=== PATIENT | female | born 1950 | race Caucasian/White ===

== ENCOUNTER 2021-11-22 16:14 | Inpatient (IN) | payer MEDICARE, SELFPAY ==
--- NOTE | ~2021-11-22 | CT_ITS ---
EXAMINATION: CT abdomen pelvis wo con DATE: 11/22/2021 18:43 INDICATION: abd pain TECHNIQUE: Computed tomography (CT) of the abdomen and pelvis was performed without intravenous contr ast. Automated exposure control and iterative reconstruction technique were employed. The dose-length product was 1420.87 mGy-cm. COMPARISON: None. FINDINGS: Lower thorax: Unremarkable Liver: Normal. Biliary/Gallbladder: Cholelithiasis. No bile duct dilation. Pancreas: No mass or duct dilation. Fatty infiltrated. Spleen: Normal. Adrenals:No mass. Kidneys: No mass, stone, or hydronephrosis. Bilateral atrophy and mild perinephric stranding. GI tract: No small or large bowel dilation. Appendix not visualized. Pericolonic inflammatory change with multiple inflamed diverticuli at the hepatic flexure and proximal descending colon. Subtle infla mmatory change involving several diverticuli in the mid sigmoid colon. Mesentery/Peritoneum: No ascites, mass, or free air. Retroperitoneum: No mass. Atherosclerotic abdominal aortic and/or arterial calcifications. Pelvis: Pelvic organs are within normal limits. Soft Tissues: Soft tissues and body wall unremarkable. Bones: No acute osseous finding. IMPRESSION: Acute uncomplicated diverticulitis at the hepatic flexure. A focus of mild, early or resolving divert iculitis may also be present in the mid sigmoid colon. Reviewed, dictated and finalized at [facility]. IMPRESSION: Acute uncomplicated diverticulitis at the hepatic flexure. A focus of mild, ear ly or resolving diverticulitis may also be present in the mid sigmoid colon.
--- NOTE | ~2021-11-22 | XR_ITS ---
EXAMINATION: XR chest 2V DATE: 11/22/2021 17:23 INDICATION: Cough TECHNIQUE: AP and lateral views of the chest are obtained. COMPARISON: 06/21/2011 FINDINGS: The lungs are free of acute opacities. There is no pleural effusion or pneumothorax. The ca rdiomediastinal silhouette is normal. There is moderate thoracic spondylosis. IMPRESSION: 1. No acute cardiopulmonary abnormality. Reviewed, dictated and finalized at location [facility].
[2021-11-22 16:28] VITALS: BP 111/73; PULSE 94; RESP 18; TEMP 36.6; O2SAT 98
[2021-11-22 16:55] LABS: Basophils Percent Auto 0.4 % (0.2-1.2); Eosinophils Absolute Auto 0.1 K/mm3 (0-0.3); Eosinophils Percent Auto 1.3 % (0-4.4); Hematocrit 37.7 % (37.0-47.0); Hemoglobin 12.6 g/dL (12.0-15.0); Immature Granulocyte Absolute 0.07 K/mm3 (0.00-0.031); Immature Granulocyte Percent A 0.9 % (0-0.5); Lymphocytes Absolute Auto 0.24 K/mm3 (0.9-3.2); Lymphocytes Percent Auto 3.2 % (18.3-44.2); Mean Corpuscular HGB Conc 33.4 g/dl (32-36); Mean Corpuscular Hemoglobin 31.2 pg (26-34); Mean Corpuscular Volume 93.3 fl (80-100); Monocytes Percent Auto 12.6 % (2.6-8.5); Neutrophils Absolute Auto 6.2 K/mm3 (1.3-6.7); Neutrophils Percent Auto 81.6 % (45.5-73.1); Platelet Count Result 227 k/mm3 (150-375); Red Blood Count 4.04 M/mm3 (4.2-5.4); Red Cell Distribution Width 12.8 % (11.5-14.5); White Blood Count 7.6 K/mm3 (4.5-10.0)
[2021-11-22 17:07] LABS: Alanine Aminotransferase 27 U/L (6-35); Albumin Level 3.9 g/dL (3.5-5.1); Alkaline Phosphatase 80 U/L (38-126); Anion Gap 13 mmol/L (8-16); Aspartate Amino Transferase 52 U/L (14-36); Bilirubin,Total 0.4 mg/dL (0.2-1.3); Blood Urea Nitrogen 49 mg/dL (7-17); Calcium 8.6 mg/dL (8.4-10.2); Carbon Dioxide 22 mmol/L (22-30); Chloride 99 mmol/L (98-107); Estimated CRCL calculation 17 ml/min; Estimated Glomerular Filt Rate 12; Glucose 89 mg/dL (65-110); Lipase 80 U/L (23-300); Potassium 4.2 mmol/L (3.4-5.0); Sodium 134 mmol/L (137-145)
--- NOTE | 2021-11-22 17:47 | ED.GENADULT ---
HPI - General Adult General Chief complaint: Nausea/Vomiting/Diarrhea Stated complaint: sinus drainage, and diarrhea x 2months Time Seen by Provider: 11/22/21 17:29 Source: RN notes reviewed History of Present Illness HPI narrative: Patient presents emergency room from home for diarrhea. States that she has been having diarrhea for the past 2 months she states she is having proximally 4-5 episodes of loose stools a day. She states that is associated with abdominal cramping patient states here in the emergency department today because over the past several days she has also been having some shortness of breath with exertion she states has been associated with rhinorrhea she denies any fevers or chills ear pain sore throat or any other symptoms patient states she does not take any medication for the diarrhea Related Data Allergies Allergy/AdvReac Type Severity Reaction Status Date / Time No Known Allergies Allergy Mild Verified 11/22/21 19:52 Review of Systems Review of Systems: Gen.: Denies fevers or chills Eyes: Denies eye pain or visual change ENT: Reports rhinorrhea Respiratory: Reports shortness of breath with exertion denies cough CV: Denies chest pain or palpitations GI: Reports abdominal cramping denies nausea, emesis reports diarrhea Musculoskeletal: Denies back pain or muscle pain Neuro: Denies numbness, tingling, weakness or focal weakness Skin: Denies rash Except as documented, all other systems reviewed and negative [facility] Past Medical History Medical History (Updated 11/22/21 @ 19:57 by Jaiden Mendoza DO) Hypertension Family History Family History (Updated 02/13/18 @ 16:14 by DOCTOR UNKNOWN) Other Family history of malignant neoplasm Social History Social History (Updated 11/22/21 @ 17:48 by Jaiden Mendoza DO) Smoking status: Never smoker Exam Narrative: APPEARANCE: No acute distress, nontoxic, resting in bed EYES: EOMI HEENT: Normocephalic, atraumatic, bilateral turbinates boggy erythema exudate posterior pharynx airway patent RESPIRATORY: No respiratory distress Clear to auscultation bilaterally with no rhonchi wheezing or rales. CARDIOVASCULAR: Regular rate and rhythm without murmurs rubs or gallops. ABDOMINAL: Soft, n nondistended tender palpation right upper quadrant right lower quadrant no tenderness in lateral quadrant left lower quadrant no rebound or guarding MUSCULOSKELETAl: Moves all extremities. No clubbing, cyanosis or edema. NEURO: Awake and alert. Following commands, speech normal, no focal deficits SKIN:: Warm, dry. No rashes lesions or abrasions PSYCHIATRIC: Normal affect/mood, Course Course Emergency Course: Discussed with Dr. Butler agrees with admission Discussed with patient and family results of workup and diagnosis. Discussed need for admission. Patient and family understand and agree to current treatment plan Vital Signs Vital signs: Vital Signs Temperature 97.9 F 11/22/21 16:28 Pulse Rate 94 11/22/21 16:28 Respiratory Rate 18 11/22/21 16:28 Blood Pressure 111/73 11/22/21 16:28 Pulse Oximetry 98 11/22/21 16:28 Oxygen Delivery Room Air 11/22/21 16:28 Temperature 97.9 F 11/22/21 16:28 Pulse Rate 95 11/22/21 19:44 Respiratory Rate 18 11/22/21 19:44 Blood Pressure 117/74 11/22/21 19:44 Pulse Oximetry 96 11/22/21 19:44 Oxygen Delivery Room Air 11/22/21 16:28 Medical Decision Making Vital Signs Vital Signs: Vital Signs Temperature 97.9 F 11/22/21 16:28 Pulse Rate 94 11/22/21 16:28 Respiratory Rate 18 11/22/21 16:28 Blood Pressure 111/73 11/22/21 16:28 Pulse Oximetry 98 11/22/21 16:28 Oxygen Delivery Room Air 11/22/21 16:28 Temperature 97.9 F 11/22/21 16:28 Pulse Rate 95 11/22/21 19:44 Respiratory Rate 18 11/22/21 19:44 Blood Pressure 117/74 11/22/21 19:44 Pulse Oximetry 96 11/22/21 19:44 Oxygen Delivery Room Air 11/22/21 16:28 Lab Data Result diagra
--- NOTE | 2021-11-22 17:50 | ECG_ITS ---
Measurements Intervals [place] Rate: 94 P: 25 NH: 181 QRS: 83 QRSD: 86 T: 11 QT: 358 QTc: 449 Interpretive Statements SINUS RHYTHM POSSIBLE ANTERIOR MYOCARDIAL INFARCTION , PROBABLY OLD Electronically Signed On 11-23-2021 10:51:20 CDT by Lico Chambers M.D.
[2021-11-22 17:57] LABS: Appearance Urine Slightly Cloudy (Clear); Bilirubin Urine 2+ (Negative); Blood Urine Negative (Negative); Color Urine Yellow (Yellow); Glucose Urine UA Negative (Negative); Ketones Urine 1+ mg/dL (Negative); Leukocyte Esterase Ur Negative LEU/UL (Negative); Nitrate Urine Negative (Negative); Protein Urine Negative (Negative); Urobilinogen Urine 0.2 mg/dL (<2.0)
[2021-11-22 18:03] LABS: Mucus Urine Rare /lpf; Squamous Epithelial Cell Urine Occasional /hpf (Few); WBC Urine 0-3 /hpf
[2021-11-22 18:06] LABS: Add Urine Microscopic? YES
[2021-11-22] MEDS: SODIUM CHLORIDE 0.9% IV 1,000 ML 999 ML IV CONT (18:09)
[2021-11-22 19:44] VITALS: BP 117/74; PULSE 95; RESP 18; O2SAT 96
[2021-11-22 19:50] LABS: SARS-CoV-2 RNA PCR Positive
[2021-11-22 20:55] VITALS: BMI 40.0
[2021-11-22 21:00] LABS: Thyroid Stimulating Hormone 0.388 uIU/mL (0.465-4.680)
[2021-11-23] VITALS (7 sets, daily range): BP systolic 90–128; BP diastolic 44–79; PULSE 78–97; RESP 16–20; TEMP 36.7–37.6; O2SAT 95–96
[2021-11-23 06:43] LABS: Basophils Percent Auto 0.4 % (0.2-1.2); Eosinophils Percent Auto 0.2 % (0-4.4); Hematocrit 32.1 % (37.0-47.0); Hemoglobin 10.6 g/dL (12.0-15.0); Immature Granulocyte Absolute 0.06 K/mm3 (0.00-0.031); Immature Granulocyte Percent A 1.1 % (0-0.5); Lymphocytes Absolute Auto 0.36 K/mm3 (0.9-3.2); Lymphocytes Percent Auto 6.7 % (18.3-44.2); Mean Corpuscular Hemoglobin 31.3 pg (26-34); Mean Corpuscular Volume 94.7 fl (80-100); Monocytes Absolute Auto 1.2 K/mm3 (0.1-0.6); Monocytes Percent Auto 21.3 % (2.6-8.5); Neutrophils Absolute Auto 3.8 K/mm3 (1.3-6.7); Neutrophils Percent Auto 70.3 % (45.5-73.1); Platelet Count Result 185 k/mm3 (150-375); Red Blood Count 3.39 M/mm3 (4.2-5.4); Red Cell Distribution Width 13.1 % (11.5-14.5); White Blood Count 5.4 K/mm3 (4.5-10.0)
[2021-11-23 06:50] LABS: Alanine Aminotransferase 22 U/L (6-35); Alkaline Phosphatase 62 U/L (38-126); Anion Gap 9 mmol/L (8-16); Aspartate Amino Transferase 38 U/L (14-36); Bilirubin,Total 0.2 mg/dL (0.2-1.3); Blood Urea Nitrogen 46 mg/dL (7-17); Calcium 7.9 mg/dL (8.4-10.2); Carbon Dioxide 21 mmol/L (22-30); Chloride 102 mmol/L (98-107); Estimated CRCL calculation 20 ml/min; Estimated Glomerular Filt Rate 15; Glucose 69 mg/dL (65-110); Potassium 3.9 mmol/L (3.4-5.0); Sodium 132 mmol/L (137-145)
[2021-11-23] MEDS: SODIUM CHLORIDE 0.9% IV 1,000 ML 125 ML IV CONT ×2 (08:44→20:46)
[2021-11-23] MEDS: METOPROLOL TARTRATE 50 MG TAB PO ×2 (09:07→21:13)
[2021-11-23] MEDS: POTASSIUM CHLORIDE 10 MEQ TABLET.ER PO (09:07)
[2021-11-23] MEDS: LEVOTHYROXINE SODIUM 75 MCG TABLET PO (09:08)
[2021-11-23] MEDS: hydroCHLOROthiazide 12.5 MG CAPSULE PO (09:08)
[2021-11-23] MEDS: PANTOPRAZOLE 40 MG TABLET PO ×2 (09:08→21:13)
[2021-11-23] MEDS: OLMESARTAN MEDOXOMIL 20 MG TABLET 40 MG PO (09:08)
--- NOTE | 2021-11-23 16:50 | PM.IMHP ---
H&P: HPI History of Present Illness Date/Time: 11/23/21 16:50 Chief Complaint: abdominal pain and diarrhea Narrative: ED-HPI narrative: Patient presents emergency room from home for diarrhea.? States that she has been having diarrhea for the past 2 months she states she is having proximally 4-5 episodes of loose stools a day.? She states that is associated with abdominal cramping patient states here in the emergency department today because over the past several days she has also been having some shortness of breath with exertion she states has been associated with rhinorrhea she denies any fevers or chills ear pain sore throat or any other symptoms patient states she does not take any medication for the diarrhea CT scan of the abdomen showed diverticulitis patient started on Zosyn, started on clear liquid, will gently hydrate the patient, and pain medication, will continue to monitor as patient's symptoms improved and further recommendation to follow. patient is also positive for COVID-19 patient states this see does not go anywhere, however her roomate nephew came to visit, he was last person she had seen, it seems her symptoms started few days, at rest patient is not requiring any oxygen, however does complain of shortness of breath with exertion, will monitor and place oxygen if needed, will not start dexamethasone at present time, unable to start remdesivir as patient kidney function is poor and her GFR is 20. Will continue to monitor, Review of Systems Review of Systems: Gen.: Denies fevers or chills Eyes: Denies eye pain or visual change ENT: Reports rhinorrhea Respiratory: Reports shortness of breath with exertion denies cough CV: Denies chest pain or palpitations GI: Reports abdominal cramping denies nausea, emesis reports diarrhea Musculoskeletal: Denies back pain or muscle pain Neuro: Denies numbness, tingling, weakness or focal weakness Skin: Denies rash Except as documented, all other systems reviewed and negative [facility] Past Medical History Medical History (Updated 11/22/21 @ 19:57 by Jaiden Mendoza DO) Hypertension Family History Family History (Updated 02/13/18 @ 16:14 by DOCTOR UNKNOWN) Other Family history of malignant neoplasm Social History Social History (Updated 11/22/21 @ 17:48 by Jaiden Mendoza DO) Smoking packs per day: 1 Smoking cigarettes per day: 20.0 Years smoked: 3 Smoking pack-years: 3.00 Smoking status: Former smoker Tobacco type: cigarettes Alcohol intake: never Substance use: never Spiritual care concerns: No Meds Home Medications and Allergies Home Medications Medication Instructions Recorded Confirmed Type esomeprazole magnesium 40 mg 1 cap PO 2XD 11/23/21 11/23/21 History capsule,delayed release (Nexium) levothyroxine 75 mcg tablet 1 tablet PO 1XD 11/23/21 11/23/21 History (Synthroid) metoprolol tartrate 50 mg tablet 1 tablet PO 2XD 11/23/21 11/23/21 History (Lopressor) montelukast 10 mg tablet 1 tablet PO 1XD 11/23/21 11/23/21 History (Singulair) olmesartan 40 1 tablet PO 1XD 11/23/21 11/23/21 History mg-hydrochlorothiazide 12.5 mg tablet (Benicar HCT) potassium chloride 10 mEq 1 tablet PO 1XD 11/23/21 11/23/21 History tablet,extended release (Klor-Con) trazodone 100 mg tablet 2 tablet PO 1XD 11/23/21 11/23/21 History Allergies Allergy/AdvReac Type Severity Reaction Status Date / Time No Known Allergies Allergy Mild Verified 11/22/21 19:52 Vital Signs Vital Signs - 24 hr 11/22/21 19:44 11/23/21 02:30 11/23/21 05:45 Temperature 99.7 F H Pulse Rate 95 91 Respiratory Rate 18 18 Blood Pressure 117/74 128/79 Pulse Oximetry 96 96 95 Oxygen Delivery Room Air 11/23/21 09:07 11/23/21 08:00 11/23/21 14:00 Temperature 98.6 F Pulse Rate 97 80 Respiratory Rate 20 Blood Pressure 113/64 Pulse Oximetry 96 96 Oxygen Delivery Room Air Exam Narrative: morbidly obese P
[2021-11-23] MEDS: MONTELUKAST SODIUM 10 MG TABLET PO (21:13)
[2021-11-23] MEDS: HEPARIN SODIUM 5,000 UNITS/ML VIAL 5000 UNITS SUB-Q (21:13)
[2021-11-23] MEDS: traZODone HCL 50 MG TABLET 200 MG PO (21:13)
[2021-11-24] VITALS (10 sets, daily range): BP systolic 100–153; BP diastolic 49–71; PULSE 66–77; RESP 16–18; TEMP 35.9–37.1; O2SAT 95–98
[2021-11-24] MEDS: LEVOTHYROXINE SODIUM 75 MCG TABLET PO (05:53)
[2021-11-24 06:23] LABS: Hematocrit 31.5 % (37.0-47.0); Hemoglobin 10.3 g/dL (12.0-15.0); Mean Corpuscular HGB Conc 32.7 g/dl (32-36); Mean Corpuscular Hemoglobin 30.8 pg (26-34); Mean Corpuscular Volume 94.3 fl (80-100); Mean Platelet Volume 10.7 fl (7.4-10.4); Platelet Count Result 180 k/mm3 (150-375); Red Blood Count 3.34 M/mm3 (4.2-5.4); Red Cell Distribution Width 12.9 % (11.5-14.5); White Blood Count 4.5 K/mm3 (4.5-10.0)
[2021-11-24 06:46] LABS: Alanine Aminotransferase 22 U/L (6-35); Albumin Level 2.7 g/dL (3.5-5.1); Alkaline Phosphatase 41 U/L (38-126); Anion Gap 8 mmol/L (8-16); Aspartate Amino Transferase 45 U/L (14-36); Bilirubin,Total 0.4 mg/dL (0.2-1.3); Blood Urea Nitrogen 37 mg/dL (7-17); Calcium 7.3 mg/dL (8.4-10.2); Carbon Dioxide 19 mmol/L (22-30); Chloride 104 mmol/L (98-107); Estimated CRCL calculation 23 ml/min; Estimated Glomerular Filt Rate 18; Glucose 67 mg/dL (65-110); Potassium 3.9 mmol/L (3.4-5.0); Sodium 131 mmol/L (137-145)
[2021-11-24] MEDS: METOPROLOL TARTRATE 50 MG TAB PO ×2 (09:04→21:09)
[2021-11-24] MEDS: POTASSIUM CHLORIDE 10 MEQ TABLET.ER PO (09:04)
[2021-11-24] MEDS: PANTOPRAZOLE 40 MG TABLET PO ×2 (09:04→21:02)
[2021-11-24] MEDS: hydroCHLOROthiazide 12.5 MG CAPSULE PO (09:04)
[2021-11-24] MEDS: OLMESARTAN MEDOXOMIL 20 MG TABLET 40 MG PO (09:04)
[2021-11-24] MEDS: SODIUM CHLORIDE 0.9% IV 1,000 ML 125 ML IV CONT ×2 (09:04→18:37)
[2021-11-24] MEDS: HEPARIN SODIUM 5,000 UNITS/ML VIAL 5000 UNITS SUB-Q ×2 (09:04→21:01)
--- NOTE | 2021-11-24 13:00 | PM.IMPN ---
Progress Note: A&P Assessment and Plan (1) Acute renal failure: Code(s): N17.9 - Acute kidney failure, unspecified Status: Acute Assessment and Plan: Patient with JORDAN on chronic kidney disease will monitor and avoid nephro toxin. (2) COVID-19: Code(s): U07.1 - COVID-19 Status: Acute Assessment and Plan: Patient is clinically stable, will monitor (3) Diverticulitis: Code(s): K57.92 - Diverticulitis of intestine, part unspecified, without perforation or abscess without bleeding Status: Acute Assessment and Plan: still having diarrhea. Continue IV Antibiotics (4) Hypertension: Code(s): I10 - Essential (primary) hypertension Status: Acute Assessment and Plan: will continue home medication and monitor . Subjective Date/time seen: 11/24/21 13:00 Still having diarrhea Exam Narrative: morbidly obese Patient is comfortable, NAD HEENT: eyes are clear and none icteric LUNGS: normal respiratory effort ABD: not distended Lower extremities: no edema SKIN: nonjaundiced Neuro: grossly intact. Objective Data Vital Signs Vital Signs: Vital Signs - 24 hr 11/23/21 14:00 11/23/21 21:13 11/23/21 21:25 Temperature 98.6 F 98.0 F Pulse Rate 80 82 78 Respiratory Rate 20 16 Blood Pressure 113/64 90/44 L Pulse Oximetry 96 96 Oxygen Delivery 11/24/21 05:16 11/24/21 07:49 11/24/21 09:04 Temperature 98.0 F 96.9 F L Pulse Rate 73 72 66 Respiratory Rate 16 18 Blood Pressure 100/49 L 124/60 Pulse Oximetry 95 98 Oxygen Delivery 11/24/21 08:00 11/24/21 11:45 Temperature 97.2 F L Pulse Rate 66 69 Respiratory Rate 18 18 Blood Pressure 153/71 H Pulse Oximetry 98 97 Oxygen Delivery Room Air Intake/Output Intake/Output: Intake & Output 11/21/21 11/22/21 11/23/21 11/24/21 23:59 23:59 23:59 23:59 Intake Total 1050 3100 2900 Output Total 300 700 Balance 1050 2800 2200 Meds/Results Medications: Active Medications Generic Name Dose Route Start Last Admin Trade Name Freq PRN Reason Stop Dose Admin Heparin Sodium (Porcine) 5,000 units 11/23/21 21:00 11/24/21 09:04 Heparin Sodium 5,000 Units/Ml Vial SUB-Q 5,000 units Q12HR SOLITARIO Administration Hydrochlorothiazide 12.5 mg 11/23/21 09:00 11/24/21 09:04 Hydrochlorothiazide 12.5 Mg Capsule PO 12.5 mg QAM SOLITARIO Administration Sodium Chloride 1,000 mls @ 125 mls/hr 11/22/21 19:50 11/24/21 09:04 Normal Saline Iv IV CONT 125 mls/hr .Q8H SOLITARIO Administration Piperacillin Sod/Tazobactam Sod 2.25 gm in 50 mls @ 100 mls/hr 11/23/21 04:00 11/24/21 11:56 Zosyn 2.25 Gm/D5w 50 Ml IVPB 100 mls/hr Q8H SOLITARIO Administration Levothyroxine Sodium 75 mcg 11/23/21 06:30 11/24/21 05:53 Levothyroxine Sodium 75 Mcg Tablet PO 75 mcg DAILY@0630 SOLITARIO Administration Metoprolol Tartrate 50 mg 11/23/21 09:00 11/24/21 09:04 Metoprolol Tartrate 50 Mg Tab PO 50 mg Q12HR SOLITARIO Administration Montelukast Sodium 10 mg 11/23/21 21:00 11/23/21 21:13 Montelukast Sodium 10 Mg Tablet PO 10 mg HS SOLITARIO Administration Olmesartan 40 mg 11/23/21 09:00 11/24/21 09:04 Olmesartan Medoxomil 20 Mg Tablet PO 40 mg QAM SOLITARIO Administration Pantoprazole Sodium 40 mg 11/23/21 09:00 11/24/21 09:04 Pantoprazole 40 Mg Tablet PO 40 mg Q12HR SOLITARIO Administration Potassium Chloride 10 meq 11/23/21 08:00 11/24/21 09:04 Potassium Chloride 10 Meq Tablet.Er PO 10 meq DAILY@0800 SOLITARIO Administration Trazodone HCl 200 mg 11/23/21 21:00 11/23/21 21:13 Trazodone Hcl 50 Mg Tablet PO 200 mg HS SOLITARIO Administration Radiology Results: ITS Impressions Chest X-Ray 11/22/21 17:28 IMPRESSION: 1. No acute cardiopulmonary abnormality. Abdomen/Pelvis CT 11/22/21 18:54 IMPRESSION: Acute uncomplicated diverticulitis at the hepatic flexure. A focus of mild, early or resolving diverticulitis may also be prese
[2021-11-24 14:45] LABS: Glucose Point of Care 72 mg/dl (65-105)
--- NOTE | 2021-11-24 15:11 | PC.NURSE ---
poor appetite continue with pt, accucheck 72
[2021-11-24] MEDS: traZODone HCL 50 MG TABLET 200 MG PO (21:02)
[2021-11-24] MEDS: MONTELUKAST SODIUM 10 MG TABLET PO (21:02)
[2021-11-25] VITALS (7 sets, daily range): BP systolic 107–138; BP diastolic 46–74; PULSE 68–88; RESP 16–20; TEMP 36.4–37; O2SAT 97–99
[2021-11-25] MEDS: LEVOTHYROXINE SODIUM 75 MCG TABLET PO (05:43)
[2021-11-25 07:09] LABS: Hematocrit 34.1 % (37.0-47.0); Hemoglobin 11.1 g/dL (12.0-15.0); Mean Corpuscular HGB Conc 32.6 g/dl (32-36); Mean Corpuscular Hemoglobin 30.8 pg (26-34); Mean Corpuscular Volume 94.7 fl (80-100); Mean Platelet Volume 10.8 fl (7.4-10.4); Platelet Count Result 168 k/mm3 (150-375); Red Cell Distribution Width 13.2 % (11.5-14.5); White Blood Count 3.4 K/mm3 (4.5-10.0)
[2021-11-25 07:21] LABS: Alanine Aminotransferase 22 U/L (6-35); Albumin Level 2.8 g/dL (3.5-5.1); Alkaline Phosphatase 51 U/L (38-126); Anion Gap 11 mmol/L (8-16); Aspartate Amino Transferase 44 U/L (14-36); Bilirubin,Total 0.1 mg/dL (0.2-1.3); Blood Urea Nitrogen 24 mg/dL (7-17); Calcium 7.5 mg/dL (8.4-10.2); Carbon Dioxide 16 mmol/L (22-30); Chloride 108 mmol/L (98-107); Estimated CRCL calculation 27 ml/min; Estimated Glomerular Filt Rate 22; Glucose 60 mg/dL (65-110); Potassium 3.5 mmol/L (3.4-5.0); Sodium 135 mmol/L (137-145)
--- NOTE | 2021-11-25 07:27 | PC.NURSE ---
glucose [address], accuchecks started. Juice given. Encourage pt to eat.
[2021-11-25] MEDS: SODIUM CHLORIDE 0.9% IV 1,000 ML 125 ML IV CONT ×2 (07:32→16:09)
--- NOTE | 2021-11-25 07:45 | PC.NURSE ---
accucheck 59, another juice given, MD Lane aware. Continue hypoglycemia protocol.
[2021-11-25 08:07] LABS: Glucose Point of Care 59 mg/dl (65-105)
[2021-11-25] MEDS: hydroCHLOROthiazide 12.5 MG CAPSULE PO (08:11)
[2021-11-25] MEDS: PANTOPRAZOLE 40 MG TABLET PO ×2 (08:11→20:42)
[2021-11-25] MEDS: HEPARIN SODIUM 5,000 UNITS/ML VIAL 5000 UNITS SUB-Q ×2 (08:11→20:42)
[2021-11-25] MEDS: METOPROLOL TARTRATE 50 MG TAB PO ×2 (08:11→20:42)
[2021-11-25] MEDS: OLMESARTAN MEDOXOMIL 20 MG TABLET 40 MG PO (08:11)
[2021-11-25] MEDS: POTASSIUM CHLORIDE 10 MEQ TABLET.ER PO (08:11)
[2021-11-25 08:22] LABS: Glucose Point of Care 80 mg/dl (65-105)
--- NOTE | 2021-11-25 08:23 | PC.NURSE ---
accucheck rechecked 80
[2021-11-25 11:51] LABS: Glucose Point of Care 75 mg/dl (65-105)
--- NOTE | 2021-11-25 12:20 | PM.IMPN ---
Progress Note: A&P Assessment and Plan (1) Acute renal failure: Code(s): N17.9 - Acute kidney failure, unspecified Status: Acute Assessment and Plan: Patient with JORDAN on chronic kidney disease will monitor and avoid nephro toxin. (2) COVID-19: Code(s): U07.1 - COVID-19 Status: Acute Assessment and Plan: Patient is clinically stable, will monitor (3) Diverticulitis: Code(s): K57.92 - Diverticulitis of intestine, part unspecified, without perforation or abscess without bleeding Status: Acute Assessment and Plan: still having diarrhea. Continue IV Antibiotics Possibly related antibiotics. Will start on cholestyramine for diarrhea. (4) Hypertension: Code(s): I10 - Essential (primary) hypertension Status: Acute Assessment and Plan: will continue home medication and monitor . Subjective Date/time seen: 11/25/21 12:20 Abdominal pain improved, still having loose stools. Exam Narrative: morbidly obese Patient is comfortable, NAD HEENT: eyes are clear and none icteric LUNGS: normal respiratory effort ABD: not distended Lower extremities: no edema SKIN: nonjaundiced Neuro: grossly intact. Objective Data Vital Signs Vital Signs: Vital Signs - 24 hr 11/24/21 16:00 11/24/21 20:00 11/24/21 21:09 Temperature 96.7 F L 98.7 F Pulse Rate 74 70 77 Respiratory Rate 16 18 Blood Pressure 138/69 111/51 L Pulse Oximetry 98 98 Oxygen Delivery 11/24/21 20:00 11/24/21 21:00 11/24/21 23:57 Temperature 97.2 F L 98.0 F Pulse Rate 77 66 Respiratory Rate 18 18 Blood Pressure 122/56 L 103/57 L Pulse Oximetry 96 97 Oxygen Delivery Room Air 11/25/21 03:38 11/25/21 08:11 11/25/21 08:00 Temperature 97.7 F 97.6 F Pulse Rate 78 88 88 Respiratory Rate 20 18 Blood Pressure 107/60 121/74 Pulse Oximetry 97 99 Oxygen Delivery 11/25/21 08:00 Temperature Pulse Rate 88 Respiratory Rate 18 Blood Pressure Pulse Oximetry 99 Oxygen Delivery Room Air Intake/Output Intake/Output: Intake & Output 11/22/21 11/23/21 11/24/21 11/25/21 23:59 23:59 23:59 23:59 Intake Total 1050 3100 4762 1520 Output Total 300 700 500 Balance 1050 2800 4062 1020 Meds/Results Medications: Active Medications Generic Name Dose Route Start Last Admin Trade Name Maximo PRN Reason Stop Dose Admin Heparin Sodium (Porcine) 5,000 units 11/23/21 21:00 11/25/21 08:11 Heparin Sodium 5,000 Units/Ml Vial SUB-Q 5,000 units Q12HR SOLITARIO Administration Hydrochlorothiazide 12.5 mg 11/23/21 09:00 11/25/21 08:11 Hydrochlorothiazide 12.5 Mg Capsule PO 12.5 mg QAM SOLITARIO Administration Sodium Chloride 1,000 mls @ 125 mls/hr 11/22/21 19:50 11/25/21 07:32 Normal Saline Iv IV CONT 125 mls/hr .Q8H SOLITARIO Administration Piperacillin Sod/Tazobactam Sod 2.25 gm in 50 mls @ 100 mls/hr 11/23/21 04:00 11/25/21 11:47 Zosyn 2.25 Gm/D5w 50 Ml IVPB 100 mls/hr Q8H SOLITARIO Administration Levothyroxine Sodium 75 mcg 11/23/21 06:30 11/25/21 05:43 Levothyroxine Sodium 75 Mcg Tablet PO 75 mcg DAILY@0630 SOLITARIO Administration Metoprolol Tartrate 50 mg 11/23/21 09:00 11/25/21 08:11 Metoprolol Tartrate 50 Mg Tab PO 50 mg Q12HR SOLITARIO Administration Montelukast Sodium 10 mg 11/23/21 21:00 11/24/21 21:02 Montelukast Sodium 10 Mg Tablet PO 10 mg HS SOLITARIO Administration Olmesartan 40 mg 11/23/21 09:00 11/25/21 08:11 Olmesartan Medoxomil 20 Mg Tablet PO 40 mg QAM SOLITARIO Administration Pantoprazole Sodium 40 mg 11/23/21 09:00 11/25/21 08:11 Pantoprazole 40 Mg Tablet PO 40 mg Q12HR SOLITARIO Administration Potassium Chloride 10 meq 11/23/21 08:00 11/25/21 08:11 Potassium Chloride 10 Meq Tablet.Er PO 10 meq DAILY@0800 SOLITARIO Administration Trazodone HCl 200 mg 11/23/21 21:00 11/24/21 21:02 Trazodone Hcl 50 Mg Tablet PO 200 mg HS SOLITARIO Administration Radiology Results: ITS Impr
--- NOTE | 2021-11-25 14:01 | PCCCNOTE ---
On 11/25/21, the student, [Alyssa Rendon], provided care and completed [facility] documentation on this patient. I have reviewed the student's documentation and agree with the findings.
--- NOTE | 2021-11-25 14:05 | PCCCNOTE ---
On 11/25/21, the student, [Alyssa Rendon], provided care and completed [facility] documentation on this patient. I have reviewed the student's documentation and agree with the findings.
[2021-11-25] MEDS: CHOLESTYRAMINE LIGHT 4 GM POWD.PACK PO (16:09)
[2021-11-25 16:52] LABS: Glucose Point of Care 88 mg/dl (65-105)
[2021-11-25] MEDS: traZODone HCL 50 MG TABLET 200 MG PO (20:42)
[2021-11-25] MEDS: MONTELUKAST SODIUM 10 MG TABLET PO (20:42)
[2021-11-25 21:38] LABS: Glucose Point of Care 92 mg/dl (65-105)
[2021-11-25] MEDS: ACETAMINOPHEN 325 MG TABLET 650 MG PO (22:22)
[2021-11-26] VITALS (9 sets, daily range): BP systolic 109–137; BP diastolic 54–83; PULSE 67–82; RESP 16–18; TEMP 36.1–36.6; O2SAT 97–100; BMI 40.0
[2021-11-26] MEDS: SODIUM CHLORIDE 0.9% IV 1,000 ML 125 ML IV CONT ×2 (05:32→13:41)
[2021-11-26] MEDS: LEVOTHYROXINE SODIUM 75 MCG TABLET PO (05:32)
[2021-11-26 06:39] LABS: Hematocrit 34.3 % (37.0-47.0); Hemoglobin 11.5 g/dL (12.0-15.0); Mean Corpuscular HGB Conc 33.5 g/dl (32-36); Mean Corpuscular Hemoglobin 30.8 pg (26-34); Mean Platelet Volume 10.4 fl (7.4-10.4); Platelet Count Result 170 k/mm3 (150-375); Red Blood Count 3.73 M/mm3 (4.2-5.4); Red Cell Distribution Width 13.2 % (11.5-14.5); White Blood Count 3.2 K/mm3 (4.5-10.0)
[2021-11-26 07:39] LABS: Glucose Point of Care 78 mg/dl (65-105)
[2021-11-26 07:53] LABS: Alanine Aminotransferase 22 U/L (6-35); Albumin Level 2.9 g/dL (3.5-5.1); Alkaline Phosphatase 52 U/L (38-126); Anion Gap 7 mmol/L (8-16); Aspartate Amino Transferase 40 U/L (14-36); Bilirubin,Total 0.2 mg/dL (0.2-1.3); Blood Urea Nitrogen 15 mg/dL (7-17); Calcium 7.2 mg/dL (8.4-10.2); Carbon Dioxide 20 mmol/L (22-30); Chloride 110 mmol/L (98-107); Estimated CRCL calculation 29 ml/min; Estimated Glomerular Filt Rate 24; Glucose 75 mg/dL (65-110); Potassium 3.6 mmol/L (3.4-5.0); Sodium 137 mmol/L (137-145)
[2021-11-26] MEDS: OLMESARTAN MEDOXOMIL 20 MG TABLET 40 MG PO (08:49)
[2021-11-26] MEDS: POTASSIUM CHLORIDE 10 MEQ TABLET.ER PO (08:50)
[2021-11-26] MEDS: HEPARIN SODIUM 5,000 UNITS/ML VIAL 5000 UNITS SUB-Q ×2 (08:50→20:37)
[2021-11-26] MEDS: PANTOPRAZOLE 40 MG TABLET PO ×2 (08:50→20:38)
[2021-11-26] MEDS: METOPROLOL TARTRATE 50 MG TAB PO ×2 (08:50→20:37)
[2021-11-26] MEDS: hydroCHLOROthiazide 12.5 MG CAPSULE PO (08:51)
[2021-11-26] MEDS: CHOLESTYRAMINE LIGHT 4 GM POWD.PACK PO ×2 (09:58→17:23)
--- NOTE | 2021-11-26 11:23 | PM.IMPN ---
Progress Note: A&P Assessment and Plan (1) Acute renal failure: Code(s): N17.9 - Acute kidney failure, unspecified Status: Acute Assessment and Plan: Patient with JORDAN on chronic kidney disease will monitor and avoid nephro toxin. (2) COVID-19: Code(s): U07.1 - COVID-19 Status: Acute Assessment and Plan: Patient is clinically stable, will monitor (3) Diverticulitis: Code(s): K57.92 - Diverticulitis of intestine, part unspecified, without perforation or abscess without bleeding Status: Acute Assessment and Plan: still having diarrhea. Continue IV Antibiotics Possibly related antibiotics, but her diarrhea started prior to this admission P Will start on cholestyramine and Imodium for diarrhea. (4) Hypertension: Code(s): I10 - Essential (primary) hypertension Status: Acute Assessment and Plan: will continue home medication and monitor . Subjective Date/time seen: 11/26/21 11:23 Feeling better but still having loose stools. Tolerating food. No abdominal pain Exam Narrative: morbidly obese Patient is comfortable, NAD HEENT: eyes are clear and none icteric LUNGS: normal respiratory effort ABD: not distended Lower extremities: no edema SKIN: nonjaundiced Neuro: grossly intact. Objective Data Vital Signs Vital Signs: Vital Signs - 24 hr 11/25/21 12:00 11/25/21 16:00 11/25/21 20:42 Temperature 98.6 F 98.1 F Pulse Rate 68 68 70 Respiratory Rate 16 16 Blood Pressure 129/63 138/57 L Pulse Oximetry 98 97 Oxygen Delivery 11/25/21 20:00 11/25/21 20:00 11/26/21 00:00 Temperature 97.8 F 97.8 F Pulse Rate 70 67 Respiratory Rate 18 16 Blood Pressure 122/46 L 117/54 L Pulse Oximetry 98 97 Oxygen Delivery Room Air 11/26/21 04:00 11/26/21 07:50 11/26/21 08:50 Temperature 97.0 F L 97.5 F L Pulse Rate 70 68 68 Respiratory Rate 16 16 Blood Pressure 123/72 137/72 Pulse Oximetry 100 100 Oxygen Delivery 11/26/21 08:51 Temperature Pulse Rate Respiratory Rate 16 Blood Pressure Pulse Oximetry 100 Oxygen Delivery Room Air Intake/Output Intake/Output: Intake & Output 06/28/22 11/24/21 11/25/21 11/26/21 23:59 23:59 23:59 23:59 Intake Total 3100 1083 3330 1170 Output Total 300 700 500 Balance 2800 4062 2830 1170 Meds/Results Medications: Active Medications Generic Name Dose Route Start Last Admin Trade Name Freq PRN Reason Stop Dose Admin Acetaminophen 650 mg 11/25/21 22:12 11/25/21 22:22 Acetaminophen 325 Mg Tablet PO 650 mg Q6H PRN Administration Mild Pain (1-3) or Fever Cholestyramine Resin 4 gm 11/25/21 18:00 11/26/21 09:58 Cholestyramine Light 4 Gm Powd.Pack PO 4 gm BID@1000,1800 SOLITARIO Administration Heparin Sodium (Porcine) 5,000 units 11/23/21 21:00 11/26/21 08:50 Heparin Sodium 5,000 Units/Ml Vial SUB-Q 5,000 units Q12HR SOLITARIO Administration Hydrochlorothiazide 12.5 mg 11/23/21 09:00 11/26/21 08:51 Hydrochlorothiazide 12.5 Mg Capsule PO 12.5 mg QAM SOLITARIO Administration Sodium Chloride 1,000 mls @ 125 mls/hr 11/22/21 19:50 11/26/21 05:32 Normal Saline Iv IV CONT 125 mls/hr .Q8H SOLITARIO Administration Piperacillin Sod/Tazobactam Sod 2.25 gm in 50 mls @ 100 mls/hr 11/23/21 04:00 11/26/21 03:43 Zosyn 2.25 Gm/D5w 50 Ml IVPB Infused Q8H SOLITARIO Infusion Levothyroxine Sodium 75 mcg 11/23/21 06:30 11/26/21 05:32 Levothyroxine Sodium 75 Mcg Tablet PO 75 mcg DAILY@0630 SOLITARIO Administration Loperamide HCl 2 mg 11/26/21 11:23 Loperamide Hcl 2 Mg Capsule PO PRN PRN Diarrhea Metoprolol Tartrate 50 mg 11/23/21 09:00 11/26/21 08:50 Metoprolol Tartrate 50 Mg Tab PO 50 mg Q12HR SOLITARIO Administration Montelukast Sodium 10 mg 11/23/21 21:00 11/25/21 20:42 Montelukast Sodium 10 Mg Tablet PO 10 mg HS SOLITARIO Administration Olmesartan 40 mg 11/23/21 09:00 11/26/21 08:49 Olmesartan Medox
[2021-11-26 11:27] LABS: Glucose Point of Care 88 mg/dl (65-105)
--- NOTE | 2021-11-26 15:30 | PCCCNOTE ---
On 11/26/21, the student, [Alyssa Rendno], provided care and completed [facility] documentation on this patient. I have reviewed the student's documentation and agree with the findings.
[2021-11-26 16:11] LABS: Glucose Point of Care 75 mg/dl (65-105)
[2021-11-26] MEDS: MONTELUKAST SODIUM 10 MG TABLET PO (20:38)
[2021-11-26] MEDS: traZODone HCL 50 MG TABLET 200 MG PO (20:38)
[2021-11-26 21:22] LABS: Glucose Point of Care 96 mg/dl (65-105)
[2021-11-26 21:27] LABS: Toxigenic C. Diff POSITIVE (NEGATIVE)
[2021-11-27] VITALS (9 sets, daily range): BP systolic 127–156; BP diastolic 53–76; PULSE 64–81; RESP 16–18; TEMP 36–36.6; O2SAT 99–100
[2021-11-27] MEDS: VANCOMYCIN ORAL 125 MG/2.5 ML SYRUP PO ×4 (00:46→17:53)
[2021-11-27] MEDS: SODIUM CHLORIDE 0.9% IV 1,000 ML 125 ML IV CONT ×3 (00:46→17:52)
[2021-11-27] MEDS: LEVOTHYROXINE SODIUM 75 MCG TABLET PO (05:32)
[2021-11-27 06:11] LABS: Hematocrit 31.5 % (37.0-47.0); Hemoglobin 10.6 g/dL (12.0-15.0); Mean Corpuscular HGB Conc 33.7 g/dl (32-36); Mean Corpuscular Hemoglobin 30.9 pg (26-34); Mean Corpuscular Volume 91.8 fl (80-100); Mean Platelet Volume 10.5 fl (7.4-10.4); Platelet Count Result 147 k/mm3 (150-375); Red Blood Count 3.43 M/mm3 (4.2-5.4); Red Cell Distribution Width 13.5 % (11.5-14.5); White Blood Count 3.5 K/mm3 (4.5-10.0)
[2021-11-27 06:23] LABS: Alanine Aminotransferase 22 U/L (6-35); Albumin Level 2.4 g/dL (3.5-5.1); Alkaline Phosphatase 45 U/L (38-126); Anion Gap 6 mmol/L (8-16); Aspartate Amino Transferase 48 U/L (14-36); Bilirubin,Total 0.2 mg/dL (0.2-1.3); Blood Urea Nitrogen 9 mg/dL (7-17); Calcium 6.6 mg/dL (8.4-10.2); Carbon Dioxide 17 mmol/L (22-30); Chloride 114 mmol/L (98-107); Estimated CRCL calculation 34 ml/min; Estimated Glomerular Filt Rate 30; Glucose 74 mg/dL (65-110); Potassium 3.4 mmol/L (3.4-5.0); Sodium 137 mmol/L (137-145)
[2021-11-27 07:56] LABS: Glucose Point of Care 61 mg/dl (65-105)
[2021-11-27] MEDS: HEPARIN SODIUM 5,000 UNITS/ML VIAL 5000 UNITS SUB-Q ×2 (08:57→21:55)
[2021-11-27 08:58] LABS: Glucose Point of Care 82 mg/dl (65-105)
[2021-11-27] MEDS: PANTOPRAZOLE 40 MG TABLET PO ×2 (08:58→21:54)
[2021-11-27] MEDS: OLMESARTAN MEDOXOMIL 20 MG TABLET 40 MG PO (08:58)
[2021-11-27] MEDS: METOPROLOL TARTRATE 50 MG TAB PO ×2 (08:58→21:53)
[2021-11-27] MEDS: POTASSIUM CHLORIDE 10 MEQ TABLET.ER PO (08:59)
[2021-11-27] MEDS: hydroCHLOROthiazide 12.5 MG CAPSULE PO (08:59)
--- NOTE | 2021-11-27 09:43 | PCNFU ---
Nutrition Follow-Up Complete: Inadequate oral intake R/T decreased appetite and diverticulitis AEB pt. report and reported intake Goal: Pt. to meet >50% of estimated nutritional needs Patient is progressing towards goal. We will continue current goal. Pt current nutrition is Regular. Last recorded weight is 112.5 kg, no new weight to report. Bowel Motility:+BM reported 11/27-still having diarrhea Labs Reviewed:Cr 1.7,Alb 2.4,Hct 31.5,Hgb 10.6 Meds Noted: Protonix, KCL, Vancomycin, Heparin, Synthroid, Lopressor, Zosyn. Skin: WNL Additional Notes: Patient called today due to COVID 19 precautions. Patient states to tolerating clear liquid diet. She continues to have diarrhea, called for MD byrnes plus orders TID for stool bulking. Agree with diet orders. Monitoring: Will monitor labs, medication, wt, and reported intake every 3 days
[2021-11-27 11:50] LABS: Glucose Point of Care 80 mg/dl (65-105)
--- NOTE | 2021-11-27 12:29 | PM.IMPN ---
Progress Note: A&P Assessment and Plan (1) Acute renal failure: Code(s): N17.9 - Acute kidney failure, unspecified Status: Acute Assessment and Plan: Improving (2) COVID-19: Code(s): U07.1 - COVID-19 Status: Acute Assessment and Plan: Patient is clinically stable from a respiratory standpoint, will monitor (3) Diverticulitis: Code(s): K57.92 - Diverticulitis of intestine, part unspecified, without perforation or abscess without bleeding Status: Acute Assessment and Plan: still having diarrhea. Continue IV Antibiotics Possibly related antibiotics, but her diarrhea started prior to this admission P Will start on cholestyramine Positive C diff. Oral vanc (4) Hypertension: Code(s): I10 - Essential (primary) hypertension Status: Acute Assessment and Plan: will continue home medication and monitor . (5) C. difficile colitis: Code(s): A04.72 - Enterocolitis due to Clostridium difficile, not specified as recurrent Status: Acute Assessment and Plan: Oral vanc Subjective Date/time seen: 11/27/21 12:29 Still having diarrhea Exam Narrative: morbidly obese Patient is comfortable, NAD HEENT: eyes are clear and none icteric LUNGS: normal respiratory effort ABD: not distended Lower extremities: no edema SKIN: nonjaundiced Neuro: grossly intact. Objective Data Vital Signs Vital Signs: Vital Signs - 24 hr 11/26/21 15:55 11/26/21 20:37 11/26/21 20:00 Temperature 97.1 F L 97.6 F Pulse Rate 70 70 82 Respiratory Rate 16 18 Blood Pressure 136/83 129/72 Pulse Oximetry 100 99 Oxygen Delivery 11/26/21 20:00 11/27/21 00:00 11/27/21 03:57 Temperature 97.9 F 97.3 F L Pulse Rate 70 74 64 Respiratory Rate 18 18 16 Blood Pressure 156/72 H 150/66 H Pulse Oximetry 99 99 99 Oxygen Delivery Room Air 11/27/21 08:00 11/27/21 08:58 11/27/21 08:59 Temperature 98 F Pulse Rate 69 72 Respiratory Rate 16 16 Blood Pressure 127/53 L Pulse Oximetry 99 99 Oxygen Delivery Room Air 11/27/21 12:00 Temperature 97.8 F Pulse Rate 68 Respiratory Rate 16 Blood Pressure 127/73 Pulse Oximetry 100 Oxygen Delivery Intake/Output Intake/Output: Intake & Output 11/24/21 11/25/21 11/26/21 11/27/21 23:59 23:59 23:59 23:59 Intake Total 4762 3330 3870 1350 Output Total 700 500 700 850 Balance 4062 2830 3170 500 Meds/Results Medications: Active Medications Generic Name Dose Route Start Last Admin Trade Name Freq PRN Reason Stop Dose Admin Acetaminophen 650 mg 11/25/21 22:12 11/25/21 22:22 Acetaminophen 325 Mg Tablet PO 650 mg Q6H PRN Administration Mild Pain (1-3) or Fever Cholestyramine Resin 4 gm 11/25/21 18:00 11/27/21 09:07 Cholestyramine Light 4 Gm Powd.Pack PO Not Given BID@1000,1800 SOLITARIO Heparin Sodium (Porcine) 5,000 units 11/23/21 21:00 11/27/21 08:57 Heparin Sodium 5,000 Units/Ml Vial SUB-Q 5,000 units Q12HR SOLITARIO Administration Hydrochlorothiazide 12.5 mg 11/23/21 09:00 11/27/21 08:59 Hydrochlorothiazide 12.5 Mg Capsule PO 12.5 mg QAM SOLITARIO Administration Sodium Chloride 1,000 mls @ 125 mls/hr 11/22/21 19:50 11/27/21 12:09 Normal Saline Iv IV CONT 0 mls/hr .Q8H SOLITARIO Infusion Piperacillin Sod/Tazobactam Sod 2.25 gm in 50 mls @ 100 mls/hr 11/23/21 04:00 11/27/21 12:09 Zosyn 2.25 Gm/D5w 50 Ml IVPB 100 mls/hr Q8H SOLITARIO Administration Levothyroxine Sodium 75 mcg 11/23/21 06:30 11/27/21 05:32 Levothyroxine Sodium 75 Mcg Tablet PO 75 mcg DAILY@0630 SOLITARIO Administration Metoprolol Tartrate 50 mg 11/23/21 09:00 11/27/21 08:58 Metoprolol Tartrate 50 Mg Tab PO 50 mg Q12HR SOLITARIO Administration Montelukast Sodium 10 mg 11/23/21 21:00 11/26/21 20:38 Montelukast Sodium 10 Mg Tablet PO 10 mg HS SOLITARIO Administration Olmesartan 40 mg 11/23/21 09:00 11/27/21 08:58 Olmesartan Medoxomil 20 Mg Tablet P
[2021-11-27 16:38] LABS: Glucose Point of Care 99 mg/dl (65-105)
[2021-11-27] MEDS: traZODone HCL 50 MG TABLET 200 MG PO (21:55)
[2021-11-27] MEDS: MONTELUKAST SODIUM 10 MG TABLET PO (21:57)
[2021-11-28] VITALS (10 sets, daily range): BP systolic 127–144; BP diastolic 60–82; PULSE 59–69; RESP 16–20; TEMP 36.1–36.7; O2SAT 98–100
[2021-11-28] MEDS: VANCOMYCIN ORAL 125 MG/2.5 ML SYRUP PO ×4 (00:42→17:27)
[2021-11-28] MEDS: ACETAMINOPHEN 325 MG TABLET 650 MG PO (00:49)
[2021-11-28] MEDS: SODIUM CHLORIDE 0.9% IV 1,000 ML 125 ML IV CONT (02:01)
[2021-11-28] MEDS: LEVOTHYROXINE SODIUM 75 MCG TABLET PO (06:11)
[2021-11-28 06:32] LABS: Hematocrit 31.3 % (37.0-47.0); Hemoglobin 10.9 g/dL (12.0-15.0); Mean Corpuscular HGB Conc 34.8 g/dl (32-36); Mean Corpuscular Hemoglobin 31.3 pg (26-34); Mean Corpuscular Volume 89.9 fl (80-100); Mean Platelet Volume 10.6 fl (7.4-10.4); Platelet Count Result 150 k/mm3 (150-375); Red Blood Count 3.48 M/mm3 (4.2-5.4); Red Cell Distribution Width 13.9 % (11.5-14.5); White Blood Count 3.8 K/mm3 (4.5-10.0)
[2021-11-28 06:42] LABS: Alanine Aminotransferase 42 U/L (6-35); Albumin Level 2.8 g/dL (3.5-5.1); Alkaline Phosphatase 53 U/L (38-126); Anion Gap 6 mmol/L (8-16); Aspartate Amino Transferase 101 U/L (14-36); Bilirubin,Total 0.3 mg/dL (0.2-1.3); Blood Urea Nitrogen 6 mg/dL (7-17); Calcium 6.5 mg/dL (8.4-10.2); Carbon Dioxide 19 mmol/L (22-30); Chloride 115 mmol/L (98-107); Estimated CRCL calculation 39 ml/min; Estimated Glomerular Filt Rate 34; Glucose 80 mg/dL (65-110); Potassium 3.5 mmol/L (3.4-5.0); Sodium 140 mmol/L (137-145)
[2021-11-28 08:19] LABS: Glucose Point of Care 79 mg/dl (65-105)
[2021-11-28] MEDS: METOPROLOL TARTRATE 50 MG TAB PO ×2 (08:33→20:05)
[2021-11-28] MEDS: PANTOPRAZOLE 40 MG TABLET PO ×2 (08:33→20:05)
[2021-11-28] MEDS: hydroCHLOROthiazide 12.5 MG CAPSULE PO (08:33)
[2021-11-28] MEDS: POTASSIUM CHLORIDE 10 MEQ TABLET.ER PO (08:34)
[2021-11-28] MEDS: HEPARIN SODIUM 5,000 UNITS/ML VIAL 5000 UNITS SUB-Q ×2 (08:34→20:05)
[2021-11-28] MEDS: OLMESARTAN MEDOXOMIL 20 MG TABLET 40 MG PO (08:34)
--- NOTE | 2021-11-28 10:53 | PM.IMPN ---
Progress Note: A&P Assessment and Plan (1) Acute renal failure: Code(s): N17.9 - Acute kidney failure, unspecified Status: Acute Assessment and Plan: Improving (2) COVID-19: Code(s): U07.1 - COVID-19 Status: Acute Assessment and Plan: Patient is clinically stable from a respiratory standpoint, will monitor (3) Diverticulitis: Code(s): K57.92 - Diverticulitis of intestine, part unspecified, without perforation or abscess without bleeding Status: Acute Assessment and Plan: still having diarrhea. Continue IV Antibiotics Possibly related antibiotics, but her diarrhea started prior to this admission P Will start on cholestyramine Positive C diff. Oral vanc (4) Hypertension: Code(s): I10 - Essential (primary) hypertension Status: Acute Assessment and Plan: will continue home medication and monitor . (5) C. difficile colitis: Code(s): A04.72 - Enterocolitis due to Clostridium difficile, not specified as recurrent Status: Acute Assessment and Plan: Oral vanc Subjective Date/time seen: 11/28/21 10:53 diarrhea is improving. Exam Narrative: morbidly obese Patient is comfortable, NAD HEENT: eyes are clear and none icteric LUNGS: normal respiratory effort ABD: not distended Lower extremities: no edema SKIN: nonjaundiced Neuro: grossly intact. Objective Data Vital Signs Vital Signs: Vital Signs - 24 hr 11/27/21 12:00 11/27/21 16:00 11/27/21 20:00 Temperature 97.8 F 97.7 F 96.8 F L Pulse Rate 68 72 81 Respiratory Rate 16 16 18 Blood Pressure 127/73 146/76 H 145/60 H Pulse Oximetry 100 100 100 Oxygen Delivery 11/27/21 21:53 11/27/21 20:00 11/28/21 00:00 Temperature 97.2 F L Pulse Rate 81 81 66 Respiratory Rate 18 16 Blood Pressure 130/64 Pulse Oximetry 100 98 Oxygen Delivery Room Air 11/28/21 04:00 11/28/21 08:00 11/28/21 08:33 Temperature 97 F L 97.2 F L Pulse Rate 64 63 64 Respiratory Rate 18 20 Blood Pressure 127/61 134/67 Pulse Oximetry 99 100 Oxygen Delivery Intake/Output Intake/Output: Intake & Output 11/25/21 11/26/21 11/27/2122 23:59 23:59 23:59 23:59 Intake Total 3330 3870 2700 1150 Output Total 500 700 850 Balance 2830 3170 1850 1150 Meds/Results Medications: Active Medications Generic Name Dose Route Start Last Admin Trade Name Freq PRN Reason Stop Dose Admin Acetaminophen 650 mg 11/25/21 22:12 11/28/21 00:49 Acetaminophen 325 Mg Tablet PO 650 mg Q6H PRN Administration Mild Pain (1-3) or Fever Heparin Sodium (Porcine) 5,000 units 11/23/21 21:00 11/28/21 08:34 Heparin Sodium 5,000 Units/Ml Vial SUB-Q 5,000 units Q12HR SOLITARIO Administration Hydrochlorothiazide 12.5 mg 11/23/21 09:00 11/28/21 08:33 Hydrochlorothiazide 12.5 Mg Capsule PO 12.5 mg QAM SOLITARIO Administration Sodium Chloride 1,000 mls @ 50 mls/hr 11/22/21 19:50 11/28/21 08:32 Normal Saline Iv IV CONT 50 mls/hr .Q20H SOLITARIO Infusion Levothyroxine Sodium 75 mcg 11/23/21 06:30 11/28/21 06:11 Levothyroxine Sodium 75 Mcg Tablet PO 75 mcg DAILY@0630 SOLITARIO Administration Metoprolol Tartrate 50 mg 11/23/21 09:00 11/28/21 08:33 Metoprolol Tartrate 50 Mg Tab PO 50 mg Q12HR SOLITARIO Administration Montelukast Sodium 10 mg 11/23/21 21:00 11/27/21 21:57 Montelukast Sodium 10 Mg Tablet PO 10 mg HS SOLITARIO Administration Olmesartan 40 mg 11/23/21 09:00 11/28/21 08:34 Olmesartan Medoxomil 20 Mg Tablet PO 40 mg QAM SOLITARIO Administration Pantoprazole Sodium 40 mg 11/23/21 09:00 11/28/21 08:33 Pantoprazole 40 Mg Tablet PO 40 mg Q12HR SOLITARIO Administration Potassium Chloride 10 meq 11/23/21 08:00 11/28/21 08:34 Potassium Chloride 10 Meq Tablet.Er PO 10 meq DAILY@0800 SOLITARIO Administration Trazodone HCl 200 mg 11/23/21 21:00 11/27/21 21:55 Trazodone Hcl 50 Mg Tablet PO 200 mg HS SOLITARIO Administ
[2021-11-28 11:45] LABS: Glucose Point of Care 101 mg/dl (65-105)
[2021-11-28] MEDS: SODIUM CHLORIDE 0.9% IV 1,000 ML 50 ML IV CONT (12:12)
[2021-11-28 16:27] LABS: Glucose Point of Care 113 mg/dl (65-105)
[2021-11-28] MEDS: MONTELUKAST SODIUM 10 MG TABLET PO (20:05)
[2021-11-28] MEDS: traZODone HCL 50 MG TABLET 200 MG PO (20:09)
[2021-11-28 20:54] LABS: Glucose Point of Care 105 mg/dl (65-105)
[2021-11-29] VITALS (8 sets, daily range): BP systolic 106–149; BP diastolic 51–79; PULSE 63–74; RESP 14–20; TEMP 36–36.6; O2SAT 96–99
[2021-11-29] MEDS: VANCOMYCIN ORAL 125 MG/2.5 ML SYRUP PO ×4 (00:20→17:40)
[2021-11-29] MEDS: MELATONIN 5 MG TABLET 10 MG PO ×2 (01:30→21:11)
[2021-11-29] MEDS: LEVOTHYROXINE SODIUM 75 MCG TABLET PO (06:24)
[2021-11-29 07:24] LABS: Hematocrit 29.5 % (37.0-47.0); Hemoglobin 10.1 g/dL (12.0-15.0); Immature Platelet Fraction Pct 5.7 % (0.9-11.2); Mean Corpuscular HGB Conc 34.2 g/dl (32-36); Mean Corpuscular Hemoglobin 30.8 pg (26-34); Mean Corpuscular Volume 89.9 fl (80-100); Mean Platelet Volume 10.8 fl (7.4-10.4); Platelet Count Result 127 k/mm3 (150-375); Red Blood Count 3.28 M/mm3 (4.2-5.4); Red Cell Distribution Width 14.1 % (11.5-14.5); White Blood Count 4.1 K/mm3 (4.5-10.0)
[2021-11-29 07:31] LABS: Alanine Aminotransferase 43 U/L (6-35); Albumin Level 2.4 g/dL (3.5-5.1); Alkaline Phosphatase 46 U/L (38-126); Anion Gap 3 mmol/L (8-16); Aspartate Amino Transferase 69 U/L (14-36); Bilirubin,Total 0.3 mg/dL (0.2-1.3); Blood Urea Nitrogen 5 mg/dL (7-17); Calcium 6.1 mg/dL (8.4-10.2); Carbon Dioxide 19 mmol/L (22-30); Chloride 115 mmol/L (98-107); Estimated CRCL calculation 42 ml/min; Estimated Glomerular Filt Rate 37; Glucose 81 mg/dL (65-110); Potassium 3.5 mmol/L (3.4-5.0); Sodium 137 mmol/L (137-145)
[2021-11-29 08:06] LABS: Glucose Point of Care 86 mg/dl (65-105)
[2021-11-29] MEDS: SODIUM CHLORIDE 0.9% IV 1,000 ML 50 ML IV CONT (08:20)
[2021-11-29] MEDS: HEPARIN SODIUM 5,000 UNITS/ML VIAL 5000 UNITS SUB-Q ×2 (08:20→21:11)
[2021-11-29] MEDS: OLMESARTAN MEDOXOMIL 20 MG TABLET 40 MG PO (08:20)
[2021-11-29] MEDS: PANTOPRAZOLE 40 MG TABLET PO ×2 (08:20→21:11)
[2021-11-29] MEDS: METOPROLOL TARTRATE 50 MG TAB PO ×2 (08:20→21:11)
[2021-11-29] MEDS: POTASSIUM CHLORIDE 10 MEQ TABLET.ER PO (08:20)
[2021-11-29] MEDS: hydroCHLOROthiazide 12.5 MG CAPSULE PO (08:20)
[2021-11-29 11:34] LABS: Glucose Point of Care 101 mg/dl (65-105)
[2021-11-29] MEDS: ONDANSETRON INJ 4 MG/2 ML VIAL IV PUSH ×2 (11:52→17:40)
--- NOTE | 2021-11-29 13:00 | PM.IMPN ---
Progress Note: A&P Assessment and Plan (1) Acute renal failure: Code(s): N17.9 - Acute kidney failure, unspecified Status: Acute Assessment and Plan: Improving Secondary dehydration, continue IV fluids (2) COVID-19: Code(s): U07.1 - COVID-19 Status: Acute Assessment and Plan: Patient is clinically stable from a respiratory standpoint, will monitor (3) Diverticulitis: Code(s): K57.92 - Diverticulitis of intestine, part unspecified, without perforation or abscess without bleeding Status: Acute Assessment and Plan: still having diarrhea. Status post 4 days of Zosyn. That her C diff came back positive. Given the chronicity of her diarrhea and felt this was likely cause of her GI issues. Switched her to oral vanc 2 days ago. Was doing better yesterday now having loose watery stools again. Will Consul GI Continue cholestyramine (4) Hypertension: Code(s): I10 - Essential (primary) hypertension Status: Acute Assessment and Plan: will continue home medication and monitor . (5) C. difficile colitis: Code(s): A04.72 - Enterocolitis due to Clostridium difficile, not specified as recurrent Status: Acute Assessment and Plan: Oral vanc See additional plan above Subjective Date/time seen: 11/29/21 13:00 Was doing better yesterday however today she still having loose watery stools. Abdominal pain is slightly better. Exam Narrative: morbidly obese Patient is comfortable, NAD HEENT: eyes are clear and none icteric LUNGS: normal respiratory effort ABD: not distended Lower extremities: no edema SKIN: nonjaundiced Neuro: grossly intact. Objective Data Vital Signs Vital Signs: Vital Signs - 24 hr 11/28/21 16:00 11/28/21 14:30 11/28/21 20:05 Temperature 98.0 F Pulse Rate 69 69 Respiratory Rate 20 Blood Pressure 129/62 Pulse Oximetry 99 99 Oxygen Delivery Room Air 11/28/21 20:00 11/28/21 20:00 11/29/21 00:00 Temperature 97.7 F 97.6 F Pulse Rate 68 69 67 Respiratory Rate 18 18 20 Blood Pressure 143/60 H 149/78 H Pulse Oximetry 98 98 99 Oxygen Delivery Room Air 11/29/21 04:00 11/29/21 08:00 Temperature 97 F L 97.8 F Pulse Rate 67 65 Respiratory Rate 18 14 Blood Pressure 149/68 H 147/79 H Pulse Oximetry 97 98 Oxygen Delivery Intake/Output Intake/Output: Intake & Output 11/26/21 11/27/21 11/28/21 11/29/21 23:59 23:59 23:59 23:59 Intake Total 3870 2700 3110 1150 Output Total 700 850 900 Balance 3170 1850 2210 1150 Meds/Results Medications: Active Medications Generic Name Dose Route Start Last Admin Trade Name Freq PRN Reason Stop Dose Admin Acetaminophen 650 mg 11/25/21 22:12 11/28/21 00:49 Acetaminophen 325 Mg Tablet PO 650 mg Q6H PRN Administration Mild Pain (1-3) or Fever Heparin Sodium (Porcine) 5,000 units 11/23/21 21:00 11/29/21 08:20 Heparin Sodium 5,000 Units/Ml Vial SUB-Q 5,000 units Q12HR SOLITARIO Administration Hydrochlorothiazide 12.5 mg 11/23/21 09:00 11/29/21 08:20 Hydrochlorothiazide 12.5 Mg Capsule PO 12.5 mg QAM SOLITARIO Administration Sodium Chloride 1,000 mls @ 50 mls/hr 11/22/21 19:50 11/29/21 08:22 Normal Saline Iv IV CONT Not Given .Q20H SOLITARIO Levothyroxine Sodium 75 mcg 11/23/21 06:30 11/29/21 06:24 Levothyroxine Sodium 75 Mcg Tablet PO 75 mcg DAILY@0630 SOLITARIO Administration Melatonin 10 mg 11/29/21 01:15 11/29/21 01:30 Melatonin 5 Mg Tablet PO 10 mg HS SOLITARIO Administration Metoprolol Tartrate 50 mg 11/23/21 09:00 11/29/21 08:20 Metoprolol Tartrate 50 Mg Tab PO 50 mg Q12HR SOLITARIO Administration Montelukast Sodium 10 mg 11/23/21 21:00 11/28/21 20:05 Montelukast Sodium 10 Mg Tablet PO 10 mg HS SOLITARIO Administration Olmesartan 40 mg 11/23/21 09:00 11/29/21 08:20 Olmesartan Medoxomil 20 Mg Tablet PO 40 mg QAM SOLITARIO Administration Ondansetron HCl 4 mg 11/29/21
[2021-11-29 16:59] LABS: Glucose Point of Care 101 mg/dl (65-105)
[2021-11-29] MEDS: traZODone HCL 50 MG TABLET 200 MG PO (21:11)
[2021-11-29] MEDS: MONTELUKAST SODIUM 10 MG TABLET PO (21:11)
[2021-11-29 21:28] LABS: Glucose Point of Care 104 mg/dl (65-105)
[2021-11-29] MEDS: PHENYLEPHRINE HCL/COCOA BUTTER SUPP.RECT (*BKC) 1 SUPP RECTAL (21:42)
[2021-11-29] MEDS: WITCH HAZEL 40 PADS 1 PAD TOPICAL (21:42)
[2021-11-30] MEDS: VANCOMYCIN ORAL 125 MG/2.5 ML SYRUP PO ×3 (00:27→13:11)
[2021-11-30 05:55] VITALS: BP 138/53; PULSE 70; RESP 16; TEMP 36.5; O2SAT 98
[2021-11-30] MEDS: LEVOTHYROXINE SODIUM 75 MCG TABLET PO (06:02)
[2021-11-30] MEDS: SODIUM CHLORIDE 0.9% IV 1,000 ML 50 ML IV CONT (06:06)
--- NOTE | 2021-11-30 07:28 | WPDGICN ---
Assessment and Plan Assessment and plan (1) Diarrhea: Code(s): R19.7 - Diarrhea, unspecified Status: Acute Assessment and Plan: for 2 months but improved now after started on vancomycin (2) Diverticulitis: Code(s): K57.92 - Diverticulitis of intestine, part unspecified, without perforation or abscess without bleeding Status: Acute Assessment and Plan: already treated, no abdominal pain and normal wbc last colonoscopy about 8 years ago, she does not want to get another one as outpatient (if she changes her mind then always can call office) (3) COVID-19: Code(s): U07.1 - COVID-19 Status: Acute Assessment and Plan: no acute issues, on isolation (4) Acute renal failure: Code(s): N17.9 - Acute kidney failure, unspecified Status: Acute Assessment and Plan: resolved after treatment (5) C. difficile colitis: Code(s): A04.72 - Enterocolitis due to Clostridium difficile, not specified as recurrent Status: Acute Assessment and Plan: cause of diarrhea now on vancomycin, denies any more diarrhea GI Consult Note Consult date/time: 11/30/21 07:28 Reason for consult: diarrhea, C diff HPI: Melissa Tom is a 71 year old female with 2 months of diarrhea that started after she took antibiotics for persistent cough, since with 4-6 loose stools daily. Finally she came to ER because feeling weaker. CT scan reviewed and showed acute uncomplicated diverticulitis at the hepatic flexure treated with antibiotics, no much of pain. Also positive for COVID. She came in with JORDAN, creatinine 3.6 but down to 1.5 after medical treatment. Recent stool also positive for C diff, she was started on oral vancomycin and now doing much better, no more diarrhea in fact no BM today. She never had C diff before. She had colonoscopies x4, last one about 8 years ago Review of Systems Review of Systems: Gen.: Denies fevers or chills Eyes: Denies eye pain or visual change ENT: Reports rhinorrhea Respiratory: Reports shortness of breath with exertion denies cough CV: Denies chest pain or palpitations GI: Reports abdominal cramping denies nausea, emesis reports diarrhea Musculoskeletal: Denies back pain or muscle pain Neuro: Denies numbness, tingling, weakness or focal weakness Skin: Denies rash Except as documented, all other systems reviewed and negative [facility] Past Medical History Medical History (Updated 11/30/21 @ 08:24 by Morales Collins MD) Diarrhea Hypertension Family History Family History (Updated 02/13/18 @ 16:14 by DOCTOR UNKNOWN) Other Family history of malignant neoplasm Social History Social History (Updated 11/22/21 @ 17:48 by Jaiden Mendoza DO) Smoking packs per day: 1 Smoking cigarettes per day: 20.0 Years smoked: 3 Smoking pack-years: 3.00 Smoking status: Former smoker Tobacco type: cigarettes Alcohol intake: never Substance use: never Spiritual care concerns: No Meds Home Medications and Allergies Home Medications Medication Instructions Recorded Confirmed Type esomeprazole magnesium 40 mg 1 cap PO 2XD 11/23/21 11/23/21 History capsule,delayed release (Nexium) levothyroxine 75 mcg tablet 1 tablet PO 1XD 11/23/21 11/23/21 History (Synthroid) metoprolol tartrate 50 mg tablet 1 tablet PO 2XD 11/23/21 11/23/21 History (Lopressor) montelukast 10 mg tablet 1 tablet PO 1XD 11/23/21 11/23/21 History (Singulair) olmesartan 40 1 tablet PO 1XD 11/23/21 11/23/21 History mg-hydrochlorothiazide 12.5 mg tablet (Benicar HCT) potassium chloride 10 mEq 1 tablet PO 1XD 11/23/21 11/23/21 History tablet,extended release (Klor-Con) trazodone 100 mg tablet 2 tablet PO 1XD 11/23/21 11/23/21 History Allergies Allergy/AdvReac Type Severity Reaction Status Date / Time No Known Allergies Allergy Mild Verified 11/22/21 19:52 Vital Signs Vital Signs - 24 hr 07/0
[2021-11-30 07:41] LABS: Hematocrit 30.1 % (37.0-47.0); Hemoglobin 9.9 g/dL (12.0-15.0); Immature Platelet Fraction Pct 8.2 % (0.9-11.2); Mean Corpuscular HGB Conc 32.9 g/dl (32-36); Mean Corpuscular Hemoglobin 30.8 pg (26-34); Mean Corpuscular Volume 93.8 fl (80-100); Mean Platelet Volume 11.3 fl (7.4-10.4); Platelet Count Result 133 k/mm3 (150-375); Red Blood Count 3.21 M/mm3 (4.2-5.4); Red Cell Distribution Width 14.6 % (11.5-14.5); White Blood Count 4.5 K/mm3 (4.5-10.0)
[2021-11-30 07:46] LABS: Alanine Aminotransferase 40 U/L (6-35); Albumin Level 2.5 g/dL (3.5-5.1); Alkaline Phosphatase 47 U/L (38-126); Anion Gap 4 mmol/L (8-16); Aspartate Amino Transferase 49 U/L (14-36); Bilirubin,Total 0.2 mg/dL (0.2-1.3); Blood Urea Nitrogen 4 mg/dL (7-17); Calcium 6.1 mg/dL (8.4-10.2); Carbon Dioxide 22 mmol/L (22-30); Chloride 114 mmol/L (98-107); Estimated CRCL calculation 39 ml/min; Estimated Glomerular Filt Rate 34; Glucose 84 mg/dL (65-110); Potassium 3.7 mmol/L (3.4-5.0); Sodium 140 mmol/L (137-145)
[2021-11-30 07:48] LABS: Glucose Point of Care 86 mg/dl (65-105)
[2021-11-30 08:00] VITALS: BP 149/71; PULSE 65; RESP 16; TEMP 36.1; O2SAT 100
[2021-11-30] MEDS: METOPROLOL TARTRATE 50 MG TAB PO (09:15)
[2021-11-30] MEDS: POTASSIUM CHLORIDE 10 MEQ TABLET.ER PO (09:15)
[2021-11-30] MEDS: hydroCHLOROthiazide 12.5 MG CAPSULE PO (09:16)
[2021-11-30] MEDS: PHENYLEPHRINE HCL/COCOA BUTTER SUPP.RECT (*BKC) 1 SUPP RECTAL (09:16)
[2021-11-30] MEDS: PANTOPRAZOLE 40 MG TABLET PO (09:16)
[2021-11-30] MEDS: OLMESARTAN MEDOXOMIL 20 MG TABLET 40 MG PO (09:16)
[2021-11-30] MEDS: HEPARIN SODIUM 5,000 UNITS/ML VIAL 5000 UNITS SUB-Q (09:16)
[2021-11-30 11:44] LABS: Glucose Point of Care 115 mg/dl (65-105)
[2021-11-30 11:45] VITALS: BP 138/68; PULSE 82; RESP 16; TEMP 36.2; O2SAT 99
--- NOTE | 2021-11-30 12:30 | PM.DS ---
DS: Admitting Diagnosis Discharge Date November 30, 2021 Admitting Diagnosis C diff DS: Discharge Diagnosis Discharge Diagnosis (1) Acute renal failure: Code(s): N17.9 - Acute kidney failure, unspecified Status: Acute Assessment and Plan: Now resolving. (2) COVID-19: Code(s): U07.1 - COVID-19 Status: Acute Assessment and Plan: No respiratory complaints. No treatment was necessary in the hospital. (3) Diverticulitis: Code(s): K57.92 - Diverticulitis of intestine, part unspecified, without perforation or abscess without bleeding Status: Acute Assessment and Plan: Reason for admission. Initially this was thought to be diverticulitis patient started on antibiotics. However she had ongoing diarrhea after further evaluation she had chronic diarrhea for past 2 months. C diff was checked and was positive was started on oral vancomycin stopped her antibiotics and she did exceptionally well. She has had no diarrhea for the last 12-14 hr. She will be sent home on oral vancomycin. (4) Hypertension: Code(s): I10 - Essential (primary) hypertension Status: Acute Assessment and Plan: Continue home meds (5) C. difficile colitis: Code(s): A04.72 - Enterocolitis due to Clostridium difficile, not specified as recurrent Status: Acute Assessment and Plan: Oral vanc 10 days total DS: Summary Hospital Course Hospital Course: See discharge planning diagnoses Time Spent with Patient Time attestation: Total time spent providing and/or coordinating discharge services: DS: Data Data Completed and Pending Labs on day of discharge: Labs from last 24 hours 11/30/21 11/30/21 11/30/21 11:35 07:40 07:18 WBC RBC Hgb Hct MCV MCH MCHC RDW Plt Count MPV % Immature Plt Fraction Sodium 140 Potassium 3.7 Chloride 114 H Carbon Dioxide 22 Anion Gap 4 L BUN 4 L Creatinine 1.50 H Estim Creat Clear Calc 39 Estimated GFR 34 L Glucose 84 POC Capillary Glucose 115 H 86 Calcium 6.1 L Total Bilirubin 0.2 AST 49 H ALT 40 H Alkaline Phosphatase 47 Total Protein 5.0 L Albumin 2.5 L 11/30/21 11/29/21 11/29/21 07:18 21:15 16:54 WBC 4.5 RBC 3.21 L Hgb 9.9 L Hct 30.1 L MCV 93.8 MCH 30.8 MCHC 32.9 RDW 14.6 H Plt Count 133 L MPV 11.3 H % Immature Plt Fraction 8.2 Sodium Potassium Chloride Carbon Dioxide Anion Gap BUN Creatinine Estim Creat Clear Calc Estimated GFR Glucose POC Capillary Glucose 104 101 Calcium Total Bilirubin AST ALT Alkaline Phosphatase Total Protein Albumin Discharge Plan Discharge Attending physician on discharge: Christiano Lane Consulting providers: Morales Collins Discharging Clinician: Christiano Lane Patient Disposition: Home, Self-Care Activity: no preference Diet: as tolerated Patient Instructions: Antibiotic Form, Diverticulitis (GEN), Pain Management in Older Adults (DC), C. Diff (Clostridioides Difficile) Infection (DC), COVID-19 (Coronavirus Disease 2019) (GEN) Stand Alone Forms: General Discharge Information Follow-up/Referrals: Scooter,Caroline Price MD [Primary Care Provider] - Discharge Medications: New vancomycin 1,000 mg Recon Soln 125 mg PO Q6HR 8 Days Qty: 32 0RF Continued potassium chloride [Klor-Con 10] 10 mEq tablet extended release 1 tablet PO 1XD levothyroxine [Synthroid] 75 mcg tablet 1 tablet PO 1XD trazodone 100 mg tablet 2 tablet PO 1XD esomeprazole magnesium [Nexium] 40 mg capsule,delayed release(DR/EC) 1 cap PO 2XD metoprolol tartrate [Lopressor] 50 mg tablet 1 tablet PO 2XD montelukast [Singulair] 10 mg tablet 1 tablet PO 1XD olmesartan-hydrochlorothiazide [Benicar HCT] 40-12.5 mg tablet 1 tablet PO
--- NOTE | 2021-11-30 13:22 | PCNFU ---
Nutrition Follow-Up Complete: Inadequate oral intake related to decreased appetite and diverticulitis as evidenced by pt. report and reported intake Goal:Pt. to meet >50% of estimated nutritional needs. Pt is slowly progressing towards goal. Continue with current goal. Pt current nutrition is Regular diet. Nutrition recommendation: continue with current plan of care. Last recorded weight is 112.5 kg - no new wt. Bowel Motility: + BM 11/30 Labs Reviewed: Hgb:9.9, HCT:30.1, Alb:2.5, BUN:4, CRE:1.5 Meds Noted: heparin, protonix Skin: WNL Additional Notes: pt diet has been upgraded to regular, intake 25-50% most meals. Banitrol added TID for diarrhea. Agree with diet order. Will monitor labs, medication, wt, and reported intake every 7 days
--- NOTE | 2021-11-30 16:21 | PC.NURSE ---
pharmacy unable to fill vanco liquid, but able to do capsules. Dr. Lane notified and is ok with patient receiving capsules instead of liquid. Pharmacy notified of change.
== END 2021-11-30 15:45 | disposition home or self-care (01) | DRG 682 ==
LOC: ANHED 19:57 → ANH3MEDSUR 20:37
PROVIDERS: Emergency Medicine; Family Medicine; Admitting Provider Internal Medicine; Emergency Provider Emergency Medicine; PCP Family Medicine; Visit Provider Chiropractor
DX: N17.9 Acute kidney failure, unspecified (principal); U07.1 COVID-19; K57.32 Diverticulitis of large intestine without perforation or abscess without bleeding; A04.72 Enterocolitis due to Clostridium difficile, not specified as recurrent; Z68.41 Body mass index [BMI] 40.0-44.9, adult; I10 Essential (primary) hypertension; E66.01 Morbid (severe) obesity due to excess calories
CPT/HCPCS: 36415; 71046; 74176; 80053; 81001; 82948; 83690; 84443; 85025; 85027; 85055; 87177; 87209; 87269; 87272; 87493; 89055; 93005; 96361; 96365; 99285; A9270; C9803; G0378; J1644; J2405; J2543; J7030; U0003; U0005

== ENCOUNTER 2022-01-13 08:45 | Emergency (ER) | payer MEDICARE, SELFPAY ==
--- NOTE | ~2022-01-13 | CT_ITS ---
EXAMINATION: CT abdomen pelvis wo con DATE: 01/13/2022 09:39 INDICATION: Lower abdominal pain TECHNIQUE: Computed tomography (CT) of the abdomen and pelvis was performed without intravenous contr ast. The dose-length product was 1516.55 mGy-cm. Automated exposure control and iterative reconstruct ion technique were employed. COMPARISON: CT dated 11/22/2021 FINDINGS: Lung bases are unremarkable. Heart size normal. No significant pleural or pericardial effus ion. No significant vascular abnormality. No lymphadenopathy. There is resolving diverticulitis of th e colon at the hepatic flexure. There is acute uncomplicated proximal sigmoid diverticulitis. No evid ence for perforation or abscess. Small punctate focus of gas nondependent in the bladder, likely from recent instrumentation. The liver, spleen, pancreas, adrenal glands and right kidney are unremarkable. Small low-density lesi on exophytic from the left kidney, most likely benign cysts. Status post cholecystectomy. IMPRESSION: 1. Acute uncomplicated proximal sigmoid diverticulitis. Reviewed, dictated and finalized at location B.
[2022-01-13 08:50] VITALS: BP 157/74; PULSE 86; RESP 18; TEMP 36.7; O2SAT 98
--- NOTE | 2022-01-13 08:59 | ED.GENADULT ---
HPI - General Adult General Chief complaint: Abdominal Pain Stated complaint: ABD PAIN Time Seen by Provider: 01/13/22 08:49 History of Present Illness HPI narrative: 71-year-old female present to the emergency department for evaluation of lower abdominal pain. Patient states yesterday she was having some lower back pain. Patient states this morning she felt the pain was radiating towards her vagina. Patient also reported new left lower quadrant pain. Patient does have a prior history of diverticulitis. Patient denies any current pain with urination denies any prior history of kidney stones. Related Data Home Medications Medication Instructions Recorded Confirmed esomeprazole magnesium 40 mg 1 cap PO 2XD 11/23/21 11/23/21 capsule,delayed release (Nexium) levothyroxine 75 mcg tablet 1 tablet PO 1XD 11/23/21 11/23/21 (Synthroid) metoprolol tartrate 50 mg tablet 1 tablet PO 2XD 11/23/21 11/23/21 (Lopressor) montelukast 10 mg tablet 1 tablet PO 1XD 11/23/21 11/23/21 (Singulair) olmesartan 40 1 tablet PO 1XD 11/23/21 11/23/21 mg-hydrochlorothiazide 12.5 mg tablet (Benicar HCT) potassium chloride 10 mEq 1 tablet PO 1XD 11/23/21 11/23/21 tablet,extended release (Klor-Con) trazodone 100 mg tablet 2 tablet PO 1XD 11/23/21 11/23/21 Allergies Allergy/AdvReac Type Severity Reaction Status Date / Time No Known Allergies Allergy Mild Verified 01/13/22 08:53 Review of Systems Review of Systems: CONSTITUTIONAL: Denies fever, chills, or sweats. EYES: Denies visual changes, redness, or discharge. ENT: Denies rhinorrhea, congestion, sore throat, or otalgia. CARDIOVASCULAR: Denies chest pain, palpitations, or edema. RESPIRATORY: Denies cough or dyspnea. GASTROINTESTINAL: Lower abdominal pain GENITOURINARY: Denies dysuria or hematuria. SKIN: Denies rash or itching. MUSCULOSKELETAL: Denies back pain, joint pain, or myalgia. NEUROLOGIC: Denies headache, numbness, or weakness. [facility] Past Medical History Medical History (Updated 01/13/22 @ 10:10 by Gal Mills MD) Diarrhea Hypertension Family History Family History (Updated 02/13/18 @ 16:14 by DOCTOR UNKNOWN) Other Family history of malignant neoplasm Social History Social History (Updated 11/22/21 @ 17:48 by Jaiden Mendoza DO) Smoking packs per day: 1 Smoking cigarettes per day: 20.0 Years smoked: 3 Smoking pack-years: 3.00 Smoking status: Former smoker Tobacco type: cigarettes Alcohol intake: never Substance use: never Spiritual care concerns: No Exam Narrative: APPEARANCE: Well appearing, no pain, no distress, well-nourished. HEAD: normocephalic, atraumatic. EYES: PERRLA/EOMI, conjunctivae clear. NOSE: Normal no drainage NECK: Supple. No adenopathy, no masses. RESPIRATORY: Airway patent, respirations nonlabored. Clear to auscultation bilaterally, no rales, rhonchi, wheezing. CARDIOVASCULAR: Regular rate and rhythm without murmurs rubs or gallops. ABDOMINAL: Soft, suprapubic and left lower quadrant tenderness to palpation. MUSCULOSKELETAL: Moves all extremities. Strength/ROM intact, No edema, No calf tenderness. NEURO: Alert. Cranial nerves II through XII intact. Good gait. Good coordination SKIN: Warm, dry. Normal Color Course Course Emergency Course: Patient had been started on Cipro and Flagyl by her primary care physician. Patient was updated on results of her CT scan and plan for treatment. All questions concerns were addressed. Vital Signs Vital signs: Vital Signs Temperature 98.0 F 01/13/22 08:50 Pulse Rate 86 01/13/22 08:50 Respiratory Rate 18 01/13/22 08:50 Blood Pressure 157/74 H 01/13/22 08:50 Pulse Oximetry 98 01/13/22 08:50 Oxygen Delivery Room Air 01/13/22 08:50 Temperature 98.0 F 01/13/22 08:50 Pulse Rate 79 01/13/22 10:48 Respiratory Rate 16 01/13/22 10:48 Blood Pressure 119/76 01/13/22 10:48 Pulse Oximetry 98 01/13/22 10:48 Oxygen Delivery R
[2022-01-13 09:07] LABS: Basophils Absolute Auto 0.1 K/mm3 (0.0-0.1); Basophils Percent Auto 0.5 % (0.2-1.2); Eosinophils Absolute Auto 0.1 K/mm3 (0-0.3); Eosinophils Percent Auto 0.5 % (0-4.4); Hematocrit 37.6 % (37.0-47.0); Immature Granulocyte Absolute 0.05 K/mm3 (0.00-0.031); Immature Granulocyte Percent A 0.4 % (0-0.5); Lymphocytes Absolute Auto 1.14 K/mm3 (0.9-3.2); Lymphocytes Percent Auto 9.5 % (18.3-44.2); Mean Corpuscular HGB Conc 31.9 g/dl (32-36); Mean Corpuscular Hemoglobin 31.5 pg (26-34); Mean Corpuscular Volume 98.7 fl (80-100); Mean Platelet Volume 9.9 fl (7.4-10.4); Monocytes Absolute Auto 0.9 K/mm3 (0.1-0.6); Monocytes Percent Auto 7.4 % (2.6-8.5); Neutrophils Absolute Auto 9.9 K/mm3 (1.3-6.7); Neutrophils Percent Auto 81.7 % (45.5-73.1); Platelet Count Result 260 k/mm3 (150-375); Red Blood Count 3.81 M/mm3 (4.2-5.4); Red Cell Distribution Width 12.9 % (11.5-14.5); White Blood Count 12.1 K/mm3 (4.5-10.0)
[2022-01-13] MEDS: ONDANSETRON INJ 4 MG/2 ML VIAL IV PUSH (09:09)
[2022-01-13 09:25] LABS: Alanine Aminotransferase 18 U/L (6-35); Albumin Level 3.6 g/dL (3.5-5.1); Alkaline Phosphatase 61 U/L (38-126); Anion Gap 13 mmol/L (8-16); Aspartate Amino Transferase 27 U/L (14-36); Bilirubin,Total 0.7 mg/dL (0.2-1.3); Blood Urea Nitrogen 22 mg/dL (7-17); Calcium 8.8 mg/dL (8.4-10.2); Carbon Dioxide 22 mmol/L (22-30); Chloride 98 mmol/L (98-107); Estimated CRCL calculation 31 ml/min; Estimated Glomerular Filt Rate 26; Glucose 135 mg/dL (65-110); Lipase 93 U/L (23-300); Potassium 4.9 mmol/L (3.4-5.0); Sodium 133 mmol/L (137-145)
[2022-01-13] MEDS: HYDROcodone/acetaminophen (*CRX) 5-325 MG TABLET 1 TAB PO (10:25)
[2022-01-13 10:36] LABS: Appearance Urine Cloudy (Clear); Bilirubin Urine Negative (Negative); Blood Urine Negative (Negative); Color Urine Yellow (Yellow); Glucose Urine UA Negative (Negative); Ketones Urine Negative (Negative); Leukocyte Esterase Ur Negative LEU/UL (Negative); Nitrate Urine Negative (Negative); Protein Urine Negative (Negative); Specific Grav Ur >= 1.030 (1.001-1.035); Urobilinogen Urine 0.2 mg/dL (<2.0); pH Urine 5.5 (5.0-9.0)
[2022-01-13 10:48] VITALS: BP 119/76; PULSE 79; RESP 16; O2SAT 98
[2022-01-13 10:57] LABS: Add Urine Microscopic? NO
== END 2022-01-13 10:50 | disposition home or self-care (01) ==
PROVIDERS: Emergency Provider Emergency Medicine; PCP Family Medicine
DX: K57.32 Diverticulitis of large intestine without perforation or abscess without bleeding (principal); I10 Essential (primary) hypertension; Z87.891 Personal history of nicotine dependence
CPT/HCPCS: 36415; 74176; 80053; 81003; 83690; 85025; 96374; 99284; A9270; J2405

== ENCOUNTER 2022-08-07 13:43 | Emergency (ER) | payer MEDICARE, SELFPAY ==
--- NOTE | ~2022-08-07 | US_ITS ---
Duplex Sonography of the right extremity: Indication: Pain and swelling Findings: Sagittal and transverse B-mode images as well as color-flow imaging were performed on the r ight femoral and popliteal veins. B-mode examination was done without and with compression in the tr ansverse plane. There is good visualization of the common femoral, proximal profunda femoral, superf icial femoral, greater saphenous, and popliteal veins. Normal flow was seen on color-flow imaging. N ormal compressibility was demonstrated. Right peroneal and posterior tibial veins are also patent. Impression: No evidence of deep vein thrombosis involving the right lower extremity. Reviewed, dictated and finalized at location M. Impression: No evidence of deep vein thrombosis involving the right lower extremity.
--- NOTE | ~2022-08-07 | XR_ITS ---
Right foot Technique: AP, oblique, and lateral views were obtained. Clinical History: Pain Findings: No acute fracture or dislocation is seen. Osseous alignment is anatomic. Joint spaces are p reserved without erosive or degenerative change. Dorsal soft tissue swelling over the forefoot noted. Impression: No fracture or dislocation seen. Dorsal forefoot soft tissue swelling. Reviewed, dictated and finalized at location . Impression: No fracture or dislocation seen. Dorsal forefoot soft tissue swelling.
[2022-08-07 13:46] VITALS: BP 137/87; PULSE 114; RESP 18; TEMP 37.2; O2SAT 100
--- NOTE | 2022-08-07 13:54 | ECG_ITS ---
Measurements Intervals [place] Rate: 106 P: 26 MS: 182 QRS: -31 QRSD: 65 T: 48 QT: 315 QTc: 420 Interpretive Statements SINUS TACHYCARDIA PATTERN CONSISTENT WITH PULMONARY DISEASE INFERIOR INFARCT, AGE INDETERMINATE BORDERLINE ST-T WAVE ABNORMALITY- HIGH LATERAL LEADS BASELINE ARTIFACT- I, II, III, AVR, AVL ABNORMAL ECG COMPARED TO ECG 11/22/2021 18:57:13 SINUS TACHYCARDIA NOW PRESENT INFERIOR INFARCT, NOW PRESENT Electronically Signed On 08-07-2022 20:19:34 CDT by Anthony Richmond D.O.
[2022-08-07 14:26] LABS: Basophils Percent Auto 0.3 % (0.2-1.2); Eosinophils Absolute Auto 0.1 K/mm3 (0-0.3); Hematocrit 38.7 % (37.0-47.0); Hemoglobin 12.8 g/dL (12.0-15.0); Immature Granulocyte Absolute 0.04 K/mm3 (0.00-0.031); Immature Granulocyte Percent A 0.4 % (0-0.5); Lymphocytes Absolute Auto 2.37 K/mm3 (0.9-3.2); Lymphocytes Percent Auto 22.8 % (18.3-44.2); Mean Corpuscular HGB Conc 33.1 g/dl (32-36); Mean Corpuscular Hemoglobin 31.7 pg (26-34); Mean Corpuscular Volume 95.8 fl (80-100); Mean Platelet Volume 9.9 fl (7.4-10.4); Monocytes Percent Auto 9.3 % (2.6-8.5); Neutrophils Absolute Auto 6.9 K/mm3 (1.3-6.7); Neutrophils Percent Auto 66.2 % (45.5-73.1); Platelet Count Result 288 k/mm3 (150-375); Red Blood Count 4.04 M/mm3 (4.2-5.4); Red Cell Distribution Width 12.4 % (11.5-14.5); White Blood Count 10.4 K/mm3 (4.5-10.0)
[2022-08-07 14:37] LABS: INR 1.1; Prothrombin Time 13.4 Seconds (11.1-14.7)
[2022-08-07 14:38] LABS: Partial Thromboplastin Time 26.4 SECONDS (22.3-36.8)
[2022-08-07 14:48] LABS: Anion Gap 8 mmol/L (8-16); Blood Urea Nitrogen 22 mg/dL (7-17); Calcium 8.6 mg/dL (8.4-10.2); Carbon Dioxide 27 mmol/L (22-30); Chloride 99 mmol/L (98-107); Estimated CRCL calculation 23 ml/min; Estimated Glomerular Filt Rate 18; Glucose 110 mg/dL (65-110); Potassium 4.3 mmol/L (3.4-5.0); Sodium 134 mmol/L (137-145)
--- NOTE | 2022-08-07 16:24 | ED.GENADULT ---
HPI - General Adult General Chief complaint: Extremity Injury, Lower Stated complaint: right foot swelling/pain x 3 days Time Seen by Provider: 08/07/22 15:59 History of Present Illness HPI narrative: 71-year-old female presenting to the emergency department for evaluation of worsening right foot pain. Patient states she began developing the foot pain a few days ago and it has now worsened over the last 2 days. Patient denies any falls or injuries. Patient has no prior history of gout. Patient has no prior history of DVT. Related Data Home Medications Medication Instructions Recorded Confirmed esomeprazole magnesium 40 mg 1 cap PO 2XD 11/23/21 11/23/21 capsule,delayed release (Nexium) levothyroxine 75 mcg tablet 1 tablet PO 1XD 11/23/21 11/23/21 (Synthroid) metoprolol tartrate 50 mg tablet 1 tablet PO 2XD 11/23/21 11/23/21 (Lopressor) montelukast 10 mg tablet 1 tablet PO 1XD 11/23/21 11/23/21 (Singulair) olmesartan 40 1 tablet PO 1XD 11/23/21 11/23/21 mg-hydrochlorothiazide 12.5 mg tablet (Benicar HCT) potassium chloride 10 mEq 1 tablet PO 1XD 11/23/21 11/23/21 tablet,extended release (Klor-Con) trazodone 100 mg tablet 2 tablet PO 1XD 11/23/21 11/23/21 Allergies Allergy/AdvReac Type Severity Reaction Status Date / Time No Known Allergies Allergy Mild Verified 08/07/22 13:46 Review of Systems Review of Systems: All systems reviewed & are unremarkable except as noted in HPI and below PMFSH Past Medical History Medical History (Updated 08/07/22 @ 17:27 by Gal Mills MD) Diarrhea Hypertension Family History Family History (Updated 02/13/18 @ 16:14 by DOCTOR UNKNOWN) Other Family history of malignant neoplasm Social History Social History (Updated 11/22/21 @ 17:48 by Jaiden Mendoza DO) Smoking packs per day: 1 Smoking cigarettes per day: 20.0 Years smoked: 3 Smoking pack-years: 3.00 Smoking status: Former smoker Tobacco type: cigarettes Alcohol intake: never Substance use: never Spiritual care concerns: No Exam Narrative: APPEARANCE: Well appearing, no pain, no distress, well-nourished. HEAD: normocephalic, atraumatic. EYES: PERRLA/EOMI, conjunctivae clear. NOSE: Normal no drainage NECK: Supple. No adenopathy, no masses. RESPIRATORY: Airway patent, respirations nonlabored. Clear to auscultation bilaterally, no rales, rhonchi, wheezing. CARDIOVASCULAR: Regular rate and rhythm without murmurs rubs or gallops. ABDOMINAL: Soft, nontender, nondistended, normal bowel sounds MUSCULOSKELETAL: Moves all extremities. Strength/ROM intact, No edema, No calf tenderness. NEURO: Alert. Cranial nerves II through XII intact. Grossly intact SKIN: Mild erythema at the the dorsum of the distal right foot. No abscess palpated, no break in skin Course Course Emergency Course: 71-year-old female presenting for evaluation of left foot pain. Patient is afebrile but does have a leukocytosis of 10.4. Patient's CMP is similar to her baseline, patient does have underlying JORDAN. X-ray shows no acute fracture but does show evidence of soft tissue swelling. Patient's ultrasound was negative for DVT. Patient has no prior history of gout. Exam is concerning more for cellulitis. Patient prefers discharge to home. Patient was started on Keflex in the emergency department and was discharged home on Keflex. Patient was educated on reasons to return to the emergency department. All question concerns were addressed. Vital Signs Vital signs: Vital Signs Temperature 99.0 F 08/07/22 13:46 Pulse Rate 114 H 08/07/22 13:46 Respiratory Rate 18 08/07/22 13:46 Blood Pressure 137/87 08/07/22 13:46 Pulse Oximetry 100 08/07/22 13:46 Oxygen Delivery Room Air 08/07/22 13:46 Temperature 99.0 F 08/07/22 13:46 Pulse Rate 100 08/07/22 17:31 Respiratory Rate 18 08/07/22 17:31 Blood Pressure 152/91 H 08/07/22 17:31 Pulse Oximetry 96 08/07/22 17:31 O
[2022-08-07 17:31] VITALS: BP 152/91; PULSE 100; RESP 18; O2SAT 96
[2022-08-07] MEDS: CEPHALEXIN 500 MG CAPSULE PO (17:31)
== END 2022-08-07 17:57 | disposition home or self-care (01) ==
PROVIDERS: Emergency Medicine; Emergency Provider Emergency Medicine; PCP Family Medicine
DX: L03.116 Cellulitis of left lower limb (principal); I10 Essential (primary) hypertension; Z87.891 Personal history of nicotine dependence
CPT/HCPCS: 36415; 73630; 80048; 85025; 85610; 85730; 93005; 93971; 99284; A9270

== ENCOUNTER 2024-05-09 14:42 | Inpatient (IN) | payer MEDICARE, SELFPAY ==
--- NOTE | ~2024-05-09 | XR_ITS ---
XR abdomen/kub 1V DATE: 05/18/2024 17:39 INDICATION: NG tube placement TECHNIQUE: AP view on 05/18/2024 at 1730 hours COMPARISON: None FINDINGS: NG tube extends 16 cm approximately distal to the diaphragmatic hiatus, the overlying the r ight upper quadrant, either in the distal stomach or proximal duodenum. IMPRESSION: NG tube in distal stomach or proximal duodenum Reviewed, dictated and finalized at [facility]. Reviewed, dictated and finalized at location [facility]. CH BILLING PAYROLL CLERK
--- NOTE | ~2024-05-09 | CT_ITS ---
CT abdomen pelvis wo con Ordering provider: Kareem Posada MD History: 73 years Female with . Postprandial nausea and vomiting, poor appetite . Comparison: None. Technique: CT abdomen and pelvis without IV and without oral contrast. Automated exposure control and iterative reconstruction technique were employed. The dose-length product was 1395.57 mGy-cm. Findings: VISUALIZED LOWER CHEST: Normal. UPPER ABDOMINAL ORGANS: Liver: Normal. Gallbladder: Status post cholecystectomy. Spleen: Normal. Stomach/duodenum: Normal. Pancreas: Normal. Adrenals: Normal. Kidneys: Atrophic kidneys. PELVIC ORGANS: The bladder is normal. . Air bubble is seen in the urinary bladder may be postcatheterization.. BOWEL AND MESENTERY: Colon: Fat stranding around the distal descending colon and proximal sigmoid colon suggestive of dive rticulitis. Clinical correlation and follow-up advised. No evidence of appendicitis. Small Bowel: Normal. No obstruction. Peritoneum/mesentery: No free air or free fluid. No mesenteric lymphadenopathy. RETROPERITONEUM: Mild atheromatous disease of the abdominal aorta. No retroperitoneal lymphadenopat hy. MUSCULOSKELETAL: Superficial soft tissues: The superficial soft tissues are normal. Bones: Age appropriate degenerative changes of the spine. IMPRESSION: 1. Atrophic kidneys. 2. Highly suggestive descending colon and proximal sigmoid colon diverticulitis. Follow-up and clini luisito correlation advised. Reviewed, dictated and finalized at location [facility]. AULIC BARKER OPERATOR IMPRESSION: 1. Atrophic kidneys. 2. Highly suggestive descending colon and proximal sigmoid colon diverticuliti s. Follow-up and clinical correlation advised.
--- NOTE | ~2024-05-09 | CT_ITS ---
EXAMINATION: CT abdomen pelvis wo con DATE: 05/09/2024 15:53 INDICATION: Left lower quadrant abdominal tenderness. TECHNIQUE: Computed tomography (CT) of the abdomen and pelvis was performed without intravenous contr ast. Automated exposure control and iterative reconstruction technique were employed. The dose-length product was 1046.85 mGy-cm. COMPARISON: 01/13/2022 FINDINGS: Lung bases are clear. Heart size is normal. Atherosclerotic coronary artery calcific lesion. No peric ardial or pleural effusion. Small sliding-type hiatal hernia. Splenic and hepatic calcifications cons istent with old granulomatous disease. Status post cholecystectomy. Pancreas, bilateral adrenal gland s are normal. 8 mm rim calcified splenic artery aneurysm posterior to the body of the pancreas. Mild bilateral renal atrophy. There are multiple diverticula scattered along the colon. There is inflammat ory stranding surrounding a diverticulum at the ascending colon consistent with diverticulitis. Wall thickening and more extensive stranding is seen along the descending colon with a couple foci of like ly extraluminal gas along the distal descending colon also suspicious for additional diverticulitis w ith microperforation. No abscess, free intraperineal fluid or more remote free intraperitoneal gas. N o bowel obstruction. Bladder is normal. The uterus is not identified and has likely been surgically r esected. No pathologically enlarged abdominal or pelvic lymphadenopathy. Moderate thoracolumbar spond ylosis. IMPRESSION: 1. Diverticulitis at the ascending and descending colon, the latter with likely mitral perforation bu t without evident abscess. Reviewed, dictated and finalized at location A. OGRAPH WATCHER IMPRESSION: 1. Diverticulitis at the ascending and descending colon, the latter with likely mitral perforation but without evident abscess.
--- NOTE | ~2024-05-09 | XR_ITS ---
EXAMINATION: XR UGI water soluble wo kub DATE: 05/14/2024 10:49 INDICATION: Postprandial nausea and vomiting. Poor appetite. TECHNIQUE: The patient drank water-soluble contrast. A total of 616 fluoroscopic images of the esopha brian, stomach, and proximal small bowel were obtained. Fluoroscopy exposure time was 1.7 minutes. Tota l DAP was 10.576 Gycm^2 COMPARISON: CT dated 05/13/2024 FINDINGS: Study limited by patient condition with inability to stand for prolonged periods as well as due to premature conclusion of the study due to the development of nausea and dizziness. There is pe rsistent stricture with smooth mucosal margins at the distal esophagus with passage of only intermitt ent small amounts of contrast into the stomach with the majority of the contrast pooling for prolonge d periods within the more proximal esophagus. No evident hiatal hernia. The stomach and proximal smal l bowel. Unremarkable however assessment is limited by the relatively small amount of contrast passin g the gastroesophageal junction also precluding assessment for gastroesophageal reflux. IMPRESSION: 1. Narrowing of the distalmost esophagus with smooth mucosal margins which could be due to either spa sm or fixed stricture either benign or malignant. Would recommend endoscopy for further evaluation. Reviewed, dictated and finalized at location A. SEWER IMPRESSION: 1. Narrowing of the distalmost esophagus with smooth mucosal margins which coul d be due to either spasm or fixed stricture either benign or malignant. Would r ecommend endoscopy for further evaluation.
[2024-05-09 14:51] VITALS: BP 112/68; PULSE 81; RESP 18; TEMP 36.6; O2SAT 98
--- NOTE | 2024-05-09 15:14 | ED_ITS ---
HPI - Abdominal Pain General Chief Complaint: Abdominal Pain <Juanjo Parker PA-C - Last Filed: 05/09/24 18:06> Stated Complaint: gen. weak x days <Juanjo Parker PA-C - Last Filed: 05/09/24 18:06> Time Seen by Provider: 05/09/24 15:06 <Juanjo Parker PA-C - Last Filed: 05/09/24 18:06> Source: patient <Juanjo Parker PA-C - Last Filed: 05/09/24 18:06> Mode of arrival: ambulatory <Juanjo Parker PA-C - Last Filed: 05/09/24 18:06> Limitations: no limitations <Juanjo Parker PA-C - Last Filed: 05/09/24 18:06> History of Present Illness HPI narrative: This is a 73-year-old female who presents to the ED for chief complaint of lower abdominal pain. Reports that she has had pain across the abdomen for the past month and worse today. States that she has had several episodes of diarrhea and eating causes her to become nauseous. She has had diverticulitis in the past and thinks that this may be the same. Reports feeling generally weak and dehydrated overall. Reports decreased urine output. Endorses subjective fevers and chills. Denies dysuria, hematuria, flank pain, chest pain, shortness of breath. Reports surgical history of and cholecystectomy. Thinks she may have had her appendix out as well. <BRADLEY Crawford Last Filed: 05/09/24 18:06> Related Data Home Medications: Home Medications ?Medication ?Instructions ?Recorded ?Confirmed ?Last Taken ?Type esomeprazole magnesium 40 mg 1 cap PO 2XD 22 11/23/21 Unknown History capsule,delayed release (Nexium) levothyroxine 75 mcg tablet 1 tablet PO 1XD 11/23/21 11/23/21 Unknown History (Synthroid) metoprolol tartrate 50 mg tablet 1 tablet PO 2XD 11/23/21 11/23/21 Unknown History (Lopressor) montelukast 10 mg tablet 1 tablet PO 1XD 11/23/21 11/23/21 Unknown History (Singulair) olmesartan 40 1 tablet PO 1XD 11/23/21 11/23/21 Unknown History mg-hydrochlorothiazide 12.5 mg tablet (Benicar HCT) potassium chloride 10 mEq 1 tablet PO 1XD 11/23/21 11/23/21 Unknown History tablet,extended release (Klor-Con) trazodone 100 mg tablet 2 tablet PO 1XD 11/23/21 11/23/21 Unknown History <Juanjo Parker PA-C - Last Filed: 05/09/24 18:06> Allergies/Adverse Reactions: Allergies Allergy/AdvReac Type Severity Reaction Status Date / Time No Known Allergies Allergy Mild Verified 08/07/22 13:46 <BRADLEY Crawford Last Filed: 05/09/24 18:06> Review of Systems 2 Review of Systems: All systems as dictated in HPI <BRADLEY Crawford Last Filed: 05/09/24 18:06> PENDING SALE TO [facility] Past Medical History Medical History: Medical History Diverticulitis C. difficile colitis 2021 CKD (chronic kidney disease) Diarrhea Hypertension <BRADLEY Crawford Last Filed: 05/09/24 18:06> Family History Family History: Family History Other Family history of malignant neoplasm <BRADLEY Crawford Last Filed: 05/09/24 18:06> Social History Social History: Social History Smoking packs per day: 1 Smoking cigarettes per day: 20.0 Years smoked: 3 Smoking pack-years: 3.00 Smoking status: Former smoker Tobacco type: cigarettes Alcohol intake: never Substance use: never Do You Feel Safe in your Home?: Yes Lack of Transportation: YES Lack of Food: Never True Current Housing: I Have Housing Concerned About Future Housing: No Difficulty Paying Gas/Electric Bills: No Difficulty Paying for Meds: No Currently Unemployed: No Education: Grade School Difficulty w/ Childcare or Family Care: No Spiritual care concerns: No <BRADLEY Crawford Last Filed: 05/09/24 18:06> Exam 2 Narrative: GENERAL: Well-appearing, well-nourished, and in no acute distress. HEAD: Normocephalic, atraumatic. EYES: PERRLA and EOMI. ENT: Nares clear, no rhinorrhea or epistaxis. Mucous membranes moist. Oropharynx without tonsillar hypertrophy exudate or other lesions. NECK: Supple. No adenopathy or masses. CHEST: No respiratory distress. Clear to auscultation. No wheezes rales or rhonchi HEART: Regular rate and rhythm. No murmur heard. Normal peripheral pulses. ABDOMEN: Left lower quadrant tenderness present. Soft, otherwise nontender, nondistended, normal active bowel sounds. MSK: Normal range of motion. No edema. SKIN: Warm, dry, no rash. NEURO: Alert and oriented x4. No focal deficits. PSYCH: Normal mood and affect. <Juanjo Parker PA-C - Last Filed: 05/09/24 18:06> Course HIDE SALTER/PA Physician Supervision I agree with midlevel documentation; I performed the medical decision making component of this evaluation. <Thelma Chapa MD - Last Filed: 05/09/24 18:40> Consultations Consultation #1: Spoke with general surgery, Dr. Posada. He does agree with antibiotic choices and will consult on the patient. <Juanjo Parker PA-C - Last Filed: 05/09/24 18:06> Date: 05/09/24 <Juanjo Parker PA-C - Last Filed: 05/09/24 18:06> Time: 17:05 <Juanjo Parker PA-C - Last Filed: 05/09/24 18:06> Vital Signs Vital signs: Vital Signs Temperature 97.9 F 05/09/24 14:51 Pulse Rate 81 05/09/24 14:51 Respiratory Rate 18 05/09/24 14:51 Blood Pressure 112/68 05/09/24 14:51 Pulse Oximetry 98 05/09/24 14:51 Oxygen Delivery Room Air 05/09/24 14:51 Temperature 97.5 F L 05/09/24 16:57 Pulse Rate 82 05/09/24 16:57 Respiratory Rate 22 H 05/09/24 16:57 Blood Pressure 137/77 05/09/24 16:57 Pulse Oximetry 99 05/09/24 16:57 Oxygen Delivery Room Air 05/09/24 14:51 <Juanjo Parker PA-C - Last Filed: 05/09/24 18:06> Vital Signs Temperature 97.9 F 05/09/24 14:51 Pulse Rate 81 05/09/24 14:51 Respiratory Rate 18 05/09/24 14:51 Blood Pressure 112/68 05/09/24 14:51 Pulse Oximetry 98 05/09/24 14:51 Oxygen Delivery Room Air 05/09/24 14:51 Temperature 97.5 F L 05/09/24 16:57 Pulse Rate 82 05/09/24 16:57 Respiratory Rate 22 H 05/09/24 16:57 Blood Pressure 137/77 05/09/24 16:57 Pulse Oximetry 99 05/09/24 16:57 Oxygen Delivery Room Air 05/09/24 14:51 <Thelma Chapa MD - Last Filed: 05/09/24 18:40> MDM - Abdominal Pain MDM Narrative Medical decision making narrative: This is a send 3-year-old female who presents to the ED for chief complaint of left lower abdominal pain. Vitals are normal. Exam is remarkable for the above with focal left lower quadrant tenderness. No peritoneal signs. Lab work shows white count 13.6. CMP shows BUN of 35 and creatinine of 2.70, however appears relatively consistent with previous measures. The patient does appear dehydrated overall though. CT abdomen pelvis without contrast: IMPRESSION: 1. Diverticulitis at the ascending and descending colon, the latter with likely mitral perforation but without evident abscess. Patient feeling slightly improved with pain medications, however feel more comfortable being admitted for this. She was started on cefepime and Flagyl. Avoid Zosyn due to renal function. Spoke with general surgery who agrees with antibiotic choices. They will consult on the patient. Recommends clear liquid diet Spoke with hospitalist [employer] PAINTING who recommends admission to [facility] under Dr. Toledo. Patient will be discharged in stable condition. Supportive measures discussed and return precautions given. Patient is understanding and agreeable with plan for discharge with PCP follow-up. <Juanjo Parker PA-C - Last Filed: 05/09/24 18:06> This is a send 3-year-old female who presents to the ED for chief complaint of left lower abdominal pain. Vitals are normal. Exam is remarkable for the above with focal left lower quadrant tenderness. No peritoneal signs. Lab work shows white count 13.6. CMP shows BUN of 35 and creatinine of 2.70, however appears relatively consistent with previous measures. The patient does appear dehydrated overall though. CT abdomen pelvis without contrast: IMPRESSION: 1. Diverticulitis at the ascending and descending colon, the latter with likely mitral perforation but without evident abscess. Patient feeling slightly improved with pain medications, however feel more comfortable being admitted for this. She was started on cefepime and Flagyl. Avoid Zosyn due to renal function. Spoke with general surgery who agrees with antibiotic choices. They will consult on the patient. Recommends clear liquid diet Spoke with hospitalist [employer] PAINTING who recommends admission to [facility] under Dr. Toledo. <Thelma Chapa MD - Last Filed: 05/09/24 18:40> Lab Data Result diagrams: 05/09/24 15:17 05/09/24 15:17 <Juanjo Parker PA-C - Last Filed: 05/09/24 18:06> Labs: Lab Results 05/09/24 Range/Units 15:17 WBC 13.6 H (4.5-10.0) K/mm3 RBC 3.89 L (4.2-5.4) M/mm3 Hgb 12.4 (12.0-15.0) g/dL Hct 37.7 (37.0-47.0) % MCV 96.9 (80-100) fl MCH 31.9 (26-34) pg MCHC 32.9 (32-36) g/dl RDW 13.6 (11.5-14.5) % Plt Count 399 H (150-375) k/mm3 MPV 10.0 (7.4-10.4) fl Immature Gran % (Auto) 2.8 H (0-0.5) % Neut % (Auto) 77.4 H (45.5-73.1) % Lymph % (Auto) 9.8 L (18.3-44.2) % [place] % (Auto) 8.9 H (2.6-8.5) % Eos % (Auto) 0.7 (0-4.4) % Baso % (Auto) 0.4 (0.2-1.2) % Lymph # (Auto) 1.33 (0.9-3.2) K/mm3 [place] # (Auto) 1.2 H (0.1-0.6) K/mm3 Eos # (Auto) 0.1 (0-0.3) K/mm3 Baso # (Auto) 0.1 (0.0-0.1) K/mm3 Abs Immat Gran (auto) 0.38 H (0.00-0.031) K/mm3 Absolute Neuts (auto) 10.6 H (1.3-6.7) K/mm3 Absolute Nucleated RBC 0.000 (0.0-0.012) K/mm3 Nucleated RBC % 0.0 (0.0-0.2) % Sodium 136 L (137-145) mmol/L Potassium 3.4 (3.4-5.0) mmol/L Chloride 103 (98-107) mmol/L Carbon Dioxide 28 (22-30) mmol/L Anion Gap 5 (4-12) mmol/L BUN 35 H D (7-17) mg/dL Creatinine 2.70 H (0.7-1.0) mg/dL Estim Creat Clear Calc 21 ml/min Estimated GFR 17 L (59 - ) Glucose 129 H (65-110) mg/dL Calcium 8.5 (8.4-10.2) mg/dL Total Bilirubin 1.1 (0.2-1.3) mg/dL AST 21 (14-36) U/L ALT 13 (6-35) U/L Alkaline Phosphatase 88 (38-126) U/L Total Protein 7.0 (6.3-8.2) g/dL Albumin 3.2 L (3.5-5.1) g/dL Lipase 54 (23-300) U/L <Juanjo Parker PA-C - Last Filed: 05/09/24 18:06> Lab Results 05/09/24 Range/Units 15:17 WBC 13.6 H (4.5-10.0) K/mm3 RBC 3.89 L (4.2-5.4) M/mm3 Hgb 12.4 (12.0-15.0) g/dL Hct 37.7 (37.0-47.0) % MCV 96.9 (80-100) fl MCH 31.9 (26-34) pg MCHC 32.9 (32-36) g/dl RDW 13.6 (11.5-14.5) % Plt Count 399 H (150-375) k/mm3 MPV 10.0 (7.4-10.4) fl Immature Gran % (Auto) 2.8 H (0-0.5) % Neut % (Auto) 77.4 H (45.5-73.1) % Lymph % (Auto) 9.8 L (18.3-44.2) % [place] % (Auto) 8.9 H (2.6-8.5) % Eos % (Auto) 0.7 (0-4.4) % Baso % (Auto) 0.4 (0.2-1.2) % Lymph # (Auto) 1.33 (0.9-3.2) K/mm3 [place] # (Auto) 1.2 H (0.1-0.6) K/mm3 Eos # (Auto) 0.1 (0-0.3) K/mm3 Baso # (Auto) 0.1 (0.0-0.1) K/mm3 Abs Immat Gran (auto) 0.38 H (0.00-0.031) K/mm3 Absolute Neuts (auto) 10.6 H (1.3-6.7) K/mm3 Absolute Nucleated RBC 0.000 (0.0-0.012) K/mm3 Nucleated RBC % 0.0 (0.0-0.2) % Sodium 136 L (137-145) mmol/L Potassium 3.4 (3.4-5.0) mmol/L Chloride 103 (98-107) mmol/L Carbon Dioxide 28 (22-30) mmol/L Anion Gap 5 (4-12) mmol/L BUN 35 H D (7-17) mg/dL Creatinine 2.70 H (0.7-1.0) mg/dL Estim Creat Clear Calc 21 ml/min Estimated GFR 17 L (59 - ) Glucose 129 H (65-110) mg/dL Calcium 8.5 (8.4-10.2) mg/dL Total Bilirubin 1.1 (0.2-1.3) mg/dL AST 21 (14-36) U/L ALT 13 (6-35) U/L Alkaline Phosphatase 88 (38-126) U/L Total Protein 7.0 (6.3-8.2) g/dL Albumin 3.2 L (3.5-5.1) g/dL Lipase 54 (23-300) U/L <Thelma Chapa MD - Last Filed: 05/09/24 18:40> Imaging Data Radiologist's impression: ITS Impressions Abdomen/Pelvis CT 05/09/24 15:57 IMPRESSION: 1. Diverticulitis at the ascending and descending colon, the latter with likely mitral perforation but without evident abscess. <Juanjo Parker PA-C - Last Filed: 05/09/24 18:06> ITS Impressions Abdomen/Pelvis CT 05/09/24 15:57 IMPRESSION: 1. Diverticulitis at the ascending and descending colon, the latter with likely mitral perforation but without evident abscess. <Thelma Chapa MD - Last Filed: 05/09/24 18:40> Discharge Plan Discharge Clinical Impression: Diverticulitis CKD (chronic kidney disease) Qualifiers: Chronic kidney disease stage: unspecified stage Qualified Code(s): N18.9 - Chronic kidney disease, unspecified <Juanjo Parker PA-C - Last Filed: 05/09/24 18:06> Patient Disposition: Still a Patient <Juanjo Parker PA-C - Last Filed: 05/09/24 18:06> Condition: Stable <Juanjo Parker PA-C - Last Filed: 05/09/24 18:06> Time of Disposition: 17:07 <Juanjo Parker PA-C - Last Filed: 05/09/24 18:06> 17:07 <Thelma Chapa MD - Last Filed: 05/09/24 18:40>
[2024-05-09 15:31] LABS: Basophils Absolute Auto 0.1 K/mm3 (0.0-0.1); Basophils Percent Auto 0.4 % (0.2-1.2); Eosinophils Absolute Auto 0.1 K/mm3 (0-0.3); Eosinophils Percent Auto 0.7 % (0-4.4); Hematocrit 37.7 % (37.0-47.0); Hemoglobin 12.4 g/dL (12.0-15.0); Immature Granulocyte Absolute 0.38 K/mm3 (0.00-0.031); Immature Granulocyte Percent A 2.8 % (0-0.5); Lymphocytes Absolute Auto 1.33 K/mm3 (0.9-3.2); Lymphocytes Percent Auto 9.8 % (18.3-44.2); Mean Corpuscular HGB Conc 32.9 g/dl (32-36); Mean Corpuscular Hemoglobin 31.9 pg (26-34); Mean Corpuscular Volume 96.9 fl (80-100); Monocytes Absolute Auto 1.2 K/mm3 (0.1-0.6); Monocytes Percent Auto 8.9 % (2.6-8.5); Neutrophils Absolute Auto 10.6 K/mm3 (1.3-6.7); Neutrophils Percent Auto 77.4 % (45.5-73.1); Platelet Count Result 399 k/mm3 (150-375); Red Blood Count 3.89 M/mm3 (4.2-5.4); Red Cell Distribution Width 13.6 % (11.5-14.5); White Blood Count 13.6 K/mm3 (4.5-10.0)
[2024-05-09 15:37] LABS: Alanine Aminotransferase 13 U/L (6-35); Albumin Level 3.2 g/dL (3.5-5.1); Alkaline Phosphatase 88 U/L (38-126); Anion Gap 5 mmol/L (4-12); Aspartate Amino Transferase 21 U/L (14-36); Bilirubin,Total 1.1 mg/dL (0.2-1.3); Blood Urea Nitrogen 35 mg/dL (7-17); Calcium 8.5 mg/dL (8.4-10.2); Carbon Dioxide 28 mmol/L (22-30); Chloride 103 mmol/L (98-107); Estimated CRCL calculation 21 ml/min; Estimated Glomerular Filt Rate 17; Glucose 129 mg/dL (65-110); Lipase 54 U/L (23-300); Potassium 3.4 mmol/L (3.4-5.0); Sodium 136 mmol/L (137-145)
[2024-05-09] MEDS: SODIUM CHLORIDE 0.9% IV 1,000 ML 999 ML IV CONT (16:13)
[2024-05-09] MEDS: ONDANSETRON INJ 4 MG/2 ML VIAL IV PUSH (16:14)
[2024-05-09] MEDS: MORPHINE SULFATE (*CRX) 4 MG/ML INJ IV PUSH (16:15)
[2024-05-09 16:57] VITALS: BP 137/77; PULSE 82; RESP 22; TEMP 36.4; O2SAT 99
--- NOTE | 2024-05-09 17:05 | PM.IMHP ---
H&P: HPI History of Present Illness Date/Time: 05/09/24 17:05 Chief Complaint: Abdominal Pain Narrative: 73 y/o F presents here with abdominal pain with PMH of hypertension, SRIRAM intolerant of CPAP, agoraphobia, hypothyroidism, COPD, gout, and anxiety. The patient presents here from home for further evaluation of abdominal pain. She reports this abdominal pain has been ongoing for the past few months. Initially started as an inability to belch or pass gas. Pain slowly transitioned to her lower abdomen. She describes the abdominal pain as lower, primarily on the left, sharp, with intermittent radiation to her RLQ, intermittent, episodes last for around 30-35 mins, aggravated by movement, and alleviated by laying flat. LBM was 2-3 days ago, soft, and normal color. She has a history of diverticulitis with last occurrence in 2021. Now reporting associated weakness, dehydration, unable to urinate, diarrhea, nausea, poor p.o. intake and night sweats. Denies fever, chills, or body aches. Patient has history consistent with agoraphobia. She has not left her home in the past 6 years except for one hospitalization 2 years ago. States she just gets a mental block when she has previously attempted to leave and ends up back home. She feels satisified living at home. Insurance sends a nurse out every 6 months to check on the patient. Otherwise does not receive help at that house. Initial VS at presentation: 97.9? F, HR 81, RR 18, 112/68, and 98% on RA. ED workup showed: WBC 13.6, no anemia, no significant electrolyte derangements, creatinine 2.7 and GFR 17 (previously 2.6 and GFR 18 on 08/07/2022), glucose 129. CT of the abdomen/pelvis showed diverticulitis at the ascending and descending colon, the latter rib with likely mild perforation but without evident abscess. Review of Systems Review of Systems: All systems reviewed & are unremarkable except as noted in HPI and below [facility] Past Medical History Medical History (Updated 05/09/24 @ 20:13 by Akosua Gibbons, PAOLA) Anxiety Postmenopausal Hypothyroidism Gout Sleep apnea Intolerant of CPAP COPD (chronic obstructive pulmonary disease) Diverticulitis C. difficile colitis 2021 CKD (chronic kidney disease) Diarrhea Hypertension Surgical History Surgical History (Updated 05/09/24 @ 20:13 by Akosua Gibbons APRN) History of hysterectomy History of cholecystectomy Family History Family History Other Family history of malignant neoplasm Social History Social History Smoking packs per day: 1 Smoking cigarettes per day: 20.0 Years smoked: 3 Smoking pack-years: 3.00 Smoking status: Former smoker Tobacco type: cigarettes Alcohol intake: never Substance use: never Do You Feel Safe in your Home?: Yes Lack of Transportation: YES Lack of Food: Never True Current Housing: I Have Housing Concerned About Future Housing: No Difficulty Paying Gas/Electric Bills: No Difficulty Paying for Meds: No Currently Unemployed: No Education: Grade School Difficulty w/ Childcare or Family Care: No Spiritual care concerns: No Meds Home Medications and Allergies Home Medications ?Medication ?Instructions ?Recorded ?Confirmed ?Type esomeprazole magnesium 40 mg 1 cap PO 2XD 11/23/21 05/09/24 History capsule,delayed release (Nexium) levothyroxine 75 mcg tablet 1 tablet PO DAILY 11/23/21 05/09/24 History (Synthroid) metoprolol tartrate 50 mg tablet 1 tablet PO BID 11/23/21 05/09/24 History (Lopressor) montelukast 10 mg tablet 1 tablet PO DAILY 11/23/21 05/09/24 History (Singulair) olmesartan 40 1 tablet PO DAILY 11/23/21 05/09/24 History mg-hydrochlorothiazide 12.5 mg tablet (Benicar HCT) potassium chloride 10 mEq 1 tablet PO DAILY 11/23/21 05/09/24 History tablet,extended release (Klor-Con) trazodone 100 mg tablet 2 tablet PO HS 11/23/21 05/09/24 History alprazolam 1 mg tablet 1 mg PO QID PRN anxiety 05/09/24 05/09/24 History tramadol 50 mg tablet 50 mg PO HS 05/09/24 05/09/24 History Allergies Allergy/AdvReac Type Severity Reaction Status Date / Time No Known Allergies Allergy Mild Verified 08/07/22 13:46 Vital Signs Vital Signs - 24 hr 05/09/24 14:51 05/09/24 16:57 Temperature 97.9 F 97.5 F L Pulse Rate 81 82 Respiratory Rate 18 22 H Blood Pressure 112/68 137/77 Pulse Oximetry 98 99 Oxygen Delivery Room Air Exam Const: General: comfortable and no acute distress Other: , female, obese body habitus, nontoxic appearance HENMT: Face/Nose/Sinus: Normal nares present Mouth: Yes moist mucous membranes Eyes: General: appearance normal, both eyes and all related structures Sclera: sclerae normal Pupils: Equal, round and reactive pupils present EOM: EOMs intact bilaterally Resp: Effort & Inspection: normal respiratory effort Auscultation: clear to auscultation bilaterally Cardio: Rate: regular rate Rhythm: regular rhythm Other: S1-S2 present without murmur, rub, ectopy GI: Other: Abdomen rounded, soft, nontender. Normoactive bowel sounds in all quadrants. Skin: General skin exam: normal color and no rashes or lesions noted Wounds: no wounds Neuro: Speech: normal speech Motor exam (neuro): 5/5 motor strength present throughout Sensory Exam: normal sensation Other: A&O x4 Extrem: General: normal to inspection Psych: Mental Status: mental status grossly normal Affect: normal affect Other: Good insight and judgment, very pleasant H&P: Results Labs Labs: Short CBC 05/09/24 Range/Units 15:17 WBC 13.6 H (4.5-10.0) K/mm3 Hgb 12.4 (12.0-15.0) g/dL Hct 37.7 (37.0-47.0) % Plt Count 399 H (150-375) k/mm3 BMP 05/09/24 15:17 Sodium 136 L Potassium 3.4 Chloride 103 Carbon Dioxide 28 BUN 35 H D Creatinine 2.70 H Glucose 129 H Calcium 8.5 Liver Function 05/09/24 Range/Units 15:17 Total Bilirubin 1.1 (0.2-1.3) mg/dL AST 21 (14-36) U/L ALT 13 (6-35) U/L Alkaline Phosphatase 88 (38-126) U/L Albumin 3.2 L (3.5-5.1) g/dL Assessment and Plan Assessment and plan (1) Diverticulitis: Code(s): K57.92 - Diverticulitis of intestine, part unspecified, without perforation or abscess without bleeding Status: Acute Assessment and Plan: - did not meet SIRS criteria, WBC only. - CT abdomen/pelvis: Diverticulitis at the ascending and descending colon, the latter with likely mild perforation but without evidence abscess - started on cefepime and Flagyl - IV fluids: 1L bolus -> 125 mL/hr, monitor I&Os, and DC when appropriate - analgesics and antipyretics p.r.n. - serial abdominal exams - general surgery consulted, awaiting formal recs (2) CKD (chronic kidney disease): Qualifiers: Chronic kidney disease stage: unspecified stage Qualified Code(s): N18.9 - Chronic kidney disease, unspecified Code(s): N18.9 - Chronic kidney disease, unspecified Status: Chronic Assessment and Plan: - creatinine 2.7 and GFR 17, previously 2.6 and GFR 18 on 08/07/2022 - trend renal function - trend electrolytes, correct as needed (3) Hypertension: Qualifiers: Hypertension type: primary hypertension Qualified Code(s): I10 - Essential (primary) hypertension Code(s): I10 - Essential (primary) hypertension Status: Chronic Assessment and Plan: - chronic, currently 137/77 - continue home medications: Metoprolol 50 mg b.i.d., olmesartan-hydrochlorothiazide 40-12.5 mg daily - monitor Plan Diet: Clear liquid GI Prophylaxis: Not currently indicated DVT Prophylaxis: SCDs Lines: Peripheral Code Status: Full code Quality VTE Prophylaxis VTE prophylaxis: mechanical ordered Hospitalist MIPS Advance Care Plan I have confirmed that the patient's Advanced Care Plan is present, code status is documented, or surrogate decision maker is listed in patient medical record.: Yes Medication Reconciliation I have utilized all available resources to obtain, update and review the patients current medications (includes all prescriptions, OTC, herbals, cannabis, and nutritional supplements).: Yes
[2024-05-09] MEDS: CEFEPIME 1 GM/NS 50 ML 1 GM/50 ML BAG IVPB (17:13)
[2024-05-09] MEDS: SODIUM CHLORIDE 0.9% IV 1,000 ML 125 ML IV CONT (17:49)
[2024-05-09] MEDS: metroNIDAZOLE 500 MG/ISO 100ML 500 MG/100 ML BAG 100 MG IVPB ×2 (17:50→23:10)
--- NOTE | 2024-05-09 18:16 | ADMGEN ---
This patient, Melissa Tom, was admitted to Medical Room 344-01. Patient/family oriented to hospital policies and general routines including ID bracelet, bed and alarms, visiting hours, pain management, procedures, bathroom and other care routines, personal items, smoking policy, room service/diet, and visiting hours. Information on how to activate the Rapid Response Team has been discussed. Patient/Family are encouraged to report perceived risks to care and to ask questions if they do not understand what they are told or what they should do.
[2024-05-09 20:11] VITALS: BMI 34.5
[2024-05-09 20:14] VITALS: BP 116/61; PULSE 80; RESP 16; TEMP 36.4; O2SAT 98
[2024-05-09] MEDS: traZODone HCL 50 MG TABLET 200 MG PO (22:38)
[2024-05-09] MEDS: traMADol HCL (*CRX) 50 MG TABLET PO (22:38)
[2024-05-10 03:24] LABS: Add Urine Microscopic? YES; Appearance Urine Clear (Clear); Bilirubin Urine Negative (Negative); Blood Urine Negative (Negative); Color Urine Dark Yellow (Yellow); Glucose Urine UA Negative (Negative); Ketones Urine Negative (Negative); Leukocyte Esterase Ur Trace LEU/UL (Negative); Nitrate Urine Negative (Negative); Protein Urine Trace mg/dL (Negative); Specific Grav Ur 1.016 (1.001-1.035)
[2024-05-10 03:30] LABS: RBC Urine 0-2 /hpf (0-2)
[2024-05-10 03:31] LABS: WBC Urine 0-5 /hpf (0-3)
[2024-05-10 03:32] LABS: Squamous Epithelial Cell Urine None seen /hpf (Few)
[2024-05-10] MEDS: SODIUM CHLORIDE 0.9% IV 1,000 ML 125 ML IV CONT ×3 (05:29→20:56)
[2024-05-10] MEDS: CEFEPIME 1 GM/NS 50 ML 1 GM/50 ML BAG IVPB ×2 (05:29→18:26)
[2024-05-10 05:53] LABS: Basophils Absolute Auto 0.1 K/mm3 (0.0-0.1); Basophils Percent Auto 0.4 % (0.2-1.2); Eosinophils Absolute Auto 0.1 K/mm3 (0-0.3); Eosinophils Percent Auto 0.7 % (0-4.4); Hematocrit 34.3 % (37.0-47.0); Hemoglobin 10.8 g/dL (12.0-15.0); Immature Granulocyte Absolute 0.07 K/mm3 (0.00-0.031); Immature Granulocyte Percent A 0.6 % (0-0.5); Lymphocytes Percent Auto 14.4 % (18.3-44.2); Mean Corpuscular HGB Conc 31.5 g/dl (32-36); Mean Corpuscular Hemoglobin 31.3 pg (26-34); Mean Corpuscular Volume 99.4 fl (80-100); Mean Platelet Volume 9.9 fl (7.4-10.4); Monocytes Absolute Auto 1.1 K/mm3 (0.1-0.6); Monocytes Percent Auto 10.3 % (2.6-8.5); Neutrophils Absolute Auto 8.2 K/mm3 (1.3-6.7); Neutrophils Percent Auto 73.6 % (45.5-73.1); Platelet Count Result 276 k/mm3 (150-375); Red Blood Count 3.45 M/mm3 (4.2-5.4); Red Cell Distribution Width 13.8 % (11.5-14.5); White Blood Count 11.1 K/mm3 (4.5-10.0)
[2024-05-10 06:00] VITALS: BP 119/68; PULSE 85; RESP 16; TEMP 36.2; O2SAT 98
[2024-05-10] MEDS: LEVOTHYROXINE SODIUM 75 MCG TABLET PO (06:12)
[2024-05-10 06:23] LABS: Alanine Aminotransferase 10 U/L (6-35); Albumin Level 2.4 g/dL (3.5-5.1); Alkaline Phosphatase 73 U/L (38-126); Anion Gap 8 mmol/L (4-12); Aspartate Amino Transferase 18 U/L (14-36); Bilirubin,Total 0.8 mg/dL (0.2-1.3); Blood Urea Nitrogen 30 mg/dL (7-17); Calcium 7.6 mg/dL (8.4-10.2); Carbon Dioxide 20 mmol/L (22-30); Chloride 109 mmol/L (98-107); Estimated CRCL calculation 24 ml/min; Estimated Glomerular Filt Rate 23; Glucose 96 mg/dL (65-110); Potassium 3.6 mmol/L (3.4-5.0); Sodium 137 mmol/L (137-145)
--- NOTE | 2024-05-10 08:04 | P.PNIM_ITS ---
Progress Note: A&P Assessment and Plan (1) Diverticulitis: Code(s): K57.92 - Diverticulitis of intestine, part unspecified, without perforation or abscess without bleeding Status: Acute Assessment and Plan: - did not meet SIRS criteria, WBC only. - CT abdomen/pelvis: Diverticulitis at the ascending and descending colon, the latter with likely mild perforation but without evidence abscess - IV fluids: 1L bolus -> 125 mL/hr, monitor I&Os, and DC when appropriate - analgesics and antipyretics p.r.n. - Antibiotics: cefepime and Flagyl started on 05/09 - Diet: clear liquid diet - serial abdominal exams - Monitor vital signs, I&Os, track stool output, watch for bloody stools, neuro status and patient is a fall risk - Monitor serum electrolytes and CBC - general surgery consulted, awaiting formal recs Continue IV antibiotics If does well, can be advanced to low-fiber diet tomorrow. Plan for patient to be discharged low-fiber diet for 2 weeks. There is no colonoscopy records. Unless she has had one at another facility, colonoscopy would be advisable in 4-6 weeks. (2) CKD (chronic kidney disease): Qualifiers: Chronic kidney disease stage: unspecified stage Qualified Code(s): N18.9 - Chronic kidney disease, unspecified Code(s): N18.9 - Chronic kidney disease, unspecified Status: Chronic Assessment and Plan: BUN/Cr 35/2.7 on admission, baseline appears to be 1.4-2.2 - BUN/Cr 30/2.1 on am labs - renally dose medications - avoid nephrotoxic medications - trend renal function - trend electrolytes, correct as needed (3) Hypertension: Qualifiers: Hypertension type: primary hypertension Qualified Code(s): I10 - Essential (primary) hypertension Code(s): I10 - Essential (primary) hypertension Status: Chronic Assessment and Plan: - chronic - continue home medications: Metoprolol 50 mg b.i.d., olmesartan- hydrochlorothiazide 40-12.5 mg daily - monitor (4) Hypothyroidism: Code(s): E03.9 - Hypothyroidism, unspecified Status: Acute Assessment and Plan: Chronic, continue home medication - Synthroid 75 mcg daily - TSH ordered Plan Diet: Clear liquid GI Prophylaxis: Not currently indicated DVT Prophylaxis: SCDs Lines: Peripheral Code Status: Full code Time Spent With Patient Time with patient: 25 - 35 minutes Subjective Date/time seen: 05/10/24 08:04 Interval history: 73 y/o F presents here with abdominal pain with PMH of hypertension, SRIRAM intolerant of CPAP, agoraphobia, hypothyroidism, COPD, gout, and anxiety. Patient is pleasant sitting up comfortably in bed. She states that her pain is doing well. She attempted to eat a full liquid diet, but had an episode of emesis. She was deescalated to clears at that time and will advance at tolerated. Patient denies any recurrence of nausea/vomiting and denies diarrhea. Patient has no other complaints denying chest pain, shortness of breath, palpitations. Review of Systems Review of Systems: All systems reviewed & are unremarkable except as noted in HPI and below Exam Narrative: AF HR 85 RR 16 SPO2 98 BP 119/68 General: female in no acute respiratory distress who is nontoxic appearing, lying semi recumbent in bed. HEENT: Normocephalic. Atraumatic. Extraocular movement intact. Sclera clear and anicteric. No facial asymmetry. Chest: Lungs are clear to auscultation bilaterally. No wheezes or crackles. CV: Heart was regular rate and rhythm. S1-S2. No murmurs, gallops, or rubs. Abd: Abdomen was soft. Tenderness to LLQ. Nondistended. Positive bowel sounds. No organomegaly or masses. Ext: No clubbing, cyanosis, or edema. 2+ DP pulses bilaterally. Neuro: Patient is alert. Cranial nerves 2-12 are intact. Speech is clear. Psych: Normal mood and affect. Patient is pleasant and cooperative. Skin: Warm and dry. No rashes noted. Objective Data Vital Signs Vital Signs: Vital Signs - 24 hr 05/09/24 14:51 05/09/24 16:57 05/09/24 20:14 Temperature 97.9 F 97.5 F L 97.6 F Pulse Rate 81 82 80 Respiratory Rate 18 22 H 16 Blood Pressure 112/68 137/77 116/61 Pulse Oximetry 98 99 98 Oxygen Delivery Room Air 05/10/24 06:00 Temperature 97.2 F L Pulse Rate 85 Respiratory Rate 16 Blood Pressure 119/68 Pulse Oximetry 98 Oxygen Delivery Intake/Output Intake/Output: Intake & Output 12/1005/08/24 05/09/24 05/10/24 23:59 23:59 23:59 23:59 Intake Total 1050 1200 Output Total 250 Balance 1050 950 Meds/Results Medications: Active Medications Generic Name Dose Route Start Last Admin Trade Name Freq PRN Reason Stop Dose Admin Acetaminophen 650 mg 05/09/24 17:35 Acetaminophen 325 Mg Tablet PO Q6H PRN Mild Pain (1-3) or Fever Alprazolam 1 mg 05/09/24 20:14 Alprazolam (*Crx) 0.5 Mg Tablet PO QID PRN anxiety Hydrochlorothiazide 12.5 mg 05/10/24 09:00 Hydrochlorothiazide 12.5 Mg Capsule PO QAM SOLITARIO Hydromorphone HCl 0.5 mg 05/09/24 17:05 Hydromorphone Hcl Inj (*Crx) 1 Mg/Ml Syr IV PUSH Q4H PRN Pain Rated 7-10 Sodium Chloride 1,000 mls @ 125 mls/hr 05/09/24 17:05 05/10/24 05:29 Normal Saline Iv IV CONT 125 mls/hr .Q8H SOLITARIO Administration Cefepime HCl 1 gm in 50 mls @ 100 mls/hr 05/10/24 06:00 05/10/24 05:59 Maxipime 1 Gm/Ns 50 Ml IVPB Infused Q12H SOLITARIO Infusion Metronidazole 500 mg in 100 mls @ 100 mls/hr 05/10/24 00:00 05/10/24 00:10 Flagyl 500 Mg/Iso Soln 100 Ml IVPB Infused Q8H SOLITAROI Infusion Levothyroxine Sodium 75 mcg 05/10/24 06:30 05/10/24 06:12 Levothyroxine Sodium 75 Mcg Tablet PO 75 mcg DAILY@0630 SOL[facility]AR[facility] Administration Metoprolol Tartrate 50 mg 05/10/24 09:00 Metoprolol Tartrate 50 Mg Tab PO Q12HR [facility] Montelukast Sodium 10 mg 05/10/24 09:00 Montelukast Sodium 10 Mg Tablet PO DAILY [facility] Morphine Sulfate 2 mg 05/09/24 17:35 Morphine Sulfate (*Crx) 2 Mg/Ml Inj IV PUSH Q4H PRN Pain Rated 4-6 Morphine Sulfate 4 mg 05/09/24 17:35 Morphine Sulfate (*Crx) 4 Mg/Ml Inj IV PUSH Q4H PRN Pain Rated 7-10 Naloxone HCl 0.1 mg 05/09/24 17:37 Naloxone Hcl 0.4 Mg/Ml Vial IV PUSH Q5MIN PRN Sedation Olmesartan 40 mg 05/10/24 09:00 Olmesartan Medoxomil 20 Mg Tablet PO QAM [facility] Ondansetron HCl 4 mg 05/09/24 17:05 Ondansetron Inj 4 Mg/2 Ml Vial IV PUSH Q4H PRN Nausea Pantoprazole Sodium 40 mg 05/10/24 09:00 Pantoprazole 40 Mg Tablet PO QAM [facility] Potassium Chloride 10 meq 05/10/24 09:00 Potassium Chloride 10 Meq Er Tablet PO DAILY [facility] Tramadol HCl 50 mg 05/09/24 21:35 05/09/24 22:38 Tramadol Hcl (*Crx) 50 Mg Tablet PO 50 mg HS [facility] Administration Trazodone HCl 200 mg 05/09/24 21:35 05/09/24 22:38 Trazodone Hcl 50 Mg Tablet PO 200 mg HS [facility] Administration Radiology Results: ITS Impressions Abdomen/Pelvis CT 05/09/24 15:57 IMPRESSION: 1. Diverticulitis at the ascending and descending colon, the latter with likely mitral perforation but without evident abscess. Labs Labs: Laboratory Results - last 24 hr 05/09/24 05/10/24 05/10/24 15:17 03:08 05:27 WBC 13.6 H 11.1 H RBC 3.89 L 3.45 L Hgb 12.4 10.8 L Hct 37.7 34.3 L MCV 96.9 99.4 MCH 31.9 31.3 MCHC 32.9 31.5 L RDW 13.6 13.8 Plt Count 399 H 276 MPV 10.0 9.9 Immature Gran % (Auto) 2.8 H 0.6 H Neut % (Auto) 77.4 H 73.6 H Lymph % (Auto) 9.8 L 14.4 L Isabela % (Auto) 8.9 H 10.3 H Eos % (Auto) 0.7 0.7 Baso % (Auto) 0.4 0.4 Lymph # (Auto) 1.33 1.60 Isabela # (Auto) 1.2 H 1.1 H Eos # (Auto) 0.1 0.1 Baso # (Auto) 0.1 0.1 Abs Immat Gran (auto) 0.38 H 0.07 H Absolute Neuts (auto) 10.6 H 8.2 H Absolute Nucleated RBC 0.000 0.000 Nucleated RBC % 0.0 0.0 Sodium 136 L 137 Potassium 3.4 3.6 Chloride 103 109 H Carbon Dioxide 28 20 L Anion Gap 5 8 BUN 35 H D 30 H Creatinine 2.70 H 2.10 H Estim Creat Clear Calc 21 24 Estimated GFR 17 L 23 L Glucose 129 H 96 Calcium 8.5 7.6 L Total Bilirubin 1.1 0.8 AST 21 18 ALT 13 10 Alkaline Phosphatase 88 73 Total Protein 7.0 5.0 L Albumin 3.2 L 2.4 L Lipase 54 Urine Color Dark yellow Urine Appearance Clear Urine pH 5.0 Ur Specific [place] 1.016 Urine Protein Trace Urine Glucose (UA) Negative Urine Ketones Negative Ur Blood (Man) Negative Urine Nitrate Negative Urine Bilirubin Negative Urine Urobilinogen 1.0 Leukocyte Esterase Rfl Trace H Urine RBC 0-2 Urine WBC 0-5 Ur Squamous Epith Cells None seen Quality VTE Prophylaxis VTE prophylaxis: mechanical ordered
[2024-05-10 08:14] VITALS: PULSE 85
[2024-05-10] MEDS: METOPROLOL TARTRATE 50 MG TAB PO ×2 (08:14→20:56)
[2024-05-10] MEDS: metroNIDAZOLE 500 MG/ISO 100ML 500 MG/100 ML BAG 100 MG IVPB ×2 (08:14→16:43)
[2024-05-10] MEDS: POTASSIUM CHLORIDE 10 MEQ ER TABLET PO (08:15)
[2024-05-10] MEDS: OLMESARTAN MEDOXOMIL 20 MG TABLET 40 MG PO (08:15)
[2024-05-10] MEDS: hydroCHLOROthiazide 12.5 MG CAPSULE PO (08:15)
[2024-05-10] MEDS: MONTELUKAST SODIUM 10 MG TABLET PO (08:15)
[2024-05-10] MEDS: PANTOPRAZOLE 40 MG TABLET PO (08:15)
[2024-05-10 09:11] LABS: Thyroid Stimulating Hormone Reflex 0.616 uIU/mL (0.465-4.68)
[2024-05-10] MEDS: MORPHINE SULFATE (*CRX) 4 MG/ML INJ IV PUSH (10:02)
--- NOTE | 2024-05-10 10:47 | P.CONGS_ITS ---
Assessment and Plan Assessment and plan (1) Diverticulitis of intestine with perforation without abscess: Qualifiers: Diverticulitis site: large intestine Diverticulitis bleeding: without bleeding Qualified Code(s): K57.20 - Diverticulitis of large intestine with perforation and abscess without bleeding Code(s): K57.80 - Diverticulitis of intestine, part unspecified, with perforation and abscess without bleeding Status: Acute Assessment and Plan: Patient seems to be healing well with just overnight antibiotics. Her abdomen is tender now only to deep palpation and her white blood cell count is improving. Continue IV antibiotics but will go ahead and start full liquids. If does well, can be advanced to low-fiber diet tomorrow. Plan for patient to be discharged low-fiber diet for 2 weeks. There is no record in web expanse of her having had a colonoscopy. Unless she has had 1 at another facility, colonoscopy would be advisable in 4-6 weeks. History of Present Illness Consult details Consult date: 05/10/24 Reason for consult: abdominal pain Requesting physician: Juanjo Parker PA-C Narrative: Patient is a 73-year-old woman who tells me she has had stomach problems for a month. She will notice epigastric pain and the pain will then radiate down towards her pubis. This was off and on and not particularly severe. Within the last week however, she has also noticed her stools had become loose and she was nauseated with perception of fever and chills. She has had diverticulitis in the past and came to the emergency room yesterday[place] [id number]. She was noted to have tenderness in the abdomen particularly the left lower quadrant. She had a CT scan of the abdomen and pelvis which described ascending and descending colon diverticulitis with micro perforation in the descending colon area. Review of previous imaging shows that in October of [address] scan diverticulitis of the hepatic flexure and also possibly the sigmoid area. She had another CT scan in December of 2021 which showed diverticulitis of the sigmoid colon. Patient has had a previous C- section, [facility], and has also had an open cholecystectomy with incidental appendectomy. She was admitted to the hospital and tells me that she feels quite a bit better today. Her abdominal pain is much improved but not gone. She is seen now in consultation. Additional review of old records show that in November of 2021 she tested positive for C difficile toxin and was treated. This was, of course, following her episode of diverticulitis in October and prior to the diverticulitis in December. Review of Systems 2 Review of Systems: All systems reviewed & are unremarkable except as noted in HPI and below (HPI) [facility] Past Medical History Medical History Anxiety Postmenopausal Hypothyroidism Gout Sleep apnea Intolerant of CPAP COPD (chronic obstructive pulmonary disease) Diverticulitis C. difficile colitis 2021 CKD (chronic kidney disease) Diarrhea Hypertension Surgical History Surgical History History of hysterectomy History of cholecystectomy Family History Family History Other Family history of malignant neoplasm Social History Social History Smoking packs per day: 1 Smoking cigarettes per day: 20.0 Years smoked: 3 Smoking pack-years: 3.00 Smoking status: Former smoker Tobacco type: cigarettes Alcohol intake: never Substance use: never Do You Feel Safe in your Home?: Yes Lack of Transportation: YES Lack of Food: Never True Current Housing: I Have Housing Concerned About Future Housing: No Difficulty Paying Gas/Electric Bills: No Difficulty Paying for Meds: No Currently Unemployed: No Education: Grade School Difficulty w/ Childcare or Family Care: No Spiritual care concerns: No Meds Home Medications and Allergies Home Medications ?Medication ?Instructions ?Recorded ?Confirmed ?Type esomeprazole magnesium 40 mg 1 cap PO 2XD 11/23/21 05/09/24 History capsule,delayed release (Nexium) levothyroxine 75 mcg tablet 1 tablet PO DAILY 11/23/21 05/09/24 History (Synthroid) metoprolol tartrate 50 mg tablet 1 tablet PO BID 11/23/21 05/09/24 History (Lopressor) montelukast 10 mg tablet 1 tablet PO DAILY 11/23/21 05/09/24 History (Singulair) olmesartan 40 1 tablet PO DAILY 11/23/21 05/09/24 History mg-hydrochlorothiazide 12.5 mg tablet (Benicar HCT) potassium chloride 10 mEq 1 tablet PO DAILY 11/23/21 05/09/24 History tablet,extended release (Klor-Con) trazodone 100 mg tablet 2 tablet PO HS 11/23/21 05/09/24 History alprazolam 1 mg tablet 1 mg PO QID PRN anxiety 05/09/24 05/09/24 History tramadol 50 mg tablet 50 mg PO HS 05/09/24 05/09/24 History Allergies Allergy/AdvReac Type Severity Reaction Status Date / Time No Known Allergies Allergy Mild Verified 08/07/22 13:46 Vital Signs Vital Signs - 24 hr 05/09/24 14:51 05/09/24 16:57 05/09/24 20:14 Temperature 36.6 C 36.4 C L 36.4 C Pulse Rate 81 82 80 Respiratory Rate 18 22 H 16 Blood Pressure 112/68 137/77 116/61 Pulse Oximetry 98 99 98 Oxygen Delivery Room Air 05/10/24 06:00 05/10/24 08:14 Temperature 36.2 C L Pulse Rate 85 85 Respiratory Rate 16 Blood Pressure 119/68 Pulse Oximetry 98 Oxygen Delivery Exam 2 Const: General: cooperative, comfortable, no acute distress, alert, awake and obese Orientation/consciousness: patient oriented x3 and No confusion HENMT: Head: normocephalic and atraumatic Mouth: Yes Normal oral and palatal mucosa present Eyes: Conjunctivae: conjunctivae normal Pupils: Equal, round and reactive pupils present EOM: EOMs intact bilaterally Neck: Neck: normal visual inspection, no lymphadenopathy and nontender Resp: Effort & Inspection: normal respiratory effort Auscultation: clear to auscultation bilaterally Cardio: Rate: regular rate Rhythm: regular rhythm Heart sounds: no gallops, no murmurs and no rubs GI: Inspection: non-distended, scar (Large right subcostal scar from cholecystectomy) and no visible herniation GI Palp: Yes Soft to palpation, Yes Tenderness to palpation present (GI) (Deep palpation only left lower quadrant), No Hepatomegaly present, No Splenomegaly present, No Hernia present, No Palpable mass present and No Ascites present Auscultation: Hypoactive bowel sounds present Skin: Lesions: no lesions Rashes: no rashes Neuro: General: no focal motor deficits and CN's II-XI intact bilaterally C ranial nerves: Yes Equal, round and reactive pupils present, Yes Bilaterally intact EOM present, Yes facial symmetry and Yes Midline tongue present S peech: normal speech Motor exam (neuro): 5/5 motor strength present throughout and Motor abnormalities not present Extrem: General: no clubbing, cyanosis or edema and edema Psych: Affect: normal affect Thought process: Normal thought process present Insight: Good insight present (Psych) Results Labs 05/10/24 05:27 05/10/24 05:27 Labs: Abnormal lab results 05/09/24 05/10/24 05/10/24 Range/Units 15:17 03:08 05:27 WBC 13.6 H 11.1 H (4.5-10.0) K/mm3 RBC 3.89 L 3.45 L (4.2-5.4) M/mm3 Hgb 10.8 L (12.0-15.0) g/dL Hct 34.3 L (37.0-47.0) % MCHC 31.5 L (32-36) g/dl Plt Count 399 H (150-375) k/mm3 Immature Gran % (Auto) 2.8 H 0.6 H (0-0.5) % Neut % (Auto) 77.4 H 73.6 H (45.5-73.1) % Lymph % (Auto) 9.8 L 14.4 L (18.3-44.2) % [place] % (Auto) 8.9 H 10.3 H (2.6-8.5) % [place] # (Auto) 1.2 H 1.1 H (0.1-0.6) K/mm3 Abs Immat Gran (auto) 0.38 H 0.07 H (0.00-0.031) K/mm3 Absolute Neuts (auto) 10.6 H 8.2 H (1.3-6.7) K/mm3 Sodium 136 L (137-145) mmol/L Chloride 109 H (98-107) mmol/L Carbon Dioxide 20 L (22-30) mmol/L BUN 35 H D 30 H (7-17) mg/dL Creatinine 2.70 H 2.10 H (0.7-1.0) mg/dL Estimated GFR 17 L 23 L (59 - ) Glucose 129 H (65-110) mg/dL Calcium 7.6 L (8.4-10.2) mg/dL Total Protein 5.0 L (6.3-8.2) g/dL Albumin 3.2 L 2.4 L (3.5-5.1) g/dL Leukocyte Esterase Rfl Trace H (Negative) ELDA/UL Diabetes panel 05/09/24 05/10/24 Range/Units 15:17 05:27 Sodium 136 L 137 (137-145) mmol/L Potassium 3.4 3.6 (3.4-5.0) mmol/L Chloride 103 109 H (98-107) mmol/L Carbon Dioxide 28 20 L (22-30) mmol/L BUN 35 H D 30 H (7-17) mg/dL Creatinine 2.70 H 2.10 H (0.7-1.0) mg/dL Glucose 129 H 96 (65-110) mg/dL Calcium 8.5 7.6 L (8.4-10.2) mg/dL AST 21 18 (14-36) U/L ALT 13 10 (6-35) U/L Alkaline Phosphatase 88 73 (38-126) U/L Total Protein 7.0 5.0 L (6.3-8.2) g/dL Albumin 3.2 L 2.4 L (3.5-5.1) g/dL Calcium panel 05/09/24 05/10/24 Range/Units 15:17 05:27 Calcium 8.5 7.6 L (8.4-10.2) mg/dL Albumin 3.2 L 2.4 L (3.5-5.1) g/dL Pituitary panel 05/09/24 05/10/24 Range/Units 15:17 05:27 Sodium 136 L 137 (137-145) mmol/L Potassium 3.4 3.6 (3.4-5.0) mmol/L Chloride 103 109 H (98-107) mmol/L Carbon Dioxide 28 20 L (22-30) mmol/L BUN 35 H D 30 H (7-17) mg/dL Creatinine 2.70 H 2.10 H (0.7-1.0) mg/dL Glucose 129 H 96 (65-110) mg/dL Calcium 8.5 7.6 L (8.4-10.2) mg/dL Adrenal panel 05/09/24 05/10/24 Range/Units 15:17 05:27 Sodium 136 L 137 (137-145) mmol/L Potassium 3.4 3.6 (3.4-5.0) mmol/L Chloride 103 109 H (98-107) mmol/L Carbon Dioxide 28 20 L (22-30) mmol/L BUN 35 H D 30 H (7-17) mg/dL Creatinine 2.70 H 2.10 H (0.7-1.0) mg/dL Glucose 129 H 96 (65-110) mg/dL Calcium 8.5 7.6 L (8.4-10.2) mg/dL Total Bilirubin 1.1 0.8 (0.2-1.3) mg/dL AST 21 18 (14-36) U/L ALT 13 10 (6-35) U/L Alkaline Phosphatase 88 73 (38-126) U/L Total Protein 7.0 5.0 L (6.3-8.2) g/dL Albumin 3.2 L 2.4 L (3.5-5.1) g/dL All other labs normal. Imaging Abdomen CT scan report/results: report reviewed and image reviewed CT scan - pelvis: report reviewed and image reviewed
[2024-05-10] MEDS: ENOXAPARIN 30 MG/0.3 ML SYRINGE SUB-Q (11:38)
[2024-05-10] MEDS: ONDANSETRON INJ 4 MG/2 ML VIAL IV PUSH (11:39)
[2024-05-10 13:36] VITALS: BMI 34.5
[2024-05-10 13:56] VITALS: BP 90/52; PULSE 80; RESP 17; TEMP 36.2; O2SAT 96
[2024-05-10] MEDS: traMADol HCL (*CRX) 50 MG TABLET PO (20:56)
[2024-05-10] MEDS: traZODone HCL 50 MG TABLET 200 MG PO (20:56)
[2024-05-10 22:00] VITALS: BP 109/55; PULSE 86; RESP 18; TEMP 36.5; O2SAT 97
[2024-05-11] MEDS: SODIUM CHLORIDE 0.9% IV 1,000 ML 125 ML IV CONT ×3 (01:08→20:44)
[2024-05-11] MEDS: metroNIDAZOLE 500 MG/ISO 100ML 500 MG/100 ML BAG 100 MG IVPB ×4 (01:08→23:33)
[2024-05-11 05:41] LABS: Hematocrit 30.6 % (37.0-47.0); Hemoglobin 9.5 g/dL (12.0-15.0); Mean Corpuscular Hemoglobin 31.9 pg (26-34); Mean Corpuscular Volume 102.7 fl (80-100); Mean Platelet Volume 9.9 fl (7.4-10.4); Platelet Count Result 171 k/mm3 (150-375); Red Blood Count 2.98 M/mm3 (4.2-5.4); Red Cell Distribution Width 14.3 % (11.5-14.5); White Blood Count 9.4 K/mm3 (4.5-10.0)
[2024-05-11] MEDS: LEVOTHYROXINE SODIUM 75 MCG TABLET PO (05:49)
[2024-05-11] MEDS: CEFEPIME 1 GM/NS 50 ML 1 GM/50 ML BAG IVPB ×2 (05:49→17:31)
[2024-05-11 06:00] VITALS: BP 104/48; PULSE 76; RESP 18; TEMP 36.4; O2SAT 96
[2024-05-11 07:07] LABS: Anion Gap 8 mmol/L (4-12); Blood Urea Nitrogen 29 mg/dL (7-17); Calcium 7.3 mg/dL (8.4-10.2); Carbon Dioxide 15 mmol/L (22-30); Chloride 114 mmol/L (98-107); Estimated CRCL calculation 23 ml/min; Estimated Glomerular Filt Rate 22; Glucose 87 mg/dL (65-110); Sodium 137 mmol/L (137-145)
--- NOTE | 2024-05-11 08:19 | P.PNIM_ITS ---
Progress Note: A&P Assessment and Plan (1) Diverticulitis: Code(s): K57.92 - Diverticulitis of intestine, part unspecified, without perforation or abscess without bleeding Status: Acute Assessment and Plan: - did not meet SIRS criteria, WBC only. - CT abdomen/pelvis: Diverticulitis at the ascending and descending colon, the latter with likely mild perforation but without evidence abscess - IV fluids: 1L bolus -> 125 mL/hr, monitor I&Os, and DC when appropriate - analgesics and antipyretics p.r.n. - Antibiotics: cefepime and Flagyl started on 05/09 - Diet: full liquid diet - serial abdominal exams - Monitor vital signs, I&Os, track stool output, watch for bloody stools, neuro status and patient is a fall risk - Monitor serum electrolytes and CBC - general surgery consulted, awaiting formal recs Continue IV antibiotics If does well, can be advanced to low-fiber diet tomorrow. Plan for patient to be discharged low-fiber diet for 2 weeks. There is no colonoscopy records. Unless she has had one at another facility, colonoscopy would be advisable in 4-6 weeks. (2) CKD (chronic kidney disease): Qualifiers: Chronic kidney disease stage: unspecified stage Qualified Code(s): N18.9 - Chronic kidney disease, unspecified Code(s): N18.9 - Chronic kidney disease, unspecified Status: Chronic Assessment and Plan: BUN/Cr 35/2.7 on admission, baseline appears to be 1.4-2.2 - BUN/Cr 29/2.2 on am labs - renally dose medications - avoid nephrotoxic medications - trend renal function - trend electrolytes, correct as needed (3) Hypertension: Qualifiers: Hypertension type: primary hypertension Qualified Code(s): I10 - Essential (primary) hypertension Code(s): I10 - Essential (primary) hypertension Status: Chronic Assessment and Plan: - chronic - home medications: Metoprolol 50 mg b.i.d., olmesartan-hydrochlorothiazide 40- 12.5 mg daily - continue metoprolol 50 mg BID and olmesartan 40 mg daily, HCTZ 12.5 mg daily on hold as patient has been borderline hypotensive - monitor (4) Hypothyroidism: Code(s): E03.9 - Hypothyroidism, unspecified Status: Acute Assessment and Plan: Chronic, continue home medication - Synthroid 75 mcg daily Plan Diet: Clear liquid GI Prophylaxis: Not currently indicated DVT Prophylaxis: SCDs Lines: Peripheral Code Status: Full code Time Spent With Patient Time with patient: 25 - 35 minutes Subjective Date/time seen: 05/11/24 08:19 Interval history: 73 y/o F presents here with abdominal pain with PMH of hypertension, SRIRAM intol erant of CPAP, agoraphobia, hypothyroidism, COPD, gout, and anxiety. Patient is pleasant lying comfortably in bed. She continues to endorse LLQ pain requiring pain management. She notes that she did have an episode of emesis with her breakfast this morning, but was later able to finish her oatmeal. She had a bout of diarrhea today but denies any blood in the stool. She has no other complaints denying chest pain, shortness of breath and palpitations. She notes that at home she has been feeling increasingly unsteady in her gait, having to grab on to nearby objects/duarte to maintain her balance. Will consult PT during this admission for discharge recommendations. Review of Systems Review of Systems: All systems reviewed & are unremarkable except as noted in HPI and below Exam Narrative: AF HR 76 RR 18 Spo2 96 BP 104/48 General: female in no acute respiratory distress who is nontoxic appearing, lying semi recumbent in bed. HEENT: Normocephalic. Atraumatic. Extraocular movement intact. Sclera clear and anicteric. No facial asymmetry. Chest: Lungs are clear to auscultation bilaterally. No wheezes or crackles. CV: Heart was regular rate and rhythm. S1-S2. No murmurs, gallops, or rubs. Abd: Abdomen was soft. Tenderness to LLQ. Nondistended. Positive bowel sounds. No organomegaly or masses. Neuro: Patient is alert. Speech is clear. Objective Data Vital Signs Vital Signs: Vital Signs - 24 hr 05/10/24 13:56 05/10/24 22:00 05/11/24 06:00 Temperature 97.2 F L 97.7 F 97.5 F L Pulse Rate 80 86 76 Respiratory Rate 17 18 18 Blood Pressure 90/52 L 109/55 L 104/48 L Pulse Oximetry 96 97 96 Intake/Output Intake/Output: Intake & Output 05/08/24 05/09/24 05/10/24 05/11/24 23:59 23:59 23:59 23:59 Intake Total 1050 3315 775 Output Total 250 Balance 1050 3065 775 Meds/Results Medications: Active Medications Generic Name Dose Route Start Last Admin Trade Name Freq PRN Reason Stop Dose Admin Acetaminophen 650 mg 05/09/24 17:35 Acetaminophen 325 Mg Tablet PO Q6H PRN Mild Pain (1-3) or Fever Alprazolam 1 mg 05/09/24 20:14 Alprazolam (*Crx) 0.5 Mg Tablet PO QID PRN anxiety Enoxaparin Sodium 30 mg 05/11/24 09:00 Enoxaparin 30 Mg/0.3 Ml Syringe SUB-Q DAILY SOLITARIO Hydrochlorothiazide 12.5 mg 05/10/24 09:00 05/10/24 08:15 Hydrochlorothiazide 12.5 Mg Capsule PO 12.5 mg QAM SOLITARIO Administration Hydromorphone HCl 0.5 mg 05/09/24 17:05 Hydromorphone Hcl Inj (*Crx) 1 Mg/Ml Syr IV PUSH Q4H PRN Pain Rated 7-10 Sodium Chloride 1,000 mls @ 125 mls/hr 05/09/24 17:05 05/11/24 01:08 Normal Saline Iv IV CONT 125 mls/hr .Q8H SOLITARIO Administration Cefepime HCl 1 gm in 50 mls @ 100 mls/hr 05/10/24 06:00 05/11/24 06:19 Maxipime 1 Gm/Ns 50 Ml IVPB Infused Q12H SOLITARIO Infusion Metronidazole 500 mg in 100 mls @ 100 mls/hr 05/10/24 00:00 05/11/24 02:08 Flagyl 500 Mg/Iso Soln 100 Ml IVPB Infused Q8H SOLITARIO Infusion Levothyroxine Sodium 75 mcg 05/10/24 06:30 05/11/24 05:49 Levothyroxine Sodium 75 Mcg Tablet PO 75 mcg DAILY@0630 SOLITARIO Administration Metoprolol Tartrate 50 mg 05/10/24 09:00 05/10/24 20:56 Metoprolol Tartrate 50 Mg Tab PO 50 mg Q12HR SOLITARIO Administration Montelukast Sodium 10 mg 05/10/24 09:00 05/10/24 08:15 Montelukast Sodium 10 Mg Tablet PO 10 mg DAILY SOLITARIO Administration Morphine Sulfate 2 mg 05/09/24 17:35 Morphine Sulfate (*Crx) 2 Mg/Ml Inj IV PUSH Q4H PRN Pain Rated 4-6 Morphine Sulfate 4 mg 05/09/24 17:35 05/10/24 10:02 Morphine Sulfate (*Crx) 4 Mg/Ml Inj IV PUSH 4 mg Q4H PRN Administration Pain Rated 7-10 Naloxone HCl 0.1 mg 05/09/24 17:37 Naloxone Hcl 0.4 Mg/Ml Vial IV PUSH Q5MIN PRN Sedation Olmesartan 40 mg 05/10/24 09:00 05/10/24 08:15 Olmesartan Medoxomil 20 Mg Tablet PO 40 mg QAM SOLITARIO Administration Ondansetron HCl 4 mg 05/09/24 17:05 05/10/24 11:39 Ondansetron Inj 4 Mg/2 Ml Vial IV PUSH 4 mg Q4H PRN Administration Nausea Pantoprazole Sodium 40 mg 05/10/24 09:00 05/10/24 08:15 Pantoprazole 40 Mg Tablet PO 40 mg QAM SOLITARIO Administration Potassium Chloride 10 meq 05/10/24 09:00 05/10/24 08:15 Potassium Chloride 10 Meq Er Tablet PO 10 meq DAILY SOLITARIO Administration Tramadol HCl 50 mg 05/09/24 21:35 05/10/24 20:56 Tramadol Hcl (*Crx) 50 Mg Tablet PO 50 mg HS SOLITARIO Administration Trazodone HCl 200 mg 05/09/24 21:35 05/10/24 20:56 Trazodone Hcl 50 Mg Tablet PO 200 mg HS SOLITARIO Administration Radiology Results: ITS Impressions Abdomen/Pelvis CT 05/09/24 15:57 IMPRESSION: 1. Diverticulitis at the ascending and descending colon, the latter with likely mitral perforation but without evident abscess. Labs Labs: Laboratory Results - last 24 hr 05/10/24 05/11/24 05:27 05:36 WBC 9.4 RBC 2.98 L Hgb 9.5 L Hct 30.6 L MCV 102.7 H MCH 31.9 MCHC 31.0 L RDW 14.3 Plt Count 171 MPV 9.9 Sodium 137 Potassium 4.0 Chloride 114 H Carbon Dioxide 15 L Anion Gap 8 BUN 29 H Creatinine 2.20 H Estim Creat Clear Calc 23 Estimated GFR 22 L Glucose 87 Calcium 7.3 L TSH (Reflex) 0.616 Quality VTE Prophylaxis VTE prophylaxis: mechanical ordered
[2024-05-11] MEDS: OLMESARTAN MEDOXOMIL 20 MG TABLET 40 MG PO (09:22)
[2024-05-11] MEDS: METOPROLOL TARTRATE 50 MG TAB PO ×2 (09:22→20:44)
[2024-05-11] MEDS: MONTELUKAST SODIUM 10 MG TABLET PO (09:22)
[2024-05-11] MEDS: hydroCHLOROthiazide 12.5 MG CAPSULE PO (09:22)
[2024-05-11] MEDS: PANTOPRAZOLE 40 MG TABLET PO (09:22)
[2024-05-11] MEDS: ENOXAPARIN 30 MG/0.3 ML SYRINGE SUB-Q (09:22)
[2024-05-11] MEDS: POTASSIUM CHLORIDE 10 MEQ ER TABLET PO (09:22)
[2024-05-11] MEDS: MORPHINE SULFATE (*CRX) 4 MG/ML INJ IV PUSH (10:23)
[2024-05-11 15:12] VITALS: BP 101/45; PULSE 75; RESP 16; TEMP 36.5; O2SAT 97
--- NOTE | 2024-05-11 19:42 | WPDPN ---
Progress Note: A&P Assessment and Plan (1) Diverticulitis of intestine with perforation without abscess: Qualifiers: Diverticulitis site: large intestine Diverticulitis bleeding: without bleeding Qualified Code(s): K57.20 - Diverticulitis of large intestine with perforation and abscess without bleeding Code(s): K57.80 - Diverticulitis of intestine, part unspecified, with perforation and abscess without bleeding Status: Acute Assessment and Plan: Hospital day 2 after being admitted for sigmoid diverticulitis with micro perforation. White blood cell count has normalized. She has still some mild left lower quadrant abdominal pain. Did not tolerate liquids very well today and so we will stay with full liquids and advance diet. Continue IV antibiotics and supportive management. No acute surgical abdomen at this time. Subjective Date/time seen: 05/11/24 19:42 Interval history: Patient is now hospital day 2 after being admitted for sigmoid diverticulitis. Her left lower quadrant pain is mild but not totally resolved. White blood count has normalized to 9400 from 11,100 yesterday. No fever. She did try some liquids today but started having some nausea after eating. She did not want to take more p.o. after that episode. Exam GI: Other: Abdomen is obese but soft. She has mild tenderness to palpation left lower quadrant. No guarding and peritoneal signs. No acute surgical abdomen. Objective Data Vital Signs Vital Signs: Vital Signs - 24 hr 05/10/24 22:00 05/11/24 06:00 05/11/24 08:00 Temperature 36.5 C 36.4 C L Pulse Rate 86 76 Respiratory Rate 18 18 Blood Pressure 109/55 L 104/48 L Pulse Oximetry 97 96 Oxygen Delivery Room Air 05/11/24 14:28 05/11/24 15:12 05/11/24 15:25 Temperature 36.5 C Pulse Rate 75 Respiratory Rate 16 Blood Pressure 101/45 L Pulse Oximetry 97 Oxygen Delivery Room Air Room Air Intake/Output Intake/Output: Intake & Output 05/08/24 05/09/24 05/10/24 05/11/24 23:59 23:59 23:59 23:59 Intake Total 1050 3315 2465 Output Total 250 Balance 1050 3065 2465 Meds/Results Medications: Active Medications Generic Name Dose Route Start Last Admin Trade Name Freq PRN Reason Stop Dose Admin Acetaminophen 650 mg 05/09/24 17:35 Acetaminophen 325 Mg Tablet PO Q6H PRN Mild Pain (1-3) or Fever Alprazolam 1 mg 05/09/24 20:14 Alprazolam (*Crx) 0.5 Mg Tablet PO QID PRN anxiety Enoxaparin Sodium 30 mg 05/11/24 09:00 05/11/24 09:22 Enoxaparin 30 Mg/0.3 Ml Syringe SUB-Q 30 mg DAILY SOLITARIO Administration Hydrochlorothiazide 12.5 mg 05/10/24 09:00 05/11/24 09:22 Hydrochlorothiazide 12.5 Mg Capsule PO 12.5 mg QAM SOLITARIO Administration Sodium Chloride 1,000 mls @ 125 mls/hr 05/09/24 17:05 05/11/24 18:12 Normal Saline Iv IV CONT Not Given .Q8H SOLITARIO Cefepime HCl 1 gm in 50 mls @ 100 mls/hr 05/10/24 06:00 05/11/24 17:31 Maxipime 1 Gm/Ns 50 Ml IVPB 100 mls/hr Q12H SOLITARIO Administration Metronidazole 500 mg in 100 mls @ 100 mls/hr 05/10/24 00:00 05/11/24 16:46 Flagyl 500 Mg/Iso Soln 100 Ml IVPB Infused Q8H SOLITARIO Infusion Levothyroxine Sodium 75 mcg 05/10/24 06:30 05/11/24 05:49 Levothyroxine Sodium 75 Mcg Tablet PO 75 mcg DAILY@0630 SOLITARIO Administration Metoprolol Tartrate 50 mg 05/10/24 09:00 05/11/24 09:22 Metoprolol Tartrate 50 Mg Tab PO 50 mg Q12HR SOLITARIO Administration Montelukast Sodium 10 mg 05/10/24 09:00 05/11/24 09:22 Montelukast Sodium 10 Mg Tablet PO 10 mg DAILY SOLITARIO Administration Morphine Sulfate 2 mg 05/09/24 17:35 Morphine Sulfate (*Crx) 2 Mg/Ml Inj IV PUSH Q4H PRN Pain Rated 4-6 Morphine Sulfate 4 mg 05/09/24 17:35 05/11/24 10:23 Morphine Sulfate (*Crx) 4 Mg/Ml Inj IV PUSH 4 mg Q4H PRN Administration Pain Rated 7-10 Naloxone HCl 0.1 mg 05/09/24 17:37 Naloxone Hcl 0.4 Mg/Ml Vial IV PUSH Q5MIN PRN Sedation Olmesartan 40 mg 05/10/24 09:00 05/11/24 09:22 Olmesartan Medoxomil 20 Mg Tablet PO 40 mg QAM SOLITARIO Administration Ondansetron HCl 4 mg 05/09/24 17:05 05/10/24 11:39 Ondansetron Inj 4 Mg/2 Ml Vial IV PUSH 4 mg Q4H PRN Administration Nausea Pantoprazole Sodium 40 mg 05/10/24 09:00 05/11/24 09:22 Pantoprazole 40 Mg Tablet PO 40 mg QAM SOLITARIO Administration Potassium Chloride 10 meq 05/10/24 09:00 05/11/24 09:22 Potassium Chloride 10 Meq Er Tablet PO 10 meq DAILY SOLITARIO Administration Tramadol HCl 50 mg 05/09/24 21:35 05/10/24 20:56 Tramadol Hcl (*Crx) 50 Mg Tablet PO 50 mg HS SOLITARIO Administration Tramadol HCl 25 mg 05/11/24 12:02 Tramadol Hcl (*Crx) 25 Mg Tablet PO Q6H PRN Pain Rated 4-6 Trazodone HCl 200 mg 05/09/24 21:35 05/10/24 20:56 Trazodone Hcl 50 Mg Tablet PO 200 mg HS SOLITARIO Administration Radiology Results: ITS Impressions Abdomen/Pelvis CT 05/09/24 15:57 IMPRESSION: 1. Diverticulitis at the ascending and descending colon, the latter with likely mitral perforation but without evident abscess. Labs Labs: Laboratory Results - last 24 hr 05/11/24 05:36 WBC 9.4 RBC 2.98 L Hgb 9.5 L Hct 30.6 L MCV 102.7 H MCH 31.9 MCHC 31.0 L RDW 14.3 Plt Count 171 MPV 9.9 Sodium 137 Potassium 4.0 Chloride 114 H Carbon Dioxide 15 L Anion Gap 8 BUN 29 H Creatinine 2.20 H Estim Creat Clear Calc 23 Estimated GFR 22 L Glucose 87 Calcium 7.3 L
[2024-05-11 20:22] VITALS: BP 118/60; PULSE 80; RESP 18; TEMP 36.5; O2SAT 97
[2024-05-11] MEDS: traZODone HCL 50 MG TABLET 200 MG PO (20:44)
[2024-05-11] MEDS: traMADol HCL (*CRX) 50 MG TABLET PO (20:44)
[2024-05-11] MEDS: ONDANSETRON INJ 4 MG/2 ML VIAL IV PUSH (21:02)
[2024-05-12] MEDS: ONDANSETRON INJ 4 MG/2 ML VIAL IV PUSH ×2 (03:13→10:12)
[2024-05-12 05:45] LABS: Hematocrit 30.9 % (37.0-47.0); Hemoglobin 9.6 g/dL (12.0-15.0); Mean Corpuscular HGB Conc 31.1 g/dl (32-36); Mean Corpuscular Hemoglobin 31.2 pg (26-34); Mean Corpuscular Volume 100.3 fl (80-100); Platelet Count Result 278 k/mm3 (150-375); Red Blood Count 3.08 M/mm3 (4.2-5.4); Red Cell Distribution Width 14.5 % (11.5-14.5); White Blood Count 8.4 K/mm3 (4.5-10.0)
[2024-05-12] MEDS: CEFEPIME 1 GM/NS 50 ML 1 GM/50 ML BAG IVPB ×2 (05:53→17:34)
[2024-05-12] MEDS: LEVOTHYROXINE SODIUM 75 MCG TABLET PO (05:53)
[2024-05-12 05:57] LABS: Anion Gap 4 mmol/L (4-12); Blood Urea Nitrogen 23 mg/dL (7-17); Calcium 7.2 mg/dL (8.4-10.2); Carbon Dioxide 18 mmol/L (22-30); Chloride 115 mmol/L (98-107); Estimated CRCL calculation 23 ml/min; Estimated Glomerular Filt Rate 22; Glucose 77 mg/dL (65-110); Potassium 3.8 mmol/L (3.4-5.0); Sodium 137 mmol/L (137-145)
[2024-05-12 06:00] VITALS: BP 124/58; PULSE 70; RESP 18; TEMP 36.4; O2SAT 99
--- NOTE | 2024-05-12 07:17 | P.PNIM_ITS ---
Progress Note: A&P Assessment and Plan (1) Diverticulitis: Code(s): K57.92 - Diverticulitis of intestine, part unspecified, without perforation or abscess without bleeding Status: Acute Assessment and Plan: - did not meet SIRS criteria, WBC only. - CT abdomen/pelvis: Diverticulitis at the ascending and descending colon, the latter with likely mild perforation but without evidence abscess - IV fluids: 1L bolus -> 125 mL/hr, monitor I&Os, DC - analgesics and antipyretics p.r.n. - Antibiotics: cefepime and Flagyl started on 05/09 - Diet: advanced to low fiber diet - serial abdominal exams - Monitor vital signs, I&Os, track stool output, watch for bloody stools, neuro status and patient is a fall risk - Monitor serum electrolytes and CBC - general surgery consulted, awaiting formal recs Continue IV antibiotics If does well, can be advanced to low-fiber diet tomorrow. Plan for patient to be discharged low-fiber diet for 2 weeks. There is no colonoscopy records. Unless she has had one at another facility, colonoscopy would be advisable in 4-6 weeks. 05/12: Patient continues to have nausea with an emesis episode today, however was able to tolerate the full liquid diet later on. She will be advanced to low fiber diet tonight. (2) CKD (chronic kidney disease): Qualifiers: Chronic kidney disease stage: unspecified stage Qualified Code(s): N18.9 - Chronic kidney disease, unspecified Code(s): N18.9 - Chronic kidney disease, unspecified Status: Chronic Assessment and Plan: BUN/Cr 35/2.7 on admission, baseline appears to be 1.4-2.2 - BUN/Cr 23/2.2 on am labs - renally dose medications - avoid nephrotoxic medications - trend renal function - trend electrolytes, correct as needed (3) Hypertension: Qualifiers: Hypertension type: primary hypertension Qualified Code(s): I10 - Essential (primary) hypertension Code(s): I10 - Essential (primary) hypertension Status: Chronic Assessment and Plan: - chronic - home medications: Metoprolol 50 mg b.i.d., olmesartan-hydrochlorothiazide 40- 12.5 mg daily - continue metoprolol 50 mg BID and olmesartan 40 mg daily, HCTZ 12.5 mg daily on hold as patient has been borderline hypotensive - monitor (4) Hypothyroidism: Code(s): E03.9 - Hypothyroidism, unspecified Status: Acute Assessment and Plan: Chronic, continue home medication - Synthroid 75 mcg daily Plan Diet: Clear liquid GI Prophylaxis: Not currently indicated DVT Prophylaxis: SCDs Lines: Peripheral Code Status: Full code Time Spent With Patient Time with patient: 25 - 35 minutes Subjective Date/time seen: 05/12/24 07:17 Interval history: 73 y/o F presents here with abdominal pain with PMH of hypertension, SRIRAM intolerant of CPAP, agoraphobia, hypothyroidism, COPD, gout, and anxiety. Patient is pleasant sitting up comfortably in bed. She states that she is feeling okay today, but did have an episode of emesis after drinking orange juice with breakfast. She was able to eat 1/2 of her oatmeal afterward and denies any emesis or increase abdominal pain at that time. She denies any abdominal pain currently. She also denies chest pain, palpitations and shortness of breath. Review of Systems Review of Systems: All systems reviewed & are unremarkable except as noted in HPI and below Exam Narrative: AF HR 70 RR 18 Spo2 99 BP 124/58 General: female in no acute respiratory distress who is nontoxic appearing, sitting up in bed. HEENT: Normocephalic. Atraumatic. Extraocular movement intact. Sclera clear and anicteric. No facial asymmetry. Chest: Lungs are clear to auscultation bilaterally. No wheezes or crackles. CV: Heart was regular rate and rhythm. S1-S2. No murmurs, gallops, or rubs. Abd: Abdomen was soft. Nontender. Nondistended. Positive bowel sounds. No organomegaly or masses. Neuro: Patient is alert. Speech is clear. Objective Data Vital Signs Vital Signs: Vital Signs - 24 hr 05/11/24 08:00 05/11/24 14:28 05/11/24 15:12 Temperature 97.7 F Pulse Rate 75 Respiratory Rate 16 Blood Pressure 101/45 L Pulse Oximetry 97 Oxygen Delivery Room Air Room Air 05/11/24 15:25 05/11/24 20:00 05/11/24 20:22 Temperature 97.7 F Pulse Rate 80 Respiratory Rate 18 Blood Pressure 118/60 Pulse Oximetry 97 Oxygen Delivery Room Air Room Air 05/12/24 06:00 Temperature 97.5 F L Pulse Rate 70 Respiratory Rate 18 Blood Pressure 124/58 L Pulse Oximetry 99 Oxygen Delivery Intake/Output Intake/Output: Intake & Output 05/09/24 05/10/24 05/11/24 05/12/24 23:59 23:59 23:59 23:59 Intake Total 1050 3315 3515 75 Output Total 250 Balance 1050 3065 3515 75 Meds/Results Medications: Active Medications Generic Name Dose Route Start Last Admin Trade Name Freq PRN Reason Stop Dose Admin Acetaminophen 650 mg 05/09/24 17:35 Acetaminophen 325 Mg Tablet PO Q6H PRN Mild Pain (1-3) or Fever Alprazolam 1 mg 05/09/24 20:14 Alprazolam (*Crx) 0.5 Mg Tablet PO QID PRN anxiety Enoxaparin Sodium 30 mg 05/11/24 09:00 05/11/24 09:22 Enoxaparin 30 Mg/0.3 Ml Syringe SUB-Q 30 mg DAILY SOLITARIO Administration Hydrochlorothiazide 12.5 mg 05/10/24 09:00 05/11/24 09:22 Hydrochlorothiazide 12.5 Mg Capsule PO 12.5 mg QAM SOLITARIO Administration Sodium Chloride 1,000 mls @ 125 mls/hr 05/09/24 17:05 05/11/24 20:44 Normal Saline Iv IV CONT 125 mls/hr .Q8H SOLITARIO Administration Cefepime HCl 1 gm in 50 mls @ 100 mls/hr 05/10/24 06:00 05/12/24 05:53 Maxipime 1 Gm/Ns 50 Ml IVPB 100 mls/hr Q12H SOLITARIO Administration Metronidazole 500 mg in 100 mls @ 100 mls/hr 05/10/24 00:00 05/11/24 23:33 Flagyl 500 Mg/Iso Soln 100 Ml IVPB 100 mls/hr Q8H SOLITARIO Administration Levothyroxine Sodium 75 mcg 05/10/24 06:30 05/12/24 05:53 Levothyroxine Sodium 75 Mcg Tablet PO 75 mcg DAILY@0630 SOLITARIO Administration Metoprolol Tartrate 50 mg 05/10/24 09:00 05/11/24 20:44 Metoprolol Tartrate 50 Mg Tab PO 50 mg Q12HR SOLITARIO Administration Montelukast Sodium 10 mg 05/10/24 09:00 05/11/24 09:22 Montelukast Sodium 10 Mg Tablet PO 10 mg DAILY SOLITARIO Administration Morphine Sulfate 2 mg 05/09/24 17:35 Morphine Sulfate (*Crx) 2 Mg/Ml Inj IV PUSH Q4H PRN Pain Rated 4-6 Morphine Sulfate 4 mg 05/09/24 17:35 05/11/24 10:23 Morphine Sulfate (*Crx) 4 Mg/Ml Inj IV PUSH 4 mg Q4H PRN Administration Pain Rated 7-10 Naloxone HCl 0.1 mg 05/09/24 17:37 Naloxone Hcl 0.4 Mg/Ml Vial IV PUSH Q5MIN PRN Sedation Olmesartan 40 mg 05/10/24 09:00 05/11/24 09:22 Olmesartan Medoxomil 20 Mg Tablet PO 40 mg QAM SOLITARIO Administration Ondansetron HCl 4 mg 05/09/24 17:05 05/12/24 03:13 Ondansetron Inj 4 Mg/2 Ml Vial IV PUSH 4 mg Q4H PRN Administration Nausea Pantoprazole Sodium 40 mg 05/10/24 09:00 05/11/24 09:22 Pantoprazole 40 Mg Tablet PO 40 mg QAM SOLITARIO Administration Potassium Chloride 10 meq 05/10/24 09:00 05/11/24 09:22 Potassium Chloride 10 Meq Er Tablet PO 10 meq DAILY SOLITARIO Administration Tramadol HCl 50 mg 05/09/24 21:35 05/11/24 20:44 Tramadol Hcl (*Crx) 50 Mg Tablet PO 50 mg HS SOLITARIO Administration Tramadol HCl 25 mg 05/11/24 12:02 Tramadol Hcl (*Crx) 25 Mg Tablet PO Q6H PRN Pain Rated 4-6 Trazodone HCl 200 mg 05/09/24 21:35 05/11/24 20:44 Trazodone Hcl 50 Mg Tablet PO 200 mg HS SOLITARIO Administration Radiology Results: ITS Impressions Abdomen/Pelvis CT 05/09/24 15:57 IMPRESSION: 1. Diverticulitis at the ascending and descending colon, the latter with likely mitral perforation but without evident abscess. Labs Labs: Laboratory Results - last 24 hr 05/12/24 05:23 WBC 8.4 RBC 3.08 L Hgb 9.6 L Hct 30.9 L MCV 100.3 H MCH 31.2 MCHC 31.1 L RDW 14.5 Plt Count 278 D MPV 10.0 Sodium 137 Potassium 3.8 Chloride 115 H Carbon Dioxide 18 L Anion Gap 4 BUN 23 H Creatinine 2.20 H Estim Creat Clear Calc 23 Estimated GFR 22 L Glucose 77 Calcium 7.2 L Quality VTE Prophylaxis VTE prophylaxis: mechanical ordered
[2024-05-12 07:30] LABS: Iron 50 ug/dL (37-170)
[2024-05-12 07:39] LABS: Percent Iron Saturation 34 % (20-50); TOTAL IRON BINDING CAPACITY 145 ug/dL (261-462)
[2024-05-12 08:37] LABS: Folic Acid 3.7 ng/mL (2.76->20)
[2024-05-12] MEDS: SODIUM CHLORIDE 0.9% IV 1,000 ML 125 ML IV CONT (08:58)
[2024-05-12] MEDS: MONTELUKAST SODIUM 10 MG TABLET PO (08:59)
[2024-05-12] MEDS: ENOXAPARIN 30 MG/0.3 ML SYRINGE SUB-Q (08:59)
[2024-05-12] MEDS: metroNIDAZOLE 500 MG/ISO 100ML 500 MG/100 ML BAG 100 MG IVPB ×2 (08:59→16:43)
[2024-05-12] MEDS: POTASSIUM CHLORIDE 10 MEQ ER TABLET PO (09:00)
[2024-05-12] MEDS: OLMESARTAN MEDOXOMIL 20 MG TABLET 40 MG PO (09:00)
[2024-05-12] MEDS: METOPROLOL TARTRATE 50 MG TAB PO ×2 (09:00→20:42)
[2024-05-12] MEDS: PANTOPRAZOLE 40 MG TABLET PO (09:00)
--- NOTE | 2024-05-12 11:29 | WPDPN ---
Progress Note: A&P Assessment and Plan (1) Diverticulitis of intestine with perforation without abscess: Qualifiers: Diverticulitis site: large intestine Diverticulitis bleeding: without bleeding Qualified Code(s): K57.20 - Diverticulitis of large intestine with perforation and abscess without bleeding Code(s): K57.80 - Diverticulitis of intestine, part unspecified, with perforation and abscess without bleeding Status: Acute Assessment and Plan: Patient continues to do better. Aside from her nausea she seems to be recovering from her diverticulitis with microperforation well with non operative management. We will go ahead advanced to a low fiber solid food diet today and see how she tolerates this. Continue IV antibiotics for today. Likely discharge tomorrow on low-fiber diet and oral antibiotics at home. Subjective Date/time seen: 05/12/24 11:29 Interval history: Patient states that she does feel better today. Really no left lower quadrant abdominal pain. She has been trying to eat some full liquids but having some nausea. No increasing pain with the nausea or eating. White blood count is normalized. No fever. She had some bowel movements yesterday which were loose. Exam GI: Other: Abdomen is soft and nondistended. No tenderness the left lower quadrant the abdomen. Exam is benign. Objective Data Vital Signs Vital Signs: Vital Signs - 24 hr 05/11/24 14:28 05/11/24 15:12 05/11/24 15:25 Temperature 36.5 C Pulse Rate 75 Respiratory Rate 16 Blood Pressure 101/45 L Pulse Oximetry 97 Oxygen Delivery Room Air Room Air 05/11/24 20:00 05/11/24 20:22 05/12/24 06:00 Temperature 36.5 C 36.4 C L Pulse Rate 80 70 Respiratory Rate 18 18 Blood Pressure 118/60 124/58 L Pulse Oximetry 97 99 Oxygen Delivery Room Air 05/12/24 08:00 Temperature Pulse Rate Respiratory Rate Blood Pressure Pulse Oximetry Oxygen Delivery Room Air Intake/Output Intake/Output: Intake & Output 05/09/24 05/10/24 05/11/24 05/12/24 23:59 23:59 23:59 23:59 Intake Total 1050 3315 3515 1325 Output Total 250 Balance 1050 3065 3515 1325 Meds/Results Medications: Active Medications Generic Name Dose Route Start Last Admin Trade Name Freq PRN Reason Stop Dose Admin Acetaminophen 650 mg 05/09/24 17:35 Acetaminophen 325 Mg Tablet PO Q6H PRN Mild Pain (1-3) or Fever Alprazolam 1 mg 05/09/24 20:14 Alprazolam (*Crx) 0.5 Mg Tablet PO QID PRN anxiety Enoxaparin Sodium 30 mg 05/11/24 09:00 05/12/24 08:59 Enoxaparin 30 Mg/0.3 Ml Syringe SUB-Q 30 mg DAILY SOLITARIO Administration Hydrochlorothiazide 12.5 mg 05/10/24 09:00 05/11/24 09:22 Hydrochlorothiazide 12.5 Mg Capsule PO 12.5 mg QAM SOLITARIO Administration Sodium Chloride 1,000 mls @ 125 mls/hr 05/09/24 17:05 05/12/24 08:58 Normal Saline Iv IV CONT 125 mls/hr .Q8H SOLITARIO Administration Cefepime HCl 1 gm in 50 mls @ 100 mls/hr 05/10/24 06:00 05/12/24 06:23 Maxipime 1 Gm/Ns 50 Ml IVPB Infused Q12H SOLITARIO Infusion Metronidazole 500 mg in 100 mls @ 100 mls/hr 05/10/24 00:00 05/12/24 09:59 Flagyl 500 Mg/Iso Soln 100 Ml IVPB Infused Q8H SOLITARIO Infusion Levothyroxine Sodium 75 mcg 05/10/24 06:30 05/12/24 05:53 Levothyroxine Sodium 75 Mcg Tablet PO 75 mcg DAILY@0630 SOLITARIO Administration Metoprolol Tartrate 50 mg 05/10/24 09:00 05/12/24 09:00 Metoprolol Tartrate 50 Mg Tab PO 50 mg Q12HR SOLITARIO Administration Montelukast Sodium 10 mg 05/10/24 09:00 05/12/24 08:59 Montelukast Sodium 10 Mg Tablet PO 10 mg DAILY SOLITARIO Administration Morphine Sulfate 2 mg 05/09/24 17:35 Morphine Sulfate (*Crx) 2 Mg/Ml Inj IV PUSH Q4H PRN Pain Rated 4-6 Morphine Sulfate 4 mg 05/09/24 17:35 05/11/24 10:23 Morphine Sulfate (*Crx) 4 Mg/Ml Inj IV PUSH 4 mg Q4H PRN Administration Pain Rated 7-10 Naloxone HCl 0.1 mg 05/09/24 17:37 Naloxone Hcl 0.4 Mg/Ml Vial IV PUSH Q5MIN PRN Sedation Olmesartan 40 mg 05/10/24 09:00 05/12/24 09:00 Olmesartan Medoxomil 20 Mg Tablet PO 40 mg QAM SOLITARIO Administration Ondansetron HCl 4 mg 05/09/24 17:05 05/12/24 10:12 Ondansetron Inj 4 Mg/2 Ml Vial IV PUSH 4 mg Q4H PRN Administration Nausea Pantoprazole Sodium 40 mg 05/10/24 09:00 05/12/24 09:00 Pantoprazole 40 Mg Tablet PO 40 mg QAM SOLITARIO Administration Potassium Chloride 10 meq 05/10/24 09:00 05/12/24 09:00 Potassium Chloride 10 Meq Er Tablet PO 10 meq DAILY SOLITARIO Administration Tramadol HCl 50 mg 05/09/24 21:35 05/11/24 20:44 Tramadol Hcl (*Crx) 50 Mg Tablet PO 50 mg HS SOLITARIO Administration Tramadol HCl 25 mg 05/11/24 12:02 Tramadol Hcl (*Crx) 25 Mg Tablet PO Q6H PRN Pain Rated 4-6 Trazodone HCl 200 mg 05/09/24 21:35 05/11/24 20:44 Trazodone Hcl 50 Mg Tablet PO 200 mg HS SOLITARIO Administration Radiology Results: ITS Impressions Abdomen/Pelvis CT 05/09/24 15:57 IMPRESSION: 1. Diverticulitis at the ascending and descending colon, the latter with likely mitral perforation but without evident abscess. Labs Labs: Laboratory Results - last 24 hr 05/12/24 05/12/24 05:20 05:23 WBC 8.4 RBC 3.08 L Hgb 9.6 L Hct 30.9 L MCV 100.3 H MCH 31.2 MCHC 31.1 L RDW 14.5 Plt Count 278 D MPV 10.0 Sodium 137 Potassium 3.8 Chloride 115 H Carbon Dioxide 18 L Anion Gap 4 BUN 23 H Creatinine 2.20 H Estim Creat Clear Calc 23 Estimated GFR 22 L Glucose 77 Calcium 7.2 L Iron 50 TIBC 145 L % Saturation 34 Vitamin B12 262.0 Folate 3.7
[2024-05-12 13:53] VITALS: BP 115/58; PULSE 67; RESP 16; TEMP 36.3; O2SAT 98
[2024-05-12] MEDS: traZODone HCL 50 MG TABLET 200 MG PO (20:41)
[2024-05-12] MEDS: traMADol HCL (*CRX) 50 MG TABLET PO (20:42)
[2024-05-12 22:00] VITALS: BP 137/77; PULSE 73; RESP 18; TEMP 36.3; O2SAT 99
[2024-05-13] VITALS (8 sets, daily range): BP systolic 126–140; BP diastolic 57–105; PULSE 70–86; RESP 16–18; TEMP 36.2–36.8; O2SAT 99–100
[2024-05-13] MEDS: metroNIDAZOLE 500 MG/ISO 100ML 500 MG/100 ML BAG 100 MG IVPB ×3 (01:00→15:56)
[2024-05-13] MEDS: traMADol HCL (*CRX) 25 MG TABLET PO (01:03)
[2024-05-13 05:57] LABS: Hematocrit 35.8 % (37.0-47.0); Hemoglobin 11.2 g/dL (12.0-15.0); Mean Corpuscular HGB Conc 31.3 g/dl (32-36); Mean Corpuscular Hemoglobin 31.2 pg (26-34); Mean Corpuscular Volume 99.7 fl (80-100); Mean Platelet Volume 9.7 fl (7.4-10.4); Platelet Count Result 340 k/mm3 (150-375); Red Blood Count 3.59 M/mm3 (4.2-5.4); Red Cell Distribution Width 14.7 % (11.5-14.5); White Blood Count 11.4 K/mm3 (4.5-10.0)
[2024-05-13] MEDS: LEVOTHYROXINE SODIUM 75 MCG TABLET PO (06:06)
[2024-05-13] MEDS: CEFEPIME 1 GM/NS 50 ML 1 GM/50 ML BAG IVPB ×2 (06:06→17:28)
[2024-05-13 06:09] LABS: Anion Gap 10 mmol/L (4-12); Blood Urea Nitrogen 20 mg/dL (7-17); Calcium 7.7 mg/dL (8.4-10.2); Carbon Dioxide 16 mmol/L (22-30); Chloride 115 mmol/L (98-107); Estimated CRCL calculation 23 ml/min; Estimated Glomerular Filt Rate 22; Glucose 77 mg/dL (65-110); Potassium 3.5 mmol/L (3.4-5.0); Sodium 141 mmol/L (137-145)
[2024-05-13] MEDS: ONDANSETRON INJ 4 MG/2 ML VIAL IV PUSH (07:39)
[2024-05-13] MEDS: ENOXAPARIN 30 MG/0.3 ML SYRINGE SUB-Q (09:24)
[2024-05-13] MEDS: PANTOPRAZOLE 40 MG TABLET PO (09:25)
[2024-05-13] MEDS: METOPROLOL TARTRATE 50 MG TAB PO ×2 (09:25→20:34)
[2024-05-13] MEDS: MONTELUKAST SODIUM 10 MG TABLET PO (09:25)
[2024-05-13] MEDS: POTASSIUM CHLORIDE 10 MEQ ER TABLET PO (09:25)
[2024-05-13] MEDS: OLMESARTAN MEDOXOMIL 20 MG TABLET 40 MG PO (09:25)
--- NOTE | 2024-05-13 12:47 | P.PNGS_ITS ---
Progress Note: A&P Assessment and Plan (1) Postprandial vomiting: Code(s): R11.10 - Vomiting, unspecified Status: Acute Assessment and Plan: This started yesterday. Will get CT scan abdomen and pelvis. Can not use contrast as patient has chronic kidney disease. If negative, and symptoms persist, will get upper GI tomorrow. (2) Diverticulitis of intestine with perforation without abscess: Qualifiers: Diverticulitis site: large intestine Diverticulitis bleeding: without bleeding Qualified Code(s): K57.20 - Diverticulitis of large intestine with perforation and abscess without bleeding Code(s): K57.80 - Diverticulitis of intestine, part unspecified, with perforation and abscess without bleeding Status: Acute Assessment and Plan: Left lower quadrant pain essentially gone. No tenderness left lower quadrant. Much better than on admission but now can not eat for reasons noted above. Subjective Subjective Date/Time Seen: 05/13/24 12:47 Patient reports: pain is less, bowel movement, nausea, vomiting and afebrile Review of Systems Review of Systems: All systems reviewed & are unremarkable except as noted in HPI and below (HPI) Exam Const: General: comfortable and no acute distress Orientat ion/consciousness: patient oriented x3 GI: Inspection: normal to inspection, non-distended and obesity GI Palp: Yes Soft to palpation, No Tenderness to palpation present (GI), No Guarding due to palpation present (GI), No Hernia present, No Palpable mass present and No Rebound tenderness present Auscultation: Hypoactive bowel sounds present Neuro: General: patient oriented x3 and no focal motor deficits Extrem: General: no calf tenderness and no edema Psych: Affect: normal affect Insight: Good insight present (Psych) Judgement: Good judgement present (Psych) Objective Data Vital Signs Vital Signs: Vital Signs - 24 hr 05/12/24 13:53 05/12/24 20:00 05/12/24 22:00 Temperature 36.3 C L 36.3 C L Pulse Rate 67 73 Respiratory Rate 16 18 Blood Pressure 115/58 L 137/77 Pulse Oximetry 98 99 Oxygen Delivery Room Air 05/13/24 05:28 05/13/24 08:00 05/13/24 09:25 Temperature 36.8 C Pulse Rate 78 70 Respiratory Rate 18 Blood Pressure 140/81 Pulse Oximetry 99 99 Oxygen Delivery Room Air 05/13/24 12:04 12/16/24 12:05 05/13/24 12:08 Temperature Pulse Rate Respiratory Rate Blood Pressure 138/57 L 135/74 140/105 H Pulse Oximetry Oxygen Delivery Intake/Output Intake/Output: Intake & Output 05/10/24 05/11/24 05/12/24 05/13/24 23:59 23:59 23:59 23:59 Intake Total 3315 3515 2925 490 Output Total 250 Balance 3065 3515 2925 490 Meds/Results Medications: Active Medications Generic Name Dose Route Start Last Admin Trade Name Freq PRN Reason Stop Dose Admin Acetaminophen 650 mg 05/09/24 17:35 Acetaminophen 325 Mg Tablet PO Q6H PRN Mild Pain (1-3) or Fever Alprazolam 1 mg 05/09/24 20:14 Alprazolam (*Crx) 0.5 Mg Tablet PO QID PRN anxiety Enoxaparin Sodium 30 mg 05/11/24 09:00 05/13/24 09:24 Enoxaparin 30 Mg/0.3 Ml Syringe SUB-Q 30 mg DAILY SOLITARIO Administration Hydrochlorothiazide 12.5 mg 05/10/24 09:00 05/11/24 09:22 Hydrochlorothiazide 12.5 Mg Capsule PO 12.5 mg QAM SOLITARIO Administration Cefepime HCl 1 gm in 50 mls @ 100 mls/hr 05/10/24 06:00 05/13/24 06:06 Maxipime 1 Gm/Ns 50 Ml IVPB 100 mls/hr Q12H SOLITARIO Administration Metronidazole 500 mg in 100 mls @ 100 mls/hr 05/10/24 00:00 05/13/24 07:36 Flagyl 500 Mg/Iso Soln 100 Ml IVPB 100 mls/hr Q8H SOLITARIO Administration Levothyroxine Sodium 75 mcg 05/10/24 06:30 05/13/24 06:06 Levothyroxine Sodium 75 Mcg Tablet PO 75 mcg DAILY@0630 SOLITARIO Administration Metoprolol Tartrate 50 mg 05/10/24 09:00 05/13/24 09:25 Metoprolol Tartrate 50 Mg Tab PO 50 mg Q12HR SOLITARIO Administration Montelukast Sodium 10 mg 05/10/24 09:00 05/13/24 09:25 Montelukast Sodium 10 Mg Tablet PO 10 mg DAILY SOLITARIO Administration Morphine Sulfate 2 mg 05/09/24 17:35 Morphine Sulfate (*Crx) 2 Mg/Ml Inj IV PUSH Q4H PRN Pain Rated 4-6 Morphine Sulfate 4 mg 05/09/24 17:35 05/11/24 10:23 Morphine Sulfate (*Crx) 4 Mg/Ml Inj IV PUSH 4 mg Q4H PRN Administration Pain Rated 7-10 Naloxone HCl 0.1 mg 05/09/24 17:37 Naloxone Hcl 0.4 Mg/Ml Vial IV PUSH Q5MIN PRN Sedation Olmesartan 40 mg 05/10/24 09:00 05/13/24 09:25 Olmesartan Medoxomil 20 Mg Tablet PO 40 mg QAM SOLITARIO Administration Ondansetron HCl 4 mg 05/09/24 17:05 05/13/24 07:39 Ondansetron Inj 4 Mg/2 Ml Vial IV PUSH 4 mg Q4H PRN Administration Nausea Pantoprazole Sodium 40 mg 05/10/24 09:00 05/13/24 09:25 Pantoprazole 40 Mg Tablet PO 40 mg QAM SOLITARIO Administration Potassium Chloride 10 meq 05/10/24 09:00 05/13/24 09:25 Potassium Chloride 10 Meq Er Tablet PO 10 meq DAILY SOLITARIO Administration Tramadol HCl 50 mg 05/09/24 21:35 05/12/24 20:42 Tramadol Hcl (*Crx) 50 Mg Tablet PO 50 mg HS SOLITARIO Administration Tramadol HCl 25 mg 05/11/24 12:02 05/13/24 01:03 Tramadol Hcl (*Crx) 25 Mg Tablet PO 25 mg Q6H PRN Administration Pain Rated 4-6 Trazodone HCl 200 mg 05/09/24 21:35 05/12/24 20:41 Trazodone Hcl 50 Mg Tablet PO 200 mg HS SOLITARIO Administration Radiology Results: ITS Impressions Abdomen/Pelvis CT 05/09/24 15:57 IMPRESSION: 1. Diverticulitis at the ascending and descending colon, the latter with likely mitral perforation but without evident abscess. Labs Labs: Laboratory Results - last 24 hr 05/13/24 05:34 WBC 11.4 H RBC 3.59 L Hgb 11.2 L Hct 35.8 L MCV 99.7 MCH 31.2 MCHC 31.3 L RDW 14.7 H Plt Count 340 MPV 9.7 Sodium 141 Potassium 3.5 Chloride 115 H Carbon Dioxide 16 L Anion Gap 10 BUN 20 H Creatinine 2.20 H Estim Creat Clear Calc 23 Estimated GFR 22 L Glucose 77 Calcium 7.7 L
--- NOTE | 2024-05-13 13:20 | PCPTNOTE ---
Attempted to see patient for Physical Therapy, however patient was out of the room to get a CAT scan.
--- NOTE | 2024-05-13 13:42 | P.PNIM_ITS ---
Progress Note: A&P Assessment and Plan (1) Diverticulitis: Code(s): K57.92 - Diverticulitis of intestine, part unspecified, without perforation or abscess without bleeding Status: Acute Assessment and Plan: - did not meet SIRS criteria, WBC only. - CT abdomen/pelvis: Diverticulitis at the ascending and descending colon, the latter with likely mild perforation but without evidence abscess - IV fluids: 1L bolus -> 125 mL/hr, monitor I&Os, DC - analgesics and antipyretics p.r.n. - Antibiotics: cefepime and Flagyl started on 05/09 - Diet: advanced to low fiber diet - serial abdominal exams - Monitor vital signs, I&Os, track stool output, watch for bloody stools, neuro status and patient is a fall risk - Monitor serum electrolytes and CBC - general surgery consulted, awaiting formal recs Continue IV antibiotics If does well, can be advanced to low-fiber diet tomorrow. Plan for patient to be discharged low-fiber diet for 2 weeks. There is no colonoscopy records. Unless she has had one at another facility, colonoscopy would be advisable in 4-6 weeks. 05/13: Patient continues to have nausea with an emesis episode today, made NPO. Repeat CT: Atrophic kidneys. Highly suggestive descending colon and proximal sigmoid colon diverticulitis. Follow-up and clinical correlation advised. Per Surgery, if negative will plan for upper GI tomorrow. (2) CKD (chronic kidney disease): Qualifiers: Chronic kidney disease stage: unspecified stage Qualified Code(s): N18.9 - Chronic kidney disease, unspecified Code(s): N18.9 - Chronic kidney disease, unspecified Status: Chronic Assessment and Plan: BUN/Cr 35/2.7 on admission, baseline appears to be 1.4-2.2 - BUN/Cr 23/2.2 on am labs - renally dose medications - avoid nephrotoxic medications - trend renal function - trend electrolytes, correct as needed (3) Hypertension: Qualifiers: Hypertension type: primary hypertension Qualified Code(s): I10 - Essential (primary) hypertension Code(s): I10 - Essential (primary) hypertension Status: Chronic Assessment and Plan: - chronic - home medications: Metoprolol 50 mg b.i.d., olmesartan-hydrochlorothiazide 40- 12.5 mg daily - continue metoprolol 50 mg BID and olmesartan 40 mg daily, HCTZ 12.5 mg daily on hold as patient has been borderline hypotensive - monitor (4) Hypothyroidism: Code(s): E03.9 - Hypothyroidism, unspecified Status: Acute Assessment and Plan: Chronic, continue home medication - Synthroid 75 mcg daily (5) Dizziness: Code(s): R42 - Dizziness and giddiness Status: Acute Assessment and Plan: Patient endorsing intermittent dizziness. She states that this has been ongoing for months. Likely secondary to vertigo. - Orthostatic vital signs negative - Vestibular therapy ordered - Meclizine ordered PRN Plan Diet: Clear liquid GI Prophylaxis: Not currently indicated DVT Prophylaxis: SCDs Lines: Peripheral Code Status: Full code Time Spent With Patient Time with patient: 25 - 35 minutes Subjective Date/time seen: 05/13/24 13:42 Interval history: 73 y/o F presents here with abdominal pain with PMH of hypertension, SRIRAM intolerant of CPAP, agoraphobia, hypothyroidism, COPD, gout, and anxiety. Patient is pleasant sitting up comfortably in bed. She continues to have nausea with vomiting with meals. She denies hematemesis. She denies any abdominal pain. She continues to have soft stools denying melena. She was made NPO by surgery today, depending on CT results possible upper GI tomorrow. Review of Systems Review of Systems: All systems reviewed & are unremarkable except as noted in HPI and below Exam Narrative: AF HR 86 RR 18 SpO2 100 BP 134/64 General: female in no acute respiratory distress who is nontoxic appearing, sitting up in bed. HEENT: Normocephalic. Atraumatic. Extraocular movement intact. Sclera clear and anicteric. No facial asymmetry. Chest: Lungs are clear to auscultation bilaterally. No wheezes or crackles. CV: Heart was regular rate and rhythm. S1-S2. No murmurs, gallops, or rubs. Abd: Abdomen was soft. Nontender. Nondistended. Positive bowel sounds. No organomegaly or masses. Neuro: Patient is alert. Speech is clear. Objective Data Vital Signs Vital Signs: Vital Signs - 24 hr 05/12/24 13:53 05/12/24 20:00 05/12/24 22:00 Temperature 97.3 F L 97.3 F L Pulse Rate 67 73 Respiratory Rate 16 18 Blood Pressure 115/58 L 137/77 Pulse Oximetry 98 99 Oxygen Delivery Room Air 05/13/24 05:28 05/13/24 08:00 05/13/24 09:25 Temperature 98.2 F Pulse Rate 78 70 Respiratory Rate 18 Blood Pressure 140/81 Pulse Oximetry 99 99 Oxygen Delivery Room Air 05/13/24 12:04 05/13/24 12:05 05/13/24 12:08 Temperature Pulse Rate Respiratory Rate Blood Pressure 138/57 L 135/74 140/105 H Pulse Oximetry Oxygen Delivery Intake/Output Intake/Output: Intake & Output 05/10/24 05/11/24 05/12/24 05/13/24 23:59 23:59 23:59 23:59 Intake Total 3315 3515 2925 490 Output Total 250 Balance 3065 3515 2925 490 Meds/Results Medications: Active Medications Generic Name Dose Route Start Last Admin Trade Name Freq PRN Reason Stop Dose Admin Acetaminophen 650 mg 05/09/24 17:35 Acetaminophen 325 Mg Tablet PO Q6H PRN Mild Pain (1-3) or Fever Alprazolam 1 mg 05/09/24 20:14 Alprazolam (*Crx) 0.5 Mg Tablet PO QID PRN anxiety Enoxaparin Sodium 30 mg 05/11/24 09:00 05/13/24 09:24 Enoxaparin 30 Mg/0.3 Ml Syringe SUB-Q 30 mg DAILY SOLITARIO Administration Hydrochlorothiazide 12.5 mg 05/10/24 09:00 05/11/24 09:22 Hydrochlorothiazide 12.5 Mg Capsule PO 12.5 mg QAM SOLITARIO Administration Cefepime HCl 1 gm in 50 mls @ 100 mls/hr 05/10/24 06:00 05/13/24 06:06 Maxipime 1 Gm/Ns 50 Ml IVPB 100 mls/hr Q12H SOLITARIO Administration Metronidazole 500 mg in 100 mls @ 100 mls/hr 05/10/24 00:00 05/13/24 07:36 Flagyl 500 Mg/Iso Soln 100 Ml IVPB 100 mls/hr Q8H SOLITARIO Administration Levothyroxine Sodium 75 mcg 05/10/24 06:30 05/13/24 06:06 Levothyroxine Sodium 75 Mcg Tablet PO 75 mcg DAILY@0630 SOLITARIO Administration Metoprolol Tartrate 50 mg 05/10/24 09:00 05/13/24 09:25 Metoprolol Tartrate 50 Mg Tab PO 50 mg Q12HR SOLITARIO Administration Montelukast Sodium 10 mg 05/10/24 09:00 05/13/24 09:25 Montelukast Sodium 10 Mg Tablet PO 10 mg DAILY SOLITARIO Administration Morphine Sulfate 2 mg 05/09/24 17:35 Morphine Sulfate (*Crx) 2 Mg/Ml Inj IV PUSH Q4H PRN Pain Rated 4-6 Morphine Sulfate 4 mg 05/09/24 17:35 05/11/24 10:23 Morphine Sulfate (*Crx) 4 Mg/Ml Inj IV PUSH 4 mg Q4H PRN Administration Pain Rated 7-10 Naloxone HCl 0.1 mg 05/09/24 17:37 Naloxone Hcl 0.4 Mg/Ml Vial IV PUSH Q5MIN PRN Sedation Olmesartan 40 mg 05/10/24 09:00 05/13/24 09:25 Olmesartan Medoxomil 20 Mg Tablet PO 40 mg QAM SOLITARIO Administration Ondansetron HCl 4 mg 05/09/24 17:05 05/13/24 07:39 Ondansetron Inj 4 Mg/2 Ml Vial IV PUSH 4 mg Q4H PRN Administration Nausea Pantoprazole Sodium 40 mg 05/10/24 09:00 05/13/24 09:25 Pantoprazole 40 Mg Tablet PO 40 mg QAM SOLITARIO Administration Potassium Chloride 10 meq 05/10/24 09:00 05/13/24 09:25 Potassium Chloride 10 Meq Er Tablet PO 10 meq DAILY SOLITARIO Administration Tramadol HCl 50 mg 05/09/24 21:35 05/12/24 20:42 Tramadol Hcl (*Crx) 50 Mg Tablet PO 50 mg HS SOLITARIO Administration Tramadol HCl 25 mg 05/11/24 12:02 05/13/24 01:03 Tramadol Hcl (*Crx) 25 Mg Tablet PO 25 mg Q6H PRN Administration Pain Rated 4-6 Trazodone HCl 200 mg 05/09/24 21:35 05/12/24 20:41 Trazodone Hcl 50 Mg Tablet PO 200 mg HS SOLITARIO Administration Labs Labs: Laboratory Results - last 24 hr 05/13/24 05:34 WBC 11.4 H RBC 3.59 L Hgb 11.2 L Hct 35.8 L MCV 99.7 MCH 31.2 MCHC 31.3 L RDW 14.7 H Plt Count 340 MPV 9.7 Sodium 141 Potassium 3.5 Chloride 115 H Carbon Dioxide 16 L Anion Gap 10 BUN 20 H Creatinine 2.20 H Estim Creat Clear Calc 23 Estimated GFR 22 L Glucose 77 Calcium 7.7 L Quality VTE Prophylaxis VTE prophylaxis: mechanical ordered
[2024-05-13] MEDS: MECLIZINE HCL 12.5 MG TABLET PO (15:56)
[2024-05-13] MEDS: traZODone HCL 50 MG TABLET 200 MG PO (20:33)
[2024-05-13] MEDS: traMADol HCL (*CRX) 50 MG TABLET PO (20:34)
[2024-05-14] MEDS: metroNIDAZOLE 500 MG/ISO 100ML 500 MG/100 ML BAG 100 MG IVPB ×3 (00:47→20:38)
[2024-05-14] MEDS: ONDANSETRON INJ 4 MG/2 ML VIAL IV PUSH ×2 (02:16→15:33)
[2024-05-14 05:08] VITALS: BP 104/48; PULSE 72; RESP 16; TEMP 36.6; O2SAT 97
[2024-05-14] MEDS: CEFEPIME 1 GM/NS 50 ML 1 GM/50 ML BAG IVPB ×2 (06:01→17:00)
[2024-05-14] MEDS: LEVOTHYROXINE SODIUM 75 MCG TABLET PO (06:02)
--- NOTE | 2024-05-14 07:46 | P.PNIM_ITS ---
Progress Note: A&P Assessment and Plan (1) Esophageal stricture: Code(s): K22.2 - Esophageal obstruction Status: Acute Assessment and Plan: Patient continues to have nausea with an emesis episode - Repeat CT: Atrophic kidneys. Highly suggestive descending colon and proximal sigmoid colon diverticulitis. Follow-up and clinical correlation advised. - Upper GI: Narrowing of the distalmost esophagus with smooth mucosal margins which could be due to either spasm or fixed stricture either benign or malignant. Would recommend endoscopy for further evaluation. - GI consulted, appreciate recommendations plan for an EGD tomorrow to assess if stricture, esophagitis, ring or even malignancy (2) Diverticulitis: Code(s): K57.92 - Diverticulitis of intestine, part unspecified, without perforation or abscess without bleeding Status: Acute Assessment and Plan: - did not meet SIRS criteria, WBC only. - CT abdomen/pelvis: Diverticulitis at the ascending and descending colon, the latter with likely mild perforation but without evidence abscess - IV fluids: 1L bolus -> 125 mL/hr, monitor I&Os, DC - analgesics and antipyretics p.r.n. - Antibiotics: cefepime and Flagyl started on 05/09 - Diet: advanced to low fiber diet - serial abdominal exams - Monitor vital signs, I&Os, track stool output, watch for bloody stools, neuro status and patient is a fall risk - Monitor serum electrolytes and CBC - general surgery consulted, awaiting formal recs Continue IV antibiotics If does well, can be advanced to low-fiber diet tomorrow. Plan for patient to be discharged low-fiber diet for 2 weeks. There is no colonoscopy records. Unless she has had one at another facility, colonoscopy would be advisable in 4-6 weeks. Patient continues to have nausea with an emesis episode today, made NPO. - Repeat CT: Atrophic kidneys. Highly suggestive descending colon and proximal sigmoid colon diverticulitis. Follow-up and clinical correlation advised. - Upper GI: Narrowing of the distalmost esophagus with smooth mucosal margins which could be due to either spasm or fixed stricture either benign or malignant. Would recommend endoscopy for further evaluation. - GI consulted, appreciate recommendations plan for an EGD tomorrow to assess if stricture, esophagitis, ring or even malignancy plan for complete colonoscopy in 6 weeks if patient agreeable (3) CKD (chronic kidney disease): Qualifiers: Chronic kidney disease stage: unspecified stage Qualified Code(s): N18.9 - Chronic kidney disease, unspecified Code(s): N18.9 - Chronic kidney disease, unspecified Status: Chronic Assessment and Plan: BUN/Cr 35/2.7 on admission, baseline appears to be 1.4-2.2 - BUN/Cr 20/2.2 on am labs - renally dose medications - avoid nephrotoxic medications - trend renal function - trend electrolytes, correct as needed (4) Hypertension: Qualifiers: Hypertension type: primary hypertension Qualified Code(s): I10 - Essential (primary) hypertension Code(s): I10 - Essential (primary) hypertension Status: Chronic Assessment and Plan: - chronic - home medications: Metoprolol 50 mg b.i.d., olmesartan-hydrochlorothiazide 40- 12.5 mg daily - continue metoprolol 50 mg BID and olmesartan 40 mg daily, HCTZ 12.5 mg daily on hold as patient has been borderline hypotensive - monitor (5) Hypothyroidism: Code(s): E03.9 - Hypothyroidism, unspecified Status: Acute Assessment and Plan: Chronic, continue home medication - Synthroid 75 mcg daily (6) Dizziness: Code(s): R42 - Dizziness and giddiness Status: Acute Assessment and Plan: Patient endorsing intermittent dizziness. She states that this has been ongoing for months. Likely secondary to vertigo. - Orthostatic vital signs negative - Vestibular therapy ordered - Meclizine ordered PRN Plan Diet: Clear liquid GI Prophylaxis: Not currently indicated DVT Prophylaxis: SCDs Lines: Peripheral Code Status: Full code Time Spent With Patient Time with patient: 25 - 35 minutes Subjective Date/time seen: 05/14/24 07:46 Interval history: 73 y/o F presents here with abdominal pain with PMH of hypertension, SRIRAM intolerant of CPAP, agoraphobia, hypothyroidism, COPD, gout, and anxiety. Patient is pleasant lying comfortably in bed. She continues to be nauseous with episodes of emesis. She had an upper GI series today which is concerning for an esophageal stricture. GI consulted and plan for EGD tomorrow. Patient also notes that her dizziness has improved today. She denies any chest pain, shortness of breath, palpitations and abdominal pain. Review of Systems Review of Systems: All systems reviewed & are unremarkable except as noted in HPI and below Exam Narrative: AF HR 73 RR 16 Spo2 99 BP 129/64 General: female in no acute respiratory distress who is nontoxic appearing, sitting up in bed. HEENT: Normocephalic. Atraumatic. Extraocular movement intact. Sclera clear and anicteric. No facial asymmetry. Chest: Lungs are clear to auscultation bilaterally. No wheezes or crackles. CV: Heart was regular rate and rhythm. S1-S2. No murmurs, gallops, or rubs. Abd: Abdomen was soft. Nontender. Nondistended. Positive bowel sounds. No organomegaly or masses. Neuro: Patient is alert. Speech is clear. Objective Data Vital Signs Vital Signs: Vital Signs - 24 hr 05/13/24 08:00 05/13/24 09:25 05/13/24 12:04 Temperature Pulse Rate 70 Respiratory Rate Blood Pressure 138/57 L Pulse Oximetry 99 Oxygen Delivery Room Air 05/13/24 12:05 05/13/24 12:08 05/13/24 14:00 Temperature 97.9 F Pulse Rate 86 Respiratory Rate 18 Blood Pressure 135/74 140/105 H 134/64 Pulse Oximetry 100 Oxygen Delivery 05/13/24 20:00 05/13/24 21:30 05/14/24 05:08 Temperature 97.2 F L 97.8 F Pulse Rate 78 72 Respiratory Rate 16 16 Blood Pressure 126/65 104/48 L Pulse Oximetry 99 97 Oxygen Delivery Room Air Intake/Output Intake/Output: Intake & Output 05/11/24 05/12/24 05/13/24 05/14/24 23:59 23:59 23:59 23:59 Intake Total 3515 2925 1090 Balance 3515 2925 1090 Meds/Results Medications: Active Medications Generic Name Dose Route Start Last Admin Trade Name Freq PRN Reason Stop Dose Admin Acetaminophen 650 mg 05/09/24 17:35 Acetaminophen 325 Mg Tablet PO Q6H PRN Mild Pain (1-3) or Fever Alprazolam 1 mg 05/09/24 20:14 Alprazolam (*Crx) 0.5 Mg Tablet PO QID PRN anxiety Enoxaparin Sodium 30 mg 05/11/24 09:00 05/13/24 09:24 Enoxaparin 30 Mg/0.3 Ml Syringe SUB-Q 30 mg DAILY SOLITARIO Administration Hydrochlorothiazide 12.5 mg 05/10/24 09:00 05/11/24 09:22 Hydrochlorothiazide 12.5 Mg Capsule PO 12.5 mg QAM SOLITARIO Administration Cefepime HCl 1 gm in 50 mls @ 100 mls/hr 05/10/24 06:00 05/14/24 06:01 Maxipime 1 Gm/Ns 50 Ml IVPB 100 mls/hr Q12H SOLITARIO Administration Metronidazole 500 mg in 100 mls @ 100 mls/hr 05/10/24 00:00 05/14/24 00:47 Flagyl 500 Mg/Iso Soln 100 Ml IVPB 100 mls/hr Q8H SOLITARIO Administration Levothyroxine Sodium 75 mcg 05/10/24 06:30 05/14/24 06:02 Levothyroxine Sodium 75 Mcg Tablet PO 75 mcg DAILY@0630 SOLITARIO Administration Meclizine HCl 12.5 mg 05/13/24 15:29 05/13/24 15:56 Meclizine Hcl 12.5 Mg Tablet PO 12.5 mg TID PRN Administration dizziness Metoprolol Tartrate 50 mg 05/10/24 09:00 05/13/24 20:34 Metoprolol Tartrate 50 Mg Tab PO 50 mg Q12HR SOLITARIO Administration Montelukast Sodium 10 mg 05/10/24 09:00 05/13/24 09:25 Montelukast Sodium 10 Mg Tablet PO 10 mg DAILY SOLITARIO Administration Morphine Sulfate 2 mg 05/09/24 17:35 Morphine Sulfate (*Crx) 2 Mg/Ml Inj IV PUSH Q4H PRN Pain Rated 4-6 Morphine Sulfate 4 mg 05/09/24 17:35 05/11/24 10:23 Morphine Sulfate (*Crx) 4 Mg/Ml Inj IV PUSH 4 mg Q4H PRN Administration Pain Rated 7-10 Naloxone HCl 0.1 mg 05/09/24 17:37 Naloxone Hcl 0.4 Mg/Ml Vial IV PUSH Q5MIN PRN Sedation Olmesartan 40 mg 05/10/24 09:00 05/13/24 09:25 Olmesartan Medoxomil 20 Mg Tablet PO 40 mg QAM SOLITARIO Administration Ondansetron HCl 4 mg 05/09/24 17:05 05/14/24 02:16 Ondansetron Inj 4 Mg/2 Ml Vial IV PUSH 4 mg Q4H PRN Administration Nausea Pantoprazole Sodium 40 mg 05/10/24 09:00 05/13/24 09:25 Pantoprazole 40 Mg Tablet PO 40 mg QAM SOLITARIO Administration Potassium Chloride 10 meq 05/10/24 09:00 05/13/24 09:25 Potassium Chloride 10 Meq Er Tablet PO 10 meq DAILY SOLITARIO Administration Tramadol HCl 50 mg 05/09/24 21:35 05/13/24 20:34 Tramadol Hcl (*Crx) 50 Mg Tablet PO 50 mg HS SOLITARIO Administration Tramadol HCl 25 mg 05/11/24 12:02 05/13/24 01:03 Tramadol Hcl (*Crx) 25 Mg Tablet PO 25 mg Q6H PRN Administration Pain Rated 4-6 Trazodone HCl 200 mg 05/09/24 21:35 05/13/24 20:33 Trazodone Hcl 50 Mg Tablet PO 200 mg HS SOLITARIO Administration Radiology Results: ITS Impressions Abdomen/Pelvis CT 05/13/24 13:32 IMPRESSION: 1. Atrophic kidneys. 2. Highly suggestive descending colon and proximal sigmoid colon diverticulitis. Follow-up and clinical correlation advised. Quality VTE Prophylaxis VTE prophylaxis: pharmacologic ordered
[2024-05-14 08:10] VITALS: BP 125/58; PULSE 77; O2SAT 99
[2024-05-14 08:20] VITALS: PULSE 77
[2024-05-14] MEDS: POTASSIUM CHLORIDE 10 MEQ ER TABLET PO (08:20)
[2024-05-14] MEDS: OLMESARTAN MEDOXOMIL 20 MG TABLET 40 MG PO (08:20)
[2024-05-14] MEDS: METOPROLOL TARTRATE 50 MG TAB PO ×2 (08:20→20:38)
[2024-05-14] MEDS: MONTELUKAST SODIUM 10 MG TABLET PO (08:20)
[2024-05-14] MEDS: PANTOPRAZOLE 40 MG TABLET PO (08:20)
--- NOTE | 2024-05-14 10:03 | P.PNGS_ITS ---
Progress Note: A&P Assessment and Plan (1) Postprandial vomiting: Code(s): R11.10 - Vomiting, unspecified Status: Acute Assessment and Plan: Patient continues to eat poorly. Will get upper GI today. If no reason for this seen on contrast study, will get GI consult. (2) Diverticulitis of intestine with perforation without abscess: Qualifiers: Diverticulitis site: large intestine Diverticulitis bleeding: without bleeding Qualified Code(s): K57.20 - Diverticulitis of large intestine with perforation and abscess without bleeding Code(s): K57.80 - Diverticulitis of intestine, part unspecified, with perforation and abscess without bleeding Status: Acute Assessment and Plan: Clearly improving. No pain in left lower quadrant. Only tender to deep palpation. No mass palpable. Imaging findings of diverticulitis can take longer to resolve than clinical findings. Not concerned that evidence of diverticulitis still present on CT scan. Subjective Subjective Date/Time Seen: 05/14/24 10:03 Patient reports: pain is less, bowel movement, nausea, vomiting and afebrile Review of Systems Review of Systems: All systems reviewed & are unremarkable except as noted in HPI and below (HPI) Exam Const: General: comfortable and no acute distress Orientation/consciousness: patient oriented x3 GI: Inspection: normal to inspection, no abdominal wall ecchymosis, non- distended, obesity and no visible herniation GI Palp: Yes Soft to palpation, Yes Tenderness to palpation present (GI) (Only to deep palpation left lower quadrant), No Guarding due to palpation present (GI), No Hernia present, No Palpable mass present and No Rebound tenderness present Auscultation: normal bowel sounds Neuro: General: patient oriented x3 and no focal motor deficits Extrem: General: no calf tenderness and no edema Psych: Affect: normal affect Insight: Good insight present (Psych) Judgement: Good judgement present (Psych) Objective Data Vital Signs Vital Signs: Vital Signs - 24 hr 05/13/24 12:04 05/13/24 12:05 05/13/24 12:08 Temperature Pulse Rate Respiratory Rate Blood Pressure 138/57 L 135/74 140/105 H Pulse Oximetry Oxygen Delivery 05/13/24 14:00 05/13/24 20:00 05/13/24 21:30 Temperature 36.6 C 36.2 C L Pulse Rate 86 78 Respiratory Rate 18 16 Blood Pressure 134/64 126/65 Pulse Oximetry 100 99 Oxygen Delivery Room Air 05/14/24 05:08 05/14/24 08:10 05/14/24 08:20 Temperature 36.6 C Pulse Rate 72 77 77 Respiratory Rate 16 Blood Pressure 104/48 L 125/58 L Pulse Oximetry 97 99 Oxygen Delivery Intake/Output Intake/Output: Intake & Output 05/11/24 05/12/24 05/13/24 05/14/24 23:59 23:59 23:59 23:59 Intake Total 3515 2925 1090 Balance 3515 2925 1090 Meds/Results Medications: Active Medications Generic Name Dose Route Start Last Admin Trade Name Freq PRN Reason Stop Dose Admin Acetaminophen 650 mg 05/09/24 17:35 Acetaminophen 325 Mg Tablet PO Q6H PRN Mild Pain (1-3) or Fever Alprazolam 1 mg 05/09/24 20:14 Alprazolam (*Crx) 0.5 Mg Tablet PO QID PRN anxiety Enoxaparin Sodium 30 mg 05/11/24 09:00 05/13/24 09:24 Enoxaparin 30 Mg/0.3 Ml Syringe SUB-Q 30 mg DAILY SOLITARIO Administration Hydrochlorothiazide 12.5 mg 05/10/24 09:00 05/11/24 09:22 Hydrochlorothiazide 12.5 Mg Capsule PO 12.5 mg QAM SOLITARIO Administration Cefepime HCl 1 gm in 50 mls @ 100 mls/hr 05/10/24 06:00 05/14/24 06:01 Maxipime 1 Gm/Ns 50 Ml IVPB 100 mls/hr Q12H SOLITARIO Administration Metronidazole 500 mg in 100 mls @ 100 mls/hr 05/10/24 00:00 05/14/24 00:47 Flagyl 500 Mg/Iso Soln 100 Ml IVPB 100 mls/hr Q8H SOLITARIO Administration Levothyroxine Sodium 75 mcg 05/10/24 06:30 05/14/24 06:02 Levothyroxine Sodium 75 Mcg Tablet PO 75 mcg DAILY@0630 SOLITARIO Administration Meclizine HCl 12.5 mg 05/13/24 15:29 05/13/24 15:56 Meclizine Hcl 12.5 Mg Tablet PO 12.5 mg TID PRN Administration dizziness Metoprolol Tartrate 50 mg 05/10/24 09:00 05/14/24 08:20 Metoprolol Tartrate 50 Mg Tab PO 50 mg Q12HR SOLITARIO Administration Montelukast Sodium 10 mg 05/10/24 09:00 05/14/24 08:20 Montelukast Sodium 10 Mg Tablet PO 10 mg DAILY SOLITARIO Administration Morphine Sulfate 2 mg 05/09/24 17:35 Morphine Sulfate (*Crx) 2 Mg/Ml Inj IV PUSH Q4H PRN Pain Rated 4-6 Morphine Sulfate 4 mg 05/09/24 17:35 05/11/24 10:23 Morphine Sulfate (*Crx) 4 Mg/Ml Inj IV PUSH 4 mg Q4H PRN Administration Pain Rated 7-10 Naloxone HCl 0.1 mg 05/09/24 17:37 Naloxone Hcl 0.4 Mg/Ml Vial IV PUSH Q5MIN PRN Sedation Olmesartan 40 mg 05/10/24 09:00 05/14/24 08:20 Olmesartan Medoxomil 20 Mg Tablet PO 40 mg QAM SOLITARIO Administration Ondansetron HCl 4 mg 05/09/24 17:05 05/14/24 02:16 Ondansetron Inj 4 Mg/2 Ml Vial IV PUSH 4 mg Q4H PRN Administration Nausea Pantoprazole Sodium 40 mg 05/10/24 09:00 05/14/24 08:20 Pantoprazole 40 Mg Tablet PO 40 mg QAM SOLITARIO Administration Potassium Chloride 10 meq 05/10/24 09:00 05/14/24 08:20 Potassium Chloride 10 Meq Er Tablet PO 10 meq DAILY SOLITARIO Administration Tramadol HCl 50 mg 05/09/24 21:35 05/13/24 20:34 Tramadol Hcl (*Crx) 50 Mg Tablet PO 50 mg HS SOLITARIO Administration Tramadol HCl 25 mg 05/11/24 12:02 05/13/24 01:03 Tramadol Hcl (*Crx) 25 Mg Tablet PO 25 mg Q6H PRN Administration Pain Rated 4-6 Trazodone HCl 200 mg 05/09/24 21:35 05/13/24 20:33 Trazodone Hcl 50 Mg Tablet PO 200 mg HS SOLITARIO Administration Radiology Results: ITS Impressions Abdomen/Pelvis CT 05/13/24 13:32 IMPRESSION: 1. Atrophic kidneys. 2. Highly suggestive descending colon and proximal sigmoid colon diverticulitis. Follow-up and clinical correlation advised. Imaging Attestation: I personally reviewed and interpreted this imaging study as follows: (CT scan abdomen and pelvis without contrast from yesterday) My impression: No findings to suggest a reason for postprandial nausea and vomiting. Evidence of diverticulitis still present. Radiologist's impression: comparison to previous CT scan not performed
[2024-05-14] MEDS: MECLIZINE HCL 12.5 MG TABLET PO (12:01)
--- NOTE | 2024-05-14 13:12 | PCPTNOTE ---
Attempt PT evaluation, pt refused due to nausea. Nursing aware.
[2024-05-14 14:00] VITALS: BP 129/64; PULSE 73; RESP 16; TEMP 36.5; O2SAT 99
[2024-05-14] MEDS: ENOXAPARIN 30 MG/0.3 ML SYRINGE SUB-Q (14:00)
--- NOTE | 2024-05-14 15:31 | P.CONGI_ITS ---
Assessment and Plan Assessment and plan (1) Esophageal stricture: Code(s): K22.2 - Esophageal obstruction Status: Acute Assessment and Plan: noted abnormal UGI will do EGD to assess if stricture, esophagitis, ring or even malignancy (2) Dysphagia: Code(s): R13.10 - Dysphagia, unspecified Status: Acute Assessment and Plan: egd in am (3) Diverticulitis of intestine with perforation without abscess: Qualifiers: Diverticulitis site: large intestine Diverticulitis bleeding: without bleeding Qualified Code(s): K57.20 - Diverticulitis of large intestine with perforation and abscess without bleeding Code(s): K57.80 - Diverticulitis of intestine, part unspecified, with perforation and abscess without bleeding Status: Acute Assessment and Plan: on iv abx, surgery on board only with medical treatment for now we can complete colonoscopy in 6 weeks if she is agreeable this time (4) Lower abdominal pain: Code(s): R10.30 - Lower abdominal pain, unspecified Status: Acute GI Consult Note Consult date/time: 05/14/24 15:31 Reason for consult: dysphagia, diverticulitis HPI: Melissa Tom is a 73 year old female admitted few days ago with progressive lower abdominal pain, finally CT scan of the abdomen and pelvis described ascending and descending colon diverticulitis with micro perforation in the descending colon area. Review of previous imaging shows that in October of [address] scan diverticulitis of the hepatic flexure and also possibly the sigmoid area. She is on antibiotics and surgery is in the case. Also had been complaining of more nausea and sensation of food getting stuck in chest. UGI showed Narrowing of the distal esophagus with smooth mucosal margins which could be due to either spasm or fixed stricture either benign or malignant. I met patient when she was admitted in 2021 with diverticulitis, I offered to do one as outpatient but she did not come back. She thinks that last one was about 10 years ago. Review of Systems 2 Constitutional: Constitutional: Denies night sweats Eyes: Eyes: Denies blurry vision ENT: Reports Normal hearing present Cardiovascular: Cardiovascular: Denies chest pain Respiratory: Respiratory: Denies cough Gastrointestinal: Gastrointestinal: Reports abdominal pain, Reports nausea and Reports vomiting Genitourinary: Genitourinary: Denies urinary hesitancy Musculoskeletal: Musculoskeletal: Denies arthralgias Integumentary/Breasts: Skin/Breast: Denies dry skin Neurologic: Denies Abnormal speech present Psychiatric: Psychiatric: Denies behavioral changes [facility] Past Medical History Medical History (Updated 05/14/24 @ 15:35 by Morales Collins MD) Lower abdominal pain Dysphagia Anxiety Postmenopausal Hypothyroidism Gout Sleep apnea Intolerant of CPAP COPD (chronic obstructive pulmonary disease) Diverticulitis C. difficile colitis 2021 CKD (chronic kidney disease) Diarrhea Hypertension Surgical History Surgical History History of hysterectomy History of cholecystectomy Family History Family History Other Family history of malignant neoplasm Social History Social History Smoking packs per day: 1 Smoking cigarettes per day: 20.0 Years smoked: 3 Smoking pack-years: 3.00 Smoking status: Former smoker Tobacco type: cigarettes Alcohol intake: never Substance use: never Do You Feel Safe in your Home?: Yes Lack of Transportation: YES Lack of Food: Never True Current Housing: I Have Housing Concerned About Future Housing: No Difficulty Paying Gas/Electric Bills: No Difficulty Paying for Meds: No Currently Unemployed: No Education: Grade School Difficulty w/ Childcare or Family Care: No Spiritual care concerns: No Meds Home Medications and Allergies Home Medications ?Medication ?Instructions ?Recorded ?Confirmed ?Type esomeprazole magnesium 40 mg 1 cap PO 2XD 11/23/21 05/09/24 History capsule,delayed release (Nexium) levothyroxine 75 mcg tablet 1 tablet PO DAILY 11/23/21 05/09/24 History (Synthroid) metoprolol tartrate 50 mg tablet 1 tablet PO BID 11/23/21 05/09/24 History (Lopressor) montelukast 10 mg tablet 1 tablet PO DAILY 11/23/21 05/09/24 History (Singulair) olmesartan 40 1 tablet PO DAILY 11/23/21 05/09/24 History mg-hydrochlorothiazide 12.5 mg tablet (Benicar HCT) potassium chloride 10 mEq 1 tablet PO DAILY 11/23/21 05/09/24 History tablet,extended release (Klor-Con) trazodone 100 mg tablet 2 tablet PO HS 11/23/21 05/09/24 History alprazolam 1 mg tablet 1 mg PO QID PRN anxiety 05/09/24 05/09/24 History tramadol 50 mg tablet 50 mg PO HS 05/09/24 05/09/24 History Allergies Allergy/AdvReac Type Severity Reaction Status Date / Time No Known Allergies Allergy Mild Verified 08/07/22 13:46 Vital Signs Vital Signs - 24 hr 05/13/24 20:00 05/13/24 21:30 05/14/24 05:08 Temperature 97.2 F L 97.8 F Pulse Rate 78 72 Respiratory Rate 16 16 Blood Pressure 126/65 104/48 L Pulse Oximetry 99 97 Oxygen Delivery Room Air 05/14/24 08:10 05/14/24 08:20 05/14/24 08:25 Temperature Pulse Rate 77 77 Respiratory Rate Blood Pressure 125/58 L Pulse Oximetry 99 Oxygen Delivery Room Air 05/14/24 14:00 Temperature 97.7 F Pulse Rate 73 Respiratory Rate 16 Blood Pressure 129/64 Pulse Oximetry 99 Oxygen Delivery Exam 2 Const: General: comfortable and no acute distress O rientation/consciousness: patient oriented x3 HENMT: Face/Nose/Sinus: Normal nares present Eyes: Sclera: sclerae normal Neck: Neck: supple Resp: Effort & Inspection: normal respiratory effort Cardio: Rate: regular rate GI: Inspection: normal to inspection, non-distended and obesity GI Palp: Y es Soft to palpation, Yes Tenderness to palpation present (GI) (Only to deep palpation left lower quadrant) and No Guarding due to palpation present (GI) Auscultation: normal bowel sounds Skin: General skin exam: normal color Neuro: General: patient oriented x3 and no focal motor deficits Extrem: General: no calf tenderness and no edema Psych: Affect: normal affect Insight: Good insight present (Psych) J udgement: Good judgement present (Psych) Results Labs 05/13/24 05:34 05/13/24 05:34
[2024-05-14] MEDS: traMADol HCL (*CRX) 50 MG TABLET PO (20:38)
[2024-05-14] MEDS: traZODone HCL 50 MG TABLET 200 MG PO (20:38)
[2024-05-14 20:47] VITALS: BP 124/75; PULSE 83; RESP 16; TEMP 36.4; O2SAT 100
[2024-05-15] VITALS (9 sets, daily range): BP systolic 108–151; BP diastolic 43–72; PULSE 69–81; RESP 14–22; TEMP 36.2–36.8; O2SAT 98–100
[2024-05-15] MEDS: LEVOTHYROXINE SODIUM 75 MCG TABLET PO (04:55)
[2024-05-15] MEDS: CEFEPIME 1 GM/NS 50 ML 1 GM/50 ML BAG IVPB ×2 (04:55→18:24)
[2024-05-15] MEDS: metroNIDAZOLE 500 MG/ISO 100ML 500 MG/100 ML BAG 100 MG IVPB ×3 (04:55→23:12)
[2024-05-15] MEDS: METOPROLOL TARTRATE 50 MG TAB PO ×2 (08:19→20:32)
[2024-05-15] MEDS: OLMESARTAN MEDOXOMIL 20 MG TABLET 40 MG PO (08:19)
[2024-05-15] MEDS: MONTELUKAST SODIUM 10 MG TABLET PO (08:19)
[2024-05-15] MEDS: POTASSIUM CHLORIDE 10 MEQ ER TABLET PO (08:19)
[2024-05-15] MEDS: PANTOPRAZOLE 40 MG TABLET PO (08:20)
--- NOTE | 2024-05-15 09:09 | P.PNIM_ITS ---
Progress Note: A&P Assessment and Plan (1) Esophageal stricture: Code(s): K22.2 - Esophageal obstruction Status: Acute Assessment and Plan: Patient continues to have nausea with an emesis episode - Repeat CT: Atrophic kidneys. Highly suggestive descending colon and proximal sigmoid colon diverticulitis. Follow-up and clinical correlation advised. - Upper GI: Narrowing of the distalmost esophagus with smooth mucosal margins which could be due to either spasm or fixed stricture either benign or malignant. Would recommend endoscopy for further evaluation. - GI consulted, appreciate recommendations 05/15- EGD today to assess if stricture, esophagitis, ring or even malignancy (2) Diverticulitis: Code(s): K57.92 - Diverticulitis of intestine, part unspecified, without perforation or abscess without bleeding Status: Acute Assessment and Plan: - did not meet SIRS criteria, WBC only. - CT abdomen/pelvis: Diverticulitis at the ascending and descending colon, the latter with likely mild perforation but without evidence abscess - IV fluids: 1L bolus -> 125 mL/hr, monitor I&Os, DC - analgesics and antipyretics p.r.n. - Antibiotics: cefepime and Flagyl started on 05/09 - Diet: advanced to low fiber diet - serial abdominal exams - Monitor vital signs, I&Os, track stool output, watch for bloody stools, neuro status and patient is a fall risk - Monitor serum electrolytes and CBC - general surgery following Continue IV antibiotics If does well, can be advanced to low-fiber diet tomorrow. Plan for patient to be discharged low-fiber diet for 2 weeks. There is no colonoscopy records. Unless she has had one at another facility, colonoscopy would be advisable in 4-6 weeks. - Repeat CT: Atrophic kidneys. Highly suggestive descending colon and proximal sigmoid colon diverticulitis. Follow-up and clinical correlation advised. - Upper GI: Narrowing of the distalmost esophagus with smooth mucosal margins which could be due to either spasm or fixed stricture either benign or malignant. Would recommend endoscopy for further evaluation. - GI following (3) CKD (chronic kidney disease): Qualifiers: Chronic kidney disease stage: unspecified stage Qualified Code(s): N18.9 - Chronic kidney disease, unspecified Code(s): N18.9 - Chronic kidney disease, unspecified Status: Chronic Assessment and Plan: BUN/Cr 35/2.7 on admission, baseline appears to be 1.4-2.2 - BUN/Cr 20/2.2 on am labs - renally dose medications - avoid nephrotoxic medications - trend renal function - trend electrolytes, correct as needed (4) Hypertension: Qualifiers: Hypertension type: primary hypertension Qualified Code(s): I10 - Essential (primary) hypertension Code(s): I10 - Essential (primary) hypertension Status: Chronic Assessment and Plan: - chronic - home medications: Metoprolol 50 mg b.i.d., olmesartan-hydrochlorothiazide 40- 12.5 mg daily - continue metoprolol 50 mg BID and olmesartan 40 mg daily, HCTZ 12.5 mg daily on hold as patient has been borderline hypotensive - monitor (5) Hypothyroidism: Code(s): E03.9 - Hypothyroidism, unspecified Status: Acute Assessment and Plan: Chronic, continue home medication - Synthroid 75 mcg daily (6) Dizziness: Code(s): R42 - Dizziness and giddiness Status: Acute Assessment and Plan: Patient endorsing intermittent dizziness. She states that this has been ongoing for months. Likely secondary to vertigo. - Orthostatic vital signs negative - Vestibular therapy ordered - Meclizine ordered PRN Plan Diet: Clear liquid GI Prophylaxis: Not currently indicated DVT Prophylaxis: SCDs Lines: Peripheral Code Status: Full code Time Spent With Patient Time with patient: Greater than 35 minutes Subjective Date/time seen: 05/15/24 09:09 Interval history: 73 y/o F presents here with abdominal pain with PMH of hypertension, SRIRAM intolerant of CPAP, agoraphobia, hypothyroidism, COPD, gout, and anxiety. Patient is pleasant lying comfortably in bed- EGD today. Her dizziness improved. She denies any chest pain, shortness of breath, palpitations and abdominal pain. She is still not eating well. Review of Systems Review of Systems: All systems reviewed & are unremarkable except as noted in HPI and below Exam Narrative: General: female in no acute respiratory distress who is nontoxic appearing, sitting up in bed. HEENT: Normocephalic. Atraumatic. Extraocular movement intact. Sclera clear and anicteric. No facial asymmetry. Chest: Lungs are clear to auscultation bilaterally. No wheezes or crackles. CV: Heart was regular rate and rhythm. S1-S2. No murmurs, gallops, or rubs. Abd: Abdomen was soft. Nontender. Nondistended. Positive bowel sounds. No organomegaly or masses. Neuro: Patient is alert. Speech is clear. Const: General: comfortable and no acute distress Other: , female, obese body habitus, nontoxic appearance HENMT: Face/Nose/Sinus: Normal nares present Mouth: Yes moist mucous membranes Eyes: General: appearance normal, both eyes and all related structures Sclera: sclerae normal Pupils: Equal, round and reactive pupils present EOM: EOMs intact bilaterally Resp: Effort & Inspection: normal respiratory effort Auscultation: clear to auscultation bilaterally Cardio: Rate: regular rate Rhythm: regular rhythm Other: S1-S2 present without murmur, rub, ectopy GI: Other: Abdomen rounded, soft, nontender. Normoactive bowel sounds in all quadrants. Skin: General skin exam: normal color and no rashes or lesions noted Wounds: no wounds Neuro: Cranial nerves: Yes Equal, round and reactive pupils present Speech: normal speech Motor exam (neuro): 5/5 motor strength present throughout Sensory Exam: normal sensation Other: A&O x4 Extrem: General: normal to inspection Psych: Mental Status: mental status grossly normal Affect: normal affect Other: Good insight and judgment, very pleasant Objective Data Vital Signs Vital Signs: Vital Signs - 24 hr 05/14/24 14:00 05/14/24 20:00 05/14/24 20:47 Temperature 97.7 F 97.6 F Pulse Rate 73 83 Respiratory Rate 16 16 Blood Pressure 129/64 124/75 Pulse Oximetry 99 100 Oxygen Delivery Room Air 05/15/24 05:13 Temperature 97.6 F Pulse Rate 69 Respiratory Rate 18 Blood Pressure 140/56 L Pulse Oximetry 98 Oxygen Delivery Intake/Output Intake/Output: Intake & Output 05/12/24 05/13/24 05/14/24 05/15/24 23:59 23:59 23:59 23:59 Intake Total 2925 1090 400 350 Balance 2925 1090 400 350 Meds/Results Medications: Active Medications Generic Name Dose Route Start Last Admin Trade Name Freq PRN Reason Stop Dose Admin Acetaminophen 650 mg 05/09/24 17:35 Acetaminophen 325 Mg Tablet PO Q6H PRN Mild Pain (1-3) or Fever Alprazolam 1 mg 05/09/24 20:14 Alprazolam (*Crx) 0.5 Mg Tablet PO QID PRN anxiety Enoxaparin Sodium 30 mg 05/11/24 09:00 05/14/24 14:00 Enoxaparin 30 Mg/0.3 Ml Syringe SUB-Q 30 mg DAILY SOLITARIO Administration Hydrochlorothiazide 12.5 mg 05/10/24 09:00 05/11/24 09:22 Hydrochlorothiazide 12.5 Mg Capsule PO 12.5 mg QAM SOLITARIO Administration Cefepime HCl 1 gm in 50 mls @ 100 mls/hr 05/10/24 06:00 05/15/24 04:55 Maxipime 1 Gm/Ns 50 Ml IVPB 100 mls/hr Q12H SOLITARIO Administration Metronidazole 500 mg in 100 mls @ 100 mls/hr 05/10/24 00:00 05/15/24 04:55 Flagyl 500 Mg/Iso Soln 100 Ml IVPB 100 mls/hr Q8H SOLITARIO Administration Levothyroxine Sodium 75 mcg 05/10/24 06:30 05/15/24 04:55 Levothyroxine Sodium 75 Mcg Tablet PO 75 mcg DAILY@0630 SOLITARIO Administration Meclizine HCl 12.5 mg 05/13/24 15:29 05/14/24 12:01 Meclizine Hcl 12.5 Mg Tablet PO 12.5 mg TID PRN Administration dizziness Metoprolol Tartrate 50 mg 05/10/24 09:00 05/15/24 08:19 Metoprolol Tartrate 50 Mg Tab PO 50 mg Q12HR SOLITARIO Administration Montelukast Sodium 10 mg 05/10/24 09:00 05/15/24 08:19 Montelukast Sodium 10 Mg Tablet PO 10 mg DAILY SOLITARIO Administration Morphine Sulfate 2 mg 05/09/24 17:35 Morphine Sulfate (*Crx) 2 Mg/Ml Inj IV PUSH Q4H PRN Pain Rated 4-6 Morphine Sulfate 4 mg 05/09/24 17:35 05/11/24 10:23 Morphine Sulfate (*Crx) 4 Mg/Ml Inj IV PUSH 4 mg Q4H PRN Administration Pain Rated 7-10 Naloxone HCl 0.1 mg 05/09/24 17:37 Naloxone Hcl 0.4 Mg/Ml Vial IV PUSH Q5MIN PRN Sedation Olmesartan 40 mg 05/10/24 09:00 05/15/24 08:19 Olmesartan Medoxomil 20 Mg Tablet PO 40 mg QAM SOLITARIO Administration Ondansetron HCl 4 mg 05/09/24 17:05 05/14/24 15:33 Ondansetron Inj 4 Mg/2 Ml Vial IV PUSH 4 mg Q4H PRN Administration Nausea Pantoprazole Sodium 40 mg 05/10/24 09:00 05/15/24 08:20 Pantoprazole 40 Mg Tablet PO 40 mg QAM SOLITARIO Administration Potassium Chloride 10 meq 05/10/24 09:00 05/15/24 08:19 Potassium Chloride 10 Meq Er Tablet PO 10 meq DAILY SOLITARIO Administration Tramadol HCl 50 mg 05/09/24 21:35 05/14/24 20:38 Tramadol Hcl (*Crx) 50 Mg Tablet PO 50 mg HS SOLITARIO Administration Tramadol HCl 25 mg 05/11/24 12:02 05/13/24 01:03 Tramadol Hcl (*Crx) 25 Mg Tablet PO 25 mg Q6H PRN Administration Pain Rated 4-6 Trazodone HCl 200 mg 05/09/24 21:35 05/14/24 20:38 Trazodone Hcl 50 Mg Tablet PO 200 mg HS SOLITARIO Administration Radiology Results: ITS Impressions Abdomen/Pelvis CT 05/13/24 13:32 IMPRESSION: 1. Atrophic kidneys. 2. Highly suggestive descending colon and proximal sigmoid colon diverticulitis. Follow-up and clinical correlation advised. Upper GI Series 05/14/24 11:08 IMPRESSION: 1. Narrowing of the distalmost esophagus with smooth mucosal margins which could be due to either spasm or fixed stricture either benign or malignant. Would recommend endoscopy for further evaluation. Quality VTE Prophylaxis VTE prophylaxis: pharmacologic ordered
--- NOTE | 2024-05-15 10:00 | P.PNGS_ITS ---
Progress Note: A&P Assessment and Plan (1) Esophageal stricture: Code(s): K22.2 - Esophageal obstruction Status: Acute Assessment and Plan: Abnormality noted on upper GI yesterday. To have EGD this afternoon. Most likely this is the cause of her poor appetite and postprandial nausea and emesis. (2) Diverticulitis of intestine with perforation without abscess: Qualifiers: Diverticulitis site: large intestine Diverticulitis bleeding: without bleeding Qualified Code(s): K57.20 - Diverticulitis of large intestine with perforation and abscess without bleeding Code(s): K57.80 - Diverticulitis of intestine, part unspecified, with perforation and abscess without bleeding Status: Acute Assessment and Plan: Today is the 6th day of IV antibiotic treatment based on her being in the emergency room on 05/09/2024. Can probably discontinue IV antibiotics and switched to oral Augmentin or Levaquin and Flagyl. Diet pending results of EGD today. Subjective Subjective Date/Time Seen: 05/15/24 10:00 Patient reports: pain is less (Rare, brief episodes of left lower quadrant pain), bowel movement, nausea, vomiting and afebrile Review of Systems Review of Systems: All systems reviewed & are unremarkable except as noted in HPI and below (HPI) Exam Const: General: comfortable and no acute distress Orientation/consciousness: patient oriented x3 GI: Inspection: normal to inspection, no abdominal wall ecchymosis, non- distended, obesity and no visible herniation GI Palp: Yes Soft to palpation and Yes Tenderness to palpation present (GI) (Only to deep palpation left lower quadrant) Neuro: General: patient oriented x3 and no focal motor deficits Extrem: General: no calf tenderness and no edema Psych: Affect: normal affect Insight: Good insight present (Psych) Judgement: Good judgement present (Psych) Objective Data Vital Signs Vital Signs: Vital Signs - 24 hr 05/14/24 14:00 05/14/24 20:00 05/14/24 20:47 Temperature 36.5 C 36.4 C Pulse Rate 73 83 Respiratory Rate 16 16 Blood Pressure 129/64 124/75 Pulse Oximetry 99 100 Oxygen Delivery Room Air 05/15/24 05:13 05/15/24 08:21 05/15/24 09:06 Temperature 36.4 C Pulse Rate 69 Respiratory Rate 18 Blood Pressure 140/56 L Pulse Oximetry 98 Oxygen Delivery Room Air Room Air Intake/Output Intake/Output: Intake & Output 05/12/24 05/13/24 05/14/24 05/15/24 23:59 23:59 23:59 23:59 Intake Total 2925 1090 400 350 Balance 2925 1090 400 350 Meds/Results Medications: Active Medications Generic Name Dose Route Start Last Admin Trade Name Freq PRN Reason Stop Dose Admin Acetaminophen 650 mg 05/09/24 17:35 Acetaminophen 325 Mg Tablet PO Q6H PRN Mild Pain (1-3) or Fever Alprazolam 1 mg 05/09/24 20:14 Alprazolam (*Crx) 0.5 Mg Tablet PO QID PRN anxiety Enoxaparin Sodium 30 mg 05/11/24 09:00 05/14/24 14:00 Enoxaparin 30 Mg/0.3 Ml Syringe SUB-Q 30 mg DAILY SOLITARIO Administration Hydrochlorothiazide 12.5 mg 05/10/24 09:00 05/11/24 09:22 Hydrochlorothiazide 12.5 Mg Capsule PO 12.5 mg QAM SOLITARIO Administration Cefepime HCl 1 gm in 50 mls @ 100 mls/hr 05/10/24 06:00 05/15/24 04:55 Maxipime 1 Gm/Ns 50 Ml IVPB 100 mls/hr Q12H SOLITARIO Administration Metronidazole 500 mg in 100 mls @ 100 mls/hr 05/10/24 00:00 05/15/24 04:55 Flagyl 500 Mg/Iso Soln 100 Ml IVPB 100 mls/hr Q8H SOLITARIO Administration Levothyroxine Sodium 75 mcg 05/10/24 06:30 05/15/24 04:55 Levothyroxine Sodium 75 Mcg Tablet PO 75 mcg DAILY@0630 SOLITARIO Administration Meclizine HCl 12.5 mg 05/13/24 15:29 05/14/24 12:01 Meclizine Hcl 12.5 Mg Tablet PO 12.5 mg TID PRN Administration dizziness Metoprolol Tartrate 50 mg 05/10/24 09:00 05/15/24 08:19 Metoprolol Tartrate 50 Mg Tab PO 50 mg Q12HR SOLITARIO Administration Montelukast Sodium 10 mg 05/10/24 09:00 05/15/24 08:19 Montelukast Sodium 10 Mg Tablet PO 10 mg DAILY SOLITARIO Administration Morphine Sulfate 2 mg 05/09/24 17:35 Morphine Sulfate (*Crx) 2 Mg/Ml Inj IV PUSH Q4H PRN Pain Rated 4-6 Morphine Sulfate 4 mg 05/09/24 17:35 05/11/24 10:23 Morphine Sulfate (*Crx) 4 Mg/Ml Inj IV PUSH 4 mg Q4H PRN Administration Pain Rated 7-10 Naloxone HCl 0.1 mg 05/09/24 17:37 Naloxone Hcl 0.4 Mg/Ml Vial IV PUSH Q5MIN PRN Sedation Olmesartan 40 mg 05/10/24 09:00 05/15/24 08:19 Olmesartan Medoxomil 20 Mg Tablet PO 40 mg QAM SOLITARIO Administration Ondansetron HCl 4 mg 05/09/24 17:05 05/14/24 15:33 Ondansetron Inj 4 Mg/2 Ml Vial IV PUSH 4 mg Q4H PRN Administration Nausea Pantoprazole Sodium 40 mg 05/10/24 09:00 05/15/24 08:20 Pantoprazole 40 Mg Tablet PO 40 mg QAM SOLITARIO Administration Potassium Chloride 10 meq 05/10/24 09:00 05/15/24 08:19 Potassium Chloride 10 Meq Er Tablet PO 10 meq DAILY SOLITARIO Administration Tramadol HCl 50 mg 05/09/24 21:35 05/14/24 20:38 Tramadol Hcl (*Crx) 50 Mg Tablet PO 50 mg HS SOLITARIO Administration Tramadol HCl 25 mg 05/11/24 12:02 05/13/24 01:03 Tramadol Hcl (*Crx) 25 Mg Tablet PO 25 mg Q6H PRN Administration Pain Rated 4-6 Trazodone HCl 200 mg 05/09/24 21:35 05/14/24 20:38 Trazodone Hcl 50 Mg Tablet PO 200 mg HS SOLITARIO Administration Radiology Results: ITS Impressions Abdomen/Pelvis CT 05/13/24 13:32 IMPRESSION: 1. Atrophic kidneys. 2. Highly suggestive descending colon and proximal sigmoid colon diverticulitis. Follow-up and clinical correlation advised. Upper GI Series 05/14/24 11:08 IMPRESSION: 1. Narrowing of the distalmost esophagus with smooth mucosal margins which could be due to either spasm or fixed stricture either benign or malignant. Would recommend endoscopy for further evaluation. Imaging Attestation: I personally reviewed and interpreted this imaging study as follows: (Upper GI) My impression: Distal esophageal stricture Radiologist's impression: Same
--- NOTE | 2024-05-15 10:33 | PCNFU ---
Nutrition Follow-Up Complete: Inadequate oral intake related to nausea, loss of appetite as evidenced by pt report of weight loss and poor appetite goal: Diet advancement Improve PO intake when diet is advanced Patient has limited progress towards goal. We will continue current goal. Pt current nutrition is NPO. Nutrition recommendation: advance diet as tolerated per MD orders. Last recorded weight is 94.1 kg, no new weight to report. Bowel Motility: +BM reported 05/15 Labs Reviewed: Cr 2.2, GFR 22, BUN 20 Meds Noted: Cefepime, Flagyl, Lopressor, Synthroid. Skin: WNL Additional Notes: Patient is NPO for EGD. Nursing states patient is still reporting nausea. minimal intake on liquids. Recommend advancing diet as tolerated per MD orders. Monitoring intakes, weights, labs, plan of care Follow up in 5 days
[2024-05-15] MEDS: LACTATED RINGERS 1,000 ML 150 ML IV CONT (14:26)
--- NOTE | 2024-05-15 15:18 | P.PNAN_ITS ---
Anes - Initial Pre Proc Eval Procedure: Operation Date: 05/15/24 15:30 Proposed Procedures p Esophagogastroduodenoscopy - Morales Collins MD Date/Time: 05/15/24 15:18 Surgeon: Germaine Espino PA-C Pre Op Diagnosis: Acute Diverticulitis with Micro Perforation Patient Data Age: 73 Gender: F Height: 1.65 m Weight: 94.1 kg Last Vital Signs Temp 36.2 C L 05/15/24 14:18 Pulse 74 05/15/24 14:18 Resp 18 05/15/24 14:18 BP 151/72 H 05/15/24 14:18 Pulse Ox 99 05/15/24 14:18 O2 Del Method Room Air 05/15/24 14:18 Allergies Allergy/AdvReac Type Severity Reaction Status Date / Time No Known Allergies Allergy Mild Verified 05/15/24 14:16 Home Medications ?Medication ?Instructions ?Recorded ?Confirmed ?Type esomeprazole magnesium 40 mg 1 cap PO 2XD 11/23/21 05/09/24 History capsule,delayed release (Nexium) levothyroxine 75 mcg tablet 1 tablet PO DAILY 11/23/21 05/09/24 History (Synthroid) metoprolol tartrate 50 mg tablet 1 tablet PO BID 11/23/21 05/09/24 History (Lopressor) montelukast 10 mg tablet 1 tablet PO DAILY 11/23/21 05/09/24 History (Singulair) olmesartan 40 1 tablet PO DAILY 11/23/21 05/09/24 History mg-hydrochlorothiazide 12.5 mg tablet (Benicar HCT) potassium chloride 10 mEq 1 tablet PO DAILY 11/23/21 05/09/24 History tablet,extended release (Klor-Con) trazodone 100 mg tablet 2 tablet PO HS 11/23/21 05/09/24 History alprazolam 1 mg tablet 1 mg PO QID PRN anxiety 05/09/24 05/09/24 History tramadol 50 mg tablet 50 mg PO HS 05/09/24 05/09/24 History Patient hx anesthesia problems: none Family hx anesthesia problems: none Results Review: All pre-operative results and documents have been reviewed as part of the pre- operative evaluation. [facility] Past Medical History Medical History Lower abdominal pain Dysphagia Anxiety Postmenopausal Hypothyroidism Gout Sleep apnea Intolerant of CPAP COPD (chronic obstructive pulmonary disease) Diverticulitis C. difficile colitis 2021 CKD (chronic kidney disease) Diarrhea Hypertension Surgical History Surgical History History of hysterectomy History of cholecystectomy Family History Family History Other Family history of malignant neoplasm Social History Social History Smoking packs per day: 1 Smoking cigarettes per day: 20.0 Years smoked: 3 Smoking pack-years: 3.00 Smoking status: Former smoker Tobacco type: cigarettes Alcohol intake: never Substance use: never Do You Feel Safe in your Home?: Yes Lack of Transportation: YES Lack of Food: Never True Current Housing: I Have Housing Concerned About Future Housing: No Difficulty Paying Gas/Electric Bills: No Difficulty Paying for Meds: No Currently Unemployed: No Education: Grade School Difficulty w/ Childcare or Family Care: No Spiritual care concerns: No Anes - Eval Final PreProcedure Day of Procedure 05/15/24 15:18 Patient weight: obese Heart: regular rate and rhythm Lungs: clear to auscultation Airway: Mallampati scale class II and other (upper dentures removed) Neurological: alert and oriented Last oral intake: >/= 8 hours ASA classification: III Emergent: no Anesthetic plan: proceed Anesthesia type and monitoring: general GIVS and standard monitoring Results Review: All pre-operative results and documents have been reviewed as part of the pre- operative evaluation. Informed Consent: The patient's anesthetic plan and its attendant risks and benefits were discussed with the patient/family/POA. Questions were solicited and answers provided to the satisfaction of the patient/family/POA.
--- NOTE | 2024-05-15 15:38 | P.PNGI_ITS ---
Progress Note: A&P Assessment and Plan (1) Dysphagia: Code(s): R13.10 - Dysphagia, unspecified Status: Acute Assessment and Plan: See EGD report. There are no mechanically obstructive lesions, and biopsies a re routinely taken to rule out eosinophilic esophagitis, although this is unlikely to present at this patient's age and with dramatic weight loss and dysphagia to solids and liquids equally. Her symptoms point more toward achalasia or other non specific motility disorders. Suggest obtaining an appt in our GI clinic at discharge so we can arrange for a high resolution esophageal manometry. Subjective Date/time seen: 05/15/24 15:38 Interval history: Patient states she has difficulty to swallow liquids and solids for several months. She has lost around 70 lb according to her. There is no nausea, vomiting or epigastric pain. Exam Const: General: comfortable and no acute distress Orientation/consciousness: patient oriented x3 GI: Inspection: normal to inspection, no abdominal wall ecchymosis, non- distended, obesity and no visible herniation GI Palp: Yes Soft to palpation and Yes Tenderness to palpation present (GI) (Only to deep palpation left lower quadrant) Neuro: General: patient oriented x3 and no focal motor deficits Extrem: General: no calf tenderness and no edema Psych: Affect: normal affect Insight: Good insight present (Psych) Judgement: Good judgement present (Psych) Objective Data Vital Signs Vital Signs: Vital Signs - 24 hr 05/14/24 20:00 05/14/24 20:47 05/15/24 05:13 Temperature 97.6 F 97.6 F Pulse Rate 83 69 Respiratory Rate 16 18 Blood Pressure 124/75 140/56 L Pulse Oximetry 100 98 Oxygen Delivery Room Air 05/15/24 08:21 05/15/24 09:06 05/15/24 13:39 Temperature 98.2 F Pulse Rate 71 Respiratory Rate 18 Blood Pressure 124/68 Pulse Oximetry 99 Oxygen Delivery Room Air Room Air 05/15/24 14:18 Temperature 97.2 F L Pulse Rate 74 Respiratory Rate 18 Blood Pressure 151/72 H Pulse Oximetry 99 Oxygen Delivery Room Air Intake/Output Intake/Output: Intake & Output 05/12/24 05/13/24 05/14/24 05/15/24 23:59 23:59 23:59 23:59 Intake Total 2925 1090 400 350 Balance 2925 1090 400 350 Meds/Results Medications: Active Medications Generic Name Dose Route Start Last Admin Trade Name Freq PRN Reason Stop Dose Admin Acetaminophen 650 mg 05/09/24 17:35 Acetaminophen 325 Mg Tablet PO Q6H PRN Mild Pain (1-3) or Fever Alprazolam 1 mg 05/09/24 20:14 Alprazolam (*Crx) 0.5 Mg Tablet PO QID PRN anxiety Enoxaparin Sodium 30 mg 05/11/24 09:00 05/14/24 14:00 Enoxaparin 30 Mg/0.3 Ml Syringe SUB-Q 30 mg DAILY SOLITARIO Administration Hydrochlorothiazide 12.5 mg 05/10/24 09:00 05/11/24 09:22 Hydrochlorothiazide 12.5 Mg Capsule PO 12.5 mg QAM SOLITARIO Administration Cefepime HCl 1 gm in 50 mls @ 100 mls/hr 05/10/24 06:00 05/15/24 04:55 Maxipime 1 Gm/Ns 50 Ml IVPB 100 mls/hr Q12H SOLITARIO Administration Metronidazole 500 mg in 100 mls @ 100 mls/hr 05/10/24 00:00 05/15/24 04:55 Flagyl 500 Mg/Iso Soln 100 Ml IVPB 100 mls/hr Q8H SOLITARIO Administration Lactated Ringer's 1,000 mls @ 150 mls/hr 05/15/24 13:40 05/15/24 15:35 Lr - Lactated Ringers Iv IV CONT 150 mls/hr .Q6H40M SOLITARIO Infusion Lactated Ringer's 1,000 mls @ 150 mls/hr 05/15/24 14:15 Lr - Lactated Ringers Iv IV CONT .Q6H40M SOLITARIO Levothyroxine Sodium 75 mcg 05/10/24 06:30 05/15/24 04:55 Levothyroxine Sodium 75 Mcg Tablet PO 75 mcg DAILY@0630 SOLITARIO Administration Meclizine HCl 12.5 mg 05/13/24 15:29 05/14/24 12:01 Meclizine Hcl 12.5 Mg Tablet PO 12.5 mg TID PRN Administration dizziness Metoprolol Tartrate 50 mg 05/10/24 09:00 05/15/24 08:19 Metoprolol Tartrate 50 Mg Tab PO 50 mg Q12HR SOLITARIO Administration Montelukast Sodium 10 mg 05/10/24 09:00 05/15/24 08:19 Montelukast Sodium 10 Mg Tablet PO 10 mg DAILY SOLITARIO Administration Morphine Sulfate 2 mg 05/09/24 17:35 Morphine Sulfate (*Crx) 2 Mg/Ml Inj IV PUSH Q4H PRN Pain Rated 4-6 Morphine Sulfate 4 mg 05/09/24 17:35 05/11/24 10:23 Morphine Sulfate (*Crx) 4 Mg/Ml Inj IV PUSH 4 mg Q4H PRN Administration Pain Rated 7-10 Naloxone HCl 0.1 mg 05/09/24 17:37 Naloxone Hcl 0.4 Mg/Ml Vial IV PUSH Q5MIN PRN Sedation Olmesartan 40 mg 05/10/24 09:00 05/15/24 08:19 Olmesartan Medoxomil 20 Mg Tablet PO 40 mg QAM SOLITARIO Administration Ondansetron HCl 4 mg 05/09/24 17:05 05/14/24 15:33 Ondansetron Inj 4 Mg/2 Ml Vial IV PUSH 4 mg Q4H PRN Administration Nausea Pantoprazole Sodium 40 mg 05/10/24 09:00 05/15/24 08:20 Pantoprazole 40 Mg Tablet PO 40 mg QAM SOLITARIO Administration Potassium Chloride 10 meq 05/10/24 09:00 05/15/24 08:19 Potassium Chloride 10 Meq Er Tablet PO 10 meq DAILY SOLITARIO Administration Tramadol HCl 50 mg 05/09/24 21:35 05/14/24 20:38 Tramadol Hcl (*Crx) 50 Mg Tablet PO 50 mg HS SOLITARIO Administration Tramadol HCl 25 mg 05/11/24 12:02 05/13/24 01:03 Tramadol Hcl (*Crx) 25 Mg Tablet PO 25 mg Q6H PRN Administration Pain Rated 4-6 Trazodone HCl 200 mg 05/09/24 21:35 05/14/24 20:38 Trazodone Hcl 50 Mg Tablet PO 200 mg HS SOLITARIO Administration Radiology Results: ITS Impressions Abdomen/Pelvis CT 05/13/24 13:32 IMPRESSION: 1. Atrophic kidneys. 2. Highly suggestive descending colon and proximal sigmoid colon diverticulitis. Follow-up and clinical correlation advised. Upper GI Series 05/14/24 11:08 IMPRESSION: 1. Narrowing of the distalmost esophagus with smooth mucosal margins which could be due to either spasm or fixed stricture either benign or malignant. Would recommend endoscopy for further evaluation.
[2024-05-15] MEDS: ENOXAPARIN 30 MG/0.3 ML SYRINGE SUB-Q (16:41)
[2024-05-15] MEDS: traZODone HCL 50 MG TABLET 200 MG PO (20:31)
[2024-05-15] MEDS: traMADol HCL (*CRX) 50 MG TABLET PO (20:32)
[2024-05-15] MEDS: ONDANSETRON INJ 4 MG/2 ML VIAL IV PUSH (20:55)
[2024-05-16] MEDS: LEVOTHYROXINE SODIUM 75 MCG TABLET PO (02:38)
[2024-05-16] MEDS: MORPHINE SULFATE (*CRX) 4 MG/ML INJ IV PUSH (02:38)
[2024-05-16] MEDS: metroNIDAZOLE 500 MG/ISO 100ML 500 MG/100 ML BAG 100 MG IVPB (05:18)
[2024-05-16] MEDS: CEFEPIME 1 GM/NS 50 ML 1 GM/50 ML BAG IVPB (05:20)
[2024-05-16 06:00] VITALS: BP 129/65; PULSE 77; RESP 18; TEMP 36.6; O2SAT 98
--- NOTE | 2024-05-16 08:26 | PM.PNGS ---
Progress Note: A&P Assessment and Plan (1) Diverticulitis of intestine with perforation without abscess: Qualifiers: Diverticulitis site: large intestine Diverticulitis bleeding: without bleeding Qualified Code(s): K57.20 - Diverticulitis of large intestine with perforation and abscess without bleeding Code(s): K57.80 - Diverticulitis of intestine, part unspecified, with perforation and abscess without bleeding Status: Acute Assessment and Plan: Will discontinue IV antibiotics and change to oral Augmentin. She should probably go home on this for another week. She will be following up with gastroenterology regarding some esophageal manometry testing. No need for surgical follow-up. I will go ahead and sign off. (2) Postprandial vomiting: Code(s): R11.10 - Vomiting, unspecified Status: Acute Assessment and Plan: EGD showed no real reason for the emesis. Patient would actually like to go home. Follow-up with Gastroenterology as suggested in the EGD procedure note. Subjective Subjective Date/Time Seen: 05/16/24 08:26 Patient reports: pain is less (No lower abdominal pain), tolerating liquids well and vomiting Interval history: EGD results noted-only small hiatal hernia but no signs of ulcer gastritis or other reason for postprandial emesis. Review of Systems Review of Systems: All systems reviewed & are unremarkable except as noted in HPI and below (HPI) Exam Const: General: cooperative, comfortable, no acute distress, alert and awake Nutritional Appearance: obese GI: Inspection: normal to inspection, non-distended and obesity GI Palp: Yes Soft to palpation and No Tenderness to palpation present (GI) Auscultation: normal bowel sounds Neuro: General: no focal motor deficits Extrem: General: no calf tenderness and no edema Psych: Affect: normal affect Insight: Good insight present (Psych) Judgement: Good judgement present (Psych) Objective Data Vital Signs Vital Signs: Vital Signs - 24 hr 05/15/24 09:06 05/15/24 13:39 05/15/24 14:00 Temperature 36.8 C 36.8 C Pulse Rate 71 71 Respiratory Rate 18 18 Blood Pressure 124/68 124/68 Pulse Oximetry 99 99 Oxygen Delivery Room Air 05/15/24 14:18 05/15/24 15:38 05/15/24 15:48 Temperature 36.2 C L Pulse Rate 74 81 70 Respiratory Rate 18 22 H 18 Blood Pressure 151/72 H 108/43 L 137/62 Pulse Oximetry 99 100 100 Oxygen Delivery Room Air Room Air Room Air 05/15/24 15:58 05/15/24 20:00 05/15/24 21:32 Temperature 36.6 C Pulse Rate 76 70 70 Respiratory Rate 14 18 18 Blood Pressure 129/70 122/59 L Pulse Oximetry 99 98 98 Oxygen Delivery Room Air Room Air 05/16/24 06:00 Temperature 36.6 C Pulse Rate 77 Respiratory Rate 18 Blood Pressure 129/65 Pulse Oximetry 98 Oxygen Delivery Intake/Output Intake/Output: Intake & Output 05/13/24 05/14/24 05/15/24 05/16/24 23:59 23:59 23:59 23:59 Intake Total 2412 495 1665 1380 Output Total 1 Balance 6647 922 0700 1380 Meds/Results Medications: Active Medications Generic Name Dose Route Start Last Admin Trade Name Freq PRN Reason Stop Dose Admin Acetaminophen 650 mg 05/09/24 17:35 Acetaminophen 325 Mg Tablet PO Q6H PRN Mild Pain (1-3) or Fever Alprazolam 1 mg 05/09/24 20:14 Alprazolam (*Crx) 0.5 Mg Tablet PO QID PRN anxiety Amoxicillin/Clavulanate Potassium 1 tablet 05/16/24 09:00 Amoxicillin/Clavulanate K 875-125 Mg Tab PO Q12HR SOLITARIO Enoxaparin Sodium 30 mg 05/11/24 09:00 05/15/24 16:41 Enoxaparin 30 Mg/0.3 Ml Syringe SUB-Q 30 mg DAILY SOLITARIO Administration Hydrochlorothiazide 12.5 mg 05/10/24 09:00 05/11/24 09:22 Hydrochlorothiazide 12.5 Mg Capsule PO 12.5 mg QAM SOLITARIO Administration Levothyroxine Sodium 75 mcg 05/10/24 06:30 05/16/24 02:38 Levothyroxine Sodium 75 Mcg Tablet PO 75 mcg DAILY@0630 SOLITARIO Administration Meclizine HCl 12.5 mg 05/13/24 15:29 05/14/24 12:01 Meclizine Hcl 12.5 Mg Tablet PO 12.5 mg TID PRN Administration dizziness Metoprolol Tartrate 50 mg 05/10/24 09:00 05/15/24 20:32 Metoprolol Tartrate 50 Mg Tab PO 50 mg Q12HR SOLITARIO Administration Montelukast Sodium 10 mg 05/10/24 09:00 05/15/24 08:19 Montelukast Sodium 10 Mg Tablet PO 10 mg DAILY SOLITARIO Administration Morphine Sulfate 2 mg 05/09/24 17:35 Morphine Sulfate (*Crx) 2 Mg/Ml Inj IV PUSH Q4H PRN Pain Rated 4-6 Morphine Sulfate 4 mg 05/09/24 17:35 05/16/24 02:38 Morphine Sulfate (*Crx) 4 Mg/Ml Inj IV PUSH 4 mg Q4H PRN Administration Pain Rated 7-10 Naloxone HCl 0.1 mg 05/09/24 17:37 Naloxone Hcl 0.4 Mg/Ml Vial IV PUSH Q5MIN PRN Sedation Olmesartan 40 mg 05/10/24 09:00 05/15/24 08:19 Olmesartan Medoxomil 20 Mg Tablet PO 40 mg QAM SOLITARIO Administration Ondansetron HCl 4 mg 05/09/24 17:05 05/15/24 20:55 Ondansetron Inj 4 Mg/2 Ml Vial IV PUSH 4 mg Q4H PRN Administration Nausea Pantoprazole Sodium 40 mg 05/10/24 09:00 05/15/24 08:20 Pantoprazole 40 Mg Tablet PO 40 mg QAM SOLITARIO Administration Potassium Chloride 10 meq 05/10/24 09:00 05/15/24 08:19 Potassium Chloride 10 Meq Er Tablet PO 10 meq DAILY SOLITARIO Administration Tramadol HCl 50 mg 05/09/24 21:35 05/15/24 20:32 Tramadol Hcl (*Crx) 50 Mg Tablet PO 50 mg HS SOLITARIO Administration Tramadol HCl 25 mg 05/11/24 12:02 05/13/24 01:03 Tramadol Hcl (*Crx) 25 Mg Tablet PO 25 mg Q6H PRN Administration Pain Rated 4-6 Trazodone HCl 200 mg 05/09/24 21:35 05/15/24 20:31 Trazodone Hcl 50 Mg Tablet PO 200 mg HS SOLITARIO Administration Radiology Results: ITS Impressions Abdomen/Pelvis CT 05/13/24 13:32 IMPRESSION: 1. Atrophic kidneys. 2. Highly suggestive descending colon and proximal sigmoid colon diverticulitis. Follow-up and clinical correlation advised. Upper GI Series 05/14/24 11:08 IMPRESSION: 1. Narrowing of the distalmost esophagus with smooth mucosal margins which could be due to either spasm or fixed stricture either benign or malignant. Would recommend endoscopy for further evaluation.
[2024-05-16] MEDS: ONDANSETRON INJ 4 MG/2 ML VIAL IV PUSH (09:07)
[2024-05-16] MEDS: ENOXAPARIN 30 MG/0.3 ML SYRINGE SUB-Q (09:40)
[2024-05-16] MEDS: hydroCHLOROthiazide 12.5 MG CAPSULE PO (09:40)
[2024-05-16] MEDS: POTASSIUM CHLORIDE 10 MEQ ER TABLET PO (09:40)
[2024-05-16] MEDS: OLMESARTAN MEDOXOMIL 20 MG TABLET 40 MG PO (09:40)
[2024-05-16] MEDS: AMOXICILLIN/CLAVULANATE K 875-125 MG TAB 1 TABLET PO (09:40)
[2024-05-16] MEDS: MONTELUKAST SODIUM 10 MG TABLET PO (09:40)
[2024-05-16] MEDS: METOPROLOL TARTRATE 50 MG TAB PO ×2 (09:40→20:10)
[2024-05-16] MEDS: PANTOPRAZOLE 40 MG TABLET PO (09:41)
--- NOTE | 2024-05-16 10:24 | P.PNIM_ITS ---
Progress Note: A&P Assessment and Plan (1) Esophageal stricture: Code(s): K22.2 - Esophageal obstruction Status: Acute Assessment and Plan: Patient continues to have nausea with an emesis episode - Repeat CT: Atrophic kidneys. Highly suggestive descending colon and proximal sigmoid colon diverticulitis. Follow-up and clinical correlation advised. - Upper GI: Narrowing of the distalmost esophagus with smooth mucosal margins which could be due to either spasm or fixed stricture either benign or malignant. Would recommend endoscopy for further evaluation. - GI consulted, appreciate recommendations 05/15- EGD today to assess if stricture, esophagitis, ring or even malignancy 05/16: GI notes reviewed: See EGD report. There are no mechanically obstructive lesions, and biopsies are routinely taken to rule out eosinophilic esophagitis, although this is unlikely to present at this patient's age and with dramatic weight loss and dysphagia to solids and liquids equally. Her symptoms point more toward achalasia or other non specific motility disorders. Suggest obtaining an appt in our GI clinic at discharge so we can arrange for a high resolution esophageal manometry. (2) Diverticulitis: Code(s): K57.92 - Diverticulitis of intestine, part unspecified, without perforation or abscess without bleeding Status: Acute Assessment and Plan: - did not meet SIRS criteria, WBC only. - CT abdomen/pelvis: Diverticulitis at the ascending and descending colon, the latter with likely mild perforation but without evidence abscess - IV fluids: 1L bolus -> 125 mL/hr, monitor I&Os, DC - analgesics and antipyretics p.r.n. - Antibiotics: cefepime and Flagyl started on 05/09 - Diet: advanced to low fiber diet - serial abdominal exams - Monitor vital signs, I&Os, track stool output, watch for bloody stools, neuro status and patient is a fall risk - Monitor serum electrolytes and CBC - general surgery following Continue IV antibiotics If does well, can be advanced to low-fiber diet tomorrow. Plan for patient to be discharged low-fiber diet for 2 weeks. There is no colonoscopy records. Unless she has had one at another facility, colonoscopy would be advisable in 4-6 weeks. - Repeat CT: Atrophic kidneys. Highly suggestive descending colon and proximal sigmoid colon diverticulitis. Follow-up and clinical correlation advised. - Upper GI: Narrowing of the distalmost esophagus with smooth mucosal margins which could be due to either spasm or fixed stricture either benign or malignant. Would recommend endoscopy for further evaluation. - GI following (3) CKD (chronic kidney disease): Qualifiers: Chronic kidney disease stage: unspecified stage Qualified Code(s): N18.9 - Chronic kidney disease, unspecified Code(s): N18.9 - Chronic kidney disease, unspecified Status: Chronic Assessment and Plan: BUN/Cr 35/2.7 on admission, baseline appears to be 1.4-2.2 - BUN/Cr 20/2.2 on am labs - renally dose medications - avoid nephrotoxic medications - trend renal function - trend electrolytes, correct as needed (4) Hypertension: Qualifiers: Hypertension type: primary hypertension Qualified Code(s): I10 - Essential (primary) hypertension Code(s): I10 - Essential (primary) hypertension Status: Chronic Assessment and Plan: - chronic - home medications: Metoprolol 50 mg b.i.d., olmesartan-hydrochlorothiazide 40- 12.5 mg daily - continue metoprolol 50 mg BID and olmesartan 40 mg daily, HCTZ 12.5 mg daily on hold as patient has been borderline hypotensive - monitor (5) Hypothyroidism: Code(s): E03.9 - Hypothyroidism, unspecified Status: Acute Assessment and Plan: Chronic, continue home medication - Synthroid 75 mcg daily (6) Dizziness: Code(s): R42 - Dizziness and giddiness Status: Acute Assessment and Plan: Patient endorsing intermittent dizziness. She states that this has been ongoing for months. Likely secondary to vertigo. - Orthostatic vital signs negative - Vestibular therapy ordered - Meclizine ordered PRN Plan GI Prophylaxis: Not currently indicated DVT Prophylaxis: SCDs Lines: Peripheral Code Status: Full code Time Spent With Patient Time with patient: Greater than 35 minutes Subjective Date/time seen: 05/16/24 10:24 Interval history: Patient states she has difficulty to swallow liquids and solids for several months. She is following with GI/surg while here. no acute interventions. She is still struggling with keeping foods down. Review of Systems Review of Systems: All systems reviewed & are unremarkable except as noted in HPI and below Exam Narrative: General: female in no acute respiratory distress who is nontoxic appearing, sitting up in bed. HEENT: Normocephalic. Atraumatic. Extraocular movement intact. Sclera clear and anicteric. No facial asymmetry. Chest: Lungs are clear to auscultation bilaterally. No wheezes or crackles. CV: Heart was regular rate and rhythm. S1-S2. No murmurs, gallops, or rubs. Abd: Abdomen was soft. Nontender. Nondistended. Positive bowel sounds. No organomegaly or masses. Neuro: Patient is alert. Speech is clear. Const: General: comfortable and no acute distress Other: , female, obese body habitus, nontoxic appearance HENMT: Face/Nose/Sinus: Normal nares present Mouth: Yes moist mucous membranes Eyes: General: appearance normal, both eyes and all related structures Sclera: sclerae normal Pupils: Equal, round and reactive pupils present EOM: EOMs intact bilaterally Resp: Effort & Inspection: normal respiratory effort Auscultation: clear to auscultation bilaterally Cardio: Rate: regular rate Rhythm: regular rhythm Other: S1-S2 present without murmur, rub, ectopy GI: Other: Abdomen rounded, soft, nontender. Normoactive bowel sounds in all quadrants. Skin: General skin exam: normal color and no rashes or lesions noted Wounds: no wounds Neuro: Cranial nerves: Yes Equal, round and reactive pupils present Speech: normal speech Motor exam (neuro): 5/5 motor strength present throughout Sensory Exam: normal sensation Other: A&O x4 Extrem: General: normal to inspection Psych: Mental Status: mental status grossly normal Affect: normal affect Other: Good insight and judgment, very pleasant Objective Data Vital Signs Vital Signs: Vital Signs - 24 hr 05/15/24 13:39 05/15/24 14:00 05/15/24 14:18 Temperature 98.2 F 98.2 F 97.2 F L Pulse Rate 71 71 74 Respiratory Rate 18 18 18 Blood Pressure 124/68 124/68 151/72 H Pulse Oximetry 99 99 99 Oxygen Delivery Room Air 05/15/24 15:38 05/15/24 15:48 05/15/24 15:58 Temperature Pulse Rate 81 70 76 Respiratory Rate 22 H 18 14 Blood Pressure 108/43 L 137/62 129/70 Pulse Oximetry 100 100 99 Oxygen Delivery Room Air Room Air Room Air 05/15/24 20:00 05/15/24 21:32 05/16/24 06:00 Temperature 97.9 F 97.8 F Pulse Rate 70 70 77 Respiratory Rate 18 18 18 Blood Pressure 122/59 L 129/65 Pulse Oximetry 98 98 98 Oxygen Delivery Room Air Intake/Output Intake/Output: Intake & Output 05/13/24 05/14/24 05/15/24 05/16/24 23:59 23:59 23:59 23:59 Intake Total 4981 880 4175 1440 Output Total 1 Balance 5718 346 3723 1440 Meds/Results Medications: Active Medications Generic Name Dose Route Start Last Admin Trade Name Freq PRN Reason Stop Dose Admin Acetaminophen 650 mg 05/09/24 17:35 Acetaminophen 325 Mg Tablet PO Q6H PRN Mild Pain (1-3) or Fever Alprazolam 1 mg 05/09/24 20:14 Alprazolam (*Crx) 0.5 Mg Tablet PO QID PRN anxiety Amoxicillin/Clavulanate Potassium 1 tablet 05/16/24 09:00 05/16/24 09:40 Amoxicillin/Clavulanate K 875-125 Mg Tab PO 1 tablet Q12HR SOLITARIO Administration Enoxaparin Sodium 30 mg 05/11/24 09:00 05/16/24 09:40 Enoxaparin 30 Mg/0.3 Ml Syringe SUB-Q 30 mg DAILY SOLITARIO Administration Hydrochlorothiazide 12.5 mg 05/10/24 09:00 05/16/24 09:40 Hydrochlorothiazide 12.5 Mg Capsule PO 12.5 mg QAM SOLITARIO Administration Levothyroxine Sodium 75 mcg 05/10/24 06:30 05/16/24 02:38 Levothyroxine Sodium 75 Mcg Tablet PO 75 mcg DAILY@0630 SOLITARIO Administration Meclizine HCl 12.5 mg 05/13/24 15:29 05/14/24 12:01 Meclizine Hcl 12.5 Mg Tablet PO 12.5 mg TID PRN Administration dizziness Metoprolol Tartrate 50 mg 05/10/24 09:00 05/16/24 09:40 Metoprolol Tartrate 50 Mg Tab PO 50 mg Q12HR SOLITARIO Administration Montelukast Sodium 10 mg 05/10/24 09:00 05/16/24 09:40 Montelukast Sodium 10 Mg Tablet PO 10 mg DAILY SOLITARIO Administration Morphine Sulfate 2 mg 05/09/24 17:35 Morphine Sulfate (*Crx) 2 Mg/Ml Inj IV PUSH Q4H PRN Pain Rated 4-6 Morphine Sulfate 4 mg 05/09/24 17:35 05/16/24 02:38 Morphine Sulfate (*Crx) 4 Mg/Ml Inj IV PUSH 4 mg Q4H PRN Administration Pain Rated 7-10 Naloxone HCl 0.1 mg 05/09/24 17:37 Naloxone Hcl 0.4 Mg/Ml Vial IV PUSH Q5MIN PRN Sedation Olmesartan 40 mg 05/10/24 09:00 05/16/24 09:40 Olmesartan Medoxomil 20 Mg Tablet PO 40 mg QAM SOLITARIO Administration Ondansetron HCl 4 mg 05/09/24 17:05 05/16/24 09:07 Ondansetron Inj 4 Mg/2 Ml Vial IV PUSH 4 mg Q4H PRN Administration Nausea Pantoprazole Sodium 40 mg 05/10/24 09:00 05/16/24 09:41 Pantoprazole 40 Mg Tablet PO 40 mg QAM SOLITARIO Administration Potassium Chloride 10 meq 05/10/24 09:00 05/16/24 09:40 Potassium Chloride 10 Meq Er Tablet PO 10 meq DAILY SOLITARIO Administration Tramadol HCl 50 mg 05/09/24 21:35 05/15/24 20:32 Tramadol Hcl (*Crx) 50 Mg Tablet PO 50 mg HS SOLITARIO Administration Tramadol HCl 25 mg 05/11/24 12:02 05/13/24 01:03 Tramadol Hcl (*Crx) 25 Mg Tablet PO 25 mg Q6H PRN Administration Pain Rated 4-6 Trazodone HCl 200 mg 05/09/24 21:35 05/15/24 20:31 Trazodone Hcl 50 Mg Tablet PO 200 mg HS SOLITARIO Administration Radiology Results: ITS Impressions Abdomen/Pelvis CT 05/13/24 13:32 IMPRESSION: 1. Atrophic kidneys. 2. Highly suggestive descending colon and proximal sigmoid colon diverticulitis. Follow-up and clinical correlation advised. Upper GI Series 05/14/24 11:08 IMPRESSION: 1. Narrowing of the distalmost esophagus with smooth mucosal margins which could be due to either spasm or fixed stricture either benign or malignant. Would recommend endoscopy for further evaluation. Quality VTE Prophylaxis VTE prophylaxis: pharmacologic ordered
[2024-05-16 14:00] VITALS: BP 133/58; PULSE 65; RESP 16; TEMP 36; O2SAT 100
[2024-05-16] MEDS: METOCLOPRAMIDE HCL INJ 10 MG/2 ML VIAL IV PUSH (18:25)
[2024-05-16 20:00] VITALS: O2SAT 100
[2024-05-16] MEDS: AMOXICILLIN/CLAVULANATE K 500-125 MG TAB 1 TABLET PO (20:09)
[2024-05-16] MEDS: traZODone HCL 50 MG TABLET 200 MG PO (20:09)
[2024-05-16 20:10] VITALS: PULSE 80
[2024-05-16] MEDS: traMADol HCL (*CRX) 50 MG TABLET PO (20:10)
[2024-05-16 21:57] VITALS: BP 146/56; PULSE 69; RESP 20; TEMP 36.1; O2SAT 98
[2024-05-17] VITALS (7 sets, daily range): BP systolic 124–162; BP diastolic 55–91; PULSE 72–81; RESP 18–20; TEMP 36.1–36.6; O2SAT 98–100
[2024-05-17] MEDS: METOCLOPRAMIDE HCL INJ 10 MG/2 ML VIAL IV PUSH ×4 (00:32→18:12)
[2024-05-17] MEDS: LEVOTHYROXINE SODIUM 75 MCG TABLET PO (06:11)
[2024-05-17] MEDS: MONTELUKAST SODIUM 10 MG TABLET PO (09:58)
[2024-05-17] MEDS: AMOXICILLIN/CLAVULANATE K 500-125 MG TAB 1 TABLET PO ×2 (09:58→21:53)
[2024-05-17] MEDS: METOPROLOL TARTRATE 50 MG TAB PO ×2 (09:58→21:52)
[2024-05-17] MEDS: OLMESARTAN MEDOXOMIL 20 MG TABLET 40 MG PO (09:58)
[2024-05-17] MEDS: hydroCHLOROthiazide 12.5 MG CAPSULE PO (09:58)
[2024-05-17] MEDS: ENOXAPARIN 30 MG/0.3 ML SYRINGE SUB-Q (09:59)
[2024-05-17] MEDS: POTASSIUM CHLORIDE 10 MEQ ER TABLET PO (09:59)
[2024-05-17] MEDS: PANTOPRAZOLE 40 MG TABLET PO (10:00)
--- NOTE | 2024-05-17 14:07 | P.PNIM_ITS ---
Progress Note: A&P Assessment and Plan (1) Esophageal stricture: Code(s): K22.2 - Esophageal obstruction Status: Acute Assessment and Plan: Patient continues to have nausea with an emesis episode - Repeat CT: Atrophic kidneys. Highly suggestive descending colon and proximal sigmoid colon diverticulitis. Follow-up and clinical correlation advised. - Upper GI: Narrowing of the distalmost esophagus with smooth mucosal margins which could be due to either spasm or fixed stricture either benign or malignant. Would recommend endoscopy for further evaluation. - GI consulted, appreciate recommendations 05/15- EGD today to assess if stricture, esophagitis, ring or even malignancy 05/16: GI notes reviewed: See EGD report. There are no mechanically obstructive lesions, and biopsies are routinely taken to rule out eosinophilic esophagitis, although this is unlikely to present at this patient's age and with dramatic weight loss and dysphagia to solids and liquids equally. Her symptoms point more toward achalasia or other non specific motility disorders. Suggest obtaining an appt in our GI clinic at discharge so we can arrange for a high resolution esophageal manometry. 05/17 very poor oral intake due to nausea and vomiting. ordered reglan yesterday- helping somewhat. orthostatic earlier when working with PT/OT- will order IV fluids- 250 ml bolus, then infuse 1 l- monitor. Waiting for GI recommendatiosn for further treatment. (2) Diverticulitis: Code(s): K57.92 - Diverticulitis of intestine, part unspecified, without perforation or abscess without bleeding Status: Acute Assessment and Plan: - did not meet SIRS criteria, WBC only. - CT abdomen/pelvis: Diverticulitis at the ascending and descending colon, the latter with likely mild perforation but without evidence abscess - IV fluids: 1L bolus -> 125 mL/hr, monitor I&Os, DC - analgesics and antipyretics p.r.n. - Antibiotics: cefepime and Flagyl started on 05/09 - Diet: advanced to low fiber diet - serial abdominal exams - Monitor vital signs, I&Os, track stool output, watch for bloody stools, neuro status and patient is a fall risk - Monitor serum electrolytes and CBC - general surgery following Continue IV antibiotics If does well, can be advanced to low-fiber diet tomorrow. Plan for patient to be discharged low-fiber diet for 2 weeks. There is no colonoscopy records. Unless she has had one at another facility, colonoscopy would be advisable in 4-6 weeks. - Repeat CT: Atrophic kidneys. Highly suggestive descending colon and proximal sigmoid colon diverticulitis. Follow-up and clinical correlation advised. - Upper GI: Narrowing of the distalmost esophagus with smooth mucosal margins which could be due to either spasm or fixed stricture either benign or gopal gnant. Would recommend endoscopy for further evaluation. - surgery signed off (3) CKD (chronic kidney disease): Qualifiers: Chronic kidney disease stage: unspecified stage Qualified Code(s): N18.9 - Chronic kidney disease, unspecified Code(s): N18.9 - Chronic kidney disease, unspecified Status: Chronic Assessment and Plan: BUN/Cr 35/2.7 on admission, baseline appears to be 1.4-2.2 - BUN/Cr 20/2.2 on am labs - renally dose medications - avoid nephrotoxic medications - trend renal function - trend electrolytes, correct as needed (4) Hypertension: Qualifiers: Hypertension type: primary hypertension Qualified Code(s): I10 - Essential (primary) hypertension Code(s): I10 - Essential (primary) hypertension Status: Chronic Assessment and Plan: - chronic - home medications: Metoprolol 50 mg b.i.d., olmesartan-hydrochlorothiazide 40- 12.5 mg daily - continue metoprolol 50 mg BID and olmesartan 40 mg daily, HCTZ 12.5 mg daily on hold as patient has been borderline hypotensive - monitor (5) Hypothyroidism: Code(s): E03.9 - Hypothyroidism, unspecified Status: Acute Assessment and Plan: Chronic, continue home medication - Synthroid 75 mcg daily (6) Dizziness: Code(s): R42 - Dizziness and giddiness Status: Acute Assessment and Plan: Patient endorsing intermittent dizziness. She states that this has been ongoing for months. Likely secondary to vertigo. - Vestibular therapy ordered - Meclizine ordered PRN 05/17- orthostatic when working with PT/OT-will give 250 ml bolus, then the rest of 1 l. monitor Plan GI Prophylaxis: Not currently indicated DVT Prophylaxis: SCDs Lines: Peripheral Code Status: Full code Time Spent With Patient Time with patient: Greater than 35 minutes Subjective Date/time seen: 05/17/24 14:07 Interval history: Patient states she has difficulty to swallow liquids and solids for several months. She is following with GI/surg. she is nauseated still and vomited few times. reglan helps a little bit. She is very concern about going home and she is not able to eat much at all as well as drink water. Plus she has no reliable transportation- so will need care coordination assistance with information about that. Review of Systems Review of Systems: All systems reviewed & are unremarkable except as noted in HPI and below Gastrointestinal: Gastrointestinal: Reports nausea and Reports vomiting Exam Narrative: General: female in no acute respiratory distress who is nontoxic appearing, sitting up in bed. HEENT: Normocephalic. Atraumatic. Extraocular movement intact. Sclera clear and anicteric. No facial asymmetry. Chest: Lungs are clear to auscultation bilaterally. No wheezes or crackles. CV: Heart was regular rate and rhythm. S1-S2. No murmurs, gallops, or rubs. Abd: Abdomen was soft. Nontender. Nondistended. Positive bowel sounds. No organomegaly or masses. Neuro: Patient is alert. Speech is clear. Const: General: comfortable and no acute distress Other: , female, obese body habitus, nontoxic appearance HENMT: Face/Nose/Sinus: Normal nares present Mouth: Yes moist mucous membranes Eyes: General: appearance normal, both eyes and all related structures Sclera: sclerae normal Pupils: Equal, round and reactive pupils present EOM: EOMs intact bilaterally Resp: Effort & Inspection: normal respiratory effort Auscultation: clear to auscultation bilaterally Cardio: Rate: regular rate Rhythm: regular rhythm Other: S1-S2 present without murmur, rub, ectopy GI: Other: Abdomen rounded, soft, nontender. Normoactive bowel sounds in all quadrants. Skin: General skin exam: normal color and no rashes or lesions noted Wounds: no wounds Neuro: Cranial nerves: Yes Equal, round and reactive pupils present Speech: normal speech Motor exam (neuro): 5/5 motor strength present throughout Sensory Exam: normal sensation Other: A&O x4 Extrem: General: normal to inspection Psych: Mental Status: mental status grossly normal Affect: normal affect Other: Good insight and judgment, very pleasant Objective Data Vital Signs Vital Signs: Vital Signs - 24 hr 05/16/24 20:00 05/16/24 20:10 05/16/24 21:57 Temperature 97.0 F L Pulse Rate 80 69 Respiratory Rate 20 Blood Pressure 146/56 H Pulse Oximetry 100 98 Oxygen Delivery Nasal Cannula Oxygen Flow Rate 4 05/17/24 06:00 05/17/24 09:58 05/17/24 12:10 Temperature 97.2 F L Pulse Rate 75 80 Respiratory Rate 20 Blood Pressure 124/62 162/91 H Pulse Oximetry 98 Oxygen Delivery Oxygen Flow Rate 05/17/24 12:12 05/17/24 13:59 Temperature 97.8 F Pulse Rate 77 Respiratory Rate 18 Blood Pressure 127/76 134/55 L Pulse Oximetry 98 Oxygen Delivery Oxygen Flow Rate Intake/Output Intake/Output: Intake & Output 05/14/24 05/15/24 05/16/24 05/17/24 23:59 23:59 23:59 23:59 Intake Total 400 1032 1802 1050 Output Total 1 800 Balance 400 1031 1802 250 Meds/Results Medications: Active Medications Generic Name Dose Route Start Last Admin Trade Name Freq PRN Reason Stop Dose Admin Acetaminophen 650 mg 05/09/24 17:35 Acetaminophen 325 Mg Tablet PO Q6H PRN Mild Pain (1-3) or Fever Alprazolam 1 mg 05/09/24 20:14 Alprazolam (*Crx) 0.5 Mg Tablet PO QID PRN anxiety Amoxicillin/Clavulanate Potassium 1 tablet 05/16/24 21:00 05/17/24 09:58 Amoxicillin/Clavulanate K 500-125 Mg Tab PO 1 tablet Q12HR SOLITARIO Administration Enoxaparin Sodium 30 mg 05/11/24 09:00 05/17/24 09:59 Enoxaparin 30 Mg/0.3 Ml Syringe SUB-Q 30 mg DAILY SOLITARIO Administration Hydrochlorothiazide 12.5 mg 05/10/24 09:00 05/17/24 09:58 Hydrochlorothiazide 12.5 Mg Capsule PO 12.5 mg QAM SOLITARIO Administration Sodium Chloride 1,000 mls @ 75 mls/hr 05/17/24 13:56 Normal Saline Iv IV CONT 05/18/24 03:15 .[id number] ONE Levothyroxine Sodium 75 mcg 05/10/24 06:30 05/17/24 06:11 Levothyroxine Sodium 75 Mcg Tablet PO 75 mcg DAILY@0630 SOLITARIO Administration Meclizine HCl 12.5 mg 05/13/24 15:29 12/17/24 12:01 Meclizine Hcl 12.5 Mg Tablet PO 12.5 mg TID PRN Administration dizziness Metoclopramide HCl 10 mg 05/16/24 18:00 05/17/24 12:40 Metoclopramide Hcl Inj 10 Mg/2 Ml Vial IV PUSH 10 mg Q6HR SOLITARIO Administration Metoprolol Tartrate 50 mg 05/10/24 09:00 05/17/24 09:58 Metoprolol Tartrate 50 Mg Tab PO 50 mg Q12HR SOLITARIO Administration Montelukast Sodium 10 mg 05/10/24 09:00 05/17/24 09:58 Montelukast Sodium 10 Mg Tablet PO 10 mg DAILY SOLITARIO Administration Morphine Sulfate 2 mg 05/09/24 17:35 Morphine Sulfate (*Crx) 2 Mg/Ml Inj IV PUSH Q4H PRN Pain Rated 4-6 Morphine Sulfate 4 mg 05/09/24 17:35 05/16/24 02:38 Morphine Sulfate (*Crx) 4 Mg/Ml Inj IV PUSH 4 mg Q4H PRN Administration Pain Rated 7-10 Naloxone HCl 0.1 mg 05/09/24 17:37 Naloxone Hcl 0.4 Mg/Ml Vial IV PUSH Q5MIN PRN Sedation Olmesartan 40 mg 05/10/24 09:00 05/17/24 09:58 Olmesartan Medoxomil 20 Mg Tablet PO 40 mg QAM SOLITARIO Administration Ondansetron HCl 4 mg 05/09/24 17:05 05/16/24 09:07 Ondansetron Inj 4 Mg/2 Ml Vial IV PUSH 4 mg Q4H PRN Administration Nausea Pantoprazole Sodium 40 mg 05/10/24 09:00 05/17/24 10:00 Pantoprazole 40 Mg Tablet PO 40 mg QAM SOLITARIO Administration Potassium Chloride 10 meq 05/10/24 09:00 05/17/24 09:59 Potassium Chloride 10 Meq Er Tablet PO 10 meq DAILY SOLITARIO Administration Tramadol HCl 50 mg 05/09/24 21:35 05/16/24 20:10 Tramadol Hcl (*Crx) 50 Mg Tablet PO 50 mg HS SOLITARIO Administration Tramadol HCl 25 mg 05/11/24 12:02 05/13/24 01:03 Tramadol Hcl (*Crx) 25 Mg Tablet PO 25 mg Q6H PRN Administration Pain Rated 4-6 Trazodone HCl 200 mg 05/09/24 21:35 05/16/24 20:09 Trazodone Hcl 50 Mg Tablet PO 200 mg HS SOLITARIO Administration Radiology Results: ITS Impressions Abdomen/Pelvis CT 05/13/24 13:32 IMPRESSION: 1. Atrophic kidneys. 2. Highly suggestive descending colon and proximal sigmoid colon diverticulitis. Follow-up and clinical correlation advised. Upper GI Series 05/14/24 11:08 IMPRESSION: 1. Narrowing of the distalmost esophagus with smooth mucosal margins which could be due to either spasm or fixed stricture either benign or malignant. Would recommend endoscopy for further evaluation. Quality VTE Prophylaxis VTE prophylaxis: pharmacologic ordered
[2024-05-17] MEDS: SODIUM CHLORIDE 0.9% IV 1,000 ML 75 ML IV CONT (18:13)
[2024-05-17] MEDS: traZODone HCL 50 MG TABLET 200 MG PO (21:52)
[2024-05-17] MEDS: traMADol HCL (*CRX) 50 MG TABLET PO (21:53)
[2024-05-18] MEDS: METOCLOPRAMIDE HCL INJ 10 MG/2 ML VIAL IV PUSH ×3 (00:42→13:17)
[2024-05-18 06:00] VITALS: BP 148/72; PULSE 74; RESP 20; TEMP 36.2; O2SAT 100
[2024-05-18] MEDS: LEVOTHYROXINE SODIUM 75 MCG TABLET PO (06:09)
[2024-05-18] MEDS: PANTOPRAZOLE 40 MG TABLET PO (10:18)
[2024-05-18] MEDS: OLMESARTAN MEDOXOMIL 20 MG TABLET 40 MG PO (10:18)
[2024-05-18] MEDS: MONTELUKAST SODIUM 10 MG TABLET PO (10:18)
[2024-05-18] MEDS: AMOXICILLIN/CLAVULANATE K 500-125 MG TAB 1 TABLET PO ×2 (10:18→21:00)
[2024-05-18] MEDS: hydroCHLOROthiazide 12.5 MG CAPSULE PO (10:18)
[2024-05-18] MEDS: POTASSIUM CHLORIDE 10 MEQ ER TABLET PO (10:18)
[2024-05-18 10:19] VITALS: PULSE 84
[2024-05-18] MEDS: ENOXAPARIN 30 MG/0.3 ML SYRINGE SUB-Q (10:19)
[2024-05-18] MEDS: METOPROLOL TARTRATE 50 MG TAB PO ×2 (10:19→20:59)
[2024-05-18] MEDS: ONDANSETRON INJ 4 MG/2 ML VIAL IV PUSH (12:28)
[2024-05-18 14:00] VITALS: BP 142/73; PULSE 77; RESP 16; TEMP 36.4; O2SAT 100
--- NOTE | 2024-05-18 14:00 | P.DS_ITS ---
DS: Admitting Diagnosis Discharge Date 05/18 Admitting Diagnosis abd pain DS: Discharge Diagnosis Discharge Diagnosis (1) Esophageal stricture: Code(s): K22.2 - Esophageal obstruction Status: Acute Assessment and Plan: Patient continues to have nausea with an emesis episode - Repeat CT: Atrophic kidneys. Highly suggestive descending colon and proximal sigmoid colon diverticulitis. Follow-up and clinical correlation advised. - Upper GI: Narrowing of the distalmost esophagus with smooth mucosal margins which could be due to either spasm or fixed stricture either benign or malignant. Would recommend endoscopy for further evaluation. - GI consulted, appreciate recommendations 05/15- EGD today to assess if stricture, esophagitis, ring or even malignancy 05/16: GI notes reviewed: See EGD report. There are no mechanically obstructive lesions, and biopsies are routinely taken to rule out eosinophilic esophagitis, although this is unlikely to present at this patient's age and with dramatic weight loss and dysphagia to solids and liquids equally. Her symptoms point more toward achalasia or other non specific motility disorders. Suggest obtaining an appt in our GI clinic at discharge so we can arrange for a high resolution esophageal manometry. 05/17 very poor oral intake due to nausea and vomiting. ordered reglan yesterday- helping somewhat. orthostatic earlier when working with PT/OT- will order IV fluids- 250 ml bolus, then infuse 1 l- monitor. Waiting for GI recommendatiosn for further treatment. (2) Diverticulitis: Code(s): K57.92 - Diverticulitis of intestine, part unspecified, without perforation or abscess without bleeding Status: Acute Assessment and Plan: - did not meet SIRS criteria, WBC only. - CT abdomen/pelvis: Diverticulitis at the ascending and descending colon, the latter with likely mild perforation but without evidence abscess - IV fluids: 1L bolus -> 125 mL/hr, monitor I&Os, DC - analgesics and antipyretics p.r.n. - Antibiotics: cefepime and Flagyl started on 05/09 - Diet: advanced to low fiber diet - serial abdominal exams - Monitor vital signs, I&Os, track stool output, watch for bloody stools, neuro status and patient is a fall risk - Monitor serum electrolytes and CBC - general surgery following Continue IV antibiotics If does well, can be advanced to low-fiber diet tomorrow. Plan for patient to be discharged low-fiber diet for 2 weeks. There is no colonoscopy records. Unless she has had one at another facility, colonoscopy would be advisable in 4-6 weeks. - Repeat CT: Atrophic kidneys. Highly suggestive descending colon and proximal sigmoid colon diverticulitis. Follow-up and clinical correlation advised. - Upper GI: Narrowing of the distalmost esophagus with smooth mucosal margins which could be due to either spasm or fixed stricture either benign or m alignant. Would recommend endoscopy for further evaluation. - surgery signed off (3) CKD (chronic kidney disease): Qualifiers: Chronic kidney disease stage: unspecified stage Qualified Code(s): N18.9 - Chronic kidney disease, unspecified Code(s): N18.9 - Chronic kidney disease, unspecified Status: Chronic Assessment and Plan: BUN/Cr 35/2.7 on admission, baseline appears to be 1.4-2.2 - BUN/Cr 20/2.2 on am labs - renally dose medications - avoid nephrotoxic medications - trend renal function - trend electrolytes, correct as needed (4) Hypertension: Qualifiers: Hypertension type: primary hypertension Qualified Code(s): I10 - Essential (primary) hypertension Code(s): I10 - Essential (primary) hypertension Status: Chronic Assessment and Plan: - chronic - home medications: Metoprolol 50 mg b.i.d., olmesartan-hydrochlorothiazide 40- 12.5 mg daily - continue metoprolol 50 mg BID and olmesartan 40 mg daily, HCTZ 12.5 mg daily on hold as patient has been borderline hypotensive - monitor (5) Hypothyroidism: Code(s): E03.9 - Hypothyroidism, unspecified Status: Acute Assessment and Plan: Chronic, continue home medication - Synthroid 75 mcg daily (6) Dizziness: Code(s): R42 - Dizziness and giddiness Status: Acute Assessment and Plan: Patient endorsing intermittent dizziness. She states that this has been ongoing for months. Likely secondary to vertigo. - Vestibular therapy ordered - Meclizine ordered PRN 12/20- orthostatic when working with PT/OT-will give 250 ml bolus, then the rest of 1 l. monitor Plan GI Prophylaxis: Not currently indicated DVT Prophylaxis: SCDs Lines: Peripheral Code Status: Full code DS: Summary Hospital Course Hospital Course: 73 y/o F presents here with abdominal pain with PMH of hypertension, SRIRAM intolerant of CPAP, agoraphobia, hypothyroidism, COPD, gout, and anxiety. Surgery was following for diverticulitis- she wa son IV antibiotics and switched to po. Recommendations to continue augmentin for few more days after discharge. EGD showed no real reason for the emesis. Patient would actually like to go home. Follow-up with Gastroenterology as suggested in the EGD procedure note. GI was following: See EGD report. There are no mechanically obstructive lesions, and biopsies are routinely taken to rule out eosinophilic esophagitis, although this is unlikely to present at this patient's age and with dramatic weight loss and dysphagia to solids and liquids equally. Her symptoms point more toward achalasia or other non specific motility disorders. Suggest obtaining an appt in our GI clinic at discharge so we can arrange for a high resolution esophageal manometry. Nausea and diarrhea could be from augment. Will add probiotic Status at Discharge Functional status at discharge: uses cane/walker Overall status at discharge: patient is progressing back to baseline Time Spent with Patient Time attestation: Total time spent providing and/or coordinating discharge services: Time spent: Greater than 30 minutes Exam Narrative: General: female in no acute respiratory distress who is nontoxic appearing, sitting up in chair. HEENT: Normocephalic. Atraumatic. Extraocular movement intact. Sclera clear and anicteric. No facial asymmetry. Chest: Lungs are clear to auscultation bilaterally. No wheezes or crackles. CV: Heart was regular rate and rhythm. S1-S2. No murmurs, gallops, or rubs. Abd: Abdomen was soft. Nontender. Nondistended. Positive bowel sounds. No organomegaly or masses. Neuro: Patient is alert. Speech is clear. Const: General: comfortable and no acute distress Other: , female, obese body habitus, nontoxic appearance HENMT: Face/Nose/Sinus: Normal nares present Mouth: Yes moist mucous membranes Eyes: General: appearance normal, both eyes and all related structures Sclera: sclerae normal Pupils: Equal, round and reactive pupils present EOM: EOMs intact bilaterally Resp: Effort & Inspection: normal respiratory effort Auscultation: clear to auscultation bilaterally Cardio: Rate: regular rate Rhythm: regular rhythm Other: S1-S2 present without murmur, rub, ectopy GI: Other: Abdomen rounded, soft, nontender. Normoactive bowel sounds in all quadrants. Skin: General skin exam: normal color and no rashes or lesions noted Wounds: no wounds Neuro: Cranial nerves: Yes Equal, round and reactive pupils present Speech: normal speech Motor exam (neuro): 5/5 motor strength present throughout Sensory Exam: normal sensation Other: A&O x4 Extrem: General: normal to inspection Psych: Mental Status: mental status grossly normal Affect: normal affect Other: Good insight and judgment, very pleasant DS: Data Data Completed and Pending Completed studies during hospitalization: Pending at discharge 05/15/24 15:33 Surgical [PTH] Routine Discharge Plan Discharge Attending physician on discharge: Ramiro Cam Consulting providers: Morales Collins Discharging Clinician: Salome Wayne Patient Disposition: Home, Self-Care Activity: as tolerated Diet: as tolerated and low fiber Discharge Instructions: Discharge disposition: Patient admitted to the hospital for acute diverticulitis as seen on imaging Surgery consulted, no surgical intervention required at this time Continue antibiotics to complete the course, finish this medication even if feeling better Remain on a low fiber diet, attached is information on this diet. Follow up with surgery, call for an appointment There is no colonoscopy records in your chart. Unless you have had one at another facility, colonoscopy would be advisable in 4-6 weeks. Continue to monitor blood pressures at home Medications: Continue metoprolol 50 mg twice a day Stop Benicar HCT (olmesartan-hydrochlorothiazide) Started on olmesartan 40 mg daily Follow up with your primary care provider about resuming the medication Take caution while standing, rising, or moving Change positions slowly taking a break between each position change If you standing feel dizzy sit back down and take a break Take all medications as prescribed even if feeling better Eat well balanced meals and stay hydrated Keep active to remain strong Encouraged to continue with yearly vaccinations Return to the emergency department if he developed sudden shortness of breath, chest pain, nausea, vomiting, upset stomach or intractable diarrhea Return to the emergency department if you develop fever greater than 101.5 Follow-up with the primary care physician within 1 weeks follow up with GI for further eval Thank you for choosing [facility] for your healthcare needs Patient Instructions: Antibiotic Form, Diverticulitis (DC), Low Fiber Diet (DC) Patient Language: Welsh Stand Alone Forms: General Discharge Information Follow-up/Referrals: Kareem oPsada MD [Physician] - Call for Appointment Morales Collins MD [Physician] - 1 Week UNKNOWN,DOCTOR [Primary Care Provider] - 1 Week Discharge Medications: New amoxicillin-pot clavulanate [Augmentin] 500-125 mg Tablet 1 tablet PO Q12HR Qty: 10 0RF meclizine 12.5 mg Tablet 12.5 mg PO TID PRN (Reason: dizziness) Qty: 60 0RF ondansetron 4 mg tablet,disintegrating 4 mg PO Q8H PRN (Reason: nausea and vomiting) Qty: 60 0RF metoclopramide HCl [Reglan] 10 mg tablet 10 mg PO Q6H PRN (Reason: nausea and vomiting) Qty: 30 0RF Continued levothyroxine [Synthroid] 75 mcg tablet 1 tablet PO DAILY trazodone 100 mg tablet 2 tablet PO HS esomeprazole magnesium [Nexium] 40 mg capsule,delayed release(DR/EC) 1 cap PO 2XD metoprolol tartrate [Lopressor] 50 mg tablet 1 tablet PO BID montelukast [Singulair] 10 mg tablet 1 tablet PO DAILY olmesartan-hydrochlorothiazide [Benicar HCT] 40-12.5 mg tablet 1 tablet PO DAILY alprazolam 1 mg tablet 1 mg PO QID PRN (Reason: anxiety) tramadol 50 mg tablet 50 mg PO HS potassium chloride [Klor-Con 10] 10 mEq tablet extended release 1 tablet PO DAILY Qty: 30 0RF Date of admission: 05/11/24 12:21 Primary Care Provider: UNKNOWN,DOCTOR Admitting Provider: Patty Toledo Attending physician on admission: Germaine Espino Condition: Stable Quality VTE Prophylaxis VTE prophylaxis: pharmacologic ordered Hospitalist MIPS Heart Failure (Exclusion) Patient has history of Heart Transplant or Left Ventricular Assistive Device?: No IF YES, STOP HERE Heart Failure (Qualifier) Patient has current or prior documentation of LVEF less than or equal to 40%, or mod/servere depressed LVSF?: No IF NO, STOP HERE
[2024-05-18] MEDS: BELLADONNA ALK/PHENOB ELIX 10 ML, MAG HYDROX/ALUMINUM HYD/SIMETH 30 ML, LIDOCAINE 2% VI... PO (14:46)
[2024-05-18] MEDS: PANTOPRAZOLE SODIUM IV 40 MG VIAL IV PUSH (14:47)
[2024-05-18] MEDS: SODIUM CHLORIDE 0.9% IV 1,000 ML 75 ML IV CONT (14:47)
[2024-05-18] MEDS: SACCHAROMYCES BOULARDII 250 MG CAPSULE PO (17:08)
[2024-05-18] MEDS: METOCLOPRAMIDE HCL 10 MG/10 ML SOLN UDC FEED TUBE (18:32)
[2024-05-18 20:21] VITALS: BP 155/70; PULSE 82; RESP 14; TEMP 36.7; O2SAT 99
[2024-05-18 20:59] VITALS: PULSE 64
[2024-05-18] MEDS: traMADol HCL (*CRX) 50 MG TABLET PO (20:59)
[2024-05-18] MEDS: traZODone HCL 50 MG TABLET 200 MG PO (20:59)
--- NOTE | 2024-05-18 21:41 | PC.NURSE ---
This patient, Melissa Tom, was received from [U [id number] ] on 05/18/24 at 2141. Patient/family oriented to unit policies and routines
[2024-05-18] MEDS: MORPHINE SULFATE (*CRX) 4 MG/ML INJ IV PUSH (22:33)
[2024-05-19] MEDS: METOCLOPRAMIDE HCL 10 MG/10 ML SOLN UDC FEED TUBE ×5 (00:24→23:51)
[2024-05-19 05:59] VITALS: BP 129/59; PULSE 80; RESP 16; TEMP 36.5; O2SAT 98
[2024-05-19] MEDS: LEVOTHYROXINE SODIUM 75 MCG TABLET PO (06:45)
[2024-05-19 08:32] LABS: Hemoglobin 10.4 g/dL (12.0-15.0); Mean Corpuscular HGB Conc 32.5 g/dl (32-36); Mean Corpuscular Hemoglobin 31.5 pg (26-34); Mean Platelet Volume 9.6 fl (7.4-10.4); Platelet Count Result 212 k/mm3 (150-375); White Blood Count 9.1 K/mm3 (4.5-10.0)
[2024-05-19 08:44] VITALS: PULSE 80
[2024-05-19] MEDS: POTASSIUM CHLORIDE 10 MEQ ER TABLET PO (08:44)
[2024-05-19] MEDS: PANTOPRAZOLE 40 MG TABLET PO (08:44)
[2024-05-19] MEDS: METOPROLOL TARTRATE 50 MG TAB PO ×2 (08:44→20:43)
[2024-05-19] MEDS: AMOXICILLIN/CLAVULANATE K 500-125 MG TAB 1 TABLET PO ×2 (08:44→20:43)
[2024-05-19] MEDS: MONTELUKAST SODIUM 10 MG TABLET PO (08:44)
[2024-05-19] MEDS: OLMESARTAN MEDOXOMIL 20 MG TABLET 40 MG PO (08:44)
[2024-05-19] MEDS: SACCHAROMYCES BOULARDII 250 MG CAPSULE PO ×3 (08:44→16:27)
[2024-05-19] MEDS: hydroCHLOROthiazide 12.5 MG CAPSULE PO (08:44)
[2024-05-19 08:45] LABS: Anion Gap 5 mmol/L (4-12); Blood Urea Nitrogen 22 mg/dL (7-17); Calcium 7.9 mg/dL (8.4-10.2); Carbon Dioxide 20 mmol/L (22-30); Chloride 117 mmol/L (98-107); Estimated CRCL calculation 27 ml/min; Estimated Glomerular Filt Rate 26; Glucose 120 mg/dL (65-110); Potassium 3.5 mmol/L (3.4-5.0); Sodium 142 mmol/L (137-145)
[2024-05-19] MEDS: ENOXAPARIN 30 MG/0.3 ML SYRINGE SUB-Q (08:45)
--- NOTE | 2024-05-19 12:05 | PCPTNOTE ---
Attempted to see patient for Physical Therapy today. Patient declined to participate in therapy due to her stomach feeling icky due to taking a lot of medicine.
--- NOTE | 2024-05-19 14:21 | PM.IMPN ---
Progress Note: A&P Assessment and Plan (1) Esophageal stricture: Code(s): K22.2 - Esophageal obstruction Status: Acute Assessment and Plan: Patient continues to have nausea with an emesis episode - Repeat CT: Atrophic kidneys. Highly suggestive descending colon and proximal sigmoid colon diverticulitis. Follow-up and clinical correlation advised. - Upper GI: Narrowing of the distalmost esophagus with smooth mucosal margins which could be due to either spasm or fixed stricture either benign or malignant. Would recommend endoscopy for further evaluation. - GI consulted, appreciate recommendations 05/15- EGD today to assess if stricture, esophagitis, ring or even malignancy 05/16: GI notes reviewed: See EGD report. There are no mechanically obstructive lesions, and biopsies are routinely taken to rule out eosinophilic esophagitis, although this is unlikely to present at this patient's age and with dramatic weight loss and dysphagia to solids and liquids equally. Her symptoms point more toward achalasia or other non specific motility disorders. Suggest obtaining an appt in our GI clinic at discharge so we can arrange for a high resolution esophageal manometry. 05/17 very poor oral intake due to nausea and vomiting. ordered reglan yesterday- helping somewhat. orthostatic earlier when working with PT/OT- will order IV fluids- 250 ml bolus, then infuse 1 l- monitor. Waiting for GI recommendation for further treatment. 05/19- NG tube in place- pt is tolerating it well' (2) Diverticulitis: Code(s): K57.92 - Diverticulitis of intestine, part unspecified, without perforation or abscess without bleeding Status: Acute Assessment and Plan: - did not meet SIRS criteria, WBC only. - CT abdomen/pelvis: Diverticulitis at the ascending and descending colon, the latter with likely mild perforation but without evidence abscess - IV fluids: 1L bolus -> 125 mL/hr, monitor I&Os, DC - analgesics and antipyretics p.r.n. - Antibiotics: cefepime and Flagyl started on 05/09 - Diet: advanced to low fiber diet - serial abdominal exams - Monitor vital signs, I&Os, track stool output, watch for bloody stools, neuro status and patient is a fall risk - Monitor serum electrolytes and CBC - general surgery following Continue IV antibiotics If does well, can be advanced to low-fiber diet tomorrow. Plan for patient to be discharged low-fiber diet for 2 weeks. There is no colonoscopy records. Unless she has had one at another facility, colonoscopy would be advisable in 4-6 weeks. - Repeat CT: Atrophic kidneys. Highly suggestive descending colon and proximal sigmoid colon diverticulitis. Follow-up and clinical correlation advised. - Upper GI: Narrowing of the distalmost esophagus with smooth mucosal margins which could be due to either spasm or fixed stricture either benign or malignant. Would recommend endoscopy for further evaluation. - surgery signed off 0will finish augmentin (3) CKD (chronic kidney disease): Qualifiers: Chronic kidney disease stage: unspecified stage Qualified Code(s): N18.9 - Chronic kidney disease, unspecified Code(s): N18.9 - Chronic kidney disease, unspecified Status: Chronic Assessment and Plan: BUN/Cr 35/2.7 on admission, baseline appears to be 1.4-2.2 - BUN/Cr 20/2.2 on am labs - renally dose medications - avoid nephrotoxic medications - trend renal function - trend electrolytes, correct as needed (4) Hypertension: Qualifiers: Hypertension type: primary hypertension Qualified Code(s): I10 - Essential (primary) hypertension Code(s): I10 - Essential (primary) hypertension Status: Chronic Assessment and Plan: - chronic - home medications: Metoprolol 50 mg b.i.d., olmesartan-hydrochlorothiazide 40-12.5 mg daily - continue metoprolol 50 mg BID and olmesartan 40 mg daily, HCTZ 12.5 mg daily on hold as patient has been borderline hypotensive - monitor (5) Hypothyroidism: Code(s): E03.9 - Hypothyroidism, unspecified Status: Acute Assessment and Plan: Chronic, continue home medication - Synthroid 75 mcg daily (6) Dizziness: Code(s): R42 - Dizziness and giddiness Status: Acute Assessment and Plan: Patient endorsing intermittent dizziness. She states that this has been ongoing for months. Likely secondary to vertigo. - Vestibular therapy ordered - Meclizine ordered PRN 05/17- orthostatic when working with PT/OT-will give 250 ml bolus, then the rest of 1 l. monitor Plan GI Prophylaxis: Not currently indicated DVT Prophylaxis: SCDs Lines: Peripheral Code Status: Full code Time Spent With Patient Time with patient: Greater than 35 minutes Subjective Date/time seen: 12/22/24 14:21 Interval history: She vomited several times yesterday as well as had several diarrhea stools- so discharge had to be postponed. Due to poor intake- NG was placed. She is tolerating it well. Some nausea still but no episodes of vomiting. Review of Systems Review of Systems: All systems reviewed & are unremarkable except as noted in HPI and below Gastrointestinal: Gastrointestinal: Reports nausea and Reports vomiting Exam Narrative: General: female in no acute respiratory distress who is nontoxic appearing, sitting up in chair. HEENT: Normocephalic. Atraumatic. Extraocular movement intact. Sclera clear and anicteric. No facial asymmetry. Chest: Lungs are clear to auscultation bilaterally. No wheezes or crackles. CV: Heart was regular rate and rhythm. S1-S2. No murmurs, gallops, or rubs. Abd: Abdomen was soft. Nontender. Nondistended. Positive bowel sounds. No organomegaly or masses. Neuro: Patient is alert. Speech is clear. Const: General: comfortable and no acute distress Other: , female, obese body habitus, nontoxic appearance HENMT: Face/Nose/Sinus: Normal nares present Mouth: Yes moist mucous membranes Eyes: General: appearance normal, both eyes and all related structures Sclera: sclerae normal Pupils: Equal, round and reactive pupils present EOM: EOMs intact bilaterally Resp: Effort & Inspection: normal respiratory effort Auscultation: clear to auscultation bilaterally Cardio: Rate: regular rate Rhythm: regular rhythm Other: S1-S2 present without murmur, rub, ectopy GI: Other: Abdomen rounded, soft, nontender. Normoactive bowel sounds in all quadrants. Skin: General skin exam: normal color and no rashes or lesions noted Wounds: no wounds Neuro: Cranial nerves: Yes Equal, round and reactive pupils present Speech: normal speech Motor exam (neuro): 5/5 motor strength present throughout Sensory Exam: normal sensation Other: A&O x4 Extrem: General: normal to inspection Psych: Mental Status: mental status grossly normal Affect: normal affect Other: Good insight and judgment, very pleasant Objective Data Vital Signs Vital Signs: Vital Signs - 24 hr 05/18/24 20:00 05/18/24 20:21 05/18/24 20:59 Temperature 98.1 F Pulse Rate 82 64 Respiratory Rate 14 Blood Pressure 155/70 H Pulse Oximetry 99 Oxygen Delivery Room Air 05/19/24 05:59 05/19/24 08:00 05/19/24 08:44 Temperature 97.7 F Pulse Rate 80 80 Respiratory Rate 16 Blood Pressure 129/59 L Pulse Oximetry 98 Oxygen Delivery Room Air Intake/Output Intake/Output: Intake & Output 05/16/24 05/17/24 05/18/24 05/19/24 23:59 23:59 23:59 23:59 Intake Total 1802 1690 600 480 Output Total 800 900 Balance 1802 890 -300 480 Meds/Results Medications: Active Medications Generic Name Dose Route Start Last Admin Trade Name Freq PRN Reason Stop Dose Admin Acetaminophen 650 mg 05/09/24 17:35 Acetaminophen 325 Mg Tablet PO Q6H PRN Mild Pain (1-3) or Fever Alprazolam 1 mg 05/09/24 20:14 Alprazolam (*Crx) 0.5 Mg Tablet PO QID PRN anxiety Amoxicillin/Clavulanate Potassium 1 tablet 05/16/24 21:00 05/19/24 08:44 Amoxicillin/Clavulanate K 500-125 Mg Tab PO 1 tablet Q12HR SOLITARIO Administration Enoxaparin Sodium 30 mg 05/11/24 09:00 05/19/24 08:45 Enoxaparin 30 Mg/0.3 Ml Syringe SUB-Q 30 mg DAILY SOLITARIO Administration Hydrochlorothiazide 12.5 mg 05/10/24 09:00 05/19/24 08:44 Hydrochlorothiazide 12.5 Mg Capsule PO 12.5 mg QAM SOLITARIO Administration Levothyroxine Sodium 75 mcg 05/10/24 06:30 05/19/24 06:45 Levothyroxine Sodium 75 Mcg Tablet PO 75 mcg DAILY@0630 SOLITARIO Administration Meclizine HCl 12.5 mg 05/13/24 15:29 05/14/24 12:01 Meclizine Hcl 12.5 Mg Tablet PO 12.5 mg TID PRN Administration dizziness Metoclopramide HCl 10 mg 05/18/24 18:00 05/19/24 11:53 Metoclopramide Hcl 10 Mg/10 Ml Soln Udc FEED TUBE 10 mg Q6HR SOLITARIO Administration Metoprolol Tartrate 50 mg 05/10/24 09:00 05/19/24 08:44 Metoprolol Tartrate 50 Mg Tab PO 50 mg Q12HR SOLITARIO Administration Miscellaneous Information 1 each 05/18/24 00:01 Alprazolam Will 05/19/24 If Not Renewed XX 06/17/24 00:00 [facility] Miscellaneous Information 0 each 05/18/24 00:01 Tramadol Renew If Still Needed Or Will Auto D/C XX 06/17/24 00:00 [facility] Montelukast Sodium 10 mg 05/10/24 09:00 05/19/24 08:44 Montelukast Sodium 10 Mg Tablet PO 10 mg DAILY SOLITARIO Administration Morphine Sulfate 2 mg 05/09/24 17:35 Morphine Sulfate (*Crx) 2 Mg/Ml Inj IV PUSH Q4H PRN Pain Rated 4-6 Morphine Sulfate 4 mg 05/09/24 17:35 05/18/24 22:33 Morphine Sulfate (*Crx) 4 Mg/Ml Inj IV PUSH 4 mg Q4H PRN Administration Pain Rated 7-10 Naloxone HCl 0.1 mg 05/09/24 17:37 Naloxone Hcl 0.4 Mg/Ml Vial IV PUSH Q5MIN PRN Sedation Olmesartan 40 mg 05/10/24 09:00 05/19/24 08:44 Olmesartan Medoxomil 20 Mg Tablet PO 40 mg QAM SOLITARIO Administration Ondansetron HCl 4 mg 05/09/24 17:05 05/18/24 12:28 Ondansetron Inj 4 Mg/2 Ml Vial IV PUSH 4 mg Q4H PRN Administration Nausea Pantoprazole Sodium 40 mg 05/10/24 09:00 05/19/24 08:44 Pantoprazole 40 Mg Tablet PO 40 mg QAM SOLITARIO Administration Potassium Chloride 10 meq 05/10/24 09:00 05/19/24 08:44 Potassium Chloride 10 Meq Er Tablet PO 10 meq DAILY SOLITARIO Administration Saccharomyces Boulardii 250 mg 05/18/24 17:00 05/19/24 11:54 Saccharomyces Boulardii 250 Mg Capsule PO 250 mg TID SOLITARIO Administration Tramadol HCl 50 mg 05/09/24 21:35 05/18/24 20:59 Tramadol Hcl (*Crx) 50 Mg Tablet PO 50 mg HS SOLITARIO Administration Tramadol HCl 25 mg 05/11/24 12:02 05/13/24 01:03 Tramadol Hcl (*Crx) 25 Mg Tablet PO 25 mg Q6H PRN Administration Pain Rated 4-6 Trazodone HCl 200 mg 05/09/24 21:35 05/18/24 20:59 Trazodone Hcl 50 Mg Tablet PO 200 mg HS SOLITARIO Administration Radiology Results: ITS Impressions Abdomen/Pelvis CT 05/13/24 13:32 IMPRESSION: 1. Atrophic kidneys. 2. Highly suggestive descending colon and proximal sigmoid colon diverticulitis. Follow-up and clinical correlation advised. Upper GI Series 05/14/24 11:08 IMPRESSION: 1. Narrowing of the distalmost esophagus with smooth mucosal margins which could be due to either spasm or fixed stricture either benign or malignant. Would recommend endoscopy for further evaluation. Abdomen X-Ray 05/18/24 17:52 IMPRESSION: NG tube in distal stomach or proximal duodenum Labs Labs: Laboratory Results - last 24 hr 05/19/24 08:28 WBC 9.1 RBC 3.30 L Hgb 10.4 L Hct 32.0 L MCV 97.0 MCH 31.5 MCHC 32.5 RDW 16.0 H Plt Count 212 MPV 9.6 Sodium 142 Potassium 3.5 Chloride 117 H Carbon Dioxide 20 L Anion Gap 5 BUN 22 H Creatinine 1.90 H Estim Creat Clear Calc 27 Estimated GFR 26 L Glucose 120 H Calcium 7.9 L Quality VTE Prophylaxis VTE prophylaxis: pharmacologic ordered
[2024-05-19 17:13] VITALS: BP 149/90; PULSE 72; RESP 18; TEMP 36.2; O2SAT 99
[2024-05-19] MEDS: traMADol HCL (*CRX) 50 MG TABLET PO (20:43)
[2024-05-19] MEDS: traZODone HCL 50 MG TABLET 200 MG PO (20:43)
[2024-05-19 20:46] VITALS: BP 144/73; PULSE 86; RESP 18; TEMP 36.8; O2SAT 99
[2024-05-20 05:41] LABS: Hematocrit 31.3 % (37.0-47.0); Hemoglobin 10.1 g/dL (12.0-15.0); Mean Corpuscular HGB Conc 32.3 g/dl (32-36); Mean Corpuscular Hemoglobin 31.5 pg (26-34); Mean Corpuscular Volume 97.5 fl (80-100); Mean Platelet Volume 10.2 fl (7.4-10.4); Platelet Count Result 193 k/mm3 (150-375); Red Blood Count 3.21 M/mm3 (4.2-5.4); Red Cell Distribution Width 15.9 % (11.5-14.5); White Blood Count 10.6 K/mm3 (4.5-10.0)
[2024-05-20 05:55] LABS: Anion Gap 3 mmol/L (4-12); Blood Urea Nitrogen 24 mg/dL (7-17); Calcium 7.5 mg/dL (8.4-10.2); Carbon Dioxide 21 mmol/L (22-30); Chloride 117 mmol/L (98-107); Estimated CRCL calculation 30 ml/min; Estimated Glomerular Filt Rate 29; Glucose 114 mg/dL (65-110); Potassium 3.6 mmol/L (3.4-5.0); Sodium 141 mmol/L (137-145)
[2024-05-20 06:00] VITALS: BP 175/93; PULSE 95; RESP 16; TEMP 36.8; O2SAT 97
[2024-05-20] MEDS: ONDANSETRON INJ 4 MG/2 ML VIAL IV PUSH (06:01)
[2024-05-20] MEDS: METOCLOPRAMIDE HCL 10 MG/10 ML SOLN UDC FEED TUBE ×3 (06:01→23:22)
[2024-05-20] MEDS: LEVOTHYROXINE SODIUM 75 MCG TABLET PO (06:01)
[2024-05-20 08:53] VITALS: PULSE 110
[2024-05-20] MEDS: AMOXICILLIN/CLAVULANATE K 500-125 MG TAB 1 TABLET PO ×2 (08:53→20:10)
[2024-05-20] MEDS: METOPROLOL TARTRATE 50 MG TAB PO ×2 (08:53→20:10)
[2024-05-20] MEDS: OLMESARTAN MEDOXOMIL 20 MG TABLET 40 MG PO (08:53)
[2024-05-20] MEDS: hydroCHLOROthiazide 12.5 MG CAPSULE PO (08:53)
[2024-05-20] MEDS: PANTOPRAZOLE 40 MG TABLET PO (08:53)
[2024-05-20] MEDS: SACCHAROMYCES BOULARDII 250 MG CAPSULE PO ×2 (08:53→18:05)
[2024-05-20] MEDS: MONTELUKAST SODIUM 10 MG TABLET PO (08:53)
[2024-05-20] MEDS: POTASSIUM CHLORIDE 10 MEQ ER TABLET PO (08:53)
[2024-05-20] MEDS: ENOXAPARIN 30 MG/0.3 ML SYRINGE SUB-Q (08:55)
--- NOTE | 2024-05-20 10:51 | PCNFU ---
Nutrition Follow-Up Complete: Inadequate oral intake related to nausea, loss of appetite as evidenced by pt report of weight loss and poor appetite Goal: Diet advancement Improve PO intake when diet is advanced Limited progress towards goal. We will continue current goal. Pt current nutrition is Jevity 1.5 at 40 ml/hr. . Nutrition recommendation: goal rate 45 ml/hr. Last recorded weight is 94.1 kg, no new weight to report. Recommend new weight. Bowel Motility: Last reported BM 05/20 Labs Reviewed: Glu 114, Cr 1.7, BUN 29 Meds Noted: Synthroid, Protonix,Lopressor Skin: WNL Additional Notes: Patient had NGT placed. Nausea reported. Tube feedings of Jevity 1.5 at 40 ml/hr. Spoke with hospitalist today recommend increase to 45 ml/hr. Patient does have diet orders for full liquids and diet supplements of Ensure Compact BID. PO intake has been minimal since admit. Plans for [place] today. Tube feedings providing an additional 1485 kcal/62 gm protein/754 ml water. Recommend increasing flush from 30 ml q 4 hours to 100 ml q 4hours. Monitoring intakes, weights, labs, plan of care every Monday and Monday.
--- NOTE | 2024-05-20 13:14 | P.PNIM_ITS ---
Progress Note: A&P Assessment and Plan (1) Esophageal stricture: Code(s): K22.2 - Esophageal obstruction Status: Acute Assessment and Plan: Patient continues to have nausea with an emesis episode - Repeat CT: Atrophic kidneys. Highly suggestive descending colon and proximal sigmoid colon diverticulitis. Follow-up and clinical correlation advised. - Upper GI: Narrowing of the distalmost esophagus with smooth mucosal margins which could be due to either spasm or fixed stricture either benign or malignant. Would recommend endoscopy for further evaluation. - GI consulted, appreciate recommendations 05/15- EGD today to assess if stricture, esophagitis, ring or even malignancy 05/16: GI notes reviewed: See EGD report. There are no mechanically obstructive lesions, and biopsies are routinely taken to rule out eosinophilic esophagitis, although this is unlikely to present at this patient's age and with dramatic weight loss and dysphagia to solids and liquids equally. Her symptoms point more toward achalasia or other non specific motility disorders. Suggest obtaining an appt in our GI clinic at discharge so we can arrange for a high resolution esophageal manometry. 05/17 very poor oral intake due to nausea and vomiting. ordered reglan yesterday- helping somewhat. orthostatic earlier when working with PT/OT- will order IV fluids- 250 ml bolus, then infuse 1 l- monitor. Waiting for GI recommendation for further treatment. 05/19- NG tube in place- pt is tolerating it well' (2) Diverticulitis: Code(s): K57.92 - Diverticulitis of intestine, part unspecified, without perforation or abscess without bleeding Status: Acute Assessment and Plan: - did not meet SIRS criteria, WBC only. - CT abdomen/pelvis: Diverticulitis at the ascending and descending colon, the latter with likely mild perforation but without evidence abscess - IV fluids: 1L bolus -> 125 mL/hr, monitor I&Os, DC - analgesics and antipyretics p.r.n. - Antibiotics: cefepime and Flagyl started on 05/09 - Diet: advanced to low fiber diet - serial abdominal exams - Monitor vital signs, I&Os, track stool output, watch for bloody stools, neuro status and patient is a fall risk - Monitor serum electrolytes and CBC - general surgery following Continue IV antibiotics If does well, can be advanced to low-fiber diet tomorrow. Plan for patient to be discharged low-fiber diet for 2 weeks. There is no colonoscopy records. Unless she has had one at another facility, colonoscopy would be advisable in 4-6 weeks. - Repeat CT: Atrophic kidneys. Highly suggestive descending colon and proximal sigmoid colon diverticulitis. Follow-up and clinical correlation advised. - Upper GI: Narrowing of the distalmost esophagus with smooth mucosal margins which could be due to either spasm or fixed stricture either benign or malignant. Would recommend endoscopy for further evaluation. - surgery signed off 0will finish augmentin (3) CKD (chronic kidney disease): Qualifiers: Chronic kidney disease stage: unspecified stage Qualified Code(s): N18.9 - Chronic kidney disease, unspecified Code(s): N18.9 - Chronic kidney disease, unspecified Status: Chronic Assessment and Plan: BUN/Cr 35/2.7 on admission, baseline appears to be 1.4-2.2 - BUN/Cr 20/2.2 on am labs - renally dose medications - avoid nephrotoxic medications - trend renal function - trend electrolytes, correct as needed (4) Hypertension: Qualifiers: Hypertension type: primary hypertension Qualified Code(s): I10 - Essential (primary) hypertension Code(s): I10 - Essential (primary) hypertension Status: Chronic Assessment and Plan: - chronic - home medications: Metoprolol 50 mg b.i.d., olmesartan-hydrochlorothiazide 40- 12.5 mg daily - continue metoprolol 50 mg BID and olmesartan 40 mg daily, HCTZ 12.5 mg daily on hold as patient has been borderline hypotensive - monitor (5) Hypothyroidism: Code(s): E03.9 - Hypothyroidism, unspecified Status: Acute Assessment and Plan: Chronic, continue home medication - Synthroid 75 mcg daily (6) Dizziness: Code(s): R42 - Dizziness and giddiness Status: Acute Assessment and Plan: Patient endorsing intermittent dizziness. She states that this has been ongoing for months. Likely secondary to vertigo. - Vestibular therapy ordered - Meclizine ordered PRN 05/17- orthostatic when working with PT/OT-will give 250 ml bolus, then the rest of 1 l. monitor Plan GI Prophylaxis: Not currently indicated DVT Prophylaxis: SCDs Lines: Peripheral Code Status: Full code Time Spent With Patient Time with patient: Greater than 35 minutes Subjective Date/time seen: 12/23/24 13:14 Interval history: doing well with tube feeding- reports no nausea. Very weak- PT/OT worked with her today- recommendations are SNF possibly. Review of Systems Review of Systems: All systems reviewed & are unremarkable except as noted in HPI and below Gastrointestinal: Gastrointestinal: Reports nausea and Reports vomiting Exam Narrative: General: female in no acute respiratory distress who is nontoxic appearing, sitting up in chair. HEENT: Normocephalic. Atraumatic. Extraocular movement intact. Sclera clear and anicteric. No facial asymmetry. Chest: Lungs are clear to auscultation bilaterally. No wheezes or crackles. CV: Heart was regular rate and rhythm. S1-S2. No murmurs, gallops, or rubs. Abd: Abdomen was soft. Nontender. Nondistended. Positive bowel sounds. No organomegaly or masses. Neuro: Patient is alert. Speech is clear. Const: General: comfortable and no acute distress Other: , female, obese body habitus, nontoxic appearance HENMT: Face/Nose/Sinus: Normal nares present Mouth: Yes moist mucous membranes Eyes: General: appearance normal, both eyes and all related structures Sclera: sclerae normal Pupils: Equal, round and reactive pupils present EOM: EOMs intact bilaterally Resp: Effort & Inspection: normal respiratory effort Auscultation: clear to auscultation bilaterally Cardio: Rate: regular rate Rhythm: regular rhythm Other: S1-S2 present without murmur, rub, ectopy GI: Other: Abdomen rounded, soft, nontender. Normoactive bowel sounds in all quadrants. Skin: General skin exam: normal color and no rashes or lesions noted Wounds: no wounds Neuro: Cranial nerves: Yes Equal, round and reactive pupils present Speech: normal speech Motor exam (neuro): 5/5 motor strength present throughout Sensory Exam: normal sensation Other: A&O x4 Extrem: General: normal to inspection Psych: Mental Status: mental status grossly normal Affect: normal affect Other: Good insight and judgment, very pleasant Objective Data Vital Signs Vital Signs: Vital Signs - 24 hr 05/19/24 17:13 05/19/24 20:00 05/19/24 20:46 Temperature 97.1 F L 98.2 F Pulse Rate 72 86 Respiratory Rate 18 18 Blood Pressure 149/90 H 144/73 H Pulse Oximetry 99 99 Oxygen Delivery Room Air 05/20/24 06:00 05/20/24 08:00 05/20/24 08:53 Temperature 98.2 F Pulse Rate 95 110 H Respiratory Rate 16 Blood Pressure 175/93 H Pulse Oximetry 97 Oxygen Delivery Room Air Intake/Output Intake/Output: Intake & Output 05/17/24 05/18/24 05/19/24 05/20/24 23:59 23:59 23:59 23:59 Intake Total 1690 600 630 500 Output Total 800 900 Balance 890 -300 630 500 Meds/Results Medications: Active Medications Generic Name Dose Route Start Last Admin Trade Name Freq PRN Reason Stop Dose Admin Acetaminophen 650 mg 05/09/24 17:35 Acetaminophen 325 Mg Tablet PO Q6H PRN Mild Pain (1-3) or Fever Amoxicillin/Clavulanate Potassium 1 tablet 05/16/24 21:00 05/20/24 08:53 Amoxicillin/Clavulanate K 500-125 Mg Tab PO 1 tablet Q12HR SOLITARIO Administration Enoxaparin Sodium 30 mg 05/11/24 09:00 05/20/24 08:55 Enoxaparin 30 Mg/0.3 Ml Syringe SUB-Q 30 mg DAILY SOLITARIO Administration Hydrochlorothiazide 12.5 mg 05/10/24 09:00 05/20/24 08:53 Hydrochlorothiazide 12.5 Mg Capsule PO 12.5 mg QAM SOLITARIO Administration Levothyroxine Sodium 75 mcg 05/10/24 06:30 05/20/24 06:01 Levothyroxine Sodium 75 Mcg Tablet PO 75 mcg DAILY@0630 SOLITARIO Administration Meclizine HCl 12.5 mg 05/13/24 15:29 05/14/24 12:01 Meclizine Hcl 12.5 Mg Tablet PO 12.5 mg TID PRN Administration dizziness Metoclopramide HCl 10 mg 05/18/24 18:00 05/20/24 06:01 Metoclopramide Hcl 10 Mg/10 Ml Soln Udc FEED TUBE 10 mg Q6HR SOLITARIO Administration Metoprolol Tartrate 50 mg 05/10/24 09:00 05/20/24 08:53 Metoprolol Tartrate 50 Mg Tab PO 50 mg Q12HR SOLITARIO Administration Miscellaneous Information 1 each 05/18/24 00:01 Alprazolam Will 05/19/24 If Not Renewed XX 06/17/24 00:00 CLARIFY SOLITARIO Miscellaneous Information 0 each 05/18/24 00:01 Tramadol Renew If Still Needed Or Will Auto D/C XX 06/17/24 00:00 CLARIFY SOLITARIO Montelukast Sodium 10 mg 05/10/24 09:00 05/20/24 08:53 Montelukast Sodium 10 Mg Tablet PO 10 mg DAILY SOLITARIO Administration Naloxone HCl 0.1 mg 05/09/24 17:37 Naloxone Hcl 0.4 Mg/Ml Vial IV PUSH Q5MIN PRN Sedation Olmesartan 40 mg 05/10/24 09:00 05/20/24 08:53 Olmesartan Medoxomil 20 Mg Tablet PO 40 mg QAM SOLITARIO Administration Ondansetron HCl 4 mg 05/09/24 17:05 05/20/24 06:01 Ondansetron Inj 4 Mg/2 Ml Vial IV PUSH 4 mg Q4H PRN Administration Nausea Pantoprazole Sodium 40 mg 05/10/24 09:00 05/20/24 08:53 Pantoprazole 40 Mg Tablet PO 40 mg QAM SOLITARIO Administration Potassium Chloride 10 meq 05/10/24 09:00 05/20/24 08:53 Potassium Chloride 10 Meq Er Tablet PO 10 meq DAILY SOLITARIO Administration Saccharomyces Boulardii 250 mg 05/18/24 17:00 05/20/24 08:53 Saccharomyces Boulardii 250 Mg Capsule PO 250 mg TID SOLITARIO Administration Tramadol HCl 25 mg 05/11/24 12:02 05/13/24 01:03 Tramadol Hcl (*Crx) 25 Mg Tablet PO 25 mg Q6H PRN Administration Pain Rated 4-6 Trazodone HCl 200 mg 05/09/24 21:35 05/19/24 20:43 Trazodone Hcl 50 Mg Tablet PO 200 mg HS SOLITARIO Administration Radiology Results: ITS Impressions Abdomen/Pelvis CT 05/13/24 13:32 IMPRESSION: 1. Atrophic kidneys. 2. Highly suggestive descending colon and proximal sigmoid colon diverti culitis. Follow-up and clinical correlation advised. Upper GI Series 05/14/24 11:08 IMPRESSION: 1. Narrowing of the distalmost esophagus with smooth mucosal margins which could be due to either spasm or fixed stricture either benign or malignant. Would recommend endoscopy for further evaluation. Abdomen X-Ray 05/18/24 17:52 IMPRESSION: NG tube in distal stomach or proximal duodenum Labs Labs: Laboratory Results - last 24 hr 05/20/24 05:22 WBC 10.6 H RBC 3.21 L Hgb 10.1 L Hct 31.3 L MCV 97.5 MCH 31.5 MCHC 32.3 RDW 15.9 H Plt Count 193 MPV 10.2 Sodium 141 Potassium 3.6 Chloride 117 H Carbon Dioxide 21 L Anion Gap 3 L BUN 24 H Creatinine 1.70 H Estim Creat Clear Calc 30 Estimated GFR 29 L Glucose 114 H Calcium 7.5 L Quality VTE Prophylaxis VTE prophylaxis: pharmacologic ordered
[2024-05-20 14:00] VITALS: BP 132/65; PULSE 97; RESP 18; TEMP 36.1; O2SAT 99
[2024-05-20] MEDS: traZODone HCL 50 MG TABLET 200 MG PO (20:11)
[2024-05-20 20:55] VITALS: BP 138/74; PULSE 115; RESP 16; TEMP 36.9; O2SAT 98
[2024-05-21] MEDS: LEVOTHYROXINE SODIUM 75 MCG TABLET PO (05:33)
[2024-05-21] MEDS: METOCLOPRAMIDE HCL 10 MG/10 ML SOLN UDC FEED TUBE (05:33)
[2024-05-21 05:50] LABS: Hematocrit 28.8 % (37.0-47.0); Hemoglobin 9.3 g/dL (12.0-15.0); Mean Corpuscular HGB Conc 32.3 g/dl (32-36); Mean Corpuscular Hemoglobin 31.2 pg (26-34); Mean Corpuscular Volume 96.6 fl (80-100); Mean Platelet Volume 10.3 fl (7.4-10.4); Platelet Count Result 155 k/mm3 (150-375); Red Blood Count 2.98 M/mm3 (4.2-5.4); Red Cell Distribution Width 15.9 % (11.5-14.5); White Blood Count 7.2 K/mm3 (4.5-10.0)
[2024-05-21 06:00] VITALS: BP 139/71; PULSE 97; RESP 18; TEMP 36.3; O2SAT 100
[2024-05-21 06:17] LABS: Anion Gap 0 mmol/L (4-12); Blood Urea Nitrogen 25 mg/dL (7-17); Calcium 7.4 mg/dL (8.4-10.2); Carbon Dioxide 24 mmol/L (22-30); Chloride 115 mmol/L (98-107); Estimated CRCL calculation 34 ml/min; Estimated Glomerular Filt Rate 34; Glucose 100 mg/dL (65-110); Potassium 3.7 mmol/L (3.4-5.0); Sodium 139 mmol/L (137-145)
--- NOTE | 2024-05-21 07:53 | PCOTNOTE ---
The patient treatment was not able to be completed. Patient is sleeping. Will plan to continue treatment per plan of care.
[2024-05-21 10:31] VITALS: PULSE 116
[2024-05-21] MEDS: POTASSIUM CHLORIDE 10 MEQ ER TABLET PO (10:31)
[2024-05-21] MEDS: MONTELUKAST SODIUM 10 MG TABLET PO (10:31)
[2024-05-21] MEDS: AMOXICILLIN/CLAVULANATE K 500-125 MG TAB 1 TABLET PO ×2 (10:31→20:23)
[2024-05-21] MEDS: PANTOPRAZOLE 40 MG TABLET PO (10:31)
[2024-05-21] MEDS: METOPROLOL TARTRATE 50 MG TAB PO ×2 (10:31→20:23)
[2024-05-21] MEDS: OLMESARTAN MEDOXOMIL 20 MG TABLET 40 MG PO (10:31)
[2024-05-21] MEDS: hydroCHLOROthiazide 12.5 MG CAPSULE PO (10:31)
[2024-05-21] MEDS: SACCHAROMYCES BOULARDII 250 MG CAPSULE PO ×2 (10:31→17:30)
[2024-05-21] MEDS: ENOXAPARIN 40 MG/0.4 ML SYRINGE SUB-Q (10:31)
--- NOTE | 2024-05-21 11:23 | PCNFU ---
Nutrition Follow-Up Complete: Inadequate oral intake related to nausea, loss of appetite as evidenced by pt report of weight loss and poor appetite goal: Diet advancement Improve PO intake when diet is advanced Patient is progressing towards goal. We will continue current goal. Pt current nutrition is Full liquid with Ensure Compact TID. Last recorded weight is 94.1 kg, no new weight to report. Bowel Motility: +Bm reported 05/21 Labs Reviewed: Cr 1.5, GFR 34, BUN 25, Hct 28.8, Hgb 9.3 Meds Noted: Lopressor,Synthroid, Lovenox, Singular. Skin: WNL Additional Notes: Spoke with hospitalist today. Plans to pull NGT and discontinue tube feedings. Patient is drinking liquids. Diet supplements are providing an additional 220 kcal and 9 gm protein. Agree with diet orders. Monitoring intakes, weights, labs, plan of care Follow up in 5 days
--- NOTE | 2024-05-21 11:50 | PM.IMPN ---
Progress Note: A&P Assessment and Plan (1) Esophageal stricture: Code(s): K22.2 - Esophageal obstruction Status: Acute Assessment and Plan: Patient continues to have nausea with an emesis episode - Repeat CT: Atrophic kidneys. Highly suggestive descending colon and proximal sigmoid colon diverticulitis. Follow-up and clinical correlation advised. - Upper GI: Narrowing of the distalmost esophagus with smooth mucosal margins which could be due to either spasm or fixed stricture either benign or malignant. Would recommend endoscopy for further evaluation. - GI consulted, appreciate recommendations 05/15- EGD today to assess if stricture, esophagitis, ring or even malignancy 05/16: GI notes reviewed: See EGD report. There are no mechanically obstructive lesions, and biopsies are routinely taken to rule out eosinophilic esophagitis, although this is unlikely to present at this patient's age and with dramatic weight loss and dysphagia to solids and liquids equally. Her symptoms point more toward achalasia or other non specific motility disorders. Suggest obtaining an appt in our GI clinic at discharge so we can arrange for a high resolution esophageal manometry. 05/17 very poor oral intake due to nausea and vomiting. ordered reglan yesterday- helping somewhat. orthostatic earlier when working with PT/OT- will order IV fluids- 250 ml bolus, then infuse 1 l- monitor. Waiting for GI recommendation for further treatment. 05/19- NG tube in place- pt is tolerating it well' 05/20- toelratign tube feeidng well. 05/21- NG out- pending discharge to [facility]. no n/v (2) Diverticulitis: Code(s): K57.92 - Diverticulitis of intestine, part unspecified, without perforation or abscess without bleeding Status: Acute Assessment and Plan: - did not meet SIRS criteria, WBC only. - CT abdomen/pelvis: Diverticulitis at the ascending and descending colon, the latter with likely mild perforation but without evidence abscess - IV fluids: 1L bolus -> 125 mL/hr, monitor I&Os, DC - analgesics and antipyretics p.r.n. - Antibiotics: cefepime and Flagyl started on 05/09 - Diet: advanced to low fiber diet - serial abdominal exams - Monitor vital signs, I&Os, track stool output, watch for bloody stools, neuro status and patient is a fall risk - Monitor serum electrolytes and CBC - general surgery following Continue IV antibiotics If does well, can be advanced to low-fiber diet tomorrow. Plan for patient to be discharged low-fiber diet for 2 weeks. There is no colonoscopy records. Unless she has had one at another facility, colonoscopy would be advisable in 4-6 weeks. - Repeat CT: Atrophic kidneys. Highly suggestive descending colon and proximal sigmoid colon diverticulitis. Follow-up and clinical correlation advised. - Upper GI: Narrowing of the distalmost esophagus with smooth mucosal margins which could be due to either spasm or fixed stricture either benign or malignant. Would recommend endoscopy for further evaluation. - surgery signed off 0will finish augmentin (3) CKD (chronic kidney disease): Qualifiers: Chronic kidney disease stage: unspecified stage Qualified Code(s): N18.9 - Chronic kidney disease, unspecified Code(s): N18.9 - Chronic kidney disease, unspecified Status: Chronic Assessment and Plan: BUN/Cr 35/2.7 on admission, baseline appears to be 1.4-2.2 - BUN/Cr 20/2.2 on am labs - renally dose medications - avoid nephrotoxic medications - trend renal function - trend electrolytes, correct as needed (4) Hypertension: Qualifiers: Hypertension type: primary hypertension Qualified Code(s): I10 - Essential (primary) hypertension Code(s): I10 - Essential (primary) hypertension Status: Chronic Assessment and Plan: - chronic - home medications: Metoprolol 50 mg b.i.d., olmesartan-hydrochlorothiazide 40-12.5 mg daily - continue metoprolol 50 mg BID and olmesartan 40 mg daily, HCTZ 12.5 mg daily on hold as patient has been borderline hypotensive - monitor (5) Hypothyroidism: Code(s): E03.9 - Hypothyroidism, unspecified Status: Acute Assessment and Plan: Chronic, continue home medication - Synthroid 75 mcg daily (6) Dizziness: Code(s): R42 - Dizziness and giddiness Status: Acute Assessment and Plan: Patient endorsing intermittent dizziness. She states that this has been ongoing for months. Likely secondary to vertigo. - Vestibular therapy ordered - Meclizine ordered PRN 12/20- orthostatic when working with PT/OT-will give 250 ml bolus, then the rest of 1 l. monitor Plan GI Prophylaxis: Not currently indicated DVT Prophylaxis: SCDs Lines: Peripheral Code Status: Full code Time Spent With Patient Time with patient: Greater than 35 minutes Subjective Date/time seen: 05/21/24 11:50 Interval history: NG out today. NO nausea/vomiting so far. waiting for insurance auth to go to [facility]. Review of Systems Review of Systems: All systems reviewed & are unremarkable except as noted in HPI and below Cardiovascular: Cardiovascular: Denies chest pain Respiratory: Respiratory: Denies chest congestion Gastrointestinal: Gastrointestinal: Denies abdominal pain, Denies nausea and Denies vomiting Exam Narrative: General: female in no acute respiratory distress who is nontoxic appearing, sitting up in chair. HEENT: Normocephalic. Atraumatic. Extraocular movement intact. Sclera clear and anicteric. No facial asymmetry. Chest: Lungs are clear to auscultation bilaterally. No wheezes or crackles. CV: Heart was regular rate and rhythm. S1-S2. No murmurs, gallops, or rubs. Abd: Abdomen was soft. Nontender. Nondistended. Positive bowel sounds. No organomegaly or masses. Neuro: Patient is alert. Speech is clear. Const: General: comfortable and no acute distress Other: , female, obese body habitus, nontoxic appearance HENMT: Face/Nose/Sinus: Normal nares present Mouth: Yes moist mucous membranes Eyes: General: appearance normal, both eyes and all related structures Sclera: sclerae normal Pupils: Equal, round and reactive pupils present EOM: EOMs intact bilaterally Resp: Effort & Inspection: normal respiratory effort Auscultation: clear to auscultation bilaterally Cardio: Rate: regular rate Rhythm: regular rhythm Other: S1-S2 present without murmur, rub, ectopy GI: Other: Abdomen rounded, soft, nontender. Normoactive bowel sounds in all quadrants. Skin: General skin exam: normal color and no rashes or lesions noted Wounds: no wounds Neuro: Cranial nerves: Yes Equal, round and reactive pupils present Speech: normal speech Motor exam (neuro): 5/5 motor strength present throughout Sensory Exam: normal sensation Other: A&O x4 Extrem: General: normal to inspection Psych: Mental Status: mental status grossly normal Affect: normal affect Other: Good insight and judgment, very pleasant Objective Data Vital Signs Vital Signs: Vital Signs - 24 hr 05/20/24 14:00 05/20/24 19:49 05/20/24 20:55 Temperature 97.0 F L 98.4 F Pulse Rate 97 115 H Respiratory Rate 18 16 Blood Pressure 132/65 138/74 Pulse Oximetry 99 98 Oxygen Delivery Room Air 05/21/24 06:00 05/21/24 10:30 05/21/24 10:31 Temperature 97.3 F L Pulse Rate 97 116 H Respiratory Rate 18 Blood Pressure 139/71 Pulse Oximetry 100 Oxygen Delivery Room Air Intake/Output Intake/Output: Intake & Output 05/18/24 05/19/24 05/20/24 05/21/24 23:59 23:59 23:59 23:59 Intake Total 2600 630 660 860 Output Total 900 Balance 1700 630 660 860 Meds/Results Medications: Active Medications Generic Name Dose Route Start Last Admin Trade Name Freq PRN Reason Stop Dose Admin Acetaminophen 650 mg 05/09/24 17:35 Acetaminophen 325 Mg Tablet PO Q6H PRN Mild Pain (1-3) or Fever Alprazolam 1 mg 05/20/24 13:37 Alprazolam (*Crx) 0.5 Mg Tablet PO QID PRN anxiety Amoxicillin/Clavulanate Potassium 1 tablet 05/16/24 21:00 05/21/24 10:31 Amoxicillin/Clavulanate K 500-125 Mg Tab PO 1 tablet Q12HR SOLITARIO Administration Enoxaparin Sodium 40 mg 05/21/24 09:00 05/21/24 10:31 Enoxaparin 40 Mg/0.4 Ml Syringe SUB-Q 40 mg DAILY SOLITARIO Administration Hydrochlorothiazide 12.5 mg 05/10/24 09:00 05/21/24 10:31 Hydrochlorothiazide 12.5 Mg Capsule PO 12.5 mg QAM SOLITARIO Administration Levothyroxine Sodium 75 mcg 05/10/24 06:30 05/21/24 05:33 Levothyroxine Sodium 75 Mcg Tablet PO 75 mcg DAILY@0630 SOLITARIO Administration Meclizine HCl 12.5 mg 05/13/24 15:29 05/14/24 12:01 Meclizine Hcl 12.5 Mg Tablet PO 12.5 mg TID PRN Administration dizziness Metoclopramide HCl 10 mg 05/18/24 18:00 05/21/24 05:33 Metoclopramide Hcl 10 Mg/10 Ml Soln Udc FEED TUBE 10 mg Q6HR SOLITARIO Administration Metoprolol Tartrate 50 mg 05/10/24 09:00 05/21/24 10:31 Metoprolol Tartrate 50 Mg Tab PO 50 mg Q12HR SOLITARIO Administration Montelukast Sodium 10 mg 05/10/24 09:00 05/21/24 10:31 Montelukast Sodium 10 Mg Tablet PO 10 mg DAILY SOLITARIO Administration Naloxone HCl 0.1 mg 05/09/24 17:37 Naloxone Hcl 0.4 Mg/Ml Vial IV PUSH Q5MIN PRN Sedation Olmesartan 40 mg 05/10/24 09:00 05/21/24 10:31 Olmesartan Medoxomil 20 Mg Tablet PO 40 mg QAM SOLITARIO Administration Ondansetron HCl 4 mg 05/09/24 17:05 05/20/24 06:01 Ondansetron Inj 4 Mg/2 Ml Vial IV PUSH 4 mg Q4H PRN Administration Nausea Pantoprazole Sodium 40 mg 05/10/24 09:00 05/21/24 10:31 Pantoprazole 40 Mg Tablet PO 40 mg QAM SOLITARIO Administration Potassium Chloride 10 meq 05/10/24 09:00 05/21/24 10:31 Potassium Chloride 10 Meq Er Tablet PO 10 meq DAILY SOLITARIO Administration Saccharomyces Boulardii 250 mg 05/18/24 17:00 05/21/24 10:31 Saccharomyces Boulardii 250 Mg Capsule PO 250 mg TID SOLITARIO Administration Tramadol HCl 25 mg 05/11/24 12:02 05/13/24 01:03 Tramadol Hcl (*Crx) 25 Mg Tablet PO 25 mg Q6H PRN Administration Pain Rated 4-6 Trazodone HCl 200 mg 05/09/24 21:35 05/20/24 20:11 Trazodone Hcl 50 Mg Tablet PO 200 mg HS SOLITARIO Administration Radiology Results: ITS Impressions Abdomen/Pelvis CT 05/13/24 13:32 IMPRESSION: 1. Atrophic kidneys. 2. Highly suggestive descending colon and proximal sigmoid colon diverticulitis. Follow-up and clinical correlation advised. Upper GI Series 05/14/24 11:08 IMPRESSION: 1. Narrowing of the distalmost esophagus with smooth mucosal margins which could be due to either spasm or fixed stricture either benign or malignant. Would recommend endoscopy for further evaluation. Abdomen X-Ray 05/18/24 17:52 IMPRESSION: NG tube in distal stomach or proximal duodenum Labs Labs: Laboratory Results - last 24 hr 05/21/24 05:37 WBC 7.2 RBC 2.98 L Hgb 9.3 L Hct 28.8 L MCV 96.6 MCH 31.2 MCHC 32.3 RDW 15.9 H Plt Count 155 MPV 10.3 Sodium 139 Potassium 3.7 Chloride 115 H Carbon Dioxide 24 Anion Gap 0 L BUN 25 H Creatinine 1.50 H Estim Creat Clear Calc 34 Estimated GFR 34 L Glucose 100 Calcium 7.4 L Quality VTE Prophylaxis VTE prophylaxis: pharmacologic ordered
[2024-05-21 14:00] VITALS: BP 122/60; PULSE 88; RESP 18; TEMP 36.3; O2SAT 99
--- NOTE | 2024-05-21 16:25 | PC.NURSE ---
RN spoke with Tracee from [facility]. [phone]. Bed is available and RN updated [facility] worker [facility].
[2024-05-21] MEDS: traZODone HCL 50 MG TABLET 200 MG PO (20:23)
[2024-05-21 21:13] VITALS: BP 109/55; PULSE 91; RESP 16; TEMP 36.9; O2SAT 99
[2024-05-22] MEDS: LEVOTHYROXINE SODIUM 75 MCG TABLET PO (05:32)
[2024-05-22] MEDS: traMADol HCL (*CRX) 25 MG TABLET PO (05:32)
[2024-05-22 05:53] LABS: Hematocrit 28.7 % (37.0-47.0); Hemoglobin 9.3 g/dL (12.0-15.0); Mean Corpuscular HGB Conc 32.4 g/dl (32-36); Mean Corpuscular Hemoglobin 31.2 pg (26-34); Mean Corpuscular Volume 96.3 fl (80-100); Mean Platelet Volume 11.9 fl (7.4-10.4); Platelet Count Result 146 k/mm3 (150-375); Red Blood Count 2.98 M/mm3 (4.2-5.4); Red Cell Distribution Width 16.1 % (11.5-14.5); White Blood Count 8.1 K/mm3 (4.5-10.0)
[2024-05-22 06:00] VITALS: BP 145/80; PULSE 82; RESP 18; TEMP 36.9; O2SAT 96
[2024-05-22 06:16] LABS: Anion Gap 3 mmol/L (4-12); Blood Urea Nitrogen 27 mg/dL (7-17); Calcium 7.6 mg/dL (8.4-10.2); Carbon Dioxide 22 mmol/L (22-30); Chloride 114 mmol/L (98-107); Estimated CRCL calculation 30 ml/min; Estimated Glomerular Filt Rate 29; Glucose 87 mg/dL (65-110); Potassium 3.2 mmol/L (3.4-5.0); Sodium 139 mmol/L (137-145)
[2024-05-22 09:05] VITALS: PULSE 82
[2024-05-22] MEDS: hydroCHLOROthiazide 12.5 MG CAPSULE PO (09:05)
[2024-05-22] MEDS: OLMESARTAN MEDOXOMIL 20 MG TABLET 40 MG PO (09:05)
[2024-05-22] MEDS: METOPROLOL TARTRATE 50 MG TAB PO (09:05)
[2024-05-22] MEDS: MONTELUKAST SODIUM 10 MG TABLET PO (09:05)
[2024-05-22] MEDS: POTASSIUM CHLORIDE 10 MEQ ER TABLET PO (09:05)
[2024-05-22] MEDS: AMOXICILLIN/CLAVULANATE K 500-125 MG TAB 1 TABLET PO (09:05)
[2024-05-22] MEDS: PANTOPRAZOLE 40 MG TABLET PO (09:06)
[2024-05-22] MEDS: SACCHAROMYCES BOULARDII 250 MG CAPSULE PO ×2 (09:06→12:53)
[2024-05-22] MEDS: ENOXAPARIN 40 MG/0.4 ML SYRINGE SUB-Q (09:06)
--- NOTE | 2024-05-22 10:11 | P.PNIM_ITS ---
Progress Note: A&P Assessment and Plan (1) Esophageal stricture: Code(s): K22.2 - Esophageal obstruction Status: Acute Assessment and Plan: Patient continues to have nausea with an emesis episode - Repeat CT: Atrophic kidneys. Highly suggestive descending colon and proximal sigmoid colon diverticulitis. Follow-up and clinical correlation advised. - Upper GI: Narrowing of the distalmost esophagus with smooth mucosal margins which could be due to either spasm or fixed stricture either benign or malignant. Would recommend endoscopy for further evaluation. - GI consulted, appreciate recommendations EGD obtained on 05/15 to assess if stricture, esophagitis, ring or even malignancy See EGD report. There are no mechanically obstructive lesions, and biopsies are routinely taken to rule out eosinophilic esophagitis, although this is unlikely to present at this patient's age and with dramatic weight loss and dysphagia to solids and liquids equally. Her symptoms point more toward achalasia or other non specific motility disorders. Suggest obtaining an appt in our GI clinic at discharge so we can arrange for a high resolution esophageal manometry. 05/19: NG tube placed for poor oral intake 2/2 N/V. Removed on 05/21. (2) Diverticulitis: Code(s): K57.92 - Diverticulitis of intestine, part unspecified, without perforation or abscess without bleeding Status: Acute Assessment and Plan: - did not meet SIRS criteria, WBC only. - CT abdomen/pelvis: Diverticulitis at the ascending and descending colon, the latter with likely mild perforation but without evidence abscess - IV fluids: 1L bolus -> 125 mL/hr, monitor I&Os, DC - analgesics and antipyretics p.r.n. - Antibiotics: cefepime and Flagyl started on 05/09, will continue Augmentin to complete the course - Diet: advanced to low fiber diet - serial abdominal exams - Monitor vital signs, I&Os, track stool output, watch for bloody stools, neuro status and patient is a fall risk - Monitor serum electrolytes and CBC - general surgery following Continue IV antibiotics If does well, can be advanced to low-fiber diet tomorrow. Plan for patient to be discharged low-fiber diet for 2 weeks. There is no colonoscopy records. Unless she has had one at another facility, colonoscopy would be advisable in 4-6 weeks. - Repeat CT: Atrophic kidneys. Highly suggestive descending colon and proximal sigmoid colon diverticulitis. Follow-up and clinical correlation advised. - Upper GI: Narrowing of the distalmost esophagus with smooth mucosal margins which could be due to either spasm or fixed stricture either benign or malignant. Would recommend endoscopy for further evaluation. - surgery signed off (3) CKD (chronic kidney disease): Qualifiers: Chronic kidney disease stage: unspecified stage Qualified Code(s): N18.9 - Chronic kidney disease, unspecified Code(s): N18.9 - Chronic kidney disease, unspecified Status: Chronic Assessment and Plan: BUN/Cr 35/2.7 on admission, baseline appears to be 1.4-2.2 - BUN/Cr 27/1.70 on am labs - renally dose medications - avoid nephrotoxic medications - trend renal function - trend electrolytes, correct as needed (4) Dizziness: Code(s): R42 - Dizziness and giddiness Status: Acute Assessment and Plan: Patient endorsing intermittent dizziness. She states that this has been ongoing for months. Likely secondary to vertigo. - Vestibular therapy ordered - Meclizine ordered PRN 05/17- orthostatic when working with PT/OT-will give 250 ml bolus, then the rest of 1 L. (5) Hypertension: Qualifiers: Hypertension type: primary hypertension Qualified Code(s): I10 - Essential (primary) hypertension Code(s): I10 - Essential (primary) hypertension Status: Chronic Assessment and Plan: - chronic - home medications: Metoprolol 50 mg b.i.d., olmesartan-hydrochlorothiazide 40- 12.5 mg daily - continue metoprolol 50 mg BID and olmesartan 40 mg daily and HCTZ 12.5 mg daily - monitor (6) Hypothyroidism: Code(s): E03.9 - Hypothyroidism, unspecified Status: Acute Assessment and Plan: Chronic, continue home medication - Synthroid 75 mcg daily Plan GI Prophylaxis: Not currently indicated DVT Prophylaxis: SCDs Lines: Peripheral Code Status: Full code Subjective Date/time seen: 05/22/24 10:11 Interval history: 73 y/o F presents here with abdominal pain with PMH of hypertension, SRIRAM intolerant of CPAP, agoraphobia, hypothyroidism, COPD, gout, and anxiety. Review of Systems Review of Systems: All systems reviewed & are unremarkable except as noted in HPI and below Exam Narrative: AF General: female in no acute respiratory distress who is nontoxic appearing, sitting up in bed. HEENT: Normocephalic. Atraumatic. Extraocular movement intact. Sclera clear and anicteric. No facial asymmetry. Chest: Lungs are clear to auscultation bilaterally. No wheezes or crackles. CV: Heart was regular rate and rhythm. S1-S2. No murmurs, gallops, or rubs. Abd: Abdomen was soft. Nontender. Nondistended. Positive bowel sounds. No organomegaly or masses. Neuro: Patient is alert. Speech is clear. Objective Data Vital Signs Vital Signs: Vital Signs - 24 hr 05/21/24 10:30 05/21/24 10:31 05/21/24 14:00 Temperature 97.4 F L Pulse Rate 116 H 88 Respiratory Rate 18 Blood Pressure 122/60 Pulse Oximetry 99 Oxygen Delivery Room Air 05/21/24 20:00 05/21/24 21:13 05/22/24 06:00 Temperature 98.4 F 98.4 F Pulse Rate 91 82 Respiratory Rate 16 18 Blood Pressure 109/55 L 145/80 H Pulse Oximetry 99 96 Oxygen Delivery Room Air 05/22/24 09:05 05/22/24 09:10 Temperature Pulse Rate 82 Respiratory Rate Blood Pressure Pulse Oximetry Oxygen Delivery Room Air Intake/Output Intake/Output: Intake & Output 05/19/24 05/20/24 05/21/24 05/22/24 23:59 23:59 23:59 23:59 Intake Total 364 954 4676 480 Balance 946 823 5975 480 Meds/Results Medications: Active Medications Generic Name Dose Route Start Last Admin Trade Name Freq PRN Reason Stop Dose Admin Acetaminophen 650 mg 05/09/24 17:35 Acetaminophen 325 Mg Tablet PO Q6H PRN Mild Pain (1-3) or Fever Alprazolam 1 mg 05/20/24 13:37 Alprazolam (*Crx) 0.5 Mg Tablet PO QID PRN anxiety Amoxicillin/Clavulanate Potassium 1 tablet 05/16/24 21:00 05/22/24 09:05 Amoxicillin/Clavulanate K 500-125 Mg Tab PO 1 tablet Q12HR SOLITARIO Administration Enoxaparin Sodium 40 mg 05/21/24 09:00 05/22/24 09:06 Enoxaparin 40 Mg/0.4 Ml Syringe SUB-Q 40 mg DAILY SOLITARIO Administration Hydrochlorothiazide 12.5 mg 05/10/24 09:00 05/22/24 09:05 Hydrochlorothiazide 12.5 Mg Capsule PO 12.5 mg QAM SOLITARIO Administration Levothyroxine Sodium 75 mcg 05/10/24 06:30 05/22/24 05:32 Levothyroxine Sodium 75 Mcg Tablet PO 75 mcg DAILY@0630 SOLITARIO Administration Meclizine HCl 12.5 mg 05/13/24 15:29 05/14/24 12:01 Meclizine Hcl 12.5 Mg Tablet PO 12.5 mg TID PRN Administration dizziness Metoclopramide HCl 10 mg 05/18/24 18:00 05/22/24 05:25 Metoclopramide Hcl 10 Mg/10 Ml Soln Udc FEED TUBE Not Given Q6HR SOLITARIO Metoprolol Tartrate 50 mg 05/10/24 09:00 05/22/24 09:05 Metoprolol Tartrate 50 Mg Tab PO 50 mg Q12HR SOLITARIO Administration Montelukast Sodium 10 mg 05/10/24 09:00 05/22/24 09:05 Montelukast Sodium 10 Mg Tablet PO 10 mg DAILY SOLITARIO Administration Naloxone HCl 0.1 mg 05/09/24 17:37 Naloxone Hcl 0.4 Mg/Ml Vial IV PUSH Q5MIN PRN Sedation Olmesartan 40 mg 05/10/24 09:00 05/22/24 09:05 Olmesartan Medoxomil 20 Mg Tablet PO 40 mg QAM SOLITARIO Administration Ondansetron HCl 4 mg 05/09/24 17:05 05/20/24 06:01 Ondansetron Inj 4 Mg/2 Ml Vial IV PUSH 4 mg Q4H PRN Administration Nausea Pantoprazole Sodium 40 mg 05/10/24 09:00 05/22/24 09:06 Pantoprazole 40 Mg Tablet PO 40 mg QAM SOLITARIO Administration Potassium Chloride 10 meq 05/10/24 09:00 05/22/24 09:05 Potassium Chloride 10 Meq Er Tablet PO 10 meq DAILY SOLITARIO Administration Saccharomyces Boulardii 250 mg 05/18/24 17:00 05/22/24 09:06 Saccharomyces Boulardii 250 Mg Capsule PO 250 mg TID SOLITARIO Administration Tramadol HCl 25 mg 05/11/24 12:02 05/22/24 05:32 Tramadol Hcl (*Crx) 25 Mg Tablet PO 25 mg Q6H PRN Administration Pain Rated 4-6 Trazodone HCl 200 mg 05/09/24 21:35 05/21/24 20:23 Trazodone Hcl 50 Mg Tablet PO 200 mg HS SOLITARIO Administration Radiology Results: ITS Impressions Abdomen/Pelvis CT 05/13/24 13:32 IMPRESSION: 1. Atrophic kidneys. 2. Highly suggestive descending colon and proximal sigmoid colon diverticulitis. Follow-up and clinical correlation advised. Upper GI Series 05/14/24 11:08 IMPRESSION: 1. Narrowing of the distalmost esophagus with smooth mucosal margins which could be due to either spasm or fixed stricture either benign or malignant. Would recommend endoscopy for further evaluation. Abdomen X-Ray 05/18/24 17:52 IMPRESSION: NG tube in distal stomach or proximal duodenum Labs Labs: Laboratory Results - last 24 hr 05/22/24 05:25 WBC 8.1 RBC 2.98 L Hgb 9.3 L Hct 28.7 L MCV 96.3 MCH 31.2 MCHC 32.4 RDW 16.1 H Plt Count 146 L MPV 11.9 H Sodium 139 Potassium 3.2 L Chloride 114 H Carbon Dioxide 22 Anion Gap 3 L BUN 27 H Creatinine 1.70 H Estim Creat Clear Calc 30 Estimated GFR 29 L Glucose 87 Calcium 7.6 L Quality VTE Prophylaxis VTE prophylaxis: pharmacologic ordered
[2024-05-22] MEDS: METOCLOPRAMIDE HCL 10 MG/10 ML SOLN UDC FEED TUBE (12:53)
[2024-05-22 14:00] VITALS: BP 139/63; PULSE 97; RESP 18; TEMP 36.5; O2SAT 99
--- NOTE | 2024-05-22 14:38 | P.DS_ITS ---
DS: Admitting Diagnosis Discharge Date 05/22/2024 Admitting Diagnosis esophageal stricture diverticulitis CKD Dizziness Hypertension Hypothyroidism DS: Discharge Diagnosis Discharge Diagnosis (1) Esophageal stricture: Code(s): K22.2 - Esophageal obstruction Status: Acute (2) Diverticulitis: Code(s): K57.92 - Diverticulitis of intestine, part unspecified, without perforation or abscess without bleeding Status: Acute (3) CKD (chronic kidney disease): Qualifiers: Chronic kidney disease stage: unspecified stage Qualified Code(s): N18.9 - Chronic kidney disease, unspecified Code(s): N18.9 - Chronic kidney disease, unspecified Status: Chronic (4) Dizziness: Code(s): R42 - Dizziness and giddiness Status: Acute (5) Hypertension: Qualifiers: Hypertension type: primary hypertension Qualified Code(s): I10 - Essential (primary) hypertension Code(s): I10 - Essential (primary) hypertension Status: Chronic (6) Hypothyroidism: Code(s): E03.9 - Hypothyroidism, unspecified Status: Acute DS: Summary Hospital Course Reason for hospitalization: esophageal stricture diverticulitis CKD Dizziness Hypertension Hypothyroidism Hospital Course: 73 y/o F with PMH of hypertension, SRIRAM intolerant of CPAP, agoraphobia, hypothyroidism, COPD, gout, and anxiety presents to the hospital with abdominal pain. Not meeting sepsis criteria on admission. Patient had slight JORDAN on admission which resolved throughout inpatient stay. CT abdomen/pelvis showed diverticulitis at the ascending and descending colon, the latter with likely mild perforation but without evidence abscess. Patient started on antibiotics at that time and surgery consulted. No surgical intervention required and patient remained on medical management. Patient completed antibiotics during admission. Despite diverticulitis clinically improving patient continued to be unable to tolerate a diet. Repeat CT showed highly suggestive descending colon and proximal sigmoid colon diverticulitis. Surgery ordered an upper GI series which showed narrowing of the distalmost esophagus with smooth mucosal margins which could be due to either spasm or fixed stricture either benign or malignant. GI consulted for EGD to assess if stricture, esophagitis, ring or even malignancy. EGD showed no mechanically obstructive lesions. Per GI patients symptoms are likely more related to achalasia or other non specific motility disorders. Plan for follow up in the GI clinic at discharge for a high resolution esophageal manometry. During admission patient had a NG tube placed for TPN due to poor oral intake which was discontinued on 05/21. Prior to discharge patient was tolerating a heart healthy diet. She denied nausea/vomiting and associated abdominal pain. During admission patient was having intermittent dizziness and lightheadedness. She was noted to be borderline hypotensive on her home antihypertensive regimen of metoprolol and olmesartan-HCTZ. Discontinued HCTZ and blood pressures improved. She was started on meclizine for breakthrough dizziness. At time of discharge patient had no complaints denying chest pain, shortness of breath, palpitations, nausea/vomiting, abdominal pain, dizziness/lightheadedness. Patient discharged to senior living facility in a stable condition. She is to follow up with her primary care provider in 1 week and GI as scheduled. Status at Discharge Functional status at discharge: uses cane/walker Time Spent with Patient Time attestation: Total time spent providing and/or coordinating discharge services: Time spent: Greater than 30 minutes Exam Narrative: AF HR 97 RR 18 SPO2 99 BP 139/63 General: female in no acute respiratory distress who is nontoxic appearing, sitting up in bed. HEENT: Normocephalic. Atraumatic. Extraocular movement intact. Sclera clear and anicteric. No facial asymmetry. Chest: Lungs are clear to auscultation bilaterally. No wheezes or crackles. CV: Heart was regular rate and rhythm. S1-S2. No murmurs, gallops, or rubs. Abd: Abdomen was soft. Nontender. Nondistended. Positive bowel sounds. No organomegaly or masses. Neuro: Patient is alert. Speech is clear. DS: Data Data Completed and Pending Completed studies during hospitalization: abdomen pelvis CT abdomen pelvis CT upper GI abdomen x-ray Pending studies at discharge: Pending at discharge 05/15/24 15:33 Surgical [PTH] Routine Labs on day of discharge: Labs from last 24 hours 05/22/24 05:25 WBC 8.1 RBC 2.98 L Hgb 9.3 L Hct 28.7 L MCV 96.3 MCH 31.2 MCHC 32.4 RDW 16.1 H Plt Count 146 L MPV 11.9 H Sodium 139 Potassium 3.2 L Chloride 114 H Carbon Dioxide 22 Anion Gap 3 L BUN 27 H Creatinine 1.70 H Estim Creat Clear Calc 30 Estimated GFR 29 L Glucose 87 Calcium 7.6 L Discharge Plan Discharge Attending physician on discharge: Ramiro Cam Consulting providers: Morales Collins Discharging Clinician: Germaine Espino Anticipated Discharge Date/Time: 05/22/24 14:38 Patient Disposition: SNF Activity: as tolerated Diet: as tolerated and low fiber Discharge Instructions: Discharge disposition: Patient admitted to the hospital for acute diverticulitis as seen on imaging Surgery consulted, no surgical intervention required at that time Patient started on antibiotics which were completed during her admission Per surgery no surgical follow up required Remain on a low fiber diet, attached is information on this diet. Monitor stool output There is no colonoscopy records in your chart. Unless you have had one at another facility, colonoscopy would be advisable in 4-6 weeks. Despite improvement of diverticulitis patient continued to have nausea/vomiting with meals Upper GI imaging was obtained and was concerning for esophageal stricture EGD was performed and no mechanically obstructive lesions were noted Follow up in GI clinic for esophageal manometry to evaluate possible achalasia or other motility disorders Continue to monitor blood pressures at home Medications: Continue metoprolol 50 mg twice a day Stop Benicar HCT (olmesartan-hydrochlorothiazide) Started on olmesartan 40 mg daily Follow up with your primary care provider about resuming the medication Take caution while standing, rising, or moving Change positions slowly taking a break between each position change If you standing feel dizzy sit back down and take a break Started patient on meclizine PRN for dizziness, attached is information on this medication Take all medications as prescribed even if feeling better Eat well balanced meals and stay hydrated Keep active to remain strong Encouraged to continue with yearly vaccinations Return to the emergency department if he developed sudden shortness of breath, chest pain, nausea, vomiting, upset stomach or intractable diarrhea Return to the emergency department if you develop fever greater than 101.5 Follow-up with the primary care physician within 1 weeks follow up with GI for further eval Thank you for [facility] for your healthcare needs Patient Instructions: Meclizine (By mouth), Diverticulitis (DC), Low Fiber Diet (DC) Patient Language: Khmer Stand Alone Forms: General Discharge Information Follow-up/Referrals: Morales Collins MD [Physician] - 1 Week UNKNOWN,DOCTOR [Primary Care Provider] - 1 Week Discharge Medications: New meclizine 12.5 mg Tablet 12.5 mg PO TID PRN (Reason: dizziness) Qty: 60 0RF ondansetron 4 mg tablet,disintegrating 4 mg PO Q8H PRN (Reason: nausea and vomiting) Qty: 60 0RF metoclopramide HCl [Reglan] 10 mg tablet 10 mg PO Q6H PRN (Reason: nausea and vomiting) Qty: 30 0RF olmesartan [Benicar] 20 mg Tablet 40 mg PO QAM Qty: 60 0RF Continued levothyroxine [Synthroid] 75 mcg tablet 1 tablet PO DAILY trazodone 100 mg tablet 2 tablet PO HS esomeprazole magnesium [Nexium] 40 mg capsule,delayed release(DR/EC) 1 cap PO 2XD metoprolol tartrate [Lopressor] 50 mg tablet 1 tablet PO BID montelukast [Singulair] 10 mg tablet 1 tablet PO DAILY alprazolam 1 mg tablet 1 mg PO QID PRN (Reason: anxiety) tramadol 50 mg tablet 50 mg PO HS potassium chloride [Klor-Con 10] 10 mEq tablet extended release 1 tablet PO DAILY Qty: 30 0RF Discontinued olmesartan-hydrochlorothiazide [Benicar HCT] 40-12.5 mg tablet 1 tablet PO DAILY Date of admission: 05/11/24 12:21 Primary Care Provider: UNKNOWN,DOCTOR Admitting Provider: Patty Toledo Attending physician on admission: Germaine Espino Condition: Stable Hospitalist MIPS Heart Failure (Exclusion) Patient has history of Heart Transplant or Left Ventricular Assistive Device?: No IF YES, STOP HERE Heart Failure (Qualifier) Patient has current or prior documentation of LVEF less than or equal to 40%, or mod/servere depressed LVSF?: No IF NO, STOP HERE
[2024-05-22] MEDS: INFLUENZA VACCINE HIGH DOSE (>64) 180 MCG/0.5 ML SYRINGE IM (15:47)
== END 2024-05-22 16:24 | DRG 392 ==
LOC: ANHED 17:54 → ANH3MED 17:56
PROVIDERS: Emergency Medicine; Internal Medicine Gastroenterology; Nurse Practitioner; Student in an Organized Health Care Education/Training Program; Surgery; Admitting Provider Internal Medicine; Emergency Provider Physician Assistant; Visit Provider Student in an Organized Health Care Education/Training Program
PROC: 0DJ08ZZ Inspection of Upper Intestinal Tract, Via Natural or Artificial Opening Endoscopic (ICD-10-PCS; principal; 2024-05-15 15:30)
DX: K57.20 Diverticulitis of large intestine with perforation and abscess without bleeding (principal); N17.9 Acute kidney failure, unspecified; K22.0 Achalasia of cardia; K22.2 Esophageal obstruction; R13.10 Dysphagia, unspecified; R42 Dizziness and giddiness; K44.9 Diaphragmatic hernia without obstruction or gangrene; I12.9 Hypertensive chronic kidney disease with stage 1 through stage 4 chronic kidney disease, or unspecified chronic kidney disease; N18.9 Chronic kidney disease, unspecified; E03.9 Hypothyroidism, unspecified; Z23 Encounter for immunization; J44.9 Chronic obstructive pulmonary disease, unspecified; G47.33 Obstructive sleep apnea (adult) (pediatric); F41.9 Anxiety disorder, unspecified; M10.9 Gout, unspecified; F40.00 Agoraphobia, unspecified; Z87.891 Personal history of nicotine dependence; Z90.49 Acquired absence of other specified parts of digestive tract; Z90.710 Acquired absence of both cervix and uterus
CPT/HCPCS: 36415; 74018; 74176; 74240; 80048; 80053; 81001; 82607; 82746; 83540; 83550; 83690; 84443; 85025; 85027; 88305; 90471; 90662; 96361; 96365; 96367; 96372; 96375; 96376; 97110; 97161; 97166; 97530; 97535; 99285; A9270; G0008; G0378; J0692; J1650; J1836; J2270; J2405; J2470; J2765; J7030; J7120

== ENCOUNTER 2024-06-18 15:38 | Inpatient (IN) | payer MEDICARE, SELFPAY ==
[2024-06-18] VITALS (29 sets, daily range): BP systolic 143–166; BP diastolic 66–98; PULSE 78–101; RESP 11–40; TEMP 36.6–36.8; O2SAT 97–100; BMI 33.0
--- NOTE | ~2024-06-18 | XR_ITS ---
EXAMINATION: XR chest 1V portable DATE: 06/18/2024 16:14 INDICATION: Weakness TECHNIQUE: frontal view of the chest was obtained. COMPARISON: Chest radiograph dated 11/22/2021 FINDINGS: The lungs are clear with no focal airspace opacities, pulmonary edema, pleural effusion or pneumothor ax. The cardiomediastinal silhouette is normal. Approximately 20 degree upper thoracic levoscoliosis with compensatory mild lower thoracic dextrocurvature. IMPRESSION: 1. No acute cardiopulmonary disease. Reviewed, dictated and finalized at location A. R CAR[facility]ER
--- NOTE | ~2024-06-18 | CT_ITS ---
CLINICAL INDICATION: Abdominal pain and diarrhea COMPARISON: 05/13/2024. TECHNIQUE: Multiple contiguous axial images of the abdomen and pelvis were performed following the ad ministration of with 100 mL Omnipaque-350 intravenous contrast The dose-length product (DLP) was 1438.92 mGy-cm. Automated exposure control and iterative reconstruction technique were employed. FINDINGS/OBSERVATIONS: Visualized lower thorax: The bilateral lung bases are clear. The heart is of normal size, without pericardial effusion. Small hiatal hernia is present. Liver: Punctate calcifications identified within the hepatic parenchyma, suggesting prior granulomatous dise ase. The remainder of the liver otherwise enhances homogeneously, and is not enlarged measuring 13 cm in l ongitudinal dimension. Gallbladder and biliary system: The gallbladder is surgically absent. Pancreas: Fatty atrophy of the pancreas, without without ductal dilatation. Spleen: Punctate calcifications identified within the splenic parenchyma, suggesting prior granulomatous dise ase. The remainder of the spleen otherwise enhances homogeneously and is not enlarged measuring 8 cm in lo ngitudinal dimension. Kidneys: The bilateral kidneys are atrophic, but enhance symmetrically without hydronephrosis or renal calculi . Adrenal glands: Unremarkable. Gastrointestinal tract: Mural thickening with surrounding inflammatory change at the level of the distal descending colon/pro ximal sigmoid colon, with multiple foci of extraluminal air, communicating with the undersurface of t he anterolateral abdominal wall. This is best identified on axial series, images 98 through 118. No gross free perforation is present. No drainable fluid collection is present. Trace mural thickening with surrounding inflammatory change is also identified within the cecum and a scending colon, with multiple diverticula, possibly early diverticulitis. Appendix: The appendix is not definitively visualized. However, no pericecal inflammatory change is identified suggest the presence of acute appendicitis. Vasculature: Densely calcified atherosclerotic disease. The inferior vena cava is slit like suggesting hypovolemia. Lymph nodes: No pathologically enlarged or morphologically suspicious lymph nodes within the retroperitoneum or at the root of the mesentery. Pelvic structures: The bladder is distended, and otherwise unremarkable. The uterus is atrophic or surgically absent. Body wall and musculoskeletal: Moderate anasarca, an interval change from prior Degenerative disease within the upper lumbar spine with osteophyte formation and vacuum phenomena. IMPRESSION: Mural thickening with surrounding inflammatory change involving the distal descending/proximal sigmoi d colons. Extraluminal air is identified communicating with the undersurface of the anterolateral abd ominal wall. No gross perforation is present. No drainable fluid collection is noted. Additional findings suggesting early diverticulitis of the cecum and ascending colon, as detailed abo ve. Hypovolemia. Anasarca. Reviewed, dictated and finalized at location A. [employer] IMPRESSION: Mural thickening with surrounding inflammatory change involving the distal desc ending/proximal sigmoid colons. Extraluminal air is identified communicating wi th the undersurface of the anterolateral abdominal wall. No gross perforation is present. No drainable fluid collection is noted. Additional findings suggesting early diverticulitis of the cecum and ascending colon, as detailed above. Hypovolemia. Anasarca.
--- NOTE | ~2024-06-18 | CT_ITS ---
EXAMINATION: CT abdomen pelvis wo con DATE: 06/26/2024 01:03 INDICATION: Abdominal pain TECHNIQUE: Computed tomography (CT) of the abdomen and pelvis was performed without intravenous contr ast. The dose-length product was 1700.41 mGy-cm. Automated exposure control and iterative reconstruct ion technique were employed. COMPARISON: CT dated 06/18/2024 FINDINGS: There is small amount of ascites. There is a small amount of extraluminal gas adjacent to t he descending colon communicating with the undersurface of the anterolateral abdominal wall. There is colonic diverticulosis. There is trace perirectal dependent fluid. No significant vascular abnormali ty. There is renal atrophy. Status post cholecystectomy. Colonic diverticulosis. Cannot exclude mild acute diverticulitis. No evidence for drainable abscess. Moderate bilateral pleural effusions have developed. Dependent atelectasis. Mild lumbar spondylosis. No acute osseous abnormality. There are calcified granulomas in the liver and spleen. There is pancre atic atrophy. There is mild edema of the anterior abdominal wall and flanks. IMPRESSION: 1. Small persistent collection of extraluminal gas adjacent to the descending colon abutting the ante rior abdominal wall, images 132-139. No evidence for abscess formation. Cannot exclude mild acute div erticulitis. 2: Interval development of moderate bilateral pleural effusions and ascites. Reviewed, dictated and finalized at location A. [employer] IMPRESSION: 1. Small persistent collection of extraluminal gas adjacent to the descending c olon abutting the anterior abdominal wall, images 132-139. No evidence for absc ess formation. Cannot exclude mild acute diverticulitis. 2: Interval development of moderate bilateral pleural effusions and ascites.
--- NOTE | 2024-06-18 15:51 | ED.GENADULT ---
HPI - General Adult General Chief complaint: Weakness Stated complaint: weakness Time Seen by Provider: 06/18/24 15:47 History of Present Illness HPI narrative: Patient 73-year-old female who presents emergency department with chief complaint of generalized weakness and diarrhea. Patient reports that she was in the hospital until [place] reports she was discharged home started having gout and then was having difficulty ambulating. Patient reports that she was continuing to have diarrhea was unable to make it to the bathroom and has been laying in her bed in the same pull up since that time the patient reports that she has been unable ambulate reports that she feels very weak and reports that she has abdominal discomfort Related Data Home Medications ?Medication ?Instructions ?Recorded ?Confirmed ?Last Taken ?Type esomeprazole magnesium 40 mg 1 cap PO 2XD 11/23/21 05/09/24 05/08/24 History capsule,delayed release (Nexium) levothyroxine 75 mcg tablet 1 tablet PO DAILY 11/23/21 05/09/24 05/09/24 History (Synthroid) metoprolol tartrate 50 mg tablet 1 tablet PO BID 11/23/21 05/09/24 05/08/24 History (Lopressor) montelukast 10 mg tablet 1 tablet PO DAILY 11/23/21 05/09/24 05/08/24 History (Singulair) trazodone 100 mg tablet 2 tablet PO HS 11/23/21 05/09/24 05/08/24 History alprazolam 1 mg tablet 1 mg PO QID PRN anxiety 05/09/24 05/09/24 Unknown History tramadol 50 mg tablet 50 mg PO HS 05/09/24 05/09/24 05/08/24 History Allergies Allergy/AdvReac Type Severity Reaction Status Date / Time No Known Allergies Allergy Mild Verified 05/15/24 14:16 Review of Systems Review of Systems: A 10 system review of systems was completed on the patient and is negative except for what is stated in the HPI. Nursing and ancillary documentation was reviewed. [facility] Past Medical History Medical History Lower abdominal pain Dysphagia Anxiety Postmenopausal Hypothyroidism Gout Sleep apnea Intolerant of CPAP COPD (chronic obstructive pulmonary disease) Diverticulitis C. difficile colitis 2021 CKD (chronic kidney disease) Diarrhea Hypertension Surgical History Surgical History History of hysterectomy History of cholecystectomy Family History Family History Other Family history of malignant neoplasm Social History Social History Smoking packs per day: 1 Smoking cigarettes per day: 20.0 Years smoked: 3 Smoking pack-years: 3.00 Smoking status: Former smoker Tobacco type: cigarettes Alcohol intake: never Substance use: never Do You Feel Safe in your Home?: Yes Lack of Transportation: YES Lack of Food: Never True Current Housing: I Have Housing Concerned About Future Housing: No Difficulty Paying Gas/Electric Bills: No Difficulty Paying for Meds: No Currently Unemployed: No Education: Grade School Difficulty w/ Childcare or Family Care: No Spiritual care concerns: No Exam Narrative: GENERAL: Well-appearing, well-nourished, and in no acute distress. HEAD: Normocephalic, atraumatic. EYES: PERRLA and EOMI. ENT: Nares clear, no rhinorrhea or epistaxis. Mucous membranes moist. NECK: Supple. CHEST: Clear to auscultation. No respiratory distress. HEART: Regular rate and rhythm. No murmur heard. Normal peripheral pulses. ABDOMEN: Soft, diffuse mild tenderness, nondistended, normal active bowel sounds. EXTREMITIES: Normal range of motion. No edema. SKIN: Warm, dry, no rash. NEURO: No focal deficits. Alert and oriented x3. PSYCH: Normal mood and affect. Course Vital Signs Vital signs: Vital Signs Pulse Oximetry 100 06/18/24 16:07 Temperature 36.6 C 06/18/24 16:36 Pulse Rate 92 06/18/24 17:30 Respiratory Rate 14 06/18/24 17:30 Blood Pressure 154/78 H 06/18/24 16:47 Pulse Oximetry 100 06/18/24 17:30 Medical Decision Making MDM Narrative Medical decision making narrative: Differential diagnosis includes diverticulitis, colitis, intestinal perforation, intra-abdominal infection Laboratory studies were obtained on the patient showed a white count of 11 troponin was slightly elevated at 0.071 CT scan of the abdomen pelvis showed Mural thickening with surrounding inflammatory change involving the distal descending/proximal sigmoid colons. Extraluminal air is identified communicating with the undersurface of the anterolateral abdominal wall. No gross perforation is present. No drainable fluid collection is noted. Additional findings suggesting early diverticulitis of the cecum and ascending colon, as detailed above. Hypovolemia. Anasarca. The patient was started on Zosyn case was discussed with surgery and the patient will be admitted to the hospitalist service Vital Signs Vital Signs: Vital Signs Pulse Oximetry 100 06/18/24 16:07 Temperature 36.6 C 06/18/24 16:36 Pulse Rate 92 06/18/24 17:30 Respiratory Rate 14 06/18/24 17:30 Blood Pressure 154/78 H 06/18/24 16:47 Pulse Oximetry 100 06/18/24 17:30 Lab Data 06/18/24 16:24 06/18/24 16:24 Labs: Lab Results 06/18/24 Range/Units 16:24 WBC 11.1 H (4.5-10.0) K/mm3 RBC 3.46 L (4.2-5.4) M/mm3 Hgb 11.1 L (12.0-15.0) g/dL Hct 34.7 L (37.0-47.0) % MCV 100.3 H (80-100) fl MCH 32.1 (26-34) pg MCHC 32.0 (32-36) g/dl RDW 16.2 H (11.5-14.5) % Plt Count 243 D (150-375) k/mm3 MPV 10.5 H (7.4-10.4) fl Immature Gran % (Auto) 0.5 (0-0.5) % Neut % (Auto) 79.2 H (45.5-73.1) % Lymph % (Auto) 12.6 L (18.3-44.2) % [place] % (Auto) 7.0 (2.6-8.5) % Eos % (Auto) 0.5 (0-4.4) % Baso % (Auto) 0.2 (0.2-1.2) % Lymph # (Auto) 1.40 (0.9-3.2) K/mm3 [place] # (Auto) 0.8 H (0.1-0.6) K/mm3 Eos # (Auto) 0.1 (0-0.3) K/mm3 Baso # (Auto) 0.0 (0.0-0.1) K/mm3 Abs Immat Gran (auto) 0.06 H (0.00-0.031) K/mm3 Absolute Neuts (auto) 8.8 H (1.3-6.7) K/mm3 Absolute Nucleated RBC 0.000 (0.0-0.012) K/mm3 Nucleated RBC % 0.0 (0.0-0.2) % Sodium 141 (137-145) mmol/L Potassium 3.5 (3.4-5.0) mmol/L Chloride 107 (98-107) mmol/L Carbon Dioxide 27 (22-30) mmol/L Anion Gap 7 (4-12) mmol/L BUN 24 H (7-17) mg/dL Creatinine 1.37 H (0.7-1.0) mg/dL Estim Creat Clear Calc 37 ml/min Estimated GFR 38 L (59 - ) Glucose 102 (65-110) mg/dL Lactic Acid 1.9 (0.7-2.0) mmol/L Calcium 7.4 L (8.4-10.2) mg/dL Magnesium 1.3 L (1.6-2.3) mg/dL Total Bilirubin 1.3 (0.2-1.3) mg/dL AST 22 (14-36) U/L ALT 13 (6-35) U/L Alkaline Phosphatase 113 (38-126) U/L Troponin I 0.071 H* (0.000-0.034) ng/mL Total Protein 6.0 L (6.3-8.2) g/dL Albumin 2.5 L (3.5-5.1) g/dL Lipase 75 (23-300) U/L Procalcitonin 0.1 ng/mL Influenza A (RT-PCR) Negative (Negative) Influenza B (RT-PCR) Negative (Negative) RSV (RT-PCR) Negative (Negative) SARS-CoV-2 RNA (RT-PCR) Negative (Negative) Discharge Plan Discharge Clinical Impression: Diverticulitis, Lower abdominal pain Patient Disposition: Still a Patient Condition: Stable Patient Language: Polish Prescriptions: No Action levothyroxine [Synthroid] 75 mcg tablet 1 tablet PO DAILY trazodone 100 mg tablet 2 tablet PO HS esomeprazole magnesium [Nexium] 40 mg capsule,delayed release(DR/EC) 1 cap PO 2XD metoprolol tartrate [Lopressor] 50 mg tablet 1 tablet PO BID montelukast [Singulair] 10 mg tablet 1 tablet PO DAILY alprazolam 1 mg tablet 1 mg PO QID PRN (Reason: anxiety) tramadol 50 mg tablet 50 mg PO HS meclizine 12.5 mg Tablet 12.5 mg PO TID PRN (Reason: dizziness) Qty: 60 0RF ondansetron 4 mg tablet,disintegrating 4 mg PO Q8H PRN (Reason: nausea and vomiting) Qty: 60 0RF metoclopramide HCl [Reglan] 10 mg tablet 10 mg PO Q6H PRN (Reason: nausea and vomiting) Qty: 30 0RF potassium chloride [Klor-Con 10] 10 mEq tablet extended release 1 tablet PO DAILY Qty: 30 0RF olmesartan [Benicar] 20 mg Tablet 40 mg PO QAM Qty: 60 0RF Follow-up/Referrals: UNKNOWN,DOCTOR [Primary Care Provider] - Time of Disposition: 17:42
[2024-06-18] MEDS: SODIUM CHLORIDE 0.9% IV 1,000 ML 999 ML IV CONT (16:29)
[2024-06-18] MEDS: ONDANSETRON INJ 4 MG/2 ML VIAL IV PUSH (16:29)
[2024-06-18 16:33] LABS: Basophils Percent Auto 0.2 % (0.2-1.2); Eosinophils Absolute Auto 0.1 K/mm3 (0-0.3); Eosinophils Percent Auto 0.5 % (0-4.4); Hematocrit 34.7 % (37.0-47.0); Hemoglobin 11.1 g/dL (12.0-15.0); Immature Granulocyte Absolute 0.06 K/mm3 (0.00-0.031); Immature Granulocyte Percent A 0.5 % (0-0.5); Lymphocytes Percent Auto 12.6 % (18.3-44.2); Mean Corpuscular Hemoglobin 32.1 pg (26-34); Mean Corpuscular Volume 100.3 fl (80-100); Mean Platelet Volume 10.5 fl (7.4-10.4); Monocytes Absolute Auto 0.8 K/mm3 (0.1-0.6); Neutrophils Absolute Auto 8.8 K/mm3 (1.3-6.7); Neutrophils Percent Auto 79.2 % (45.5-73.1); Platelet Count Result 243 k/mm3 (150-375); Red Blood Count 3.46 M/mm3 (4.2-5.4); Red Cell Distribution Width 16.2 % (11.5-14.5); White Blood Count 11.1 K/mm3 (4.5-10.0)
[2024-06-18 16:43] LABS: Alanine Aminotransferase 13 U/L (6-35); Albumin Level 2.5 g/dL (3.5-5.1); Alkaline Phosphatase 113 U/L (38-126); Anion Gap 7 mmol/L (4-12); Aspartate Amino Transferase 22 U/L (14-36); Bilirubin,Total 1.3 mg/dL (0.2-1.3); Blood Urea Nitrogen 24 mg/dL (7-17); Calcium 7.4 mg/dL (8.4-10.2); Carbon Dioxide 27 mmol/L (22-30); Chloride 107 mmol/L (98-107); Estimated CRCL calculation 37 ml/min; Estimated Glomerular Filt Rate 38; Glucose 102 mg/dL (65-110); Lactic Acid Reflex 1.9 mmol/L (0.7-2.0); Lipase 75 U/L (23-300); Magnesium 1.3 mg/dL (1.6-2.3); Potassium 3.5 mmol/L (3.4-5.0); Sodium 141 mmol/L (137-145)
[2024-06-18 16:59] LABS: Troponin I 0.071 ng/mL (0.000-0.034)
[2024-06-18 17:09] LABS: Influenza A QL RT-PCR Negative (Negative); Influenza B QL RT-PCR Negative (Negative); RSV RNA, RT-PCR Negative (Negative); SARS-CoV-2 RNA PCR Negative (Negative)
[2024-06-18] MEDS: MAGNESIUM SULF 1 GM/D5W 100 ML 1 GM/100 ML BAG IVPB (17:18)
[2024-06-18 17:21] LABS: Procalcitonin 0.1 ng/mL
[2024-06-18] MEDS: MORPHINE SULFATE (*CRX) 4 MG/ML INJ IV PUSH (18:20)
[2024-06-18 18:21] LABS: Add Urine Microscopic? YES; Appearance Urine Cloudy (Clear); Bacteria Urine 4+ /hpf; Bilirubin Urine Negative (Negative); Blood Urine Negative (Negative); Color Urine Yellow (Yellow); Glucose Urine UA Negative (Negative); Ketones Urine Trace mg/dL (Negative); Leukocyte Esterase Ur 1+ LEU/UL (Negative); Nitrate Urine Negative (Negative); Protein Urine 1+ mg/dL (Negative); RBC Urine 0-2 /hpf (0-2); Specific Grav Ur 1.026 (1.001-1.035); Squamous Epithelial Cell Urine None Seen /hpf (Few); WBC Urine 21-50 /hpf (0-3); pH Urine 5.5 (5.0-9.0)
--- NOTE | 2024-06-18 20:10 | ECG_ITS ---
Test Date: 2024-06-18 20:15:54 Measurements Intervals [place] Rate: 90 P: 15 ND: 149 QRS: -5 QRSD: 74 T: 40 QT: 354 QTc: 434 Interpretive Statements SINUS RHYTHM POSSIBLE ANTERIOR MYOCARDIAL INFARCTION , PROBABLY OLD [30 ms Q WAVE IN V3/V4, OR R < 0.2 mV IN V4] No previous ECG available for comparison Electronically Signed On 06-20-2024 13:37:38 ADVERTISING REPRESENTATIVE by Suni Green
--- NOTE | 2024-06-18 21:07 | ADMGEN ---
This patient, Melissa Tom, was admitted to IMU Room 207-01. Patient/family oriented to hospital policies and general routines including ID bracelet, bed and alarms, visiting hours, pain management, procedures, bathroom and other care routines, personal items, smoking policy, room service/diet, and visiting hours. Information on how to activate the Rapid Response Team has been discussed. Patient/Family are encouraged to report perceived risks to care and to ask questions if they do not understand what they are told or what they should do.
[2024-06-18] MEDS: SODIUM CHLORIDE 0.9% IV 1,000 ML 125 ML IV CONT (21:54)
[2024-06-18] MEDS: PIPERACILLIN/TAZ 2.25G/NS 50ML 2.25 GM/50 ML BAG IVPB (21:58)
[2024-06-18 22:35] LABS: Troponin I 0.063 ng/mL (0.000-0.034)
--- NOTE | 2024-06-18 23:14 | PM.IMHP ---
H&P: HPI History of Present Illness Date/Time: 06/18/24 23:14 Chief Complaint: Diarrhea Narrative: 73-year-old female with a past medical history of essential hypertension, obesity, obstructive sleep apnea intolerant to CPAP, hypothyroidism, COPD anxiety and gout who presented to the ER from home due to diarrhea and weakness. The patient has been having profuse watery diarrhea and with at least a bowel movement every hour for the last 3 days. She reports the stools are brown. She has not noticed any blood in her stools but she quickly became so weak that she could not get up and has basically been stay sitting in her recliner wearing the same incontinence brief that she has had on for 3 days. She reports that the diarrhea was associated with teeth attack chattering chills that seemed to be most likely rigors. She was unable to get up out of her chair to check her temperature. She reports that she has been having decreased urine output but denies any overt dysuria. She denies any chest pain, shortness breast or palpitations. She currently reports low back pain that what sounds like is probably around her SI joints. She received morphine in the ER which improved her back pain. She does report that her abdominal discomfort is worse when her abdomen is palpated in the left lower quadrant. She denies any overt nausea but has been having belching and reflux. She recently had an EGD during a prior hospitalization 05/11/2024 through 05/22/2024 for acute diverticulitis with microperforation. She reports that she has been using a walker at home since her recent hospital discharge. She thought she was doing pretty good as far as ambulation activity and energy until about a week ago when she began having pain in base of her right great toe which she feels is related to gout. It was associated with some erythema and warmth of the area. Due to the pain she was having difficulty getting up and ambulating. She was taking her home tramadol for the pain without relief. She reports that since she was unable to get up and walk she felt like she was getting weaker. She reports that she became so weak that she had been sitting in her recliner for 3 days and had been unable to leave her recliner to get up in get anything to eat or to check her temperature or use the restroom. When her son came to check on her today he brought her to the ER. Review of Systems Review of Systems: 12 systems were reviewed with pertinent positives and negatives per HPI. Except as documented in the HPI, all other systems were reviewed and are negative. [facility] Past Medical History Medical History (Updated 06/19/24 @ 02:36 by Sandrine Butler DO) Megaloblastic anemia Hiatal hernia Anxiety Postmenopausal Hypothyroidism Gout Sleep apnea Intolerant of CPAP COPD (chronic obstructive pulmonary disease) Diverticulitis Most recent episode 05/11/2024 through 05/22/2024 C. difficile colitis 2021 CKD (chronic kidney disease) Hypertension Surgical History Surgical History (Updated 06/19/24 @ 02:19 by Sandrine Butler DO) History of appendectomy The patient believes that she had her appendix taken out at the same time as her hysterectomy or at the same time as her cholecystectomy but she is not sure History of tonsillectomy and adenoidectomy History of hysterectomy History of cholecystectomy Family History Family History Other Family history of malignant neoplasm Social History Social History (Updated 06/19/24 @ 02:23 by Sandrine Butler DO) Social History: Patient has been since 1987. She had a daughter who of complications of juvenile diabetes at the age of 40. Her son is still living. She has a history of briefly smoking when she was quite young. She denies any history of significant alcohol use. She denies illicit substance use. 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 She ambulates with a walker since late 2023. Code status: DNR/DNI Surrogate decision maker: Jeremiah (son) Smoking packs per day: 1 Smoking cigarettes per day: 20.0 Years smoked: 5 Smoking pack-years: 5.00 Smoking status: Former smoker Tobacco type: cigarettes Alcohol intake: never Substance use: never Substance use type: does not use Do You Feel Safe in your Home?: Yes Lack of Transportation: YES Lack of Food: Never True Current Housing: I Have Housing Concerned About Future Housing: No Difficulty Paying Gas/Electric Bills: No Difficulty Paying for Meds: No Currently Unemployed: No Education: High School Diploma/GED Difficulty w/ Childcare or Family Care: No Spiritual care concerns: No Meds Home Medications and Allergies Home Medications ?Medication ?Instructions ?Recorded ?Confirmed ?Type esomeprazole magnesium 40 mg 1 cap PO 2XD 11/23/21 06/18/24 History capsule,delayed release (Nexium) levothyroxine 75 mcg tablet 1 tablet PO DAILY 11/23/21 06/18/24 History (Synthroid) metoprolol tartrate 50 mg tablet 1 tablet PO BID 11/23/21 06/18/24 History (Lopressor) montelukast 10 mg tablet 1 tablet PO DAILY 11/23/21 06/18/24 History (Singulair) trazodone 100 mg tablet 2 tablet PO HS 11/23/21 06/18/24 History alprazolam 1 mg tablet 1 mg PO QID PRN anxiety 05/09/24 06/18/24 History tramadol 50 mg tablet 100 mg PO HS PRN pain (scale score 05/09/24 06/18/24 History 4-6) meclizine 12.5 mg tablet 12.5 mg PO TID PRN dizziness #60 05/18/24 06/18/24 Rx tabs metoclopramide HCl 10 mg tablet 10 mg PO Q6H PRN nausea and 05/18/24 06/18/24 Rx (Reglan) vomiting #30 tabs ondansetron 4 mg disintegrating 4 mg PO Q8H PRN nausea and 05/18/24 06/18/24 Rx tablet vomiting #60 tabs potassium chloride 10 mEq 1 tablet PO DAILY #30 tabs 05/18/24 06/18/24 Rx tablet,extended release (Klor-Con) olmesartan 20 mg tablet (Benicar) 40 mg (2 x 20 mg) PO QAM #60 tabs 05/22/24 06/18/24 Rx tramadol 50 mg tablet 50 mg PO DAILY PRN pain (scale 06/18/24 06/18/24 History score 4-6) Allergies Allergy/AdvReac Type Severity Reaction Status Date / Time No Known Allergies Allergy Mild Verified 05/15/24 14:16 Vital Signs Vital Signs - 24 hr 06/18/24 16:07 06/18/24 16:08 06/18/24 16:15 Temperature Pulse Rate 90 83 Respiratory Rate 13 13 Blood Pressure 157/81 H Pulse Oximetry 100 100 100 06/18/24 16:17 06/18/24 16:30 06/18/24 16:32 Temperature Pulse Rate 86 84 89 Respiratory Rate 18 12 13 Blood Pressure 160/80 H 166/94 H Pulse Oximetry 100 100 06/18/24 16:36 06/18/24 16:45 06/18/24 16:47 Temperature 97.9 F Pulse Rate 85 86 84 Respiratory Rate 17 23 H 24 H Blood Pressure 154/78 H 154/78 H Pulse Oximetry 100 100 100 06/18/24 17:06 06/18/24 17:15 06/18/24 17:30 Temperature Pulse Rate 94 92 Respiratory Rate 40 H 13 14 Blood Pressure Pulse Oximetry 97 100 06/18/24 17:45 06/18/24 18:00 06/18/24 18:15 Temperature Pulse Rate 87 86 84 Respiratory Rate 16 15 12 Blood Pressure Pulse Oximetry 99 100 06/18/24 18:30 06/18/24 18:45 06/18/24 19:00 Temperature Pulse Rate 78 81 81 Respiratory Rate 12 12 13 Blood Pressure Pulse Oximetry 99 98 06/18/24 19:15 06/18/24 19:30 06/18/24 19:45 Temperature Pulse Rate 80 83 99 Respiratory Rate 13 14 21 H Blood Pressure Pulse Oximetry 99 98 06/18/24 20:00 06/18/24 20:01 06/18/24 20:17 Temperature Pulse Rate 85 88 90 Respiratory Rate 11 L 12 19 Blood Pressure 143/66 H 152/72 H Pulse Oximetry 98 99 99 Exam Narrative: Weight 93 kg BMI 33.1 Const: Other: Obese, no acute distress, appears stated age HENMT: Other: Mucous membranes are dry, no oral pharyngeal erythema, small oropharynx, crowded posterior oropharynx Eyes: Other: Pupils are equal and reactive, bilateral cataracts noted, positive conjunctival pallor Neck: Other: Large neck circumference, no JVD Resp: Other: Increased breath sounds at the bases, no increased work of breathing Cardio: Other: Regular rate, regular rhythm, 2+ bilateral radial and pedal pulses GI: Other: Tender in the left lower quadrant, positive bowel sounds, no rebound, no guarding, soft Skin: Other: Mild pallor, non jaundice, normal temperature to touch Neuro: Other: Alert orient times 4 but not necessarily the best historian, speech is clear, no facial asymmetry, no localizing neurologic deficits noted during the course of conversation Extrem: Other: 4/5 patient services technician strength bilaterally, no clubbing, cyanosis, generalized edema noted Psych: Other: Appropriate mood and affect, pleasant and cooperative, judgment and insight intact H&P: Results Labs Labs: Laboratory Tests 06/18/24 16:24 06/18/24 16:24 06/18/24 06/18/24 06/18/24 16:24 18:10 21:36 WBC 11.1 H RBC 3.46 L Hgb 11.1 L Hct 34.7 L MCV 100.3 H MCH 32.1 MCHC 32.0 RDW 16.2 H Plt Count 243 D MPV 10.5 H Immature Gran % (Auto) 0.5 Neut % (Auto) 79.2 H Lymph % (Auto) 12.6 L [place] % (Auto) 7.0 Eos % (Auto) 0.5 Baso % (Auto) 0.2 Lymph # (Auto) 1.40 [place] # (Auto) 0.8 H Eos # (Auto) 0.1 Baso # (Auto) 0.0 Abs Immat Gran (auto) 0.06 H Absolute Neuts (auto) 8.8 H Absolute Nucleated RBC 0.000 Nucleated RBC % 0.0 Sodium 141 Potassium 3.5 Chloride 107 Carbon Dioxide 27 Anion Gap 7 BUN 24 H Creatinine 1.37 H Estim Creat Clear Calc 37 Estimated GFR 38 L Glucose 102 Lactic Acid 1.9 Calcium 7.4 L Magnesium 1.3 L Total Bilirubin 1.3 AST 22 ALT 13 Alkaline Phosphatase 113 Troponin I 0.071 H* 0.063 H* Total Protein 6.0 L Albumin 2.5 L Lipase 75 Procalcitonin 0.1 Urine Color Yellow Urine Appearance Cloudy H Urine pH 5.5 Ur Specific [place] 1.026 Urine Protein 1+ H Urine Glucose (UA) Negative Urine Ketones Trace H Ur Blood (Man) Negative Urine Nitrate Negative Urine Bilirubin Negative Urine Urobilinogen 1.0 Leukocyte Esterase Rfl 1+ H Urine RBC 0-2 Urine WBC 21-50 H Ur Squamous Epith Cells None seen Urine Bacteria 4+ H Urine Casts 3-5 Influenza A (RT-PCR) Negative Influenza B (RT-PCR) Negative RSV (RT-PCR) Negative SARS-CoV-2 RNA (RT-PCR) Negative Impressions Chest X-Ray 06/18/24 16:15 IMPRESSION: 1. No acute cardiopulmonary disease. Abdomen/Pelvis CT 06/18/24 17:06 IMPRESSION: Mural thickening with surrounding inflammatory change involving the distal descending/proximal sigmoid colons. Extraluminal air is identified communicating with the undersurface of the anterolateral abdominal wall. No gross perforation is present. No drainable fluid collection is noted. Additional findings suggesting early diverticulitis of the cecum and ascending colon, as detailed above. Hypovolemia. Anasarca. EKG: Normal sinus rhythm, probable old anterior IN QTC 434 All imaging and EKGs personally reviewed and interpreted. And unless stated otherwise agree with radiologic and cardiology interpretation. Assessment and Plan Assessment and plan (1) Diverticulitis: Code(s): K57.92 - Diverticulitis of intestine, part unspecified, without perforation or abscess without bleeding Status: Acute (2) Diarrhea: Qualifiers: Diarrhea type: presumed infectious Qualified Code(s): R19.7 - Diarrhea, unspecified Code(s): R19.7 - Diarrhea, unspecified Status: Acute (3) Abnormal urinalysis: Code(s): R82.90 - Unspecified abnormal findings in urine Status: Acute (4) Hypothyroidism: Qualifiers: Hypothyroidism type: unspecified Qualified Code(s): E03.9 - Hypothyroidism, unspecified Code(s): E03.9 - Hypothyroidism, unspecified Status: Acute (5) CKD (chronic kidney disease): Qualifiers: Chronic kidney disease stage: unspecified stage Qualified Code(s): N18.9 - Chronic kidney disease, unspecified Code(s): N18.9 - Chronic kidney disease, unspecified Status: Chronic (6) Hypertension: Qualifiers: Hypertension type: primary hypertension Qualified Code(s): I10 - Essential (primary) hypertension Code(s): I10 - Essential (primary) hypertension Status: Chronic (7) Gout attack: Qualifiers: Gout site: foot Gout etiology: unspecified cause Laterality: right Qualified Code(s): M10.9 - Gout, unspecified Code(s): M10.9 - Gout, unspecified Status: Acute Plan Patient's CT scan is suggestive of diverticulitis the cecum and ascending colon there is presence of extraluminal air communicate with the undersurface of the abdominal wall but radiology states no obvious free air from perforation? ? No drainable abscess noted. Patient has been started on Zosyn. She has not had any diarrheal episodes since arriving to the IMU. She has had recent antibiotic therapy and she has a distant history of seated and given her profuse diarrhea rib that was reported at home will also check AC diff PCR. Will keep the patient is NPO except meds until evaluated by General surgery. CT of the abdomen also demonstrated vascular changes suggestive of hypovolemia patient also has ketones in her urine and dry mucous membranes. She was given volume resuscitation and will be continued on maintenance fluids. CT also demonstrated anasarca the patient does have chronically low albumin but her albumin is even lower than prior hospitalization. Her low albumin is most likely due to protein calorie malnutrition. Patient did not meet sepsis criteria on admission is been afebrile. Patient's urinalysis was abnormal in could be consistent with infection. Blood cultures and urine cultures are pending. Patient has chronic megaloblastic anemia. Her hemoglobin is actually higher than her baseline supporting the diagnosis of hypovolemia dehydration. Will repeat CBC and monitor. Despite her dehydration and history of chronic kidney disease are creatinine remains stable. Will repeat electrolyte panel in a.m.. Patient does have hypo magnesemia. She was given 1 g of magnesium sulfate late in the ER. Will given additional 2 g in repeat level in a.m.. The patient reports persistent pain and her 1st metacarpophalangeal joint on the right and she does have some associated erythema and swelling. Clinical picture seems consistent with history of gout. Will give patient colchicine 1.2 mg x 1 and then repeat dose 0.6 mg x 1 1 hour later. Patient is not a candidate for prednisone/steroid therapy at this time due to her acute underlying infections. Patient has been admitted as observation status. Quality VTE Prophylaxis VTE prophylaxis: pharmacologic ordered (Lovenox 40 mg subQ daily.) Hospitalist [facility] Advance Care Plan I have confirmed that the patient's Advanced Care Plan is present, code status is documented, or surrogate decision maker is listed in patient medical record.: Yes Medication Reconciliation I have utilized all available resources to obtain, update and review the patients current medications (includes all prescriptions, OTC, herbals, cannabis, and nutritional supplements).: Yes
[2024-06-18] MEDS: MAGNESIUM SULF 4 GM/WATER100ML 4 GM/100 ML BAG IVPB (23:35)
[2024-06-18] MEDS: traZODone HCL 50 MG TABLET 200 MG PO (23:36)
[2024-06-18] MEDS: METOPROLOL TARTRATE 50 MG TAB PO (23:36)
[2024-06-18] MEDS: traMADol HCL (*CRX) 50 MG TABLET 100 MG PO (23:37)
[2024-06-19] VITALS (11 sets, daily range): BP systolic 128–152; BP diastolic 56–68; PULSE 63–97; RESP 16–20; TEMP 36.3–36.9; O2SAT 98–100; BMI 33.0
[2024-06-19] MEDS: PIPERACILLIN/TAZ 2.25G/NS 50ML 2.25 GM/50 ML BAG IVPB ×4 (04:18→23:42)
[2024-06-19] MEDS: COLCHICINE 0.6 MG TABLET 1.2 MG PO (04:18)
[2024-06-19 05:15] LABS: Hematocrit 33.6 % (37.0-47.0); Hemoglobin 10.9 g/dL (12.0-15.0); Mean Corpuscular HGB Conc 32.4 g/dl (32-36); Mean Corpuscular Hemoglobin 32.4 pg (26-34); Mean Platelet Volume 10.1 fl (7.4-10.4); Platelet Count Result 201 k/mm3 (150-375); Red Blood Count 3.36 M/mm3 (4.2-5.4); Red Cell Distribution Width 16.4 % (11.5-14.5); White Blood Count 8.6 K/mm3 (4.5-10.0)
[2024-06-19] MEDS: COLCHICINE 0.6 MG TABLET PO (05:20)
[2024-06-19 05:25] LABS: Anion Gap 8 mmol/L (4-12); Blood Urea Nitrogen 23 mg/dL (7-17); Calcium 7.4 mg/dL (8.4-10.2); Carbon Dioxide 25 mmol/L (22-30); Chloride 108 mmol/L (98-107); Estimated CRCL calculation 38 ml/min; Estimated Glomerular Filt Rate 38; Glucose 102 mg/dL (65-110); Potassium 3.7 mmol/L (3.4-5.0); Sodium 141 mmol/L (137-145)
[2024-06-19] MEDS: LEVOTHYROXINE SODIUM 75 MCG TABLET PO (05:58)
[2024-06-19] MEDS: METOPROLOL TARTRATE 50 MG TAB PO ×2 (08:22→21:09)
[2024-06-19] MEDS: PANTOPRAZOLE 40 MG TABLET PO (08:22)
[2024-06-19] MEDS: POTASSIUM CHLORIDE 10 MEQ ER TABLET PO (08:22)
[2024-06-19] MEDS: MONTELUKAST SODIUM 10 MG TABLET PO (08:22)
[2024-06-19] MEDS: OLMESARTAN MEDOXOMIL 20 MG TABLET 40 MG PO (08:36)
--- NOTE | 2024-06-19 10:18 | P.CONGS_ITS ---
Assessment and Plan Assessment and plan (1) Diverticulitis of intestine with perforation without abscess: Qualifiers: Diverticulitis site: large intestine Diverticulitis bleeding: without bleeding Qualified Code(s): K57.20 - Diverticulitis of large intestine with perforation and abscess without bleeding Code(s): K57.80 - Diverticulitis of intestine, part unspecified, with perforation and abscess without bleeding Status: Acute Assessment and Plan: * Recurrent diverticulitis with at least 3 previous episodes of diverticulitis managed nonoperatively with antibiotics. CT scan on this admission shows likely diverticulitis with microperforation of the distal descending/proximal sigmoid colon, as well as possible early changes of right-sided diverticulitis. She is already clinically improving with IV antibiotics. She is not having any abdominal pain today and only mild LLQ tenderness on exam. No peritoneal signs on exam. WBC count has normalized. No indication for urgent surgical intervention. We would recommend continuing with IV antibiotics and IV fluids. I will advance her to a clear liquid diet today. Will continue to follow with serial abdominal exams and labs. (2) Gout attack: Qualifiers: Gout site: foot Gout etiology: unspecified cause Laterality: right Q ualified Code(s): M10.9 - Gout, unspecified Code(s): M10.9 - Gout, unspecified Status: Acute Assessment and Plan: * Treated with colchicine on admission with improvement in her symptoms. Steroids avoided at this time due to her diverticulitis. (3) Abnormal urinalysis: Code(s): R82.90 - Unspecified abnormal findings in urine Status: Acute Assessment and Plan: * UA abnormal and could reflect UTI. Reports low urine output and difficulty urinating, but no other urinary complaints. UA pending. Continue antibiotics per Hospitalist. (4) Elevated troponin: Code(s): R79.89 - Other specified abnormal findings of blood chemistry Status: Acute (5) Hypertension: Qualifiers: Hypertension type: primary hypertension Qualified Code(s): I10 - Essential (primary) hypertension Code(s): I10 - Essential (primary) hypertension Status: Chronic Plan I have discussed the patient's case and plan of care with Dr. Bunch. Thank you for allowing us to see the patient in consultation and we will continue to follow along with you. History of Present Illness Consult details Consult date: 01/22/25 Reason for consult: other (Diverticulitis with perforation) Requesting physician: Jonathan Dacosta MD Narrative: This is a 73-year-old woman with PMH of HTN, obesity, SRIRAM, COPD, and other medical problems, who we have been asked to see in surgical consultation for diverticulitis with perforation. She has added at least 3 previous episodes of diverticulitis in [id number]. Her most recent hospitalization was May 10, 2024 and she was hospitalized for about a week and a half, and clinically improved with antibiotics. At that time, she was treated for diverticulitis of the ascending and descending colon with micro perforation. She was discharged to a SNF and decided to leave the facility prematurely because this was the same facility her fiance was in before he . She reports knowing she probably should not have went home yet and was still weak. Her abdominal pain did resolve before discharge and returned over the past few days to week. She denies any fever chills. She reports noticing pain and swelling in her right great toe consistent with previous episodes of gout. She was unable to get out of her chair for 3 days due to the pain. She reports voiding and having diarrhea with in her depends without having the ability to change. She had friends come over, but they were not able to physically manage helping her get cleaned up. She continued to have left lower quadrant abdominal pain consistent with previous episodes of diverticulitis. With her immobility and persistent pain, she called EMS and was brought into the ED for evaluation. In the ED, labs were significant for white blood cell count of 11,100, BUN 24, creatinine 1.37, magnesium 1.3 which has been replaced. Troponin 0.071 and repeat 0.063. Albumin 2.5. UA abnormal, urine culture pending. Influenza a/B, RSV, and COVID negative. C diff ordered after admission but not yet resulted. She has a history of C diff with recent antibiotic treatment and persistent diarrhea. CT scan of the abdomen and pelvis showed mural thickening with surrounding inflammatory change involving the distal descending/proximal sigmoid colon with extraluminal air, consistent with micro perforation. No large intraperitoneal air and no drainable fluid collections. Additionally there are findings of possible early diverticulitis of the cecum and ascending colon. Also noted is hypovolemia and anasarca. She was admitted to the hospitalist service and started on IV Zosyn. White blood cell count normalized today. She is afebrile. She is now seen in the IMU. She denies any abdominal pain this morning. She reports having a colonoscopy with benign polypectomy between 5-10 years ago at an outlying facility. Previous abdominal surgery includes an open cholecystectomy with incidental appendectomy, , and partial hysterectomy. Review of Systems 2 Review of Systems: All systems reviewed & are unremarkable except as noted in HPI and below PMFSH Past Medical History Medical History Megaloblastic anemia Hiatal hernia Anxiety Postmenopausal Hypothyroidism Gout Sleep apnea Intolerant of CPAP COPD (chronic obstructive pulmonary disease) Diverticulitis Most recent episode 05/11/2024 through 05/22/2024 C. difficile colitis 2021 CKD (chronic kidney disease) Hypertension Surgical History Surgical History History of appendectomy Incidental appendectomy during open cholecystectomy History of tonsillectomy and adenoidectomy History of hysterectomy Partial hysterectomy History of cholecystectomy Family History Family History Other Family history of malignant neoplasm Social History Social History Social History: Patient has been since 1987. She had a daughter who of complications of juvenile diabetes at the age of 40. Her son is still living. She has a history of briefly smoking when she was quite young. She denies any history of significant alcohol use. She denies illicit substance use. 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 She ambulates with a walker since late 2023. Code status: DNR/DNI Surrogate decision maker: Jeremiah (son) Smoking packs per day: 1 Smoking cigarettes per day: 20.0 Years smoked: 5 Smoking pack-years: 5.00 Smoking status: Former smoker Tobacco type: cigarettes Alcohol intake: never Substance use: never Substance use type: does not use Do You Feel Safe in your Home?: Yes Lack of Transportation: YES Lack of Food: Never True Current Housing: I Have Housing Concerned About Future Housing: No Difficulty Paying Gas/Electric Bills: No Difficulty Paying for Meds: No Currently Unemployed: No Education: High School Diploma/GED Difficulty w/ Childcare or Family Care: No Spiritual care concerns: No Meds Home Medications and Allergies Home Medications ?Medication ?Instructions ?Recorded ?Confirmed ?Type esomeprazole magnesium 40 mg 1 cap PO 2XD 11/23/21 06/18/24 History capsule,delayed release (Nexium) levothyroxine 75 mcg tablet 1 tablet PO DAILY 11/23/21 06/18/24 History (Synthroid) metoprolol tartrate 50 mg tablet 1 tablet PO BID 11/23/21 06/18/24 History (Lopressor) montelukast 10 mg tablet 1 tablet PO DAILY 11/23/21 06/18/24 History (Singulair) trazodone 100 mg tablet 2 tablet PO HS 11/23/21 06/18/24 History alprazolam 1 mg tablet 1 mg PO QID PRN anxiety 05/09/24 06/18/24 History tramadol 50 mg tablet 100 mg PO HS PRN pain (scale score 05/09/24 06/18/24 History 4-6) meclizine 12.5 mg tablet 12.5 mg PO TID PRN dizziness #60 05/18/24 06/18/24 Rx tabs metoclopramide HCl 10 mg tablet 10 mg PO Q6H PRN nausea and 05/18/24 06/18/24 Rx (Reglan) vomiting #30 tabs ondansetron 4 mg disintegrating 4 mg PO Q8H PRN nausea and 05/18/24 06/18/24 Rx tablet vomiting #60 tabs potassium chloride 10 mEq 1 tablet PO DAILY #30 tabs 05/18/24 06/18/24 Rx tablet,extended release (Klor-Con) olmesartan 20 mg tablet (Benicar) 40 mg (2 x 20 mg) PO QAM #60 tabs 05/22/24 06/18/24 Rx tramadol 50 mg tablet 50 mg PO DAILY PRN pain (scale 06/18/24 06/18/24 History score 4-6) Allergies Allergy/AdvReac Type Severity Reaction Status Date / Time No Known Allergies Allergy Mild Verified 05/15/24 14:16 Vital Signs Vital Signs - 24 hr 06/18/24 16:07 06/18/24 16:08 06/18/24 16:15 Temperature Pulse Rate 90 83 Respiratory Rate 13 13 Blood Pressure 157/81 H Pulse Oximetry 100 100 100 Oxygen Delivery 06/18/24 16:17 06/18/24 16:30 06/18/24 16:32 Temperature Pulse Rate 86 84 89 Respiratory Rate 18 12 13 Blood Pressure 160/80 H 166/94 H Pulse Oximetry 100 100 Oxygen Delivery 06/18/24 16:36 06/18/24 16:45 06/18/24 16:47 Temperature 97.9 F Pulse Rate 85 86 84 Respiratory Rate 17 23 H 24 H Blood Pressure 154/78 H 154/78 H Pulse Oximetry 100 100 100 Oxygen Delivery 06/18/24 17:06 06/18/24 17:15 06/18/24 17:30 Temperature Pulse Rate 94 92 Respiratory Rate 40 H 13 14 Blood Pressure Pulse Oximetry 97 100 Oxygen Delivery 06/18/24 17:45 06/18/24 18:00 06/18/24 18:15 Temperature Pulse Rate 87 86 84 Respiratory Rate 16 15 12 Blood Pressure Pulse Oximetry 99 100 Oxygen Delivery 06/18/24 18:30 06/18/24 18:45 06/18/24 19:00 Temperature Pulse Rate 78 81 81 Respiratory Rate 12 12 13 Blood Pressure Pulse Oximetry 99 98 Oxygen Delivery 06/18/24 19:15 06/18/24 19:30 06/18/24 19:45 Temperature Pulse Rate 80 83 99 Respiratory Rate 13 14 21 H Blood Pressure Pulse Oximetry 99 98 Oxygen Delivery 06/18/24 20:00 06/18/24 20:01 06/18/24 20:17 Temperature Pulse Rate 85 88 90 Respiratory Rate 11 L 12 19 Blood Pressure 143/66 H 152/72 H Pulse Oximetry 98 99 99 Oxygen Delivery 06/18/24 20:45 06/18/24 20:50 06/18/24 21:02 Temperature 98.2 F Pulse Rate 79 101 H 79 Respiratory Rate 18 18 Blood Pressure 152/98 H Pulse Oximetry 100 100 Oxygen Delivery Room Air 06/18/24 22:00 06/18/24 23:36 06/19/24 00:00 Temperature 97.8 F Pulse Rate 93 91 91 Respiratory Rate 16 Blood Pressure 128/57 L Pulse Oximetry 98 Oxygen Delivery 06/19/24 00:00 06/19/24 00:00 06/19/24 02:00 Temperature Pulse Rate 91 97 71 Respiratory Rate 16 Blood Pressure Pulse Oximetry 98 Oxygen Delivery Room Air 06/19/24 04:00 06/19/24 04:00 06/19/24 04:00 Temperature 97.7 F Pulse Rate 72 72 66 Respiratory Rate 18 18 Blood Pressure 147/64 H Pulse Oximetry 98 98 Oxygen Delivery Room Air 06/19/24 06:00 06/19/24 08:00 06/19/24 08:18 Temperature 97.5 F L Pulse Rate 69 70 Respiratory Rate 20 Blood Pressure 152/67 H Pulse Oximetry 99 Oxygen Delivery Room Air 06/19/24 08:22 Temperature Pulse Rate 73 Respiratory Rate Blood Pressure Pulse Oximetry Oxygen Delivery Exam 2 Const: General: comfortable and no acute distress Nutritional Appearance: o bese Orientation/consciousness: patient oriented x3 HENMT: Head: normocephalic and atraumatic Ears: hearing grossly normal bilaterally Mouth: Yes moist mucous membranes Eyes: General: appearance normal, both eyes and all related structures P upils: Equal, round and reactive pupils present Neck: Neck: normal visual inspection and full ROM Resp: Effort & Inspection: no respiratory distress Auscultation: clear to auscultation bilaterally Cardio: Rate: regular rate Rhythm: regular rhythm Peripheral pulses: P eripheral pulses 2+ throughout GI: Inspection: non-distended, Pannus present, obesity, scar (large transverse RUQ scar) and no visible herniation GI Palp: Yes Soft to palpation, Yes Tenderness to palpation present (GI) (mild tenderness in LLQ), No Guarding due to palpation present (GI) and No Rebound tenderness present Auscultation: n ormal bowel sounds Skin: General skin exam: normal color Neuro: General: moves all extremities and no focal motor deficits Speech: n ormal speech Motor exam (neuro): 5/5 motor strength present throughout Extrem: Right upper extremity: normal to inspection Left upper extremity: n ormal to inspection Right lower extremity: normal to inspection; no edema Left lower extremity: normal capillary refill and foot Details: normal capillary refill, tenderness (great toe, mild erythema around medial 1st MTP joint), warmth Location: diffusely and edema Location: diffusely (mostly diffusely across the medial and dorsal foot) Details: non-pitting Psych: Mental Status: mental status grossly normal Attitude: cooperative Insight: Good insight present (Psych) Judgement: Good judgement present (Psych) Results Labs 06/19/24 04:46 06/19/24 04:46 Labs: Abnormal lab results 06/18/24 06/18/24 06/18/24 Range/Units 16:24 18:10 21:36 WBC 11.1 H (4.5-10.0) K/mm3 RBC 3.46 L (4.2-5.4) M/mm3 Hgb 11.1 L (12.0-15.0) g/dL Hct 34.7 L (37.0-47.0) % MCV 100.3 H (80-100) fl RDW 16.2 H (11.5-14.5) % MPV 10.5 H (7.4-10.4) fl Neut % (Auto) 79.2 H (45.5-73.1) % Lymph % (Auto) 12.6 L (18.3-44.2) % Collin # (Auto) 0.8 H (0.1-0.6) K/mm3 Abs Immat Gran (auto) 0.06 H (0.00-0.031) K/mm3 Absolute Neuts (auto) 8.8 H (1.3-6.7) K/mm3 Chloride (98-107) mmol/L BUN 24 H (7-17) mg/dL Creatinine 1.37 H (0.7-1.0) mg/dL Estimated GFR 38 L (59 - ) Calcium 7.4 L (8.4-10.2) mg/dL Magnesium 1.3 L (1.6-2.3) mg/dL Troponin I 0.071 H* 0.063 H* (0.000-0.034) ng/mL Total Protein 6.0 L (6.3-8.2) g/dL Albumin 2.5 L (3.5-5.1) g/dL Urine Appearance Cloudy H (Clear) Urine Protein 1+ H (Negative) mg/dL Urine Ketones Trace H (Negative) mg/dL Leukocyte Esterase Rfl 1+ H (Negative) ELDA/UL Urine WBC 21-50 H (0-3) /hpf Urine Bacteria 4+ H /hpf 06/19/24 Range/Units 04:46 WBC (4.5-10.0) K/mm3 RBC 3.36 L (4.2-5.4) M/mm3 Hgb 10.9 L (12.0-15.0) g/dL Hct 33.6 L (37.0-47.0) % MCV (80-100) fl RDW 16.4 H (11.5-14.5) % MPV (7.4-10.4) fl Neut % (Auto) (45.5-73.1) % Lymph % (Auto) (18.3-44.2) % Collin # (Auto) (0.1-0.6) K/mm3 Abs Immat Gran (auto) (0.00-0.031) K/mm3 Absolute Neuts (auto) (1.3-6.7) K/mm3 Chloride 108 H (98-107) mmol/L BUN 23 H (7-17) mg/dL Creatinine 1.35 H (0.7-1.0) mg/dL Estimated GFR 38 L (59 - ) Calcium 7.4 L (8.4-10.2) mg/dL Magnesium (1.6-2.3) mg/dL Troponin I (0.000-0.034) ng/mL Total Protein (6.3-8.2) g/dL Albumin (3.5-5.1) g/dL Urine Appearance (Clear) Urine Protein (Negative) mg/dL Urine Ketones (Negative) mg/dL Leukocyte Esterase Rfl (Negative) ELDA/UL Urine WBC (0-3) /hpf Urine Bacteria /hpf Diabetes panel 06/18/24 06/19/24 Range/Units 16:24 04:46 Sodium 141 141 (137-145) mmol/L Potassium 3.5 3.7 (3.4-5.0) mmol/L Chloride 107 108 H (98-107) mmol/L Carbon Dioxide 27 25 (22-30) mmol/L BUN 24 H 23 H (7-17) mg/dL Creatinine 1.37 H 1.35 H (0.7-1.0) mg/dL Glucose 102 102 (65-110) mg/dL Calcium 7.4 L 7.4 L (8.4-10.2) mg/dL AST 22 (14-36) U/L ALT 13 (6-35) U/L Alkaline Phosphatase 113 (38-126) U/L Total Protein 6.0 L (6.3-8.2) g/dL Albumin 2.5 L (3.5-5.1) g/dL Calcium panel 06/18/24 06/19/24 Range/Units 16:24 04:46 Calcium 7.4 L 7.4 L (8.4-10.2) mg/dL Albumin 2.5 L (3.5-5.1) g/dL Pituitary panel 06/18/24 06/19/24 Range/Units 16:24 04:46 Sodium 141 141 (137-145) mmol/L Potassium 3.5 3.7 (3.4-5.0) mmol/L Chloride 107 108 H (98-107) mmol/L Carbon Dioxide 27 25 (22-30) mmol/L BUN 24 H 23 H (7-17) mg/dL Creatinine 1.37 H 1.35 H (0.7-1.0) mg/dL Glucose 102 102 (65-110) mg/dL Calcium 7.4 L 7.4 L (8.4-10.2) mg/dL Adrenal panel 06/18/24 06/19/24 Range/Units 16:24 04:46 Sodium 141 141 (137-145) mmol/L Potassium 3.5 3.7 (3.4-5.0) mmol/L Chloride 107 108 H (98-107) mmol/L Carbon Dioxide 27 25 (22-30) mmol/L BUN 24 H 23 H (7-17) mg/dL Creatinine 1.37 H 1.35 H (0.7-1.0) mg/dL Glucose 102 102 (65-110) mg/dL Calcium 7.4 L 7.4 L (8.4-10.2) mg/dL Total Bilirubin 1.3 (0.2-1.3) mg/dL AST 22 (14-36) U/L ALT 13 (6-35) U/L Alkaline Phosphatase 113 (38-126) U/L Total Protein 6.0 L (6.3-8.2) g/dL Albumin 2.5 L (3.5-5.1) g/dL All other labs normal. Imaging Additional studies: ITS Impressions Chest X-Ray 06/18/24 16:15 IMPRESSION: 1. No acute cardiopulmonary disease. Abdomen/Pelvis CT 06/18/24 17:06 IMPRESSION: Mural thickening with surrounding inflammatory change involving the distal descending/proximal sigmoid colons. Extraluminal air is identified communicating with the undersurface of the anterolateral abdominal wall. No gross perforation is present. No drainable fluid collection is noted. Additional findings suggesting early diverticulitis of the cecum and ascending colon, as detailed above. Hypovolemia. Anasarca.
--- NOTE | 2024-06-19 10:55 | P.PNIM_ITS ---
Progress Note: A&P Assessment and Plan (1) Diverticulitis: Code(s): K57.92 - Diverticulitis of intestine, part unspecified, without perforation or abscess without bleeding Status: Acute Assessment and Plan: patient has previous history of diverticulitis with micro perforation no surgical intervention done at that time * CT abdomen showing ruled thickening with surrounding inflammatory changes in the distal descending proximal sigmoid colon with no perforation or drainable fluid collection. * general surgery consulted * advance diet to clear liquid * continue IV Zosyn * pain control * antiemetics * IV fluids * monitor electrolytes replenish as needed * surgery planned for serial abdominal exams (2) Elevated troponin: Code(s): R79.89 - Other specified abnormal findings of blood chemistry Status: Acute Assessment and Plan: patient's troponins were mildly elevated and trending down * likely ischemic demand 0.071>0.063> * EKG normal sinus rhythm no ST-T changes * patient pain denying chest pain (3) Diarrhea: Qualifiers: Diarrhea type: presumed infectious Qualified Code(s): R19.7 - Diarrhea, unspecified Code(s): R19.7 - Diarrhea, unspecified Status: Acute Assessment and Plan: patient does have previous history of C diff infection had multiple episodes of diarrhea prior to admission however has not had 1 since admission * C-diff culture ordered (4) Abnormal urinalysis: Code(s): R82.90 - Unspecified abnormal findings in urine Status: Acute Assessment and Plan: * UA with leukocytes, urine wbc's, of 4+ bacteriuria * currently on IV Zosyn for diverticulitis should cover urinary tract infection pending cultures (5) Hypothyroidism: Qualifiers: Hypothyroidism type: unspecified Qualified Code(s): E03.9 - Hypothyroidism, unspecified Code(s): E03.9 - Hypothyroidism, unspecified Status: Acute Assessment and Plan: * resume patient's levothyroxine (6) CKD (chronic kidney disease): Qualifiers: Chronic kidney disease stage: unspecified stage Qualified Code(s): N18.9 - Chronic kidney disease, unspecified Code(s): N18.9 - Chronic kidney disease, unspecified Status: Chronic Assessment and Plan: * Gentle IV hydration. * CR at baseline 1.35 * Avoid nephrotoxic drugs. * Monitor antihypertensive drug therapy. * Avoid NSAIDs. * Routine CMP monitoring GFR. * Monitor electrolytes especially potassium. * Antibiotic doses depending on creatinine clearance. (7) Hypertension: Qualifiers: Hypertension type: primary hypertension Qualified Code(s): I10 - Essential (primary) hypertension Code(s): I10 - Essential (primary) hypertension Status: Chronic Assessment and Plan: * Mildly hypertensive * resume metoprolol * monitor BP pending (8) Gout attack: Qualifiers: Gout etiology: unspecified cause Gout site: foot Laterality: right Qualified Code(s): M10.9 - Gout, unspecified Code(s): M10.9 - Gout, unspecified Status: Acute Assessment and Plan: * patient was treated with colchicine Plan Code status: Full code per patient DVT prophylaxis: Heparin b.i.d. Stress ulcer prophylaxis: Protonix 40 daily PT/OT notes: PT/OT pending Disposition: patient continues admission to the medical unit for further evaluation and treatment of diverticulitis had mildly elevated troponins but trending down does not appear to be ACS can transfer to [facility]. PT/OT pending evaluation and discharge needs. Time Spent With Patient Time with patient: 15 - 25 minutes Subjective Date/time seen: 06/19/24 10:55 Interval history: Patient is a 73 year old female with was admitted for further evaluation and treatment of diverticulitis she also shown to have mildly elevated troponins however likely ischemic demand. general surgery consulted and following continue with IV antibiotics and status tolerated. 06/19/2024: Assumed Care Patient reports mild to moderate ABD pain, trops trended down and denied any CP or SOB. Normal WBC and afebrile Review of Systems Review of Systems: All systems reviewed & are unremarkable except as noted in HPI and below Exam Narrative: Weight 93 kg BMI 33.1 Const: Other: Obese, no acute distress, appears stated age HENMT: Other: Mucous membranes are dry, no oral pharyngeal erythema, small oropharynx, crowded posterior oropharynx Eyes: Other: Pupils are equal and reactive, bilateral cataracts noted, positive conjunctival pallor Neck: Other: Large neck circumference, no JVD Resp: Other: Increased breath sounds at the bases, no increased work of breathing Cardio: Other: Regular rate, regular rhythm, 2+ bilateral radial and pedal pulses GI: Other: Tender in the left lower quadrant, positive bowel sounds, no rebound, no guarding, soft Skin: Other: Mild pallor, non jaundice, normal temperature to touch Neuro: Other: Alert orient times 4 but not necessarily the best historian, speech is clear, no facial asymmetry, no localizing neurologic deficits noted during the course of conversation Extrem: Other: 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, no clubbi ng, cyanosis, generalized edema noted Psych: Other: Appropriate mood and affect, pleasant and cooperative, judgment and insight intact Objective Data Vital Signs Vital Signs: Vital Signs - 24 hr 06/18/24 16:07 06/18/24 16:08 06/18/24 16:15 Temperature Pulse Rate 90 83 Respiratory Rate 13 13 Blood Pressure 157/81 H Pulse Oximetry 100 100 100 Oxygen Delivery 06/18/24 16:17 06/18/24 16:30 06/18/24 16:32 Temperature Pulse Rate 86 84 89 Respiratory Rate 18 12 13 Blood Pressure 160/80 H 166/94 H Pulse Oximetry 100 100 Oxygen Delivery 06/18/24 16:36 06/18/24 16:45 06/18/24 16:47 Temperature 97.9 F Pulse Rate 85 86 84 Respiratory Rate 17 23 H 24 H Blood Pressure 154/78 H 154/78 H Pulse Oximetry 100 100 100 Oxygen Delivery 06/18/24 17:06 06/18/24 17:15 06/18/24 17:30 Temperature Pulse Rate 94 92 Respiratory Rate 40 H 13 14 Blood Pressure Pulse Oximetry 97 100 Oxygen Delivery 06/18/24 17:45 06/18/24 18:00 06/18/24 18:15 Temperature Pulse Rate 87 86 84 Respiratory Rate 16 15 12 Blood Pressure Pulse Oximetry 99 100 Oxygen Delivery 06/18/24 18:30 06/18/24 18:45 06/18/24 19:00 Temperature Pulse Rate 78 81 81 Respiratory Rate 12 12 13 Blood Pressure Pulse Oximetry 99 98 Oxygen Delivery 06/18/24 19:15 06/18/24 19:30 06/18/24 19:45 Temperature Pulse Rate 80 83 99 Respiratory Rate 13 14 21 H Blood Pressure Pulse Oximetry 99 98 Oxygen Delivery 06/18/24 20:00 06/18/24 20:01 06/18/24 20:17 Temperature Pulse Rate 85 88 90 Respiratory Rate 11 L 12 19 Blood Pressure 143/66 H 152/72 H Pulse Oximetry 98 99 99 Oxygen Delivery 06/18/24 20:45 06/18/24 20:50 06/18/24 21:02 Temperature 98.2 F Pulse Rate 79 101 H 79 Respiratory Rate 18 18 Blood Pressure 152/98 H Pulse Oximetry 100 100 Oxygen Delivery Room Air 06/18/24 22:00 06/18/24 23:36 06/19/24 00:00 Temperature 97.8 F Pulse Rate 93 91 91 Respiratory Rate 16 Blood Pressure 128/57 L Pulse Oximetry 98 Oxygen Delivery 06/19/24 00:00 06/19/24 00:00 06/19/24 02:00 Temperature Pulse Rate 91 97 71 Respiratory Rate 16 Blood Pressure Pulse Oximetry 98 Oxygen Delivery Room Air 06/19/24 04:00 06/19/24 04:00 06/19/24 04:00 Temperature 97.7 F Pulse Rate 72 72 66 Respiratory Rate 18 18 Blood Pressure 147/64 H Pulse Oximetry 98 98 Oxygen Delivery Room Air 06/19/24 06:00 06/19/24 08:00 06/19/24 08:18 Temperature 97.5 F L Pulse Rate 69 70 Respiratory Rate 20 Blood Pressure 152/67 H Pulse Oximetry 99 Oxygen Delivery Room Air 06/19/24 08:22 Temperature Pulse Rate 73 Respiratory Rate Blood Pressure Pulse Oximetry Oxygen Delivery Intake/Output Intake/Output: Intake & Output 06/16/24 06/17/24 06/18/24 06/19/24 23:59 23:59 23:59 23:59 Intake Total 1150 450 Balance 1150 450 Meds/Results Medications: Active Medications Generic Name Dose Route Start Last Admin Trade Name Freq PRN Reason Stop Dose Admin Acetaminophen 650 mg 06/18/24 17:42 Acetaminophen 325 Mg Tablet PO Q4H PRN Mild Pain (1-3) or Fever Alprazolam 1 mg 06/18/24 23:09 Alprazolam (*Crx) 0.5 Mg Tablet PO QID PRN anxiety Piperacillin Sod/Tazobactam Sod 2.25 gm in 50 mls @ 100 mls/hr 06/19/24 05:00 06/19/24 04:48 Zosyn 2.25 Gm/Ns 50 Ml IVPB Infused Q6HR SOLITARIO Infusion Sodium Chloride 1,000 mls @ 80 mls/hr 06/18/24 17:45 06/19/24 04:10 Normal Saline Iv IV CONT Not Given .[id number] SOLITARIO Levothyroxine Sodium 75 mcg 06/19/24 06:30 06/19/24 05:58 Levothyroxine Sodium 75 Mcg Tablet PO 75 mcg DAILY@0630 SOLITARIO Administration Meclizine HCl 12.5 mg 06/18/24 23:09 Meclizine Hcl 12.5 Mg Tablet PO TID PRN dizziness Metoprolol Tartrate 50 mg 06/18/24 23:10 06/19/24 08:22 Metoprolol Tartrate 50 Mg Tab PO 50 mg Q12HR SOLITARIO Administration Montelukast Sodium 10 mg 06/19/24 09:00 06/19/24 08:22 Montelukast Sodium 10 Mg Tablet PO 10 mg DAILY SOLITARIO Administration Olmesartan 40 mg 06/19/24 09:00 06/19/24 08:36 Olmesartan Medoxomil 20 Mg Tablet PO 40 mg QAM SOLITARIO Administration Ondansetron HCl 4 mg 06/18/24 17:42 Ondansetron Inj 4 Mg/2 Ml Vial IV PUSH Q4H PRN Nausea Pantoprazole Sodium 40 mg 06/19/24 09:00 06/19/24 08:22 Pantoprazole 40 Mg Tablet PO 40 mg QAM SOLITARIO Administration Potassium Chloride 10 meq 06/19/24 09:00 06/19/24 08:22 Potassium Chloride 10 Meq Er Tablet PO 10 meq DAILY SOLITARIO Administration Tramadol HCl 100 mg 06/18/24 23:09 06/18/24 23:37 Tramadol Hcl (*Crx) 50 Mg Tablet PO 100 mg HS PRN Administration pain 4-10 Tramadol HCl 50 mg 06/18/24 23:09 Tramadol Hcl (*Crx) 50 Mg Tablet PO QAM PRN pain 4-10 Trazodone HCl 200 mg 06/18/24 23:15 06/18/24 23:36 Trazodone Hcl 50 Mg Tablet PO 200 mg HS SOLITARIO Administration Radiology Results: ITS Impressions Chest X-Ray 06/18/24 16:15 IMPRESSION: 1. No acute cardiopulmonary disease. Abdomen/Pelvis CT 06/18/24 17:06 IMPRESSION: Mural thickening with surrounding inflammatory change involving the distal descending/proximal sigmoid colons. Extraluminal air is identified communicating with the undersurface of the anterolateral abdominal wall. No gross perforation is present. No drainable fluid collection is noted. Additional findings suggesting early diverticulitis of the cecum and ascending colon, as detailed above. Hypovolemia. Anasarca. Labs Labs: Laboratory Results - last 24 hr 06/18/24 06/18/24 06/18/24 16:24 18:10 21:36 WBC 11.1 H RBC 3.46 L Hgb 11.1 L Hct 34.7 L MCV 100.3 H MCH 32.1 MCHC 32.0 RDW 16.2 H Plt Count 243 D MPV 10.5 H Immature Gran % (Auto) 0.5 Neut % (Auto) 79.2 H Lymph % (Auto) 12.6 L [place] % (Auto) 7.0 Eos % (Auto) 0.5 Baso % (Auto) 0.2 Lymph # (Auto) 1.40 [place] # (Auto) 0.8 H Eos # (Auto) 0.1 Baso # (Auto) 0.0 Abs Immat Gran (auto) 0.06 H Absolute Neuts (auto) 8.8 H Absolute Nucleated RBC 0.000 Nucleated RBC % 0.0 Sodium 141 Potassium 3.5 Chloride 107 Carbon Dioxide 27 Anion Gap 7 BUN 24 H Creatinine 1.37 H Estim Creat Clear Calc 37 Estimated GFR 38 L Glucose 102 Lactic Acid 1.9 Calcium 7.4 L Magnesium 1.3 L Total Bilirubin 1.3 AST 22 ALT 13 Alkaline Phosphatase 113 Troponin I 0.071 H* 0.063 H* Total Protein 6.0 L Albumin 2.5 L Lipase 75 Procalcitonin 0.1 Urine Color Yellow Urine Appearance Cloudy H Urine pH 5.5 Ur Specific [place] 1.026 Urine Protein 1+ H Urine Glucose (UA) Negative Urine Ketones Trace H Ur Blood (Man) Negative Urine Nitrate Negative Urine Bilirubin Negative Urine Urobilinogen 1.0 Leukocyte Esterase Rfl 1+ H Urine RBC 0-2 Urine WBC 21-50 H Ur Squamous Epith Cells None seen Urine Bacteria 4+ H Urine Casts 3-5 Influenza A (RT-PCR) Negative Influenza B (RT-PCR) Negative RSV (RT-PCR) Negative SARS-CoV-2 RNA (RT-PCR) Negative 06/19/24 04:46 WBC 8.6 RBC 3.36 L Hgb 10.9 L Hct 33.6 L MCV 100.0 MCH 32.4 MCHC 32.4 RDW 16.4 H Plt Count 201 MPV 10.1 Immature Gran % (Auto) Neut % (Auto) Lymph % (Auto) [place] % (Auto) Eos % (Auto) Baso % (Auto) Lymph # (Auto) [place] # (Auto) Eos # (Auto) Baso # (Auto) Abs Immat Gran (auto) Absolute Neuts (auto) Absolute Nucleated RBC Nucleated RBC % Sodium 141 Potassium 3.7 Chloride 108 H Carbon Dioxide 25 Anion Gap 8 BUN 23 H Creatinine 1.35 H Estim Creat Clear Calc 38 Estimated GFR 38 L Glucose 102 Lactic Acid Calcium 7.4 L Magnesium Total Bilirubin AST ALT Alkaline Phosphatase Troponin I Total Protein Albumin Lipase Procalcitonin Urine Color Urine Appearance Urine pH Ur Specific [place] Urine Protein Urine Glucose (UA) Urine Ketones Ur Blood (Man) Urine Nitrate Urine Bilirubin Urine Urobilinogen Leukocyte Esterase Rfl Urine RBC Urine WBC Ur Squamous Epith Cells Urine Bacteria Urine Casts Influenza A (RT-PCR) Influenza B (RT-PCR) RSV (RT-PCR) SARS-CoV-2 RNA (RT-PCR) Quality VTE Prophylaxis VTE prophylaxis: pharmacologic ordered -Patient's previous records reviewed on admission -ER notes reviewed in detail on admission -discussed all findings and current treatment plan with patient/Family/POA -Consultations reviewed for recommendations -Patient's disposition for safe discharge discussed with casework manager Dictation performed by [employer] direct speech recognition software, theref ore securities consultant variants and typographical errors may occur. Hospitalist MIPS Advance Care Plan I have confirmed that the patient's Advanced Care Plan is present, code status is documented, or surrogate decision maker is listed in patient medical record.: Yes Medication Reconciliation I have utilized all available resources to obtain, update and review the patients current medications (includes all prescriptions, OTC, herbals, cannabis, and nutritional supplements).: Yes The patient is not eligible for med reconciliation; the patient is in a emergent medical situation where delaying treatment would jeopardize the patients health.: No
[2024-06-19 11:24] LABS: Alanine Aminotransferase 11 U/L (6-35); Albumin Level 2.5 g/dL (3.5-5.1); Alkaline Phosphatase 113 U/L (38-126); Aspartate Amino Transferase 20 U/L (14-36); Bilirubin,Total 0.9 mg/dL (0.2-1.3); Magnesium 3.2 mg/dL (1.6-2.3)
[2024-06-19 11:41] LABS: Troponin I 0.062 ng/mL (0.000-0.034)
[2024-06-19] MEDS: HEPARIN SODIUM 5,000 UNITS/ML VIAL 5000 UNITS SUB-Q ×2 (12:28→21:13)
[2024-06-19] MEDS: SODIUM CHLORIDE 0.9% IV 1,000 ML 80 ML IV CONT (12:28)
--- NOTE | 2024-06-19 18:29 | PC.NURSE ---
This patient, Melissa Tom, was transferred to [facility] on 06/19/24 at 1822. Personal belongings sent with patient. Report given to TOMAS Bautista. Appropriate documentation sent with patient.
[2024-06-19] MEDS: traZODone HCL 50 MG TABLET 200 MG PO (21:09)
[2024-06-19] MEDS: traMADol HCL (*CRX) 50 MG TABLET 100 MG PO (21:12)
[2024-06-20] MEDS: SODIUM CHLORIDE 0.9% IV 1,000 ML 80 ML IV CONT ×2 (01:00→18:07)
[2024-06-20] MEDS: LEVOTHYROXINE SODIUM 75 MCG TABLET PO (05:21)
[2024-06-20] MEDS: PIPERACILLIN/TAZ 2.25G/NS 50ML 2.25 GM/50 ML BAG IVPB (05:21)
[2024-06-20 05:52] VITALS: BP 149/73; PULSE 73; RESP 16; TEMP 36.4; O2SAT 100
[2024-06-20 07:35] LABS: Hematocrit 31.1 % (37.0-47.0); Hemoglobin 9.6 g/dL (12.0-15.0); Mean Corpuscular HGB Conc 30.9 g/dl (32-36); Mean Corpuscular Hemoglobin 31.1 pg (26-34); Mean Corpuscular Volume 100.6 fl (80-100); Mean Platelet Volume 10.3 fl (7.4-10.4); Platelet Count Result 208 k/mm3 (150-375); Red Blood Count 3.09 M/mm3 (4.2-5.4); Red Cell Distribution Width 16.4 % (11.5-14.5); White Blood Count 6.9 K/mm3 (4.5-10.0)
[2024-06-20 07:49] LABS: Anion Gap 6 mmol/L (4-12); Blood Urea Nitrogen 19 mg/dL (7-17); Calcium 6.9 mg/dL (8.4-10.2); Carbon Dioxide 23 mmol/L (22-30); Chloride 113 mmol/L (98-107); Estimated CRCL calculation 41 ml/min; Estimated Glomerular Filt Rate 42; Glucose 91 mg/dL (65-110); Potassium 3.7 mmol/L (3.4-5.0); Sodium 142 mmol/L (137-145)
--- NOTE | 2024-06-20 08:10 | P.PNIM_ITS ---
Progress Note: A&P Assessment and Plan (1) Diverticulitis: Code(s): K57.92 - Diverticulitis of intestine, part unspecified, without perforation or abscess without bleeding Status: Acute Assessment and Plan: patient has previous history of diverticulitis with micro perforation no surgical intervention done at that time * CT abdomen showing ruled thickening with surrounding inflammatory changes in the distal descending proximal sigmoid colon with no perforation or drainable fluid collection * general surgery consulted On clear liquid. Will advance it further * continue IV Zosyn * pain control * antiemetics * IV fluids will be continued and stop when able to tolerate diet * monitor electrolytes replenish as needed * surgery planned for serial abdominal exams (2) Elevated troponin: Code(s): R79.89 - Other specified abnormal findings of blood chemistry Status: Acute Assessment and Plan: patient's troponins were mildly elevated and trending down * likely ischemic demand 0.071>0.063> * EKG normal sinus rhythm no ST-T changes * patient pain denying chest pain (3) Diarrhea: Qualifiers: Diarrhea type: presumed infectious Qualified Code(s): R19.7 - Diarrhea, unspecified Code(s): R19.7 - Diarrhea, unspecified Status: Acute Assessment and Plan: patient does have previous history of C diff infection had multiple episodes of diarrhea prior to admission however has not had 1 since admission * C-diff culture ordered (4) Abnormal urinalysis: Code(s): R82.90 - Unspecified abnormal findings in urine Status: Acute Assessment and Plan: * UA with leukocytes, urine wbc's, of 4+ bacteriuria * currently on IV Zosyn for diverticulitis should cover urinary tract infection pending cultures Urine culture with E coli susceptibility pending (5) Hypothyroidism: Qualifiers: Hypothyroidism type: unspecified Qualified Code(s): E03.9 - Hypothyroidism, unspecified Code(s): E03.9 - Hypothyroidism, unspecified Status: Acute Assessment and Plan: * resume patient's levothyroxine (6) CKD (chronic kidney disease): Qualifiers: Chronic kidney disease stage: unspecified stage Qualified Code(s): N18.9 - Chronic kidney disease, unspecified Code(s): N18.9 - Chronic kidney disease, unspecified Status: Chronic Assessment and Plan: * Gentle IV hydration. * CR at baseline 1.35 * Avoid nephrotoxic drugs. * Monitor antihypertensive drug therapy. * Avoid NSAIDs. * Routine CMP monitoring GFR. * Monitor electrolytes especially potassium. * Antibiotic doses depending on creatinine clearance. (7) Hypertension: Qualifiers: Hypertension type: primary hypertension Qualified Code(s): I10 - Essential (primary) hypertension Code(s): I10 - Essential (primary) hypertension Status: Chronic Assessment and Plan: * resume metoprolol (8) Gout attack: Qualifiers: Gout site: foot Gout etiology: unspecified cause Laterality: right Qualified Code(s): M10.9 - Gout, unspecified Code(s): M10.9 - Gout, unspecified Status: Acute Assessment and Plan: * patient was treated with colchicine Plan Chronic mild anemia no signs of bleeding. Stable counts. Code status: Full code per patient DVT prophylaxis: Heparin b.i.d. Stress ulcer prophylaxis: Protonix 40 daily PT/OT notes: PT/OT ordered Disposition: PT OT to see Subjective Date/time seen: 06/20/24 08:10 Interval history: History reviewed. Denies any abdominal pain. Presented with generalized weakness. Review of Systems Review of Systems: All systems reviewed & are unremarkable except as noted in HPI and below Exam Narrative: GENERAL: Well-appearing, well-nourished, and in no acute distress. HEAD: Normocephalic, atraumatic. EYES: PERRLA and EOMI. ENT: Nares clear, no rhinorrhea or epistaxis. Mucous membranes moist. NECK: Supple CHEST: Clear to auscultation. No respiratory distress HEART: Regular rate and rhythm. No murmur heard. Normal peripheral pulses. ABDOMEN: Soft, nontender, nondistended, normal active bowel sounds. EXTREMITIES: Normal range of motion. No edema. SKIN: Warm, dry, no rash. NEURO: No focal deficits. Alert and oriented x3. PSYCH: Normal mood and affect. Objective Data Vital Signs Vital Signs: Vital Signs - 24 hr 06/19/24 08:18 06/19/24 08:22 06/19/24 10:00 Temperature 97.5 F L Pulse Rate 70 73 74 Respiratory Rate 20 Blood Pressure 152/67 H Pulse Oximetry 99 06/19/24 16:20 06/19/24 21:08 06/19/24 21:09 Temperature 97.4 F L 98.5 F Pulse Rate 65 79 80 Respiratory Rate 20 16 Blood Pressure 131/68 145/56 H Pulse Oximetry 99 100 06/20/24 05:52 Temperature 97.5 F L Pulse Rate 73 Respiratory Rate 16 Blood Pressure 149/73 H Pulse Oximetry 100 Intake/Output Intake/Output: Intake & Output 06/17/24 06/18/24 06/19/24 06/20/24 23:59 23:59 23:59 23:59 Intake Total 1150 2110 1550 Output Total 275 Balance 1150 1835 1550 Meds/Results Medications: Active Medications Generic Name Dose Route Start Last Admin Trade Name Freq PRN Reason Stop Dose Admin Acetaminophen 650 mg 06/18/24 17:42 Acetaminophen 325 Mg Tablet PO Q4H PRN Mild Pain (1-3) or Fever Alprazolam 1 mg 06/18/24 23:09 Alprazolam (*Crx) 0.5 Mg Tablet PO QID PRN anxiety Heparin Sodium (Porcine) 5,000 units 06/19/24 11:00 06/19/24 21:13 Heparin Sodium 5,000 Units/Ml Vial SUB-Q 5,000 units Q12HR SOLITARIO Administration Piperacillin Sod/Tazobactam Sod 2.25 gm in 50 mls @ 100 mls/hr 06/19/24 05:00 06/20/24 05:21 Zosyn 2.25 Gm/Ns 50 Ml IVPB 100 mls/hr Q6HR SOLITARIO Administration Sodium Chloride 1,000 mls @ 80 mls/hr 06/18/24 17:45 06/20/24 01:00 Normal Saline Iv IV CONT 80 mls/hr .[id number] SOLITARIO Administration Levothyroxine Sodium 75 mcg 06/19/24 06:30 06/20/24 05:21 Levothyroxine Sodium 75 Mcg Tablet PO 75 mcg DAILY@0630 SOLITARIO Administration Meclizine HCl 12.5 mg 06/18/24 23:09 Meclizine Hcl 12.5 Mg Tablet PO TID PRN dizziness Metoprolol Tartrate 50 mg 06/18/24 23:10 06/19/24 21:09 Metoprolol Tartrate 50 Mg Tab PO 50 mg Q12HR SOLITARIO Administration Montelukast Sodium 10 mg 06/19/24 09:00 06/19/24 08:22 Montelukast Sodium 10 Mg Tablet PO 10 mg DAILY SOLITARIO Administration Olmesartan 40 mg 06/19/24 09:00 06/19/24 08:36 Olmesartan Medoxomil 20 Mg Tablet PO 40 mg QAM SOLITARIO Administration Ondansetron HCl 4 mg 06/18/24 17:42 Ondansetron Inj 4 Mg/2 Ml Vial IV PUSH Q4H PRN Nausea Pantoprazole Sodium 40 mg 06/19/24 09:00 06/19/24 08:22 Pantoprazole 40 Mg Tablet PO 40 mg QAM SOLITARIO Administration Potassium Chloride 10 meq 06/19/24 09:00 06/19/24 08:22 Potassium Chloride 10 Meq Er Tablet PO 10 meq DAILY SOLITARIO Administration Tramadol HCl 100 mg 06/18/24 23:09 06/19/24 21:12 Tramadol Hcl (*Crx) 50 Mg Tablet PO 100 mg HS PRN Administration pain 4-10 Tramadol HCl 50 mg 06/18/24 23:09 Tramadol Hcl (*Crx) 50 Mg Tablet PO QAM PRN pain 4-10 Trazodone HCl 200 mg 06/18/24 23:15 06/19/24 21:09 Trazodone Hcl 50 Mg Tablet PO 200 mg HS SOLITARIO Administration Radiology Results: ITS Impressions Chest X-Ray 06/18/24 16:15 IMPRESSION: 1. No acute cardiopulmonary disease. Abdomen/Pelvis CT 06/18/24 17:06 IMPRESSION: Mural thickening with surrounding inflammatory change involving the distal descending/proximal sigmoid colons. Extraluminal air is identified communicating with the undersurface of the anterolateral abdominal wall. No gross perforation is present. No drainable fluid collection is noted. Additional findings suggesting early diverticulitis of the cecum and ascending colon, as detailed above. Hypovolemia. Anasarca. Labs Labs: Laboratory Results - last 24 hr 06/19/24 06/20/24 04:36 07:22 WBC 6.9 RBC 3.09 L Hgb 9.6 L Hct 31.1 L MCV 100.6 H MCH 31.1 MCHC 30.9 L RDW 16.4 H Plt Count 208 MPV 10.3 Sodium Cancelled 142 Potassium Cancelled 3.7 Chloride Cancelled 113 H Carbon Dioxide Cancelled 23 Anion Gap Cancelled 6 BUN Cancelled 19 H Creatinine Cancelled 1.25 H Estim Creat Clear Calc Cancelled 41 Estimated GFR Cancelled 42 L Glucose Cancelled 91 Calcium Cancelled 6.9 L Magnesium 3.2 H Total Bilirubin 0.9 Direct Bilirubin 0.0 AST 20 ALT 11 Alkaline Phosphatase 113 Troponin I 0.062 H* Total Protein 6.0 L Albumin 2.5 L
[2024-06-20] MEDS: MONTELUKAST SODIUM 10 MG TABLET PO (08:22)
[2024-06-20] MEDS: OLMESARTAN MEDOXOMIL 20 MG TABLET 40 MG PO (08:22)
[2024-06-20] MEDS: METOPROLOL TARTRATE 50 MG TAB PO ×2 (08:22→21:29)
[2024-06-20] MEDS: POTASSIUM CHLORIDE 10 MEQ ER TABLET PO (08:22)
[2024-06-20] MEDS: HEPARIN SODIUM 5,000 UNITS/ML VIAL 5000 UNITS SUB-Q ×2 (08:23→21:30)
[2024-06-20] MEDS: PANTOPRAZOLE 40 MG TABLET PO (08:23)
[2024-06-20 10:19] VITALS: O2SAT 100
[2024-06-20] MEDS: PIPERACILLN/TAZ 3.375GM/NS50ML 3.375 GM/50 ML BAG IVPB ×3 (12:57→23:44)
[2024-06-20 14:00] VITALS: BP 149/73; PULSE 73; RESP 18; TEMP 36.2; O2SAT 99
[2024-06-20] MEDS: ALPRAZolam (*CRX) 0.5 MG TABLET 1 MG PO (14:15)
[2024-06-20] MEDS: traMADol HCL (*CRX) 50 MG TABLET PO (14:16)
--- NOTE | 2024-06-20 15:54 | P.PNGS_ITS ---
Progress Note: A&P Assessment and Plan (1) Diverticulitis of intestine with perforation without abscess: Qualifiers: Diverticulitis site: large intestine Diverticulitis bleeding: without bleeding Qualified Code(s): K57.20 - Diverticulitis of large intestine with perforation and abscess without bleeding Code(s): K57.80 - Diverticulitis of intestine, part unspecified, with perforation and abscess without bleeding Status: Acute Assessment and Plan: * Clinically improving with IV antibiotics. WBC normal. She is having some diarrhea, but no excessive. Staff still attempting to collect C.diff sample. * Advanced to full liquids for today. * Continue antibiotics Plan I have discussed the patient's case and plan of care with Dr. Bunch. Subjective Subjective Date/Time Seen: 06/20/24 15:54 Patient reports: no new complaints, pain is less, tolerating liquids well, flatus, diarrhea and afebrile Interval history: The patient reports feeling tired. She was sleeping on my arrival and woke easily. She denies any abdominal pain at this time. She has been tolerating liquids well without any nausea or vomiting. She has had 4 liquid stools today. Per nursing, they have not been able to get a stool sample for the C.diff order because she has been incontinent of stool. Exam Const: General: comfortable and no acute distress Nutritional Appearance: obese Orientation/consciousness: patient oriented x3 GI: Inspection: non-distended, Pannus present and obesity GI Palp: Yes Soft to palpation, Yes Tenderness to palpation present (GI) (LLQ mild), No Guarding due to palpation present (GI) and No Rebound tenderness present Auscultation: normal bowel sounds Objective Data Vital Signs Vital Signs: Vital Signs - 24 hr 06/19/24 16:20 06/19/24 21:08 06/19/24 21:09 Temperature 97.4 F L 98.5 F Pulse Rate 65 79 80 Respiratory Rate 20 16 Blood Pressure 131/68 145/56 H Pulse Oximetry 99 100 Oxygen Delivery 06/20/24 05:52 06/20/24 10:19 06/20/24 14:00 Temperature 97.5 F L 97.2 F L Pulse Rate 73 73 Respiratory Rate 16 18 Blood Pressure 149/73 H 149/73 H Pulse Oximetry 100 100 99 Oxygen Delivery Room Air Intake/Output Intake/Output: Intake & Output 06/17/24 06/18/24 06/19/24 06/20/24 23:59 23:59 23:59 23:59 Intake Total 1150 2110 1907 Output Total 275 Balance 1150 1835 1907 Meds/Results Medications: Active Medications Generic Name Dose Route Start Last Admin Trade Name Freq PRN Reason Stop Dose Admin Acetaminophen 650 mg 06/18/24 17:42 Acetaminophen 325 Mg Tablet PO Q4H PRN Mild Pain (1-3) or Fever Alprazolam 1 mg 06/18/24 23:09 06/20/24 14:15 Alprazolam (*Crx) 0.5 Mg Tablet PO 1 mg QID PRN Administration anxiety Heparin Sodium (Porcine) 5,000 units 06/19/24 11:00 06/20/24 08:23 Heparin Sodium 5,000 Units/Ml Vial SUB-Q 5,000 units Q12HR SOLITARIO Administration Sodium Chloride 1,000 mls @ 80 mls/hr 06/18/24 17:45 06/20/24 01:00 Normal Saline Iv IV CONT 80 mls/hr .[id number] SOLITARIO Administration Piperacillin/Tazobactam/Dextrose 3.375 gm in 50 mls @ 100 mls/hr 06/20/24 12:00 06/20/24 12:57 Zosyn 3.375 Gm/Ns 50 Ml IVPB 100 mls/hr Q6H SOLITARIO Administration Levothyroxine Sodium 75 mcg 06/19/24 06:30 06/20/24 05:21 Levothyroxine Sodium 75 Mcg Tablet PO 75 mcg DAILY@0630 SOLITARIO Administration Meclizine HCl 12.5 mg 06/18/24 23:09 Meclizine Hcl 12.5 Mg Tablet PO TID PRN dizziness Metoprolol Tartrate 50 mg 06/18/24 23:10 06/20/24 08:22 Metoprolol Tartrate 50 Mg Tab PO 50 mg Q12HR SOLITARIO Administration Montelukast Sodium 10 mg 06/19/24 09:00 06/20/24 08:22 Montelukast Sodium 10 Mg Tablet PO 10 mg DAILY SOLITARIO Administration Olmesartan 40 mg 06/19/24 09:00 06/20/24 08:22 Olmesartan Medoxomil 20 Mg Tablet PO 40 mg QAM SOLITARIO Administration Ondansetron HCl 4 mg 06/18/24 17:42 Ondansetron Inj 4 Mg/2 Ml Vial IV PUSH Q4H PRN Nausea Pantoprazole Sodium 40 mg 06/19/24 09:00 06/20/24 08:23 Pantoprazole 40 Mg Tablet PO 40 mg QAM SOLITARIO Administration Potassium Chloride 10 meq 06/19/24 09:00 06/20/24 08:22 Potassium Chloride 10 Meq Er Tablet PO 10 meq DAILY SOLITARIO Administration Tramadol HCl 100 mg 06/18/24 23:09 06/19/24 21:12 Tramadol Hcl (*Crx) 50 Mg Tablet PO 100 mg HS PRN Administration pain 4-10 Tramadol HCl 50 mg 06/18/24 23:09 06/20/24 14:16 Tramadol Hcl (*Crx) 50 Mg Tablet PO 50 mg QAM PRN Administration pain 4-10 Trazodone HCl 200 mg 06/18/24 23:15 06/19/24 21:09 Trazodone Hcl 50 Mg Tablet PO 200 mg HS SOLITARIO Administration Radiology Results: ITS Impressions Chest X-Ray 06/18/24 16:15 IMPRESSION: 1. No acute cardiopulmonary disease. Abdomen/Pelvis CT 06/18/24 17:06 IMPRESSION: Mural thickening with surrounding inflammatory change involving the distal descending/proximal sigmoid colons. Extraluminal air is identified communicating with the undersurface of the anterolateral abdominal wall. No gross perforation is present. No drainable fluid collection is noted. Additional findings suggesting early diverticulitis of the cecum and ascending colon, as detailed above. Hypovolemia. Anasarca. Labs Labs: Laboratory Results - last 24 hr 06/20/24 07:22 WBC 6.9 RBC 3.09 L Hgb 9.6 L Hct 31.1 L MCV 100.6 H MCH 31.1 MCHC 30.9 L RDW 16.4 H Plt Count 208 MPV 10.3 Sodium 142 Potassium 3.7 Chloride 113 H Carbon Dioxide 23 Anion Gap 6 BUN 19 H Creatinine 1.25 H Estim Creat Clear Calc 41 Estimated GFR 42 L Glucose 91 Calcium 6.9 L
[2024-06-20 20:11] VITALS: BP 137/54; PULSE 75; RESP 16; TEMP 36.4; O2SAT 100
--- OUTSIDE RECORDS SUMMARY | 2024-06-20 20:25 | XMS_ITS | Clinical Summary ---
Author Organization [facility] Address [address] [place] [address]. [place], [place] [id number] [place] [id number] Care Team Providers Care Front Desk Auxiliary Name Role Phone Unavailable Primary Care Provider Unavailabl e Social History Tobacco Use Types Packs/Day Years Used Date Smoking Tobacco: Never Assessed Comments Unknown Sex and Gender Information Value Date Recorded Sex Assigned at Not on file Legal Sex Female 6:29 PM CDT Gender Identity Not on file Sexual Orientation Not on file Plan of Treatment Health Maintenance Due Date Last Done Comments Colorectal Cancer Screening Colonoscopy (10 Years) 1949 Hepatitis C 08/15/1967 DTaP, Tdap and Td Vaccines ( 1 - Tdap) 1968 Mammogram Screening 1989 Zoster Vaccines (1 of 2) 08/15/1999 Dexa Scan (General) 2014 Pneumococcal Vaccine: 65+ Ye ars (1 of 1 - PCV) 2014 COVID-19 Vaccine (2023-2 5 season) 2024 Influenza Adult (#1) 2024 RSV Immunization or 60+ Years (1 - 1-dose 75+ series) 2024 Meningococcal Vaccine Aged Out No siena joo eligible based on patient's age to complete this topic RSV Immunizations Under 20 Months Aged Out No longer eligible based on patient's age to complete this topic
[2024-06-20 21:29] VITALS: PULSE 75
[2024-06-20] MEDS: traZODone HCL 50 MG TABLET 200 MG PO (21:30)
[2024-06-21] MEDS: LEVOTHYROXINE SODIUM 75 MCG TABLET PO (05:26)
[2024-06-21] MEDS: PIPERACILLN/TAZ 3.375GM/NS50ML 3.375 GM/50 ML BAG IVPB ×2 (05:26→11:27)
[2024-06-21 05:35] VITALS: BP 134/61; PULSE 77; RESP 16; TEMP 36.7; O2SAT 99
[2024-06-21 06:31] LABS: Basophils Percent Auto 0.5 % (0.2-1.2); Eosinophils Absolute Auto 0.1 K/mm3 (0-0.3); Eosinophils Percent Auto 1.6 % (0-4.4); Hematocrit 31.6 % (37.0-47.0); Hemoglobin 9.9 g/dL (12.0-15.0); Immature Granulocyte Absolute 0.04 K/mm3 (0.00-0.031); Immature Granulocyte Percent A 0.5 % (0-0.5); Lymphocytes Absolute Auto 1.45 K/mm3 (0.9-3.2); Lymphocytes Percent Auto 19.4 % (18.3-44.2); Mean Corpuscular HGB Conc 31.3 g/dl (32-36); Mean Corpuscular Hemoglobin 32.4 pg (26-34); Mean Corpuscular Volume 103.3 fl (80-100); Mean Platelet Volume 10.5 fl (7.4-10.4); Monocytes Absolute Auto 0.6 K/mm3 (0.1-0.6); Monocytes Percent Auto 7.5 % (2.6-8.5); Neutrophils Absolute Auto 5.3 K/mm3 (1.3-6.7); Neutrophils Percent Auto 70.5 % (45.5-73.1); Platelet Count Result 240 k/mm3 (150-375); Red Blood Count 3.06 M/mm3 (4.2-5.4); Red Cell Distribution Width 16.8 % (11.5-14.5); White Blood Count 7.5 K/mm3 (4.5-10.0)
[2024-06-21 06:35] LABS: Alanine Aminotransferase 11 U/L (6-35); Alkaline Phosphatase 90 U/L (38-126); Anion Gap 6 mmol/L (4-12); Aspartate Amino Transferase 19 U/L (14-36); Bilirubin,Total 0.6 mg/dL (0.2-1.3); Blood Urea Nitrogen 17 mg/dL (7-17); Carbon Dioxide 23 mmol/L (22-30); Chloride 113 mmol/L (98-107); Estimated CRCL calculation 40 ml/min; Estimated Glomerular Filt Rate 40; Glucose 78 mg/dL (65-110); Magnesium 2.1 mg/dL (1.6-2.3); Potassium 3.2 mmol/L (3.4-5.0); Sodium 142 mmol/L (137-145)
[2024-06-21 07:11] LABS: Toxigenic C. Diff POSITIVE (NEGATIVE)
--- NOTE | 2024-06-21 11:15 | PM.PNGS ---
Progress Note: A&P Assessment and Plan (1) Diverticulitis of intestine with perforation without abscess: Qualifiers: Diverticulitis site: large intestine Diverticulitis bleeding: without bleeding Qualified Code(s): K57.20 - Diverticulitis of large intestine with perforation and abscess without bleeding Code(s): K57.80 - Diverticulitis of intestine, part unspecified, with perforation and abscess without bleeding Status: Acute Assessment and Plan: Clinically improving with IV antibiotics. WBC normal. No surgical indications at this time. Will see as needed. (2) C. difficile colitis: Code(s): A04.72 - Enterocolitis due to Clostridium difficile, not specified as recurrent Status: Acute Subjective Subjective Date/Time Seen: 06/21/24 11:15 Interval history: No significant abdominal pain. Tolerating diet. Having diarrhea. Exam Const: General: comfortable and no acute distress Nutritional Appearance: obese Orientation/consciousness: patient oriented x3 GI: Inspection: non-distended, Pannus present and obesity GI Palp: Yes Soft to palpation, Yes Tenderness to palpation present (GI) (LLQ mild), No Guarding due to palpation present (GI) and No Rebound tenderness present Auscultation: normal bowel sounds Objective Data Vital Signs Vital Signs: Vital Signs - 24 hr 06/20/24 14:00 06/20/24 20:11 06/20/24 21:29 Temperature 97.2 F L 97.5 F L Pulse Rate 73 75 75 Respiratory Rate 18 16 Blood Pressure 149/73 H 137/54 L Pulse Oximetry 99 100 06/21/24 05:35 Temperature 98.1 F Pulse Rate 77 Respiratory Rate 16 Blood Pressure 134/61 Pulse Oximetry 99 Intake/Output Intake/Output: Intake & Output 06/18/24 06/19/24 06/20/24 06/21/24 23:59 23:59 23:59 23:59 Intake Total 1150 2110 3307 1740 Output Total 275 Balance 1150 1835 3307 1740 Meds/Results Medications: Active Medications Generic Name Dose Route Start Last Admin Trade Name Freq PRN Reason Stop Dose Admin Acetaminophen 650 mg 06/18/24 17:42 Acetaminophen 325 Mg Tablet PO Q4H PRN Mild Pain (1-3) or Fever Alprazolam 1 mg 06/18/24 23:09 06/20/24 14:15 Alprazolam (*Crx) 0.5 Mg Tablet PO 1 mg QID PRN Administration anxiety Heparin Sodium (Porcine) 5,000 units 06/19/24 11:00 06/20/24 21:30 Heparin Sodium 5,000 Units/Ml Vial SUB-Q 5,000 units Q12HR SOLITARIO Administration Sodium Chloride 1,000 mls @ 80 mls/hr 06/18/24 17:45 06/21/24 11:07 Normal Saline Iv IV CONT Not Given .[id number] SOLITARIO Piperacillin/Tazobactam/Dextrose 3.375 gm in 50 mls @ 100 mls/hr 06/20/24 12:00 06/21/24 05:26 Zosyn 3.375 Gm/Ns 50 Ml IVPB 100 mls/hr Q6H SOLITARIO Administration Levothyroxine Sodium 75 mcg 06/19/24 06:30 06/21/24 05:26 Levothyroxine Sodium 75 Mcg Tablet PO 75 mcg DAILY@0630 SOLITARIO Administration Meclizine HCl 12.5 mg 06/18/24 23:09 Meclizine Hcl 12.5 Mg Tablet PO TID PRN dizziness Metoprolol Tartrate 50 mg 06/18/24 23:10 06/20/24 21:29 Metoprolol Tartrate 50 Mg Tab PO 50 mg Q12HR SOLITARIO Administration Montelukast Sodium 10 mg 06/19/24 09:00 06/20/24 08:22 Montelukast Sodium 10 Mg Tablet PO 10 mg DAILY SOLITARIO Administration Olmesartan 40 mg 06/19/24 09:00 06/20/24 08:22 Olmesartan Medoxomil 20 Mg Tablet PO 40 mg QAM SOLITARIO Administration Ondansetron HCl 4 mg 06/18/24 17:42 Ondansetron Inj 4 Mg/2 Ml Vial IV PUSH Q4H PRN Nausea Pantoprazole Sodium 40 mg 06/19/24 09:00 06/20/24 08:23 Pantoprazole 40 Mg Tablet PO 40 mg QAM SOLITARIO Administration Potassium Chloride 10 meq 06/19/24 09:00 06/20/24 08:22 Potassium Chloride 10 Meq Er Tablet PO 10 meq DAILY SOLITARIO Administration Tramadol HCl 100 mg 06/18/24 23:09 06/19/24 21:12 Tramadol Hcl (*Crx) 50 Mg Tablet PO 100 mg HS PRN Administration pain 4-10 Tramadol HCl 50 mg 06/18/24 23:09 06/20/24 14:16 Tramadol Hcl (*Crx) 50 Mg Tablet PO 50 mg QAM PRN Administration pain 4-10 Trazodone HCl 200 mg 06/18/24 23:15 06/20/24 21:30 Trazodone Hcl 50 Mg Tablet PO 200 mg HS SOLITARIO Administration Vancomycin HCl 125 mg 06/21/24 12:00 Vancomycin Hcl 125 Mg Oral Capsule PO Q6HR REPLACED BY [facility] Radiology Results: ITS Impressions Chest X-Ray 06/18/24 16:15 IMPRESSION: 1. No acute cardiopulmonary disease. Abdomen/Pelvis CT 06/18/24 17:06 IMPRESSION: Mural thickening with surrounding inflammatory change involving the distal descending/proximal sigmoid colons. Extraluminal air is identified communicating with the undersurface of the anterolateral abdominal wall. No gross perforation is present. No drainable fluid collection is noted. Additional findings suggesting early diverticulitis of the cecum and ascending colon, as detailed above. Hypovolemia. Anasarca. Labs Labs: Laboratory Results - last 24 hr 06/21/24 06/21/24 05:58 06:01 WBC 7.5 RBC 3.06 L Hgb 9.9 L Hct 31.6 L MCV 103.3 H MCH 32.4 MCHC 31.3 L RDW 16.8 H Plt Count 240 MPV 10.5 H Immature Gran % (Auto) 0.5 Neut % (Auto) 70.5 Lymph % (Auto) 19.4 [place] % (Auto) 7.5 Eos % (Auto) 1.6 Baso % (Auto) 0.5 Lymph # (Auto) 1.45 [place] # (Auto) 0.6 Eos # (Auto) 0.1 Baso # (Auto) 0.0 Abs Immat Gran (auto) 0.04 H Absolute Neuts (auto) 5.3 Absolute Nucleated RBC 0.000 Nucleated RBC % 0.0 Sodium 142 Potassium 3.2 L Chloride 113 H Carbon Dioxide 23 Anion Gap 6 BUN 17 Creatinine 1.31 H Estim Creat Clear Calc 40 Estimated GFR 40 L Glucose 78 Calcium 7.0 L Magnesium 2.1 Total Bilirubin 0.6 AST 19 ALT 11 Alkaline Phosphatase 90 Total Protein 5.0 L Albumin 2.0 L C. difficile (PCR) Positive A*
[2024-06-21] MEDS: VANCOMYCIN HCL 125 MG ORAL CAPSULE PO (11:28)
[2024-06-21 11:29] VITALS: PULSE 77
[2024-06-21] MEDS: METOPROLOL TARTRATE 50 MG TAB PO ×2 (11:29→21:21)
[2024-06-21] MEDS: SODIUM CHLORIDE 0.9% IV 1,000 ML 80 ML IV CONT (11:29)
[2024-06-21] MEDS: PANTOPRAZOLE 40 MG TABLET PO (11:30)
[2024-06-21] MEDS: POTASSIUM CHLORIDE 10 MEQ ER TABLET PO (11:30)
[2024-06-21] MEDS: MONTELUKAST SODIUM 10 MG TABLET PO (11:30)
[2024-06-21] MEDS: OLMESARTAN MEDOXOMIL 20 MG TABLET 40 MG PO (11:30)
[2024-06-21] MEDS: traMADol HCL (*CRX) 50 MG TABLET PO (11:55)
[2024-06-21] MEDS: HEPARIN SODIUM 5,000 UNITS/ML VIAL 5000 UNITS SUB-Q ×2 (11:55→21:21)
--- NOTE | 2024-06-21 12:58 | P.PNIM_ITS ---
Progress Note: A&P Assessment and Plan (1) Diverticulitis: Code(s): K57.92 - Diverticulitis of intestine, part unspecified, without perforation or abscess without bleeding Status: Acute Assessment and Plan: patient has previous history of diverticulitis with micro perforation no surgical intervention done at that time * CT abdomen showing ruled thickening with surrounding inflammatory changes in the distal descending proximal sigmoid colon with no perforation or drainable fluid collection * general surgery consulted On full liquid. Will advance as tolerated * continue IV Zosyn which will be switched to Augmentin * pain control * antiemetics * IV fluids will be continued and stop when able to tolerate diet * monitor electrolytes replenish as needed * surgery planned for serial abdominal exams (2) Elevated troponin: Code(s): R79.89 - Other specified abnormal findings of blood chemistry Status: Acute Assessment and Plan: patient's troponins were mildly elevated and trending down * likely ischemic demand 0.071>0.063> * EKG normal sinus rhythm no ST-T changes * patient pain denying chest pain (3) Diarrhea: Qualifiers: Diarrhea type: presumed infectious Qualified Code(s): R19.7 - Diarrhea, unspecified Code(s): R19.7 - Diarrhea, unspecified Status: Acute Assessment and Plan: patient does have previous history of C diff infection had multiple episodes of diarrhea prior to admission however has not had 1 since admission * C-diff culture came back positive next history of C diff back in 2021 Will start fidaxomicin (4) Abnormal urinalysis: Code(s): R82.90 - Unspecified abnormal findings in urine Status: Acute Assessment and Plan: * UA with leukocytes, urine wbc's, of 4+ bacteriuria * currently on IV Zosyn for diverticulitis should cover urinary tract infection pending cultures Urine culture with E coli susceptibility pending (5) Hypothyroidism: Qualifiers: Hypothyroidism type: unspecified Qualified Code(s): E03.9 - Hypothyroidism, unspecified Code(s): E03.9 - Hypothyroidism, unspecified Status: Acute Assessment and Plan: * resume patient's levothyroxine (6) CKD (chronic kidney disease): Qualifiers: Chronic kidney disease stage: unspecified stage Qualified Code(s): N18.9 - Chronic kidney disease, unspecified Code(s): N18.9 - Chronic kidney disease, unspecified Status: Chronic Assessment and Plan: * Gentle IV hydration. * CR at baseline 1.35 * Avoid nephrotoxic drugs. * Monitor antihypertensive drug therapy. * Avoid NSAIDs. * Routine CMP monitoring GFR. * Monitor electrolytes especially potassium. * Antibiotic doses depending on creatinine clearance. (7) Hypertension: Qualifiers: Hypertension type: primary hypertension Qualified Code(s): I10 - Essential (primary) hypertension Code(s): I10 - Essential (primary) hypertension Status: Chronic Assessment and Plan: * resume metoprolol (8) Gout attack: Qualifiers: Gout etiology: unspecified cause Gout site: foot Laterality: right Qualified Code(s): M10.9 - Gout, unspecified Code(s): M10.9 - Gout, unspecified Status: Acute Assessment and Plan: * patient was treated with colchicine Plan Chronic mild anemia no signs of bleeding. Stable counts. Code status: Full code per patient DVT prophylaxis: Heparin b.i.d. Stress ulcer prophylaxis: Protonix 40 daily PT/OT notes: PT/OT ordered Disposition: PT OT to see Subjective Date/time seen: 06/21/24 12:58 Interval history: no new compalints. diarrhea persists, abdominal pain improved. History of C diff in the past. Review of Systems Review of Systems: All systems reviewed & are unremarkable except as noted in HPI and below Exam Narrative: GENERAL: Well-appearing, well-nourished, and in no acute distress. HEAD: Normocephalic, atraumatic. EYES: PERRLA and EOMI. ENT: Nares clear, no rhinorrhea or epistaxis. Mucous membranes moist. NECK: Supple CHEST: Clear to auscultation. No respiratory distress HEART: Regular rate and rhythm. No murmur heard. Normal peripheral pulses. ABDOMEN: Soft, nontender, nondistended, normal active bowel sounds. EXTREMITIES: Normal range of motion. No edema. SKIN: Warm, dry, no rash. NEURO: No focal deficits. Alert and oriented x3. PSYCH: Normal mood and affect. Objective Data Vital Signs Vital Signs: Vital Signs - 24 hr 06/20/24 14:00 06/20/24 20:11 06/20/24 21:29 Temperature 97.2 F L 97.5 F L Pulse Rate 73 75 75 Respiratory Rate 18 16 Blood Pressure 149/73 H 137/54 L Pulse Oximetry 99 100 Oxygen Delivery 06/21/24 05:35 06/21/24 10:50 06/21/24 11:29 Temperature 98.1 F Pulse Rate 77 77 Respiratory Rate 16 Blood Pressure 134/61 Pulse Oximetry 99 Oxygen Delivery Room Air Intake/Output Intake/Output: Intake & Output 06/18/24 06/19/24 06/20/24 06/21/24 23:59 23:59 23:59 23:59 Intake Total 1150 2110 3307 1840 Output Total 275 Balance 1150 1835 3307 1840 Meds/Results Medications: Active Medications Generic Name Dose Route Start Last Admin Trade Name Freq PRN Reason Stop Dose Admin Acetaminophen 650 mg 06/18/24 17:42 Acetaminophen 325 Mg Tablet PO Q4H PRN Mild Pain (1-3) or Fever Alprazolam 1 mg 06/18/24 23:09 06/20/24 14:15 Alprazolam (*Crx) 0.5 Mg Tablet PO 1 mg QID PRN Administration anxiety Heparin Sodium (Porcine) 5,000 units 06/19/24 11:00 06/21/24 11:55 Heparin Sodium 5,000 Units/Ml Vial SUB-Q 5,000 units Q12HR SOLITARIO Administration Sodium Chloride 1,000 mls @ 80 mls/hr 06/18/24 17:45 06/21/24 11:29 Normal Saline Iv IV CONT 80 mls/hr .[id number] SOLITARIO Administration Piperacillin/Tazobactam/Dextrose 3.375 gm in 50 mls @ 100 mls/hr 06/20/24 12:00 06/21/24 11:57 Zosyn 3.375 Gm/Ns 50 Ml IVPB Infused Q6H SOLITARIO Infusion Levothyroxine Sodium 75 mcg 06/19/24 06:30 06/21/24 05:26 Levothyroxine Sodium 75 Mcg Tablet PO 75 mcg DAILY@0630 SOLITARIO Administration Meclizine HCl 12.5 mg 06/18/24 23:09 Meclizine Hcl 12.5 Mg Tablet PO TID PRN dizziness Metoprolol Tartrate 50 mg 06/18/24 23:10 06/21/24 11:29 Metoprolol Tartrate 50 Mg Tab PO 50 mg Q12HR SOLITARIO Administration Montelukast Sodium 10 mg 06/19/24 09:00 06/21/24 11:30 Montelukast Sodium 10 Mg Tablet PO 10 mg DAILY SOLITARIO Administration Olmesartan 40 mg 06/19/24 09:00 06/21/24 11:30 Olmesartan Medoxomil 20 Mg Tablet PO 40 mg QAM SOLITARIO Administration Ondansetron HCl 4 mg 06/18/24 17:42 Ondansetron Inj 4 Mg/2 Ml Vial IV PUSH Q4H PRN Nausea Pantoprazole Sodium 40 mg 06/19/24 09:00 06/21/24 11:30 Pantoprazole 40 Mg Tablet PO 40 mg QAM SOLITARIO Administration Potassium Chloride 10 meq 06/19/24 09:00 06/21/24 11:30 Potassium Chloride 10 Meq Er Tablet PO 10 meq DAILY SOLITARIO Administration Tramadol HCl 100 mg 06/18/24 23:09 06/19/24 21:12 Tramadol Hcl (*Crx) 50 Mg Tablet PO 100 mg HS PRN Administration pain 4-10 Tramadol HCl 50 mg 06/18/24 23:09 06/21/24 11:55 Tramadol Hcl (*Crx) 50 Mg Tablet PO 50 mg QAM PRN Administration pain 4-10 Trazodone HCl 200 mg 06/18/24 23:15 06/20/24 21:30 Trazodone Hcl 50 Mg Tablet PO 200 mg HS SOLITARIO Administration Vancomycin HCl 125 mg 06/21/24 12:00 06/21/24 11:28 Vancomycin Hcl 125 Mg Oral Capsule PO 125 mg Q6HR SOLITARIO Administration Radiology Results: ITS Impressions Chest X-Ray 06/18/24 16:15 IMPRESSION: 1. No acute cardiopulmonary disease. Abdomen/Pelvis CT 06/18/24 17:06 IMPRESSION: Mural thickening with surrounding inflammatory change involving the distal descending/proximal sigmoid colons. Extraluminal air is identified communicating with the undersurface of the anterolateral abdominal wall. No gross perforation is present. No drainable fluid collection is noted. Additional findings suggesting early diverticulitis of the cecum and ascending colon, as detailed above. Hypovolemia. Anasarca. Labs Labs: Laboratory Results - last 24 hr 06/21/24 06/21/24 05:58 06:01 WBC 7.5 RBC 3.06 L Hgb 9.9 L Hct 31.6 L MCV 103.3 H MCH 32.4 MCHC 31.3 L RDW 16.8 H Plt Count 240 MPV 10.5 H Immature Gran % (Auto) 0.5 Neut % (Auto) 70.5 Lymph % (Auto) 19.4 [place] % (Auto) 7.5 Eos % (Auto) 1.6 Baso % (Auto) 0.5 Lymph # (Auto) 1.45 [place] # (Auto) 0.6 Eos # (Auto) 0.1 Baso # (Auto) 0.0 Abs Immat Gran (auto) 0.04 H Absolute Neuts (auto) 5.3 Absolute Nucleated RBC 0.000 Nucleated RBC % 0.0 Sodium 142 Potassium 3.2 L Chloride 113 H Carbon Dioxide 23 Anion Gap 6 BUN 17 Creatinine 1.31 H Estim Creat Clear Calc 40 Estimated GFR 40 L Glucose 78 Calcium 7.0 L Magnesium 2.1 Total Bilirubin 0.6 AST 19 ALT 11 Alkaline Phosphatase 90 Total Protein 5.0 L Albumin 2.0 L C. difficile (PCR) Positive A*
[2024-06-21 14:00] VITALS: BP 120/62; PULSE 75; RESP 18; TEMP 36.1; O2SAT 100
--- NOTE | 2024-06-21 15:15 | PCPTNOTE ---
PT lenka attempted, Pt reports she was exhausted, states she was sitting up on the chair for 2 hours this morning already. Refused to get up at this time. Per Nursing, They Maxi-Stand her from the chair to the bed prior to room transfer from [facility] to [facility].
[2024-06-21] MEDS: FIDAXOMICIN 200 MG TABLET PO ×2 (17:41→21:21)
[2024-06-21 20:00] VITALS: PULSE 80; RESP 12; O2SAT 98
[2024-06-21 20:57] VITALS: BP 103/62; PULSE 80; RESP 12; TEMP 36.2; O2SAT 98
[2024-06-21 21:21] VITALS: PULSE 80
[2024-06-21] MEDS: AMOXICILLIN/CLAVULANATE K 875-125 MG TAB 1 TABLET PO (21:21)
[2024-06-21] MEDS: traZODone HCL 50 MG TABLET 200 MG PO (21:21)
[2024-06-21] MEDS: traMADol HCL (*CRX) 50 MG TABLET 100 MG PO (21:21)
[2024-06-21] MEDS: ALPRAZolam (*CRX) 0.5 MG TABLET 1 MG PO (21:22)
[2024-06-22] MEDS: SODIUM CHLORIDE 0.9% IV 1,000 ML 80 ML IV CONT (02:41)
[2024-06-22 05:40] VITALS: BP 103/60; PULSE 74; RESP 13; TEMP 36.3; O2SAT 95
[2024-06-22] MEDS: LEVOTHYROXINE SODIUM 75 MCG TABLET PO (06:10)
[2024-06-22 07:07] LABS: Basophils Percent Auto 0.4 % (0.2-1.2); Eosinophils Absolute Auto 0.1 K/mm3 (0-0.3); Eosinophils Percent Auto 1.4 % (0-4.4); Hematocrit 29.6 % (37.0-47.0); Immature Granulocyte Absolute 0.07 K/mm3 (0.00-0.031); Immature Granulocyte Percent A 0.9 % (0-0.5); Lymphocytes Absolute Auto 1.56 K/mm3 (0.9-3.2); Lymphocytes Percent Auto 20.2 % (18.3-44.2); Mean Corpuscular HGB Conc 30.4 g/dl (32-36); Mean Corpuscular Hemoglobin 31.7 pg (26-34); Mean Corpuscular Volume 104.2 fl (80-100); Mean Platelet Volume 10.4 fl (7.4-10.4); Monocytes Absolute Auto 0.6 K/mm3 (0.1-0.6); Monocytes Percent Auto 7.6 % (2.6-8.5); Neutrophils Absolute Auto 5.4 K/mm3 (1.3-6.7); Neutrophils Percent Auto 69.5 % (45.5-73.1); Platelet Count Result 214 k/mm3 (150-375); Red Blood Count 2.84 M/mm3 (4.2-5.4); Red Cell Distribution Width 16.7 % (11.5-14.5); White Blood Count 7.7 K/mm3 (4.5-10.0)
[2024-06-22 07:21] LABS: Alanine Aminotransferase 9 U/L (6-35); Albumin Level 1.9 g/dL (3.5-5.1); Alkaline Phosphatase 78 U/L (38-126); Anion Gap 8 mmol/L (4-12); Aspartate Amino Transferase 19 U/L (14-36); Bilirubin,Total 0.4 mg/dL (0.2-1.3); Blood Urea Nitrogen 15 mg/dL (7-17); Calcium 6.9 mg/dL (8.4-10.2); Carbon Dioxide 16 mmol/L (22-30); Chloride 116 mmol/L (98-107); Estimated CRCL calculation 40 ml/min; Estimated Glomerular Filt Rate 40; Glucose 71 mg/dL (65-110); Magnesium 2.2 mg/dL (1.6-2.3); Potassium 3.5 mmol/L (3.4-5.0); Sodium 140 mmol/L (137-145)
--- NOTE | 2024-06-22 10:25 | P.PNIM_ITS ---
Progress Note: A&P Assessment and Plan (1) Diverticulitis: Code(s): K57.92 - Diverticulitis of intestine, part unspecified, without perforation or abscess without bleeding Status: Acute Assessment and Plan: patient has previous history of diverticulitis with micro perforation no surgical intervention done at that time * CT abdomen showing ruled thickening with surrounding inflammatory changes in the distal descending proximal sigmoid colon with no perforation or drainable fluid collection * general surgery consulted On full liquid. Will advance as tolerated and tolerating we * continue IV Zosyn which will be switched to Augmentin * pain control * antiemetics * IV fluids will be continued and stop when able to tolerate diet * monitor electrolytes replenish as needed * surgery planned for serial abdominal exams (2) Elevated troponin: Code(s): R79.89 - Other specified abnormal findings of blood chemistry Status: Acute Assessment and Plan: patient's troponins were mildly elevated and trending down * likely ischemic demand 0.071>0.063> * EKG normal sinus rhythm no ST-T changes * patient pain denying chest pain (3) Diarrhea: Qualifiers: Diarrhea type: presumed infectious Qualified Code(s): R19.7 - Diarrhea, unspecified Code(s): R19.7 - Diarrhea, unspecified Status: Acute Assessment and Plan: patient does have previous history of C diff infection had multiple episodes of diarrhea prior to admission however has not had 1 since admission * C-diff culture came back positive next history of C diff back in 2021 Started on vancomycin oral. Fidaxomicin not covered (4) Abnormal urinalysis: Code(s): R82.90 - Unspecified abnormal findings in urine Status: Acute Assessment and Plan: * UA with leukocytes, urine wbc's, of 4+ bacteriuria * currently on IV Zosyn for diverticulitis should cover urinary tract infection pending cultures Urine culture with E coli susceptible to Augmentin (5) Hypothyroidism: Qualifiers: Hypothyroidism type: unspecified Qualified Code(s): E03.9 - Hypothyroidism, unspecified Code(s): E03.9 - Hypothyroidism, unspecified Status: Acute Assessment and Plan: * resume patient's levothyroxine (6) CKD (chronic kidney disease): Qualifiers: Chronic kidney disease stage: unspecified stage Qualified Code(s): N18.9 - Chronic kidney disease, unspecified Code(s): N18.9 - Chronic kidney disease, unspecified Status: Chronic Assessment and Plan: * Gentle IV hydration which was completed. * CR at baseline 1.35 * Avoid nephrotoxic drugs. * Monitor antihypertensive drug therapy. * Avoid NSAIDs. * Routine CMP monitoring GFR. * Monitor electrolytes especially potassium. * Antibiotic doses depending on creatinine clearance. (7) Hypertension: Qualifiers: Hypertension type: primary hypertension Qualified Code(s): I10 - Essential (primary) hypertension Code(s): I10 - Essential (primary) hypertension Status: Chronic Assessment and Plan: * resume metoprolol (8) Gout attack: Qualifiers: Gout site: foot Gout etiology: unspecified cause Laterality: right Qualified Code(s): M10.9 - Gout, unspecified Code(s): M10.9 - Gout, unspecified Status: Acute Assessment and Plan: * patient was treated with colchicine Plan Chronic mild anemia no signs of bleeding. Stable counts. Code status: Full code per patient DVT prophylaxis: Heparin b.i.d. Stress ulcer prophylaxis: Protonix 40 daily PT/OT notes: PT/OT ordered Disposition: PT OT to see Subjective Date/time seen: 06/22/24 10:25 Interval history: Patient continues to have diarrhea. Three had 4 episodes yesterday. Denies any abdominal pain. Denies nausea vomiting. Tolerating diet. Labs reviewed. Review of Systems Review of Systems: All systems reviewed & are unremarkable except as noted in HPI and below Exam Narrative: GENERAL: Well-appearing, well-nourished, and in no acute distress. HEAD: Normocephalic, atraumatic. EYES: PERRLA and EOMI. ENT: Nares clear, no rhinorrhea or epistaxis. Mucous membranes moist. NECK: Supple CHEST: Clear to auscultation. No respiratory distress HEART: Regular rate and rhythm. No murmur heard. Normal peripheral pulses. ABDOMEN: Soft, nontender, nondistended, normal active bowel sounds. EXTREMITIES: Normal range of motion. No edema. SKIN: Warm, dry, no rash. NEURO: No focal deficits. Alert and oriented x3. PSYCH: Normal mood and affect. Objective Data Vital Signs Vital Signs: Vital Signs - 24 hr 06/21/24 10:50 06/21/24 11:29 06/21/24 14:00 Temperature 96.9 F L Pulse Rate 77 75 Respiratory Rate 18 Blood Pressure 120/62 Pulse Oximetry 100 Oxygen Delivery Room Air 06/21/24 20:00 06/21/24 20:57 06/21/24 21:21 Temperature 97.1 F L Pulse Rate 80 80 80 Respiratory Rate 12 12 Blood Pressure 103/62 Pulse Oximetry 98 98 Oxygen Delivery Room Air 06/22/24 05:40 Temperature 97.4 F L Pulse Rate 74 Respiratory Rate 13 Blood Pressure 103/60 Pulse Oximetry 95 Oxygen Delivery Intake/Output Intake/Output: Intake & Output 06/19/24 06/20/24 06/21/24 06/22/24 23:59 23:59 23:59 23:59 Intake Total 2110 3307 3320 550 Output Total 275 Balance 1835 3307 3320 550 Meds/Results Medications: Active Medications Generic Name Dose Route Start Last Admin Trade Name Freq PRN Reason Stop Dose Admin Acetaminophen 650 mg 06/18/24 17:42 Acetaminophen 325 Mg Tablet PO Q4H PRN Mild Pain (1-3) or Fever Alprazolam 1 mg 06/18/24 23:09 06/21/24 21:22 Alprazolam (*Crx) 0.5 Mg Tablet PO 1 mg QID PRN Administration anxiety Amoxicillin/Clavulanate Potassium 1 tablet 06/21/24 19:00 06/21/24 21:21 Amoxicillin/Clavulanate K 875-125 Mg Tab PO 06/25/24 23:59 1 tablet Q12HR SOLITARIO Administration Fidaxomicin 200 mg 06/21/24 13:25 06/21/24 21:21 Fidaxomicin 200 Mg Tablet PO 06/30/24 21:01 200 mg Q12HR SOLITARIO Administration Heparin Sodium (Porcine) 5,000 units 06/19/24 11:00 06/21/24 21:21 Heparin Sodium 5,000 Units/Ml Vial SUB-Q 5,000 units Q12HR SOLITARIO Administration Sodium Chloride 1,000 mls @ 80 mls/hr 06/18/24 17:45 06/22/24 02:41 Normal Saline Iv IV CONT 80 mls/hr .[id number] SOLITARIO Administration Levothyroxine Sodium 75 mcg 06/19/24 06:30 06/22/24 06:10 Levothyroxine Sodium 75 Mcg Tablet PO 75 mcg DAILY@0630 SOLITARIO Administration Meclizine HCl 12.5 mg 06/18/24 23:09 Meclizine Hcl 12.5 Mg Tablet PO TID PRN dizziness Metoprolol Tartrate 50 mg 06/18/24 23:10 06/21/24 21:21 Metoprolol Tartrate 50 Mg Tab PO 50 mg Q12HR SOLITARIO Administration Montelukast Sodium 10 mg 06/19/24 09:00 06/21/24 11:30 Montelukast Sodium 10 Mg Tablet PO 10 mg DAILY SOLITARIO Administration Olmesartan 40 mg 06/19/24 09:00 06/21/24 11:30 Olmesartan Medoxomil 20 Mg Tablet PO 40 mg QAM [facility]ITARIO Administration Ondansetron HCl 4 mg 06/18/24 17:42 Ondansetron Inj 4 Mg/2 Ml Vial IV PUSH Q4H PRN Nausea Pantoprazole Sodium 40 mg 06/19/24 09:00 06/21/24 11:30 Pantoprazole 40 Mg Tablet PO 40 mg QAM [facility]ITARIO Administration Potassium Chloride 10 meq 06/19/24 09:00 06/21/24 11:30 Potassium Chloride 10 Meq Er Tablet PO 10 meq DAILY SOLITARIO Administration Tramadol HCl 100 mg 06/18/24 23:09 06/21/24 21:21 Tramadol Hcl (*Crx) 50 Mg Tablet PO 100 mg HS PRN Administration pain 4-10 Tramadol HCl 50 mg 06/18/24 23:09 06/21/24 11:55 Tramadol Hcl (*Crx) 50 Mg Tablet PO 50 mg QAM PRN Administration pain 4-10 Trazodone HCl 200 mg 06/18/24 23:15 06/21/24 21:21 Trazodone Hcl 50 Mg Tablet PO 200 mg HS SOLITARIO Administration Radiology Results: ITS Impressions Chest X-Ray 06/18/24 16:15 IMPRESSION: 1. No acute cardiopulmonary disease. Abdomen/Pelvis CT 06/18/24 17:06 IMPRESSION: Mural thickening with surrounding inflammatory change involving the distal descending/proximal sigmoid colons. Extraluminal air is identified communicating with the undersurface of the anterolateral abdominal wall. No gross perforation is present. No drainable fluid collection is noted. Additional findings suggesting early diverticulitis of the cecum and ascending colon, as detailed above. Hypovolemia. Anasarca. Labs Labs: Laboratory Results - last 24 hr 06/22/24 07:00 WBC 7.7 RBC 2.84 L Hgb 9.0 L Hct 29.6 L MCV 104.2 H MCH 31.7 MCHC 30.4 L RDW 16.7 H Plt Count 214 MPV 10.4 Immature Gran % (Auto) 0.9 H Neut % (Auto) 69.5 Lymph % (Auto) 20.2 [place] % (Auto) 7.6 Eos % (Auto) 1.4 Baso % (Auto) 0.4 Lymph # (Auto) 1.56 [place] # (Auto) 0.6 Eos # (Auto) 0.1 Baso # (Auto) 0.0 Abs Immat Gran (auto) 0.07 H Absolute Neuts (auto) 5.4 Absolute Nucleated RBC 0.000 Nucleated RBC % 0.0 Sodium 140 Potassium 3.5 Chloride 116 H Carbon Dioxide 16 L Anion Gap 8 BUN 15 Creatinine 1.29 H Estim Creat Clear Calc 40 Estimated GFR 40 L Glucose 71 Calcium 6.9 L Magnesium 2.2 Total Bilirubin 0.4 AST 19 ALT 9 Alkaline Phosphatase 78 Total Protein 5.0 L Albumin 1.9 L
[2024-06-22] MEDS: PANTOPRAZOLE 40 MG TABLET PO (11:02)
[2024-06-22] MEDS: HEPARIN SODIUM 5,000 UNITS/ML VIAL 5000 UNITS SUB-Q ×2 (11:02→21:09)
[2024-06-22] MEDS: SODIUM BICARBONATE TAB 650 MG TABLET PO ×2 (11:02→18:20)
[2024-06-22] MEDS: MONTELUKAST SODIUM 10 MG TABLET PO (11:02)
[2024-06-22] MEDS: OLMESARTAN MEDOXOMIL 20 MG TABLET 40 MG PO (11:02)
[2024-06-22 11:03] VITALS: PULSE 74
[2024-06-22] MEDS: METOPROLOL TARTRATE 50 MG TAB PO ×2 (11:03→21:09)
[2024-06-22] MEDS: FIDAXOMICIN 200 MG TABLET PO ×2 (11:03→21:09)
[2024-06-22] MEDS: AMOXICILLIN/CLAVULANATE K 875-125 MG TAB 1 TABLET PO ×2 (11:03→21:09)
[2024-06-22] MEDS: POTASSIUM CHLORIDE 10 MEQ ER TABLET PO (11:03)
[2024-06-22] MEDS: traMADol HCL (*CRX) 50 MG TABLET PO (11:04)
[2024-06-22] MEDS: POTASSIUM CHLORIDE 20 MEQ ER TABLET 40 MEQ PO (11:07)
[2024-06-22 14:00] VITALS: BP 137/59; PULSE 80; RESP 18; TEMP 36.4; O2SAT 99
[2024-06-22 20:00] VITALS: PULSE 72; RESP 18; O2SAT 99
[2024-06-22 21:09] VITALS: PULSE 72
[2024-06-22] MEDS: traZODone HCL 50 MG TABLET 200 MG PO (21:09)
[2024-06-22] MEDS: ALPRAZolam (*CRX) 0.5 MG TABLET 1 MG PO (21:10)
[2024-06-22] MEDS: traMADol HCL (*CRX) 50 MG TABLET 100 MG PO (21:10)
[2024-06-22 22:00] VITALS: BP 131/83; PULSE 83; RESP 12; TEMP 36.6; O2SAT 100
[2024-06-22] MEDS: ONDANSETRON INJ 4 MG/2 ML VIAL IV PUSH (22:00)
[2024-06-23] MEDS: SODIUM CHLORIDE 0.9% IV 1,000 ML 80 ML IV CONT (03:21)
[2024-06-23] MEDS: LEVOTHYROXINE SODIUM 75 MCG TABLET PO (05:30)
[2024-06-23 05:56] VITALS: BP 126/87; PULSE 81; RESP 12; TEMP 36.3; O2SAT 99
[2024-06-23 07:53] LABS: Basophils Percent Auto 0.3 % (0.2-1.2); Eosinophils Absolute Auto 0.1 K/mm3 (0-0.3); Eosinophils Percent Auto 1.9 % (0-4.4); Hematocrit 29.5 % (37.0-47.0); Hemoglobin 8.9 g/dL (12.0-15.0); Immature Granulocyte Absolute 0.07 K/mm3 (0.00-0.031); Immature Granulocyte Percent A 0.9 % (0-0.5); Lymphocytes Absolute Auto 1.41 K/mm3 (0.9-3.2); Lymphocytes Percent Auto 18.8 % (18.3-44.2); Mean Corpuscular HGB Conc 30.2 g/dl (32-36); Mean Corpuscular Volume 102.8 fl (80-100); Mean Platelet Volume 10.1 fl (7.4-10.4); Monocytes Absolute Auto 0.6 K/mm3 (0.1-0.6); Monocytes Percent Auto 7.6 % (2.6-8.5); Neutrophils Absolute Auto 5.3 K/mm3 (1.3-6.7); Neutrophils Percent Auto 70.5 % (45.5-73.1); Platelet Count Result 215 k/mm3 (150-375); Red Blood Count 2.87 M/mm3 (4.2-5.4); Red Cell Distribution Width 17.2 % (11.5-14.5); White Blood Count 7.5 K/mm3 (4.5-10.0)
[2024-06-23 08:18] LABS: Alanine Aminotransferase 10 U/L (6-35); Albumin Level 1.9 g/dL (3.5-5.1); Alkaline Phosphatase 80 U/L (38-126); Anion Gap 4 mmol/L (4-12); Aspartate Amino Transferase 17 U/L (14-36); Bilirubin,Total 0.4 mg/dL (0.2-1.3); Blood Urea Nitrogen 15 mg/dL (7-17); Calcium 7.4 mg/dL (8.4-10.2); Carbon Dioxide 22 mmol/L (22-30); Chloride 117 mmol/L (98-107); Estimated CRCL calculation 36 ml/min; Estimated Glomerular Filt Rate 35; Glucose 77 mg/dL (65-110); Magnesium 1.8 mg/dL (1.6-2.3); Potassium 3.5 mmol/L (3.4-5.0); Sodium 143 mmol/L (137-145)
[2024-06-23] MEDS: AMOXICILLIN/CLAVULANATE K 875-125 MG TAB 1 TABLET PO (09:08)
[2024-06-23] MEDS: HEPARIN SODIUM 5,000 UNITS/ML VIAL 5000 UNITS SUB-Q ×2 (09:08→20:35)
[2024-06-23] MEDS: traMADol HCL (*CRX) 50 MG TABLET PO (09:08)
[2024-06-23] MEDS: FIDAXOMICIN 200 MG TABLET PO ×2 (09:08→20:36)
[2024-06-23 09:10] VITALS: PULSE 81
[2024-06-23] MEDS: PANTOPRAZOLE 40 MG TABLET PO (09:10)
[2024-06-23] MEDS: OLMESARTAN MEDOXOMIL 20 MG TABLET 40 MG PO (09:10)
[2024-06-23] MEDS: METOPROLOL TARTRATE 50 MG TAB PO ×2 (09:10→20:37)
[2024-06-23] MEDS: SODIUM BICARBONATE TAB 650 MG TABLET PO ×2 (09:11→18:39)
[2024-06-23] MEDS: POTASSIUM CHLORIDE 10 MEQ ER TABLET PO (09:11)
[2024-06-23] MEDS: MONTELUKAST SODIUM 10 MG TABLET PO (09:11)
--- NOTE | 2024-06-23 13:45 | P.PNIM_ITS ---
Progress Note: A&P Assessment and Plan (1) Diverticulitis: Code(s): K57.92 - Diverticulitis of intestine, part unspecified, without perforation or abscess without bleeding Status: Acute Assessment and Plan: patient has previous history of diverticulitis with micro perforation no surgical intervention done at that time * CT abdomen showing ruled thickening with surrounding inflammatory changes in the distal descending proximal sigmoid colon with no perforation or drainable fluid collection * general surgery consulted On full liquid. Will advance as tolerated and tolerating we * continue IV Zosyn which will be switched to Augmentin. diarrhea is not improving. Her diverticulitis is presumed to be more C diff related since he did came back positive will stop Augmentin at this point. * pain control * antiemetics * IV fluids will be continued and stop when able to tolerate diet * monitor electrolytes replenish as needed * surgery planned for serial abdominal exams (2) Elevated troponin: Code(s): R79.89 - Other specified abnormal findings of blood chemistry Status: Acute Assessment and Plan: patient's troponins were mildly elevated and trending down * likely ischemic demand 0.071>0.063> * EKG normal sinus rhythm no ST-T changes * patient pain denying chest pain (3) Diarrhea: Qualifiers: Diarrhea type: presumed infectious Qualified Code(s): R19.7 - Diarrhea, unspecified Code(s): R19.7 - Diarrhea, unspecified Status: Acute Assessment and Plan: patient does have previous history of C diff infection had multiple episodes of diarrhea prior to admission however has not had 1 since admission * C-diff culture came back positive next history of C diff back in 2021 Started on fidaxomicin Diarrhea still persistent. Add probiotics discontinue Augmentin as diverticulitis likely severe as WBC count is normal (4) Abnormal urinalysis: Code(s): R82.90 - Unspecified abnormal findings in urine Status: Acute Assessment and Plan: * UA with leukocytes, urine wbc's, of 4+ bacteriuria * currently on IV Zosyn for diverticulitis should cover urinary tract infection pending cultures Urine culture with E coli susceptible to Augmentin (5) Hypothyroidism: Qualifiers: Hypothyroidism type: unspecified Qualified Code(s): E03.9 - Hypothyroidism, unspecified Code(s): E03.9 - Hypothyroidism, unspecified Status: Acute Assessment and Plan: * resume patient's levothyroxine (6) CKD (chronic kidney disease): Qualifiers: Chronic kidney disease stage: unspecified stage Qualified Code(s): N18.9 - Chronic kidney disease, unspecified Code(s): N18.9 - Chronic kidney disease, unspecified Status: Chronic Assessment and Plan: * Gentle IV hydration which was completed. * CR at baseline 1.35 * Avoid nephrotoxic drugs. * Monitor antihypertensive drug therapy. * Avoid NSAIDs. * Routine CMP monitoring GFR. * Monitor electrolytes especially potassium. * Antibiotic doses depending on creatinine clearance. (7) Hypertension: Qualifiers: Hypertension type: primary hypertension Qualified Code(s): I10 - Essential (primary) hypertension Code(s): I10 - Essential (primary) hypertension Status: Chronic Assessment and Plan: * resume metoprolol (8) Gout attack: Qualifiers: Gout site: foot Gout etiology: unspecified cause Laterality: right Qualified Code(s): M10.9 - Gout, unspecified Code(s): M10.9 - Gout, unspecified Status: Acute Assessment and Plan: * patient was treated with colchicine Plan Chronic mild anemia no signs of bleeding. Stable counts. Code status: Full code per patient DVT prophylaxis: Heparin b.i.d. Stress ulcer prophylaxis: Protonix 40 daily PT/OT notes: PT/OT ordered Disposition: PT OT to see Subjective Date/time seen: 06/23/24 13:45 Interval history: Patient continues to have diarrhea. denies any abdominal pain. Tolerating diet. Her arms are puffier Review of Systems Review of Systems: All systems reviewed & are unremarkable except as noted in HPI and below Exam Narrative: GENERAL: Well-appearing, well-nourished, and in no acute distress. HEAD: Normocephalic, atraumatic. EYES: PERRLA and EOMI. ENT: Nares clear, no rhinorrhea or epistaxis. Mucous membranes moist. NECK: Supple CHEST: Clear to auscultation. No respiratory distress HEART: Regular rate and rhythm. No murmur heard. Normal peripheral pulses. ABDOMEN: Soft, nontender, nondistended, normal active bowel sounds. EXTREMITIES: Normal range of motion. No edema. SKIN: Warm, dry, no rash. NEURO: No focal deficits. Alert and oriented x3. PSYCH: Normal mood and affect. Objective Data Vital Signs Vital Signs: Vital Signs - 24 hr 06/22/24 14:00 06/22/24 20:00 06/22/24 21:09 Temperature 97.5 F L Pulse Rate 80 72 72 Respiratory Rate 18 18 Blood Pressure 137/59 L Pulse Oximetry 99 99 Oxygen Delivery Room Air 06/22/24 22:00 06/23/24 05:56 06/23/24 09:10 Temperature 97.9 F 97.3 F L Pulse Rate 83 81 81 Respiratory Rate 12 12 Blood Pressure 131/83 126/87 Pulse Oximetry 100 99 Oxygen Delivery Intake/Output Intake/Output: Intake & Output 06/20/24 06/21/24 06/22/24 06/23/24 23:59 23:59 23:59 23:59 Intake Total 3307 3320 2270 1630 Output Total 100 Balance 3307 3320 2170 1630 Meds/Results Medications: Active Medications Generic Name Dose Route Start Last Admin Trade Name Freq PRN Reason Stop Dose Admin Acetaminophen 650 mg 06/18/24 17:42 Acetaminophen 325 Mg Tablet PO Q4H PRN Mild Pain (1-3) or Fever Alprazolam 1 mg 06/18/24 23:09 06/22/24 21:10 Alprazolam (*Crx) 0.5 Mg Tablet PO 1 mg QID PRN Administration anxiety Amoxicillin/Clavulanate Potassium 1 tablet 06/21/24 19:00 06/23/24 09:08 Amoxicillin/Clavulanate K 875-125 Mg Tab PO 06/25/24 23:59 1 tablet Q12HR [facility]ITAR[facility] Administration Fidaxomicin 200 mg 06/21/24 13:25 06/23/24 09:08 Fidaxomicin 200 Mg Tablet PO 06/30/24 21:01 200 mg Q12HR SOLITARIO Administration Heparin Sodium (Porcine) 5,000 units 06/19/24 11:00 06/23/24 09:08 Heparin Sodium 5,000 Units/Ml Vial SUB-Q 5,000 units Q12HR SOLITARIO Administration Lactobacillus Acidophilus 1 tablet 06/23/24 13:00 Acidophilus/Bul[place]icus Chewable Tablet PO QID SOLITARIO Levothyroxine Sodium 75 mcg 06/19/24 06:30 06/23/24 05:30 Levothyroxine Sodium 75 Mcg Tablet PO 75 mcg DAILY@0630 [facility]ITAR[facility] Administration Meclizine HCl 12.5 mg 06/18/24 23:09 Meclizine Hcl 12.5 Mg Tablet PO TID PRN dizziness Metoprolol Tartrate 50 mg 06/18/24 23:10 06/23/24 09:10 Metoprolol Tartrate 50 Mg Tab PO 50 mg Q12HR [facility]ITARIO Administration Montelukast Sodium 10 mg 06/19/24 09:00 06/23/24 09:11 Montelukast Sodium 10 Mg Tablet PO 10 mg DAILY SOLITARIO Administration Olmesartan 40 mg 06/19/24 09:00 06/23/24 09:10 Olmesartan Medoxomil 20 Mg Tablet PO 40 mg QAM [facility]AR[facility] Administration Ondansetron HCl 4 mg 06/18/24 17:42 06/22/24 22:00 Ondansetron Inj 4 Mg/2 Ml Vial IV PUSH 4 mg Q4H PRN Administration Nausea Pantoprazole Sodium 40 mg 06/19/24 09:00 06/23/24 09:10 Pantoprazole 40 Mg Tablet PO 40 mg QAM [facility] Administration Potassium Chloride 10 meq 06/19/24 09:00 06/23/24 09:11 Potassium Chloride 10 Meq Er Tablet PO 10 meq DAILY SOLITARIO Administration Sodium Bicarbonate 650 mg 06/22/24 10:30 06/23/24 09:11 Sodium Bicarbonate Tab 650 Mg Tablet PO 650 mg BID SOLITARIO Administration Tramadol HCl 100 mg 06/18/24 23:09 06/22/24 21:10 Tramadol Hcl (*Crx) 50 Mg Tablet PO 100 mg HS PRN Administration pain 4-10 Tramadol HCl 50 mg 06/18/24 23:09 06/23/24 09:08 Tramadol Hcl (*Crx) 50 Mg Tablet PO 50 mg QAM PRN Administration pain 4-10 Trazodone HCl 200 mg 06/18/24 23:15 06/22/24 21:09 Trazodone Hcl 50 Mg Tablet PO 200 mg HS SOLITARIO Administration Radiology Results: ITS Impressions Chest X-Ray 06/18/24 16:15 IMPRESSION: 1. No acute cardiopulmonary disease. Abdomen/Pelvis CT 06/18/24 17:06 IMPRESSION: Mural thickening with surrounding inflammatory change involving the distal descending/proximal sigmoid colons. Extraluminal air is identified communicating with the undersurface of the anterolateral abdominal wall. No gross perforation is present. No drainable fluid collection is noted. Additional findings suggesting early diverticulitis of the cecum and ascending colon, as detailed above. Hypovolemia. Anasarca. Labs Labs: Laboratory Results - last 24 hr 06/23/24 07:32 WBC 7.5 RBC 2.87 L Hgb 8.9 L Hct 29.5 L MCV 102.8 H MCH 31.0 MCHC 30.2 L RDW 17.2 H Plt Count 215 MPV 10.1 Immature Gran % (Auto) 0.9 H Neut % (Auto) 70.5 Lymph % (Auto) 18.8 [place] % (Auto) 7.6 Eos % (Auto) 1.9 Baso % (Auto) 0.3 Lymph # (Auto) 1.41 [place] # (Auto) 0.6 Eos # (Auto) 0.1 Baso # (Auto) 0.0 Abs Immat Gran (auto) 0.07 H Absolute Neuts (auto) 5.3 Absolute Nucleated RBC 0.000 Nucleated RBC % 0.0 Sodium 143 Potassium 3.5 Chloride 117 H Carbon Dioxide 22 Anion Gap 4 BUN 15 Creatinine 1.47 H Estim Creat Clear Calc 36 Estimated GFR 35 L Glucose 77 Calcium 7.4 L Magnesium 1.8 Total Bilirubin 0.4 AST 17 ALT 10 Alkaline Phosphatase 80 Total Protein 5.0 L Albumin 1.9 L
[2024-06-23 14:00] VITALS: BP 123/53; PULSE 81; RESP 18; TEMP 36.6; O2SAT 99
[2024-06-23] MEDS: ACIDOPHILUS/BULGARICUS CHEWABLE TABLET 1 TABLET PO ×2 (18:39→20:35)
[2024-06-23 20:00] VITALS: PULSE 83; RESP 14; O2SAT 100
[2024-06-23 20:09] VITALS: BP 145/68; PULSE 83; RESP 14; TEMP 36.1; O2SAT 100
[2024-06-23] MEDS: traZODone HCL 50 MG TABLET 200 MG PO (20:36)
[2024-06-23] MEDS: ALPRAZolam (*CRX) 0.5 MG TABLET 1 MG PO (20:36)
[2024-06-23 20:37] VITALS: PULSE 83
[2024-06-24 03:58] VITALS: BP 125/59; PULSE 72; RESP 16; TEMP 36.2; O2SAT 98
[2024-06-24] MEDS: LEVOTHYROXINE SODIUM 75 MCG TABLET PO (05:51)
[2024-06-24 06:28] LABS: Basophils Percent Auto 0.4 % (0.2-1.2); Eosinophils Absolute Auto 0.2 K/mm3 (0-0.3); Eosinophils Percent Auto 2.4 % (0-4.4); Hematocrit 28.2 % (37.0-47.0); Hemoglobin 8.5 g/dL (12.0-15.0); Immature Granulocyte Absolute 0.08 K/mm3 (0.00-0.031); Immature Granulocyte Percent A 1.2 % (0-0.5); Lymphocytes Absolute Auto 1.71 K/mm3 (0.9-3.2); Lymphocytes Percent Auto 25.5 % (18.3-44.2); Mean Corpuscular HGB Conc 30.1 g/dl (32-36); Mean Corpuscular Hemoglobin 31.7 pg (26-34); Mean Corpuscular Volume 105.2 fl (80-100); Mean Platelet Volume 10.3 fl (7.4-10.4); Monocytes Absolute Auto 0.5 K/mm3 (0.1-0.6); Monocytes Percent Auto 7.9 % (2.6-8.5); Neutrophils Absolute Auto 4.2 K/mm3 (1.3-6.7); Neutrophils Percent Auto 62.6 % (45.5-73.1); Platelet Count Result 210 k/mm3 (150-375); Red Blood Count 2.68 M/mm3 (4.2-5.4); Red Cell Distribution Width 17.2 % (11.5-14.5); White Blood Count 6.7 K/mm3 (4.5-10.0)
[2024-06-24 06:43] LABS: Alanine Aminotransferase 10 U/L (6-35); Albumin Level 1.8 g/dL (3.5-5.1); Alkaline Phosphatase 81 U/L (38-126); Anion Gap 3 mmol/L (4-12); Aspartate Amino Transferase 16 U/L (14-36); Bilirubin,Total 0.4 mg/dL (0.2-1.3); Blood Urea Nitrogen 14 mg/dL (7-17); Calcium 7.3 mg/dL (8.4-10.2); Carbon Dioxide 22 mmol/L (22-30); Chloride 116 mmol/L (98-107); Estimated CRCL calculation 36 ml/min; Estimated Glomerular Filt Rate 35; Glucose 83 mg/dL (65-110); Magnesium 1.8 mg/dL (1.6-2.3); Potassium 3.6 mmol/L (3.4-5.0); Sodium 141 mmol/L (137-145)
[2024-06-24 06:53] LABS: Anisocytosis 1+; Macrocytosis 1+ (NORMAL); Platelet Estimate Adequate (Adequate)
[2024-06-24 06:54] LABS: Schistocytes None Seen
[2024-06-24] MEDS: OLMESARTAN MEDOXOMIL 20 MG TABLET 40 MG PO (09:16)
[2024-06-24] MEDS: METOPROLOL TARTRATE 50 MG TAB PO ×2 (09:16→21:33)
[2024-06-24] MEDS: ACIDOPHILUS/BULGARICUS CHEWABLE TABLET 1 TABLET PO ×4 (09:16→21:32)
[2024-06-24] MEDS: FIDAXOMICIN 200 MG TABLET PO ×2 (09:16→21:32)
[2024-06-24] MEDS: MONTELUKAST SODIUM 10 MG TABLET PO (09:16)
[2024-06-24] MEDS: PANTOPRAZOLE 40 MG TABLET PO (09:17)
[2024-06-24] MEDS: SODIUM BICARBONATE TAB 650 MG TABLET PO ×2 (09:17→17:09)
[2024-06-24] MEDS: POTASSIUM CHLORIDE 10 MEQ ER TABLET PO (09:17)
[2024-06-24] MEDS: HEPARIN SODIUM 5,000 UNITS/ML VIAL 5000 UNITS SUB-Q ×2 (09:17→21:31)
--- NOTE | 2024-06-24 09:33 | PCNFU ---
Nutrition Follow-Up Complete: Inadequate oral intake related to acute diverticulitis as evidenced by report of poor appetite 3 days, clear liquids Adequate PO intake at least 75% meals and supplements - Progressing, intakes 20-100%. Continue same goal Goal: Pt current nutrition is Low fiber diet, Ensure Compact Bid (220 kcal, 9 g protein). Nutrition recommendation: No new nutrition recommendations. Continue same nutrition care plan and orders. Agree with orders. Last recorded weight is 99.5 kg. Bowel Motility: +2 BM 06/23/24. Diarrhea continuing Labs Reviewed: Hgb 8.5, Hct 28.2, Alb 1.8, GFR 35, Cre 1.47 Meds Noted: Protonix, Zofran, Heparin Skin: No pressure injuries Additional Notes: Continues to have some diarrhea. Intakes improving. Continue same nutrition care plan and orders. Monitoring intakes, diet advancement, weights, labs, stool patterns, plan of care Follow up in 5 days
--- NOTE | 2024-06-24 12:17 | P.PNIM_ITS ---
Progress Note: A&P Assessment and Plan (1) Diverticulitis: Code(s): K57.92 - Diverticulitis of intestine, part unspecified, without perforation or abscess without bleeding Status: Acute Assessment and Plan: patient has previous history of diverticulitis with micro perforation no surgical intervention done at that time * CT abdomen showing ruled thickening with surrounding inflammatory changes in the distal descending proximal sigmoid colon with no perforation or drainable fluid collection * general surgery consulted On full liquid. Will advance as tolerated and tolerating we * continue IV Zosyn which will be switched to Augmentin. diarrhea is not improving. Her diverticulitis is presumed to be more C diff related since he did came back positive will stop Augmentin at this point. * pain control * antiemetics * IV fluids will be continued and stop when able to tolerate diet * monitor electrolytes replenish as needed * surgery planned for serial abdominal exams Labs stable. Abdominal examination stable (2) Elevated troponin: Code(s): R79.89 - Other specified abnormal findings of blood chemistry Status: Acute Assessment and Plan: patient's troponins were mildly elevated and trending down * likely ischemic demand 0.071>0.063> * EKG normal sinus rhythm no ST-T changes * patient pain denying chest pain (3) Diarrhea: Qualifiers: Diarrhea type: presumed infectious Qualified Code(s): R19.7 - Diarrhea, unspecified Code(s): R19.7 - Diarrhea, unspecified Status: Acute Assessment and Plan: patient does have previous history of C diff infection had multiple episodes of diarrhea prior to admission however has not had 1 since admission * C-diff culture came back positive next history of C diff back in 2021 Started on fidaxomicin Diarrhea still persistent. Add probiotics discontinue Augmentin as diverticulitis likely severe as WBC count is normal Formed stool yesterday per nursing staff. Will continue to monitor Continue fidaxomicin (4) Abnormal urinalysis: Code(s): R82.90 - Unspecified abnormal findings in urine Status: Acute Assessment and Plan: * UA with leukocytes, urine wbc's, of 4+ bacteriuria * currently on IV Zosyn for diverticulitis should cover urinary tract infection pending cultures Urine culture with E coli susceptible to Augmentin Will recheck urinalysis (5) Hypothyroidism: Qualifiers: Hypothyroidism type: unspecified Qualified Code(s): E03.9 - Hypothyroidism, unspecified Code(s): E03.9 - Hypothyroidism, unspecified Status: Acute Assessment and Plan: * resume patient's levothyroxine (6) CKD (chronic kidney disease): Qualifiers: Chronic kidney disease stage: unspecified stage Qualified Code(s): N18.9 - Chronic kidney disease, unspecified Code(s): N18.9 - Chronic kidney disease, unspecified Status: Chronic Assessment and Plan: * Gentle IV hydration which was completed. * CR at baseline 1.35 * Avoid nephrotoxic drugs. * Monitor antihypertensive drug therapy. * Avoid NSAIDs. * Routine CMP monitoring GFR. * Monitor electrolytes especially potassium. * Antibiotic doses depending on creatinine clearance. (7) Hypertension: Qualifiers: Hypertension type: primary hypertension Qualified Code(s): I10 - Essential (primary) hypertension Code(s): I10 - Essential (primary) hypertension Status: Chronic Assessment and Plan: * resume metoprolol (8) Gout attack: Qualifiers: Gout etiology: unspecified cause Gout site: foot Laterality: right Qualified Code(s): M10.9 - Gout, unspecified Code(s): M10.9 - Gout, unspecified Status: Acute Assessment and Plan: * patient was treated with colchicine Plan Chronic mild anemia no signs of bleeding. Stable counts. Hypoalbuminemia will give albumin. This also helps with NSR Code status: Full code per patient DVT prophylaxis: Heparin b.i.d. Stress ulcer prophylaxis: Protonix 40 daily PT/OT notes: PT/OT ordered Disposition: PT OT to see Subjective Date/time seen: 06/24/24 12:17 Interval history: Patient continues to have loose stool. 2 or 3 episodes per day per patient. Still loose and watery. Does not feel well and generalized weakness persist. However nurse reports that she had a formed stool yesterday. No further bowel movement today. Review of Systems Review of Systems: All systems reviewed & are unremarkable except as noted in HPI and below Exam Narrative: GENERAL: Well-appearing, well-nourished, and in no acute distress. HEAD: Normocephalic, atraumatic. EYES: PERRLA and EOMI. ENT: Nares clear, no rhinorrhea or epistaxis. Mucous membranes moist. NECK: Supple CHEST: Clear to auscultation. No respiratory distress HEART: Regular rate and rhythm. No murmur heard. Normal peripheral pulses. ABDOMEN: Soft, nontender, nondistended, normal active bowel sounds. EXTREMITIES: Normal range of motion. No edema. SKIN: Warm, dry, no rash. NEURO: No focal deficits. Alert and oriented x3. PSYCH: Normal mood and affect. Objective Data Vital Signs Vital Signs: Vital Signs - 24 hr 06/23/24 14:00 06/23/24 20:00 06/23/24 20:09 Temperature 97.9 F 97.0 F L Pulse Rate 81 83 83 Respiratory Rate 18 14 14 Blood Pressure 123/53 L 145/68 H Pulse Oximetry 99 100 100 Oxygen Delivery Room Air 06/23/24 20:37 06/24/24 03:58 Temperature 97.1 F L Pulse Rate 83 72 Respiratory Rate 16 Blood Pressure 125/59 L Pulse Oximetry 98 Oxygen Delivery Intake/Output Intake/Output: Intake & Output 06/21/24 06/22/24 06/23/24 06/24/24 23:59 23:59 23:59 23:59 Intake Total 3320 2270 2990 215 Output Total 100 Balance 3320 2170 2990 215 Meds/Results Medications: Active Medications Generic Name Dose Route Start Last Admin Trade Name Freq PRN Reason Stop Dose Admin Acetaminophen 650 mg 06/18/24 17:42 Acetaminophen 325 Mg Tablet PO Q4H PRN Mild Pain (1-3) or Fever Alprazolam 1 mg 06/18/24 23:09 06/23/24 20:36 Alprazolam (*Crx) 0.5 Mg Tablet PO 1 mg QID PRN Administration anxiety Fidaxomicin 200 mg 06/21/24 13:25 06/24/24 09:16 Fidaxomicin 200 Mg Tablet PO 06/30/24 21:01 200 mg Q12HR SOLITARIO Administration Heparin Sodium (Porcine) 5,000 units 06/19/24 11:00 06/24/24 09:17 Heparin Sodium 5,000 Units/Ml Vial SUB-Q 5,000 units Q12HR SOLITARIO Administration Lactobacillus Acidophilus 1 tablet 06/23/24 13:00 06/24/24 09:16 Acidophilus/Bulgaricus Chewable Tablet PO 1 tablet QID [facility]ITARIO Administration Levothyroxine Sodium 75 mcg 06/19/24 06:30 06/24/24 05:51 Levothyroxine Sodium 75 Mcg Tablet PO 75 mcg DAILY@0630 [facility] Administration Meclizine HCl 12.5 mg 06/18/24 23:09 Meclizine Hcl 12.5 Mg Tablet PO TID PRN dizziness Metoprolol Tartrate 50 mg 06/18/24 23:10 06/24/24 09:16 Metoprolol Tartrate 50 Mg Tab PO 50 mg Q12HR [facility] Administration Montelukast Sodium 10 mg 06/19/24 09:00 06/24/24 09:16 Montelukast Sodium 10 Mg Tablet PO 10 mg DAILY [facility]AR[facility] Administration Olmesartan 40 mg 06/19/24 09:00 06/24/24 09:16 Olmesartan Medoxomil 20 Mg Tablet PO 40 mg QAM [facility] Administration Ondansetron HCl 4 mg 06/18/24 17:42 06/22/24 22:00 Ondansetron Inj 4 Mg/2 Ml Vial IV PUSH 4 mg Q4H PRN Administration Nausea Pantoprazole Sodium 40 mg 06/19/24 09:00 06/24/24 09:17 Pantoprazole 40 Mg Tablet PO 40 mg QAM [facility] Administration Potassium Chloride 10 meq 06/19/24 09:00 06/24/24 09:17 Potassium Chloride 10 Meq Er Tablet PO 10 meq DAILY SOLITARIO Administration Sodium Bicarbonate 650 mg 06/22/24 10:30 06/24/24 09:17 Sodium Bicarbonate Tab 650 Mg Tablet PO 650 mg BID [facility] Administration Tramadol HCl 100 mg 06/18/24 23:09 06/22/24 21:10 Tramadol Hcl (*Crx) 50 Mg Tablet PO 100 mg HS PRN Administration pain 4-10 Tramadol HCl 50 mg 06/18/24 23:09 06/23/24 09:08 Tramadol Hcl (*Crx) 50 Mg Tablet PO 50 mg QAM PRN Administration pain 4-10 Trazodone HCl 200 mg 06/18/24 23:15 06/23/24 20:36 Trazodone Hcl 50 Mg Tablet PO 200 mg HS SOLITARIO Administration Radiology Results: ITS Impressions Chest X-Ray 06/18/24 16:15 IMPRESSION: 1. No acute cardiopulmonary disease. Abdomen/Pelvis CT 06/18/24 17:06 IMPRESSION: Mural thickening with surrounding inflammatory change involving the distal descending/proximal sigmoid colons. Extraluminal air is identified communicating with the undersurface of the anterolateral abdominal wall. No gross perforation is present. No drainable fluid collection is noted. Additional findings suggesting early diverticulitis of the cecum and ascending colon, as detailed above. Hypovolemia. Anasarca. Labs Labs: Laboratory Results - last 24 hr 06/24/24 06:06 WBC 6.7 RBC 2.68 L Hgb 8.5 L Hct 28.2 L MCV 105.2 H MCH 31.7 MCHC 30.1 L RDW 17.2 H Plt Count 210 MPV 10.3 Immature Gran % (Auto) 1.2 H Neut % (Auto) 62.6 Lymph % (Auto) 25.5 [place] % (Auto) 7.9 Eos % (Auto) 2.4 Baso % (Auto) 0.4 Lymph # (Auto) 1.71 [place] # (Auto) 0.5 Eos # (Auto) 0.2 Baso # (Auto) 0.0 Abs Immat Gran (auto) 0.08 H Absolute Neuts (auto) 4.2 Absolute Nucleated RBC 0.000 Nucleated RBC % 0.0 Platelet Estimate Adequate Anisocytosis 1+ Macrocytosis 1+ Schistocytes None seen Sodium 141 Potassium 3.6 Chloride 116 H Carbon Dioxide 22 Anion Gap 3 L BUN 14 Creatinine 1.47 H Estim Creat Clear Calc 36 Estimated GFR 35 L Glucose 83 Calcium 7.3 L Magnesium 1.8 Total Bilirubin 0.4 AST 16 ALT 10 Alkaline Phosphatase 81 Total Protein 5.0 L Albumin 1.8 L
[2024-06-24 14:20] VITALS: BP 151/77; PULSE 78; RESP 17; TEMP 35.8; O2SAT 99
--- NOTE | 2024-06-24 16:31 | PCPTNOTE ---
On 06/24/24, the student, COURTNEY Vigil, provided care and completed [facility] documentation on this patient. I have reviewed the student's documentation and agree with the findings.
[2024-06-24] MEDS: ALBUMIN HUMAN 25% 25 GM/100 ML 200 ML IVPB ×2 (17:09→21:30)
[2024-06-24 20:00] VITALS: PULSE 86; RESP 18; O2SAT 100
[2024-06-24] MEDS: traZODone HCL 50 MG TABLET 200 MG PO (21:32)
[2024-06-24] MEDS: traMADol HCL (*CRX) 50 MG TABLET 100 MG PO (21:32)
[2024-06-24] MEDS: ALPRAZolam (*CRX) 0.5 MG TABLET 1 MG PO (21:32)
[2024-06-24 21:33] VITALS: PULSE 80
[2024-06-24 21:58] VITALS: BP 158/67; PULSE 86; RESP 18; TEMP 37.4; O2SAT 100
[2024-06-25] VITALS (7 sets, daily range): BP systolic 131–155; BP diastolic 63–67; PULSE 62–73; RESP 16–18; TEMP 36.2–37; O2SAT 94–97
[2024-06-25] MEDS: ALBUMIN HUMAN 25% 25 GM/100 ML 200 ML IVPB ×3 (05:39→20:42)
[2024-06-25] MEDS: LEVOTHYROXINE SODIUM 75 MCG TABLET PO (05:39)
[2024-06-25 06:28] LABS: Basophils Percent Auto 0.5 % (0.2-1.2); Eosinophils Absolute Auto 0.1 K/mm3 (0-0.3); Eosinophils Percent Auto 2.4 % (0-4.4); Hematocrit 22.6 % (37.0-47.0); Immature Granulocyte Absolute 0.09 K/mm3 (0.00-0.031); Immature Granulocyte Percent A 1.5 % (0-0.5); Lymphocytes Absolute Auto 1.89 K/mm3 (0.9-3.2); Mean Corpuscular HGB Conc 30.1 g/dl (32-36); Mean Corpuscular Hemoglobin 31.2 pg (26-34); Mean Corpuscular Volume 103.7 fl (80-100); Mean Platelet Volume 10.4 fl (7.4-10.4); Monocytes Absolute Auto 0.4 K/mm3 (0.1-0.6); Monocytes Percent Auto 6.9 % (2.6-8.5); Neutrophils Absolute Auto 3.3 K/mm3 (1.3-6.7); Neutrophils Percent Auto 56.7 % (45.5-73.1); Nucleated Red Blood Cells Perc 0.3 % (0.0-0.2); Platelet Count Result 187 k/mm3 (150-375); Red Blood Count 2.18 M/mm3 (4.2-5.4); Red Cell Distribution Width 17.4 % (11.5-14.5); White Blood Count 5.9 K/mm3 (4.5-10.0)
[2024-06-25 06:33] LABS: Hemoglobin 6.8 g/dL (12.0-15.0)
[2024-06-25 07:00] LABS: Alanine Aminotransferase 8 U/L (6-35); Albumin Level 2.9 g/dL (3.5-5.1); Alkaline Phosphatase 51 U/L (38-126); Anion Gap 6 mmol/L (4-12); Aspartate Amino Transferase 15 U/L (14-36); Bilirubin,Total 0.6 mg/dL (0.2-1.3); Blood Urea Nitrogen 13 mg/dL (7-17); Carbon Dioxide 21 mmol/L (22-30); Chloride 114 mmol/L (98-107); Estimated CRCL calculation 39 ml/min; Estimated Glomerular Filt Rate 38; Glucose 76 mg/dL (65-110); Magnesium 1.7 mg/dL (1.6-2.3); Potassium 3.4 mmol/L (3.4-5.0); Sodium 141 mmol/L (137-145)
[2024-06-25 08:12] LABS: Immature Reticulocyte Fraction 14.5 % (3.0-15.9); Reticulocyte Hemoglobin Conten 31.1 pg (28.2-36.6); Reticulocyte Percent 1.53 % (0.7-4.3); Reticulocytes Absolute 0.03 10^6/uL (0.02-0.10)
[2024-06-25] MEDS: PANTOPRAZOLE 40 MG TABLET PO (08:45)
[2024-06-25] MEDS: SODIUM BICARBONATE TAB 650 MG TABLET PO ×2 (08:45→16:05)
[2024-06-25] MEDS: FIDAXOMICIN 200 MG TABLET PO ×2 (08:45→20:42)
[2024-06-25] MEDS: ACIDOPHILUS/BULGARICUS CHEWABLE TABLET 1 TABLET PO ×3 (08:45→20:41)
[2024-06-25] MEDS: MONTELUKAST SODIUM 10 MG TABLET PO (08:45)
[2024-06-25] MEDS: METOPROLOL TARTRATE 50 MG TAB PO ×2 (08:46→20:42)
[2024-06-25] MEDS: POTASSIUM CHLORIDE 10 MEQ ER TABLET PO (08:46)
[2024-06-25] MEDS: OLMESARTAN MEDOXOMIL 20 MG TABLET 40 MG PO (08:46)
[2024-06-25 09:41] LABS: Iron 48 ug/dL (37-170)
[2024-06-25 09:50] LABS: Percent Iron Saturation 41 % (20-50)
[2024-06-25 10:11] LABS: Folic Acid 2.9 ng/mL (2.76->20)
[2024-06-25] MEDS: SODIUM CHLORIDE 0.9% IV 250 ML 30 ML IV CONT (11:13)
[2024-06-25] MEDS: TUBING, BLOOD PLUM PUMP TUBING 1 EACH XX (11:14)
--- NOTE | 2024-06-25 12:36 | P.PNIM_ITS ---
Progress Note: A&P Assessment and Plan (1) Diverticulitis: Code(s): K57.92 - Diverticulitis of intestine, part unspecified, without perforation or abscess without bleeding Status: Acute Assessment and Plan: patient has previous history of diverticulitis with micro perforation no surgical intervention done at that time * CT abdomen showing ruled thickening with surrounding inflammatory changes in the distal descending proximal sigmoid colon with no perforation or drainable fluid collection * general surgery consulted On full liquid. Will advance as tolerated and tolerating we * continue IV Zosyn which will be switched to Augmentin. diarrhea is not improving. Her diverticulitis is presumed to be more C diff related since he did came back positive will stop Augmentin at this point. * pain control * antiemetics * IV fluids will be continued and stop when able to tolerate diet * monitor electrolytes replenish as needed * surgery planned for serial abdominal exams Labs stable. Abdominal examination stable (2) Elevated troponin: Code(s): R79.89 - Other specified abnormal findings of blood chemistry Status: Acute Assessment and Plan: patient's troponins were mildly elevated and trending down * likely ischemic demand 0.071>0.063> * EKG normal sinus rhythm no ST-T changes * patient pain denying chest pain (3) Diarrhea: Qualifiers: Diarrhea type: presumed infectious Qualified Code(s): R19.7 - Diarrhea, unspecified Code(s): R19.7 - Diarrhea, unspecified Status: Acute Assessment and Plan: patient does have previous history of C diff infection had multiple episodes of diarrhea prior to admission however has not had 1 since admission * C-diff culture came back positive next history of C diff back in 2021 Started on fidaxomicin Diarrhea still persistent. Add probiotics discontinue Augmentin as diverticulitis likely severe as WBC count is normal Formed stool yesterday per nursing staff. Will continue to monitor Continue fidaxomicin to complete 10 days course (4) Abnormal urinalysis: Code(s): R82.90 - Unspecified abnormal findings in urine Status: Acute Assessment and Plan: * UA with leukocytes, urine wbc's, of 4+ bacteriuria * currently on IV Zosyn for diverticulitis should cover urinary tract infection pending cultures Urine culture with E coli susceptible to Augmentin Will recheck urinalysis which is not yet collected (5) Hypothyroidism: Qualifiers: Hypothyroidism type: unspecified Qualified Code(s): E03.9 - Hypothyroidism, unspecified Code(s): E03.9 - Hypothyroidism, unspecified Status: Acute Assessment and Plan: * resume patient's levothyroxine (6) CKD (chronic kidney disease): Qualifiers: Chronic kidney disease stage: unspecified stage Qualified Code(s): N18.9 - Chronic kidney disease, unspecified Code(s): N18.9 - Chronic kidney disease, unspecified Status: Chronic Assessment and Plan: * Gentle IV hydration which was completed. * CR at baseline 1.35 * Avoid nephrotoxic drugs. * Monitor antihypertensive drug therapy. * Avoid NSAIDs. * Routine CMP monitoring GFR. * Monitor electrolytes especially potassium. * Antibiotic doses depending on creatinine clearance. (7) Hypertension: Qualifiers: Hypertension type: primary hypertension Qualified Code(s): I10 - Essential (primary) hypertension Code(s): I10 - Essential (primary) hypertension Status: Chronic Assessment and Plan: * resume metoprolol (8) Gout attack: Qualifiers: Gout site: foot Gout etiology: unspecified cause Laterality: right Qualified Code(s): M10.9 - Gout, unspecified Code(s): M10.9 - Gout, unspecified Status: Acute Assessment and Plan: * patient was treated with colchicine Plan Chronic mild anemia no signs of bleeding. Stable counts. Hypoalbuminemia will give albumin. This also helps with anasarca Code status: Full code per patient DVT prophylaxis: Heparin b.i.d. will hold this due to anemia. SCDs Stress ulcer prophylaxis: Protonix 40 daily PT/OT notes: PT/OT ordered and working with PT OT. Likely needs rehab placement Disposition: PT OT to see Subjective Date/time seen: 06/25/24 12:36 Interval history: No overnight events. Feels tired. Left lower quadrant Discomfort reported which is new. Stool is loose not watery. 1-2 episodes per day per nursing staff no nausea vomiting. Labs reviewed hemoglobin down to 6.8 Review of Systems Review of Systems: All systems reviewed & are unremarkable except as noted in HPI and below Exam Narrative: GENERAL: Well-appearing, well-nourished, and in no acute distress. HEAD: Normocephalic, atraumatic. EYES: PERRLA and EOMI. ENT: Nares clear, no rhinorrhea or epistaxis. Mucous membranes moist. NECK: Supple CHEST: Clear to auscultation. No respiratory distress HEART: Regular rate and rhythm. No murmur heard. Normal peripheral pulses. ABDOMEN: Soft, nontender, nondistended, normal active bowel sounds. EXTREMITIES: Normal range of motion. No edema. SKIN: Warm, dry, no rash. NEURO: No focal deficits. Alert and oriented x3. PSYCH: Normal mood and affect. Objective Data Vital Signs Vital Signs: Vital Signs - 24 hr 06/24/24 14:20 06/24/24 20:00 06/24/24 21:33 Temperature 96.5 F L Pulse Rate 78 86 80 Respiratory Rate 17 18 Blood Pressure 151/77 H Pulse Oximetry 99 100 Oxygen Delivery Room Air 06/24/24 21:58 06/25/24 06:00 06/25/24 11:24 Temperature 99.3 F 97.9 F 97.7 F Pulse Rate 86 73 66 Respiratory Rate 18 18 16 Blood Pressure 158/67 H 131/63 140/65 Pulse Oximetry 100 97 94 Oxygen Delivery 06/25/24 11:40 Temperature 97.5 F L Pulse Rate 65 Respiratory Rate 16 Blood Pressure 143/64 H Pulse Oximetry 94 Oxygen Delivery Intake/Output Intake/Output: Intake & Output 06/22/24 06/23/24 06/24/24 06/25/24 23:59 23:59 23:59 23:59 Intake Total 2270 2990 1245 320 Output Total 100 Balance 2170 2990 1245 320 Meds/Results Medications: Active Medications Generic Name Dose Route Start Last Admin Trade Name Freq PRN Reason Stop Dose Admin Acetaminophen 650 mg 06/18/24 17:42 Acetaminophen 325 Mg Tablet PO Q4H PRN Mild Pain (1-3) or Fever Alprazolam 1 mg 06/18/24 23:09 06/24/24 21:32 Alprazolam (*Crx) 0.5 Mg Tablet PO 1 mg QID PRN Administration anxiety Fidaxomicin 200 mg 06/21/24 13:25 06/25/24 08:45 Fidaxomicin 200 Mg Tablet PO 06/30/24 21:01 200 mg Q12HR [facility] Administration Heparin Sodium (Porcine) 5,000 units 06/19/24 11:00 06/24/24 21:31 Heparin Sodium 5,000 Units/Ml Vial SUB-Q 5,000 units Q12HR [facility]ITAR[facility] Administration Albumin Human 200 mls @ 60 mls/hr 06/24/24 14:00 06/25/24 05:39 Albutein IVPB 60 mls/hr Q8HR SOLITARIO Administration Sodium Chloride 250 mls @ 30 mls/hr 06/25/24 08:00 06/25/24 11:13 Normal Saline Iv IV CONT 06/25/24 16:19 30 mls/hr .[id number] STA Administration Lactobacillus Acidophilus 1 tablet 06/23/24 13:00 06/25/24 08:45 Acidophilus/Bulgaricus Chewable Tablet PO 1 tablet QID [facility] Administration Levothyroxine Sodium 75 mcg 06/19/24 06:30 06/25/24 05:39 Levothyroxine Sodium 75 Mcg Tablet PO 75 mcg DAILY@0630 [facility] Administration Meclizine HCl 12.5 mg 06/18/24 23:09 Meclizine Hcl 12.5 Mg Tablet PO TID PRN dizziness Metoprolol Tartrate 50 mg 06/18/24 23:10 06/25/24 08:46 Metoprolol Tartrate 50 Mg Tab PO 50 mg Q12HR [facility] Administration Montelukast Sodium 10 mg 06/19/24 09:00 06/25/24 08:45 Montelukast Sodium 10 Mg Tablet PO 10 mg DAILY [facility] Administration Olmesartan 40 mg 06/19/24 09:00 06/25/24 08:46 Olmesartan Medoxomil 20 Mg Tablet PO 40 mg QAM [facility] Administration Ondansetron HCl 4 mg 06/18/24 17:42 06/22/24 22:00 Ondansetron Inj 4 Mg/2 Ml Vial IV PUSH 4 mg Q4H PRN Administration Nausea Pantoprazole Sodium 40 mg 06/19/24 09:00 06/25/24 08:45 Pantoprazole 40 Mg Tablet PO 40 mg QAM [facility] Administration Potassium Chloride 10 meq 06/19/24 09:00 06/25/24 08:46 Potassium Chloride 10 Meq Er Tablet PO 10 meq DAILY SOLITAR[facility] Administration Sodium Bicarbonate 650 mg 06/22/24 10:30 06/25/24 08:45 Sodium Bicarbonate Tab 650 Mg Tablet PO 650 mg BID [facility] Administration Tramadol HCl 100 mg 06/18/24 23:09 06/24/24 21:32 Tramadol Hcl (*Crx) 50 Mg Tablet PO 100 mg HS PRN Administration pain 4-10 Tramadol HCl 50 mg 06/18/24 23:09 06/23/24 09:08 Tramadol Hcl (*Crx) 50 Mg Tablet PO 50 mg QAM PRN Administration pain 4-10 Trazodone HCl 200 mg 06/18/24 23:15 06/24/24 21:32 Trazodone Hcl 50 Mg Tablet PO 200 mg HS SOLITARIO Administration Radiology Results: ITS Impressions Chest X-Ray 06/18/24 16:15 IMPRESSION: 1. No acute cardiopulmonary disease. Abdomen/Pelvis CT 06/18/24 17:06 IMPRESSION: Mural thickening with surrounding inflammatory change involving the distal descending/proximal sigmoid colons. Extraluminal air is identified communicating with the undersurface of the anterolateral abdominal wall. No gross perforation is present. No drainable fluid collection is noted. Additional findings suggesting early diverticulitis of the cecum and ascending colon, as detailed above. Hypovolemia. Anasarca. Labs Labs: Laboratory Results - last 24 hr 06/24/24 06/25/24 06/25/24 06:06 05:51 05:54 WBC 5.9 RBC 2.18 L Hgb 6.8 L* Hct 22.6 L MCV 103.7 H MCH 31.2 MCHC 30.1 L RDW 17.4 H Plt Count 187 MPV 10.4 Immature Gran % (Auto) 1.5 H Neut % (Auto) 56.7 Lymph % (Auto) 32.0 [place] % (Auto) 6.9 Eos % (Auto) 2.4 Baso % (Auto) 0.5 Lymph # (Auto) 1.89 [place] # (Auto) 0.4 Eos # (Auto) 0.1 Baso # (Auto) 0.0 Abs Immat Gran (auto) 0.09 H Absolute Neuts (auto) 3.3 Absolute Nucleated RBC 0.020 H Nucleated RBC % 0.3 H Absolute Retic 0.03 Percent Retic 1.53 Immature Retic Fraction 14.5 Retic Hgb Content 31.1 Sodium 141 Potassium 3.4 Chloride 114 H Carbon Dioxide 21 L Anion Gap 6 BUN 13 Creatinine 1.36 H Estim Creat Clear Calc 39 Estimated GFR 38 L Glucose 76 Calcium 8.0 L Magnesium 1.7 Iron 48 TIBC 117 L % Saturation 41 Ferritin 220.00 Total Bilirubin 0.6 AST 15 ALT 8 Alkaline Phosphatase 51 Total Protein 5.0 L Albumin 2.9 L Vitamin B12 220.0 L Folate 2.9 Blood Type Antibody Screen Crossmatch 06/25/24 08:25 WBC RBC Hgb Hct MCV MCH MCHC RDW Plt Count MPV Immature Gran % (Auto) Neut % (Auto) Lymph % (Auto) [place] % (Auto) Eos % (Auto) Baso % (Auto) Lymph # (Auto) [place] # (Auto) Eos # (Auto) Baso # (Auto) Abs Immat Gran (auto) Absolute Neuts (auto) Absolute Nucleated RBC Nucleated RBC % Absolute Retic Percent Retic Immature Retic Fraction Retic Hgb Content Sodium Potassium Chloride Carbon Dioxide Anion Gap BUN Creatinine Estim Creat Clear Calc Estimated GFR Glucose Calcium Magnesium Iron TIBC % Saturation Ferritin Total Bilirubin AST ALT Alkaline Phosphatase Total Protein Albumin Vitamin B12 Folate Blood Type O Negative Antibody Screen Negative Crossmatch See Detail
--- NOTE | 2024-06-25 15:25 | PCPTNOTE ---
Patient refused PT this date due to pain from diverticulitis and fatigue. Patient states that she just can't do it today. Will continue to follow per PT POC.
--- NOTE | 2024-06-25 15:38 | PCPTNOTE ---
On 06/25/24, the student, COURTNEY Vigil, provided care and completed [facility] documentation on this patient. I have reviewed the student's documentation and agree with the findings.
[2024-06-25] MEDS: CYANOCOBALAMIN INJ 1,000 MCG/ML VIAL 1000 MCG IM (16:04)
[2024-06-25] MEDS: traZODone HCL 50 MG TABLET 200 MG PO (20:42)
[2024-06-26] MEDS: ONDANSETRON INJ 4 MG/2 ML VIAL IV PUSH ×2 (02:16→06:08)
[2024-06-26 05:47] VITALS: BP 152/73; PULSE 65; RESP 16; TEMP 36.8; O2SAT 94
[2024-06-26] MEDS: ALBUMIN HUMAN 25% 25 GM/100 ML 200 ML IVPB (06:06)
[2024-06-26] MEDS: LEVOTHYROXINE SODIUM 75 MCG TABLET PO (06:07)
[2024-06-26 06:39] LABS: Basophils Percent Auto 0.4 % (0.2-1.2); Eosinophils Absolute Auto 0.1 K/mm3 (0-0.3); Eosinophils Percent Auto 1.6 % (0-4.4); Hematocrit 28.3 % (37.0-47.0); Hemoglobin 8.9 g/dL (12.0-15.0); Immature Granulocyte Absolute 0.26 K/mm3 (0.00-0.031); Immature Granulocyte Percent A 3.3 % (0-0.5); Lymphocytes Absolute Auto 1.54 K/mm3 (0.9-3.2); Lymphocytes Percent Auto 19.3 % (18.3-44.2); Mean Corpuscular HGB Conc 31.4 g/dl (32-36); Mean Corpuscular Hemoglobin 30.8 pg (26-34); Mean Corpuscular Volume 97.9 fl (80-100); Mean Platelet Volume 10.3 fl (7.4-10.4); Monocytes Absolute Auto 0.6 K/mm3 (0.1-0.6); Monocytes Percent Auto 7.6 % (2.6-8.5); Neutrophils Absolute Auto 5.4 K/mm3 (1.3-6.7); Neutrophils Percent Auto 67.8 % (45.5-73.1); Nucleated Red Blood Cells Perc 0.4 % (0.0-0.2); Platelet Count Result 181 k/mm3 (150-375); Red Blood Count 2.89 M/mm3 (4.2-5.4); Red Cell Distribution Width 19.3 % (11.5-14.5)
[2024-06-26 06:50] LABS: Alanine Aminotransferase 8 U/L (6-35); Albumin Level 3.8 g/dL (3.5-5.1); Alkaline Phosphatase 52 U/L (38-126); Anion Gap 12 mmol/L (4-12); Aspartate Amino Transferase 16 U/L (14-36); Bilirubin,Total 1.1 mg/dL (0.2-1.3); Blood Urea Nitrogen 13 mg/dL (7-17); Calcium 8.7 mg/dL (8.4-10.2); Carbon Dioxide 20 mmol/L (22-30); Chloride 114 mmol/L (98-107); Estimated CRCL calculation 39 ml/min; Estimated Glomerular Filt Rate 38; Glucose 92 mg/dL (65-110); Magnesium 1.6 mg/dL (1.6-2.3); Potassium 3.6 mmol/L (3.4-5.0); Sodium 146 mmol/L (137-145)
[2024-06-26] MEDS: OLMESARTAN MEDOXOMIL 20 MG TABLET 40 MG PO (09:03)
[2024-06-26 09:04] VITALS: PULSE 70
[2024-06-26] MEDS: FOLIC ACID 1 MG TABLET PO (09:04)
[2024-06-26] MEDS: ACIDOPHILUS/BULGARICUS CHEWABLE TABLET 1 TABLET PO ×4 (09:04→20:45)
[2024-06-26] MEDS: POTASSIUM CHLORIDE 10 MEQ ER TABLET PO (09:04)
[2024-06-26] MEDS: FIDAXOMICIN 200 MG TABLET PO ×2 (09:04→20:44)
[2024-06-26] MEDS: levoFLOXacin 750 MG TABLET PO (09:04)
[2024-06-26] MEDS: MONTELUKAST SODIUM 10 MG TABLET PO (09:04)
[2024-06-26] MEDS: PANTOPRAZOLE 40 MG TABLET PO (09:04)
[2024-06-26] MEDS: SODIUM BICARBONATE TAB 650 MG TABLET PO ×2 (09:04→16:26)
[2024-06-26] MEDS: CYANOCOBALAMIN 1,000 MCG TABLET 1000 MCG PO (09:04)
[2024-06-26] MEDS: METOPROLOL TARTRATE 50 MG TAB PO ×2 (09:04→20:44)
[2024-06-26] MEDS: CYANOCOBALAMIN INJ 1,000 MCG/ML VIAL 1000 MCG IM (09:07)
--- NOTE | 2024-06-26 12:35 | PM.IMPN ---
Progress Note: A&P Assessment and Plan (1) Diverticulitis: Code(s): K57.92 - Diverticulitis of intestine, part unspecified, without perforation or abscess without bleeding Status: Acute Assessment and Plan: Patient presents with diarrhea and weakness. Previous hx of diverticulitis with microperf not requiring surgical intervention CT abd/pelvis showing mural thickening with surrounding inflammatory changes in the distal descending/proximal sigmoid colon with extraluminal air but no gross perforation or drainable fluid collection. CXR was clear. General surgery consulted. Patient started on Zosyn (06/18-06/21) then Augmentin through the morning of 06/23/24. Was on full liquid but was improving so diet advanced to low fiber. Symptoms worse yesterday. CT Abd/Pelvis overnight showing a small persistent collection of extraluminal gas adjacent to the descending colon abutting the anterior abdominal wall but no evidence for abscess formation and interval development of moderate bilateral pleural effusions and ascites. No obvious peritoneal signs and ascites is minimal. WBC normal. Suspect worsening symptoms related to partially treated diverticulitis. Resume abx. Will re-consult GenSurg as well. (2) Elevated troponin: Code(s): R79.89 - Other specified abnormal findings of blood chemistry Status: Acute Assessment and Plan: Troponins were mildly elevated and trending down (0.071) EKG showing normal sinus rhythm with possible old anterior PA. Patient denies chest pain Elevated Trop likely ischemic demand (3) C. difficile diarrhea: Code(s): A04.72 - Enterocolitis due to Clostridium difficile, not specified as recurrent Status: Acute Assessment and Plan: Patient presents with diarrhea and has a previous history of C diff infection in 2021 C-diff toxin positive and was started on fidaxomicin Diarrhea still persistent. Probiotics added. Augmentin was discontinued. WBC count remains normal and no diffuse colitis by CT scan. Formed stool 06/24 per nursing staff. Will continue to monitor Continue fidaxomicin to complete 10 days course. Check lactic (4) UTI (urinary tract infection): Code(s): N39.0 - Urinary tract infection, site not specified Status: Acute Assessment and Plan: UA with leukocytes, urine wbc's and 4+ bacteriuria. UCx growing EColi sensitive to Zosyn and Augment. She completed 5 days of abx treatment (5) CKD (chronic kidney disease): Qualifiers: Chronic kidney disease stage: unspecified stage Qualified Code(s): N18.9 - Chronic kidney disease, unspecified Code(s): N18.9 - Chronic kidney disease, unspecified Status: Chronic Assessment and Plan: Cr 1.37 on admission and has remained stable during her hospital course. Avoid nephrotoxic drugs. Avoid NSAIDs. Monitor electrolytes, UOP and renal fxn. (6) Anemia: Code(s): D64.9 - Anemia, unspecified Status: Acute Assessment and Plan: Hgb 11.1 on admission. She has an intermittent anemia that drops to 10-11 range at times. Hgb trending down here to 6.8 (06/25) and she received 1U PRBC. Iron normal with TIBC 117 and iron sat 41%. Ferritin 220. B12 low at 220 and folaic acid low end of normal at 2.9. She had been started on Albumin the day before so consider related to dilution. Hgb today 8.9. Replace B12. Stop albumin. Treat with Lasix. (7) B12 deficiency anemia: Code(s): D51.9 - Vitamin B12 deficiency anemia, unspecified Status: Acute Assessment and Plan: As above. Replace B12. (8) Hypoalbuminemia: Code(s): E88.09 - Other disorders of plasma-protein metabolism, not elsewhere classified Status: Acute Assessment and Plan: Albumin has been low in the past. Albumin 2.5 on admisison and it dropped to 1.8. Albumin given and level is normal now. She does appear to have diffuse nonpitting edema. Urine protein 1+ but could be related to recent infection. Could have proteiin loss due to GI source with diarrhea. Consider also malnutrition. Continue dietary supplements. Stop albumin. Lasix IV. Check urine protein/Cr ratio. (9) Gout attack: Qualifiers: Gout etiology: unspecified cause Gout site: foot Laterality: right Qualified Code(s): M10.9 - Gout, unspecified Code(s): M10.9 - Gout, unspecified Status: Acute Assessment and Plan: Patient was treated with colchicine (10) Hypertension: Qualifiers: Hypertension type: primary hypertension Qualified Code(s): I10 - Essential (primary) hypertension Code(s): I10 - Essential (primary) hypertension Status: Chronic Assessment and Plan: Patient's blood pressure was reviewed on 06/26 Blood pressure remains reasonably well controlled. Will continue to monitor (11) Hypothyroidism: Qualifiers: Hypothyroidism type: unspecified Qualified Code(s): E03.9 - Hypothyroidism, unspecified Code(s): E03.9 - Hypothyroidism, unspecified Status: Acute Assessment and Plan: TSH normal in April. Continue levothyroxine Plan Code status: DNR DVT prophylaxis: SCDs Subjective Date/time seen: 06/26/24 12:35 Interval history: 73yo female with HTN, SRIRAM intolerant to CPAP, COPD and anxiety here for diarrhea. Assuming care. Chart reviewed. Having worsening abdominal pain overnight. Still having diarrhea. She is having mid abdominal pain that radiates to the left lower quadrant. She is having nausea with emesis x2 overnight. No fevers. She feels short of breath but this improved after the adjusted the heat in her room. No chest pain or cough. Not eating much. Exam Narrative: AF 98.2 152/73 70 16 94% RA Gen - NARD Chest - Lungs clear anteriorly and in the flanks. normal respiratory CV - RRR S1/S2 Abd - soft. Positive bowel sounds. No referred pain. No rebound. Diffuse abdominal pain worse in the left lower quadrant Ext - diffuse edema noted in her upper and lower extremities that was nonpitting Psych - Nml mood and affect Skin - Warm and dry Objective Data Vital Signs Vital Signs: Vital Signs - 24 hr 06/25/24 12:40 06/25/24 13:55 06/25/24 14:00 Temperature 97.2 F L 97.5 F L 97.5 F L Pulse Rate 68 62 62 Respiratory Rate 16 16 16 Blood Pressure 139/66 142/67 H 142/67 H Pulse Oximetry 96 97 97 Oxygen Delivery 06/25/24 20:00 06/25/24 22:52 06/26/24 05:47 Temperature 98.6 F 98.2 F Pulse Rate 66 65 Respiratory Rate 16 16 Blood Pressure 155/63 H 152/73 H Pulse Oximetry 94 94 Oxygen Delivery Room Air 06/26/24 09:04 Temperature Pulse Rate 70 Respiratory Rate Blood Pressure Pulse Oximetry Oxygen Delivery Intake/Output Intake/Output: Intake & Output 06/23/24 06/24/24 06/25/24 06/26/24 23:59 23:59 23:59 23:59 Intake Total 2990 1245 1310 690 Balance 2990 1245 1310 690 Meds/Results Medications: Active Medications Generic Name Dose Route Start Last Admin Trade Name Freq PRN Reason Stop Dose Admin Acetaminophen 650 mg 06/18/24 17:42 Acetaminophen 325 Mg Tablet PO Q4H PRN Mild Pain (1-3) or Fever Alprazolam 1 mg 06/18/24 23:09 06/24/24 21:32 Alprazolam (*Crx) 0.5 Mg Tablet PO 1 mg QID PRN Administration anxiety Cyanocobalamin 1,000 mcg 06/26/24 09:00 06/26/24 09:07 Cyanocobalamin Inj 1,000 Mcg/Ml Vial IM 06/27/24 09:01 1,000 mcg DAILY SOLITARIO Administration Cyanocobalamin 1,000 mcg 06/26/24 09:00 06/26/24 09:04 Cyanocobalamin 1,000 Mcg Tablet PO 1,000 mcg QAM SOLITARIO Administration Fidaxomicin 200 mg 06/21/24 13:25 06/26/24 09:04 Fidaxomicin 200 Mg Tablet PO 06/30/24 21:01 200 mg Q12HR SOLITARIO Administration Folic Acid 1 mg 06/26/24 09:00 06/26/24 09:04 Folic Acid 1 Mg Tablet PO 1 mg DAILY SOLITARIO Administration Heparin Sodium (Porcine) 5,000 units 06/19/24 11:00 06/24/24 21:31 Heparin Sodium 5,000 Units/Ml Vial SUB-Q 5,000 units Q12HR SOLITARIO Administration Lactobacillus Acidophilus 1 tablet 06/23/24 13:00 06/26/24 09:04 Acidophilus/Bulgaricus Chewable Tablet PO 1 tablet QID SOLITARIO Administration Levofloxacin 750 mg 06/26/24 09:00 06/26/24 09:04 Levofloxacin 750 Mg Tablet PO 07/04/24 09:01 750 mg Q48H SOLITARIO Administration Levothyroxine Sodium 75 mcg 06/19/24 06:30 06/26/24 06:07 Levothyroxine Sodium 75 Mcg Tablet PO 75 mcg DAILY@0630 SOLITARIO Administration Meclizine HCl 12.5 mg 06/18/24 23:09 Meclizine Hcl 12.5 Mg Tablet PO TID PRN dizziness Metoprolol Tartrate 50 mg 06/18/24 23:10 06/26/24 09:04 Metoprolol Tartrate 50 Mg Tab PO 50 mg Q12HR SOLITARIO Administration Metronidazole 500 mg 06/26/24 14:00 Metronidazole 500 Mg Tablet PO 07/06/24 06:01 Q8HR SOLITARIO Montelukast Sodium 10 mg 06/19/24 09:00 06/26/24 09:04 Montelukast Sodium 10 Mg Tablet PO 10 mg DAILY SOLITARIO Administration Olmesartan 40 mg 06/19/24 09:00 06/26/24 09:03 Olmesartan Medoxomil 20 Mg Tablet PO 40 mg QAM SOLITARIO Administration Pantoprazole Sodium 40 mg 06/19/24 09:00 06/26/24 09:04 Pantoprazole 40 Mg Tablet PO 40 mg QAM SOLITARIO Administration Potassium Chloride 10 meq 06/19/24 09:00 06/26/24 09:04 Potassium Chloride 10 Meq Er Tablet PO 10 meq DAILY SOLITARIO Administration Sodium Bicarbonate 650 mg 06/22/24 10:30 06/26/24 09:04 Sodium Bicarbonate Tab 650 Mg Tablet PO 650 mg BID SOLITARIO Administration Tramadol HCl 100 mg 06/18/24 23:09 06/24/24 21:32 Tramadol Hcl (*Crx) 50 Mg Tablet PO 100 mg HS PRN Administration pain 4-10 Tramadol HCl 50 mg 06/18/24 23:09 06/23/24 09:08 Tramadol Hcl (*Crx) 50 Mg Tablet PO 50 mg QAM PRN Administration pain 4-10 Trazodone HCl 200 mg 06/18/24 23:15 06/25/24 20:42 Trazodone Hcl 50 Mg Tablet PO 200 mg HS SOLITARIO Administration Radiology Results: ITS Impressions Chest X-Ray 06/18/24 16:15 IMPRESSION: 1. No acute cardiopulmonary disease. Abdomen/Pelvis CT 06/26/24 07:13 IMPRESSION: 1. Small persistent collection of extraluminal gas adjacent to the descending colon abutting the anterior abdominal wall, images 132-139. No evidence for abscess formation. Cannot exclude mild acute diverticulitis. 2: Interval development of moderate bilateral pleural effusions and ascites. Labs Labs: Laboratory Results - last 24 hr 06/25/24 06/26/24 08:25 06:12 WBC 8.0 RBC 2.89 L Hgb 8.9 L Hct 28.3 L MCV 97.9 D MCH 30.8 MCHC 31.4 L RDW 19.3 H Plt Count 181 MPV 10.3 Immature Gran % (Auto) 3.3 H Neut % (Auto) 67.8 Lymph % (Auto) 19.3 [place] % (Auto) 7.6 Eos % (Auto) 1.6 Baso % (Auto) 0.4 Lymph # (Auto) 1.54 [place] # (Auto) 0.6 Eos # (Auto) 0.1 Baso # (Auto) 0.0 Abs Immat Gran (auto) 0.26 H Absolute Neuts (auto) 5.4 Absolute Nucleated RBC 0.030 H Nucleated RBC % 0.4 H Sodium 146 H Potassium 3.6 Chloride 114 H Carbon Dioxide 20 L Anion Gap 12 BUN 13 Creatinine 1.37 H Estim Creat Clear Calc 39 Estimated GFR 38 L Glucose 92 Calcium 8.7 Magnesium 1.6 Total Bilirubin 1.1 AST 16 ALT 8 Alkaline Phosphatase 52 Total Protein 6.0 L Albumin 3.8 Crossmatch See Detail
[2024-06-26] MEDS: metroNIDAZOLE 500 MG TABLET PO ×2 (13:39→20:45)
[2024-06-26 14:00] VITALS: BP 154/62; PULSE 64; RESP 18; TEMP 36.1; O2SAT 98
--- NOTE | 2024-06-26 15:42 | PCPTNOTE ---
Patient refused PT stating she is having abdominal pain, nauseated and just vomited. Patient states she knows that she needs to do therapy and she wants to go home but does not feel well enough to participate in PT this afternoon. PT will continue to follow per plan of care.
[2024-06-26] MEDS: traMADol HCL (*CRX) 50 MG TABLET PO (16:26)
[2024-06-26] MEDS: ALPRAZolam (*CRX) 0.5 MG TABLET 1 MG PO (16:27)
--- NOTE | 2024-06-26 16:55 | P.PNGS_ITS ---
Progress Note: A&P Assessment and Plan (1) Diverticulitis of intestine with perforation without abscess: Qualifiers: Diverticulitis site: large intestine Diverticulitis bleeding: without bleeding Qualified Code(s): K57.20 - Diverticulitis of large intestine with perforation and abscess without bleeding Code(s): K57.80 - Diverticulitis of intestine, part unspecified, with perforation and abscess without bleeding Status: Acute Assessment and Plan: * Patient had new abdominal pain over the past 24-48 hours. Her WBC count remains normal. She is being treated for Cdiff. Repeat CT scan of the abdomen and pelvis was repeated today. This still shows evidence of diverticulitis with microperforation. I reviewed the CT scan in comparison to her initial CT scan and there are no significant changes from her admission. There is still a small foci of intraperitoneal gas near the anterior abdominal wall at the descending colon. There is no new distant free air or evidence of worsening diverticulitis. She has no peritoneal signs on exam. That being said, she would not be a surgical candidate at this time for a resection given her active C.diff infection. Continue with IV antibiotics. Could also consider backing off her diet if her pain persists. No surgical indications at this time. We will sign off. Call with any surgical questions or concerns. (2) C. difficile colitis: Code(s): A04.72 - Enterocolitis due to Clostridium difficile, not specified as recurrent Status: Acute Plan I have discussed the patient's case and plan of care with Dr. Bunch. Subjective Subjective Date/Time Seen: 06/26/24 16:55 Interval history: Hospitalist requested we re-evaluate the patient today. She has had some abdominal pain yesterday and today. She has been receiving treatment for C diff. she reports having left-sided abdominal pain and intermittent pain in the suprapubic area. Her pain comes and goes. She reports this as a cramping pain. She currently reports the pain is mild. She also endorses nausea this afternoon. She had a repeat CT scan of the abdomen and pelvis this morning. White blood cell count remains normal. Exam Const: General: comfortable and no acute distress GI: Inspection: non-distended, Pannus present and obesity GI Palp: Yes Soft to palpation, Yes Tenderness to palpation present (GI) (Diffusely tender), No Guarding due to palpation present (GI) and No Rebound tenderness present Auscultation: normal bowel sounds Objective Data Vital Signs Vital Signs: Vital Signs - 24 hr 06/25/24 20:00 06/25/24 22:52 06/26/24 05:47 Temperature 98.6 F 98.2 F Pulse Rate 66 65 Respiratory Rate 16 16 Blood Pressure 155/63 H 152/73 H Pulse Oximetry 94 94 Oxygen Delivery Room Air 06/26/24 09:04 06/26/24 14:00 Temperature 96.9 F L Pulse Rate 70 64 Respiratory Rate 18 Blood Pressure 154/62 H Pulse Oximetry 98 Oxygen Delivery Intake/Output Intake/Output: Intake & Output 06/23/24 06/24/24 06/25/24 06/26/24 23:59 23:59 23:59 23:59 Intake Total 2990 1245 1310 930 Balance 2990 1245 1310 930 Meds/Results Medications: Active Medications Generic Name Dose Route Start Last Admin Trade Name Freq PRN Reason Stop Dose Admin Acetaminophen 650 mg 06/18/24 17:42 Acetaminophen 325 Mg Tablet PO Q4H PRN Mild Pain (1-3) or Fever Alprazolam 1 mg 06/18/24 23:09 06/26/24 16:27 Alprazolam (*Crx) 0.5 Mg Tablet PO 1 mg QID PRN Administration anxiety Cyanocobalamin 1,000 mcg 06/26/24 09:00 06/26/24 09:07 Cyanocobalamin Inj 1,000 Mcg/Ml Vial IM 06/27/24 09:01 1,000 mcg DAILY SOLITARIO Administration Cyanocobalamin 1,000 mcg 06/26/24 09:00 06/26/24 09:04 Cyanocobalamin 1,000 Mcg Tablet PO 1,000 mcg QAM SOLITARIO Administration Fidaxomicin 200 mg 06/21/24 13:25 06/26/24 09:04 Fidaxomicin 200 Mg Tablet PO 06/30/24 21:01 200 mg Q12HR SOLITARIO Administration Folic Acid 1 mg 06/26/24 09:00 06/26/24 09:04 Folic Acid 1 Mg Tablet PO 1 mg DAILY SOLITARIO Administration Heparin Sodium (Porcine) 5,000 units 06/19/24 11:00 06/24/24 21:31 Heparin Sodium 5,000 Units/Ml Vial SUB-Q 5,000 units Q12HR SOLITARIO Administration Lactobacillus Acidophilus 1 tablet 06/23/24 13:00 06/26/24 16:26 Acidophilus/Bulgaricus Chewable Tablet PO 1 tablet QID SOLITARIO Administration Levofloxacin 750 mg 06/26/24 09:00 06/26/24 09:04 Levofloxacin 750 Mg Tablet PO 07/04/24 09:01 750 mg Q48H SOLITARIO Administration Levothyroxine Sodium 75 mcg 06/19/24 06:30 06/26/24 06:07 Levothyroxine Sodium 75 Mcg Tablet PO 75 mcg DAILY@0630 SOLITARIO Administration Meclizine HCl 12.5 mg 06/18/24 23:09 Meclizine Hcl 12.5 Mg Tablet PO TID PRN dizziness Metoprolol Tartrate 50 mg 06/18/24 23:10 06/26/24 09:04 Metoprolol Tartrate 50 Mg Tab PO 50 mg Q12HR SOLITARIO Administration Metronidazole 500 mg 06/26/24 14:00 06/26/24 13:39 Metronidazole 500 Mg Tablet PO 07/06/24 06:01 500 mg Q8HR SOLITARIO Administration Montelukast Sodium 10 mg 06/19/24 09:00 06/26/24 09:04 Montelukast Sodium 10 Mg Tablet PO 10 mg DAILY SOLITARIO Administration Olmesartan 40 mg 06/19/24 09:00 06/26/24 09:03 Olmesartan Medoxomil 20 Mg Tablet PO 40 mg QAM SOLITARIO Administration Pantoprazole Sodium 40 mg 06/19/24 09:00 06/26/24 09:04 Pantoprazole 40 Mg Tablet PO 40 mg QAM SOLITARIO Administration Potassium Chloride 10 meq 06/19/24 09:00 06/26/24 09:04 Potassium Chloride 10 Meq Er Tablet PO 10 meq DAILY SOLITARIO Administration Sodium Bicarbonate 650 mg 06/22/24 10:30 06/26/24 16:26 Sodium Bicarbonate Tab 650 Mg Tablet PO 650 mg BID SOLITARIO Administration Tramadol HCl 100 mg 06/18/24 23:09 06/24/24 21:32 Tramadol Hcl (*Crx) 50 Mg Tablet PO 100 mg HS PRN Administration pain 4-10 Tramadol HCl 50 mg 06/18/24 23:09 06/26/24 16:26 Tramadol Hcl (*Crx) 50 Mg Tablet PO 50 mg QAM PRN Administration pain 4-10 Trazodone HCl 200 mg 06/18/24 23:15 06/25/24 20:42 Trazodone Hcl 50 Mg Tablet PO 200 mg HS SOLITARIO Administration Radiology Results: ITS Impressions Chest X-Ray 06/18/24 16:15 IMPRESSION: 1. No acute cardiopulmonary disease. Abdomen/Pelvis CT 06/26/24 07:13 IMPRESSION: 1. Small persistent collection of extraluminal gas adjacent to the descending colon abutting the anterior abdominal wall, images 132-139. No evidence for abscess formation. Cannot exclude mild acute diverticulitis. 2: Interval development of moderate bilateral pleural effusions and ascites. Labs Labs: Laboratory Results - last 24 hr 06/26/24 06:12 WBC 8.0 RBC 2.89 L Hgb 8.9 L Hct 28.3 L MCV 97.9 D MCH 30.8 MCHC 31.4 L RDW 19.3 H Plt Count 181 MPV 10.3 Immature Gran % (Auto) 3.3 H Neut % (Auto) 67.8 Lymph % (Auto) 19.3 [place] % (Auto) 7.6 Eos % (Auto) 1.6 Baso % (Auto) 0.4 Lymph # (Auto) 1.54 [place] # (Auto) 0.6 Eos # (Auto) 0.1 Baso # (Auto) 0.0 Abs Immat Gran (auto) 0.26 H Absolute Neuts (auto) 5.4 Absolute Nucleated RBC 0.030 H Nucleated RBC % 0.4 H Sodium 146 H Potassium 3.6 Chloride 114 H Carbon Dioxide 20 L Anion Gap 12 BUN 13 Creatinine 1.37 H Estim Creat Clear Calc 39 Estimated GFR 38 L Glucose 92 Calcium 8.7 Magnesium 1.6 Total Bilirubin 1.1 AST 16 ALT 8 Alkaline Phosphatase 52 Total Protein 6.0 L Albumin 3.8
[2024-06-26 17:46] LABS: Lactic Acid Reflex 0.8 mmol/L (0.7-2.0)
[2024-06-26] MEDS: FUROSEMIDE INJ 40 MG/4 ML VIAL 20 MG IV PUSH (19:11)
[2024-06-26] MEDS: traZODone HCL 50 MG TABLET 200 MG PO (20:44)
[2024-06-26 21:13] VITALS: BP 154/74; PULSE 90; RESP 18; TEMP 36.6; O2SAT 94
[2024-06-26 22:00] LABS: Creatinine Urine 34.8 mg/dL; Total Protein Urine Random 25 mg/dL; Ur Ttl Prot Creatinine Ratio 0.72 mg/mg (0-0.20)
[2024-06-27] MEDS: LEVOTHYROXINE SODIUM 75 MCG TABLET PO (04:55)
[2024-06-27] MEDS: metroNIDAZOLE 500 MG TABLET PO ×3 (04:55→20:51)
[2024-06-27 06:00] VITALS: BP 155/63; PULSE 73; RESP 18; TEMP 36.4; O2SAT 94
[2024-06-27 07:42] LABS: Basophils Percent Auto 0.3 % (0.2-1.2); Eosinophils Absolute Auto 0.1 K/mm3 (0-0.3); Hematocrit 30.5 % (37.0-47.0); Hemoglobin 9.8 g/dL (12.0-15.0); Immature Granulocyte Absolute 0.25 K/mm3 (0.00-0.031); Immature Granulocyte Percent A 2.1 % (0-0.5); Lymphocytes Absolute Auto 1.34 K/mm3 (0.9-3.2); Lymphocytes Percent Auto 11.5 % (18.3-44.2); Mean Corpuscular HGB Conc 32.1 g/dl (32-36); Mean Corpuscular Hemoglobin 30.9 pg (26-34); Mean Corpuscular Volume 96.2 fl (80-100); Mean Platelet Volume 10.5 fl (7.4-10.4); Monocytes Absolute Auto 1.1 K/mm3 (0.1-0.6); Monocytes Percent Auto 9.6 % (2.6-8.5); Neutrophils Absolute Auto 8.8 K/mm3 (1.3-6.7); Neutrophils Percent Auto 75.5 % (45.5-73.1); Nucleated Red Blood Cells Perc 0.2 % (0.0-0.2); Platelet Count Result 200 k/mm3 (150-375); Red Blood Count 3.17 M/mm3 (4.2-5.4); Red Cell Distribution Width 19.3 % (11.5-14.5); White Blood Count 11.7 K/mm3 (4.5-10.0)
[2024-06-27 08:07] LABS: Albumin Level 3.4 g/dL (3.5-5.1); Anion Gap 9 mmol/L (4-12); Blood Urea Nitrogen 15 mg/dL (7-17); Calcium 9.1 mg/dL (8.4-10.2); Carbon Dioxide 26 mmol/L (22-30); Chloride 109 mmol/L (98-107); Estimated CRCL calculation 38 ml/min; Estimated Glomerular Filt Rate 37; Glucose 97 mg/dL (65-110); Magnesium 1.5 mg/dL (1.6-2.3); Potassium 3.6 mmol/L (3.4-5.0); Sodium 144 mmol/L (137-145)
[2024-06-27] MEDS: CYANOCOBALAMIN INJ 1,000 MCG/ML VIAL 1000 MCG IM (09:41)
[2024-06-27] MEDS: CYANOCOBALAMIN 1,000 MCG TABLET 1000 MCG PO (09:41)
[2024-06-27] MEDS: FIDAXOMICIN 200 MG TABLET PO ×2 (09:41→20:50)
[2024-06-27 09:42] VITALS: PULSE 80
[2024-06-27] MEDS: MONTELUKAST SODIUM 10 MG TABLET PO (09:42)
[2024-06-27] MEDS: METOPROLOL TARTRATE 50 MG TAB PO ×2 (09:42→20:51)
[2024-06-27] MEDS: ACIDOPHILUS/BULGARICUS CHEWABLE TABLET 1 TABLET PO ×4 (09:42→20:50)
[2024-06-27] MEDS: FOLIC ACID 1 MG TABLET PO (09:42)
[2024-06-27] MEDS: SODIUM BICARBONATE TAB 650 MG TABLET PO (09:42)
[2024-06-27] MEDS: OLMESARTAN MEDOXOMIL 20 MG TABLET 40 MG PO (09:42)
[2024-06-27] MEDS: MAGNESIUM SULF 2 GM/WATER 50ML 2 GM/50 ML BAG IVPB (09:43)
[2024-06-27] MEDS: POTASSIUM CHLORIDE 10 MEQ ER TABLET PO (09:43)
[2024-06-27] MEDS: PANTOPRAZOLE 40 MG TABLET PO (09:43)
[2024-06-27] MEDS: POTASSIUM/PHOSPHORUS/SODIUM 1.5 GM PACKET 1 PACKET PO (09:43)
--- NOTE | 2024-06-27 11:25 | P.PNIM_ITS ---
Progress Note: A&P Assessment and Plan (1) Diverticulitis: Code(s): K57.92 - Diverticulitis of intestine, part unspecified, without perforation or abscess without bleeding Status: Acute Assessment and Plan: Patient presents with diarrhea and weakness. Previous hx of diverticulitis with microperf not requiring surgical intervention CT abd/pelvis showing mural thickening with surrounding inflammatory changes in the distal descending/proximal sigmoid colon with extraluminal air but no gross perforation or drainable fluid collection. CXR was clear. General surgery consulted. Patient started on Zosyn (06/18-06/21) then Augmentin through the morning of 06/23/24. Was on full liquid but was improving so diet advanced to low fiber. Symptoms worse 06/25. CT Abd/Pelvis overnight showing a small persistent col lection of extraluminal gas adjacent to the descending colon abutting the anterior abdominal wall but no evidence for abscess formation and interval development of moderate bilateral pleural effusions and ascites. No obvious peritoneal signs and ascites is minimal. WBC was normal. Suspect worsening symptoms related to partially treated diverticulitis so abx resumed. Patient better today but still with n/v. Follow. Bumex to improve fluid status (2) Elevated troponin: Code(s): R79.89 - Other specified abnormal findings of blood chemistry Status: Acute Assessment and Plan: Troponins were mildly elevated and trending down (0.071) EKG showing normal sinus rhythm with possible old anterior GA. Patient denies chest pain Elevated Trop likely ischemic demand (3) C. difficile diarrhea: Code(s): A04.72 - Enterocolitis due to Clostridium difficile, not specified as recurrent Status: Acute Assessment and Plan: Patient presents with diarrhea and has a previous history of C diff infection in 2021 C-diff toxin positive and was started on fidaxomicin Diarrhea still persistent so probiotics added. Augmentin was discontinued. No diffuse colitis by CT scan. Still having loose stools but frequency better. Will continue to monitor Continue fidaxomicin to complete 10 days course. (4) UTI (urinary tract infection): Code(s): N39.0 - Urinary tract infection, site not specified Status: Acute Assessment and Plan: UA with leukocytes, urine wbc's and 4+ bacteriuria. UCx growing EColi sensitive to Zosyn and Augment. She completed 5 days of abx treatment (5) CKD (chronic kidney disease): Qualifiers: Chronic kidney disease stage: unspecified stage Qualified Code(s): N18.9 - Chronic kidney disease, unspecified Code(s): N18.9 - Chronic kidney disease, unspecified Status: Chronic Assessment and Plan: Cr 1.37 on admission and has remained stable during her hospital course. Avoid nephrotoxic drugs. Avoid NSAIDs. Monitor electrolytes, UOP and renal fxn. (6) Anemia: Code(s): D64.9 - Anemia, unspecified Status: Acute Assessment and Plan: Hgb 11.1 on admission. She has an intermittent anemia that drops to 10-11 range at times. Hgb trending down here to 6.8 (06/25) and she received 1U PRBC. Iron normal with TIBC 117 and iron sat 41%. Ferritin 220. B12 low at 220 and folaic acid low end of normal at 2.9. She had been started on Albumin the day before so consider related to dilution. Hgb today 9.8 B12 being replaced. Add Bumex (7) B12 deficiency anemia: Code(s): D51.9 - Vitamin B12 deficiency anemia, unspecified Status: Acute Assessment and Plan: As above. Replace B12. (8) Hypoalbuminemia: Code(s): E88.09 - Other disorders of plasma-protein metabolism, not elsewhere classified Status: Acute Assessment and Plan: Albumin has been low in the past. Albumin 2.5 on admission and it dropped to 1.8. Albumin given and level normalized She does appear to have diffuse nonpitting edema. Urine protein 1+ but could be related to recent infection. Could have protein loss due to GI source with diarrhea. Urine prot/Cr ration 0.7gm. Consider also malnutrition. Continue dietary supplements. Albumin better. (9) Gout attack: Qualifiers: Gout etiology: unspecified cause Gout site: foot Laterality: right Qualified Code(s): M10.9 - Gout, unspecified Code(s): M10.9 - Gout, unspecified Status: Acute Assessment and Plan: Patient was treated with colchicine (10) Hypertension: Qualifiers: Hypertension type: primary hypertension Qualified Code(s): I10 - Essential (primary) hypertension Code(s): I10 - Essential (primary) hypertension Status: Chronic Assessment and Plan: Patient's blood pressure was reviewed on 06/27 Blood pressure mildly elevated with SBP 150-170 range. Will continue to monitor. Bumex to be given (11) Hypothyroidism: Qualifiers: Hypothyroidism type: unspecified Qualified Code(s): E03.9 - Hypothyroidism, unspecified Code(s): E03.9 - Hypothyroidism, unspecified Status: Acute Assessment and Plan: TSH normal in April. Continue levothyroxine Plan Code status: DNR DVT prophylaxis: SCDs Subjective Date/time seen: 06/27/24 11:25 Interval history: 73yo female with HTN, SRIRAM intolerant to CPAP, COPD and anxiety here for diarrhea. Feeling better. Minimal abd pain now. Still with diarrhea but only 1-2 BMs per day. Also still with nausea and vomiting mostly after eating. Exam Narrative: AF 97.5 155/63 80 18 94% RA Gen - NARD Chest - distant clear BS CV - RRR S1/S2 Abd - soft. +BS. Minimal tenderness. Ext - diffuse non-pitting edema noted in her upper and lower extremities Psych - Nml mood and affect Skin - Warm and dry Objective Data Vital Signs Vital Signs: Vital Signs - 24 hr 06/26/24 14:00 06/26/24 20:00 06/26/24 21:13 Temperature 96.9 F L 97.9 F Pulse Rate 64 90 Respiratory Rate 18 18 Blood Pressure 154/62 H 154/74 H Pulse Oximetry 98 94 Oxygen Delivery Room Air 06/27/24 06:00 06/27/24 09:42 Temperature 97.5 F L Pulse Rate 73 80 Respiratory Rate 18 Blood Pressure 155/63 H Pulse Oximetry 94 Oxygen Delivery Intake/Output Intake/Output: Intake & Output 06/24/24 06/25/24 06/26/24 06/27/24 23:59 23:59 23:59 23:59 Intake Total 1245 1310 1170 737 Output Total 1100 Balance 1245 1310 1170 -363 Meds/Results Medications: Active Medications Generic Name Dose Route Start Last Admin Trade Name Freq PRN Reason Stop Dose Admin Acetaminophen 650 mg 06/18/24 17:42 Acetaminophen 325 Mg Tablet PO Q4H PRN Mild Pain (1-3) or Fever Alprazolam 1 mg 06/18/24 23:09 06/26/24 16:27 Alprazolam (*Crx) 0.5 Mg Tablet PO 1 mg QID PRN Administration anxiety Cyanocobalamin 1,000 mcg 06/26/24 09:00 06/27/24 09:41 Cyanocobalamin 1,000 Mcg Tablet PO 1,000 mcg QAM [facility] Administration Fidaxomicin 200 mg 06/21/24 13:25 06/27/24 09:41 Fidaxomicin 200 Mg Tablet PO 06/30/24 21:01 200 mg Q12HR [facility] Administration Folic Acid 1 mg 06/26/24 09:00 06/27/24 09:42 Folic Acid 1 Mg Tablet PO 1 mg DAILY [facility] Administration Heparin Sodium (Porcine) 5,000 units 06/19/24 11:00 06/24/24 21:31 Heparin Sodium 5,000 Units/Ml Vial SUB-Q 5,000 units Q12HR [facility] Administration Lactobacillus Acidophilus 1 tablet 06/23/24 13:00 06/27/24 09:42 Acidophilus/Bulgaricus Chewable Tablet PO 1 tablet QID [facility] Administration Levofloxacin 750 mg 06/26/24 09:00 06/26/24 09:04 Levofloxacin 750 Mg Tablet PO 07/04/24 09:01 750 mg Q48H [facility] Administration Levothyroxine Sodium 75 mcg 06/19/24 06:30 06/27/24 04:55 Levothyroxine Sodium 75 Mcg Tablet PO 75 mcg DAILY@0630 [facility] Administration Meclizine HCl 12.5 mg 06/18/24 23:09 Meclizine Hcl 12.5 Mg Tablet PO TID PRN dizziness Metoprolol Tartrate 50 mg 06/18/24 23:10 06/27/24 09:42 Metoprolol Tartrate 50 Mg Tab PO 50 mg Q12HR [facility] Administration Metronidazole 500 mg 06/26/24 14:00 06/27/24 04:55 Metronidazole 500 Mg Tablet PO 07/06/24 06:01 500 mg Q8HR [facility] Administration Montelukast Sodium 10 mg 06/19/24 09:00 06/27/24 09:42 Montelukast Sodium 10 Mg Tablet PO 10 mg DAILY [facility] Administration Olmesartan 40 mg 06/19/24 09:00 06/27/24 09:42 Olmesartan Medoxomil 20 Mg Tablet PO 40 mg QAM [facility] Administration Pantoprazole Sodium 40 mg 06/19/24 09:00 06/27/24 09:43 Pantoprazole 40 Mg Tablet PO 40 mg QAM [facility] Administration Potassium Chloride 10 meq 06/19/24 09:00 06/27/24 09:43 Potassium Chloride 10 Meq Er Tablet PO 10 meq DAILY [facility] Administration Sodium Bicarbonate 650 mg 06/22/24 10:30 06/27/24 09:42 Sodium Bicarbonate Tab 650 Mg Tablet PO 650 mg BID [facility] Administration Tramadol HCl 100 mg 06/18/24 23:09 06/24/24 21:32 Tramadol Hcl (*Crx) 50 Mg Tablet PO 100 mg HS PRN Administration pain 4-10 Tramadol HCl 50 mg 06/18/24 23:09 06/26/24 16:26 Tramadol Hcl (*Crx) 50 Mg Tablet PO 50 mg QAM PRN Administration pain 4-10 Trazodone HCl 200 mg 06/18/24 23:15 06/26/24 20:44 Trazodone Hcl 50 Mg Tablet PO 200 mg HS [facility] Administration Radiology Results: ITS Impressions Chest X-Ray 06/18/24 16:15 IMPRESSION: 1. No acute cardiopulmonary disease. Abdomen/Pelvis CT 06/26/24 07:13 IMPRESSION: 1. Small persistent collection of extraluminal gas adjacent to the descending colon abutting the anterior abdominal wall, images 132-139. No evidence for abs cess formation. Cannot exclude mild acute diverticulitis. 2: Interval development of moderate bilateral pleural effusions and ascites. Labs Labs: Laboratory Results - last 24 hr 06/26/24 06/26/24 06/27/24 17:15 21:36 07:30 WBC 11.7 H RBC 3.17 L Hgb 9.8 L Hct 30.5 L MCV 96.2 MCH 30.9 MCHC 32.1 RDW 19.3 H Plt Count 200 MPV 10.5 H Immature Gran % (Auto) 2.1 H Neut % (Auto) 75.5 H Lymph % (Auto) 11.5 L [place] % (Auto) 9.6 H Eos % (Auto) 1.0 Baso % (Auto) 0.3 Lymph # (Auto) 1.34 [place] # (Auto) 1.1 H Eos # (Auto) 0.1 Baso # (Auto) 0.0 Abs Immat Gran (auto) 0.25 H Absolute Neuts (auto) 8.8 H Absolute Nucleated RBC 0.020 H Nucleated RBC % 0.2 Sodium 144 Potassium 3.6 Chloride 109 H Carbon Dioxide 26 Anion Gap 9 BUN 15 Creatinine 1.40 H Estim Creat Clear Calc 38 Estimated GFR 37 L Glucose 97 Lactic Acid 0.8 Calcium 9.1 Phosphorus 2.0 L Magnesium 1.5 L Albumin 3.4 L U Random Total Protein 25 Urine Creatinine 34.8 Protein/Creat Ratio 2 0.72 H
[2024-06-27 14:00] VITALS: BP 173/89; PULSE 79; RESP 16; TEMP 36.6; O2SAT 93
[2024-06-27] MEDS: SODIUM BICARBONATE TAB 325 MG TABLET PO (17:24)
[2024-06-27] MEDS: BUMETANIDE INJ 1 MG/4 ML VIAL IV PUSH (18:45)
[2024-06-27 20:00] VITALS: PULSE 84; RESP 20; O2SAT 94
[2024-06-27] MEDS: traZODone HCL 50 MG TABLET 200 MG PO (20:50)
[2024-06-27 21:48] VITALS: BP 136/54; PULSE 84; RESP 20; TEMP 36.3; O2SAT 94
[2024-06-27] MEDS: traMADol HCL (*CRX) 50 MG TABLET 100 MG PO (23:37)
[2024-06-28] MEDS: metroNIDAZOLE 500 MG TABLET PO ×2 (05:43→13:23)
[2024-06-28] MEDS: LEVOTHYROXINE SODIUM 75 MCG TABLET PO (05:43)
[2024-06-28 06:00] VITALS: BP 152/68; PULSE 81; RESP 18; TEMP 36.4; O2SAT 92
[2024-06-28 07:37] LABS: Basophils Percent Auto 0.4 % (0.2-1.2); Eosinophils Absolute Auto 0.2 K/mm3 (0-0.3); Eosinophils Percent Auto 1.7 % (0-4.4); Hemoglobin 9.9 g/dL (12.0-15.0); Immature Granulocyte Absolute 0.18 K/mm3 (0.00-0.031); Immature Granulocyte Percent A 1.6 % (0-0.5); Lymphocytes Absolute Auto 1.72 K/mm3 (0.9-3.2); Lymphocytes Percent Auto 15.7 % (18.3-44.2); Mean Corpuscular HGB Conc 31.9 g/dl (32-36); Mean Corpuscular Hemoglobin 31.2 pg (26-34); Mean Corpuscular Volume 97.8 fl (80-100); Mean Platelet Volume 10.9 fl (7.4-10.4); Monocytes Absolute Auto 1.2 K/mm3 (0.1-0.6); Monocytes Percent Auto 10.7 % (2.6-8.5); Neutrophils Absolute Auto 7.7 K/mm3 (1.3-6.7); Neutrophils Percent Auto 69.9 % (45.5-73.1); Platelet Count Result 185 k/mm3 (150-375); Red Blood Count 3.17 M/mm3 (4.2-5.4); Red Cell Distribution Width 19.3 % (11.5-14.5)
[2024-06-28 07:38] LABS: Albumin Level 3.2 g/dL (3.5-5.1); Anion Gap 12 mmol/L (4-12); Blood Urea Nitrogen 17 mg/dL (7-17); Calcium 8.9 mg/dL (8.4-10.2); Carbon Dioxide 23 mmol/L (22-30); Chloride 105 mmol/L (98-107); Estimated CRCL calculation 39 ml/min; Estimated Glomerular Filt Rate 38; Glucose 92 mg/dL (65-110); Magnesium 1.7 mg/dL (1.6-2.3); Phosphorus 2.1 mg/dL (2.5-4.5); Potassium 2.9 mmol/L (3.4-5.0); Sodium 140 mmol/L (137-145)
[2024-06-28] MEDS: BUMETANIDE INJ 1 MG/4 ML VIAL IV PUSH ×2 (08:54→16:30)
[2024-06-28] MEDS: MAGNESIUM SULF 2 GM/WATER 50ML 2 GM/50 ML BAG IVPB (08:54)
[2024-06-28] MEDS: POTASSIUM CHLORIDE 10 MEQ ER TABLET PO (08:55)
[2024-06-28] MEDS: POTASSIUM/PHOSPHORUS/SODIUM 1.5 GM PACKET 1 PACKET PO ×3 (08:55→17:39)
[2024-06-28] MEDS: POTASSIUM CHLORIDE 20 MEQ PACKET (FOR LIQUID) 40 MEQ PO (08:55)
[2024-06-28 08:56] VITALS: PULSE 80
[2024-06-28] MEDS: METOPROLOL TARTRATE 50 MG TAB PO (08:56)
[2024-06-28] MEDS: MONTELUKAST SODIUM 10 MG TABLET PO (08:56)
[2024-06-28] MEDS: SODIUM BICARBONATE TAB 325 MG TABLET PO ×2 (08:56→16:30)
[2024-06-28] MEDS: levoFLOXacin 750 MG TABLET PO (08:56)
[2024-06-28] MEDS: FIDAXOMICIN 200 MG TABLET PO (08:56)
[2024-06-28] MEDS: FOLIC ACID 1 MG TABLET PO (08:56)
[2024-06-28] MEDS: PANTOPRAZOLE 40 MG TABLET PO (08:56)
[2024-06-28] MEDS: ACIDOPHILUS/BULGARICUS CHEWABLE TABLET 1 TABLET PO ×3 (08:56→16:30)
[2024-06-28] MEDS: OLMESARTAN MEDOXOMIL 20 MG TABLET 40 MG PO (08:56)
[2024-06-28] MEDS: CYANOCOBALAMIN 1,000 MCG TABLET 1000 MCG PO (08:57)
--- NOTE | 2024-06-28 10:18 | PCNFU ---
Nutrition Follow-Up Complete: Inadequate oral intake related to acute diverticulitis as evidenced by report of poor appetite 3 days, clear liquids Adequate PO intake at least 75% meals and supplements Goal: Pt current nutrition is Low fiber diet. Ensure Enlive BID (350 kcal, 20 g protein each) . Nutrition recommendation: No new nutrition recommendations. Continue current nutrition care plan and orders. Agree with orders Last recorded weight is 97.9 kg. Bowel Motility: +2 BMs. Still soft but not as frequent Labs Reviewed: Hgb 9.9, Hct 31, Alb 3.2, K+ 2.9, Cre 1.35 Meds Noted: Protonix, Zofran, heparin, bumex Skin: No pressure Additional Notes: Not adding Banatrol for C-diff because of low fiber diet. Intakes remain poor 5-20% because of abdominal pain. Continue current orders Monitoring intakes, diet advancement, weights, labs, stool patterns, plan of care Follow up in 5 days
[2024-06-28] MEDS: POTASSIUM CHLORIDE 20 MEQ PACKET (FOR LIQUID) PO (12:25)
[2024-06-28 14:00] VITALS: BP 143/53; PULSE 81; RESP 18; TEMP 36; O2SAT 95
[2024-06-28 16:11] LABS: Albumin Level 3.3 g/dL (3.5-5.1); Anion Gap 9 mmol/L (4-12); Blood Urea Nitrogen 19 mg/dL (7-17); Carbon Dioxide 28 mmol/L (22-30); Chloride 104 mmol/L (98-107); Estimated CRCL calculation 38 ml/min; Estimated Glomerular Filt Rate 37; Glucose 88 mg/dL (65-110); Phosphorus 2.4 mg/dL (2.5-4.5); Potassium 4.8 mmol/L (3.4-5.0); Sodium 141 mmol/L (137-145)
--- NOTE | 2024-06-28 16:47 | PCPTNOTE ---
On 06/28/24, the student, COURTNEY Vigil, provided care and completed [facility] documentation on this patient. I have reviewed the student's documentation and agree with the findings.
--- NOTE | 2024-06-28 17:16 | P.DS_ITS ---
DS: Admitting Diagnosis Discharge Date 06/28/24 Admitting Diagnosis Diarrhea DS: Discharge Diagnosis Discharge Diagnosis (1) Diverticulitis: Code(s): K57.92 - Diverticulitis of intestine, part unspecified, without perforation or abscess without bleeding Status: Acute (2) Elevated troponin: Code(s): R79.89 - Other specified abnormal findings of blood chemistry Status: Acute (3) C. difficile diarrhea: Code(s): A04.72 - Enterocolitis due to Clostridium difficile, not specified as recurrent Status: Acute (4) UTI (urinary tract infection): Code(s): N39.0 - Urinary tract infection, site not specified Status: Acute (5) CKD (chronic kidney disease): Qualifiers: Chronic kidney disease stage: unspecified stage Qualified Code(s): N18.9 - Chronic kidney disease, unspecified Code(s): N18.9 - Chronic kidney disease, unspecified Status: Chronic (6) Anemia: Code(s): D64.9 - Anemia, unspecified Status: Acute (7) B12 deficiency anemia: Code(s): D51.9 - Vitamin B12 deficiency anemia, unspecified Status: Acute (8) Hypoalbuminemia: Code(s): E88.09 - Other disorders of plasma-protein metabolism, not elsewhere classified Status: Acute (9) Gout attack: Qualifiers: Gout site: foot Gout etiology: unspecified cause Laterality: right Qualified Code(s): M10.9 - Gout, unspecified Code(s): M10.9 - Gout, unspecified Status: Acute (10) Hypertension: Qualifiers: Hypertension type: primary hypertension Qualified Code(s): I10 - Essential (primary) hypertension Code(s): I10 - Essential (primary) hypertension Status: Chronic (11) Hypothyroidism: Qualifiers: Hypothyroidism type: unspecified Qualified Code(s): E03.9 - Hypothyroidism, unspecified Code(s): E03.9 - Hypothyroidism, unspecified Status: Acute DS: Summary Hospital Course Reason for hospitalization: 73yo female with HTN, SRIRAM intolerant to CPAP, COPD and anxiety here for diarrhea. Please see H&P for details. Hospital Course: Patient presents with diarrhea and weakness. Previous hx of diverticulitis with microperforation but not requiring surgical intervention. CT abd/pelvis showing mural thickening with surrounding inflammatory changes in the distal descending/proximal sigmoid colon with extraluminal air but no gross perforation or drainable fluid collection. CXR was clear. General surgery was consulted. Patient started on Zosyn (06/18-06/21) then Augmentin through the morning of 06/23/24. She was on full liquid but was improving so diet advanced to low fiber. Symptoms worsened 06/25. CT Abd/Pelvis overnight showing a small persistent collection of extraluminal gas adjacent to the descending colon abutting the anterior abdominal wall but no evidence for abscess formation and interval development of moderate bilateral pleural effusions and ascites. No obvious peritoneal signs and ascites was minimal. WBC was normal. Suspect worsening symptoms related to partially treated diverticulitis so abx resumed. Patient better today with resolution of abdominal pain. Troponins were mildly elevated and trending down. EKG showing normal sinus rhythm with possible old anterior CO. Patient denies chest pain. Elevated Trop likely ischemic demand. Patient presents with diarrhea and has a previous history of C diff infection in 2021. C-diff toxin positive and was started on fidaxomicin. Diarrhea still persistent so probiotics added. Augmentin was discontinued but abx had to be added back as mentioned above. No diffuse colitis by CT scan. Still having loose stools but frequency better (1-2/day). Continue fidaxomicin for 1 week after stopping abx. UA with leukocytes, urine wbc's and 4+ bacteriuria. UCx growing EColi sensitive to Zosyn and Augmentin. She completed 5 days of abx treatment. Cr 1.37 on admission and has remained stable during her hospital course. Hgb 11.1 on admission. She has an intermittent anemia that drops to 10-11 range in the past. Hgb trending down here to 6.8 (06/25) and she received 1U PRBC. Iron normal with TIBC 117 and iron sat 41%. Ferritin 220. B12 low at 220 and folic acid low end of normal at 2.9. She had been started on Albumin the day before so consider related to dilution. Hgb climbed to the 9 range and remained stable. B12 was replaced. Albumin has been low in the past. Albumin 2.5 on admission and it dropped to 1.8. Albumin given and levels normalized. She does appear to have diffuse nonpitting edema. Urine protein 1+ but could be related to recent infection. Could have protein loss due to GI source with diarrhea. Urine prot/Cr ration 0.7gm. Dietary supplements added. Patient with gout attack treated with colchicine. She did well. She worked with PT/OT. She was accepted for rehab and wa able to be discharged on 06/28/24. Status at Discharge Cognitive/behavioral status at discharge: stable Time Spent with Patient Time attestation: Total time spent providing and/or coordinating discharge services: 38 minutes Time spent: Greater than 30 minutes Exam Narrative: AF96.8 143/53 81 18 95% RA Gen - NARD Chest - decreased BS in the bases o/w clear CV - RRR S1/S2 Abd - soft. +BS. NT/ND Ext - decrease in the non-pitting edema UE>LE Psych - Nml mood and affect Skin - Warm and dry DS: Data Data Completed and Pending Labs on day of discharge: Labs from last 24 hours 06/28/24 06/28/24 15:04 07:07 WBC 11.0 H RBC 3.17 L Hgb 9.9 L Hct 31.0 L MCV 97.8 MCH 31.2 MCHC 31.9 L RDW 19.3 H Plt Count 185 MPV 10.9 H Immature Gran % (Auto) 1.6 H Neut % (Auto) 69.9 Lymph % (Auto) 15.7 L [place] % (Auto) 10.7 H Eos % (Auto) 1.7 Baso % (Auto) 0.4 Lymph # (Auto) 1.72 [place] # (Auto) 1.2 H Eos # (Auto) 0.2 Baso # (Auto) 0.0 Abs Immat Gran (auto) 0.18 H Absolute Neuts (auto) 7.7 H Absolute Nucleated RBC 0.000 Nucleated RBC % 0.0 Sodium 141 140 Potassium 4.8 2.9 L Chloride 104 105 Carbon Dioxide 28 23 Anion Gap 9 12 BUN 19 H 17 Creatinine 1.39 H 1.35 H Estim Creat Clear Calc 38 39 Estimated GFR 37 L 38 L Glucose 88 92 Calcium 9.0 8.9 Phosphorus 2.4 L 2.1 L Magnesium 1.7 Albumin 3.3 L 3.2 L Discharge Plan Discharge Attending physician on discharge: Jonathan Lakhani Discharging Clinician: Jonathan Lakhani Anticipated Discharge Date/Time: 06/28/24 17:31 Patient Disposition: SNF Activity: as tolerated Diet: heart healthy and low fiber Discharge Instructions: Per Care Coordination. Patient to have [facility] for RN/PT/OT kathleenal and treat [phone]. They will contact patient to schedule [facility] visit[facility] Check blood pressure 1 to 2 times a day. Record for the doctor's review. Take precautions to avoid falls. Rise slowly from a lying or sitting position. Pause before standing or walking. Check daily morning weights after voiding. Call the doctor if the patient gains more than 3 lb in 2 days or 5 lb in 1 week. Contact the doctor if the patient has fevers, worsening diarrhea or other worrisome symptoms. Avoid NSAIDs (ibuprofen, naproxen, Aleve). Tylenol is safe to take. Follow-up with the provider at the facility. Thank you for using [facility] for your health care needs. Patient Instructions: Antibiotic Form, Pain Management (GEN) Patient Language: Divehi Stand Alone Forms: General Discharge Information Discharge Medications: New metronidazole 500 mg Tablet 500 mg PO Q8HR Qty: 23 0RF Dificid 200 mg Tablet 200 mg PO Q12HR Qty: 27 0RF Rx Instructions: Treat through 07/11/24. cyanocobalamin (vitamin B-12) [Vitamin B-12] 1,000 mcg Tablet 1,000 mcg PO QAM Qty: 30 0RF folic acid 1 mg Tablet 1 mg PO DAILY Qty: 30 0RF levofloxacin 750 mg tablet 750 mg PO Q48H Qty: 3 0RF Rx Instructions: Start on 06/30/24 and give on 07/02 and 07/04/24. Continued levothyroxine [Synthroid] 75 mcg tablet 1 tablet PO DAILY trazodone 100 mg tablet 2 tablet PO HS metoprolol tartrate [Lopressor] 50 mg tablet 1 tablet PO BID montelukast [Singulair] 10 mg tablet 1 tablet PO DAILY meclizine 12.5 mg Tablet 12.5 mg PO TID PRN (Reason: dizziness) Qty: 60 0RF potassium chloride [Klor-Con 10] 10 mEq tablet extended release 1 tablet PO DAILY Qty: 30 0RF olmesartan [Benicar] 20 mg Tablet 40 mg PO QAM Qty: 60 0RF alprazolam 1 mg tablet 1 mg PO QID PRN (Reason: anxiety) Qty: 5 0RF tramadol 50 mg tablet 50 mg PO DAILY PRN (Reason: pain (scale score 4-6)) Qty: 5 0RF tramadol 50 mg tablet 100 mg PO HS PRN (Reason: pain (scale score 4-6)) Qty: 5 0RF Held esomeprazole magnesium [Nexium] 40 mg capsule,delayed release(DR/EC) 1 cap PO 2XD Hold Instructions: HOLD - Resume if/when okay with provider Discontinued ondansetron 4 mg tablet,disintegrating 4 mg PO Q8H PRN (Reason: nausea and vomiting) Qty: 60 0RF metoclopramide HCl [Reglan] 10 mg tablet 10 mg PO Q6H PRN (Reason: nausea and vomiting) Qty: 30 0RF Other Ambulatory Orders: Renal Function Panel (Routine) Timeframe: 1 Week Location: Determined by Patient Ordered By: Jonathan Lakhani Date of admission: 06/21/24 14:41 Primary Care Provider: UNKNOWN,DOCTOR Admitting Provider: Patty Toledo Attending physician on admission: Kayley Almaraz Condition: Stable
== END 2024-06-28 19:33 | DRG 372 ==
LOC: ANHED 17:44 → ANHIMU 19:11 → ANH3MEDSUR 06-19 18:26
PROVIDERS: Internal Medicine; Nurse Practitioner Family; Admitting Provider Internal Medicine; Emergency Provider Emergency Medicine; Visit Provider Internal Medicine
DX: A04.72 Enterocolitis due to Clostridium difficile, not specified as recurrent (principal); I24.89 Other forms of acute ischemic heart disease; N39.0 Urinary tract infection, site not specified; K57.20 Diverticulitis of large intestine with perforation and abscess without bleeding; I12.9 Hypertensive chronic kidney disease with stage 1 through stage 4 chronic kidney disease, or unspecified chronic kidney disease; N18.9 Chronic kidney disease, unspecified; E03.9 Hypothyroidism, unspecified; D51.9 Vitamin B12 deficiency anemia, unspecified; D53.1 Other megaloblastic anemias, not elsewhere classified; E88.09 Other disorders of plasma-protein metabolism, not elsewhere classified; J44.9 Chronic obstructive pulmonary disease, unspecified; K44.9 Diaphragmatic hernia without obstruction or gangrene; M10.9 Gout, unspecified; R13.10 Dysphagia, unspecified; G47.30 Sleep apnea, unspecified; F41.9 Anxiety disorder, unspecified; Z20.822 Contact with and (suspected) exposure to COVID-19; Z87.891 Personal history of nicotine dependence
CPT/HCPCS: 36415; 36430; 71045; 74176; 74177; 80048; 80053; 80069; 80076; 81001; 82570; 82607; 82728; 82746; 83540; 83550; 83605; 83690; 83735; 84145; 84156; 84484; 85025; 85027; 85046; 86850; 86900; 86901; 86923; 87040; 87086; 87186; 87493; 87637; 93005; 96361; 96365; 96366; 96367; 96375; 96376; 97110; 97161; 97166; 97530; 97535; 99285; A9270; G0378; J1644; J1939; J1940; J2270; J2405; J2543; J3420; J3475; J7030; J7050; P9016; P9047; Q9967

== ENCOUNTER 2024-07-02 12:14 | Inpatient (IN) | payer MEDICARE, SELFPAY ==
[2024-07-02] VITALS (8 sets, daily range): BP systolic 146–195; BP diastolic 51–130; PULSE 85–107; RESP 15–20; TEMP 36.4–36.5; O2SAT 95–100; BMI 36.3
--- NOTE | ~2024-07-02 | MR_ITS ---
EXAMINATION: MR brain/brain stem wo/w con DATE: 07/04/2024 11:27 INDICATION: Seizure. TECHNIQUE: Magnetic resonance imaging (MRI) of the brain and brainstem was performed without and with intravenous contrast. COMPARISON: None. FINDINGS: There is an acute infarct in the left frontoparietal deep white matter. There is subcortica l increased T2-weighted signal intensity in the parietal and occipital lobes. There is no intracrania l hemorrhage or abnormal mass lesion. There is diffuse pachymeningeal enhancement. The ventricles are normal in size. The paranasal sinuses are clear. The orbits are normal. There is a trace left mastoi d effusion. IMPRESSION: 1. 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 2. Subcortical increased T2-weighted signal intensity in the parietal and occipital lobes, most likel y posterior reversible encephalopathy syndrome (PRES). 3. Diffuse pachymeningeal enhancement. This finding is most commonly secondary to prior lumbar punctu re or spine procedure. Reviewed, dictated and finalized at location A. LATE WORKER IMPRESSION: 1. 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 2. Subcortical increased T2-weighted signal intensity in the parietal and occip ital lobes, most likely posterior reversible encephalopathy syndrome (PRES). 3. Diffuse pachymeningeal enhancement. This finding is most commonly secondary to prior lumbar puncture or spine procedure.
--- NOTE | ~2024-07-02 | XR_ITS ---
EXAMINATION: XR chest 1V portable DATE: 07/02/2024 13:01 INDICATION: Altered mental status. TECHNIQUE: A single frontal view of the chest was obtained. COMPARISON: Chest single view 06/18/2024, CT abdomen and pelvis 06/26/2024 FINDINGS: There are small pleural effusions. There are airspace opacities at the lung bases. No pneum othorax. The heart size is normal. IMPRESSION: 1. Small pleural effusions. 2. Airspace opacities at the lung bases, consistent with atelectasis or less likely pneumonia. Reviewed, dictated and finalized at location A. FILLER IMPRESSION: 1. Small pleural effusions. 2. Airspace opacities at the lung bases, consistent with atelectasis or less li roly pneumonia.
--- NOTE | ~2024-07-02 | XR_ITS ---
EXAMINATION: XR barium swallow modified DATE: 07/24/2024 14:19 INDICATION: Dysphagia. TECHNIQUE: The patient was given barium-containing material of multiple consistencies to swallow by t he speech pathologist while I performed fluoroscopy. Fluoroscopy exposure time was 0.9 minutes. The n umber of fluoroscopy images saved to the PACS was 1. Dose-area product was 0.522 Gy-cm^2. FINDINGS: There is flash laryngeal penetration. No aspiration. IMPRESSION: 1. Flash laryngeal penetration. 2. Please refer to the speech therapy report for recommendations. Reviewed, dictated and finalized at location A. RAL MACHINIST
--- NOTE | ~2024-07-02 | CT_ITS ---
EXAMINATION: CT abdomen pelvis wo con DATE: 07/29/2024 13:51 INDICATION: Abdominal pain. TECHNIQUE: Computed tomography (CT) of the abdomen and pelvis was performed without intravenous contr ast. Automated exposure control and iterative reconstruction technique were employed. The dose-length product was 1316.56 mGy-cm. COMPARISON: CT abdomen and pelvis 07/02/2024 FINDINGS: The visualized portions of the lung bases demonstrate small pleural effusions and dependent atelectasis. The heart size is normal. There are coronary artery calcifications. No pericardial effu nadja. Calcifications in the liver and spleen are consistent with old granulomatous disease. There are changes of cholecystectomy. The pancreas and adrenal glands are normal. There is cortical thinning o f the kidneys. There is a Leija catheter in expected position. There are scattered diverticula in the colon. There is fat stranding around the descending colon, consistent with diverticulitis. There is a fistula to a 3.6 x 1.8 x 1.7 cm abscess. The appendix is not visualized. There are no dilated loops of bowel. There are no pathologically enlarged lymph nodes. There is no free intraperitoneal fluid. Body wall edema is noted. There is mild thoracic and lumbar spondylosis. There is mild chronic anteri or wedging of multiple vertebral bodies. IMPRESSION: 1. 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 2. Small pleural effusions. Reviewed, dictated and finalized at location A. RAL UTILITY WORKER
--- NOTE | ~2024-07-02 | US_ITS ---
EXAMINATION: US venous doppler [facility] DATE: 07/05/2024 14:15 INDICATION: Lower limb pain and swelling. TECHNIQUE: Grayscale ultrasound images without and with compression and Doppler ultrasound images of the bilateral lower extremity veins were obtained. COMPARISON: Ultrasound 08/07/2022 FINDINGS: There is thrombus in right common femoral vein, profunda (deep) femoral vein, femoral vein, popliteal vein, peroneal veins, and posterior tibial veins. The visualized portions of left common femoral vein, profunda femoral vein, femoral vein, popliteal v ein, peroneal veins, posterior tibial veins, and greater saphenous vein outflow are patent. IMPRESSION: 1. Extensive deep vein thrombosis in right lower limb. I called this result to Elsy Tao. Reviewed, dictated and finalized at location A. LRY JOBBER
--- NOTE | ~2024-07-02 | XR_ITS ---
EXAMINATION: XR chest 1V portable DATE: 07/11/2024 15:03 INDICATION: Upper respiratory symptoms. TECHNIQUE: A single frontal view of the chest was obtained on 2 radiographs. COMPARISON: Chest single view 07/02/2024, CT abdomen and pelvis 07/02/2024 FINDINGS: Calcified left lung nodules are consistent with old granulomatous disease. There are airspa ce opacities at left lung base. There is a small left pleural effusion. No pneumothorax. The heart si ze is normal. A right upper extremity peripherally inserted central venous catheter (PICC) is seen wi th tip in the superior vena cava. Surgical clips in the right upper quadrant are likely from cholecys tectomy. IMPRESSION: 1. Improved airspace opacities at left lung base, consistent with atelectasis versus pneumonia. 2. Improved small left pleural effusion. Reviewed, dictated and finalized at location A. HOP SERVICE CAPTAIN IMPRESSION: 1. Improved airspace opacities at left lung base, consistent with atelectasis v ersus pneumonia. 2. Improved small left pleural effusion.
--- NOTE | ~2024-07-02 | XR_ITS ---
EXAMINATION: XR chest 1V portable DATE: 07/17/2024 18:23 INDICATION: Shortness of breath. TECHNIQUE: A single frontal view of the chest was obtained. COMPARISON: Chest single view 07/11/2024, CT abdomen and pelvis 07/02/2024 FINDINGS: There are airspace opacities at left lung base. There is a small left pleural effusion. No pneumothorax. The heart size is normal. A right upper extremity peripherally inserted central venous catheter (PICC) is seen with tip in the superior vena cava. Surgical clips in the right upper quadran t are likely from cholecystectomy. IMPRESSION: 1. Airspace opacities at left lung base, consistent with atelectasis versus pneumonia. 2. Small left pleural effusion. Reviewed, dictated and finalized at location A. ANALYST IMPRESSION: 1. Airspace opacities at left lung base, consistent with atelectasis versus pne umonia. 2. Small left pleural effusion.
--- NOTE | ~2024-07-02 | CT_ITS ---
CT abdomen pelvis wo con Ordering provider: Patty Toledo MD History: 73 years Female with . F/u with diverticulitis with fistula and abscess . Comparison: July 29 2024 Technique: CT abdomen and pelvis without IV and without oral contrast. Automated exposure control and iterative reconstruction technique were employed. The dose-length product was 1544.25 mGy-cm. Findings: VISUALIZED LOWER CHEST: Bilateral basilar atelectasis versus pneumonia with bilateral pleural effusio n. UPPER ABDOMINAL ORGANS: Liver: Normal. Gallbladder: Status post cholecystectomy. Spleen: Normal. Stomach/duodenum: Normal. Pancreas: Normal. Adrenals: Normal. Kidneys: Normal. PELVIC ORGANS: The bladder is underfilled with Leija's catheter. BOWEL AND MESENTERY: Colon: Diverticulitis seen in the descending colon with the abscess seen previously is again demonstr ated with no significant change. Minimal fat stranding is seen around the descending colon. The appen rogerio is not demonstrated. Small Bowel: Normal. No obstruction. Peritoneum/mesentery: No free air or free fluid. No mesenteric lymphadenopathy. RETROPERITONEUM: Mild atheromatous disease of the abdominal aorta. No retroperitoneal lymphadenopat hy. Prominent right psoas muscle compared to the left. MUSCULOSKELETAL: Superficial soft tissues: Edema in the subcutaneous tissues of the left abdominal wall edema also see n in the right upper thigh and in the anterior abdominal wall in the area of the pelvis. Otherwise, T he superficial soft tissues are normal. Bones: Age appropriate degenerative changes of the spine. IMPRESSION: 1. Diverticulitis of the descending colon with adjacent atelectasis unchanged from previous examina tion. 2. Bilateral pleural effusion with adjacent atelectasis versus pneumonia Reviewed, dictated and finalized at location A. CUTTER IMPRESSION: 1. Diverticulitis of the descending colon with adjacent atelectasis unchanged from previous examination. 2. Bilateral pleural effusion with adjacent atelectasis versus pneumonia
--- NOTE | ~2024-07-02 | CT_ITS ---
EXAMINATION: CT brain wo con DATE: 07/29/2024 13:50 INDICATION: Seizure. TECHNIQUE: Computed tomography (CT) of the head was performed without intravenous contrast. The mA wa s adjusted according to patient size. Iterative reconstruction technique was employed. The dose-lengt h product was 605.33 mGy-cm. COMPARISON: Head CT 07/02/2024 FINDINGS: There are scattered areas of low attenuation in the cerebral white matter, which is within normal limits for the patient's age. There is no intracranial hemorrhage, acute infarction, or abnorm al intracranial mass lesion. The ventricles are normal in size. There is mild mucosal thickening in t he ethmoid sinuses. The orbits are normal. The mastoid air cells are normal. IMPRESSION: 1. Normal aging brain. Reviewed, dictated and finalized at location A. ICER IMPRESSION: 1. Normal aging brain.
--- NOTE | ~2024-07-02 | CT_ITS ---
EXAMINATION: CT brain wo con DATE: 07/02/2024 14:26 INDICATION: Altered mental status. TECHNIQUE: Computed tomography (CT) of the head was performed without intravenous contrast. The mA wa s adjusted according to patient size. Iterative reconstruction technique was employed. The dose-lengt h product was 908.00 mGy-cm. COMPARISON: None FINDINGS: There is mild motion artifact. There are scattered areas of low attenuation in the cerebral white matter, which is within normal limits for the patient's age. There is no intracranial hemorrha ge, acute infarction, or abnormal intracranial mass lesion. The ventricles are normal in size. The or bits are normal. There is mild mucosal thickening in the ethmoid sinuses. The mastoid air cells are n ormal. IMPRESSION: 1. Normal aging brain. Reviewed, dictated and finalized at location A. E ENGINEER IMPRESSION: 1. Normal aging brain.
--- NOTE | ~2024-07-02 | CT_ITS ---
EXAMINATION: CT abdomen pelvis w con DATE: 07/02/2024 14:27 INDICATION: Diffuse abdominal pain TECHNIQUE: Computed tomography (CT) of the abdomen and pelvis was performed with 100 mL Omnipaque-350 intravenous contrast. Automated exposure control and iterative reconstruction technique were employe d. The dose-length product was 1391.84 mGy-cm. COMPARISON: 06/18/2024 FINDINGS: Persistent partially visualized likely moderate-sized bilateral pleural effusions with dependent comp ressive atelectasis in the bilateral lower lobes. Calcified nodule at the lingula along with a spleni c calcification consistent with old granulomatous disease. Heart size is normal. No pericardial effus ion. Small sliding-type hiatal hernia. Cholecystectomy clips the gallbladder fossa. Liver, spleen, pa ncreas and bilateral adrenal glands are normal. 7 mm rim calcified splenic artery aneurysm at the lev el of the body of the pancreas. Likely age-related mild diffuse bilateral renal atrophy. No bowel obs truction. There is moderate diverticulosis scattered throughout the colon. Again seen is inflammatory stranding and some wall thickening along a short segment of the descending colon consistent with div erticulitis the stranding extends to a persistent approximately 1 cm collection of gas in the immedia tely adjacent left lower quadrant anterior abdominal wall. No drainable abscess or free intraperitone al gas or fluid in the abdomen or pelvis. Bladder is normal. The uterus is not identified and has lik ashlyn been surgically resected. There is edema at the bilateral flanks. Mild lumbar levocurvature with mild to moderate spondylosis. IMPRESSION: 1. Persistent small collection of extra luminal gas in the left lower quadrant anterior abdominal wal l immediately adjacent to a region of inflammatory stranding surrounding the descending colon consist ent with diverticulitis. No abscess or more remote free intraperineal gas or fluid. 2. Persistent moderate-sized bilateral posterior layering pleural effusions with dependent compressiv e atelectasis in the visualized lower lobes. Reviewed, dictated and finalized at location A. OR GROUP MANAGER IMPRESSION: 1. Persistent small collection of extra luminal gas in the left lower quadrant anterior abdominal wall immediately adjacent to a region of inflammatory strand ing surrounding the descending colon consistent with diverticulitis. No abscess or more remote free intraperineal gas or fluid. 2. Persistent moderate-sized bilateral posterior layering pleural effusions wit h dependent compressive atelectasis in the visualized lower lobes.
--- NOTE | 2024-07-02 12:21 | ECG_ITS ---
Test Date: 2024-07-02 12:28:04 Measurements Intervals [place] Rate: 98 P: 36 VA: 167 QRS: -9 QRSD: 81 T: 58 QT: 275 QTc: 351 Interpretive Statements SINUS RHYTHM NONSPECIFIC T-WAVE ABNORMALITY- DIFFUSE LEADS BASELINE ARTIFACT- I, II, III, AVR, AVL, AVF, V1-V6 BORDERLINE ECG Compared to ECG 06/18/2024 20:15:54 NO SIGNIFICANT CHANGE Electronically Signed On 07-02-2024 12:45:31 [employer] by Anthony Richmond D.O.
--- OUTSIDE RECORDS SUMMARY | 2024-07-02 13:15 | XMS_ITS | Clinical Summary ---
Author Organization [facility] Address [address] [place] [address]. [id number] [place] [id number] Care Team Providers Care Search Strategist Name Role Phone Unavailable Primary Care Provider [...] (1 - 1-dose 75+ series) 2024 Meningococcal B Vaccine Aged Out No l onger eligible based on patient's age to complete this topic Meningococcal Vaccine Aged Out No siena joo eligible based on patient's age to complete this topic RSV Immunizations Under 20 Months Aged Out No longer eligible based on patient's age to complete this topic
[2024-07-02 13:16] LABS: Basophils Percent Auto 0.1 % (0.2-1.2); Hematocrit 31.6 % (37.0-47.0); Hemoglobin 10.2 g/dL (12.0-15.0); Immature Granulocyte Percent A 0.6 % (0-0.5); Lymphocytes Absolute Auto 0.43 K/mm3 (0.9-3.2); Lymphocytes Percent Auto 2.8 % (18.3-44.2); Mean Corpuscular HGB Conc 32.3 g/dl (32-36); Mean Corpuscular Hemoglobin 31.7 pg (26-34); Mean Corpuscular Volume 98.1 fl (80-100); Mean Platelet Volume 10.3 fl (7.4-10.4); Monocytes Absolute Auto 0.8 K/mm3 (0.1-0.6); Monocytes Percent Auto 5.3 % (2.6-8.5); Neutrophils Absolute Auto 14.2 K/mm3 (1.3-6.7); Neutrophils Percent Auto 91.2 % (45.5-73.1); Platelet Count Result 255 k/mm3 (150-375); Red Blood Count 3.22 M/mm3 (4.2-5.4); Red Cell Distribution Width 19.4 % (11.5-14.5); White Blood Count 15.5 K/mm3 (4.5-10.0)
[2024-07-02] MEDS: LORazepam INJ (*CRX) 2 MG/ML VIAL 1 MG IV PUSH (13:19)
[2024-07-02] MEDS: SODIUM CHLORIDE 0.9% IV 1,000 ML 999 ML IV CONT (13:20)
--- NOTE | 2024-07-02 13:20 | PC.NURSE ---
RN was in pt room and observed pt have seizure like activity, EDP to bedside gave VORB for medication as ordered in JUL. EDP made aware and at pt bedside states additional orders will be placed. Seizure precautions initiated, seizure assessment completed.
[2024-07-02 13:25] LABS: Acetaminophen < 10 ug/mL (10-30); Ammonia < 9 umol/L (9-30); Ethanol < 10 mg/dL (<10); Salicylate < 1.0 mg/dL (2-20)
[2024-07-02 13:30] LABS: INR 1.2; Partial Thromboplastin Time 29.9 Seconds (22.3-36.8); Prothrombin Time 15.5 Seconds (11.1-14.7)
[2024-07-02 13:30] LABS: Lactic Acid Reflex 2.7 mmol/L (0.7-2.0)
[2024-07-02 13:31] LABS: Alanine Aminotransferase 27 U/L (6-35); Albumin Level 3.6 g/dL (3.5-5.1); Alkaline Phosphatase 90 U/L (38-126); Anion Gap 17 mmol/L (4-12); Aspartate Amino Transferase 33 U/L (14-36); Blood Urea Nitrogen 22 mg/dL (7-17); Calcium 8.5 mg/dL (8.4-10.2); Carbon Dioxide 24 mmol/L (22-30); Chloride 102 mmol/L (98-107); Estimated CRCL calculation 36 ml/min; Estimated Glomerular Filt Rate 35; Glucose 115 mg/dL (65-110); Potassium 3.7 mmol/L (3.4-5.0); Sodium 143 mmol/L (137-145)
[2024-07-02] MEDS: levETIRAcetam 1500MG/NACL100ML 1,500 MG/100 ML BAG 400 MG IVPB ×2 (13:40→13:54)
--- NOTE | 2024-07-02 13:54 | ED.AMS ---
HPI - Altered Mental Status General Chief Complaint: Altered Mental Status Stated Complaint: ams Time Seen by Provider: 07/02/24 12:33 Source: EMS Mode of arrival: EMS Limitations: altered mental status History of Present Illness HPI narrative: This is a 6-year-old female, with history of COPD, CKD and hypothyroidism, who is brought in by EMS from her [facility] ([facility]) for altered mental status. The patient was reportedly unresponsive since 11:30 this morning. On arrival EMS reported the patient was alert and oriented to x1 with a baseline orientation x4. The patient states that it hurts all over . She has no other complaints at this time. Related Data Home Medications ?Medication ?Instructions ?Recorded ?Confirmed ?Last Taken ?Type esomeprazole magnesium 40 mg 1 cap PO 2XD 11/23/21 07/02/24 05/08/24 History capsule,delayed release (Nexium) levothyroxine 75 mcg tablet 1 tablet PO DAILY 11/23/21 07/02/24 05/09/24 History (Synthroid) metoprolol tartrate 50 mg tablet 1 tablet PO BID 11/23/21 07/02/24 05/08/24 History (Lopressor) montelukast 10 mg tablet 1 tablet PO HS 11/23/21 07/02/24 05/08/24 History (Singulair) trazodone 100 mg tablet 100 mg PO HS 11/23/21 07/02/24 05/08/24 History bisacodyl 10 mg rectal suppository 10 mg RECTAL DAILY PRN constipation 07/02/24 07/02/24 Unknown History cyanocobalamin (vitamin B-12) 1,000 mcg PO DAILY 07/02/24 07/02/24 Unknown History 1,000 mcg tablet (Vitamin B-12) levofloxacin 750 mg tablet 750 mg PO DAILY 07/02/24 07/02/24 Unknown History magnesium citrate (Citrate of 296 ml PO DAILY PRN constipation 07/02/24 07/02/24 Unknown History Magnesia oral) magnesium hydroxide 400 mg/5 mL 30 ml PO HS PRN constipation 07/02/24 07/02/24 Unknown History oral suspension (Dulcolax (magnesium hydroxide)) metronidazole 500 mg tablet 500 mg PO TID 07/02/24 07/02/24 Unknown History olmesartan 20 mg tablet (Benicar) 40 mg PO DAILY 07/02/24 07/02/24 Unknown History sodium phosphates 19 gram-7 118 ml RECTAL DAILY PRN 07/02/24 07/02/24 Unknown History gram/118 mL enema (Enema) constipation vancomycin 125 mg capsule 125 mg PO QID 07/02/24 07/02/24 Unknown History (Vancocin) Allergies Allergy/AdvReac Type Severity Reaction Status Date / Time No Known Allergies Allergy Mild Verified 07/02/24 21:56 Review of Systems Review of Systems: All systems reviewed & are unremarkable except as noted in HPI and below [facility] Past Medical History Medical History (Updated 07/02/24 @ 18:08 by Suyapa Geronimo PA-C) Chronic obstructive pulmonary disease Chronic kidney disease C. difficile colitis (2021) Megaloblastic anemia Hiatal hernia Anxiety Postmenopausal Hypothyroidism Gout Sleep apnea intolerant of CPAP Diverticulitis Hypertension Surgical History Surgical History (Updated 07/02/24 @ 18:06 by Suyapa Geronimo PA-C) History of partial hysterectomy History of appendectomy incidental appendectomy during open cholecystectomy History of tonsillectomy and adenoidectomy History of cholecystectomy Family History Family History Other Family history of malignant neoplasm Social History Social History (Updated 07/02/24 @ 18:07 by Suyapa Geronimo PA-C) Social History: Surrogate medical decision maker: Jeremiah Tom, arturo ([phone]). Code status: Do not resuscitate. Smoking packs per day: 1 Smoking cigarettes per day: 20.0 Years smoked: 5 Smoking pack-years: 5.00 Smoking status: Never smoker Tobacco type: cigarettes Alcohol intake: never Substance use: never Substance use type: does not use Do You Feel Safe in your Home?: Yes Lack of Transportation: YES Lack of Food: Never True Current Housing: I Have Housing Concerned About Future Housing: No Difficulty Paying Gas/Electric Bills: No Difficulty Paying for Meds: No Currently Unemployed: No Education: High School Diploma/GED Difficulty w/ Childcare or Family Care: No Additional living arrangements comments: since 1987. She had a daughter who of complications of juvenile diabetes at the age of 40. Her son is still living. Ambulates with a walker. 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 Spiritual care concerns: No Exam Narrative: GENERAL: Well-developed, well-nourished, In mild distress HEAD: Normocephalic, atraumatic. EYES: PERRLA and EOMI. ENT: Nares clear, no rhinorrhea or epistaxis. Mucous membranes dry. Oropharynx without tonsillar hypertrophy exudate or other lesions. CHEST: Clear to auscultation. No respiratory distress. No wheezes rales or rhonchi HEART: Regular rate and rhythm. No murmur heard. Normal peripheral pulses. ABDOMEN: Soft, diffusely tender to palpation without rebound or guarding, nondistended, normal active bowel sounds. EXTREMITIES: Normal range of motion. No edema. SKIN: Warm, dry, no rash. NEURO: Alert and oriented x1 (self only). No focal deficit. Moving all 4 limbs spontaneously Course Course Emergency Course: 13:19 - The patient had a witnessed seizure in the emergency department described as tonic clonic for which she was given 1 mg Ativan IV. 16:04 - CBC demonstrates elevated white blood cell count of 15.5 with left shift. Chemistries demonstrate baseline elevation of creatinine at 1.45 with a anion gap elevation of 17 and lactic acid of 2.7. Urinalysis shows changes consistent with urinary tract infection. Urine drug screen positive for opiates though otherwise negative. Salicylates, acetaminophen and alcohol like negative. Influenza, RSV and COVID negative. CT abdomen pelvis demonstrates diverticulitis with a stable collection of air, unchanged compared to CTs done in May of this year. Head CT not concerning for intracranial mass or bleeding. I suspect the patient's seizure may be the cause for her altered mental status and may be secondary to urosepsis. Will treat with cefepime and vanc. I discussed the patient with neurologist, Dr. Stone who agrees to consult. I discussed the patient with hospitalist, MERT Geronimo who accepts admission. Vital Signs Vital signs: Vital Signs Temperature 97.7 F 07/02/24 12:15 Pulse Rate 90 07/02/24 12:15 Respiratory Rate 16 07/02/24 12:15 Blood Pressure 195/130 H 07/02/24 12:15 Pulse Oximetry 95 07/02/24 12:15 Oxygen Delivery Room Air 07/02/24 12:15 Temperature 97.7 F 07/02/24 12:15 Pulse Rate 85 07/02/24 22:00 Respiratory Rate 15 07/02/24 20:57 Blood Pressure 156/76 H 07/02/24 20:57 Pulse Oximetry 96 07/02/24 20:57 Oxygen Delivery Nasal Cannula 07/02/24 13:24 Procedures Other Procedure Procedure 1: Other Procedure: [id number], 14:50 Ultrasound IV placement An 18 gauge IV was placed in the right forearm under dynamic ultrasound guidance without complication. MDM - Altered Mental Status MDM Narrative Medical decision making narrative: plan: Labs, imaging, IV fluids, EKG, reassess Differential Diagnosis Differential diagnosis: Likely other ( drug/alcohol intoxication, intracranial hemorrhage, intracranial mass, pneumonia, urinary tract infection, seizure, metabolic abnormality, COVID, influenza, RSV, other) Lab Data 07/02/24 13:10 07/02/24 13:09 Labs: Lab Results 07/02/24 07/02/24 07/02/24 Range/Units 13:09 13:10 13:53 WBC 15.5 H (4.5-10.0) K/mm3 RBC 3.22 L (4.2-5.4) M/mm3 Hgb 10.2 L (12.0-15.0) g/dL Hct 31.6 L (37.0-47.0) % MCV 98.1 (80-100) fl MCH 31.7 (26-34) pg MCHC 32.3 (32-36) g/dl RDW 19.4 H (11.5-14.5) % Plt Count 255 (150-375) k/mm3 MPV 10.3 (7.4-10.4) fl Immature Gran % (Auto) 0.6 H (0-0.5) % Neut % (Auto) 91.2 H (45.5-73.1) % Lymph % (Auto) 2.8 L (18.3-44.2) % [place] % (Auto) 5.3 (2.6-8.5) % Eos % (Auto) 0.0 (0-4.4) % Baso % (Auto) 0.1 L (0.2-1.2) % Lymph # (Auto) 0.43 L (0.9-3.2) K/mm3 [place] # (Auto) 0.8 H (0.1-0.6) K/mm3 Eos # (Auto) 0.0 (0-0.3) K/mm3 Baso # (Auto) 0.0 (0.0-0.1) K/mm3 Abs Immat Gran (auto) 0.10 H (0.00-0.031) K/mm3 Absolute Neuts (auto) 14.2 H (1.3-6.7) K/mm3 Absolute Nucleated RBC 0.000 (0.0-0.012) K/mm3 Nucleated RBC % 0.0 (0.0-0.2) % PT 15.5 H (11.1-14.7) Seconds INR 1.2 APTT 29.9 (22.3-36.8) Seconds Sodium 143 (137-145) mmol/L Potassium 3.7 (3.4-5.0) mmol/L Chloride 102 (98-107) mmol/L Carbon Dioxide 24 (22-30) mmol/L Anion Gap 17 H (4-12) mmol/L BUN 22 H (7-17) mg/dL Creatinine 1.45 H (0.7-1.0) mg/dL Estim Creat Clear Calc 36 ml/min Estimated GFR 35 L (59 - ) Glucose 115 H (65-110) mg/dL Lactic Acid 2.7 H (0.7-2.0) mmol/L Calcium 8.5 (8.4-10.2) mg/dL Total Bilirubin 1.0 (0.2-1.3) mg/dL AST 33 (14-36) U/L ALT 27 (6-35) U/L Alkaline Phosphatase 90 (38-126) U/L Ammonia < 9 L (9-30) umol/L Total Protein 6.0 L (6.3-8.2) g/dL Albumin 3.6 (3.5-5.1) g/dL Urine Color Dark yellow (Yellow) Urine Appearance Clear (Clear) Urine pH 5.5 (5.0-9.0) Ur Specific [place] 1.021 (1.001-1.035) Urine Protein 1+ H (Negative) mg/dL Urine Glucose (UA) Negative (Negative) mg/dL Urine Ketones 1+ H (Negative) mg/dL Ur Blood (Man) Negative (Negative) Urine Nitrate Positive H (Negative) Urine Bilirubin Negative (Negative) Urine Urobilinogen 0.2 (<2.0) mg/dL Add Ur Microanalysis Reviewed Leukocyte Esterase Rfl Trace H (Negative) ELDA/UL Urine RBC 6-10 H (0-2) /hpf Urine WBC 0-5 (0-3) /hpf Ur Squamous Epith Cells None seen (Few) /hpf Urine Bacteria None seen /hpf Urine Casts 3-5 Salicylates < 1.0 L (2-20) mg/dL Urine Opiates Screen Positive A (Negative) Urine Methadone Screen Negative (Negative) Acetaminophen < 10 L (10-30) ug/mL Ur Barbiturates Screen Negative (Negative) Ur Phencyclidine Scrn Negative (Negative) Ur Amphetamine Screen Negative (Negative) U Benzodiazepines Scrn Negative (Negative) Urine Cocaine Screen Negative (Negative) U Cannabinoids Screen Negative (Negative) Ethyl Alcohol < 10 (<10) mg/dL Influenza A (RT-PCR) Negative (Negative) Influenza B (RT-PCR) Negative (Negative) RSV (RT-PCR) Negative (Negative) SARS-CoV-2 RNA (RT-PCR) Negative (Negative) ECG Data EKG #1: Attestation: I personally reviewed and interpreted this ECG as follows: ECG completion date: 07/02/24 ECG completion time: 12:28 Prior ECG tracings: available for review Interpretation: Course baseline, sinus rhythm, rate 98, left axis deviation, no ST segment elevations or T-wave inversions concerning for ischemia, normal intervals with QTC of 351. Compared to EKG done on June 18, 2024, there are no significant changes. Discharge Plan Discharge Clinical Impression: Acute UTI, Seizure Sepsis Qualifiers: Sepsis type: sepsis due to unspecified organism Sepsis acute organ dysfunction status: with acute organ dysfunction Severe sepsis acute organ dysfunction type: encephalopathy Severe sepsis shock status: without septic shock Qualified Code(s): A41.9 - Sepsis, unspecified organism Patient Disposition: Still a Patient Condition: Serious Time of Disposition: 16:05
[2024-07-02 13:56] LABS: Influenza A QL RT-PCR Negative (Negative); Influenza B QL RT-PCR Negative (Negative); RSV RNA, RT-PCR Negative (Negative); SARS-CoV-2 RNA PCR Negative (Negative)
[2024-07-02 14:13] LABS: Add Urine Microscopic? YES; Appearance Urine Clear (Clear); Bacteria Urine None Seen /hpf; Bilirubin Urine Negative (Negative); Blood Urine Negative (Negative); Color Urine Dark Yellow (Yellow); Glucose Urine UA Negative (Negative); Ketones Urine 1+ mg/dL (Negative); Leukocyte Esterase Ur Trace LEU/UL (Negative); Need Manual Microscopic Reviewed; Nitrate Urine Positive (Negative); Protein Urine 1+ mg/dL (Negative); Specific Grav Ur 1.021 (1.001-1.035); Squamous Epithelial Cell Urine None Seen /hpf (Few); Urobilinogen Urine 0.2 mg/dL (<2.0); WBC Urine 0-5 /hpf (0-3); pH Urine 5.5 (5.0-9.0)
[2024-07-02 14:34] LABS: Barbiturate Screen Urine Negative (Negative)
--- NOTE | 2024-07-02 14:53 | PC.NURSE ---
first set of blood cultures obtained by EDP Dr. oGddard upon the start of ultrasound guided IV insertion.
[2024-07-02 14:58] LABS: Amphetamine Screen Urine Negative (Negative); Cannabinoid Screen Urine Negative (Negative); Methadone Screen Urine Negative (Negative)
[2024-07-02 15:47] LABS: Benzodiazepines Screen Urine Negative (Negative)
[2024-07-02 15:48] LABS: Opiate Screen Urine Positive (Negative)
[2024-07-02] MEDS: CEFEPIME 1 GM/NS 50 ML 1 GM/50 ML BAG IVPB (15:56)
[2024-07-02] MEDS: VANCOMYCIN 2,000 MG/NS 500 ML 2,000 MG/500 ML BAG 250 MG IVPB (15:57)
[2024-07-02 16:06] LABS: Cocaine Screen Urine Negative (Negative); Phencyclidine Screen Urine Negative (Negative)
[2024-07-02 16:14] LABS: Reflex Lactic Acid Yes or No Add Lactic
--- NOTE | 2024-07-02 16:54 | PC.NURSE ---
attempted a venipuncture on pt for repeat lactic acid, unable to obtain. notified James Boothe RN, will attempt to draw. pt required multiple sticks and ultrasound to get IV.
[2024-07-02 17:15] LABS: Lactic Acid 2.3 mmol/L (0.7-2.0)
--- NOTE | 2024-07-02 18:05 | PM.IMHP ---
H&P: HPI History of Present Illness Date/Time: 07/02/24 18:05 Chief Complaint: Altered mental status. Narrative: This is a 73-year-old female with hypertension, chronic obstructive pulmonary disease, obstructive sleep apnea intolerant to CPAP, hypothyroidism, gout, anxiety, and Clostridium difficile diarrhea who presented to the emergency department via EMS from [facility] for evaluation of altered mental status. The patient is unable to provide history at this time due to her clinical condition of the following is obtained via a review of her EMR as well as information provided by her family members. She is known to the hospitalist service from a recent admission (06/18/2024 - 06/28/2024) at which time she presented with weakness and diarrhea. She was found to have diverticulitis with microperforation without abscess, E coli urinary tract infection, and C diff diarrhea. Overall she did well, was working with physical therapy, and was discharged to rehab. It is my understanding that she was in her usual state of health this morning ended about 11:30 she was found unresponsive and was only able to tell staff that she ?hurt all over.? At baseline she is alert and oriented x4 and there were no reports of fever or falls. In the ED she had a witnessed seizure for which she was given lorazepam 2 mg and levetiracetam 3000 mg loading dose. She is being admitted in this setting for close monitoring and further evaluation. She has no history of seizures. Review of Systems Review of Systems: Unable to be obtained accurately given her current clinical condition. [facility] Past Medical History Medical History Chronic obstructive pulmonary disease Chronic kidney disease C. difficile colitis (2021) Megaloblastic anemia Hiatal hernia Anxiety Postmenopausal Hypothyroidism Gout Sleep apnea intolerant of CPAP Diverticulitis Hypertension Surgical History Surgical History History of partial hysterectomy History of appendectomy incidental appendectomy during open cholecystectomy History of tonsillectomy and adenoidectomy History of cholecystectomy Family History Family History Other Family history of malignant neoplasm Social History Social History Social History: Surrogate medical decision maker: Jeremiah Tom, son ([phone]). Code status: Do not resuscitate. Smoking packs per day: 1 Smoking cigarettes per day: 20.0 Years smoked: 5 Smoking pack-years: 5.00 Smoking status: Never smoker Tobacco type: cigarettes Alcohol intake: never Substance use: never Substance use type: does not use Do You Feel Safe in your Home?: Yes Lack of Transportation: YES Lack of Food: Never True Current Housing: I Have Housing Concerned About Future Housing: No Difficulty Paying Gas/Electric Bills: No Difficulty Paying for Meds: No Currently Unemployed: No Education: High School Diploma/GED Difficulty w/ Childcare or Family Care: No Additional living arrangements comments: since 1987. She had a daughter who of complications of juvenile diabetes at the age of 40. Her son is still living. Ambulates with a walker. 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 care concerns: No Meds Home Medications and Allergies Home Medications ?Medication ?Instructions ?Recorded ?Confirmed ?Type esomeprazole magnesium 40 mg 1 cap PO 2XD 11/23/21 07/02/24 History capsule,delayed release (Nexium) levothyroxine 75 mcg tablet 1 tablet PO DAILY 11/23/21 07/02/24 History (Synthroid) metoprolol tartrate 50 mg tablet 1 tablet PO BID 11/23/21 07/02/24 History (Lopressor) montelukast 10 mg tablet 1 tablet PO HS 11/23/21 07/02/24 History (Singulair) trazodone 100 mg tablet 100 mg PO HS 11/23/21 07/02/24 History meclizine 12.5 mg tablet 12.5 mg PO TID PRN dizziness #60 05/18/24 07/02/24 Rx tabs potassium chloride 10 mEq 1 tablet PO DAILY #30 tabs 05/18/24 07/02/24 Rx tablet,extended release (Klor-Con) alprazolam 1 mg tablet 1 mg PO QID PRN anxiety #5 tabs 06/28/24 07/02/24 Rx fidaxomicin 200 mg tablet (Dificid) 200 mg PO Q12HR #27 tabs 06/28/24 07/02/24 Rx folic acid 1 mg tablet 1 mg PO DAILY #30 tabs 06/28/24 07/02/24 Rx tramadol 50 mg tablet 50 mg PO DAILY PRN pain #5 tabs 06/28/24 07/02/24 Rx tramadol 50 mg tablet 100 mg (2 x 50 mg) PO HS PRN pain 06/28/24 07/02/24 Rx #5 tabs bisacodyl 10 mg rectal suppository 10 mg RECTAL DAILY PRN constipation 07/02/24 07/02/24 History cyanocobalamin (vitamin B-12) 1,000 mcg PO DAILY 07/02/24 07/02/24 History 1,000 mcg tablet (Vitamin B-12) levofloxacin 750 mg tablet 750 mg PO DAILY 07/02/24 07/02/24 History magnesium citrate (Citrate of 296 ml PO DAILY PRN constipation 07/02/24 07/02/24 History Magnesia oral) magnesium hydroxide 400 mg/5 mL 30 ml PO HS PRN constipation 07/02/24 07/02/24 History oral suspension (Dulcolax (magnesium hydroxide)) metronidazole 500 mg tablet 500 mg PO TID 07/02/24 07/02/24 History olmesartan 20 mg tablet (Benicar) 40 mg PO DAILY 07/02/24 07/02/24 History sodium phosphates 19 gram-7 118 ml RECTAL DAILY PRN 07/02/24 07/02/24 History gram/118 mL enema (Enema) constipation vancomycin 125 mg capsule 125 mg PO QID 07/02/24 07/02/24 History (Vancocin) Allergies Allergy/AdvReac Type Severity Reaction Status Date / Time No Known Allergies Allergy Mild Verified 07/02/24 21:56 Vital Signs Vital Signs - 24 hr 07/02/24 12:15 07/02/24 13:24 07/02/24 14:00 Temperature 97.7 F Pulse Rate 90 101 H Respiratory Rate 16 16 Blood Pressure 195/130 H 165/93 H Pulse Oximetry 95 100 100 Oxygen Delivery Room Air Nasal Cannula 07/02/24 14:58 Temperature Pulse Rate 107 H Respiratory Rate 20 Blood Pressure 172/86 H Pulse Oximetry 100 Oxygen Delivery Exam Narrative: General: Ill-appearing female in the semi-López position in bed. Weight: 99 kg. BMI: 36.3. HEENT: Normocephalic, atraumatic. Wearing corrective lenses. PERRL, EOMI. Sclera anicteric. Conjunctiva mildly injected. Tacky mucous membranes. Dry blood on the lips, she did not open her mouth very far for complete oral examination. Neck: Supple. No midline vertebral tenderness. Exam limited due to neck circumference. Respiratory: Respirations are nonlabored. She appears in no respiratory distress. Lung sounds are diminished due to poor effort. Cardiovascular: Regular rate and rhythm with S1-S2. Gastrointestinal: Abdomen is soft, obese, nontender, and nondistended with positive bowel sounds. No guarding or rebound tenderness. Skin: Warm and dry. Scattered bruising on the upper extremities. Extremities: No cyanosis, clubbing, or significant edema. Radial and pedal pulses intact. Neurological: Somnolent but she will arouse to voice. She opens her eyes and will squeeze my fingers and wiggle her toes. She does not answer questions or follow any other commands. Cranial nerves 2-12 are grossly intact. No obvious facial asymmetry. Sensations this seems to be intact in all extremities as she does withdrawal to pain. Psychiatric: Unable to assess accurately as she is postictal. H&P: Results Labs Labs: Short CBC 07/02/24 Range/Units 13:10 WBC 15.5 H (4.5-10.0) K/mm3 Hgb 10.2 L (12.0-15.0) g/dL Hct 31.6 L (37.0-47.0) % Plt Count 255 (150-375) k/mm3 BMP 07/02/24 13:09 Sodium 143 Potassium 3.7 Chloride 102 Carbon Dioxide 24 BUN 22 H Creatinine 1.45 H Glucose 115 H Calcium 8.5 Liver Function 07/02/24 Range/Units 13:09 Total Bilirubin 1.0 (0.2-1.3) mg/dL AST 33 (14-36) U/L ALT 27 (6-35) U/L Alkaline Phosphatase 90 (38-126) U/L Albumin 3.6 (3.5-5.1) g/dL Urine 07/02/24 Range/Units 13:53 Urine Color Dark yellow (Yellow) Urine Appearance Clear (Clear) Urine pH 5.5 (5.0-9.0) Ur Specific [place] 1.021 (1.001-1.035) Urine Protein 1+ H (Negative) mg/dL Urine Glucose (UA) Negative (Negative) mg/dL Imaging Chest X-Ray 07/02/24 13:16 IMPRESSION: 1. Small pleural effusions. 2. Airspace opacities at the lung bases, consistent with atelectasis or less likely pneumonia. Head CT 07/02/24 14:34 IMPRESSION: 1. Normal aging brain. Abdomen/Pelvis CT 07/02/24 14:36 IMPRESSION: 1. Persistent small collection of extra luminal gas in the left lower quadrant anterior abdominal wall immediately adjacent to a region of inflammatory stranding surrounding the descending colon consistent with diverticulitis. No abscess or more remote free intraperineal gas or fluid. 2. Persistent moderate-sized bilateral posterior layering pleural effusions with dependent compressive atelectasis in the visualized lower lobes. Assessment and Plan Assessment and plan (1) Seizure: Code(s): R56.9 - Unspecified convulsions Status: Acute (2) Post-ictal confusion: Code(s): F05 - Delirium due to known physiological condition Status: Acute (3) Diverticulitis of intestine with perforation without abscess: Qualifiers: Diverticulitis bleeding: without bleeding Diverticulitis site: large intestine Qualified Code(s): K57.20 - Diverticulitis of large intestine with perforation and abscess without bleeding Code(s): K57.80 - Diverticulitis of intestine, part unspecified, with perforation and abscess without bleeding Status: Acute (4) Hypothyroidism: Qualifiers: Hypothyroidism type: unspecified Qualified Code(s): E03.9 - Hypothyroidism, unspecified Code(s): E03.9 - Hypothyroidism, unspecified Status: Acute (5) Hypertension: Qualifiers: Hypertension type: primary hypertension Qualified Code(s): I10 - Essential (primary) hypertension Code(s): I10 - Essential (primary) hypertension Status: Chronic (6) C. difficile diarrhea: Code(s): A04.72 - Enterocolitis due to Clostridium difficile, not specified as recurrent Status: Acute Plan The patient presented to the emergency department for evaluation after she was found unresponsive at 11:30 this morning at her rehab facility as detailed in HPI. She had apparently been in her usual state of health earlier on in the morning. In the emergency department she had a witnessed seizure and it is probable that she had a seizure earlier today and that she was found in a postictal state. Brain CT did not show any acute findings and family members deny history of seizure. She was loaded with levetiracetam 3 g and brain MRI and EEG have been ordered. Neurology consulted for further management and recommendations regarding drug therapy. Initiate seizure precautions. Continue levofloxacin (due for 1 more dose on 07/04/2024) and metronidazole (continue through 07/05/2024) for recent diverticulitis with abscess without perforation as well as fidaxomicin for C difficile diarrhea (treat through 07/11/2024). Vital signs were reviewed and they are stable. Her home medications will be reviewed and resumed as appropriate. The patient's medical management will be taken over by the hospitalist team in a.m. Quality VTE Prophylaxis VTE prophylaxis: mechanical ordered The patient has been admitted under observation status. Hospitalist MIPS Advance Care Plan I have confirmed that the patient's Advanced Care Plan is present, code status is documented, or surrogate decision maker is listed in patient medical record.: Yes Medication Reconciliation I have utilized all available resources to obtain, update and review the patients current medications (includes all prescriptions, OTC, herbals, cannabis, and nutritional supplements).: Yes
--- NOTE | 2024-07-02 21:44 | ADMGEN ---
This patient, Melissa Tom, was admitted to IMU Room 211-01 at 2105. Patient/family oriented to hospital policies and general routines including ID bracelet, bed and alarms, visiting hours, pain management, procedures, bathroom and other care routines, personal items, smoking policy, room service/diet, and visiting hours. Information on how to activate the Rapid Response Team has been discussed. Patient/Family are encouraged to report perceived risks to care and to ask questions if they do not understand what they are told or what they should do.
[2024-07-03] VITALS (19 sets, daily range): BP systolic 140–183; BP diastolic 56–82; PULSE 71–124; RESP 20–22; TEMP 36.1–37.4; O2SAT 96–100; BMI 36.3
[2024-07-03 04:56] LABS: Anion Gap 15 mmol/L (4-12); Blood Urea Nitrogen 20 mg/dL (7-17); Calcium 8.2 mg/dL (8.4-10.2); Carbon Dioxide 21 mmol/L (22-30); Chloride 106 mmol/L (98-107); Estimated CRCL calculation 42 ml/min; Estimated Glomerular Filt Rate 43; Glucose 75 mg/dL (65-110); Potassium 3.5 mmol/L (3.4-5.0); Sodium 142 mmol/L (137-145)
[2024-07-03 05:20] LABS: Basophils Percent Auto 0.2 % (0.2-1.2); Eosinophils Percent Auto 0.2 % (0-4.4); Hematocrit 29.1 % (37.0-47.0); Hemoglobin 9.2 g/dL (12.0-15.0); Immature Granulocyte Absolute 0.08 K/mm3 (0.00-0.031); Immature Granulocyte Percent A 0.6 % (0-0.5); Lymphocytes Absolute Auto 1.46 K/mm3 (0.9-3.2); Lymphocytes Percent Auto 11.1 % (18.3-44.2); Mean Corpuscular HGB Conc 31.6 g/dl (32-36); Mean Corpuscular Hemoglobin 31.2 pg (26-34); Mean Corpuscular Volume 98.6 fl (80-100); Mean Platelet Volume 10.3 fl (7.4-10.4); Monocytes Absolute Auto 1.3 K/mm3 (0.1-0.6); Monocytes Percent Auto 9.7 % (2.6-8.5); Neutrophils Absolute Auto 10.3 K/mm3 (1.3-6.7); Neutrophils Percent Auto 78.2 % (45.5-73.1); Platelet Count Result 230 k/mm3 (150-375); Red Blood Count 2.95 M/mm3 (4.2-5.4); Red Cell Distribution Width 19.8 % (11.5-14.5); White Blood Count 13.1 K/mm3 (4.5-10.0)
[2024-07-03] MEDS: LEVOTHYROXINE SODIUM 75 MCG TABLET PO (05:27)
--- NOTE | 2024-07-03 05:37 | PC.NURSE ---
This RN called son two times for over the phone consent for an MRI and inform him of the EEG. No answer, message left on voicemail.
[2024-07-03] MEDS: OLMESARTAN MEDOXOMIL 20 MG TABLET 40 MG PO (10:41)
[2024-07-03] MEDS: METOPROLOL TARTRATE 50 MG TAB PO ×2 (10:42→21:05)
[2024-07-03] MEDS: FIDAXOMICIN 200 MG TABLET PO ×2 (10:42→21:05)
[2024-07-03] MEDS: FOLIC ACID 1 MG TABLET PO (10:42)
[2024-07-03] MEDS: POTASSIUM CHLORIDE 10 MEQ ER TABLET PO (10:43)
[2024-07-03] MEDS: metroNIDAZOLE 500 MG TABLET BY MOUTH ×3 (10:49→18:24)
--- NOTE | 2024-07-03 12:14 | PM.IMPN ---
Progress Note: A&P Assessment and Plan (1) Seizure: Code(s): R56.9 - Unspecified convulsions Status: Acute Assessment and Plan: 07/03/24: New onset Continue workup as ordered with neuro checks, EEG, MRI, and neurology consult. Telemetry Start Keppra 500 mg BID. Consider up titration as needed. Seizure precautions. Benzodiazepine prn for any seizure activity. CT head negative. (2) Post-ictal confusion: Code(s): F05 - Delirium due to known physiological condition Status: Resolved Assessment and Plan: 07/03/24: At baseline and A&Ox3. Seizure precautions. (3) Diverticulitis of intestine with perforation without abscess: Qualifiers: Diverticulitis site: large intestine Diverticulitis bleeding: without bleeding Qualified Code(s): K57.20 - Diverticulitis of large intestine with perforation and abscess without bleeding Code(s): K57.80 - Diverticulitis of intestine, part unspecified, with perforation and abscess without bleeding Status: Acute Assessment and Plan: 07/03/24: Continue Levaquin, Fidaxomycin and Flagyl Monitor daily labs and VS and trends (4) Hypothyroidism: Qualifiers: Hypothyroidism type: unspecified Qualified Code(s): E03.9 - Hypothyroidism, unspecified Code(s): E03.9 - Hypothyroidism, unspecified Status: Chronic Assessment and Plan: 07/03/24: Continue home medications of Levothyroxine. (5) Hypertension: Qualifiers: Hypertension type: primary hypertension Qualified Code(s): I10 - Essential (primary) hypertension Code(s): I10 - Essential (primary) hypertension Status: Chronic Assessment and Plan: 07/03/24: Stable. Continue metoprolol, Benicar and monitor. (6) C. difficile diarrhea: Code(s): A04.72 - Enterocolitis due to Clostridium difficile, not specified as recurrent Status: Acute Assessment and Plan: 07/03/24: Pre-existing prior to coming into hospital. Continue Fidaxomycin. Plan Continue levofloxacin (due for 1 more dose on 07/04/2024) and metronidazole (continue through 07/05/2024) for recent diverticulitis with abscess without perforation as well as fidaxomicin for C difficile diarrhea (treat through 07/11/2024). Time Spent With Patient Time with patient: 15 - 25 minutes Subjective Date/time seen: 07/03/24 1130 Interval history: Pt was examined at bedside. Lying supine, and in no acute distress. She is noted to be very edematous. I was called by RN this AM and she had not urinated for quite some time. Bladder scan showed >400 ml, so a fitzpatrick was placed. The pt then drained approximately 500 ml. Fitzpatrick left in place for now. Pt without any complaints of pain, dyspnea, and she seems otherwise OK. No prior hx of seizures/CVA/other neurological events. Review of Systems Review of Systems: All systems reviewed & are unremarkable except as noted in HPI and below Exam Narrative: General: Ill-appearing female lying supine at this time in bed. HEENT: Normocephalic, atraumatic. Wearing corrective lenses. PERRL, EOMI. Sclera anicteric. Neck: Supple. No midline vertebral tenderness. Respiratory: Respirations are nonlabored. She appears in no respiratory distress. Lung sounds are diminished due to poor effort. Cardiovascular: Regular rate and rhythm with S1-S2. BLE with 2+ Pitting edema. Gastrointestinal: Abdomen is soft, obese, nontender, and nondistended with positive bowel sounds. No guarding or rebound tenderness. Skin: Warm and dry. Scattered bruising on the upper extremities. Extremities: No cyanosis, clubbing. Radial and pedal pulses intact. 2+ BLE pitting edema present. Neurological: A&Ox3. She has no focal deficits. Psychiatric: Appropriate with normal affect. Objective Data Vital Signs Vital Signs: Vital Signs - 24 hr 07/02/24 12:15 07/02/24 13:24 07/02/24 14:00 Temperature 97.7 F Pulse Rate 90 101 H Respiratory Rate 16 16 Blood Pressure 195/130 H 165/93 H Pulse Oximetry 95 100 100 Oxygen Delivery Room Air Nasal Cannula Oxygen Flow Rate 07/02/24 14:58 07/02/24 20:57 07/02/24 21:05 Temperature 97.6 F Pulse Rate 107 H 85 91 Respiratory Rate 20 15 20 Blood Pressure 172/86 H 156/76 H 146/51 H Pulse Oximetry 100 96 98 Oxygen Delivery Oxygen Flow Rate 07/02/24 21:34 07/02/24 22:00 07/03/24 00:00 Temperature Pulse Rate 85 Respiratory Rate Blood Pressure Pulse Oximetry 96 97 Oxygen Delivery Nasal Cannula Nasal Cannula Oxygen Flow Rate 2 2 07/03/24 00:00 07/03/24 00:07 07/03/24 02:00 Temperature 97.6 F Pulse Rate 81 85 84 Respiratory Rate 20 Blood Pressure 146/56 H Pulse Oximetry 96 Oxygen Delivery Oxygen Flow Rate 07/03/24 03:55 07/03/24 04:00 07/03/24 04:00 Temperature 97.7 F Pulse Rate 105 H 111 H Respiratory Rate 20 Blood Pressure 140/82 Pulse Oximetry 97 96 Oxygen Delivery Nasal Cannula Oxygen Flow Rate 2 07/03/24 06:00 07/03/24 07:53 07/03/24 10:42 Temperature 99.3 F Pulse Rate 104 H 110 H 92 Respiratory Rate 22 H Blood Pressure 150/81 H Pulse Oximetry 96 Oxygen Delivery Oxygen Flow Rate 07/03/24 12:00 Temperature 97.0 F L Pulse Rate 79 Respiratory Rate 20 Blood Pressure 149/69 H Pulse Oximetry 100 Oxygen Delivery Oxygen Flow Rate Intake/Output Intake/Output: Intake & Output 06/30/24 07/01/24 07/02/24 07/03/24 23:59 23:59 23:59 23:59 Intake Total 1750 Output Total 300 550 Balance 1450 -550 Meds/Results Medications: Active Medications Generic Name Dose Route Start Last Admin Trade Name Freq PRN Reason Stop Dose Admin Acetaminophen 650 mg 07/02/24 16:08 Acetaminophen 650 Mg Suppository RECTAL Q6H PRN Mild Pain (1-3) or Fever Alprazolam 1 mg 07/03/24 00:03 Alprazolam (*Crx) 0.5 Mg Tablet PO QID PRN anxiety Fidaxomicin 200 mg 07/03/24 09:00 07/03/24 10:42 Fidaxomicin 200 Mg Tablet PO 200 mg Q12HR SOLITARIO Administration Folic Acid 1 mg 07/03/24 09:00 07/03/24 10:42 Folic Acid 1 Mg Tablet PO 1 mg DAILY SOLITARIO Administration Furosemide 40 mg 07/03/24 17:00 Furosemide Inj 40 Mg/4 Ml Vial IV PUSH BID SOLITARIO Levofloxacin 750 mg 07/04/24 09:00 Levofloxacin 750 Mg Tablet PO 07/04/24 09:01 DAILY SOLITARIO Levothyroxine Sodium 75 mcg 07/03/24 06:30 07/03/24 05:27 Levothyroxine Sodium 75 Mcg Tablet PO 75 mcg DAILY@0630 COUNT INCLUDES THE [facility] Administration Lorazepam 1 mg 07/02/24 23:55 Lorazepam Inj (*Crx) 2 Mg/Ml Vial IV PUSH Q2H PRN Seizures Metoprolol Tartrate 50 mg 07/03/24 09:00 07/03/24 10:42 Metoprolol Tartrate 50 Mg Tab PO 50 mg Q12HR SOLITARIO Administration Metronidazole 500 mg 07/03/24 09:00 07/03/24 10:49 Metronidazole 500 Mg Tablet BY MOUTH 07/05/24 23:59 500 mg TID SOLITARIO Administration Montelukast Sodium 10 mg 07/03/24 00:15 07/03/24 02:39 Montelukast Sodium 10 Mg Tablet PO Not Given HS COUNT INCLUDES THE [facility] Olmesartan 40 mg 07/03/24 09:00 07/03/24 10:41 Olmesartan Medoxomil 20 Mg Tablet PO 40 mg DAILY SOLITARIO Administration Potassium Chloride 10 meq 07/03/24 08:00 07/03/24 10:43 Potassium Chloride 10 Meq Er Tablet PO 10 meq DAILY@0800 SOLITARIO Administration Radiology Results: ITS Impressions Chest X-Ray 07/02/24 13:16 IMPRESSION: 1. Small pleural effusions. 2. Airspace opacities at the lung bases, consistent with atelectasis or less likely pneumonia. Head CT 07/02/24 14:34 IMPRESSION: 1. Normal aging brain. Abdomen/Pelvis CT 07/02/24 14:36 IMPRESSION: 1. Persistent small collection of extra luminal gas in the left lower quadrant anterior abdominal wall immediately adjacent to a region of inflammatory stranding surrounding the descending colon consistent with diverticulitis. No abscess or more remote free intraperineal gas or fluid. 2. Persistent moderate-sized bilateral posterior layering pleural effusions with dependent compressive atelectasis in the visualized lower lobes. Labs Labs: Laboratory Results - last 24 hr 07/02/24 07/02/24 07/02/24 13:09 13:10 13:53 WBC 15.5 H RBC 3.22 L Hgb 10.2 L Hct 31.6 L MCV 98.1 MCH 31.7 MCHC 32.3 RDW 19.4 H Plt Count 255 MPV 10.3 Immature Gran % (Auto) 0.6 H Neut % (Auto) 91.2 H Lymph % (Auto) 2.8 L [place] % (Auto) 5.3 Eos % (Auto) 0.0 Baso % (Auto) 0.1 L Lymph # (Auto) 0.43 L [place] # (Auto) 0.8 H Eos # (Auto) 0.0 Baso # (Auto) 0.0 Abs Immat Gran (auto) 0.10 H Absolute Neuts (auto) 14.2 H Absolute Nucleated RBC 0.000 Nucleated RBC % 0.0 PT 15.5 H INR 1.2 APTT 29.9 Sodium 143 Potassium 3.7 Chloride 102 Carbon Dioxide 24 Anion Gap 17 H BUN 22 H Creatinine 1.45 H Estim Creat Clear Calc 36 Estimated GFR 35 L Glucose 115 H Lactic Acid 2.7 H Calcium 8.5 Total Bilirubin 1.0 AST 33 ALT 27 Alkaline Phosphatase 90 Ammonia < 9 L Total Protein 6.0 L Albumin 3.6 Urine Color Dark yellow Urine Appearance Clear Urine pH 5.5 Ur Specific [place] 1.021 Urine Protein 1+ H Urine Glucose (UA) Negative Urine Ketones 1+ H Ur Blood (Man) Negative Urine Nitrate Positive H Urine Bilirubin Negative Urine Urobilinogen 0.2 Add Ur Microanalysis Reviewed Leukocyte Esterase Rfl Trace H Urine RBC 6-10 H Urine WBC 0-5 Ur Squamous Epith Cells None seen Urine Bacteria None seen Urine Casts 3-5 Salicylates < 1.0 L Urine Opiates Screen Positive A Urine Methadone Screen Negative Acetaminophen < 10 L Ur Barbiturates Screen Negative Ur Phencyclidine Scrn Negative Ur Amphetamine Screen Negative U Benzodiazepines Scrn Negative Urine Cocaine Screen Negative U Cannabinoids Screen Negative Ethyl Alcohol < 10 Influenza A (RT-PCR) Negative Influenza B (RT-PCR) Negative RSV (RT-PCR) Negative SARS-CoV-2 RNA (RT-PCR) Negative 07/02/24 07/03/24 07/03/24 16:58 04:40 05:04 WBC 13.1 H RBC 2.95 L Hgb 9.2 L Hct 29.1 L MCV 98.6 MCH 31.2 MCHC 31.6 L RDW 19.8 H Plt Count 230 MPV 10.3 Immature Gran % (Auto) 0.6 H Neut % (Auto) 78.2 H Lymph % (Auto) 11.1 L [place] % (Auto) 9.7 H Eos % (Auto) 0.2 Baso % (Auto) 0.2 Lymph # (Auto) 1.46 [place] # (Auto) 1.3 H Eos # (Auto) 0.0 Baso # (Auto) 0.0 Abs Immat Gran (auto) 0.08 H Absolute Neuts (auto) 10.3 H Absolute Nucleated RBC 0.000 Nucleated RBC % 0.0 PT INR APTT Sodium 142 Potassium 3.5 Chloride 106 Carbon Dioxide 21 L Anion Gap 15 H BUN 20 H Creatinine 1.23 H Estim Creat Clear Calc 42 Estimated GFR 43 L Glucose 75 Lactic Acid 2.3 H Calcium 8.2 L Total Bilirubin AST ALT Alkaline Phosphatase Ammonia Total Protein Albumin Urine Color Urine Appearance Urine pH Ur Specific [place] Urine Protein Urine Glucose (UA) Urine Ketones Ur Blood (Man) Urine Nitrate Urine Bilirubin Urine Urobilinogen Add Ur Microanalysis Leukocyte Esterase Rfl Urine RBC Urine WBC Ur Squamous Epith Cells Urine Bacteria Urine Casts Salicylates Urine Opiates Screen Urine Methadone Screen Acetaminophen Ur Barbiturates Screen Ur Phencyclidine Scrn Ur Amphetamine Screen U Benzodiazepines Scrn Urine Cocaine Screen U Cannabinoids Screen Ethyl Alcohol Influenza A (RT-PCR) Influenza B (RT-PCR) RSV (RT-PCR) SARS-CoV-2 RNA (RT-PCR) Quality VTE Prophylaxis VTE prophylaxis: mechanical ordered
--- NOTE | 2024-07-03 12:25 | WPDNEURCNPN ---
Assessment and Plan Assessment and plan (1) Seizure: Code(s): R56.9 - Unspecified convulsions Status: Acute Plan 1. Unresponsive episode 2. Grossly nonfocal exam 3. Negative CT scan of the head for the bleed or hydrocephalus that is ventriculomegaly 4. seizure witnessed in the emergency room as well and patient has already been loaded with the Keppra maintenance dosage can be continued an MRI can be obtained to rule out the possibility of space-occupying lesion. Consult date: 07/03/24 HPI: Melissa Tom is a 73 year old female Has been admitted to the hospital through the emergency room on transfer from the halfway for the chief complaints of change in the mental status and with the explanation that she has been unresponsive since 04/27 morning though when she arrived to the ER she was awake alert but oriented x1 and was complaining of pain all over. She has been taking multiple medications as outlined particularly trazodone 100mg at night, she is not allergic to any medication, she carries the ongoing diagnosis of 1. Chronic obstructive pulmonary disease 2. Chronic renal disease 3. Sleep apnea with intolerance to CPAP smoking pack years 5 and no alcohol intake on initial exam in the emergency room she was oriented x1 but otherwise exam was nonfocal, her blood pressure was 195/130 when she came in, CBC was mildly abnormal, BMP was also with BUN of 22 creatinine of 1.45 ammonia level less than 9 lactic acid 2.7 and urine positive for nitrite in addition positive for the opiates and she was negative for all the routine viral infections EKG was without any atrial fibrillation. X-ray chest was abnormal PMFSH Past Medical History Medical History Chronic obstructive pulmonary disease Chronic kidney disease C. difficile colitis (2021) Megaloblastic anemia Hiatal hernia Anxiety Postmenopausal Hypothyroidism Gout Sleep apnea intolerant of CPAP Diverticulitis Hypertension Surgical History Surgical History History of partial hysterectomy History of appendectomy incidental appendectomy during open cholecystectomy History of tonsillectomy and adenoidectomy History of cholecystectomy Family History Family History Other Family history of malignant neoplasm Social History Social History Social History: Surrogate medical decision maker: Jeremiah Tom, son ([phone]). Code status: Do not resuscitate. Smoking packs per day: 1 Smoking cigarettes per day: 20.0 Years smoked: 5 Smoking pack-years: 5.00 Smoking status: Never smoker Tobacco type: cigarettes Alcohol intake: never Substance use: never Substance use type: does not use Do You Feel Safe in your Home?: Yes Lack of Transportation: YES Lack of Food: Never True Current Housing: I Have Housing Concerned About Future Housing: No Difficulty Paying Gas/Electric Bills: No Difficulty Paying for Meds: No Currently Unemployed: No Education: High School Diploma/GED Difficulty w/ Childcare or Family Care: No Additional living arrangements comments: since 1987. She had a daughter who of complications of juvenile diabetes at the age of 40. Her son is still living. Ambulates with a walker. 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 Spiritual care concerns: No Meds Home Medications and Allergies Home Medications ?Medication ?Instructions ?Recorded ?Confirmed ?Type esomeprazole magnesium 40 mg 1 cap PO 2XD 11/23/21 07/02/24 History capsule,delayed release (Nexium) levothyroxine 75 mcg tablet 1 tablet PO DAILY 11/23/21 07/02/24 History (Synthroid) metoprolol tartrate 50 mg tablet 1 tablet PO BID 11/23/21 07/02/24 History (Lopressor) montelukast 10 mg tablet 1 tablet PO HS 11/23/21 07/02/24 History (Singulair) trazodone 100 mg tablet 100 mg PO HS 11/23/21 07/02/24 History meclizine 12.5 mg tablet 12.5 mg PO TID PRN dizziness #60 05/18/24 07/02/24 Rx tabs potassium chloride 10 mEq 1 tablet PO DAILY #30 tabs 05/18/24 07/02/24 Rx tablet,extended release (Klor-Con) alprazolam 1 mg tablet 1 mg PO QID PRN anxiety #5 tabs 06/28/24 07/02/24 Rx fidaxomicin 200 mg tablet (Dificid) 200 mg PO Q12HR #27 tabs 06/28/24 07/02/24 Rx folic acid 1 mg tablet 1 mg PO DAILY #30 tabs 06/28/24 07/02/24 Rx tramadol 50 mg tablet 50 mg PO DAILY PRN pain #5 tabs 06/28/24 07/02/24 Rx tramadol 50 mg tablet 100 mg (2 x 50 mg) PO HS PRN pain 06/28/24 07/02/24 Rx #5 tabs bisacodyl 10 mg rectal suppository 10 mg RECTAL DAILY PRN constipation 07/02/24 07/02/24 History cyanocobalamin (vitamin B-12) 1,000 mcg PO DAILY 07/02/24 07/02/24 History 1,000 mcg tablet (Vitamin B-12) levofloxacin 750 mg tablet 750 mg PO DAILY 07/02/24 07/02/24 History magnesium citrate (Citrate of 296 ml PO DAILY PRN constipation 07/02/24 07/02/24 History Magnesia oral) magnesium hydroxide 400 mg/5 mL 30 ml PO HS PRN constipation 07/02/24 07/02/24 History oral suspension (Dulcolax (magnesium hydroxide)) metronidazole 500 mg tablet 500 mg PO TID 07/02/24 07/02/24 History olmesartan 20 mg tablet (Benicar) 40 mg PO DAILY 07/02/24 07/02/24 History sodium phosphates 19 gram-7 118 ml RECTAL DAILY PRN 07/02/24 07/02/24 History gram/118 mL enema (Enema) constipation vancomycin 125 mg capsule 125 mg PO QID 07/02/24 07/02/24 History (Vancocin) Allergies Allergy/AdvReac Type Severity Reaction Status Date / Time No Known Allergies Allergy Mild Verified 07/02/24 21:56 Vital Signs Vital Signs - 24 hr 07/02/24 13:24 07/02/24 14:00 07/02/24 14:58 Temperature Pulse Rate 101 H 107 H Respiratory Rate 16 20 Blood Pressure 165/93 H 172/86 H Pulse Oximetry 100 100 100 Oxygen Delivery Nasal Cannula Oxygen Flow Rate 07/02/24 20:57 07/02/24 21:05 07/02/24 21:34 Temperature 36.4 C Pulse Rate 85 91 Respiratory Rate 15 20 Blood Pressure 156/76 H 146/51 H Pulse Oximetry 96 98 96 Oxygen Delivery Nasal Cannula Oxygen Flow Rate 2 07/02/24 22:00 07/03/24 00:00 07/03/24 00:00 Temperature Pulse Rate 85 81 Respiratory Rate Blood Pressure Pulse Oximetry 97 Oxygen Delivery Nasal Cannula Oxygen Flow Rate 2 07/03/24 00:07 07/03/24 02:00 07/03/24 03:55 Temperature 36.4 C 36.5 C Pulse Rate 85 84 105 H Respiratory Rate 20 20 Blood Pressure 146/56 H 140/82 Pulse Oximetry 96 97 Oxygen Delivery Oxygen Flow Rate 07/03/24 04:00 07/03/24 04:00 07/03/24 06:00 Temperature Pulse Rate 111 H 104 H Respiratory Rate Blood Pressure Pulse Oximetry 96 Oxygen Delivery Nasal Cannula Oxygen Flow Rate 2 07/03/24 07:53 07/03/24 10:42 07/03/24 12:00 Temperature 37.4 C 36.1 C L Pulse Rate 110 H 92 79 Respiratory Rate 22 H 20 Blood Pressure 150/81 H 149/69 H Pulse Oximetry 96 100 Oxygen Delivery Oxygen Flow Rate Exam Narrative: exam today revealed her to be awake alert cooperative lying flat in the bed with no spontaneous movements but responding to the verbal command by shaking her head, head was normocephalic with no bruit, neck was supple with no meningeal signs, no cervical bruit, heart was regular, lungs with decreased breath sounds, abdomen soft nontender, neurologically she was easily arousable and did follow the instruction when he spoke though speech was of low volume pupils were round regular feels the vision were full to the threat stimuli extraocular movements are full with no nystagmus facial sensation was intact face was symmetric tongue was in the midline with no fasciculation motor examination revealed her to have generally decreased strength but no focal abnormalities with edema of the both lower extremities and downgoing plantar responses. Results Labs 07/03/24 05:04 07/03/24 04:40 Labs: Short CBC 07/02/24 07/03/24 Range/Units 13:10 05:04 WBC 15.5 H 13.1 H (4.5-10.0) K/mm3 Hgb 10.2 L 9.2 L (12.0-15.0) g/dL Hct 31.6 L 29.1 L (37.0-47.0) % Plt Count 255 230 (150-375) k/mm3 BMP 07/02/24 07/03/24 13:09 04:40 Sodium 143 142 Potassium 3.7 3.5 Chloride 102 106 Carbon Dioxide 24 21 L BUN 22 H 20 H Creatinine 1.45 H 1.23 H Glucose 115 H 75 Calcium 8.5 8.2 L Liver Function 07/02/24 Range/Units 13:09 Total Bilirubin 1.0 (0.2-1.3) mg/dL AST 33 (14-36) U/L ALT 27 (6-35) U/L Alkaline Phosphatase 90 (38-126) U/L Albumin 3.6 (3.5-5.1) g/dL Urine 07/02/24 Range/Units 13:53 Urine Color Dark yellow (Yellow) Urine Appearance Clear (Clear) Urine pH 5.5 (5.0-9.0) Ur Specific [place] 1.021 (1.001-1.035) Urine Protein 1+ H (Negative) mg/dL Urine Glucose (UA) Negative (Negative) mg/dL
[2024-07-03] MEDS: levETIRAcetam 500 MG TABLET PO ×2 (12:58→21:05)
[2024-07-03] MEDS: FUROSEMIDE INJ 40 MG/4 ML VIAL IV PUSH (18:24)
[2024-07-03] MEDS: MONTELUKAST SODIUM 10 MG TABLET PO (21:05)
[2024-07-04] VITALS (20 sets, daily range): BP systolic 123–154; BP diastolic 53–82; PULSE 64–96; RESP 18–20; TEMP 36.4–37; O2SAT 96–99
[2024-07-04] MEDS: ALPRAZolam (*CRX) 0.5 MG TABLET 1 MG PO (01:22)
[2024-07-04 05:37] LABS: Basophils Percent Auto 0.2 % (0.2-1.2); Eosinophils Percent Auto 0.2 % (0-4.4); Hematocrit 28.4 % (37.0-47.0); Immature Granulocyte Absolute 0.05 K/mm3 (0.00-0.031); Immature Granulocyte Percent A 0.4 % (0-0.5); Lymphocytes Percent Auto 8.8 % (18.3-44.2); Mean Corpuscular HGB Conc 31.7 g/dl (32-36); Mean Corpuscular Hemoglobin 31.4 pg (26-34); Mean Platelet Volume 10.6 fl (7.4-10.4); Monocytes Absolute Auto 0.9 K/mm3 (0.1-0.6); Monocytes Percent Auto 7.1 % (2.6-8.5); Neutrophils Absolute Auto 10.4 K/mm3 (1.3-6.7); Neutrophils Percent Auto 83.3 % (45.5-73.1); Platelet Count Result 192 k/mm3 (150-375); Red Blood Count 2.87 M/mm3 (4.2-5.4); Red Cell Distribution Width 19.9 % (11.5-14.5); White Blood Count 12.4 K/mm3 (4.5-10.0)
[2024-07-04] MEDS: LEVOTHYROXINE SODIUM 75 MCG TABLET PO (06:15)
[2024-07-04 06:18] LABS: Alanine Aminotransferase 19 U/L (6-35); Anion Gap 10 mmol/L (4-12); Blood Urea Nitrogen 21 mg/dL (7-17); Calcium 7.8 mg/dL (8.4-10.2); Carbon Dioxide 27 mmol/L (22-30); Chloride 103 mmol/L (98-107); Estimated CRCL calculation 41 ml/min; Estimated Glomerular Filt Rate 42; Glucose 83 mg/dL (65-110); Sodium 140 mmol/L (137-145)
[2024-07-04 06:24] LABS: Albumin Level 2.7 g/dL (3.5-5.1); Alkaline Phosphatase 57 U/L (38-126); Aspartate Amino Transferase 25 U/L (14-36); Potassium 2.9 mmol/L (3.4-5.0)
[2024-07-04] MEDS: FUROSEMIDE INJ 40 MG/4 ML VIAL IV PUSH (08:44)
[2024-07-04] MEDS: metroNIDAZOLE 500 MG TABLET BY MOUTH ×3 (08:45→18:52)
[2024-07-04] MEDS: METOPROLOL TARTRATE 50 MG TAB PO ×2 (08:45→20:43)
[2024-07-04] MEDS: FIDAXOMICIN 200 MG TABLET PO ×2 (08:45→20:43)
[2024-07-04] MEDS: levoFLOXacin 750 MG TABLET PO (08:45)
[2024-07-04] MEDS: FOLIC ACID 1 MG TABLET PO (08:45)
[2024-07-04] MEDS: levETIRAcetam 500 MG TABLET PO ×2 (08:46→20:43)
[2024-07-04] MEDS: POTASSIUM CHLORIDE 10 MEQ ER TABLET PO (08:46)
[2024-07-04] MEDS: POTASSIUM CHLORIDE INJ 40 MEQ in SODIUM CHLORIDE 0.9% IV 500 ML 130 MEQ IVPB (08:49)
[2024-07-04] MEDS: POTASSIUM CHLORIDE 20 MEQ ER TABLET 40 MEQ PO (08:49)
[2024-07-04] MEDS: OLMESARTAN MEDOXOMIL 20 MG TABLET 40 MG PO (08:49)
--- NOTE | 2024-07-04 14:22 | P.PNIM_ITS ---
Progress Note: A&P Assessment and Plan (1) Seizure: Code(s): R56.9 - Unspecified convulsions Status: Acute Assessment and Plan: 07/03/24: * New onset * Continue workup as ordered with neuro checks, EEG, MRI, and neurology consult. * Telemetry * Start Keppra 500 mg BID. Consider up titration as needed. * Seizure precautions. * Benzodiazepine prn for any seizure activity. * CT head negative. 07/04/24 * MRI shows Acute infarct left frontoparietal lobe in deep white matter. * EEG Pending. * Pt being started on Atorvastatin 80 mg daily, and loaded with Plavix 150 mg and start 75 mg tomorrow. * Start baby ASA daily. (2) Post-ictal confusion: Code(s): F05 - Delirium due to known physiological condition Status: Resolved Assessment and Plan: 07/03/24: * At baseline and A&Ox3. * Seizure precautions. 07/04/24: * Continue safety precautions (3) CVA (cerebral vascular accident): Code(s): I63.9 - Cerebral infarction, unspecified Status: Acute Assessment and Plan: 07/04/24: * As evidenced by MRI showing acute infarct of the left frontoparietal lobe in the deep white matter. 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 * Starting on Plavix, ASA and Atorvastatin. * Neurology is following. * No obvious deficits. (4) Diverticulitis of intestine with perforation without abscess: Qualifiers: Diverticulitis site: large intestine Diverticulitis bleeding: without bleeding Qualified Code(s): K57.20 - Diverticulitis of large intestine with perforation and abscess without bleeding Code(s): K57.80 - Diverticulitis of intestine, part unspecified, with perforation and abscess without bleeding Status: Acute Assessment and Plan: 07/03/24: * Continue Levaquin, Fidaxomycin and Flagyl * Monitor daily labs and VS and trend. 07/04/24: * Levaquin now completed. * Continue Fidaxomycin and Flagyl (5) Urinary retention: Code(s): R33.9 - Retention of urine, unspecified Status: Acute Assessment and Plan: 07/04/24: * Acute urinary retention requiring fitzpatrick yesterday. * Will attempt fitzpatrick removal tomorrow now that pt is not post-ictal. * Will do post void residuals and bladder scans tomorrow with voiding trial and if unable to void, will consult Urology. Pt may need urodynamic testing for potential neurogenic bladder since she has had a CVA. (6) Hypokalemia: Code(s): E87.6 - Hypokalemia Status: Acute Assessment and Plan: 07/04/24: * Potassium today is 2.9. * KCL 40 meq po and KCL 40 meq IVPB given. * Trend labs in AM. (7) C. difficile diarrhea: Code(s): A04.72 - Enterocolitis due to Clostridium difficile, not specified as recurrent Status: Acute Assessment and Plan: 07/03/24: * Pre-existing prior to coming into hospital. * Continue Fidaxomycin. (8) Hypothyroidism: Qualifiers: Hypothyroidism type: unspecified Qualified Code(s): E03.9 - Hypothyroidism, unspecified Code(s): E03.9 - Hypothyroidism, unspecified Status: Chronic Assessment and Plan: 07/03/24: * Continue home medications of Levothyroxine. (9) Hypertension: Qualifiers: Hypertension type: primary hypertension Qualified Code(s): I10 - Essential (primary) hypertension Code(s): I10 - Essential (primary) hypertension Status: Chronic Assessment and Plan: 07/03/24: * Stable. Continue metoprolol, Benicar and monitor. Plan Continue metronidazole (continue through 07/05/2024) for recent diverticulitis with abscess without perforation as well as fidaxomicin for C difficile diarrhea (treat through 07/11/2024). Time Spent With Patient Time with patient: 15 - 25 minutes Subjective Date/time seen: 07/04/24 1200 Interval history: This pt was examined at the bedside today. She is pleasantly confused when asked about the details of why she is admitted currently and what happened to her saying she came to ER because her back was hurting, but she is also A&Ox3 otherwise. When she was reminded of why she was truly brought to the ER for AMS and new onset seizures, she has no memory of this. She does remember that two days ago she had an acute pain on the right side of her face up into her head. She had MRI today that showed an acute infarct in the left frontoparietal deep white matter, PRES, and Diffuse pachymeningeal enhancement. She will be started on high dose statin and loaded with Plavix 150 mg today and 75 mg being started tomorrow. Neurology has consulted and follows along with Medicine. Pt without any new complaints today. Review of Systems Review of Systems: All systems reviewed & are unremarkable except as noted in HPI and below Exam Narrative: General: Ill-appearing female lying supine at this time in bed. HEENT: Normocephalic, atraumatic. PERRL, EOMI. Sclera anicteric. Neck: Supple. No midline vertebral tenderness. Respiratory: Respirations are nonlabored. She appears in no respiratory distress. Lung sounds are diminished due to poor effort. Cardiovascular: Regular rate and rhythm with S1-S2. BLE with 2+ Pitting edema. Gastrointestinal: Abdomen is soft, obese, nontender, and nondistended with positive bowel sounds. No guarding or rebound tenderness. Skin: Warm and dry. Scattered bruising on the upper extremities. Extremities: No cyanosis, clubbing. Radial and pedal pulses intact. 2+ BLE pitting edema present. Neurological: A&Ox3. She has no focal deficits. Psychiatric: Appropriate with normal affect. Objective Data Vital Signs Vital Signs: Vital Signs - 24 hr 07/03/24 16:00 07/03/24 16:40 07/03/24 16:40 Temperature 98.3 F Pulse Rate 82 82 82 Respiratory Rate 20 20 Blood Pressure 147/78 H Pulse Oximetry 100 100 Oxygen Delivery Nasal Cannula Oxygen Flow Rate 2 07/03/24 20:00 07/03/24 20:00 07/03/24 20:21 Temperature 98.7 F Pulse Rate 77 124 H Respiratory Rate 20 Blood Pressure 183/61 H Pulse Oximetry 98 96 Oxygen Delivery Nasal Cannula Oxygen Flow Rate 2 07/03/24 21:05 07/03/24 22:00 07/04/24 00:00 Temperature Pulse Rate 84 77 72 Respiratory Rate Blood Pressure Pulse Oximetry Oxygen Delivery Oxygen Flow Rate 07/04/24 00:00 07/04/24 00:12 07/04/24 02:00 Temperature 97.9 F Pulse Rate 75 69 Respiratory Rate 20 Blood Pressure 149/79 H Pulse Oximetry 99 98 Oxygen Delivery Nasal Cannula Oxygen Flow Rate 2 07/04/24 04:00 07/04/24 04:00 07/04/24 04:08 Temperature 97.7 F Pulse Rate 64 74 Respiratory Rate 20 Blood Pressure 154/82 H Pulse Oximetry 97 97 Oxygen Delivery Nasal Cannula Oxygen Flow Rate 2 07/04/24 06:00 07/04/24 08:00 07/04/24 08:32 Temperature 97.6 F Pulse Rate 65 75 76 Respiratory Rate 18 Blood Pressure 131/70 Pulse Oximetry 99 Oxygen Delivery Oxygen Flow Rate 07/04/24 08:45 07/04/24 12:00 07/04/24 12:22 Temperature 97.6 F Pulse Rate 77 85 81 Respiratory Rate 18 Blood Pressure 145/65 H Pulse Oximetry 98 Oxygen Delivery Oxygen Flow Rate Intake/Output Intake/Output: Intake & Output 07/01/24 07/02/24 07/03/24 07/04/24 23:59 23:59 23:59 23:59 Intake Total 1750 474 600 Output Total 982 904 7575 Balance 6112 -26 -7958 Meds/Results Medications: Active Medications Generic Name Dose Route Start Last Admin Trade Name Freq PRN Reason Stop Dose Admin Acetaminophen 650 mg 07/02/24 16:08 Acetaminophen 650 Mg Suppository RECTAL Q6H PRN Mild Pain (1-3) or Fever Alprazolam 1 mg 07/03/24 00:03 07/04/24 01:22 Alprazolam (*Crx) 0.5 Mg Tablet PO 1 mg QID PRN Administration anxiety Fidaxomicin 200 mg 07/03/24 09:00 07/04/24 08:45 Fidaxomicin 200 Mg Tablet PO 200 mg Q12HR SOLITARIO Administration Folic Acid 1 mg 07/03/24 09:00 07/04/24 08:45 Folic Acid 1 Mg Tablet PO 1 mg DAILY SOLITARIO Administration Furosemide 40 mg 07/03/24 17:00 07/04/24 08:44 Furosemide Inj 40 Mg/4 Ml Vial IV PUSH 40 mg BID SOLITARIO Administration Levetiracetam 500 mg 07/03/24 12:30 07/04/24 08:46 Levetiracetam 500 Mg Tablet PO 500 mg Q12HR SOLITARIO Administration Levothyroxine Sodium 75 mcg 07/03/24 06:30 07/04/24 06:15 Levothyroxine Sodium 75 Mcg Tablet PO 75 mcg DAILY@0630 SOLITARIO Administration Lorazepam 1 mg 07/02/24 23:55 Lorazepam Inj (*Crx) 2 Mg/Ml Vial IV PUSH Q2H PRN Seizures Metoprolol Tartrate 50 mg 07/03/24 09:00 07/04/24 08:45 Metoprolol Tartrate 50 Mg Tab PO 50 mg Q12HR SOLITARIO Administration Metronidazole 500 mg 07/03/24 09:00 07/04/24 13:51 Metronidazole 500 Mg Tablet BY MOUTH 07/05/24 23:59 500 mg TID SOLITARIO Administration Montelukast Sodium 10 mg 07/03/24 00:15 07/03/24 21:05 Montelukast Sodium 10 Mg Tablet PO 10 mg HS SOLITARIO Administration Olmesartan 40 mg 07/03/24 09:00 07/04/24 08:49 Olmesartan Medoxomil 20 Mg Tablet PO 40 mg DAILY SOLITARIO Administration Potassium Chloride 10 meq 07/03/24 08:00 07/04/24 08:46 Potassium Chloride 10 Meq Er Tablet PO 10 meq DAILY@0800 SOLITARIO Administration Radiology Results: ITS Impressions Chest X-Ray 07/02/24 13:16 IMPRESSION: 1. Small pleural effusions. 2. Airspace opacities at the lung bases, consistent with atelectasis or less likely pneumonia. Head CT 07/02/24 14:34 IMPRESSION: 1. Normal aging brain. Abdomen/Pelvis CT 07/02/24 14:36 IMPRESSION: 1. Persistent small collection of extra luminal gas in the left lower quadrant anterior abdominal wall immediately adjacent to a region of inflammatory stranding surrounding the descending colon consistent with diverticulitis. No abscess or more remote free intraperineal gas or fluid. 2. Persistent moderate-sized bilateral posterior layering pleural effusions with dependent compressive atelectasis in the visualized lower lobes. Brain MRI 07/04/24 11:30 IMPRESSION: 1. 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 2. 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 3. Diffuse pachymeningeal enhancement. This finding is most commonly secondary to prior lumbar puncture or spine procedure. ADDENDUM: 07/04/24 1216 The contrast volume was 20 mL MultiHance. Labs Labs: Laboratory Results - last 24 hr 07/04/24 07/04/24 05:29 05:29 WBC 12.4 H RBC 2.87 L Hgb 9.0 L Hct 28.4 L MCV 99.0 MCH 31.4 MCHC 31.7 L RDW 19.9 H Plt Count 192 MPV 10.6 H Immature Gran % (Auto) 0.4 Neut % (Auto) 83.3 H Lymph % (Auto) 8.8 L Stafford % (Auto) 7.1 Eos % (Auto) 0.2 Baso % (Auto) 0.2 Lymph # (Auto) 1.10 Stafford # (Auto) 0.9 H Eos # (Auto) 0.0 Baso # (Auto) 0.0 Abs Immat Gran (auto) 0.05 H Absolute Neuts (auto) 10.4 H Absolute Nucleated RBC 0.000 Nucleated RBC % 0.0 Sodium 140 Potassium 2.9 L Cancelled Chloride 103 Carbon Dioxide 27 Anion Gap 10 BUN 21 H Creatinine 1.24 H Estim Creat Clear Calc 41 Estimated GFR 42 L Glucose 83 Calcium 7.8 L Total Bilirubin 1.0 AST 25 ALT 19 Alkaline Phosphatase 57 Total Protein 5.0 L Albumin 2.7 L Quality VTE Prophylaxis VTE prophylaxis: mechanical ordered
[2024-07-04] MEDS: LIDOCAINE 1% PF INJ 5 ML VIAL INFILTRATE (15:20)
[2024-07-04] MEDS: CLOPIDOGREL BISULFATE 75 MG TABLET 150 MG PO (18:53)
[2024-07-04] MEDS: MONTELUKAST SODIUM 10 MG TABLET PO (20:43)
[2024-07-04] MEDS: ATORVASTATIN 40 MG TABLET 80 MG PO (20:43)
[2024-07-04] MEDS: CENTRAL LINE FLUSH 10 ML IV PUSH (20:44)
[2024-07-05] VITALS (18 sets, daily range): BP systolic 126–149; BP diastolic 51–77; PULSE 82–107; RESP 18–20; TEMP 36.4–37.1; O2SAT 97–100
--- NOTE | 2024-07-05 | ECHO_ITS ---
Patient Info Name: Melissa Tom Age: 73 years : 1950 Gender: Female Ht: 65 in Wt: 205 lbs BSA: 2.10 m2 HR: 86 bpm BP: 143 / 62 mmHg Heart Rhythm: Sinus Rhythm Technical Quality: Fair Exam Date: 07/05/2024 4:14 PM Exam Location: Echo Lab Patient Status: Inpatient Admit Date: 07/03/2024 Staff Ordering Physician: Elsy Tao Logistics Associate: Gely Macario RDCS Attending Provider: Elsy Tao Referring Physician: Aislinn RINCON; Exam Type: CA echo doppler w bubble study Study Info Indications - cva and dvt Complete two-dimensional, color flow and Doppler transthoracic echocardiogram is performed with agitated saline. Contrast/Agitated Saline Contrast/Ag. Saline: Agitated Saline Amount: 20.00 ml Existing IV Access: Yes IV Access Condition: patent with no signs of infiltration Summary 1. Left ventricular chamber dimension is normal. 2. Ventricular septum is sigmoid shaped. No resting LVOT obstruction. 3. Left ventricular systolic function is normal, estimated at 60-65%. 4. The left ventricular diastolic function is grade I diastolic dysfunction. 5. E/e' 13 is mildly elevated. 6. There is mild aortic valve sclerosis. 7. There is trace tricuspid valve regurgitation. 8. No pulmonary hypertension, estimated pulmonary arterial systolic pressure is 24 mmHg. Left Ventricle E/e' 13 is mildly elevated. Ventricular septum is sigmoid shaped. No resting LVOT obstruction. Left ventricular chamber dimension is normal. Left ventricular systolic function is normal, estimated at 60-65%. The left ventricular diastolic function is grade I diastolic dysfunction. Right Ventricle Right ventricular systolic function is normal and with normal TAPSE 1.8 cm. Right ventricular chamber dimension is normal. Left Atria Left atrial chamber dimension is normal. Right Atria Right atrial chamber dimension is normal. Atrial Septum Agitated saline injection with and without valsalva maneuver opacified right side cardiac chambers without shunt to left side cardiac chambers. Interatrial septum not well visualized by 2D and agitated saline imaging. Aortic Valve The aortic valve is trileaflet. There is mild aortic valve sclerosis. There is no aortic valve stenosis. There is no aortic valve regurgitation. Pulmonic Valve There is no pulmonic regurgitation. Mitral Valve There is no mitral valve stenosis. There is no mitral valve regurgitation. Tricuspid Valve There is trace tricuspid valve regurgitation. No pulmonary hypertension, estimated pulmonary arterial systolic pressure is 24 mmHg. Pericardium/Pleural There is no pericardial effusion. Inferior Vena Cava Normal inferior vena cava with >50% collapse upon inspiration consistent with normal right atrial pressure, 5 mmHg. Aorta The aortic root size at the sinus of Valsalva is normal. Left Ventricular Outflow Tract Name Value Normal LVOT 2D LVOT Diameter 2.0 cm LVOT Doppler LVOT Peak Gradient 4 mmHg LVOT Mean Gradient 2 mmHg LVOT VTI 17 cm LVOT VTI/AV VTI Ratio 0.9 LVOT Stroke Volume 54 ml LVOT CO 5.0 l/min LVOT CI 2.4 l/min/m2 Pulmonic Valve Name Value Normal RVOT Doppler RVOT Peak Gradient 3 mmHg PV Doppler PV Peak Gradient 5 mmHg Mitral Valve Name Value Normal MV Doppler MV Decel Barry 776 cm/s2 MV PHT 27 ms MV Area (PHT) 8.0 cm2 4.0-5.0 MV Diastolic Function MV E Peak Velocity 73 cm/s MV A Peak Velocity 125 cm/s MV E/A 0.6 MV Decel Time 94 ms MV Annular TDI MV E/e' (Septal) 14.9 <=8.0 MV E/e' (Lateral) 11.8 <=8.0 MV E/e' (Average) 13.4 Tricuspid Valve Name Value Normal TV Regurgitation Doppler TR Peak Velocity 217 cm/s TR Peak Gradient 19 mmHg Estimated PAP/RSVP RA Pressure 5 mmHg <=5 PA Systolic Pressure 24 mmHg <36 RV Systolic Pressure 24 mmHg <36 Aorta Name Value Normal Ascending Aorta Ao Root Diameter (MM) 3.1 cm Ao Root Diam Index (MM) 1.5 cm/m2 Aortic Valve Name Value Normal AV Doppler AV Peak Velocity 133 cm/s AV Peak Gradient 7 mmHg AV Mean Gradient 3 mmHg AV VTI 20 cm AV Area (Cont Eq VTI) 2.7 cm2 >=3.0 AV Area (Cont Eq Boo) 2.4 cm2 AV Regurgitation 2D LVOT Area 3.1 cm2 Ventricles Name Value Normal LV Dimensions 2D/MM IVS Diastolic Thickness (2D) 0.7 cm 0.6-1.0 LVID Diastole (2D) 4.3 cm 3.8-5.2 LVIW Diastolic Thickness (2D) 0.7 cm 0.6-0.9 LVID Systole (2D) 2.6 cm 2.2-3.5 LVOT Diameter 2.0 cm LV Mass (2D Cubed) 96.09 g 67.00-162.00 LV Mass Index (2D Cubed) 46 g/m2 43-95 Relative Wall Thickness (2D) 0.34 LV Fractional Shortening/Ejection Fraction 2D/MM LV Fractional Shortening (2D) 39 % 27-45 LV EF (2D Teicholz) 70 % 54-74 LV Diastolic Volume (4C MOD) 39 ml LV EF (4C MOD) 63 % LV Diastolic Volume (2C MOD) 35 ml LV EF (2C MOD) 51 % LV Diastolic Volume (BP MOD) 37 ml 46-106 LV Diastolic Volume Index (BP MOD) 18 ml/m2 29-61 LV Systolic Volume (BP MOD) 16 ml 14-42 LV Systolic Volume Index (BP MOD) 8 ml/m2 8-24 LV EF (BP MOD) 57 % 54-74 LV Diastolic Length (4C) 6.6 cm LV Systolic Length (4C) 5.9 cm LV Stroke Volume (4C MOD) 24 ml Atria Name Value Normal LA Dimensions LA Dimension (MM) 3.3 cm 2.7-3.8 LA Volume (4C A-L) 41 ml LA Volume (BP A-L) 38 ml RA Dimensions RA Area (4C) 9.6 cm2 <=18.0 Report Signatures
[2024-07-05] MEDS: ALPRAZolam (*CRX) 0.5 MG TABLET 1 MG PO (01:28)
[2024-07-05] MEDS: LEVOTHYROXINE SODIUM 75 MCG TABLET PO (06:15)
[2024-07-05] MEDS: CENTRAL LINE FLUSH 10 ML IV PUSH ×3 (06:15→21:13)
[2024-07-05 08:28] LABS: Basophils Percent Auto 0.2 % (0.2-1.2); Eosinophils Percent Auto 0.2 % (0-4.4); Hematocrit 28.2 % (37.0-47.0); Hemoglobin 9.2 g/dL (12.0-15.0); Immature Granulocyte Absolute 0.09 K/mm3 (0.00-0.031); Immature Granulocyte Percent A 0.7 % (0-0.5); Lymphocytes Absolute Auto 0.99 K/mm3 (0.9-3.2); Mean Corpuscular HGB Conc 32.6 g/dl (32-36); Mean Corpuscular Hemoglobin 31.9 pg (26-34); Mean Corpuscular Volume 97.9 fl (80-100); Mean Platelet Volume 10.5 fl (7.4-10.4); Neutrophils Absolute Auto 10.3 K/mm3 (1.3-6.7); Neutrophils Percent Auto 82.9 % (45.5-73.1); Platelet Count Result 213 k/mm3 (150-375); Red Blood Count 2.88 M/mm3 (4.2-5.4); Red Cell Distribution Width 19.6 % (11.5-14.5); White Blood Count 12.4 K/mm3 (4.5-10.0)
[2024-07-05] MEDS: FUROSEMIDE INJ 40 MG/4 ML VIAL IV PUSH ×2 (08:33→17:18)
[2024-07-05] MEDS: ATORVASTATIN 40 MG TABLET 80 MG PO (08:34)
[2024-07-05] MEDS: OLMESARTAN MEDOXOMIL 20 MG TABLET 40 MG PO (08:34)
[2024-07-05] MEDS: ASPIRIN 81 MG CHEWABLE TABLET PO (08:35)
[2024-07-05] MEDS: POTASSIUM CHLORIDE 10 MEQ ER TABLET PO (08:35)
[2024-07-05] MEDS: FOLIC ACID 1 MG TABLET PO (08:35)
[2024-07-05] MEDS: CLOPIDOGREL BISULFATE 75 MG TABLET PO (08:35)
[2024-07-05] MEDS: metroNIDAZOLE 500 MG TABLET BY MOUTH ×3 (08:36→17:15)
[2024-07-05] MEDS: levETIRAcetam 500 MG TABLET PO ×2 (08:36→21:12)
[2024-07-05] MEDS: METOPROLOL TARTRATE 50 MG TAB PO ×2 (08:36→21:11)
[2024-07-05] MEDS: FIDAXOMICIN 200 MG TABLET PO ×2 (08:39→21:12)
[2024-07-05 08:45] LABS: Alanine Aminotransferase 19 U/L (6-35); Albumin Level 2.9 g/dL (3.5-5.1); Alkaline Phosphatase 73 U/L (38-126); Anion Gap 11 mmol/L (4-12); Aspartate Amino Transferase 21 U/L (14-36); Bilirubin,Total 1.1 mg/dL (0.2-1.3); Blood Urea Nitrogen 18 mg/dL (7-17); Calcium 7.7 mg/dL (8.4-10.2); Carbon Dioxide 27 mmol/L (22-30); Chloride 103 mmol/L (98-107); Estimated CRCL calculation 40 ml/min; Estimated Glomerular Filt Rate 42; Glucose 89 mg/dL (65-110); Potassium 2.7 mmol/L (3.4-5.0); Sodium 141 mmol/L (137-145)
[2024-07-05] MEDS: POTASSIUM CHLORIDE 20 MEQ ER TABLET 40 MEQ PO (09:36)
[2024-07-05] MEDS: POTASSIUM CHLORIDE INJ 40 MEQ in SODIUM CHLORIDE 0.9% IV 500 ML 130 MEQ IVPB (09:36)
--- NOTE | 2024-07-05 10:39 | P.CDI_ITS ---
<Statement entered by Elsy Tao, [employer]PERATOR-C - 07/05/24 11:11> UTI and Sepsis were ruled out as diagnosis for this pt. CDI Query Clarification Request The following as been documented by ER provider. Please clarify if UTI and Sepsis were ruled in or ruled out on admission Acute UTI, Seizure Sepsis Qualifiers: Sepsis type: sepsis due to unspecified organism Sepsis acute organ dysfunction status: with acute organ dysfunction Severe sepsis acute organ dysfunction type: encephalopathy Severe sepsis shock status: without septic shock Qualified Code(s): A41.9 - Sepsis, unspecified organism clinical findings: WBC: 15.5,13.1,12.4 Lactic: 2.7,2.3 Treatment: IV abx
--- NOTE | 2024-07-05 13:08 | P.PNIM_ITS ---
Progress Note: A&P Assessment and Plan (1) Seizure: Code(s): R56.9 - Unspecified convulsions Status: Acute Assessment and Plan: 07/03/24: * New onset * Continue workup as ordered with neuro checks, EEG, MRI, and neurology consult. * Telemetry * Start Keppra 500 mg BID. Consider up titration as needed. * Seizure precautions. * Benzodiazepine prn for any seizure activity. * CT head negative. 07/04/24 * MRI shows Acute infarct left frontoparietal lobe in deep white matter. * EEG Pending. * Pt being started on Atorvastatin 80 mg daily, and loaded with Plavix 150 mg and start 75 mg tomorrow. * Start baby ASA daily. 07/05/24: * Awaiting EEG. * Continue Keppra * Continue telemetry * Continue prn benzodiazepines * Continue meds of Plavix, ASA and Atorvastatin * OK to move off IMU (2) Post-ictal confusion: Code(s): F05 - Delirium due to known physiological condition Status: Resolved Assessment and Plan: 07/03/24: * At baseline and A&Ox3. * Seizure precautions. 07/04/24: * Continue safety precautions 07/05/24: * Continue precautions and treatments as noted above. * Pt demonstrating transient confusion, but is very believable in what she is saying. Example: She told me that she lives at home alone prior to her event that led to this hospitalization, however, she is SNF at [facility]. (3) CVA (cerebral vascular accident): Code(s): I63.9 - Cerebral infarction, unspecified Status: Acute Assessment and Plan: 07/04/24: * As evidenced by MRI showing acute infarct of the left frontoparietal lobe in the deep white matter. Also showing PRES and Diffuse Pachymeningeal enhancement. * Starting on Plavix, ASA and Atorvastatin. * Neurology is following. * LLE weakness 07/05/24: * Continue current treatments. * EEG pending * PT and OT ordered. (4) Edema: Code(s): R60.9 - Edema, unspecified Status: Acute Assessment and Plan: 07/05/24: * RLE edema 2+ pitting, LLE edema trace * Lower suspicion of VTE, but given recent embolic event with CVA, Venous dopplers ordered. * Lovenox preventatively dosed initiated. * Continue Lasix and supplemental potassium dosing. (5) Diverticulitis of intestine with perforation without abscess: Qualifiers: Diverticulitis site: large intestine Diverticulitis bleeding: without bleeding Qualified Code(s): K57.20 - Diverticulitis of large intestine with perforation and abscess without bleeding Code(s): K57.80 - Diverticulitis of intestine, part unspecified, with perforation and abscess without bleeding Status: Acute Assessment and Plan: 07/03/24: * Continue Levaquin, Fidaxomycin and Flagyl * Monitor daily labs and VS and trend. 07/04/24: * Levaquin now completed. * Continue Fidaxomycin and Flagyl 07/05/24: * Last dose of Flagyl will be today. * Continue Fidaxomycin through the . (6) Urinary retention: Code(s): R33.9 - Retention of urine, unspecified Status: Acute Assessment and Plan: 07/04/24: * Acute urinary retention requiring fitzpatrick yesterday. * Will attempt fitzpatrick removal tomorrow now that pt is not post-ictal. * Will do post void residuals and bladder scans tomorrow with voiding trial and if unable to void, will consult Urology. Pt may need urodynamic testing for potential neurogenic bladder since she has had a CVA. 07/05/24: * Voiding trial today. * Catheter removed and PVR's measured. * I was called by the RN at 1335 and told that she has 248 ml in bladder without sensation to void. Advised that if she did not urinate within the next hour, she will need the catheter replaced. Will go ahead and consult Urology. (7) Hypokalemia: Code(s): E87.6 - Hypokalemia Status: Acute Assessment and Plan: 07/04/24: * Potassium today is 2.9. * KCL 40 meq po and KCL 40 meq IVPB given. * Trend labs in AM. 07/05/24: * Potassium level today is 2.7 despite her receiving the K+ rider yesterday and the po dose. * Another 40 mEq po and 40 mEq IVPB are ordered. * Reassess level in AM. (8) C. difficile diarrhea: Code(s): A04.72 - Enterocolitis due to Clostridium difficile, not specified as recurrent Status: Acute Assessment and Plan: 07/03/24: * Pre-existing prior to coming into hospital. * Continue Fidaxomycin. (9) Hypothyroidism: Qualifiers: Hypothyroidism type: unspecified Qualified Code(s): E03.9 - Hypothyroidism, unspecified Code(s): E03.9 - Hypothyroidism, unspecified Status: Chronic Assessment and Plan: 07/03/24: * Continue home medications of Levothyroxine. (10) Hypertension: Qualifiers: Hypertension type: primary hypertension Qualified Code(s): I10 - Essential (primary) hypertension Code(s): I10 - Essential (primary) hypertension Status: Chronic Assessment and Plan: 07/03/24: * Stable. Continue metoprolol, Benicar and monitor. Plan Continue fidaxomicin for C difficile diarrhea (treat through 07/11/2024). Time Spent With Patient Time with patient: 25 - 35 minutes Subjective Date/time seen: 07/05/24 1045 Interval history: This pleasant pt was examined again at the bedside today and she was told that MRI did show that she had a CVA. She was started on Plavix, ASA, and Atorvastatin. As she is weaker in the LLE, and states she cannot walk, PT and OT are ordered, as is care coordination so discharge arrangements can be initiated. Will attempt a trial of urination today as pt had urinary retention upon admission. Post void residuals are ordered and if replacement of fitzpatrick is required, Urology will need to be consulted. Concern for potential neurogenesis after CVA. On exam today, the pt has a noted greater edema to the RLE as compared to the left. As she did just have a thromboembolic event, a bilateral Venous duplex is ordered. Pt's Potassium today is noted to be low at 2.7. A 40 mEq dose po and a 40 mEq rider is ordered. Will need to continue to trend in AM. Pt is without any other acute complaints today and no new s/s. Review of Systems Review of Systems: All systems reviewed & are unremarkable except as noted in HPI and below Exam Narrative: General: Ill-appearing female lying supine at this time in bed. HEENT: Normocephalic, atraumatic. PERRL, EOMI. Sclera anicteric. Neck: Supple. No midline vertebral tenderness. Respiratory: Respirations are nonlabored. She appears in no respiratory distress. Lung sounds are diminished due to poor effort. Cardiovascular: Regular rate and rhythm with S1-S2. BLE with 2+ Pitting edema. Gastrointestinal: Abdomen is soft, obese, nontender, and nondistended with positive bowel sounds. No guarding or rebound tenderness. Skin: Warm and dry. Scattered bruising on the upper extremities. Extremities: No cyanosis, clubbing. Radial and pedal pulses intact. 2+ RLE pitting edema present and trace LLE edema. Neurological: A&Ox3. She has weakness noted in the LLE. Psychiatric: Appropriate with normal affect. Objective Data Vital Signs Vital Signs: Vital Signs - 24 hr 07/04/24 14:00 07/04/24 16:00 07/04/24 16:00 Temperature 97.9 F Pulse Rate 86 91 87 Respiratory Rate 20 Blood Pressure 123/66 Pulse Oximetry 96 Oxygen Delivery 07/04/24 18:00 07/04/24 19:58 07/04/24 20:40 Temperature 98.6 F Pulse Rate 89 95 96 Respiratory Rate 18 Blood Pressure 135/53 L Pulse Oximetry 98 Oxygen Delivery 07/04/24 20:43 07/04/24 20:50 07/04/24 22:00 Temperature Pulse Rate 95 95 86 Respiratory Rate 18 Blood Pressure Pulse Oximetry 98 Oxygen Delivery Room Air 07/04/24 23:30 07/05/24 00:00 07/05/24 00:18 Temperature 98.7 F Pulse Rate 86 82 87 Respiratory Rate 18 20 Blood Pressure 149/63 H Pulse Oximetry 98 97 Oxygen Delivery Room Air 07/05/24 02:00 07/05/24 04:00 07/05/24 04:32 Temperature Pulse Rate 93 92 93 Respiratory Rate 20 Blood Pressure Pulse Oximetry 97 Oxygen Delivery Room Air 07/05/24 04:41 07/05/24 06:00 07/05/24 07:58 Temperature 97.6 F 97.9 F Pulse Rate 95 96 101 H Respiratory Rate 20 20 Blood Pressure 148/77 H 145/68 H Pulse Oximetry 99 97 Oxygen Delivery 07/05/24 08:36 07/05/24 11:35 Temperature 98.3 F Pulse Rate 104 H 86 Respiratory Rate 18 Blood Pressure 143/62 H Pulse Oximetry 100 Oxygen Delivery Intake/Output Intake/Output: Intake & Output 07/02/24 07/03/24 07/04/24 07/05/24 23:59 23:59 23:59 23:59 Intake Total 1750 474 890 310 Output Total 432 786 5001 400 Balance 1450 -76 -2510 -90 Meds/Results Medications: Active Medications Generic Name Dose Route Start Last Admin Trade Name Freq PRN Reason Stop Dose Admin Acetaminophen 650 mg 07/02/24 16:08 Acetaminophen 650 Mg Suppository RECTAL Q6H PRN Mild Pain (1-3) or Fever Alprazolam 1 mg 07/03/24 00:03 07/05/24 01:28 Alprazolam (*Crx) 0.5 Mg Tablet PO 1 mg QID PRN Administration anxiety Aspirin 81 mg 07/05/24 08:00 07/05/24 08:35 Aspirin 81 Mg Chewable Tablet PO 81 mg DAILY@0800 SOLITARIO Administration Atorvastatin Calcium 80 mg 07/04/24 21:00 07/05/24 08:34 Atorvastatin 40 Mg Tablet PO 80 mg DAILY SOLITARIO Administration Clopidogrel Bisulfate 75 mg 07/05/24 09:00 07/05/24 08:35 Clopidogrel Bisulfate 75 Mg Tablet PO 75 mg QAM SOLITARIO Administration Fidaxomicin 200 mg 07/03/24 09:00 07/05/24 08:39 Fidaxomicin 200 Mg Tablet PO 200 mg Q12HR SOLITARIO Administration Folic Acid 1 mg 07/03/24 09:00 07/05/24 08:35 Folic Acid 1 Mg Tablet PO 1 mg DAILY SOLITARIO Administration Furosemide 40 mg 07/03/24 17:00 07/05/24 08:33 Furosemide Inj 40 Mg/4 Ml Vial IV PUSH 40 mg BID SOLITARIO Administration Potassium Chloride 40 meq/ 520 mls @ 130 mls/hr 07/05/24 10:00 07/05/24 09:36 Sodium Chloride IVPB 07/05/24 13:59 130 mls/hr ONCE ONE Administration Levetiracetam 500 mg 07/03/24 12:30 07/05/24 08:36 Levetiracetam 500 Mg Tablet PO 500 mg Q12HR SOLITARIO Administration Levothyroxine Sodium 75 mcg 07/03/24 06:30 07/05/24 06:15 Levothyroxine Sodium 75 Mcg Tablet PO 75 mcg DAILY@0630 SOLITARIO Administration Lorazepam 1 mg 07/02/24 23:55 Lorazepam Inj (*Crx) 2 Mg/Ml Vial IV PUSH Q2H PRN Seizures Metoprolol Tartrate 50 mg 07/03/24 09:00 07/05/24 08:36 Metoprolol Tartrate 50 Mg Tab PO 50 mg Q12HR SOLITARIO Administration Metronidazole 500 mg 07/03/24 09:00 07/05/24 08:36 Metronidazole 500 Mg Tablet BY MOUTH 07/05/24 23:59 500 mg TID SOLITARIO Administration Montelukast Sodium 10 mg 07/03/24 00:15 07/04/24 20:43 Montelukast Sodium 10 Mg Tablet PO 10 mg HS SOLITARIO Administration Olmesartan 40 mg 07/03/24 09:00 07/05/24 08:34 Olmesartan Medoxomil 20 Mg Tablet PO 40 mg DAILY SOLITARIO Administration Potassium Chloride 10 meq 07/03/24 08:00 07/05/24 08:35 Potassium Chloride 10 Meq Er Tablet PO 10 meq DAILY@0800 SOLITARIO Administration Sodium Chloride 20 ml 07/04/24 16:15 Central Line Flush IV PUSH PRN PRN after blood draws Sodium Chloride 10 ml 07/04/24 16:15 Central Line Flush IV PUSH PRN PRN with TPN bag changes Sodium Chloride 10 ml 07/04/24 22:00 07/05/24 06:15 Central Line Flush IV PUSH 10 ml Q8HR SOLITARIO Administration Radiology Results: ITS Impressions Chest X-Ray 07/02/24 13:16 IMPRESSION: 1. Small pleural effusions. 2. Airspace opacities at the lung bases, consistent with atelectasis or less likely pneumonia. Head CT 07/02/24 14:34 IMPRESSION: 1. Normal aging brain. Abdomen/Pelvis CT 07/02/24 14:36 IMPRESSION: 1. Persistent small collection of extra luminal gas in the left lower quadrant anterior abdominal wall immediately adjacent to a region of inflammatory stranding surrounding the descending colon consistent with diverticulitis. No abscess or more remote free intraperineal gas or fluid. 2. Persistent moderate-sized bilateral posterior layering pleural effusions with dependent compressive atelectasis in the visualized lower lobes. Brain MRI 07/04/24 11:30 IMPRESSION: 1. 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 2. 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 3. Diffuse pachymeningeal enhancement. This finding is most commonly secondary to prior lumbar puncture or spine procedure. ADDENDUM: 07/04/24 1216 The contrast volume was 20 mL MultiHance. Labs Labs: Laboratory Results - last 24 hr 07/05/24 08:11 WBC 12.4 H RBC 2.88 L Hgb 9.2 L Hct 28.2 L MCV 97.9 MCH 31.9 MCHC 32.6 RDW 19.6 H Plt Count 213 MPV 10.5 H Immature Gran % (Auto) 0.7 H Neut % (Auto) 82.9 H Lymph % (Auto) 8.0 L [place] % (Auto) 8.0 Eos % (Auto) 0.2 Baso % (Auto) 0.2 Lymph # (Auto) 0.99 [place] # (Auto) 1.0 H Eos # (Auto) 0.0 Baso # (Auto) 0.0 Abs Immat Gran (auto) 0.09 H Absolute Neuts (auto) 10.3 H Absolute Nucleated RBC 0.000 Nucleated RBC % 0.0 Sodium 141 Potassium 2.7 L* Chloride 103 Carbon Dioxide 27 Anion Gap 11 BUN 18 H Creatinine 1.24 H Estim Creat Clear Calc 40 Estimated GFR 42 L Glucose 89 Calcium 7.7 L Total Bilirubin 1.1 AST 21 ALT 19 Alkaline Phosphatase 73 Total Protein 5.0 L Albumin 2.9 L Quality VTE Prophylaxis VTE prophylaxis: pharmacologic ordered
--- NOTE | 2024-07-05 14:01 | PCNEURO ---
EEG was done yesterday. There is no neurologist here to read it today. Cancelling out duplicate order.
--- NOTE | 2024-07-05 15:23 | WPDURCON ---
Assessment and Plan Assessment and plan (1) Acute urinary retention: Code(s): R33.8 - Other retention of urine Status: Acute Assessment and Plan: - Likely 2/2 acute CVA (2) CKD (chronic kidney disease): Qualifiers: Chronic kidney disease stage: unspecified stage Qualified Code(s): N18.9 - Chronic kidney disease, unspecified Code(s): N18.9 - Chronic kidney disease, unspecified Status: Chronic Assessment and Plan: - Chronic, stable - CKD IIIb at baseline Plan - Acute urinary retention likely 2/2 acute CVA. - Maintain indwelling Leija catheter. Anticipate retention to resolve over the next several weeks as she recovers from CVA and other acute issues. OK to repeat VT in 1-2 weeks. - If retention does not resolve over time, consider formal bladder workup to include Urodynamics. - No plan for inpatient urologic surgical intervention. - Plan to establish with outpatient urology for further management. Urology Consult Note HPI Date Seen: 07/05/24 Requesting Physician: VEE Garcia Primary Care Provider: UNKNOWN,DOCTOR Consult Narrative Reason for consult: Acute urinary retention Narrative: Melissa Tom is a 73 year old female admitted 07/02/24 from rehab for evaluation of altered mental status, unresponsive episode. On chart review she had a witnessed seizure in the ER. Neurology was consulted -- she also had an acute CVA. Also diagnosed with RLE DVT today. Urology was consulted for evaluation of acute urinary retention. Leija was placed following seizure episode. Attempted void trial today given her mental status has improved. Failed void trial, PVR bladder scan 248mL. Indwelling Leija replaced and is draining clear yellow urine. Medical history significant for COPD, CKD 3b, SRIRAM, obesity. Recently hospitalized prior to rehab stay with C.diff, EColi UTI, weakness, deconditioning. DNR code status noted. She denies previous urological evaluation. Patient resting comfortably on exam. No distress. Denies specific complaint, just feels weak. PERTINENT LABS: 07/05/24 - WBC 12.4, HGB 9.2, Cr 1.24 (baseline 1.2-1.4). 07/02/24 - Urinalysis: trace LE, +nit, 6-10 RBC, <5 WBC Urine culture negative. Blood culture NGTD. PERTINENT IMAGIN07/02/24 CT AP W CON - Likely age-related mild diffuse bilateral renal atrophy. Normal bladder PMFSH Past Medical History Medical History (Updated 07/05/24 @ 15:37 by Justina Moncada APRN) Edema Hypokalemia CVA (cerebral vascular accident) Urinary retention Chronic obstructive pulmonary disease Chronic kidney disease C. difficile colitis (2021) Megaloblastic anemia Hiatal hernia Anxiety Postmenopausal Hypothyroidism Gout Sleep apnea intolerant of CPAP Diverticulitis Hypertension Surgical History Surgical History History of partial hysterectomy History of appendectomy incidental appendectomy during open cholecystectomy History of tonsillectomy and adenoidectomy History of cholecystectomy Family History Family History Other Family history of malignant neoplasm Social History Social History Social History: Surrogate medical decision maker: Jeremiah Tom, arturo ([phone]). Code status: Do not resuscitate. Smoking packs per day: 1 Smoking cigarettes per day: 20.0 Years smoked: 5 Smoking pack-years: 5.00 Smoking status: Never smoker Tobacco type: cigarettes Alcohol intake: never Substance use: never Substance use type: does not use Do You Feel Safe in your Home?: Yes Lack of Transportation: YES Lack of Food: Never True Current Housing: I Have Housing Concerned About Future Housing: No Difficulty Paying Gas/Electric Bills: No Difficulty Paying for Meds: No Currently Unemployed: No Education: High School Diploma/GED Difficulty w/ Childcare or Family Care: No Additional living arrangements comments: since 1987. She had a daughter who of complications of juvenile diabetes at the age of 40. Her son is still living. Ambulates with a walker. 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 Spiritual care concerns: No Meds Home Medications and Allergies Home Medications ?Medication ?Instructions ?Recorded ?Confirmed ?Type esomeprazole magnesium 40 mg 1 cap PO 2XD 11/23/21 07/02/24 History capsule,delayed release (Nexium) levothyroxine 75 mcg tablet 1 tablet PO DAILY 11/23/21 07/02/24 History (Synthroid) metoprolol tartrate 50 mg tablet 1 tablet PO BID 11/23/21 07/02/24 History (Lopressor) montelukast 10 mg tablet 1 tablet PO HS 11/23/21 07/02/24 History (Singulair) trazodone 100 mg tablet 100 mg PO HS 11/23/21 07/02/24 History meclizine 12.5 mg tablet 12.5 mg PO TID PRN dizziness #60 05/18/24 07/02/24 Rx tabs potassium chloride 10 mEq 1 tablet PO DAILY #30 tabs 05/18/24 07/02/24 Rx tablet,extended release (Klor-Con) alprazolam 1 mg tablet 1 mg PO QID PRN anxiety #5 tabs 06/28/24 07/02/24 Rx fidaxomicin 200 mg tablet (Dificid) 200 mg PO Q12HR #27 tabs 06/28/24 07/02/24 Rx folic acid 1 mg tablet 1 mg PO DAILY #30 tabs 06/28/24 07/02/24 Rx tramadol 50 mg tablet 50 mg PO DAILY PRN pain #5 tabs 06/28/24 07/02/24 Rx tramadol 50 mg tablet 100 mg (2 x 50 mg) PO HS PRN pain 06/28/24 07/02/24 Rx #5 tabs bisacodyl 10 mg rectal suppository 10 mg RECTAL DAILY PRN constipation 07/02/24 07/02/24 History cyanocobalamin (vitamin B-12) 1,000 mcg PO DAILY 07/02/24 07/02/24 History 1,000 mcg tablet (Vitamin B-12) levofloxacin 750 mg tablet 750 mg PO DAILY 07/02/24 07/02/24 History magnesium citrate (Citrate of 296 ml PO DAILY PRN constipation 07/02/24 07/02/24 History Magnesia oral) magnesium hydroxide 400 mg/5 mL 30 ml PO HS PRN constipation 07/02/24 07/02/24 History oral suspension (Dulcolax (magnesium hydroxide)) metronidazole 500 mg tablet 500 mg PO TID 07/02/24 07/02/24 History olmesartan 20 mg tablet (Benicar) 40 mg PO DAILY 07/02/24 07/02/24 History sodium phosphates 19 gram-7 118 ml RECTAL DAILY PRN 07/02/24 07/02/24 History gram/118 mL enema (Enema) constipation vancomycin 125 mg capsule 125 mg PO QID 07/02/24 07/02/24 History (Vancocin) Allergies Allergy/AdvReac Type Severity Reaction Status Date / Time No Known Allergies Allergy Mild Verified 07/02/24 21:56 Vital Signs Vital Signs - 24 hr 07/04/24 16:00 07/04/24 16:00 07/04/24 18:00 Temperature 97.9 F Pulse Rate 91 87 89 Respiratory Rate 20 Blood Pressure 123/66 Pulse Oximetry 96 Oxygen Delivery 07/04/24 19:58 07/04/24 20:40 07/04/24 20:43 Temperature 98.6 F Pulse Rate 95 96 95 Respiratory Rate 18 Blood Pressure 135/53 L Pulse Oximetry 98 Oxygen Delivery 07/04/24 20:50 07/04/24 22:00 07/04/24 23:30 Temperature Pulse Rate 95 86 86 Respiratory Rate 18 18 Blood Pressure Pulse Oximetry 98 98 Oxygen Delivery Room Air Room Air 07/05/24 00:00 07/05/24 00:18 07/05/24 02:00 Temperature 98.7 F Pulse Rate 82 87 93 Respiratory Rate 20 Blood Pressure 149/63 H Pulse Oximetry 97 Oxygen Delivery 07/05/24 04:00 07/05/24 04:32 07/05/24 04:41 Temperature 97.6 F Pulse Rate 92 93 95 Respiratory Rate 20 20 Blood Pressure 148/77 H Pulse Oximetry 97 99 Oxygen Delivery Room Air 07/05/24 06:00 07/05/24 07:58 07/05/24 08:36 Temperature 97.9 F Pulse Rate 96 101 H 104 H Respiratory Rate 20 Blood Pressure 145/68 H Pulse Oximetry 97 Oxygen Delivery 07/05/24 11:35 Temperature 98.3 F Pulse Rate 86 Respiratory Rate 18 Blood Pressure 143/62 H Pulse Oximetry 100 Oxygen Delivery Exam Const: General: no acute distress Resp: Effort & Inspection: normal respiratory effort Urinary Catheter: Urinary Catheter: patent and draining and urine clear Results Labs 07/05/24 08:11 07/05/24 08:11 Labs: Short CBC 07/05/24 Range/Units 08:11 WBC 12.4 H (4.5-10.0) K/mm3 Hgb 9.2 L (12.0-15.0) g/dL Hct 28.2 L (37.0-47.0) % Plt Count 213 (150-375) k/mm3 BMP 07/05/24 08:11 Sodium 141 Potassium 2.7 L* Chloride 103 Carbon Dioxide 27 BUN 18 H Creatinine 1.24 H Glucose 89 Calcium 7.7 L Liver Function 07/05/24 Range/Units 08:11 Total Bilirubin 1.1 (0.2-1.3) mg/dL AST 21 (14-36) U/L ALT 19 (6-35) U/L Alkaline Phosphatase 73 (38-126) U/L Albumin 2.9 L (3.5-5.1) g/dL
--- NOTE | 2024-07-05 15:31 | PC.NURSE ---
On 07/05/24, the student, [Rosenda Alarcon], provided care and completed [facility] documentation on this patient. I have reviewed the student's documentation and agree with the findings.
--- NOTE | 2024-07-05 15:51 | PCOTNOTE ---
RN asking to hold on OT evaluation due to new finding of acute DVT in LE. Will continue to follow and see when appropriate.
[2024-07-05] MEDS: MONTELUKAST SODIUM 10 MG TABLET PO (21:12)
[2024-07-05] MEDS: ENOXAPARIN 100 MG/ML SYRINGE 95 MG SUB-Q (21:12)
--- NOTE | 2024-07-05 21:54 | PC.NURSE ---
Kendal, niece of patient, called in for an update on patient. I spoke with patient and obtained verbal consent to provide Kendal with information regarding patient's hospitalization. Kendal asked about visiting hours and I advised her 8am-8pm.
[2024-07-06] VITALS (16 sets, daily range): BP systolic 110–138; BP diastolic 45–59; PULSE 86–111; RESP 16–20; TEMP 36.3–37.1; O2SAT 96–99
[2024-07-06] MEDS: LEVOTHYROXINE SODIUM 75 MCG TABLET PO (06:23)
[2024-07-06] MEDS: CENTRAL LINE FLUSH 10 ML IV PUSH ×3 (06:24→22:25)
[2024-07-06 06:41] LABS: Basophils Percent Auto 0.2 % (0.2-1.2); Eosinophils Absolute Auto 0.1 K/mm3 (0-0.3); Eosinophils Percent Auto 0.5 % (0-4.4); Hematocrit 26.8 % (37.0-47.0); Hemoglobin 8.7 g/dL (12.0-15.0); Immature Granulocyte Absolute 0.04 K/mm3 (0.00-0.031); Immature Granulocyte Percent A 0.4 % (0-0.5); Lymphocytes Absolute Auto 1.15 K/mm3 (0.9-3.2); Lymphocytes Percent Auto 12.5 % (18.3-44.2); Mean Corpuscular HGB Conc 32.5 g/dl (32-36); Mean Corpuscular Hemoglobin 31.4 pg (26-34); Mean Corpuscular Volume 96.8 fl (80-100); Mean Platelet Volume 10.1 fl (7.4-10.4); Monocytes Absolute Auto 0.9 K/mm3 (0.1-0.6); Monocytes Percent Auto 9.3 % (2.6-8.5); Neutrophils Absolute Auto 7.1 K/mm3 (1.3-6.7); Neutrophils Percent Auto 77.1 % (45.5-73.1); Platelet Count Result 192 k/mm3 (150-375); Red Blood Count 2.77 M/mm3 (4.2-5.4); Red Cell Distribution Width 19.6 % (11.5-14.5); White Blood Count 9.2 K/mm3 (4.5-10.0)
[2024-07-06 07:00] LABS: Alanine Aminotransferase 17 U/L (6-35); Albumin Level 2.8 g/dL (3.5-5.1); Alkaline Phosphatase 71 U/L (38-126); Anion Gap 8 mmol/L (4-12); Aspartate Amino Transferase 18 U/L (14-36); Blood Urea Nitrogen 18 mg/dL (7-17); Calcium 7.6 mg/dL (8.4-10.2); Carbon Dioxide 29 mmol/L (22-30); Chloride 105 mmol/L (98-107); Estimated CRCL calculation 36 ml/min; Estimated Glomerular Filt Rate 38; Glucose 87 mg/dL (65-110); Magnesium 1.1 mg/dL (1.6-2.3); Potassium 2.8 mmol/L (3.4-5.0); Sodium 142 mmol/L (137-145)
[2024-07-06] MEDS: OLMESARTAN MEDOXOMIL 20 MG TABLET 40 MG PO (09:35)
[2024-07-06] MEDS: FOLIC ACID 1 MG TABLET PO (09:35)
[2024-07-06] MEDS: POTASSIUM CHLORIDE 10 MEQ ER TABLET PO (09:36)
[2024-07-06] MEDS: levETIRAcetam 500 MG TABLET PO ×2 (09:36→22:15)
[2024-07-06] MEDS: ASPIRIN 81 MG CHEWABLE TABLET PO (09:36)
[2024-07-06] MEDS: ATORVASTATIN 40 MG TABLET 80 MG PO (09:37)
[2024-07-06] MEDS: CLOPIDOGREL BISULFATE 75 MG TABLET PO (09:37)
[2024-07-06] MEDS: FIDAXOMICIN 200 MG TABLET PO ×2 (09:37→22:24)
[2024-07-06] MEDS: METOPROLOL TARTRATE 50 MG TAB PO ×2 (09:37→22:24)
[2024-07-06] MEDS: ENOXAPARIN 100 MG/ML SYRINGE 95 MG SUB-Q ×2 (09:38→22:24)
[2024-07-06] MEDS: FUROSEMIDE INJ 40 MG/4 ML VIAL IV PUSH (09:38)
[2024-07-06 10:30] LABS: Anion Gap 11 mmol/L (4-12); Blood Urea Nitrogen 19 mg/dL (7-17); Calcium 7.7 mg/dL (8.4-10.2); Carbon Dioxide 27 mmol/L (22-30); Chloride 105 mmol/L (98-107); Estimated CRCL calculation 35 ml/min; Estimated Glomerular Filt Rate 36; Glucose 93 mg/dL (65-110); Potassium 2.7 mmol/L (3.4-5.0); Sodium 143 mmol/L (137-145)
--- NOTE | 2024-07-06 11:39 | PCOTNOTE ---
Attempted OT Evaluation, per RN hold due to DVT and starting medication.
--- NOTE | 2024-07-06 12:10 | WPDNEUROLOGY ---
Neurology EEG Report General Information Date of Study: 07/04/24 TEST Eeg DIAGNOSIS seizures CONDITION OF RECORDING awake and drowsy EEG NUMBER [id number] CLINICAL HISTORY patient was brought to the hospital and was told that she had a seizure but patient herself does not remember what happened. EEG DESCRIPTION Background rhythm consists of low to medium voltage 6 to 7 hertz per 2nd theta activity admixed with intermittent 8 to 9 hertz per 2nd alpha activity posteriorly and admixed with multiple movements artifacts also with poor lucy posterior gradient. Bilateral symmetrical sleep activity is noted with mixture of beta theta and Alpha activity evolving into bilateral symmetrical sleep spindles and then 3 to 4 hertz per 2nd delta activity. Photic stimulation not done. Hyperventilation not done. Non paroxysmal. Nonfocal. Nonlateralizing. IMPRESSION Abnormal record due to the absence of a normal background rhythm and presence of excessive amount of theta activity. There is no evidence of paroxysmal activity during this particular tracing but that does not rule out the possibility of seizure disorder. Clinical correlation recommended.
--- NOTE | 2024-07-06 13:03 | PCPTNOTE ---
Attempted PT Evaluation, per RN hold due to DVT and starting medication. Will continue to follow.
--- NOTE | 2024-07-06 14:15 | P.PNIM_ITS ---
Progress Note: A&P Assessment and Plan (1) Seizure: Code(s): R56.9 - Unspecified convulsions Status: Acute Assessment and Plan: 07/03/24: * New onset * Continue workup as ordered with neuro checks, EEG, MRI, and neurology consult. * Telemetry * Start Keppra 500 mg BID. Consider up titration as needed. * Seizure precautions. * Benzodiazepine prn for any seizure activity. * CT head negative. 07/04/24 * MRI shows Acute infarct left frontoparietal lobe in deep white matter. * EEG Pending. * Pt being started on Atorvastatin 80 mg daily, and loaded with Plavix 150 mg and start 75 mg tomorrow. * Start baby ASA daily. 07/05/24: * Awaiting EEG. * Continue Keppra * Continue telemetry * Continue prn benzodiazepines * Continue meds of Plavix, ASA and Atorvastatin 07/06: continue keppra SP MRI neurology MD on board (2) Post-ictal confusion: Code(s): F05 - Delirium due to known physiological condition Status: Resolved Assessment and Plan: 07/03/24: * At baseline and A&Ox3. * Seizure precautions. 07/04/24: * Continue safety precautions 07/05/24: * Continue precautions and treatments as noted above. * Pt demonstrating transient confusion, but is very believable in what she is saying. Example: She told me that she lives at home alone prior to her event that led to this hospitalization, however, she is SNF at [facility]. 07/06: pleasantly confused not agitated today (3) CVA (cerebral vascular accident): Code(s): I63.9 - Cerebral infarction, unspecified Status: Acute Assessment and Plan: 07/04/24: * As evidenced by MRI showing acute infarct of the left frontoparietal lobe in the deep white matter. Also showing PRES and Diffuse Pachymeningeal enhancement. * Starting on Plavix, ASA and Atorvastatin. * Neurology is following. * LLE weakness 07/05/24: * Continue current treatments. * EEG pending * PT and OT ordered. 07/06 continue the same (4) Edema: Code(s): R60.9 - Edema, unspecified Status: Acute Assessment and Plan: 07/05/24: * RLE edema 2+ pitting, LLE edema trace * Lower suspicion of VTE, but given recent embolic event with CVA, Venous dopplers ordered. * Lovenox preventatively dosed initiated. * Continue Lasix and supplemental potassium dosing. 07/06 edema is better (5) Diverticulitis of intestine with perforation without abscess: Qualifiers: Diverticulitis site: large intestine Diverticulitis bleeding: without bleeding Qualified Code(s): K57.20 - Diverticulitis of large intestine with perforation and abscess without bleeding Code(s): K57.80 - Diverticulitis of intestine, part unspecified, with perforation and abscess without bleeding Status: Acute Assessment and Plan: 07/03/24: * Continue Levaquin, Fidaxomycin and Flagyl * Monitor daily labs and VS and trend. 07/04/24: * Levaquin now completed. * Continue Fidaxomycin and Flagyl 07/05/24: * Last dose of Flagyl will be today. * Continue Fidaxomycin through the . 07/06 ongoing diarrhea and electrolyte loss (6) Urinary retention: Code(s): R33.9 - Retention of urine, unspecified Status: Acute Assessment and Plan: 07/04/24: * Acute urinary retention requiring fitzpatrick yesterday. * Will attempt fitzpatrick removal tomorrow now that pt is not post-ictal. * Will do post void residuals and bladder scans tomorrow with voiding trial and if unable to void, will consult Urology. Pt may need urodynamic testing for potential neurogenic bladder since she has had a CVA. 07/05/24: * Voiding trial today. * Catheter removed and PVR's measured. * I was called by the RN at 1335 and told that she has 248 ml in bladder without sensation to void. Advised that if she did not urinate within the next hour, she will need the catheter replaced. Will go ahead and consult Urology. 07/06: continue catheter watch UO (7) Hypokalemia: Code(s): E87.6 - Hypokalemia Status: Acute Assessment and Plan: 07/04/24: * Potassium today is 2.9. * KCL 40 meq po and KCL 40 meq IVPB given. * Trend labs in AM. 07/05/24: * Potassium level today is 2.7 despite her receiving the K+ rider yesterday and the po dose. * Another 40 mEq po and 40 mEq IVPB are ordered. * Reassess level in AM. 07/06 Severe hypokalaemia watch bmp Q12 hours (8) C. difficile diarrhea: Code(s): A04.72 - Enterocolitis due to Clostridium difficile, not specified as recurrent Status: Acute Assessment and Plan: 07/03/24: * Pre-existing prior to coming into hospital. * Continue Fidaxomycin. * continue 07/06 (9) Hypothyroidism: Qualifiers: Hypothyroidism type: unspecified Qualified Code(s): E03.9 - Hypothyroidism, unspecified Code(s): E03.9 - Hypothyroidism, unspecified Status: Chronic Assessment and Plan: 07/03/24: * Continue home medications of Levothyroxine. * continue 07/06 (10) Hypertension: Qualifiers: Hypertension type: primary hypertension Qualified Code(s): I10 - Essential (primary) hypertension Code(s): I10 - Essential (primary) hypertension Status: Chronic Assessment and Plan: 07/03/24: * Stable. Continue metoprolol, Benicar and monitor. * stable today 07/06 Subjective Date/time seen: 07/06/24 14:15 Interval history: 73-year-old female with hypertension, chronic obstructive pulmonary disease, obstructive sleep apnea intolerant to CPAP, hypothyroidism, gout, anxiety, and Clostridium difficile diarrhea who presented to the emergency department via EMS from [facility] for evaluation of altered mental status. The patient is unable to provide history at this time due to her clinical condition of the following is obtained via a review of her EMR as well as information provided by her family members. She is known to the hospitalist service from a recent admission (06/18/2024 - 06/28/2024) at which time she presented with weakness and diarrhea. She was found to have diverticulitis with microperforation without abscess, E coli urinary tract infection, and C diff diarrhea. Overall she did well, was working with physical therapy, and was discharged to rehab. It is my understanding that she was in her usual state of health this morning ended about 11:30 she was found unresponsive and was only able to tell staff that she ?hurt all over.? At baseline she is alert and oriented x4 and there were no reports of fever or falls. In the ED she had a witnessed seizure for which she was given lorazepam 2 mg and levetiracetam 3000 mg loading dose. She is being admitted in this setting for close monitoring and further evaluation. She has no history of seizures. Pt admitted with seizures, delirium, CVA, diverticulitis urinary retention CDiff colitis and severe hypokalemia. Pt seen by neurology reviewed MRI, continuing keppra dosing MRI shows - Acute infarct in the left frontoparietal deep white matter. 2. 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 3. Diffuse pachymeningeal enhancement. This finding is most commonly secondary to prior lumbar puncture or spine procedure. Review of Systems Review of Systems: Pt appears weak tired severe diarrhea Exam Narrative: General: Ill-appearing female lying supine at this time in bed. HEENT: Normocephalic, atraumatic. PERRL, EOMI. Sclera anicteric. Neck: Supple. No midline vertebral tenderness. Respiratory: Respirations are nonlabored. She appears in no respiratory distress. Lung sounds are diminished due to poor effort. Cardiovascular: Regular rate and rhythm with S1-S2. BLE with 2+ Pitting edema. Gastrointestinal: Abdomen is soft, obese, nontender, and nondistended with positive bowel sounds. No guarding or rebound tenderness. Skin: Warm and dry. Scattered bruising on the upper extremities. Extremities: No cyanosis, clubbing. Radial and pedal pulses intact. 2+ RLE pitting edema present and trace LLE edema. Neurological: A&Ox3. She has weakness noted in the LLE. Psychiatric: Appropriate with normal affect. Objective Data Vital Signs Vital Signs: Vital Signs - 24 hr 07/05/24 16:00 07/05/24 16:00 07/05/24 19:38 Temperature 36.8 C 36.4 C L Pulse Rate 100 99 101 H Respiratory Rate 19 18 Blood Pressure 132/58 L 126/51 L Pulse Oximetry 98 99 Oxygen Delivery 07/05/24 20:00 07/05/24 21:11 07/05/24 21:15 Temperature Pulse Rate 107 H 103 H Respiratory Rate Blood Pressure Pulse Oximetry Oxygen Delivery Room Air 07/05/24 22:00 07/05/24 23:46 07/06/24 00:00 Temperature 37.0 C Pulse Rate 96 92 96 Respiratory Rate 18 Blood Pressure 146/65 H Pulse Oximetry 97 Oxygen Delivery 07/06/24 00:10 07/06/24 02:00 07/06/24 03:42 Temperature 37.0 C Pulse Rate 94 92 Respiratory Rate 18 Blood Pressure 138/57 L Pulse Oximetry 98 Oxygen Delivery Room Air 07/06/24 04:00 07/06/24 04:00 07/06/24 06:00 Temperature Pulse Rate 94 98 Respiratory Rate Blood Pressure Pulse Oximetry Oxygen Delivery Room Air 07/06/24 08:00 07/06/24 09:37 07/06/24 12:00 Temperature 36.3 C L 36.8 C Pulse Rate 102 H 111 H 92 Respiratory Rate 18 16 Blood Pressure 130/45 L 126/45 L Pulse Oximetry 99 97 Oxygen Delivery Intake/Output Intake/Output: Intake & Output 07/03/24 07/04/24 07/05/24 07/06/24 23:59 23:59 23:59 23:59 Intake Total 345 106 0327 600 Output Total 550 3400 850 975 Balance -76 -7050 220 -375 Meds/Results Medications: Active Medications Generic Name Dose Route Start Last Admin Trade Name Freq PRN Reason Stop Dose Admin Acetaminophen 650 mg 07/02/24 16:08 Acetaminophen 650 Mg Suppository RECTAL Q6H PRN Mild Pain (1-3) or Fever Alprazolam 1 mg 07/03/24 00:03 07/05/24 01:28 Alprazolam (*Crx) 0.5 Mg Tablet PO 1 mg QID PRN Administration anxiety Aspirin 81 mg 07/05/24 08:00 07/06/24 09:36 Aspirin 81 Mg Chewable Tablet PO 81 mg DAILY@0800 SOLITARIO Administration Atorvastatin Calcium 80 mg 07/04/24 21:00 07/06/24 09:37 Atorvastatin 40 Mg Tablet PO 80 mg DAILY SOLITARIO Administration Clopidogrel Bisulfate 75 mg 07/05/24 09:00 07/06/24 09:37 Clopidogrel Bisulfate 75 Mg Tablet PO 75 mg QAM SOLITARIO Administration Enoxaparin Sodium 95 mg 07/05/24 21:00 07/06/24 09:38 Enoxaparin 100 Mg/Ml Syringe SUB-Q 95 mg Q12HR SOLITARIO Administration Fidaxomicin 200 mg 07/03/24 09:00 07/06/24 09:37 Fidaxomicin 200 Mg Tablet PO 200 mg Q12HR SOLITARIO Administration Folic Acid 1 mg 07/03/24 09:00 07/06/24 09:35 Folic Acid 1 Mg Tablet PO 1 mg DAILY SOLITARIO Administration Furosemide 40 mg 07/03/24 17:00 07/06/24 09:38 Furosemide Inj 40 Mg/4 Ml Vial IV PUSH 40 mg BID SOLITARIO Administration Potassium Chloride 100 mls @ 25 mls/hr 07/06/24 14:00 Kcl 40 Meq/Water 100 Ml IVPB 07/06/24 17:59 ONCE ONE Levetiracetam 500 mg 07/03/24 12:30 07/06/24 09:36 Levetiracetam 500 Mg Tablet PO 500 mg Q12HR SOLITARIO Administration Levothyroxine Sodium 75 mcg 07/03/24 06:30 07/06/24 06:23 Levothyroxine Sodium 75 Mcg Tablet PO 75 mcg DAILY@0630 SOLITARIO Administration Lorazepam 1 mg 07/02/24 23:55 Lorazepam Inj (*Crx) 2 Mg/Ml Vial IV PUSH Q2H PRN Seizures Metoprolol Tartrate 50 mg 07/03/24 09:00 07/06/24 09:37 Metoprolol Tartrate 50 Mg Tab PO 50 mg Q12HR SOLITARIO Administration Montelukast Sodium 10 mg 07/03/24 00:15 07/05/24 21:12 Montelukast Sodium 10 Mg Tablet PO 10 mg HS SOLITARIO Administration Olmesartan 40 mg 07/03/24 09:00 07/06/24 09:35 Olmesartan Medoxomil 20 Mg Tablet PO 40 mg DAILY SOLITARIO Administration Perflutren Lipid Microsphere 0 ml 07/05/24 14:30 Perflutren Lipid Microspheres 1.5 Ml Vial Diluted To 10 Ml Total Volume IV PUSH 07/08/24 14:30 ONCE PRN adequate visualization Protocol Potassium Chloride 10 meq 07/03/24 08:00 07/06/24 09:36 Potassium Chloride 10 Meq Er Tablet PO 10 meq DAILY@0800 SOLITARIO Administration Sodium Chloride 20 ml 07/04/24 16:15 Central Line Flush IV PUSH PRN PRN after blood draws Sodium Chloride 10 ml 07/04/24 16:15 Central Line Flush IV PUSH PRN PRN with TPN bag changes Sodium Chloride 10 ml 07/04/24 22:00 07/06/24 06:24 Central Line Flush IV PUSH 10 ml Q8HR SOLITARIO Administration Radiology Results: ITS Impressions Chest X-Ray 07/02/24 13:16 IMPRESSION: 1. Small pleural effusions. 2. Airspace opacities at the lung bases, consistent with atelectasis or less likely pneumonia. Head CT 07/02/24 14:34 IMPRESSION: 1. Normal aging brain. Abdomen/Pelvis CT 07/02/24 14:36 IMPRESSION: 1. Persistent small collection of extra luminal gas in the left lower quadrant anterior abdominal wall immediately adjacent to a region of inflammatory stranding surrounding the descending colon consistent with diverticulitis. No abscess or more remote free intraperineal gas or fluid. 2. Persistent moderate-sized bilateral posterior layering pleural effusions with dependent compressive atelectasis in the visualized lower lobes. Brain MRI 07/04/24 11:30 IMPRESSION: 1. 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 2. 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 3. Diffuse pachymeningeal enhancement. This finding is most commonly secondary to prior lumbar puncture or spine procedure. ADDENDUM: 07/04/24 1216 The contrast volume was 20 mL MultiHance. Venous Doppler Study 07/05/24 14:17 IMPRESSION: 1. Extensive deep vein thrombosis in right lower limb. I called this result to Elsy Tao. Labs Labs: Laboratory Results - last 24 hr 07/06/24 07/06/24 06:29 10:02 WBC 9.2 RBC 2.77 L Hgb 8.7 L Hct 26.8 L MCV 96.8 MCH 31.4 MCHC 32.5 RDW 19.6 H Plt Count 192 MPV 10.1 Immature Gran % (Auto) 0.4 Neut % (Auto) 77.1 H Lymph % (Auto) 12.5 L [place] % (Auto) 9.3 H Eos % (Auto) 0.5 Baso % (Auto) 0.2 Lymph # (Auto) 1.15 [place] # (Auto) 0.9 H Eos # (Auto) 0.1 Baso # (Auto) 0.0 Abs Immat Gran (auto) 0.04 H Absolute Neuts (auto) 7.1 H Absolute Nucleated RBC 0.000 Nucleated RBC % 0.0 Sodium 142 143 Potassium 2.8 L* 2.7 L* Chloride 105 105 Carbon Dioxide 29 27 Anion Gap 8 11 BUN 18 H 19 H Creatinine 1.37 H 1.42 H Estim Creat Clear Calc 36 35 Estimated GFR 38 L 36 L Glucose 87 93 Calcium 7.6 L 7.7 L Magnesium 1.1 L Total Bilirubin 1.0 AST 18 ALT 17 Alkaline Phosphatase 71 Total Protein 5.0 L Albumin 2.8 L
[2024-07-06] MEDS: SODIUM CHLORIDE 0.9% IV 1,000 ML 70 ML IV CONT (14:55)
[2024-07-06] MEDS: KCL 40 MEQ/WATER 100 ML 100 ML 25 ML IVPB (14:55)
[2024-07-06] MEDS: MAGNESIUM OXIDE 400 MG TABLET PO (18:23)
[2024-07-06] MEDS: POTASSIUM CHLORIDE 20 MEQ ER TABLET 40 MEQ PO (18:23)
[2024-07-06] MEDS: CHOLESTYRAMINE (W/ SUGAR) 4 GM POWD.PACK PO (18:26)
[2024-07-06] MEDS: metroNIDAZOLE 500 MG TABLET PO (22:23)
[2024-07-06] MEDS: MONTELUKAST SODIUM 10 MG TABLET PO (22:24)
[2024-07-07] VITALS (17 sets, daily range): BP systolic 136–155; BP diastolic 54–83; PULSE 84–109; RESP 18–20; TEMP 36.4–37.1; O2SAT 97–99
[2024-07-07 00:30] LABS: Anion Gap 9 mmol/L (4-12); Blood Urea Nitrogen 19 mg/dL (7-17); Calcium 7.1 mg/dL (8.4-10.2); Carbon Dioxide 27 mmol/L (22-30); Chloride 106 mmol/L (98-107); Estimated CRCL calculation 35 ml/min; Estimated Glomerular Filt Rate 35; Glucose 93 mg/dL (65-110); Sodium 142 mmol/L (137-145)
[2024-07-07] MEDS: traMADol HCL (*CRX) 25 MG TABLET PO ×2 (00:31→18:03)
[2024-07-07 01:28] LABS: Potassium 2.7 mmol/L (3.4-5.0)
[2024-07-07 03:44] LABS: Magnesium 1.1 mg/dL (1.6-2.3)
[2024-07-07] MEDS: POTASSIUM CHLORIDE 20 MEQ ER TABLET 40 MEQ PO ×4 (03:51→18:03)
[2024-07-07] MEDS: KCL 40 MEQ/WATER 100 ML 100 ML 25 ML IVPB (03:52)
[2024-07-07] MEDS: SODIUM CHLORIDE 0.9% IV 1,000 ML 70 ML IV CONT ×2 (03:59→18:17)
[2024-07-07] MEDS: LEVOTHYROXINE SODIUM 75 MCG TABLET PO (05:22)
[2024-07-07] MEDS: metroNIDAZOLE 500 MG TABLET PO ×3 (05:22→23:23)
[2024-07-07] MEDS: MAGNESIUM SULF 4 GM/WATER100ML 4 GM/100 ML BAG IVPB (05:28)
[2024-07-07 05:43] LABS: Basophils Percent Auto 0.2 % (0.2-1.2); Eosinophils Absolute Auto 0.1 K/mm3 (0-0.3); Eosinophils Percent Auto 1.2 % (0-4.4); Hematocrit 24.3 % (37.0-47.0); Immature Granulocyte Absolute 0.03 K/mm3 (0.00-0.031); Immature Granulocyte Percent A 0.3 % (0-0.5); Lymphocytes Absolute Auto 1.32 K/mm3 (0.9-3.2); Lymphocytes Percent Auto 15.2 % (18.3-44.2); Mean Corpuscular HGB Conc 32.9 g/dl (32-36); Mean Corpuscular Hemoglobin 32.8 pg (26-34); Mean Corpuscular Volume 99.6 fl (80-100); Mean Platelet Volume 10.4 fl (7.4-10.4); Monocytes Absolute Auto 0.9 K/mm3 (0.1-0.6); Monocytes Percent Auto 10.2 % (2.6-8.5); Neutrophils Absolute Auto 6.3 K/mm3 (1.3-6.7); Neutrophils Percent Auto 72.9 % (45.5-73.1); Platelet Count Result 198 k/mm3 (150-375); Red Blood Count 2.44 M/mm3 (4.2-5.4); Red Cell Distribution Width 19.9 % (11.5-14.5); White Blood Count 8.7 K/mm3 (4.5-10.0)
[2024-07-07 05:52] LABS: Alanine Aminotransferase 15 U/L (6-35); Albumin Level 2.7 g/dL (3.5-5.1); Alkaline Phosphatase 70 U/L (38-126); Anion Gap 9 mmol/L (4-12); Aspartate Amino Transferase 18 U/L (14-36); Bilirubin,Total 0.7 mg/dL (0.2-1.3); Blood Urea Nitrogen 18 mg/dL (7-17); Calcium 7.2 mg/dL (8.4-10.2); Carbon Dioxide 26 mmol/L (22-30); Chloride 108 mmol/L (98-107); Estimated CRCL calculation 35 ml/min; Estimated Glomerular Filt Rate 36; Glucose 89 mg/dL (65-110); Magnesium 1.1 mg/dL (1.6-2.3); Potassium 3.2 mmol/L (3.4-5.0); Sodium 143 mmol/L (137-145)
[2024-07-07] MEDS: CENTRAL LINE FLUSH 10 ML IV PUSH ×3 (06:17→23:23)
--- NOTE | 2024-07-07 07:24 | PC.NURSE ---
Patient's O2 saturation rate started dropping around 0440, bipap alarmed and RN entered room and found the bipap had come apart. The patient was sitting tripod in the bed very short of breath and anxious. RN reconnected bipap, called RT to the room, and the FIO2 was increased to 100% to help patient recover. FIO2 was worked back down to original rate. Hospitalist was notified and RN/RT requested orders for PRN breathing treatments on top of the scheduled, patient received a PRN treatment. RN has continued to keep a close eye on patient.
[2024-07-07] MEDS: FOLIC ACID 1 MG TABLET PO (09:17)
[2024-07-07] MEDS: FIDAXOMICIN 200 MG TABLET PO ×2 (09:17→21:15)
[2024-07-07] MEDS: MAGNESIUM OXIDE 400 MG TABLET PO ×2 (09:17→18:03)
[2024-07-07] MEDS: CLOPIDOGREL BISULFATE 75 MG TABLET PO (09:17)
[2024-07-07] MEDS: ASPIRIN 81 MG CHEWABLE TABLET PO (09:17)
[2024-07-07] MEDS: OLMESARTAN MEDOXOMIL 20 MG TABLET 40 MG PO (09:17)
[2024-07-07] MEDS: levETIRAcetam 500 MG TABLET PO ×2 (09:17→21:15)
[2024-07-07] MEDS: METOPROLOL TARTRATE 50 MG TAB PO ×2 (09:17→21:18)
[2024-07-07] MEDS: ATORVASTATIN 40 MG TABLET 80 MG PO (09:17)
[2024-07-07] MEDS: CHOLESTYRAMINE (W/ SUGAR) 4 GM POWD.PACK PO (09:18)
[2024-07-07] MEDS: ENOXAPARIN 100 MG/ML SYRINGE 95 MG SUB-Q ×2 (09:18→21:15)
--- NOTE | 2024-07-07 09:56 | PCPTNOTE ---
Attempted to see for PT evaluation, per RN pt is nauseous, hold until afternoon. Will continue to follow.
--- NOTE | 2024-07-07 09:56 | PCOTNOTE ---
Attempted OT evaluation. Per RN patient is vomiting and nauseous, hold for now. Will follow.
--- NOTE | 2024-07-07 11:03 | P.PNIM_ITS ---
Progress Note: A&P Assessment and Plan (1) Seizure: Code(s): R56.9 - Unspecified convulsions Status: Acute Assessment and Plan: 07/03/24: * New onset * Continue workup as ordered with neuro checks, EEG, MRI, and neurology consult. * Telemetry * Start Keppra 500 mg BID. Consider up titration as needed. * Seizure precautions. * Benzodiazepine prn for any seizure activity. * CT head negative. 07/04/24 * MRI shows Acute infarct left frontoparietal lobe in deep white matter. * EEG Pending. * Pt being started on Atorvastatin 80 mg daily, and loaded with Plavix 150 mg and start 75 mg tomorrow. * Start baby ASA daily. 07/05/24: * Awaiting EEG. * Continue Keppra * Continue telemetry * Continue prn benzodiazepines * Continue meds of Plavix, ASA and Atorvastatin 07/06: continue keppra SP MRI neurology MD on board 07/07: continue present care Plavix, ASA and Atorvastatin, keppra,for stroke and seizures flagyl, fidaxomicin, questran for cdif watch electrolytes (2) Post-ictal confusion: Code(s): F05 - Delirium due to known physiological condition Status: Resolved Assessment and Plan: 07/03/24: * At baseline and A&Ox3. * Seizure precautions. 07/04/24: * Continue safety precautions 07/05/24: * Continue precautions and treatments as noted above. * Pt demonstrating transient confusion, but is very believable in what she is saying. Example: She told me that she lives at home alone prior to her event that led to this hospitalization, however, she is SNF at [facility]. 07/06: pleasantly confused not agitated today 07/07 : pleasantly confused (3) CVA (cerebral vascular accident): Code(s): I63.9 - Cerebral infarction, unspecified Status: Acute Assessment and Plan: 07/04/24: * As evidenced by MRI showing acute infarct of the left frontoparietal lobe in the deep white matter. Also showing PRES and Diffuse Pachymeningeal enhancement. * Starting on Plavix, ASA and Atorvastatin. * Neurology is following. * LLE weakness 07/05/24: * Continue current treatments. * EEG pending * PT and OT ordered. 07/06 continue the same 2/9continjue the same (4) Edema: Code(s): R60.9 - Edema, unspecified Status: Acute Assessment and Plan: 07/05/24: * RLE edema 2+ pitting, LLE edema trace * Lower suspicion of VTE, but given recent embolic event with CVA, Venous dopplers ordered. * Lovenox preventatively dosed initiated. * Continue Lasix and supplemental potassium dosing. 07/06 edema is better 07/07 no edema (5) Diverticulitis of intestine with perforation without abscess: Qualifiers: Diverticulitis site: large intestine Diverticulitis bleeding: without bleeding Qualified Code(s): K57.20 - Diverticulitis of large intestine with perforation and abscess without bleeding Code(s): K57.80 - Diverticulitis of intestine, part unspecified, with perforation and abscess without bleeding Status: Acute Assessment and Plan: 07/03/24: * Continue Levaquin, Fidaxomycin and Flagyl * Monitor daily labs and VS and trend. 07/04/24: * Levaquin now completed. * Continue Fidaxomycin and Flagyl 07/05/24: * Last dose of Flagyl will be today. * Continue Fidaxomycin through the . 07/06 ongoing diarrhea and electrolyte loss 07/07 much the same (6) Urinary retention: Code(s): R33.9 - Retention of urine, unspecified Status: Acute Assessment and Plan: 07/04/24: * Acute urinary retention requiring fitzpatrick yesterday. * Will attempt fitzpatrick removal tomorrow now that pt is not post-ictal. * Will do post void residuals and bladder scans tomorrow with voiding trial and if unable to void, will consult Urology. Pt may need urodynamic testing for potential neurogenic bladder since she has had a CVA. 07/05/24: * Voiding trial today. * Catheter removed and PVR's measured. * I was called by the RN at 1335 and told that she has 248 ml in bladder without sensation to void. Advised that if she did not urinate within the next hour, she will need the catheter replaced. Will go ahead and consult Urology. 07/06: continue catheter watch UO 07/07 UO is good pt is on ivf (7) Hypokalemia: Code(s): E87.6 - Hypokalemia Status: Acute Assessment and Plan: 07/04/24: * Potassium today is 2.9. * KCL 40 meq po and KCL 40 meq IVPB given. * Trend labs in AM. 07/05/24: * Potassium level today is 2.7 despite her receiving the K+ rider yesterday and the po dose. * Another 40 mEq po and 40 mEq IVPB are ordered. * Reassess level in AM. 07/06 Severe hypokalaemia watch bmp Q12 hours 07/07 watch electrolytes (8) C. difficile diarrhea: Code(s): A04.72 - Enterocolitis due to Clostridium difficile, not specified as recurrent Status: Acute Assessment and Plan: 07/03/24: * Pre-existing prior to coming into hospital. * Continue Fidaxomycin. * continue 07/06 (9) Hypothyroidism: Qualifiers: Hypothyroidism type: unspecified Qualified Code(s): E03.9 - Hypothyroidism, unspecified Code(s): E03.9 - Hypothyroidism, unspecified Status: Chronic Assessment and Plan: 07/03/24: * Continue home medications of Levothyroxine. * continue 07/06 (10) Hypertension: Qualifiers: Hypertension type: primary hypertension Qualified Code(s): I10 - Essential (primary) hypertension Code(s): I10 - Essential (primary) hypertension Status: Chronic Assessment and Plan: 07/03/24: * Stable. Continue metoprolol, Benicar and monitor. * stable today 07/06 Subjective Date/time seen: 07/07/24 11:03 Interval history: 73-year-old female with hypertension, chronic obstructive pulmonary disease, obstructive sleep apnea intolerant to CPAP, hypothyroidism, gout, anxiety, and Clostridium difficile diarrhea who presented to the emergency department via EMS from [facility] for evaluation of altered mental status. The patient is unable to provide history at this time due to her clinical condition of the following is obtained via a review of her EMR as well as information provided by her family members. She is known to the hospitalist service from a recent admission (06/18/2024 - 06/28/2024) at which time she presented with weakness and diarrhea. She was found to have diverticulitis with microperforation without abscess, E coli urinary tract infection, and C diff diarrhea. Overall she did well, was working with physical therapy, and was discharged to rehab. It is my understanding that she was in her usual state of health this morning ended about 11:30 she was found unresponsive and was only able to tell staff that she ?hurt all over.? At baseline she is alert and oriented x4 and there were no reports of fever or falls. In the ED she had a witnessed seizure for which she was given lorazepam 2 mg and levetiracetam 3000 mg loading dose. She is being admitted in this setting for close monitoring and further evaluation. She has no history of seizures. Pt admitted with seizures, delirium, CVA, diverticulitis urinary retention CDiff colitis and severe hypokalemia. fecal tube placed yesterday for watery stools. Pt seen by neurology reviewed MRI, acute infarct seen on MRI, continuing keppra dosing continue ASA Review of Systems Review of Systems: Pleasantly confused, ongoing diarrhea watery Exam Narrative: General: Ill-appearing female lying supine at this time in bed. HEENT: Normocephalic, atraumatic. PERRL, EOMI. Sclera anicteric. Neck: Supple. No midline vertebral tenderness. Respiratory: Respirations are nonlabored. She appears in no respiratory distress. Lung sounds are diminished due to poor effort. Cardiovascular: Regular rate and rhythm with S1-S2. BLE with 2+ Pitting edema. Gastrointestinal: Abdomen is soft, obese, nontender, and nondistended with positive bowel sounds. No guarding or rebound tenderness. Fecal tube in situ Skin: Warm and dry. Scattered bruising on the upper extremities. Extremities: No cyanosis, clubbing. Radial and pedal pulses intact. 2+ RLE pitting edema present and trace LLE edema. Neurological: A&Ox3. She has weakness noted in the LLE. Psychiatric: Appropriate with normal affect. Objective Data Vital Signs Vital Signs: Vital Signs - 24 hr 07/06/24 12:00 07/06/24 12:00 07/06/24 12:00 Temperature 36.8 C Pulse Rate 92 86 Respiratory Rate 16 Blood Pressure 126/45 L Pulse Oximetry 97 Oxygen Delivery Room Air 07/06/24 14:00 07/06/24 16:07/06/24 16:00 Temperature 36.7 C Pulse Rate 89 102 H 95 Respiratory Rate 16 Blood Pressure 128/59 L Pulse Oximetry 98 Oxygen Delivery 07/06/24 16:00 07/06/24 18:00 07/06/24 20:00 Temperature Pulse Rate 101 H 100 Respiratory Rate Blood Pressure Pulse Oximetry Oxygen Delivery Room Air 07/06/24 20:24 07/06/24 22:00 07/06/24 22:15 Temperature 37.1 C Pulse Rate 102 H 99 Respiratory Rate 20 Blood Pressure 110/58 L Pulse Oximetry 96 Oxygen Delivery Room Air 07/06/24 22:24 07/07/24 00:00 07/07/24 00:00 Temperature 37.0 C Pulse Rate 104 H 109 H 97 Respiratory Rate 20 Blood Pressure 146/54 H Pulse Oximetry 97 Oxygen Delivery 07/07/24 00:30 07/07/24 02:00 07/07/24 03:50 Temperature Pulse Rate 93 Respiratory Rate Blood Pressure Pulse Oximetry Oxygen Delivery Room Air Room Air 07/07/24 04:00 07/07/24 04:47 07/07/24 06:00 Temperature 37.1 C Pulse Rate 94 93 89 Respiratory Rate 20 Blood Pressure 139/62 Pulse Oximetry 98 Oxygen Delivery 07/07/24 08:27 Temperature 36.4 C Pulse Rate 95 Respiratory Rate 18 Blood Pressure 144/64 H Pulse Oximetry 98 Oxygen Delivery Intake/Output Intake/Output: Intake & Output 07/04/24 07/05/24 07/06/24 07/07/24 23:59 23:59 23:59 23:59 Intake Total 890 4663 415 9017.7 Output Total 3400 850 1425 400 Balance -2510 220 -585 914.7 Meds/Results Medications: Active Medications Generic Name Dose Route Start Last Admin Trade Name Freq PRN Reason Stop Dose Admin Acetaminophen 650 mg 07/02/24 16:08 Acetaminophen 650 Mg Suppository RECTAL Q6H PRN Mild Pain (1-3) or Fever Alprazolam 1 mg 07/03/24 00:03 07/05/24 01:28 Alprazolam (*Crx) 0.5 Mg Tablet PO 1 mg QID PRN Administration anxiety Aspirin 81 mg 07/05/24 08:00 07/07/24 09:17 Aspirin 81 Mg Chewable Tablet PO 81 mg DAILY@0800 SOLITARIO Administration Atorvastatin Calcium 80 mg 07/04/24 21:00 07/07/24 09:17 Atorvastatin 40 Mg Tablet PO 80 mg DAILY SOLITARIO Administration Cholestyramine Resin 4 gm 07/06/24 18:00 07/07/24 09:18 Cholestyramine (W/ Sugar) 4 Gm Powd.Pack PO 4 gm BID@1000,1800 SOLITARIO Administration Clopidogrel Bisulfate 75 mg 07/05/24 09:00 07/07/24 09:17 Clopidogrel Bisulfate 75 Mg Tablet PO 75 mg QAM SOLITARIO Administration Enoxaparin Sodium 95 mg 07/05/24 21:00 07/07/24 09:18 Enoxaparin 100 Mg/Ml Syringe SUB-Q 95 mg Q12HR SOLITARIO Administration Fidaxomicin 200 mg 07/03/24 09:00 07/07/24 09:17 Fidaxomicin 200 Mg Tablet PO 200 mg Q12HR SOLITARIO Administration Folic Acid 1 mg 07/03/24 09:00 07/07/24 09:17 Folic Acid 1 Mg Tablet PO 1 mg DAILY SOLITARIO Administration Sodium Chloride 1,000 mls @ 70 mls/hr 07/06/24 14:30 07/07/24 03:59 Normal Saline Iv IV CONT 70 mls/hr .[id number] SOLITARIO Administration Levetiracetam 500 mg 07/03/24 12:30 07/07/24 09:17 Levetiracetam 500 Mg Tablet PO 500 mg Q12HR SOLITARIO Administration Levothyroxine Sodium 75 mcg 07/03/24 06:30 07/07/24 05:22 Levothyroxine Sodium 75 Mcg Tablet PO 75 mcg DAILY@0630 SOLITARIO Administration Lorazepam 1 mg 07/02/24 23:55 Lorazepam Inj (*Crx) 2 Mg/Ml Vial IV PUSH Q2H PRN Seizures Magnesium Oxide 400 mg 07/06/24 17:00 07/07/24 09:17 Magnesium Oxide 400 Mg Tablet PO 400 mg BID SOLITARIO Administration Metoprolol Tartrate 50 mg 07/03/24 09:00 07/07/24 09:17 Metoprolol Tartrate 50 Mg Tab PO 50 mg Q12HR SOLITARIO Administration Metronidazole 500 mg 07/06/24 22:00 07/07/24 05:22 Metronidazole 500 Mg Tablet PO 500 mg Q8HR SOLITARIO Administration Montelukast Sodium 10 mg 07/03/24 00:15 07/06/24 22:24 Montelukast Sodium 10 Mg Tablet PO 10 mg HS SOLITARIO Administration Olmesartan 40 mg 07/03/24 09:00 07/07/24 09:17 Olmesartan Medoxomil 20 Mg Tablet PO 40 mg DAILY SOLITARIO Administration Perflutren Lipid Microsphere 0 ml 07/05/24 14:30 Perflutren Lipid Microspheres 1.5 Ml Vial Diluted To 10 Ml Total Volume IV PUSH 07/08/24 14:30 ONCE PRN adequate visualization Protocol Potassium Chloride 40 meq 07/06/24 17:00 07/07/24 09:17 Potassium Chloride 20 Meq Er Tablet PO 40 meq TID SOLITARIO Administration Sodium Chloride 20 ml 07/04/24 16:15 Central Line Flush IV PUSH PRN PRN after blood draws Sodium Chloride 10 ml 07/04/24 16:15 Central Line Flush IV PUSH PRN PRN with TPN bag changes Sodium Chloride 10 ml 07/04/24 22:00 07/07/24 06:17 Central Line Flush IV PUSH 10 ml Q8HR SOLITARIO Administration Tramadol HCl 25 mg 07/07/24 00:00 07/07/24 00:31 Tramadol Hcl (*Crx) 25 Mg Tablet PO 25 mg Q4H PRN Administration Pain Rated 4-6 Radiology Results: ITS Impressions Chest X-Ray 07/02/24 13:16 IMPRESSION: 1. Small pleural effusions. 2. Airspace opacities at the lung bases, consistent with atelectasis or less likely pneumonia. Head CT 07/02/24 14:34 IMPRESSION: 1. Normal aging brain. Abdomen/Pelvis CT 07/02/24 14:36 IMPRESSION: 1. Persistent small collection of extra luminal gas in the left lower quadrant anterior abdominal wall immediately adjacent to a region of inflammatory strandi ng surrounding the descending colon consistent with diverticulitis. No abscess or more remote free intraperineal gas or fluid. 2. Persistent moderate-sized bilateral posterior layering pleural effusions with dependent compressive atelectasis in the visualized lower lobes. Brain MRI 07/04/24 11:30 IMPRESSION: 1. 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 2. 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 3. Diffuse pachymeningeal enhancement. This finding is most commonly secondary to prior lumbar puncture or spine procedure. ADDENDUM: 07/04/24 1216 The contrast volume was 20 mL MultiHance. Venous Doppler Study 07/05/24 14:17 IMPRESSION: 1. Extensive deep vein thrombosis in right lower limb. I called this result to Elsy Tao. Labs Labs: Laboratory Results - last 24 hr 07/06/24 07/07/24 23:50 05:33 WBC 8.7 RBC 2.44 L Hgb 8.0 L Hct 24.3 L MCV 99.6 MCH 32.8 MCHC 32.9 RDW 19.9 H Plt Count 198 MPV 10.4 Immature Gran % (Auto) 0.3 Neut % (Auto) 72.9 Lymph % (Auto) 15.2 L Smyth % (Auto) 10.2 H Eos % (Auto) 1.2 Baso % (Auto) 0.2 Lymph # (Auto) 1.32 Smyth # (Auto) 0.9 H Eos # (Auto) 0.1 Baso # (Auto) 0.0 Abs Immat Gran (auto) 0.03 Absolute Neuts (auto) 6.3 Absolute Nucleated RBC 0.000 Nucleated RBC % 0.0 Sodium 142 143 Potassium 2.7 L* 3.2 L Chloride 106 108 H Carbon Dioxide 27 26 Anion Gap 9 9 BUN 19 H 18 H Creatinine 1.45 H 1.43 H Estim Creat Clear Calc 35 35 Estimated GFR 35 L 36 L Glucose 93 89 Calcium 7.1 L 7.2 L Magnesium 1.1 L 1.1 L Total Bilirubin 0.7 AST 18 ALT 15 Alkaline Phosphatase 70 Total Protein 5.0 L Albumin 2.7 L
[2024-07-07 18:34] LABS: Anion Gap 8 mmol/L (4-12); Blood Urea Nitrogen 17 mg/dL (7-17); Calcium 7.2 mg/dL (8.4-10.2); Carbon Dioxide 25 mmol/L (22-30); Chloride 110 mmol/L (98-107); Estimated CRCL calculation 41 ml/min; Estimated Glomerular Filt Rate 43; Glucose 107 mg/dL (65-110); Magnesium 2.1 mg/dL (1.6-2.3); Potassium 4.4 mmol/L (3.4-5.0); Sodium 143 mmol/L (137-145)
[2024-07-07] MEDS: MONTELUKAST SODIUM 10 MG TABLET PO (21:16)
[2024-07-07] MEDS: ALPRAZolam (*CRX) 0.5 MG TABLET 1 MG PO (21:23)
[2024-07-08] VITALS (20 sets, daily range): BP systolic 107–133; BP diastolic 50–68; PULSE 68–123; RESP 18–20; TEMP 36.3–37; O2SAT 91–100
[2024-07-08 06:27] LABS: Basophils Percent Auto 0.3 % (0.2-1.2); Eosinophils Absolute Auto 0.2 K/mm3 (0-0.3); Eosinophils Percent Auto 2.8 % (0-4.4); Hemoglobin 7.8 g/dL (12.0-15.0); Immature Granulocyte Absolute 0.03 K/mm3 (0.00-0.031); Immature Granulocyte Percent A 0.4 % (0-0.5); Lymphocytes Absolute Auto 1.42 K/mm3 (0.9-3.2); Lymphocytes Percent Auto 19.2 % (18.3-44.2); Mean Corpuscular HGB Conc 31.2 g/dl (32-36); Mean Corpuscular Volume 102.5 fl (80-100); Mean Platelet Volume 10.1 fl (7.4-10.4); Monocytes Absolute Auto 0.7 K/mm3 (0.1-0.6); Monocytes Percent Auto 9.3 % (2.6-8.5); Platelet Count Result 212 k/mm3 (150-375); Red Blood Count 2.44 M/mm3 (4.2-5.4); Red Cell Distribution Width 20.3 % (11.5-14.5); White Blood Count 7.4 K/mm3 (4.5-10.0)
[2024-07-08 06:42] LABS: Alanine Aminotransferase 14 U/L (6-35); Albumin Level 2.6 g/dL (3.5-5.1); Alkaline Phosphatase 74 U/L (38-126); Anion Gap 8 mmol/L (4-12); Aspartate Amino Transferase 17 U/L (14-36); Bilirubin,Total 0.6 mg/dL (0.2-1.3); Blood Urea Nitrogen 16 mg/dL (7-17); Calcium 7.1 mg/dL (8.4-10.2); Carbon Dioxide 22 mmol/L (22-30); Chloride 113 mmol/L (98-107); Estimated CRCL calculation 42 ml/min; Estimated Glomerular Filt Rate 45; Glucose 85 mg/dL (65-110); Magnesium 2.2 mg/dL (1.6-2.3); Potassium 4.1 mmol/L (3.4-5.0); Sodium 143 mmol/L (137-145)
[2024-07-08] MEDS: metroNIDAZOLE 500 MG TABLET PO ×3 (06:45→21:19)
[2024-07-08] MEDS: CENTRAL LINE FLUSH 10 ML IV PUSH ×3 (06:45→21:20)
[2024-07-08] MEDS: LEVOTHYROXINE SODIUM 75 MCG TABLET PO (06:45)
--- NOTE | 2024-07-08 08:04 | P.PNIM_ITS ---
Progress Note: A&P Assessment and Plan (1) Seizure: Code(s): R56.9 - Unspecified convulsions Status: Acute Assessment and Plan: 07/03/24: * New onset * Continue workup as ordered with neuro checks, EEG, MRI, and neurology consult. * Telemetry * Start Keppra 500 mg BID. Consider up titration as needed. * Seizure precautions. * Benzodiazepine prn for any seizure activity. * CT head negative. 07/04/24 * MRI shows Acute infarct left frontoparietal lobe in deep white matter. * EEG Pending. * Pt being started on Atorvastatin 80 mg daily, and loaded with Plavix 150 mg and start 75 mg tomorrow. * Start baby ASA daily. 07/05/24: * Awaiting EEG. * Continue Keppra * Continue telemetry * Continue prn benzodiazepines * Continue meds of Plavix, ASA and Atorvastatin 07/06: continue keppra SP MRI neurology MD on board 07/07: continue present care Plavix, ASA and Atorvastatin, keppra,for stroke and seizures flagyl, fidaxomicin, questran for cdif watch electrolytes 07/08: Keppra 500 bid, no further seizure activity noted. (2) Post-ictal confusion: Code(s): F05 - Delirium due to known physiological condition Status: Resolved Assessment and Plan: 07/03/24: * At baseline and A&Ox3. * Seizure precautions. 07/04/24: * Continue safety precautions 07/05/24: * Continue precautions and treatments as noted above. * Pt demonstrating transient confusion, but is very believable in what she is saying. Example: She told me that she lives at home alone prior to her event that led to this hospitalization, however, she is SNF at [facility]. 07/06: pleasantly confused not agitated today 07/07 : pleasantly confused 07/08: No agitation, stable mentation. (3) CVA (cerebral vascular accident): Code(s): I63.9 - Cerebral infarction, unspecified Status: Acute Assessment and Plan: 07/04/24: * As evidenced by MRI showing acute infarct of the left frontoparietal lobe in the deep white matter. Also showing PRES and Diffuse Pachymeningeal enhancement. * Starting on Plavix, ASA and Atorvastatin. * Neurology is following. * LLE weakness 07/05/24: * Continue current treatments. * EEG pending * PT and OT ordered. 07/06 continue the same ontinjue the same 07/08: Stable without acute deficits on examination. - Cont. secondary prevention asa/plavix/statin. - Appreciate neuro recs regarding antiplatelet therapy in the setting of full anticoagulation in this patient. (4) Edema: Code(s): R60.9 - Edema, unspecified Status: Acute Assessment and Plan: 07/05/24: * RLE edema 2+ pitting, LLE edema trace * Lower suspicion of VTE, but given recent embolic event with CVA, Venous dopplers ordered. * Lovenox preventatively dosed initiated. * Continue Lasix and supplemental potassium dosing. 07/06 edema is better 07/07 no edema 07/08: Noted RLE VTE. RLE with 2+ pitting edema, LLE trace only. - Change to eliquis 10mg bid x 7 days, then 5mg bid. (5) Diverticulitis of intestine with perforation without abscess: Qualifiers: Diverticulitis bleeding: without bleeding Diverticulitis site: large intestine Qualified Code(s): K57.20 - Diverticulitis of large intestine with perforation and abscess without bleeding Code(s): K57.80 - Diverticulitis of intestine, part unspecified, with perforation and abscess without bleeding Status: Acute Assessment and Plan: 07/03/24: * Continue Levaquin, Fidaxomycin and Flagyl * Monitor daily labs and VS and trend. 07/04/24: * Levaquin now completed. * Continue Fidaxomycin and Flagyl 07/05/24: * Last dose of Flagyl will be today. * Continue Fidaxomycin through the . 07/06 ongoing diarrhea and electrolyte loss 07/07 much the same 07/08: No abdominal pain. (6) Urinary retention: Code(s): R33.9 - Retention of urine, unspecified Status: Acute Assessment and Plan: 07/04/24: * Acute urinary retention requiring fitzpatrick yesterday. * Will attempt fitzpatrick removal tomorrow now that pt is not post-ictal. * Will do post void residuals and bladder scans tomorrow with voiding trial and if unable to void, will consult Urology. Pt may need urodynamic testing for potential neurogenic bladder since she has had a CVA. 07/05/24: * Voiding trial today. * Catheter removed and PVR's measured. * I was called by the RN at 1335 and told that she has 248 ml in bladder without sensation to void. Advised that if she did not urinate within the next hour, she will need the catheter replaced. Will go ahead and consult Urology. 07/06: continue catheter watch UO 07/07 UO is good pt is on ivf 07/08: Taking oral well, IVF were previously discontinued. Failed a voiding trial. - Urology consulted. Rec. keep catheter and repeat voiding trial in 1-2 weeks. - Cont. with fitzpatrick catheter. (7) Hypokalemia: Code(s): E87.6 - Hypokalemia Status: Acute Assessment and Plan: 07/04/24: * Potassium today is 2.9. * KCL 40 meq po and KCL 40 meq IVPB given. * Trend labs in AM. 07/05/24: * Potassium level today is 2.7 despite her receiving the K+ rider yesterday and the po dose. * Another 40 mEq po and 40 mEq IVPB are ordered. * Reassess level in AM. 07/06 Severe hypokalaemia watch bmp Q12 hours 07/07 watch electrolytes 07/08: K decreased to 4.1 despite 120meq replacement prior 24 hours. Ongoing diarrheal losses. - Continue 120meq daily replacement. - Repeat labs 24h, additionally check mg. (8) C. difficile diarrhea: Code(s): A04.72 - Enterocolitis due to Clostridium difficile, not specified as recurrent Status: Acute Assessment and Plan: 07/03/24: * Pre-existing prior to coming into hospital. * Continue Fidaxomycin. * continue 07/06 07/08: C. diff recurrence had discharged on fidaxomicin in May. Appears to have been expected to start a vancomycin course which is not currently ordered. Not showing significant improvement in output per nursing. - DC fidaxomicin. - Pulse taper vanc dose as follows: 125 mg orally 4 times daily for 10 to 14 days, then 125 mg orally twice daily for 7 days, then 125 mg orally once daily for 7 days, then 125 mg orally every 2 to 3 days for 2 to 8 weeks - Consider zinplava if available. (9) Hypothyroidism: Qualifiers: Hypothyroidism type: unspecified Qualified Code(s): E03.9 - Hypothyroidism, unspecified Code(s): E03.9 - Hypothyroidism, unspecified Status: Chronic Assessment and Plan: 07/03/24: * Continue home medications of Levothyroxine. * continue 07/06 07/08: Cont. home dosage. (10) Hypertension: Qualifiers: Hypertension type: primary hypertension Qualified Code(s): I10 - Essential (primary) hypertension Code(s): I10 - Essential (primary) hypertension Status: Chronic Assessment and Plan: 07/03/24: * Stable. Continue metoprolol, Benicar and monitor. * stable today 07/06 07/08: Stable (11) Anemia: Code(s): D64.9 - Anemia, unspecified Status: Acute Assessment and Plan: 07/08: Slight downtrend in hgb, currently on triple therapy with anticoag and dapt. Prior admission 06/25/24 1 unit prbc given. - Transfuse for hgb <7. - Cont. trending hgb. Recheck this afternoon, obtain t/s. Plan Elyssa Tom is a 73 year old female with recent CVA with seizure, RLE VTE, diverticulitis, and failed o/p treatment of C. diff (first recurrence). Today is day one of vancomycin pulse taper as failing repeat of fidaxomicin (large amount of leakage to flexiseal fecal containment, complicating accurate i/o). Stable VS and labwork with significant hypokalemia prior, a mild drop despite 120meq kcl on 07/07. Downtrending hgb will cont. to require monitoring. Close monitoring and continued telemetry today - although [place] [facility] [place]48 [place]. Time Spent With Patient Time with patient: 25 - 35 minutes Subjective Date/time seen: 07/08/24 08:04 Interval history: Melissa denies abdominal pain or shortness of breath. She states stool output has been high. Review of Systems Review of Systems: All systems reviewed & are unremarkable except as noted in HPI and below Exam Narrative: GENERAL APPEARANCE: Appears to be in no acute distress. HEAD: normocephalic atraumatic EYES: PERRL, EOMI. Vision grossly intact. ENT: Hearing grossly intact, no nasal discharge NECK: Neck supple, trachea midline. CARDIAC: Normal S1/S2. Rhythm is regular, slightly fast on exam. No murmurs, rubs, or gallops. No cyanosis or pallor. Extremities are warm and well perfused. LUNGS: Clear to auscultation without rales, rhonchi, wheezing or diminished breath sounds. Respirations even and unlabored. ABDOMEN: BS positive x 4 quadrants. Obese. Soft, nondistended, nontender. No guarding or rebound. MSK: No joint tenderness/swelling, fair strength in all extremities. PERIPHERAL VASCULAR: Peripheral pulses palpable. Normal perfusion, cap refill <2 seconds. RLE with 2-3+ edema. . NEURO: Follows commands. No focal deficits. SKIN: Catharine without lesions or eruptions. PSYCH: Stable, no paranoia or delusional thinking. Objective Data Vital Signs Vital Signs: Vital Signs - 24 hr 07/07/24 08:27 07/07/24 10:00 07/07/24 12:00 Temperature 97.6 F 97.5 F L Pulse Rate 95 105 H 84 Respiratory Rate 18 20 Blood Pressure 144/64 H 136/64 Pulse Oximetry 98 99 Oxygen Delivery 07/07/24 12:00 07/07/24 12:00 07/07/24 14:00 Temperature Pulse Rate 85 88 Respiratory Rate Blood Pressure Pulse Oximetry Oxygen Delivery Room Air 07/07/24 16:00 07/07/24 16:00 07/07/24 16:50 Temperature 98.3 F Pulse Rate 94 94 Respiratory Rate 20 Blood Pressure 155/83 H Pulse Oximetry 99 Oxygen Delivery Room Air 07/07/24 18:00 07/07/24 19:51 07/07/24 20:00 Temperature 97.8 F Pulse Rate 95 107 H 97 Respiratory Rate 18 18 Blood Pressure 150/60 H Pulse Oximetry 99 99 Oxygen Delivery Room Air 07/07/24 20:00 07/07/24 21:18 07/07/24 21:57 Temperature Pulse Rate 97 99 92 Respiratory Rate Blood Pressure Pulse Oximetry Oxygen Delivery 07/08/24 00:00 07/08/24 00:00 07/08/24 00:00 Temperature 98.0 F Pulse Rate 97 80 97 Respiratory Rate 18 18 Blood Pressure 124/66 Pulse Oximetry 100 100 Oxygen Delivery Room Air 07/08/24 04:00 07/08/24 04:00 07/08/24 04:00 Temperature 97.7 F Pulse Rate 90 88 89 Respiratory Rate 18 18 Blood Pressure 117/61 Pulse Oximetry 100 95 Oxygen Delivery Room Air 07/08/24 06:00 07/08/24 07:36 Temperature 97.9 F Pulse Rate 82 80 Respiratory Rate 18 Blood Pressure 133/50 L Pulse Oximetry 100 Oxygen Delivery Intake/Output Intake/Output: Intake & Output 07/05/24 07/06/24 07/07/24 07/08/24 23:59 23:59 23:59 23:59 Intake Total 6691 822 0032.7 240 Output Total 850 1425 1075 1150 Balance 220 -585 1439.7 -910 Meds/Results Medications: Active Medications Generic Name Dose Route Start Last Admin Trade Name Freq PRN Reason Stop Dose Admin Acetaminophen 650 mg 07/02/24 16:08 Acetaminophen 650 Mg Suppository RECTAL Q6H PRN Mild Pain (1-3) or Fever Alprazolam 1 mg 07/03/24 00:03 07/07/24 21:23 Alprazolam (*Crx) 0.5 Mg Tablet PO 1 mg QID PRN Administration anxiety Aspirin 81 mg 07/05/24 08:00 07/07/24 09:17 Aspirin 81 Mg Chewable Tablet PO 81 mg DAILY@0800 SOLITARIO Administration Atorvastatin Calcium 80 mg 07/04/24 21:00 07/07/24 09:17 Atorvastatin 40 Mg Tablet PO 80 mg DAILY SOLITARIO Administration Cholestyramine Resin 4 gm 07/06/24 18:00 07/07/24 18:05 Cholestyramine (W/ Sugar) 4 Gm Powd.Pack PO Not Given BID@1000,1800 [facility] Clopidogrel Bisulfate 75 mg 07/05/24 09:00 07/07/24 09:17 Clopidogrel Bisulfate 75 Mg Tablet PO 75 mg QAM [facility] Administration Enoxaparin Sodium 95 mg 07/05/24 21:00 07/07/24 21:15 Enoxaparin 100 Mg/Ml Syringe SUB-Q 95 mg Q12HR SOLITARIO Administration Fidaxomicin 200 mg 07/03/24 09:00 07/07/24 21:15 Fidaxomicin 200 Mg Tablet PO 200 mg Q12HR SOLITARIO Administration Folic Acid 1 mg 07/03/24 09:00 07/07/24 09:17 Folic Acid 1 Mg Tablet PO 1 mg DAILY SOLITARIO Administration Sodium Chloride 1,000 mls @ 70 mls/hr 07/06/24 14:30 07/07/24 18:17 Normal Saline Iv IV CONT 70 mls/hr .[id number] SOLITARIO Administration Levetiracetam 500 mg 07/03/24 12:30 07/07/24 21:15 Levetiracetam 500 Mg Tablet PO 500 mg Q12HR SOLITARIO Administration Levothyroxine Sodium 75 mcg 07/03/24 06:30 07/08/24 06:45 Levothyroxine Sodium 75 Mcg Tablet PO 75 mcg DAILY@0630 SOLITARIO Administration Lorazepam 1 mg 07/02/24 23:55 Lorazepam Inj (*Crx) 2 Mg/Ml Vial IV PUSH Q2H PRN Seizures Magnesium Oxide 400 mg 07/06/24 17:00 07/07/24 18:03 Magnesium Oxide 400 Mg Tablet PO 400 mg BID SOLITARIO Administration Metoprolol Tartrate 50 mg 07/03/24 09:00 07/07/24 21:18 Metoprolol Tartrate 50 Mg Tab PO 50 mg Q12HR SOLITARIO Administration Metronidazole 500 mg 07/06/24 22:00 07/08/24 06:45 Metronidazole 500 Mg Tablet PO 500 mg Q8HR SOLITARIO Administration Montelukast Sodium 10 mg 07/03/24 00:15 07/07/24 21:16 Montelukast Sodium 10 Mg Tablet PO 10 mg HS SOLITARIO Administration Olmesartan 40 mg 07/03/24 09:00 07/07/24 09:17 Olmesartan Medoxomil 20 Mg Tablet PO 40 mg DAILY SOLITARIO Administration Perflutren Lipid Microsphere 0 ml 07/05/24 14:30 Perflutren Lipid Microspheres 1.5 Ml Vial Diluted To 10 Ml Total Volume IV PUSH 07/08/24 14:30 ONCE PRN adequate visualization Protocol Potassium Chloride 40 meq 07/06/24 17:00 07/07/24 18:03 Potassium Chloride 20 Meq Er Tablet PO 40 meq TID SOLITARIO Administration Sodium Chloride 20 ml 07/04/24 16:15 Central Line Flush IV PUSH PRN PRN after blood draws Sodium Chloride 10 ml 07/04/24 16:15 Central Line Flush IV PUSH PRN PRN with TPN bag changes Sodium Chloride 10 ml 07/04/24 22:00 07/08/24 06:45 Central Line Flush IV PUSH 10 ml Q8HR SOLITARIO Administration Tramadol HCl 25 mg 07/07/24 00:00 07/07/24 18:03 Tramadol Hcl (*Crx) 25 Mg Tablet PO 25 mg Q4H PRN Administration Pain Rated 4-6 Radiology Results: ITS Impressions Chest X-Ray 07/02/24 13:16 IMPRESSION: 1. Small pleural effusions. 2. Airspace opacities at the lung bases, consistent with atelectasis or less likely pneumonia. Head CT 07/02/24 14:34 IMPRESSION: 1. Normal aging brain. Abdomen/Pelvis CT 07/02/24 14:36 IMPRESSION: 1. Persistent small collection of extra luminal gas in the left lower quadrant anterior abdominal wall immediately adjacent to a region of inflammatory stranding surrounding the descending colon consistent with diverticulitis. No abscess or more remote free intraperineal gas or fluid. 2. Persistent moderate-sized bilateral posterior layering pleural effusions with dependent compressive atelectasis in the visualized lower lobes. Brain MRI 07/04/24 11:30 IMPRESSION: 1. 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 2. 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 3. Diffuse pachymeningeal enhancement. This finding is most commonly secondary to prior lumbar puncture or spine procedure. ADDENDUM: 07/04/24 1216 The contrast volume was 20 mL MultiHance. Venous Doppler Study 07/05/24 14:17 IMPRESSION: 1. Extensive deep vein thrombosis in right lower limb. I called this result to Elsy Tao. Labs Labs: Laboratory Results - last 24 hr 07/07/24 07/08/24 18:15 06:17 WBC 7.4 RBC 2.44 L Hgb 7.8 L Hct 25.0 L MCV 102.5 H MCH 32.0 MCHC 31.2 L RDW 20.3 H Plt Count 212 MPV 10.1 Immature Gran % (Auto) 0.4 Neut % (Auto) 68.0 Lymph % (Auto) 19.2 [place] % (Auto) 9.3 H Eos % (Auto) 2.8 Baso % (Auto) 0.3 Lymph # (Auto) 1.42 [place] # (Auto) 0.7 H Eos # (Auto) 0.2 Baso # (Auto) 0.0 Abs Immat Gran (auto) 0.03 Absolute Neuts (auto) 5.0 Absolute Nucleated RBC 0.000 Nucleated RBC % 0.0 Sodium 143 143 Potassium 4.4 4.1 Chloride 110 H 113 H Carbon Dioxide 25 22 Anion Gap 8 8 BUN 17 16 Creatinine 1.22 H 1.17 H Estim Creat Clear Calc 41 42 Estimated GFR 43 L 45 L Glucose 107 85 Calcium 7.2 L 7.1 L Magnesium 2.1 2.2 Total Bilirubin 0.6 AST 17 ALT 14 Alkaline Phosphatase 74 Total Protein 5.0 L Albumin 2.6 L Quality VTE Prophylaxis VTE prophylaxis: pharmacologic ordered Hospitalist [facility] Advance Care Plan I have confirmed that the patient's Advanced Care Plan is present, code status is documented, or surrogate decision maker is listed in patient medical record.: Yes Medication Reconciliation I have utilized all available resources to obtain, update and review the patients current medications (includes all prescriptions, OTC, herbals, cannabis, and nutritional supplements).: Yes
[2024-07-08] MEDS: OLMESARTAN MEDOXOMIL 20 MG TABLET 40 MG PO (09:35)
[2024-07-08] MEDS: CHOLESTYRAMINE (W/ SUGAR) 4 GM POWD.PACK PO (09:35)
[2024-07-08] MEDS: POTASSIUM CHLORIDE 20 MEQ ER TABLET 40 MEQ PO ×3 (09:35→17:40)
[2024-07-08] MEDS: ATORVASTATIN 40 MG TABLET 80 MG PO (09:35)
[2024-07-08] MEDS: ENOXAPARIN 100 MG/ML SYRINGE 95 MG SUB-Q ×2 (09:35→21:18)
[2024-07-08] MEDS: MAGNESIUM OXIDE 400 MG TABLET PO ×2 (09:36→17:40)
[2024-07-08] MEDS: CLOPIDOGREL BISULFATE 75 MG TABLET PO (09:36)
[2024-07-08] MEDS: METOPROLOL TARTRATE 50 MG TAB PO ×2 (09:36→21:19)
[2024-07-08] MEDS: FOLIC ACID 1 MG TABLET PO (09:36)
[2024-07-08] MEDS: FIDAXOMICIN 200 MG TABLET PO (09:36)
[2024-07-08] MEDS: ASPIRIN 81 MG CHEWABLE TABLET PO (09:36)
[2024-07-08] MEDS: levETIRAcetam 500 MG TABLET PO ×2 (09:36→21:19)
[2024-07-08] MEDS: SODIUM CHLORIDE 0.9% IV 1,000 ML 70 ML IV CONT (09:37)
[2024-07-08] MEDS: traMADol HCL (*CRX) 25 MG TABLET PO ×2 (12:50→17:40)
[2024-07-08] MEDS: SODIUM CHLORIDE 0.9% IV 500 ML 100 ML IV CONT (12:50)
[2024-07-08] MEDS: VANCOMYCIN HCL 125 MG ORAL CAPSULE PO ×2 (12:50→17:40)
[2024-07-08 15:59] LABS: Hematocrit 25.2 % (37.0-47.0); Hemoglobin 7.9 g/dL (12.0-15.0)
[2024-07-08] MEDS: MONTELUKAST SODIUM 10 MG TABLET PO (21:19)
[2024-07-09] VITALS (20 sets, daily range): BP systolic 124–149; BP diastolic 50–77; PULSE 79–120; RESP 20–22; TEMP 36.5–37.1; O2SAT 91–100
[2024-07-09] MEDS: VANCOMYCIN HCL 125 MG ORAL CAPSULE PO ×5 (00:34→21:04)
[2024-07-09] MEDS: SODIUM CHLORIDE 0.9% IV 1,000 ML 70 ML IV CONT (05:37)
[2024-07-09] MEDS: metroNIDAZOLE 500 MG TABLET PO ×3 (05:38→21:04)
[2024-07-09] MEDS: CENTRAL LINE FLUSH 10 ML IV PUSH ×3 (05:38→22:15)
[2024-07-09 06:08] LABS: Basophils Percent Auto 0.2 % (0.2-1.2); Eosinophils Percent Auto 0.5 % (0-4.4); Hematocrit 24.6 % (37.0-47.0); Hemoglobin 7.5 g/dL (12.0-15.0); Immature Granulocyte Absolute 0.07 K/mm3 (0.00-0.031); Immature Granulocyte Percent A 1.3 % (0-0.5); Lymphocytes Absolute Auto 0.38 K/mm3 (0.9-3.2); Lymphocytes Percent Auto 6.9 % (18.3-44.2); Mean Corpuscular HGB Conc 30.5 g/dl (32-36); Mean Corpuscular Hemoglobin 31.3 pg (26-34); Mean Corpuscular Volume 102.5 fl (80-100); Mean Platelet Volume 9.6 fl (7.4-10.4); Monocytes Absolute Auto 0.5 K/mm3 (0.1-0.6); Monocytes Percent Auto 8.9 % (2.6-8.5); Neutrophils Absolute Auto 4.5 K/mm3 (1.3-6.7); Neutrophils Percent Auto 82.2 % (45.5-73.1); Platelet Count Result 221 k/mm3 (150-375); Red Cell Distribution Width 20.9 % (11.5-14.5); White Blood Count 5.5 K/mm3 (4.5-10.0)
[2024-07-09 06:26] LABS: Alanine Aminotransferase 15 U/L (6-35); Albumin Level 2.6 g/dL (3.5-5.1); Alkaline Phosphatase 86 U/L (38-126); Anion Gap 9 mmol/L (4-12); Aspartate Amino Transferase 32 U/L (14-36); Bilirubin,Total 0.6 mg/dL (0.2-1.3); Blood Urea Nitrogen 15 mg/dL (7-17); Calcium 7.2 mg/dL (8.4-10.2); Carbon Dioxide 19 mmol/L (22-30); Chloride 117 mmol/L (98-107); Estimated CRCL calculation 43 ml/min; Estimated Glomerular Filt Rate 45; Glucose 95 mg/dL (65-110); Magnesium 2.2 mg/dL (1.6-2.3); Phosphorus 1.7 mg/dL (2.5-4.5); Potassium 4.9 mmol/L (3.4-5.0); Sodium 145 mmol/L (137-145)
[2024-07-09 06:42] LABS: Procalcitonin 0.3 ng/mL
[2024-07-09] MEDS: LEVOTHYROXINE SODIUM 75 MCG TABLET PO (07:30)
[2024-07-09] MEDS: HEPARIN SOD/D5W 100 UNITS/ML 25,000 UNITS/250 ML BAG 13 UNITS IV CONT (09:01)
[2024-07-09] MEDS: ASPIRIN 81 MG CHEWABLE TABLET PO (09:07)
[2024-07-09] MEDS: levETIRAcetam 500 MG TABLET PO ×2 (09:07→21:03)
[2024-07-09] MEDS: OLMESARTAN MEDOXOMIL 20 MG TABLET 40 MG PO (09:07)
[2024-07-09] MEDS: POTASSIUM CHLORIDE 20 MEQ ER TABLET 40 MEQ PO (09:07)
[2024-07-09] MEDS: ATORVASTATIN 40 MG TABLET 80 MG PO (09:08)
[2024-07-09] MEDS: CLOPIDOGREL BISULFATE 75 MG TABLET PO (09:08)
[2024-07-09] MEDS: MAGNESIUM OXIDE 400 MG TABLET PO ×2 (09:08→17:03)
[2024-07-09] MEDS: FOLIC ACID 1 MG TABLET PO (09:08)
[2024-07-09] MEDS: METOPROLOL TARTRATE 50 MG TAB PO ×2 (09:08→21:04)
[2024-07-09 09:37] LABS: Basophils Percent Auto 0.2 % (0.2-1.2); Eosinophils Percent Auto 0.4 % (0-4.4); Hematocrit 26.3 % (37.0-47.0); Hemoglobin 8.1 g/dL (12.0-15.0); Immature Granulocyte Absolute 0.08 K/mm3 (0.00-0.031); Immature Granulocyte Percent A 1.6 % (0-0.5); Mean Corpuscular HGB Conc 30.8 g/dl (32-36); Mean Corpuscular Hemoglobin 31.9 pg (26-34); Mean Corpuscular Volume 103.5 fl (80-100); Mean Platelet Volume 10.5 fl (7.4-10.4); Monocytes Absolute Auto 0.5 K/mm3 (0.1-0.6); Monocytes Percent Auto 9.8 % (2.6-8.5); Neutrophils Absolute Auto 4.1 K/mm3 (1.3-6.7); Platelet Count Result 235 k/mm3 (150-375); Red Blood Count 2.54 M/mm3 (4.2-5.4); Red Cell Distribution Width 20.9 % (11.5-14.5)
[2024-07-09 09:47] LABS: INR 1.3
[2024-07-09 09:50] LABS: Partial Thromboplastin Time 39.1 Seconds (22.3-36.8)
--- NOTE | 2024-07-09 10:42 | P.PNIM_ITS ---
Progress Note: A&P Assessment and Plan (1) Seizure: Code(s): R56.9 - Unspecified convulsions Status: Acute Assessment and Plan: 07/03/24: * New onset * Continue workup as ordered with neuro checks, EEG, MRI, and neurology consult. * Telemetry * Started Keppra 500 mg BID. Consider up titration as needed. * Seizure precautions. * Benzodiazepine prn for any seizure activity. * CT head negative. 07/04/24 * MRI shows Acute infarct left frontoparietal lobe in deep white matter. * EEG Pending. * Pt being started on Atorvastatin 80 mg daily, and loaded with Plavix 150 mg and start 75 mg tomorrow. * Start baby ASA daily. 07/05/24: * Awaiting EEG. * Continue Keppra * Continue telemetry * Continue prn benzodiazepines * Continue meds of Plavix, ASA and Atorvastatin 07/06: continue keppra SP MRI neurology MD on board 07/07: continue present care Plavix, ASA and Atorvastatin, keppra,for stroke and seizures flagyl, fidaxomicin, questran for cdif watch electrolytes 07/08-07/09: Keppra 500 bid, no further seizure activity noted. (2) Post-ictal confusion: Code(s): F05 - Delirium due to known physiological condition Status: Resolved Assessment and Plan: 07/03/24: * At baseline and A&Ox3. * Seizure precautions. 07/04/24: * Continue safety precautions 07/05/24: * Continue precautions and treatments as noted above. * Pt demonstrating transient confusion, but is very believable in what she is saying. Example: She told me that she lives at home alone prior to her event that led to this hospitalization, however, she is SNF at [facility]. 07/06: pleasantly confused not agitated today 07/07 : pleasantly confused 07/08-07/09: No agitation, stable mentation. (3) Acute DVT (deep venous thrombosis): Code(s): I82.409 - Acute embolism and thrombosis of unspecified deep veins of unspecified lower extremity Status: Acute (4) Edema: Code(s): R60.9 - Edema, unspecified Status: Acute Assessment and Plan: Patient with extensive DVT to RLE 07/05/24: * RLE edema 2+ pitting, LLE edema trace * Lower suspicion of VTE, but given recent embolic event with CVA, Venous dopplers ordered. * Lovenox preventatively dosed initiated. * Continue Lasix and supplemental potassium dosing. 07/06 edema is better 07/07 no edema 07/08: Noted RLE VTE. RLE with 2+ pitting edema, LLE trace only. - Change to eliquis 10mg bid x 7 days, then 5mg bid. 07/09 Changed Lovenox to heparin drip (5) CVA (cerebral vascular accident): Code(s): I63.9 - Cerebral infarction, unspecified Status: Acute Assessment and Plan: Acute stroke 07/04/24: * As evidenced by MRI showing acute infarct of the left frontoparietal lobe in the deep white matter. Also showing PRES and Diffuse Pachymeningeal enhancement. * Starting on Plavix, ASA and Atorvastatin. * Neurology is following. * LLE weakness 07/05/24: * Continue current treatments. * EEG pending * PT and OT ordered. 07/06 continue the same ontinjue the same 07/08: Stable without acute deficits on examination. - Cont. secondary prevention asa/plavix/statin. - Appreciate neuro recs, discuss antiplatelet therapy in the setting of full anticoagulation in this patient. 07/09 GI consult for anemia since on ASA/Plavix, and apixaban (6) Diverticulitis of intestine with perforation without abscess: Qualifiers: Diverticulitis bleeding: without bleeding Diverticulitis site: large intestine Qualified Code(s): K57.20 - Diverticulitis of large intestine with perforation and abscess without bleeding Code(s): K57.80 - Diverticulitis of intestine, part unspecified, with perforation and abscess without bleeding Status: Acute Assessment and Plan: 07/03/24: * Continue Levaquin, Fidaxomycin and Flagyl * Monitor daily labs and VS and trend. 07/04/24: * Levaquin now completed. * Continue Fidaxomycin and Flagyl 07/05/24: * Last dose of Flagyl will be today. * Continue Fidaxomycin through the . 07/06 ongoing diarrhea and electrolyte loss 07/07 much the same 07/08: No abdominal pain. (7) Urinary retention: Code(s): R33.9 - Retention of urine, unspecified Status: Acute Assessment and Plan: 07/04/24: * Acute urinary retention requiring fitzpatrick yesterday. * Will attempt fitzpatrick removal tomorrow now that pt is not post-ictal. * Will do post void residuals and bladder scans tomorrow with voiding trial and if unable to void, will consult Urology. Pt may need urodynamic testing for potential neurogenic bladder since she has had a CVA. 07/05/24: * Voiding trial today. * Catheter removed and PVR's measured. * I was called by the RN at 1335 and told that she has 248 ml in bladder without sensation to void. Advised that if she did not urinate within the next hour, she will need the catheter replaced. Will go ahead and consult Urology. 07/06: continue catheter watch UO 07/07 UO is good pt is on ivf 07/08: Taking oral well, IVF were previously discontinued. Failed a voiding trial. - Urology consulted. Rec. keep catheter and repeat voiding trial in 1-2 weeks. - Cont. with fitzpatrick catheter. (8) Hypokalemia: Code(s): E87.6 - Hypokalemia Status: Acute Assessment and Plan: 07/04/24: * Potassium today is 2.9. * KCL 40 meq po and KCL 40 meq IVPB given. * Trend labs in AM. 07/05/24: * Potassium level today is 2.7 despite her receiving the K+ rider yesterday and the po dose. * Another 40 mEq po and 40 mEq IVPB are ordered. * Reassess level in AM. 07/06 Severe hypokalaemia watch bmp Q12 hours 07/07 watch electrolytes 07/08: K decreased to 4.1 despite 120meq replacement prior 24 hours. Ongoing diarrheal losses. - Continue 120meq daily replacement. - Repeat labs 24h, additionally check mg. 07/09 Potassium level trending up, stop potassium (9) C. difficile diarrhea: Code(s): A04.72 - Enterocolitis due to Clostridium difficile, not specified as recurrent Status: Acute Assessment and Plan: 07/03/24: * Pre-existing prior to coming into hospital. * Continue Fidaxomycin. * continue 07/06 07/08: C. diff recurrence had discharged on fidaxomicin in May. Appears to have been expected to start a vancomycin course which is not currently ordered. Not showing significant improvement in output per nursing. - DC fidaxomicin. - Pulse taper vanc dose as follows: 125 mg orally 4 times daily for 10 to 14 days, then 125 mg orally twice daily for 7 days, then 125 mg orally once daily for 7 days, then 125 mg orally every 2 to 3 days for 2 to 8 weeks - Consider zinplava if available. (10) Hypothyroidism: Qualifiers: Hypothyroidism type: unspecified Qualified Code(s): E03.9 - Hypothyroidism, unspecified Code(s): E03.9 - Hypothyroidism, unspecified Status: Chronic Assessment and Plan: 07/03/24: * Continue home medications of Levothyroxine. * continue 07/06 07/08: Cont. home dosage. (11) Hypertension: Qualifiers: Hypertension type: primary hypertension Qualified Code(s): I10 - Essential (primary) hypertension Code(s): I10 - Essential (primary) hypertension Status: Chronic Assessment and Plan: 07/03/24: * Stable. Continue metoprolol, Benicar and monitor. * stable today 07/06 07/08: Stable, continue same meds (12) Anemia: Code(s): D64.9 - Anemia, unspecified Status: Acute Assessment and Plan: 07/08: Slight downtrend in hgb, currently on triple therapy with anticoag and dapt. Prior admission 06/25/24 1 unit prbc given. Patient reports nausea, no vomiting. Stools dark brown but not black - Transfuse for hgb <7. - GI consult - Check iron panel, ferritin, B12 --Start IV PPI (13) Sinus tachycardia: Code(s): R00.0 - Tachycardia, unspecified Status: Acute Assessment and Plan: Currently on NS @75/hr but more tachycardic. --NS Bolus 500ml then stop fluids --Could be 2/2 PE but already treating with a heparin drip and no evidence of right heart strain on recent echo. Also denies chest pain and shortness of breath so avoiding contrast with CKD Plan Elyssa Tom is a 73 year old female with recent CVA with seizure, Extensive acute DVT to RLE, diverticulitis, and failed o/p treatment of C. diff (first recurrence). completing a vancomycin pulse taper as failing repeat of fidaxomicin (large amount of leakage to flexiseal fecal containment, complicating accurate i/o). Blood count overall trending down since admission on ASA, plavix. Changed lovenox to a heparin drip given anemia. Stool dark brown. Consult GI More tachycardic than prior days, sinus tach, 110-130's Close monitoring and continued telemetry today - Could potentially transfer out of IMU Time Spent With Patient Time: 59 minutes Subjective Date/time seen: 07/09/24 10:42 Interval history: Dysarthria and difficulty reading, weakness new since stroke Still with watery stools Tachycardic this morning, ST, up to the 130's. Stools liquid/dark brown, still has a rectal tube Blood count trending down, 07/02 10.2>7.4-8.1 today Review of Systems Review of Systems: All systems reviewed & are unremarkable except as noted in HPI and below Exam Narrative: GENERAL APPEARANCE: Appears to be in no acute distress. HEAD: normocephalic atraumatic EYES: PERRL, EOMI. Vision grossly intact. ENT: Hearing grossly intact, no nasal discharge NECK: Neck supple, trachea midline. CARDIAC: Normal S1/S2. Rhythm is regular, slightly fast on exam. No murmurs, rubs, or gallops. No cyanosis or pallor. Extremities are warm and well perfused. LUNGS: Clear to auscultation without rales, rhonchi, wheezing or diminished breath sounds. Respirations even and unlabored. ABDOMEN: BS positive x 4 quadrants. Obese. Soft, nondistended, nontender. No guarding or rebound. MSK: No joint tenderness/swelling, fair strength in all extremities. PERIPHERAL VASCULAR: Peripheral pulses palpable. Normal perfusion, cap refill <2 seconds. RLE with 2-3+ edema. NEURO: Follows commands. LE weakness. Mild dysarthria. SKIN: [place] without lesions or eruptions. PSYCH: Stable, no paranoia or delusional thinking. Objective Data Vital Signs Vital Signs: Vital Signs - 24 hr 07/08/24 11:36 07/08/24 11:45 07/08/24 12:00 Temperature Pulse Rate Respiratory Rate Blood Pressure Pulse Oximetry 100 Oxygen Delivery Room Air Room Air Room Air 07/08/24 12:00 07/08/24 12:44 07/08/24 14:00 Temperature 97.3 F L Pulse Rate 98 97 92 Respiratory Rate 18 Blood Pressure 133/57 L Pulse Oximetry 99 Oxygen Delivery 07/08/24 16:00 07/08/24 16:00 07/08/24 16:00 Temperature 98.0 F Pulse Rate 68 93 Respiratory Rate 18 Blood Pressure 121/59 L Pulse Oximetry 91 Oxygen Delivery Room Air 07/08/24 18:00 07/08/24 19:43 07/08/24 19:45 Temperature 98.0 F Pulse Rate 123 H 117 H Respiratory Rate 20 Blood Pressure 133/68 107/58 L Pulse Oximetry 100 Oxygen Delivery 07/08/24 20:00 07/08/24 20:00 07/08/24 21:19 Temperature Pulse Rate 115 H 115 H 115 H Respiratory Rate 20 Blood Pressure Pulse Oximetry 100 Oxygen Delivery Room Air 07/08/24 22:00 07/08/24 23:28 07/08/24 23:36 Temperature 98.6 F Pulse Rate 103 H 99 97 Respiratory Rate 20 20 Blood Pressure 126/53 L Pulse Oximetry 99 99 Oxygen Delivery Room Air 07/08/24 23:36 07/09/24 04:00 07/09/24 04:00 Temperature Pulse Rate 99 97 97 Respiratory Rate 20 Blood Pressure Pulse Oximetry 99 Oxygen Delivery Room Air 07/09/24 04:52 07/09/24 05:37 07/09/24 07:46 Temperature 98.5 F 98.7 F Pulse Rate 100 96 120 H Respiratory Rate 20 22 H Blood Pressure 146/60 H 149/73 H Pulse Oximetry 100 96 Oxygen Delivery 07/09/24 08:00 07/09/24 08:00 07/09/24 09:08 Temperature Pulse Rate 117 H 101 H 117 H Respiratory Rate 22 H Blood Pressure Pulse Oximetry 96 Oxygen Delivery Room Air 07/09/24 10:00 Temperature Pulse Rate 92 Respiratory Rate Blood Pressure Pulse Oximetry Oxygen Delivery Intake/Output Intake/Output: Intake & Output 07/06/24 07/07/24 07/08/24 07/09/24 23:59 23:59 23:59 23:59 Intake Total 840 2514.7 3069 637 Output Total 1425 1075 1350 500 Balance -585 1439.7 1719 137 Meds/Results Medications: Active Medications Generic Name Dose Route Start Last Admin Trade Name Freq PRN Reason Stop Dose Admin Acetaminophen 650 mg 07/02/24 16:08 Acetaminophen 650 Mg Suppository RECTAL Q6H PRN Mild Pain (1-3) or Fever Alprazolam 1 mg 07/03/24 00:03 07/07/24 21:23 Alprazolam (*Crx) 0.5 Mg Tablet PO 1 mg QID PRN Administration anxiety Aspirin 81 mg 07/05/24 08:00 07/09/24 09:07 Aspirin 81 Mg Chewable Tablet PO 81 mg DAILY@0800 SOLITARIO Administration Atorvastatin Calcium 80 mg 07/04/24 21:00 07/09/24 09:08 Atorvastatin 40 Mg Tablet PO 80 mg DAILY SOLITARIO Administration Clopidogrel Bisulfate 75 mg 07/05/24 09:00 07/09/24 09:08 Clopidogrel Bisulfate 75 Mg Tablet PO 75 mg QAM SOLITARIO Administration Folic Acid 1 mg 07/03/24 09:00 07/09/24 09:08 Folic Acid 1 Mg Tablet PO 1 mg DAILY SOLITARIO Administration Heparin Sodium (Porcine) 5,500 units 07/09/24 08:44 Heparin Sodium 5,000 Units/Ml Vial IV PUSH PRN PRN aPTT less than 55 seconds Heparin Sodium (Porcine) 3,000 units 07/09/24 08:44 Heparin Sodium 5,000 Units/Ml Vial IV PUSH PRN PRN aPTT 55 - 70 seconds Sodium Chloride 1,000 mls @ 70 mls/hr 07/06/24 14:30 07/09/24 05:37 Normal Saline Iv IV CONT 70 mls/hr .[id number] SOLITARIO Administration Heparin Sodium/Dextrose 25,000 units in 250 mls @ 13 mls/hr 07/09/24 08:45 07/09/24 09:01 Heparin Sodium/D5w 100 Units/Ml IV CONT 1,300 units/hr .[id number] SOLITARIO 13 mls/hr Administration Protocol 1,300 UNITS/HR Levetiracetam 500 mg 07/03/24 12:30 07/09/24 09:07 Levetiracetam 500 Mg Tablet PO 500 mg Q12HR SOLITARIO Administration Levothyroxine Sodium 75 mcg 07/03/24 06:30 07/09/24 07:30 Levothyroxine Sodium 75 Mcg Tablet PO 75 mcg DAILY@0630 SOLITARIO Administration Lorazepam 1 mg 07/02/24 23:55 Lorazepam Inj (*Crx) 2 Mg/Ml Vial IV PUSH Q2H PRN Seizures Magnesium Oxide 400 mg 07/06/24 17:00 07/09/24 09:08 Magnesium Oxide 400 Mg Tablet PO 400 mg BID SOLITARIO Administration Metoprolol Tartrate 50 mg 07/03/24 09:00 07/09/24 09:08 Metoprolol Tartrate 50 Mg Tab PO 50 mg Q12HR SOLITARIO Administration Metronidazole 500 mg 07/06/24 22:00 07/09/24 05:38 Metronidazole 500 Mg Tablet PO 500 mg Q8HR SOLITARIO Administration Montelukast Sodium 10 mg 07/03/24 00:15 07/08/24 21:19 Montelukast Sodium 10 Mg Tablet PO 10 mg HS SOLITARIO Administration Olmesartan 40 mg 07/03/24 09:00 07/09/24 09:07 Olmesartan Medoxomil 20 Mg Tablet PO 40 mg DAILY SOLITARIO Administration Potassium Chloride 40 meq 07/06/24 17:00 07/09/24 09:07 Potassium Chloride 20 Meq Er Tablet PO 40 meq TID SOLITARIO Administration Sodium Chloride 20 ml 07/04/24 16:15 Central Line Flush IV PUSH PRN PRN after blood draws Sodium Chloride 10 ml 07/04/24 16:15 Central Line Flush IV PUSH PRN PRN with TPN bag changes Sodium Chloride 10 ml 07/04/24 22:00 07/09/24 05:38 Central Line Flush IV PUSH 10 ml Q8HR SOLITARIO Administration Tramadol HCl 25 mg 07/07/24 00:00 07/08/24 17:40 Tramadol Hcl (*Crx) 25 Mg Tablet PO 25 mg Q4H PRN Administration Pain Rated 4-6 Vancomycin HCl 125 mg 07/08/24 12:00 07/09/24 05:38 Vancomycin Hcl 125 Mg Oral Capsule PO 125 mg Q6HR SOLITARIO Administration Radiology Results: ITS Impressions Chest X-Ray 07/02/24 13:16 IMPRESSION: 1. Small pleural effusions. 2. Airspace opacities at the lung bases, consistent with atelectasis or less likely pneumonia. Head CT 07/02/24 14:34 IMPRESSION: 1. Normal aging brain. Abdomen/Pelvis CT 07/02/24 14:36 IMPRESSION: 1. Persistent small collection of extra luminal gas in the left lower quadrant anterior abdominal wall immediately adjacent to a region of inflammatory stranding surrounding the descending colon consistent with diverticulitis. No abscess or more remote free intraperineal gas or fluid. 2. Persistent moderate-sized bilateral posterior layering pleural effusions with dependent compressive atelectasis in the visualized lower lobes. Brain MRI 07/04/24 11:30 IMPRESSION: 1. 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 2. 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 3. Diffuse pachymeningeal enhancement. This finding is most commonly secondary to prior lumbar puncture or spine procedure. ADDENDUM: 07/04/24 1216 The contrast volume was 20 mL MultiHance. Venous Doppler Study 07/05/24 14:17 IMPRESSION: 1. Extensive deep vein thrombosis in right lower limb. I called this result to Elsy Tao. Labs Labs: Laboratory Results - last 24 hr 07/08/24 07/09/24 07/09/24 15:49 06:01 08:59 WBC 5.5 5.0 RBC 2.40 L 2.54 L Hgb 7.9 L 7.5 L 8.1 L Hct 25.2 L 24.6 L 26.3 L MCV 102.5 H 103.5 H MCH 31.3 31.9 MCHC 30.5 L 30.8 L RDW 20.9 H 20.9 H Plt Count 221 235 MPV 9.6 10.5 H Immature Gran % (Auto) 1.3 H 1.6 H Neut % (Auto) 82.2 H 82.0 H Lymph % (Auto) 6.9 L 6.0 L Tift % (Auto) 8.9 H 9.8 H Eos % (Auto) 0.5 0.4 Baso % (Auto) 0.2 0.2 Lymph # (Auto) 0.38 L 0.30 L Tift # (Auto) 0.5 0.5 Eos # (Auto) 0.0 0.0 Baso # (Auto) 0.0 0.0 Abs Immat Gran (auto) 0.07 H 0.08 H Absolute Neuts (auto) 4.5 4.1 Absolute Nucleated RBC 0.000 0.000 Nucleated RBC % 0.0 0.0 PT 16.0 H INR 1.3 APTT 39.1 H Sodium 145 Potassium 4.9 Chloride 117 H Carbon Dioxide 19 L Anion Gap 9 BUN 15 Creatinine 1.17 H Estim Creat Clear Calc 43 Estimated GFR 45 L Glucose 95 Calcium 7.2 L Phosphorus 1.7 L Magnesium 2.2 Total Bilirubin 0.6 AST 32 ALT 15 Alkaline Phosphatase 86 Total Protein 5.0 L Albumin 2.6 L Procalcitonin 0.3 Blood Type O Negative Antibody Screen Negative Quality VTE Prophylaxis VTE prophylaxis: pharmacologic ordered Hospitalist MIPS Advance Care Plan I have confirmed that the patient's Advanced Care Plan is present, code status is documented, or surrogate decision maker is listed in patient medical record.: Yes Medication Reconciliation I have utilized all available resources to obtain, update and review the patients current medications (includes all prescriptions, OTC, herbals, cannabis , and nutritional supplements).: Yes
[2024-07-09] MEDS: SODIUM CHLORIDE 0.9% IV 500 ML IV CONT (11:05)
[2024-07-09] MEDS: PANTOPRAZOLE SODIUM IV 40 MG VIAL IV PUSH ×2 (12:54→22:15)
[2024-07-09 14:14] LABS: Iron 31 ug/dL (37-170)
[2024-07-09 14:24] LABS: Percent Iron Saturation 26 % (20-50)
--- NOTE | 2024-07-09 15:09 | P.CONGI_ITS ---
<Statement entered by Morales Collins MD - 07/09/24 16:22> I, Morales Collins MD, have provided a substantive portion of the care of this patient and discussed the patient with my Nurse Practitioner. I have reviewed any new relevant radiographic and laboratory results including medications. I agree with her documentation as noted below.?I personally performed the medical decision making and much of the history and exam for this encounter. briefly, she has multiple complications and admitted over 1 week ago, had stroke, also DVT RLE on blood thinners now, last month with C diff then recently CT scan showed diverticulitis. Patient denies overt gib but also noted anemia with hgb 8-9. She says that had colonoscopy but many years ago and she is not interested to get one again, she is 100% against getting one even later as outpatient. Complete treatment for diverticulitis, primary can monitor anemia and use of blood thinner. Will see as needed. Assessment and Plan Assessment and plan (1) Dysphagia: Qualifiers: Dysphagia type: esophageal phase Qualified Code(s): R13.19 - Other dysphagia Code(s): R13.10 - Dysphagia, unspecified Status: Acute (2) Diverticulitis: Code(s): K57.92 - Diverticulitis of intestine, part unspecified, without perforation or abscess without bleeding Status: Acute (3) Anemia: Qualifiers: Anemia type: due to chronic kidney disease Chronic kidney disease stage: unspecified stage Qualified Code(s): N18.9 - Chronic kidney disease, unspecified; D63.1 - Anemia in chronic kidney disease Code(s): D64.9 - Anemia, unspecified Status: Acute (4) C. difficile diarrhea: Code(s): A04.72 - Enterocolitis due to Clostridium difficile, not specified as recurrent Status: Acute Plan 1. Anemia: Admitted 07/02/2024 for altered mental status and being found unresponsive at retirement. Patient with complicated hospital admission including severe sepsis, acute onset confusion, CVA and acute DVT. On admission hemoglobin at 10. Labs today show HGB 8, HCT 26, MCV 104, platelets 235, INR 1.3. Patient with chronic kidney disease. No signs of active GI bleeding. patient had an EGD in April that showed no source of upper GI bleeding. Patient is currently on aspirin, Plavix and heparin drip. According to records it sounds as if the patient is going to be kept on aspirin, Plavix, Eliquis at time of discharge. * patient is a poor candidate for endoscopic evaluation at this time given diverticulitis and multiple other new comorbidities * Primary care team to continue monitoring H&H and transfuse as needed to keep HGB > 7 2. Weight loss/dysphagia/decreased appetite/GERD: Patient had been experiencing dysphagia prior to recent CVA. Following her EGD and outpatient esophageal manometry was recommended but patient has not followed up outpatient since her last hospitalization. Patient complains of a 65 lb weight loss over the past 2 months, current weight 94 kg. Per patient her baseline weight is around 250 lb. She admits to a decreased appetite x2 months. upper GI performed 05/14/2024 showed narrowing of the distal most esophagus with smooth mucosal margins which could either be due to spasm or fixed stricture. EGD 05/15/2024 performed for dysphagia and abnormal imaging. EGD showed small hiatal hernia but otherwise no findings to explain symptoms. * continue PPI * Esophageal manometry and endoscopic evaluation outpatient when stable 3. Diarrhea/C-Diff/diverticulitis: Patient tested positive for C diff 06/21/2024. Patient states that her bowel movements have been more formed recently but this cannot be verified. most recent CT July 02 showed inflammatory stranding surrounding the descending colon consistent with diverticulitis. * Patient on antibiotics, continue * colonoscopy as outpatient after 4-6 weeks and or once stable Thank you very much for allowing me to share in the care of this very nice patient. This report may have been done utilizing a voice recognition system. Attempts have been made to correct errors. However, there may be uncorrected grammatical, spelling, and recognition errors present. GI Consult Note Consult date/time: 07/09/24 15:09 HPI: Melissa Tom is a 73 year old female Past medical surgical history of COPD, CKD, hypothyroidism, hiatal hernia, gout, sleep apnea, HTN, diverticulitis, anxiety, appendectomy, cholecystectomy, and partial hysterectomy. Patient was brought into the emergency room 07/02/2024 from retirement after being found unresponsive. patient was admitted for severe sepsis and has since had multiple complications. GI has been consulted for anemia. Patient with multiple complications since admission including new onset convulsions, acute DVT and CVA. she is currently on aspirin, Plavix, and heparin drip. patient denies any signs of active GI bleeding. she is on PPI denies any uncontrolled reflux. Per patient she has lost 65 lb over the past 2 months which is unexplained. Per patient her baseline weight is around 250 lb. She also admits to decreased appetite for the past 2 months and new onset swallowing difficulty. Denies abdominal pain, nausea, vomiting, bloating, odynophagia, regurgitation, early satiety. She is having daily bowel movements and denies any diarrhea, constipation, hematochezia, or melena. Patient states that both her mother and father had colon cancer and she has a personal history of colon polyps. For patient her last colonoscopy was > 5 years ago performed in [place] the patient was unable to provide any further details. ENDOSCOPY HISTORY: EGD: 05/15/[address] Blas for dysphagia Findings: a small hiatal hernia without obstruction was found at the GE junction. No rings, webs or neoplastic lesions seen on retroflexion Multiple cold forceps biopsies were taken from the lower 3rd esophagus to rule out eosinophilic esophagitis The stomach at the body, cardia and fundus was examined was normal with no ulcers or masses The bulb and 2nd portion of duodenum was normal with no ulcers or masses Bx results: Esophagus, biopsy: - No histologic abnormality - No eosinophilic esophagitis COLONOSCOPY: Per patient last colonoscopy performed > 5 years ago in [place] but no further information available. Patient states that both her mother and father had colon cancer and she has a personal history of colon polyps, but this could not be verified at time of visit LABS AND STOOL STUDIES: Labs 07/09/2024: WBCs 5, HGB 8, HCT 26, MCV 104, platelets 235, INR 1.3 Sodium 145, potassium 4.9, BUN 15, creatinine 1.17, GFR 45. Calcium 7.2, phosphorus 1.7, magnesium 2.2, iron 31, TIBC 118, iron saturation 26%, ferritin 392. Total bilirubin 0.6, AST 36, ALT 15, alkaline phosphatase 86, albumin 2.6, B12 911, procalcitonin 0.3 06/21/2024 C-Diff positive IMAGING: CT abd/pelvis w/contrast 07/02/2024 1. Persistent small collection of extraluminal gas in the left lower quadrant anterior abdominal wall immediately adjacent to a region of inflammatory stranding surrounding the descending colon consistent with diverticulitis. No abscess or more remote free intraperitoneal gas or fluid 2. Persistent moderate size bilateral posterior layering pleural effusions with dependent compressive atelectasis in the visualized lower lobes CT abd/pelvis w/contrast 06/26/2024 IMPRESSION: 1. Small persistent collection of extraluminal gas adjacent to the descending colon abutting the anterior abdominal wall, images 132-139. No evidence for abscess formation. Cannot exclude mild acute diverticulitis. 2: Interval development of moderate bilateral pleural effusions and ascites. Upper GI series 05/14/2024 IMPRESSION: 1. Narrowing of the distalmost esophagus with smooth mucosal margins which could be due to either spasm or fixed stricture either benign or malignant. Would recommend endoscopy for further evaluation. Review of Systems 2 Constitutional: Constitutional: Reports as per HPI and Reports weakness ENT: Reports as per HPI Cardiovascular: Cardiovascular: Reports as per HPI, Denies chest pain, Reports leg edema and Denies dyspnea Respiratory: Respiratory: Denies cough, Denies hemoptysis and Denies dyspnea Gastrointestinal: Gastrointestinal: Reports as per HPI Musculoskeletal: Musculoskeletal: Reports as per HPI Integumentary/Breasts: Skin/Breast: Reports unusual bruising Neurologic: Reports confusion Comments: recent CVA Psychiatric: Psychiatric: Reports as per HPI Endocrine: Endocrine: Reports no additional endocrine complaints Hematologic/Lymphatic: Hematologic/Lymphatic: Reports no additional hematologic/lymphatic complaints [facility] Past Medical History Medical History (Updated 07/09/24 @ 15:27 by Yissel Rutherford APRN) Edema Hypokalemia CVA (cerebral vascular accident) Urinary retention Chronic obstructive pulmonary disease Chronic kidney disease C. difficile colitis (2021) Megaloblastic anemia Hiatal hernia Anxiety Postmenopausal Hypothyroidism Gout Sleep apnea intolerant of CPAP Diverticulitis Hypertension Surgical History Surgical History History of partial hysterectomy History of appendectomy incidental appendectomy during open cholecystectomy History of tonsillectomy and adenoidectomy History of cholecystectomy Family History Family History Other Family history of malignant neoplasm Social History Social History Social History: Surrogate medical decision maker: Jeremiah Tom, arturo ([phone]). Code status: Do not resuscitate. Smoking packs per day: 1 Smoking cigarettes per day: 20.0 Years smoked: 5 Smoking pack-years: 5.00 Smoking status: Never smoker Tobacco type: cigarettes Alcohol intake: never Substance use: never Substance use type: does not use Do You Feel Safe in your Home?: Yes Lack of Transportation: YES Lack of Food: Never True Current Housing: I Have Housing Concerned About Future Housing: No Difficulty Paying Gas/Electric Bills: No Difficulty Paying for Meds: No Currently Unemployed: No Education: High School Diploma/GED Difficulty w/ Childcare or Family Care: No Additional living arrangements comments: since 1987. She had a daughter who of complications of juvenile diabetes at the age of 40. Her son is still living. Ambulates with a walker. 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 Spiritual care concerns: No Meds Home Medications and Allergies Home Medications ?Medication ?Instructions ?Recorded ?Confirmed ?Type esomeprazole magnesium 40 mg 1 cap PO 2XD 11/23/21 07/02/24 History capsule,delayed release (Nexium) levothyroxine 75 mcg tablet 1 tablet PO DAILY 11/23/21 07/02/24 History (Synthroid) metoprolol tartrate 50 mg tablet 1 tablet PO BID 11/23/21 07/02/24 History (Lopressor) montelukast 10 mg tablet 1 tablet PO HS 11/23/21 07/02/24 History (Singulair) trazodone 100 mg tablet 100 mg PO HS 11/23/21 07/02/24 History meclizine 12.5 mg tablet 12.5 mg PO TID PRN dizziness #60 05/18/24 07/02/24 Rx tabs potassium chloride 10 mEq 1 tablet PO DAILY #30 tabs 05/18/24 07/02/24 Rx tablet,extended release (Klor-Con) alprazolam 1 mg tablet 1 mg PO QID PRN anxiety #5 tabs 06/28/24 07/02/24 Rx fidaxomicin 200 mg tablet (Dificid) 200 mg PO Q12HR #27 tabs 06/28/24 07/02/24 Rx folic acid 1 mg tablet 1 mg PO DAILY #30 tabs 06/28/24 07/02/24 Rx tramadol 50 mg tablet 50 mg PO DAILY PRN pain #5 tabs 06/28/24 07/02/24 Rx tramadol 50 mg tablet 100 mg (2 x 50 mg) PO HS PRN pain 06/28/24 07/02/24 Rx #5 tabs bisacodyl 10 mg rectal suppository 10 mg RECTAL DAILY PRN constipation 07/02/24 07/02/24 History cyanocobalamin (vitamin B-12) 1,000 mcg PO DAILY 07/02/24 07/02/24 History 1,000 mcg tablet (Vitamin B-12) levofloxacin 750 mg tablet 750 mg PO DAILY 07/02/24 07/02/24 History magnesium citrate (Citrate of 296 ml PO DAILY PRN constipation 07/02/24 07/02/24 History Magnesia oral) magnesium hydroxide 400 mg/5 mL 30 ml PO HS PRN constipation 07/02/24 07/02/24 History oral suspension (Dulcolax (magnesium hydroxide)) metronidazole 500 mg tablet 500 mg PO TID 07/02/24 07/02/24 History olmesartan 20 mg tablet (Benicar) 40 mg PO DAILY 07/02/24 07/02/24 History sodium phosphates 19 gram-7 118 ml RECTAL DAILY PRN 07/02/24 07/02/24 History gram/118 mL enema (Enema) constipation vancomycin 125 mg capsule 125 mg PO QID 07/02/24 07/02/24 History (Vancocin) Allergies Allergy/AdvReac Type Severity Reaction Status Date / Time No Known Allergies Allergy Mild Verified 07/02/24 21:56 Vital Signs Vital Signs - 24 hr 07/08/24 16:00 07/08/24 16:00 07/08/24 16:00 Temperature 98.0 F Pulse Rate 68 93 Respiratory Rate 18 Blood Pressure 121/59 L Pulse Oximetry 91 Oxygen Delivery Room Air 07/08/24 18:00 07/08/24 19:43 07/08/24 19:45 Temperature 98.0 F Pulse Rate 123 H 117 H Respiratory Rate 20 Blood Pressure 133/68 107/58 L Pulse Oximetry 100 Oxygen Delivery 07/08/24 20:00 07/08/24 20:00 07/08/24 21:19 Temperature Pulse Rate 115 H 115 H 115 H Respiratory Rate 20 Blood Pressure Pulse Oximetry 100 Oxygen Delivery Room Air 07/08/24 22:00 07/08/24 23:28 07/08/24 23:36 Temperature 98.6 F Pulse Rate 103 H 99 97 Respiratory Rate 20 20 Blood Pressure 126/53 L Pulse Oximetry 99 99 Oxygen Delivery Room Air 07/08/24 23:36 07/09/24 04:00 07/09/24 04:00 Temperature Pulse Rate 99 97 97 Respiratory Rate 20 Blood Pressure Pulse Oximetry 99 Oxygen Delivery Room Air 07/09/24 04:52 07/09/24 05:37 07/09/24 07:46 Temperature 98.5 F 98.7 F Pulse Rate 100 96 120 H Respiratory Rate 20 22 H Blood Pressure 146/60 H 149/73 H Pulse Oximetry 100 96 Oxygen Delivery 07/09/24 08:00 07/09/24 08:00 07/09/24 09:08 Temperature Pulse Rate 117 H 101 H 117 H Respiratory Rate 22 H Blood Pressure Pulse Oximetry 96 Oxygen Delivery Room Air 07/09/24 10:00 07/09/24 11:44 07/09/24 12:00 Temperature 98.5 F Pulse Rate 92 93 99 Respiratory Rate 20 Blood Pressure 135/50 L Pulse Oximetry 99 Oxygen Delivery 07/09/24 12:00 07/09/24 14:00 Temperature Pulse Rate 95 95 Respiratory Rate 20 Blood Pressure Pulse Oximetry 99 Oxygen Delivery Room Air Exam 2 Const: General: cooperative, healthy appearing, comfortable, no acute distress and well developed Orientation/consciousness: oriented to person, oriented to place, oriented to time and patient oriented x3 HENMT: Head: normal to inspection, normocephalic and atraumatic Mouth: Yes Normal oral and palatal mucosa present and Yes moist mucous membranes Eyes: General: appearance normal, both eyes and all related structures C onjunctivae: conjunctivae normal Sclera: sclerae normal Pupils: Equal, round and reactive pupils present Neck: Neck: normal visual inspection Chest: Chest palpation & inspection: normal inspection of the chest Resp: Effort & Inspection: normal respiratory effort and able to speak in complete sentences Auscultation: clear to auscultation bilaterally Cardio: Jugular venous distension: no JVD Rate: regular rate Rhythm: r egular rhythm Heart sounds: S1 normal heart sound present and S2 normal heart sound present GI: Inspection: normal to inspection GI Palp: Yes Soft to palpation, No Tenderness to palpation present (GI), No Guarding due to palpation present (GI) and Yes No hepatosplenomegaly present Auscultation: normal bowel sounds R ectal Exam: deferred Skin: General skin exam: normal color Other: bruising over arms Neuro: General: oriented to person, oriented to place, oriented to time and patient oriented x3 Cranial nerves: Yes Equal, round and reactive pupils present Speech: normal speech Extrem: General: normal to inspection and no clubbing, cyanosis or edema Psych: Appearance: grossly normal and well kempt Affect: normal affect Results Labs 07/09/24 08:59 07/09/24 06:01 Labs: Short CBC 07/08/24 07/09/24 07/09/24 Range/Units 15:49 06:01 08:59 WBC 5.5 5.0 (4.5-10.0) K/mm3 Hgb 7.9 L 7.5 L 8.1 L (12.0-15.0) g/dL Hct 25.2 L 24.6 L 26.3 L (37.0-47.0) % Plt Count 221 235 (150-375) k/mm3 BMP 07/09/24 06:01 Sodium 145 Potassium 4.9 Chloride 117 H Carbon Dioxide 19 L BUN 15 Creatinine 1.17 H Glucose 95 Calcium 7.2 L Liver Function 07/09/24 Range/Units 06:01 Total Bilirubin 0.6 (0.2-1.3) mg/dL AST 32 (14-36) U/L ALT 15 (6-35) U/L Alkaline Phosphatase 86 (38-126) U/L Albumin 2.6 L (3.5-5.1) g/dL
[2024-07-09 20:13] LABS: Partial Thromboplastin Time > 200.0 Seconds (22.3-36.8)
[2024-07-09] MEDS: MONTELUKAST SODIUM 10 MG TABLET PO (21:04)
[2024-07-10] VITALS (21 sets, daily range): BP systolic 111–154; BP diastolic 56–84; PULSE 67–108; RESP 17–26; TEMP 36.3–36.8; O2SAT 93–99; BMI 35.1
[2024-07-10 04:03] LABS: Basophils Percent Auto 0.2 % (0.2-1.2); Eosinophils Percent Auto 0.9 % (0-4.4); Immature Granulocyte Absolute 0.09 K/mm3 (0.00-0.031); Lymphocytes Absolute Auto 0.55 K/mm3 (0.9-3.2); Lymphocytes Percent Auto 12.1 % (18.3-44.2); Mean Corpuscular HGB Conc 30.6 g/dl (32-36); Mean Corpuscular Hemoglobin 31.3 pg (26-34); Mean Corpuscular Volume 102.5 fl (80-100); Mean Platelet Volume 9.8 fl (7.4-10.4); Monocytes Absolute Auto 0.7 K/mm3 (0.1-0.6); Monocytes Percent Auto 14.5 % (2.6-8.5); Neutrophils Absolute Auto 3.2 K/mm3 (1.3-6.7); Neutrophils Percent Auto 70.3 % (45.5-73.1); Platelet Count Result 205 k/mm3 (150-375); Red Blood Count 2.01 M/mm3 (4.2-5.4); Red Cell Distribution Width 20.8 % (11.5-14.5); White Blood Count 4.5 K/mm3 (4.5-10.0)
[2024-07-10 04:16] LABS: Hematocrit 20.6 % (37.0-47.0); Hemoglobin 6.3 g/dL (12.0-15.0)
[2024-07-10 04:34] LABS: Partial Thromboplastin Time > 200.0 Seconds (22.3-36.8)
[2024-07-10] MEDS: metroNIDAZOLE 500 MG TABLET PO ×3 (05:34→20:28)
[2024-07-10] MEDS: traMADol HCL (*CRX) 25 MG TABLET PO ×3 (05:34→22:30)
[2024-07-10] MEDS: LEVOTHYROXINE SODIUM 75 MCG TABLET PO (05:34)
[2024-07-10] MEDS: CENTRAL LINE FLUSH 10 ML IV PUSH ×3 (06:30→20:29)
[2024-07-10] MEDS: SODIUM CHLORIDE 0.9% IV 250 ML 30 ML IV CONT (06:30)
[2024-07-10] MEDS: FOLIC ACID 1 MG TABLET PO (08:57)
[2024-07-10] MEDS: PANTOPRAZOLE SODIUM IV 40 MG VIAL IV PUSH ×2 (08:57→20:29)
[2024-07-10] MEDS: MAGNESIUM OXIDE 400 MG TABLET PO ×2 (08:57→17:08)
[2024-07-10] MEDS: METOPROLOL TARTRATE 50 MG TAB PO ×2 (08:57→20:29)
[2024-07-10] MEDS: VANCOMYCIN HCL 125 MG ORAL CAPSULE PO ×4 (08:57→20:29)
[2024-07-10] MEDS: levETIRAcetam 500 MG TABLET PO ×2 (08:57→20:28)
[2024-07-10] MEDS: OLMESARTAN MEDOXOMIL 20 MG TABLET 40 MG PO (08:57)
[2024-07-10] MEDS: ATORVASTATIN 40 MG TABLET 80 MG PO (08:57)
[2024-07-10 09:29] LABS: Mean Corpuscular Hemoglobin 30.8 pg (26-34); Mean Corpuscular Volume 99.3 fl (80-100); Mean Platelet Volume 10.2 fl (7.4-10.4); Platelet Count Result 227 k/mm3 (150-375); Red Blood Count 2.92 M/mm3 (4.2-5.4); Red Cell Distribution Width 19.9 % (11.5-14.5); White Blood Count 5.1 K/mm3 (4.5-10.0)
[2024-07-10 09:43] LABS: Alanine Aminotransferase 18 U/L (6-35); Albumin Level 2.4 g/dL (3.5-5.1); Alkaline Phosphatase 107 U/L (38-126); Anion Gap 8 mmol/L (4-12); Aspartate Amino Transferase 76 U/L (14-36); Bilirubin,Total 0.7 mg/dL (0.2-1.3); Blood Urea Nitrogen 15 mg/dL (7-17); Calcium 7.3 mg/dL (8.4-10.2); Carbon Dioxide 19 mmol/L (22-30); Chloride 115 mmol/L (98-107); Estimated CRCL calculation 42 ml/min; Estimated Glomerular Filt Rate 44; Glucose 99 mg/dL (65-110); Potassium 4.1 mmol/L (3.4-5.0); Sodium 142 mmol/L (137-145)
[2024-07-10 09:49] LABS: Partial Thromboplastin Time 42.6 Seconds (22.3-36.8)
[2024-07-10 09:56] LABS: IFOB Positive Control Positive; Immunochemical Fecal Occult Bl Positive (N)
--- NOTE | 2024-07-10 10:08 | P.PNIM_ITS ---
Progress Note: A&P Assessment and Plan (1) Seizure: Code(s): R56.9 - Unspecified convulsions Status: Acute Assessment and Plan: 07/03/24: * New onset * Continue workup as ordered with neuro checks, EEG, MRI, and neurology consult. * Telemetry * Start Keppra 500 mg BID. Consider up titration as needed. * Seizure precautions. * Benzodiazepine prn for any seizure activity. * CT head negative. 07/04/24 * MRI shows Acute infarct left frontoparietal lobe in deep white matter. * EEG Pending. * Pt being started on Atorvastatin 80 mg daily, and loaded with Plavix 150 mg and start 75 mg tomorrow. * Start baby ASA daily. 07/05/24: * Awaiting EEG. * Continue Keppra * Continue telemetry * Continue prn benzodiazepines * Continue meds of Plavix, ASA and Atorvastatin 07/06: continue keppra SP MRI neurology MD on board 07/07: continue present care Plavix, ASA and Atorvastatin, keppra,for stroke and seizures flagyl, fidaxomicin, questran for cdif watch electrolytes 07/08: Keppra 500 bid, no further seizure activity noted. 07/10/24: * Continuing Keppra at this time. No further activity is noted (2) Post-ictal confusion: Code(s): F05 - Delirium due to known physiological condition Status: Resolved Assessment and Plan: 07/03/24: * At baseline and A&Ox3. * Seizure precautions. 07/04/24: * Continue safety precautions 07/05/24: * Continue precautions and treatments as noted above. * Pt demonstrating transient confusion, but is very believable in what she is saying. Example: She told me that she lives at home alone prior to her event that led to this hospitalization, however, she is SNF at [facility]. 07/06: pleasantly confused not agitated today 07/07 : pleasantly confused 07/08: No agitation, stable mentation. 07/10/24; * Pt forgetful at times, states she does not remember saying she would never have a colonoscopy. (3) Acute DVT (deep venous thrombosis): Code(s): I82.409 - Acute embolism and thrombosis of unspecified deep veins of unspecified lower extremity Status: Acute Assessment and Plan: * RLE, extensive DVT present. * Pt has been on heparin drip, but this has been placed on hold as pt received a unit of blood overnight for a presumed GI bleed in the setting of extensive anticoagulation as she has a positive occult stool, and has recently been started on Plavix, ASA and was on therapeutically dosed Lovenox. * We have consulted Gen Sgy for further management and consult for a possible IVC filter. (4) Edema: Code(s): R60.9 - Edema, unspecified Status: Acute Assessment and Plan: 07/05/24: * RLE edema 2+ pitting, LLE edema trace * Lower suspicion of VTE, but given recent embolic event with CVA, Venous dopplers ordered. * Lovenox preventatively dosed initiated. * Continue Lasix and supplemental potassium dosing. 07/06 edema is better 07/07 no edema 07/08: Noted RLE VTE. RLE with 2+ pitting edema, LLE trace only. - Change to eliquis 10mg bid x 7 days, then 5mg bid. 07/10/24: * See #3 (5) CVA (cerebral vascular accident): Code(s): I63.9 - Cerebral infarction, unspecified Status: Acute Assessment and Plan: 07/04/24: * As evidenced by MRI showing acute infarct of the left frontoparietal lobe in the deep white matter. Also showing PRES and Diffuse Pachymeningeal enhancement. * Starting on Plavix, ASA and Atorvastatin. * Neurology is following. * LLE weakness 07/05/24: * Continue current treatments. * EEG pending * PT and OT ordered. 07/06 continue the same ontinjue the same 07/08: Stable without acute deficits on examination. - Cont. secondary prevention asa/plavix/statin. - Appreciate neuro recs regarding antiplatelet therapy in the setting of full anticoagulation in this patient. 07/10/24: * Continues to receive ASA/Plavix/Statin (6) Occult blood in stools: Code(s): R19.5 - Other fecal abnormalities Status: Acute Assessment and Plan: * Etiology from Diverticulitis and C-diff colitis vs. GI bleed in setting of DAPT therapy and required anticoagulation for extensive RLE DVT. * GI consulted and although pt originally refused scope, she is now agreeable. * Consult Gen Sgy for possible IVC filter in the setting her Heparin is currently being held. Pt was on Heparin drip for extensive RLE DVT. (7) Diverticulitis of intestine with perforation without abscess: Qualifiers: Diverticulitis site: large intestine Diverticulitis bleeding: without bleeding Qualified Code(s): K57.20 - Diverticulitis of large intestine with perforation and abscess without bleeding Code(s): K57.80 - Diverticulitis of intestine, part unspecified, with perforation and abscess without bleeding Status: Acute Assessment and Plan: 07/03/24: * Continue Levaquin, Fidaxomycin and Flagyl * Monitor daily labs and VS and trend. 07/04/24: * Levaquin now completed. * Continue Fidaxomycin and Flagyl 07/05/24: * Last dose of Flagyl will be today. * Continue Fidaxomycin through the . 07/06 ongoing diarrhea and electrolyte loss 07/07 much the same 07/08: No abdominal pain. 07/10/24: * In setting of recurrent C-diff. * Continue Vancocin pulse dosing. * Pt failed Fidaxomycin. (8) Urinary retention: Code(s): R33.9 - Retention of urine, unspecified Status: Acute Assessment and Plan: 07/04/24: * Acute urinary retention requiring fitzpatrick yesterday. * Will attempt fitzpatrick removal tomorrow now that pt is not post-ictal. * Will do post void residuals and bladder scans tomorrow with voiding trial and if unable to void, will consult Urology. Pt may need urodynamic testing for potential neurogenic bladder since she has had a CVA. 07/05/24: * Voiding trial today. * Catheter removed and PVR's measured. * I was called by the RN at 1335 and told that she has 248 ml in bladder without sensation to void. Advised that if she did not urinate within the next hour, she will need the catheter replaced. Will go ahead and consult Urology. 07/06: continue catheter watch UO 07/07 UO is good pt is on ivf 07/08: Taking oral well, IVF were previously discontinued. Failed a voiding trial. - Urology consulted. Rec. keep catheter and repeat voiding trial in 1-2 weeks. - Cont. with fitzpatrick catheter. 07/10/24: * Follow up with Urology as outpt. (9) Hypokalemia: Code(s): E87.6 - Hypokalemia Status: Acute Assessment and Plan: 07/04/24: * Potassium today is 2.9. * KCL 40 meq po and KCL 40 meq IVPB given. * Trend labs in AM. 07/05/24: * Potassium level today is 2.7 despite her receiving the K+ rider yesterday and the po dose. * Another 40 mEq po and 40 mEq IVPB are ordered. * Reassess level in AM. 07/06 Severe hypokalaemia watch bmp Q12 hours 07/07 watch electrolytes 07/08: K decreased to 4.1 despite 120meq replacement prior 24 hours. Ongoing diarrheal losses. - Continue 120meq daily replacement. - Repeat labs 24h, additionally check mg. 07/10/24: * Current potassium is 4.1. (10) C. difficile diarrhea: Code(s): A04.72 - Enterocolitis due to Clostridium difficile, not specified as recurrent Status: Acute Assessment and Plan: 07/03/24: * Pre-existing prior to coming into hospital. * Continue Fidaxomycin. * continue 07/06 07/08: C. diff recurrence had discharged on fidaxomicin in May. Appears to have been expected to start a vancomycin course which is not currently ordered. Not showing significant improvement in output per nursing. - DC fidaxomicin. - Pulse taper vanc dose as follows: 125 mg orally 4 times daily for 10 to 14 days, then 125 mg orally twice daily for 7 days, then 125 mg orally once daily for 7 days, then 125 mg orally every 2 to 3 days for 2 to 8 weeks - Consider zinplava if available. 07/10/24: * Continue pulse dosing of Vancocin. (11) Hypothyroidism: Qualifiers: Hypothyroidism type: unspecified Qualified Code(s): E03.9 - Hypothyroidism, unspecified Code(s): E03.9 - Hypothyroidism, unspecified Status: Chronic Assessment and Plan: 07/03/24: * Continue home medications of Levothyroxine. * continue 07/06 07/08: Cont. home dosage. (12) Hypertension: Qualifiers: Hypertension type: primary hypertension Qualified Code(s): I10 - Essential (primary) hypertension Code(s): I10 - Essential (primary) hypertension Status: Chronic Assessment and Plan: 07/03/24: * Stable. Continue metoprolol, Benicar and monitor. * stable today 07/06 07/08: Stable (13) Anemia: Qualifiers: Anemia type: due to chronic kidney disease Chronic kidney disease stage: unspecified stage Qualified Code(s): N18.9 - Chronic kidney disease, unspecified; D63.1 - Anemia in chronic kidney disease Code(s): D64.9 - Anemia, unspecified Status: Acute Assessment and Plan: 07/08: Slight downtrend in hgb, currently on triple therapy with anticoag and dapt. Prior admission 06/25/24 1 unit prbc given. - Transfuse for hgb <7. - Cont. trending hgb. Recheck this afternoon, obtain t/s. 07/10/24: * Pt had blood transfusion overnight for Hgb 6.3. * H&H this AM is 9.0/29.0. * Heparin has been placed on hold in setting of positive occult blood. * GI consulted yesterday and originally pt declined scope, however she is agreeable this AM. * Remains also on DAPT therapy. * Continue to monitor daily labs and trends. (14) Sinus tachycardia: Code(s): R00.0 - Tachycardia, unspecified Status: Acute Assessment and Plan: 07/10/24: * Stable Time Spent With Patient Time with patient: 15 - 25 minutes Subjective Date/time seen: 07/10/24 10:08 Review of Systems Review of Systems: This pt was examined at the bedside today in interval assessment. Pt appears acutely ill as compared to one week ago when I had her as a pt. She has had multiple new complications since then including the development of an extensive DVT in the RLE, recurrence of C-diff and has required blood transfusion as well since her new dx of acute CVA and new onset seizure from last week. She reports that in general she does not feel well. She currently has a rectal tube for her stools and occult blood obtained this AM was positive for occult blood. GI consulted and saw her yesterday and it is noted at that time that the pt adamantly refused any Colonoscopy, but today the pt is agreeable for this provider. RN is letting GI know this as currently her Heparin drip for her extensive DVT in the RLE has been held in the setting of her requiring a unit of blood being transfused and her having a positive occult blood. In addition, Gen Sgy is consulted for possible placement of an IVC filter. All systems reviewed & are unremarkable except as noted in HPI and below Exam Narrative: GENERAL APPEARANCE: Appears to be in no acute distress. HEAD: normocephalic atraumatic EYES: PERRL, EOMI. Vision grossly intact. ENT: Hearing grossly intact, no nasal discharge NECK: Neck supple, trachea midline. CARDIAC: Normal S1/S2. Rhythm is regular, slightly fast on exam. No murmurs, rubs, or gallops. No cyanosis or pallor. Extremities are warm and well perfused. LUNGS: Clear to auscultation without rales, rhonchi, wheezing or diminished breath sounds. Respirations even and unlabored. ABDOMEN: BS positive x 4 quadrants. Obese. Soft, nondistended, nontender. No guarding or rebound. MSK: No joint tenderness/swelling, fair strength in all extremities. PERIPHERAL VASCULAR: Peripheral pulses palpable. Normal perfusion, cap refill <2 seconds. RLE with 2-3+ edema. NEURO: Follows commands. LE weakness. Mild dysarthria. SKIN: [place] without lesions or eruptions. PSYCH: Stable, no paranoia or delusional thinking. Objective Data Vital Signs Vital Signs: Vital Signs - 24 hr 07/09/24 11:44 07/09/24 12:00 07/09/24 12:00 Temperature 98.5 F Pulse Rate 93 99 95 Respiratory Rate 20 20 Blood Pressure 135/50 L Pulse Oximetry 99 99 Oxygen Delivery Room Air 07/09/24 14:00 07/09/24 16:00 07/09/24 16:00 Temperature Pulse Rate 95 110 H 99 Respiratory Rate 22 H Blood Pressure Pulse Oximetry 98 Oxygen Delivery Room Air 07/09/24 16:23 07/09/24 18:00 07/09/24 20:00 Temperature 97.7 F Pulse Rate 110 H 113 H 98 Respiratory Rate 22 H 22 H Blood Pressure 124/64 Pulse Oximetry 98 98 Oxygen Delivery Room Air 07/09/24 20:00 07/09/24 20:54 07/09/24 21:04 Temperature 98.2 F Pulse Rate 98 87 107 H Respiratory Rate 20 Blood Pressure 130/60 Pulse Oximetry 91 Oxygen Delivery 07/09/24 21:45 07/09/24 23:49 07/09/24 23:50 Temperature Pulse Rate 85 79 79 Respiratory Rate 20 Blood Pressure Pulse Oximetry 91 Oxygen Delivery Room Air 07/09/24 23:52 07/10/24 02:00 07/10/24 04:00 Temperature 97.7 F 98.2 F Pulse Rate 84 88 93 Respiratory Rate 20 20 Blood Pressure 133/77 154/75 H Pulse Oximetry 97 96 Oxygen Delivery 07/10/24 04:00 07/10/24 04:00 07/10/24 05:31 Temperature 97.8 F Pulse Rate 82 82 92 Respiratory Rate 20 20 Blood Pressure 146/79 H Pulse Oximetry 96 99 Oxygen Delivery Room Air 07/10/24 05:38 07/10/24 06:00 07/10/24 06:46 Temperature 97.8 F 97.4 F L Pulse Rate 86 85 82 Respiratory Rate 18 18 Blood Pressure 150/60 H 111/84 Pulse Oximetry 98 99 Oxygen Delivery 07/10/24 08:00 07/10/24 08:53 07/10/24 08:57 Temperature 97.8 F 97.8 F Pulse Rate 79 101 H 102 H Respiratory Rate 22 H 18 Blood Pressure 122/59 L 138/67 Pulse Oximetry 99 99 Oxygen Delivery Intake/Output Intake/Output: Intake & Output 07/07/24 07/08/24 07/09/24 07/10/24 23:59 23:59 23:59 23:59 Intake Total 2514.7 3069 1728 1008.4 Output Total 1075 1350 950 350 Balance 1439.7 1719 778 658.4 Meds/Results Medications: Active Medications Generic Name Dose Route Start Last Admin Trade Name Freq PRN Reason Stop Dose Admin Acetaminophen 650 mg 07/02/24 16:08 Acetaminophen 650 Mg Suppository RECTAL Q6H PRN Mild Pain (1-3) or Fever Alprazolam 1 mg 07/03/24 00:03 07/07/24 21:23 Alprazolam (*Crx) 0.5 Mg Tablet PO 1 mg QID PRN Administration anxiety Aspirin 81 mg 07/05/24 08:00 07/09/24 09:07 Aspirin 81 Mg Chewable Tablet PO 81 mg DAILY@0800 SOLITARIO Administration Atorvastatin Calcium 80 mg 07/04/24 21:00 07/10/24 08:57 Atorvastatin 40 Mg Tablet PO 80 mg DAILY SOLITARIO Administration Clopidogrel Bisulfate 75 mg 07/05/24 09:00 07/09/24 09:08 Clopidogrel Bisulfate 75 Mg Tablet PO 75 mg QAM SOLITARIO Administration Folic Acid 1 mg 07/03/24 09:00 07/10/24 08:57 Folic Acid 1 Mg Tablet PO 1 mg DAILY SOLITARIO Administration Heparin Sodium (Porcine) 5,500 units 07/09/24 08:44 Heparin Sodium 5,000 Units/Ml Vial IV PUSH PRN PRN aPTT less than 55 seconds Heparin Sodium (Porcine) 3,000 units 07/09/24 08:44 Heparin Sodium 5,000 Units/Ml Vial IV PUSH PRN PRN aPTT 55 - 70 seconds Heparin Sodium/Dextrose 25,000 units in 250 mls @ 0 mls/hr 07/09/24 08:45 07/10/24 04:30 Heparin Sodium/D5w 100 Units/Ml IV CONT 0 units/hr .Q0M SOLITARIO 0 mls/hr Titration Protocol 0 UNITS/HR Sodium Chloride 250 mls @ 30 mls/hr 07/10/24 04:57 07/10/24 08:49 Normal Saline Iv IV CONT 07/10/24 13:16 Infused .Q8H20M STA Infusion Levetiracetam 500 mg 07/03/24 12:30 07/10/24 08:57 Levetiracetam 500 Mg Tablet PO 500 mg Q12HR SOLITARIO Administration Levothyroxine Sodium 75 mcg 07/03/24 06:30 07/10/24 05:34 Levothyroxine Sodium 75 Mcg Tablet PO 75 mcg DAILY@0630 SOLITARIO Administration Lorazepam 1 mg 07/02/24 23:55 Lorazepam Inj (*Crx) 2 Mg/Ml Vial IV PUSH Q2H PRN Seizures Magnesium Oxide 400 mg 07/06/24 17:00 07/10/24 08:57 Magnesium Oxide 400 Mg Tablet PO 400 mg BID SOLITARIO Administration Metoprolol Tartrate 50 mg 07/03/24 09:00 07/10/24 08:57 Metoprolol Tartrate 50 Mg Tab PO 50 mg Q12HR SOLITARIO Administration Metronidazole 500 mg 07/06/24 22:00 07/10/24 05:34 Metronidazole 500 Mg Tablet PO 500 mg Q8HR SOLITARIO Administration Montelukast Sodium 10 mg 07/03/24 00:15 07/09/24 21:04 Montelukast Sodium 10 Mg Tablet PO 10 mg HS SOLITARIO Administration Olmesartan 40 mg 07/03/24 09:00 07/10/24 08:57 Olmesartan Medoxomil 20 Mg Tablet PO 40 mg DAILY SOLITARIO Administration Pantoprazole Sodium 40 mg 07/09/24 12:35 07/10/24 08:57 Pantoprazole Sodium Iv 40 Mg Vial IV PUSH 40 mg Q12HR SOLITARIO Administration Sodium Chloride 20 ml 07/04/24 16:15 Central Line Flush IV PUSH PRN PRN after blood draws Sodium Chloride 10 ml 07/04/24 16:15 Central Line Flush IV PUSH PRN PRN with TPN bag changes Sodium Chloride 10 ml 07/04/24 22:00 07/10/24 06:30 Central Line Flush IV PUSH 10 ml Q8HR SOLITARIO Administration Tramadol HCl 25 mg 07/07/24 00:00 07/10/24 05:34 Tramadol Hcl (*Crx) 25 Mg Tablet PO 25 mg Q4H PRN Administration Pain Rated 4-6 Vancomycin HCl 125 mg 07/09/24 17:00 07/10/24 08:57 Vancomycin Hcl 125 Mg Oral Capsule PO 125 mg QID SOLITARIO Administration Radiology Results: ITS Impressions Chest X-Ray 07/02/24 13:16 IMPRESSION: 1. Small pleural effusions. 2. Airspace opacities at the lung bases, consistent with atelectasis or less likely pneumonia. Head CT 07/02/24 14:34 IMPRESSION: 1. Normal aging brain. Abdomen/Pelvis CT 07/02/24 14:36 IMPRESSION: 1. Persistent small collection of extra luminal gas in the left lower quadrant anterior abdominal wall immediately adjacent to a region of inflammatory stranding surrounding the descending colon consistent with diverticulitis. No abscess or more remote free intraperineal gas or fluid. 2. Persistent moderate-sized bilateral posterior layering pleural effusions with dependent compressive atelectasis in the visualized lower lobes. Brain MRI 07/04/24 11:30 IMPRESSION: 1. 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 2. 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 3. Diffuse pachymeningeal enhancement. This finding is most commonly secondary to prior lumbar puncture or spine procedure. ADDENDUM: 07/04/24 1216 The contrast volume was 20 mL MultiHance. Venous Doppler Study 07/05/24 14:17 IMPRESSION: 1. Extensive deep vein thrombosis in right lower limb. I called this result to Elsy Tao. Labs Labs: Laboratory Results - last 24 hr 07/08/24 07/09/24 07/09/24 15:49 08:59 17:03 WBC 5.0 RBC 2.54 L Hgb 8.1 L Hct 26.3 L MCV 103.5 H MCH 31.9 MCHC 30.8 L RDW 20.9 H Plt Count 235 MPV 10.5 H Immature Gran % (Auto) 1.6 H Neut % (Auto) 82.0 H Lymph % (Auto) 6.0 L [place] % (Auto) 9.8 H Eos % (Auto) 0.4 Baso % (Auto) 0.2 Lymph # (Auto) 0.30 L [place] # (Auto) 0.5 Eos # (Auto) 0.0 Baso # (Auto) 0.0 Abs Immat Gran (auto) 0.08 H Absolute Neuts (auto) 4.1 Absolute Nucleated RBC 0.000 Nucleated RBC % 0.0 APTT > 200.0 H* Sodium Potassium Chloride Carbon Dioxide Anion Gap BUN Creatinine Estim Creat Clear Calc Estimated GFR Glucose Calcium Iron 31 L TIBC 118 L % Saturation 26 Ferritin 392.00 H Total Bilirubin AST ALT Alkaline Phosphatase Total Protein Albumin Vitamin B12 911.0 Stl Occult Blood (IFOB) Blood Type O Negative Antibody Screen Negative Crossmatch See Detail 07/10/24 07/10/24 07/10/24 03:54 09:04 09:08 WBC 4.5 5.1 RBC 2.01 L 2.92 L Hgb 6.3 L* 9.0 L Hct 20.6 L* 29.0 L MCV 102.5 H 99.3 MCH 31.3 30.8 MCHC 30.6 L 31.0 L RDW 20.8 H 19.9 H Plt Count 205 227 MPV 9.8 10.2 Immature Gran % (Auto) 2.0 H Neut % (Auto) 70.3 Lymph % (Auto) 12.1 L [place] % (Auto) 14.5 H Eos % (Auto) 0.9 Baso % (Auto) 0.2 Lymph # (Auto) 0.55 L [place] # (Auto) 0.7 H Eos # (Auto) 0.0 Baso # (Auto) 0.0 Abs Immat Gran (auto) 0.09 H Absolute Neuts (auto) 3.2 Absolute Nucleated RBC 0.000 Nucleated RBC % 0.0 APTT > 200.0 H* 42.6 H Sodium 142 Potassium 4.1 Chloride 115 H Carbon Dioxide 19 L Anion Gap 8 BUN 15 Creatinine 1.19 H Estim Creat Clear Calc 42 Estimated GFR 44 L Glucose 99 Calcium 7.3 L Iron TIBC % Saturation Ferritin Total Bilirubin 0.7 AST 76 H ALT 18 Alkaline Phosphatase 107 Total Protein 5.0 L Albumin 2.4 L Vitamin B12 Stl Occult Blood (IFOB) Positive H Blood Type Antibody Screen Crossmatch Quality VTE Prophylaxis VTE prophylaxis: pharmacologic ordered
--- NOTE | 2024-07-10 10:15 | PC.NURSE ---
Updated Crystal Tao NP of + IFOB results and H&H results. New order to continue to hold heparin drip until seen by surgery, and to update GI on IFOB results.
--- NOTE | 2024-07-10 10:57 | PC.NURSE ---
Dr. Stephens returned phone call. He recommends to wait on colonoscopy due to pt being admitted with diverticulitis and C.Diff. Recommends to attempt as outpatient in 4-6 weeks. Crystal Tao NP notified of GI's recommendations
--- NOTE | 2024-07-10 13:20 | PCOTNOTE ---
Per RN, Patient unable to have therapy services this date due to Patient's condition and medications.
--- NOTE | 2024-07-10 13:25 | PCPTNOTE ---
Hold PT per RN today due to pt condition. Will continue to follow per PT POC.
--- NOTE | 2024-07-10 13:27 | PCPTNOTE ---
On 07/10/24, the student, COURTNEY Vigil, completed [facility] documentation on this patient. I have reviewed the student's documentation and agree with the findings.
--- NOTE | 2024-07-10 13:31 | WPDGIPROGNO ---
Progress Note: A&P Assessment and Plan (1) Acute on chronic anemia: Code(s): D64.9 - Anemia, unspecified Status: Acute Assessment and Plan: no overt gib but + FOBT- this could be from diverticulitis, recent c diff, also use of blood thinners and chronic medical condition we can not perform colonoscopy at this point because diverticulitis, will need to heal and probably in 4-6 more weeks but only if she is agreeable transfuse to keep hgb>7 will follow as needed (2) Diverticulitis of intestine with perforation without abscess: Qualifiers: Diverticulitis site: large intestine Diverticulitis bleeding: without bleeding Qualified Code(s): K57.20 - Diverticulitis of large intestine with perforation and abscess without bleeding Code(s): K57.80 - Diverticulitis of intestine, part unspecified, with perforation and abscess without bleeding Status: Acute Assessment and Plan: on abx, no abdominal pain c/o back pain (3) Occult blood in stools: Code(s): R19.5 - Other fecal abnormalities Status: Acute Assessment and Plan: in setting of recent c diff and diverticulisis (4) Acute DVT (deep venous thrombosis): Code(s): I82.409 - Acute embolism and thrombosis of unspecified deep veins of unspecified lower extremity Status: Acute (5) C. difficile colitis: Onset Date: 2021 Code(s): A04.72 - Enterocolitis due to Clostridium difficile, not specified as recurrent Status: Acute Assessment and Plan: oral vancomycin less diarrhea (6) CVA (cerebral vascular accident): Code(s): I63.9 - Cerebral infarction, unspecified Status: Acute Subjective Date/time seen: 07/10/24 13:31 Interval history: no overt gib but noted drop in hgb less diarrhea per patient report c/o back pain but no abdominal discomfort Review of Systems Review of Systems: All systems reviewed & are unremarkable except as noted in HPI and below Exam Const: General: cooperative, comfortable and no acute distress Orientation/consciousness: patient oriented x3 HENMT: Head: normal to inspection, normocephalic and atraumatic Eyes: General: appearance normal, both eyes and all related structures Neck: Neck: normal visual inspection Chest: Chest palpation & inspection: normal inspection of the chest Resp: Effort & Inspection: normal respiratory effort and able to speak in complete sentences Cardio: Rate: regular rate Rhythm: regular rhythm GI: Inspection: normal to inspection GI Palp: Yes Soft to palpation, No Tenderness to palpation present (GI) and No Guarding due to palpation present (GI) Auscultation: normal bowel sounds Skin: General skin exam: normal color Other: bruising over arms Neuro: General: oriented to person and oriented to place Extrem: General: normal to inspection Psych: Affect: normal affect Objective Data Vital Signs Vital Signs: Vital Signs - 24 hr 07/09/24 14:00 07/09/24 16:00 07/09/24 16:00 Temperature Pulse Rate 95 110 H 99 Respiratory Rate 22 H Blood Pressure Pulse Oximetry 98 Oxygen Delivery Room Air 07/09/24 16:23 07/09/24 18:00 07/09/24 20:00 Temperature 97.7 F Pulse Rate 110 H 113 H 98 Respiratory Rate 22 H 22 H Blood Pressure 124/64 Pulse Oximetry 98 98 Oxygen Delivery Room Air 07/09/24 20:00 07/09/24 20:54 07/09/24 21:04 Temperature 98.2 F Pulse Rate 98 87 107 H Respiratory Rate 20 Blood Pressure 130/60 Pulse Oximetry 91 Oxygen Delivery 07/09/24 21:45 07/09/24 23:49 07/09/24 23:50 Temperature Pulse Rate 85 79 79 Respiratory Rate 20 Blood Pressure Pulse Oximetry 91 Oxygen Delivery Room Air 07/09/24 23:52 07/10/24 02:00 07/10/24 04:00 Temperature 97.7 F 98.2 F Pulse Rate 84 88 93 Respiratory Rate 20 20 Blood Pressure 133/77 154/75 H Pulse Oximetry 97 96 Oxygen Delivery 07/10/24 04:00 07/10/24 04:00 07/10/24 05:31 Temperature 97.8 F Pulse Rate 82 82 92 Respiratory Rate 20 20 Blood Pressure 146/79 H Pulse Oximetry 96 99 Oxygen Delivery Room Air 07/10/24 05:38 07/10/24 06:00 07/10/24 06:46 Temperature 97.8 F 97.4 F L Pulse Rate 86 85 82 Respiratory Rate 18 18 Blood Pressure 150/60 H 111/84 Pulse Oximetry 98 99 Oxygen Delivery 07/10/24 08:00 07/10/24 08:00 07/10/24 08:00 Temperature 97.8 F Pulse Rate 79 102 H 103 H Respiratory Rate 22 H 18 Blood Pressure 122/59 L Pulse Oximetry 99 99 Oxygen Delivery Room Air 07/10/24 08:53 07/10/24 08:57 07/10/24 10:00 Temperature 97.8 F Pulse Rate 101 H 102 H 103 H Respiratory Rate 18 Blood Pressure 138/67 Pulse Oximetry 99 Oxygen Delivery Intake/Output Intake/Output: Intake & Output 07/07/24 07/08/24 07/09/24 07/10/24 23:59 23:59 23:59 23:59 Intake Total 2514.7 3069 1728 1008.4 Output Total 1075 1350 950 350 Balance 1439.7 1719 778 658.4 Meds/Results Medications: Active Medications Generic Name Dose Route Start Last Admin Trade Name Freq PRN Reason Stop Dose Admin Acetaminophen 650 mg 07/02/24 16:08 Acetaminophen 650 Mg Suppository RECTAL Q6H PRN Mild Pain (1-3) or Fever Alprazolam 1 mg 07/03/24 00:03 07/07/24 21:23 Alprazolam (*Crx) 0.5 Mg Tablet PO 1 mg QID PRN Administration anxiety Aspirin 81 mg 07/05/24 08:00 07/09/24 09:07 Aspirin 81 Mg Chewable Tablet PO 81 mg DAILY@0800 SOLITARIO Administration Atorvastatin Calcium 80 mg 07/04/24 21:00 07/10/24 08:57 Atorvastatin 40 Mg Tablet PO 80 mg DAILY SOLITARIO Administration Clopidogrel Bisulfate 75 mg 07/05/24 09:00 07/09/24 09:08 Clopidogrel Bisulfate 75 Mg Tablet PO 75 mg QAM SOLITARIO Administration Folic Acid 1 mg 07/03/24 09:00 07/10/24 08:57 Folic Acid 1 Mg Tablet PO 1 mg DAILY SOLITARIO Administration Heparin Sodium (Porcine) 5,500 units 07/09/24 08:44 Heparin Sodium 5,000 Units/Ml Vial IV PUSH PRN PRN aPTT less than 55 seconds Heparin Sodium (Porcine) 3,000 units 07/09/24 08:44 Heparin Sodium 5,000 Units/Ml Vial IV PUSH PRN PRN aPTT 55 - 70 seconds Heparin Sodium/Dextrose 25,000 units in 250 mls @ 0 mls/hr 07/09/24 08:45 07/10/24 04:30 Heparin Sodium/D5w 100 Units/Ml IV CONT 0 units/hr .Q0M SOLITARIO 0 mls/hr Titration Protocol 0 UNITS/HR Levetiracetam 500 mg 07/03/24 12:30 07/10/24 08:57 Levetiracetam 500 Mg Tablet PO 500 mg Q12HR SOLITARIO Administration Levothyroxine Sodium 75 mcg 07/03/24 06:30 07/10/24 05:34 Levothyroxine Sodium 75 Mcg Tablet PO 75 mcg DAILY@0630 SOLITARIO Administration Lorazepam 1 mg 07/02/24 23:55 Lorazepam Inj (*Crx) 2 Mg/Ml Vial IV PUSH Q2H PRN Seizures Magnesium Oxide 400 mg 07/06/24 17:00 07/10/24 08:57 Magnesium Oxide 400 Mg Tablet PO 400 mg BID SOLITARIO Administration Metoprolol Tartrate 50 mg 07/03/24 09:00 07/10/24 08:57 Metoprolol Tartrate 50 Mg Tab PO 50 mg Q12HR SOLITARIO Administration Metronidazole 500 mg 07/06/24 22:00 07/10/24 12:58 Metronidazole 500 Mg Tablet PO 500 mg Q8HR SOLITARIO Administration Montelukast Sodium 10 mg 07/03/24 00:15 07/09/24 21:04 Montelukast Sodium 10 Mg Tablet PO 10 mg HS SOLITARIO Administration Olmesartan 40 mg 07/03/24 09:00 07/10/24 08:57 Olmesartan Medoxomil 20 Mg Tablet PO 40 mg DAILY SOLITARIO Administration Pantoprazole Sodium 40 mg 07/09/24 12:35 07/10/24 08:57 Pantoprazole Sodium Iv 40 Mg Vial IV PUSH 40 mg Q12HR SOLITARIO Administration Sodium Chloride 20 ml 07/04/24 16:15 Central Line Flush IV PUSH PRN PRN after blood draws Sodium Chloride 10 ml 07/04/24 16:15 Central Line Flush IV PUSH PRN PRN with TPN bag changes Sodium Chloride 10 ml 07/04/24 22:00 07/10/24 12:58 Central Line Flush IV PUSH 10 ml Q8HR SOLITARIO Administration Tramadol HCl 25 mg 07/07/24 00:00 07/10/24 12:58 Tramadol Hcl (*Crx) 25 Mg Tablet PO 25 mg Q4H PRN Administration Pain Rated 4-6 Vancomycin HCl 125 mg 07/09/24 17:00 07/10/24 12:58 Vancomycin Hcl 125 Mg Oral Capsule PO 125 mg QID SOLITARIO Administration Radiology Results: ITS Impressions Chest X-Ray 07/02/24 13:16 IMPRESSION: 1. Small pleural effusions. 2. Airspace opacities at the lung bases, consistent with atelectasis or less likely pneumonia. Head CT 07/02/24 14:34 IMPRESSION: 1. Normal aging brain. Abdomen/Pelvis CT 07/02/24 14:36 IMPRESSION: 1. Persistent small collection of extra luminal gas in the left lower quadrant anterior abdominal wall immediately adjacent to a region of inflammatory stranding surrounding the descending colon consistent with diverticulitis. No abscess or more remote free intraperineal gas or fluid. 2. Persistent moderate-sized bilateral posterior layering pleural effusions with dependent compressive atelectasis in the visualized lower lobes. Brain MRI 07/04/24 11:30 IMPRESSION: 1. 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 2. 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 3. Diffuse pachymeningeal enhancement. This finding is most commonly secondary to prior lumbar puncture or spine procedure. ADDENDUM: 07/04/24 1216 The contrast volume was 20 mL MultiHance. Venous Doppler Study 07/05/24 14:17 IMPRESSION: 1. Extensive deep vein thrombosis in right lower limb. I called this result to Elsy Tao. Labs Labs: Laboratory Results - last 24 hr 07/08/24 07/09/24 07/09/24 15:49 08:59 17:03 WBC RBC Hgb Hct MCV MCH MCHC RDW Plt Count MPV Immature Gran % (Auto) Neut % (Auto) Lymph % (Auto) [place] % (Auto) Eos % (Auto) Baso % (Auto) Lymph # (Auto) [place] # (Auto) Eos # (Auto) Baso # (Auto) Abs Immat Gran (auto) Absolute Neuts (auto) Absolute Nucleated RBC Nucleated RBC % APTT > 200.0 H* Sodium Potassium Chloride Carbon Dioxide Anion Gap BUN Creatinine Estim Creat Clear Calc Estimated GFR Glucose Calcium Iron 31 L TIBC 118 L % Saturation 26 Ferritin 392.00 H Total Bilirubin AST ALT Alkaline Phosphatase Total Protein Albumin Vitamin B12 911.0 Stl Occult Blood (IFOB) Blood Type O Negative Antibody Screen Negative Crossmatch See Detail 07/10/24 07/10/24 07/10/24 03:54 09:04 09:08 WBC 4.5 5.1 RBC 2.01 L 2.92 L Hgb 6.3 L* 9.0 L Hct 20.6 L* 29.0 L MCV 102.5 H 99.3 MCH 31.3 30.8 MCHC 30.6 L 31.0 L RDW 20.8 H 19.9 H Plt Count 205 227 MPV 9.8 10.2 Immature Gran % (Auto) 2.0 H Neut % (Auto) 70.3 Lymph % (Auto) 12.1 L [place] % (Auto) 14.5 H Eos % (Auto) 0.9 Baso % (Auto) 0.2 Lymph # (Auto) 0.55 L [place] # (Auto) 0.7 H Eos # (Auto) 0.0 Baso # (Auto) 0.0 Abs Immat Gran (auto) 0.09 H Absolute Neuts (auto) 3.2 Absolute Nucleated RBC 0.000 Nucleated RBC % 0.0 APTT > 200.0 H* 42.6 H Sodium 142 Potassium 4.1 Chloride 115 H Carbon Dioxide 19 L Anion Gap 8 BUN 15 Creatinine 1.19 H Estim Creat Clear Calc 42 Estimated GFR 44 L Glucose 99 Calcium 7.3 L Iron TIBC % Saturation Ferritin Total Bilirubin 0.7 AST 76 H ALT 18 Alkaline Phosphatase 107 Total Protein 5.0 L Albumin 2.4 L Vitamin B12 Stl Occult Blood (IFOB) Positive H Blood Type Antibody Screen Crossmatch
[2024-07-10] MEDS: ASPIRIN 325 MG TABLET PO (14:26)
--- NOTE | 2024-07-10 14:42 | PM.CNGS ---
Assessment and Plan Assessment and plan (1) Acute DVT (deep venous thrombosis): Code(s): I82.409 - Acute embolism and thrombosis of unspecified deep veins of unspecified lower extremity Status: Acute Assessment and Plan: The reason for our consultation is a request for IVC filter placement. The patient has been admitted with an ischemic stroke and found to have an extensive right lower extremity DVT. She was started on therapeutic-dosed Lovenox, which she has tolerated well for 5 days. She was transitioned to a Heparin infusion yesterday, but reason is unclear. She does have chronic anemia and her serial labs have been followed. To note in her chart, she received a blood transfusion over 2 weeks ago during her last hospitalization when her hemoglobin drifted down while she was being treated for C.diff colitis/diverticulitis. Her hemoglobin has otherwise been stable up until it went down from 7.5-8.1 down to 6.3 this morning. She received one unit of PRBCs and it went up to 9.0. There is no evidence of any acute GI bleeding. She does not have melanotic stools. No blood in her urine. No other sign of ongoing bleeding. She does have a positive stool occult, which could be seen in the setting of C.diff. There is no evidence of active bleeding at this time that would contraindicate anticoagulation. Other indications for IVC filter would include pulmonary embolism, hemorrhagic stroke, failure of anticoagulation, uncontrolled active bleeding, spinal cord injury/recent surgery, or spinal hematoma, of which none of these indications are present in her case. Another potential indication would be high fall risk, but she is nonambulatory and has been since her last admission. She has not had any recent procedures that would contraindicate anticoagulation. I discussed the case with Dr. St and there is no obvious indication for IVC filter placement at this time, which the procedure itself comes with it's own risks as well that need to be considered. If she develops signs of active bleeding or other contraindications to anticoagulation as mentioned above, then please reach out for re-evaluation at that time. For now, we would not recommend proceeding with IVC filter placement without an indication and will sign off. (2) Anemia: Qualifiers: Anemia type: due to chronic kidney disease Chronic kidney disease stage: unspecified stage Qualified Code(s): N18.9 - Chronic kidney disease, unspecified; D63.1 - Anemia in chronic kidney disease Code(s): D64.9 - Anemia, unspecified Status: Acute (3) CVA (cerebral vascular accident): Code(s): I63.9 - Cerebral infarction, unspecified Status: Acute (4) C. difficile colitis: Onset Date: 2021 Code(s): A04.72 - Enterocolitis due to Clostridium difficile, not specified as recurrent Status: Acute History of Present Illness Consult details Consult date: 07/10/24 Reason for consult: other (IVC filter placement) Requesting physician: Elsy Tao APN-C Narrative: This is a 73-year-old woman with multiple medical problems, who we have been asked to see in surgical consultation for IVC filter placement. She was recently hospitalized for diverticulitis, C diff, an UTI, and was discharged on 06/28/2024 to [facility]. She was brought in on 07/02/2024 with altered mental status from the [facility]. She has been admitted with an acute CVA and found to have an extensive DVT in the right lower limb on lower extremity venous Dopplers on 07/05/2024. She was started on therapeutic dosed Lovenox and has been tolerating that for the past 5 days. In review of her labs, she has had chronic anemia that has been followed in actually received a blood transfusion when her hemoglobin drifted down during her last hospitalization. Her hemoglobin has since remained stable over the past 2 weeks ranging between 7.5-9. Yesterday, her anticoagulation was transitioned to a heparin infusion. She was supratherapeutic on both of her PTTs that were drawn after the heparin was started. On this morning's labs, her hemoglobin was found to be 6.3. She received 1 unit PRBCs. When asking the patient and nursing staff, they deny any visible blood in her stool, blood in her Lieja catheter, or other active bleeding. She has a fecal management system in place with dark brown stool noted. She had a stool occult ordered that was positive. Her hemoglobin came up to 9.0 after transfusion. Her Plavix and heparin were held this morning in the setting of the anemia. GI was consulted and recommended outpatient colonoscopy in a few weeks if patient agrees. She is now seen in consultation for evaluation of possible IVC filter placement. No evidence of pulmonary embolism. Review of Systems Review of Systems: All systems reviewed & are unremarkable except as noted in HPI and below PMFSH Past Medical History Medical History Acute on chronic anemia Occult blood in stools Edema Hypokalemia CVA (cerebral vascular accident) Urinary retention Chronic obstructive pulmonary disease Chronic kidney disease C. difficile colitis (2021) Megaloblastic anemia Hiatal hernia Anxiety Postmenopausal Hypothyroidism Gout Sleep apnea intolerant of CPAP Diverticulitis Hypertension Surgical History Surgical History History of partial hysterectomy History of appendectomy incidental appendectomy during open cholecystectomy History of tonsillectomy and adenoidectomy History of cholecystectomy Family History Family History Other Family history of malignant neoplasm Social History Social History Social History: Surrogate medical decision maker: Jeremiah Tom, arturo ([phone]). Code status: Do not resuscitate. Smoking packs per day: 1 Smoking cigarettes per day: 20.0 Years smoked: 5 Smoking pack-years: 5.00 Smoking status: Never smoker Tobacco type: cigarettes Alcohol intake: never Substance use: never Substance use type: does not use Do You Feel Safe in your Home?: Yes Lack of Transportation: YES Lack of Food: Never True Current Housing: I Have Housing Concerned About Future Housing: No Difficulty Paying Gas/Electric Bills: No Difficulty Paying for Meds: No Currently Unemployed: No Education: High School Diploma/GED Difficulty w/ Childcare or Family Care: No Additional living arrangements comments: since 1987. She had a daughter who of complications of juvenile diabetes at the age of 40. Her son is still living. Ambulates with a walker. 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 Spiritual care concerns: No Meds Home Medications and Allergies Home Medications ?Medication ?Instructions ?Recorded ?Confirmed ?Type esomeprazole magnesium 40 mg 1 cap PO 2XD 11/23/21 07/02/24 History capsule,delayed release (Nexium) levothyroxine 75 mcg tablet 1 tablet PO DAILY 11/23/21 07/02/24 History (Synthroid) metoprolol tartrate 50 mg tablet 1 tablet PO BID 11/23/21 07/02/24 History (Lopressor) montelukast 10 mg tablet 1 tablet PO HS 11/23/21 07/02/24 History (Singulair) trazodone 100 mg tablet 100 mg PO HS 11/23/21 07/02/24 History meclizine 12.5 mg tablet 12.5 mg PO TID PRN dizziness #60 05/18/24 07/02/24 Rx tabs potassium chloride 10 mEq 1 tablet PO DAILY #30 tabs 05/18/24 07/02/24 Rx tablet,extended release (Klor-Con) alprazolam 1 mg tablet 1 mg PO QID PRN anxiety #5 tabs 06/28/24 07/02/24 Rx fidaxomicin 200 mg tablet (Dificid) 200 mg PO Q12HR #27 tabs 06/28/24 07/02/24 Rx folic acid 1 mg tablet 1 mg PO DAILY #30 tabs 06/28/24 07/02/24 Rx tramadol 50 mg tablet 50 mg PO DAILY PRN pain #5 tabs 06/28/24 07/02/24 Rx tramadol 50 mg tablet 100 mg (2 x 50 mg) PO HS PRN pain 06/28/24 07/02/24 Rx #5 tabs bisacodyl 10 mg rectal suppository 10 mg RECTAL DAILY PRN constipation 07/02/24 07/02/24 History cyanocobalamin (vitamin B-12) 1,000 mcg PO DAILY 07/02/24 07/02/24 History 1,000 mcg tablet (Vitamin B-12) levofloxacin 750 mg tablet 750 mg PO DAILY 07/02/24 07/02/24 History magnesium citrate (Citrate of 296 ml PO DAILY PRN constipation 07/02/24 07/02/24 History Magnesia oral) magnesium hydroxide 400 mg/5 mL 30 ml PO HS PRN constipation 07/02/24 07/02/24 History oral suspension (Dulcolax (magnesium hydroxide)) metronidazole 500 mg tablet 500 mg PO TID 07/02/24 07/02/24 History olmesartan 20 mg tablet (Benicar) 40 mg PO DAILY 07/02/24 07/02/24 History sodium phosphates 19 gram-7 118 ml RECTAL DAILY PRN 07/02/24 07/02/24 History gram/118 mL enema (Enema) constipation vancomycin 125 mg capsule 125 mg PO QID 07/02/24 07/02/24 History (Vancocin) Allergies Allergy/AdvReac Type Severity Reaction Status Date / Time No Known Allergies Allergy Mild Verified 07/02/24 21:56 Vital Signs Vital Signs - 24 hr 07/09/24 16:00 07/09/24 16:00 07/09/24 16:23 Temperature 97.7 F Pulse Rate 110 H 99 110 H Respiratory Rate 22 H 22 H Blood Pressure 124/64 Pulse Oximetry 98 98 Oxygen Delivery Room Air 07/09/24 18:00 07/09/24 20:00 07/09/24 20:00 Temperature Pulse Rate 113 H 98 98 Respiratory Rate 22 H Blood Pressure Pulse Oximetry 98 Oxygen Delivery Room Air 07/09/24 20:54 07/09/24 21:04 07/09/24 21:45 Temperature 98.2 F Pulse Rate 87 107 H 85 Respiratory Rate 20 Blood Pressure 130/60 Pulse Oximetry 91 Oxygen Delivery 07/09/24 23:49 07/09/24 23:50 07/09/24 23:52 Temperature 97.7 F Pulse Rate 79 79 84 Respiratory Rate 20 20 Blood Pressure 133/77 Pulse Oximetry 91 97 Oxygen Delivery Room Air 07/10/24 02:00 07/10/24 04:00 07/10/24 04:00 Temperature 98.2 F Pulse Rate 88 93 82 Respiratory Rate 20 20 Blood Pressure 154/75 H Pulse Oximetry 96 96 Oxygen Delivery Room Air 07/10/24 04:00 07/10/24 05:31 07/10/24 05:38 Temperature 97.8 F 97.8 F Pulse Rate 82 92 86 Respiratory Rate 20 18 Blood Pressure 146/79 H 150/60 H Pulse Oximetry 99 98 Oxygen Delivery 07/10/24 06:00 07/10/24 06:46 07/10/24 08:00 Temperature 97.4 F L 97.8 F Pulse Rate 85 82 79 Respiratory Rate 18 22 H Blood Pressure 111/84 122/59 L Pulse Oximetry 99 99 Oxygen Delivery 07/10/24 08:00 07/10/24 08:00 07/10/24 08:53 Temperature 97.8 F Pulse Rate 102 H 103 H 101 H Respiratory Rate 18 18 Blood Pressure 138/67 Pulse Oximetry 99 99 Oxygen Delivery Room Air 07/10/24 08:57 07/10/24 10:00 Temperature Pulse Rate 102 H 103 H Respiratory Rate Blood Pressure Pulse Oximetry Oxygen Delivery Exam Const: General: comfortable and no acute distress Nutritional Appearance: obese Orientation/consciousness: patient oriented x3 HENMT: Head: normocephalic and atraumatic Ears: hearing grossly normal bilaterally Mouth: Yes moist mucous membranes Eyes: General: appearance normal, both eyes and all related structures Pupils: Equal, round and reactive pupils present Neck: Neck: normal visual inspection and full ROM Resp: Effort & Inspection: no respiratory distress Auscultation: clear to auscultation bilaterally Cardio: Rate: regular rate Rhythm: regular rhythm Peripheral pulses: Peripheral pulses 2+ throughout GI: Inspection: non-distended, Pannus present and obesity GI Palp: Yes Soft to palpation, No Tenderness to palpation present (GI), No Guarding due to palpation present (GI) and No Rebound tenderness present Auscultation: normal bowel sounds Other: FMS with dark brown liquid stool Urinary Catheter: Urinary Catheter: patent and draining and urine clear Skin: General skin exam: normal color Neuro: General: moves all extremities and no focal motor deficits Speech: normal speech Motor exam (neuro): 5/5 motor strength present throughout Extrem: General: normal to inspection and edema bilateral (bilateral 3+ pitting edema of lower extremities) Psych: Mental Status: mental status grossly normal Attitude: cooperative Insight: Good insight present (Psych) Judgement: Good judgement present (Psych) Results Labs 07/10/24 09:08 07/10/24 09:08 Labs: Abnormal lab results 07/08/24 07/09/24 07/09/24 Range/Units 15:49 08:59 17:03 RBC (4.2-5.4) M/mm3 Hgb (12.0-15.0) g/dL Hct (37.0-47.0) % MCV (80-100) fl MCHC (32-36) g/dl RDW (11.5-14.5) % Immature Gran % (Auto) (0-0.5) % Lymph % (Auto) (18.3-44.2) % [place] % (Auto) (2.6-8.5) % Lymph # (Auto) (0.9-3.2) K/mm3 [place] # (Auto) (0.1-0.6) K/mm3 Abs Immat Gran (auto) (0.00-0.031) K/mm3 APTT > 200.0 H* (22.3-36.8) Seconds Chloride (98-107) mmol/L Carbon Dioxide (22-30) mmol/L Creatinine (0.7-1.0) mg/dL Estimated GFR (59 - ) Calcium (8.4-10.2) mg/dL Ferritin 392.00 H (11.1-264) ng/mL AST (14-36) U/L Total Protein (6.3-8.2) g/dL Albumin (3.5-5.1) g/dL Stl Occult Blood (IFOB) (N) Crossmatch See Detail 07/10/24 07/10/24 07/10/24 Range/Units 03:54 09:04 09:08 RBC 2.01 L 2.92 L (4.2-5.4) M/mm3 Hgb 6.3 L* 9.0 L (12.0-15.0) g/dL Hct 20.6 L* 29.0 L (37.0-47.0) % MCV 102.5 H (80-100) fl MCHC 30.6 L 31.0 L (32-36) g/dl RDW 20.8 H 19.9 H (11.5-14.5) % Immature Gran % (Auto) 2.0 H (0-0.5) % Lymph % (Auto) 12.1 L (18.3-44.2) % [place] % (Auto) 14.5 H (2.6-8.5) % Lymph # (Auto) 0.55 L (0.9-3.2) K/mm3 [place] # (Auto) 0.7 H (0.1-0.6) K/mm3 Abs Immat Gran (auto) 0.09 H (0.00-0.031) K/mm3 APTT > 200.0 H* 42.6 H (22.3-36.8) Seconds Chloride 115 H (98-107) mmol/L Carbon Dioxide 19 L (22-30) mmol/L Creatinine 1.19 H (0.7-1.0) mg/dL Estimated GFR 44 L (59 - ) Calcium 7.3 L (8.4-10.2) mg/dL Ferritin (11.1-264) ng/mL AST 76 H (14-36) U/L Total Protein 5.0 L (6.3-8.2) g/dL Albumin 2.4 L (3.5-5.1) g/dL Stl Occult Blood (IFOB) Positive H (N) Crossmatch Diabetes panel 07/10/24 Range/Units 09:08 Sodium 142 (137-145) mmol/L Potassium 4.1 (3.4-5.0) mmol/L Chloride 115 H (98-107) mmol/L Carbon Dioxide 19 L (22-30) mmol/L BUN 15 (7-17) mg/dL Creatinine 1.19 H (0.7-1.0) mg/dL Glucose 99 (65-110) mg/dL Calcium 7.3 L (8.4-10.2) mg/dL AST 76 H (14-36) U/L ALT 18 (6-35) U/L Alkaline Phosphatase 107 (38-126) U/L Total Protein 5.0 L (6.3-8.2) g/dL Albumin 2.4 L (3.5-5.1) g/dL Calcium panel 07/10/24 Range/Units 09:08 Calcium 7.3 L (8.4-10.2) mg/dL Albumin 2.4 L (3.5-5.1) g/dL Pituitary panel 07/10/24 Range/Units 09:08 Sodium 142 (137-145) mmol/L Potassium 4.1 (3.4-5.0) mmol/L Chloride 115 H (98-107) mmol/L Carbon Dioxide 19 L (22-30) mmol/L BUN 15 (7-17) mg/dL Creatinine 1.19 H (0.7-1.0) mg/dL Glucose 99 (65-110) mg/dL Calcium 7.3 L (8.4-10.2) mg/dL Adrenal panel 07/10/24 Range/Units 09:08 Sodium 142 (137-145) mmol/L Potassium 4.1 (3.4-5.0) mmol/L Chloride 115 H (98-107) mmol/L Carbon Dioxide 19 L (22-30) mmol/L BUN 15 (7-17) mg/dL Creatinine 1.19 H (0.7-1.0) mg/dL Glucose 99 (65-110) mg/dL Calcium 7.3 L (8.4-10.2) mg/dL Total Bilirubin 0.7 (0.2-1.3) mg/dL AST 76 H (14-36) U/L ALT 18 (6-35) U/L Alkaline Phosphatase 107 (38-126) U/L Total Protein 5.0 L (6.3-8.2) g/dL Albumin 2.4 L (3.5-5.1) g/dL All other labs normal. Imaging Additional studies: ITS Impressions Chest X-Ray 07/02/24 13:16 IMPRESSION: 1. Small pleural effusions. 2. Airspace opacities at the lung bases, consistent with atelectasis or less likely pneumonia. Head CT 07/02/24 14:34 IMPRESSION: 1. Normal aging brain. Abdomen/Pelvis CT 07/02/24 14:36 IMPRESSION: 1. Persistent small collection of extra luminal gas in the left lower quadrant anterior abdominal wall immediately adjacent to a region of inflammatory stranding surrounding the descending colon consistent with diverticulitis. No abscess or more remote free intraperineal gas or fluid. 2. Persistent moderate-sized bilateral posterior layering pleural effusions with dependent compressive atelectasis in the visualized lower lobes. Brain MRI 07/04/24 11:30 IMPRESSION: 1. 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 2. 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 3. Diffuse pachymeningeal enhancement. This finding is most commonly secondary to prior lumbar puncture or spine procedure. ADDENDUM: 07/04/24 1216 The contrast volume was 20 mL MultiHance. Venous Doppler Study 07/05/24 14:17 IMPRESSION: 1. Extensive deep vein thrombosis in right lower limb. I called this result to Elsy Tao.
[2024-07-10] MEDS: APIXABAN 5 MG TABLET 10 MG PO (20:28)
[2024-07-10] MEDS: MONTELUKAST SODIUM 10 MG TABLET PO (20:28)
[2024-07-10] MEDS: ALPRAZolam (*CRX) 0.5 MG TABLET 1 MG PO (22:31)
[2024-07-11] VITALS (17 sets, daily range): BP systolic 105–151; BP diastolic 53–81; PULSE 64–102; RESP 16–24; TEMP 36.2–36.8; O2SAT 95–99
[2024-07-11] MEDS: CENTRAL LINE FLUSH 10 ML IV PUSH ×3 (05:39→21:55)
[2024-07-11] MEDS: LEVOTHYROXINE SODIUM 75 MCG TABLET PO (05:39)
[2024-07-11] MEDS: metroNIDAZOLE 500 MG TABLET PO ×3 (05:39→21:49)
[2024-07-11 06:12] LABS: Basophils Percent Auto 0.2 % (0.2-1.2); Eosinophils Absolute Auto 0.1 K/mm3 (0-0.3); Hematocrit 27.4 % (37.0-47.0); Hemoglobin 8.6 g/dL (12.0-15.0); Immature Granulocyte Absolute 0.06 K/mm3 (0.00-0.031); Immature Granulocyte Percent A 1.3 % (0-0.5); Lymphocytes Absolute Auto 0.77 K/mm3 (0.9-3.2); Lymphocytes Percent Auto 16.1 % (18.3-44.2); Mean Corpuscular HGB Conc 31.4 g/dl (32-36); Mean Corpuscular Hemoglobin 30.9 pg (26-34); Mean Corpuscular Volume 98.6 fl (80-100); Mean Platelet Volume 10.5 fl (7.4-10.4); Monocytes Absolute Auto 0.6 K/mm3 (0.1-0.6); Monocytes Percent Auto 11.7 % (2.6-8.5); Neutrophils Absolute Auto 3.3 K/mm3 (1.3-6.7); Neutrophils Percent Auto 69.7 % (45.5-73.1); Nucleated Red Blood Cells Perc 0.4 % (0.0-0.2); Platelet Count Result 214 k/mm3 (150-375); Red Blood Count 2.78 M/mm3 (4.2-5.4); Red Cell Distribution Width 20.7 % (11.5-14.5); White Blood Count 4.8 K/mm3 (4.5-10.0)
[2024-07-11 06:31] LABS: Alanine Aminotransferase 18 U/L (6-35); Albumin Level 2.2 g/dL (3.5-5.1); Alkaline Phosphatase 110 U/L (38-126); Anion Gap 7 mmol/L (4-12); Aspartate Amino Transferase 71 U/L (14-36); Bilirubin,Total 0.5 mg/dL (0.2-1.3); Blood Urea Nitrogen 16 mg/dL (7-17); Calcium 7.5 mg/dL (8.4-10.2); Carbon Dioxide 19 mmol/L (22-30); Chloride 114 mmol/L (98-107); Estimated CRCL calculation 41 ml/min; Estimated Glomerular Filt Rate 43; Glucose 70 mg/dL (65-110); Magnesium 1.9 mg/dL (1.6-2.3); Potassium 4.3 mmol/L (3.4-5.0); Sodium 140 mmol/L (137-145)
[2024-07-11] MEDS: PANTOPRAZOLE SODIUM IV 40 MG VIAL IV PUSH ×2 (08:05→21:49)
[2024-07-11] MEDS: ATORVASTATIN 40 MG TABLET 80 MG PO (08:05)
[2024-07-11] MEDS: OLMESARTAN MEDOXOMIL 20 MG TABLET 40 MG PO (08:05)
[2024-07-11] MEDS: VANCOMYCIN HCL 125 MG ORAL CAPSULE PO ×4 (08:06→21:49)
[2024-07-11] MEDS: METOPROLOL TARTRATE 50 MG TAB PO ×2 (08:06→21:49)
[2024-07-11] MEDS: ASPIRIN 325 MG TABLET PO (08:06)
[2024-07-11] MEDS: levETIRAcetam 500 MG TABLET PO ×2 (08:06→21:48)
[2024-07-11] MEDS: FOLIC ACID 1 MG TABLET PO (08:06)
[2024-07-11] MEDS: APIXABAN 5 MG TABLET 10 MG PO ×2 (08:06→21:48)
[2024-07-11] MEDS: MAGNESIUM OXIDE 400 MG TABLET PO ×2 (08:06→17:14)
--- NOTE | 2024-07-11 10:26 | P.PNIM_ITS ---
Progress Note: A&P Assessment and Plan (1) Seizure: Code(s): R56.9 - Unspecified convulsions Status: Acute Assessment and Plan: 07/11 * New onset * CT of the head was negative * MRI showing acute infarct in the left frontoparietal lobe in deep white matter * EEG findings abnormal read, cannot rule out seizure activity * Continue atorvastatin, Plavix * Will hold baby aspirin considering patient is on Eliquis * Continue Keppra * Continue seizure precautions * Cardiac telemetry stable, we will go ahead and discontinue continuous telemetry * Move out of IMU to regular med surge floor (2) Post-ictal confusion: Code(s): F05 - Delirium due to known physiological condition Status: Resolved Assessment and Plan: 07/11/24 * Resolved * Currently alert oriented x3 (3) Acute DVT (deep venous thrombosis): Code(s): I82.409 - Acute embolism and thrombosis of unspecified deep veins of unspecified lower extremity Status: Acute Assessment and Plan: 07/11/24 * Venous Doppler showing extensive right lower extremity DVT * Patient was started on Lovenox and then switched to heparin infusion on 07/09/2024. She later developed dark tarry stools and a drop in her hemoglobin requiring blood transfusion. Heparin drip was placed on hold for 24 hours and then she was restarted on Eliquis 10 mg daily x7 days--standard protocol * General surgery was consulted for IVC filter however she is not a candidate at this time due to her other comorbidities * Continue Eliquis as stated above (4) CVA (cerebral vascular accident): Code(s): I63.9 - Cerebral infarction, unspecified Status: Acute Assessment and Plan: 07/11/24: * MRA of brain showing acute infarct in the left frontoparietal lobe in the deep white matter * Left lower extremity weakness * PT and OT ordered * Continue atorvastatin, Plavix * Aspirin currently on hold as she is on Eliquis for DVT prophylaxis * A Neurology following (5) Occult blood in stools: Code(s): R19.5 - Other fecal abnormalities Status: Acute Assessment and Plan: 07/11/24 * Patient was occult blood positive on 07/09/2024 * She was given 1 unit of blood * H&H is stable * GI recommending outpatient colonoscopy considering her comorbidities * Recently diagnosed with diverticulitis and C diff colitis (6) Diverticulitis of intestine with perforation without abscess: Qualifiers: Diverticulitis bleeding: without bleeding Diverticulitis site: large intestine Qualified Code(s): K57.20 - Diverticulitis of large intestine with perforation and abscess without bleeding Code(s): K57.80 - Diverticulitis of intestine, part unspecified, with perforation and abscess without bleeding Status: Acute Assessment and Plan: 07/11/24 * Failed Dificid * Continue oral vancomycin (7) Urinary retention: Code(s): R33.9 - Retention of urine, unspecified Status: Acute Assessment and Plan: 07/11/24: * Patient had acute urinary retention requiring Leija on 07/03/24 * Urology was consulted * Patient failed voiding trial * Patient will keep catheter and repeat voiding trial in 1-2 weeks on an outpatient basis with Urology (8) Hypokalemia: Code(s): E87.6 - Hypokalemia Status: Acute Assessment and Plan: 07/11/24: * Potassium 4.3 * No need for replacement * Resolved (9) C. difficile diarrhea: Code(s): A04.72 - Enterocolitis due to Clostridium difficile, not specified as recurrent Status: Acute Assessment and Plan: 07/11/24 * Continue vancomycin pulse dosing * Pulse taper vanc dose as follows: 125 mg orally 4 times daily for 10 to 14 days, then 125 mg orally twice daily for 7 days, then 125 mg orally once daily for 7 days, then 125 mg orally every 2 to 3 days for 2 to 8 weeks (10) Hypothyroidism: Qualifiers: Hypothyroidism type: unspecified Qualified Code(s): E03.9 - Hypothyroidism, unspecified Code(s): E03.9 - Hypothyroidism, unspecified Status: Chronic Assessment and Plan: 07/11/24 * Continue Synthroid (11) Hypertension: Qualifiers: Hypertension type: primary hypertension Qualified Code(s): I10 - Essential (primary) hypertension Code(s): I10 - Essential (primary) hypertension Status: Chronic Assessment and Plan: 07/11/25 * Blood pressure ranging 105/ 81 to 146/73 * Continue metoprolol, Benicar and monitor. (12) Anemia: Qualifiers: Anemia type: due to chronic kidney disease Chronic kidney disease stage: unspecified stage Qualified Code(s): N18.9 - Chronic kidney disease, unspecified; D63.1 - Anemia in chronic kidney disease Code(s): D64.9 - Anemia, unspecified Status: Acute Assessment and Plan: 07/11/24 * Continue to transfuse for hemoglobin less than 7 * Patient receive 1 unit of blood this admission * Currently on Eliquis, Plavix * Will hold aspirin * Continue to trend (13) Upper respiratory infection: Code(s): J06.9 - Acute upper respiratory infection, unspecified Status: Acute Assessment and Plan: 07/11/24 * Patient reported cold-like symptoms with a nonproductive cough and wheezing * Will check for influenza a and B, RSV, COVID * Start DuoNebs q.6 hour * Will obtain chest x-ray * Incentive spirometry while awake * Pep therapy with cornet flutter valve Time Spent With Patient Time with patient: Greater than 35 minutes Subjective Date/time seen: 07/11/24 10:26 Interval history: Interval history: This is a 73-year-old female who presented to the hospital on 07/02/[address] [facility] for evaluation of altered mental status. While in the ED she had a witnessed seizure for which she was given Ativan 2 mg and a loading dose of Keppra. Workup in the hospital included chest x-ray which showed small pleural effusions, airspace opacities in the lung bases consistent with atelectasis versus pneumonia. Head CT showed a normal aging brain. Abdomen/pelvis CT showed persistent small collection of extraluminal gas in the left lower quadrant anterior abdominal wall immediately adjacent to a region of inflammatory stranding surrounding the descending colon consistent with diverticulitis, persistent moderate-sized bilateral posterior layering pleural effusions with dependent compressive atelectasis in the lower lobes. Brain MRI showed acute infarct in the left frontoparietal deep white matter, subcortical increased T2 weighted signal intensity in the parietal and occipital lobes, diffuse pachymeningeal enhancement. EEG showed abnormal record due to the absence of a normal background rhythm and presence of excessive amount theta activity. Venous Doppler showed extensive deep vein thrombosis in the right lower limb. Initial labs showed a white blood cell count of 15.5, hemoglobin 10.2, anion gap 17, creatinine 1.45, EGFR 35, lactic acid 2.7> 2.3. UA showed 1+ urine protein, 1+ urine ketone, positive nitrate, trace leukocyte, 6-10 urine RBC. Toxic collagen screening was positive for urine opiates otherwise negative. Respiratory panel was negative. Blood cultures were obtained and negative on final read. Urine culture was obtained and negative on final read. Echocardiogram shown normal LV systolic function with an estimated EF of 60-65%, grade 1 diastolic dysfunction. Patient was initially started on a heparin infusion for DVT however H&H dropped on 07/10/24-6.3/20.6 requiring blood transfusion and heparin was held. She was occult blood positive. GI was consu lted however was deemed a poor candidate for endoscopic evaluation due to her multiple comorbidities and diverticulitis/recent C diff. and is recommending outpatient colonoscopy when more stable. General surgery was also consulted for IVC filter however they are holding off due to her multiple comorbidities as well, she was deemed not a candidate at this time. Patient was started on Eliquis on 07/10/2024. Patient also had urinary retention requiring Leija to be placed. She failed voiding trial and Urology was consulted. Urology will see patient in 2 weeks on an outpatient basis for another voiding trial. Subjective: Patient reporting cough and upper respiratory symptoms that developed in the last couple of days. Labs and imaging reviewed. Review of Systems Review of Systems: All systems reviewed & are unremarkable except as noted in HPI and below Exam Narrative: General: In no acute distress, well nourished Head: atraumatic, no encephalopathy Eyes: PERRLA, sclera clear ENT: moist mucous membranes, nasal passages clear Neck: supple, no JVD, no adenopathy, trachea midline Cardiac: Normal S1 and S2. No murmur, gallops or friction rubs, peripheral pulses intact. Respiratory: Wheezing noted bilaterally, no other adventitious lung sounds, nonproductive tight cough, currently on room air Gastrointestinal: soft, non-distended, non-tender, normoactive bowel sounds. : voiding without difficulty. Extremities: moves all extremities well, no edema Skin: clean, dry, intact. No wounds or lesions. Neuro: Alert and oriented x4, cranial nerves intact, no neuro deficits. Psych: normal mood, normal affect, interactive Objective Data Vital Signs Vital Signs: Vital Signs - 24 hr 07/10/24 12:00 07/10/24 12:00 07/10/24 12:00 Temperature 98.3 F Pulse Rate 103 H 108 H 102 H Respiratory Rate 18 24 H Blood Pressure 148/64 H Pulse Oximetry 99 98 Oxygen Delivery Room Air 07/10/24 14:00 07/10/24 16:00 07/10/24 16:00 Temperature 97.8 F Pulse Rate 76 71 72 Respiratory Rate 24 H 26 H Blood Pressure 126/56 L Pulse Oximetry 98 96 Oxygen Delivery Room Air 07/10/24 16:00 07/10/24 18:00 07/10/24 19:46 Temperature 98.2 F Pulse Rate 75 76 76 Respiratory Rate 18 Blood Pressure 141/67 H Pulse Oximetry 98 Oxygen Delivery 07/10/24 19:50 07/10/24 20:00 07/10/24 20:29 Temperature Pulse Rate 87 69 80 Respiratory Rate 17 Blood Pressure Pulse Oximetry 98 Oxygen Delivery Room Air 07/10/24 22:00 07/10/24 23:30 07/10/24 23:40 Temperature 98.3 F Pulse Rate 76 67 76 Respiratory Rate 18 17 Blood Pressure 119/64 Pulse Oximetry 93 98 Oxygen Delivery Room Air 07/11/24 00:00 07/11/24 02:00 07/11/24 03:55 Temperature Pulse Rate 67 64 69 Respiratory Rate 17 Blood Pressure Pulse Oximetry 98 Oxygen Delivery Room Air 07/11/24 04:00 07/11/24 04:27 07/11/24 06:00 Temperature 97.9 F Pulse Rate 70 77 86 Respiratory Rate 16 Blood Pressure 105/81 Pulse Oximetry 95 Oxygen Delivery 07/11/24 08:00 07/11/24 08:00 07/11/24 08:00 Temperature 98 F Pulse Rate 94 96 94 Respiratory Rate 24 H 24 H Blood Pressure 146/73 H Pulse Oximetry 99 99 Oxygen Delivery Room Air 07/11/24 08:06 Temperature Pulse Rate 96 Respiratory Rate Blood Pressure Pulse Oximetry Oxygen Delivery Intake/Output Intake/Output: Intake & Output 07/08/24 07/09/24 07/10/24 07/11/24 23:59 23:59 23:59 23:59 Intake Total 3069 1728 1368.4 640 Output Total 1350 950 550 400 Balance 1719 778 818.4 240 Meds/Results Medications: Active Medications Generic Name Dose Route Start Last Admin Trade Name Freq PRN Reason Stop Dose Admin Acetaminophen 650 mg 07/02/24 16:08 Acetaminophen 650 Mg Suppository RECTAL Q6H PRN Mild Pain (1-3) or Fever Alprazolam 1 mg 07/03/24 00:03 07/10/24 22:31 Alprazolam (*Crx) 0.5 Mg Tablet PO 1 mg QID PRN Administration anxiety Apixaban 10 mg 07/10/24 21:00 07/11/24 08:06 Apixaban 5 Mg Tablet PO 07/17/24 20:59 10 mg Q12HR SOLITARIO Administration Aspirin 325 mg 07/11/24 08:00 07/11/24 08:06 Aspirin 325 Mg Tablet PO 325 mg DAILY@0800 SOLITARIO Administration Atorvastatin Calcium 80 mg 07/04/24 21:00 07/11/24 08:05 Atorvastatin 40 Mg Tablet PO 80 mg DAILY SOLITARIO Administration Folic Acid 1 mg 07/03/24 09:00 07/11/24 08:06 Folic Acid 1 Mg Tablet PO 1 mg DAILY SOLITARIO Administration Levetiracetam 500 mg 07/03/24 12:30 07/11/24 08:06 Levetiracetam 500 Mg Tablet PO 500 mg Q12HR SOLITARIO Administration Levothyroxine Sodium 75 mcg 07/03/24 06:30 07/11/24 05:39 Levothyroxine Sodium 75 Mcg Tablet PO 75 mcg DAILY@0630 SOLITARIO Administration Lorazepam 1 mg 07/02/24 23:55 Lorazepam Inj (*Crx) 2 Mg/Ml Vial IV PUSH Q2H PRN Seizures Magnesium Oxide 400 mg 07/06/24 17:00 07/11/24 08:06 Magnesium Oxide 400 Mg Tablet PO 400 mg BID SOLITARIO Administration Metoprolol Tartrate 50 mg 07/03/24 09:00 07/11/24 08:06 Metoprolol Tartrate 50 Mg Tab PO 50 mg Q12HR SOLITARIO Administration Metronidazole 500 mg 07/06/24 22:00 07/11/24 05:39 Metronidazole 500 Mg Tablet PO 500 mg Q8HR SOLITARIO Administration Montelukast Sodium 10 mg 07/03/24 00:15 07/10/24 20:28 Montelukast Sodium 10 Mg Tablet PO 10 mg HS SOLITARIO Administration Olmesartan 40 mg 07/03/24 09:00 07/11/24 08:05 Olmesartan Medoxomil 20 Mg Tablet PO 40 mg DAILY SOLITARIO Administration Pantoprazole Sodium 40 mg 07/09/24 12:35 07/11/24 08:05 Pantoprazole Sodium Iv 40 Mg Vial IV PUSH 40 mg Q12HR SOLITARIO Administration Sodium Chloride 20 ml 07/04/24 16:15 Central Line Flush IV PUSH PRN PRN after blood draws Sodium Chloride 10 ml 07/04/24 16:15 Central Line Flush IV PUSH PRN PRN with TPN bag changes Sodium Chloride 10 ml 07/04/24 22:00 07/11/24 05:39 Central Line Flush IV PUSH 10 ml Q8HR SOLITARIO Administration Tramadol HCl 25 mg 07/07/24 00:00 07/10/24 22:30 Tramadol Hcl (*Crx) 25 Mg Tablet PO 25 mg Q4H PRN Administration Pain Rated 4-6 Vancomycin HCl 125 mg 07/09/24 17:00 07/11/24 08:06 Vancomycin Hcl 125 Mg Oral Capsule PO 125 mg QID SOLITARIO Administration Radiology Results: ITS Impressions Chest X-Ray 07/02/24 13:16 IMPRESSION: 1. Small pleural effusions. 2. Airspace opacities at the lung bases, consistent with atelectasis or less likely pneumonia. Head CT 07/02/24 14:34 IMPRESSION: 1. Normal aging brain. Abdomen/Pelvis CT 07/02/24 14:36 IMPRESSION: 1. Persistent small collection of extra luminal gas in the left lower quadrant anterior abdominal wall immediately adjacent to a region of inflammatory stranding surrounding the descending colon consistent with diverticulitis. No abscess or more remote free intraperineal gas or fluid. 2. Persistent moderate-sized bilateral posterior layering pleural effusions with dependent compressive atelectasis in the visualized lower lobes. Brain MRI 07/04/24 11:30 IMPRESSION: 1. 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 2. 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 3. Diffuse pachymeningeal enhancement. This finding is most commonly secondary to prior lumbar puncture or spine procedure. ADDENDUM: 07/04/24 1216 The contrast volume was 20 mL MultiHance. Venous Doppler Study 07/05/24 14:17 IMPRESSION: 1. Extensive deep vein thrombosis in right lower limb. I called this result to Elsy Tao. Labs Labs: Laboratory Results - last 24 hr 07/11/24 05:51 WBC 4.8 RBC 2.78 L Hgb 8.6 L Hct 27.4 L MCV 98.6 MCH 30.9 MCHC 31.4 L RDW 20.7 H Plt Count 214 MPV 10.5 H Immature Gran % (Auto) 1.3 H Neut % (Auto) 69.7 Lymph % (Auto) 16.1 L Sac % (Auto) 11.7 H Eos % (Auto) 1.0 Baso % (Auto) 0.2 Lymph # (Auto) 0.77 L Sac # (Auto) 0.6 Eos # (Auto) 0.1 Baso # (Auto) 0.0 Abs Immat Gran (auto) 0.06 H Absolute Neuts (auto) 3.3 Absolute Nucleated RBC 0.020 H Nucleated RBC % 0.4 H Sodium 140 Potassium 4.3 Chloride 114 H Carbon Dioxide 19 L Anion Gap 7 BUN 16 Creatinine 1.22 H Estim Creat Clear Calc 41 Estimated GFR 43 L Glucose 70 Calcium 7.5 L Magnesium 1.9 Total Bilirubin 0.5 AST 71 H ALT 18 Alkaline Phosphatase 110 Total Protein 5.0 L Albumin 2.2 L Quality VTE Prophylaxis VTE prophylaxis: pharmacologic ordered
[2024-07-11] MEDS: traMADol HCL (*CRX) 25 MG TABLET PO (13:29)
--- NOTE | 2024-07-11 15:04 | PCPTNOTE ---
Attempted to see patient for PT, however patient refused due to 10/10 back pain. Per RN patient unable to get anymore pain medication at this time.
[2024-07-11 17:24] LABS: Influenza A QL RT-PCR Positive (Negative); Influenza B QL RT-PCR Negative (Negative); RSV RNA, RT-PCR Negative (Negative); SARS-CoV-2 RNA PCR Negative (Negative)
[2024-07-11] MEDS: SODIUM BICARBONATE TAB 650 MG TABLET PO (17:37)
--- NOTE | 2024-07-11 18:08 | PC.NURSE ---
This RN attempted to reach MRET Almazan regarding influenza A + results. Voicemail left with no return call received. RN notified Lily Paz NP ([facility]) of positive results. New orders received and entered by this RN
[2024-07-11] MEDS: IPRATROPIUM 0.5 MG/ALBUTEROL SULFATE 2.5 MG AMPUL.NEB 3 ML INHALATION (20:28)
[2024-07-11] MEDS: ALPRAZolam (*CRX) 0.5 MG TABLET 1 MG PO (21:47)
[2024-07-11] MEDS: guaiFENesin 12 HR 600 MG TABCR 1200 MG PO (21:48)
[2024-07-11] MEDS: OSELTAMIVIR PHOSPHATE 30 MG CAPSULE PO (21:49)
[2024-07-11] MEDS: MONTELUKAST SODIUM 10 MG TABLET PO (21:49)
[2024-07-11] MEDS: traZODone HCL 50 MG TABLET 100 MG PO (21:49)
[2024-07-11] MEDS: traMADol HCL (*CRX) 50 MG TABLET 100 MG PO (21:56)
[2024-07-12] VITALS (11 sets, daily range): BP systolic 125–129; BP diastolic 63–69; PULSE 80–91; RESP 16–20; TEMP 36.6; O2SAT 95–99
[2024-07-12] MEDS: IPRATROPIUM 0.5 MG/ALBUTEROL SULFATE 2.5 MG AMPUL.NEB 3 ML INHALATION ×3 (02:00→13:58)
[2024-07-12] MEDS: metroNIDAZOLE 500 MG TABLET PO ×2 (06:49→13:18)
[2024-07-12] MEDS: LEVOTHYROXINE SODIUM 75 MCG TABLET PO (06:49)
[2024-07-12] MEDS: CENTRAL LINE FLUSH 10 ML IV PUSH ×3 (06:49→22:21)
[2024-07-12 07:08] LABS: Basophils Percent Auto 0.2 % (0.2-1.2); Eosinophils Percent Auto 0.2 % (0-4.4); Hematocrit 25.7 % (37.0-47.0); Hemoglobin 8.2 g/dL (12.0-15.0); Immature Granulocyte Absolute 0.05 K/mm3 (0.00-0.031); Immature Granulocyte Percent A 1.2 % (0-0.5); Lymphocytes Absolute Auto 0.96 K/mm3 (0.9-3.2); Lymphocytes Percent Auto 22.7 % (18.3-44.2); Mean Corpuscular HGB Conc 31.9 g/dl (32-36); Mean Corpuscular Hemoglobin 31.5 pg (26-34); Mean Corpuscular Volume 98.8 fl (80-100); Mean Platelet Volume 10.6 fl (7.4-10.4); Monocytes Absolute Auto 0.5 K/mm3 (0.1-0.6); Monocytes Percent Auto 12.5 % (2.6-8.5); Neutrophils Absolute Auto 2.7 K/mm3 (1.3-6.7); Neutrophils Percent Auto 63.2 % (45.5-73.1); Nucleated Red Blood Cells Perc 0.7 % (0.0-0.2); Platelet Count Result 209 k/mm3 (150-375); Red Cell Distribution Width 20.7 % (11.5-14.5); White Blood Count 4.2 K/mm3 (4.5-10.0)
--- NOTE | 2024-07-12 07:17 | P.PNIM_ITS ---
Progress Note: A&P Assessment and Plan (1) Seizure: Code(s): R56.9 - Unspecified convulsions Status: Acute Assessment and Plan: 07/12 * New onset * CT of the head was negative * MRI showing acute infarct in the left frontoparietal lobe in deep white matter * EEG findings abnormal read, cannot rule out seizure activity * Continue atorvastatin, Plavix * Will hold baby aspirin considering patient is on Eliquis * Continue Keppra * Continue seizure precautions * Cardiac telemetry stable, we will go ahead and discontinue continuous telemetry * Move out of IMU to regular med surge floor (2) Post-ictal confusion: Code(s): F05 - Delirium due to known physiological condition Status: Resolved Assessment and Plan: 07/11/24 * Resolved * Currently alert oriented x3 (3) Acute DVT (deep venous thrombosis): Code(s): I82.409 - Acute embolism and thrombosis of unspecified deep veins of unspecified lower extremity Status: Acute Assessment and Plan: 07/05 Venous Doppler showing extensive right lower extremity DVT * Patient was started on therapeutic Lovenox 07/05-07/09, heparin drip 07/10 but was supratherapeutic, and then Eliquis 10mg BID. Discussed with pharmacy and she has been treated for 7 days, so can decrease eliquis to 5mg BID. * During admission she has had dark tarry stools and a drop in her hemoglobin requiring blood transfusion. Heparin drip was placed on hold for 24 hours * General surgery was consulted for IVC filter however she is not a candidate at this time due to her other comorbidities * Continue Eliquis 5mg BID as stated above * Has signficant lower extremity edema (4) CVA (cerebral vascular accident): Code(s): I63.9 - Cerebral infarction, unspecified Status: Acute Assessment and Plan: 07/12/24: * MRA of brain showing acute infarct in the left frontoparietal lobe in the deep white matter * Left lower extremity weakness * PT and OT ordered * Continue atorvastatin, Plavix * Aspirin currently on hold as she is on Eliquis for DVT prophylaxis * A Neurology following (5) Occult blood in stools: Code(s): R19.5 - Other fecal abnormalities Status: Acute Assessment and Plan: 07/12/24 * Patient was occult blood positive on 07/09/2024 * She was given 1 unit of blood * H&H is stable * GI recommending outpatient colonoscopy considering her comorbidities * Recently diagnosed with diverticulitis and C diff colitis (6) Diverticulitis of intestine with perforation without abscess: Qualifiers: Diverticulitis bleeding: without bleeding Diverticulitis site: large intestine Qualified Code(s): K57.20 - Diverticulitis of large intestine with perforation and abscess without bleeding Code(s): K57.80 - Diverticulitis of intestine, part unspecified, with perforation and abscess without bleeding Status: Acute Assessment and Plan: 07/12/24 * Failed Dificid * Continue oral vancomycin, also on flagyl * Still having watery stools (7) Urinary retention: Code(s): R33.9 - Retention of urine, unspecified Status: Acute Assessment and Plan: 07/12/24: * Patient had acute urinary retention requiring Leija on 07/03/24 * Urology was consulted * Patient failed voiding trial * Patient will keep catheter and repeat voiding trial in 1-2 weeks on an outpatient basis with Urology (8) Hypokalemia: Code(s): E87.6 - Hypokalemia Status: Acute Assessment and Plan: 07/12/24: * Potassium 3.8 * No need for replacement * Follow BMP (9) C. difficile diarrhea: Code(s): A04.72 - Enterocolitis due to Clostridium difficile, not specified as recurrent Status: Acute Assessment and Plan: 07/12/24 * Stop Flagyl * Continue vancomycin pulse dosing * Pulse taper vanc dose as follows: 125 mg orally 4 times daily for 10 to 14 days (07/09-07/19, then 125 mg orally twice daily for 7 days, then 125 mg orally once daily for 7 days, then 125 mg orally every 2 to 3 days for 2 to 8 weeks (10) Hypothyroidism: Qualifiers: Hypothyroidism type: unspecified Qualified Code(s): E03.9 - Hypothyroidism, unspecified Code(s): E03.9 - Hypothyroidism, unspecified Status: Chronic Assessment and Plan: * Continue Synthroid (11) Hypertension: Qualifiers: Hypertension type: primary hypertension Qualified Code(s): I10 - Esse ntial (primary) hypertension Code(s): I10 - Essential (primary) hypertension Status: Chronic Assessment and Plan: Blood pressure ranging 105/ 81 to 154/75 during admission. Was elevated to 195/130 in the ER. * Continue metoprolol, Benicar and monitor. (12) Anemia: Qualifiers: Anemia type: due to chronic kidney disease Chronic kidney disease stag e: unspecified stage Qualified Code(s): N18.9 - Chronic kidney disease, unspecified; D63.1 - Anemia in chronic kidney disease Code(s): D64.9 - Anemia, unspecified Status: Acute Assessment and Plan: H&H 8.07/23 07/12 * Continue to transfuse for hemoglobin less than 7 * Patient receive 1 unit of blood this admission * Currently on Eliquis, Plavix * Will hold aspirin * Continue to trend (13) Upper respiratory infection: Code(s): J06.9 - Acute upper respiratory infection, unspecified Status: Acute Assessment and Plan: Patient reported cold-like symptoms with a nonproductive cough and wheezing. Influenza positive 07/11 Chest X-ray 07/11 showed: 1. Improved airspace opacities at left lung base, consistent with atelectasis versus pneumonia. 2. Improved small left pleural effusion. * Start DuoNebs q.6 hour * Treatment of flu as noted * Incentive spirometry while awake * Pep therapy with cornet flutter valve (14) Influenza A: Code(s): J10.1 - Influenza due to other identified influenza virus with other respiratory manifestations Status: Acute Assessment and Plan: Influenza A positive --Continue Tamiflu 30mg q12 for renal function, creatinine clearance 38 Time Spent With Patient Time: 58 minutes Subjective Date/time seen: 07/12/24 07:17 Interval history: Still having watery stools in rectal tube, but output decreasing, 100ml or less a day. Urine output dark yellow Blood count about the same, trending down slightly. Not able to scope for 4-6 weeks per GI Now med-surg, waiting for a bed Review of Systems Review of Systems: All systems reviewed & are unremarkable except as noted in HPI and below Exam Narrative: General: In no acute distress, well nourished Head: atraumatic, no encephalopathy Eyes: PERRLA, sclera clear ENT: moist mucous membranes, nasal passages clear Neck: supple, no JVD, no adenopathy, trachea midline Cardiac: Normal S1 and S2. No murmur, gallops or friction rubs, peripheral pulses intact. Respiratory: Wheezing noted bilaterally, no other adventitious lung sounds, nonproductive tight cough, currently on room air Gastrointestinal: soft, non-distended, non-tender, normoactive bowel sounds. : voiding without difficulty. Extremities: moves all extremities well, no edema Skin: clean, dry, intact. No wounds or lesions. Neuro: Alert and oriented x4, cranial nerves intact, no neuro deficits. Psych: normal mood, normal affect, interactive Objective Data Vital Signs Vital Signs: Vital Signs - 24 hr 07/11/24 08:00 07/11/24 08:00 07/11/24 08:00 Temperature 98 F Pulse Rate 94 96 94 Respiratory Rate 24 H 24 H Blood Pressure 146/73 H Pulse Oximetry 99 99 Oxygen Delivery Room Air 07/11/24 08:06 07/11/24 10:00 07/11/24 12:16 Temperature 98.3 F Pulse Rate 96 75 72 Respiratory Rate 18 Blood Pressure 116/53 L Pulse Oximetry 99 Oxygen Delivery 07/11/24 16:00 07/11/24 20:00 07/11/24 20:10 Temperature 97.2 F L 97.6 F Pulse Rate 102 H 82 95 Respiratory Rate 22 H 20 20 Blood Pressure 151/76 H 119/59 L Pulse Oximetry 98 96 96 Oxygen Delivery Room Air 07/11/24 20:29 07/11/24 20:43 07/11/24 21:49 Temperature Pulse Rate 89 66 82 Respiratory Rate 20 Blood Pressure Pulse Oximetry Oxygen Delivery 07/11/24 23:41 07/12/24 02:01 07/12/24 02:13 Temperature Pulse Rate 98 85 82 Respiratory Rate 20 20 Blood Pressure Pulse Oximetry 95 Oxygen Delivery Intake/Output Intake/Output: Intake & Output 07/09/24 07/10/24 07/11/24 07/12/24 23:59 23:59 23:59 23:59 Intake Total 1728 1368.4 1380 240 Output Total 950 550 850 250 Balance 778 818.4 530 -10 Meds/Results Medications: Active Medications Generic Name Dose Route Start Last Admin Trade Name Freq PRN Reason Stop Dose Admin Acetaminophen 1,000 mg 07/11/24 16:52 Acetaminophen 500 Mg Tablet PO Q6H PRN Mild Pain (1-3) or Fever Albuterol/Ipratropium 3 ml 07/11/24 20:00 07/12/24 02:00 Ipratropium 0.5 Mg/Albuterol Sulfate 2.5 Mg Ampul.Neb 3 Ml INHALATION 3 ml Q6HRT SOLITARIO Administration Albuterol/Ipratropium 3 ml 07/11/24 20:00 Ipratropium 0.5 Mg/Albuterol Sulfate 2.5 Mg Ampul.Neb 3 Ml INHALATION Q6HRT SOLITARIO Alprazolam 1 mg 07/03/24 00:03 07/11/24 21:47 Alprazolam (*Crx) 0.5 Mg Tablet PO 1 mg QID PRN Administration anxiety Apixaban 10 mg 07/10/24 21:00 07/11/24 21:48 Apixaban 5 Mg Tablet PO 07/17/24 20:59 10 mg Q12HR SOLITARIO Administration Apixaban 5 mg 07/18/24 09:00 Apixaban 5 Mg Tablet PO Q12HR SOLITARIO Atorvastatin Calcium 80 mg 07/04/24 21:00 07/11/24 08:05 Atorvastatin 40 Mg Tablet PO 80 mg DAILY [facility] Administration Cyanocobalamin 1,000 mcg 07/12/24 09:00 Cyanocobalamin 1,000 Mcg Tablet PO DAILY [facility] Folic Acid 1 mg 07/03/24 09:00 07/11/24 08:06 Folic Acid 1 Mg Tablet PO 1 mg DAILY [facility] Administration Guaifenesin 1,200 mg 07/11/24 21:00 07/11/24 21:48 Guaifenesin 12 Hr 600 Mg Tabcr PO 1,200 mg Q12HR SOLITARIO Administration Levetiracetam 500 mg 07/03/24 12:30 07/11/24 21:48 Levetiracetam 500 Mg Tablet PO 500 mg Q12HR [facility] Administration Levothyroxine Sodium 75 mcg 07/03/24 06:30 07/12/24 06:49 Levothyroxine Sodium 75 Mcg Tablet PO 75 mcg DAILY@0630 [facility] Administration Lidocaine 1 patch 07/12/24 09:00 Lidocaine 5% Patch TRANSDERM DAILY [facility] Lorazepam 1 mg 07/02/24 23:55 Lorazepam Inj (*Crx) 2 Mg/Ml Vial IV PUSH Q2H PRN Seizures Magnesium Oxide 400 mg 07/06/24 17:00 07/11/24 17:14 Magnesium Oxide 400 Mg Tablet PO 400 mg BID SOLITARIO Administration Metoprolol Tartrate 50 mg 07/03/24 09:00 07/11/24 21:49 Metoprolol Tartrate 50 Mg Tab PO 50 mg Q12HR SOLITARIO Administration Metronidazole 500 mg 07/06/24 22:00 07/12/24 06:49 Metronidazole 500 Mg Tablet PO 500 mg Q8HR SOLITARIO Administration Montelukast Sodium 10 mg 07/03/24 00:15 07/11/24 21:49 Montelukast Sodium 10 Mg Tablet PO 10 mg HS SOLITARIO Administration Olmesartan 40 mg 07/03/24 09:00 07/11/24 08:05 Olmesartan Medoxomil 20 Mg Tablet PO 40 mg DAILY SOLITARIO Administration Oseltamivir Phosphate 30 mg 07/11/24 21:00 07/11/24 21:49 Oseltamivir Phosphate 30 Mg Capsule PO 07/16/24 20:59 30 mg Q12HR SOLITARIO Administration Pantoprazole Sodium 40 mg 07/09/24 12:35 07/11/24 21:49 Pantoprazole Sodium Iv 40 Mg Vial IV PUSH 40 mg Q12HR SOLITARIO Administration Sodium Bicarbonate 650 mg 07/11/24 17:00 07/11/24 17:37 Sodium Bicarbonate Tab 650 Mg Tablet PO 650 mg BID SOLITARIO Administration Sodium Chloride 20 ml 07/04/24 16:15 Central Line Flush IV PUSH PRN PRN after blood draws Sodium Chloride 10 ml 07/04/24 16:15 Central Line Flush IV PUSH PRN PRN with TPN bag changes Sodium Chloride 10 ml 07/04/24 22:00 07/12/24 06:49 Central Line Flush IV PUSH 10 ml Q8HR SOLITARIO Administration Tramadol HCl 100 mg 07/11/24 16:49 07/11/24 21:56 Tramadol Hcl (*Crx) 50 Mg Tablet PO 100 mg HS PRN Administration Pain Rated 4-6 (night) Tramadol HCl 50 mg 07/11/24 16:49 Tramadol Hcl (*Crx) 50 Mg Tablet PO DAILY PRN Pain Rated 4-6 (day) Trazodone HCl 100 mg 07/11/24 21:00 07/11/24 21:49 Trazodone Hcl 50 Mg Tablet PO 100 mg HS SOLITARIO Administration Vancomycin HCl 125 mg 07/09/24 17:00 07/11/24 21:49 Vancomycin Hcl 125 Mg Oral Capsule PO 125 mg QID SOLITARIO Administration Radiology Results: ITS Impressions Head CT 07/02/24 14:34 IMPRESSION: 1. Normal aging brain. Abdomen/Pelvis CT 07/02/24 14:36 IMPRESSION: 1. Persistent small collection of extra luminal gas in the left lower quadrant anterior abdominal wall immediately adjacent to a region of inflammatory stranding surrounding the descending colon consistent with diverticulitis. No abscess or more remote free intraperineal gas or fluid. 2. Persistent moderate-sized bilateral posterior layering pleural effusions with dependent compressive atelectasis in the visualized lower lobes. Brain MRI 07/04/24 11:30 IMPRESSION: 1. 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 2. 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 3. Diffuse pachymeningeal enhancement. This finding is most commonly secondary to prior lumbar puncture or spine procedure. ADDENDUM: 07/04/24 1216 The contrast volume was 20 mL MultiHance. Venous Doppler Study 07/05/24 14:17 IMPRESSION: 1. Extensive deep vein thrombosis in right lower limb. I called this result to Elsy Tao. Chest X-Ray 07/11/24 15:04 IMPRESSION: 1. Improved airspace opacities at left lung base, consistent with atelectasis versus pneumonia. 2. Improved small left pleural effusion. Labs Labs: Laboratory Results - last 24 hr 07/11/24 07/12/24 16:44 06:47 WBC 4.2 L RBC 2.60 L Hgb 8.2 L Hct 25.7 L MCV 98.8 MCH 31.5 MCHC 31.9 L RDW 20.7 H Plt Count 209 MPV 10.6 H Immature Gran % (Auto) 1.2 H Neut % (Auto) 63.2 Lymph % (Auto) 22.7 Hall % (Auto) 12.5 H Eos % (Auto) 0.2 Baso % (Auto) 0.2 Lymph # (Auto) 0.96 Hall # (Auto) 0.5 Eos # (Auto) 0.0 Baso # (Auto) 0.0 Abs Immat Gran (auto) 0.05 H Absolute Neuts (auto) 2.7 Absolute Nucleated RBC 0.030 H Nucleated RBC % 0.7 H Influenza A (RT-PCR) Positive A Influenza B (RT-PCR) Negative RSV (RT-PCR) Negative SARS-CoV-2 RNA (RT-PCR) Negative Quality VTE Prophylaxis VTE prophylaxis: pharmacologic ordered Hospitalist MIPS Advance Care Plan I have confirmed that the patient's Advanced Care Plan is present, code status is documented, or surrogate decision maker is listed in patient medical record.: Yes Medication Reconciliation I have utilized all available resources to obtain, update and review the patients current medications (includes all prescriptions, OTC, herbals, cannabis, and nutritional supplements).: Yes
[2024-07-12 07:19] LABS: Alanine Aminotransferase 16 U/L (6-35); Albumin Level 2.1 g/dL (3.5-5.1); Alkaline Phosphatase 106 U/L (38-126); Anion Gap 7 mmol/L (4-12); Aspartate Amino Transferase 53 U/L (14-36); Bilirubin,Total 0.5 mg/dL (0.2-1.3); Blood Urea Nitrogen 19 mg/dL (7-17); Calcium 7.4 mg/dL (8.4-10.2); Carbon Dioxide 19 mmol/L (22-30); Chloride 112 mmol/L (98-107); Estimated CRCL calculation 38 ml/min; Estimated Glomerular Filt Rate 39; Glucose 75 mg/dL (65-110); Magnesium 1.8 mg/dL (1.6-2.3); Potassium 3.8 mmol/L (3.4-5.0); Sodium 138 mmol/L (137-145)
[2024-07-12] MEDS: OSELTAMIVIR PHOSPHATE 30 MG CAPSULE PO ×2 (09:22→22:19)
[2024-07-12] MEDS: MAGNESIUM OXIDE 400 MG TABLET PO ×2 (09:22→17:46)
[2024-07-12] MEDS: VANCOMYCIN HCL 125 MG ORAL CAPSULE PO ×4 (09:22→22:21)
[2024-07-12] MEDS: guaiFENesin 12 HR 600 MG TABCR 1200 MG PO ×2 (09:22→22:19)
[2024-07-12] MEDS: FOLIC ACID 1 MG TABLET PO (09:22)
[2024-07-12] MEDS: OLMESARTAN MEDOXOMIL 20 MG TABLET 40 MG PO (09:23)
[2024-07-12] MEDS: SODIUM BICARBONATE TAB 650 MG TABLET PO ×2 (09:23→17:46)
[2024-07-12] MEDS: levETIRAcetam 500 MG TABLET PO ×2 (09:23→22:20)
[2024-07-12] MEDS: ATORVASTATIN 40 MG TABLET 80 MG PO (09:23)
[2024-07-12] MEDS: CYANOCOBALAMIN 1,000 MCG TABLET 1000 MCG PO (09:23)
[2024-07-12] MEDS: METOPROLOL TARTRATE 50 MG TAB PO ×2 (09:24→22:20)
[2024-07-12] MEDS: APIXABAN 5 MG TABLET 10 MG PO (09:24)
[2024-07-12] MEDS: PANTOPRAZOLE SODIUM IV 40 MG VIAL IV PUSH ×2 (09:26→22:21)
[2024-07-12] MEDS: LIDOCAINE 5% PATCH 1 PATCH TRANSDERM (09:26)
[2024-07-12] MEDS: traMADol HCL (*CRX) 50 MG TABLET PO (13:42)
--- NOTE | 2024-07-12 14:16 | PC.NURSE ---
On 07/12/24, the student, [Riley Evans], provided care and completed [facility] documentation on this patient. I have reviewed the student's documentation and agree with the findings.
--- NOTE | 2024-07-12 18:49 | PC.NURSE ---
This patient, Melissa Tom, was transferred to [[id number]] on 07/12/24 at 1849. Personal belongings sent with patient. Report given to [TOMAS Mcmahan @ [phone] ]. Appropriate documentation sent with patient.
--- NOTE | 2024-07-12 18:50 | PC.NURSE ---
pt transferred in to room 312 via bed, reviewed plan of care and pt condition, chart reviewed, pt reoriented to room and environment and is resting comfortably
[2024-07-12] MEDS: MONTELUKAST SODIUM 10 MG TABLET PO (22:19)
[2024-07-12] MEDS: APIXABAN 5 MG TABLET PO (22:20)
[2024-07-12] MEDS: traZODone HCL 50 MG TABLET 100 MG PO (22:20)
--- NOTE | 2024-07-12 23:00 | PCRCNOTE ---
Window of time for administration has passed. See next scheduled administration.
[2024-07-13] VITALS (14 sets, daily range): BP systolic 133–140; BP diastolic 62–77; PULSE 80–96; RESP 16–20; TEMP 36.2–36.5; O2SAT 91–96
[2024-07-13] MEDS: traMADol HCL (*CRX) 50 MG TABLET 100 MG PO (02:03)
[2024-07-13] MEDS: IPRATROPIUM 0.5 MG/ALBUTEROL SULFATE 2.5 MG AMPUL.NEB 3 ML INHALATION ×4 (02:05→20:20)
[2024-07-13] MEDS: LEVOTHYROXINE SODIUM 75 MCG TABLET PO (06:25)
[2024-07-13] MEDS: CENTRAL LINE FLUSH 10 ML IV PUSH ×3 (06:30→20:56)
[2024-07-13 07:36] LABS: Basophils Percent Auto 0.2 % (0.2-1.2); Eosinophils Percent Auto 0.7 % (0-4.4); Hematocrit 25.5 % (37.0-47.0); Immature Granulocyte Absolute 0.05 K/mm3 (0.00-0.031); Immature Granulocyte Percent A 0.8 % (0-0.5); Lymphocytes Absolute Auto 1.15 K/mm3 (0.9-3.2); Lymphocytes Percent Auto 19.5 % (18.3-44.2); Mean Corpuscular HGB Conc 31.4 g/dl (32-36); Mean Corpuscular Hemoglobin 30.9 pg (26-34); Mean Corpuscular Volume 98.5 fl (80-100); Mean Platelet Volume 10.8 fl (7.4-10.4); Monocytes Absolute Auto 0.5 K/mm3 (0.1-0.6); Neutrophils Absolute Auto 4.2 K/mm3 (1.3-6.7); Neutrophils Percent Auto 70.8 % (45.5-73.1); Nucleated Red Blood Cells Perc 0.3 % (0.0-0.2); Platelet Count Result 230 k/mm3 (150-375); Red Blood Count 2.59 M/mm3 (4.2-5.4); Red Cell Distribution Width 20.9 % (11.5-14.5); White Blood Count 5.9 K/mm3 (4.5-10.0)
[2024-07-13 07:56] LABS: Alanine Aminotransferase 15 U/L (6-35); Albumin Level 2.1 g/dL (3.5-5.1); Alkaline Phosphatase 101 U/L (38-126); Anion Gap 6 mmol/L (4-12); Aspartate Amino Transferase 44 U/L (14-36); Bilirubin,Total 0.8 mg/dL (0.2-1.3); Blood Urea Nitrogen 19 mg/dL (7-17); Calcium 7.4 mg/dL (8.4-10.2); Carbon Dioxide 20 mmol/L (22-30); Chloride 111 mmol/L (98-107); Estimated CRCL calculation 39 ml/min; Estimated Glomerular Filt Rate 40; Glucose 68 mg/dL (65-110); Magnesium 1.7 mg/dL (1.6-2.3); Potassium 3.7 mmol/L (3.4-5.0); Sodium 137 mmol/L (137-145)
[2024-07-13] MEDS: guaiFENesin 12 HR 600 MG TABCR 1200 MG PO ×2 (10:26→20:54)
[2024-07-13] MEDS: MAGNESIUM OXIDE 400 MG TABLET PO ×2 (10:26→18:11)
[2024-07-13] MEDS: OLMESARTAN MEDOXOMIL 20 MG TABLET 40 MG PO (10:26)
[2024-07-13] MEDS: CYANOCOBALAMIN 1,000 MCG TABLET 1000 MCG PO (10:27)
[2024-07-13] MEDS: APIXABAN 5 MG TABLET PO ×2 (10:27→20:54)
[2024-07-13] MEDS: traMADol HCL (*CRX) 50 MG TABLET PO (10:27)
[2024-07-13] MEDS: OSELTAMIVIR PHOSPHATE 30 MG CAPSULE PO ×2 (10:28→20:54)
[2024-07-13] MEDS: SODIUM BICARBONATE TAB 650 MG TABLET PO ×2 (10:28→18:11)
[2024-07-13] MEDS: levETIRAcetam 500 MG TABLET PO ×2 (10:28→20:54)
[2024-07-13] MEDS: FOLIC ACID 1 MG TABLET PO (10:28)
[2024-07-13] MEDS: ATORVASTATIN 40 MG TABLET 80 MG PO (10:28)
[2024-07-13] MEDS: METOPROLOL TARTRATE 50 MG TAB PO ×2 (10:28→20:54)
[2024-07-13] MEDS: PANTOPRAZOLE SODIUM IV 40 MG VIAL IV PUSH ×2 (10:28→20:56)
[2024-07-13] MEDS: VANCOMYCIN HCL 125 MG ORAL CAPSULE PO ×4 (10:28→20:55)
[2024-07-13] MEDS: LIDOCAINE 5% PATCH 1 PATCH TRANSDERM (10:29)
--- NOTE | 2024-07-13 12:49 | P.PNIM_ITS ---
Progress Note: A&P Assessment and Plan (1) Seizure: Code(s): R56.9 - Unspecified convulsions Status: Acute Assessment and Plan: New onset * CT of the head was negative * MRI showing acute infarct in the left frontoparietal lobe in deep white matter * EEG findings abnormal read, cannot rule out seizure activity * Continue atorvastatin, Plavix * Will hold baby aspirin considering patient is on Eliquis * Continue Keppra * Continue seizure precautions * Cardiac telemetry stable, we will go ahead and discontinue continuous telemetry (2) Post-ictal confusion: Code(s): F05 - Delirium due to known physiological condition Status: Resolved Assessment and Plan: Resolved * Currently alert oriented x3 (3) CVA (cerebral vascular accident): Code(s): I63.9 - Cerebral infarction, unspecified Status: Acute Assessment and Plan: 07/12/24: * MRA of brain showing acute infarct in the left frontoparietal lobe in the deep white matter * Left lower extremity weakness * PT and OT ordered * Continue atorvastatin, Plavix * Aspirin currently on hold as she is on Eliquis for DVT prophylaxis * A Neurology following (4) Acute DVT (deep venous thrombosis): Code(s): I82.409 - Acute embolism and thrombosis of unspecified deep veins of unspecified lower extremity Status: Acute Assessment and Plan: 07/05 Venous Doppler showing extensive right lower extremity DVT * Patient was started on therapeutic Lovenox 07/05-07/09, heparin drip 07/10 but was supratherapeutic, and then Eliquis 10mg BID. Discussed with pharmacy and she has been treated for 7 days, so can decrease eliquis to 5mg BID. * During admission she has had dark tarry stools and a drop in her hemoglobin requiring blood transfusion. Heparin drip was placed on hold for 24 hours * General surgery was consulted for IVC filter however she is not a candidate at this time due to her other comorbidities * Continue Eliquis 5mg BID as stated above * Has +2-+3 lower extremity edema (5) Influenza A: Code(s): J10.1 - Influenza due to other identified influenza virus with other respiratory manifestations Status: Acute Assessment and Plan: --Continue Tamiflu 30mg q12 for renal function, creatinine clearance 38 (6) Upper respiratory infection: Code(s): J06.9 - Acute upper respiratory infection, unspecified Status: Acute Assessment and Plan: Patient reported cold-like symptoms with a nonproductive cough and wheezing. Influenza positive 07/11 Chest X-ray 07/11 showed: 1. Improved airspace opacities at left lung base, consistent with atelectasis versus pneumonia. 2. Improved small left pleural effusion. * Start DuoNebs q.6 hour * Treatment of flu as noted * Incentive spirometry while awake * Pep therapy with cornet flutter valve (7) C. difficile colitis: Onset Date: 2021 Code(s): A04.72 - Enterocolitis due to Clostridium difficile, not specified as recurrent Status: Acute Assessment and Plan: Stop Flagyl * Continue vancomycin pulse dosing * Pulse taper vanc dose as follows: 125 mg orally 4 times daily for 10 to 14 days (07/09-07/19, then 125 mg orally twice daily for 7 days, then 125 mg orally once daily for 7 days, then 125 mg orally every 2 to 3 days for 2 to 8 weeks (8) Anemia: Qualifiers: Anemia type: due to chronic kidney disease Chronic kidney disease stage: unspecified stage Qualified Code(s): N18.9 - Chronic kidney disease, unspecified; D63.1 - Anemia in chronic kidney disease Code(s): D64.9 - Anemia, unspecified Status: Acute Assessment and Plan: H&H 8.2/25 ---> 8.0/25.5 * Continue to transfuse for hemoglobin less than 7 * will add iron panel to am labs * Patient receive 1 unit of blood this admission * Currently on Eliquis, Plavix * Will hold aspirin * Continue to trend (9) Occult blood in stools: Code(s): R19.5 - Other fecal abnormalities Status: Acute Assessment and Plan: Patient was occult blood positive on 07/09/2024 * She was given 1 unit of blood * H&H is stable * GI recommending outpatient colonoscopy considering her comorbidities * Recently diagnosed with diverticulitis and C diff colitis (10) Acute urinary retention: Code(s): R33.8 - Other retention of urine Status: Acute Assessment and Plan: Patient had acute urinary retention requiring Leija on 07/03/24 * Urology was consulted * Patient failed voiding trial * Patient will keep catheter and repeat voiding trial in 1-2 weeks on an outpatient basis with Urology (11) Diverticulitis of intestine with perforation without abscess: Qualifiers: Diverticulitis bleeding: without bleeding Diverticulitis site: large intestine Qualified Code(s): K57.20 - Diverticulitis of large intestine with perforation and abscess without bleeding Code(s): K57.80 - Diverticulitis of intestine, part unspecified, with perforation and abscess without bleeding Status: Acute Assessment and Plan: Failed Dificid * Continue oral vancomycin, also was on flagyl * Still having some watery stools (12) Hypothyroidism: Qualifiers: Hypothyroidism type: unspecified Qualified Code(s): E03.9 - Hypothyroidism, unspecified Code(s): E03.9 - Hypothyroidism, unspecified Status: Chronic Assessment and Plan: continue synthroid (13) Hypertension: Qualifiers: Hypertension type: primary hypertension Qualified Code(s): I10 - Essential (primary) hypertension Code(s): I10 - Essential (primary) hypertension Status: Chronic Assessment and Plan: Continue metoprolol, Benicar and monitor Time Spent With Patient Time with patient: Greater than 35 minutes (65) Subjective Date/time seen: 07/13/24 12:49 Interval history: Patient today reports she still has a cough. Denies any chest pain or shortness of breath. Patient is still having watery stools in rectal tube, but output decreasing, 100ml or less a day. Urine output dark yellow, folwy catheter is still in place. This am patient's H&H about the same, 8.0/25.5 today, trending down slightly. Not able to scope for 4-6 weeks per GI. Review of Systems Review of Systems: All systems reviewed & are unremarkable except as noted in HPI and below Constitutional: Constitutional: Reports no additional constitutional complaints Eyes: Eyes: Reports no additional eye complaints ENT: Reports system reviewed and no additional complaints, except as document ed Cardiovascular: Cardiovascular: Reports no additional cardiovascular complaints Respiratory: Respiratory: Reports no additional respiratory complaints Gastrointestinal: Gastrointestinal: Reports no additional gastrointestinal complaints and Reports diarrhea Genitourinary: Genitourinary: Reports no additional female genitourinary complaints Musculoskeletal: Musculoskeletal: Reports no additional musculoskeletal complaints Integumentary/Breasts: Skin/Breast: Reports as per HPI Neurologic: Reports system reviewed and no additional complaints, except as documented Psychiatric: Psychiatric: Reports no additional psychiatric complaints Hematologic/Lymphatic: Hematologic/Lymphatic: Reports no additional hematologic/lymphatic complaints Allergic/Immunologic: Allergic/Immunologic: Reports no additional allergic/immunologic complaints Exam Const: General: cooperative, no acute distress, alert and awake HENMT: Head: normal to inspection and normocephalic Eyes: General: appearance normal, both eyes and all related structures Neck: Neck: normal visual inspection, full ROM and no lymphadenopathy Chest: Chest palpation & inspection: normal inspection of the chest Resp: Effort & Inspection: normal respiratory effort and Actively coughing Auscultation: diminished lung sounds bilateral in the lower lung forbes Cardio: Jugular venous distension: no JVD Rate: regular rate Rhythm: regular rhythm Heart sounds: S1 normal heart sound present and S2 normal heart sound present GI: Inspection: normal to inspection GI Palp: Yes Soft to palpation Auscultation: Hyperactive bowel sounds present Rectal Exam: other (rectal t ube in place, liquid stool noted) Urinary Catheter: Urinary Catheter: patent and draining and urine dark Skin: General skin exam: no rashes or lesions noted Neuro: General: oriented to person, oriented to place, oriented to time, tone normal and moves all extremities Extrem: General: normal to inspection Psych: Appearance: grossly normal Mental Status: mental status grossly normal Objective Data Vital Signs Vital Signs: Vital Signs - 24 hr 07/12/24 13:59 07/12/24 14:08 07/12/24 15:55 Temperature 98 F Pulse Rate 82 86 86 Respiratory Rate 16 16 18 Blood Pressure 129/69 Pulse Oximetry 99 Oxygen Delivery Fraction of Inspired Oxygen 07/12/24 20:00 07/12/24 21:43 07/12/24 22:20 Temperature 98 F Pulse Rate 80 80 Respiratory Rate 18 Blood Pressure 125/67 Pulse Oximetry 98 Oxygen Delivery Room Air Fraction of Inspired Oxygen 07/13/24 02:05 07/13/24 02:15 07/13/24 07:45 Temperature Pulse Rate 81 80 Respiratory Rate 18 18 Blood Pressure Pulse Oximetry 91 Oxygen Delivery Room Air Fraction of Inspired Oxygen 21 07/13/24 07:45 07/13/24 07:53 07/13/24 10:10 Temperature Pulse Rate 89 90 96 Respiratory Rate 20 20 18 Blood Pressure 133/77 Pulse Oximetry 96 Oxygen Delivery Fraction of Inspired Oxygen 07/13/24 10:28 Temperature Pulse Rate 96 Respiratory Rate Blood Pressure Pulse Oximetry Oxygen Delivery Fraction of Inspired Oxygen Intake/Output Intake/Output: Intake & Output 07/10/24 07/11/24 07/12/24 07/13/24 23:59 23:59 23:59 23:59 Intake Total 1368.4 1380 603 50 Output Total 550 850 750 200 Balance 818.4 530 -361 -150 Meds/Results Medications: Active Medications Generic Name Dose Route Start Last Admin Trade Name Freq PRN Reason Stop Dose Admin Acetaminophen 1,000 mg 07/11/24 16:52 Acetaminophen 500 Mg Tablet PO Q6H PRN Mild Pain (1-3) or Fever Albuterol/Ipratropium 3 ml 07/11/24 20:00 07/13/24 07:43 Ipratropium 0.5 Mg/Albuterol Sulfate 2.5 Mg Ampul.Neb 3 Ml INHALATION 3 ml Q6HRT SOLITARIO Administration Alprazolam 1 mg 07/03/24 00:03 07/11/24 21:47 Alprazolam (*Crx) 0.5 Mg Tablet PO 1 mg QID PRN Administration anxiety Apixaban 5 mg 07/12/24 21:00 07/13/24 10:27 Apixaban 5 Mg Tablet PO 5 mg Q12HR SOLITARIO Administration Atorvastatin Calcium 80 mg 07/04/24 21:00 07/13/24 10:28 Atorvastatin 40 Mg Tablet PO 80 mg DAILY SOLITARIO Administration Cyanocobalamin 1,000 mcg 07/12/24 09:00 07/13/24 10:27 Cyanocobalamin 1,000 Mcg Tablet PO 1,000 mcg DAILY SOLITARIO Administration Folic Acid 1 mg 07/03/24 09:00 07/13/24 10:28 Folic Acid 1 Mg Tablet PO 1 mg DAILY SOLITARIO Administration Guaifenesin 1,200 mg 07/11/24 21:00 07/13/24 10:26 Guaifenesin 12 Hr 600 Mg Tabcr PO 1,200 mg Q12HR SOLITARIO Administration Levetiracetam 500 mg 07/03/24 12:30 07/13/24 10:28 Levetiracetam 500 Mg Tablet PO 500 mg Q12HR SOLITARIO Administration Levothyroxine Sodium 75 mcg 07/03/24 06:30 07/13/24 06:25 Levothyroxine Sodium 75 Mcg Tablet PO 75 mcg DAILY@0630 SOLITARIO Administration Lidocaine 1 patch 07/12/24 09:00 07/13/24 10:29 Lidocaine 5% Patch TRANSDERM 1 patch DAILY SOLITARIO Administration Lorazepam 1 mg 07/02/24 23:55 Lorazepam Inj (*Crx) 2 Mg/Ml Vial IV PUSH Q2H PRN Seizures Magnesium Oxide 400 mg 07/06/24 17:00 07/13/24 10:26 Magnesium Oxide 400 Mg Tablet PO 400 mg BID SOLITARIO Administration Metoprolol Tartrate 50 mg 07/03/24 09:00 07/13/24 10:28 Metoprolol Tartrate 50 Mg Tab PO 50 mg Q12HR SOLITARIO Administration Montelukast Sodium 10 mg 07/03/24 00:15 07/12/24 22:19 Montelukast Sodium 10 Mg Tablet PO 10 mg HS SOLITARIO Administration Olmesartan 40 mg 07/03/24 09:00 07/13/24 10:26 Olmesartan Medoxomil 20 Mg Tablet PO 40 mg DAILY SOLITARIO Administration Oseltamivir Phosphate 30 mg 07/11/24 21:00 07/13/24 10:28 Oseltamivir Phosphate 30 Mg Capsule PO 07/16/24 20:59 30 mg Q12HR SOLITARIO Administration Pantoprazole Sodium 40 mg 07/09/24 12:35 07/13/24 10:28 Pantoprazole Sodium Iv 40 Mg Vial IV PUSH 40 mg Q12HR SOLITARIO Administration Sodium Bicarbonate 650 mg 07/11/24 17:00 07/13/24 10:28 Sodium Bicarbonate Tab 650 Mg Tablet PO 650 mg BID SOLITARIO Administration Sodium Chloride 20 ml 07/04/24 16:15 Central Line Flush IV PUSH PRN PRN after blood draws Sodium Chloride 10 ml 07/04/24 16:15 Central Line Flush IV PUSH PRN PRN with TPN bag changes Sodium Chloride 10 ml 07/04/24 22:00 07/13/24 06:30 Central Line Flush IV PUSH 10 ml Q8HR SOLITARIO Administration Tramadol HCl 100 mg 07/11/24 16:49 07/13/24 02:03 Tramadol Hcl (*Crx) 50 Mg Tablet PO 100 mg HS PRN Administration Pain Rated 4-6 (night) Tramadol HCl 50 mg 07/11/24 16:49 07/13/24 10:27 Tramadol Hcl (*Crx) 50 Mg Tablet PO 50 mg DAILY PRN Administration Pain Rated 4-6 (day) Trazodone HCl 100 mg 07/11/24 21:00 07/12/24 22:20 Trazodone Hcl 50 Mg Tablet PO 100 mg HS SOLITARIO Administration Vancomycin HCl 125 mg 07/09/24 17:00 07/13/24 10:28 Vancomycin Hcl 125 Mg Oral Capsule PO 125 mg QID SOLITARIO Administration Radiology Results: ITS Impressions Head CT 07/02/24 14:34 IMPRESSION: 1. Normal aging brain. Abdomen/Pelvis CT 07/02/24 14:36 IMPRESSION: 1. Persistent small collection of extra luminal gas in the left lower quadrant anterior abdominal wall immediately adjacent to a region of inflammatory stranding surrounding the descending colon consistent with diverticulitis. No abscess or more remote free intraperineal gas or fluid. 2. Persistent moderate-sized bilateral posterior layering pleural effusions with dependent compressive atelectasis in the visualized lower lobes. Brain MRI 07/04/24 11:30 IMPRESSION: 1. 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 2. 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 3. Diffuse pachymeningeal enhancement. This finding is most commonly secondary to prior lumbar puncture or spine procedure. ADDENDUM: 07/04/24 1216 The contrast volume was 20 mL MultiHance. Venous Doppler Study 07/05/24 14:17 IMPRESSION: 1. Extensive deep vein thrombosis in right lower limb. I called this result to Elsy Tao. Chest X-Ray 07/11/24 15:04 IMPRESSION: 1. Improved airspace opacities at left lung base, consistent with atelectasis versus pneumonia. 2. Improved small left pleural effusion. Labs Labs: Laboratory Results - last 24 hr 07/13/24 06:23 WBC 5.9 RBC 2.59 L Hgb 8.0 L Hct 25.5 L MCV 98.5 MCH 30.9 MCHC 31.4 L RDW 20.9 H Plt Count 230 MPV 10.8 H Immature Gran % (Auto) 0.8 H Neut % (Auto) 70.8 Lymph % (Auto) 19.5 [place] % (Auto) 8.0 Eos % (Auto) 0.7 Baso % (Auto) 0.2 Lymph # (Auto) 1.15 [place] # (Auto) 0.5 Eos # (Auto) 0.0 Baso # (Auto) 0.0 Abs Immat Gran (auto) 0.05 H Absolute Neuts (auto) 4.2 Absolute Nucleated RBC 0.020 H Nucleated RBC % 0.3 H Sodium 137 Potassium 3.7 Chloride 111 H Carbon Dioxide 20 L Anion Gap 6 BUN 19 H Creatinine 1.31 H Estim Creat Clear Calc 39 Estimated GFR 40 L Glucose 68 Calcium 7.4 L Magnesium 1.7 Total Bilirubin 0.8 AST 44 H ALT 15 Alkaline Phosphatase 101 Total Protein 5.0 L Albumin 2.1 L Blood Type O Negative Antibody Screen Negative Hospitalist MIPS Advance Care Plan I have confirmed that the patient's Advanced Care Plan is present, code status is documented, or surrogate decision maker is listed in patient medical record.: Yes Medication Reconciliation I have utilized all available resources to obtain, update and review the patients current medications (includes all prescriptions, OTC, herbals, cannabis, and nutritional supplements).: Yes
[2024-07-13] MEDS: MONTELUKAST SODIUM 10 MG TABLET PO (20:54)
[2024-07-13] MEDS: traZODone HCL 50 MG TABLET 100 MG PO (20:54)
[2024-07-14] VITALS (9 sets, daily range): BP systolic 144–152; BP diastolic 65–82; PULSE 80–86; RESP 16–18; TEMP 36.1–36.6; O2SAT 93–97
[2024-07-14] MEDS: LEVOTHYROXINE SODIUM 75 MCG TABLET PO (06:22)
[2024-07-14] MEDS: CENTRAL LINE FLUSH 10 ML IV PUSH ×3 (06:22→21:38)
[2024-07-14 06:30] LABS: Basophils Percent Auto 0.2 % (0.2-1.2); Eosinophils Percent Auto 0.7 % (0-4.4); Hematocrit 25.2 % (37.0-47.0); Immature Granulocyte Absolute 0.04 K/mm3 (0.00-0.031); Immature Granulocyte Percent A 0.7 % (0-0.5); Lymphocytes Absolute Auto 1.33 K/mm3 (0.9-3.2); Lymphocytes Percent Auto 23.5 % (18.3-44.2); Mean Corpuscular HGB Conc 31.7 g/dl (32-36); Mean Corpuscular Hemoglobin 31.3 pg (26-34); Mean Corpuscular Volume 98.4 fl (80-100); Mean Platelet Volume 10.6 fl (7.4-10.4); Monocytes Absolute Auto 0.4 K/mm3 (0.1-0.6); Monocytes Percent Auto 7.4 % (2.6-8.5); Neutrophils Absolute Auto 3.8 K/mm3 (1.3-6.7); Neutrophils Percent Auto 67.5 % (45.5-73.1); Platelet Count Result 240 k/mm3 (150-375); Red Blood Count 2.56 M/mm3 (4.2-5.4); Red Cell Distribution Width 20.9 % (11.5-14.5); White Blood Count 5.7 K/mm3 (4.5-10.0)
[2024-07-14 06:41] LABS: Alanine Aminotransferase 13 U/L (6-35); Albumin Level 2.1 g/dL (3.5-5.1); Alkaline Phosphatase 89 U/L (38-126); Anion Gap 9 mmol/L (4-12); Aspartate Amino Transferase 38 U/L (14-36); Bilirubin,Total 0.6 mg/dL (0.2-1.3); Blood Urea Nitrogen 18 mg/dL (7-17); Calcium 7.5 mg/dL (8.4-10.2); Carbon Dioxide 20 mmol/L (22-30); Chloride 110 mmol/L (98-107); Estimated CRCL calculation 40 ml/min; Estimated Glomerular Filt Rate 41; Glucose 73 mg/dL (65-110); Magnesium 1.7 mg/dL (1.6-2.3); Potassium 3.6 mmol/L (3.4-5.0); Sodium 139 mmol/L (137-145)
[2024-07-14 08:00] LABS: Iron 29 ug/dL (37-170)
[2024-07-14 08:10] LABS: Percent Iron Saturation 24 % (20-50)
[2024-07-14] MEDS: ATORVASTATIN 40 MG TABLET 80 MG PO (09:17)
[2024-07-14] MEDS: OLMESARTAN MEDOXOMIL 20 MG TABLET 40 MG PO (09:17)
[2024-07-14] MEDS: APIXABAN 5 MG TABLET PO ×2 (09:17→21:38)
[2024-07-14] MEDS: OSELTAMIVIR PHOSPHATE 30 MG CAPSULE PO ×2 (09:17→21:38)
[2024-07-14] MEDS: VANCOMYCIN HCL 125 MG ORAL CAPSULE PO ×4 (09:17→21:38)
[2024-07-14] MEDS: guaiFENesin 12 HR 600 MG TABCR 1200 MG PO ×2 (09:17→21:38)
[2024-07-14] MEDS: levETIRAcetam 500 MG TABLET PO ×2 (09:18→21:38)
[2024-07-14] MEDS: MAGNESIUM OXIDE 400 MG TABLET PO ×2 (09:18→16:56)
[2024-07-14] MEDS: METOPROLOL TARTRATE 50 MG TAB PO ×2 (09:18→21:38)
[2024-07-14] MEDS: SODIUM BICARBONATE TAB 650 MG TABLET PO ×2 (09:18→16:56)
[2024-07-14] MEDS: PANTOPRAZOLE SODIUM IV 40 MG VIAL IV PUSH ×2 (09:18→21:38)
[2024-07-14] MEDS: CYANOCOBALAMIN 1,000 MCG TABLET 1000 MCG PO (09:18)
[2024-07-14] MEDS: FOLIC ACID 1 MG TABLET PO (09:18)
[2024-07-14] MEDS: LIDOCAINE 5% PATCH 1 PATCH TRANSDERM (09:18)
[2024-07-14] MEDS: ALBUMIN HUMAN 25% 25 GM/100 ML 100 ML IVPB (09:23)
[2024-07-14] MEDS: CALCIUM CARBONATE (OSCAL) 500 MG TABLET PO ×2 (09:23→16:56)
--- NOTE | 2024-07-14 12:53 | P.PNIM_ITS ---
Progress Note: A&P Assessment and Plan (1) Seizure: Code(s): R56.9 - Unspecified convulsions Status: Acute Assessment and Plan: New onset * CT of the head was negative * MRI showing acute infarct in the left frontoparietal lobe in deep white matter * EEG findings abnormal read, cannot rule out seizure activity * Continue atorvastatin, Plavix * Will hold baby aspirin considering patient is on Eliquis * Continue Keppra * Continue seizure precautions * Cardiac telemetry stable, we will go ahead and discontinue continuous telemetry (2) Post-ictal confusion: Code(s): F05 - Delirium due to known physiological condition Status: Resolved Assessment and Plan: resolved (3) CVA (cerebral vascular accident): Code(s): I63.9 - Cerebral infarction, unspecified Status: Acute Assessment and Plan: 07/12/24: * MRA of brain showing acute infarct in the left frontoparietal lobe in the deep white matter * Left lower extremity weakness * PT and OT ordered * Continue atorvastatin, Plavix * Aspirin currently on hold as she is on Eliquis for DVT prophylaxis * A Neurology following (4) Acute DVT (deep venous thrombosis): Code(s): I82.409 - Acute embolism and thrombosis of unspecified deep veins of unspecified lower extremity Status: Acute Assessment and Plan: 07/05 Venous Doppler showing extensive right lower extremity DVT * Patient was started on therapeutic Lovenox 07/05-07/09, heparin drip 07/10 but was supratherapeutic, and then Eliquis 10mg BID. Discussed with pharmacy and she has been treated for 7 days, so can decrease eliquis to 5mg BID. * During admission she has had dark tarry stools and a drop in her hemoglobin requiring blood transfusion. Heparin drip was placed on hold for 24 hours * General surgery was consulted for IVC filter however she is not a candidate at this time due to her other comorbidities * Continue Eliquis 5mg BID as stated above * Has +2-+3 lower extremity edema (5) Influenza A: Code(s): J10.1 - Influenza due to other identified influenza virus with other respiratory manifestations Status: Acute Assessment and Plan: --Tamiflu 30mg q12 for renal function, creatinine clearance 38 for 5 days (6) Upper respiratory infection: Code(s): J06.9 - Acute upper respiratory infection, unspecified Status: Acute Assessment and Plan: Patient reported cold-like symptoms with a nonproductive cough and wheezing. Influenza positive 07/11 Chest X-ray 07/11 showed: 1. Improved airspace opacities at left lung base, consistent with atelectasis versus pneumonia. 2. Improved small left pleural effusion. * Start DuoNebs q.6 hour * Treatment of flu as noted * Incentive spirometry while awake * Pep therapy with cornet flutter valve (7) C. difficile colitis: Onset Date: 2021 Code(s): A04.72 - Enterocolitis due to Clostridium difficile, not specified as recurrent Status: Acute Assessment and Plan: Stop Flagyl * Continue vancomycin pulse dosing * Pulse taper vanc dose as follows:125 mg orally 4 times daily for 10 to 14 days (07/09-07/19, then 125 mg orally twice daily for 7 days, then 125 mg orally once daily for 7 days, then 125 mg orally every 2 to 3 days for 2 to 8 weeks (8) Anemia: Qualifiers: Anemia type: due to chronic kidney disease Chronic kidney disease stage: unspecified stage Qualified Code(s): N18.9 - Chronic kidney disease, unspecified; D63.1 - Anemia in chronic kidney disease Code(s): D64.9 - Anemia, unspecified Status: Acute Assessment and Plan: H&H 8.2/ ---> 8.0/25.5 * Continue to transfuse for hemoglobin less than 7 * will add iron panel to am labs * Patient receive 1 unit of blood this admission * Currently on Eliquis, Plavix * Will hold aspirin * Continue to trend (9) Occult blood in stools: Code(s): R19.5 - Other fecal abnormalities Status: Acute Assessment and Plan: Patient was occult blood positive on 07/09/2024 * She was given 1 unit of blood * H&H is stable * GI recommending outpatient colonoscopy considering her comorbidities * Recently diagnosed with diverticulitis and C diff colitis (10) Acute urinary retention: Code(s): R33.8 - Other retention of urine Status: Acute Assessment and Plan: Patient had acute urinary retention requiring Fitzpatrick on 07/03/24 * Urology was consulted * Patient failed voiding trial * Patient will keep catheter and repeat voiding trial in 1-2 weeks on an outpatient basis with Urology (11) Diverticulitis of intestine with perforation without abscess: Qualifiers: Diverticulitis bleeding: without bleeding Diverticulitis site: large intestine Qualified Code(s): K57.20 - Diverticulitis of large intestine with perforation and abscess without bleeding Code(s): K57.80 - Diverticulitis of intestine, part unspecified, with perforation and abscess without bleeding Status: Acute Assessment and Plan: Failed Dificid * Continue oral vancomycin, also was on flagyl * Still having some watery stools (12) Hypothyroidism: Qualifiers: Hypothyroidism type: unspecified Qualified Code(s): E03.9 - Hypothyroidism, unspecified Code(s): E03.9 - Hypothyroidism, unspecified Status: Chronic Assessment and Plan: continue synthroid (13) Hypertension: Qualifiers: Hypertension type: primary hypertension Qualified Code(s): I10 - Essential (primary) hypertension Code(s): I10 - Essential (primary) hypertension Status: Chronic Assessment and Plan: continue metoprolol, benicar and monitor (14) Hypoalbuminemia: Code(s): E88.09 - Other disorders of plasma-protein metabolism, not elsewhere classified Status: Acute Assessment and Plan: - albumin today 2.1 - will supplement with 25 mg IVPB today. - trend daily. Plan DVT: Eliquis Code status: full code - plan - Albumin today is 2.1, will supplement with 25mg IV todayx1 dose. Continue to monitor, once improved will d/c, Discharge planning to work with patient Time Spent With Patient Time with patient: Greater than 35 minutes (40 minutes) Subjective Date/time seen: 07/14/24 12:53 Interval history: Patient today reports she still has a cough. Denies any chest pain or shortness of breath. Patient is still having watery stools in rectal tube, but output decreasing. Urine output dark yellow, fitzpatrick catheter is still in place. Albumin is 2.1 again today, will supplement today. Start po calcium to assist with low calcium. most like from her viral load and Diarrhea. This am patient's H&H about the same, 8.0/25.2 today, trending down slightly. Not able to scope for 4-6 weeks per GI. patient otherwise reports she is feeling somewhat better today. Review of Systems Review of Systems: All systems reviewed & are unremarkable except as noted in HPI and below Constitutional: Constitutional: Reports no additional constitutional complaints Eyes: Eyes: Reports no additional eye complaints ENT: Reports system reviewed and no additional complaints, except as documented Cardiovascular: Cardiovascular: Reports no additional cardiovascular complaints Respiratory: Respiratory: Reports no additional respiratory complaints Gastrointestinal: Gastrointestinal: Reports no additional gastrointestinal complaints Genitourinary: Genitourinary: Reports no additional female genitourinary complaints Musculoskeletal: Musculoskeletal: Reports no additional musculoskeletal complaints Integumentary/Breasts: Skin/Breast: Reports system reviewed and no additional complaints, except as docu Neurologic: Reports system reviewed and no additional complaints, except as documented Psychiatric: Psychiatric: Reports no additional psychiatric complaints and Reports as per HPI Endocrine: Endocrine: Reports no additional endocrine complaints and Reports as per HPI Hematologic/Lymphatic: Hematologic/Lymphatic: Reports no additional hematologic/lymphatic complaints and Reports as per HPI Allergic/Immunologic: Allergic/Immunologic: Reports no additional allergic/immunologic complaints and Reports as per HPI Exam Const: General: cooperative, no acute distress, alert and awake Nutritional Appearance: obese HENMT: Head: normal to inspection and normocephalic Eyes: General: appearance normal, both eyes and all related structures Neck: Neck: full ROM and no lymphadenopathy Chest: Chest palpation & inspection: normal inspection of the chest Resp: Effort & Inspection: normal respiratory effort and able to speak in complete sentences Auscultation: clear to auscultation bilaterally Cardio: Jugular venous distension: no JVD Palpation: normal PMI Rate: regular rate Rhythm: regular rhythm Heart sounds: S1 normal heart sound present and S2 normal heart sound present GI: Inspection: normal to inspection GI Palp: Yes Soft to palpation Auscultation: High-pitched bowel sounds present Other: rectal tube in place and draining liquid stool Urinary Catheter: Urinary Catheter: patent and draining and urine clear Skin: General skin exam: normal color and no rashes or lesions noted Neuro: General: oriented to person, oriented to place, oriented to time, tone normal and moves all extremities Extrem: General: full ROM Psych: Appearance: grossly normal Mental Status: mental status grossly no rmal Speech and movement: Normal speech and movement present Objective Data Vital Signs Vital Signs: Vital Signs - 24 hr 07/13/24 13:44 07/13/24 13:44 07/13/24 13:54 Temperature Pulse Rate 84 81 Respiratory Rate 16 16 Blood Pressure Pulse Oximetry 91 Oxygen Delivery Room Air Fraction of Inspired Oxygen 21 07/13/24 16:00 07/13/24 20:00 07/13/24 20:21 Temperature 97.7 F Pulse Rate 91 86 Respiratory Rate 16 16 Blood Pressure 137/62 Pulse Oximetry 94 Oxygen Delivery Room Air Fraction of Inspired Oxygen 07/13/24 20:24 07/13/24 20:32 07/13/24 20:54 Temperature Pulse Rate 88 88 Respiratory Rate 16 Blood Pressure Pulse Oximetry 92 Oxygen Delivery Room Air Fraction of Inspired Oxygen 21 07/13/24 21:53 07/14/24 06:00 Temperature 97.1 F L 97 F L Pulse Rate 92 80 Respiratory Rate 18 18 Blood Pressure 140/69 152/78 H Pulse Oximetry 93 97 Oxygen Delivery Fraction of Inspired Oxygen Intake/Output Intake/Output: Intake & Output 07/11/24 07/12/24 07/13/24 07/14/24 23:59 23:59 23:59 23:59 Intake Total 1380 603 290 200 Output Total 850 750 650 150 Balance 530 -350 -946 50 Meds/Results Medications: Active Medications Generic Name Dose Route Start Last Admin Trade Name Freq PRN Reason Stop Dose Admin Acetaminophen 1,000 mg 07/11/24 16:52 Acetaminophen 500 Mg Tablet PO Q6H PRN Mild Pain (1-3) or Fever Albuterol/Ipratropium 3 ml 07/11/24 20:00 07/14/24 08:01 Ipratropium 0.5 Mg/Albuterol Sulfate 2.5 Mg Ampul.Neb 3 Ml INHALATION Not Given Q6HRT SOLITARIO Alprazolam 1 mg 07/03/24 00:03 07/11/24 21:47 Alprazolam (*Crx) 0.5 Mg Tablet PO 1 mg QID PRN Administration anxiety Apixaban 5 mg 07/12/24 21:00 07/14/24 09:17 Apixaban 5 Mg Tablet PO 5 mg Q12HR SOLITARIO Administration Atorvastatin Calcium 80 mg 07/04/24 21:00 07/14/24 09:17 Atorvastatin 40 Mg Tablet PO 80 mg DAILY SOLITARIO Administration Calcium Carbonate 500 mg 07/14/24 08:00 07/14/24 09:23 Calcium Carbonate (Oscal) 500 Mg Tablet PO 500 mg BIDWM SOLITARIO Administration Cyanocobalamin 1,000 mcg 07/12/24 09:00 07/14/24 09:18 Cyanocobalamin 1,000 Mcg Tablet PO 1,000 mcg DAILY SOLITARIO Administration Folic Acid 1 mg 07/03/24 09:00 07/14/24 09:18 Folic Acid 1 Mg Tablet PO 1 mg DAILY SOLITARIO Administration Guaifenesin 1,200 mg 07/11/24 21:00 07/14/24 09:17 Guaifenesin 12 Hr 600 Mg Tabcr PO 1,200 mg Q12HR SOLITARIO Administration Levetiracetam 500 mg 07/03/24 12:30 07/14/24 09:18 Levetiracetam 500 Mg Tablet PO 500 mg Q12HR SOLITARIO Administration Levothyroxine Sodium 75 mcg 07/03/24 06:30 07/14/24 06:22 Levothyroxine Sodium 75 Mcg Tablet PO 75 mcg DAILY@0630 SOLITARIO Administration Lidocaine 1 patch 07/12/24 09:00 07/14/24 09:18 Lidocaine 5% Patch TRANSDERM 1 patch DAILY SOLITARIO Administration Lorazepam 1 mg 07/02/24 23:55 Lorazepam Inj (*Crx) 2 Mg/Ml Vial IV PUSH Q2H PRN Seizures Magnesium Oxide 400 mg 07/06/24 17:00 07/14/24 09:18 Magnesium Oxide 400 Mg Tablet PO 400 mg BID SOLITARIO Administration Metoprolol Tartrate 50 mg 07/03/24 09:00 07/14/24 09:18 Metoprolol Tartrate 50 Mg Tab PO 50 mg Q12HR SOLITARIO Administration Montelukast Sodium 10 mg 07/03/24 00:15 07/13/24 20:54 Montelukast Sodium 10 Mg Tablet PO 10 mg HS SOLITARIO Administration Olmesartan 40 mg 07/03/24 09:00 07/14/24 09:17 Olmesartan Medoxomil 20 Mg Tablet PO 40 mg DAILY SOLITARIO Administration Oseltamivir Phosphate 30 mg 07/11/24 21:00 07/14/24 09:17 Oseltamivir Phosphate 30 Mg Capsule PO 07/16/24 20:59 30 mg Q12HR SOLITARIO Administration Pantoprazole Sodium 40 mg 07/09/24 12:35 07/14/24 09:18 Pantoprazole Sodium Iv 40 Mg Vial IV PUSH 40 mg Q12HR SOLITARIO Administration Sodium Bicarbonate 650 mg 07/11/24 17:00 07/14/24 09:18 Sodium Bicarbonate Tab 650 Mg Tablet PO 650 mg BID SOLITARIO Administration Sodium Chloride 20 ml 07/04/24 16:15 Central Line Flush IV PUSH PRN PRN after blood draws Sodium Chloride 10 ml 07/04/24 16:15 Central Line Flush IV PUSH PRN PRN with TPN bag changes Sodium Chloride 10 ml 07/04/24 22:00 07/14/24 06:22 Central Line Flush IV PUSH 10 ml Q8HR SOLITARIO Administration Tramadol HCl 100 mg 07/11/24 16:49 07/13/24 02:03 Tramadol Hcl (*Crx) 50 Mg Tablet PO 100 mg HS PRN Administration Pain Rated 4-6 (night) Tramadol HCl 50 mg 07/11/24 16:49 07/13/24 10:27 Tramadol Hcl (*Crx) 50 Mg Tablet PO 50 mg DAILY PRN Administration Pain Rated 4-6 (day) Trazodone HCl 100 mg 07/11/24 21:00 07/13/24 20:54 Trazodone Hcl 50 Mg Tablet PO 100 mg HS SOLITARIO Administration Vancomycin HCl 125 mg 07/09/24 17:00 07/14/24 09:17 Vancomycin Hcl 125 Mg Oral Capsule PO 125 mg QID SOLITARIO Administration Radiology Results: ITS Impressions Head CT 07/02/24 14:34 IMPRESSION: 1. Normal aging brain. Abdomen/Pelvis CT 07/02/24 14:36 IMPRESSION: 1. Persistent small collection of extra luminal gas in the left lower quadrant anterior abdominal wall immediately adjacent to a region of inflammatory stranding surrounding the descending colon consistent with diverticulitis. No abscess or more remote free intraperineal gas or fluid. 2. Persistent moderate-sized bilateral posterior layering pleural effusions with dependent compressive atelectasis in the visualized lower lobes. Brain MRI 07/04/24 11:30 IMPRESSION: 1. 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 2. 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 3. Diffuse pachymeningeal enhancement. This finding is most commonly secondary to prior lumbar puncture or spine procedure. ADDENDUM: 07/04/24 1216 The contrast volume was 20 mL MultiHance. Venous Doppler Study 07/05/24 14:17 IMPRESSION: 1. Extensive deep vein thrombosis in right lower limb. I called this result to Elsy Tao. Chest X-Ray 07/11/24 15:04 IMPRESSION: 1. Improved airspace opacities at left lung base, consistent with atelectasis versus pneumonia. 2. Improved small left pleural effusion. Labs Labs: Laboratory Results - last 24 hr 07/14/24 07/14/24 07/14/24 06:19 07:24 07:24 WBC 5.7 RBC 2.56 L Hgb 8.0 L Hct 25.2 L MCV 98.4 MCH 31.3 MCHC 31.7 L RDW 20.9 H Plt Count 240 MPV 10.6 H Immature Gran % (Auto) 0.7 H Neut % (Auto) 67.5 Lymph % (Auto) 23.5 Carbon % (Auto) 7.4 Eos % (Auto) 0.7 Baso % (Auto) 0.2 Lymph # (Auto) 1.33 Carbon # (Auto) 0.4 Eos # (Auto) 0.0 Baso # (Auto) 0.0 Abs Immat Gran (auto) 0.04 H Absolute Neuts (auto) 3.8 Absolute Nucleated RBC 0.000 Nucleated RBC % 0.0 Sodium 139 Potassium 3.6 Chloride 110 H Carbon Dioxide 20 L Anion Gap 9 BUN 18 H Creatinine 1.28 H Estim Creat Clear Calc 40 Estimated GFR 41 L Glucose 73 Calcium 7.5 L Magnesium 1.7 Iron 29 L TIBC 120 L % Saturation 24 Ferritin Cancelled 606.00 H Total Bilirubin 0.6 AST 38 H ALT 13 Alkaline Phosphatase 89 Total Protein 5.0 L Albumin 2.1 L
[2024-07-14] MEDS: IPRATROPIUM 0.5 MG/ALBUTEROL SULFATE 2.5 MG AMPUL.NEB 3 ML INHALATION ×2 (15:28→19:53)
[2024-07-14] MEDS: MONTELUKAST SODIUM 10 MG TABLET PO (21:38)
[2024-07-14] MEDS: traZODone HCL 50 MG TABLET 100 MG PO (22:36)
[2024-07-15] VITALS (13 sets, daily range): BP systolic 121–151; BP diastolic 71–78; PULSE 79–104; RESP 16–20; TEMP 36.4–36.9; O2SAT 93–100
[2024-07-15] MEDS: IPRATROPIUM 0.5 MG/ALBUTEROL SULFATE 2.5 MG AMPUL.NEB 3 ML INHALATION ×4 (01:39→20:10)
[2024-07-15] MEDS: ACETAMINOPHEN 500 MG TABLET 1000 MG PO (04:01)
[2024-07-15] MEDS: ALPRAZolam (*CRX) 0.5 MG TABLET 1 MG PO (04:01)
[2024-07-15] MEDS: CENTRAL LINE FLUSH 10 ML IV PUSH ×3 (06:05→20:35)
[2024-07-15] MEDS: LEVOTHYROXINE SODIUM 75 MCG TABLET PO (06:05)
[2024-07-15 06:21] LABS: Basophils Percent Auto 0.2 % (0.2-1.2); Eosinophils Percent Auto 0.4 % (0-4.4); Hematocrit 23.5 % (37.0-47.0); Hemoglobin 7.5 g/dL (12.0-15.0); Immature Granulocyte Absolute 0.04 K/mm3 (0.00-0.031); Immature Granulocyte Percent A 0.7 % (0-0.5); Lymphocytes Absolute Auto 1.37 K/mm3 (0.9-3.2); Lymphocytes Percent Auto 24.4 % (18.3-44.2); Mean Corpuscular HGB Conc 31.9 g/dl (32-36); Mean Corpuscular Hemoglobin 31.9 pg (26-34); Mean Platelet Volume 10.6 fl (7.4-10.4); Monocytes Absolute Auto 0.4 K/mm3 (0.1-0.6); Monocytes Percent Auto 6.8 % (2.6-8.5); Neutrophils Absolute Auto 3.8 K/mm3 (1.3-6.7); Neutrophils Percent Auto 67.5 % (45.5-73.1); Platelet Count Result 234 k/mm3 (150-375); Red Blood Count 2.35 M/mm3 (4.2-5.4); Red Cell Distribution Width 20.8 % (11.5-14.5); White Blood Count 5.6 K/mm3 (4.5-10.0)
[2024-07-15 06:31] LABS: Alanine Aminotransferase 13 U/L (6-35); Albumin Level 2.3 g/dL (3.5-5.1); Alkaline Phosphatase 88 U/L (38-126); Anion Gap 9 mmol/L (4-12); Aspartate Amino Transferase 36 U/L (14-36); Bilirubin,Total 0.8 mg/dL (0.2-1.3); Blood Urea Nitrogen 16 mg/dL (7-17); Calcium 7.7 mg/dL (8.4-10.2); Carbon Dioxide 19 mmol/L (22-30); Chloride 111 mmol/L (98-107); Estimated CRCL calculation 40 ml/min; Estimated Glomerular Filt Rate 42; Glucose 68 mg/dL (65-110); Potassium 3.5 mmol/L (3.4-5.0); Sodium 139 mmol/L (137-145)
[2024-07-15] MEDS: OLMESARTAN MEDOXOMIL 20 MG TABLET 40 MG PO (08:12)
[2024-07-15] MEDS: MAGNESIUM OXIDE 400 MG TABLET PO ×2 (08:13→16:36)
[2024-07-15] MEDS: VANCOMYCIN HCL 125 MG ORAL CAPSULE PO ×4 (08:13→20:35)
[2024-07-15] MEDS: METOPROLOL TARTRATE 50 MG TAB PO ×2 (08:13→20:34)
[2024-07-15] MEDS: levETIRAcetam 500 MG TABLET PO ×2 (08:13→20:35)
[2024-07-15] MEDS: CYANOCOBALAMIN 1,000 MCG TABLET 1000 MCG PO (08:13)
[2024-07-15] MEDS: guaiFENesin 12 HR 600 MG TABCR 1200 MG PO ×2 (08:13→20:34)
[2024-07-15] MEDS: FERROUS SULFATE 325 MG TABLET DR PO (08:13)
[2024-07-15] MEDS: OSELTAMIVIR PHOSPHATE 30 MG CAPSULE PO ×2 (08:13→20:33)
[2024-07-15] MEDS: APIXABAN 5 MG TABLET PO ×2 (08:13→20:35)
[2024-07-15] MEDS: SODIUM BICARBONATE TAB 650 MG TABLET PO ×2 (08:13→16:35)
[2024-07-15] MEDS: FOLIC ACID 1 MG TABLET PO (08:13)
[2024-07-15] MEDS: CALCIUM CARBONATE (OSCAL) 500 MG TABLET PO ×2 (08:13→16:35)
[2024-07-15] MEDS: ATORVASTATIN 40 MG TABLET 80 MG PO (08:16)
[2024-07-15] MEDS: PANTOPRAZOLE SODIUM IV 40 MG VIAL IV PUSH ×2 (08:19→20:33)
--- NOTE | 2024-07-15 12:38 | PCPTNOTE ---
On 07/15/24, the student, COURTNEY Vigil, provided care and completed [facility] documentation on this patient. I have reviewed the student's documentation and agree with the findings.
[2024-07-15] MEDS: traMADol HCL (*CRX) 50 MG TABLET PO (16:35)
--- NOTE | 2024-07-15 16:40 | P.PNIM_ITS ---
Progress Note: A&P Assessment and Plan (1) Seizure: Code(s): R56.9 - Unspecified convulsions Status: Acute Assessment and Plan: 07/11 * New onset * CT of the head was negative * MRI showing acute infarct in the left frontoparietal lobe in deep white matter * EEG findings abnormal read, cannot rule out seizure activity * Continue atorvastatin, Plavix * Will hold baby aspirin considering patient is on Eliquis * Continue Keppra * Continue seizure precautions * Cardiac telemetry stable, we will go ahead and discontinue continuous telemetry * Move out of IMU to regular med surge floor 07/15 * continue neuro checks * continue seizure precautions * continue Keppra, atorvastatin, Plavix * neurology following (2) Post-ictal confusion: Code(s): F05 - Delirium due to known physiological condition Status: Resolved Assessment and Plan: 07/11/24 * Resolved * Currently alert oriented x3 (3) Acute DVT (deep venous thrombosis): Code(s): I82.409 - Acute embolism and thrombosis of unspecified deep veins of unspecified lower extremity Status: Acute Assessment and Plan: 07/11/24 * Venous Doppler showing extensive right lower extremity DVT * Patient was started on Lovenox and then switched to heparin infusion on 07/09/2024. She later developed dark tarry stools and a drop in her hemoglobin requiring blood transfusion. Heparin drip was placed on hold for 24 hours and then she was restarted on Eliquis 10 mg daily x7 days--standard protocol * General surgery was consulted for IVC filter however she is not a candidate at this time due to her other comorbidities * Continue Eliquis as stated above 07/15 * continue Eliquis (4) CVA (cerebral vascular accident): Code(s): I63.9 - Cerebral infarction, unspecified Status: Acute Assessment and Plan: 07/11/24: * MRA of brain showing acute infarct in the left frontoparietal lobe in the deep white matter * Left lower extremity weakness * PT and OT ordered * Continue atorvastatin, Plavix * Aspirin currently on hold as she is on Eliquis for DVT prophylaxis * A Neurology following 07/15 * continue Eliquis * neurology following (5) Occult blood in stools: Code(s): R19.5 - Other fecal abnormalities Status: Acute Assessment and Plan: 07/11/24 * Patient was occult blood positive on 07/09/2024 * She was given 1 unit of blood * H&H is stable * GI recommending outpatient colonoscopy considering her comorbidities * Recently diagnosed with diverticulitis and C diff colitis 07/15 * hemoglobin 7.5 * continue to trend (6) Diverticulitis of intestine with perforation without abscess: Qualifiers: Diverticulitis bleeding: without bleeding Diverticulitis site: large intestine Qualified Code(s): K57.20 - Diverticulitis of large intestine with perforation and abscess without bleeding Code(s): K57.80 - Diverticulitis of intestine, part unspecified, with perforation and abscess without bleeding Status: Acute Assessment and Plan: 07/11/24 * Failed Dificid * Continue oral vancomycin 07/15 * continue oral vancomycin (7) Urinary retention: Code(s): R33.9 - Retention of urine, unspecified Status: Acute Assessment and Plan: 07/11/24: * Patient had acute urinary retention requiring Leija on 07/03/24 * Urology was consulted * Patient failed voiding trial * Patient will keep catheter and repeat voiding trial in 1-2 weeks on an outpatient basis with Urology 07/15 * no change to current treatment plan (8) Hypokalemia: Code(s): E87.6 - Hypokalemia Status: Acute Assessment and Plan: 07/11/24: * Potassium 4.3 * No need for replacement * Resolved 07/15 * potassium 3.5 * no replacement needed (9) C. difficile diarrhea: Code(s): A04.72 - Enterocolitis due to Clostridium difficile, not specified as recurrent Status: Acute Assessment and Plan: 07/11/24 * Continue vancomycin pulse dosing * Pulse taper vanc dose as follows: 125 mg orally 4 times daily for 10 to 14 days, then 125 mg orally twice daily for 7 days, then 125 mg orally once daily for 7 days, then 125 mg orally every 2 to 3 days for 2 to 8 weeks 07/15 * no change to current treatment plan (10) Hypothyroidism: Qualifiers: Hypothyroidism type: unspecified Qualified Code(s): E03.9 - Hypothyroidism, unspecified Code(s): E03.9 - Hypothyroidism, unspecified Status: Chronic Assessment and Plan: 07/11/24 * Continue Synthroid 07/15 * no change to current treatment plan (11) Hypertension: Qualifiers: Hypertension type: primary hypertension Qualified Code(s): I10 - Essential (primary) hypertension Code(s): I10 - Essential (primary) hypertension Status: Chronic Assessment and Plan: 07/11/25 * Blood pressure ranging 105/ 81 to 146/73 * Continue metoprolol, Benicar and monitor. 07/15 * no change to current treatment plan (12) Anemia: Qualifiers: Anemia type: due to chronic kidney disease Chronic kidney disease stage: unspecified stage Qualified Code(s): N18.9 - Chronic kidney disease, unspecified; D63.1 - Anemia in chronic kidney disease Code(s): D64.9 - Anemia, unspecified Status: Acute Assessment and Plan: 07/11/24 * Continue to transfuse for hemoglobin less than 7 * Patient receive 1 unit of blood this admission * Currently on Eliquis, Plavix * Will hold aspirin * Continue to trend 07/15 * hemoglobin 7.5 * no change to current treatment plan (13) Upper respiratory infection: Code(s): J06.9 - Acute upper respiratory infection, unspecified Status: Acute Assessment and Plan: 07/11/24 * Patient reported cold-like symptoms with a nonproductive cough and wheezing * Will check for influenza a and B, RSV, COVID * Start DuoNebs q.6 hour * Will obtain chest x-ray * Incentive spirometry while awake * Pep therapy with cornet flutter valve 07/15 * no change to current treatment plan (14) Delirium: Code(s): R41.0 - Disorientation, unspecified Status: Acute Assessment and Plan: 07/15 * more confused today * continue neuro checks * encourage good sleep hygiene Subjective Date/time seen: 07/15/24 16:40 Interval history: Interval history: This is a 73-year-old female who presented to the hospital on 07/02/2024 via EMS from [facility] for evaluation of altered mental status. While in the ED she had a witnessed seizure for which she was given Ativan 2 mg and a loading dose of Keppra. Workup in the hospital included chest x-ray which showed small pleural effusions, airspace opacities in the lung bases consistent with atelectasis versus pneumonia. Head CT showed a normal aging brain. Abdomen/pelvis CT showed persistent small collection of extraluminal gas in the left lower quadrant anterior abdominal wall immediately adjacent to a region of inflammatory stranding surrounding the descending colon consistent with diverticulitis, persistent moderate-sized bilateral posterior layering pleural effusions with dependent compressive atelectasis in the lower lobes. Brain MRI showed acute infarct in the left frontoparietal deep white matter, subcortical increased T2 weighted signal intensity in the parietal and occipital lobes, diffuse pachymeningeal enhancement. EEG showed abnormal record due to the absence of a normal background rhythm and presence of excessive amount theta activity. Venous Doppler showed extensive deep vein thrombosis in the right lower limb. Initial labs showed a white blood cell count of 15.5, hemoglobin 10.2, anion gap 17, creatinine 1.45, EGFR 35, lactic acid 2.7> 2.3. UA showed 1+ urine protein, 1+ urine ketone, positive nitrate, trace leukocyte, 6-10 urine RBC. Toxic collagen screening was positive for urine opiates otherwise negative. Respiratory panel was negative. Blood cultures were obtained and negative on final read. Urine culture was obtained and negative on final read. Echocardiogram shown normal LV systolic function with an estimated EF of 60-65%, grade 1 diastolic dysfunction. Patient was initially started on a heparin infusion for DVT however H&H dropped on 07/10/24-6.3/20.6 requiring blood transfusion and heparin was held. She was occult blood positive. GI was consul stefania however was deemed a poor candidate for endoscopic evaluation due to her multiple comorbidities and diverticulitis/recent C diff. and is recommending outpatient colonoscopy when more stable. General surgery was also consulted for IVC filter however they are holding off due to her multiple comorbidities as well, she was deemed not a candidate at this time. Patient was started on Eliquis on 07/10/2024. Patient also had urinary retention requiring Leija to be placed. She failed voiding trial and Urology was consulted. Urology will see patient in 2 weeks on an outpatient basis for another voiding trial. Subjective: patient confused / delirium. Labs and imaging reviewed. Review of Systems Review of Systems: All systems reviewed & are unremarkable except as noted in HPI and below Exam Narrative: General: In no acute distress, well nourished Cardiac: Normal S1 and S2. No murmur, gallops or friction rubs, peripheral pulses intact. Respiratory: Wheezing noted bilaterally, no other adventitious lung sounds, nonproductive tight cough, currently on room air Gastrointestinal: soft, non-distended, non-tender, normoactive bowel sounds. : voiding without difficulty. Neuro: Alert and oriented x3, Appears delirious at times Objective Data Vital Signs Vital Signs: Vital Signs - 24 hr 07/14/24 19:53 07/14/24 19:53 07/14/24 20:00 Temperature Pulse Rate 80 Respiratory Rate 18 Blood Pressure Pulse Oximetry 93 Oxygen Delivery Room Air Room Air 07/14/24 20:00 07/14/24 20:04 07/14/24 21:38 Temperature 98 F Pulse Rate 86 86 86 Respiratory Rate 18 18 Blood Pressure 144/65 H Pulse Oximetry 96 Oxygen Delivery 07/15/24 00:00 07/15/24 01:39 07/15/24 01:50 Temperature 98.5 F Pulse Rate 87 80 82 Respiratory Rate 16 18 18 Blood Pressure 121/78 Pulse Oximetry 98 Oxygen Delivery 07/15/24 07:38 07/15/24 07:38 07/15/24 07:56 Temperature Pulse Rate 79 82 Respiratory Rate 20 20 Blood Pressure Pulse Oximetry 93 Oxygen Delivery Room Air 07/15/24 13:55 07/15/24 13:55 07/15/24 14:00 Temperature 97.6 F Pulse Rate 84 91 Respiratory Rate 20 16 Blood Pressure 151/71 H Pulse Oximetry 99 100 Oxygen Delivery Room Air 07/15/24 14:03 Temperature Pulse Rate 83 Respiratory Rate 20 Blood Pressure Pulse Oximetry Oxygen Delivery Intake/Output Intake/Output: Intake & Output 07/12/24 07/13/24 07/14/24 07/15/24 23:59 23:59 23:59 23:59 Intake Total 603 290 200 420 Output Total 750 650 150 550 Balance -147 -360 50 -130 Meds/Results Medications: Active Medications Generic Name Dose Route Start Last Admin Trade Name Freq PRN Reason Stop Dose Admin Acetaminophen 1,000 mg 07/11/24 16:52 07/15/24 04:01 Acetaminophen 500 Mg Tablet PO 1,000 mg Q6H PRN Administration Mild Pain (1-3) or Fever Albuterol/Ipratropium 3 ml 07/11/24 20:00 07/15/24 13:55 Ipratropium 0.5 Mg/Albuterol Sulfate 2.5 Mg Ampul.Neb 3 Ml INHALATION 3 ml Q6HRT SOLITARIO Administration Alprazolam 1 mg 07/03/24 00:03 07/15/24 04:01 Alprazolam (*Crx) 0.5 Mg Tablet PO 1 mg QID PRN Administration anxiety Apixaban 5 mg 07/12/24 21:00 07/15/24 08:13 Apixaban 5 Mg Tablet PO 5 mg Q12HR SOLITARIO Administration Atorvastatin Calcium 80 mg 07/04/24 21:00 07/15/24 08:16 Atorvastatin 40 Mg Tablet PO 80 mg DAILY SOLITARIO Administration Calcium Carbonate 500 mg 07/14/24 08:00 07/15/24 16:35 Calcium Carbonate (Oscal) 500 Mg Tablet PO 500 mg BIDWM SOLIATRIO Administration Cyanocobalamin 1,000 mcg 07/12/24 09:00 07/15/24 08:13 Cyanocobalamin 1,000 Mcg Tablet PO 1,000 mcg DAILY SOLITARIO Administration Ferrous Sulfate 325 mg 07/15/24 09:00 07/15/24 08:13 Ferrous Sulfate [address] PO 325 mg DAILY SOLITARIO Administration Folic Acid 1 mg 07/03/24 09:00 07/15/24 08:13 Folic Acid 1 Mg Tablet PO 1 mg DAILY SOLITARIO Administration Guaifenesin 1,200 mg 07/11/24 21:00 07/15/24 08:13 Guaifenesin 12 Hr 600 Mg Tabcr PO 1,200 mg Q12HR SOLITARIO Administration Levetiracetam 500 mg 07/03/24 12:30 07/15/24 08:13 Levetiracetam 500 Mg Tablet PO 500 mg Q12HR SOLITARIO Administration Levothyroxine Sodium 75 mcg 07/03/24 06:30 07/15/24 06:05 Levothyroxine Sodium 75 Mcg Tablet PO 75 mcg DAILY@0630 SOLITARIO Administration Lidocaine 1 patch 07/12/24 09:00 07/15/24 08:16 Lidocaine 5% Patch TRANSDERM Not Given DAILY [facility] Lorazepam 1 mg 07/02/24 23:55 Lorazepam Inj (*Crx) 2 Mg/Ml Vial IV PUSH Q2H PRN Seizures Magnesium Oxide 400 mg 07/06/24 17:00 07/15/24 16:36 Magnesium Oxide 400 Mg Tablet PO 400 mg BID SOLITARIO Administration Metoprolol Tartrate 50 mg 07/03/24 09:00 07/15/24 08:13 Metoprolol Tartrate 50 Mg Tab PO 50 mg Q12HR SOLITARIO Administration Montelukast Sodium 10 mg 07/03/24 00:15 07/14/24 21:38 Montelukast Sodium 10 Mg Tablet PO 10 mg HS SOLITARIO Administration Olmesartan 40 mg 07/03/24 09:00 07/15/24 08:12 Olmesartan Medoxomil 20 Mg Tablet PO 40 mg DAILY SOLITARIO Administration Oseltamivir Phosphate 30 mg 07/11/24 21:00 07/15/24 08:13 Oseltamivir Phosphate 30 Mg Capsule PO 07/16/24 20:59 30 mg Q12HR SOLITARIO Administration Pantoprazole Sodium 40 mg 07/09/24 12:35 07/15/24 08:19 Pantoprazole Sodium Iv 40 Mg Vial IV PUSH 40 mg Q12HR SOLITARIO Administration Sodium Bicarbonate 650 mg 07/11/24 17:00 07/15/24 16:35 Sodium Bicarbonate Tab 650 Mg Tablet PO 650 mg BID SOLITARIO Administration Sodium Chloride 20 ml 07/04/24 16:15 Central Line Flush IV PUSH PRN PRN after blood draws Sodium Chloride 10 ml 07/04/24 16:15 Central Line Flush IV PUSH PRN PRN with TPN bag changes Sodium Chloride 10 ml 07/04/24 22:00 07/15/24 12:32 Central Line Flush IV PUSH 10 ml Q8HR SOLITARIO Administration Tramadol HCl 100 mg 07/11/24 16:49 07/13/24 02:03 Tramadol Hcl (*Crx) 50 Mg Tablet PO 100 mg HS PRN Administration Pain Rated 4-6 (night) Tramadol HCl 50 mg 07/11/24 16:49 07/15/24 16:35 Tramadol Hcl (*Crx) 50 Mg Tablet PO 50 mg DAILY PRN Administration Pain Rated 4-6 (day) Trazodone HCl 100 mg 07/11/24 21:00 07/14/24 22:36 Trazodone Hcl 50 Mg Tablet PO 100 mg HS SOLITARIO Administration Vancomycin HCl 125 mg 07/09/24 17:00 07/15/24 16:36 Vancomycin Hcl 125 Mg Oral Capsule PO 125 mg QID SOLITARIO Administration Radiology Results: ITS Impressions Head CT 07/02/24 14:34 IMPRESSION: 1. Normal aging brain. Abdomen/Pelvis CT 07/02/24 14:36 IMPRESSION: 1. Persistent small collection of extra luminal gas in the left lower quadrant anterior abdominal wall immediately adjacent to a region of inflammatory stranding surrounding the descending colon consistent with diverticulitis. No abscess or more remote free intraperineal gas or fluid. 2. Persistent moderate-sized bilateral posterior layering pleural effusions with dependent compressive atelectasis in the visualized lower lobes. Brain MRI 07/04/24 11:30 IMPRESSION: 1. 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 2. 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 3. Diffuse pachymeningeal enhancement. This finding is most commonly secondary to prior lumbar puncture or spine procedure. ADDENDUM: 07/04/24 1216 The contrast volume was 20 mL MultiHance. Venous Doppler Study 07/05/24 14:17 IMPRESSION: 1. Extensive deep vein thrombosis in right lower limb. I called this result to Elsy Tao. Chest X-Ray 07/11/24 15:04 IMPRESSION: 1. Improved airspace opacities at left lung base, consistent with atelectasis ve rsus pneumonia. 2. Improved small left pleural effusion. Labs Labs: Laboratory Results - last 24 hr 07/15/24 06:14 WBC 5.6 RBC 2.35 L Hgb 7.5 L Hct 23.5 L MCV 100.0 MCH 31.9 MCHC 31.9 L RDW 20.8 H Plt Count 234 MPV 10.6 H Immature Gran % (Auto) 0.7 H Neut % (Auto) 67.5 Lymph % (Auto) 24.4 [place] % (Auto) 6.8 Eos % (Auto) 0.4 Baso % (Auto) 0.2 Lymph # (Auto) 1.37 [place] # (Auto) 0.4 Eos # (Auto) 0.0 Baso # (Auto) 0.0 Abs Immat Gran (auto) 0.04 H Absolute Neuts (auto) 3.8 Absolute Nucleated RBC 0.000 Nucleated RBC % 0.0 Sodium 139 Potassium 3.5 Chloride 111 H Carbon Dioxide 19 L Anion Gap 9 BUN 16 Creatinine 1.26 H Estim Creat Clear Calc 40 Estimated GFR 42 L Glucose 68 Calcium 7.7 L Total Bilirubin 0.8 AST 36 ALT 13 Alkaline Phosphatase 88 Total Protein 5.0 L Albumin 2.3 L Quality VTE Prophylaxis VTE prophylaxis: pharmacologic ordered
[2024-07-15] MEDS: traMADol HCL (*CRX) 50 MG TABLET 100 MG PO (20:33)
[2024-07-15] MEDS: traZODone HCL 50 MG TABLET 100 MG PO (20:34)
[2024-07-15] MEDS: MONTELUKAST SODIUM 10 MG TABLET PO (20:35)
[2024-07-16] VITALS (10 sets, daily range): BP systolic 124–137; BP diastolic 63–82; PULSE 78–99; RESP 16–20; TEMP 36.4–36.8; O2SAT 95–99
[2024-07-16] MEDS: LEVOTHYROXINE SODIUM 75 MCG TABLET PO (05:23)
[2024-07-16] MEDS: CENTRAL LINE FLUSH 10 ML IV PUSH ×3 (05:24→21:26)
[2024-07-16 05:25] LABS: Basophils Percent Auto 0.1 % (0.2-1.2); Hematocrit 23.3 % (37.0-47.0); Hemoglobin 7.3 g/dL (12.0-15.0); Immature Granulocyte Absolute 0.05 K/mm3 (0.00-0.031); Immature Granulocyte Percent A 0.6 % (0-0.5); Lymphocytes Absolute Auto 1.15 K/mm3 (0.9-3.2); Lymphocytes Percent Auto 12.8 % (18.3-44.2); Mean Corpuscular HGB Conc 31.3 g/dl (32-36); Mean Corpuscular Hemoglobin 31.6 pg (26-34); Mean Corpuscular Volume 100.9 fl (80-100); Mean Platelet Volume 10.8 fl (7.4-10.4); Monocytes Absolute Auto 0.5 K/mm3 (0.1-0.6); Monocytes Percent Auto 5.8 % (2.6-8.5); Neutrophils Absolute Auto 7.2 K/mm3 (1.3-6.7); Neutrophils Percent Auto 80.7 % (45.5-73.1); Platelet Count Result 236 k/mm3 (150-375); Red Blood Count 2.31 M/mm3 (4.2-5.4); Red Cell Distribution Width 21.1 % (11.5-14.5)
[2024-07-16 05:43] LABS: Alanine Aminotransferase 15 U/L (6-35); Albumin Level 2.4 g/dL (3.5-5.1); Alkaline Phosphatase 124 U/L (38-126); Anion Gap 12 mmol/L (4-12); Aspartate Amino Transferase 39 U/L (14-36); Bilirubin,Total 0.9 mg/dL (0.2-1.3); Blood Urea Nitrogen 16 mg/dL (7-17); Calcium 7.8 mg/dL (8.4-10.2); Carbon Dioxide 17 mmol/L (22-30); Chloride 111 mmol/L (98-107); Estimated CRCL calculation 43 ml/min; Estimated Glomerular Filt Rate 46; Glucose 85 mg/dL (65-110); Potassium 3.7 mmol/L (3.4-5.0); Sodium 140 mmol/L (137-145)
[2024-07-16] MEDS: IPRATROPIUM 0.5 MG/ALBUTEROL SULFATE 2.5 MG AMPUL.NEB 3 ML INHALATION ×3 (07:23→20:00)
[2024-07-16] MEDS: CALCIUM CARBONATE (OSCAL) 500 MG TABLET PO ×2 (09:35→16:40)
[2024-07-16] MEDS: SODIUM BICARBONATE TAB 650 MG TABLET PO ×2 (09:35→16:41)
[2024-07-16] MEDS: OLMESARTAN MEDOXOMIL 20 MG TABLET 40 MG PO (09:35)
[2024-07-16] MEDS: MAGNESIUM OXIDE 400 MG TABLET PO ×2 (09:35→16:41)
[2024-07-16] MEDS: FERROUS SULFATE 325 MG TABLET DR PO (09:35)
[2024-07-16] MEDS: METOPROLOL TARTRATE 50 MG TAB PO ×2 (09:35→21:24)
[2024-07-16] MEDS: VANCOMYCIN HCL 125 MG ORAL CAPSULE PO ×4 (09:35→21:24)
[2024-07-16] MEDS: levETIRAcetam 500 MG TABLET PO ×2 (09:36→21:24)
[2024-07-16] MEDS: CYANOCOBALAMIN 1,000 MCG TABLET 1000 MCG PO (09:36)
[2024-07-16] MEDS: APIXABAN 5 MG TABLET PO ×2 (09:36→21:24)
[2024-07-16] MEDS: OSELTAMIVIR PHOSPHATE 30 MG CAPSULE PO (09:36)
[2024-07-16] MEDS: ATORVASTATIN 40 MG TABLET 80 MG PO (09:36)
[2024-07-16] MEDS: FOLIC ACID 1 MG TABLET PO (09:36)
[2024-07-16] MEDS: guaiFENesin 12 HR 600 MG TABCR 1200 MG PO ×2 (09:36→21:24)
[2024-07-16] MEDS: PANTOPRAZOLE SODIUM IV 40 MG VIAL IV PUSH ×2 (09:37→21:23)
--- NOTE | 2024-07-16 13:50 | P.PNIM_ITS ---
Progress Note: A&P Assessment and Plan (1) Seizure: Code(s): R56.9 - Unspecified convulsions Status: Acute Assessment and Plan: 07/11 * New onset * CT of the head was negative * MRI showing acute infarct in the left frontoparietal lobe in deep white matter * EEG findings abnormal read, cannot rule out seizure activity * Continue atorvastatin, Plavix * Will hold baby aspirin considering patient is on Eliquis * Continue Keppra * Continue seizure precautions * Cardiac telemetry stable, we will go ahead and discontinue continuous telemetry * Move out of IMU to regular med surge floor 07/15 * continue neuro checks * continue seizure precautions * continue Keppra, atorvastatin, Plavix * neurology following 07/16 * no change (2) Post-ictal confusion: Code(s): F05 - Delirium due to known physiological condition Status: Resolved Assessment and Plan: 07/11/24 * Resolved * Currently alert oriented x3 (3) Acute DVT (deep venous thrombosis): Code(s): I82.409 - Acute embolism and thrombosis of unspecified deep veins of unspecified lower extremity Status: Acute Assessment and Plan: 07/11/24 * Venous Doppler showing extensive right lower extremity DVT * Patient was started on Lovenox and then switched to heparin infusion on 07/09/2024. She later developed dark tarry stools and a drop in her hemoglobin requiring blood transfusion. Heparin drip was placed on hold for 24 hours and then she was restarted on Eliquis 10 mg daily x7 days--standard protocol * General surgery was consulted for IVC filter however she is not a candidate at this time due to her other comorbidities * Continue Eliquis as stated above 07/15 * continue Eliquis 07/16 * No change (4) CVA (cerebral vascular accident): Code(s): I63.9 - Cerebral infarction, unspecified Status: Acute Assessment and Plan: 07/11/24: * MRA of brain showing acute infarct in the left frontoparietal lobe in the deep white matter * Left lower extremity weakness * PT and OT ordered * Continue atorvastatin, Plavix * Aspirin currently on hold as she is on Eliquis for DVT prophylaxis * A Neurology following 07/15 * continue Eliquis * neurology following 07/16 * No change (5) Occult blood in stools: Code(s): R19.5 - Other fecal abnormalities Status: Acute Assessment and Plan: 07/11/24 * Patient was occult blood positive on 07/09/2024 * She was given 1 unit of blood * H&H is stable * GI recommending outpatient colonoscopy considering her comorbidities * Recently diagnosed with diverticulitis and C diff colitis 07/15 * hemoglobin 7.5 * continue to trend 07/16 * No change (6) Diverticulitis of intestine with perforation without abscess: Qualifiers: Diverticulitis site: large intestine Diverticulitis bleeding: without bleeding Qualified Code(s): K57.20 - Diverticulitis of large intestine with perforation and abscess without bleeding Code(s): K57.80 - Diverticulitis of intestine, part unspecified, with perforation and abscess without bleeding Status: Acute Assessment and Plan: 07/11/24 * Failed Dificid * Continue oral vancomycin 07/15 * continue oral vancomycin 07/16 * No change (7) Urinary retention: Code(s): R33.9 - Retention of urine, unspecified Status: Acute Assessment and Plan: 07/11/24: * Patient had acute urinary retention requiring Leija on 07/03/24 * Urology was consulted * Patient failed voiding trial * Patient will keep catheter and repeat voiding trial in 1-2 weeks on an outpatient basis with Urology 07/15 * no change to current treatment plan (8) Hypokalemia: Code(s): E87.6 - Hypokalemia Status: Acute Assessment and Plan: 07/11/24: * Potassium 4.3 * No need for replacement * Resolved 07/15 * potassium 3.5 * no replacement needed 07/16 * potassium 3.7 * no replacement needed (9) C. difficile diarrhea: Code(s): A04.72 - Enterocolitis due to Clostridium difficile, not specified as recurrent Status: Acute Assessment and Plan: 07/11/24 * Continue vancomycin pulse dosing * Pulse taper vanc dose as follows: 125 mg orally 4 times daily for 10 to 14 days, then 125 mg orally twice daily for 7 days, then 125 mg orally once daily for 7 days, then 125 mg orally every 2 to 3 days for 2 to 8 weeks 07/15 * no change to current treatment plan (10) Hypothyroidism: Qualifiers: Hypothyroidism type: unspecified Qualified Code(s): E03.9 - Hypothyroidism, unspecified Code(s): E03.9 - Hypothyroidism, unspecified Status: Chronic Assessment and Plan: 07/11/24 * Continue Synthroid 07/15 * no change to current treatment plan (11) Hypertension: Qualifiers: Hypertension type: primary hypertension Qualified Code(s): I10 - Essential (primary) hypertension Code(s): I10 - Essential (primary) hypertension Status: Chronic Assessment and Plan: 07/11/25 * Blood pressure ranging 105/ 81 to 146/73 * Continue metoprolol, Benicar and monitor. 07/15 * no change to current treatment plan (12) Anemia: Qualifiers: Anemia type: due to chronic kidney disease Chronic kidney disease stage: unspecified stage Qualified Code(s): N18.9 - Chronic kidney disease, unspecified; D63.1 - Anemia in chronic kidney disease Code(s): D64.9 - Anemia, unspecified Status: Acute Assessment and Plan: 07/11/24 * Continue to transfuse for hemoglobin less than 7 * Patient receive 1 unit of blood this admission * Currently on Eliquis, Plavix * Will hold aspirin * Continue to trend 07/15 * hemoglobin 7.5 * no change to current treatment plan (13) Upper respiratory infection: Code(s): J06.9 - Acute upper respiratory infection, unspecified Status: Acute Assessment and Plan: 07/11/24 * Patient reported cold-like symptoms with a nonproductive cough and wheezing * Will check for influenza a and B, RSV, COVID * Start DuoNebs q.6 hour * Will obtain chest x-ray * Incentive spirometry while awake * Pep therapy with cornet flutter valve 07/15 * no change to current treatment plan (14) Delirium: Code(s): R41.0 - Disorientation, unspecified Status: Acute Assessment and Plan: 07/15 * more confused today * continue neuro checks * encourage good sleep hygiene 07/16 * continue neuro checks * currently alert and oriented x3 Time Spent With Patient Time with patient: Greater than 35 minutes Subjective Date/time seen: 07/16/24 13:50 Interval history: Interval history: This is a 73-year-old female who presented to the hospital on 07/02/[address] from [facility] for evaluation of altered mental status. While in the ED she had a witnessed seizure for which she was given Ativan 2 mg and a loading dose of Keppra. Workup in the hospital included chest x-ray which showed small pleural effusions, airspace opacities in the lung bases consistent with atelectasis versus pneumonia. Head CT showed a normal aging brain. Abdomen/pelvis CT showed persistent small collection of extraluminal gas in the left lower quadrant anterior abdominal wall immediately adjacent to a region of inflammatory stranding surrounding the descending colon consistent with diverticulitis, persistent moderate-sized bilateral posterior layering pleural effusions with dependent compressive atelectasis in the lower lobes. Brain MRI showed acute infarct in the left frontoparietal deep white matter, subcortical increased T2 weighted signal intensity in the parietal and occipital lobes, diffuse pachymeningeal enhancement. EEG showed abnormal record due to the absence of a normal background rhythm and presence of excessive amount theta activity. Venous Doppler showed extensive deep vein thrombosis in the right lower limb. Initial labs showed a white blood cell count of 15.5, hemoglobin 10.2, anion gap 17, creatinine 1.45, EGFR 35, lactic acid 2.7> 2.3. UA showed 1+ urine protein, 1+ urine ketone, positive nitrate, trace leukocyte, 6-10 urine RBC. Toxic collagen screening was positive for urine opiates otherwise negative. Respiratory panel was negative. Blood cultures were obtained and negative on final read. Urine culture was obtained and negative on final read. Echocardiogram shown normal LV systolic function with an estimated EF of 60-65%, grade 1 diastolic dysfunction. Patient was initially started on a heparin infusion for DVT however H&H dropped on 07/10/24-6.3/20.6 requiring blood transfusion and heparin was held. She was occult blood positive. GI was consulted however was deemed a poor candidate for endoscopic evaluation due to her multiple comorbidities and diverticulitis/recent C diff. and is recommending outpatient colonoscopy when more stable. General surgery was also consulted for IVC filter however they are holding off due to her multiple comorbidities as well, she was deemed not a candidate at this time. Patient was started on Eliquis on 07/10/2024. Patient also had urinary retention requiring Leija to be placed. She failed voiding trial and Urology was consulted. Urology will see patient in 2 weeks on an outpatient basis for another voiding trial. Subjective: Patient alert and oriented x3. she denies any new complaints. Labs reviewed. Review of Systems Review of Systems: All systems reviewed & are unremarkable except as noted in HPI and below Constitutional: Constitutional: Reports no additional constitutional complaints Eyes: Eyes: Reports no additional eye complaints ENT: Reports system reviewed and no additional complaints, except as docum ented Cardiovascular: Cardiovascular: Reports no additional cardiovascular complaints Respiratory: Respiratory: Reports no additional respiratory complaints Gastrointestinal: Gastrointestinal: Reports no additional gastrointestinal complaints and Reports diarrhea Genitourinary: Genitourinary: Reports no additional female genitourinary complaints Musculoskeletal: Musculoskeletal: Reports no additional musculoskeletal complaints Integumentary/Breasts: Skin/Breast: Reports system reviewed and no additional complaints, except as docu and Reports as per HPI Neurologic: Reports system reviewed and no additional complaints, except as documented Psychiatric: Psychiatric: Reports no additional psychiatric complaints and Reports as per HPI Endocrine: Endocrine: Reports no additional endocrine complaints and Reports as per HPI Hematologic/Lymphatic: Hematologic/Lymphatic: Reports no additional hematologic/lymphatic complaints and Reports as per HPI Allergic/Immunologic: Allergic/Immunologic: Reports no additional allergic/imm unologic complaints and Reports as per HPI Exam Narrative: General: In no acute distress, well nourished Cardiac: Normal S1 and S2. No murmur, gallops or friction rubs, peripheral pulses intact. Respiratory: Wheezing and Rhonchi noted bilaterally, no other adventitious lung sounds, nonproductive wet cough, currently on room air Gastrointestinal: soft, non-distended, non-tender, normoactive bowel sounds. : voiding without difficulty. Neuro: Alert and oriented x3, Appears delirious at times Objective Data Vital Signs Vital Signs: Vital Signs - 24 hr 07/15/24 13:55 07/15/24 13:55 07/15/24 14:00 Temperature 97.6 F Pulse Rate 84 91 Respiratory Rate 20 16 Blood Pressure 151/71 H Pulse Oximetry 99 100 Oxygen Delivery Room Air 07/15/24 14:03 07/15/24 20:10 07/15/24 20:13 Temperature Pulse Rate 83 104 H Respiratory Rate 20 20 Blood Pressure Pulse Oximetry 95 Oxygen Delivery Room Air 07/15/24 20:18 07/15/24 20:34 07/15/24 21:59 Temperature 98.4 F Pulse Rate 91 103 H 103 H Respiratory Rate 20 16 Blood Pressure 147/78 H Pulse Oximetry 100 Oxygen Delivery 07/16/24 00:00 07/16/24 06:44 07/16/24 07:23 Temperature 98.2 F 98.0 F Pulse Rate 93 82 80 Respiratory Rate 16 16 20 Blood Pressure 137/82 137/69 Pulse Oximetry 98 99 Oxygen Delivery 07/16/24 09:30 07/16/24 09:35 07/16/24 13:38 Temperature Pulse Rate 97 89 Respiratory Rate 20 Blood Pressure Pulse Oximetry Oxygen Delivery Room Air Intake/Output Intake/Output: Intake & Output 07/13/24 07/14/24 07/15/24 07/16/24 23:59 23:59 23:59 23:59 Intake Total 597 892 8696 336 Output Total 486 958 7782 100 Balance -360 50 -110 236 Meds/Results Medications: Active Medications Generic Name Dose Route Start Last Admin Trade Name Freq PRN Reason Stop Dose Admin Acetaminophen 1,000 mg 07/11/24 16:52 07/15/24 04:01 Acetaminophen 500 Mg Tablet PO 1,000 mg Q6H PRN Administration Mild Pain (1-3) or Fever Albuterol/Ipratropium 3 ml 07/11/24 20:00 07/16/24 13:37 Ipratropium 0.5 Mg/Albuterol Sulfate 2.5 Mg Ampul.Neb 3 Ml INHALATION 3 ml Q6HRT SOLITARIO Administration Alprazolam 1 mg 07/03/24 00:03 07/15/24 04:01 Alprazolam (*Crx) 0.5 Mg Tablet PO 1 mg QID PRN Administration anxiety Apixaban 5 mg 07/12/24 21:00 07/16/24 09:36 Apixaban 5 Mg Tablet PO 5 mg Q12HR SOLITARIO Administration Atorvastatin Calcium 80 mg 07/04/24 21:00 07/16/24 09:36 Atorvastatin 40 Mg Tablet PO 80 mg DAILY SOLITARIO Administration Calcium Carbonate 500 mg 07/14/24 08:00 07/16/24 09:35 Calcium Carbonate (Oscal) 500 Mg Tablet PO 500 mg BIDWM SOLITARIO Administration Cyanocobalamin 1,000 mcg 07/12/24 09:00 07/16/24 09:36 Cyanocobalamin 1,000 Mcg Tablet PO 1,000 mcg DAILY SOLITARIO Administration Ferrous Sulfate 325 mg 07/15/24 09:00 07/16/24 09:35 Ferrous Sulfate [address] PO 325 mg DAILY SOLITARIO Administration Folic Acid 1 mg 07/03/24 09:00 07/16/24 09:36 Folic Acid 1 Mg Tablet PO 1 mg DAILY SOLITARIO Administration Guaifenesin 1,200 mg 07/11/24 21:00 07/16/24 09:36 Guaifenesin 12 Hr 600 Mg Tabcr PO 1,200 mg Q12HR SOLITARIO Administration Levetiracetam 500 mg 07/03/24 12:30 07/16/24 09:36 Levetiracetam 500 Mg Tablet PO 500 mg Q12HR SOLITARIO Administration Levothyroxine Sodium 75 mcg 07/03/24 06:30 07/16/24 05:23 Levothyroxine Sodium 75 Mcg Tablet PO 75 mcg DAILY@0630 SOLITARIO Administration Lidocaine 1 patch 07/12/24 09:00 07/16/24 09:37 Lidocaine 5% Patch TRANSDERM Not Given DAILY SOLITARIO Lorazepam 1 mg 07/02/24 23:55 Lorazepam Inj (*Crx) 2 Mg/Ml Vial IV PUSH Q2H PRN Seizures Magnesium Oxide 400 mg 07/06/24 17:00 07/16/24 09:35 Magnesium Oxide 400 Mg Tablet PO 400 mg BID SOLITARIO Administration Metoprolol Tartrate 50 mg 07/03/24 09:00 07/16/24 09:35 Metoprolol Tartrate 50 Mg Tab PO 50 mg Q12HR SOLITARIO Administration Montelukast Sodium 10 mg 07/03/24 00:15 07/15/24 20:35 Montelukast Sodium 10 Mg Tablet PO 10 mg HS SOLITARIO Administration Olmesartan 40 mg 07/03/24 09:00 07/16/24 09:35 Olmesartan Medoxomil 20 Mg Tablet PO 40 mg DAILY SOLITARIO Administration Oseltamivir Phosphate 30 mg 07/11/24 21:00 07/16/24 09:36 Oseltamivir Phosphate 30 Mg Capsule PO 07/16/24 20:59 30 mg Q12HR SOLITARIO Administration Pantoprazole Sodium 40 mg 07/09/24 12:35 07/16/24 09:37 Pantoprazole Sodium Iv 40 Mg Vial IV PUSH 40 mg Q12HR SOLITARIO Administration Sodium Bicarbonate 650 mg 07/11/24 17:00 07/16/24 09:35 Sodium Bicarbonate Tab 650 Mg Tablet PO 650 mg BID SOLITARIO Administration Sodium Chloride 20 ml 07/04/24 16:15 Central Line Flush IV PUSH PRN PRN after blood draws Sodium Chloride 10 ml 07/04/24 16:15 Central Line Flush IV PUSH PRN PRN with TPN bag changes Sodium Chloride 10 ml 07/04/24 22:00 07/16/24 12:55 Central Line Flush IV PUSH 10 ml Q8HR SOLITARIO Administration Tramadol HCl 100 mg 07/11/24 16:49 07/15/24 20:33 Tramadol Hcl (*Crx) 50 Mg Tablet PO 100 mg HS PRN Administration Pain Rated 4-6 (night) Tramadol HCl 50 mg 07/11/24 16:49 07/15/24 16:35 Tramadol Hcl (*Crx) 50 Mg Tablet PO 50 mg DAILY PRN Administration Pain Rated 4-6 (day) Trazodone HCl 100 mg 07/11/24 21:00 07/15/24 20:34 Trazodone Hcl 50 Mg Tablet PO 100 mg HS SOLITARIO Administration Vancomycin HCl 125 mg 07/09/24 17:00 07/16/24 12:55 Vancomycin Hcl 125 Mg Oral Capsule PO 125 mg QID SOLITARIO Administration Radiology Results: ITS Impressions Head CT 07/02/24 14:34 IMPRESSION: 1. Normal aging brain. Abdomen/Pelvis CT 07/02/24 14:36 IMPRESSION: 1. Persistent small collection of extra luminal gas in the left lower quadrant anterior abdominal wall immediately adjacent to a region of inflammatory stranding surrounding the descending colon consistent with diverticulitis. No abscess or more remote free intraperineal gas or fluid. 2. Persistent moderate-sized bilateral posterior layering pleural effusions with dependent compressive atelectasis in the visualized lower lobes. Brain MRI 07/04/24 11:30 IMPRESSION: 1. 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 2. 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 3. Diffuse pachymeningeal enhancement. This finding is most commonly secondary to prior lumbar puncture or spine procedure. ADDENDUM: 07/04/24 1216 The contrast volume was 20 mL MultiHance. Venous Doppler Study 07/05/24 14:17 IMPRESSION: 1. Extensive deep vein thrombosis in right lower limb. I called this result to Elsy Tao. Chest X-Ray 07/11/24 15:04 IMPRESSION: 1. Improved airspace opacities at left lung base, consistent with atelectasis versus pneumonia. 2. Improved small left pleural effusion. Labs Labs: Laboratory Results - last 24 hr 07/16/24 05:19 WBC 9.0 RBC 2.31 L Hgb 7.3 L Hct 23.3 L MCV 100.9 H MCH 31.6 MCHC 31.3 L RDW 21.1 H Plt Count 236 MPV 10.8 H Immature Gran % (Auto) 0.6 H Neut % (Auto) 80.7 H Lymph % (Auto) 12.8 L [place] % (Auto) 5.8 Eos % (Auto) 0.0 Baso % (Auto) 0.1 L Lymph # (Auto) 1.15 [place] # (Auto) 0.5 Eos # (Auto) 0.0 Baso # (Auto) 0.0 Abs Immat Gran (auto) 0.05 H Absolute Neuts (auto) 7.2 H Absolute Nucleated RBC 0.000 Nucleated RBC % 0.0 Sodium 140 Potassium 3.7 Chloride 111 H Carbon Dioxide 17 L Anion Gap 12 BUN 16 Creatinine 1.16 H Estim Creat Clear Calc 43 Estimated GFR 46 L Glucose 85 Calcium 7.8 L Total Bilirubin 0.9 AST 39 H ALT 15 Alkaline Phosphatase 124 Total Protein 5.0 L Albumin 2.4 L Quality VTE Prophylaxis VTE prophylaxis: pharmacologic ordered
[2024-07-16] MEDS: traZODone HCL 50 MG TABLET 100 MG PO (21:24)
[2024-07-16] MEDS: MONTELUKAST SODIUM 10 MG TABLET PO (21:24)
[2024-07-17] VITALS (20 sets, daily range): BP systolic 127–149; BP diastolic 60–97; PULSE 69–108; RESP 16–18; TEMP 36.2–36.8; O2SAT 93–100
[2024-07-17] MEDS: IPRATROPIUM 0.5 MG/ALBUTEROL SULFATE 2.5 MG AMPUL.NEB 3 ML INHALATION ×4 (03:05→21:39)
[2024-07-17] MEDS: CENTRAL LINE FLUSH 10 ML IV PUSH ×3 (06:20→20:53)
[2024-07-17] MEDS: LEVOTHYROXINE SODIUM 75 MCG TABLET PO (06:20)
[2024-07-17 06:39] LABS: Basophils Percent Auto 0.2 % (0.2-1.2); Eosinophils Percent Auto 0.2 % (0-4.4); Hematocrit 22.1 % (37.0-47.0); Immature Granulocyte Absolute 0.07 K/mm3 (0.00-0.031); Immature Granulocyte Percent A 0.8 % (0-0.5); Lymphocytes Absolute Auto 1.12 K/mm3 (0.9-3.2); Lymphocytes Percent Auto 12.3 % (18.3-44.2); Mean Corpuscular HGB Conc 30.3 g/dl (32-36); Mean Corpuscular Hemoglobin 31.2 pg (26-34); Mean Corpuscular Volume 102.8 fl (80-100); Mean Platelet Volume 10.9 fl (7.4-10.4); Monocytes Absolute Auto 0.7 K/mm3 (0.1-0.6); Monocytes Percent Auto 7.6 % (2.6-8.5); Neutrophils Absolute Auto 7.2 K/mm3 (1.3-6.7); Neutrophils Percent Auto 78.9 % (45.5-73.1); Platelet Count Result 226 k/mm3 (150-375); Red Blood Count 2.15 M/mm3 (4.2-5.4); Red Cell Distribution Width 21.5 % (11.5-14.5); White Blood Count 9.1 K/mm3 (4.5-10.0)
[2024-07-17 06:44] LABS: Hemoglobin 6.7 g/dL (12.0-15.0)
[2024-07-17 06:50] LABS: Alanine Aminotransferase 13 U/L (6-35); Albumin Level 2.4 g/dL (3.5-5.1); Alkaline Phosphatase 120 U/L (38-126); Anion Gap 10 mmol/L (4-12); Aspartate Amino Transferase 29 U/L (14-36); Bilirubin,Total 0.9 mg/dL (0.2-1.3); Blood Urea Nitrogen 18 mg/dL (7-17); Calcium 7.9 mg/dL (8.4-10.2); Carbon Dioxide 20 mmol/L (22-30); Chloride 112 mmol/L (98-107); Estimated CRCL calculation 41 ml/min; Estimated Glomerular Filt Rate 43; Glucose 86 mg/dL (65-110); Potassium 3.7 mmol/L (3.4-5.0); Sodium 142 mmol/L (137-145)
--- NOTE | 2024-07-17 07:12 | P.PNIM_ITS ---
Progress Note: A&P Assessment and Plan (1) Seizure: Code(s): R56.9 - Unspecified convulsions Status: Acute Assessment and Plan: 07/11 * New onset * CT of the head was negative * MRI showing acute infarct in the left frontoparietal lobe in deep white matter * EEG findings abnormal read, cannot rule out seizure activity * Continue atorvastatin, Plavix * Will hold baby aspirin considering patient is on Eliquis * Continue Keppra * Continue seizure precautions * Cardiac telemetry stable, we will go ahead and discontinue continuous telemetry * Move out of IMU to regular med surge floor 07/15 * continue neuro checks * continue seizure precautions * continue Keppra, atorvastatin, Plavix * neurology following 07/16 * no change (2) Post-ictal confusion: Code(s): F05 - Delirium due to known physiological condition Status: Resolved Assessment and Plan: 07/11/24 * Resolved * Currently alert oriented x3 (3) Acute DVT (deep venous thrombosis): Code(s): I82.409 - Acute embolism and thrombosis of unspecified deep veins of unspecified lower extremity Status: Acute Assessment and Plan: 07/11/24 * Venous Doppler showing extensive right lower extremity DVT * Patient was started on Lovenox and then switched to heparin infusion on 07/09/2024. She later developed dark tarry stools and a drop in her hemoglobin requiring blood transfusion. Heparin drip was placed on hold for 24 hours and then she was restarted on Eliquis 10 mg daily x7 days--standard protocol * General surgery was consulted for IVC filter however she is not a candidate at this time due to her other comorbidities * Continue Eliquis as stated above 07/15 * continue Eliquis 07/16 * No change (4) CVA (cerebral vascular accident): Code(s): I63.9 - Cerebral infarction, unspecified Status: Acute Assessment and Plan: 07/11/24: * MRA of brain showing acute infarct in the left frontoparietal lobe in the deep white matter * Left lower extremity weakness * PT and OT ordered * Continue atorvastatin, Plavix * Aspirin currently on hold as she is on Eliquis for DVT prophylaxis * A Neurology following 07/15 * continue Eliquis * neurology following 07/16 * No change (5) Occult blood in stools: Code(s): R19.5 - Other fecal abnormalities Status: Acute Assessment and Plan: 07/11/24 * Patient was occult blood positive on 07/09/2024 * She was given 1 unit of blood * H&H is stable * GI recommending outpatient colonoscopy considering her comorbidities * Recently diagnosed with diverticulitis and C diff colitis 07/15 * hemoglobin 7.5 * continue to trend 07/16 * No change (6) Diverticulitis of intestine with perforation without abscess: Qualifiers: Diverticulitis bleeding: without bleeding Diverticulitis site: large intestine Qualified Code(s): K57.20 - Diverticulitis of large intestine with perforation and abscess without bleeding Code(s): K57.80 - Diverticulitis of intestine, part unspecified, with perforation and abscess without bleeding Status: Acute Assessment and Plan: 07/11/24 * Failed Dificid * Continue oral vancomycin 07/15 * continue oral vancomycin 07/16 * No change (7) Urinary retention: Code(s): R33.9 - Retention of urine, unspecified Status: Acute Assessment and Plan: 07/11/24: * Patient had acute urinary retention requiring Leija on 07/03/24 * Urology was consulted * Patient failed voiding trial * Patient will keep catheter and repeat voiding trial in 1-2 weeks on an outpatient basis with Urology 07/15 * no change to current treatment plan (8) Hypokalemia: Code(s): E87.6 - Hypokalemia Status: Acute Assessment and Plan: 07/11/24: * Potassium 4.3 * No need for replacement * Resolved 07/15 * potassium 3.5 * no replacement needed 07/16 * potassium 3.7 * no replacement needed (9) C. difficile diarrhea: Code(s): A04.72 - Enterocolitis due to Clostridium difficile, not specified as recurrent Status: Acute Assessment and Plan: 07/11/24 * Continue vancomycin pulse dosing * Pulse taper vanc dose as follows: 125 mg orally 4 times daily for 10 to 14 days, then 125 mg orally twice daily for 7 days, then 125 mg orally once daily for 7 days, then 125 mg orally every 2 to 3 days for 2 to 8 weeks 07/15 * no change to current treatment plan (10) Hypothyroidism: Qualifiers: Hypothyroidism type: unspecified Qualified Code(s): E03.9 - Hypothyroidism, unspecified Code(s): E03.9 - Hypothyroidism, unspecified Status: Chronic Assessment and Plan: 07/11/24 * Continue Synthroid 07/15 * no change to current treatment plan (11) Hypertension: Qualifiers: Hypertension type: primary hypertension Qualified Code(s): I10 - Essential (primary) hypertension Code(s): I10 - Essential (primary) hypertension Status: Chronic Assessment and Plan: 07/11/25 * Blood pressure ranging 105/ 81 to 146/73 * Continue metoprolol, Benicar and monitor. 07/15 * no change to current treatment plan (12) Anemia: Qualifiers: Anemia type: due to chronic kidney disease Chronic kidney disease stage: unspecified stage Qualified Code(s): N18.9 - Chronic kidney disease, unspecified; D63.1 - Anemia in chronic kidney disease Code(s): D64.9 - Anemia, unspecified Status: Acute Assessment and Plan: 07/11/24 * Continue to transfuse for hemoglobin less than 7 * Patient receive 1 unit of blood this admission * Currently on Eliquis, Plavix * Will hold aspirin * Continue to trend 07/15 * hemoglobin 7.5 * no change to current treatment plan (13) Upper respiratory infection: Code(s): J06.9 - Acute upper respiratory infection, unspecified Status: Acute Assessment and Plan: 07/11/24 * Patient reported cold-like symptoms with a nonproductive cough and wheezing * Will check for influenza a and B, RSV, COVID * Start DuoNebs q.6 hour * Will obtain chest x-ray * Incentive spirometry while awake * Pep therapy with cornet flutter valve 07/15 * no change to current treatment plan 07/17 * Chest x-ray ordered * Still coarse rhonchi * Patient finished course Tamiflu for influenza a * Continue incentive spirometry and pep therapy (14) Delirium: Code(s): R41.0 - Disorientation, unspecified Status: Acute Assessment and Plan: 07/15 * more confused today * continue neuro checks * encourage good sleep hygiene 07/16 * continue neuro checks * currently alert and oriented x3 (15) Influenza A: Code(s): J10.1 - Influenza due to other identified influenza virus with other respiratory manifestations Status: Acute Assessment and Plan: * Respiratory panel on 07/11/2024 shown influenza a * Patient finished full course of Tamiflu Time Spent With Patient Time with patient: 25 - 35 minutes Subjective Date/time seen: 07/17/24 07:12 Interval history: Interval history: This is a 73-year-old female who presented to the hospital on 07/02/2024 via EMS from [facility] for evaluation of altered mental status. While in the ED she had a witnessed seizure for which she was given Ativan 2 mg and a loading dose of Keppra. Workup in the hospital included chest x-ray which showed small pleural effusions, airspace opacities in the lung bases consistent with atelectasis versus pneumonia. Head CT showed a normal aging brain. Abdomen/pelvis CT showed persistent small collection of extraluminal gas in the left lower quadrant anterior abdominal wall immediately adjacent to a region of inflammatory stranding surrounding the descending colon consistent with diverticulitis, persistent moderate-sized bilateral posterior layering pleural effusions with dependent compressive atelectasis in the lower lobes. Brain MRI showed acute infarct in the left frontoparietal deep white matter, subcortical increased T2 weighted signal intensity in the parietal and occipital lobes, diffuse pachymeningeal enhancement. EEG showed abnormal record due to the absence of a normal background rhythm and presence of excessive amount theta activity. Venous Doppler showed extensive deep vein thrombosis in the right lower limb. Initial labs showed a white blood cell count of 15.5, hemoglobin 10.2, anion gap 17, creatinine 1.45, EGFR 35, lactic acid 2.7> 2.3. UA showed 1+ urine protein, 1+ urine ketone, positive nitrate, trace leukocyte, 6-10 urine RBC. Toxic collagen screening was positive for urine opiates otherwise negative. Respiratory panel was negative. Blood cultures were obtained and negative on final read. Urine culture was obtained and negative on final read. Echocardiogram shown normal LV systolic function with an estimated EF of 60-65%, grade 1 diastolic dysfunction. Patient was initially started on a heparin infusion for DVT however H&H dropped on 07/10/24-6.3/20.6 requiring blood transfusion and heparin was held. She was occult blood positive. GI was consulted however was deemed a poor candidate for endoscopic evaluation due to her multiple comorbidities and diverticulitis/recent C diff. and is recommending outpatient colonoscopy when more stable. General surgery was also consulted for IVC filter however they are holding off due to her multiple comorbidities as well, she was deemed not a candidate at this time. Patient was started on Eliquis on 07/10/2024. Patient also had urinary retention requiring Leija to be placed. She failed voiding trial and Urology was consulted. Urology will see patient in 2 weeks on an outpatient basis for another voiding trial. Subjective: Patient alert and oriented x3. she denies any new complaints. Labs reviewed. Review of Systems Review of Systems: All systems reviewed & are unremarkable except as noted in HPI and below Exam Narrative: General: In no acute distress, well nourished Cardiac: Normal S1 and S2. No murmur, gallops or friction rubs, peripheral pulses intact. Respiratory: Wheezing and Rhonchi noted bilaterally, no other adventitious lung sounds, nonproductive wet cough, currently on room air Gastrointestinal: soft, non-distended, non-tender, normoactive bowel sounds. : voiding without difficulty. Neuro: Alert and oriented x3 Objective Data Vital Signs Vital Signs: Vital Signs - 24 hr 07/16/24 07:23 07/16/24 09:30 07/16/24 09:35 Temperature Pulse Rate 80 97 Respiratory Rate 20 Blood Pressure Pulse Oximetry Oxygen Delivery Room Air 07/16/24 13:38 07/16/24 14:00 07/16/24 20:02 Temperature 97.6 F Pulse Rate 89 92 92 Respiratory Rate 20 16 20 Blood Pressure 124/63 Pulse Oximetry 95 Oxygen Delivery 07/16/24 20:10 07/16/24 21:24 07/16/24 21:58 Temperature 97.8 F Pulse Rate 92 78 99 Respiratory Rate 20 20 Blood Pressure 133/69 Pulse Oximetry 96 Oxygen Delivery 07/17/24 03:05 07/17/24 03:12 07/17/24 05:28 Temperature 97.1 F L Pulse Rate 69 74 100 Respiratory Rate 18 18 18 Blood Pressure 136/72 Pulse Oximetry 93 Oxygen Delivery Intake/Output Intake/Output: Intake & Output 07/14/24 07/15/24 07/16/24 07/17/24 23:59 23:59 23:59 23:59 Intake Total 200 1140 836 100 Output Total 150 1250 900 450 Balance 50 -110 -64 -350 Meds/Results Medications: Active Medications Generic Name Dose Route Start Last Admin Trade Name Freq PRN Reason Stop Dose Admin Acetaminophen 1,000 mg 07/11/24 16:52 07/15/24 04:01 Acetaminophen 500 Mg Tablet PO 1,000 mg Q6H PRN Administration Mild Pain (1-3) or Fever Albuterol/Ipratropium 3 ml 07/11/24 20:00 07/17/24 03:05 Ipratropium 0.5 Mg/Albuterol Sulfate 2.5 Mg Ampul.Neb 3 Ml INHALATION 3 ml Q6HRT SOLITARIO Administration Alprazolam 1 mg 07/03/24 00:03 07/15/24 04:01 Alprazolam (*Crx) 0.5 Mg Tablet PO 1 mg QID PRN Administration anxiety Apixaban 5 mg 07/12/24 21:00 07/16/24 21:24 Apixaban 5 Mg Tablet PO 5 mg Q12HR SOLITARIO Administration Atorvastatin Calcium 80 mg 07/04/24 21:00 07/16/24 09:36 Atorvastatin 40 Mg Tablet PO 80 mg DAILY SOLITARIO Administration Calcium Carbonate 500 mg 07/14/24 08:00 07/16/24 16:40 Calcium Carbonate (Oscal) 500 Mg Tablet PO 500 mg BIDWM SOLITARIO Administration Cyanocobalamin 1,000 mcg 07/12/24 09:00 07/16/24 09:36 Cyanocobalamin 1,000 Mcg Tablet PO 1,000 mcg DAILY SOLITARIO Administration Ferrous Sulfate 325 mg 07/15/24 09:00 07/16/24 09:35 Ferrous Sulfate [address] PO 325 mg DAILY SOLITARIO Administration Folic Acid 1 mg 07/03/24 09:00 07/16/24 09:36 Folic Acid 1 Mg Tablet PO 1 mg DAILY SOLITARIO Administration Guaifenesin 1,200 mg 07/11/24 21:00 07/16/24 21:24 Guaifenesin 12 Hr 600 Mg Tabcr PO 1,200 mg Q12HR SOLITARIO Administration Sodium Chloride 250 mls @ 30 mls/hr 07/17/24 07:11 Normal Saline Iv IV CONT 07/17/24 15:30 .Q8H20M STA Levetiracetam 500 mg 07/03/24 12:30 07/16/24 21:24 Levetiracetam 500 Mg Tablet PO 500 mg Q12HR SOLITARIO Administration Levothyroxine Sodium 75 mcg 07/03/24 06:30 07/17/24 06:20 Levothyroxine Sodium 75 Mcg Tablet PO 75 mcg DAILY@0630 SOLITARIO Administration Lidocaine 1 patch 07/12/24 09:00 07/16/24 09:37 Lidocaine 5% Patch TRANSDERM Not Given DAILY SOLITARIO Lorazepam 1 mg 07/02/24 23:55 Lorazepam Inj (*Crx) 2 Mg/Ml Vial IV PUSH Q2H PRN Seizures Magnesium Oxide 400 mg 07/06/24 17:00 07/16/24 16:41 Magnesium Oxide 400 Mg Tablet PO 400 mg BID SOLITARIO Administration Metoprolol Tartrate 50 mg 07/03/24 09:00 07/16/24 21:24 Metoprolol Tartrate 50 Mg Tab PO 50 mg Q12HR SOLITARIO Administration Montelukast Sodium 10 mg 07/03/24 00:15 07/16/24 21:24 Montelukast Sodium 10 Mg Tablet PO 10 mg HS SOLITARIO Administration Olmesartan 40 mg 07/03/24 09:00 07/16/24 09:35 Olmesartan Medoxomil 20 Mg Tablet PO 40 mg DAILY SOLITARIO Administration Pantoprazole Sodium 40 mg 07/09/24 12:35 07/16/24 21:23 Pantoprazole Sodium Iv 40 Mg Vial IV PUSH 40 mg Q12HR SOLITARIO Administration Sodium Bicarbonate 650 mg 07/16/24 17:00 07/16/24 16:41 Sodium Bicarbonate Tab 650 Mg Tablet PO 650 mg TID SOLITARIO Administration Sodium Chloride 20 ml 07/04/24 16:15 Central Line Flush IV PUSH PRN PRN after blood draws Sodium Chloride 10 ml 07/04/24 16:15 Central Line Flush IV PUSH PRN PRN with TPN bag changes Sodium Chloride 10 ml 07/04/24 22:00 07/17/24 06:20 Central Line Flush IV PUSH 10 ml Q8HR SOLITARIO Administration Tramadol HCl 100 mg 07/11/24 16:49 07/15/24 20:33 Tramadol Hcl (*Crx) 50 Mg Tablet PO 100 mg HS PRN Administration Pain Rated 4-6 (night) Tramadol HCl 50 mg 07/11/24 16:49 07/15/24 16:35 Tramadol Hcl (*Crx) 50 Mg Tablet PO 50 mg DAILY PRN Administration Pain Rated 4-6 (day) Trazodone HCl 100 mg 07/11/24 21:00 07/16/24 21:24 Trazodone Hcl 50 Mg Tablet PO 100 mg HS SOLITARIO Administration Vancomycin HCl 125 mg 07/09/24 17:00 07/16/24 21:24 Vancomycin Hcl 125 Mg Oral Capsule PO 125 mg QID SOLITARIO Administration Radiology Results: ITS Impressions Head CT 07/02/24 14:34 IMPRESSION: 1. Normal aging brain. Abdomen/Pelvis CT 07/02/24 14:36 IMPRESSION: 1. Persistent small collection of extra luminal gas in the left lower quadrant anterior abdominal wall immediately adjacent to a region of inflammatory stranding surrounding the descending colon consistent with diverticulitis. No abscess or more remote free intraperineal gas or fluid. 2. Persistent moderate-sized bilateral posterior layering pleural effusions with dependent compressive atelectasis in the visualized lower lobes. Brain MRI 07/04/24 11:30 IMPRESSION: 1. 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 2. 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 3. Diffuse pachymeningeal enhancement. This finding is most commonly secondary to prior lumbar puncture or spine procedure. ADDENDUM: 07/04/24 1216 The contrast volume was 20 mL MultiHance. Venous Doppler Study 07/05/24 14:17 IMPRESSION: 1. Extensive deep vein thrombosis in right lower limb. I called this result to Elsy Tao. Chest X-Ray 07/11/24 15:04 IMPRESSION: 1. Improved airspace opacities at left lung base, consistent with atelectasis versus pneumonia. 2. Improved small left pleural effusion. Labs Labs: Laboratory Results - last 24 hr 07/17/24 06:24 WBC 9.1 RBC 2.15 L Hgb 6.7 L* Hct 22.1 L MCV 102.8 H MCH 31.2 MCHC 30.3 L RDW 21.5 H Plt Count 226 MPV 10.9 H Immature Gran % (Auto) 0.8 H Neut % (Auto) 78.9 H Lymph % (Auto) 12.3 L [place] % (Auto) 7.6 Eos % (Auto) 0.2 Baso % (Auto) 0.2 Lymph # (Auto) 1.12 [place] # (Auto) 0.7 H Eos # (Auto) 0.0 Baso # (Auto) 0.0 Abs Immat Gran (auto) 0.07 H Absolute Neuts (auto) 7.2 H Absolute Nucleated RBC 0.000 Nucleated RBC % 0.0 Sodium 142 Potassium 3.7 Chloride 112 H Carbon Dioxide 20 L Anion Gap 10 BUN 18 H Creatinine 1.23 H Estim Creat Clear Calc 41 Estimated GFR 43 L Glucose 86 Calcium 7.9 L Magnesium 2.0 Total Bilirubin 0.9 AST 29 ALT 13 Alkaline Phosphatase 120 Total Protein 5.0 L Albumin 2.4 L Quality VTE Prophylaxis VTE prophylaxis: pharmacologic ordered
--- NOTE | 2024-07-17 09:25 | PCNFU ---
Nutrition Follow-Up Complete: Altered GI function related to C.diff as evidenced by liquid stool PO intake greater than 50%- Slowly progressing. Intakes 0-50%. Refused dinner. Formed stool - Stool is semi-liquid Goal: Pt current nutrition is Heart healthy diet. Enlive BID (350 kcal, 20 g protein). Banatrol TID for stool bulk. Nutrition recommendation: No new recommendations. Continue current nutrition care plan and orders. Encourage PO intake Last recorded weight is 94.2 kg. Bowel Motility: +1 BM 07/16/24. Semi liquid stool per FMS Labs Reviewed: Hgb 6.7, Hct 22.1, Alb 2.4, BUN 18, Cre 1.23 Meds Noted: Folic acid, protonix, mag-ox Skin: No pressure injuries noted Additional Notes: Intakes are still poor. Stool is less frequent. Continue current orders. Agree with orders Monitor intake, wt, labs, stool output. Follow up in 5 days.
[2024-07-17] MEDS: FOLIC ACID 1 MG TABLET PO (09:45)
[2024-07-17] MEDS: CALCIUM CARBONATE (OSCAL) 500 MG TABLET PO ×2 (09:45→18:02)
[2024-07-17] MEDS: levETIRAcetam 500 MG TABLET PO ×2 (09:45→20:52)
[2024-07-17] MEDS: OLMESARTAN MEDOXOMIL 20 MG TABLET 40 MG PO (09:45)
[2024-07-17] MEDS: CYANOCOBALAMIN 1,000 MCG TABLET 1000 MCG PO (09:45)
[2024-07-17] MEDS: FERROUS SULFATE 325 MG TABLET DR PO (09:45)
[2024-07-17] MEDS: LIDOCAINE 5% PATCH 1 PATCH TRANSDERM (09:45)
[2024-07-17] MEDS: MAGNESIUM OXIDE 400 MG TABLET PO ×2 (09:45→18:02)
[2024-07-17] MEDS: guaiFENesin 12 HR 600 MG TABCR 1200 MG PO ×2 (09:45→20:53)
[2024-07-17] MEDS: METOPROLOL TARTRATE 50 MG TAB PO ×2 (09:45→20:53)
[2024-07-17] MEDS: SODIUM BICARBONATE TAB 650 MG TABLET PO ×3 (09:45→18:02)
[2024-07-17] MEDS: ATORVASTATIN 40 MG TABLET 80 MG PO (09:46)
[2024-07-17] MEDS: PANTOPRAZOLE SODIUM IV 40 MG VIAL IV PUSH ×2 (09:46→20:53)
[2024-07-17] MEDS: VANCOMYCIN HCL 125 MG ORAL CAPSULE PO ×4 (09:48→20:52)
--- NOTE | 2024-07-17 14:30 | PCPTNOTE ---
On 07/17/24, the student, COURTNEY Vigil, provided care and completed [facility] documentation on this patient. I have reviewed the student's documentation and agree with the findings.
[2024-07-17] MEDS: traZODone HCL 50 MG TABLET 100 MG PO (20:50)
[2024-07-17] MEDS: MONTELUKAST SODIUM 10 MG TABLET PO (20:53)
[2024-07-17 20:55] LABS: Basophils Percent Auto 0.1 % (0.2-1.2); Eosinophils Percent Auto 0.1 % (0-4.4); Hematocrit 32.7 % (37.0-47.0); Hemoglobin 10.7 g/dL (12.0-15.0); Immature Granulocyte Absolute 0.16 K/mm3 (0.00-0.031); Immature Granulocyte Percent A 1.9 % (0-0.5); Lymphocytes Absolute Auto 1.18 K/mm3 (0.9-3.2); Lymphocytes Percent Auto 14.4 % (18.3-44.2); Mean Corpuscular HGB Conc 32.7 g/dl (32-36); Mean Corpuscular Volume 91.6 fl (80-100); Mean Platelet Volume 10.7 fl (7.4-10.4); Monocytes Absolute Auto 0.7 K/mm3 (0.1-0.6); Monocytes Percent Auto 8.9 % (2.6-8.5); Neutrophils Absolute Auto 6.1 K/mm3 (1.3-6.7); Neutrophils Percent Auto 74.6 % (45.5-73.1); Platelet Count Result 204 k/mm3 (150-375); Red Blood Count 3.57 M/mm3 (4.2-5.4); Red Cell Distribution Width 20.9 % (11.5-14.5); White Blood Count 8.2 K/mm3 (4.5-10.0)
[2024-07-18] VITALS (11 sets, daily range): BP systolic 131–167; BP diastolic 73–82; PULSE 90–109; RESP 16–20; TEMP 36.6–37.5; O2SAT 93–100
[2024-07-18] MEDS: LEVOTHYROXINE SODIUM 75 MCG TABLET PO (05:45)
[2024-07-18] MEDS: CENTRAL LINE FLUSH 10 ML IV PUSH ×3 (06:13→21:35)
--- NOTE | 2024-07-18 07:19 | P.PNIM_ITS ---
Progress Note: A&P Assessment and Plan (1) CVA (cerebral vascular accident): Code(s): I63.9 - Cerebral infarction, unspecified Status: Acute Assessment and Plan: 07/11/24: * MRA of brain showing acute infarct in the left frontoparietal lobe in the deep white matter * Left lower extremity weakness * PT and OT ordered * Continue atorvastatin, Plavix * Aspirin currently on hold as she is on Eliquis for DVT prophylaxis * A Neurology following 07/15 * continue Eliquis * neurology following 07/16 * No change 07/18 - Stable. On atorvastatin. Asa/plavix previously held. Apixaban resumed. (2) Seizure: Code(s): R56.9 - Unspecified convulsions Status: Acute Assessment and Plan: 07/11 * New onset * CT of the head was negative * MRI showing acute infarct in the left frontoparietal lobe in deep white matter * EEG findings abnormal read, cannot rule out seizure activity * Continue atorvastatin, Plavix * Will hold baby aspirin considering patient is on Eliquis * Continue Keppra * Continue seizure precautions * Cardiac telemetry stable, we will go ahead and discontinue continuous telemetry * Move out of IMU to regular med surge floor 07/15 * continue neuro checks * continue seizure precautions * continue Keppra, atorvastatin, Plavix * neurology following 07/16 * no change 07/18 - No new seizure activity. - Cont. keppra at 500mg bid. (3) C. difficile diarrhea: Code(s): A04.72 - Enterocolitis due to Clostridium difficile, not specified as recurrent Status: Acute Assessment and Plan: 07/11/24 * Continue vancomycin pulse dosing * Pulse taper vanc dose as follows: 125 mg orally 4 times daily for 10 to 14 days, then 125 mg orally twice daily for 7 days, then 125 mg orally once daily for 7 days, then 125 mg orally every 2 to 3 days for 2 to 8 weeks 07/15 * no change to current treatment plan 07/18 - Cont. current pulse/taper. Orders are in. (4) Diverticulitis of intestine with perforation without abscess: Qualifiers: Diverticulitis bleeding: without bleeding Diverticulitis site: large intestine Qualified Code(s): K57.20 - Diverticulitis of large intestine with perforation and abscess without bleeding Code(s): K57.80 - Diverticulitis of intestine, part unspecified, with perforation and abscess without bleeding Status: Acute Assessment and Plan: 07/11/24 * Failed Dificid * Continue oral vancomycin 07/15 * continue oral vancomycin 07/16 * No change 07/18 - Stable, completing oral vancomycin pulse/taper. (5) Anemia: Qualifiers: Anemia type: due to chronic kidney disease Chronic kidney disease stage: unspecified stage Qualified Code(s): N18.9 - Chronic kidney disease, unspecified; D63.1 - Anemia in chronic kidney disease Code(s): D64.9 - Anemia, unspecified Status: Acute Assessment and Plan: 07/11/24 * Continue to transfuse for hemoglobin less than 7 * Patient receive 1 unit of blood this admission * Currently on Eliquis, Plavix * Will hold aspirin * Continue to trend 07/15 * hemoglobin 7.5 * no change to current treatment plan 07/18 - S/P 2 units prbc overnight with improvement noted on overnight labs. - Resume anticoag. - GI had been consulted, not able to perform colonoscopy currently with diverticulitis, patient had previously refused as well. (6) Acute DVT (deep venous thrombosis): Code(s): I82.409 - Acute embolism and thrombosis of unspecified deep veins of unspecified lower extremity Status: Acute Assessment and Plan: 07/11/24 * Venous Doppler showing extensive right lower extremity DVT * Patient was started on Lovenox and then switched to heparin infusion on 07/09/2024. She later developed dark tarry stools and a drop in her hemoglobin requiring blood transfusion. Heparin drip was placed on hold for 24 hours and then she was restarted on Eliquis 10 mg daily x7 days--standard protocol * General surgery was consulted for IVC filter however she is not a candidate at this time due to her other comorbidities * Continue Eliquis as stated above 07/15 * continue Eliquis 07/16 * No change 07/18 - Eliquis held overnight d/t needing two units prbc. - Stable hgb resuming eliquis. (7) Occult blood in stools: Code(s): R19.5 - Other fecal abnormalities Status: Acute Assessment and Plan: 07/11/24 * Patient was occult blood positive on 07/09/2024 * She was given 1 unit of blood * H&H is stable * GI recommending outpatient colonoscopy considering her comorbidities * Recently diagnosed with diverticulitis and C diff colitis 07/15 * hemoglobin 7.5 * continue to trend 07/16 * No change 07/18 - Transfused two units prbc overnight with appropriate rise in hgb on repeat labs overnight. - Apixaban will resume. (8) Delirium: Code(s): R41.0 - Disorientation, unspecified Status: Acute Assessment and Plan: 07/15 * more confused today * continue neuro checks * encourage good sleep hygiene 07/16 * continue neuro checks * currently alert and oriented x3 07/18 - Drowsy this am but rousable and and answers questions. Improved later in the am. No focal deficits. - Cont. to monitor closely for developing infection - post influenza pna, UTI, etc. Check urine this am, pending. - Treating for pna. (9) Pneumonia: Code(s): J18.9 - Pneumonia, unspecified organism Status: Acute Assessment and Plan: 07/18 - Slightly less oriented than reported from day prior this morning, improving in the late morning, cxr shows infiltrate. Plan to start ceftriaxone/zithromycin today day 1. (10) Upper respiratory infection: Code(s): J06.9 - Acute upper respiratory infection, unspecified Status: Acute Assessment and Plan: 07/11/24 * Patient reported cold-like symptoms with a nonproductive cough and wheezing * Will check for influenza a and B, RSV, COVID * Start DuoNebs q.6 hour * Will obtain chest x-ray * Incentive spirometry while awake * Pep therapy with cornet flutter valve 07/15 * no change to current treatment plan 07/17 * Chest x-ray ordered * Still coarse rhonchi * Patient finished course Tamiflu for influenza a * Continue incentive spirometry and pep therapy 07/18 - Completed tamiflu, breathing easily. Lungs diminished bilaterally with slightly coarse rales in the right. (11) Urinary retention: Code(s): R33.9 - Retention of urine, unspecified Status: Acute Assessment and Plan: 07/11/24: * Patient had acute urinary retention requiring Fitzpatrick on 07/03/24 * Urology was consulted * Patient failed voiding trial * Patient will keep catheter and repeat voiding trial in 1-2 weeks on an outpatient basis with Urology 07/15 * no change to current treatment plan 07/18 - Catheter in place, consider trial of voiding 07/25 at the two week kelly. (12) Hypokalemia: Code(s): E87.6 - Hypokalemia Status: Acute Assessment and Plan: 07/11/24: * Potassium 4.3 * No need for replacement * Resolved 07/15 * potassium 3.5 * no replacement needed 07/16 * potassium 3.7 * no replacement needed (13) Hypothyroidism: Qualifiers: Hypothyroidism type: unspecified Qualified Code(s): E03.9 - Hypothyroidism, unspecified Code(s): E03.9 - Hypothyroidism, unspecified Status: Chronic Assessment and Plan: 07/11/24 * Continue Synthroid 07/15 * no change to current treatment plan 07/18 - Cont. current. (14) Hypertension: Qualifiers: Hypertension type: primary hypertension Qualified Code(s): I10 - Essential (primary) hypertension Code(s): I10 - Essential (primary) hypertension Status: Chronic Assessment and Plan: 07/11/25 * Blood pressure ranging 105/ 81 to 146/73 * Continue metoprolol, Benicar and monitor. 07/15 * no change to current treatment plan 07/18 - BP generally 130-140, trending higher this am, consider uptitration if trend continues. Plan Melissa Tom is a 73 year old female initially presenting with AMS found to have CVA and seizure with failed o/p management of c.diff/diverticulitis. Complicated hospital course with acute VTE of the lower ext, anemia requiring transfusions, most recent 2 units on 07/17/24. She has developed urinary retention and fitzpatrick has been in place. Completed tamiflu for influenza A yesterday - a focal infiltrate is now noted and patient less oriented. Abx for pna have been started today, 07/18/24. Time Spent With Patient Time with patient: Greater than 35 minutes Subjective Date/time seen: 07/18/24 07:19 Interval history: Melissa arouses to verbal stimulation and is able to answer simple questions. She does not endorse new pain or complaint. She is more rousable later in the morning. Review of Systems Review of Systems: All systems reviewed & are unremarkable except as noted in HPI and below Exam Narrative: GENERAL APPEARANCE: Appears to be in no acute distress. HEAD: normocephalic atraumatic EYES: EOMI. ENT: Hearing grossly intact, no nasal discharge NECK: Neck supple, trachea midline. CARDIAC: Normal S1/S2. Rhythm is regular. No murmurs, rubs, or gallops. No cyanosis or pallor. Extremities are warm and well perfused. LUNGS: Clear to auscultation without rales, rhonchi, wheezing. Breath sounds are bilaterally diminished.. Respirations even and unlabored. ABDOMEN: BS positive x 4 quadrants. Soft, nondistended, nontender. No guarding or rebound. MSK: No joint tenderness/swelling, fair strength in all extremities. PERIPHERAL VASCULAR: Peripheral pulses palpable. Normal perfusion, cap refill <2 seconds. No edema. NEURO: Follows commands. No focal deficits.Drowsy this am but oriented to self and situation. SKIN: Reeves without lesions or eruptions. PSYCH: Stable, Objective Data Vital Signs Vital Signs: Vital Signs - 24 hr 07/17/24 08:15 07/17/24 08:25 07/17/24 09:45 Temperature Pulse Rate 77 73 100 Respiratory Rate 18 18 Blood Pressure Pulse Oximetry Oxygen Delivery 07/17/24 09:45 07/17/24 12:17 07/17/24 12:35 Temperature 97.4 F L 98 F Pulse Rate 97 90 Respiratory Rate 16 16 Blood Pressure 137/79 130/71 Pulse Oximetry 100 100 Oxygen Delivery Room Air 07/17/24 13:35 07/17/24 14:00 07/17/24 14:40 Temperature 97.4 F L 98.2 F Pulse Rate 85 96 96 Respiratory Rate 16 18 18 Blood Pressure 149/60 H 127/71 Pulse Oximetry 100 98 Oxygen Delivery 07/17/24 14:51 07/17/24 16:10 07/17/24 16:27 Temperature 98 F 98 F Pulse Rate 97 97 95 Respiratory Rate 18 16 16 Blood Pressure 145/73 H 137/60 Pulse Oximetry 100 95 Oxygen Delivery 07/17/24 17:27 07/17/24 18:57 07/17/24 20:53 Temperature 98 F 98 F Pulse Rate 95 95 106 H Respiratory Rate 16 16 Blood Pressure 142/80 H 142/86 H Pulse Oximetry 94 100 Oxygen Delivery 07/17/24 21:22 07/17/24 21:35 07/17/24 21:47 Temperature 97.5 F L Pulse Rate 108 H 96 96 Respiratory Rate 18 18 18 Blood Pressure 139/97 H Pulse Oximetry 95 Oxygen Delivery 07/18/24 05:53 Temperature 97.9 F Pulse Rate 90 Respiratory Rate 20 Blood Pressure 157/81 H Pulse Oximetry 97 Oxygen Delivery Intake/Output Intake/Output: Intake & Output 07/15/24 07/16/24 07/17/24 07/18/24 23:59 23:59 23:59 23:59 Intake Total 4122 169 5268 300 Output Total 5713 628 0693 450 Balance -110 -64 816 -150 Meds/Results Medications: Active Medications Generic Name Dose Route Start Last Admin Trade Name Freq PRN Reason Stop Dose Admin Acetaminophen 1,000 mg 07/11/24 16:52 07/15/24 04:01 Acetaminophen 500 Mg Tablet PO 1,000 mg Q6H PRN Administration Mild Pain (1-3) or Fever Albuterol/Ipratropium 3 ml 07/11/24 20:00 07/17/24 21:39 Ipratropium 0.5 Mg/Albuterol Sulfate 2.5 Mg Ampul.Neb 3 Ml INHALATION 3 ml Q6HRT SOLITARIO Administration Alprazolam 1 mg 07/03/24 00:03 07/15/24 04:01 Alprazolam (*Crx) 0.5 Mg Tablet PO 1 mg QID PRN Administration anxiety Apixaban 5 mg 07/12/24 21:00 07/16/24 21:24 Apixaban 5 Mg Tablet PO 5 mg Q12HR SOLITARIO Administration Atorvastatin Calcium 80 mg 07/04/24 21:00 07/17/24 09:46 Atorvastatin 40 Mg Tablet PO 80 mg DAILY SOLITARIO Administration Calcium Carbonate 500 mg 07/14/24 08:00 07/17/24 18:02 Calcium Carbonate (Oscal) 500 Mg Tablet PO 500 mg BIDWM SOLITARIO Administration Cyanocobalamin 1,000 mcg 07/12/24 09:00 07/17/24 09:45 Cyanocobalamin 1,000 Mcg Tablet PO 1,000 mcg DAILY SOLITARIO Administration Ferrous Sulfate 325 mg 07/15/24 09:00 07/17/24 09:45 Ferrous Sulfate [address] PO 325 mg DAILY SOLITARIO Administration Folic Acid 1 mg 07/03/24 09:00 07/17/24 09:45 Folic Acid 1 Mg Tablet PO 1 mg DAILY SOLITARIO Administration Guaifenesin 1,200 mg 07/11/24 21:00 07/17/24 20:53 Guaifenesin 12 Hr 600 Mg Tabcr PO 1,200 mg Q12HR SOLITARIO Administration Levetiracetam 500 mg 07/03/24 12:30 07/17/24 20:52 Levetiracetam 500 Mg Tablet PO 500 mg Q12HR SOLITARIO Administration Levothyroxine Sodium 75 mcg 07/03/24 06:30 07/18/24 05:45 Levothyroxine Sodium 75 Mcg Tablet PO 75 mcg DAILY@0630 SOLITARIO Administration Lidocaine 1 patch 07/12/24 09:00 07/17/24 09:45 Lidocaine 5% Patch TRANSDERM 1 patch DAILY SOLITARIO Administration Lorazepam 1 mg 07/02/24 23:55 Lorazepam Inj (*Crx) 2 Mg/Ml Vial IV PUSH Q2H PRN Seizures Magnesium Oxide 400 mg 07/06/24 17:00 07/17/24 18:02 Magnesium Oxide 400 Mg Tablet PO 400 mg BID SOLITARIO Administration Metoprolol Tartrate 50 mg 07/03/24 09:00 07/17/24 20:53 Metoprolol Tartrate 50 Mg Tab PO 50 mg Q12HR SOLITARIO Administration Montelukast Sodium 10 mg 07/03/24 00:15 07/17/24 20:53 Montelukast Sodium 10 Mg Tablet PO 10 mg HS SOLITARIO Administration Olmesartan 40 mg 07/03/24 09:00 07/17/24 09:45 Olmesartan Medoxomil 20 Mg Tablet PO 40 mg DAILY SOLITARIO Administration Pantoprazole Sodium 40 mg 07/09/24 12:35 07/17/24 20:53 Pantoprazole Sodium Iv 40 Mg Vial IV PUSH 40 mg Q12HR SOLITARIO Administration Sodium Bicarbonate 650 mg 07/16/24 17:00 07/17/24 18:02 Sodium Bicarbonate Tab 650 Mg Tablet PO 650 mg TID SOLITARIO Administration Sodium Chloride 20 ml 07/04/24 16:15 Central Line Flush IV PUSH PRN PRN after blood draws Sodium Chloride 10 ml 07/04/24 16:15 Central Line Flush IV PUSH PRN PRN with TPN bag changes Sodium Chloride 10 ml 07/04/24 22:00 07/18/24 06:13 Central Line Flush IV PUSH 10 ml Q8HR SOLITARIO Administration Tramadol HCl 100 mg 07/11/24 16:49 07/15/24 20:33 Tramadol Hcl (*Crx) 50 Mg Tablet PO 100 mg HS PRN Administration Pain Rated 4-6 (night) Tramadol HCl 50 mg 07/11/24 16:49 07/15/24 16:35 Tramadol Hcl (*Crx) 50 Mg Tablet PO 50 mg DAILY PRN Administration Pain Rated 4-6 (day) Trazodone HCl 100 mg 07/11/24 21:00 07/17/24 20:50 Trazodone Hcl 50 Mg Tablet PO 100 mg HS SOLITARIO Administration Vancomycin HCl 125 mg 07/09/24 17:00 07/17/24 20:52 Vancomycin Hcl 125 Mg Oral Capsule PO 125 mg QID SOLITARIO Administration Radiology Results: ITS Impressions Head CT 07/02/24 14:34 IMPRESSION: 1. Normal aging brain. Abdomen/Pelvis CT 07/02/24 14:36 IMPRESSION: 1. Persistent small collection of extra luminal gas in the left lower quadrant anterior abdominal wall immediately adjacent to a region of inflammatory stranding surrounding the descending colon consistent with diverticulitis. No abscess or more remote free intraperineal gas or fluid. 2. Persistent moderate-sized bilateral posterior layering pleural effusions with dependent compressive atelectasis in the visualized lower lobes. Brain MRI 07/04/24 11:30 IMPRESSION: 1. 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 2. 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 3. Diffuse pachymeningeal enhancement. This finding is most commonly secondary to prior lumbar puncture or spine procedure. ADDENDUM: 07/04/24 1216 The contrast volume was 20 mL MultiHance. Venous Doppler Study 07/05/24 14:17 IMPRESSION: 1. Extensive deep vein thrombosis in right lower limb. I called this result to Elsy Tao. Chest X-Ray 07/17/24 18:28 IMPRESSION: 1. Airspace opacities at left lung base, consistent with atelectasis versus pneumonia. 2. Small left pleural effusion. Labs Labs: Laboratory Results - last 24 hr 07/17/24 07/17/24 07:40 20:49 WBC 8.2 RBC 3.57 L Hgb 10.7 L D Hct 32.7 L MCV 91.6 D MCH 30.0 MCHC 32.7 RDW 20.9 H Plt Count 204 MPV 10.7 H Immature Gran % (Auto) 1.9 H Neut % (Auto) 74.6 H Lymph % (Auto) 14.4 L [place] % (Auto) 8.9 H Eos % (Auto) 0.1 Baso % (Auto) 0.1 L Lymph # (Auto) 1.18 [place] # (Auto) 0.7 H Eos # (Auto) 0.0 Baso # (Auto) 0.0 Abs Immat Gran (auto) 0.16 H Absolute Neuts (auto) 6.1 Absolute Nucleated RBC 0.000 Nucleated RBC % 0.0 Blood Type O Negative Antibody Screen Negative Crossmatch See Detail Quality If No VTE Prophylaxis Answer both mechanical and pharmacologic: Reason no mechanical VTE proph: medical contraindication Reason no pharmacologic proph: medical contraindication Hospitalist MIPS Advance Care Plan I have confirmed that the patient's Advanced Care Plan is present, code status is documented, or surrogate decision maker is listed in patient medical record.: Yes Medication Reconciliation I have utilized all available resources to obtain, update and review the patients current medications (includes all prescriptions, OTC, herbals, cannabis, and nutritional supplements).: Yes
[2024-07-18 09:04] LABS: Glucose Point of Care 86 mg/dl (65-105)
[2024-07-18] MEDS: IPRATROPIUM 0.5 MG/ALBUTEROL SULFATE 2.5 MG AMPUL.NEB 3 ML INHALATION ×3 (09:30→21:28)
--- NOTE | 2024-07-18 10:30 | PC.NURSE ---
RN and Julian ENGINEERING SUPERVISOR at bedside. Patient very drowsy and lethargic. RN had NAT petersonb a set of vitals (see vitals) and blood sugar (see labs). RN holding off on medications until patient is more alert and can follow commands to swallow.
[2024-07-18 11:13] LABS: Hematocrit 36.5 % (37.0-47.0); Hemoglobin 11.8 g/dL (12.0-15.0); Mean Corpuscular HGB Conc 32.3 g/dl (32-36); Mean Corpuscular Volume 92.9 fl (80-100); Mean Platelet Volume 11.2 fl (7.4-10.4); Platelet Count Result 208 k/mm3 (150-375); Red Blood Count 3.93 M/mm3 (4.2-5.4); White Blood Count 6.5 K/mm3 (4.5-10.0)
[2024-07-18] MEDS: guaiFENesin 12 HR 600 MG TABCR 1200 MG PO ×2 (11:29→21:32)
[2024-07-18] MEDS: CYANOCOBALAMIN 1,000 MCG TABLET 1000 MCG PO (11:29)
[2024-07-18] MEDS: VANCOMYCIN HCL 125 MG ORAL CAPSULE PO ×3 (11:29→21:32)
[2024-07-18] MEDS: CALCIUM CARBONATE (OSCAL) 500 MG TABLET PO ×2 (11:29→17:42)
[2024-07-18] MEDS: OLMESARTAN MEDOXOMIL 20 MG TABLET 40 MG PO (11:29)
[2024-07-18] MEDS: levETIRAcetam 500 MG TABLET PO ×2 (11:30→21:32)
[2024-07-18] MEDS: FOLIC ACID 1 MG TABLET PO (11:30)
[2024-07-18] MEDS: SODIUM BICARBONATE TAB 650 MG TABLET PO ×2 (11:30→17:42)
[2024-07-18] MEDS: FERROUS SULFATE 325 MG TABLET DR PO (11:30)
[2024-07-18] MEDS: MAGNESIUM OXIDE 400 MG TABLET PO ×2 (11:30→17:42)
[2024-07-18] MEDS: AZITHROMYCIN 500 MG/NS 250 ML 500 MG/250 ML BAG 250 MG IVPB (11:31)
[2024-07-18] MEDS: METOPROLOL TARTRATE 50 MG TAB PO ×2 (11:32→21:32)
[2024-07-18] MEDS: PANTOPRAZOLE SODIUM IV 40 MG VIAL IV PUSH ×2 (11:40→21:34)
[2024-07-18] MEDS: LIDOCAINE 5% PATCH 1 PATCH TRANSDERM (11:40)
[2024-07-18 11:48] LABS: Procalcitonin 0.2 ng/mL
[2024-07-18 12:20] LABS: Anion Gap 8 mmol/L (4-12); Blood Urea Nitrogen 19 mg/dL (7-17); Carbon Dioxide 21 mmol/L (22-30); Chloride 114 mmol/L (98-107); Estimated CRCL calculation 52 ml/min; Estimated Glomerular Filt Rate 57; Glucose 86 mg/dL (65-110); Potassium 3.6 mmol/L (3.4-5.0); Sodium 143 mmol/L (137-145)
[2024-07-18] MEDS: ACETAMINOPHEN 500 MG TABLET 1000 MG PO (14:06)
[2024-07-18 14:29] LABS: Add Urine Microscopic? YES; Appearance Urine Turbid (Clear); Bacteria Urine None Seen /hpf; Bilirubin Urine Negative (Negative); Blood Urine 2+ (Negative); Budding Yeast Urine Present /hpf; Color Urine Dark Yellow (Yellow); Glucose Urine UA Negative (Negative); Ketones Urine 1+ mg/dL (Negative); Leukocyte Esterase Ur 2+ LEU/UL (Negative); Need Manual Microscopic Reviewed; Nitrate Urine Negative (Negative); Protein Urine 1+ mg/dL (Negative); RBC Urine 51-100 /hpf (0-2); Specific Grav Ur 1.023 (1.001-1.035); Squamous Epithelial Cell Urine None Seen /hpf (Few); Urobilinogen Urine 0.2 mg/dL (<2.0); WBC Urine >100 /hpf (0-3); pH Urine 5.5 (5.0-9.0)
[2024-07-18] MEDS: traZODone HCL 50 MG TABLET 100 MG PO (21:32)
[2024-07-18] MEDS: MONTELUKAST SODIUM 10 MG TABLET PO (21:32)
[2024-07-19] VITALS (7 sets, daily range): BP systolic 129–162; BP diastolic 72–85; PULSE 78–97; RESP 16–18; TEMP 36.1–36.7; O2SAT 96–99
[2024-07-19] MEDS: IPRATROPIUM 0.5 MG/ALBUTEROL SULFATE 2.5 MG AMPUL.NEB 3 ML INHALATION ×2 (02:38→13:39)
[2024-07-19] MEDS: LEVOTHYROXINE SODIUM 75 MCG TABLET PO (05:35)
[2024-07-19] MEDS: CENTRAL LINE FLUSH 10 ML IV PUSH ×3 (05:35→22:05)
[2024-07-19 06:22] LABS: Alanine Aminotransferase 13 U/L (6-35); Albumin Level 2.4 g/dL (3.5-5.1); Alkaline Phosphatase 126 U/L (38-126); Anion Gap 6 mmol/L (4-12); Aspartate Amino Transferase 27 U/L (14-36); Bilirubin,Total 1.1 mg/dL (0.2-1.3); Blood Urea Nitrogen 18 mg/dL (7-17); Carbon Dioxide 23 mmol/L (22-30); Chloride 113 mmol/L (98-107); Estimated CRCL calculation 45 ml/min; Estimated Glomerular Filt Rate 48; Glucose 78 mg/dL (65-110); Magnesium 1.9 mg/dL (1.6-2.3); Potassium 3.4 mmol/L (3.4-5.0); Sodium 142 mmol/L (137-145)
[2024-07-19 06:37] LABS: Hematocrit 32.4 % (37.0-47.0); Hemoglobin 10.4 g/dL (12.0-15.0); Mean Corpuscular HGB Conc 32.1 g/dl (32-36); Mean Corpuscular Volume 93.4 fl (80-100); Mean Platelet Volume 10.9 fl (7.4-10.4); Platelet Count Result 203 k/mm3 (150-375); Red Blood Count 3.47 M/mm3 (4.2-5.4); Red Cell Distribution Width 21.8 % (11.5-14.5); White Blood Count 6.6 K/mm3 (4.5-10.0)
[2024-07-19 06:54] LABS: Procalcitonin 0.2 ng/mL
[2024-07-19] MEDS: AZITHROMYCIN 500 MG/NS 250 ML 500 MG/250 ML BAG 250 MG IVPB (10:00)
[2024-07-19] MEDS: FOLIC ACID 1 MG TABLET PO (10:09)
[2024-07-19] MEDS: OLMESARTAN MEDOXOMIL 20 MG TABLET 40 MG PO (10:09)
[2024-07-19] MEDS: FERROUS SULFATE 325 MG TABLET DR PO (10:09)
[2024-07-19] MEDS: guaiFENesin 12 HR 600 MG TABCR 1200 MG PO ×2 (10:10→21:10)
[2024-07-19] MEDS: levETIRAcetam 500 MG TABLET PO ×2 (10:10→21:10)
[2024-07-19] MEDS: VANCOMYCIN HCL 125 MG ORAL CAPSULE PO ×2 (10:10→13:16)
[2024-07-19] MEDS: CALCIUM CARBONATE (OSCAL) 500 MG TABLET PO ×2 (10:10→17:30)
[2024-07-19] MEDS: METOPROLOL TARTRATE 50 MG TAB PO ×2 (10:10→21:11)
[2024-07-19] MEDS: ATORVASTATIN 40 MG TABLET 80 MG PO (10:10)
[2024-07-19] MEDS: CYANOCOBALAMIN 1,000 MCG TABLET 1000 MCG PO (10:10)
[2024-07-19] MEDS: MAGNESIUM OXIDE 400 MG TABLET PO ×2 (10:11→17:30)
[2024-07-19] MEDS: SODIUM BICARBONATE TAB 650 MG TABLET PO ×3 (10:11→17:30)
[2024-07-19] MEDS: PANTOPRAZOLE SODIUM IV 40 MG VIAL IV PUSH ×2 (10:11→22:08)
[2024-07-19] MEDS: LIDOCAINE 5% PATCH 1 PATCH TRANSDERM (10:12)
--- NOTE | 2024-07-19 13:54 | P.PNIM_ITS ---
Progress Note: A&P Assessment and Plan (1) CVA (cerebral vascular accident): Code(s): I63.9 - Cerebral infarction, unspecified Status: Acute Assessment and Plan: 07/11/24: * MRA of brain showing acute infarct in the left frontoparietal lobe in the deep white matter * Left lower extremity weakness * PT and OT ordered * Continue atorvastatin, Plavix * Aspirin currently on hold as she is on Eliquis for DVT prophylaxis * A Neurology following 07/15 * continue Eliquis * neurology following 07/16 * No change 07/18 - Stable. On atorvastatin. Asa/plavix previously held. Apixaban resumed. (2) Seizure: Code(s): R56.9 - Unspecified convulsions Status: Acute Assessment and Plan: 07/11 * New onset * CT of the head was negative * MRI showing acute infarct in the left frontoparietal lobe in deep white matter * EEG findings abnormal read, cannot rule out seizure activity * Continue atorvastatin, Plavix * Will hold baby aspirin considering patient is on Eliquis * Continue Keppra * Continue seizure precautions * Cardiac telemetry stable, we will go ahead and discontinue continuous telemetry * Move out of IMU to regular med surge floor 07/15 * continue neuro checks * continue seizure precautions * continue Keppra, atorvastatin, Plavix * neurology following 07/16 * no change 07/18 - No new seizure activity. - Cont. keppra at 500mg bid. (3) C. difficile diarrhea: Code(s): A04.72 - Enterocolitis due to Clostridium difficile, not specified as recurrent Status: Acute Assessment and Plan: 07/11/24 * Continue vancomycin pulse dosing * Pulse taper vanc dose as follows: 125 mg orally 4 times daily for 10 to 14 days, then 125 mg orally twice daily for 7 days, then 125 mg orally once daily for 7 days, then 125 mg orally every 2 to 3 days for 2 to 8 weeks 07/15 * no change to current treatment plan 07/18 - Cont. current pulse/taper. Orders are in. (4) Diverticulitis of intestine with perforation without abscess: Qualifiers: Diverticulitis bleeding: without bleeding Diverticulitis site: large intestine Qualified Code(s): K57.20 - Diverticulitis of large intestine with perforation and abscess without bleeding Code(s): K57.80 - Diverticulitis of intestine, part unspecified, with perforation and abscess without bleeding Status: Acute Assessment and Plan: 07/11/24 * Failed Dificid * Continue oral vancomycin 07/15 * continue oral vancomycin 07/16 * No change 07/18 - Stable, completing oral vancomycin pulse/taper. (5) Anemia: Qualifiers: Anemia type: due to chronic kidney disease Chronic kidney disease stage: unspecified stage Qualified Code(s): N18.9 - Chronic kidney disease, unspecified; D63.1 - Anemia in chronic kidney disease Code(s): D64.9 - Anemia, unspecified Status: Acute Assessment and Plan: 07/11/24 * Continue to transfuse for hemoglobin less than 7 * Patient receive 1 unit of blood this admission * Currently on Eliquis, Plavix * Will hold aspirin * Continue to trend 07/15 * hemoglobin 7.5 * no change to current treatment plan 07/18 - S/P 2 units prbc overnight with improvement noted on overnight labs. - Resume anticoag. - GI had been consulted, not able to perform colonoscopy currently with diverticulitis, patient had previously refused as well. (6) Acute DVT (deep venous thrombosis): Code(s): I82.409 - Acute embolism and thrombosis of unspecified deep veins of unspecified lower extremity Status: Acute Assessment and Plan: 07/11/24 * Venous Doppler showing extensive right lower extremity DVT * Patient was started on Lovenox and then switched to heparin infusion on 07/09/2024. She later developed dark tarry stools and a drop in her hemoglobin requiring blood transfusion. Heparin drip was placed on hold for 24 hours and then she was restarted on Eliquis 10 mg daily x7 days--standard protocol * General surgery was consulted for IVC filter however she is not a candidate at this time due to her other comorbidities * Continue Eliquis as stated above 07/15 * continue Eliquis 07/16 * No change 07/18 - Eliquis held overnight d/t needing two units prbc. - Stable hgb resuming eliquis. (7) Occult blood in stools: Code(s): R19.5 - Other fecal abnormalities Status: Acute Assessment and Plan: 07/11/24 * Patient was occult blood positive on 07/09/2024 * She was given 1 unit of blood * H&H is stable * GI recommending outpatient colonoscopy considering her comorbidities * Recently diagnosed with diverticulitis and C diff colitis 07/15 * hemoglobin 7.5 * continue to trend 07/16 * No change 07/18 - Transfused two units prbc overnight with appropriate rise in hgb on repeat labs overnight. - Apixaban will resume. (8) Delirium: Code(s): R41.0 - Disorientation, unspecified Status: Acute Assessment and Plan: 07/15 * more confused today * continue neuro checks * encourage good sleep hygiene 07/16 * continue neuro checks * currently alert and oriented x3 07/18 - Drowsy this am but rousable and and answers questions. Improved later in the am. No focal deficits. - Cont. to monitor closely for developing infection - post influenza pna, UTI, etc. Check urine this am, pending. - Treating for pna. (9) Pneumonia: Code(s): J18.9 - Pneumonia, unspecified organism Status: Acute Assessment and Plan: 07/18 - Slightly less oriented than reported from day prior this morning, improving in the late morning, cxr shows infiltrate. Plan to start ceftriaxone/zithromycin today day 1. (10) Upper respiratory infection: Code(s): J06.9 - Acute upper respiratory infection, unspecified Status: Acute Assessment and Plan: 07/11/24 * Patient reported cold-like symptoms with a nonproductive cough and wheezing * Will check for influenza a and B, RSV, COVID * Start DuoNebs q.6 hour * Will obtain chest x-ray * Incentive spirometry while awake * Pep therapy with cornet flutter valve 07/15 * no change to current treatment plan 07/17 * Chest x-ray ordered * Still coarse rhonchi * Patient finished course Tamiflu for influenza a * Continue incentive spirometry and pep therapy 07/18 - Completed tamiflu, breathing easily. Lungs diminished bilaterally with slightly coarse rales in the right. (11) Urinary retention: Code(s): R33.9 - Retention of urine, unspecified Status: Acute Assessment and Plan: 07/11/24: * Patient had acute urinary retention requiring Fitzpatrick on 07/03/24 * Urology was consulted * Patient failed voiding trial * Patient will keep catheter and repeat voiding trial in 1-2 weeks on an outpatient basis with Urology 07/15 * no change to current treatment plan 07/18 - Catheter in place, consider trial of voiding 07/25 at the two week kelly. (12) Hypokalemia: Code(s): E87.6 - Hypokalemia Status: Acute Assessment and Plan: 07/11/24: * Potassium 4.3 * No need for replacement * Resolved 07/15 * potassium 3.5 * no replacement needed 07/16 * potassium 3.7 * no replacement needed (13) Hypothyroidism: Qualifiers: Hypothyroidism type: unspecified Qualified Code(s): E03.9 - Hypothyroidism, unspecified Code(s): E03.9 - Hypothyroidism, unspecified Status: Chronic Assessment and Plan: 07/11/24 * Continue Synthroid 07/15 * no change to current treatment plan 07/18 - Cont. current. (14) Hypertension: Qualifiers: Hypertension type: primary hypertension Qualified Code(s): I10 - Essential (primary) hypertension Code(s): I10 - Essential (primary) hypertension Status: Chronic Assessment and Plan: 07/11/25 * Blood pressure ranging 105/ 81 to 146/73 * Continue metoprolol, Benicar and monitor. 07/15 * no change to current treatment plan 07/18 - BP generally 130-140, trending higher this am, consider uptitration if trend continues. Plan Melissa Tom is a 73 year old female initially presenting with AMS found to have CVA and seizure with failed o/p management of c.diff/diverticulitis. Complicated hospital course with acute VTE of the lower ext, anemia requiring transfusions, most recent 2 units on 07/17/24. She has developed urinary retention and fitzpatrick has been in place. Completed tamiflu for influenza A yesterday - a focal infiltrate is now noted and patient less oriented. Abx for pna have been started today, 07/18/24. Subjective Date/time seen: 07/19/24 13:54 Interval history: Patient has multiple comorbid conditions which is being treated with. Currently the patient has been treated for CVA, seizures, C diff, diverticulitis, anemia, acute PE DVT, pneumonia, and urinary retention. Will monitor hemoglobin Review of Systems Review of Systems: All systems reviewed & are unremarkable except as noted in HPI and below Constitutional: Constitutional: Reports no additional constitutional comp laints Eyes: Eyes: Reports no additional eye complaints ENT: Reports system reviewed and no additional complaints, except as documented Cardiovascular: Cardiovascular: Reports no additional cardiovascular complaints Respiratory: Respiratory: Reports no additional respiratory complaints Gastrointestinal: Gastrointestinal: Reports no additional gastrointestinal complaints and Reports diarrhea Genitourinary: Genitourinary: Reports no additional female genitourinary complaints Musculoskeletal: Musculoskeletal: Reports no additional musculoskeletal complaints Integumentary/Breasts: Skin/Breast: Reports system reviewed and no additional complaints, except as docu and Reports as per HPI Neurologic: Reports system reviewed and no additional complaints, except as documented Psychiatric: Psychiatric: Reports no additional psychiatric complaints and Reports as per HPI Endocrine: Endocrine: Reports no additional endocrine complaints and Reports as per HPI Hematologic/Lymphatic: Hematologic/Lymphatic: Reports no additional hematologic/lymphatic complaints and Reports as per HPI Allergic/Immunologic: Allergic/Immunologic: Reports no additional allergic/immunologic complaints and Reports as per HPI Exam Narrative: GENERAL APPEARANCE: Appears to be in no acute distress. HEAD: normocephalic atraumatic EYES: EOMI. ENT: Hearing grossly intact, no nasal discharge NECK: Neck supple, trachea midline. CARDIAC: Normal S1/S2. Rhythm is regular. No murmurs, rubs, or gallops. No cyanosis or pallor. Extremities are warm and well perfused. LUNGS: Clear to auscultation without rales, rhonchi, wheezing. Breath sounds are bilaterally diminished.. Respirations even and unlabored. ABDOMEN: BS positive x 4 quadrants. Soft, nondistended, nontender. No guarding or rebound. MSK: No joint tenderness/swelling, fair strength in all extremities. PERIPHERAL VASCULAR: Peripheral pulses palpable. Normal perfusion, cap refill <2 seconds. No edema. NEURO: Follows commands. No focal deficits.Drowsy this am but oriented to self and situation. SKIN: [place] without lesions or eruptions. PSYCH: Stable, Const: General: cooperative, no acute distress, alert, awake and obese Nutritional Appearance: obese Orientation/consciousness: oriented to person, oriented to place and oriented to time HENMT: Head: normal to inspection and normocephalic Eyes: General: appearance normal, both eyes and all related structures Neck: Neck: normal visual inspection, full ROM and no lymphadenopathy Chest: Chest palpation & inspection: normal inspection of the chest Resp: Effort & Inspection: normal respiratory effort, able to speak in complete sentences and Actively coughing Auscultation: clear to auscultation bilaterally and diminished lung sounds bilateral in the lower lung forbes Cardio: Jugular venous distension: no JVD Palpation: normal PMI Rate: regular rate Rhythm: regular rhythm Heart sounds: S1 normal heart sound present and S2 normal heart sound present GI: Inspection: normal to inspection Auscultation: High-pitched bowel sounds present and Hyperactive bowel sounds present Rectal Exam: other (rectal tube in place, liquid stool noted) Other: rectal tube in place and draining liquid stool Urinary Catheter: Urinary Catheter: patent and draining and urine clear Skin: General skin exam: normal color and no rashes or lesions noted Neuro: General: oriented to person, oriented to place, oriented to time, tone normal and moves all extremities Extrem: General: normal to inspection and full ROM Psych: Appearance: grossly normal Mental Status: mental status grossly normal Speech and movement: Normal speech and movement present Objective Data Vital Signs Vital Signs: Vital Signs - 24 hr 07/18/24 14:00 07/18/24 14:44 07/18/24 21:29 Temperature 97.8 F Pulse Rate 93 98 Respiratory Rate 20 18 Blood Pressure 160/79 H Pulse Oximetry 98 93 Oxygen Delivery Room Air 07/18/24 21:29 07/18/24 21:32 07/18/24 21:34 Temperature 99.5 F Pulse Rate 108 H 108 H 109 H Respiratory Rate 18 16 Blood Pressure 131/73 Pulse Oximetry 100 Oxygen Delivery 07/18/24 21:40 07/19/24 02:38 07/19/24 02:48 Temperature Pulse Rate 105 H 78 80 Respiratory Rate 18 18 18 Blood Pressure Pulse Oximetry Oxygen Delivery 07/19/24 04:45 07/19/24 10:10 07/19/24 10:15 Temperature 98.0 F Pulse Rate 97 97 Respiratory Rate 16 Blood Pressure 129/72 Pulse Oximetry 99 Oxygen Delivery Room Air Intake/Output Intake/Output: Intake & Output 07/16/24 07/17/24 07/18/24 07/19/24 23:59 23:59 23:59 23:59 Intake Total 836 2016 1560 790 Output Total 900 1200 1150 275 Balance -64 816 410 515 Meds/Results Medications: Active Medications Generic Name Dose Route Start Last Admin Trade Name Freq PRN Reason Stop Dose Admin Acetaminophen 1,000 mg 07/11/24 16:52 07/18/24 14:06 Acetaminophen 500 Mg Tablet PO 1,000 mg Q6H PRN Administration Mild Pain (1-3) or Fever Albuterol/Ipratropium 3 ml 07/11/24 20:00 07/19/24 13:41 Ipratropium 0.5 Mg/Albuterol Sulfate 2.5 Mg Ampul.Neb 3 Ml INHALATION Not Given Q6HRT SOLITARIO Alprazolam 1 mg 07/03/24 00:03 07/15/24 04:01 Alprazolam (*Crx) 0.5 Mg Tablet PO 1 mg QID PRN Administration anxiety Apixaban 5 mg 07/12/24 21:00 07/16/24 21:24 Apixaban 5 Mg Tablet PO 5 mg Q12HR SOLITARIO Administration Atorvastatin Calcium 80 mg 07/04/24 21:00 07/19/24 10:10 Atorvastatin 40 Mg Tablet PO 80 mg DAILY SOLITARIO Administration Calcium Carbonate 500 mg 07/14/24 08:00 07/19/24 10:10 Calcium Carbonate (Oscal) 500 Mg Tablet PO 500 mg BIDWM SOLITARIO Administration Cyanocobalamin 1,000 mcg 07/12/24 09:00 07/19/24 10:10 Cyanocobalamin 1,000 Mcg Tablet PO 1,000 mcg DAILY SOLITARIO Administration Ferrous Sulfate 325 mg 07/15/24 09:00 07/19/24 10:09 Ferrous Sulfate [address] PO 325 mg DAILY SOLITARIO Administration Folic Acid 1 mg 07/03/24 09:00 07/19/24 10:09 Folic Acid 1 Mg Tablet PO 1 mg DAILY SOLITARIO Administration Guaifenesin 1,200 mg 07/11/24 21:00 07/19/24 10:10 Guaifenesin 12 Hr 600 Mg Tabcr PO 1,200 mg Q12HR SOLITARIO Administration Ceftriaxone Sodium 1 gm in 50 mls @ 100 mls/hr 07/18/24 11:00 07/19/24 10:12 Rocephin 1 Gm/Ns 50 Ml IVPB 100 mls/hr Q24H SOLITARIO Administration Azithromycin 500 mg in 250 mls @ 250 mls/hr 07/18/24 10:00 07/19/24 10:00 Zithromax IVPB 250 mls/hr Q24H SOLITARIO Administration Levetiracetam 500 mg 07/03/24 12:30 07/19/24 10:10 Levetiracetam 500 Mg Tablet PO 500 mg Q12HR SOLITARIO Administration Levothyroxine Sodium 75 mcg 07/03/24 06:30 07/19/24 05:35 Levothyroxine Sodium 75 Mcg Tablet PO 75 mcg DAILY@0630 SOLITARIO Administration Lidocaine 1 patch 07/12/24 09:00 07/19/24 10:12 Lidocaine 5% Patch TRANSDERM 1 patch DAILY SOLITARIO Administration Lorazepam 1 mg 07/02/24 23:55 Lorazepam Inj (*Crx) 2 Mg/Ml Vial IV PUSH Q2H PRN Seizures Magnesium Oxide 400 mg 07/06/24 17:00 07/19/24 10:11 Magnesium Oxide 400 Mg Tablet PO 400 mg BID SOLITARIO Administration Metoprolol Tartrate 50 mg 07/03/24 09:00 07/19/24 10:10 Metoprolol Tartrate 50 Mg Tab PO 50 mg Q12HR SOLITARIO Administration Miscellaneous Information 1 each 07/19/24 00:01 Vancomycin 125 Mg Capsule Needs To Be Renewed Or It Will Automatically Discontinue. XX 08/18/24 00:00 CLARIFY SOLITARIO Montelukast Sodium 10 mg 07/03/24 00:15 07/18/24 21:32 Montelukast Sodium 10 Mg Tablet PO 10 mg HS SOLITARIO Administration Olmesartan 40 mg 07/03/24 09:00 07/19/24 10:09 Olmesartan Medoxomil 20 Mg Tablet PO 40 mg DAILY SOLITARIO Administration Pantoprazole Sodium 40 mg 07/09/24 12:35 07/19/24 10:11 Pantoprazole Sodium Iv 40 Mg Vial IV PUSH 40 mg Q12HR SOLITARIO Administration Sodium Bicarbonate 650 mg 07/16/24 17:00 07/19/24 13:16 Sodium Bicarbonate Tab 650 Mg Tablet PO 650 mg TID SOLITARIO Administration Sodium Chloride 20 ml 07/04/24 16:15 Central Line Flush IV PUSH PRN PRN after blood draws Sodium Chloride 10 ml 07/04/24 16:15 Central Line Flush IV PUSH PRN PRN with TPN bag changes Sodium Chloride 10 ml 07/04/24 22:00 07/19/24 05:35 Central Line Flush IV PUSH 10 ml Q8HR SOLITARIO Administration Tramadol HCl 100 mg 07/11/24 16:49 07/15/24 20:33 Tramadol Hcl (*Crx) 50 Mg Tablet PO 100 mg HS PRN Administration Pain Rated 4-6 (night) Tramadol HCl 50 mg 07/11/24 16:49 07/15/24 16:35 Tramadol Hcl (*Crx) 50 Mg Tablet PO 50 mg DAILY PRN Administration Pain Rated 4-6 (day) Trazodone HCl 100 mg 07/11/24 21:00 07/18/24 21:32 Trazodone Hcl 50 Mg Tablet PO 100 mg HS SOLITARIO Administration Vancomycin HCl 125 mg 07/09/24 17:00 07/19/24 13:16 Vancomycin Hcl 125 Mg Oral Capsule PO 125 mg QID SOLITARIO Administration Radiology Results: ITS Impressions Head CT 07/02/24 14:34 IMPRESSION: 1. Normal aging brain. Abdomen/Pelvis CT 07/02/24 14:36 IMPRESSION: 1. Persistent small collection of extra luminal gas in the left lower quadrant anterior abdominal wall immediately adjacent to a region of inflammatory stranding surrounding the descending colon consistent with diverticulitis. No abscess or more remote free intraperineal gas or fluid. 2. Persistent moderate-sized bilateral posterior layering pleural effusions with dependent compressive atelectasis in the visualized lower lobes. Brain MRI 07/04/24 11:30 IMPRESSION: 1. 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 2. 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 3. Diffuse pachymeningeal enhancement. This finding is most commonly secondary to prior lumbar puncture or spine procedure. ADDENDUM: 07/04/24 1216 The contrast volume was 20 mL MultiHance. Venous Doppler Study 07/05/24 14:17 IMPRESSION: 1. Extensive deep vein thrombosis in right lower limb. I called this result to Elsy Tao. Chest X-Ray 07/17/24 18:28 IMPRESSION: 1. Airspace opacities at left lung base, consistent with atelectasis versus pneumonia. 2. Small left pleural effusion. Labs Labs: Laboratory Results - last 24 hr 07/18/24 07/19/24 14:08 05:37 WBC 6.6 RBC 3.47 L Hgb 10.4 L Hct 32.4 L MCV 93.4 MCH 30.0 MCHC 32.1 RDW 21.8 H Plt Count 203 MPV 10.9 H Sodium 142 Potassium 3.4 Chloride 113 H Carbon Dioxide 23 Anion Gap 6 BUN 18 H Creatinine 1.12 H Estim Creat Clear Calc 45 Estimated GFR 48 L Glucose 78 Calcium 8.0 L Magnesium 1.9 Total Bilirubin 1.1 AST 27 ALT 13 Alkaline Phosphatase 126 Total Protein 5.0 L Albumin 2.4 L Procalcitonin 0.2 Urine Color Dark yellow Urine Appearance Turbid H Urine pH 5.5 Ur Specific [place] 1.023 Urine Protein 1+ H Urine Glucose (UA) Negative Urine Ketones 1+ H Ur Blood (Man) 2+ H Urine Nitrate Negative Urine Bilirubin Negative Urine Urobilinogen 0.2 Ur Leukocyte Esterase 2+ H Add Ur Microanalysis Reviewed Urine RBC 51-100 H Urine WBC >100 H Ur Squamous Epith Cells None seen Urine Bacteria None seen Urine Casts 3-5 Urine Yeast (Budding) Present H Quality VTE Prophylaxis VTE prophylaxis: pharmacologic ordered Hospitalist MIPS Advance Care Plan I have confirmed that the patient's Advanced Care Plan is present, code status is documented, or surrogate decision maker is listed in patient medical record.: Yes Medication Reconciliation I have utilized all available resources to obtain, update and review the patients current medications (includes all prescriptions, OTC, herbals, cannabis, and nutritional supplements).: Yes
--- NOTE | 2024-07-19 16:35 | PCPTNOTE ---
On 07/19/24, the student, COURTNEY Vigil, provided care and completed [facility] documentation on this patient. I have reviewed the student's documentation and agree with the findings.
[2024-07-19] MEDS: traZODone HCL 50 MG TABLET 100 MG PO (21:10)
[2024-07-19] MEDS: MONTELUKAST SODIUM 10 MG TABLET PO (21:11)
[2024-07-19] MEDS: traMADol HCL (*CRX) 50 MG TABLET 100 MG PO (22:08)
[2024-07-20] MEDS: CENTRAL LINE FLUSH 10 ML IV PUSH ×3 (05:41→21:05)
[2024-07-20] MEDS: LEVOTHYROXINE SODIUM 75 MCG TABLET PO (05:41)
[2024-07-20 06:00] VITALS: BP 147/69; PULSE 84; RESP 18; TEMP 36.9; O2SAT 97
[2024-07-20 06:13] LABS: Hematocrit 29.7 % (37.0-47.0); Hemoglobin 9.4 g/dL (12.0-15.0); Mean Corpuscular HGB Conc 31.6 g/dl (32-36); Mean Corpuscular Hemoglobin 30.2 pg (26-34); Mean Corpuscular Volume 95.5 fl (80-100); Mean Platelet Volume 10.8 fl (7.4-10.4); Platelet Count Result 177 k/mm3 (150-375); Red Blood Count 3.11 M/mm3 (4.2-5.4); Red Cell Distribution Width 21.4 % (11.5-14.5); White Blood Count 5.8 K/mm3 (4.5-10.0)
[2024-07-20 06:22] LABS: Alanine Aminotransferase 11 U/L (6-35); Alkaline Phosphatase 107 U/L (38-126); Anion Gap 6 mmol/L (4-12); Aspartate Amino Transferase 24 U/L (14-36); Bilirubin,Total 0.8 mg/dL (0.2-1.3); Blood Urea Nitrogen 17 mg/dL (7-17); Calcium 7.5 mg/dL (8.4-10.2); Carbon Dioxide 24 mmol/L (22-30); Chloride 112 mmol/L (98-107); Estimated CRCL calculation 47 ml/min; Estimated Glomerular Filt Rate 50; Glucose 67 mg/dL (65-110); Potassium 3.2 mmol/L (3.4-5.0); Sodium 142 mmol/L (137-145)
[2024-07-20 08:07] LABS: Glucose Point of Care 79 mg/dl (65-105)
[2024-07-20] MEDS: PANTOPRAZOLE SODIUM IV 40 MG VIAL IV PUSH ×2 (09:32→21:37)
[2024-07-20] MEDS: ATORVASTATIN 40 MG TABLET 80 MG PO (09:32)
[2024-07-20] MEDS: guaiFENesin 12 HR 600 MG TABCR 1200 MG PO ×2 (09:32→21:43)
[2024-07-20] MEDS: levETIRAcetam 500 MG TABLET PO ×2 (09:32→21:45)
[2024-07-20] MEDS: FOLIC ACID 1 MG TABLET PO (09:32)
[2024-07-20] MEDS: SODIUM BICARBONATE TAB 650 MG TABLET PO ×3 (09:32→17:03)
[2024-07-20] MEDS: CALCIUM CARBONATE (OSCAL) 500 MG TABLET PO ×2 (09:32→17:02)
[2024-07-20] MEDS: CYANOCOBALAMIN 1,000 MCG TABLET 1000 MCG PO (09:32)
[2024-07-20] MEDS: OLMESARTAN MEDOXOMIL 20 MG TABLET 40 MG PO (09:32)
[2024-07-20] MEDS: MAGNESIUM OXIDE 400 MG TABLET PO ×2 (09:32→17:03)
[2024-07-20] MEDS: FERROUS SULFATE 325 MG TABLET DR PO (09:33)
[2024-07-20] MEDS: AZITHROMYCIN 500 MG/NS 250 ML 500 MG/250 ML BAG 250 MG IVPB (09:33)
[2024-07-20] MEDS: METOPROLOL TARTRATE 50 MG TAB PO ×2 (09:33→21:43)
[2024-07-20] MEDS: POTASSIUM CHLORIDE 20 MEQ ER TABLET 60 MEQ PO (10:59)
[2024-07-20 11:13] LABS: Glucose Point of Care 78 mg/dl (65-105)
[2024-07-20 13:35] LABS: Potassium 3.5 mmol/L (3.4-5.0)
[2024-07-20 14:00] VITALS: BP 148/73; PULSE 77; RESP 14; TEMP 36.2; O2SAT 97
--- NOTE | 2024-07-20 15:53 | P.PNIM_ITS ---
Progress Note: A&P Assessment and Plan (1) CVA (cerebral vascular accident): Code(s): I63.9 - Cerebral infarction, unspecified Status: Acute Assessment and Plan: 07/11/24: * MRA of brain showing acute infarct in the left frontoparietal lobe in the deep white matter * Left lower extremity weakness * PT and OT ordered * Continue atorvastatin, Plavix * Aspirin currently on hold as she is on Eliquis for DVT prophylaxis * A Neurology following 07/15 * continue Eliquis * neurology following 07/16 * No change 07/20 - Stable. On atorvastatin. Asa/plavix previously held. Apixaban resumed. (2) Seizure: Code(s): R56.9 - Unspecified convulsions Status: Acute Assessment and Plan: 07/11 * New onset * CT of the head was negative * MRI showing acute infarct in the left frontoparietal lobe in deep white matter * EEG findings abnormal read, cannot rule out seizure activity * Continue atorvastatin, Plavix * Will hold baby aspirin considering patient is on Eliquis * Continue Keppra * Continue seizure precautions * Cardiac telemetry stable, we will go ahead and discontinue continuous telemetry * Move out of IMU to regular med surge floor 07/15 * continue neuro checks * continue seizure precautions * continue Keppra, atorvastatin, Plavix * neurology following 07/16 * no change 07/18-07/20 - No new seizure activity. - Cont. keppra at 500mg bid. (3) C. difficile diarrhea: Code(s): A04.72 - Enterocolitis due to Clostridium difficile, not specified as recurrent Status: Acute Assessment and Plan: 07/11/24 * Continue vancomycin pulse dosing * Pulse taper vanc dose as follows: 125 mg orally 4 times daily for 10 to 14 days, then 125 mg orally twice daily for 7 days, then 125 mg orally once daily for 7 days, then 125 mg orally every 2 to 3 days for 2 to 8 weeks 07/15 * no change to current treatment plan 07/18 - Cont. current pulse/taper. Orders are in. 07/20; Completed Oral Vancomycin (4) Diverticulitis of intestine with perforation without abscess: Qualifiers: Diverticulitis site: large intestine Diverticulitis bleeding: without bleeding Qualified Code(s): K57.20 - Diverticulitis of large intestine with perforation and abscess without bleeding Code(s): K57.80 - Diverticulitis of intestine, part unspecified, with perforation and abscess without bleeding Status: Acute Assessment and Plan: 07/11/24 * Failed Dificid * Continue oral vancomycin 07/15 * continue oral vancomycin 07/16 * No change 07/18 - Stable, completing oral vancomycin pulse/taper. 07/20: completed oral vancomycin (5) Anemia: Qualifiers: Anemia type: due to chronic kidney disease Chronic kidney disease stage: unspecified stage Qualified Code(s): N18.9 - Chronic kidney disease, unspecified; D63.1 - Anemia in chronic kidney disease Code(s): D64.9 - Anemia, unspecified Status: Acute Assessment and Plan: 07/11/24 * Continue to transfuse for hemoglobin less than 7 * Patient receive 1 unit of blood this admission * Currently on Eliquis, Plavix * Will hold aspirin * Continue to trend 07/15 * hemoglobin 7.5 * no change to current treatment plan 07/18 - S/P 2 units prbc overnight with improvement noted on overnight labs. - Resume anticoag. - GI had been consulted, not able to perform colonoscopy currently with diverticulitis, patient had previously refused as well. (6) Acute DVT (deep venous thrombosis): Code(s): I82.409 - Acute embolism and thrombosis of unspecified deep veins of unspecified lower extremity Status: Acute Assessment and Plan: 07/11/24 * Venous Doppler showing extensive right lower extremity DVT * Patient was started on Lovenox and then switched to heparin infusion on 07/09/2024. She later developed dark tarry stools and a drop in her hemoglobin requiring blood transfusion. Heparin drip was placed on hold for 24 hours and then she was restarted on Eliquis 10 mg daily x7 days--standard protocol * General surgery was consulted for IVC filter however she is not a candidate at this time due to her other comorbidities * Continue Eliquis as stated above 07/15 * continue Eliquis 07/16 * No change 07/18 - Eliquis held overnight d/t needing two units prbc. - Stable hgb resuming eliquis. 07/20: Resumed Eliquis. Will monitor H and H (7) Occult blood in stools: Code(s): R19.5 - Other fecal abnormalities Status: Acute Assessment and Plan: 07/11/24 * Patient was occult blood positive on 07/09/2024 * She was given 1 unit of blood * H&H is stable * GI recommending outpatient colonoscopy considering her comorbidities * Recently diagnosed with diverticulitis and C diff colitis 07/15 * hemoglobin 7.5 * continue to trend 07/16 * No change 07/18 - Transfused two units prbc overnight with appropriate rise in hgb on repeat labs overnight. - Apixaban will resume. (8) Delirium: Code(s): R41.0 - Disorientation, unspecified Status: Acute Assessment and Plan: 07/15 * more confused today * continue neuro checks * encourage good sleep hygiene 07/16 * continue neuro checks * currently alert and oriented x3 07/18 - Drowsy this am but rousable and and answers questions. Improved later in the am. No focal deficits. - Cont. to monitor closely for developing infection - post influenza pna, UTI, etc. Check urine this am, pending. - Treating for pna. (9) Pneumonia: Code(s): J18.9 - Pneumonia, unspecified organism Status: Acute Assessment and Plan: 07/18 - Slightly less oriented than reported from day prior this morning, improving in the late morning, cxr shows infiltrate. Plan to start ceftriaxone/zithromycin today day 1. (10) Upper respiratory infection: Code(s): J06.9 - Acute upper respiratory infection, unspecified Status: Acute Assessment and Plan: 07/11/24 * Patient reported cold-like symptoms with a nonproductive cough and wheezing * Will check for influenza a and B, RSV, COVID * Start DuoNebs q.6 hour * Will obtain chest x-ray * Incentive spirometry while awake * Pep therapy with cornet flutter valve 07/15 * no change to current treatment plan 07/17 * Chest x-ray ordered * Still coarse rhonchi * Patient finished course Tamiflu for influenza a * Continue incentive spirometry and pep therapy 07/18 - Completed tamiflu, breathing easily. Lungs diminished bilaterally with slightly coarse rales in the right. (11) Urinary retention: Code(s): R33.9 - Retention of urine, unspecified Status: Acute Assessment and Plan: 07/11/24: * Patient had acute urinary retention requiring Fitzpatrick on 07/03/24 * Urology was consulted * Patient failed voiding trial * Patient will keep catheter and repeat voiding trial in 1-2 weeks on an outpatient basis with Urology 07/15 * no change to current treatment plan 07/18 - Catheter in place, consider trial of voiding 07/25 at the two week kelly. (12) Hypokalemia: Code(s): E87.6 - Hypokalemia Status: Acute Assessment and Plan: 07/11/24: * Potassium 4.3 * No need for replacement * Resolved 07/15 * potassium 3.5 * no replacement needed 07/16 * potassium 3.7 * no replacement needed (13) Hypothyroidism: Qualifiers: Hypothyroidism type: unspecified Qualified Code(s): E03.9 - Hypothyroidism, unspecified Code(s): E03.9 - Hypothyroidism, unspecified Status: Chronic Assessment and Plan: 07/11/24 * Continue Synthroid 07/15 * no change to current treatment plan 07/18 - Cont. current. (14) Hypertension: Qualifiers: Hypertension type: primary hypertension Qualified Code(s): I10 - Essential (primary) hypertension Code(s): I10 - Essential (primary) hypertension Status: Chronic Assessment and Plan: 07/11/25 * Blood pressure ranging 105/ 81 to 146/73 * Continue metoprolol, Benicar and monitor. 07/15 * no change to current treatment plan 07/18 - BP generally 130-140, trending higher this am, consider uptitration if trend continues. Plan Melissa Tom is a 73 year old female initially presenting with AMS found to have CVA and seizure with failed o/p management of c.diff/diverticulitis. Complicated hospital course with acute VTE of the lower ext, anemia requiring transfusions, most recent 2 units on 07/17/24. She has developed urinary retention and fitzpatrick has been in place. Completed tamiflu for influenza A yesterday - a focal infiltrate is now noted and patient less oriented. Abx for pna have been started today, 07/18/24. Subjective Date/time seen: 07/20/24 15:53 Interval history: Interval Hx: Patient is currently treated for CVA, seizures, C diff, diverticulitis, anemia, acute DVT, pneumonia, and urinary retention.On 07/18 Eliquis held overnight d/t needing two units prbc. Currently hgb is table so resuming Eliquis. 07/20:Patient reports she is not feeling well today.On 07/18 Kemar held overnight d/t needing two units prbc. Currently hgb is table so resuming Eliquis. Review of Systems Review of Systems: All systems reviewed & are unremarkable except as noted in HPI and below Constitutional: Constitutional: Reports no additional constitutional complaints Eyes: Eyes: Reports no additional eye complaints ENT: Reports system reviewed and no additional complaints, except as documented Cardiovascular: Cardiovascular: Reports no additional cardiovascular complaints Respiratory: Respiratory: Reports no additional respiratory complaints Gastrointestinal: Gastrointestinal: Reports no additional gastrointestinal complaints and Reports diarrhea Genitourinary: Genitourinary: Reports no additional female genitourinary complaints Musculoskeletal: Musculoskeletal: Reports no additional musculoskeletal complaints Integumentary/Breasts: Skin/Breast: Reports system reviewed and no additional complaints, except as docu and Reports as per HPI Neurologic: Reports system reviewed and no additional complaints, except as documented Psychiatric: Psychiatric: Reports no additional psychiatric complaints and Reports as per HPI Endocrine: Endocrine: Reports no additional endocrine complaints and Reports as per HPI Hematologic/Lymphatic: Hematologic/Lymphatic: Reports no additional hematologic/lymphatic complaints and Reports as per HPI Allergic/Immunologic: Allergic/Immunologic: Reports no additional allergic/immunologic complaints and Reports as per HPI Exam Narrative: GENERAL APPEARANCE: Appears to be in no acute distress. HEAD: normocephalic atraumatic EYES: EOMI. ENT: Hearing grossly intact, no nasal discharge NECK: Neck supple, trachea midline. CARDIAC: Normal S1/S2. Rhythm is regular. No murmurs, rubs, or gallops. No cyanosis or pallor. Extremities are warm and well perfused. LUNGS: Clear to auscultation without rales, rhonchi, wheezing. Breath sounds are bilaterally diminished.. Respirations even and unlabored. ABDOMEN: BS positive x 4 quadrants. Soft, nondistended, nontender. No guarding or rebound. MSK: No joint tenderness/swelling, fair strength in all extremities. PERIPHERAL VASCULAR: Peripheral pulses palpable. Normal perfusion, cap refill <2 seconds. No edema. NEURO: Follows commands. No focal deficits.Drowsy this am but oriented to self and situation. SKIN: [place] without lesions or eruptions. PSYCH: Stable, Const: General: cooperative, no acute distress, alert, awake and obese Nutritional Appearance: obese Orientation/consciousness: oriented to person, oriented to place and oriented to time [facility]: Head: normal to inspection and normocephalic Eyes: General: appearance normal, both eyes and all related structures Neck: Neck: normal visual inspection, full ROM and no lymphadenopathy Chest: Chest palpation & inspection: normal inspection of the chest Resp: Effort & Inspection: normal respiratory effort, able to speak in complete sentences and Actively coughing Auscultation: clear to auscultation bilaterally and diminished lung sounds bilateral in the lower lung forbes Cardio: Jugular venous distension: no JVD Palpation: normal PMI Rate: regular rate Rhythm: regular rhythm Heart sounds: S1 normal heart sound present and S2 normal heart sound present GI: Inspection: normal to inspection Auscultation: High-pitched bowel sounds present and Hyperactive bowel sounds present Rectal Exam: other (rect al tube in place, liquid stool noted) Other: rectal tube in place and draining liquid stool Urinary Catheter: Urinary Catheter: patent and draining and urine clear Skin: General skin exam: normal color and no rashes or lesions noted Neuro: General: oriented to person, oriented to place, oriented to time, tone normal and moves all extremities Extrem: General: normal to inspection and full ROM Psych: Appearance: grossly normal Mental Status: mental status grossly normal Speech and movement: Normal speech and movement present Objective Data Vital Signs Vital Signs: Vital Signs - 24 hr 07/19/24 21:11 07/19/24 22:30 07/20/24 06:00 Temperature 97.9 F 98.4 F Pulse Rate 97 97 84 Respiratory Rate 18 18 Blood Pressure 147/72 H 147/69 H Pulse Oximetry 96 97 07/20/24 14:00 Temperature 97.1 F L Pulse Rate 77 Respiratory Rate 14 Blood Pressure 148/73 H Pulse Oximetry 97 Intake/Output Intake/Output: Intake & Output 07/17/24 07/18/24 07/19/24 07/20/24 23:59 23:59 23:59 23:59 Intake Total 2015 1560 1570 680 Output Total 1199 1150 275 600 Balance 616 306 8623 80 Meds/Results Medications: Active Medications Generic Name Dose Route Start Last Admin Trade Name Freq PRN Reason Stop Dose Admin Acetaminophen 1,000 mg 07/11/24 16:52 07/18/24 14:06 Acetaminophen 500 Mg Tablet PO 1,000 mg Q6H PRN Administration Mild Pain (1-3) or Fever Albuterol/Ipratropium 3 ml 07/19/24 17:28 Ipratropium 0.5 Mg/Albuterol Sulfate 2.5 Mg Ampul.Neb 3 Ml INHALATION Q6HRT PRN Wheezing Alprazolam 1 mg 07/03/24 00:03 07/15/24 04:01 Alprazolam (*Crx) 0.5 Mg Tablet PO 1 mg QID PRN Administration anxiety Apixaban 5 mg 07/12/24 21:00 07/16/24 21:24 Apixaban 5 Mg Tablet PO 5 mg Q12HR SOLITARIO Administration Atorvastatin Calcium 80 mg 07/04/24 21:00 07/20/24 09:32 Atorvastatin 40 Mg Tablet PO 80 mg DAILY SOLITARIO Administration Calcium Carbonate 500 mg 07/14/24 08:00 07/20/24 09:32 Calcium Carbonate (Oscal) 500 Mg Tablet PO 500 mg BIDWM SOLITARIO Administration Cyanocobalamin 1,000 mcg 07/12/24 09:00 07/20/24 09:32 Cyanocobalamin 1,000 Mcg Tablet PO 1,000 mcg DAILY SOLITARIO Administration Ferrous Sulfate 325 mg 07/15/24 09:00 07/20/24 09:33 Ferrous Sulfate [address] PO 325 mg DAILY SOLITARIO Administration Folic Acid 1 mg 07/03/24 09:00 07/20/24 09:32 Folic Acid 1 Mg Tablet PO 1 mg DAILY SOLIT[facility] Administration Guaifenesin 1,200 mg 07/11/24 21:00 07/20/24 09:32 Guaifenesin 12 Hr 600 Mg Tabcr PO 1,200 mg Q12HR [facility]ITAR[facility] Administration Ceftriaxone Sodium 1 gm in 50 mls @ 100 mls/hr 07/18/24 11:00 07/20/24 10:58 Rocephin 1 Gm/Ns 50 Ml IVPB 100 mls/hr Q24H SOLITARIO Administration Azithromycin 500 mg in 250 mls @ 250 mls/hr 07/18/24 10:00 07/20/24 09:33 Zithromax IVPB 250 mls/hr Q24H [facility]IT[facility] Administration Levetiracetam 500 mg 07/03/24 12:30 07/20/24 09:32 Levetiracetam 500 Mg Tablet PO 500 mg Q12HR [facility]IT[facility] Administration Levothyroxine Sodium 75 mcg 07/03/24 06:30 07/20/24 05:41 Levothyroxine Sodium 75 Mcg Tablet PO 75 mcg DAILY@0630 SOLITARIO Administration Lidocaine 1 patch 07/12/24 09:00 07/20/24 09:39 Lidocaine 5% Patch TRANSDERM Not Given DAILY [facility] Lorazepam 1 mg 07/02/24 23:55 Lorazepam Inj (*Crx) 2 Mg/Ml Vial IV PUSH Q2H PRN Seizures Magnesium Oxide 400 mg 07/06/24 17:00 07/20/24 09:32 Magnesium Oxide 400 Mg Tablet PO 400 mg BID SOLITARIO Administration Metoprolol Tartrate 50 mg 07/03/24 09:00 07/20/24 09:33 Metoprolol Tartrate 50 Mg Tab PO 50 mg Q12HR SOLITARIO Administration Miscellaneous Information 1 each 07/19/24 00:01 Vancomycin 125 Mg Capsule Needs To Be Renewed Or It Will Automatically Discontinue. XX 08/18/24 00:00 CLARIFY SOLITARIO Montelukast Sodium 10 mg 07/03/24 00:15 07/19/24 21:11 Montelukast Sodium 10 Mg Tablet PO 10 mg HS SOLITAR[facility] Administration Olmesartan 40 mg 07/03/24 09:00 07/20/24 09:32 Olmesartan Medoxomil 20 Mg Tablet PO 40 mg DAILY [facility] Administration Pantoprazole Sodium 40 mg 07/09/24 12:35 07/20/24 09:32 Pantoprazole Sodium Iv 40 Mg Vial IV PUSH 40 mg Q12HR SOLITARIO Administration Sodium Bicarbonate 650 mg 07/16/24 17:00 07/20/24 12:03 Sodium Bicarbonate Tab 650 Mg Tablet PO 650 mg TID SOLITARIO Administration Sodium Chloride 20 ml 07/04/24 16:15 Central Line Flush IV PUSH PRN PRN after blood draws Sodium Chloride 10 ml 07/04/24 16:15 Central Line Flush IV PUSH PRN PRN with TPN bag changes Sodium Chloride 10 ml 07/04/24 22:00 07/20/24 14:36 Central Line Flush IV PUSH 10 ml Q8HR SOLITARIO Administration Tramadol HCl 100 mg 07/11/24 16:49 07/19/24 22:08 Tramadol Hcl (*Crx) 50 Mg Tablet PO 100 mg HS PRN Administration Pain Rated 4-6 (night) Tramadol HCl 50 mg 07/11/24 16:49 07/15/24 16:35 Tramadol Hcl (*Crx) 50 Mg Tablet PO 50 mg DAILY PRN Administration Pain Rated 4-6 (day) Trazodone HCl 100 mg 07/11/24 21:00 07/19/24 21:10 Trazodone Hcl 50 Mg Tablet PO 100 mg HS SOLITARIO Administration Radiology Results: ITS Impressions Head CT 07/02/24 14:34 IMPRESSION: 1. Normal aging brain. Abdomen/Pelvis CT 07/02/24 14:36 IMPRESSION: 1. Persistent small collection of extra luminal gas in the left lower quadrant anterior abdominal wall immediately adjacent to a region of inflammatory stranding surrounding the descending colon consistent with diverticulitis. No abscess or more remote free intraperineal gas or fluid. 2. Persistent moderate-sized bilateral posterior layering pleural effusions with dependent compressive atelectasis in the visualized lower lobes. Brain MRI 07/04/24 11:30 IMPRESSION: 1. 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 2. 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 3. Diffuse pachymeningeal enhancement. This finding is most commonly secondary to prior lumbar puncture or spine procedure. ADDENDUM: 07/04/24 1216 The contrast volume was 20 mL MultiHance. Venous Doppler Study 07/05/24 14:17 IMPRESSION: 1. Extensive deep vein thrombosis in right lower limb. I called this result to Elsy Tao. Chest X-Ray 07/17/24 18:28 IMPRESSION: 1. Airspace opacities at left lung base, consistent with atelectasis versus pneumonia. 2. Small left pleural effusion. Labs Labs: Laboratory Results - last 24 hr 07/20/24 07/20/24 07/20/24 05:48 08:04 11:09 WBC 5.8 RBC 3.11 L Hgb 9.4 L Hct 29.7 L MCV 95.5 MCH 30.2 MCHC 31.6 L RDW 21.4 H Plt Count 177 MPV 10.8 H Sodium 142 Potassium 3.2 L Chloride 112 H Carbon Dioxide 24 Anion Gap 6 BUN 17 Creatinine 1.07 H Estim Creat Clear Calc 47 Estimated GFR 50 L Glucose 67 POC Capillary Glucose 79 78 Calcium 7.5 L Total Bilirubin 0.8 AST 24 ALT 11 Alkaline Phosphatase 107 Total Protein 5.0 L Albumin 2.0 L 07/20/24 12:59 WBC RBC Hgb Hct MCV MCH MCHC RDW Plt Count MPV Sodium Potassium 3.5 Chloride Carbon Dioxide Anion Gap BUN Creatinine Estim Creat Clear Calc Estimated GFR Glucose POC Capillary Glucose Calcium Total Bilirubin AST ALT Alkaline Phosphatase Total Protein Albumin Quality VTE Prophylaxis VTE prophylaxis: pharmacologic ordered Hospitalist MIPS Advance Care Plan I have confirmed that the patient's Advanced Care Plan is present, code status is documented, or surrogate decision maker is listed in patient medical record.: Yes Medication Reconciliation I have utilized all available resources to obtain, update and review the patients current medications (includes all prescriptions, OTC, herbals, cannabis, and nutritional supplements).: Yes
[2024-07-20 16:41] LABS: Glucose Point of Care 63 mg/dl (65-105)
[2024-07-20] MEDS: VANCOMYCIN HCL 125 MG ORAL CAPSULE PO (17:02)
[2024-07-20] MEDS: GLUCOSE ORAL GEL 15 GM OF GLUCSE IN 37.5 GM TUBE PO (17:02)
[2024-07-20 17:37] LABS: Glucose Point of Care 81 mg/dl (65-105)
[2024-07-20] MEDS: traMADol HCL (*CRX) 50 MG TABLET 100 MG PO (20:48)
[2024-07-20 21:43] VITALS: PULSE 98
[2024-07-20] MEDS: APIXABAN 5 MG TABLET PO (21:46)
[2024-07-20] MEDS: MONTELUKAST SODIUM 10 MG TABLET PO (21:46)
[2024-07-20 22:00] VITALS: BP 135/72; PULSE 96; RESP 18; TEMP 36.6; O2SAT 97
[2024-07-20 22:05] LABS: Glucose Point of Care 81 mg/dl (65-105)
[2024-07-21] MEDS: VANCOMYCIN HCL 125 MG ORAL CAPSULE PO ×5 (00:21→23:35)
[2024-07-21 06:00] VITALS: BP 148/75; PULSE 87; RESP 18; TEMP 36.2; O2SAT 97
[2024-07-21] MEDS: LEVOTHYROXINE SODIUM 75 MCG TABLET PO (06:09)
[2024-07-21] MEDS: CENTRAL LINE FLUSH 10 ML IV PUSH ×3 (06:21→21:22)
[2024-07-21 06:42] LABS: Hematocrit 32.9 % (37.0-47.0); Hemoglobin 10.5 g/dL (12.0-15.0); Mean Corpuscular HGB Conc 31.9 g/dl (32-36); Mean Corpuscular Hemoglobin 30.9 pg (26-34); Mean Corpuscular Volume 96.8 fl (80-100); Mean Platelet Volume 10.9 fl (7.4-10.4); Platelet Count Result 208 k/mm3 (150-375); Red Cell Distribution Width 21.6 % (11.5-14.5); White Blood Count 9.7 K/mm3 (4.5-10.0)
[2024-07-21] MEDS: traMADol HCL (*CRX) 50 MG TABLET PO (06:48)
[2024-07-21 06:55] LABS: Alanine Aminotransferase 13 U/L (6-35); Albumin Level 2.3 g/dL (3.5-5.1); Alkaline Phosphatase 125 U/L (38-126); Anion Gap 7 mmol/L (4-12); Aspartate Amino Transferase 29 U/L (14-36); Bilirubin,Total 0.9 mg/dL (0.2-1.3); Blood Urea Nitrogen 18 mg/dL (7-17); Calcium 7.8 mg/dL (8.4-10.2); Carbon Dioxide 23 mmol/L (22-30); Chloride 113 mmol/L (98-107); Estimated CRCL calculation 49 ml/min; Estimated Glomerular Filt Rate 54; Glucose 89 mg/dL (65-110); Sodium 143 mmol/L (137-145)
[2024-07-21 08:04] LABS: Glucose Point of Care 93 mg/dl (65-105)
[2024-07-21] MEDS: ATORVASTATIN 40 MG TABLET 80 MG PO (09:45)
[2024-07-21] MEDS: SODIUM BICARBONATE TAB 650 MG TABLET PO ×3 (09:46→17:58)
[2024-07-21] MEDS: guaiFENesin 12 HR 600 MG TABCR 1200 MG PO ×2 (09:46→21:22)
[2024-07-21] MEDS: FERROUS SULFATE 325 MG TABLET DR PO (09:46)
[2024-07-21] MEDS: METOPROLOL TARTRATE 50 MG TAB PO ×2 (09:46→21:22)
[2024-07-21] MEDS: MAGNESIUM OXIDE 400 MG TABLET PO ×2 (09:46→17:58)
[2024-07-21] MEDS: APIXABAN 5 MG TABLET PO ×2 (09:46→21:22)
[2024-07-21] MEDS: levETIRAcetam 500 MG TABLET PO ×2 (09:46→21:21)
[2024-07-21] MEDS: FOLIC ACID 1 MG TABLET PO (09:46)
[2024-07-21] MEDS: OLMESARTAN MEDOXOMIL 20 MG TABLET 40 MG PO (09:46)
[2024-07-21] MEDS: CALCIUM CARBONATE (OSCAL) 500 MG TABLET PO ×2 (09:46→17:58)
[2024-07-21] MEDS: CYANOCOBALAMIN 1,000 MCG TABLET 1000 MCG PO (09:46)
[2024-07-21] MEDS: PANTOPRAZOLE SODIUM IV 40 MG VIAL IV PUSH ×2 (09:47→21:22)
[2024-07-21] MEDS: AZITHROMYCIN 500 MG/NS 250 ML 500 MG/250 ML BAG 250 MG IVPB (11:01)
[2024-07-21 11:54] LABS: Glucose Point of Care 99 mg/dl (65-105)
[2024-07-21 14:00] VITALS: BP 135/65; PULSE 90; RESP 18; TEMP 36.4; O2SAT 95
--- NOTE | 2024-07-21 14:02 | P.PNIM_ITS ---
Progress Note: A&P Assessment and Plan (1) CVA (cerebral vascular accident): Code(s): I63.9 - Cerebral infarction, unspecified Status: Acute Assessment and Plan: 07/11/24: * MRA of brain showing acute infarct in the left frontoparietal lobe in the deep white matter * Left lower extremity weakness * PT and OT ordered * Continue atorvastatin, Plavix * Aspirin currently on hold as she is on Eliquis for DVT prophylaxis * A Neurology following 07/15 * continue Eliquis * neurology following 07/16 * No change 07/20 - Stable. On atorvastatin. Asa/plavix previously held. Apixaban resumed. (2) Seizure: Code(s): R56.9 - Unspecified convulsions Status: Acute Assessment and Plan: 07/11 * New onset * CT of the head was negative * MRI showing acute infarct in the left frontoparietal lobe in deep white matter * EEG findings abnormal read, cannot rule out seizure activity * Continue atorvastatin, Plavix * Will hold baby aspirin considering patient is on Eliquis * Continue Keppra * Continue seizure precautions * Cardiac telemetry stable, we will go ahead and discontinue continuous telemetry * Move out of IMU to regular med surge floor 07/15 * continue neuro checks * continue seizure precautions * continue Keppra, atorvastatin, Plavix * neurology following 07/16 * no change 07/18-07/20 - No new seizure activity. - Cont. keppra at 500mg bid. (3) C. difficile diarrhea: Code(s): A04.72 - Enterocolitis due to Clostridium difficile, not specified as recurrent Status: Acute Assessment and Plan: 07/11/24 * Continue vancomycin pulse dosing * Pulse taper vanc dose as follows: 125 mg orally 4 times daily for 10 to 14 days, then 125 mg orally twice daily for 7 days, then 125 mg orally once daily for 7 days, then 125 mg orally every 2 to 3 days for 2 to 8 weeks 07/15 * no change to current treatment plan 07/18 - Cont. current pulse/taper. Orders are in. 07/20: restarted Oral Vancomycin 07/21: patient completed 2 courses of fidaxomicin and Tapering dose of oral Vancomycin. Consulted GI for fecal microbiota transplantation (4) Diverticulitis of intestine with perforation without abscess: Qualifiers: Diverticulitis bleeding: without bleeding Diverticulitis site: large intestine Qualified Code(s): K57.20 - Diverticulitis of large intestine with perforation and abscess without bleeding Code(s): K57.80 - Diverticulitis of intestine, part unspecified, with perforation and abscess without bleeding Status: Acute Assessment and Plan: 07/11/24 * Failed Dificid * Continue oral vancomycin 07/15 * continue oral vancomycin 07/16 * No change 07/18 - Stable, completing oral vancomycin pulse/taper. 07/20: completed oral vancomycin (5) Anemia: Qualifiers: Anemia type: due to chronic kidney disease Chronic kidney disease stage: unspecified stage Qualified Code(s): N18.9 - Chronic kidney disease, unspecified; D63.1 - Anemia in chronic kidney disease Code(s): D64.9 - Anemia, unspecified Status: Acute Assessment and Plan: 07/11/24 * Continue to transfuse for hemoglobin less than 7 * Patient receive 1 unit of blood this admission * Currently on Eliquis, Plavix * Will hold aspirin * Continue to trend 07/15 * hemoglobin 7.5 * no change to current treatment plan 07/18 - S/P 2 units prbc overnight with improvement noted on overnight labs. - Resume anticoag. - GI had been consulted, not able to perform colonoscopy currently with diverticulitis, patient had previously refused as well. (6) Acute DVT (deep venous thrombosis): Code(s): I82.409 - Acute embolism and thrombosis of unspecified deep veins of unspecified lower extremity Status: Acute Assessment and Plan: 07/11/24 * Venous Doppler showing extensive right lower extremity DVT * Patient was started on Lovenox and then switched to heparin infusion on 07/09/2024. She later developed dark tarry stools and a drop in her hemoglobin requiring blood transfusion. Heparin drip was placed on hold for 24 hours and then she was restarted on Eliquis 10 mg daily x7 days--standard protocol * General surgery was consulted for IVC filter however she is not a candidate at this time due to her other comorbidities * Continue Eliquis as stated above 07/15 * continue Eliquis 07/16 * No change 07/18 - Eliquis held overnight d/t needing two units prbc. - Stable hgb resuming eliquis. 07/20: Resumed Eliquis. Will monitor H and H (7) Occult blood in stools: Code(s): R19.5 - Other fecal abnormalities Status: Acute Assessment and Plan: 07/11/24 * Patient was occult blood positive on 07/09/2024 * She was given 1 unit of blood * H&H is stable * GI recommending outpatient colonoscopy considering her comorbidities * Recently diagnosed with diverticulitis and C diff colitis 07/15 * hemoglobin 7.5 * continue to trend 07/16 * No change 07/18 - Transfused two units prbc overnight with appropriate rise in hgb on repeat labs overnight. - Apixaban will resume. (8) Delirium: Code(s): R41.0 - Disorientation, unspecified Status: Acute Assessment and Plan: 07/15 * more confused today * continue neuro checks * encourage good sleep hygiene 07/16 * continue neuro checks * currently alert and oriented x3 07/18 - Drowsy this am but rousable and and answers questions. Improved later in the am. No focal deficits. - Cont. to monitor closely for developing infection - post influenza pna, UTI, etc. Check urine this am, pending. - Treating for pna. (9) Pneumonia: Code(s): J18.9 - Pneumonia, unspecified organism Status: Acute Assessment and Plan: 07/18 - Slightly less oriented than reported from day prior this morning, improving in the late morning, cxr shows infiltrate. Plan to start ceftriaxone/zithromycin today day 1. (10) Upper respiratory infection: Code(s): J06.9 - Acute upper respiratory infection, unspecified Status: Acute Assessment and Plan: 07/11/24 * Patient reported cold-like symptoms with a nonproductive cough and wheezing * Will check for influenza a and B, RSV, COVID * Start DuoNebs q.6 hour * Will obtain chest x-ray * Incentive spirometry while awake * Pep therapy with cornet flutter valve 07/15 * no change to current treatment plan 07/17 * Chest x-ray ordered * Still coarse rhonchi * Patient finished course Tamiflu for influenza a * Continue incentive spirometry and pep therapy 07/18 - Completed tamiflu, breathing easily. Lungs diminished bilaterally with slightly coarse rales in the right. (11) Urinary retention: Code(s): R33.9 - Retention of urine, unspecified Status: Acute Assessment and Plan: 07/11/24: * Patient had acute urinary retention requiring Fitzpatrick on 07/03/24 * Urology was consulted * Patient failed voiding trial * Patient will keep catheter and repeat voiding trial in 1-2 weeks on an outpatient basis with Urology 07/15 * no change to current treatment plan 07/18 - Catheter in place, consider trial of voiding 07/25 at the two week kelly. (12) Hypokalemia: Code(s): E87.6 - Hypokalemia Status: Acute Assessment and Plan: 07/11/24: * Potassium 4.3 * No need for replacement * Resolved 07/15 * potassium 3.5 * no replacement needed 07/16 * potassium 3.7 * no replacement needed (13) Hypothyroidism: Qualifiers: Hypothyroidism type: unspecified Qualified Code(s): E03.9 - Hypothyroidism, unspecified Code(s): E03.9 - Hypothyroidism, unspecified Status: Chronic Assessment and Plan: 07/11/24 * Continue Synthroid 07/15 * no change to current treatment plan 07/18 - Cont. current. (14) Hypertension: Qualifiers: Hypertension type: primary hypertension Qualified Code(s): I10 - Essential (primary) hypertension Code(s): I10 - Essential (primary) hypertension Status: Chronic Assessment and Plan: -Blood pressure ranging 105/ 81 to 146/73 - Continue metoprolol, Benicar and monitor. -no change to current treatment plan -BP generally 130-140, trending higher this am, consider uptitration if trend continues. Plan Melissa Tom is a 73 year old female initially presenting with AMS found to have CVA and seizure with failed o/p management of c.diff/diverticulitis. Complicated hospital course with acute VTE of the lower ext, anemia requiring transfusions, most recent 2 units on 07/17/24. She has developed urinary retention and fitzpatrick has been in place. Completed tamiflu for influenza A yesterday - a focal infiltrate is now noted and patient less oriented. Abx for pna have been started today, 07/18/24. Subjective Date/time seen: 07/21/24 14:02 Interval history: Interval Hx: Patient is currently treated for CVA, seizures, C diff, diverticulitis, anemia, acute DVT, pneumonia, and urinary retention.On 07/18 E liquis held overnight d/t needing two units prbc. Currently hgb is table so resuming Eliquis 07/21:Patient continues to have diarrhea. Continue oral vancomycin. Review of Systems Review of Systems: All systems reviewed & are unremarkable except as noted in HPI and below Constitutional: Constitutional: Reports no additional constitutional complaints Eyes: Eyes: Reports no additional eye complaints ENT: Reports system reviewed and no additional complaints, except as documented Cardiovascular: Cardiovascular: Reports no additional cardiovascular complaints Respiratory: Respiratory: Reports no additional respiratory complaints Gastrointestinal: Gastrointestinal: Reports no additional gastrointestinal complaints and Reports diarrhea Genitourinary: Genitourinary: Reports no additional female genitourinary complaints Musculoskeletal: Musculoskeletal: Reports no additional musculoskeletal complaints Integumentary/Breasts: Skin/Breast: Reports system reviewed and no additional complaints, except as docu and Reports as per HPI Neurologic: Reports system reviewed and no additional complaints, except as documented Psychiatric: Psychiatric: Reports no additional psychiatric complaints and Reports as per HPI Endocrine: Endocrine: Reports no additional endocrine complaints and Reports as per HPI Hematologic/Lymphatic: Hematologic/Lymphatic: Reports no additional hematologic/lymphatic complaints and Reports as per HPI Allergic/Immunologic: Allergic/Immunologic: Reports no additional allergic/immunologic complaints and Reports as per HPI Exam Narrative: GENERAL APPEARANCE: Appears to be in no acute distress. HEAD: normocephalic atraumatic EYES: EOMI. ENT: Hearing grossly intact, no nasal discharge NECK: Neck supple, trachea midline. CARDIAC: Normal S1/S2. Rhythm is regular. No murmurs, rubs, or gallops. No cyanosis or pallor. Extremities are warm and well perfused. LUNGS: Clear to auscultation without rales, rhonchi, wheezing. Breath sounds are bilaterally diminished.. Respirations even and unlabored. ABDOMEN: BS positive x 4 quadrants. Soft, nondistended, nontender. No guarding or rebound. MSK: No joint tenderness/swelling, fair strength in all extremities. PERIPHERAL VASCULAR: Peripheral pulses palpable. Normal perfusion, cap refill <2 seconds. No edema. NEURO: Follows commands. No focal deficits.Drowsy this am but oriented to self and situation. SKIN: [employer] without lesions or eruptions. PSYCH: Stable, Const: General: cooperative, no acute distress, alert, awake and obese Nutritional Appearance: obese Orientation/consciousness: oriented to person, oriented to place and oriented to time HENMT: Head: normal to inspection and normocephalic Eyes: General: appearance normal, both eyes and all related structures Neck: Neck: normal visual inspection, full ROM and no lymphadenopathy Chest: Chest palpation & inspection: normal inspection of the chest Resp: Effort & Inspection: normal respiratory effort, able to speak in complete sentences and Actively coughing Auscultation: clear to auscultation bilaterally and diminished lung sounds bilateral in the lower lung forbes Cardio: Jugular venous distension: no JVD Palpation: normal PMI Rate: regular rate Rhythm: regular rhythm Heart sounds: S1 normal heart sound present and S2 normal heart sound present GI: Inspection: normal to inspection Auscultation: High-pitched bowel sounds present and Hyperactive bowel sounds present Rectal Exam: other (rectal tube in place, liquid stool noted) Other: rectal tube in place and draining liquid stool Urinary Catheter: Urinary Catheter: patent and draining and urine clear Skin: General skin exam: normal color and no rashes or lesions noted Neuro: General: oriented to person, oriented to place, oriented to time, tone normal and moves all extremities Extrem: General: normal to inspection and full ROM Psych: Appearance: grossly normal Mental Status: mental status grossly normal Speech and movement: Normal speech and movement present Objective Data Vital Signs Vital Signs: Vital Signs - 24 hr 07/20/24 21:43 07/20/24 22:00 07/21/24 06:00 Temperature 98 F 97.2 F L Pulse Rate 98 96 87 Respiratory Rate 18 18 Blood Pressure 135/72 148/75 H Pulse Oximetry 97 97 Oxygen Delivery 07/21/24 08:00 Temperature Pulse Rate Respiratory Rate Blood Pressure Pulse Oximetry Oxygen Delivery Room Air Intake/Output Intake/Output: Intake & Output 07/18/24 07/19/24 07/20/24 07/21/24 23:59 23:59 23:59 23:59 Intake Total 1560 1570 1130 439 Output Total 1150 275 850 200 Balance 410 1295 280 239 Meds/Results Medications: Active Medications Generic Name Dose Route Start Last Admin Trade Name Freq PRN Reason Stop Dose Admin Acetaminophen 1,000 mg 07/11/24 16:52 07/18/24 14:06 Acetaminophen 500 Mg Tablet PO 1,000 mg Q6H PRN Administration Mild Pain (1-3) or Fever Albuterol/Ipratropium 3 ml 07/19/24 17:28 Ipratropium 0.5 Mg/Albuterol Sulfate 2.5 Mg Ampul.Neb 3 Ml INHALATION Q6HRT PRN Wheezing Alprazolam 1 mg 07/03/24 00:03 07/15/24 04:01 Alprazolam (*Crx) 0.5 Mg Tablet PO 1 mg QID PRN Administration anxiety Apixaban 5 mg 07/12/24 21:00 07/21/24 09:46 Apixaban 5 Mg Tablet PO 5 mg Q12HR SOLITARIO Administration Atorvastatin Calcium 80 mg 07/04/24 21:00 07/21/24 09:45 Atorvastatin 40 Mg Tablet PO 80 mg DAILY SOLIT[facility] Administration Calcium Carbonate 500 mg 07/14/24 08:00 07/21/24 09:46 Calcium Carbonate (Oscal) 500 Mg Tablet PO 500 mg BIDWM SOLITARIO Administration Cyanocobalamin 1,000 mcg 07/12/24 09:00 07/21/24 09:46 Cyanocobalamin 1,000 Mcg Tablet PO 1,000 mcg DAILY SOLITARIO Administration Dextrose 12.5 gm 07/20/24 16:44 Dextrose 50% 25 Gm/50 Ml Syringe IV PUSH PRN PRN Hypoglycemia Protocol Ferrous Sulfate 325 mg 07/15/24 09:00 07/21/24 09:46 Ferrous Sulfate [address] PO 325 mg DAILY SOLITARIO Administration Folic Acid 1 mg 07/03/24 09:00 07/21/24 09:46 Folic Acid 1 Mg Tablet PO 1 mg DAILY [facility] Administration Glucagon 1 mg 07/20/24 16:44 Glucagon For Inj 1 Mg Vial IM PRN PRN Hypoglycemia Protocol Glucose 15 gm 07/20/24 16:44 07/20/24 17:02 Glucose Oral Gel 15 Gm Of Glucse In 37.5 Gm Tube PO 15 gm PRN PRN Administration Hypoglycemia Protocol Guaifenesin 1,200 mg 07/11/24 21:00 07/21/24 09:46 Guaifenesin 12 Hr 600 Mg Tabcr PO 1,200 mg Q12HR SOLITARIO Administration Ceftriaxone Sodium 1 gm in 50 mls @ 100 mls/hr 07/18/24 11:00 07/21/24 11:00 Rocephin 1 Gm/Ns 50 Ml IVPB 100 mls/hr Q24H [facility]IT[facility] Administration Azithromycin 500 mg in 250 mls @ 250 mls/hr 07/18/24 10:00 07/21/24 11:01 Zithromax IVPB 250 mls/hr Q24H [facility] Administration Dextrose 1,000 mls @ 100 mls/hr 07/20/24 16:44 Dextrose 5% 1,000 Ml IVPB PRN PRN Hypoglycemia Protocol Levetiracetam 500 mg 07/03/24 12:30 07/21/24 09:46 Levetiracetam 500 Mg Tablet PO 500 mg Q12HR [facility] Administration Levothyroxine Sodium 75 mcg 07/03/24 06:30 07/21/24 06:09 Levothyroxine Sodium 75 Mcg Tablet PO 75 mcg DAILY@0630 [facility]ITAR[facility] Administration Lidocaine 1 patch 07/12/24 09:00 07/21/24 09:47 Lidocaine 5% Patch TRANSDERM Not Given DAILY [facility] Lorazepam 1 mg 07/02/24 23:55 Lorazepam Inj (*Crx) 2 Mg/Ml Vial IV PUSH Q2H PRN Seizures Magnesium Oxide 400 mg 07/06/24 17:00 07/21/24 09:46 Magnesium Oxide 400 Mg Tablet PO 400 mg BID [facility] Administration Metoprolol Tartrate 50 mg 07/03/24 09:00 07/21/24 09:46 Metoprolol Tartrate 50 Mg Tab PO 50 mg Q12HR [facility] Administration Miscellaneous Information 1 each 07/19/24 00:01 Vancomycin 125 Mg Capsule Needs To Be Renewed Or It Will Automatically Discontinue. XX 08/18/24 00:00 [facility] Miscellaneous Information 1 each 07/20/24 00:01 Tramadol Needs To Be Renewed Or It Will Automatically Discontinue. XX 08/19/24 00:00 [facility] Montelukast Sodium 10 mg 07/03/24 00:15 07/20/24 21:46 Montelukast Sodium 10 Mg Tablet PO 10 mg HS [facility]IT[facility] Administration Olmesartan 40 mg 07/03/24 09:00 07/21/24 09:46 Olmesartan Medoxomil 20 Mg Tablet PO 40 mg DAILY [facility] Administration Pantoprazole Sodium 40 mg 07/09/24 12:35 07/21/24 09:47 Pantoprazole Sodium Iv 40 Mg Vial IV PUSH 40 mg Q12HR [facility]IT[facility] Administration Sodium Bicarbonate 650 mg 07/16/24 17:00 07/21/24 13:34 Sodium Bicarbonate Tab 650 Mg Tablet PO 650 mg TID [facility] Administration Sodium Chloride 20 ml 07/04/24 16:15 Central Line Flush IV PUSH PRN PRN after blood draws Sodium Chloride 10 ml 07/04/24 16:15 Central Line Flush IV PUSH PRN PRN with TPN bag changes Sodium Chloride 10 ml 07/04/24 22:00 07/21/24 13:34 Central Line Flush IV PUSH 10 ml Q8HR [facility]IT[facility] Administration Tramadol HCl 100 mg 07/11/24 16:49 07/20/24 20:48 Tramadol Hcl (*Crx) 50 Mg Tablet PO 100 mg HS PRN Administration Pain Rated 4-6 (night) Tramadol HCl 50 mg 07/11/24 16:49 07/21/24 06:48 Tramadol Hcl (*Crx) 50 Mg Tablet PO 50 mg DAILY PRN Administration Pain Rated 4-6 (day) Trazodone HCl 100 mg 07/11/24 21:00 07/21/24 04:34 Trazodone Hcl 50 Mg Tablet PO Not Given HS [facility]IT[facility] Vancomycin HCl 125 mg 07/20/24 18:00 07/21/24 13:34 Vancomycin Hcl 125 Mg Oral Capsule PO 07/30/24 17:59 125 mg Q6HR SOLITARIO Administration Radiology Results: ITS Impressions Head CT 07/02/24 14:34 IMPRESSION: 1. Normal aging brain. Abdomen/Pelvis CT 07/02/24 14:36 IMPRESSION: 1. Persistent small collection of extra luminal gas in the left lower quadrant anterior abdominal wall immediately adjacent to a region of inflammatory stranding surrounding the descending colon consistent with diverticulitis. No abscess or more remote free intraperineal gas or fluid. 2. Persistent moderate-sized bilateral posterior layering pleural effusions with dependent compressive atelectasis in the visualized lower lobes. Brain MRI 07/04/24 11:30 IMPRESSION: 1. 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 2. 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 3. Diffuse pachymeningeal enhancement. This finding is most commonly secondary to prior lumbar puncture or spine procedure. ADDENDUM: 07/04/24 1216 The contrast volume was 20 mL MultiHance. Venous Doppler Study 07/05/24 14:17 IMPRESSION: 1. Extensive deep vein thrombosis in right lower limb. I called this result to Elsy Tao. Chest X-Ray 07/17/24 18:28 IMPRESSION: 1. Airspace opacities at left lung base, consistent with atelectasis versus pneumonia. 2. Small left pleural effusion. Labs Labs: Laboratory Results - last 24 hr 07/20/24 07/20/24 07/20/24 16:34 17:27 20:56 WBC RBC Hgb Hct MCV MCH MCHC RDW Plt Count MPV Sodium Potassium Chloride Carbon Dioxide Anion Gap BUN Creatinine Estim Creat Clear Calc Estimated GFR Glucose POC Capillary Glucose 63 L 81 81 Calcium Total Bilirubin AST ALT Alkaline Phosphatase Total Protein Albumin 07/21/24 07/21/24 07/21/24 06:20 08:01 11:50 WBC 9.7 RBC 3.40 L Hgb 10.5 L Hct 32.9 L MCV 96.8 MCH 30.9 MCHC 31.9 L RDW 21.6 H Plt Count 208 MPV 10.9 H Sodium 143 Potassium 4.0 Chloride 113 H Carbon Dioxide 23 Anion Gap 7 BUN 18 H Creatinine 1.01 H Estim Creat Clear Calc 49 Estimated GFR 54 L Glucose 89 POC Capillary Glucose 93 99 Calcium 7.8 L Total Bilirubin 0.9 AST 29 ALT 13 Alkaline Phosphatase 125 Total Protein 5.0 L Albumin 2.3 L Quality VTE Prophylaxis VTE prophylaxis: pharmacologic ordered Hospitalist MIPS Advance Care Plan I have confirmed that the patient's Advanced Care Plan is present, code status is documented, or surrogate decision maker is listed in patient medical record.: Yes Medication Reconciliation I have utilized all available resources to obtain, update and review the patients current medications (includes all prescriptions, OTC, herbals, cannabis, and nutritional supplements).: Yes
[2024-07-21 16:42] LABS: Glucose Point of Care 96 mg/dl (65-105)
[2024-07-21 20:00] VITALS: PULSE 94; RESP 18; O2SAT 95
[2024-07-21 20:35] LABS: Glucose Point of Care 86 mg/dl (65-105)
[2024-07-21] MEDS: MONTELUKAST SODIUM 10 MG TABLET PO (21:21)
[2024-07-21 21:22] VITALS: PULSE 94
[2024-07-21 22:00] VITALS: BP 144/83; PULSE 94; RESP 17; TEMP 36.3; O2SAT 95
[2024-07-22 05:16] LABS: Hematocrit 33.5 % (37.0-47.0); Hemoglobin 10.4 g/dL (12.0-15.0); Mean Corpuscular Hemoglobin 30.1 pg (26-34); Mean Corpuscular Volume 96.8 fl (80-100); Platelet Count Result 195 k/mm3 (150-375); Red Blood Count 3.46 M/mm3 (4.2-5.4); Red Cell Distribution Width 20.9 % (11.5-14.5)
[2024-07-22] MEDS: VANCOMYCIN HCL 125 MG ORAL CAPSULE PO ×4 (05:18→23:40)
[2024-07-22] MEDS: LEVOTHYROXINE SODIUM 75 MCG TABLET PO (05:18)
[2024-07-22] MEDS: CENTRAL LINE FLUSH 20 ML IV PUSH (05:19)
[2024-07-22] MEDS: CENTRAL LINE FLUSH 10 ML IV PUSH ×3 (05:19→21:04)
[2024-07-22 05:32] LABS: Alanine Aminotransferase 16 U/L (6-35); Albumin Level 2.2 g/dL (3.5-5.1); Alkaline Phosphatase 136 U/L (38-126); Anion Gap 8 mmol/L (4-12); Aspartate Amino Transferase 35 U/L (14-36); Bilirubin,Total 0.8 mg/dL (0.2-1.3); Blood Urea Nitrogen 18 mg/dL (7-17); Carbon Dioxide 23 mmol/L (22-30); Chloride 113 mmol/L (98-107); Estimated CRCL calculation 52 ml/min; Estimated Glomerular Filt Rate 57; Glucose 86 mg/dL (65-110); Sodium 144 mmol/L (137-145)
[2024-07-22 06:00] VITALS: BP 140/75; PULSE 93; RESP 16; TEMP 36.2; O2SAT 98
[2024-07-22 08:00] VITALS: PULSE 93; RESP 16; O2SAT 98
[2024-07-22 08:13] LABS: Glucose Point of Care 86 mg/dl (65-105)
[2024-07-22] MEDS: MAGNESIUM OXIDE 400 MG TABLET PO ×2 (08:59→17:17)
[2024-07-22] MEDS: CALCIUM CARBONATE (OSCAL) 500 MG TABLET PO ×2 (08:59→17:17)
[2024-07-22] MEDS: FERROUS SULFATE 325 MG TABLET DR PO (08:59)
[2024-07-22] MEDS: levETIRAcetam 500 MG TABLET PO ×2 (08:59→21:03)
[2024-07-22] MEDS: METOPROLOL TARTRATE 50 MG TAB PO ×2 (08:59→21:03)
[2024-07-22] MEDS: OLMESARTAN MEDOXOMIL 20 MG TABLET 40 MG PO (09:00)
[2024-07-22] MEDS: SODIUM BICARBONATE TAB 650 MG TABLET PO ×3 (09:00→17:17)
[2024-07-22] MEDS: ATORVASTATIN 40 MG TABLET 80 MG PO (09:00)
[2024-07-22] MEDS: CYANOCOBALAMIN 1,000 MCG TABLET 1000 MCG PO (09:00)
[2024-07-22] MEDS: guaiFENesin 12 HR 600 MG TABCR 1200 MG PO ×2 (09:00→21:03)
[2024-07-22] MEDS: FOLIC ACID 1 MG TABLET PO (09:00)
[2024-07-22] MEDS: APIXABAN 5 MG TABLET PO ×2 (09:00→21:03)
[2024-07-22] MEDS: PANTOPRAZOLE SODIUM IV 40 MG VIAL IV PUSH ×2 (09:01→21:03)
[2024-07-22] MEDS: AZITHROMYCIN 500 MG/NS 250 ML 500 MG/250 ML BAG 250 MG IVPB (09:01)
--- NOTE | 2024-07-22 11:44 | PCNFU ---
Nutrition Follow-Up Complete: Altered GI function related to C.diff as evidenced by liquid stool Goal:PO intake greater than 50%- Slowly progressing. Intakes 0-50%. Refusing some meals stil Semi-liquid stools continue Pt current nutrition is Heart healthy diet. Enlive BID (350 kcal, 20 g protein). Banatrol TID for stool bulk. Nutrition recommendation: Continue current nutrition care plan and orders. Encourage PO intake Last recorded weight is 94.2 kg. Bowel Motility: +BM 07/20. Semi liquid stool per FMS Labs Reviewed: Hgb 10.4, Hct 33.5, BUN 18 Skin: No pressure injuries noted Additional Notes: Intakes are still poor. Stool is less frequent. Continue current orders. Encourage po intake. Agree with orders Monitor intake, wt, labs, stool output. Follow up in 5 days.
[2024-07-22 11:53] LABS: Glucose Point of Care 93 mg/dl (65-105)
--- NOTE | 2024-07-22 12:53 | P.CONGI_ITS ---
<Statement entered by Morales Collins MD - 07/22/24 16:47> I, Morales Collins MD, have provided a substantive portion of the care of this patient and discussed the patient with my Nurse Practitioner. I have reviewed any new relevant radiographic and laboratory results including medications. I agree with her documentation as noted below.?I personally performed the medical decision making and much of the history and exam for this encounter. briefly, she has been in the hospital for several days initially with altered mental status and diagnosed with CVA, also had seizures. She has recurrent C diff, treated previously with dificid and now with vancomycin taper. Plan is to complete taper, use probiotics and then she can follow-up in office as soon as she is done with treatment and start Vowst etelvina in order to prevent more episodes (we do not do fecal transplant in our institution) Assessment and Plan Assessment and plan (1) Diarrhea: Qualifiers: Diarrhea type: presumed infectious Qualified Code(s): R19.7 - Diarrhea, unspecified <Yissel Rutherford APRN - Last Filed: 07/22/24 15:37> Code(s): R19.7 - Diarrhea, unspecified <Yissel Rutherford DIRECTOR OF REGULATORY AFFAIRS - Last Filed: 07/22/24 15:37> Status: Acute <Yissel Rutherford APRN - Last Filed: 07/22/24 15:37> (2) Occult blood in stools: Code(s): R19.5 - Other fecal abnormalities <Yissel Rutherford APRN - Last Filed: 07/22/24 15:37> Status: Acute <Yissel Rutherford APRN - Last Filed: 07/22/24 15:37> (3) C. difficile colitis: Onset Date: 2021 <Yissel Rutherford APRN - Last Filed: 07/22/24 15:37> Code(s): A04.72 - Enterocolitis due to Clostridium difficile, not specified as recurrent <Yissel Rutherford APRN - Last Filed: 07/22/24 15:37> Status: Acute <Yissel Rutherford APRN - Last Filed: 07/22/24 15:37> (4) Weight loss: Code(s): R63.4 - Abnormal weight loss <Yissel Rutherford APRN - Last Filed: 07/22/24 15:37> Status: Acute <Yissel Rutherford DIRECTOR OF REGULATORY AFFAIRS - Last Filed: 07/22/24 15:37> (5) Nausea and vomiting: Qualifiers: Vomiting type: bilious vomiting Qualified Code(s): R11.14 - Bilious vomiting <Yissel Rutherford DIRECTOR OF REGULATORY AFFAIRS - Last Filed: 07/22/24 15:37> Code(s): R11.2 - Nausea with vomiting, unspecified <Yissel Rutherford, DIRECTOR OF REGULATORY AFFAIRS - Last Filed: 07/22/24 15:37> Status: Acute <Yissel Rutherford, DIRECTOR OF REGULATORY AFFAIRS - Last Filed: 07/22/24 15:37> (6) Acute on chronic anemia: Code(s): D64.9 - Anemia, unspecified <Yissel Rutherford DIRECTOR OF REGULATORY AFFAIRS - Last Filed: 07/22/24 15:37> Status: Acute <Yissel Rutherford DIRECTOR OF REGULATORY AFFAIRS - Last Filed: 07/22/24 15:37> (7) Dysphagia: Qualifiers: Dysphagia type: esophageal phase Qualified Code(s): R13.19 - Other dysphagia Marychuy Rutherford, DIRECTOR OF REGULATORY AFFAIRS - Last Filed: 07/22/24 15:37> Code(s): R13.10 - Dysphagia, unspecified <Yissel Rutherford, DIRECTOR OF REGULATORY AFFAIRS - Last Filed: 07/22/24 15:37> Status: Acute <Yissel Rutherford DIRECTOR OF REGULATORY AFFAIRS - Last Filed: 07/22/24 15:37> Assessment and Plan: 1. Diarrhea/C-Diff/weight loss/heme positive stools: Per patient last colonoscopy >10 years ago. She tested positive For C diff in November of 2021. recent stool studies performed 06/21/2024 showed C diff positive. Patient was previously treated with Dificid which according to records she failed treatment. she is currently on a vancomycin taper 125 mg orally 4 times daily for 10 to 14 days, 125 mg orally twice daily for 7 days, 125 mg orally once daily for 7 days, then 125 mg orally every 2 to 3 days for 2 to 8 weeks. Patient states that she has been experiencing diarrhea for a few years but was worse recently but she was unable to provide any further details regarding bowel frequency. She states that over the past few months she has lost 30 lb without trying, current weight 209 lb. GI was consulted for recurrent C diff in consideration for fecal transplant but that service is not provided at this facility. Patient is on Eliquis. * Continue Vanco taper and complete whole course * start Florastor twice daily * Consider referral to tertiary center that has infectious disease services available * Will arrange for patient to start Vowst immediately after completing her antibiotic course and a clean out * Patient will need to follow up in the office in a few weeks after hospital discharge so that we can get the medication for the patient and make sure there is a plan in place for proper timing of Vowst administration * Will discuss colonoscopy as outpatient once infection has cleared * primary care team to continue supportive care and monitor hydration and electrolytes 2. Dysphagia/nausea/vomiting: Last EGD with dilation 05/15/2024 revealed a small hiatal hernia but no findings to explain symptoms. Following her EGD esophageal manometry was recommended to rule out achalasia but this was not arranged. Patient states that for the past 2 months she has been having postprandial nausea and vomiting. She is still having intermittent swallowing difficulty with solids, liquids, and pills. * esophagram ordered, if workup is unremarkable and symptoms persist we can arrange an esophageal manometry or endo flip as outpatient * continue supportive care with antiemetics 3. Anemia of chronic disease: patient with anemia of chronic disease. Labs 07/22/2024 showed HGB 10, HCT 45, MCV 97 and platelets 195. No signs of active GI bleeding. * Will further discuss colonoscopy as outpatient * primary care team to continue monitoring H&H and transfuse as needed to keep HGB > 7 Thank you very much for allowing me to share in the care of this very nice patient. This report may have been done utilizing a voice recognition system. Attempts have been made to correct errors. However, there may be uncorrected grammatical, spelling, and recognition errors present. <Yissel Rutherford APRN - Last Filed: 07/22/24 15:37> GI Consult Note Consult date/time: 07/22/24 12:53 <Yissel Rutherford APRN - Last Filed: 07/22/24 15:37> Reason for consult: Recurrent C-Diff <Yissel Luz PAOLA Rutherford - Last Filed: 07/22/24 15:37> HPI: Melissa Tom is a 73 year old female with PMSH of CVA, seizures, COPD, CKD, hypothyroidism, appendectomy, partial hysterectomy, and cholecystectomy. Patient presented to the emergency room 07/02/2024 from [facility] for altered mental status and was admitted for acute UTI, seizures and sepsis. GI has been consulted for recurrent C diff. Patient with a long complicated hospital admission, originally admitted in July 03. Patient admits to post prandial nausea and vomiting x 2 months. She states that she has also lost 30 lbs over the past few months but this could not be verified. Patient is having intermittent dysphagia with solid foods, pills and liquids. She previously had an EGD for dysphagia in April and she was noted to have a small hiatal hernia but no other findings to explain her symptoms so pH impedance and esophageal manometry was recommended but was never set up. Patient states that she has been having diarrhea for years but was unable to provide any additional information about frequency of BM's. Denies abdominal pain, bloating, odynophagia, reflux, regurgitation, early satiety, appetite loss, constipation, hematochezia or melena. Denies NSAID, asa or anticoags prior to her current admission. ENDOSCOPY HISTORY: EGD: 05/15/[address] Blas for dysphagia Findings: A small hiatal hernia without obstruction was found at the GE junction. No rings, webs, neoplastic lesions seen on retroflexion Multiple cold forceps biopsies were taken from the lower 3rd esophagus to rule out eosinophilic esophagitis The stomach at the body, cardia and fundus was examined was normal with no ulcers or masses The bulb and 2nd portion of duodenum was normal with no ulcers or masses esophageal manometry recommended to rule out achalasia Bx results: Esophagus, biopsy: - No histologic abnormality - No eosinophilic esophagitis COLONOSCOPY: Per patient last colonoscopy > 10 years ago but she was unable to provide an further details LABS AND STOOL STUDIES: Labs 07/22/2024: Sodium 144, potassium 4.0, BUN 18, creatinine 0.96, GFR WBC 10, Hgb 10, Hct 34 MCV 97, platelets 195 Total bilirubin 0.8, AST 35, ALT 16, Alkaline Phos 136, albumin 2.2 Stool FOB positive 07/10/2024 C-Diff positive 07/10/2024 IMAGING: CT abd/pelvis w/contrast 07/02/2024 IMPRESSION: 1. Persistent small collection of extra luminal gas in the left lower quadrant anterior abdominal wall immediately adjacent to a region of inflammatory stranding surrounding the descending colon consistent with diverticulitis. No abscess or more remote free intraperineal gas or fluid. 2. Persistent moderate-sized bilateral posterior layering pleural effusions with dependent compressive atelectasis in the visualized lower lobes. CT abd/pelvis w/contrast 06/21/2024 IMPRESSION: 1. Small persistent collection of extraluminal gas adjacent to the descending colon abutting the anterior abdominal wall, images 132-139. No evidence for abscess formation. Cannot exclude mild acute diverticulitis. 2: Interval development of moderate bilateral pleural effusions and ascites. <Yissel Rutherford APRN - Last Filed: 07/22/24 15:37> Review of Systems 2 Constitutional: Constitutional: Reports as per HPI <Yissel Rutherford APRN - Last Filed: 07/22/24 15:37> ENT: Reports as per HPI <Yissel Rutherford APRN - Last Filed: 07/22/24 15:37> Cardiovascular: Cardiovascular: Reports as per HPI, Denies chest pain and Denies dyspnea <Yissel Rutherford APRN - Last Filed: 07/22/24 15:37> Respiratory: Respiratory: Denies cough and Denies dyspnea <Yissel Rutherford APRN - Last Filed: 07/22/24 15:37> Gastrointestinal: Gastrointestinal: Reports as per HPI <Yissel Rutherford APRN - Last Filed: 07/22/24 15:37> Musculoskeletal: Musculoskeletal: Reports as per HPI <Yissel Rutherford APRN - Last Filed: 07/22/24 15:37> Integumentary/Breasts: Skin/Breast: Reports as per HPI <Yisselurbano Rutherford APR Last Filed: 07/22/24 15:37> Psychiatric: Psychiatric: Reports as per HPI <Yisselurbano Rutherford APRN - Last Filed: 07/22/24 15:37> Endocrine: Endocrine: Reports no additional endocrine complaints <Yissel MckinnonGeneva ImeldaKAIDEN billingsN - Last Filed: 07/22/24 15:37> Hematologic/Lymphatic: Hematologic/Lymphatic: Reports no additional hematologic/lymphatic complaints <Yisselurbano Rutherford APRN - Last Filed: 07/22/24 15:37> [facility] Past Medical History Medical History: Medical History Acute on chronic anemia Occult blood in stools Edema Hypokalemia CVA (cerebral vascular accident) Urinary retention Chronic obstructive pulmonary disease Chronic kidney disease C. difficile colitis (2021) Megaloblastic anemia Hiatal hernia Anxiety Postmenopausal Hypothyroidism Gout Sleep apnea intolerant of CPAP Diverticulitis Hypertension <Yissel Sukh Rutherford APR Last Filed: 07/22/24 15:37> Surgical History Surgical History: Surgical History History of partial hysterectomy History of appendectomy incidental appendectomy during open cholecystectomy History of tonsillectomy and adenoidectomy History of cholecystectomy <Yissel Sukh Rutherford APRN - Last Filed: 07/22/24 15:37> Family History Family History: Family History Other Family history of malignant neoplasm <Yisselurbano Rutherford APRN - Last Filed: 07/22/24 15:37> Social History Social History: Social History Social History: Surrogate medical decision maker: Jeremiah Tom, son ([phone]). Code status: Do not resuscitate. Smoking packs per day: 1 Smoking cigarettes per day: 20.0 Years smoked: 5 Smoking pack-years: 5.00 Smoking status: Never smoker Tobacco type: cigarettes Alcohol intake: never Substance use: never Substance use type: does not use Do You Feel Safe in your Home?: Yes Lack of Transportation: YES Lack of Food: Never True Current Housing: I Have Housing Concerned About Future Housing: No Difficulty Paying Gas/Electric Bills: No Difficulty Paying for Meds: No Currently Unemployed: No Education: High School Diploma/GED Difficulty w/ Childcare or Family Care: No Additional living arrangements comments: since 1987. She had a daughter who of complications of juvenile diabetes at the age of 40. Her son is still living. Ambulates with a walker. 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 Spiritual care concerns: No <Yissel Rutherford, DIRECTOR OF REGULATORY AFFAIRS - Last Filed: 07/22/24 15:37> Meds Home Medications and Allergies Home medications: Home Medications ?Medication ?Instructions ?Recorded ?Confirmed ?Type esomeprazole magnesium 40 mg 1 cap PO 2XD 11/23/21 07/02/24 History capsule,delayed release (Nexium) levothyroxine 75 mcg tablet 1 tablet PO DAILY 11/23/21 07/02/24 History (Synthroid) metoprolol tartrate 50 mg tablet 1 tablet PO BID 11/23/21 07/02/24 History (Lopressor) montelukast 10 mg tablet 1 tablet PO HS 11/23/21 07/02/24 History (Singulair) trazodone 100 mg tablet 100 mg PO HS 11/23/21 07/02/24 History meclizine 12.5 mg tablet 12.5 mg PO TID PRN dizziness #60 05/18/24 07/02/24 Rx tabs potassium chloride 10 mEq 1 tablet PO DAILY #30 tabs 05/18/24 07/02/24 Rx tablet,extended release (Klor-Con) alprazolam 1 mg tablet 1 mg PO QID PRN anxiety #5 tabs 06/28/24 07/02/24 Rx fidaxomicin 200 mg tablet (Dificid) 200 mg PO Q12HR #27 tabs 06/28/24 07/02/24 Rx folic acid 1 mg tablet 1 mg PO DAILY #30 tabs 06/28/24 07/02/24 Rx tramadol 50 mg tablet 50 mg PO DAILY PRN pain #5 tabs 06/28/24 07/02/24 Rx tramadol 50 mg tablet 100 mg (2 x 50 mg) PO HS PRN pain 06/28/24 07/02/24 Rx #5 tabs bisacodyl 10 mg rectal suppository 10 mg RECTAL DAILY PRN constipation 07/02/24 07/02/24 History cyanocobalamin (vitamin B-12) 1,000 mcg PO DAILY 07/02/24 07/02/24 History 1,000 mcg tablet (Vitamin B-12) levofloxacin 750 mg tablet 750 mg PO DAILY 07/02/24 07/02/24 History magnesium citrate (Citrate of 296 ml PO DAILY PRN constipation 07/02/24 07/02/24 History Magnesia oral) magnesium hydroxide 400 mg/5 mL 30 ml PO HS PRN constipation 07/02/24 07/02/24 History oral suspension (Dulcolax (magnesium hydroxide)) metronidazole 500 mg tablet 500 mg PO TID 07/02/24 07/02/24 History olmesartan 20 mg tablet (Benicar) 40 mg PO DAILY 07/02/24 07/02/24 History sodium phosphates 19 gram-7 118 ml RECTAL DAILY PRN 07/02/24 07/02/24 History gram/118 mL enema (Enema) constipation vancomycin 125 mg capsule 125 mg PO QID 07/02/24 07/02/24 History (Vancocin) <Yissel Rutherford APRN - Last Filed: 07/22/24 15:37> Allergies/Adverse reactions: Allergies Allergy/AdvReac Type Severity Reaction Status Date / Time No Known Allergies Allergy Mild Verified 07/02/24 21:56 <Yissel Rutherford APRN - Last Filed: 07/22/24 15:37> Vital Signs Vital Signs - 24 hr 07/21/24 14:00 07/21/24 20:00 07/21/24 21:22 Temperature 97.5 F L Pulse Rate 90 94 94 Respiratory Rate 18 18 Blood Pressure 135/65 Pulse Oximetry 95 95 Oxygen Delivery Room Air Fraction of Inspired Oxygen 21 07/21/24 22:00 07/22/24 06:00 07/22/24 08:00 Temperature 97.4 F L 97.1 F L Pulse Rate 94 93 93 Respiratory Rate 17 16 16 Blood Pressure 144/83 H 140/75 Pulse Oximetry 95 98 98 Oxygen Delivery Room Air Fraction of Inspired Oxygen 21 <Yissel MckinnonGeneva ImeldaPAOLA billings - Last Filed: 07/22/24 15:37> Exam 2 Const: General: cooperative, healthy appearing, comfortable, no acute distress and well developed <Yissel MckinnonGeneva ImeldaPAOLA billings - Last Filed: 07/22/24 15:37> Orientation/consciousness: oriented to person, oriented to place, oriented to time and patient oriented x3 <Yissel Sukh Rutherford APRN - Last Filed: 07/22/24 15:37> HENMT: Head: normal to inspection, normocephalic and atraumatic <Yissel MckinnonGeneva ImeldaKAIDEN billingsN - Last Filed: 07/22/24 15:37> Mouth: Yes Normal oral and palatal mucosa present and Yes moist mucous membranes <Yissel MckinnonGeneva ImeldaKAIDEN billingsN - Last Filed: 07/22/24 15:37> Eyes: General: appearance normal, both eyes and all related structures < Yissel Sukh Rutherford APRN - Last Filed: 07/22/24 15:37> Conjunctivae: conjunctivae normal <Yissel Sukh Rutherford APRN - Last Filed: 07/22/24 15:37> Sclera: sclerae normal <Yissel Sukh Rutherford APRN - Last Filed: 07/22/24 15:37> Pupils: Equal, round and reactive pupils present <Yissel Sukh Rutherford APRN - Last Filed: 07/22/24 15:37> Neck: Neck: normal visual inspection <Yisselurbano Rutherford APRN - Last Filed: 07/22/24 15:37> Chest: Chest palpation & inspection: normal inspection of the chest < Yissel Sukh Rutherford APRN - Last Filed: 07/22/24 15:37> Resp: Effort & Inspection: normal respiratory effort and able to speak in complete sentences <Yisselurbano Rutherford APRN - Last Filed: 07/22/24 15:37> Auscultation: clear to auscultation bilaterally <Yisselurbano Rutherford APRN - Last Filed: 07/22/24 15:37> Cardio: Jugular venous distension: no JVD <Yissel Rutherford APRN Last Filed: 07/22/24 15:37> Rate: regular rate <Yissel [facility]utherford APRFirst[facility] Last Filed: 07/22/24 15:37> Rhythm: regular rhythm <Yissel Rutherford DIRECTOR OF REGULATORY AFFAIRS Last Filed: 07/22/24 15:37> Heart sounds: S1 normal heart sound present and S2 normal heart sound present <Yissel Rutherford DIRECTOR OF REGULATORY AFFAIRS Last Filed: 07/22/24 15:37> GI: Inspection: normal to inspection <Yissel Rutherford [facility] Last Filed: 07/22/24 15:37> GI Palp: Yes Soft to palpation (large), No Tenderness to palpation present (GI), No Guarding due to palpation present (GI) and Yes No hepatosplenomegaly present <Yissel Rutherford APRN Last Filed: 07/22/24 15:37> Auscultation: normal bowel sounds <Yissel Rutherford [facility] Last Filed: 07/22/24 15:37> Rectal Exam: deferred <Yissel Rutherford DIRECTOR OF REGULATORY AFFAIRS Last Filed: 07/22/24 15:37> Skin: General skin exam: normal color and no rashes or lesions noted < Yissel Rutherford APRN Last Filed: 07/22/24 15:37> Other: bruising <Yissel Rutherford [facility] Last Filed: 07/22/24 15:37> Neuro: General: oriented to person, oriented to place, oriented to time and patient oriented x3 <Yissel Rutherford APRFirst[facility] Last Filed: 07/22/24 15:37> Cranial nerves: Yes Equal, round and reactive pupils present <Yissel Rutherford [facility] Last Filed: 07/22/24 15:37> Speech: normal speech <Yissel Rutherford DIRECTOR OF REGULATORY AFFAIRS Last Filed: 07/22/24 15:37> Extrem: General: normal to inspection, no clubbing, cyanosis or edema and edema bilateral <Yissel Rutherford APR[facility] Last Filed: 07/22/24 15:37> Psych: Appearance: grossly normal and well kempt <Yissel Rutherford APRN - Last Filed: 07/22/24 15:37> Affect: normal affect <Yissel Rutherford APRN - Last Filed: 07/22/24 15:37> Results Labs CBC & Chem 7: 07/22/24 05:08 07/22/24 05:08 <Yissel Rutherford APRN - Last Filed: 07/22/24 15:37> Labs: Short CBC 07/22/24 Range/Units 05:08 WBC 10.0 (4.5-10.0) K/mm3 Hgb 10.4 L (12.0-15.0) g/dL Hct 33.5 L (37.0-47.0) % Plt Count 195 (150-375) k/mm3 BMP 07/22/24 05:08 Sodium 144 Potassium 4.0 Chloride 113 H Carbon Dioxide 23 BUN 18 H Creatinine 0.96 Glucose 86 Calcium 8.0 L Liver Function 07/22/24 Range/Units 05:08 Total Bilirubin 0.8 (0.2-1.3) mg/dL AST 35 (14-36) U/L ALT 16 (6-35) U/L Alkaline Phosphatase 136 H (38-126) U/L Albumin 2.2 L (3.5-5.1) g/dL <Yissel Rutherford APRN - Last Filed: 07/22/24 15:37>
--- NOTE | 2024-07-22 13:57 | P.PNIM_ITS ---
Progress Note: A&P Assessment and Plan (1) CVA (cerebral vascular accident): Code(s): I63.9 - Cerebral infarction, unspecified Status: Acute Assessment and Plan: 07/11/24: * MRA of brain showing acute infarct in the left frontoparietal lobe in the deep white matter * Left lower extremity weakness * PT and OT ordered * Continue atorvastatin, Plavix * Aspirin currently on hold as she is on Eliquis for DVT prophylaxis * A Neurology following 07/15 * continue Eliquis * neurology following 07/16 * No change 07/20 - Stable. On atorvastatin. Asa/plavix previously held. Apixaban resumed. (2) Seizure: Code(s): R56.9 - Unspecified convulsions Status: Acute Assessment and Plan: 07/11 * New onset * CT of the head was negative * MRI showing acute infarct in the left frontoparietal lobe in deep white matter * EEG findings abnormal read, cannot rule out seizure activity * Continue atorvastatin, Plavix * Will hold baby aspirin considering patient is on Eliquis * Continue Keppra * Continue seizure precautions * Cardiac telemetry stable, we will go ahead and discontinue continuous telemetry * Move out of IMU to regular med surge floor 07/15 * continue neuro checks * continue seizure precautions * continue Keppra, atorvastatin, Plavix * neurology following 07/16 * no change 07/18-07/20 - No new seizure activity. - Cont. keppra at 500mg bid. (3) C. difficile diarrhea: Code(s): A04.72 - Enterocolitis due to Clostridium difficile, not specified as recurrent Status: Acute Assessment and Plan: 07/11/24 * Continue vancomycin pulse dosing * Pulse taper vanc dose as follows: 125 mg orally 4 times daily for 10 to 14 days, then 125 mg orally twice daily for 7 days, then 125 mg orally once daily for 7 days, then 125 mg orally every 2 to 3 days for 2 to 8 weeks 07/15 * no change to current treatment plan 07/18 - Cont. current pulse/taper. Orders are in. 07/20: restarted Oral Vancomycin 07/21: patient completed 2 courses of fidaxomicin and Tapering dose of oral Vancomycin. Consulted GI for fecal microbiota transplantation (4) Diverticulitis of intestine with perforation without abscess: Qualifiers: Diverticulitis bleeding: without bleeding Diverticulitis site: large intestine Qualified Code(s): K57.20 - Diverticulitis of large intestine with perforation and abscess without bleeding Code(s): K57.80 - Diverticulitis of intestine, part unspecified, with perforation and abscess without bleeding Status: Acute Assessment and Plan: 07/11/24 * Failed Dificid * Continue oral vancomycin 07/15 * continue oral vancomycin 07/16 * No change 07/18 - Stable, completing oral vancomycin pulse/taper. 07/20: completed oral vancomycin (5) Anemia: Qualifiers: Anemia type: due to chronic kidney disease Chronic kidney disease stage: unspecified stage Qualified Code(s): N18.9 - Chronic kidney disease, unspecified; D63.1 - Anemia in chronic kidney disease Code(s): D64.9 - Anemia, unspecified Status: Acute Assessment and Plan: 07/11/24 * Continue to transfuse for hemoglobin less than 7 * Patient receive 1 unit of blood this admission * Currently on Eliquis, Plavix * Will hold aspirin * Continue to trend 07/15 * hemoglobin 7.5 * no change to current treatment plan 07/18 - S/P 2 units prbc overnight with improvement noted on overnight labs. - Resume anticoag. - GI had been consulted, not able to perform colonoscopy currently with diverticulitis, patient had previously refused as well. (6) Acute DVT (deep venous thrombosis): Code(s): I82.409 - Acute embolism and thrombosis of unspecified deep veins of unspecified lower extremity Status: Acute Assessment and Plan: 07/11/24 * Venous Doppler showing extensive right lower extremity DVT * Patient was started on Lovenox and then switched to heparin infusion on 07/09/2024. She later developed dark tarry stools and a drop in her hemoglobin requiring blood transfusion. Heparin drip was placed on hold for 24 hours and then she was restarted on Eliquis 10 mg daily x7 days--standard protocol * General surgery was consulted for IVC filter however she is not a candidate at this time due to her other comorbidities * Continue Eliquis as stated above 07/15 * continue Eliquis 07/16 * No change 07/18 - Eliquis held overnight d/t needing two units prbc. - Stable hgb resuming eliquis. 07/20: Resumed Eliquis. Will monitor H and H (7) Occult blood in stools: Code(s): R19.5 - Other fecal abnormalities Status: Acute Assessment and Plan: 07/11/24 * Patient was occult blood positive on 07/09/2024 * She was given 1 unit of blood * H&H is stable * GI recommending outpatient colonoscopy considering her comorbidities * Recently diagnosed with diverticulitis and C diff colitis 07/15 * hemoglobin 7.5 * continue to trend 07/16 * No change 07/18 - Transfused two units prbc overnight with appropriate rise in hgb on repeat labs overnight. - Apixaban will resume. (8) Delirium: Code(s): R41.0 - Disorientation, unspecified Status: Acute Assessment and Plan: 07/15 * more confused today * continue neuro checks * encourage good sleep hygiene 07/16 * continue neuro checks * currently alert and oriented x3 07/18 - Drowsy this am but rousable and and answers questions. Improved later in the am. No focal deficits. - Cont. to monitor closely for developing infection - post influenza pna, UTI, etc. Check urine this am, pending. - Treating for pna. (9) Pneumonia: Code(s): J18.9 - Pneumonia, unspecified organism Status: Acute Assessment and Plan: 07/18 - Slightly less oriented than reported from day prior this morning, improving in the late morning, cxr shows infiltrate. Plan to start ceftriaxone/zithromycin today day 1. (10) Upper respiratory infection: Code(s): J06.9 - Acute upper respiratory infection, unspecified Status: Acute Assessment and Plan: 07/11/24 * Patient reported cold-like symptoms with a nonproductive cough and wheezing * Will check for influenza a and B, RSV, COVID * Start DuoNebs q.6 hour * Will obtain chest x-ray * Incentive spirometry while awake * Pep therapy with cornet flutter valve 07/15 * no change to current treatment plan 07/17 * Chest x-ray ordered * Still coarse rhonchi * Patient finished course Tamiflu for influenza a * Continue incentive spirometry and pep therapy 07/18 - Completed tamiflu, breathing easily. Lungs diminished bilaterally with slightly coarse rales in the right. (11) Urinary retention: Code(s): R33.9 - Retention of urine, unspecified Status: Acute Assessment and Plan: 07/11/24: * Patient had acute urinary retention requiring Fitzpatrick on 07/03/24 * Urology was consulted * Patient failed voiding trial * Patient will keep catheter and repeat voiding trial in 1-2 weeks on an outpatient basis with Urology 07/15 * no change to current treatment plan 07/18 - Catheter in place, consider trial of voiding 07/25 at the two week kelly. (12) Hypokalemia: Code(s): E87.6 - Hypokalemia Status: Acute Assessment and Plan: 07/11/24: * Potassium 4.3 * No need for replacement * Resolved 07/15 * potassium 3.5 * no replacement needed 07/16 * potassium 3.7 * no replacement needed (13) Hypothyroidism: Qualifiers: Hypothyroidism type: unspecified Qualified Code(s): E03.9 - Hypothyroidism, unspecified Code(s): E03.9 - Hypothyroidism, unspecified Status: Chronic Assessment and Plan: 07/11/24 * Continue Synthroid 07/15 * no change to current treatment plan 07/18 - Cont. current. (14) Hypertension: Qualifiers: Hypertension type: primary hypertension Qualified Code(s): I10 - Essential (primary) hypertension Code(s): I10 - Essential (primary) hypertension Status: Chronic Assessment and Plan: -Blood pressure ranging 105/ 81 to 146/73 - Continue metoprolol, Benicar and monitor. -no change to current treatment plan -BP generally 130-140, trending higher this am, consider uptitration if trend continues. Plan Melissa Tom is a 73 year old female initially presenting with AMS found to have CVA and seizure with failed o/p management of c.diff/diverticulitis. Complicated hospital course with acute VTE of the lower ext, anemia requiring transfusions, most recent 2 units on 07/17/24. She has developed urinary retention and fitzpatrick has been in place. Completed tamiflu for influenza A yesterday - a focal infiltrate is now noted and patient less oriented. Abx for pna have been started today, 07/18/24. Subjective Date/time seen: 07/22/24 13:57 Interval history: Interval Hx: Patient is currently treated for CVA, seizures, C diff, diverticulitis, anemia, acute DVT, pneumonia, and urinary retention.On 07/18 E liquis held overnight d/t needing two units prbc. Currently hgb is table so resuming Eliquis 07/21:Reconsulted GI. Patient continues to have diarrhea. Continue oral vancomycin. Review of Systems Review of Systems: All systems reviewed & are unremarkable except as noted in HPI and below Constitutional: Constitutional: Reports no additional constitutional complaints Eyes: Eyes: Reports no additional eye complaints ENT: Reports system reviewed and no additional complaints, except as documented Cardiovascular: Cardiovascular: Reports no additional cardiovascular complaints Respiratory: Respiratory: Reports no additional respiratory complaints Gastrointestinal: Gastrointestinal: Reports no additional gastrointestinal complaints and Reports diarrhea Genitourinary: Genitourinary: Reports no additional female genitourinary complaints Musculoskeletal: Musculoskeletal: Reports no additional musculoskeletal complaints Integumentary/Breasts: Skin/Breast: Reports system reviewed and no additional complaints, except as docu and Reports as per HPI Neurologic: Reports system reviewed and no additional complaints, except as documented Psychiatric: Psychiatric: Reports no additional psychiatric complaints and Reports as per HPI Endocrine: Endocrine: Reports no additional endocrine complaints and Reports as per HPI Hematologic/Lymphatic: Hematologic/Lymphatic: Reports no additional hematologic/lymphatic complaints and Reports as per HPI Allergic/Immunologic: Allergic/Immunologic: Reports no additional allergic/immunologic complaints and Reports as per HPI Exam Narrative: GENERAL APPEARANCE: Appears to be in no acute distress. HEAD: normocephalic atraumatic EYES: EOMI. ENT: Hearing grossly intact, no nasal discharge NECK: Neck supple, trachea midline. CARDIAC: Normal S1/S2. Rhythm is regular. No murmurs, rubs, or gallops. No cyanosis or pallor. Extremities are warm and well perfused. LUNGS: Clear to auscultation without rales, rhonchi, wheezing. Breath sounds are bilaterally diminished.. Respirations even and unlabored. ABDOMEN: BS positive x 4 quadrants. Soft, nondistended, nontender. No guarding or rebound. MSK: No joint tenderness/swelling, fair strength in all extremities. PERIPHERAL VASCULAR: Peripheral pulses palpable. Normal perfusion, cap refill <2 seconds. No edema. NEURO: Follows commands. No focal deficits.Drowsy this am but oriented to self and situation. SKIN: [place] without lesions or eruptions. PSYCH: Stable, Const: General: cooperative, no acute distress, alert, awake and obese Nutritional Appearance: obese Orientation/consciousness: oriented to person, oriented to place and oriented to time HENMT: Head: normal to inspection and normocephalic Eyes: General: appearance normal, both eyes and all related structures Neck: Neck: normal visual inspection, full ROM and no lymphadenopathy Chest: Chest palpation & inspection: normal inspection of the chest Resp: Effort & Inspection: normal respiratory effort, able to speak in complete sentences and Actively coughing Auscultation: clear to auscultation bilaterally and diminished lung sounds bilateral in the lower lung forbes Cardio: Jugular venous distension: no JVD Palpation: normal PMI Rate: regular rate Rhythm: regular rhythm Heart sounds: S1 normal heart sound present and S2 normal heart sound present GI: Inspection: normal to inspection Auscultation: High-pitched bowel sounds present and Hyperactive bowel sounds present Rectal Exam: other (rectal tube in place, liquid stool noted) Other: rectal tube in place and draining liquid stool Urinary Catheter: Urinary Catheter: patent and draining and urine clear Skin: General skin exam: normal color and no rashes or lesions noted Neuro: General: oriented to person, oriented to place, oriented to time, tone normal and moves all extremities Extrem: General: normal to inspection and full ROM Psych: Appearance: grossly normal Mental Status: mental status grossly normal Speech and movement: Normal speech and movement present Objective Data Vital Signs Vital Signs: Vital Signs - 24 hr 07/21/24 14:00 07/21/24 20:00 07/21/24 21:22 Temperature 97.5 F L Pulse Rate 90 94 94 Respiratory Rate 18 18 Blood Pressure 135/65 Pulse Oximetry 95 95 Oxygen Delivery Room Air Fraction of Inspired Oxygen 21 07/21/24 22:00 07/22/24 06:00 07/22/24 08:00 Temperature 97.4 F L 97.1 F L Pulse Rate 94 93 93 Respiratory Rate 17 16 16 Blood Pressure 144/83 H 140/75 Pulse Oximetry 95 98 98 Oxygen Delivery Room Air Fraction of Inspired Oxygen 21 Intake/Output Intake/Output: Intake & Output 07/19/24 07/20/24 07/21/24 07/22/24 23:59 23:59 23:59 23:59 Intake Total 1570 1130 689 340 Output Total 275 850 350 200 Balance 1295 280 339 140 Meds/Results Medications: Active Medications Generic Name Dose Route Start Last Admin Trade Name Freq PRN Reason Stop Dose Admin Acetaminophen 1,000 mg 07/11/24 16:52 07/18/24 14:06 Acetaminophen 500 Mg Tablet PO 1,000 mg Q6H PRN Administration Mild Pain (1-3) or Fever Albuterol/Ipratropium 3 ml 07/19/24 17:28 Ipratropium 0.5 Mg/Albuterol Sulfate 2.5 Mg Ampul.Neb 3 Ml INHALATION Q6HRT PRN Wheezing Apixaban 5 mg 07/12/24 21:00 07/22/24 09:00 Apixaban 5 Mg Tablet PO 5 mg Q12HR SOLITARIO Administration Atorvastatin Calcium 80 mg 07/04/24 21:00 07/22/24 09:00 Atorvastatin 40 Mg Tablet PO 80 mg DAILY SOLITARIO Administration Calcium Carbonate 500 mg 07/14/24 08:00 07/22/24 08:59 Calcium Carbonate (Oscal) 500 Mg Tablet PO 500 mg BIDWM SOLITARIO Administration Cyanocobalamin 1,000 mcg 07/12/24 09:00 07/22/24 09:00 Cyanocobalamin 1,000 Mcg Tablet PO 1,000 mcg DAILY SOLITARIO Administration Dextrose 12.5 gm 07/20/24 16:44 Dextrose 50% 25 Gm/50 Ml Syringe IV PUSH PRN PRN Hypoglycemia Protocol Ferrous Sulfate 325 mg 07/15/24 09:00 07/22/24 08:59 Ferrous Sulfate [address] PO 325 mg DAILY SOLITARIO Administration Folic Acid 1 mg 07/03/24 09:00 07/22/24 09:00 Folic Acid 1 Mg Tablet PO 1 mg DAILY SOLITARIO Administration Glucagon 1 mg 07/20/24 16:44 Glucagon For Inj 1 Mg Vial IM PRN PRN Hypoglycemia Protocol Glucose 15 gm 07/20/24 16:44 07/20/24 17:02 Glucose Oral Gel 15 Gm Of Glucse In 37.5 Gm Tube PO 15 gm PRN PRN Administration Hypoglycemia Protocol Guaifenesin 1,200 mg 07/11/24 21:00 07/22/24 09:00 Guaifenesin 12 Hr 600 Mg Tabcr PO 1,200 mg Q12HR SOLITARIO Administration Dextrose 1,000 mls @ 100 mls/hr 07/20/24 16:44 Dextrose 5% 1,000 Ml IVPB PRN PRN Hypoglycemia Protocol Levetiracetam 500 mg 07/03/24 12:30 07/22/24 08:59 Levetiracetam 500 Mg Tablet PO 500 mg Q12HR SOLITARIO Administration Levothyroxine Sodium 75 mcg 07/03/24 06:30 07/22/24 05:18 Levothyroxine Sodium 75 Mcg Tablet PO 75 mcg DAILY@0630 SOLITARIO Administration Lidocaine 1 patch 07/12/24 09:00 07/22/24 09:01 Lidocaine 5% Patch TRANSDERM Not Given DAILY SOLITARIO Magnesium Oxide 400 mg 07/06/24 17:00 07/22/24 08:59 Magnesium Oxide 400 Mg Tablet PO 400 mg BID SOLITARIO Administration Metoprolol Tartrate 50 mg 07/03/24 09:00 07/22/24 08:59 Metoprolol Tartrate 50 Mg Tab PO 50 mg Q12HR SOLITARIO Administration Miscellaneous Information 1 each 07/19/24 00:01 Vancomycin 125 Mg Capsule Needs To Be Renewed Or It Will Automatically Discontinue. XX 08/18/24 00:00 [facility] Miscellaneous Information 1 each 07/20/24 00:01 Tramadol Needs To Be Renewed Or It Will Automatically Discontinue. XX 08/19/24 00:00 [facility] Montelukast Sodium 10 mg 07/03/24 00:15 07/21/24 21:21 Montelukast Sodium 10 Mg Tablet PO 10 mg HS SOLITARIO Administration Olmesartan 40 mg 07/03/24 09:00 07/22/24 09:00 Olmesartan Medoxomil 20 Mg Tablet PO 40 mg DAILY SOLITARIO Administration Pantoprazole Sodium 40 mg 07/09/24 12:35 07/22/24 09:01 Pantoprazole Sodium Iv 40 Mg Vial IV PUSH 40 mg Q12HR SOLITARIO Administration Sodium Bicarbonate 650 mg 07/16/24 17:00 07/22/24 12:20 Sodium Bicarbonate Tab 650 Mg Tablet PO 650 mg TID SOLITARIO Administration Sodium Chloride 20 ml 07/04/24 16:15 07/22/24 05:19 Central Line Flush IV PUSH 20 ml PRN PRN Administration after blood draws Sodium Chloride 10 ml 07/04/24 16:15 Central Line Flush IV PUSH PRN PRN with TPN bag changes Sodium Chloride 10 ml 07/04/24 22:00 07/22/24 12:20 Central Line Flush IV PUSH 10 ml Q8HR SOLITARIO Administration Trazodone HCl 100 mg 07/11/24 21:00 07/21/24 21:22 Trazodone Hcl 50 Mg Tablet PO Not Given HS SOLITARIO Vancomycin HCl 125 mg 07/20/24 18:00 07/22/24 12:20 Vancomycin Hcl 125 Mg Oral Capsule PO 07/30/24 17:59 125 mg Q6HR SOLITARIO Administration Radiology Results: ITS Impressions Head CT 07/02/24 14:34 IMPRESSION: 1. Normal aging brain. Abdomen/Pelvis CT 07/02/24 14:36 IMPRESSION: 1. Persistent small collection of extra luminal gas in the left lower quadrant anterior abdominal wall immediately adjacent to a region of inflammatory stranding surrounding the descending colon consistent with diverticulitis. No abscess or more remote free intraperineal gas or fluid. 2. Persistent moderate-sized bilateral posterior layering pleural effusions with dependent compressive atelectasis in the visualized lower lobes. Brain MRI 07/04/24 11:30 IMPRESSION: 1. 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 2. 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 3. Diffuse pachymeningeal enhancement. This finding is most commonly secondary to prior lumbar puncture or spine procedure. ADDENDUM: 07/04/24 1216 The contrast volume was 20 mL MultiHance. Venous Doppler Study 07/05/24 14:17 IMPRESSION: 1. Extensive deep vein thrombosis in right lower limb. I called this result to Elsy Tao. Chest X-Ray 07/17/24 18:28 IMPRESSION: 1. Airspace opacities at left lung base, consistent with atelectasis versus pneumonia. 2. Small left pleural effusion. Labs Labs: Laboratory Results - last 24 hr 07/21/24 07/21/24 07/22/24 16:38 19:53 05:08 WBC 10.0 RBC 3.46 L Hgb 10.4 L Hct 33.5 L MCV 96.8 MCH 30.1 MCHC 31.0 L RDW 20.9 H Plt Count 195 MPV 11.0 H Sodium 144 Potassium 4.0 Chloride 113 H Carbon Dioxide 23 Anion Gap 8 BUN 18 H Creatinine 0.96 Estim Creat Clear Calc 52 Estimated GFR 57 L Glucose 86 POC Capillary Glucose 96 86 Calcium 8.0 L Total Bilirubin 0.8 AST 35 ALT 16 Alkaline Phosphatase 136 H Total Protein 5.0 L Albumin 2.2 L 07/22/24 07/22/24 08:10 11:33 WBC RBC Hgb Hct MCV MCH MCHC RDW Plt Count MPV Sodium Potassium Chloride Carbon Dioxide Anion Gap BUN Creatinine Estim Creat Clear Calc Estimated GFR Glucose POC Capillary Glucose 86 93 Calcium Total Bilirubin AST ALT Alkaline Phosphatase Total Protein Albumin Quality VTE Prophylaxis VTE prophylaxis: pharmacologic ordered Hospitalist MIPS Advance Care Plan I have confirmed that the patient's Advanced Care Plan is present, code status is documented, or surrogate decision maker is listed in patient medical record.: Yes Medication Reconciliation I have utilized all available resources to obtain, update and review the patients current medications (includes all prescriptions, OTC, herbals, cannabis, and nutritional supplements).: Yes
[2024-07-22 14:00] VITALS: BP 140/56; PULSE 87; RESP 20; TEMP 35.9; O2SAT 100
[2024-07-22] MEDS: SACCHAROMYCES BOULARDII 250 MG CAPSULE PO (17:16)
[2024-07-22 17:34] LABS: Glucose Point of Care 99 mg/dl (65-105)
[2024-07-22 20:00] VITALS: PULSE 104; RESP 20; O2SAT 100
[2024-07-22 21:03] VITALS: PULSE 104
[2024-07-22] MEDS: traZODone HCL 50 MG TABLET 100 MG PO (21:03)
[2024-07-22] MEDS: MONTELUKAST SODIUM 10 MG TABLET PO (21:03)
[2024-07-22 21:48] LABS: Glucose Point of Care 112 mg/dl (65-105)
[2024-07-22 22:00] VITALS: BP 133/72; PULSE 104; RESP 18; TEMP 37.4; O2SAT 100
[2024-07-23] VITALS (7 sets, daily range): BP systolic 136–151; BP diastolic 63–79; PULSE 99–106; RESP 18–20; TEMP 36.7–37; O2SAT 96–100; BMI 11.0
[2024-07-23] MEDS: VANCOMYCIN HCL 125 MG ORAL CAPSULE PO ×4 (05:40→23:32)
[2024-07-23] MEDS: ACETAMINOPHEN 500 MG TABLET 1000 MG PO ×2 (05:40→21:12)
[2024-07-23] MEDS: LEVOTHYROXINE SODIUM 75 MCG TABLET PO (05:40)
[2024-07-23] MEDS: CENTRAL LINE FLUSH 20 ML IV PUSH (05:43)
[2024-07-23] MEDS: CENTRAL LINE FLUSH 10 ML IV PUSH ×3 (05:43→21:12)
[2024-07-23 06:33] LABS: Hematocrit 33.4 % (37.0-47.0); Hemoglobin 10.6 g/dL (12.0-15.0); Mean Corpuscular HGB Conc 31.7 g/dl (32-36); Mean Corpuscular Hemoglobin 30.8 pg (26-34); Mean Corpuscular Volume 97.1 fl (80-100); Mean Platelet Volume 11.2 fl (7.4-10.4); Platelet Count Result 221 k/mm3 (150-375); Red Blood Count 3.44 M/mm3 (4.2-5.4); Red Cell Distribution Width 20.5 % (11.5-14.5); White Blood Count 8.4 K/mm3 (4.5-10.0)
[2024-07-23 06:43] LABS: Alanine Aminotransferase 20 U/L (6-35); Albumin Level 2.2 g/dL (3.5-5.1); Alkaline Phosphatase 165 U/L (38-126); Anion Gap 8 mmol/L (4-12); Aspartate Amino Transferase 40 U/L (14-36); Bilirubin,Total 0.8 mg/dL (0.2-1.3); Blood Urea Nitrogen 17 mg/dL (7-17); Calcium 7.9 mg/dL (8.4-10.2); Carbon Dioxide 24 mmol/L (22-30); Chloride 111 mmol/L (98-107); Estimated CRCL calculation 51 ml/min; Estimated Glomerular Filt Rate 56; Glucose 90 mg/dL (65-110); Potassium 3.4 mmol/L (3.4-5.0); Sodium 143 mmol/L (137-145)
[2024-07-23 08:02] LABS: Glucose Point of Care 103 mg/dl (65-105)
--- NOTE | 2024-07-23 08:19 | P.PNIM_ITS ---
Progress Note: A&P Assessment and Plan (1) CVA (cerebral vascular accident): Code(s): I63.9 - Cerebral infarction, unspecified Status: Acute Assessment and Plan: 07/11/24: * MRA of brain showing acute infarct in the left frontoparietal lobe in the deep white matter * Left lower extremity weakness * PT and OT ordered * Continue atorvastatin, Plavix * Aspirin currently on hold as she is on Eliquis for DVT prophylaxis * A Neurology following 07/15 * continue Eliquis * neurology following 07/16 * No change 07/20 - Stable. On atorvastatin. Asa/plavix previously held. Apixaban resumed. (2) Seizure: Code(s): R56.9 - Unspecified convulsions Status: Acute Assessment and Plan: 07/11 * New onset * CT of the head was negative * MRI showing acute infarct in the left frontoparietal lobe in deep white matter * EEG findings abnormal read, cannot rule out seizure activity * Continue atorvastatin, Plavix * Will hold baby aspirin considering patient is on Eliquis * Continue Keppra * Continue seizure precautions * Cardiac telemetry stable, we will go ahead and discontinue continuous telemetry * Move out of IMU to regular med surge floor 07/15 * continue neuro checks * continue seizure precautions * continue Keppra, atorvastatin, Plavix * neurology following 07/16 * no change 07/18-07/20 - No new seizure activity. - Cont. keppra at 500mg bid. (3) C. difficile diarrhea: Code(s): A04.72 - Enterocolitis due to Clostridium difficile, not specified as recurrent Status: Acute Assessment and Plan: 07/11/24 * Continue vancomycin pulse dosing * Pulse taper vanc dose as follows: 125 mg orally 4 times daily for 10 to 14 days, then 125 mg orally twice daily for 7 days, then 125 mg orally once daily for 7 days, then 125 mg orally every 2 to 3 days for 2 to 8 weeks 07/15 * no change to current treatment plan 07/18 - Cont. current pulse/taper. Orders are in. 07/20: restarted Oral Vancomycin 07/21: patient completed 2 courses of fidaxomicin and Tapering dose of oral Vancomycin. Consulted GI for fecal microbiota transplantation Tested positive For C diff in November of 2021. Recent stool studies performed 06/21/2024 showed C diff positive. As per documentation patient received Dificid from 06/21-07/08. Started Vancomycin taper 07/08-07/19 and again started on Vancomycin taper on 07/20 (4) Diverticulitis of intestine with perforation without abscess: Qualifiers: Diverticulitis bleeding: without bleeding Diverticulitis site: large intestine Qualified Code(s): K57.20 - Diverticulitis of large intestine with perforation and abscess without bleeding Code(s): K57.80 - Diverticulitis of intestine, part unspecified, with perforation and abscess without bleeding Status: Acute Assessment and Plan: 07/11/24 * Failed Dificid * Continue oral vancomycin 07/15 * continue oral vancomycin 07/16 * No change 07/18 - Stable, completing oral vancomycin pulse/taper. 07/20: completed oral vancomycin Tested positive For C diff in November of 2021. Recent stool studies performed 05/30 showed C diff positive. As per documentation patient received Dificid from 06/21-07/08. Started Vancomycin taper 07/08-07/19 and again started on Vancomycin taper on 07/20 (5) Anemia: Qualifiers: Anemia type: due to chronic kidney disease Chronic kidney disease s tage: unspecified stage Qualified Code(s): N18.9 - Chronic kidney disease, unspecified; D63.1 - Anemia in chronic kidney disease Code(s): D64.9 - Anemia, unspecified Status: Acute Assessment and Plan: 07/11/24 * Continue to transfuse for hemoglobin less than 7 * Patient receive 1 unit of blood this admission * Currently on Eliquis, Plavix * Will hold aspirin * Continue to trend 07/15 * hemoglobin 7.5 * no change to current treatment plan 07/18 - S/P 2 units prbc overnight with improvement noted on overnight labs. - Resume anticoag. - GI had been consulted, not able to perform colonoscopy currently with diverticulitis, patient had previously refused as well. (6) Acute DVT (deep venous thrombosis): Code(s): I82.409 - Acute embolism and thrombosis of unspecified deep veins of unspecified lower extremity Status: Acute Assessment and Plan: 07/11/24 * Venous Doppler showing extensive right lower extremity DVT * Patient was started on Lovenox and then switched to heparin infusion on 07/09/2024. She later developed dark tarry stools and a drop in her hemoglobin requiring blood transfusion. Heparin drip was placed on hold for 24 hours and then she was restarted on Eliquis 10 mg daily x7 days--standard protocol * General surgery was consulted for IVC filter however she is not a candidate at this time due to her other comorbidities * Continue Eliquis as stated above 07/15 * continue Eliquis 07/16 * No change 07/18 - Eliquis held overnight d/t needing two units prbc. - Stable hgb resuming eliquis. 07/20: Resumed Eliquis. Will monitor H and H (7) Occult blood in stools: Code(s): R19.5 - Other fecal abnormalities Status: Acute Assessment and Plan: 07/11/24 * Patient was occult blood positive on 07/09/2024 * She was given 1 unit of blood * H&H is stable * GI recommending outpatient colonoscopy considering her comorbidities * Recently diagnosed with diverticulitis and C diff colitis 07/15 * hemoglobin 7.5 * continue to trend 07/16 * No change 07/18 - Transfused two units prbc overnight with appropriate rise in hgb on repeat labs overnight. - Apixaban will resume. (8) Delirium: Code(s): R41.0 - Disorientation, unspecified Status: Acute Assessment and Plan: 07/15 * more confused today * continue neuro checks * encourage good sleep hygiene 07/16 * continue neuro checks * currently alert and oriented x3 07/18 - Drowsy this am but rousable and and answers questions. Improved later in the am. No focal deficits. - Cont. to monitor closely for developing infection - post influenza pna, UTI, etc. Check urine this am, pending. - Treating for pna. (9) Pneumonia: Code(s): J18.9 - Pneumonia, unspecified organism Status: Acute Assessment and Plan: 07/18 - Slightly less oriented than reported from day prior this morning, improving in the late morning, cxr shows infiltrate. Plan to start ceftriaxone/zithromycin today day 1. (10) Upper respiratory infection: Code(s): J06.9 - Acute upper respiratory infection, unspecified Status: Acute Assessment and Plan: 07/11/24 * Patient reported cold-like symptoms with a nonproductive cough and wheezing * Will check for influenza a and B, RSV, COVID * Start DuoNebs q.6 hour * Will obtain chest x-ray * Incentive spirometry while awake * Pep therapy with cornet flutter valve 07/15 * no change to current treatment plan 07/17 * Chest x-ray ordered * Still coarse rhonchi * Patient finished course Tamiflu for influenza a * Continue incentive spirometry and pep therapy 07/18 - Completed tamiflu, breathing easily. Lungs diminished bilaterally with slightly coarse rales in the right. (11) Urinary retention: Code(s): R33.9 - Retention of urine, unspecified Status: Acute Assessment and Plan: 07/11/24: * Patient had acute urinary retention requiring Fitzpatrick on 07/03/24 * Urology was consulted * Patient failed voiding trial * Patient will keep catheter and repeat voiding trial in 1-2 weeks on an outpatient basis with Urology 07/15 * no change to current treatment plan 07/18 - Catheter in place, consider trial of voiding 07/25 at the two week kelly. (12) Hypokalemia: Code(s): E87.6 - Hypokalemia Status: Acute Assessment and Plan: 07/11/24: * Potassium 4.3 * No need for replacement * Resolved 07/15 * potassium 3.5 * no replacement needed 07/16 * potassium 3.7 * no replacement needed (13) Hypothyroidism: Qualifiers: Hypothyroidism type: unspecified Qualified Code(s): E03.9 - Hypothyroidism, unspecified Code(s): E03.9 - Hypothyroidism, unspecified Status: Chronic Assessment and Plan: 07/11/24 * Continue Synthroid 07/15 * no change to current treatment plan 07/18 - Cont. current. (14) Hypertension: Qualifiers: Hypertension type: primary hypertension Qualified Code(s): I10 - Essential (primary) hypertension Code(s): I10 - Essential (primary) hypertension Status: Chronic Assessment and Plan: -Blood pressure ranging 105/ 81 to 146/73 - Continue metoprolol, Benicar and monitor. -no change to current treatment plan -BP generally 130-140, trending higher this am, consider uptitration if trend continues. (15) Dysphagia: Qualifiers: Dysphagia type: esophageal phase Qualified Code(s): R13.19 - Other dysphagia Code(s): R13.10 - Dysphagia, unspecified Status: Acute Assessment and Plan: Last EGD with dilation 05/15/2024 revealed a small hiatal hernia but no findings to explain symptoms. Following her EGD esophageal manometry was recommended to rule out achalasia but this was not arranged. Patient states that for the past 2 months she has been having postprandial nausea and vomiting. She is still having intermittent swallowing difficulty with solids, liquids, and pills. * esophagram ordered, if workup is unremarkable and symptoms persist we can arrange an esophageal manometry or endo flip as outpatient * continue supportive care with antiemetics Plan Melissa Tom is a 73 year old female initially presenting with AMS found to have CVA and seizure with failed o/p management of c.diff/diverticulitis. Complicated hospital course with acute VTE of the lower ext, anemia requiring transfusions, most recent 2 units on 07/17/24. She has developed urinary retention and fitzpatrick has been in place. Completed tamiflu for influenza A yesterday - a focal infiltrate is now noted and patient less oriented. Abx for pna have been started today, 07/18/24. Subjective Date/time seen: 07/23/24 08:19 Interval history: Interval history:Melissa Tom is a 73 year old female initially presenting with AMS found to have CVA and seizure with failed o/p management of c.diff/diverticulitis. Complicated hospital course with acute CVA,acute VTE of the lower ext, anemia requiring transfusions, most recent 2 units on 07/17/24. She has developed urinary retention and fitzpatrick has been in place. Completed tamiflu for influenza A yesterday - a focal infiltrate is now noted and patient less oriented. Abx for pna have been started today, 07/18/24. -Tested positive For C diff in November of 2021. Recent stool studies performed 06/21/2024 showed C diff positive. As per documentation patient received Dificid from 06/21-07/08. Started Vancomycin taper 07/08-07/19 and again started on Vancomycin taper on 07/20 1)Patient was previously treated with Dificid which according to records she failed treatment. 2)She is currently on 2 nd time on vancomycin taper 125 mg orally 4 times daily for 10 to 14 days, 125 mg orally twice daily for 7 days, 125 mg orally once daily for 7 days, then 125 mg orally every 2 to 3 days for 2 to 8 weeks. 3) Patient states that she has been experiencing diarrhea for a few years but was worse recently but she was unable to provide any further details regarding bowel frequency. She states that over the past few months she has lost 30 lb without trying, current weight 209 lb. 07/23: Patient feels tired . She wants to know what happened to her and wanted to call police. Discussed with GI and might need fecal transplant. Will [facility]. As per documentation patient received Dificid from 06/21-07/08. Started Vancomycin taper 07/08-07/19 and again started on Vancomycin taper on 07/20. Review of Systems Review of Systems: All systems reviewed & are unremarkable except as noted in HPI and below Constitutional: Constitutional: Reports no additional constitutional complaints Eyes: Eyes: Reports no additional eye complaints ENT: Reports system reviewed and no additional complaints, except as documented Cardiovascular: Cardiovascular: Reports no additional cardiovascular complaints Respiratory: Respiratory: Reports no additional respiratory complaints Gastrointestinal: Gastrointestinal: Reports no additional gastrointestinal complaints and Reports diarrhea Genitourinary: Genitourinary: Reports no additional female genitourinary complaints Musculoskeletal: Musculoskeletal: Reports no additional musculoskeletal complaints Integumentary/Breasts: Skin/Breast: Reports system reviewed and no additional complaints, except as docu and Reports as per HPI Neurologic: Reports system reviewed and no additional complaints, except as documented Psychiatric: Psychiatric: Reports no additional psychiatric complaints and Reports as per HPI Endocrine: Endocrine: Reports no additional endocrine complaints and Reports as per HPI Hematologic/Lymphatic: Hematologic/Lymphatic: Reports no additional hematologic/lymphatic complaints and Reports as per HPI Allergic/Immunologic: Allergic/Immunologic: Reports no additional allergic/immunologic complaints and Reports as per HPI Exam Narrative: GENERAL APPEARANCE: Appears to be in no acute distress. HEAD: normocephalic atraumatic EYES: EOMI. ENT: Hearing grossly intact, no nasal discharge NECK: Neck supple, trachea midline. CARDIAC: Normal S1/S2. Rhythm is regular. No murmurs, rubs, or gallops. No cyanosis or pallor. Extremities are warm and well perfused. LUNGS: Clear to auscultation without rales, rhonchi, wheezing. Breath sounds are bilaterally diminished.. Respirations even and unlabored. ABDOMEN: BS positive x 4 quadrants. Soft, nondistended, nontender. No guarding or rebound. MSK: No joint tenderness/swelling, fair strength in all extremities. PERIPHERAL VASCULAR: Peripheral pulses palpable. Normal perfusion, cap refill <2 seconds. No edema. NEURO: Follows commands. No focal deficits.Drowsy this am but oriented to self and situation. SKIN: Temperance without lesions or eruptions. PSYCH: Stable, Const: General: cooperative, no acute distress, alert, awake and obese Nutritional Appearance: obese Orientation/consciousness: oriented to person, oriented to place and oriented to time HENMT: Head: normal to inspection and normocephalic Eyes: General: appearance normal, both eyes and all related structures Neck: Neck: normal visual inspection, full ROM and no lymphadenopathy Chest: Chest palpation & inspection: normal inspection of the chest Resp: Effort & Inspection: normal respiratory effort, able to speak in complete sentences and Actively coughing Auscultation: clear to auscultation bilaterally and diminished lung sounds bilateral in the lower lung forbes Cardio: Jugular venous distension: no JVD Palpation: normal PMI Rate: regular rate Rhythm: regular rhythm Heart sounds: S1 normal heart sound present and S2 normal heart sound present GI: Inspection: normal to inspection Auscultation: High-pitched bowel sounds present and Hyperactive bowel sounds present Rectal Exam: other (rectal tube in place, liquid stool noted) Other: rectal tube in place and draining liquid stool Urinary Catheter: Urinary Catheter: patent and draining and urine clear Skin: General skin exam: normal color and no rashes or lesions noted Neuro: General: oriented to person, oriented to place, oriented to time, tone normal and moves all extremities Extrem: General: normal to inspection and full ROM Psych: Appearance: grossly normal Mental Status: mental status grossly normal Speech and movement: Normal speech and movement present Objective Data Vital Signs Vital Signs: Vital Signs - 24 hr 07/22/24 14:00 07/22/24 20:00 07/22/24 21:03 Temperature 96.7 F L Pulse Rate 87 104 H 104 H Respiratory Rate 20 20 Blood Pressure 140/56 L Pulse Oximetry 100 100 Oxygen Delivery Room Air Fraction of Inspired Oxygen 21 07/22/24 22:00 07/23/24 06:00 Temperature 99.3 F 98.0 F Pulse Rate 104 H 99 Respiratory Rate 18 18 Blood Pressure 133/72 151/74 H Pulse Oximetry 100 96 Oxygen Delivery Fraction of Inspired Oxygen Intake/Output Intake/Output: Intake & Output 07/20/24 07/21/24 07/22/2407/23/25 23:59 23:59 23:59 23:59 Intake Total 1130 689 580 100 Output Total 850 350 300 300 Balance 280 339 280 -200 Meds/Results Medications: Active Medications Generic Name Dose Route Start Last Admin Trade Name Ricardoq PRN Reason Stop Dose Admin Acetaminophen 1,000 mg 07/11/24 16:52 07/23/24 05:40 Acetaminophen 500 Mg Tablet PO 1,000 mg Q6H PRN Administration Mild Pain (1-3) or Fever Albuterol/Ipratropium 3 ml 07/19/24 17:28 Ipratropium 0.5 Mg/Albuterol Sulfate 2.5 Mg Ampul.Neb 3 Ml INHALATION Q6HRT PRN Wheezing Apixaban 5 mg 07/12/24 21:00 07/22/24 21:03 Apixaban 5 Mg Tablet PO 5 mg Q12HR SOLITARIO Administration Atorvastatin Calcium 80 mg 07/04/24 21:00 07/22/24 09:00 Atorvastatin 40 Mg Tablet PO 80 mg DAILY SOLITARIO Administration Calcium Carbonate 500 mg 07/14/24 08:00 07/22/24 17:17 Calcium Carbonate (Oscal) 500 Mg Tablet PO 500 mg BIDWM SOLITARIO Administration Cyanocobalamin 1,000 mcg 07/12/24 09:00 07/22/24 09:00 Cyanocobalamin 1,000 Mcg Tablet PO 1,000 mcg DAILY SOLITARIO Administration Dextrose 12.5 gm 07/20/24 16:44 Dextrose 50% 25 Gm/50 Ml Syringe IV PUSH PRN PRN Hypoglycemia Protocol Ferrous Sulfate 325 mg 07/15/24 09:00 07/22/24 08:59 Ferrous Sulfate [address] PO 325 mg DAILY SOLITARIO Administration Folic Acid 1 mg 07/03/24 09:00 07/22/24 09:00 Folic Acid 1 Mg Tablet PO 1 mg DAILY SOLITARIO Administration Glucagon 1 mg 07/20/24 16:44 Glucagon For Inj 1 Mg Vial IM PRN PRN Hypoglycemia Protocol Glucose 15 gm 07/20/24 16:44 07/20/24 17:02 Glucose Oral Gel 15 Gm Of Glucse In 37.5 Gm Tube PO 15 gm PRN PRN Administration Hypoglycemia Protocol Guaifenesin 1,200 mg 07/11/24 21:00 07/22/24 21:03 Guaifenesin 12 Hr 600 Mg Tabcr PO 1,200 mg Q12HR SOLITARIO Administration Dextrose 1,000 mls @ 100 mls/hr 07/20/24 16:44 Dextrose 5% 1,000 Ml IVPB PRN PRN Hypoglycemia Protocol Levetiracetam 500 mg 07/03/24 12:30 07/22/24 21:03 Levetiracetam 500 Mg Tablet PO 500 mg Q12HR SOLITARIO Administration Levothyroxine Sodium 75 mcg 07/03/24 06:30 07/23/24 05:40 Levothyroxine Sodium 75 Mcg Tablet PO 75 mcg DAILY@0630 SOLITARIO Administration Lidocaine 1 patch 07/12/24 09:00 07/22/24 09:01 Lidocaine 5% Patch TRANSDERM Not Given DAILY SOLITARIO Magnesium Oxide 400 mg 07/06/24 17:00 07/22/24 17:17 Magnesium Oxide 400 Mg Tablet PO 400 mg BID SOLITARIO Administration Metoprolol Tartrate 50 mg 07/03/24 09:00 07/22/24 21:03 Metoprolol Tartrate 50 Mg Tab PO 50 mg Q12HR SOLITARIO Administration Miscellaneous Information 1 each 07/19/24 00:01 Vancomycin 125 Mg Capsule Needs To Be Renewed Or It Will Automatically Discontinue. XX 08/18/24 00:00 [facility] Miscellaneous Information 1 each 07/20/24 00:01 Tramadol Needs To Be Renewed Or It Will Automatically Discontinue. XX 08/19/24 00:00 [facility]IFY [facility] Montelukast Sodium 10 mg 07/03/24 00:15 07/22/24 21:03 Montelukast Sodium 10 Mg Tablet PO 10 mg HS SOLITARIO Administration Olmesartan 40 mg 07/03/24 09:00 07/22/24 09:00 Olmesartan Medoxomil 20 Mg Tablet PO 40 mg DAILY SOLITARIO Administration Pantoprazole Sodium 40 mg 07/09/24 12:35 07/22/24 21:03 Pantoprazole Sodium Iv 40 Mg Vial IV PUSH 40 mg Q12HR SOLITARIO Administration Saccharomyces Boulardii 250 mg 07/22/24 17:00 07/22/24 17:16 Saccharomyces Boulardii 250 Mg Capsule PO 250 mg BID SOLITARIO Administration Sodium Bicarbonate 650 mg 07/16/24 17:00 07/22/24 17:17 Sodium Bicarbonate Tab 650 Mg Tablet PO 650 mg TID SOLITARIO Administration Sodium Chloride 20 ml 07/04/24 16:15 07/23/24 05:43 Central Line Flush IV PUSH 20 ml PRN PRN Administration after blood draws Sodium Chloride 10 ml 07/04/24 16:15 Central Line Flush IV PUSH PRN PRN with TPN bag changes Sodium Chloride 10 ml 07/04/24 22:00 07/23/24 05:43 Central Line Flush IV PUSH 10 ml Q8HR SOLITARIO Administration Trazodone HCl 100 mg 07/11/24 21:00 07/22/24 21:03 Trazodone Hcl 50 Mg Tablet PO 100 mg HS SOLITARIO Administration Vancomycin HCl 125 mg 07/20/24 18:00 07/23/24 05:40 Vancomycin Hcl 125 Mg Oral Capsule PO 07/30/24 17:59 125 mg Q6HR SOLITARIO Administration Radiology Results: ITS Impressions Head CT 07/02/24 14:34 IMPRESSION: 1. Normal aging brain. Abdomen/Pelvis CT 07/02/24 14:36 IMPRESSION: 1. Persistent small collection of extra luminal gas in the left lower quadrant anterior abdominal wall immediately adjacent to a region of inflammatory stranding surrounding the descending colon consistent with diverticulitis. No abscess or more remote free intraperineal gas or fluid. 2. Persistent moderate-sized bilateral posterior layering pleural effusions with dependent compressive atelectasis in the visualized lower lobes. Brain MRI 07/04/24 11:30 IMPRESSION: 1. 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 2. 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 3. Diffuse pachymeningeal enhancement. This finding is most commonly secondary to prior lumbar puncture or spine procedure. ADDENDUM: 07/04/24 1216 The contrast volume was 20 mL MultiHance. Venous Doppler Study 07/05/24 14:17 IMPRESSION: 1. Extensive deep vein thrombosis in right lower limb. I called this result to Elsy Tao. Chest X-Ray 07/17/24 18:28 IMPRESSION: 1. Airspace opacities at left lung base, consistent with atelectasis versus pneumonia. 2. Small left pleural effusion. Labs Labs: Laboratory Results - last 24 hr 07/22/24 07/22/24 07/22/24 11:33 17:00 21:05 WBC RBC Hgb Hct MCV MCH MCHC RDW Plt Count MPV Sodium Potassium Chloride Carbon Dioxide Anion Gap BUN Creatinine Estim Creat Clear Calc Estimated GFR Glucose POC Capillary Glucose 93 99 112 H Calcium Total Bilirubin AST ALT Alkaline Phosphatase Total Protein Albumin 07/23/24 07/23/24 05:49 07:53 WBC 8.4 RBC 3.44 L Hgb 10.6 L Hct 33.4 L MCV 97.1 MCH 30.8 MCHC 31.7 L RDW 20.5 H Plt Count 221 MPV 11.2 H Sodium 143 Potassium 3.4 Chloride 111 H Carbon Dioxide 24 Anion Gap 8 BUN 17 Creatinine 0.97 Estim Creat Clear Calc 51 Estimated GFR 56 L Glucose 90 POC Capillary Glucose 103 Calcium 7.9 L Total Bilirubin 0.8 AST 40 H ALT 20 Alkaline Phosphatase 165 H Total Protein 5.0 L Albumin 2.2 L Quality VTE Prophylaxis VTE prophylaxis: pharmacologic ordered Hospitalist MIPS Advance Care Plan I have confirmed that the patient's Advanced Care Plan is present, code status is documented, or surrogate decision maker is listed in patient medical record.: Yes Medication Reconciliation I have utilized all available resources to obtain, update and review the pat ients current medications (includes all prescriptions, OTC, herbals, cannabis, and nutritional supplements).: Yes
[2024-07-23] MEDS: PANTOPRAZOLE SODIUM IV 40 MG VIAL IV PUSH ×2 (08:54→21:12)
[2024-07-23] MEDS: LIDOCAINE 5% PATCH 1 PATCH TRANSDERM (08:54)
[2024-07-23] MEDS: FOLIC ACID 1 MG TABLET PO (08:55)
[2024-07-23] MEDS: SODIUM BICARBONATE TAB 650 MG TABLET PO ×3 (08:56→17:27)
[2024-07-23] MEDS: ATORVASTATIN 40 MG TABLET 80 MG PO (08:57)
[2024-07-23] MEDS: levETIRAcetam 500 MG TABLET PO ×2 (08:57→21:12)
[2024-07-23] MEDS: SACCHAROMYCES BOULARDII 250 MG CAPSULE PO ×2 (08:57→17:27)
[2024-07-23] MEDS: OLMESARTAN MEDOXOMIL 20 MG TABLET 40 MG PO (08:58)
[2024-07-23] MEDS: FERROUS SULFATE 325 MG TABLET DR PO (08:58)
[2024-07-23] MEDS: METOPROLOL TARTRATE 50 MG TAB PO ×2 (08:58→21:12)
[2024-07-23] MEDS: MAGNESIUM OXIDE 400 MG TABLET PO ×2 (09:00→17:27)
[2024-07-23] MEDS: CALCIUM CARBONATE (OSCAL) 500 MG TABLET PO ×2 (09:00→17:27)
[2024-07-23] MEDS: APIXABAN 5 MG TABLET PO ×2 (09:00→21:12)
[2024-07-23] MEDS: CYANOCOBALAMIN 1,000 MCG TABLET 1000 MCG PO (09:01)
[2024-07-23] MEDS: guaiFENesin 12 HR 600 MG TABCR 1200 MG PO ×2 (09:01→21:12)
--- NOTE | 2024-07-23 10:52 | PCPTNOTE ---
PT reeval this date with update of goals and plan of care
[2024-07-23 12:04] LABS: Glucose Point of Care 98 mg/dl (65-105)
--- NOTE | 2024-07-23 12:24 | WPDNEUROPN ---
Subjective Date/time seen: 07/23/24 12:24 Interval history: 73 years old initially seen on July 03, 2024 for an unresponsive episode and with negative CT scan of the head for the bleed or hydrocephalus patient was witnessed to have a seizure in the emergency room and was loaded with Keppra in the emergency room with subsequent maintenance dosage. Initial exam was with no spontaneous movements but responding to verbal commands by shaking her head and speech of low volume, consideration was given to the unresponsive episode likely secondary to seizure, EEG was also abnormal due to the presence of excessive amount of slow activity though no paroxysmal discharge was noted. Subsequent MRI on 07/04 has documented acute infarct in left frontoparietal deep white matter, in addition to the raising the possibility of posterior reversible encephalopathy syndrome also because of increased signal intensity in the parietal and occipital lobe subcortically. Patient was already started on levetiracetam 500mg q.12 hours in addition patient is also receiving atorvastatin 80mg daily, apixaban 5mg q.12 hours, echocardiogram has already been done. Patient is receiving Eliquis for DVT prophylaxis that is why currently aspirin is on hold but subsequently Eliquis has been continued. Objective Data Vital Signs Vital Signs: Vital Signs - 24 hr 07/22/24 14:00 07/22/24 20:00 07/22/24 21:03 Temperature 35.9 C L Pulse Rate 87 104 H 104 H Respiratory Rate 20 20 Blood Pressure 140/56 L Pulse Oximetry 100 100 Oxygen Delivery Room Air Fraction of Inspired Oxygen 21 07/22/24 22:00 07/23/24 06:00 07/23/24 08:00 Temperature 37.4 C 36.7 C Pulse Rate 104 H 99 100 Respiratory Rate 18 18 Blood Pressure 133/72 151/74 H Pulse Oximetry 100 96 100 Oxygen Delivery Room Air Fraction of Inspired Oxygen 07/23/24 08:58 Temperature Pulse Rate 100 Respiratory Rate Blood Pressure Pulse Oximetry Oxygen Delivery Fraction of Inspired Oxygen Intake/Output Intake/Output: Intake & Output 07/20/24 07/21/24 07/22/24 07/23/24 23:59 23:59 23:59 23:59 Intake Total 1130 689 580 150 Output Total 850 350 300 300 Balance 280 339 280 -150 Meds/Results Medications: Active Medications Generic Name Dose Route Start Last Admin Trade Name Freq PRN Reason Stop Dose Admin Acetaminophen 1,000 mg 07/11/24 16:52 07/23/24 05:40 Acetaminophen 500 Mg Tablet PO 1,000 mg Q6H PRN Administration Mild Pain (1-3) or Fever Albuterol/Ipratropium 3 ml 07/19/24 17:28 Ipratropium 0.5 Mg/Albuterol Sulfate 2.5 Mg Ampul.Neb 3 Ml INHALATION Q6HRT PRN Wheezing Apixaban 5 mg 07/12/24 21:00 07/23/24 09:00 Apixaban 5 Mg Tablet PO 5 mg Q12HR [facility]ITAR[facility] Administration Atorvastatin Calcium 80 mg 07/04/24 21:00 07/23/24 08:57 Atorvastatin 40 Mg Tablet PO 80 mg DAILY [facility] Administration Calcium Carbonate 500 mg 07/14/24 08:00 07/23/24 09:00 Calcium Carbonate (Oscal) 500 Mg Tablet PO 500 mg BIDWM [facility] Administration Cyanocobalamin 1,000 mcg 07/12/24 09:00 07/23/24 09:01 Cyanocobalamin 1,000 Mcg Tablet PO 1,000 mcg DAILY [facility] Administration Dextrose 12.5 gm 07/20/24 16:44 Dextrose 50% 25 Gm/50 Ml Syringe IV PUSH PRN PRN Hypoglycemia Protocol Ferrous Sulfate 325 mg 07/15/24 09:00 07/23/24 08:58 Ferrous Sulfate [address] PO 325 mg DAILY [facility] Administration Folic Acid 1 mg 07/03/24 09:00 07/23/24 08:55 Folic Acid 1 Mg Tablet PO 1 mg DAILY [facility] Administration Glucagon 1 mg 07/20/24 16:44 Glucagon For Inj 1 Mg Vial IM PRN PRN Hypoglycemia Protocol Glucose 15 gm 07/20/24 16:44 07/20/24 17:02 Glucose Oral Gel 15 Gm Of Glucse In 37.5 Gm Tube PO 15 gm PRN PRN Administration Hypoglycemia Protocol Guaifenesin 1,200 mg 07/11/24 21:00 07/23/24 09:01 Guaifenesin 12 Hr 600 Mg Tabcr PO 1,200 mg Q12HR [facility] Administration Dextrose 1,000 mls @ 100 mls/hr 07/20/24 16:44 Dextrose 5% 1,000 Ml IVPB PRN PRN Hypoglycemia Protocol Levetiracetam 500 mg 07/03/24 12:30 07/23/24 08:57 Levetiracetam 500 Mg Tablet PO 500 mg Q12HR [facility] Administration Levothyroxine Sodium 75 mcg 07/03/24 06:30 07/23/24 05:40 Levothyroxine Sodium 75 Mcg Tablet PO 75 mcg DAILY@0630 [facility] Administration Lidocaine 1 patch 07/12/24 09:00 07/23/24 08:54 Lidocaine 5% Patch TRANSDERM 1 patch DAILY [facility] Administration Magnesium Oxide 400 mg 07/06/24 17:00 07/23/24 09:00 Magnesium Oxide 400 Mg Tablet PO 400 mg BID [facility] Administration Metoprolol Tartrate 50 mg 07/03/24 09:00 07/23/24 08:58 Metoprolol Tartrate 50 Mg Tab PO 50 mg Q12HR [facility] Administration Miscellaneous Information 1 each 07/19/24 00:01 Vancomycin 125 Mg Capsule Needs To Be Renewed Or It Will Automatically Discontinue. XX 08/18/24 00:00 [facility] Miscellaneous Information 1 each 07/20/24 00:01 Tramadol Needs To Be Renewed Or It Will Automatically Discontinue. XX 08/19/24 00:00 [facility] Montelukast Sodium 10 mg 07/03/24 00:15 07/22/24 21:03 Montelukast Sodium 10 Mg Tablet PO 10 mg HS [facility] Administration Olmesartan 40 mg 07/03/24 09:00 07/23/24 08:58 Olmesartan Medoxomil 20 Mg Tablet PO 40 mg DAILY [facility] Administration Pantoprazole Sodium 40 mg 07/09/24 12:35 07/23/24 08:54 Pantoprazole Sodium Iv 40 Mg Vial IV PUSH 40 mg Q12HR [facility] Administration Saccharomyces Boulardii 250 mg 07/22/24 17:00 07/23/24 08:57 Saccharomyces Boulardii 250 Mg Capsule PO 250 mg BID [facility] Administration Sodium Bicarbonate 650 mg 07/16/24 17:00 07/23/24 11:59 Sodium Bicarbonate Tab 650 Mg Tablet PO 650 mg TID [facility] Administration Sodium Chloride 20 ml 07/04/24 16:15 07/23/24 05:43 Central Line Flush IV PUSH 20 ml PRN PRN Administration after blood draws Sodium Chloride 10 ml 07/04/24 16:15 Central Line Flush IV PUSH PRN PRN with TPN bag changes Sodium Chloride 10 ml 07/04/24 22:00 07/23/24 05:43 Central Line Flush IV PUSH 10 ml Q8HR [facility] Administration Trazodone HCl 100 mg 07/11/24 21:00 07/22/24 21:03 Trazodone Hcl 50 Mg Tablet PO 100 mg HS [facility] Administration Vancomycin HCl 125 mg 07/20/24 18:00 07/23/24 11:55 Vancomycin Hcl 125 Mg Oral Capsule PO 07/30/24 17:59 125 mg Q6HR [facility] Administration Radiology Results: ITS Impressions Head CT 07/02/24 14:34 IMPRESSION: 1. Normal aging brain. Abdomen/Pelvis CT 07/02/24 14:36 IMPRESSION: 1. Persistent small collection of extra luminal gas in the left lower quadrant anterior abdominal wall immediately adjacent to a region of inflammatory stranding surrounding the descending colon consistent with diverticulitis. No abscess or more remote free intraperineal gas or fluid. 2. Persistent moderate-sized bilateral posterior layering pleural effusions with dependent compressive atelectasis in the visualized lower lobes. Brain MRI 07/04/24 11:30 IMPRESSION: 1. 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 2. 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 3. Diffuse pachymeningeal enhancement. This finding is most commonly secondary to prior lumbar puncture or spine procedure. ADDENDUM: 07/04/24 1216 The contrast volume was 20 mL MultiHance. Venous Doppler Study 07/05/24 14:17 IMPRESSION: 1. Extensive deep vein thrombosis in right lower limb. I called this result to Elsy Tao. Chest X-Ray 07/17/24 18:28 IMPRESSION: 1. Airspace opacities at left lung base, consistent with atelectasis versus pneumonia. 2. Small left pleural effusion. Labs Labs: Laboratory Results - last 24 hr 07/22/24 07/22/24 07/23/24 17:00 21:05 05:49 WBC 8.4 RBC 3.44 L Hgb 10.6 L Hct 33.4 L MCV 97.1 MCH 30.8 MCHC 31.7 L RDW 20.5 H Plt Count 221 MPV 11.2 H Sodium 143 Potassium 3.4 Chloride 111 H Carbon Dioxide 24 Anion Gap 8 BUN 17 Creatinine 0.97 Estim Creat Clear Calc 51 Estimated GFR 56 L Glucose 90 POC Capillary Glucose 99 112 H Calcium 7.9 L Total Bilirubin 0.8 AST 40 H ALT 20 Alkaline Phosphatase 165 H Total Protein 5.0 L Albumin 2.2 L 07/23/24 07/23/24 07:53 11:40 WBC RBC Hgb Hct MCV MCH MCHC RDW Plt Count MPV Sodium Potassium Chloride Carbon Dioxide Anion Gap BUN Creatinine Estim Creat Clear Calc Estimated GFR Glucose POC Capillary Glucose 103 98 Calcium Total Bilirubin AST ALT Alkaline Phosphatase Total Protein Albumin
--- NOTE | 2024-07-23 14:44 | WPDGIPROGNO ---
Progress Note: A&P Assessment and Plan (1) C. difficile diarrhea: Code(s): A04.72 - Enterocolitis due to Clostridium difficile, not specified as recurrent Status: Acute Assessment and Plan: recurrent infection, currently on vancomycin taper (per records she received dificid) plan is to complete taper and give vowst in the office to prevent new episode will follow as needed (2) Occult blood in stools: Code(s): R19.5 - Other fecal abnormalities Status: Acute Assessment and Plan: multifactorial greenish stool, no blood ok to remove rectal tube (3) CVA (cerebral vascular accident): Code(s): I63.9 - Cerebral infarction, unspecified Status: Acute (4) Acute on chronic anemia: Code(s): D64.9 - Anemia, unspecified Status: Acute (5) Seizure: Code(s): R56.9 - Unspecified convulsions Status: Acute Subjective Date/time seen: 07/23/24 14:44 Interval history: she is comfortable denies diarrhea but she still has rectal tube- asking if can be removed Review of Systems Review of Systems: All systems reviewed & are unremarkable except as noted in HPI and below Exam Const: General: comfortable Other: chronically ill appearing HENMT: Face/Nose/Sinus: Normal nares present Eyes: General: appearance normal, both eyes and all related structures Neck: Neck: supple Resp: Effort & Inspection: normal respiratory effort Cardio: Rate: regular rate GI: GI Palp: Yes Soft to palpation and No Tenderness to palpation present (GI) Other: rectal tube Skin: Other: few bruises in arms Neuro: Speech: normal speech Extrem: General: normal to inspection Psych: Affect: normal affect Objective Data Vital Signs Vital Signs: Vital Signs - 24 hr 07/22/24 20:00 07/22/24 21:03 07/22/24 22:00 Temperature 99.3 F Pulse Rate 104 H 104 H 104 H Respiratory Rate 20 18 Blood Pressure 133/72 Pulse Oximetry 100 100 Oxygen Delivery Room Air Fraction of Inspired Oxygen 07/23/24 06:00 07/23/24 08:00 07/23/24 08:58 Temperature 98.0 F Pulse Rate 99 100 100 Respiratory Rate 18 Blood Pressure 151/74 H Pulse Oximetry 96 100 Oxygen Delivery Room Air Fraction of Inspired Oxygen 07/23/24 14:00 Temperature 98.0 F Pulse Rate 101 H Respiratory Rate 20 Blood Pressure 136/79 Pulse Oximetry 97 Oxygen Delivery Fraction of Inspired Oxygen Intake/Output Intake/Output: Intake & Output 07/20/24 07/21/24 07/22/24 07/23/24 23:59 23:59 23:59 23:59 Intake Total 1130 689 580 150 Output Total 850 350 300 300 Balance 280 339 280 -150 Meds/Results Medications: Active Medications Generic Name Dose Route Start Last Admin Trade Name Freq PRN Reason Stop Dose Admin Acetaminophen 1,000 mg 07/11/24 16:52 07/23/24 05:40 Acetaminophen 500 Mg Tablet PO 1,000 mg Q6H PRN Administration Mild Pain (1-3) or Fever Albuterol/Ipratropium 3 ml 07/19/24 17:28 Ipratropium 0.5 Mg/Albuterol Sulfate 2.5 Mg Ampul.Neb 3 Ml INHALATION Q6HRT PRN Wheezing Apixaban 5 mg 07/12/24 21:00 07/23/24 09:00 Apixaban 5 Mg Tablet PO 5 mg Q12HR [facility] Administration Atorvastatin Calcium 80 mg 07/04/24 21:00 07/23/24 08:57 Atorvastatin 40 Mg Tablet PO 80 mg DAILY [facility] Administration Calcium Carbonate 500 mg 07/14/24 08:00 07/23/24 09:00 Calcium Carbonate (Oscal) 500 Mg Tablet PO 500 mg BIDWM [facility] Administration Cyanocobalamin 1,000 mcg 07/12/24 09:00 07/23/24 09:01 Cyanocobalamin 1,000 Mcg Tablet PO 1,000 mcg DAILY [facility] Administration Dextrose 12.5 gm 07/20/24 16:44 Dextrose 50% 25 Gm/50 Ml Syringe IV PUSH PRN PRN Hypoglycemia Protocol Ferrous Sulfate 325 mg 07/15/24 09:00 07/23/24 08:58 Ferrous Sulfate [address] PO 325 mg DAILY [facility] Administration Folic Acid 1 mg 07/03/24 09:00 07/23/24 08:55 Folic Acid 1 Mg Tablet PO 1 mg DAILY [facility] Administration Glucagon 1 mg 07/20/24 16:44 Glucagon For Inj 1 Mg Vial IM PRN PRN Hypoglycemia Protocol Glucose 15 gm 07/20/24 16:44 07/20/24 17:02 Glucose Oral Gel 15 Gm Of Glucse In 37.5 Gm Tube PO 15 gm PRN PRN Administration Hypoglycemia Protocol Guaifenesin 1,200 mg 07/11/24 21:00 07/23/24 09:01 Guaifenesin 12 Hr 600 Mg Tabcr PO 1,200 mg Q12HR [facility] Administration Dextrose 1,000 mls @ 100 mls/hr 07/20/24 16:44 Dextrose 5% 1,000 Ml IVPB PRN PRN Hypoglycemia Protocol Levetiracetam 500 mg 07/03/24 12:30 07/23/24 08:57 Levetiracetam 500 Mg Tablet PO 500 mg Q12HR [facility] Administration Levothyroxine Sodium 75 mcg 07/03/24 06:30 07/23/24 05:40 Levothyroxine Sodium 75 Mcg Tablet PO 75 mcg DAILY@0630 [facility] Administration Lidocaine 1 patch 07/12/24 09:00 07/23/24 08:54 Lidocaine 5% Patch TRANSDERM 1 patch DAILY [facility] Administration Magnesium Oxide 400 mg 07/06/24 17:00 07/23/24 09:00 Magnesium Oxide 400 Mg Tablet PO 400 mg BID [facility] Administration Metoprolol Tartrate 50 mg 07/03/24 09:00 07/23/24 08:58 Metoprolol Tartrate 50 Mg Tab PO 50 mg Q12HR [facility] Administration Miscellaneous Information 1 each 07/19/24 00:01 Vancomycin 125 Mg Capsule Needs To Be Renewed Or It Will Automatically Discontinue. XX 08/18/24 00:00 [facility] Miscellaneous Information 1 each 07/20/24 00:01 Tramadol Needs To Be Renewed Or It Will Automatically Discontinue. XX 08/19/24 00:00 [facility] Montelukast Sodium 10 mg 07/03/24 00:15 07/22/24 21:03 Montelukast Sodium 10 Mg Tablet PO 10 mg HS [facility] Administration Olmesartan 40 mg 07/03/24 09:00 07/23/24 08:58 Olmesartan Medoxomil 20 Mg Tablet PO 40 mg DAILY [facility] Administration Pantoprazole Sodium 40 mg 07/09/24 12:35 07/23/24 08:54 Pantoprazole Sodium Iv 40 Mg Vial IV PUSH 40 mg Q12HR [facility] Administration Saccharomyces Boulardii 250 mg 07/22/24 17:00 07/23/24 08:57 Saccharomyces Boulardii 250 Mg Capsule PO 250 mg BID [facility] Administration Sodium Bicarbonate 650 mg 07/16/24 17:00 07/23/24 11:59 Sodium Bicarbonate Tab 650 Mg Tablet PO 650 mg TID [facility] Administration Sodium Chloride 20 ml 07/04/24 16:15 07/23/24 05:43 Central Line Flush IV PUSH 20 ml PRN PRN Administration after blood draws Sodium Chloride 10 ml 07/04/24 16:15 Central Line Flush IV PUSH PRN PRN with TPN bag changes Sodium Chloride 10 ml 07/04/24 22:00 07/23/24 13:21 Central Line Flush IV PUSH 10 ml Q8HR [facility] Administration Trazodone HCl 100 mg 07/11/24 21:00 07/22/24 21:03 Trazodone Hcl 50 Mg Tablet PO 100 mg HS [facility] Administration Vancomycin HCl 125 mg 07/20/24 18:00 07/23/24 11:55 Vancomycin Hcl 125 Mg Oral Capsule PO 07/30/24 17:59 125 mg Q6HR [facility] Administration Radiology Results: ITS Impressions Head CT 07/02/24 14:34 IMPRESSION: 1. Normal aging brain. Abdomen/Pelvis CT 07/02/24 14:36 IMPRESSION: 1. Persistent small collection of extra luminal gas in the left lower quadrant anterior abdominal wall immediately adjacent to a region of inflammatory stranding surrounding the descending colon consistent with diverticulitis. No abscess or more remote free intraperineal gas or fluid. 2. Persistent moderate-sized bilateral posterior layering pleural effusions with dependent compressive atelectasis in the visualized lower lobes. Brain MRI 07/04/24 11:30 IMPRESSION: 1. 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 2. 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 3. Diffuse pachymeningeal enhancement. This finding is most commonly secondary to prior lumbar puncture or spine procedure. ADDENDUM: 07/04/24 1216 The contrast volume was 20 mL MultiHance. Venous Doppler Study 07/05/24 14:17 IMPRESSION: 1. Extensive deep vein thrombosis in right lower limb. I called this result to Elsy Tao. Chest X-Ray 07/17/24 18:28 IMPRESSION: 1. Airspace opacities at left lung base, consistent with atelectasis versus pneumonia. 2. Small left pleural effusion. Labs Labs: Laboratory Results - last 24 hr 07/22/24 07/22/24 07/23/24 17:00 21:05 05:49 WBC 8.4 RBC 3.44 L Hgb 10.6 L Hct 33.4 L MCV 97.1 MCH 30.8 MCHC 31.7 L RDW 20.5 H Plt Count 221 MPV 11.2 H Sodium 143 Potassium 3.4 Chloride 111 H Carbon Dioxide 24 Anion Gap 8 BUN 17 Creatinine 0.97 Estim Creat Clear Calc 51 Estimated GFR 56 L Glucose 90 POC Capillary Glucose 99 112 H Calcium 7.9 L Total Bilirubin 0.8 AST 40 H ALT 20 Alkaline Phosphatase 165 H Total Protein 5.0 L Albumin 2.2 L 07/23/24 07/23/24 07:53 11:40 WBC RBC Hgb Hct MCV MCH MCHC RDW Plt Count MPV Sodium Potassium Chloride Carbon Dioxide Anion Gap BUN Creatinine Estim Creat Clear Calc Estimated GFR Glucose POC Capillary Glucose 103 98 Calcium Total Bilirubin AST ALT Alkaline Phosphatase Total Protein Albumin
[2024-07-23 16:52] LABS: Glucose Point of Care 95 mg/dl (65-105)
[2024-07-23] MEDS: traZODone HCL 50 MG TABLET 100 MG PO (21:13)
[2024-07-23] MEDS: MONTELUKAST SODIUM 10 MG TABLET PO (21:13)
[2024-07-23 21:21] LABS: Glucose Point of Care 93 mg/dl (65-105)
[2024-07-24] MEDS: ACETAMINOPHEN 500 MG TABLET 1000 MG PO (03:09)
[2024-07-24] MEDS: LEVOTHYROXINE SODIUM 75 MCG TABLET PO (05:48)
[2024-07-24] MEDS: VANCOMYCIN HCL 125 MG ORAL CAPSULE PO ×3 (05:48→17:51)
[2024-07-24] MEDS: CENTRAL LINE FLUSH 20 ML IV PUSH (05:49)
[2024-07-24] MEDS: CENTRAL LINE FLUSH 10 ML IV PUSH ×3 (05:49→21:43)
[2024-07-24 06:00] VITALS: BP 144/62; PULSE 85; RESP 16; TEMP 36.1; O2SAT 100
[2024-07-24 06:13] LABS: Hematocrit 28.2 % (37.0-47.0); Hemoglobin 8.9 g/dL (12.0-15.0); Mean Corpuscular HGB Conc 31.6 g/dl (32-36); Mean Corpuscular Hemoglobin 30.5 pg (26-34); Mean Corpuscular Volume 96.6 fl (80-100); Mean Platelet Volume 10.8 fl (7.4-10.4); Platelet Count Result 171 k/mm3 (150-375); Red Blood Count 2.92 M/mm3 (4.2-5.4); Red Cell Distribution Width 20.3 % (11.5-14.5); White Blood Count 5.6 K/mm3 (4.5-10.0)
[2024-07-24 06:29] LABS: Alanine Aminotransferase 17 U/L (6-35); Albumin Level 1.9 g/dL (3.5-5.1); Alkaline Phosphatase 134 U/L (38-126); Anion Gap 4 mmol/L (4-12); Aspartate Amino Transferase 35 U/L (14-36); Bilirubin,Total 0.6 mg/dL (0.2-1.3); Blood Urea Nitrogen 19 mg/dL (7-17); Calcium 7.7 mg/dL (8.4-10.2); Carbon Dioxide 26 mmol/L (22-30); Chloride 111 mmol/L (98-107); Estimated CRCL calculation 51 ml/min; Estimated Glomerular Filt Rate 56; Glucose 75 mg/dL (65-110); Potassium 3.2 mmol/L (3.4-5.0); Sodium 141 mmol/L (137-145)
[2024-07-24 08:11] LABS: Glucose Point of Care 85 mg/dl (65-105)
--- NOTE | 2024-07-24 09:33 | P.PNIM_ITS ---
Progress Note: A&P Assessment and Plan (1) CVA (cerebral vascular accident): Code(s): I63.9 - Cerebral infarction, unspecified Status: Acute Assessment and Plan: 07/11/24: * MRA of brain showing acute infarct in the left frontoparietal lobe in the deep white matter * Left lower extremity weakness * PT and OT ordered * Continue atorvastatin, Plavix * Aspirin currently on hold as she is on Eliquis for DVT prophylaxis * A Neurology following 07/15 * continue Eliquis * neurology following 07/16 * No change 07/20 - Stable. On atorvastatin. Asa/plavix previously held. Apixaban resumed. (2) Seizure: Code(s): R56.9 - Unspecified convulsions Status: Acute Assessment and Plan: 07/11 * New onset * CT of the head was negative * MRI showing acute infarct in the left frontoparietal lobe in deep white matter * EEG findings abnormal read, cannot rule out seizure activity * Continue atorvastatin, Plavix * Will hold baby aspirin considering patient is on Eliquis * Continue Keppra * Continue seizure precautions * Cardiac telemetry stable, we will go ahead and discontinue continuous telemetry * Move out of IMU to regular med surge floor 07/15 * continue neuro checks * continue seizure precautions * continue Keppra, atorvastatin, Plavix * neurology following 07/16 * no change 07/18-07/20 - No new seizure activity. - Cont. keppra at 500mg bid. (3) C. difficile diarrhea: Code(s): A04.72 - Enterocolitis due to Clostridium difficile, not specified as recurrent Status: Acute Assessment and Plan: 07/11/24 * Continue vancomycin pulse dosing * Pulse taper vanc dose as follows: 125 mg orally 4 times daily for 10 to 14 days, then 125 mg orally twice daily for 7 days, then 125 mg orally once daily for 7 days, then 125 mg orally every 2 to 3 days for 2 to 8 weeks 07/15 * no change to current treatment plan 07/18 - Cont. current pulse/taper. Orders are in. 07/20: restarted Oral Vancomycin 07/21: patient completed 2 courses of fidaxomicin and Tapering dose of oral Vancomycin. Consulted GI for fecal microbiota transplantation Tested positive For C diff in November of 2021. Recent stool studies performed 06/21/2024 showed C diff positive. As per documentation patient received Dificid from 06/21-07/08. Started Vancomycin taper 07/08-07/19 and again started on Vancomycin taper on 07/20 [facility] accepted the patient for fecal transplant. Accepting hospitalist is and GI is (4) Diverticulitis of intestine with perforation without abscess: Qualifiers: Diverticulitis bleeding: without bleeding Diverticulitis site: large intestine Qualified Code(s): K57.20 - Diverticulitis of large intestine with perforation and abscess without bleeding Code(s): K57.80 - Diverticulitis of intestine, part unspecified, with perforation and abscess without bleeding Status: Acute Assessment and Plan: 07/11/24 * Failed Dificid * Continue oral vancomycin 07/15 * continue oral vancomycin 07/16 * No change 07/18 - Stable, completing oral vancomycin pulse/taper. 07/20: completed oral vancomycin Tested positive For C diff in November of 2021. Recent stool studies performed 06/21/2024 showed C diff positive. As per documentation patient received Dificid from 06/21-07/08. Started Vancomycin taper 07/08-07/19 and again started on Vancomycin taper on 07/20 (5) Anemia: Qualifiers: Anemia type: due to chronic kidney disease Chronic kidney disease stage: unspecified stage Qualified Code(s): N18.9 - Chronic kidney disease, unspecified; D63.1 - Anemia in chronic kidney disease Code(s): D64.9 - Anemia, unspecified Status: Acute Assessment and Plan: 07/11/24 * Continue to transfuse for hemoglobin less than 7 * Patient receive 1 unit of blood this admission * Currently on Eliquis, Plavix * Will hold aspirin * Continue to trend 07/15 * hemoglobin 7.5 * no change to current treatment plan 07/18 - S/P 2 units prbc overnight with improvement noted on overnight labs. - Resume anticoag. - GI had been consulted, not able to perform colonoscopy currently with diverticulitis, patient had previously refused as well. (6) Acute DVT (deep venous thrombosis): Code(s): I82.409 - Acute embolism and thrombosis of unspecified deep veins of unspecified lower extremity Status: Acute Assessment and Plan: 07/11/24 * Venous Doppler showing extensive right lower extremity DVT * Patient was started on Lovenox and then switched to heparin infusion on 07/09/2024. She later developed dark tarry stools and a drop in her hemoglobin requiring blood transfusion. Heparin drip was placed on hold for 24 hours and then she was restarted on Eliquis 10 mg daily x7 days--standard protocol * General surgery was consulted for IVC filter however she is not a candidate at this time due to her other comorbidities * Continue Eliquis as stated above 07/15 * continue Eliquis 07/16 * No change 07/18 - Eliquis held overnight d/t needing two units prbc. - Stable hgb resuming eliquis. 07/20: Resumed Eliquis. Will monitor H and H (7) Occult blood in stools: Code(s): R19.5 - Other fecal abnormalities Status: Acute Assessment and Plan: 07/11/24 * Patient was occult blood positive on 07/09/2024 * She was given 1 unit of blood * H&H is stable * GI recommending outpatient colonoscopy considering her comorbidities * Recently diagnosed with diverticulitis and C diff colitis 07/15 * hemoglobin 7.5 * continue to trend 07/16 * No change 07/18 - Transfused two units prbc overnight with appropriate rise in hgb on repeat labs overnight. - Apixaban will resume. (8) Delirium: Code(s): R41.0 - Disorientation, unspecified Status: Acute Assessment and Plan: 07/15 * more confused today * continue neuro checks * encourage good sleep hygiene 07/16 * continue neuro checks * currently alert and oriented x3 07/18 - Drowsy this am but rousable and and answers questions. Improved later in the am. No focal deficits. - Cont. to monitor closely for developing infection - post influenza pna, UTI, etc. Check urine this am, pending. - Treating for pna. (9) Pneumonia: Code(s): J18.9 - Pneumonia, unspecified organism Status: Acute Assessment and Plan: 07/18 - Slightly less oriented than reported from day prior this morning, improving in the late morning, cxr shows infiltrate. Plan to start ceftriaxone/zithromycin today day 1. (10) Upper respiratory infection: Code(s): J06.9 - Acute upper respiratory infection, unspecified Status: Acute Assessment and Plan: 07/11/24 * Patient reported cold-like symptoms with a nonproductive cough and wheezing * Will check for influenza a and B, RSV, COVID * Start DuoNebs q.6 hour * Will obtain chest x-ray * Incentive spirometry while awake * Pep therapy with cornet flutter valve 07/15 * no change to current treatment plan 07/17 * Chest x-ray ordered * Still coarse rhonchi * Patient finished course Tamiflu for influenza a * Continue incentive spirometry and pep therapy 07/18 - Completed tamiflu, breathing easily. Lungs diminished bilaterally with slightly coarse rales in the right. (11) Urinary retention: Code(s): R33.9 - Retention of urine, unspecified Status: Acute Assessment and Plan: 07/11/24: * Patient had acute urinary retention requiring Fitzpatrick on 07/03/24 * Urology was consulted * Patient failed voiding trial * Patient will keep catheter and repeat voiding trial in 1-2 weeks on an outpatient basis with Urology 07/15 * no change to current treatment plan 07/18 - Catheter in place, consider trial of voiding 07/25 at the two week kelly. (12) Hypokalemia: Code(s): E87.6 - Hypokalemia Status: Acute Assessment and Plan: 07/11/24: * Potassium 4.3 * No need for replacement * Resolved 07/15 * potassium 3.5 * no replacement needed 07/16 * potassium 3.7 * no replacement needed (13) Hypothyroidism: Qualifiers: Hypothyroidism type: unspecified Qualified Code(s): E03.9 - Hypothyroi dism, unspecified Code(s): E03.9 - Hypothyroidism, unspecified Status: Chronic Assessment and Plan: 07/11/24 * Continue Synthroid 07/15 * no change to current treatment plan 07/18 - Cont. current. (14) Hypertension: Qualifiers: Hypertension type: primary hypertension Qualified Code(s): I10 - Essential (primary) hypertension Code(s): I10 - Essential (primary) hypertension Status: Chronic Assessment and Plan: -Blood pressure ranging 105/ 81 to 146/73 - Continue metoprolol, Benicar and monitor. -no change to current treatment plan -BP generally 130-140, trending higher this am, consider uptitration if trend continues. (15) Dysphagia: Qualifiers: Dysphagia type: esophageal phase Qualified Code(s): R13.19 - Other dysphagia Code(s): R13.10 - Dysphagia, unspecified Status: Acute Assessment and Plan: Last EGD with dilation 05/15/2024 revealed a small hiatal hernia but no findings to explain symptoms. Following her EGD esophageal manometry was recommended to rule out achalasia but this was not arranged. Patient states that for the past 2 months she has been having postprandial nausea and vomiting. She is still having intermittent swallowing difficulty with solids, liquids, and pills. * esophagram ordered, if workup is unremarkable and symptoms persist we can arrange an esophageal manometry or endo flip as outpatient * continue supportive care with antiemetics Plan Melissa Tom is a 73 year old female initially presenting with AMS found to have CVA and seizure with failed o/p management of c.diff/diverticulitis. Complicated hospital course with acute VTE of the lower ext, anemia requiring transfusions, most recent 2 units on 07/17/24. She has developed urinary retention and fitzpatrick has been in place. Completed tamiflu for influenza A yesterday - a focal infiltrate is now noted and patient less oriented. Abx for pna have been started today, 07/18/24. Subjective Date/time seen: 07/24/24 09:33 Interval history: Interval history:Melissa Tom is a 73 year old female hypertension, chronic obstructive pulmonary disease, obstructive sleep apnea intolerant to CPAP, hypothyroidism, gout, anxiety, and Clostridium difficile diarrhea who presented to the emergency department via EMS from [facility] for evaluation of altered mental status. Hospital course is complicated and initially presenting with AMS found to have CVA and seizure with failed o/p management of c.diff/diverticulitis. Complicated hospital course with acute CVA,acute VTE of the lower ext, anemia requiring transfusions, most recent 2 units on 07/17/24. She has developed urinary retention and fitzpatrick has been in place. Completed tamiflu for influenza A yesterday - a focal infiltrate is now noted and patient less oriented. Abx for pna have been started today, 07/18/24. -Tested positive For C diff in November of 2021. Recent stool studies performed 06/21/2024 showed C diff positive. As per documentation patient received Dificid from 06/21-07/08. Started Vancomycin taper 07/08-07/19 and again started on Vancomycin taper on 07/20 1)Patient was previously treated with Dificid which according to records she failed treatment. 2)She is currently on 2 nd time on vancomycin taper 125 mg orally 4 times daily for 10 to 14 days, 125 mg orally twice daily for 7 days, 125 mg orally once daily for 7 days, then 125 mg orally every 2 to 3 days for 2 to 8 weeks. 3) Patient states that she has been experiencing diarrhea for a few years but was worse recently but she was unable to provide any further details regarding bowel frequency. She states that over the past few months she has lost 30 lb without trying, current weight 209 lb. 07/23: Patient feels tired . She wants to know what happened to her and wanted t o call police. Discussed with GI and might need fecal transplant. Will [facility]. As per documentation patient received Dificid from 06/21-07/08. Started Vancomycin taper 07/08-07/19 and again started on Vancomycin taper on 07/20. 07/24: [facility] accepted the patient for fecal transplant. Accepting hospitalist is and GI is Review of Systems Review of Systems: All systems reviewed & are unremarkable except as noted in HPI and below Constitutional: Constitutional: Reports no additional constitutional complaints Eyes: Eyes: Reports no additional eye complaints ENT: Reports system reviewed and no additional complaints, except as documented Cardiovascular: Cardiovascular: Reports no additional cardiovascular complaints Respiratory: Respiratory: Reports no additional respiratory complaints Gastrointestinal: Gastrointestinal: Reports no additional gastrointestinal complaints and Reports diarrhea Genitourinary: Genitourinary: Reports no additional female genitourinary complaints Musculoskeletal: Musculoskeletal: Reports no additional musculoskeletal complaints Integumentary/Breasts: Skin/Breast: Reports system reviewed and no additional complaints, except as docu and Reports as per HPI Neurologic: Reports system reviewed and no additional complaints, except as documented Psychiatric: Psychiatric: Reports no additional psychiatric complaints and Reports as per HPI Endocrine: Endocrine: Reports no additional endocrine complaints and Reports as per HPI Hematologic/Lymphatic: Hematologic/Lymphatic: Reports no additional hematologic/lymphatic complaints and Reports as per HPI Allergic/Immunologic: Allergic/Immunologic: Reports no additional allergic/immunologic complaints and Reports as per HPI Exam Narrative: GENERAL APPEARANCE: Appears to be in no acute distress. HEAD: normocephalic atraumatic EYES: EOMI. ENT: Hearing grossly intact, no nasal discharge NECK: Neck supple, trachea midline. CARDIAC: Normal S1/S2. Rhythm is regular. No murmurs, rubs, or gallops. No cyanosis or pallor. Extremities are warm and well perfused. LUNGS: Clear to auscultation without rales, rhonchi, wheezing. Breath sounds are bilaterally diminished.. Respirations even and unlabored. ABDOMEN: BS positive x 4 quadrants. Soft, nondistended, nontender. No guarding or rebound. MSK: No joint tenderness/swelling, fair strength in all extremities. PERIPHERAL VASCULAR: Peripheral pulses palpable. Normal perfusion, cap refill <2 seconds. No edema. NEURO: Follows commands. No focal deficits.Drowsy this am but oriented to self and situation. SKIN: [place] without lesions or eruptions. PSYCH: Stable, Const: General: cooperative, no acute distress, alert, awake and obese Nutritional Appearance: obese Orientation/consciousness: oriented to person, oriented to place and oriented to time HENMT: Head: normal to inspection and normocephalic Eyes: General: appearance normal, both eyes and all related structures Neck: Neck: normal visual inspection, full ROM and no lymphadenopathy Chest: Chest palpation & inspection: normal inspection of the chest Resp: Effort & Inspection: normal respiratory effort, able to speak in complete sentences and Actively coughing Auscultation: clear to auscultation bilaterally and diminished lung sounds bilateral in the lower lung forbes Cardio: Jugular venous distension: no JVD Palpation: normal PMI Rate: regular rate Rhythm: regular rhythm Heart sounds: S1 normal heart sound present and S2 normal heart sound present GI: Inspection: normal to inspection Auscultation: High-pitched bowel sounds present and Hyperactive bowel sounds present Rectal Exam: other (rectal tube in place, liquid stool noted) Other: rectal tube in place and draining liquid stool Urinary Catheter: Urinary Catheter: patent and draining and urine clear Skin: General skin exam: normal color and no rashes or lesions noted Neuro: General: oriented to person, oriented to place, oriented to time, tone normal and moves all extremities Extrem: General: normal to inspection and full ROM Psych: Appearance: grossly normal Mental Status: mental status grossly normal Speech and movement: Normal speech and movement present Objective Data Vital Signs Vital Signs: Vital Signs - 24 hr 07/23/24 14:00 07/23/24 20:00 07/23/24 21:12 Temperature 98.0 F Pulse Rate 101 H 106 H 105 H Respiratory Rate 20 18 Blood Pressure 136/79 Pulse Oximetry 97 100 Oxygen Delivery Room Air Fraction of Inspired Oxygen 21 07/23/24 21:34 07/24/24 06:00 Temperature 98.6 F 97.0 F L Pulse Rate 106 H 85 Respiratory Rate 18 16 Blood Pressure 145/63 H 144/62 H Pulse Oximetry 100 100 Oxygen Delivery Fraction of Inspired Oxygen Intake/Output Intake/Output: Intake & Output 07/21/24 07/22/24 07/23/24 07/24/24 23:59 23:59 23:59 23:59 Intake Total 917 313 0617 100 Output Total 350 300 500 200 Balance 537 996 9354 -100 Meds/Results Medications: Active Medications Generic Name Dose Route Start Last Admin Trade Name Freq PRN Reason Stop Dose Admin Acetaminophen 1,000 mg 07/11/24 16:52 07/24/24 03:09 Acetaminophen 500 Mg Tablet PO 1,000 mg Q6H PRN Administration Mild Pain (1-3) or Fever Albuterol/Ipratropium 3 ml 07/19/24 17:28 Ipratropium 0.5 Mg/Albuterol Sulfate 2.5 Mg Ampul.Neb 3 Ml INHALATION Q6HRT PRN Wheezing Apixaban 5 mg 07/12/24 21:00 07/23/24 21:12 Apixaban 5 Mg Tablet PO 5 mg Q12HR SOLITARIO Administration Atorvastatin Calcium 80 mg 07/04/24 21:00 07/23/24 08:57 Atorvastatin 40 Mg Tablet PO 80 mg DAILY SOLITARIO Administration Calcium Carbonate 500 mg 07/14/24 08:00 07/23/24 17:27 Calcium Carbonate (Oscal) 500 Mg Tablet PO 500 mg BIDWM SOLITARIO Administration Cyanocobalamin 1,000 mcg 07/12/24 09:00 07/23/24 09:01 Cyanocobalamin 1,000 Mcg Tablet PO 1,000 mcg DAILY SOLITARIO Administration Dextrose 12.5 gm 07/20/24 16:44 Dextrose 50% 25 Gm/50 Ml Syringe IV PUSH PRN PRN Hypoglycemia Protocol Ferrous Sulfate 325 mg 07/15/24 09:00 07/23/24 08:58 Ferrous Sulfate [address] PO 325 mg DAILY SOLITARIO Administration Folic Acid 1 mg 07/03/24 09:00 07/23/24 08:55 Folic Acid 1 Mg Tablet PO 1 mg DAILY SOLITARIO Administration Glucagon 1 mg 02/22/25 16:44 Glucagon For Inj 1 Mg Vial IM PRN PRN Hypoglycemia Protocol Glucose 15 gm 07/20/24 16:44 07/20/24 17:02 Glucose Oral Gel 15 Gm Of Glucse In 37.5 Gm Tube PO 15 gm PRN PRN Administration Hypoglycemia Protocol Guaifenesin 1,200 mg 07/11/24 21:00 07/23/24 21:12 Guaifenesin 12 Hr 600 Mg Tabcr PO 1,200 mg Q12HR SOLITARIO Administration Dextrose 1,000 mls @ 100 mls/hr 07/20/24 16:44 Dextrose 5% 1,000 Ml IVPB PRN PRN Hypoglycemia Protocol Levetiracetam 500 mg 07/03/24 12:30 07/23/24 21:12 Levetiracetam 500 Mg Tablet PO 500 mg Q12HR SOLITARIO Administration Levothyroxine Sodium 75 mcg 07/03/24 06:30 07/24/24 05:48 Levothyroxine Sodium 75 Mcg Tablet PO 75 mcg DAILY@0630 SOLITARIO Administration Lidocaine 1 patch 07/12/24 09:00 07/23/24 08:54 Lidocaine 5% Patch TRANSDERM 1 patch DAILY SOLITARIO Administration Magnesium Oxide 400 mg 07/06/24 17:00 07/23/24 17:27 Magnesium Oxide 400 Mg Tablet PO 400 mg BID SOLITARIO Administration Metoprolol Tartrate 50 mg 07/03/24 09:00 07/23/24 21:12 Metoprolol Tartrate 50 Mg Tab PO 50 mg Q12HR SOLITARIO Administration Miscellaneous Information 1 each 07/19/24 00:01 Vancomycin 125 Mg Capsule Needs To Be Renewed Or It Will Automatically Discontinue. XX 08/18/24 00:00 [facility] Miscellaneous Information 1 each 07/20/24 00:01 Tramadol Needs To Be Renewed Or It Will Automatically Discontinue. XX 08/19/24 00:00 [facility] Montelukast Sodium 10 mg 07/03/24 00:15 07/23/24 21:13 Montelukast Sodium 10 Mg Tablet PO 10 mg HS SOLITARIO Administration Olmesartan 40 mg 07/03/24 09:00 07/23/24 08:58 Olmesartan Medoxomil 20 Mg Tablet PO 40 mg DAILY SOLITARIO Administration Pantoprazole Sodium 40 mg 07/09/24 12:35 07/23/24 21:12 Pantoprazole Sodium Iv 40 Mg Vial IV PUSH 40 mg Q12HR SOLITARIO Administration Saccharomyces Boulardii 250 mg 07/22/24 17:00 07/23/24 17:27 Saccharomyces Boulardii 250 Mg Capsule PO 250 mg BID SOLITARIO Administration Sodium Bicarbonate 650 mg 07/16/24 17:00 07/23/24 17:27 Sodium Bicarbonate Tab 650 Mg Tablet PO 650 mg TID SOLITARIO Administration Sodium Chloride 20 ml 07/04/24 16:15 07/24/24 05:49 Central Line Flush IV PUSH 20 ml PRN PRN Administration after blood draws Sodium Chloride 10 ml 07/04/24 16:15 Central Line Flush IV PUSH PRN PRN with TPN bag changes Sodium Chloride 10 ml 07/04/24 22:00 07/24/24 05:49 Central Line Flush IV PUSH 10 ml Q8HR SOLITARIO Administration Trazodone HCl 100 mg 07/11/24 21:00 07/23/24 21:13 Trazodone Hcl 50 Mg Tablet PO 100 mg HS SOLITARIO Administration Vancomycin HCl 125 mg 07/20/24 18:00 07/24/24 05:48 Vancomycin Hcl 125 Mg Oral Capsule PO 07/30/24 17:59 125 mg Q6HR SOLITARIO Administration Radiology Results: ITS Impressions Head CT 07/02/24 14:34 IMPRESSION: 1. Normal aging brain. Abdomen/Pelvis CT 07/02/24 14:36 IMPRESSION: 1. Persistent small collection of extra luminal gas in the left lower quadrant anterior abdominal wall immediately adjacent to a region of inflammatory stranding surrounding the descending colon consistent with diverticulitis. No abscess or more remote free intraperineal gas or fluid. 2. Persistent moderate-sized bilateral posterior layering pleural effusions with dependent compressive atelectasis in the visualized lower lobes. Brain MRI 07/04/24 11:30 IMPRESSION: 1. 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 2. 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 3. Diffuse pachymeningeal enhancement. This finding is most commonly secondary to prior lumbar puncture or spine procedure. ADDENDUM: 07/04/24 1216 The contrast volume was 20 mL MultiHance. Venous Doppler Study 07/05/24 14:17 IMPRESSION: 1. Extensive deep vein thrombosis in right lower limb. I called this result to Elsy Tao. Chest X-Ray 07/17/24 18:28 IMPRESSION: 1. Airspace opacities at left lung base, consistent with atelectasis versus pneumonia. 2. Small left pleural effusion. Labs Labs: Laboratory Results - last 24 hr 07/23/24 07/23/24 07/23/24 11:40 16:35 20:58 WBC RBC Hgb Hct MCV MCH MCHC RDW Plt Count MPV Sodium Potassium Chloride Carbon Dioxide Anion Gap BUN Creatinine Estim Creat Clear Calc Estimated GFR Glucose POC Capillary Glucose 98 95 93 Calcium Total Bilirubin AST ALT Alkaline Phosphatase Total Protein Albumin 07/24/24 07/24/24 05:49 08:09 WBC 5.6 RBC 2.92 L Hgb 8.9 L Hct 28.2 L MCV 96.6 MCH 30.5 MCHC 31.6 L RDW 20.3 H Plt Count 171 MPV 10.8 H Sodium 141 Potassium 3.2 L Chloride 111 H Carbon Dioxide 26 Anion Gap 4 BUN 19 H Creatinine 0.97 Estim Creat Clear Calc 51 Estimated GFR 56 L Glucose 75 POC Capillary Glucose 85 Calcium 7.7 L Total Bilirubin 0.6 AST 35 ALT 17 Alkaline Phosphatase 134 H Total Protein 5.0 L Albumin 1.9 L Quality VTE Prophylaxis VTE prophylaxis: pharmacologic ordered Hospitalist MIPS Advance Care Plan I have confirmed that the patient's Advanced Care Plan is present, code status is documented, or surrogate decision maker is listed in patient medical record.: Yes Medication Reconciliation I have utilized all available resources to obtain, update and review the patients current medications (includes all prescriptions, OTC, herbals, cannabis, and nutritional supplements).: Yes
[2024-07-24] MEDS: OLMESARTAN MEDOXOMIL 20 MG TABLET 40 MG PO (09:49)
[2024-07-24] MEDS: guaiFENesin 12 HR 600 MG TABCR 1200 MG PO ×2 (09:49→21:42)
[2024-07-24] MEDS: ATORVASTATIN 40 MG TABLET 80 MG PO (09:49)
[2024-07-24] MEDS: SACCHAROMYCES BOULARDII 250 MG CAPSULE PO ×2 (09:49→17:51)
[2024-07-24] MEDS: METOPROLOL TARTRATE 50 MG TAB PO ×2 (09:50→21:42)
[2024-07-24] MEDS: SODIUM BICARBONATE TAB 650 MG TABLET PO ×3 (09:50→17:51)
[2024-07-24] MEDS: APIXABAN 5 MG TABLET PO ×2 (09:50→21:42)
[2024-07-24] MEDS: levETIRAcetam 500 MG TABLET PO ×2 (09:50→21:42)
[2024-07-24] MEDS: CYANOCOBALAMIN 1,000 MCG TABLET 1000 MCG PO (09:50)
[2024-07-24] MEDS: PANTOPRAZOLE SODIUM IV 40 MG VIAL IV PUSH ×2 (09:50→21:42)
[2024-07-24] MEDS: FERROUS SULFATE 325 MG TABLET DR PO (09:50)
[2024-07-24] MEDS: MAGNESIUM OXIDE 400 MG TABLET PO ×2 (09:50→17:51)
[2024-07-24] MEDS: FOLIC ACID 1 MG TABLET PO (09:50)
[2024-07-24] MEDS: CALCIUM CARBONATE (OSCAL) 500 MG TABLET PO ×2 (09:50→17:51)
[2024-07-24] MEDS: POTASSIUM CHLORIDE 20 MEQ ER TABLET 60 MEQ PO (09:58)
[2024-07-24 11:48] LABS: Glucose Point of Care 75 mg/dl (65-105)
[2024-07-24 14:00] VITALS: BP 142/78; PULSE 97; RESP 20; TEMP 36.9; O2SAT 97
--- NOTE | 2024-07-24 14:37 | PCSTNOTE ---
Please refer to the Modified Barium Swallow Evaluation in the EMR.
[2024-07-24 16:34] LABS: Glucose Point of Care 87 mg/dl (65-105)
[2024-07-24 21:42] VITALS: PULSE 97
[2024-07-24] MEDS: MONTELUKAST SODIUM 10 MG TABLET PO (21:43)
[2024-07-24] MEDS: traZODone HCL 50 MG TABLET 100 MG PO (21:43)
[2024-07-24 22:00] VITALS: BP 151/72; PULSE 92; RESP 20; TEMP 36.7; O2SAT 100
[2024-07-24 22:15] LABS: Glucose Point of Care 85 mg/dl (65-105)
[2024-07-25 02:59] LABS: Glucose Point of Care 88 mg/dl (65-105)
[2024-07-25 06:00] VITALS: BP 149/75; PULSE 90; RESP 18; TEMP 36.6; O2SAT 100
[2024-07-25] MEDS: LEVOTHYROXINE SODIUM 75 MCG TABLET PO (06:14)
[2024-07-25] MEDS: VANCOMYCIN HCL 125 MG ORAL CAPSULE PO ×5 (06:14→23:34)
[2024-07-25] MEDS: CENTRAL LINE FLUSH 10 ML IV PUSH ×3 (06:15→21:45)
[2024-07-25 06:54] LABS: Hematocrit 32.1 % (37.0-47.0); Hemoglobin 10.1 g/dL (12.0-15.0); Mean Corpuscular HGB Conc 31.5 g/dl (32-36); Mean Corpuscular Hemoglobin 30.5 pg (26-34); Mean Platelet Volume 11.4 fl (7.4-10.4); Platelet Count Result 176 k/mm3 (150-375); Red Blood Count 3.31 M/mm3 (4.2-5.4); Red Cell Distribution Width 20.2 % (11.5-14.5)
[2024-07-25 07:09] LABS: Alanine Aminotransferase 17 U/L (6-35); Albumin Level 2.2 g/dL (3.5-5.1); Alkaline Phosphatase 171 U/L (38-126); Anion Gap 6 mmol/L (4-12); Aspartate Amino Transferase 31 U/L (14-36); Bilirubin,Total 0.8 mg/dL (0.2-1.3); Blood Urea Nitrogen 17 mg/dL (7-17); Carbon Dioxide 25 mmol/L (22-30); Chloride 110 mmol/L (98-107); Estimated CRCL calculation 49 ml/min; Estimated Glomerular Filt Rate 52; Glucose 90 mg/dL (65-110); Potassium 3.5 mmol/L (3.4-5.0); Sodium 141 mmol/L (137-145)
[2024-07-25 08:00] VITALS: PULSE 90; RESP 18; O2SAT 100
--- NOTE | 2024-07-25 08:12 | P.PNIM_ITS ---
Progress Note: A&P Assessment and Plan (1) CVA (cerebral vascular accident): Code(s): I63.9 - Cerebral infarction, unspecified Status: Acute Assessment and Plan: 07/11/24: * MRA of brain showing acute infarct in the left frontoparietal lobe in the deep white matter * Left lower extremity weakness * PT and OT ordered * Continue atorvastatin, Plavix * Aspirin currently on hold as she is on Eliquis for DVT prophylaxis * A Neurology following 07/15 * continue Eliquis * neurology following 07/16 * No change 07/20 - Stable. On atorvastatin. Asa/plavix previously held. Apixaban resumed. (2) Seizure: Code(s): R56.9 - Unspecified convulsions Status: Acute Assessment and Plan: 07/11 * New onset * CT of the head was negative * MRI showing acute infarct in the left frontoparietal lobe in deep white matter * EEG findings abnormal read, cannot rule out seizure activity * Continue atorvastatin, Plavix * Will hold baby aspirin considering patient is on Eliquis * Continue Keppra * Continue seizure precautions * Cardiac telemetry stable, we will go ahead and discontinue continuous telemetry * Move out of IMU to regular med surge floor 07/15 * continue neuro checks * continue seizure precautions * continue Keppra, atorvastatin, Plavix * neurology following 07/16 * no change 07/18-07/20 - No new seizure activity. - Cont. keppra at 500mg bid. (3) C. difficile diarrhea: Code(s): A04.72 - Enterocolitis due to Clostridium difficile, not specified as recurrent Status: Acute Assessment and Plan: 07/11/24 * Continue vancomycin pulse dosing * Pulse taper vanc dose as follows: 125 mg orally 4 times daily for 10 to 14 days, then 125 mg orally twice daily for 7 days, then 125 mg orally once daily for 7 days, then 125 mg orally every 2 to 3 days for 2 to 8 weeks 07/15 * no change to current treatment plan 07/18 - Cont. current pulse/taper. Orders are in. 07/20: restarted Oral Vancomycin 07/21: patient completed 2 courses of fidaxomicin and Tapering dose of oral Vancomycin. Consulted GI for fecal microbiota transplantation Tested positive For C diff in November of 2021. Recent stool studies performed 06/21/2024 showed C diff positive. As per documentation patient received Dificid from 06/21-07/08. Started Vancomycin taper 07/08-07/19 and again started on Vancomycin taper on 07/20 [facility] accepted the patient for fecal transplant. Accepting hospitalist is and GI is (4) Diverticulitis of intestine with perforation without abscess: Qualifiers: Diverticulitis bleeding: without bleeding Diverticulitis site: large intestine Qualified Code(s): K57.20 - Diverticulitis of large intestine with perforation and abscess without bleeding Code(s): K57.80 - Diverticulitis of intestine, part unspecified, with perforation and abscess without bleeding Status: Acute Assessment and Plan: 07/11/24 * Failed Dificid * Continue oral vancomycin 07/15 * continue oral vancomycin 07/16 * No change 07/18 - Stable, completing oral vancomycin pulse/taper. 07/20: completed oral vancomycin Tested positive For C diff in November of 2021. Recent stool studies performed 06/21/2024 showed C diff positive. As per documentation patient received Dificid from 06/21-07/08. Started Vancomycin taper 07/08-07/19 and again started on Vancomycin taper on 07/20 (5) Anemia: Qualifiers: Anemia type: due to chronic kidney disease Chronic kidney disease stage: unspecified stage Qualified Code(s): N18.9 - Chronic kidney disease, unspecified; D63.1 - Anemia in chronic kidney disease Code(s): D64.9 - Anemia, unspecified Status: Acute Assessment and Plan: 07/11/24 * Continue to transfuse for hemoglobin less than 7 * Patient receive 1 unit of blood this admission * Currently on Eliquis, Plavix * Will hold aspirin * Continue to trend 07/15 * hemoglobin 7.5 * no change to current treatment plan 07/18 - S/P 2 units prbc overnight with improvement noted on overnight labs. - Resume anticoag. - GI had been consulted, not able to perform colonoscopy currently with diverticulitis, patient had previously refused as well. (6) Acute DVT (deep venous thrombosis): Code(s): I82.409 - Acute embolism and thrombosis of unspecified deep veins of unspecified lower extremity Status: Acute Assessment and Plan: 07/11/24 * Venous Doppler showing extensive right lower extremity DVT * Patient was started on Lovenox and then switched to heparin infusion on 07/09/2024. She later developed dark tarry stools and a drop in her hemoglobin requiring blood transfusion. Heparin drip was placed on hold for 24 hours and then she was restarted on Eliquis 10 mg daily x7 days--standard protocol * General surgery was consulted for IVC filter however she is not a candidate at this time due to her other comorbidities * Continue Eliquis as stated above 07/15 * continue Eliquis 07/16 * No change 07/18 - Eliquis held overnight d/t needing two units prbc. - Stable hgb resuming eliquis. 07/20: Resumed Eliquis. Will monitor H and H (7) Occult blood in stools: Code(s): R19.5 - Other fecal abnormalities Status: Acute Assessment and Plan: 07/11/24 * Patient was occult blood positive on 07/09/2024 * She was given 1 unit of blood * H&H is stable * GI recommending outpatient colonoscopy considering her comorbidities * Recently diagnosed with diverticulitis and C diff colitis 07/15 * hemoglobin 7.5 * continue to trend 07/16 * No change 07/18 - Transfused two units prbc overnight with appropriate rise in hgb on repeat labs overnight. - Apixaban will resume. (8) Delirium: Code(s): R41.0 - Disorientation, unspecified Status: Acute Assessment and Plan: 07/15 * more confused today * continue neuro checks * encourage good sleep hygiene 07/16 * continue neuro checks * currently alert and oriented x3 07/18 - Drowsy this am but rousable and and answers questions. Improved later in the am. No focal deficits. - Cont. to monitor closely for developing infection - post influenza pna, UTI, etc. Check urine this am, pending. - Treating for pna. (9) Pneumonia: Code(s): J18.9 - Pneumonia, unspecified organism Status: Acute Assessment and Plan: 07/18 - Slightly less oriented than reported from day prior this morning, improving in the late morning, cxr shows infiltrate. Plan to start ceftriaxone/zithromycin today day 1. (10) Upper respiratory infection: Code(s): J06.9 - Acute upper respiratory infection, unspecified Status: Acute Assessment and Plan: 07/11/24 * Patient reported cold-like symptoms with a nonproductive cough and wheezing * Will check for influenza a and B, RSV, COVID * Start DuoNebs q.6 hour * Will obtain chest x-ray * Incentive spirometry while awake * Pep therapy with cornet flutter valve 07/15 * no change to current treatment plan 07/17 * Chest x-ray ordered * Still coarse rhonchi * Patient finished course Tamiflu for influenza a * Continue incentive spirometry and pep therapy 07/18 - Completed tamiflu, breathing easily. Lungs diminished bilaterally with slightly coarse rales in the right. (11) Urinary retention: Code(s): R33.9 - Retention of urine, unspecified Status: Acute Assessment and Plan: 07/11/24: * Patient had acute urinary retention requiring Fitzpatrick on 07/03/24 * Urology was consulted * Patient failed voiding trial * Patient will keep catheter and repeat voiding trial in 1-2 weeks on an outpatient basis with Urology 07/15 * no change to current treatment plan 07/18 - Catheter in place, consider trial of voiding 07/25 at the two week kelly. (12) Hypokalemia: Code(s): E87.6 - Hypokalemia Status: Acute Assessment and Plan: 07/11/24: * Potassium 4.3 * No need for replacement * Resolved 07/15 * potassium 3.5 * no replacement needed 07/16 * potassium 3.7 * no replacement needed (13) Hypothyroidism: Qualifiers: Hypothyroidism type: unspecified Qualified Code(s): E03.9 - Hypothyroi dism, unspecified Code(s): E03.9 - Hypothyroidism, unspecified Status: Chronic Assessment and Plan: 07/11/24 * Continue Synthroid 07/15 * no change to current treatment plan 07/18 - Cont. current. (14) Hypertension: Qualifiers: Hypertension type: primary hypertension Qualified Code(s): I10 - Essential (primary) hypertension Code(s): I10 - Essential (primary) hypertension Status: Chronic Assessment and Plan: -Blood pressure ranging 105/ 81 to 146/73 - Continue metoprolol, Benicar and monitor. -no change to current treatment plan -BP generally 130-140, trending higher this am, consider uptitration if trend continues. (15) Dysphagia: Qualifiers: Dysphagia type: esophageal phase Qualified Code(s): R13.19 - Other dysphagia Code(s): R13.10 - Dysphagia, unspecified Status: Acute Assessment and Plan: Last EGD with dilation 05/15/2024 revealed a small hiatal hernia but no findings to explain symptoms. Following her EGD esophageal manometry was recommended to rule out achalasia but this was not arranged. Patient states that for the past 2 months she has been having postprandial nausea and vomiting. She is still having intermittent swallowing difficulty with solids, liquids, and pills. * esophagram ordered, if workup is unremarkable and symptoms persist we can arrange an esophageal manometry or endo flip as outpatient * continue supportive care with antiemetics Plan Melissa Tom is a 73 year old female initially presenting with AMS found to have CVA and seizure with failed o/p management of c.diff/diverticulitis. Complicated hospital course with acute VTE of the lower ext, anemia requiring transfusions, most recent 2 units on 07/17/24. She has developed urinary retention and fitzpatrick has been in place. Completed tamiflu for influenza A yesterday - a focal infiltrate is now noted and patient less oriented. Abx for pna have been started today, 07/18/24. Subjective Date/time seen: 07/25/24 08:12 Interval history: Interval history:Melissa Tom is a 73 year old female hypertension, chronic obstructive pulmonary disease, obstructive sleep apnea intolerant to CPAP, hypothyroidism, gout, anxiety, and Clostridium difficile diarrhea who presented to the emergency department via EMS from [facility] for evaluation of altered mental status. Hospital course is complicated and initially presenting with AMS found to have CVA and seizure with failed o/p management of c.diff/diverticulitis. Complicated hospital course with acute CVA,acute VTE of the lower ext, anemia requiring transfusions, most recent 2 units on 07/17/24. She has developed urinary retention and fitzpatrick has been in place. Completed tamiflu for influenza A yesterday - a focal infiltrate is now noted and patient less oriented. Abx for pna have been started today, 07/18/24. -Tested positive For C diff in November of 2021. Recent stool studies performed 06/21/2024 showed C diff positive. As per documentation patient received Dificid from 06/21-07/08. Started Vancomycin taper 07/08-07/19 and again started on Vancomycin taper on 07/20 1)Patient was previously treated with Dificid which according to records she failed treatment. 2)She is currently on 2 nd time on vancomycin taper 125 mg orally 4 times daily for 10 to 14 days, 125 mg orally twice daily for 7 days, 125 mg orally once daily for 7 days, then 125 mg orally every 2 to 3 days for 2 to 8 weeks. 3) Patient states that she has been experiencing diarrhea for a few years but was worse recently but she was unable to provide any further details regarding bowel frequency. She states that over the past few months she has lost 30 lb without trying, current weight 209 lb. 07/23: Patient feels tired . She wants to know what happened to her and wanted t o call police. Discussed with GI and might need fecal transplant. Will [facility]. As per documentation patient received Dificid from 06/21-07/08. Started Vancomycin taper 07/08-07/19 and again started on Vancomycin taper on 07/20. 07/24: [facility] accepted the patient for fecal transplant. Accepting hospitalist is and GI is 07/25: Pending transfer to [facility]. Started on potassium 20 mEq daily. Yesterday patient had 4 episodes of diarrhea. Review of Systems Review of Systems: All systems reviewed & are unremarkable except as noted in HPI and below Constitutional: Constitutional: Reports no additional constitutional complaints Eyes: Eyes: Reports no additional eye complaints ENT: Reports system reviewed and no additional complaints, except as documented Cardiovascular: Cardiovascular: Reports no additional cardiovascular complaints Respiratory: Respiratory: Reports no additional respiratory complaints Gastrointestinal: Gastrointestinal: Reports no additional gastrointestinal complaints and Reports diarrhea Genitourinary: Genitourinary: Reports no additional female genitourinary compl aints Musculoskeletal: Musculoskeletal: Reports no additional musculoskeletal complaints Integumentary/Breasts: Skin/Breast: Reports system reviewed and no additional complaints, except as docu and Reports as per HPI Neurologic: Reports system reviewed and no additional complaints, except as documented Psychiatric: Psychiatric: Reports no additional psychiatric complaints and Reports as per HPI Endocrine: Endocrine: Reports no additional endocrine complaints and Reports as per HPI Hematologic/Lymphatic: Hematologic/Lymphatic: Reports no additional hematologic/lymphatic complaints and Reports as per HPI Allergic/Immunologic: Allergic/Immunologic: Reports no additional allergic/immunologic complaints and Reports as per HPI Exam Narrative: GENERAL APPEARANCE: Appears to be in no acute distress. HEAD: normocephalic atraumatic EYES: EOMI. ENT: Hearing grossly intact, no nasal discharge NECK: Neck supple, trachea midline. CARDIAC: Normal S1/S2. Rhythm is regular. No murmurs, rubs, or gallops. No cyanosis or pallor. Extremities are warm and well perfused. LUNGS: Clear to auscultation without rales, rhonchi, wheezing. Breath sounds are bilaterally diminished.. Respirations even and unlabored. ABDOMEN: BS positive x 4 quadrants. Soft, nondistended, nontender. No guarding or rebound. MSK: No joint tenderness/swelling, fair strength in all extremities. PERIPHERAL VASCULAR: Peripheral pulses palpable. Normal perfusion, cap refill <2 seconds. No edema. NEURO: Follows commands. No focal deficits.Drowsy this am but oriented to self and situation. SKIN: [place] without lesions or eruptions. PSYCH: Stable, Const: General: cooperative, no acute distress, alert, awake and obese Nutritional Appearance: obese Orientation/consciousness: oriented to person, oriented to place and oriented to time HENMT: Head: normal to inspection and normocephalic Eyes: General: appearance normal, both eyes and all related structures Neck: Neck: normal visual inspection, full ROM and no lymphadenopathy Chest: Chest palpation & inspection: normal inspection of the chest Resp: Effort & Inspection: normal respiratory effort, able to speak in complete sentences and Actively coughing Auscultation: clear to auscultation bilaterally and diminished lung sounds bilateral in the lower lung forbes Cardio: Jugular venous distension: no JVD Palpation: normal PMI Rate: regular rate Rhythm: regular rhythm Heart sounds: S1 normal heart sound present and S2 normal heart sound present GI: Inspection: normal to inspection Auscultation: High-pitched bowel sounds present and Hyperactive bowel sounds present Rectal Exam: other (rectal tube in place, liquid stool noted) Other: rectal tube in place and draining liquid stool Urinary Catheter: Urinary Catheter: patent and draining and urine clear Skin: General skin exam: normal color and no rashes or lesions noted Neuro: General: oriented to person, oriented to place, oriented to time, tone normal and moves all extremities Extrem: General: normal to inspection and full ROM Psych: Appearance: grossly normal Mental Status: mental status grossly normal Speech and movement: Normal speech and movement present Objective Data Vital Signs Vital Signs: Vital Signs - 24 hr 07/24/24 14:00 07/24/24 20:00 07/24/24 21:42 Temperature 98.4 F Pulse Rate 97 97 Respiratory Rate 20 Blood Pressure 142/78 H Pulse Oximetry 97 Oxygen Delivery Room Air 07/24/24 22:00 07/25/24 06:00 Temperature 98.1 F 97.8 F Pulse Rate 92 90 Respiratory Rate 20 18 Blood Pressure 151/72 H 149/75 H Pulse Oximetry 100 100 Oxygen Delivery Intake/Output Intake/Output: Intake & Output 07/22/24 07/23/24 07/24/24 07/25/24 23:59 23:59 23:59 23:59 Intake Total 580 1507 837 240 Output Total 300 500 400 400 Balance 280 1007 437 -160 Meds/Results Medications: Active Medications Generic Name Dose Route Start Last Admin Trade Name Freq PRN Reason Stop Dose Admin Acetaminophen 1,000 mg 07/11/24 16:52 07/24/24 03:09 Acetaminophen 500 Mg Tablet PO 1,000 mg Q6H PRN Administration Mild Pain (1-3) or Fever Albuterol/Ipratropium 3 ml 07/19/24 17:28 Ipratropium 0.5 Mg/Albuterol Sulfate 2.5 Mg Ampul.Neb 3 Ml INHALATION Q6HRT PRN Wheezing Apixaban 5 mg 07/12/24 21:00 07/24/24 21:42 Apixaban 5 Mg Tablet PO 5 mg Q12HR SOLITARIO Administration Atorvastatin Calcium 80 mg 07/04/24 21:00 07/24/24 09:49 Atorvastatin 40 Mg Tablet PO 80 mg DAILY SOLITARIO Administration Calcium Carbonate 500 mg 07/14/24 08:00 07/24/24 17:51 Calcium Carbonate (Oscal) 500 Mg Tablet PO 500 mg BIDWM SOLITARIO Administration Cyanocobalamin 1,000 mcg 07/12/24 09:00 07/24/24 09:50 Cyanocobalamin 1,000 Mcg Tablet PO 1,000 mcg DAILY SOLITARIO Administration Dextrose 12.5 gm 07/20/24 16:44 Dextrose 50% 25 Gm/50 Ml Syringe IV PUSH PRN PRN Hypoglycemia Protocol Ferrous Sulfate 325 mg 07/15/24 09:00 07/24/24 09:50 Ferrous Sulfate [address] PO 325 mg DAILY SOLITARIO Administration Folic Acid 1 mg 07/03/24 09:00 07/24/24 09:50 Folic Acid 1 Mg Tablet PO 1 mg DAILY SOLITARIO Administration Glucagon 1 mg 07/20/24 16:44 Glucagon For Inj 1 Mg Vial IM PRN PRN Hypoglycemia Protocol Glucose 15 gm 07/20/24 16:44 07/20/24 17:02 Glucose Oral Gel 15 Gm Of Glucse In 37.5 Gm Tube PO 15 gm PRN PRN Administration Hypoglycemia Protocol Guaifenesin 1,200 mg 07/11/24 21:00 07/24/24 21:42 Guaifenesin 12 Hr 600 Mg Tabcr PO 1,200 mg Q12HR SOLITARIO Administration Dextrose 1,000 mls @ 100 mls/hr 07/20/24 16:44 Dextrose 5% 1,000 Ml IVPB PRN PRN Hypoglycemia Protocol Levetiracetam 500 mg 07/03/24 12:30 07/24/24 21:42 Levetiracetam 500 Mg Tablet PO 500 mg Q12HR SOLITARIO Administration Levothyroxine Sodium 75 mcg 07/03/24 06:30 07/25/24 06:14 Levothyroxine Sodium 75 Mcg Tablet PO 75 mcg DAILY@0630 SOLITARIO Administration Lidocaine 1 patch 07/12/24 09:00 07/24/24 09:51 Lidocaine 5% Patch TRANSDERM Not Given DAILY [facility] Magnesium Oxide 400 mg 07/06/24 17:00 07/24/24 17:51 Magnesium Oxide 400 Mg Tablet PO 400 mg BID SOLITARIO Administration Metoprolol Tartrate 50 mg 07/03/24 09:00 07/24/24 21:42 Metoprolol Tartrate 50 Mg Tab PO 50 mg Q12HR SOLITARIO Administration Miscellaneous Information 1 each 07/19/24 00:01 Vancomycin 125 Mg Capsule Needs To Be Renewed Or It Will Automatically Discontinue. XX 08/18/24 00:00 CLARIFY [facility] Miscellaneous Information 1 each 07/20/24 00:01 Tramadol Needs To Be Renewed Or It Will Automatically Discontinue. XX 08/19/24 00:00 CLARIFY [facility] Montelukast Sodium 10 mg 07/03/24 00:15 07/24/24 21:43 Montelukast Sodium 10 Mg Tablet PO 10 mg HS SOLITARIO Administration Olmesartan 40 mg 07/03/24 09:00 07/24/24 09:49 Olmesartan Medoxomil 20 Mg Tablet PO 40 mg DAILY SOLITARIO Administration Pantoprazole Sodium 40 mg 07/09/24 12:35 07/24/24 21:42 Pantoprazole Sodium Iv 40 Mg Vial IV PUSH 40 mg Q12HR SOLITARIO Administration Saccharomyces Boulardii 250 mg 07/22/24 17:00 07/24/24 17:51 Saccharomyces Boulardii 250 Mg Capsule PO 250 mg BID SOLITARIO Administration Sodium Bicarbonate 650 mg 07/16/24 17:00 07/24/24 17:51 Sodium Bicarbonate Tab 650 Mg Tablet PO 650 mg TID SOLITARIO Administration Sodium Chloride 20 ml 07/04/24 16:15 07/24/24 05:49 Central Line Flush IV PUSH 20 ml PRN PRN Administration after blood draws Sodium Chloride 10 ml 07/04/24 16:15 Central Line Flush IV PUSH PRN PRN with TPN bag changes Sodium Chloride 10 ml 07/04/24 22:00 07/25/24 06:15 Central Line Flush IV PUSH 10 ml Q8HR SOLITARIO Administration Trazodone HCl 100 mg 07/11/24 21:00 07/24/24 21:43 Trazodone Hcl 50 Mg Tablet PO 100 mg HS SOLITARIO Administration Vancomycin HCl 125 mg 07/20/24 18:00 07/25/24 06:14 Vancomycin Hcl 125 Mg Oral Capsule PO 07/30/24 17:59 125 mg Q6HR SOLITARIO Administration Radiology Results: ITS Impressions Head CT 07/02/24 14:34 IMPRESSION: 1. Normal aging brain. Abdomen/Pelvis CT 07/02/24 14:36 IMPRESSION: 1. Persistent small collection of extra luminal gas in the left lower quadrant anterior abdominal wall immediately adjacent to a region of inflammatory stranding surrounding the descending colon consistent with diverticulitis. No abscess or more remote free intraperineal gas or fluid. 2. Persistent moderate-sized bilateral posterior layering pleural effusions with dependent compressive atelectasis in the visualized lower lobes. Brain MRI 07/04/24 11:30 IMPRESSION: 1. 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 2. 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 3. Diffuse pachymeningeal enhancement. This finding is most commonly secondary to prior lumbar puncture or spine procedure. ADDENDUM: 07/04/24 1216 The contrast volume was 20 mL MultiHance. Venous Doppler Study 07/05/24 14:17 IMPRESSION: 1. Extensive deep vein thrombosis in right lower limb. I called this result to Elsy Tao. Chest X-Ray 07/17/24 18:28 IMPRESSION: 1. Airspace opacities at left lung base, consistent with atelectasis versus pneumonia. 2. Small left pleural effusion. Modified Barium Swallow 07/24/24 14:55 IMPRESSION: 1. Flash laryngeal penetration. 2. Please refer to the speech therapy report for recommendations. Labs Labs: Laboratory Results - last 24 hr 07/24/24 07/24/24 07/24/24 11:32 16:31 21:36 WBC RBC Hgb Hct MCV MCH MCHC RDW Plt Count MPV Sodium Potassium Chloride Carbon Dioxide Anion Gap BUN Creatinine Estim Creat Clear Calc Estimated GFR Glucose POC Capillary Glucose 75 87 85 Calcium Total Bilirubin AST ALT Alkaline Phosphatase Total Protein Albumin 07/25/24 07/25/24 02:50 06:24 WBC 7.0 RBC 3.31 L Hgb 10.1 L Hct 32.1 L MCV 97.0 MCH 30.5 MCHC 31.5 L RDW 20.2 H Plt Count 176 MPV 11.4 H Sodium 141 Potassium 3.5 Chloride 110 H Carbon Dioxide 25 Anion Gap 6 BUN 17 Creatinine 1.03 H Estim Creat Clear Calc 49 Estimated GFR 52 L Glucose 90 POC Capillary Glucose 88 Calcium 8.0 L Total Bilirubin 0.8 AST 31 ALT 17 Alkaline Phosphatase 171 H Total Protein 5.0 L Albumin 2.2 L Quality VTE Prophylaxis VTE prophylaxis: pharmacologic ordered Hospitalist MIPS Advance Care Plan I have confirmed that the patient's Advanced Care Plan is present, code status is documented, or surrogate decision maker is listed in patient medical record.: Yes Medication Reconciliation I have utilized all available resources to obtain, update and review the patients current medications (includes all prescriptions, OTC, herbals, cannabis, and nutritional supplements).: Yes
[2024-07-25 08:18] LABS: Glucose Point of Care 93 mg/dl (65-105)
[2024-07-25 08:18] LABS: Glucose Point of Care 92 mg/dl (65-105)
[2024-07-25] MEDS: CYANOCOBALAMIN 1,000 MCG TABLET 1000 MCG PO (09:09)
[2024-07-25] MEDS: MAGNESIUM OXIDE 400 MG TABLET PO ×2 (09:09→18:01)
[2024-07-25] MEDS: SODIUM BICARBONATE TAB 650 MG TABLET PO ×3 (09:09→18:01)
[2024-07-25] MEDS: FERROUS SULFATE 325 MG TABLET DR PO (09:09)
[2024-07-25] MEDS: METOPROLOL TARTRATE 50 MG TAB PO ×2 (09:09→21:45)
[2024-07-25] MEDS: APIXABAN 5 MG TABLET PO ×2 (09:09→21:42)
[2024-07-25] MEDS: FOLIC ACID 1 MG TABLET PO (09:09)
[2024-07-25] MEDS: CALCIUM CARBONATE (OSCAL) 500 MG TABLET PO ×2 (09:10→18:01)
[2024-07-25] MEDS: OLMESARTAN MEDOXOMIL 20 MG TABLET 40 MG PO (09:10)
[2024-07-25] MEDS: levETIRAcetam 500 MG TABLET PO ×2 (09:10→21:44)
[2024-07-25] MEDS: SACCHAROMYCES BOULARDII 250 MG CAPSULE PO ×2 (09:10→18:01)
[2024-07-25] MEDS: guaiFENesin 12 HR 600 MG TABCR 1200 MG PO ×2 (09:10→21:42)
[2024-07-25] MEDS: ATORVASTATIN 40 MG TABLET 80 MG PO (09:10)
[2024-07-25] MEDS: POTASSIUM CHLORIDE 20 MEQ PACKET (FOR LIQUID) PO (09:16)
[2024-07-25] MEDS: PANTOPRAZOLE SODIUM IV 40 MG VIAL IV PUSH ×2 (09:16→21:42)
[2024-07-25] MEDS: ACETAMINOPHEN 500 MG TABLET 1000 MG PO (10:07)
[2024-07-25 11:52] LABS: Glucose Point of Care 106 mg/dl (65-105)
--- NOTE | 2024-07-25 13:44 | PCOTNOTE ---
Attempted to see Patient for OT treatment session. Patient stating she is leaving today to go home, will not participate in any activity. Patient frustrated, stated she told therapy no and she means no more, leave me alone.
[2024-07-25 14:00] VITALS: BP 150/62; PULSE 86; RESP 18; TEMP 36.2; O2SAT 99
--- NOTE | 2024-07-25 14:42 | PCPTNOTE ---
Patient refused treatment. Attempted to see patient 2x this afternoon however patient refused to participate each time. Patient states she would not do therapy because she is going home today. I informed patient of no discharge order and that she would benefit from participating in therapy to improve her strength and mobility to go home. Patient continued to refused PT and would not even attempt to exercise LE's. Patient refused transfer out of bed with maxi move.
[2024-07-25 16:49] LABS: Glucose Point of Care 96 mg/dl (65-105)
[2024-07-25 20:36] LABS: Glucose Point of Care 81 mg/dl (65-105)
[2024-07-25 21:03] VITALS: BP 144/61; PULSE 88; RESP 18; TEMP 36.5; O2SAT 100
[2024-07-25] MEDS: MONTELUKAST SODIUM 10 MG TABLET PO (21:44)
[2024-07-25] MEDS: traZODone HCL 50 MG TABLET 100 MG PO (21:44)
[2024-07-25 21:45] VITALS: PULSE 88
[2024-07-26 05:39] VITALS: BP 153/76; PULSE 88; RESP 14; TEMP 36.2; O2SAT 99
[2024-07-26] MEDS: LEVOTHYROXINE SODIUM 75 MCG TABLET PO (05:45)
[2024-07-26] MEDS: VANCOMYCIN HCL 125 MG ORAL CAPSULE PO ×4 (05:45→23:06)
[2024-07-26] MEDS: CENTRAL LINE FLUSH 10 ML IV PUSH ×3 (05:45→21:32)
[2024-07-26 07:56] LABS: Glucose Point of Care 76 mg/dl (65-105)
[2024-07-26 08:04] LABS: Hematocrit 33.7 % (37.0-47.0); Hemoglobin 10.2 g/dL (12.0-15.0); Mean Corpuscular HGB Conc 30.3 g/dl (32-36); Mean Corpuscular Hemoglobin 30.7 pg (26-34); Mean Corpuscular Volume 101.5 fl (80-100); Mean Platelet Volume 11.3 fl (7.4-10.4); Platelet Count Result 181 k/mm3 (150-375); Red Blood Count 3.32 M/mm3 (4.2-5.4); Red Cell Distribution Width 20.2 % (11.5-14.5); White Blood Count 6.6 K/mm3 (4.5-10.0)
[2024-07-26] MEDS: ATORVASTATIN 40 MG TABLET 80 MG PO (09:19)
[2024-07-26] MEDS: OLMESARTAN MEDOXOMIL 20 MG TABLET 40 MG PO (09:19)
[2024-07-26] MEDS: POTASSIUM CHLORIDE 20 MEQ PACKET (FOR LIQUID) PO (09:19)
[2024-07-26] MEDS: FERROUS SULFATE 325 MG TABLET DR PO (09:19)
[2024-07-26] MEDS: SODIUM BICARBONATE TAB 650 MG TABLET PO ×3 (09:19→17:07)
[2024-07-26 09:20] VITALS: PULSE 79
[2024-07-26] MEDS: CYANOCOBALAMIN 1,000 MCG TABLET 1000 MCG PO (09:20)
[2024-07-26] MEDS: MAGNESIUM OXIDE 400 MG TABLET PO ×2 (09:20→17:08)
[2024-07-26] MEDS: METOPROLOL TARTRATE 50 MG TAB PO ×2 (09:20→21:33)
[2024-07-26] MEDS: CALCIUM CARBONATE (OSCAL) 500 MG TABLET PO ×2 (09:20→17:07)
[2024-07-26] MEDS: SACCHAROMYCES BOULARDII 250 MG CAPSULE PO (09:20)
[2024-07-26] MEDS: FOLIC ACID 1 MG TABLET PO (09:20)
[2024-07-26] MEDS: guaiFENesin 12 HR 600 MG TABCR 1200 MG PO ×2 (09:21→21:32)
[2024-07-26] MEDS: PANTOPRAZOLE SODIUM IV 40 MG VIAL IV PUSH ×2 (09:21→21:32)
[2024-07-26] MEDS: LIDOCAINE 5% PATCH 1 PATCH TRANSDERM (09:21)
[2024-07-26] MEDS: levETIRAcetam 500 MG TABLET PO ×2 (09:21→21:32)
[2024-07-26] MEDS: APIXABAN 5 MG TABLET PO ×2 (09:21→21:32)
[2024-07-26 10:28] LABS: Alanine Aminotransferase 16 U/L (6-35); Albumin Level 2.1 g/dL (3.5-5.1); Alkaline Phosphatase 160 U/L (38-126); Anion Gap 7 mmol/L (4-12); Aspartate Amino Transferase 25 U/L (14-36); Bilirubin,Total 0.6 mg/dL (0.2-1.3); Blood Urea Nitrogen 18 mg/dL (7-17); Calcium 8.3 mg/dL (8.4-10.2); Carbon Dioxide 22 mmol/L (22-30); Chloride 117 mmol/L (98-107); Estimated CRCL calculation 49 ml/min; Estimated Glomerular Filt Rate 53; Glucose 81 mg/dL (65-110); Potassium 4.5 mmol/L (3.4-5.0); Sodium 146 mmol/L (137-145)
[2024-07-26 12:03] LABS: Glucose Point of Care 88 mg/dl (65-105)
--- NOTE | 2024-07-26 12:30 | PCNFU ---
Nutrition Follow-Up Complete: Altered GI function related to C.diff as evidenced by liquid stool Goal:PO intake greater than 50% Formed stool Pt not meeting goals. Pt current nutrition is Heart healthy, Ensure Enlive TID, Banatrol TID. Nutrition recommendation: encourage po intake Last recorded weight is 95.6 kg. Bowel Motility: +BM 07/26 - liquid stool Labs Reviewed: Hgb:10.2, HCT:33.7, Na:146, GFR:53, BUN:18 Meds Noted: protonix, KCL, folic acid Skin: WNL Additional Notes: Pt continues on a heart healthy diet, intake 0-25% of meals, supplements in place. Banatrol TID in place. Pt continues with semi liquid stool. Awaiting transfer to [facility] for fecal transplant. Monitor intake, wt, labs, stool output. Follow up in 5 days.
[2024-07-26 14:00] VITALS: BP 154/73; PULSE 88; RESP 18; TEMP 36.2; O2SAT 98
[2024-07-26 14:14] VITALS: BMI 10.0
--- NOTE | 2024-07-26 14:26 | P.PNIM_ITS ---
Progress Note: A&P Assessment and Plan (1) CVA (cerebral vascular accident): Code(s): I63.9 - Cerebral infarction, unspecified Status: Acute Assessment and Plan: 07/11/24: * MRA of brain showing acute infarct in the left frontoparietal lobe in the deep white matter * Left lower extremity weakness * PT and OT ordered * Continue atorvastatin, Plavix * Aspirin currently on hold as she is on Eliquis for DVT prophylaxis * A Neurology following 07/15 * continue Eliquis * neurology following 07/16 * No change 07/20 - Stable. On atorvastatin. Asa/plavix previously held. Apixaban resumed. (2) Seizure: Code(s): R56.9 - Unspecified convulsions Status: Acute Assessment and Plan: 07/11 * New onset * CT of the head was negative * MRI showing acute infarct in the left frontoparietal lobe in deep white matter * EEG findings abnormal read, cannot rule out seizure activity * Continue atorvastatin, Plavix * Will hold baby aspirin considering patient is on Eliquis * Continue Keppra * Continue seizure precautions * Cardiac telemetry stable, we will go ahead and discontinue continuous telemetry * Move out of IMU to regular med surge floor 07/15 * continue neuro checks * continue seizure precautions * continue Keppra, atorvastatin, Plavix * neurology following 07/16 * no change 07/18-07/20 - No new seizure activity. - Cont. keppra at 500mg bid. (3) C. difficile diarrhea: Code(s): A04.72 - Enterocolitis due to Clostridium difficile, not specified as recurrent Status: Acute Assessment and Plan: 07/11/24 * Continue vancomycin pulse dosing * Pulse taper vanc dose as follows: 125 mg orally 4 times daily for 10 to 14 days, then 125 mg orally twice daily for 7 days, then 125 mg orally once daily for 7 days, then 125 mg orally every 2 to 3 days for 2 to 8 weeks 07/15 * no change to current treatment plan 07/18 - Cont. current pulse/taper. Orders are in. 07/20: restarted Oral Vancomycin 07/21: patient completed 2 courses of fidaxomicin and Tapering dose of oral Vancomycin. Consulted GI for fecal microbiota transplantation Tested positive For C diff in November of 2021. Recent stool studies performed 06/21/2024 showed C diff positive. As per documentation patient received Dificid from 06/21-07/08. Started Vancomycin taper 07/08-07/19 and again started on Vancomycin taper on 07/20 [facility] accepted the patient for fecal transplant. Accepting hospitalist is and GI is (4) Diverticulitis of intestine with perforation without abscess: Qualifiers: Diverticulitis bleeding: without bleeding Diverticulitis site: large intestine Qualified Code(s): K57.20 - Diverticulitis of large intestine with perforation and abscess without bleeding Code(s): K57.80 - Diverticulitis of intestine, part unspecified, with perforation and abscess without bleeding Status: Acute Assessment and Plan: 07/11/24 * Failed Dificid * Continue oral vancomycin 07/15 * continue oral vancomycin 07/16 * No change 07/18 - Stable, completing oral vancomycin pulse/taper. 07/20: completed oral vancomycin Tested positive For C diff in November of 2021. Recent stool studies performed 06/21/2024 showed C diff positive. As per documentation patient received Dificid from 06/21-07/08. Started Vancomycin taper 07/08-07/19 and again started on Vancomycin taper on 07/20 (5) Anemia: Qualifiers: Anemia type: due to chronic kidney disease Chronic kidney disease stage: unspecified stage Qualified Code(s): N18.9 - Chronic kidney disease, unspecified; D63.1 - Anemia in chronic kidney disease Code(s): D64.9 - Anemia, unspecified Status: Acute Assessment and Plan: 07/11/24 * Continue to transfuse for hemoglobin less than 7 * Patient receive 1 unit of blood this admission * Currently on Eliquis, Plavix * Will hold aspirin * Continue to trend 07/15 * hemoglobin 7.5 * no change to current treatment plan 07/18 - S/P 2 units prbc overnight with improvement noted on overnight labs. - Resume anticoag. - GI had been consulted, not able to perform colonoscopy currently with diverticulitis, patient had previously refused as well. (6) Acute DVT (deep venous thrombosis): Code(s): I82.409 - Acute embolism and thrombosis of unspecified deep veins of unspecified lower extremity Status: Acute Assessment and Plan: 07/11/24 * Venous Doppler showing extensive right lower extremity DVT * Patient was started on Lovenox and then switched to heparin infusion on 07/09/2024. She later developed dark tarry stools and a drop in her hemoglobin requiring blood transfusion. Heparin drip was placed on hold for 24 hours and then she was restarted on Eliquis 10 mg daily x7 days--standard protocol * General surgery was consulted for IVC filter however she is not a candidate at this time due to her other comorbidities * Continue Eliquis as stated above 07/15 * continue Eliquis 07/16 * No change 07/18 - Eliquis held overnight d/t needing two units prbc. - Stable hgb resuming eliquis. 07/20: Resumed Eliquis. Will monitor H and H (7) Occult blood in stools: Code(s): R19.5 - Other fecal abnormalities Status: Acute Assessment and Plan: 07/11/24 * Patient was occult blood positive on 07/09/2024 * She was given 1 unit of blood * H&H is stable * GI recommending outpatient colonoscopy considering her comorbidities * Recently diagnosed with diverticulitis and C diff colitis 07/15 * hemoglobin 7.5 * continue to trend 07/16 * No change 07/18 - Transfused two units prbc overnight with appropriate rise in hgb on repeat labs overnight. - Apixaban will resume. (8) Delirium: Code(s): R41.0 - Disorientation, unspecified Status: Acute Assessment and Plan: 07/15 * more confused today * continue neuro checks * encourage good sleep hygiene 07/16 * continue neuro checks * currently alert and oriented x3 07/18 - Drowsy this am but rousable and and answers questions. Improved later in the am. No focal deficits. - Cont. to monitor closely for developing infection - post influenza pna, UTI, etc. Check urine this am, pending. - Treating for pna. (9) Pneumonia: Code(s): J18.9 - Pneumonia, unspecified organism Status: Acute Assessment and Plan: 07/18 - Slightly less oriented than reported from day prior this morning, improving in the late morning, cxr shows infiltrate. Plan to start ceftriaxone/zithromycin today day 1. (10) Upper respiratory infection: Code(s): J06.9 - Acute upper respiratory infection, unspecified Status: Acute Assessment and Plan: 07/11/24 * Patient reported cold-like symptoms with a nonproductive cough and wheezing * Will check for influenza a and B, RSV, COVID * Start DuoNebs q.6 hour * Will obtain chest x-ray * Incentive spirometry while awake * Pep therapy with cornet flutter valve 07/15 * no change to current treatment plan 07/17 * Chest x-ray ordered * Still coarse rhonchi * Patient finished course Tamiflu for influenza a * Continue incentive spirometry and pep therapy 07/18 - Completed tamiflu, breathing easily. Lungs diminished bilaterally with slightly coarse rales in the right. (11) Urinary retention: Code(s): R33.9 - Retention of urine, unspecified Status: Acute Assessment and Plan: 07/11/24: * Patient had acute urinary retention requiring Fitzpatrick on 07/03/24 * Urology was consulted * Patient failed voiding trial * Patient will keep catheter and repeat voiding trial in 1-2 weeks on an outpatient basis with Urology 07/15 * no change to current treatment plan 07/18 - Catheter in place, consider trial of voiding 07/25 at the two week kelly. (12) Hypokalemia: Code(s): E87.6 - Hypokalemia Status: Acute Assessment and Plan: 07/11/24: * Potassium 4.3 * No need for replacement * Resolved 07/15 * potassium 3.5 * no replacement needed 07/16 * potassium 3.7 * no replacement needed (13) Hypothyroidism: Qualifiers: Hypothyroidism type: unspecified Qualified Code(s): E03.9 - Hypothyroi dism, unspecified Code(s): E03.9 - Hypothyroidism, unspecified Status: Chronic Assessment and Plan: 07/11/24 * Continue Synthroid 07/15 * no change to current treatment plan 07/18 - Cont. current. (14) Hypertension: Qualifiers: Hypertension type: primary hypertension Qualified Code(s): I10 - Essential (primary) hypertension Code(s): I10 - Essential (primary) hypertension Status: Chronic Assessment and Plan: -Blood pressure ranging 105/ 81 to 146/73 - Continue metoprolol, Benicar and monitor. -no change to current treatment plan -BP generally 130-140, trending higher this am, consider uptitration if trend continues. (15) Dysphagia: Qualifiers: Dysphagia type: esophageal phase Qualified Code(s): R13.19 - Other dysphagia Code(s): R13.10 - Dysphagia, unspecified Status: Acute Assessment and Plan: Last EGD with dilation 05/15/2024 revealed a small hiatal hernia but no findings to explain symptoms. Following her EGD esophageal manometry was recommended to rule out achalasia but this was not arranged. Patient states that for the past 2 months she has been having postprandial nausea and vomiting. She is still having intermittent swallowing difficulty with solids, liquids, and pills. * esophagram ordered, if workup is unremarkable and symptoms persist we can arrange an esophageal manometry or endo flip as outpatient * continue supportive care with antiemetics (16) Hypernatremia: Code(s): E87.0 - Hyperosmolality and hypernatremia Status: Acute Assessment and Plan: Possibly due to her dehydration Started D5W at 100 mL per Plan Melissa Tom is a 73 year old female initially presenting with AMS found to have CVA and seizure with failed o/p management of c.diff/diverticulitis. Complicated hospital course with acute VTE of the lower ext, anemia requiring transfusions, most recent 2 units on 07/17/24. She has developed urinary retention and fitzpatrick has been in place. Completed tamiflu for influenza A yesterday - a focal infiltrate is now noted and patient less oriented. Abx for pna have been started today, 07/18/24. Subjective Date/time seen: 07/26/24 14:26 Interval history: Decreased potassium from 20 mEq to 10 mEq. Patient has a hyponatremia possibly due to dehydration. Started D5W at 100 mL/hr. Pending transfer to [facility] Review of Systems Review of Systems: All systems reviewed & are unremarkable except as noted in HPI and below Constitutional: Constitutional: Reports no additional constitutional complaints Eyes: Eyes: Reports no additional eye complaints ENT: Reports system reviewed and no additional complaints, except as documented Cardiovascular: Cardiovascular: Reports no additional cardiovascular compl aints Respiratory: Respiratory: Reports no additional respiratory complaints Gastrointestinal: Gastrointestinal: Reports no additional gastrointestinal complaints and Reports diarrhea Genitourinary: Genitourinary: Reports no additional female genitourinary complaints Musculoskeletal: Musculoskeletal: Reports no additional musculoskeletal complaints Integumentary/Breasts: Skin/Breast: Reports system reviewed and no additional complaints, except as docu and Reports as per HPI Neurologic: Reports system reviewed and no additional complaints, except as documented Psychiatric: Psychiatric: Reports no additional psychiatric complaints and Reports as per HPI Endocrine: Endocrine: Reports no additional endocrine complaints and Reports as per HPI Hematologic/Lymphatic: Hematologic/Lymphatic: Reports no additional hematologic/lymphatic complaints and Reports as per HPI Allergic/Immunologic: Allergic/Immunologic: Reports no additional allergic/immunologic complaints and Reports as per HPI Exam Narrative: GENERAL APPEARANCE: Appears to be in no acute distress. HEAD: normocephalic atraumatic EYES: EOMI. ENT: Hearing grossly intact, no nasal discharge NECK: Neck supple, trachea midline. CARDIAC: Normal S1/S2. Rhythm is regular. No murmurs, rubs, or gallops. No cyanosis or pallor. Extremities are warm and well perfused. LUNGS: Clear to auscultation without rales, rhonchi, wheezing. Breath sounds are bilaterally diminished.. Respirations even and unlabored. ABDOMEN: BS positive x 4 quadrants. Soft, nondistended, nontender. No guarding or rebound. MSK: No joint tenderness/swelling, fair strength in all extremities. PERIPHERAL VASCULAR: Peripheral pulses palpable. Normal perfusion, cap refill <2 seconds. No edema. NEURO: Follows commands. No focal deficits.Drowsy this am but oriented to self and situation. SKIN: [place] without lesions or eruptions. PSYCH: Stable, Const: General: cooperative, no acute distress, alert, awake and obese Nutritional Appearance: obese Orientation/consciousness: oriented to person, oriented to place and oriented to time HENMT: Head: normal to inspection and normocephalic Eyes: General: appearance normal, both eyes and all related structures Neck: Neck: normal visual inspection, full ROM and no lymphadenopathy Chest: Chest palpation & inspection: normal inspection of the chest Resp: Effort & Inspection: normal respiratory effort, able to speak in complete sentences and Actively coughing Auscultation: clear to auscultation bilaterally and diminished lung sounds bilateral in the lower lung forbes Cardio: Jugular venous distension: no JVD Palpation: normal PMI Rate: regular rate Rhythm: regular rhythm Heart sounds: S1 normal heart sound present and S2 normal heart sound present GI: Inspection: normal to inspection Auscultation: High-pitched bowel sounds present and Hyperactive bowel sounds present Rectal Exam: other (rectal tube in place, liquid stool noted) Other: rectal tube in place and draining liquid stool Urinary Catheter: Urinary Catheter: patent and draining and urine clear Skin: General skin exam: normal color and no rashes or lesions noted Neuro: General: oriented to person, oriented to place, oriented to time, tone normal and moves all extremities Extrem: General: normal to inspection and full ROM Psych: Appearance: grossly normal Mental Status: mental status grossly normal Speech and movement: Normal speech and movement present Objective Data Vital Signs Vital Signs: Vital Signs - 24 hr 07/25/24 21:03 07/25/24 21:45 07/26/24 05:39 Temperature 97.7 F 97.1 F L Pulse Rate 88 88 88 Respiratory Rate 18 14 Blood Pressure 144/61 H 153/76 H Pulse Oximetry 100 99 07/26/24 09:20 Temperature Pulse Rate 79 Respiratory Rate Blood Pressure Pulse Oximetry Intake/Output Intake/Output: Intake & Output 07/23/24 07/24/24 07/25/24 07/26/24 23:59 23:59 23:59 23:59 Intake Total 1507 837 490 480 Output Total 500 400 800 250 Balance 1007 437 -310 230 Meds/Results Medications: Active Medications Generic Name Dose Route Start Last Admin Trade Name Freq PRN Reason Stop Dose Admin Acetaminophen 1,000 mg 07/11/24 16:52 07/25/24 10:07 Acetaminophen 500 Mg Tablet PO 1,000 mg Q6H PRN Administration Mild Pain (1-3) or Fever Albuterol/Ipratropium 3 ml 07/19/24 17:28 Ipratropium 0.5 Mg/Albuterol Sulfate 2.5 Mg Ampul.Neb 3 Ml INHALATION Q6HRT PRN Wheezing Apixaban 5 mg 07/12/24 21:00 07/26/24 09:21 Apixaban 5 Mg Tablet PO 5 mg Q12HR SOLITARIO Administration Atorvastatin Calcium 80 mg 07/04/24 21:00 07/26/24 09:19 Atorvastatin 40 Mg Tablet PO 80 mg DAILY SOLITARIO Administration Calcium Carbonate 500 mg 07/14/24 08:00 07/26/24 09:20 Calcium Carbonate (Oscal) 500 Mg Tablet PO 500 mg BIDWM SOLITARIO Administration Cyanocobalamin 1,000 mcg 07/12/24 09:00 07/26/24 09:20 Cyanocobalamin 1,000 Mcg Tablet PO 1,000 mcg DAILY SOLITARIO Administration Dextrose 12.5 gm 07/20/24 16:44 Dextrose 50% 25 Gm/50 Ml Syringe IV PUSH PRN PRN Hypoglycemia Protocol Ferrous Sulfate 325 mg 07/15/24 09:00 07/26/24 09:19 Ferrous Sulfate [address] PO 325 mg DAILY SOLITARIO Administration Folic Acid 1 mg 07/03/24 09:00 07/26/24 09:20 Folic Acid 1 Mg Tablet PO 1 mg DAILY SOLITARIO Administration Glucagon 1 mg 07/20/24 16:44 Glucagon For Inj 1 Mg Vial IM PRN PRN Hypoglycemia Protocol Glucose 15 gm 07/20/24 16:44 07/20/24 17:02 Glucose Oral Gel 15 Gm Of Glucse In 37.5 Gm Tube PO 15 gm PRN PRN Administration Hypoglycemia Protocol Guaifenesin 1,200 mg 07/11/24 21:00 07/26/24 09:21 Guaifenesin 12 Hr 600 Mg Tabcr PO 1,200 mg Q12HR SOLITARIO Administration Dextrose 1,000 mls @ 100 mls/hr 07/20/24 16:44 Dextrose 5% 1,000 Ml IVPB PRN PRN Hypoglycemia Protocol Levetiracetam 500 mg 07/03/24 12:30 07/26/24 09:21 Levetiracetam 500 Mg Tablet PO 500 mg Q12HR SOLITARIO Administration Levothyroxine Sodium 75 mcg 07/03/24 06:30 07/26/24 05:45 Levothyroxine Sodium 75 Mcg Tablet PO 75 mcg DAILY@0630 SOLITARIO Administration Lidocaine 1 patch 07/12/24 09:00 07/26/24 09:21 Lidocaine 5% Patch TRANSDERM 1 patch DAILY SOLITARIO Administration Magnesium Oxide 400 mg 07/06/24 17:00 07/26/24 09:20 Magnesium Oxide 400 Mg Tablet PO 400 mg BID SOLITARIO Administration Metoprolol Tartrate 50 mg 07/03/24 09:00 07/26/24 09:20 Metoprolol Tartrate 50 Mg Tab PO 50 mg Q12HR SOLITARIO Administration Montelukast Sodium 10 mg 07/03/24 00:15 07/25/24 21:44 Montelukast Sodium 10 Mg Tablet PO 10 mg HS SOLITARIO Administration Olmesartan 40 mg 07/03/24 09:00 07/26/24 09:19 Olmesartan Medoxomil 20 Mg Tablet PO 40 mg DAILY SOLITARIO Administration Pantoprazole Sodium 40 mg 07/09/24 12:35 07/26/24 09:21 Pantoprazole Sodium Iv 40 Mg Vial IV PUSH 40 mg Q12HR SOLITARIO Administration Potassium Chloride 20 meq 07/25/24 09:00 07/26/24 09:19 Potassium Chloride 20 Meq Packet (For Liquid) PO 20 meq DAILY SOLITARIO Administration Saccharomyces Boulardii 250 mg 07/22/24 17:00 07/26/24 09:20 Saccharomyces Boulardii 250 Mg Capsule PO 250 mg BID SOLITARIO Administration Sodium Bicarbonate 650 mg 07/16/24 17:00 07/26/24 13:21 Sodium Bicarbonate Tab 650 Mg Tablet PO 650 mg TID SOLTIARIO Administration Sodium Chloride 20 ml 07/04/24 16:15 07/24/24 05:49 Central Line Flush IV PUSH 20 ml PRN PRN Administration after blood draws Sodium Chloride 10 ml 07/04/24 16:15 Central Line Flush IV PUSH PRN PRN with TPN bag changes Sodium Chloride 10 ml 07/04/24 22:00 07/26/24 13:21 Central Line Flush IV PUSH 10 ml Q8HR SOLITARIO Administration Trazodone HCl 100 mg 07/11/24 21:00 07/25/24 21:44 Trazodone Hcl 50 Mg Tablet PO 100 mg HS SOLITARIO Administration Vancomycin HCl 125 mg 07/20/24 18:00 07/26/24 13:20 Vancomycin Hcl 125 Mg Oral Capsule PO 07/30/24 17:59 125 mg Q6HR SOLITARIO Administration Radiology Results: ITS Impressions Head CT 07/02/24 14:34 IMPRESSION: 1. Normal aging brain. Abdomen/Pelvis CT 07/02/24 14:36 IMPRESSION: 1. Persistent small collection of extra luminal gas in the left lower quadrant anterior abdominal wall immediately adjacent to a region of inflammatory stranding surrounding the descending colon consistent with diverticulitis. No abscess or more remote free intraperineal gas or fluid. 2. Persistent moderate-sized bilateral posterior layering pleural effusions with dependent compressive atelectasis in the visualized lower lobes. Brain MRI 07/04/24 11:30 IMPRESSION: 1. 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 2. 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 3. Diffuse pachymeningeal enhancement. This finding is most commonly secondary to prior lumbar puncture or spine procedure. ADDENDUM: 07/04/24 1216 The contrast volume was 20 mL MultiHance. Venous Doppler Study 07/05/24 14:17 IMPRESSION: 1. Extensive deep vein thrombosis in right lower limb. I called this result to Elsy Tao. Chest X-Ray 07/17/24 18:28 IMPRESSION: 1. Airspace opacities at left lung base, consistent with atelectasis versus pneumonia. 2. Small left pleural effusion. Modified Barium Swallow 07/24/24 14:55 IMPRESSION: 1. Flash laryngeal penetration. 2. Please refer to the speech therapy report for recommendations. Labs Labs: Laboratory Results - last 24 hr 07/25/24 07/25/24 07/26/24 16:40 20:31 07:48 WBC RBC Hgb Hct MCV MCH MCHC RDW Plt Count MPV Sodium Potassium Chloride Carbon Dioxide Anion Gap BUN Creatinine Estim Creat Clear Calc Estimated GFR Glucose POC Capillary Glucose 96 81 76 Calcium Total Bilirubin AST ALT Alkaline Phosphatase Total Protein Albumin 07/26/24 07/26/24 07:49 11:55 WBC 6.6 RBC 3.32 L Hgb 10.2 L Hct 33.7 L MCV 101.5 H MCH 30.7 MCHC 30.3 L RDW 20.2 H Plt Count 181 MPV 11.3 H Sodium 146 H Potassium 4.5 Chloride 117 H Carbon Dioxide 22 Anion Gap 7 BUN 18 H Creatinine 1.02 H Estim Creat Clear Calc 49 Estimated GFR 53 L Glucose 81 POC Capillary Glucose 88 Calcium 8.3 L Total Bilirubin 0.6 AST 25 ALT 16 Alkaline Phosphatase 160 H Total Protein 5.0 L Albumin 2.1 L Quality VTE Prophylaxis VTE prophylaxis: pharmacologic ordered Hospitalist MIPS Advance Care Plan I have confirmed that the patient's Advanced Care Plan is present, code status is documented, or surrogate decision maker is listed in patient medical record.: Yes Medication Reconciliation I have utilized all available resources to obtain, update and review the patients current medications (includes all prescriptions, OTC, herbals, cannabis, and nutritional supplements).: Yes
--- NOTE | 2024-07-26 16:22 | PC.NURSE ---
I was asked to evaluate this patients PICC line due to difficulty flushing. Both lumens flushed with some difficulty, I was able to get blood return from the white lumen but not in the purple lumen. I changed the caps on both ports on assessment. It is my recommendation to obtain a chest xray to rule out any mechanical obstructions and to cathflo both lumens. I attempted to call the provider but calls went straight to voicemail. I informed the bedside RN of my assessment and recommendations.
[2024-07-26] MEDS: DEXTROSE 5% 1,000 ML 1,000 ML 100 ML IV CONT (17:06)
[2024-07-26 17:32] LABS: Glucose Point of Care 86 mg/dl (65-105)
[2024-07-26] MEDS: MONTELUKAST SODIUM 10 MG TABLET PO (21:32)
[2024-07-26] MEDS: traZODone HCL 50 MG TABLET 100 MG PO (21:32)
[2024-07-26 21:33] VITALS: PULSE 88
[2024-07-26 21:59] LABS: Glucose Point of Care 99 mg/dl (65-105)
[2024-07-26 22:00] VITALS: BP 135/63; PULSE 88; RESP 20; TEMP 36.2; O2SAT 100
[2024-07-27 05:40] VITALS: BP 126/57; PULSE 69; RESP 16; TEMP 36.8; O2SAT 99
[2024-07-27] MEDS: VANCOMYCIN HCL 125 MG ORAL CAPSULE PO ×3 (06:16→18:04)
[2024-07-27] MEDS: CENTRAL LINE FLUSH 10 ML IV PUSH ×3 (06:16→20:25)
[2024-07-27] MEDS: DEXTROSE 5% 1,000 ML 1,000 ML 100 ML IV CONT (06:16)
[2024-07-27] MEDS: LEVOTHYROXINE SODIUM 75 MCG TABLET PO (06:16)
[2024-07-27 08:00] VITALS: PULSE 89
[2024-07-27 08:02] LABS: Glucose Point of Care 106 mg/dl (65-105)
[2024-07-27] MEDS: levETIRAcetam 500 MG TABLET PO ×2 (09:03→20:25)
[2024-07-27] MEDS: guaiFENesin 12 HR 600 MG TABCR 1200 MG PO ×2 (09:03→20:25)
[2024-07-27] MEDS: POTASSIUM CHLORIDE 20 MEQ PACKET (FOR LIQUID) 10 MEQ PO (09:04)
[2024-07-27 09:05] VITALS: PULSE 89
[2024-07-27] MEDS: FOLIC ACID 1 MG TABLET PO (09:05)
[2024-07-27] MEDS: METOPROLOL TARTRATE 50 MG TAB PO ×2 (09:05→20:27)
[2024-07-27] MEDS: OLMESARTAN MEDOXOMIL 20 MG TABLET 40 MG PO (09:05)
[2024-07-27] MEDS: MAGNESIUM OXIDE 400 MG TABLET PO ×2 (09:05→18:04)
[2024-07-27] MEDS: CYANOCOBALAMIN 1,000 MCG TABLET 1000 MCG PO (09:06)
[2024-07-27] MEDS: FERROUS SULFATE 325 MG TABLET DR PO (09:06)
[2024-07-27] MEDS: SACCHAROMYCES BOULARDII 250 MG CAPSULE PO ×2 (09:06→18:04)
[2024-07-27] MEDS: ATORVASTATIN 40 MG TABLET 80 MG PO (09:06)
[2024-07-27] MEDS: SODIUM BICARBONATE TAB 650 MG TABLET PO ×3 (09:06→18:04)
[2024-07-27] MEDS: CALCIUM CARBONATE (OSCAL) 500 MG TABLET PO ×2 (09:06→18:04)
[2024-07-27] MEDS: PANTOPRAZOLE SODIUM IV 40 MG VIAL IV PUSH ×2 (09:07→20:24)
[2024-07-27] MEDS: APIXABAN 5 MG TABLET PO ×2 (09:07→20:24)
[2024-07-27] MEDS: LIDOCAINE 5% PATCH 1 PATCH TRANSDERM (09:07)
[2024-07-27 09:47] LABS: Alanine Aminotransferase 13 U/L (6-35); Alkaline Phosphatase 144 U/L (38-126); Anion Gap 2 mmol/L (4-12); Aspartate Amino Transferase 21 U/L (14-36); Bilirubin,Total 0.6 mg/dL (0.2-1.3); Blood Urea Nitrogen 15 mg/dL (7-17); Calcium 7.4 mg/dL (8.4-10.2); Carbon Dioxide 26 mmol/L (22-30); Chloride 108 mmol/L (98-107); Estimated CRCL calculation 54 ml/min; Estimated Glomerular Filt Rate 60; Glucose 102 mg/dL (65-110); Potassium 3.3 mmol/L (3.4-5.0); Sodium 136 mmol/L (137-145)
[2024-07-27 09:53] LABS: Hematocrit 31.5 % (37.0-47.0); Hemoglobin 9.7 g/dL (12.0-15.0); Mean Corpuscular HGB Conc 30.8 g/dl (32-36); Mean Corpuscular Hemoglobin 30.1 pg (26-34); Mean Corpuscular Volume 97.8 fl (80-100); Mean Platelet Volume 11.1 fl (7.4-10.4); Platelet Count Result 153 k/mm3 (150-375); Red Blood Count 3.22 M/mm3 (4.2-5.4); Red Cell Distribution Width 19.9 % (11.5-14.5); White Blood Count 6.4 K/mm3 (4.5-10.0)
[2024-07-27 11:49] LABS: Glucose Point of Care 106 mg/dl (65-105)
[2024-07-27] MEDS: ACETAMINOPHEN 500 MG TABLET 1000 MG PO ×2 (12:08→20:26)
--- NOTE | 2024-07-27 14:06 | P.PNIM_ITS ---
Progress Note: A&P Assessment and Plan (1) CVA (cerebral vascular accident): Code(s): I63.9 - Cerebral infarction, unspecified Status: Acute Assessment and Plan: 07/11/24: * MRA of brain showing acute infarct in the left frontoparietal lobe in the deep white matter * Left lower extremity weakness * PT and OT ordered * Continue atorvastatin, Plavix * Aspirin currently on hold as she is on Eliquis for DVT prophylaxis * A Neurology following 07/15 * continue Eliquis * neurology following 07/16 * No change 07/20 - Stable. On atorvastatin. Asa/plavix previously held. Apixaban resumed. (2) Seizure: Code(s): R56.9 - Unspecified convulsions Status: Acute Assessment and Plan: 07/11 * New onset * CT of the head was negative * MRI showing acute infarct in the left frontoparietal lobe in deep white matter * EEG findings abnormal read, cannot rule out seizure activity * Continue atorvastatin, Plavix * Will hold baby aspirin considering patient is on Eliquis * Continue Keppra * Continue seizure precautions * Cardiac telemetry stable, we will go ahead and discontinue continuous telemetry * Move out of IMU to regular med surge floor 07/15 * continue neuro checks * continue seizure precautions * continue Keppra, atorvastatin, Plavix * neurology following 07/16 * no change 07/18-07/20 - No new seizure activity. - Cont. keppra at 500mg bid. (3) C. difficile diarrhea: Code(s): A04.72 - Enterocolitis due to Clostridium difficile, not specified as recurrent Status: Acute Assessment and Plan: 07/11/24 * Continue vancomycin pulse dosing * Pulse taper vanc dose as follows: 125 mg orally 4 times daily for 10 to 14 days, then 125 mg orally twice daily for 7 days, then 125 mg orally once daily for 7 days, then 125 mg orally every 2 to 3 days for 2 to 8 weeks 07/15 * no change to current treatment plan 07/18 - Cont. current pulse/taper. Orders are in. 07/20: restarted Oral Vancomycin 07/21: patient completed 2 courses of fidaxomicin and Tapering dose of oral Vancomycin. Consulted GI for fecal microbiota transplantation Tested positive For C diff in November of 2021. Recent stool studies performed 06/21/2024 showed C diff positive. As per documentation patient received Dificid from 06/21-07/08. Started Vancomycin taper 07/08-07/19 and again started on Vancomycin taper on 07/20 [facility] accepted the patient for fecal transplant. Accepting hospitalist is and GI is (4) Diverticulitis of intestine with perforation without abscess: Qualifiers: Diverticulitis site: large intestine Diverticulitis bleeding: without bleeding Qualified Code(s): K57.20 - Diverticulitis of large intestine with perforation and abscess without bleeding Code(s): K57.80 - Diverticulitis of intestine, part unspecified, with perforation and abscess without bleeding Status: Acute Assessment and Plan: 07/11/24 * Failed Dificid * Continue oral vancomycin 07/15 * continue oral vancomycin 07/16 * No change 07/18 - Stable, completing oral vancomycin pulse/taper. 07/20: completed oral vancomycin Tested positive For C diff in November of 2021. Recent stool studies performed 06/21/2024 showed C diff positive. As per documentation patient received Dificid from 06/21-07/08. Started Vancomycin taper 07/08-07/19 and again started on Vancomycin taper on 07/20 (5) Anemia: Qualifiers: Anemia type: due to chronic kidney disease Chronic kidney disease stage: unspecified stage Qualified Code(s): N18.9 - Chronic kidney disease, unspecified; D63.1 - Anemia in chronic kidney disease Code(s): D64.9 - Anemia, unspecified Status: Acute Assessment and Plan: 07/11/24 * Continue to transfuse for hemoglobin less than 7 * Patient receive 1 unit of blood this admission * Currently on Eliquis, Plavix * Will hold aspirin * Continue to trend 07/15 * hemoglobin 7.5 * no change to current treatment plan 07/18 - S/P 2 units prbc overnight with improvement noted on overnight labs. - Resume anticoag. - GI had been consulted, not able to perform colonoscopy currently with diverticulitis, patient had previously refused as well. (6) Acute DVT (deep venous thrombosis): Code(s): I82.409 - Acute embolism and thrombosis of unspecified deep veins of unspecified lower extremity Status: Acute Assessment and Plan: 07/11/24 * Venous Doppler showing extensive right lower extremity DVT * Patient was started on Lovenox and then switched to heparin infusion on 07/09/2024. She later developed dark tarry stools and a drop in her hemoglobin requiring blood transfusion. Heparin drip was placed on hold for 24 hours and then she was restarted on Eliquis 10 mg daily x7 days--standard protocol * General surgery was consulted for IVC filter however she is not a candidate at this time due to her other comorbidities * Continue Eliquis as stated above 07/15 * continue Eliquis 07/16 * No change 07/18 - Eliquis held overnight d/t needing two units prbc. - Stable hgb resuming eliquis. 07/20: Resumed Eliquis. Will monitor H and H (7) Occult blood in stools: Code(s): R19.5 - Other fecal abnormalities Status: Acute Assessment and Plan: 07/11/24 * Patient was occult blood positive on 07/09/2024 * She was given 1 unit of blood * H&H is stable * GI recommending outpatient colonoscopy considering her comorbidities * Recently diagnosed with diverticulitis and C diff colitis 07/15 * hemoglobin 7.5 * continue to trend 07/16 * No change 07/18 - Transfused two units prbc overnight with appropriate rise in hgb on repeat labs overnight. - Apixaban will resume. (8) Delirium: Code(s): R41.0 - Disorientation, unspecified Status: Acute Assessment and Plan: 07/15 * more confused today * continue neuro checks * encourage good sleep hygiene 07/16 * continue neuro checks * currently alert and oriented x3 07/18 - Drowsy this am but rousable and and answers questions. Improved later in the am. No focal deficits. - Cont. to monitor closely for developing infection - post influenza pna, UTI, etc. Check urine this am, pending. - Treating for pna. (9) Pneumonia: Code(s): J18.9 - Pneumonia, unspecified organism Status: Acute Assessment and Plan: 07/18 - Slightly less oriented than reported from day prior this morning, improving in the late morning, cxr shows infiltrate. Plan to start ceftriaxone/zithromycin today day 1. (10) Upper respiratory infection: Code(s): J06.9 - Acute upper respiratory infection, unspecified Status: Acute Assessment and Plan: 07/11/24 * Patient reported cold-like symptoms with a nonproductive cough and wheezing * Will check for influenza a and B, RSV, COVID * Start DuoNebs q.6 hour * Will obtain chest x-ray * Incentive spirometry while awake * Pep therapy with cornet flutter valve 07/15 * no change to current treatment plan 07/17 * Chest x-ray ordered * Still coarse rhonchi * Patient finished course Tamiflu for influenza a * Continue incentive spirometry and pep therapy 07/18 - Completed tamiflu, breathing easily. Lungs diminished bilaterally with slightly coarse rales in the right. (11) Urinary retention: Code(s): R33.9 - Retention of urine, unspecified Status: Acute Assessment and Plan: 07/11/24: * Patient had acute urinary retention requiring Fitzpatrick on 07/03/24 * Urology was consulted * Patient failed voiding trial * Patient will keep catheter and repeat voiding trial in 1-2 weeks on an outpatient basis with Urology 07/15 * no change to current treatment plan 07/18 - Catheter in place, consider trial of voiding 07/25 at the two week kelly. (12) Hypokalemia: Code(s): E87.6 - Hypokalemia Status: Acute Assessment and Plan: 07/11/24: * Potassium 4.3 * No need for replacement * Resolved 07/15 * potassium 3.5 * no replacement needed 07/16 * potassium 3.7 * no replacement needed (13) Hypothyroidism: Qualifiers: Hypothyroidism type: unspecified Qualified Code(s): E03.9 - Hypothyroi dism, unspecified Code(s): E03.9 - Hypothyroidism, unspecified Status: Chronic Assessment and Plan: 07/11/24 * Continue Synthroid 07/15 * no change to current treatment plan 07/18 - Cont. current. (14) Hypertension: Qualifiers: Hypertension type: primary hypertension Qualified Code(s): I10 - Essential (primary) hypertension Code(s): I10 - Essential (primary) hypertension Status: Chronic Assessment and Plan: -Blood pressure ranging 105/ 81 to 146/73 - Continue metoprolol, Benicar and monitor. -no change to current treatment plan -BP generally 130-140, trending higher this am, consider uptitration if trend continues. (15) Dysphagia: Qualifiers: Dysphagia type: esophageal phase Qualified Code(s): R13.19 - Other dysphagia Code(s): R13.10 - Dysphagia, unspecified Status: Acute Assessment and Plan: Last EGD with dilation 05/15/2024 revealed a small hiatal hernia but no findings to explain symptoms. Following her EGD esophageal manometry was recommended to rule out achalasia but this was not arranged. Patient states that for the past 2 months she has been having postprandial nausea and vomiting. She is still having intermittent swallowing difficulty with solids, liquids, and pills. * esophagram ordered, if workup is unremarkable and symptoms persist we can arrange an esophageal manometry or endo flip as outpatient * continue supportive care with antiemetics (16) Hypernatremia: Code(s): E87.0 - Hyperosmolality and hypernatremia Status: Acute Assessment and Plan: Possibly due to her dehydration Started D5W at 100 mL per Plan Melissa Tom is a 73 year old female initially presenting with AMS found to have CVA and seizure with failed o/p management of c.diff/diverticulitis. Complicated hospital course with acute VTE of the lower ext, anemia requiring transfusions, most recent 2 units on 07/17/24. She has developed urinary retention and fitzpatrick has been in place. Completed tamiflu for influenza A yesterday - a focal infiltrate is now noted and patient less oriented. Abx for pna have been started today, 07/18/24. Subjective Date/time seen: 07/27/24 14:06 Interval history: Patient is oriented to AO x4. Patient reports that she never want to be intubated or have chest compression. The patient initially reported she wanted to go home but I updated her status and then she agrees to [facility]. Called niece Crystal Siegel and updated her status.Called her son but he didnt pick. Review of Systems Review of Systems: All systems reviewed & are unremarkable except as noted in HPI and below Constitutional: Constitutional: Reports no additional constitutional complaints Eyes: Eyes: Reports no additional eye complaints ENT: Reports system reviewed and no additional complaints, except as documented Cardiovascular: Cardiovascular: Reports no additional cardiovascular complaints Respiratory: Respiratory: Reports no additional respiratory complaints Gastrointestinal: Gastrointestinal: Reports no additional gastrointestinal complaints and Reports diarrhea Genitourinary: Genitourinary: Reports no additional female genitourinary c omplaints Musculoskeletal: Musculoskeletal: Reports no additional musculoskeletal complaints Integumentary/Breasts: Skin/Breast: Reports system reviewed and no additional complaints, except as docu and Reports as per HPI Neurologic: Reports system reviewed and no additional complaints, except as documented Psychiatric: Psychiatric: Reports no additional psychiatric complaints and Reports as per HPI Endocrine: Endocrine: Reports no additional endocrine complaints and Reports as per HPI Hematologic/Lymphatic: Hematologic/Lymphatic: Reports no additional hematologic/lymphatic complaints and Reports as per HPI Allergic/Immunologic: Allergic/Immunologic: Reports no additional allergic/immunologic complaints and Reports as per HPI Exam Narrative: GENERAL APPEARANCE: Appears to be in no acute distress. HEAD: normocephalic atraumatic EYES: EOMI. ENT: Hearing grossly intact, no nasal discharge NECK: Neck supple, trachea midline. CARDIAC: Normal S1/S2. Rhythm is regular. No murmurs, rubs, or gallops. No cyanosis or pallor. Extremities are warm and well perfused. LUNGS: Clear to auscultation without rales, rhonchi, wheezing. Breath sounds are bilaterally diminished.. Respirations even and unlabored. ABDOMEN: BS positive x 4 quadrants. Soft, nondistended, nontender. No guarding or rebound. MSK: No joint tenderness/swelling, fair strength in all extremities. PERIPHERAL VASCULAR: Peripheral pulses palpable. Normal perfusion, cap refill <2 seconds. No edema. NEURO: Follows commands. No focal deficits.Drowsy this am but oriented to self and situation. SKIN: [place] without lesions or eruptions. PSYCH: Stable, Const: General: cooperative, no acute distress, alert, awake and obese Nutritional Appearance: obese Orientation/consciousness: oriented to person, oriented to place and oriented to time HENMT: Head: normal to inspection and normocephalic Eyes: General: appearance normal, both eyes and all related structures Neck: Neck: normal visual inspection, full ROM and no lymphadenopathy Chest: Chest palpation & inspection: normal inspection of the chest Resp: Effort & Inspection: normal respiratory effort, able to speak in complete sentences and Actively coughing Auscultation: clear to auscultation bilaterally and diminished lung sounds bilateral in the lower lung forbes Cardio: Jugular venous distension: no JVD Palpation: normal PMI Rate: regular rate Rhythm: regular rhythm Heart sounds: S1 normal heart sound present and S2 normal heart sound present GI: Inspection: normal to inspection Auscultation: High-pitched bowel sounds present and Hyperactive bowel sounds present Rectal Exam: other (rectal tube in place, liquid stool noted) Other: rectal tube in place and draining liquid stool Urinary Catheter: Urinary Catheter: patent and draining and urine clear Skin: General skin exam: normal color and no rashes or lesions noted Neuro: General: oriented to person, oriented to place, oriented to time, tone normal and moves all extremities Extrem: General: normal to inspection and full ROM Psych: Appearance: grossly normal Mental Status: mental status grossly normal Speech and movement: Normal speech and movement present Objective Data Vital Signs Vital Signs: Vital Signs - 24 hr 07/26/24 20:00 07/26/24 21:33 07/26/24 22:00 Temperature 97.1 F L Pulse Rate 88 88 Respiratory Rate 20 Blood Pressure 135/63 Pulse Oximetry 100 Oxygen Delivery Room Air Fraction of Inspired Oxygen 21 07/27/24 05:40 07/27/24 08:00 07/27/24 09:05 Temperature 98.3 F Pulse Rate 69 89 89 Respiratory Rate 16 Blood Pressure 126/57 L Pulse Oximetry 99 Oxygen Delivery Room Air Fraction of Inspired Oxygen Intake/Output Intake/Output: Intake & Output 07/24/24 07/25/24 07/26/24 07/27/24 23:59 23:59 23:59 23:59 Intake Total 837 417 973 0178 Output Total 400 800 600 1 Balance 021 -065 -[id number] Meds/Results Medications: Active Medications Generic Name Dose Route Start Last Admin Trade Name Freq PRN Reason Stop Dose Admin Acetaminophen 1,000 mg 07/11/24 16:52 07/27/24 12:08 Acetaminophen 500 Mg Tablet PO 1,000 mg Q6H PRN Administration Mild Pain (1-3) or Fever Albuterol/Ipratropium 3 ml 07/19/24 17:28 Ipratropium 0.5 Mg/Albuterol Sulfate 2.5 Mg Ampul.Neb 3 Ml INHALATION Q6HRT PRN Wheezing Apixaban 5 mg 07/12/24 21:00 07/27/24 09:07 Apixaban 5 Mg Tablet PO 5 mg Q12HR SOLITARIO Administration Atorvastatin Calcium 80 mg 07/04/24 21:00 07/27/24 09:06 Atorvastatin 40 Mg Tablet PO 80 mg DAILY SOLITARIO Administration Calcium Carbonate 500 mg 07/14/24 08:00 07/27/24 09:06 Calcium Carbonate (Oscal) 500 Mg Tablet PO 500 mg BIDWM SOLITARIO Administration Cyanocobalamin 1,000 mcg 07/12/24 09:00 07/27/24 09:06 Cyanocobalamin 1,000 Mcg Tablet PO 1,000 mcg DAILY SOLITARIO Administration Dextrose 12.5 gm 07/20/24 16:44 Dextrose 50% 25 Gm/50 Ml Syringe IV PUSH PRN PRN Hypoglycemia Protocol Ferrous Sulfate 325 mg 07/15/24 09:00 07/27/24 09:06 Ferrous Sulfate [address] PO 325 mg DAILY SOLITARIO Administration Folic Acid 1 mg 07/03/24 09:00 07/27/24 09:05 Folic Acid 1 Mg Tablet PO 1 mg DAILY SOLITARIO Administration Glucagon 1 mg 07/20/24 16:44 Glucagon For Inj 1 Mg Vial IM PRN PRN Hypoglycemia Protocol Glucose 15 gm 07/20/24 16:44 07/20/24 17:02 Glucose Oral Gel 15 Gm Of Glucse In 37.5 Gm Tube PO 15 gm PRN PRN Administration Hypoglycemia Protocol Guaifenesin 1,200 mg 07/11/24 21:00 07/27/24 09:03 Guaifenesin 12 Hr 600 Mg Tabcr PO 1,200 mg Q12HR SOLITARIO Administration Dextrose 1,000 mls @ 100 mls/hr 07/20/24 16:44 Dextrose 5% 1,000 Ml IVPB PRN PRN Hypoglycemia Protocol Dextrose 1,000 mls @ 100 mls/hr 07/26/24 14:30 07/27/24 12:08 Dextrose 5% 1,000 Ml IV CONT Not Given .Q10H SOLITARIO Levetiracetam 500 mg 07/03/24 12:30 07/27/24 09:03 Levetiracetam 500 Mg Tablet PO 500 mg Q12HR SOLITARIO Administration Levothyroxine Sodium 75 mcg 07/03/24 06:30 07/27/24 06:16 Levothyroxine Sodium 75 Mcg Tablet PO 75 mcg DAILY@0630 SOLITARIO Administration Lidocaine 1 patch 07/12/24 09:00 07/27/24 09:07 Lidocaine 5% Patch TRANSDERM 1 patch DAILY SOLITARIO Administration Magnesium Oxide 400 mg 07/06/24 17:00 07/27/24 09:05 Magnesium Oxide 400 Mg Tablet PO 400 mg BID SOLITARIO Administration Metoprolol Tartrate 50 mg 07/03/24 09:00 07/27/24 09:05 Metoprolol Tartrate 50 Mg Tab PO 50 mg Q12HR SOLITARIO Administration Montelukast Sodium 10 mg 07/03/24 00:15 07/26/24 21:32 Montelukast Sodium 10 Mg Tablet PO 10 mg HS SOLITARIO Administration Olmesartan 40 mg 07/03/24 09:00 07/27/24 09:05 Olmesartan Medoxomil 20 Mg Tablet PO 40 mg DAILY SOLITARIO Administration Pantoprazole Sodium 40 mg 07/09/24 12:35 07/27/24 09:07 Pantoprazole Sodium Iv 40 Mg Vial IV PUSH 40 mg Q12HR SOLITARIO Administration Potassium Chloride 10 meq 07/27/24 09:00 07/27/24 09:04 Potassium Chloride 20 Meq Packet (For Liquid) PO 10 meq DAILY SOLITARIO Administration Saccharomyces Boulardii 250 mg 07/22/24 17:00 07/27/24 09:06 Saccharomyces Boulardii 250 Mg Capsule PO 250 mg BID SOLITARIO Administration Sodium Bicarbonate 650 mg 07/16/24 17:00 07/27/24 12:10 Sodium Bicarbonate Tab 650 Mg Tablet PO 650 mg TID SOLITARIO Administration Sodium Chloride 20 ml 07/04/24 16:15 07/24/24 05:49 Central Line Flush IV PUSH 20 ml PRN PRN Administration after blood draws Sodium Chloride 10 ml 07/04/24 16:15 Central Line Flush IV PUSH PRN PRN with TPN bag changes Sodium Chloride 10 ml 07/04/24 22:00 07/27/24 12:10 Central Line Flush IV PUSH 10 ml Q8HR SOLITARIO Administration Trazodone HCl 100 mg 07/11/24 21:00 07/26/24 21:32 Trazodone Hcl 50 Mg Tablet PO 100 mg HS SOLITARIO Administration Vancomycin HCl 125 mg 07/20/24 18:00 07/27/24 12:10 Vancomycin Hcl 125 Mg Oral Capsule PO 07/30/24 17:59 125 mg Q6HR SOLITARIO Administration Radiology Results: ITS Impressions Head CT 07/02/24 14:34 IMPRESSION: 1. Normal aging brain. Abdomen/Pelvis CT 07/02/24 14:36 IMPRESSION: 1. Persistent small collection of extra luminal gas in the left lower quadrant anterior abdominal wall immediately adjacent to a region of inflammatory stranding surrounding the descending colon consistent with diverticulitis. No abscess or more remote free intraperineal gas or fluid. 2. Persistent moderate-sized bilateral posterior layering pleural effusions with dependent compressive atelectasis in the visualized lower lobes. Brain MRI 07/04/24 11:30 IMPRESSION: 1. 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 2. 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 3. Diffuse pachymeningeal enhancement. This finding is most commonly secondary to prior lumbar puncture or spine procedure. ADDENDUM: 07/04/24 1216 The contrast volume was 20 mL MultiHance. Venous Doppler Study 07/05/24 14:17 IMPRESSION: 1. Extensive deep vein thrombosis in right lower limb. I called this result to Elsy Tao. Chest X-Ray 07/17/24 18:28 IMPRESSION: 1. Airspace opacities at left lung base, consistent with atelectasis versus pneumonia. 2. Small left pleural effusion. Modified Barium Swallow 07/24/24 14:55 IMPRESSION: 1. Flash laryngeal penetration. 2. Please refer to the speech therapy report for recommendations. Labs Labs: Laboratory Results - last 24 hr 07/26/24 07/26/24 07/27/24 17:18 20:45 07:58 WBC RBC Hgb Hct MCV MCH MCHC RDW Plt Count MPV Sodium Potassium Chloride Carbon Dioxide Anion Gap BUN Creatinine Estim Creat Clear Calc Estimated GFR Glucose POC Capillary Glucose 86 99 106 H Calcium Total Bilirubin AST ALT Alkaline Phosphatase Total Protein Albumin 07/27/24 07/27/24 09:24 11:45 WBC 6.4 RBC 3.22 L Hgb 9.7 L Hct 31.5 L MCV 97.8 MCH 30.1 MCHC 30.8 L RDW 19.9 H Plt Count 153 MPV 11.1 H Sodium 136 L Potassium 3.3 L Chloride 108 H Carbon Dioxide 26 Anion Gap 2 L BUN 15 Creatinine 0.91 Estim Creat Clear Calc 54 Estimated GFR 60 Glucose 102 POC Capillary Glucose 106 H Calcium 7.4 L Total Bilirubin 0.6 AST 21 ALT 13 Alkaline Phosphatase 144 H Total Protein 5.0 L Albumin 2.0 L Quality VTE Prophylaxis VTE prophylaxis: pharmacologic ordered Hospitalist MIPS Advance Care Plan I have confirmed that the patient's Advanced Care Plan is present, code status is documented, or surrogate decision maker is listed in patient medical record.: Yes Medication Reconciliation I have utilized all available resources to obtain, update and review the patients current medications (includes all prescriptions, OTC, herbals, cannabis, and nutritional supplements).: Yes
[2024-07-27 15:32] VITALS: BP 122/52; PULSE 71; RESP 16; TEMP 36.4; O2SAT 99
[2024-07-27 17:02] LABS: Glucose Point of Care 111 mg/dl (65-105)
[2024-07-27 20:14] LABS: Glucose Point of Care 108 mg/dl (65-105)
[2024-07-27] MEDS: MONTELUKAST SODIUM 10 MG TABLET PO (20:24)
[2024-07-27] MEDS: traZODone HCL 50 MG TABLET 100 MG PO (20:25)
[2024-07-27 20:27] VITALS: PULSE 64
[2024-07-27 21:45] VITALS: BP 124/63; PULSE 78; RESP 16; TEMP 36.8; O2SAT 98
[2024-07-28] MEDS: VANCOMYCIN HCL 125 MG ORAL CAPSULE PO ×4 (00:33→17:37)
[2024-07-28] MEDS: DEXTROSE 5% 1,000 ML 1,000 ML 100 ML IV CONT (00:33)
[2024-07-28] MEDS: CENTRAL LINE FLUSH 10 ML IV PUSH ×3 (05:49→20:59)
[2024-07-28] MEDS: LEVOTHYROXINE SODIUM 75 MCG TABLET PO (05:49)
[2024-07-28 05:54] VITALS: BP 128/66; PULSE 71; RESP 16; TEMP 36.7; O2SAT 99
[2024-07-28 07:48] LABS: Glucose Point of Care 111 mg/dl (65-105)
[2024-07-28] MEDS: guaiFENesin 12 HR 600 MG TABCR 1200 MG PO ×2 (09:43→20:58)
[2024-07-28] MEDS: OLMESARTAN MEDOXOMIL 20 MG TABLET 40 MG PO (09:43)
[2024-07-28] MEDS: CYANOCOBALAMIN 1,000 MCG TABLET 1000 MCG PO (09:43)
[2024-07-28] MEDS: levETIRAcetam 500 MG TABLET PO ×2 (09:43→20:58)
[2024-07-28] MEDS: APIXABAN 5 MG TABLET PO ×2 (09:43→20:58)
[2024-07-28] MEDS: FERROUS SULFATE 325 MG TABLET DR PO (09:43)
[2024-07-28] MEDS: MAGNESIUM OXIDE 400 MG TABLET PO ×2 (09:43→17:37)
[2024-07-28] MEDS: SODIUM BICARBONATE TAB 650 MG TABLET PO ×3 (09:43→17:37)
[2024-07-28] MEDS: FOLIC ACID 1 MG TABLET PO (09:43)
[2024-07-28] MEDS: ATORVASTATIN 40 MG TABLET 80 MG PO (09:43)
[2024-07-28] MEDS: POTASSIUM CHLORIDE 20 MEQ PACKET (FOR LIQUID) 10 MEQ PO (09:44)
[2024-07-28] MEDS: LIDOCAINE 5% PATCH 1 PATCH TRANSDERM (09:44)
[2024-07-28 09:45] VITALS: PULSE 80
[2024-07-28] MEDS: METOPROLOL TARTRATE 50 MG TAB PO ×2 (09:45→20:58)
[2024-07-28] MEDS: PANTOPRAZOLE SODIUM IV 40 MG VIAL IV PUSH ×2 (09:46→20:59)
[2024-07-28 10:52] LABS: Hematocrit 32.8 % (37.0-47.0); Hemoglobin 10.6 g/dL (12.0-15.0); Mean Corpuscular HGB Conc 32.3 g/dl (32-36); Mean Corpuscular Hemoglobin 31.1 pg (26-34); Mean Corpuscular Volume 96.2 fl (80-100); Mean Platelet Volume 10.8 fl (7.4-10.4); Platelet Count Result 213 k/mm3 (150-375); Red Blood Count 3.41 M/mm3 (4.2-5.4); Red Cell Distribution Width 19.4 % (11.5-14.5); White Blood Count 8.1 K/mm3 (4.5-10.0)
[2024-07-28 11:03] LABS: Alanine Aminotransferase 13 U/L (6-35); Alkaline Phosphatase 144 U/L (38-126); Anion Gap 4 mmol/L (4-12); Aspartate Amino Transferase 23 U/L (14-36); Bilirubin,Total 0.6 mg/dL (0.2-1.3); Blood Urea Nitrogen 14 mg/dL (7-17); Calcium 7.5 mg/dL (8.4-10.2); Carbon Dioxide 23 mmol/L (22-30); Chloride 105 mmol/L (98-107); Estimated CRCL calculation 58 ml/min; Estimated Glomerular Filt Rate > 60; Glucose 97 mg/dL (65-110); Potassium 3.2 mmol/L (3.4-5.0); Sodium 132 mmol/L (137-145)
[2024-07-28 12:14] LABS: Glucose Point of Care 95 mg/dl (65-105)
--- NOTE | 2024-07-28 13:48 | P.PNIM_ITS ---
Progress Note: A&P Assessment and Plan (1) CVA (cerebral vascular accident): Code(s): I63.9 - Cerebral infarction, unspecified Status: Acute Assessment and Plan: 07/11/24: * MRA of brain showing acute infarct in the left frontoparietal lobe in the deep white matter * Left lower extremity weakness * PT and OT ordered * Continue atorvastatin, Plavix * Aspirin currently on hold as she is on Eliquis for DVT prophylaxis * A Neurology following 07/15 * continue Eliquis * neurology following 07/16 * No change 07/20 - Stable. On atorvastatin. Asa/plavix previously held. Apixaban resumed. (2) Seizure: Code(s): R56.9 - Unspecified convulsions Status: Acute Assessment and Plan: 07/11 * New onset * CT of the head was negative * MRI showing acute infarct in the left frontoparietal lobe in deep white matter * EEG findings abnormal read, cannot rule out seizure activity * Continue atorvastatin, Plavix * Will hold baby aspirin considering patient is on Eliquis * Continue Keppra * Continue seizure precautions * Cardiac telemetry stable, we will go ahead and discontinue continuous telemetry * Move out of IMU to regular med surge floor 07/15 * continue neuro checks * continue seizure precautions * continue Keppra, atorvastatin, Plavix * neurology following 07/16 * no change 07/18-07/20 - No new seizure activity. - Cont. keppra at 500mg bid. (3) C. difficile diarrhea: Code(s): A04.72 - Enterocolitis due to Clostridium difficile, not specified as recurrent Status: Acute Assessment and Plan: 07/11/24 * Continue vancomycin pulse dosing * Pulse taper vanc dose as follows: 125 mg orally 4 times daily for 10 to 14 days, then 125 mg orally twice daily for 7 days, then 125 mg orally once daily for 7 days, then 125 mg orally every 2 to 3 days for 2 to 8 weeks 07/15 * no change to current treatment plan 07/18 - Cont. current pulse/taper. Orders are in. 07/20: restarted Oral Vancomycin 07/21: patient completed 2 courses of fidaxomicin and Tapering dose of oral Vancomycin. Consulted GI for fecal microbiota transplantation Tested positive For C diff in November of 2021. Recent stool studies performed 06/21/2024 showed C diff positive. As per documentation patient received Dificid from 06/21-07/08. Started Vancomycin taper 07/08-07/19 and again started on Vancomycin taper on 07/20 [facility] accepted the patient for fecal transplant. Accepting hospitalist is and GI is (4) Diverticulitis of intestine with perforation without abscess: Qualifiers: Diverticulitis bleeding: without bleeding Diverticulitis site: large intestine Qualified Code(s): K57.20 - Diverticulitis of large intestine with perforation and abscess without bleeding Code(s): K57.80 - Diverticulitis of intestine, part unspecified, with perforation and abscess without bleeding Status: Acute Assessment and Plan: 07/11/24 * Failed Dificid * Continue oral vancomycin 07/15 * continue oral vancomycin 07/16 * No change 07/18 - Stable, completing oral vancomycin pulse/taper. 07/20: completed oral vancomycin Tested positive For C diff in November of 2021. Recent stool studies performed 06/21/2024 showed C diff positive. As per documentation patient received Dificid from 06/21-07/08. Started Vancomycin taper 07/08-07/19 and again started on Vancomycin taper on 07/20 (5) Anemia: Qualifiers: Anemia type: due to chronic kidney disease Chronic kidney disease stage: unspecified stage Qualified Code(s): N18.9 - Chronic kidney disease, unspecified; D63.1 - Anemia in chronic kidney disease Code(s): D64.9 - Anemia, unspecified Status: Acute Assessment and Plan: 07/11/24 * Continue to transfuse for hemoglobin less than 7 * Patient receive 1 unit of blood this admission * Currently on Eliquis, Plavix * Will hold aspirin * Continue to trend 07/15 * hemoglobin 7.5 * no change to current treatment plan 07/18 - S/P 2 units prbc overnight with improvement noted on overnight labs. - Resume anticoag. - GI had been consulted, not able to perform colonoscopy currently with diverticulitis, patient had previously refused as well. (6) Acute DVT (deep venous thrombosis): Code(s): I82.409 - Acute embolism and thrombosis of unspecified deep veins of unspecified lower extremity Status: Acute Assessment and Plan: 07/11/24 * Venous Doppler showing extensive right lower extremity DVT * Patient was started on Lovenox and then switched to heparin infusion on 07/09/2024. She later developed dark tarry stools and a drop in her hemoglobin requiring blood transfusion. Heparin drip was placed on hold for 24 hours and then she was restarted on Eliquis 10 mg daily x7 days--standard protocol * General surgery was consulted for IVC filter however she is not a candidate at this time due to her other comorbidities * Continue Eliquis as stated above 07/15 * continue Eliquis 07/16 * No change 07/18 - Eliquis held overnight d/t needing two units prbc. - Stable hgb resuming eliquis. 07/20: Resumed Eliquis. Will monitor H and H (7) Occult blood in stools: Code(s): R19.5 - Other fecal abnormalities Status: Acute Assessment and Plan: 07/11/24 * Patient was occult blood positive on 07/09/2024 * She was given 1 unit of blood * H&H is stable * GI recommending outpatient colonoscopy considering her comorbidities * Recently diagnosed with diverticulitis and C diff colitis 07/15 * hemoglobin 7.5 * continue to trend 07/16 * No change 07/18 - Transfused two units prbc overnight with appropriate rise in hgb on repeat labs overnight. - Apixaban will resume. (8) Delirium: Code(s): R41.0 - Disorientation, unspecified Status: Acute Assessment and Plan: 07/15 * more confused today * continue neuro checks * encourage good sleep hygiene 07/16 * continue neuro checks * currently alert and oriented x3 07/18 - Drowsy this am but rousable and and answers questions. Improved later in the am. No focal deficits. - Cont. to monitor closely for developing infection - post influenza pna, UTI, etc. Check urine this am, pending. - Treating for pna. (9) Pneumonia: Code(s): J18.9 - Pneumonia, unspecified organism Status: Acute Assessment and Plan: 07/18 - Slightly less oriented than reported from day prior this morning, improving in the late morning, cxr shows infiltrate. Plan to start ceftriaxone/zithromycin today day 1. (10) Upper respiratory infection: Code(s): J06.9 - Acute upper respiratory infection, unspecified Status: Acute Assessment and Plan: 07/11/24 * Patient reported cold-like symptoms with a nonproductive cough and wheezing * Will check for influenza a and B, RSV, COVID * Start DuoNebs q.6 hour * Will obtain chest x-ray * Incentive spirometry while awake * Pep therapy with cornet flutter valve 07/15 * no change to current treatment plan 07/17 * Chest x-ray ordered * Still coarse rhonchi * Patient finished course Tamiflu for influenza a * Continue incentive spirometry and pep therapy 07/18 - Completed tamiflu, breathing easily. Lungs diminished bilaterally with slightly coarse rales in the right. (11) Urinary retention: Code(s): R33.9 - Retention of urine, unspecified Status: Acute Assessment and Plan: 07/11/24: * Patient had acute urinary retention requiring Fitzpatrick on 07/03/24 * Urology was consulted * Patient failed voiding trial * Patient will keep catheter and repeat voiding trial in 1-2 weeks on an outpatient basis with Urology 07/15 * no change to current treatment plan 07/18 - Catheter in place, consider trial of voiding 07/25 at the two week kelly. (12) Hypokalemia: Code(s): E87.6 - Hypokalemia Status: Acute Assessment and Plan: 07/11/24: * Potassium 4.3 * No need for replacement * Resolved 07/15 * potassium 3.5 * no replacement needed 07/16 * potassium 3.7 * no replacement needed (13) Hypothyroidism: Qualifiers: Hypothyroidism type: unspecified Qualified Code(s): E03.9 - Hypothyroi dism, unspecified Code(s): E03.9 - Hypothyroidism, unspecified Status: Chronic Assessment and Plan: 07/11/24 * Continue Synthroid 07/15 * no change to current treatment plan 07/18 - Cont. current. (14) Hypertension: Qualifiers: Hypertension type: primary hypertension Qualified Code(s): I10 - Essential (primary) hypertension Code(s): I10 - Essential (primary) hypertension Status: Chronic Assessment and Plan: -Blood pressure ranging 105/ 81 to 146/73 - Continue metoprolol, Benicar and monitor. -no change to current treatment plan -BP generally 130-140, trending higher this am, consider uptitration if trend continues. (15) Dysphagia: Qualifiers: Dysphagia type: esophageal phase Qualified Code(s): R13.19 - Other dysphagia Code(s): R13.10 - Dysphagia, unspecified Status: Acute Assessment and Plan: Last EGD with dilation 05/15/2024 revealed a small hiatal hernia but no findings to explain symptoms. Following her EGD esophageal manometry was recommended to rule out achalasia but this was not arranged. Patient states that for the past 2 months she has been having postprandial nausea and vomiting. She is still having intermittent swallowing difficulty with solids, liquids, and pills. * esophagram ordered, if workup is unremarkable and symptoms persist we can arrange an esophageal manometry or endo flip as outpatient * continue supportive care with antiemetics (16) Hypernatremia: Code(s): E87.0 - Hyperosmolality and hypernatremia Status: Acute Assessment and Plan: Resolved Possibly due to her dehydration DC D5W Plan Melissa Tom is a 73 year old female hypertension, chronic obstructive pulmonary disease, obstructive sleep apnea intolerant to CPAP, hypothyroidism, gout, anxiety, and Clostridium difficile diarrhea who presented to the emergency department via EMS from [facility] for evaluation of altered mental status. Hospital course is complicated and initially presenting with AMS found to have CVA and seizure with failed o/p management of c.diff/diverticulitis. Complicated hospital course with acute CVA,acute VTE of the lower ext, anemia requiring transfusions, most recent 2 units on 07/17/24. She has developed urinary retention and fitzpatrick has been in place. Completed tamiflu for influenza A yesterday - a focal infiltrate is now noted and patient less oriented. Abx for pna have been started today, 07/18/24. -Tested positive For C diff in November of 2021. Recent stool studies performed 06/21/2024 showed C diff positive. As per documentation patient received Dificid from 06/21-07/08. Started Vancomy neelam taper 07/08-07/19 and again started on Vancomycin taper on 07/20 1)Patient was previously treated with Dificid which according to records she failed treatment. 2)She is currently on 2 nd time on vancomycin taper 125 mg orally 4 times daily for 10 to 14 days, 125 mg orally twice daily for 7 days, 125 mg orally once daily for 7 days, then 125 mg orally every 2 to 3 days for 2 to 8 weeks. 3) Patient states that she has been experiencing diarrhea for a few years but was worse recently but she was unable to provide any further details regarding bowel frequency. She states that over the past few months she has lost 30 lb without trying, current weight 209 lb. [facility] accepted the patient for fecal transplant. Accepting hospitalist is and GI is Subjective Date/time seen: 07/28/24 13:48 Interval history: Interval history:Melissa Tom is a 73 year old female hypertension, chronic obstructive pulmonary disease, obstructive sleep apnea intolerant to CPAP, hypothyroidism, gout, anxiety, and Clostridium difficile diarrhea who presented to the emergency department via EMS from [facility] for evaluation of altered mental status. Hospital course is complicated and initially presenting with AMS found to have CVA and seizure with failed o/p management of c.diff/diverticulitis. Complicated hospital course with acute CVA,acute VTE of the lower ext, anemia requiring transfusions, most recent 2 units on 07/17/24. She has developed urinary retention and fitzpatrick has been in place. Completed tamiflu for influenza A yesterday - a focal infiltrate is now noted and patient less oriented. Abx for pna have been started today, 07/18/24. -Tested positive For C diff in November of 2021. Recent stool studies performed 06/21/2024 showed C diff positive. As per documentation patient received Dificid from 06/21-07/08. Started Vancomyc in taper 07/08-07/19 and again started on Vancomycin taper on 07/20 1)Patient was previously treated with Dificid which according to records she failed treatment. 2)She is currently on 2 nd time on vancomycin taper 125 mg orally 4 times daily for 10 to 14 days, 125 mg orally twice daily for 7 days, 125 mg orally once daily for 7 days, then 125 mg orally every 2 to 3 days for 2 to 8 weeks. 3) Patient states that she has been experiencing diarrhea for a few years but was worse recently but she was unable to provide any further details regarding bowel frequency. She states that over the past few months she has lost 30 lb without trying, current weight 209 lb. [facility] accepted the patient for fecal transplant. Accepting hospitalist is and GI is 07/28: Patient is tired today. Has episodes of vomiting. DC D5W due to normal Na Review of Systems Review of Systems: All systems reviewed & are unremarkable except as noted in HPI and below Constitutional: Constitutional: Reports no additional constitutional complaints Eyes: Eyes: Reports no additional eye complaints ENT: Reports system reviewed and no additional complaints, except as documented Cardiovascular: Cardiovascular: Reports no additional cardiovascular complaints Respiratory: Respiratory: Reports no additional respiratory complaints Gastrointestinal: Gastrointestinal: Reports no additional gastrointestinal complaints and Reports diarrhea Genitourinary: Genitourinary: Reports no additional female genitourinary complaints Musculoskeletal: Musculoskeletal: Reports no additional musculoskeletal comp laints Integumentary/Breasts: Skin/Breast: Reports system reviewed and no additional complaints, except as docu and Reports as per HPI Neurologic: Reports system reviewed and no additional complaints, except as documented Psychiatric: Psychiatric: Reports no additional psychiatric complaints and Reports as per HPI Endocrine: Endocrine: Reports no additional endocrine complaints and Reports as per HPI Hematologic/Lymphatic: Hematologic/Lymphatic: Reports no additional hematologic/lymphatic complaints and Reports as per HPI Allergic/Immunologic: Allergic/Immunologic: Reports no additional allergic/immunologic complaints and Reports as per HPI Exam Narrative: GENERAL APPEARANCE: Appears to be in no acute distress. HEAD: normocephalic atraumatic EYES: EOMI. ENT: Hearing grossly intact, no nasal discharge NECK: Neck supple, trachea midline. CARDIAC: Normal S1/S2. Rhythm is regular. No murmurs, rubs, or gallops. No cyanosis or pallor. Extremities are warm and well perfused. LUNGS: Clear to auscultation without rales, rhonchi, wheezing. Breath sounds are bilaterally diminished.. Respirations even and unlabored. ABDOMEN: BS positive x 4 quadrants. Soft, nondistended, nontender. No guarding or rebound. MSK: No joint tenderness/swelling, fair strength in all extremities. PERIPHERAL VASCULAR: Peripheral pulses palpable. Normal perfusion, cap refill <2 seconds. No edema. NEURO: Follows commands. No focal deficits.Drowsy this am but oriented to self and situation. SKIN: [place] without lesions or eruptions. PSYCH: Stable, Const: General: cooperative, no acute distress, alert, awake and obese Nutritional Appearance: obese Orientation/consciousness: oriented to person, oriented to place and oriented to time HENMT: Head: normal to inspection and normocephalic Eyes: General: appearance normal, both eyes and all related structures Neck: Neck: normal visual inspection, full ROM and no lymphadenopathy Chest: Chest palpation & inspection: normal inspection of the chest Resp: Effort & Inspection: normal respiratory effort, able to speak in complete sentences and Actively coughing Auscultation: clear to auscultation bilaterally and diminished lung sounds bilateral in the lower lung forbes Cardio: Jugular venous distension: no JVD Palpation: normal PMI Rate: regular rate Rhythm: regular rhythm Heart sounds: S1 normal heart sound present and S2 normal heart sound present GI: Inspection: normal to inspection Auscultation: High-pitched bowel sounds present and Hyperactive bowel sounds present Rectal Exam: other (rectal tube in place, liquid stool noted) Other: rectal tube in place and draining liquid stool Urinary Catheter: Urinary Catheter: patent and draining and urine clear Skin: General skin exam: normal color and no rashes or lesions noted Neuro: General: oriented to person, oriented to place, oriented to time, tone normal and moves all extremities Extrem: General: normal to inspection and full ROM Psych: Appearance: grossly normal Mental Status: mental status grossly normal Speech and movement: Normal speech and movement present Objective Data Vital Signs Vital Signs: Vital Signs - 24 hr 07/27/24 15:32 07/27/24 20:00 07/27/24 20:27 Temperature 97.5 F L Pulse Rate 71 64 Respiratory Rate 16 Blood Pressure 122/52 L Pulse Oximetry 99 Oxygen Delivery Room Air Fraction of Inspired Oxygen 21 07/27/24 21:45 07/28/24 05:54 07/28/24 09:43 Temperature 98.2 F 98.0 F Pulse Rate 78 71 Respiratory Rate 16 16 Blood Pressure 124/63 128/66 Pulse Oximetry 98 99 Oxygen Delivery Room Air Fraction of Inspired Oxygen 07/28/24 09:45 Temperature Pulse Rate 80 Respiratory Rate Blood Pressure Pulse Oximetry Oxygen Delivery Fraction of Inspired Oxygen Intake/Output Intake/Output: Intake & Output 07/25/24 07/26/24 07/27/24 07/28/24 23:59 23:59 23:59 23:59 Intake Total 221 750 2180 100 Output Total 800 600 201 250 Balance -310 -120 2349 -150 Meds/Results Medications: Active Medications Generic Name Dose Route Start Last Admin Trade Name Freq PRN Reason Stop Dose Admin Acetaminophen 1,000 mg 07/11/24 16:52 07/27/24 20:26 Acetaminophen 500 Mg Tablet PO 1,000 mg Q6H PRN Administration Mild Pain (1-3) or Fever Albuterol/Ipratropium 3 ml 07/19/24 17:28 Ipratropium 0.5 Mg/Albuterol Sulfate 2.5 Mg Ampul.Neb 3 Ml INHALATION Q6HRT PRN Wheezing Apixaban 5 mg 07/12/24 21:00 07/28/24 09:43 Apixaban 5 Mg Tablet PO 5 mg Q12HR SOLITARIO Administration Atorvastatin Calcium 80 mg 07/04/24 21:00 07/28/24 09:43 Atorvastatin 40 Mg Tablet PO 80 mg DAILY SOLITARIO Administration Calcium Carbonate 500 mg 07/14/24 08:00 07/28/24 09:45 Calcium Carbonate (Oscal) 500 Mg Tablet PO 500 mg BIDWM SOLITARIO Administration Cyanocobalamin 1,000 mcg 07/12/24 09:00 07/28/24 09:43 Cyanocobalamin 1,000 Mcg Tablet PO 1,000 mcg DAILY SOLITARIO Administration Dextrose 12.5 gm 07/20/24 16:44 Dextrose 50% 25 Gm/50 Ml Syringe IV PUSH PRN PRN Hypoglycemia Protocol Ferrous Sulfate 325 mg 07/15/24 09:00 07/28/24 09:43 Ferrous Sulfate [address] PO 325 mg DAILY SOLITARIO Administration Folic Acid 1 mg 07/03/24 09:00 07/28/24 09:43 Folic Acid 1 Mg Tablet PO 1 mg DAILY SOLITARIO Administration Glucagon 1 mg 07/20/24 16:44 Glucagon For Inj 1 Mg Vial IM PRN PRN Hypoglycemia Protocol Glucose 15 gm 07/20/24 16:44 07/20/24 17:02 Glucose Oral Gel 15 Gm Of Glucse In 37.5 Gm Tube PO 15 gm PRN PRN Administration Hypoglycemia Protocol Guaifenesin 1,200 mg 07/11/24 21:00 07/28/24 09:43 Guaifenesin 12 Hr 600 Mg Tabcr PO 1,200 mg Q12HR SOLITARIO Administration Dextrose 1,000 mls @ 100 mls/hr 07/20/24 16:44 Dextrose 5% 1,000 Ml IVPB PRN PRN Hypoglycemia Protocol Dextrose 1,000 mls @ 100 mls/hr 07/26/24 14:30 07/28/24 00:33 Dextrose 5% 1,000 Ml IV CONT 100 mls/hr .Q10H SOLITARIO Administration Levetiracetam 500 mg 07/03/24 12:30 07/28/24 09:43 Levetiracetam 500 Mg Tablet PO 500 mg Q12HR SOLITARIO Administration Levothyroxine Sodium 75 mcg 07/03/24 06:30 07/28/24 05:49 Levothyroxine Sodium 75 Mcg Tablet PO 75 mcg DAILY@0630 SOLITARIO Administration Lidocaine 1 patch 07/12/24 09:00 07/28/24 09:44 Lidocaine 5% Patch TRANSDERM 1 patch DAILY SOLITARIO Administration Magnesium Oxide 400 mg 07/06/24 17:00 07/28/24 09:43 Magnesium Oxide 400 Mg Tablet PO 400 mg BID SOLITARIO Administration Metoprolol Tartrate 50 mg 07/03/24 09:00 07/28/24 09:45 Metoprolol Tartrate 50 Mg Tab PO 50 mg Q12HR SOLITARIO Administration Montelukast Sodium 10 mg 07/03/24 00:15 07/27/24 20:24 Montelukast Sodium 10 Mg Tablet PO 10 mg HS SOLITARIO Administration Olmesartan 40 mg 07/03/24 09:00 07/28/24 09:43 Olmesartan Medoxomil 20 Mg Tablet PO 40 mg DAILY SOLITARIO Administration Ondansetron HCl 4 mg 07/28/24 10:52 Ondansetron Inj 4 Mg/2 Ml Vial IV PUSH Q4H PRN Nausea And Vomiting Pantoprazole Sodium 40 mg 07/09/24 12:35 07/28/24 09:46 Pantoprazole Sodium Iv 40 Mg Vial IV PUSH 40 mg Q12HR SOLITARIO Administration Potassium Chloride 10 meq 07/27/24 09:00 07/28/24 09:44 Potassium Chloride 20 Meq Packet (For Liquid) PO 10 meq DAILY SOLITARIO Administration Saccharomyces Boulardii 250 mg 07/22/24 17:00 07/28/24 09:42 Saccharomyces Boulardii 250 Mg Capsule PO 250 mg BID SOLITARIO Administration Sodium Bicarbonate 650 mg 07/16/24 17:00 07/28/24 13:05 Sodium Bicarbonate Tab 650 Mg Tablet PO 650 mg TID SOLITARIO Administration Sodium Chloride 20 ml 07/04/24 16:15 07/24/24 05:49 Central Line Flush IV PUSH 20 ml PRN PRN Administration after blood draws Sodium Chloride 10 ml 07/04/24 16:15 Central Line Flush IV PUSH PRN PRN with TPN bag changes Sodium Chloride 10 ml 07/04/24 22:00 07/28/24 05:49 Central Line Flush IV PUSH 10 ml Q8HR SOLITARIO Administration Trazodone HCl 100 mg 07/11/24 21:00 07/27/24 20:25 Trazodone Hcl 50 Mg Tablet PO 100 mg HS SOLITARIO Administration Vancomycin HCl 125 mg 07/20/24 18:00 07/28/24 13:05 Vancomycin Hcl 125 Mg Oral Capsule PO 07/30/24 17:59 125 mg Q6HR SOLITARIO Administration Radiology Results: ITS Impressions Head CT 07/02/24 14:34 IMPRESSION: 1. Normal aging brain. Abdomen/Pelvis CT 07/02/24 14:36 IMPRESSION: 1. Persistent small collection of extra luminal gas in the left lower quadrant anterior abdominal wall immediately adjacent to a region of inflammatory stranding surrounding the descending colon consistent with diverticulitis. No abscess or more remote free intraperineal gas or fluid. 2. Persistent moderate-sized bilateral posterior layering pleural effusions with dependent compressive atelectasis in the visualized lower lobes. Brain MRI 07/04/24 11:30 IMPRESSION: 1. 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 2. 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 3. Diffuse pachymeningeal enhancement. This finding is most commonly secondary to prior lumbar puncture or spine procedure. ADDENDUM: 07/04/24 1216 The contrast volume was 20 mL MultiHance. Venous Doppler Study 07/05/24 14:17 IMPRESSION: 1. Extensive deep vein thrombosis in right lower limb. I called this result to Elsy Tao. Chest X-Ray 07/17/24 18:28 IMPRESSION: 1. Airspace opacities at left lung base, consistent with atelectasis versus pneumonia. 2. Small left pleural effusion. Modified Barium Swallow 07/24/24 14:55 IMPRESSION: 1. Flash laryngeal penetration. 2. Please refer to the speech therapy report for recommendations. Labs Labs: Laboratory Results - last 24 hr 07/27/24 07/27/24 07/28/24 16:55 19:58 07:44 WBC RBC Hgb Hct MCV MCH MCHC RDW Plt Count MPV Sodium Potassium Chloride Carbon Dioxide Anion Gap BUN Creatinine Estim Creat Clear Calc Estimated GFR Glucose POC Capillary Glucose 111 H 108 H 111 H Calcium Total Bilirubin AST ALT Alkaline Phosphatase Total Protein Albumin 07/28/24 07/28/24 10:45 12:11 WBC 8.1 RBC 3.41 L Hgb 10.6 L Hct 32.8 L MCV 96.2 MCH 31.1 MCHC 32.3 RDW 19.4 H Plt Count 213 MPV 10.8 H Sodium 132 L Potassium 3.2 L Chloride 105 Carbon Dioxide 23 Anion Gap 4 BUN 14 Creatinine 0.87 Estim Creat Clear Calc 58 Estimated GFR > 60 Glucose 97 POC Capillary Glucose 95 Calcium 7.5 L Total Bilirubin 0.6 AST 23 ALT 13 Alkaline Phosphatase 144 H Total Protein 5.0 L Albumin 2.0 L Quality VTE Prophylaxis VTE prophylaxis: pharmacologic ordered Hospitalist [facility] Advance Care Plan I have confirmed that the patient's Advanced Care Plan is present, code status is documented, or surrogate decision maker is listed in patient medical record.: Yes Medication Reconciliation I have utilized all available resources to obtain, update and review the patients current medications (includes all prescriptions, OTC, herbals, cannabis, and nutritional supplements).: Yes
[2024-07-28 15:32] VITALS: BP 100/50; PULSE 90; RESP 16; TEMP 37.1; O2SAT 97
[2024-07-28 16:51] LABS: Glucose Point of Care 103 mg/dl (65-105)
[2024-07-28] MEDS: LORazepam INJ (*CRX) 2 MG/ML VIAL IV PUSH (17:57)
[2024-07-28 20:58] VITALS: PULSE 88
[2024-07-28] MEDS: MONTELUKAST SODIUM 10 MG TABLET PO (20:58)
[2024-07-28] MEDS: traZODone HCL 50 MG TABLET 100 MG PO (20:58)
[2024-07-28] MEDS: ONDANSETRON INJ 4 MG/2 ML VIAL IV PUSH (20:59)
[2024-07-28 22:07] LABS: Glucose Point of Care 91 mg/dl (65-105)
[2024-07-29] MEDS: VANCOMYCIN HCL 125 MG ORAL CAPSULE PO ×4 (00:25→22:52)
[2024-07-29 04:43] LABS: Hematocrit 30.7 % (37.0-47.0); Hemoglobin 9.8 g/dL (12.0-15.0); Mean Corpuscular HGB Conc 31.9 g/dl (32-36); Mean Corpuscular Volume 97.2 fl (80-100); Mean Platelet Volume 11.1 fl (7.4-10.4); Platelet Count Result 151 k/mm3 (150-375); Red Blood Count 3.16 M/mm3 (4.2-5.4); Red Cell Distribution Width 19.6 % (11.5-14.5); White Blood Count 7.9 K/mm3 (4.5-10.0)
[2024-07-29 04:57] VITALS: BP 108/59; PULSE 85; RESP 18; TEMP 37; O2SAT 97
[2024-07-29 05:11] LABS: Alanine Aminotransferase 12 U/L (6-35); Alkaline Phosphatase 143 U/L (38-126); Anion Gap 5 mmol/L (4-12); Aspartate Amino Transferase 21 U/L (14-36); Bilirubin,Total 0.7 mg/dL (0.2-1.3); Blood Urea Nitrogen 16 mg/dL (7-17); Calcium 7.4 mg/dL (8.4-10.2); Carbon Dioxide 23 mmol/L (22-30); Chloride 105 mmol/L (98-107); Estimated CRCL calculation 44 ml/min; Estimated Glomerular Filt Rate 46; Glucose 84 mg/dL (65-110); Potassium 3.2 mmol/L (3.4-5.0); Sodium 133 mmol/L (137-145)
[2024-07-29] MEDS: CENTRAL LINE FLUSH 10 ML IV PUSH ×3 (05:33→22:31)
[2024-07-29] MEDS: LEVOTHYROXINE SODIUM 75 MCG TABLET PO (05:33)
[2024-07-29 08:11] LABS: Glucose Point of Care 89 mg/dl (65-105)
[2024-07-29] MEDS: ATORVASTATIN 40 MG TABLET 80 MG PO (08:46)
[2024-07-29] MEDS: guaiFENesin 12 HR 600 MG TABCR 1200 MG PO (08:46)
[2024-07-29] MEDS: PANTOPRAZOLE SODIUM IV 40 MG VIAL IV PUSH ×2 (08:46→22:52)
[2024-07-29] MEDS: ONDANSETRON INJ 4 MG/2 ML VIAL IV PUSH (08:46)
[2024-07-29 08:47] VITALS: PULSE 85
[2024-07-29] MEDS: FOLIC ACID 1 MG TABLET PO (08:47)
[2024-07-29] MEDS: levETIRAcetam 500 MG TABLET PO ×2 (08:47→22:31)
[2024-07-29] MEDS: SODIUM BICARBONATE TAB 650 MG TABLET PO (08:47)
[2024-07-29] MEDS: CALCIUM CARBONATE (OSCAL) 500 MG TABLET PO (08:47)
[2024-07-29] MEDS: FERROUS SULFATE 325 MG TABLET DR PO (08:47)
[2024-07-29] MEDS: CYANOCOBALAMIN 1,000 MCG TABLET 1000 MCG PO (08:47)
[2024-07-29] MEDS: MAGNESIUM OXIDE 400 MG TABLET PO (08:47)
[2024-07-29] MEDS: OLMESARTAN MEDOXOMIL 20 MG TABLET 40 MG PO (08:47)
[2024-07-29] MEDS: METOPROLOL TARTRATE 50 MG TAB PO ×2 (08:47→22:31)
[2024-07-29] MEDS: SACCHAROMYCES BOULARDII 250 MG CAPSULE PO (08:47)
[2024-07-29] MEDS: APIXABAN 5 MG TABLET PO ×2 (08:47→22:31)
[2024-07-29] MEDS: POTASSIUM CHLORIDE 20 MEQ PACKET (FOR LIQUID) 10 MEQ PO (08:48)
--- NOTE | 2024-07-29 09:52 | P.PNIM_ITS ---
Progress Note: A&P Assessment and Plan (1) CVA (cerebral vascular accident): Code(s): I63.9 - Cerebral infarction, unspecified Status: Acute Assessment and Plan: Interval history:Melissa Tom is a 73 year old female hypertension, chronic obstructive pulmonary disease, obstructive sleep apnea intolerant to CPAP, hypothyroidism, gout, anxiety, and Clostridium difficile diarrhea who presented to the emergency department via EMS from [facility] for evaluation of altered mental status. Hospital course is complicated and initially presenting with AMS found to have CVA and seizure with failed o/p management of c.diff/diverticulitis. Complicated hospital course with acute CVA,acute VTE of the lower ext, anemia requiring transfusions, most recent 2 units on 07/17/24. She has developed urinary retention and fitzaptrick has been in place. Completed tamiflu for influenza A yesterday - a focal infiltrate is now noted and patient less oriented. Abx for pna have been started today, 07/18/24. -Tested positive For C diff in November of 2021. Recent stool studies performed showed C diff positive. As per documentation patient received Dificid from 06/21-07/08. Started Vancomycin taper 07/08-07/19 and again started on Vancomycin taper on 07/20 1)Patient was previously treated with Dificid which according to records she failed treatment. 2)She is currently on 2 nd time on vancomycin taper 125 mg orally 4 times daily for 10 to 14 days, 125 mg orally twice daily for 7 days, 125 mg orally once daily for 7 days, then 125 mg orally every 2 to 3 days for 2 to 8 weeks. 3) Patient states that she has been experiencing diarrhea for a few years but was worse recently but she was unable to provide any further details regarding bowel frequency. She states that over the past few months she has lost 30 lb without trying, current weight 209 lb. I called [facility] accepted the patient for fecal transplant. Accepting hospitalist is and GI is . Pending transfer to [facility]. Consulted hospice as per patient request 07/11/24: * MRA of brain showing acute infarct in the left frontoparietal lobe in the deep white matter * Left lower extremity weakness * PT and OT ordered * Continue atorvastatin, Plavix * Aspirin currently on hold as she is on Eliquis for DVT prophylaxis * A Neurology following 07/15 * continue Eliquis * neurology following 07/16 * No change 07/20 - Stable. On atorvastatin. Asa/plavix previously held. Apixaban resumed. (2) Seizure: Code(s): R56.9 - Unspecified convulsions Status: Acute Assessment and Plan: 07/11 * New onset * CT of the head was negative * MRI showing acute infarct in the left frontoparietal lobe in deep white matter * EEG findings abnormal read, cannot rule out seizure activity * Continue atorvastatin, Plavix * Will hold baby aspirin considering patient is on Eliquis * Continue Keppra * Continue seizure precautions * Cardiac telemetry stable, we will go ahead and discontinue continuous telemetry * Move out of IMU to regular med surge floor 07/15 * continue neuro checks * continue seizure precautions * continue Keppra, atorvastatin, Plavix * neurology following 07/16 * no change 07/18-07/20 - No new seizure activity. - Cont. keppra at 500mg bid. (3) C. difficile diarrhea: Code(s): A04.72 - Enterocolitis due to Clostridium difficile, not specified as recurrent Status: Acute Assessment and Plan: 07/11/24 * Continue vancomycin pulse dosing * Pulse taper vanc dose as follows: 125 mg orally 4 times daily for 10 to 14 days, then 125 mg orally twice daily for 7 days, then 125 mg orally once daily for 7 days, then 125 mg orally every 2 to 3 days for 2 to 8 weeks 07/15 * no change to current treatment plan 07/18 - Cont. current pulse/taper. Orders are in. 07/20: restarted Oral Vancomycin 07/21: patient completed 2 courses of fidaxomicin and Tapering dose of oral Vancomycin. Consulted GI for fecal microbiota transplantation Tested positive For C diff in November of 2021. Recent stool studies performed 06/21/2024 showed C diff positive. As per documentation patient received Dificid from 06/21-07/08. Started Vancomycin taper 07/08-07/19 and again started on Vancomycin taper on 07/20 [facility] accepted the patient for fecal transplant. Accepting hospitalist is and GI is Consulted hospice (4) Diverticulitis of intestine with perforation without abscess: Qualifiers: Diverticulitis bleeding: without bleeding Diverticulitis site: large intestine Qualified Code(s): K57.20 - Diverticulitis of large intestine with perforation and abscess without bleeding Code(s): K57.80 - Diverticulitis of intestine, part unspecified, with perforation and abscess without bleeding Status: Acute Assessment and Plan: 07/11/24 * Failed Dificid * Continue oral vancomycin 07/15 * continue oral vancomycin 07/16 * No change 07/18 - Stable, completing oral vancomycin pulse/taper. 07/20: completed oral vancomycin Tested positive For C diff in November of 2021. Recent stool studies performed 06/21/2024 showed C diff positive. As per documentation patient received Dificid from 06/21-07/08. Started Vancomycin taper 07/08-07/19 and again started on Vancomycin taper on 07/20 07/29: Patient had multiple episodes of vomiting today and performed abdominal CT shows Diverticulitis of descending colon with fistula to a worsened small abscess. Will notify surgery. (5) Anemia: Qualifiers: Anemia type: due to chronic kidney disease Chronic kidney disease stage: unspecified stage Qualified Code(s): N18.9 - Chronic kidney disease, unspecified; D63.1 - Anemia in chronic kidney disease Code(s): D64.9 - Anemia, unspecified Status: Acute Assessment and Plan: 07/11/24 * Continue to transfuse for hemoglobin less than 7 * Patient receive 1 unit of blood this admission * Currently on Eliquis, Plavix * Will hold aspirin * Continue to trend 07/15 * hemoglobin 7.5 * no change to current treatment plan 07/18 - S/P 2 units prbc overnight with improvement noted on overnight labs. - Resume anticoag. - GI had been consulted, not able to perform colonoscopy currently with diverticulitis, patient had previously refused as well. (6) Acute DVT (deep venous thrombosis): Code(s): I82.409 - Acute embolism and thrombosis of unspecified deep veins of unspecified lower extremity Status: Acute Assessment and Plan: 07/11/24 * Venous Doppler showing extensive right lower extremity DVT * Patient was started on Lovenox and then switched to heparin infusion on 07/09/2024. She later developed dark tarry stools and a drop in her hemoglobin requiring blood transfusion. Heparin drip was placed on hold for 24 hours and then she was restarted on Eliquis 10 mg daily x7 days--standard protocol * General surgery was consulted for IVC filter however she is not a candidate at this time due to her other comorbidities * Continue Eliquis as stated above 07/15 * continue Eliquis 07/16 * No change 07/18 - Eliquis held overnight d/t needing two units prbc. - Stable hgb resuming eliquis. 07/20: Resumed Eliquis. Will monitor H and H (7) Occult blood in stools: Code(s): R19.5 - Other fecal abnormalities Status: Acute Assessment and Plan: 07/11/24 * Patient was occult blood positive on 07/09/2024 * She was given 1 unit of blood * H&H is stable * GI recommending outpatient colonoscopy considering her comorbidities * Recently diagnosed with diverticulitis and C diff colitis 07/15 * hemoglobin 7.5 * continue to trend 07/16 * No change 07/18 - Transfused two units prbc overnight with appropriate rise in hgb on repeat labs overnight. - Apixaban will resume. (8) Delirium: Code(s): R41.0 - Disorientation, unspecified Status: Acute Assessment and Plan: 07/15 * more confused today * continue neuro checks * encourage good sleep hygiene 07/16 * continue neuro checks * currently alert and oriented x3 07/18 - Drowsy this am but rousable and and answers questions. Improved later in the am. No focal deficits. - Cont. to monitor closely for developing infection - post influenza pna, UTI, etc. Check urine this am, pending. - Treating for pna. (9) Pneumonia: Code(s): J18.9 - Pneumonia, unspecified organism Status: Acute Assessment and Plan: 07/18 - Slightly less oriented than reported from day prior this morning, improving in the late morning, cxr shows infiltrate. Plan to start ceftriaxone/zithromycin today day 1. (10) Upper respiratory infection: Code(s): J06.9 - Acute upper respiratory infection, unspecified Status: Acute Assessment and Plan: 07/11/24 * Patient reported cold-like symptoms with a nonproductive cough and wheezing * Will check for influenza a and B, RSV, COVID * Start DuoNebs q.6 hour * Will obtain chest x-ray * Incentive spirometry while awake * Pep therapy with cornet flutter valve 07/15 * no change to current treatment plan 07/17 * Chest x-ray ordered * Still coarse rhonchi * Patient finished course Tamiflu for influenza a * Continue incentive spirometry and pep therapy 07/18 - Completed tamiflu, breathing easily. Lungs diminished bilaterally with slightly coarse rales in the right. (11) Urinary retention: Code(s): R33.9 - Retention of urine, unspecified Status: Acute Assessment and Plan: 07/11/24: * Patient had acute urinary retention requiring Fitzpatrick on 07/03/24 * Urology was consulted * Patient failed voiding trial * Patient will keep catheter and repeat voiding trial in 1-2 weeks on an ou tpatient basis with Urology 07/15 * no change to current treatment plan 07/18 - Catheter in place, consider trial of voiding 07/25 at the two week kelly. (12) Hypokalemia: Code(s): E87.6 - Hypokalemia Status: Acute Assessment and Plan: 07/11/24: * Potassium 4.3 * No need for replacement * Resolved 07/15 * potassium 3.5 * no replacement needed 07/16 * potassium 3.7 * no replacement needed (13) Hypothyroidism: Qualifiers: Hypothyroidism type: unspecified Qualified Code(s): E03.9 - Hypothyroidism, unspecified Code(s): E03.9 - Hypothyroidism, unspecified Status: Chronic Assessment and Plan: 07/11/24 * Continue Synthroid 07/15 * no change to current treatment plan 07/18 - Cont. current. (14) Hypertension: Qualifiers: Hypertension type: primary hypertension Qualified Code(s): I10 - Essential (primary) hypertension Code(s): I10 - Essential (primary) hypertension Status: Chronic Assessment and Plan: -Blood pressure ranging 105/ 81 to 146/73 - Continue metoprolol, Benicar and monitor. -no change to current treatment plan -BP generally 130-140, trending higher this am, consider uptitration if trend continues. (15) Dysphagia: Qualifiers: Dysphagia type: esophageal phase Qualified Code(s): R13.19 - Other dysphagia Code(s): R13.10 - Dysphagia, unspecified Status: Acute Assessment and Plan: Last EGD with dilation 05/15/2024 revealed a small hiatal hernia but no findings to explain symptoms. Following her EGD esophageal manometry was recommended to rule out achalasia but this was not arranged. Patient states that for the past 2 months she has been having postprandial nausea and vomiting. She is still having intermittent swallowing difficulty with solids, liquids, and pills. * esophagram ordered, if workup is unremarkable and symptoms persist we can arrange an esophageal manometry or endo flip as outpatient * continue supportive care with antiemetics (16) Hypernatremia: Code(s): E87.0 - Hyperosmolality and hypernatremia Status: Acute Assessment and Plan: Resolved Possibly due to her dehydration DC D5W Plan Melissa Tom is a 73 year old female hypertension, chronic obstructive pulmonary disease, obstructive sleep apnea intolerant to CPAP, hypothyroidism, gout, anxiety, and Clostridium difficile diarrhea who presented to the emergency department via EMS from [facility] for evaluation of altered mental status. Hospital course is complicated and initially presenting with AMS found to have CVA and seizure with failed o/p management of c.diff/diverticulitis. Complicated hospital course with acute CVA,acute VTE of the lower ext, anemia requiring transfusions, most recent 2 units on 07/17/24. She has developed urinary retention and fitzpatrick has been in place. Completed tamiflu for influenza A yesterday - a focal infiltrate is now noted and patient less oriented. Abx for pna have been started today, 07/18/24. -Tested positive For C diff in November of 2021. Recent stool studies performed 06/21/2024 showed C diff positive. As per documentation patient received Dificid from 06/21-07/08. Started Vancomycin taper 07/08-07/19 and again started on Vancomycin taper on 07/20 1)Patient was previously treated with Dificid which according to records she failed treatment. 2)She is currently on 2 nd time on vancomycin taper 125 mg orally 4 times daily for 10 to 14 days, 125 mg orally twice daily for 7 days, 125 mg orally once daily for 7 days, then 125 mg orally every 2 to 3 days for 2 to 8 weeks. 3) Patient states that she has been experiencing diarrhea for a few years but was worse recently but she was unable to provide any further details regarding bowel frequency. She states that over the past few months she has lost 30 lb without trying, current weight 209 lb. [facility]. Accepting hospitalist is and GI is Consulted hospice as per patient request Subjective Date/time seen: 07/29/24 09:52 Interval history: Interval history:Melissa Tom is a 73 year old female hypertension, chronic obstructive pulmonary disease, obstructive sleep apnea intolerant to CPAP, hypothyroidism, gout, anxiety, and Clostridium difficile diarrhea who presented to the emergency department via EMS from [facility] for evaluation of altered mental status. Hospital course is complicated and initially presenting with AMS found to have CVA and seizure with failed o/p management of c.diff/diverticulitis. Complicated hospital course with acute CVA,acute VTE of the lower ext, anemia requiring transfusions, most recent 2 units on 07/17/24. She has developed urinary retention and fitzpatrick has been in place. Completed tamiflu for influenza A yesterday - a focal infiltrate is now noted and patient less oriented. Abx for pna have been started today, 07/18/24. -Tested positive For C diff in November of 2021. Recent stool studies performed 06/21/2024 showed C diff positive. As per documentation patient received Dificid from 06/21-07/08. Started Vancomycin taper 07/08-07/19 and again started on Vancomycin taper on 07/20 1)Patient was previously treated with Dificid which according to records she failed treatment. 2)She is currently on 2 nd time on vancomycin taper 125 mg orally 4 times daily for 10 to 14 days, 125 mg orally twice daily for 7 days, 125 mg orally once daily for 7 days, then 125 mg orally every 2 to 3 days for 2 to 8 weeks. 3) Patient states that she has been experiencing diarrhea for a few years but was worse recently but she was unable to provide any further details regarding bowel frequency. She states that over the past few months she has lost 30 lb without trying, current weight 209 lb. [facility] called [facility]. Accepting hospitalist is and GI is . P[facility] to [facility]. Consulted hospice as per patient request 07/29: Given K 60 meq. Increased her K from 10meq to 20 meq. Had a very long discussion with the patient. Patient reports she want to leave home. I explained that she was being accepted into [facility], which could fix some of her issues but not everything. She reported being tired of getting all the treatments. Then I explained to her the option of hospice, and she completely understood and wanted to go to hospice. I then brought TOMAS Atkins, to the room, and we both explained the option she has: either going to [facility] or hospice. The patient is AO x3. She insisted on going to the hospice. I will call her son and will try to get hold of him. Consulted hospice. Called her son but he didnt answer his phone.Of note patient had multiple episodes of vomiting today and performed abdominal CT shows Diverticulitis of descending colon with fistula to a worsened small abscess. Will notify surgery. Exam Narrative: GENERAL APPEARANCE: Appears to be in no acute distress. HEAD: normocephalic atraumatic EYES: EOMI. ENT: Hearing grossly intact, no nasal discharge NECK: Neck supple, trachea midline. CARDIAC: Normal S1/S2. Rhythm is regular. No murmurs, rubs, or gallops. No cyanosis or pallor. Extremities are warm and well perfused. LUNGS: Clear to auscultation without rales, rhonchi, wheezing. Breath sounds are bilaterally diminished.. Respirations even and unlabored. ABDOMEN: BS positive x 4 quadrants. Soft, nondistended, nontender. No guarding or rebound. MSK: No joint tenderness/swelling, fair strength in all extremities. PERIPHERAL VASCULAR: Peripheral pulses palpable. Normal perfusion, cap refill <2 seconds. No edema. NEURO: Follows commands. No focal deficits.Drowsy this am but oriented to self and situation. SKIN: [address] [place] without lesions or eruptions. PSYCH: Stable, Const: General: cooperative, no acute distress, alert, awake and obese Nutritional Appearance: obese Orientation/consciousness: oriented to person, oriented to place and oriented to time HENMT: Head: normal to inspection and normocephalic Eyes: General: appearance normal, both eyes and all related structures Neck: Neck: normal visual inspection, full ROM and no lymphadenopathy Chest: Chest palpation & inspection: normal inspection of the chest Resp: Effort & Inspection: normal respiratory effort, able to speak in complete sentences and Actively coughing Auscultation: clear to auscultation bilaterally and diminished lung sounds bilateral in the lower lung forbes Cardio: Jugular venous distension: no JVD Palpation: normal PMI Rate: regular rate Rhythm: regular rhythm Heart sounds: S1 normal heart sound present and S2 normal heart sound present GI: Inspection: normal to inspection Auscultation: High-pitched bowel sounds present and Hyperactive bowel sounds present Rectal Exam: other (rectal tube in place, liquid stool noted) Other: rectal tube in place and draining liquid stool Urinary Catheter: Urinary Catheter: patent and draining and urine clear Skin: General skin exam: normal color and no rashes or lesions noted Neuro: General: oriented to person, oriented to place, oriented to time, tone normal and moves all extremities Extrem: General: normal to inspection and full ROM Psych: Appearance: grossly normal Mental Status: mental status grossly normal Speech and movement: Normal speech and movement present Objective Data Vital Signs Vital Signs: Vital Signs - 24 hr 07/28/24 15:32 07/28/24 20:00 07/28/24 20:58 Temperature 98.7 F Pulse Rate 90 88 Respiratory Rate 16 Blood Pressure 100/50 L Pulse Oximetry 97 Oxygen Delivery Room Air Fraction of Inspired Oxygen 21 07/29/24 04:57 07/29/24 08:47 Temperature 98.6 F Pulse Rate 85 85 Respiratory Rate 18 Blood Pressure 108/59 L Pulse Oximetry 97 Oxygen Delivery Fraction of Inspired Oxygen Intake/Output Intake/Output: Intake & Output 07/26/24 07/27/24 07/28/24 07/29/24 23:59 23:59 23:59 23:59 Intake Total 480 2550 250 0 Output Total 600 201 600 Balance -120 2349 -350 0 Meds/Results Medications: Active Medications Generic Name Dose Route Start Last Admin Trade Name Freq PRN Reason Stop Dose Admin Acetaminophen 1,000 mg 07/11/24 16:52 07/27/24 20:26 Acetaminophen 500 Mg Tablet PO 1,000 mg Q6H PRN Administration Mild Pain (1-3) or Fever Albuterol/Ipratropium 3 ml 07/19/24 17:28 Ipratropium 0.5 Mg/Albuterol Sulfate 2.5 Mg Ampul.Neb 3 Ml INHALATION Q6HRT PRN Wheezing Apixaban 5 mg 07/12/24 21:00 07/29/24 08:47 Apixaban 5 Mg Tablet PO 5 mg Q12HR SOLITARIO Administration Atorvastatin Calcium 80 mg 07/04/24 21:00 07/29/24 08:46 Atorvastatin 40 Mg Tablet PO 80 mg DAILY SOLITARIO Administration Calcium Carbonate 500 mg 07/14/24 08:00 07/29/24 08:47 Calcium Carbonate (Oscal) 500 Mg Tablet PO 500 mg BIDWM SOLITARIO Administration Cyanocobalamin 1,000 mcg 07/12/24 09:00 07/29/24 08:47 Cyanocobalamin 1,000 Mcg Tablet PO 1,000 mcg DAILY SOLITARIO Administration Dextrose 12.5 gm 07/20/24 16:44 Dextrose 50% 25 Gm/50 Ml Syringe IV PUSH PRN PRN Hypoglycemia Protocol Ferrous Sulfate 325 mg 07/15/24 09:00 07/29/24 08:47 Ferrous Sulfate [address] PO 325 mg DAILY SOLITARIO Administration Folic Acid 1 mg 07/03/24 09:00 07/29/24 08:47 Folic Acid 1 Mg Tablet PO 1 mg DAILY SOLITARIO Administration Glucagon 1 mg 07/20/24 16:44 Glucagon For Inj 1 Mg Vial IM PRN PRN Hypoglycemia Protocol Glucose 15 gm 07/20/24 16:44 07/20/24 17:02 Glucose Oral Gel 15 Gm Of Glucse In 37.5 Gm Tube PO 15 gm PRN PRN Administration Hypoglycemia Protocol Guaifenesin 1,200 mg 07/11/24 21:00 07/29/24 08:46 Guaifenesin 12 Hr 600 Mg Tabcr PO 1,200 mg Q12HR SOLITARIO Administration Dextrose 1,000 mls @ 100 mls/hr 07/20/24 16:44 Dextrose 5% 1,000 Ml IVPB PRN PRN Hypoglycemia Protocol Levetiracetam 500 mg 07/03/24 12:30 07/29/24 08:47 Levetiracetam 500 Mg Tablet PO 500 mg Q12HR SOLITARIO Administration Levothyroxine Sodium 75 mcg 07/03/24 06:30 07/29/24 05:33 Levothyroxine Sodium 75 Mcg Tablet PO 75 mcg DAILY@0630 SOLITARIO Administration Lidocaine 1 patch 07/12/24 09:00 07/29/24 08:48 Lidocaine 5% Patch TRANSDERM Not Given DAILY SOLITARIO Lorazepam 2 mg 07/28/24 17:44 07/28/24 17:57 Lorazepam Inj (*Crx) 2 Mg/Ml Vial IV PUSH 2 mg Q4H PRN Administration Seizures Magnesium Oxide 400 mg 07/06/24 17:00 07/29/24 08:47 Magnesium Oxide 400 Mg Tablet PO 400 mg BID SOLITARIO Administration Metoprolol Tartrate 50 mg 07/03/24 09:00 07/29/24 08:47 Metoprolol Tartrate 50 Mg Tab PO 50 mg Q12HR SOLITARIO Administration Montelukast Sodium 10 mg 07/03/24 00:15 07/28/24 20:58 Montelukast Sodium 10 Mg Tablet PO 10 mg HS SOLITARIO Administration Olmesartan 40 mg 07/03/24 09:00 07/29/24 08:47 Olmesartan Medoxomil 20 Mg Tablet PO 40 mg DAILY SOLITARIO Administration Ondansetron HCl 4 mg 07/28/24 10:52 07/29/24 08:46 Ondansetron Inj 4 Mg/2 Ml Vial IV PUSH 4 mg Q4H PRN Administration Nausea And Vomiting Pantoprazole Sodium 40 mg 07/09/24 12:35 07/29/24 08:46 Pantoprazole Sodium Iv 40 Mg Vial IV PUSH 40 mg Q12HR SOLITARIO Administration Potassium Chloride 10 meq 07/27/24 09:00 07/29/24 08:48 Potassium Chloride 20 Meq Packet (For Liquid) PO 10 meq DAILY SOLITARIO Administration Saccharomyces Boulardii 250 mg 07/22/24 17:00 07/29/24 08:47 Saccharomyces Boulardii 250 Mg Capsule PO 250 mg BID SOLITARIO Administration Sodium Bicarbonate 650 mg 07/16/24 17:00 07/29/24 08:47 Sodium Bicarbonate Tab 650 Mg Tablet PO 650 mg TID SOLITARIO Administration Sodium Chloride 20 ml 07/04/24 16:15 07/24/24 05:49 Central Line Flush IV PUSH 20 ml PRN PRN Administration after blood draws Sodium Chloride 10 ml 07/04/24 16:15 Central Line Flush IV PUSH PRN PRN with TPN bag changes Sodium Chloride 10 ml 07/04/24 22:00 07/29/24 05:33 Central Line Flush IV PUSH 10 ml Q8HR SOLITARIO Administration Trazodone HCl 100 mg 07/11/24 21:00 07/28/24 20:58 Trazodone Hcl 50 Mg Tablet PO 100 mg HS SOLITARIO Administration Vancomycin HCl 125 mg 07/20/24 18:00 07/29/24 05:33 Vancomycin Hcl 125 Mg Oral Capsule PO 07/30/24 17:59 125 mg Q6HR SOLITARIO Administration Radiology Results: ITS Impressions Head CT 07/02/24 14:34 IMPRESSION: 1. Normal aging brain. Abdomen/Pelvis CT 07/02/24 14:36 IMPRESSION: 1. Persistent small collection of extra luminal gas in the left lower quadrant anterior abdominal wall immediately adjacent to a region of inflammatory stranding surrounding the descending colon consistent with diverticulitis. No abscess or more remote free intraperineal gas or fluid. 2. Persistent moderate-sized bilateral posterior layering pleural effusions with dependent compressive atelectasis in the visualized lower lobes. Brain MRI 07/04/24 11:30 IMPRESSION: 1. 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 2. 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 3. Diffuse pachymeningeal enhancement. This finding is most commonly secondary to prior lumbar puncture or spine procedure. ADDENDUM: 07/04/24 1216 The contrast volume was 20 mL MultiHance. Venous Doppler Study 07/05/24 14:17 IMPRESSION: 1. Extensive deep vein thrombosis in right lower limb. I called this result to Elsy Tao. Chest X-Ray 07/17/24 18:28 IMPRESSION: 1. Airspace opacities at left lung base, consistent with atelectasis versus pneumonia. 2. Small left pleural effusion. Modified Barium Swallow 07/24/24 14:55 IMPRESSION: 1. Flash laryngeal penetration. 2. Please refer to the speech therapy report for recommendations. Labs Labs: Laboratory Results - last 24 hr 07/28/24 07/28/24 07/28/24 10:45 12:11 16:45 WBC 8.1 RBC 3.41 L Hgb 10.6 L Hct 32.8 L MCV 96.2 MCH 31.1 MCHC 32.3 RDW 19.4 H Plt Count 213 MPV 10.8 H Sodium 132 L Potassium 3.2 L Chloride 105 Carbon Dioxide 23 Anion Gap 4 BUN 14 Creatinine 0.87 Estim Creat Clear Calc 58 Estimated GFR > 60 Glucose 97 POC Capillary Glucose 95 103 Calcium 7.5 L Total Bilirubin 0.6 AST 23 ALT 13 Alkaline Phosphatase 144 H Total Protein 5.0 L Albumin 2.0 L 07/28/24 07/29/24 07/29/24 20:42 04:26 07:58 WBC 7.9 RBC 3.16 L Hgb 9.8 L Hct 30.7 L MCV 97.2 MCH 31.0 MCHC 31.9 L RDW 19.6 H Plt Count 151 MPV 11.1 H Sodium 133 L Potassium 3.2 L Chloride 105 Carbon Dioxide 23 Anion Gap 5 BUN 16 Creatinine 1.15 H Estim Creat Clear Calc 44 Estimated GFR 46 L Glucose 84 POC Capillary Glucose 91 89 Calcium 7.4 L Total Bilirubin 0.7 AST 21 ALT 12 Alkaline Phosphatase 143 H Total Protein 5.0 L Albumin 2.0 L Hospitalist MIPS Advance Care Plan I have confirmed that the patient's Advanced Care Plan is present, code status is documented, or surrogate decision maker is listed in patient medical record.: Yes Medication Reconciliation I have utilized all available resources to obtain, update and review the patients current medications (includes all prescriptions, OTC, herbals, cannabis, and nutritional supplements).: Yes
[2024-07-29] MEDS: POTASSIUM CHLORIDE 20 MEQ ER TABLET 60 MEQ PO (11:38)
[2024-07-29 12:05] LABS: Glucose Point of Care 82 mg/dl (65-105)
[2024-07-29 14:00] VITALS: BP 125/55; PULSE 84; RESP 18; TEMP 36.1; O2SAT 100
[2024-07-29 16:43] LABS: Glucose Point of Care 77 mg/dl (65-105)
[2024-07-29] MEDS: DEXTROSE 50% 25 GM/50 ML SYRINGE IV PUSH (20:56)
[2024-07-29 21:12] LABS: Glucose Point of Care 67 mg/dl (65-105)
[2024-07-29 21:39] VITALS: BP 127/61; PULSE 86; RESP 18; TEMP 36.2; O2SAT 100
[2024-07-29 21:41] LABS: Glucose Point of Care 99 mg/dl (65-105)
[2024-07-29 22:31] VITALS: PULSE 86
[2024-07-29] MEDS: MONTELUKAST SODIUM 10 MG TABLET PO (22:31)
[2024-07-30 01:28] LABS: Glucose Point of Care 79 mg/dl (65-105)
[2024-07-30 03:59] LABS: Glucose Point of Care 68 mg/dl (65-105)
[2024-07-30 04:00] LABS: Hematocrit 27.9 % (37.0-47.0); Mean Corpuscular HGB Conc 32.3 g/dl (32-36); Mean Corpuscular Hemoglobin 31.5 pg (26-34); Mean Corpuscular Volume 97.6 fl (80-100); Mean Platelet Volume 10.6 fl (7.4-10.4); Platelet Count Result 168 k/mm3 (150-375); Red Blood Count 2.86 M/mm3 (4.2-5.4); Red Cell Distribution Width 19.8 % (11.5-14.5); White Blood Count 6.5 K/mm3 (4.5-10.0)
[2024-07-30] MEDS: DEXTROSE 50% 25 GM/50 ML SYRINGE IV PUSH (04:03)
[2024-07-30 04:10] LABS: Alanine Aminotransferase 12 U/L (6-35); Albumin Level 1.8 g/dL (3.5-5.1); Alkaline Phosphatase 133 U/L (38-126); Anion Gap 2 mmol/L (4-12); Aspartate Amino Transferase 24 U/L (14-36); Bilirubin,Total 0.6 mg/dL (0.2-1.3); Blood Urea Nitrogen 17 mg/dL (7-17); Calcium 7.6 mg/dL (8.4-10.2); Carbon Dioxide 24 mmol/L (22-30); Chloride 108 mmol/L (98-107); Estimated CRCL calculation 41 ml/min; Estimated Glomerular Filt Rate 42; Glucose 72 mg/dL (65-110); Potassium 3.7 mmol/L (3.4-5.0); Sodium 134 mmol/L (137-145)
[2024-07-30 04:53] LABS: Glucose Point of Care 134 mg/dl (65-105)
[2024-07-30 05:28] VITALS: BP 117/40; PULSE 75; RESP 18; TEMP 36.2; O2SAT 100
[2024-07-30] MEDS: LEVOTHYROXINE SODIUM 75 MCG TABLET PO (06:05)
[2024-07-30] MEDS: CENTRAL LINE FLUSH 10 ML IV PUSH ×3 (06:05→21:25)
[2024-07-30] MEDS: VANCOMYCIN HCL 125 MG ORAL CAPSULE PO ×2 (06:05→12:00)
[2024-07-30 08:22] LABS: Glucose Point of Care 86 mg/dl (65-105)
[2024-07-30] MEDS: POTASSIUM CHLORIDE 20 MEQ PACKET (FOR LIQUID) PO (08:53)
[2024-07-30] MEDS: APIXABAN 5 MG TABLET PO ×2 (08:53→21:11)
[2024-07-30] MEDS: PANTOPRAZOLE SODIUM IV 40 MG VIAL IV PUSH ×2 (08:53→21:10)
[2024-07-30] MEDS: ONDANSETRON INJ 4 MG/2 ML VIAL IV PUSH (08:53)
[2024-07-30] MEDS: OLMESARTAN MEDOXOMIL 20 MG TABLET 40 MG PO (08:53)
[2024-07-30] MEDS: SACCHAROMYCES BOULARDII 250 MG CAPSULE PO ×2 (08:53→16:38)
[2024-07-30 08:54] VITALS: PULSE 75
[2024-07-30] MEDS: CYANOCOBALAMIN 1,000 MCG TABLET 1000 MCG PO (08:54)
[2024-07-30] MEDS: SODIUM BICARBONATE TAB 650 MG TABLET PO ×3 (08:54→16:37)
[2024-07-30] MEDS: MAGNESIUM OXIDE 400 MG TABLET PO ×2 (08:54→16:37)
[2024-07-30] MEDS: CALCIUM CARBONATE (OSCAL) 500 MG TABLET PO ×2 (08:54→16:37)
[2024-07-30] MEDS: FOLIC ACID 1 MG TABLET PO (08:54)
[2024-07-30] MEDS: guaiFENesin 12 HR 600 MG TABCR 1200 MG PO ×2 (08:54→21:10)
[2024-07-30] MEDS: ATORVASTATIN 40 MG TABLET 80 MG PO (08:54)
[2024-07-30] MEDS: levETIRAcetam 500 MG TABLET PO ×2 (08:54→21:11)
[2024-07-30] MEDS: METOPROLOL TARTRATE 50 MG TAB PO ×2 (08:54→21:11)
[2024-07-30] MEDS: FERROUS SULFATE 325 MG TABLET DR PO (08:54)
--- NOTE | 2024-07-30 11:05 | PCPTNOTE ---
Attempted to see patient for PT, however patient refused. Patient refused participating in LE exercises, bed mobility, and transfers. Patient refused attempts to use safe patient handling equipment to achieve transfers out of bed to chair. I had a lengthy discussion with patient regarding the importance of improving strength, mobility, and endurance with activity. Patient voices understanding but continues to refuse.
[2024-07-30 12:07] LABS: Glucose Point of Care 84 mg/dl (65-105)
--- NOTE | 2024-07-30 13:10 | P.CONGS_ITS ---
Assessment and Plan Assessment and plan (1) Diverticulitis of large intestine with abscess without bleeding: Code(s): K57.20 - Diverticulitis of large intestine with perforation and abscess without bleeding Status: Acute Assessment and Plan: This patient has been hospitalized 3 times since April and has currently been hospitalized for the past month with a complicated hospital course. She has had multiple CT scans of the abdomen and pelvis over the past 3 months. Her most recent CT scan compared to her CT 4 weeks ago has minimal change. The collection in the LLQ is only minimally larger and is still small enough that percutaneous drainage is not indicated. She had some abdominal pain over the past 2 days but is not complaining of any abdominal pain today, and her abdominal exam is benign. Overall, her diverticulitis appears stable. She would not be a candidate for surgical management in the setting of her refractory C.diff. Along with this, the patient is amidst considering Hospice. She has been on multiple courses of antibiotics over the past few months and her diverticulitis is currently asymptomatic. I would recommend reserving additional antibiotics if she develops any signs of sepsis or becomes more symptomatic with worsening diverticulitis. Would recommend to follow her with serial abdominal exams, labs, and repeat imaging if needed. 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 (2) C. difficile colitis: Onset Date: 2021 Code(s): A04.72 - Enterocolitis due to Clostridium difficile, not specified as recurrent Status: Acute (3) CVA (cerebral vascular accident): Code(s): I63.9 - Cerebral infarction, unspecified Status: Acute (4) Seizure: Code(s): R56.9 - Unspecified convulsions Status: Acute (5) Acute DVT (deep venous thrombosis): Code(s): I82.409 - Acute embolism and thrombosis of unspecified deep veins of unspecified lower extremity Status: Acute (6) Anemia: Qualifiers: Anemia type: due to chronic kidney disease Chronic kidney disease stage: unspecified stage Qualified Code(s): N18.9 - Chronic kidney disease, unspecified; D63.1 - Anemia in chronic kidney disease Code(s): D64.9 - Anemia, unspecified Status: Acute (7) Pneumonia: Code(s): J18.9 - Pneumonia, unspecified organism Status: Acute Plan I have discussed the patient's case and plan of care with Dr. Bunch. Thank you for allowing us to see the patient in consultation and we will continue to follow along with you. History of Present Illness Consult details Consult date: 07/30/24 Reason for consult: other ( Worsening diverticulitis with abscess) Requesting physician: Ramiro Cam MD Narrative: This is a 73-year-old woman with multiple medical problems, who we have seen multiple times since April for diverticulitis. She has been admitted three times in the past 3 months with extended hospitalizations. She has been admitted since 07/02/24 for acute CVA after presenting to the ED for altered mental status from the senior care. Her hospitalization has been complicated by VTE, anemia, recurrent C.diff, seizure, urinary retention, pneumonia, and Influenza A. She had a CT scan of the abdomen and pelvis on this admission that looked as though her diverticulitis was unchanged with a small collection of extraluminal gas in the LLQ. She was initially treated with oral antibiotics for a few days. She has been treated multiple times for C. diff and has recently been accepted to [facility] for fecal transplant. It also appears Hospice has been consulted and plans on discussing this option with the patient today. She developed lower abdominal pain 2 days ago and had an episode of vomiting. She reports having poor appetite for the past few months during her hospitalizations and has not been eating well. She has had previous random episodes of vomiting, but this has not been a consistent problem. She had a repeat CT scan of the abdomen and pelvis yesterday that showed diverticulitis of the descending colon with possible fistula to a slightly larger the fluid and gas collection measuring 3.6 x 1.8 x 1.7 cm. Our service was consulted for the findings on the CT scan. She is not currently on any antibiotics for the diverticulitis and it looks like she has been off antibiotics for this for at least a few weeks. She is on oral vancomycin for C diff. On my exam today, she denies any abdominal pain or nausea. She has not vomited x 2 days. She is tolerating her diet, but still has poor appetite. No other complaints at this time. She tells me she is considering Hospice and plans on speaking with them today. Per nursing, she is still waiting for bed placement at [facility]. Review of Systems 2 Review of Systems: All systems reviewed & are unremarkable except as noted in HPI and below PMFSH Past Medical History Medical History Acute on chronic anemia Occult blood in stools Edema Hypokalemia CVA (cerebral vascular accident) Urinary retention Chronic obstructive pulmonary disease Chronic kidney disease C. difficile colitis (2021) Megaloblastic anemia Hiatal hernia Anxiety Postmenopausal Hypothyroidism Gout Sleep apnea intolerant of CPAP Diverticulitis Hypertension Surgical History Surgical History History of partial hysterectomy History of appendectomy incidental appendectomy during open cholecystectomy History of tonsillectomy and adenoidectomy History of cholecystectomy Family History Family History Other Family history of malignant neoplasm Social History Social History Social History: Surrogate medical decision maker: Jeremiah Tom, son ([phone]). Code status: Do not resuscitate. Smoking packs per day: 1 Smoking cigarettes per day: 20.0 Years smoked: 5 Smoking pack-years: 5.00 Smoking status: Never smoker Tobacco type: cigarettes Alcohol intake: never Substance use: never Substance use type: does not use Do You Feel Safe in your Home?: Yes Lack of Transportation: YES Lack of Food: Never True Current Housing: I Have Housing Concerned About Future Housing: No Difficulty Paying Gas/Electric Bills: No Difficulty Paying for Meds: No Currently Unemployed: No Education: High School Diploma/GED Difficulty w/ Childcare or Family Care: No Additional living arrangements comments: since 1987. She had a daughter who of complications of juvenile diabetes at the age of 40. Her son is still living. Ambulates with a walker. 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 Spiritual care concerns: No Meds Home Medications and Allergies Home Medications ?Medication ?Instructions ?Recorded ?Confirmed ?Type esomeprazole magnesium 40 mg 1 cap PO 2XD 11/23/21 07/02/24 History capsule,delayed release (Nexium) levothyroxine 75 mcg tablet 1 tablet PO DAILY 11/23/21 07/02/24 History (Synthroid) metoprolol tartrate 50 mg tablet 1 tablet PO BID 11/23/21 07/02/24 History (Lopressor) montelukast 10 mg tablet 1 tablet PO HS 11/23/21 07/02/24 History (Singulair) trazodone 100 mg tablet 100 mg PO HS 11/23/21 07/02/24 History meclizine 12.5 mg tablet 12.5 mg PO TID PRN dizziness #60 05/18/24 07/02/24 Rx tabs potassium chloride 10 mEq 1 tablet PO DAILY #30 tabs 05/18/24 07/02/24 Rx tablet,extended release (Klor-Con) alprazolam 1 mg tablet 1 mg PO QID PRN anxiety #5 tabs 06/28/24 07/02/24 Rx fidaxomicin 200 mg tablet (Dificid) 200 mg PO Q12HR #27 tabs 06/28/24 07/02/24 Rx folic acid 1 mg tablet 1 mg PO DAILY #30 tabs 06/28/24 07/02/24 Rx tramadol 50 mg tablet 50 mg PO DAILY PRN pain #5 tabs 06/28/24 07/02/24 Rx tramadol 50 mg tablet 100 mg (2 x 50 mg) PO HS PRN pain 06/28/24 07/02/24 Rx #5 tabs bisacodyl 10 mg rectal suppository 10 mg RECTAL DAILY PRN constipation 07/02/24 07/02/24 History cyanocobalamin (vitamin B-12) 1,000 mcg PO DAILY 07/02/24 07/02/24 History 1,000 mcg tablet (Vitamin B-12) levofloxacin 750 mg tablet 750 mg PO DAILY 07/02/24 07/02/24 History magnesium citrate (Citrate of 296 ml PO DAILY PRN constipation 07/02/24 07/02/24 History Magnesia oral) magnesium hydroxide 400 mg/5 mL 30 ml PO HS PRN constipation 07/02/24 07/02/24 History oral suspension (Dulcolax (magnesium hydroxide)) metronidazole 500 mg tablet 500 mg PO TID 07/02/24 07/02/24 History olmesartan 20 mg tablet (Benicar) 40 mg PO DAILY 07/02/24 07/02/24 History sodium phosphates 19 gram-7 118 ml RECTAL DAILY PRN 07/02/24 07/02/24 History gram/118 mL enema (Enema) constipation vancomycin 125 mg capsule 125 mg PO QID 07/02/24 07/02/24 History (Vancocin) Allergies Allergy/AdvReac Type Severity Reaction Status Date / Time No Known Allergies Allergy Mild Verified 07/02/24 21:56 Vital Signs Vital Signs - 24 hr 07/29/24 14:00 07/29/24 20:00 07/29/24 21:39 Temperature 97 F L 97.1 F L Pulse Rate 84 86 Respiratory Rate 18 18 Blood Pressure 125/55 L 127/61 Pulse Oximetry 100 100 Oxygen Delivery Room Air Fraction of Inspired Oxygen 21 07/29/24 22:31 07/30/24 05:28 07/30/24 08:54 Temperature 97.2 F L Pulse Rate 86 75 75 Respiratory Rate 18 Blood Pressure 117/40 L Pulse Oximetry 100 Oxygen Delivery Fraction of Inspired Oxygen 07/30/24 08:55 Temperature Pulse Rate Respiratory Rate Blood Pressure Pulse Oximetry Oxygen Delivery Room Air Fraction of Inspired Oxygen Exam 2 Const: General: comfortable and no acute distress Nutritional Appearance: o bese Orientation/consciousness: patient oriented x3 HENMT: Head: normocephalic and atraumatic Ears: hearing grossly normal bilaterally Mouth: Yes moist mucous membranes Eyes: General: appearance normal, both eyes and all related structures P upils: Equal, round and reactive pupils present Neck: Neck: normal visual inspection and full ROM Resp: Effort & Inspection: no respiratory distress Auscultation: clear to auscultation bilaterally Cardio: Rate: regular rate Rhythm: regular rhythm GI: Inspection: non-distended, Pannus present, obesity and no visible herniation GI Palp: Yes Soft to palpation, No Tenderness to palpation present (GI), No Guarding due to palpation present (GI), Yes No hepatosplenomegaly present and No Rebound tenderness present Auscultation: normal bowel sounds Urinary Catheter: Urinary Catheter: patent and draining and urine clear (but dark yellow) Skin: General skin exam: normal color Neuro: General: moves all extremities and no focal motor deficits Speech: n ormal speech Motor exam (neuro): 5/5 motor strength present throughout Extrem: General: normal to inspection and no edema Psych: Mental Status: mental status grossly normal Attitude: cooperative Insight: Good insight present (Psych) Judgement: Good judgement present (Psych) Results Labs 07/30/24 03:49 07/30/24 03:49 Labs: Abnormal lab results 07/30/24 07/30/24 Range/Units 03:49 04:48 RBC 2.86 L (4.2-5.4) M/mm3 Hgb 9.0 L (12.0-15.0) g/dL Hct 27.9 L (37.0-47.0) % RDW 19.8 H (11.5-14.5) % MPV 10.6 H (7.4-10.4) fl Sodium 134 L (137-145) mmol/L Chloride 108 H (98-107) mmol/L Anion Gap 2 L (4-12) mmol/L Creatinine 1.24 H (0.7-1.0) mg/dL Estimated GFR 42 L (59 - ) POC Capillary Glucose 134 H (65-105) mg/dl Calcium 7.6 L (8.4-10.2) mg/dL Alkaline Phosphatase 133 H (38-126) U/L Total Protein 5.0 L (6.3-8.2) g/dL Albumin 1.8 L (3.5-5.1) g/dL Diabetes panel 07/30/24 Range/Units 03:49 Sodium 134 L (137-145) mmol/L Potassium 3.7 (3.4-5.0) mmol/L Chloride 108 H (98-107) mmol/L Carbon Dioxide 24 (22-30) mmol/L BUN 17 (7-17) mg/dL Creatinine 1.24 H (0.7-1.0) mg/dL Glucose 72 (65-110) mg/dL Calcium 7.6 L (8.4-10.2) mg/dL AST 24 (14-36) U/L ALT 12 (6-35) U/L Alkaline Phosphatase 133 H (38-126) U/L Total Protein 5.0 L (6.3-8.2) g/dL Albumin 1.8 L (3.5-5.1) g/dL Calcium panel 07/30/24 Range/Units 03:49 Calcium 7.6 L (8.4-10.2) mg/dL Albumin 1.8 L (3.5-5.1) g/dL Pituitary panel 07/30/24 Range/Units 03:49 Sodium 134 L (137-145) mmol/L Potassium 3.7 (3.4-5.0) mmol/L Chloride 108 H (98-107) mmol/L Carbon Dioxide 24 (22-30) mmol/L BUN 17 (7-17) mg/dL Creatinine 1.24 H (0.7-1.0) mg/dL Glucose 72 (65-110) mg/dL Calcium 7.6 L (8.4-10.2) mg/dL Adrenal panel 07/30/24 Range/Units 03:49 Sodium 134 L (137-145) mmol/L Potassium 3.7 (3.4-5.0) mmol/L Chloride 108 H (98-107) mmol/L Carbon Dioxide 24 (22-30) mmol/L BUN 17 (7-17) mg/dL Creatinine 1.24 H (0.7-1.0) mg/dL Glucose 72 (65-110) mg/dL Calcium 7.6 L (8.4-10.2) mg/dL Total Bilirubin 0.6 (0.2-1.3) mg/dL AST 24 (14-36) U/L ALT 12 (6-35) U/L Alkaline Phosphatase 133 H (38-126) U/L Total Protein 5.0 L (6.3-8.2) g/dL Albumin 1.8 L (3.5-5.1) g/dL All other labs normal. Imaging Additional studies: ITS Impressions Chest X-Ray 07/02/24 13:16 IMPRESSION: 1. Small pleural effusions. 2. Airspace opacities at the lung bases, consistent with atelectasis or less likely pneumonia. Head CT 07/02/24 14:34 IMPRESSION: 1. Normal aging brain. Abdomen/Pelvis CT 07/02/24 14:36 IMPRESSION: 1. Persistent small collection of extra luminal gas in the left lower quadrant anterior abdominal wall immediately adjacent to a region of inflammatory stranding surrounding the descending colon consistent with diverticulitis. No abscess or more remote free intraperineal gas or fluid. 2. Persistent moderate-sized bilateral posterior layering pleural effusions with dependent compressive atelectasis in the visualized lower lobes. Brain MRI 07/04/24 11:30 IMPRESSION: 1. 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 2. 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 3. Diffuse pachymeningeal enhancement. This finding is most commonly secondary to prior lumbar puncture or spine procedure. ADDENDUM: 07/04/24 1216 The contrast volume was 20 mL MultiHance. Venous Doppler Study 07/05/24 14:17 IMPRESSION: 1. Extensive deep vein thrombosis in right lower limb. I called this result to Elsy Tao. Chest X-Ray 07/11/24 15:04 IMPRESSION: 1. Improved airspace opacities at left lung base, consistent with atelectasis versus pneumonia. 2. Improved small left pleural effusion. Chest X-Ray 07/17/24 18:28 IMPRESSION: 1. Airspace opacities at left lung base, consistent with atelectasis versus pneumonia. 2. Small left pleural effusion. Modified Barium Swallow 07/24/24 14:55 IMPRESSION: 1. Flash laryngeal penetration. 2. Please refer to the speech therapy report for recommendations. Head CT 07/29/24 13:50 IMPRESSION: 1. Normal aging brain. Abdomen/Pelvis CT 07/29/24 13:52 IMPRESSION: 1. 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 2. Small pleural effusions.
--- NOTE | 2024-07-30 13:30 | PCOTNOTE ---
Attempted to see Patient for OT treatment session at this time. Patient stated she is done, no more, just leave me alone. Therapist discussed the importance of movement and participation for her strengthening. Patient refuses, states she doesn't want to.
--- NOTE | 2024-07-30 13:52 | P.PNIM_ITS ---
Progress Note: A&P Assessment and Plan (1) CVA (cerebral vascular accident): Code(s): I63.9 - Cerebral infarction, unspecified Status: Acute Assessment and Plan: Interval history:Melissa Tom is a 73 year old female hypertension, chronic obstructive pulmonary disease, obstructive sleep apnea intolerant to CPAP, hypothyroidism, gout, anxiety, and Clostridium difficile diarrhea who presented to the emergency department via EMS from [facility] for evaluation of altered mental status. Hospital course is complicated and initially presenting with AMS found to have CVA and seizure with failed o/p management of c.diff/diverticulitis. Complicated hospital course with acute CVA,acute VTE of the lower ext, anemia requiring transfusions, most recent 2 units on 07/17/24. She has developed urinary retention and fitzpatrick has been in place. Completed tamiflu for influenza A yesterday - a focal infiltrate is now noted and patient less oriented. Abx for pna have been started today, 07/18/24. -Tested positive For C diff in November of 2021. Recent stool studies performed showed C diff positive. As per documentation patient received Dificid from 06/21-07/08. Started Vancomycin taper 07/08-07/19 and again started on Vancomycin taper on 07/20 1)Patient was previously treated with Dificid which according to records she failed treatment. 2)She is currently on 2 nd time on vancomycin taper 125 mg orally 4 times daily for 10 to 14 days, 125 mg orally twice daily for 7 days, 125 mg orally once daily for 7 days, then 125 mg orally every 2 to 3 days for 2 to 8 weeks. 3) Patient states that she has been experiencing diarrhea for a few years but was worse recently but she was unable to provide any further details regarding bowel frequency. She states that over the past few months she has lost 30 lb without trying, current weight 209 lb. I called [facility] accepted the patient for fecal transplant. Accepting hospitalist is and GI is . Pending transfer to [facility]. Consulted hospice as per patient request 07/11/24: * MRA of brain showing acute infarct in the left frontoparietal lobe in the deep white matter * Left lower extremity weakness * PT and OT ordered * Continue atorvastatin, Plavix * Aspirin currently on hold as she is on Eliquis for DVT prophylaxis * A Neurology following 07/15 * continue Eliquis * neurology following 07/16 * No change 07/20 - Stable. On atorvastatin. Asa/plavix previously held. Apixaban resumed. (2) Seizure: Code(s): R56.9 - Unspecified convulsions Status: Acute Assessment and Plan: 07/11 * New onset * CT of the head was negative * MRI showing acute infarct in the left frontoparietal lobe in deep white matter * EEG findings abnormal read, cannot rule out seizure activity * Continue atorvastatin, Plavix * Will hold baby aspirin considering patient is on Eliquis * Continue Keppra * Continue seizure precautions * Cardiac telemetry stable, we will go ahead and discontinue continuous telemetry * Move out of IMU to regular med surge floor 07/15 * continue neuro checks * continue seizure precautions * continue Keppra, atorvastatin, Plavix * neurology following 07/16 * no change 07/18-07/20 - No new seizure activity. - Cont. keppra at 500mg bid. (3) C. difficile diarrhea: Code(s): A04.72 - Enterocolitis due to Clostridium difficile, not specified as recurrent Status: Acute Assessment and Plan: 07/11/24 * Continue vancomycin pulse dosing * Pulse taper vanc dose as follows: 125 mg orally 4 times daily for 10 to 14 days, then 125 mg orally twice daily for 7 days, then 125 mg orally once daily for 7 days, then 125 mg orally every 2 to 3 days for 2 to 8 weeks 07/15 * no change to current treatment plan 07/18 - Cont. current pulse/taper. Orders are in. 07/20: restarted Oral Vancomycin 07/21: patient completed 2 courses of fidaxomicin and Tapering dose of oral Vancomycin. Consulted GI for fecal microbiota transplantation Tested positive For C diff in November of 2021. Recent stool studies performed 06/21/2024 showed C diff positive. As per documentation patient received Dificid from 06/21-07/08. Started Vancomycin taper 07/08-07/19 and again started on Vancomycin taper on 07/20 [facility] accepted the patient for fecal transplant. Accepting hospitalist is and GI is Consulted hospice (4) Diverticulitis of intestine with perforation without abscess: Qualifiers: Diverticulitis site: large intestine Diverticulitis bleeding: without bleeding Qualified Code(s): K57.20 - Diverticulitis of large intestine with perforation and abscess without bleeding Code(s): K57.80 - Diverticulitis of intestine, part unspecified, with perforation and abscess without bleeding Status: Acute Assessment and Plan: 07/11/24 * Failed Dificid * Continue oral vancomycin 07/15 * continue oral vancomycin 07/16 * No change 07/18 - Stable, completing oral vancomycin pulse/taper. 07/20: completed oral vancomycin Tested positive For C diff in November of 2021. Recent stool studies performed 06/21/2024 showed C diff positive. As per documentation patient received Dificid from 06/21-07/08. Started Vancomycin taper 07/08-07/19 and again started on Vancomycin taper on 07/20 07/29: Patient had multiple episodes of vomiting today and performed abdominal CT shows Diverticulitis of descending colon with fistula to a worsened small abscess. Will notify surgery. (5) Anemia: Qualifiers: Anemia type: due to chronic kidney disease Chronic kidney disease stage: unspecified stage Qualified Code(s): N18.9 - Chronic kidney disease, unspecified; D63.1 - Anemia in chronic kidney disease Code(s): D64.9 - Anemia, unspecified Status: Acute Assessment and Plan: 07/11/24 * Continue to transfuse for hemoglobin less than 7 * Patient receive 1 unit of blood this admission * Currently on Eliquis, Plavix * Will hold aspirin * Continue to trend 07/15 * hemoglobin 7.5 * no change to current treatment plan 07/18 - S/P 2 units prbc overnight with improvement noted on overnight labs. - Resume anticoag. - GI had been consulted, not able to perform colonoscopy currently with diverticulitis, patient had previously refused as well. (6) Acute DVT (deep venous thrombosis): Code(s): I82.409 - Acute embolism and thrombosis of unspecified deep veins of unspecified lower extremity Status: Acute Assessment and Plan: 07/11/24 * Venous Doppler showing extensive right lower extremity DVT * Patient was started on Lovenox and then switched to heparin infusion on 07/09/2024. She later developed dark tarry stools and a drop in her hemoglobin requiring blood transfusion. Heparin drip was placed on hold for 24 hours and then she was restarted on Eliquis 10 mg daily x7 days--standard protocol * General surgery was consulted for IVC filter however she is not a candidate at this time due to her other comorbidities * Continue Eliquis as stated above 07/15 * continue Eliquis 07/16 * No change 07/18 - Eliquis held overnight d/t needing two units prbc. - Stable hgb resuming eliquis. 07/20: Resumed Eliquis. Will monitor H and H (7) Occult blood in stools: Code(s): R19.5 - Other fecal abnormalities Status: Acute Assessment and Plan: 07/11/24 * Patient was occult blood positive on 07/09/2024 * She was given 1 unit of blood * H&H is stable * GI recommending outpatient colonoscopy considering her comorbidities * Recently diagnosed with diverticulitis and C diff colitis S/p 2 units of pRBC Hb stable at 9.0 Eliquis resumes (8) Delirium: Code(s): R41.0 - Disorientation, unspecified Status: Acute Assessment and Plan: 07/15 * more confused today * continue neuro checks * encourage good sleep hygiene 07/16 * continue neuro checks * currently alert and oriented x3 07/18 - Drowsy this am but rousable and and answers questions. Improved later in the am. No focal deficits. - Cont. to monitor closely for developing infection - post influenza pna, UTI, etc. Check urine this am, pending. - Treating for pna. (9) Pneumonia: Code(s): J18.9 - Pneumonia, unspecified organism Status: Acute Assessment and Plan: 07/18 - Slightly less oriented than reported from day prior this morning, improving in the late morning, cxr shows infiltrate. Completed antibiotics (10) Upper respiratory infection: Code(s): J06.9 - Acute upper respiratory infection, unspecified Status: Acute Assessment and Plan: 07/11/24 * Patient reported cold-like symptoms with a nonproductive cough and wheezing * Will check for influenza a and B, RSV, COVID * Start DuoNebs q.6 hour * Will obtain chest x-ray * Incentive spirometry while awake * Pep therapy with cornet flutter valve 07/15 * no change to current treatment plan 07/17 * Chest x-ray ordered * Still coarse rhonchi * Patient finished course Tamiflu for influenza a * Continue incentive spirometry and pep therapy 07/18 - Completed tamiflu, breathing easily. Lungs diminished bilaterally with slightly coarse rales in the right. (11) Urinary retention: Code(s): R33.9 - Retention of urine, unspecified Status: Acute Assessment and Plan: 07/11/24: * Patient had acute urinary retention requiring Fitzpatrick on 07/03/24 * Urology was consulted * Patient failed voiding trial * Patient will keep catheter and repeat voiding trial in 1-2 weeks on an outpatient basis with Urology 07/15 * no change to current treatment plan 07/18 - Catheter in place, consider trial of voiding 07/25 at the two week kelly. (12) Hypokalemia: Code(s): E87.6 - Hypokalemia Status: Acute Assessment and Plan: K 3.7 today monitor (13) Hypothyroidism: Qualifiers: Hypothyroidism type: unspecified Qualified Code(s): E03.9 - Hypothyroidism, unspecified Code(s): E03.9 - Hypothyroidism, unspecified Status: Chronic Assessment and Plan: 07/11/24 * Continue Synthroid 07/15 * no change to current treatment plan 07/18 - Cont. current. (14) Hypertension: Qualifiers: Hypertension type: primary hypertension Qualified Code(s): I10 - Essential (primary) hypertension Code(s): I10 - Essential (primary) hypertension Status: Chronic Assessment and Plan: -Blood pressure ranging 105/ 81 to 146/73 - Continue metoprolol, Benicar and monitor. -no change to current treatment plan -BP generally 130-140, trending higher this am, consider uptitration if trend continues. (15) Dysphagia: Qualifiers: Dysphagia type: esophageal phase Qualified Code(s): R13.19 - Other dysphagia Code(s): R13.10 - Dysphagia, unspecified Status: Acute Assessment and Plan: Last EGD with dilation 05/15/2024 revealed a small hiatal hernia but no findings to explain symptoms. Following her EGD esophageal manometry was recommended to rule out achalasia but this was not arranged. Patient states that for the past 2 months she has been having postprandial nausea and vomiting. She is still having intermittent swallowing difficulty with solids, liquids, and pills. * esophagram ordered, if workup is unremarkable and symptoms persist we can arrange an esophageal manometry or endo flip as outpatient * continue supportive care with antiemetics (16) Hypernatremia: Code(s): E87.0 - Hyperosmolality and hypernatremia Status: Acute Assessment and Plan: Resolved Na 134 JORDAN Cr 1.24 from 0.87 started on IVF monitor Plan Melissa Tom is a 73 year old female hypertension, chronic obstructive pulmonary disease, obstructive sleep apnea intolerant to CPAP, hypothyroidism, gout, anxiety, and Clostridium difficile diarrhea who presented to the emergency department via EMS from [facility] for evaluation of altered mental status. Hospital course is complicated and initially presenting with AMS found to have CVA and seizure with failed o/p management of c.diff/diverticulitis. Complicated hospital course with acute CVA,acute VTE of the lower ext, anemia requiring transfusions, most recent 2 units on 07/17/24. She has developed urinary retention and fitzpatrick has been in place. Completed tamiflu for influenza A yesterday - a focal infiltrate is now noted and patient less oriented. Abx for pna have been started today, 07/18/24. -Tested positive For C diff in November of 2021. Recent stool studies performed 06/21/2024 showed C diff positive. As per documentation patient received Dificid from 06/21-07/08. Started Vancomycin taper 07/08-07/19 and again started on Vancomycin taper on 07/20 1)Patient was previously treated with Dificid which according to records she failed treatment. 2)She is currently on 2 nd time on vancomycin taper 125 mg orally 4 times daily for 10 to 14 days, 125 mg orally twice daily for 7 days, 125 mg orally once daily for 7 days, then 125 mg orally every 2 to 3 days for 2 to 8 weeks. 3) Patient states that she has been experiencing diarrhea for a few years but was worse recently but she was unable to provide any further details regarding bowel frequency. She states that over the past few months she has lost 30 lb without trying, current weight 209 lb. [facility]. Accepting hospitalist is and GI is Hospice to reach out to the son to discuss hospice further Subjective Date/time seen: 07/30/24 13:52 Interval history: Interval history:Melissa Tom is a 73 year old female hypertension, chronic obstructive pulmonary disease, obstructive sleep apnea intolerant to CPAP, hypothyroidism, gout, anxiety, and Clostridium difficile diarrhea who presented to the emergency department via EMS from [facility] for evaluation of altered mental status. Hospital course is complicated and initially presenting with AMS found to have CVA and seizure with failed o/p management of c.diff/diverticulitis. Complicated hospital course with acute CVA,acute VTE of the lower ext, anemia requiring transfusions, most recent 2 units on 07/17/24. She has developed urinary retention and fitzpatrick has been in place. Completed tamiflu for influenza A yesterday - a focal infiltrate is now noted and patient less oriented. Abx for pna have been started today, 07/18/24. -Tested positive For C diff in November of 2021. Recent stool studies performed 06/21/2024 showed C diff positive. As per documentation patient received Dificid from 06/21-07/08. Started Vancomycin taper 07/08-07/19 and again started on Vancomycin taper on 07/20 1)Patient was previously treated with Dificid which according to records she failed treatment. 2)She is currently on 2 nd time on vancomycin taper 125 mg orally 4 times daily for 10 to 14 days, 125 mg orally twice daily for 7 days, 125 mg orally once daily for 7 days, then 125 mg orally every 2 to 3 days for 2 to 8 weeks. 3) Patient states that she has been experiencing diarrhea for a few years but was worse recently but she was unable to provide any further details regarding bowel frequency. She states that over the past few months she has lost 30 lb without trying, current weight 209 lb. [facility] called [facility]. Accepting hospitalist is and GI is . Pending [facility] to [facility]. Consulted hospice as per patient request 07/29: Given K 60 meq. Increased her K from 10meq to 20 meq. Had a very long discussion with the patient. Patient reports she want to leave home. I explained that she was being accepted into [facility], which could fix some of her issues but not everything. She reported being tired of getting all the treatments. Then I explained to her the option of hospice, and she completely understood and wanted to go to hospice. I then brought TOMAS Atkins, to the room, and we both explained the option she has: either going to [facility] or hospice. The patient is AO x3. She insisted on going to the hospice. I will call her son and will try to get hold of him. Consulted hospice. Called her son but he didnt answer his phone.Of note patient had multiple episodes of vomiting today and performed abdominal CT shows Diverticulitis of descending colon with fistula to a worsened small abscess. Will notify surgery. Review of Systems Review of Systems: All systems reviewed & are unremarkable except as noted in HPI and below Constitutional: Constitutional: Reports no additional constitutional complaints Eyes: Eyes: Reports no additional eye complaints ENT: Reports system reviewed and no additional complaints, except as documented Cardiovascular: Cardiovascular: Reports no additional cardiovascular complaints Respiratory: Respiratory: Reports no additional respiratory complaints Gastrointestinal: Gastrointestinal: Reports no additional gastrointestinal complaints and Reports diarrhea Genitourinary: Genitourinary: Reports no additional female genitourinary complaints Musculoskeletal: Musculoskeletal: Reports no additional musculoskeletal complaints Integumentary/Breasts: Skin/Breast: Reports system reviewed and no additional complaints, except as docu and Reports as per HPI Neurologic: Reports system reviewed and no additional complaints, except as documented Psychiatric: Psychiatric: Reports no additional psychiatric complaints and Reports as per HPI Endocrine: Endocrine: Reports no additional endocrine complaints and Reports as per HPI Hematologic/Lymphatic: Hematologic/Lymphatic: Reports no additional hematologic/lymphatic complaints and Reports as per HPI Allergic/Immunologic: Allergic/Immunologic: Reports no additional allergic/immunologic complaints and Reports as per HPI Exam Narrative: GENERAL APPEARANCE: Appears to be in no acute distress. HEAD: normocephalic atraumatic EYES: EOMI. ENT: Hearing grossly intact, no nasal discharge NECK: Neck supple, trachea midline. CARDIAC: Normal S1/S2. Rhythm is regular. No murmurs, rubs, or gallops. No cyanosis or pallor. Extremities are warm and well perfused. LUNGS: Clear to auscultation without rales, rhonchi, wheezing. Breath sounds are bilaterally diminished.. Respirations even and unlabored. ABDOMEN: BS positive x 4 quadrants. Soft, nondistended, nontender. No guarding or rebound. MSK: No joint tenderness/swelling, fair strength in all extremities. PERIPHERAL VASCULAR: Peripheral pulses palpable. Normal perfusion, cap refill <2 seconds. No edema. NEURO: Follows commands. No focal deficits.Drowsy this am but oriented to self and situation. SKIN: [place] without lesions or eruptions. PSYCH: Stable, Const: General: cooperative, no acute distress, alert, awake and obese Nutritional Appearance: obese Orientation/consciousness: oriented to person, oriented to place and oriented to time HENMT: Head: normal to inspection and normocephalic Eyes: General: appearance normal, both eyes and all related structures Neck: Neck: normal visual inspection, full ROM and no lymphadenopathy Chest: Chest palpation & inspection: normal inspection of the chest Resp: Effort & Inspection: normal respiratory effort, able to speak in complete sentences and Actively coughing Auscultation: clear to auscultation bilaterally and diminished lung sounds bilateral in the lower lung forbes Cardio: Jugular venous distension: no JVD Palpation: normal PMI Rate: regular rate Rhythm: regular rhythm Heart sounds: S1 normal heart sound present and S2 normal heart sound present GI: Inspection: normal to inspection Auscultation: High-pitched bowel sounds present and Hyperactive bowel sounds present Rectal Exam: other (rectal tube in place, liquid stool noted) Other: rectal tube in place and draining liquid stool Urinary Catheter: Urinary Catheter: patent and draining and urine clear Skin: General skin exam: normal color and no rashes or lesions noted Neuro: General: oriented to person, oriented to place, oriented to time, tone normal and moves all extremities Extrem: General: normal to inspection and full ROM Psych: Appearance: grossly normal Mental Status: mental status grossly normal Speech and movement: Normal speech and movement present Objective Data Vital Signs Vital Signs: Vital Signs - 24 hr 07/29/24 14:00 07/29/24 20:00 07/29/24 21:39 Temperature 97 F L 97.1 F L Pulse Rate 84 86 Respiratory Rate 18 18 Blood Pressure 125/55 L 127/61 Pulse Oximetry 100 100 Oxygen Delivery Room Air Fraction of Inspired Oxygen 21 07/29/24 22:31 07/30/24 05:28 07/30/24 08:54 Temperature 97.2 F L Pulse Rate 86 75 75 Respiratory Rate 18 Blood Pressure 117/40 L Pulse Oximetry 100 Oxygen Delivery Fraction of Inspired Oxygen 07/30/24 08:55 Temperature Pulse Rate Respiratory Rate Blood Pressure Pulse Oximetry Oxygen Delivery Room Air Fraction of Inspired Oxygen Intake/Output Intake/Output: Intake & Output 07/27/24 07/28/24 07/29/24 07/30/24 23:59 23:59 23:59 23:59 Intake Total 2550 250 0 50 Output Total 201 600 400 Balance 2349 -350 -400 50 Meds/Results Medications: Active Medications Generic Name Dose Route Start Last Admin Trade Name Maximo PRN Reason Stop Dose Admin Acetaminophen 1,000 mg 07/11/24 16:52 07/27/24 20:26 Acetaminophen 500 Mg Tablet PO 1,000 mg Q6H PRN Administration Mild Pain (1-3) or Fever Albuterol/Ipratropium 3 ml 07/19/24 17:28 Ipratropium 0.5 Mg/Albuterol Sulfate 2.5 Mg Ampul.Neb 3 Ml INHALATION Q6HRT PRN Wheezing Apixaban 5 mg 07/12/24 21:00 07/30/24 08:53 Apixaban 5 Mg Tablet PO 5 mg Q12HR SOLITARIO Administration Atorvastatin Calcium 80 mg 07/04/24 21:00 07/30/24 08:54 Atorvastatin 40 Mg Tablet PO 80 mg DAILY SOLITARIO Administration Calcium Carbonate 500 mg 07/14/24 08:00 07/30/24 08:54 Calcium Carbonate (Oscal) 500 Mg Tablet PO 500 mg BIDWM SOLITARIO Administration Cyanocobalamin 1,000 mcg 07/12/24 09:00 07/30/24 08:54 Cyanocobalamin 1,000 Mcg Tablet PO 1,000 mcg DAILY SOLITARIO Administration Dextrose 12.5 gm 07/20/24 16:44 07/30/24 04:03 Dextrose 50% 25 Gm/50 Ml Syringe IV PUSH 12.5 gm PRN PRN Administration Hypoglycemia Protocol Ferrous Sulfate 325 mg 07/15/24 09:00 07/30/24 08:54 Ferrous Sulfate [address] PO 325 mg DAILY SOLITARIO Administration Folic Acid 1 mg 07/03/24 09:00 07/30/24 08:54 Folic Acid 1 Mg Tablet PO 1 mg DAILY SOLITARIO Administration Glucagon 1 mg 07/20/24 16:44 Glucagon For Inj 1 Mg Vial IM PRN PRN Hypoglycemia Protocol Glucose 15 gm 07/20/24 16:44 07/20/24 17:02 Glucose Oral Gel 15 Gm Of Glucse In 37.5 Gm Tube PO 15 gm PRN PRN Administration Hypoglycemia Protocol Guaifenesin 1,200 mg 07/11/24 21:00 07/30/24 08:54 Guaifenesin 12 Hr 600 Mg Tabcr PO 1,200 mg Q12HR SOLITARIO Administration Dextrose 1,000 mls @ 100 mls/hr 07/20/24 16:44 Dextrose 5% 1,000 Ml IVPB PRN PRN Hypoglycemia Protocol Levetiracetam 500 mg 07/03/24 12:30 07/30/24 08:54 Levetiracetam 500 Mg Tablet PO 500 mg Q12HR SOLITARIO Administration Levothyroxine Sodium 75 mcg 07/03/24 06:30 07/30/24 06:05 Levothyroxine Sodium 75 Mcg Tablet PO 75 mcg DAILY@0630 SOLITARIO Administration Lidocaine 1 patch 07/12/24 09:00 07/30/24 08:54 Lidocaine 5% Patch TRANSDERM Not Given DAILY SOLITARIO Lorazepam 2 mg 07/28/24 17:44 07/28/24 17:57 Lorazepam Inj (*Crx) 2 Mg/Ml Vial IV PUSH 2 mg Q4H PRN Administration Seizures Magnesium Oxide 400 mg 07/06/24 17:00 07/30/24 08:54 Magnesium Oxide 400 Mg Tablet PO 400 mg BID SOLITARIO Administration Metoprolol Tartrate 50 mg 07/03/24 09:00 07/30/24 08:54 Metoprolol Tartrate 50 Mg Tab PO 50 mg Q12HR SOLITARIO Administration Montelukast Sodium 10 mg 07/03/24 00:15 07/29/24 22:31 Montelukast Sodium 10 Mg Tablet PO 10 mg HS SOLITARIO Administration Olmesartan 40 mg 07/03/24 09:00 07/30/24 08:53 Olmesartan Medoxomil 20 Mg Tablet PO 40 mg DAILY SOLITARIO Administration Ondansetron HCl 4 mg 07/28/24 10:52 07/30/24 08:53 Ondansetron Inj 4 Mg/2 Ml Vial IV PUSH 4 mg Q4H PRN Administration Nausea And Vomiting Pantoprazole Sodium 40 mg 07/09/24 12:35 07/30/24 08:53 Pantoprazole Sodium Iv 40 Mg Vial IV PUSH 40 mg Q12HR SOLITARIO Administration Potassium Chloride 20 meq 07/30/24 09:00 07/30/24 08:53 Potassium Chloride 20 Meq Packet (For Liquid) PO 20 meq DAILY SOLITARIO Administration Saccharomyces Boulardii 250 mg 07/22/24 17:00 07/30/24 08:53 Saccharomyces Boulardii 250 Mg Capsule PO 250 mg BID SOLITARIO Administration Sodium Bicarbonate 650 mg 07/16/24 17:00 07/30/24 12:00 Sodium Bicarbonate Tab 650 Mg Tablet PO 650 mg TID SOLITARIO Administration Sodium Chloride 20 ml 07/04/24 16:15 07/24/24 05:49 Central Line Flush IV PUSH 20 ml PRN PRN Administration after blood draws Sodium Chloride 10 ml 07/04/24 16:15 Central Line Flush IV PUSH PRN PRN with TPN bag changes Sodium Chloride 10 ml 07/04/24 22:00 07/30/24 12:00 Central Line Flush IV PUSH 10 ml Q8HR [facility] Administration Trazodone HCl 100 mg 07/11/24 21:00 07/29/24 23:33 Trazodone Hcl 50 Mg Tablet PO Not Given HS [facility] Vancomycin HCl 125 mg 07/20/24 18:00 07/30/24 12:00 Vancomycin Hcl 125 Mg Oral Capsule PO 07/30/24 17:59 125 mg Q6HR [facility] Administration Radiology Results: ITS Impressions Brain MRI 07/04/24 11:30 IMPRESSION: 1. 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 2. 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 3. Diffuse pachymeningeal enhancement. This finding is most commonly secondary to prior lumbar puncture or spine procedure. ADDENDUM: 07/04/24 1216 The contrast volume was 20 mL MultiHance. Venous Doppler Study 07/05/24 14:17 IMPRESSION: 1. Extensive deep vein thrombosis in right lower limb. I called this result to Elsy Tao. Chest X-Ray 07/17/24 18:28 IMPRESSION: 1. Airspace opacities at left lung base, consistent with atelectasis versus pneumonia. 2. Small left pleural effusion. Modified Barium Swallow 07/24/24 14:55 IMPRESSION: 1. Flash laryngeal penetration. 2. Please refer to the speech therapy report for recommendations. Head CT 07/29/24 13:50 IMPRESSION: 1. Normal aging brain. Abdomen/Pelvis CT 07/29/24 13:52 IMPRESSION: 1. 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 2. Small pleural effusions. Labs Labs: Laboratory Results - last 24 hr 07/29/24 07/29/24 07/29/24 16:35 20:47 21:18 WBC RBC Hgb Hct MCV MCH MCHC RDW Plt Count MPV Sodium Potassium Chloride Carbon Dioxide Anion Gap BUN Creatinine Estim Creat Clear Calc Estimated GFR Glucose POC Capillary Glucose 77 67 99 Calcium Total Bilirubin AST ALT Alkaline Phosphatase Total Protein Albumin 07/30/24 07/30/24 07/30/24 01:19 03:49 03:53 WBC 6.5 RBC 2.86 L Hgb 9.0 L Hct 27.9 L MCV 97.6 MCH 31.5 MCHC 32.3 RDW 19.8 H Plt Count 168 MPV 10.6 H Sodium 134 L Potassium 3.7 Chloride 108 H Carbon Dioxide 24 Anion Gap 2 L BUN 17 Creatinine 1.24 H Estim Creat Clear Calc 41 Estimated GFR 42 L Glucose 72 POC Capillary Glucose 79 68 Calcium 7.6 L Total Bilirubin 0.6 AST 24 ALT 12 Alkaline Phosphatase 133 H Total Protein 5.0 L Albumin 1.8 L 07/30/24 07/30/24 07/30/24 04:48 08:05 12:03 WBC RBC Hgb Hct MCV MCH MCHC RDW Plt Count MPV Sodium Potassium Chloride Carbon Dioxide Anion Gap BUN Creatinine Estim Creat Clear Calc Estimated GFR Glucose POC Capillary Glucose 134 H 86 84 Calcium Total Bilirubin AST ALT Alkaline Phosphatase Total Protein Albumin Quality VTE Prophylaxis VTE prophylaxis: pharmacologic ordered
[2024-07-30 14:00] VITALS: BP 112/47; PULSE 77; RESP 22; TEMP 36.4; O2SAT 99
[2024-07-30] MEDS: SODIUM CHLORIDE 0.9% IV 1,000 ML 75 ML IV CONT (16:37)
[2024-07-30 19:58] LABS: Glucose Point of Care 81 mg/dl (65-105)
[2024-07-30 21:02] LABS: Glucose Point of Care 107 mg/dl (65-105)
[2024-07-30] MEDS: traZODone HCL 50 MG TABLET 100 MG PO (21:10)
[2024-07-30 21:11] VITALS: PULSE 82
[2024-07-30] MEDS: MONTELUKAST SODIUM 10 MG TABLET PO (21:12)
[2024-07-30 21:24] VITALS: BP 125/68; PULSE 82; RESP 18; TEMP 36.6; O2SAT 100
[2024-07-31 05:37] VITALS: BP 134/74; PULSE 82; RESP 20; TEMP 36.9; O2SAT 96
[2024-07-31] MEDS: SODIUM CHLORIDE 0.9% IV 1,000 ML 75 ML IV CONT (06:03)
[2024-07-31] MEDS: LEVOTHYROXINE SODIUM 75 MCG TABLET PO (06:03)
[2024-07-31] MEDS: CENTRAL LINE FLUSH 10 ML IV PUSH ×3 (06:04→21:15)
[2024-07-31 06:32] LABS: Basophils Percent Auto 0.5 % (0.2-1.2); Eosinophils Absolute Auto 0.1 K/mm3 (0-0.3); Eosinophils Percent Auto 2.1 % (0-4.4); Hematocrit 28.4 % (37.0-47.0); Hemoglobin 8.8 g/dL (12.0-15.0); Immature Granulocyte Absolute 0.03 K/mm3 (0.00-0.031); Immature Granulocyte Percent A 0.5 % (0-0.5); Lymphocytes Absolute Auto 1.04 K/mm3 (0.9-3.2); Lymphocytes Percent Auto 18.6 % (18.3-44.2); Mean Corpuscular Hemoglobin 30.7 pg (26-34); Mean Platelet Volume 10.5 fl (7.4-10.4); Monocytes Absolute Auto 0.6 K/mm3 (0.1-0.6); Monocytes Percent Auto 11.3 % (2.6-8.5); Neutrophils Absolute Auto 3.7 K/mm3 (1.3-6.7); Platelet Count Result 158 k/mm3 (150-375); Red Blood Count 2.87 M/mm3 (4.2-5.4); Red Cell Distribution Width 19.6 % (11.5-14.5); White Blood Count 5.6 K/mm3 (4.5-10.0)
[2024-07-31 06:36] LABS: Alanine Aminotransferase 12 U/L (6-35); Albumin Level 1.7 g/dL (3.5-5.1); Alkaline Phosphatase 126 U/L (38-126); Anion Gap 3 mmol/L (4-12); Aspartate Amino Transferase 27 U/L (14-36); Bilirubin,Total 0.5 mg/dL (0.2-1.3); Blood Urea Nitrogen 15 mg/dL (7-17); Calcium 7.3 mg/dL (8.4-10.2); Carbon Dioxide 24 mmol/L (22-30); Chloride 109 mmol/L (98-107); Estimated CRCL calculation 44 ml/min; Estimated Glomerular Filt Rate 46; Glucose 80 mg/dL (65-110); Magnesium 1.8 mg/dL (1.6-2.3); Potassium 3.4 mmol/L (3.4-5.0); Sodium 136 mmol/L (137-145)
[2024-07-31 07:51] LABS: Glucose Point of Care 78 mg/dl (65-105)
[2024-07-31 09:17] VITALS: PULSE 82
[2024-07-31] MEDS: CYANOCOBALAMIN 1,000 MCG TABLET 1000 MCG PO (09:17)
[2024-07-31] MEDS: levETIRAcetam 500 MG TABLET PO ×2 (09:17→21:14)
[2024-07-31] MEDS: SODIUM BICARBONATE TAB 650 MG TABLET PO ×3 (09:17→17:26)
[2024-07-31] MEDS: ATORVASTATIN 40 MG TABLET 80 MG PO (09:17)
[2024-07-31] MEDS: FOLIC ACID 1 MG TABLET PO (09:17)
[2024-07-31] MEDS: SACCHAROMYCES BOULARDII 250 MG CAPSULE PO ×2 (09:17→17:26)
[2024-07-31] MEDS: METOPROLOL TARTRATE 50 MG TAB PO (09:17)
[2024-07-31] MEDS: OLMESARTAN MEDOXOMIL 20 MG TABLET 40 MG PO (09:17)
[2024-07-31] MEDS: CALCIUM CARBONATE (OSCAL) 500 MG TABLET PO ×2 (09:17→17:26)
[2024-07-31] MEDS: guaiFENesin 12 HR 600 MG TABCR 1200 MG PO ×2 (09:17→21:15)
[2024-07-31] MEDS: PANTOPRAZOLE SODIUM IV 40 MG VIAL IV PUSH ×2 (09:18→21:14)
[2024-07-31] MEDS: APIXABAN 5 MG TABLET PO ×2 (09:18→21:15)
[2024-07-31] MEDS: POTASSIUM CHLORIDE 20 MEQ PACKET (FOR LIQUID) PO (09:18)
[2024-07-31] MEDS: MAGNESIUM OXIDE 400 MG TABLET PO ×2 (09:18→17:26)
[2024-07-31] MEDS: FERROUS SULFATE 325 MG TABLET DR PO (09:18)
--- NOTE | 2024-07-31 10:50 | PCNFU ---
Nutrition Follow-Up Complete: Altered GI function related to C.diff as evidenced by liquid stool Goal:PO intake greater than 50% Formed stool Pt not meeting goals. Pt current nutrition is Heart healthy, Ensure Enlive BID, Banatrol TID. Nutrition recommendation: encourage po intake Last recorded weight is 96.4 kg. Bowel Motility: +BM 3/5 Labs Reviewed: Hgb:8.8, HCT:7.3, NA:136, GFR:46, Cr:1.5 Meds Noted: folic acid, protonix Skin: WNL Additional Notes: Pt continues on a heart healthy diet, Ensure Enlive BID and Banatrol TID for C.Diff. Pt intake is poor overall, 0-75%. Noted pt is possibly transferring to [facility] or choosing hospice care. Encourage po intake. Monitor status, intake, wt, labs, stool output. Follow up in 5 days.
[2024-07-31 11:47] LABS: Glucose Point of Care 84 mg/dl (65-105)
[2024-07-31 13:35] VITALS: BMI 10.0
[2024-07-31 14:00] VITALS: BP 119/76; PULSE 78; RESP 18; TEMP 36.5; O2SAT 100
--- NOTE | 2024-07-31 14:21 | P.PNIM_ITS ---
Progress Note: A&P Assessment and Plan (1) CVA (cerebral vascular accident): Code(s): I63.9 - Cerebral infarction, unspecified Status: Acute Assessment and Plan: Interval history:Melissa Tom is a 73 year old female hypertension, chronic obstructive pulmonary disease, obstructive sleep apnea intolerant to CPAP, hypothyroidism, gout, anxiety, and Clostridium difficile diarrhea who presented to the emergency department via EMS from [facility] for evaluation of altered mental status. Hospital course is complicated and initially presenting with AMS found to have CVA and seizure with failed o/p management of c.diff/diverticulitis. Complicated hospital course with acute CVA,acute VTE of the lower ext, anemia requiring transfusions, most recent 2 units on 07/17/24. She has developed urinary retention and fitzpatrick has been in place. Completed tamiflu for influenza A yesterday - a focal infiltrate is now noted and patient less oriented. Abx for pna have been started today, 07/18/24. -Tested positive For C diff in November of 2021. Recent stool studies performed showed C diff positive. As per documentation patient received Dificid from 06/21-07/08. Started Vancomycin taper 07/08-07/19 and again started on Vancomycin taper on 07/20 1)Patient was previously treated with Dificid which according to records she failed treatment. 2)She is currently on 2 nd time on vancomycin taper 125 mg orally 4 times daily for 10 to 14 days, 125 mg orally twice daily for 7 days, 125 mg orally once daily for 7 days, then 125 mg orally every 2 to 3 days for 2 to 8 weeks. 3) Patient states that she has been experiencing diarrhea for a few years but was worse recently but she was unable to provide any further details regarding bowel frequency. She states that over the past few months she has lost 30 lb without trying, current weight 209 lb. I called [facility] accepted the patient for fecal transplant. Accepting hospitalist is and GI is . Pending transfer to [facility]. Consulted hospice as per patient request 07/11/24: * MRA of brain showing acute infarct in the left frontoparietal lobe in the deep white matter * Left lower extremity weakness * PT and OT ordered * Continue atorvastatin, Plavix * Aspirin currently on hold as she is on Eliquis for DVT prophylaxis * A Neurology following 07/15 * continue Eliquis * neurology following 07/16 * No change 07/20 - Stable. On atorvastatin. Asa/plavix previously held. Apixaban resumed. (2) Seizure: Code(s): R56.9 - Unspecified convulsions Status: Acute Assessment and Plan: 07/11 * New onset * CT of the head was negative * MRI showing acute infarct in the left frontoparietal lobe in deep white matter * EEG findings abnormal read, cannot rule out seizure activity * Continue atorvastatin, Plavix * Will hold baby aspirin considering patient is on Eliquis * Continue Keppra * Continue seizure precautions * Cardiac telemetry stable, we will go ahead and discontinue continuous telemetry * Move out of IMU to regular med surge floor 07/15 * continue neuro checks * continue seizure precautions * continue Keppra, atorvastatin, Plavix * neurology following 07/16 * no change 07/18-07/20 - No new seizure activity. - Cont. keppra at 500mg bid. (3) C. difficile diarrhea: Code(s): A04.72 - Enterocolitis due to Clostridium difficile, not specified as recurrent Status: Acute Assessment and Plan: 07/11/24 * Continue vancomycin pulse dosing * Pulse taper vanc dose as follows: 125 mg orally 4 times daily for 10 to 14 days, then 125 mg orally twice daily for 7 days, then 125 mg orally once daily for 7 days, then 125 mg orally every 2 to 3 days for 2 to 8 weeks 07/15 * no change to current treatment plan 07/18 - Cont. current pulse/taper. Orders are in. 07/20: restarted Oral Vancomycin 07/21: patient completed 2 courses of fidaxomicin and Tapering dose of oral Vancomycin. Consulted GI for fecal microbiota transplantation Tested positive For C diff in November of 2021. Recent stool studies performed 06/21/2024 showed C diff positive. As per documentation patient received Dificid from 06/21-07/08. Started Vancomycin taper 07/08-07/19 and again started on Vancomycin taper on 07/20 [facility] accepted the patient for fecal transplant. Accepting hospitalist is and GI is Consulted hospice (4) Diverticulitis of intestine with perforation without abscess: Qualifiers: Diverticulitis site: large intestine Diverticulitis bleeding: without bleeding Qualified Code(s): K57.20 - Diverticulitis of large intestine with perforation and abscess without bleeding Code(s): K57.80 - Diverticulitis of intestine, part unspecified, with perforation and abscess without bleeding Status: Acute Assessment and Plan: 07/11/24 * Failed Dificid * Continue oral vancomycin 07/15 * continue oral vancomycin 07/16 * No change 07/18 - Stable, completing oral vancomycin pulse/taper. 07/20: completed oral vancomycin Tested positive For C diff in November of 2021. Recent stool studies performed 06/21/2024 showed C diff positive. As per documentation patient received Dificid from 06/21-07/08. Started Vancomycin taper 07/08-07/19 and again started on Vancomycin taper on 07/20 07/29: Patient had multiple episodes of vomiting today and performed abdominal CT shows Diverticulitis of descending colon with fistula to a worsened small abscess. Will notify surgery. (5) Anemia: Qualifiers: Anemia type: due to chronic kidney disease Chronic kidney disease stage: unspecified stage Qualified Code(s): N18.9 - Chronic kidney disease, unspecified; D63.1 - Anemia in chronic kidney disease Code(s): D64.9 - Anemia, unspecified Status: Acute Assessment and Plan: 07/11/24 * Continue to transfuse for hemoglobin less than 7 * Patient receive 1 unit of blood this admission * Currently on Eliquis, Plavix * Will hold aspirin * Continue to trend 07/15 * hemoglobin 7.5 * no change to current treatment plan 07/18 - S/P 2 units prbc overnight with improvement noted on overnight labs. - Resume anticoag. - GI had been consulted, not able to perform colonoscopy currently with diverticulitis, patient had previously refused as well. (6) Acute DVT (deep venous thrombosis): Code(s): I82.409 - Acute embolism and thrombosis of unspecified deep veins of unspecified lower extremity Status: Acute Assessment and Plan: 07/11/24 * Venous Doppler showing extensive right lower extremity DVT * Patient was started on Lovenox and then switched to heparin infusion on 07/09/2024. She later developed dark tarry stools and a drop in her hemoglobin requiring blood transfusion. Heparin drip was placed on hold for 24 hours and then she was restarted on Eliquis 10 mg daily x7 days--standard protocol * General surgery was consulted for IVC filter however she is not a candidate at this time due to her other comorbidities * Continue Eliquis as stated above 07/15 * continue Eliquis 07/16 * No change 07/18 - Eliquis held overnight d/t needing two units prbc. - Stable hgb resuming eliquis. 07/20: Resumed Eliquis. Will monitor H and H (7) Occult blood in stools: Code(s): R19.5 - Other fecal abnormalities Status: Acute Assessment and Plan: 07/11/24 * Patient was occult blood positive on 07/09/2024 * She was given 1 unit of blood * H&H is stable * GI recommending outpatient colonoscopy considering her comorbidities * Recently diagnosed with diverticulitis and C diff colitis S/p 2 units of pRBC Hb stable at 9.0 Eliquis resumes (8) Delirium: Code(s): R41.0 - Disorientation, unspecified Status: Acute Assessment and Plan: 07/15 * more confused today * continue neuro checks * encourage good sleep hygiene 07/16 * continue neuro checks * currently alert and oriented x3 07/18 - Drowsy this am but rousable and and answers questions. Improved later in the am. No focal deficits. - Cont. to monitor closely for developing infection - post influenza pna, UTI, etc. Check urine this am, pending. - Treating for pna. (9) Pneumonia: Code(s): J18.9 - Pneumonia, unspecified organism Status: Acute Assessment and Plan: 07/18 - Slightly less oriented than reported from day prior this morning, improving in the late morning, cxr shows infiltrate. Completed antibiotics (10) Upper respiratory infection: Code(s): J06.9 - Acute upper respiratory infection, unspecified Status: Acute Assessment and Plan: 07/11/24 * Patient reported cold-like symptoms with a nonproductive cough and wheezing * Will check for influenza a and B, RSV, COVID * Start DuoNebs q.6 hour * Will obtain chest x-ray * Incentive spirometry while awake * Pep therapy with cornet flutter valve 07/15 * no change to current treatment plan 07/17 * Chest x-ray ordered * Still coarse rhonchi * Patient finished course Tamiflu for influenza a * Continue incentive spirometry and pep therapy 07/18 - Completed tamiflu, breathing easily. Lungs diminished bilaterally with slightly coarse rales in the right. (11) Urinary retention: Code(s): R33.9 - Retention of urine, unspecified Status: Acute Assessment and Plan: 07/11/24: * Patient had acute urinary retention requiring Fitzpatrick on 07/03/24 * Urology was consulted * Patient failed voiding trial * Patient will keep catheter and repeat voiding trial in 1-2 weeks on an outpatient basis with Urology 07/15 * no change to current treatment plan 07/18 - Catheter in place, consider trial of voiding 07/25 at the two week kelly. (12) Hypokalemia: Code(s): E87.6 - Hypokalemia Status: Acute Assessment and Plan: K 3.7 today monitor (13) Hypothyroidism: Qualifiers: Hypothyroidism type: unspecified Qualified Code(s): E03.9 - Hypothyroidism, unspecified Code(s): E03.9 - Hypothyroidism, unspecified Status: Chronic Assessment and Plan: 07/11/24 * Continue Synthroid 07/15 * no change to current treatment plan 07/18 - Cont. current. (14) Hypertension: Qualifiers: Hypertension type: primary hypertension Qualified Code(s): I10 - Essential (primary) hypertension Code(s): I10 - Essential (primary) hypertension Status: Chronic Assessment and Plan: -Blood pressure ranging 105/ 81 to 146/73 - Continue metoprolol, Benicar and monitor. -no change to current treatment plan -BP generally 130-140, trending higher this am, consider uptitration if trend continues. (15) Dysphagia: Qualifiers: Dysphagia type: esophageal phase Qualified Code(s): R13.19 - Other dysphagia Code(s): R13.10 - Dysphagia, unspecified Status: Acute Assessment and Plan: Last EGD with dilation 05/15/2024 revealed a small hiatal hernia but no findings to explain symptoms. Following her EGD esophageal manometry was recommended to rule out achalasia but this was not arranged. Patient states that for the past 2 months she has been having postprandial nausea and vomiting. She is still having intermittent swallowing difficulty with solids, liquids, and pills. * esophagram ordered, if workup is unremarkable and symptoms persist we can arrange an esophageal manometry or endo flip as outpatient * continue supportive care with antiemetics (16) Hypernatremia: Code(s): E87.0 - Hyperosmolality and hypernatremia Status: Acute Assessment and Plan: Resolved Na 134 JORDAN Cr 1.24 from 0.87 started on IVF monitor Plan Melissa Tom is a 73 year old female hypertension, chronic obstructive pulmonary disease, obstructive sleep apnea intolerant to CPAP, hypothyroidism, gout, anxiety, and Clostridium difficile diarrhea who presented to the emergency department via EMS from [facility] for evaluation of altered mental status. Hospital course is complicated and initially presenting with AMS found to have CVA and seizure with failed o/p management of c.diff/diverticulitis. Complicated hospital course with acute CVA,acute VTE of the lower ext, anemia requiring transfusions, most recent 2 units on 07/17/24. She has developed urinary retention and fitzpatrick has been in place. Completed tamiflu for influenza A yesterday - a focal infiltrate is now noted and patient less oriented. Abx for pna have been started today, 07/18/24. -Tested positive For C diff in November of 2021. Recent stool studies performed 06/21/2024 showed C diff positive. As per documentation patient received Dificid from 06/21-07/08. Started Vancomycin taper 07/08-07/19 and again started on Vancomycin taper on 07/20 1)Patient was previously treated with Dificid which according to records she failed treatment. 2)She is currently on 2 nd time on vancomycin taper 125 mg orally 4 times daily for 10 to 14 days, 125 mg orally twice daily for 7 days, 125 mg orally once daily for 7 days, then 125 mg orally every 2 to 3 days for 2 to 8 weeks. 3) Patient states that she has been experiencing diarrhea for a few years but was worse recently but she was unable to provide any further details regarding bowel frequency. She states that over the past few months she has lost 30 lb without trying, current weight 209 lb. [facility]. Accepting hospitalist is and GI is Hospice to reach out to the son to discuss hospice further Subjective Date/time seen: 07/31/24 14:21 Interval history: Interval history:Melissa Tom is a 73 year old female hypertension, chronic obstructive pulmonary disease, obstructive sleep apnea intolerant to CPAP, hypothyroidism, gout, anxiety, and Clostridium difficile diarrhea who presented to the emergency department via EMS from [facility] for evaluation of altered mental status. Hospital course is complicated and initially presenting with AMS found to have CVA and seizure with failed o/p management of c.diff/diverticulitis. Complicated hospital course with acute CVA,acute VTE of the lower ext, anemia requiring transfusions, most recent 2 units on 07/17/24. She has developed urinary retention and fitzpatrick has been in place. Completed tamiflu for influenza A yesterday - a focal infiltrate is now noted and patient less oriented. Abx for pna have been started today, 07/18/24. -Tested positive For C diff in November of 2021. Recent stool studies performed 06/21/2024 showed C diff positive. As per documentation patient received Dificid from 06/21-07/08. Started Vancomycin taper 07/08-07/19 and again started on Vancomycin taper on 07/20 1)Patient was previously treated with Dificid which according to records she failed treatment. 2)She is currently on 2 nd time on vancomycin taper 125 mg orally 4 times daily for 10 to 14 days, 125 mg orally twice daily for 7 days, 125 mg orally once daily for 7 days, then 125 mg orally every 2 to 3 days for 2 to 8 weeks. 3) Patient states that she has been experiencing diarrhea for a few years but was worse recently but she was unable to provide any further details regarding bowel frequency. She states that over the past few months she has lost 30 lb without trying, current weight 209 lb. [facility] called [facility]. Accepting hospitalist is and GI is . Pending [facility] to [facility]. Consulted hospice as per patient request 07/29: Given K 60 meq. Increased her K from 10meq to 20 meq. Had a very long discussion with the patient. Patient reports she want to leave home. I explained that she was being accepted into [facility], which could fix some of her issues but not everything. She reported being tired of getting all the treatments. Then I explained to her the option of hospice, and she completely understood and wanted to go to hospice. I then brought TOMAS Atkins, to the room, and we both explained the option she has: either going to [facility] or hospice. The patient is AO x3. She insisted on going to the hospice. I will call her son and will try to get hold of him. Consulted hospice. Called her son but he didnt answer his phone.Of note patient had multiple episodes of vomiting today and performed abdominal CT shows Diverticulitis of descending colon with fistula to a worsened small abscess. Will notify surgery. 07/31/2024 Son unable to be reached to discussed hospice Still pending transfer to [facility] Review of Systems Review of Systems: All systems reviewed & are unremarkable except as noted in HPI and below Constitutional: Constitutional: Reports no additional constitutional complaints Eyes: Eyes: Reports no additional eye complaints ENT: Reports system reviewed and no additional complaints, except as documented Cardiovascular: Cardiovascular: Reports no additional cardiovascular complaints Respiratory: Respiratory: Reports no additional respiratory complaints Gastrointestinal: Gastrointestinal: Reports no additional gastrointestinal complaints and Reports diarrhea Genitourinary: Genitourinary: Reports no additional female genitourinary complaints Musculoskeletal: Musculoskeletal: Reports no additional musculoskeletal complaints Integumentary/Breasts: Skin/Breast: Reports system reviewed and no additional complaints, except as docu and Reports as per HPI Neurologic: Reports system reviewed and no additional complaints, except as documented Psychiatric: Psychiatric: Reports no additional psychiatric complaints and Reports as per HPI Endocrine: Endocrine: Reports no additional endocrine complaints and Reports as per HPI Hematologic/Lymphatic: Hematologic/Lymphatic: Reports no additional hematologic/lymphatic complaints and Reports as per HPI Allergic/Immunologic: Allergic/Immunologic: Reports no additional allergic/immunologic complaints and Reports as per HPI Exam Narrative: GENERAL APPEARANCE: Appears to be in no acute distress. HEAD: normocephalic atraumatic EYES: EOMI. ENT: Hearing grossly intact, no nasal discharge NECK: Neck supple, trachea midline. CARDIAC: Normal S1/S2. Rhythm is regular. No murmurs, rubs, or gallops. No cyanosis or pallor. Extremities are warm and well perfused. LUNGS: Clear to auscultation without rales, rhonchi, wheezing. Breath sounds are bilaterally diminished.. Respirations even and unlabored. ABDOMEN: BS positive x 4 quadrants. Soft, nondistended, nontender. No guarding or rebound. MSK: No joint tenderness/swelling, fair strength in all extremities. PERIPHERAL VASCULAR: Peripheral pulses palpable. Normal perfusion, cap refill <2 seconds. No edema. NEURO: Follows commands. No focal deficits.Drowsy this am but oriented to self and situation. SKIN: [place] without lesions or eruptions. PSYCH: Stable, Const: General: cooperative, no acute distress, alert, awake and obese Nutritional Appearance: obese Orientation/consciousness: oriented to person, oriented to place and oriented to time HENMT: Head: normal to inspection and normocephalic Eyes: General: appearance normal, both eyes and all related structures Neck: Neck: normal visual inspection, full ROM and no lymphadenopathy Chest: Chest palpation & inspection: normal inspection of the chest Resp: Effort & Inspection: normal respiratory effort, able to speak in complete sentences and Actively coughing Auscultation: clear to auscultation bilaterally and diminished lung sounds bilateral in the lower lung forbes Cardio: Jugular venous distension: no JVD Palpation: normal PMI Rate: regular rate Rhythm: regular rhythm Heart sounds: S1 normal heart sound present and S2 normal heart sound present GI: Inspection: normal to inspection Auscultation: High-pitched bowel sounds present and Hyperactive bowel sounds present Rectal Exam: other (rectal tube in place, liquid stool noted) Other: rectal tube in place and draining liquid stool Urinary Catheter: Urinary Catheter: patent and draining and urine clear Skin: General skin exam: normal color and no rashes or lesions noted Neuro: General: oriented to person, oriented to place, oriented to time, tone normal and moves all extremities Extrem: General: normal to inspection and full ROM Psych: Appearance: grossly normal Mental Status: mental status grossly normal Speech and movement: Normal speech and movement present Objective Data Vital Signs Vital Signs: Vital Signs - 24 hr 07/30/24 21:11 07/30/24 21:24 07/31/24 05:37 Temperature 97.8 F 98.4 F Pulse Rate 82 82 82 Respiratory Rate 18 20 Blood Pressure 125/68 134/74 Pulse Oximetry 100 96 07/31/24 09:17 Temperature Pulse Rate 82 Respiratory Rate Blood Pressure Pulse Oximetry Intake/Output Intake/Output: Intake & Output 07/28/24 07/29/24 07/30/24 07/31/24 23:59 23:59 23:59 23:59 Intake Total 250 0 1147 1724 Output Total 600 400 500 800 Balance -350 -400 647 924 Meds/Results Medications: Active Medications Generic Name Dose Route Start Last Admin Trade Name Freq PRN Reason Stop Dose Admin Acetaminophen 1,000 mg 07/11/24 16:52 07/27/24 20:26 Acetaminophen 500 Mg Tablet PO 1,000 mg Q6H PRN Administration Mild Pain (1-3) or Fever Albuterol/Ipratropium 3 ml 07/19/24 17:28 Ipratropium 0.5 Mg/Albuterol Sulfate 2.5 Mg Ampul.Neb 3 Ml INHALATION Q6HRT PRN Wheezing Apixaban 5 mg 07/12/24 21:00 07/31/24 09:18 Apixaban 5 Mg Tablet PO 5 mg Q12HR SOLITARIO Administration Atorvastatin Calcium 80 mg 07/04/24 21:00 07/31/24 09:17 Atorvastatin 40 Mg Tablet PO 80 mg DAILY SOLITARIO Administration Calcium Carbonate 500 mg 07/14/24 08:00 07/31/24 09:17 Calcium Carbonate (Oscal) 500 Mg Tablet PO 500 mg BIDWM SOLITARIO Administration Cyanocobalamin 1,000 mcg 07/12/24 09:00 07/31/24 09:17 Cyanocobalamin 1,000 Mcg Tablet PO 1,000 mcg DAILY SOLITARIO Administration Dextrose 12.5 gm 07/20/24 16:44 07/30/24 04:03 Dextrose 50% 25 Gm/50 Ml Syringe IV PUSH 12.5 gm PRN PRN Administration Hypoglycemia Protocol Ferrous Sulfate 325 mg 07/15/24 09:00 07/31/24 09:18 Ferrous Sulfate [address] PO 325 mg DAILY SOLITARIO Administration Folic Acid 1 mg 07/03/24 09:00 07/31/24 09:17 Folic Acid 1 Mg Tablet PO 1 mg DAILY SOLITARIO Administration Glucagon 1 mg 07/20/24 16:44 Glucagon For Inj 1 Mg Vial IM PRN PRN Hypoglycemia Protocol Glucose 15 gm 07/20/24 16:44 07/20/24 17:02 Glucose Oral Gel 15 Gm Of Glucse In 37.5 Gm Tube PO 15 gm PRN PRN Administration Hypoglycemia Protocol Guaifenesin 1,200 mg 07/11/24 21:00 07/31/24 09:17 Guaifenesin 12 Hr 600 Mg Tabcr PO 1,200 mg Q12HR SOLITARIO Administration Dextrose 1,000 mls @ 100 mls/hr 07/20/24 16:44 Dextrose 5% 1,000 Ml IVPB PRN PRN Hypoglycemia Protocol Sodium Chloride 1,000 mls @ 75 mls/hr 07/30/24 13:55 07/31/24 06:03 Normal Saline Iv IV CONT 75 mls/hr .[id number] SOLITARIO Administration Levetiracetam 500 mg 07/03/24 12:30 07/31/24 09:17 Levetiracetam 500 Mg Tablet PO 500 mg Q12HR SOLITARIO Administration Levothyroxine Sodium 75 mcg 07/03/24 06:30 07/31/24 06:03 Levothyroxine Sodium 75 Mcg Tablet PO 75 mcg DAILY@0630 SOLITARIO Administration Lidocaine 1 patch 07/12/24 09:00 07/31/24 09:18 Lidocaine 5% Patch TRANSDERM 1 patch DAILY SOLITARIO Administration Lorazepam 2 mg 07/28/24 17:44 07/28/24 17:57 Lorazepam Inj (*Crx) 2 Mg/Ml Vial IV PUSH 2 mg Q4H PRN Administration Seizures Magnesium Oxide 400 mg 07/06/24 17:00 07/31/24 09:18 Magnesium Oxide 400 Mg Tablet PO 400 mg BID SOLITARIO Administration Metoprolol Tartrate 50 mg 07/03/24 09:00 07/31/24 09:17 Metoprolol Tartrate 50 Mg Tab PO 50 mg Q12HR SOLITARIO Administration Montelukast Sodium 10 mg 07/03/24 00:15 07/30/24 21:12 Montelukast Sodium 10 Mg Tablet PO 10 mg HS SOLITARIO Administration Olmesartan 40 mg 07/03/24 09:00 07/31/24 09:17 Olmesartan Medoxomil 20 Mg Tablet PO 40 mg DAILY SOLITARIO Administration Ondansetron HCl 4 mg 07/28/24 10:52 07/30/24 08:53 Ondansetron Inj 4 Mg/2 Ml Vial IV PUSH 4 mg Q4H PRN Administration Nausea And Vomiting Pantoprazole Sodium 40 mg 07/09/24 12:35 07/31/24 09:18 Pantoprazole Sodium Iv 40 Mg Vial IV PUSH 40 mg Q12HR SOLITARIO Administration Potassium Chloride 20 meq 07/30/24 09:00 07/31/24 09:18 Potassium Chloride 20 Meq Packet (For Liquid) PO 20 meq DAILY SOLITARIO Administration Saccharomyces Boulardii 250 mg 07/22/24 17:00 07/31/24 09:17 Saccharomyces Boulardii 250 Mg Capsule PO 250 mg BID SOLITARIO Administration Sodium Bicarbonate 650 mg 07/16/24 17:00 07/31/24 13:05 Sodium Bicarbonate Tab 650 Mg Tablet PO 650 mg TID SOLITARIO Administration Sodium Chloride 20 ml 07/04/24 16:15 07/24/24 05:49 Central Line Flush IV PUSH 20 ml PRN PRN Administration after blood draws Sodium Chloride 10 ml 07/04/24 16:15 Central Line Flush IV PUSH PRN PRN with TPN bag changes Sodium Chloride 10 ml 07/04/24 22:00 07/31/24 13:05 Central Line Flush IV PUSH 10 ml Q8HR SOLITARIO Administration Trazodone HCl 100 mg 07/11/24 21:00 07/30/24 21:10 Trazodone Hcl 50 Mg Tablet PO 100 mg HS SOLITARIO Administration Radiology Results: ITS Impressions Brain MRI 07/04/24 11:30 IMPRESSION: 1. 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 2. 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 3. Diffuse pachymeningeal enhancement. This finding is most commonly secondary to prior lumbar puncture or spine procedure. ADDENDUM: 07/04/24 1216 The contrast volume was 20 mL MultiHance. Venous Doppler Study 07/05/24 14:17 IMPRESSION: 1. Extensive deep vein thrombosis in right lower limb. I called this result to Elsy Tao. Chest X-Ray 07/17/24 18:28 IMPRESSION: 1. Airspace opacities at left lung base, consistent with atelectasis versus pneumonia. 2. Small left pleural effusion. Modified Barium Swallow 07/24/24 14:55 IMPRESSION: 1. Flash laryngeal penetration. 2. Please refer to the speech therapy report for recommendations. Head CT 07/29/24 13:50 IMPRESSION: 1. Normal aging brain. Abdomen/Pelvis CT 07/29/24 13:52 IMPRESSION: 1. 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 2. Small pleural effusions. Labs Labs: Laboratory Results - last 24 hr 07/30/24 07/30/24 07/31/24 16:36 20:03 06:01 WBC 5.6 RBC 2.87 L Hgb 8.8 L Hct 28.4 L MCV 99.0 MCH 30.7 MCHC 31.0 L RDW 19.6 H Plt Count 158 MPV 10.5 H Immature Gran % (Auto) 0.5 Neut % (Auto) 67.0 Lymph % (Auto) 18.6 Nelson % (Auto) 11.3 H Eos % (Auto) 2.1 Baso % (Auto) 0.5 Lymph # (Auto) 1.04 Nelson # (Auto) 0.6 Eos # (Auto) 0.1 Baso # (Auto) 0.0 Abs Immat Gran (auto) 0.03 Absolute Neuts (auto) 3.7 Absolute Nucleated RBC 0.000 Nucleated RBC % 0.0 Sodium 136 L Potassium 3.4 Chloride 109 H Carbon Dioxide 24 Anion Gap 3 L BUN 15 Creatinine 1.15 H Estim Creat Clear Calc 44 Estimated GFR 46 L Glucose 80 POC Capillary Glucose 81 107 H Calcium 7.3 L Magnesium 1.8 Total Bilirubin 0.5 AST 27 ALT 12 Alkaline Phosphatase 126 Total Protein 4.0 L Albumin 1.7 L 07/31/24 07/31/24 07:39 11:35 WBC RBC Hgb Hct MCV MCH MCHC RDW Plt Count MPV Immature Gran % (Auto) Neut % (Auto) Lymph % (Auto) Nelson % (Auto) Eos % (Auto) Baso % (Auto) Lymph # (Auto) Nelson # (Auto) Eos # (Auto) Baso # (Auto) Abs Immat Gran (auto) Absolute Neuts (auto) Absolute Nucleated RBC Nucleated RBC % Sodium Potassium Chloride Carbon Dioxide Anion Gap BUN Creatinine Estim Creat Clear Calc Estimated GFR Glucose POC Capillary Glucose 78 84 Calcium Magnesium Total Bilirubin AST ALT Alkaline Phosphatase Total Protein Albumin Quality VTE Prophylaxis VTE prophylaxis: pharmacologic ordered
[2024-07-31 17:10] LABS: Glucose Point of Care 71 mg/dl (65-105)
[2024-07-31 20:50] LABS: Glucose Point of Care 73 mg/dl (65-105)
[2024-07-31 21:00] VITALS: BP 102/53; PULSE 79; RESP 16; TEMP 37.1; O2SAT 98
[2024-07-31] MEDS: MONTELUKAST SODIUM 10 MG TABLET PO (21:15)
[2024-07-31] MEDS: traZODone HCL 50 MG TABLET 100 MG PO (21:15)
[2024-07-31 23:26] VITALS: PULSE 79
--- NOTE | 2024-08-01 04:33 | PC.NURSE ---
Pt continues to have loose stools. She is currently a maximove and cannot get to the bathroom or commode. She previously had a fecal management system. It was taken out on the 07/23. Pt's skin on in her linsey area is erythemic despite applications of antifungal cream and powder after cleaning her after each bowel movement. Communicated this to the provider nuclear station operator Suyapa Geronimo. Juanpablo said that since the provider note from 07/23 did not explain why the fecal management system was removed that the idea of reinstatement of the fecal management system should be passed to day shift.
[2024-08-01 06:00] VITALS: BP 120/59; PULSE 80; RESP 16; TEMP 37.1; O2SAT 97
[2024-08-01] MEDS: CENTRAL LINE FLUSH 10 ML IV PUSH ×3 (06:17→22:39)
[2024-08-01] MEDS: LEVOTHYROXINE SODIUM 75 MCG TABLET PO (06:17)
[2024-08-01 07:49] LABS: Glucose Point of Care 78 mg/dl (65-105)
[2024-08-01 09:40] VITALS: PULSE 92
[2024-08-01] MEDS: levETIRAcetam 500 MG TABLET PO ×2 (09:40→21:06)
[2024-08-01] MEDS: METOPROLOL TARTRATE 50 MG TAB PO ×2 (09:40→21:20)
[2024-08-01] MEDS: SODIUM BICARBONATE TAB 650 MG TABLET PO ×3 (09:42→18:13)
[2024-08-01] MEDS: CALCIUM CARBONATE (OSCAL) 500 MG TABLET PO ×2 (09:42→18:13)
[2024-08-01] MEDS: APIXABAN 5 MG TABLET PO ×2 (09:42→21:07)
[2024-08-01] MEDS: MAGNESIUM OXIDE 400 MG TABLET PO ×2 (09:42→18:12)
[2024-08-01] MEDS: OLMESARTAN MEDOXOMIL 20 MG TABLET 40 MG PO (09:43)
[2024-08-01] MEDS: guaiFENesin 12 HR 600 MG TABCR 1200 MG PO ×2 (09:43→21:06)
[2024-08-01] MEDS: ATORVASTATIN 40 MG TABLET 80 MG PO (09:43)
[2024-08-01] MEDS: SACCHAROMYCES BOULARDII 250 MG CAPSULE PO ×2 (09:43→18:13)
[2024-08-01] MEDS: CYANOCOBALAMIN 1,000 MCG TABLET 1000 MCG PO (09:43)
[2024-08-01] MEDS: FERROUS SULFATE 325 MG TABLET DR PO (09:43)
[2024-08-01] MEDS: FOLIC ACID 1 MG TABLET PO (09:43)
[2024-08-01] MEDS: PANTOPRAZOLE SODIUM IV 40 MG VIAL IV PUSH ×2 (09:46→21:07)
[2024-08-01 11:26] LABS: Glucose Point of Care 101 mg/dl (65-105)
[2024-08-01 14:00] VITALS: BP 115/50; PULSE 89; RESP 16; TEMP 36.7; O2SAT 100
--- NOTE | 2024-08-01 14:23 | P.PNIM_ITS ---
Progress Note: A&P Assessment and Plan (1) CVA (cerebral vascular accident): Code(s): I63.9 - Cerebral infarction, unspecified Status: Acute Assessment and Plan: Interval history:Melissa Tom is a 73 year old female hypertension, chronic obstructive pulmonary disease, obstructive sleep apnea intolerant to CPAP, hypothyroidism, gout, anxiety, and Clostridium difficile diarrhea who presented to the emergency department via EMS from [facility] for evaluation of altered mental status. Hospital course is complicated and initially presenting with AMS found to have CVA and seizure with failed o/p management of c.diff/diverticulitis. Complicated hospital course with acute CVA,acute VTE of the lower ext, anemia requiring transfusions, most recent 2 units on 07/17/24. She has developed urinary retention and fitzpatrick has been in place. Completed tamiflu for influenza A yesterday - a focal infiltrate is now noted and patient less oriented. Abx for pna have been started today, 07/18/24. -Tested positive For C diff in November of 2021. Recent stool studies performed showed C diff positive. As per documentation patient received Dificid from 06/21-07/08. Started Vancomycin taper 07/08-07/19 and again started on Vancomycin taper on 07/20 1)Patient was previously treated with Dificid which according to records she failed treatment. 2)She is currently on 2 nd time on vancomycin taper 125 mg orally 4 times daily for 10 to 14 days, 125 mg orally twice daily for 7 days, 125 mg orally once daily for 7 days, then 125 mg orally every 2 to 3 days for 2 to 8 weeks. 3) Patient states that she has been experiencing diarrhea for a few years but was worse recently but she was unable to provide any further details regarding bowel frequency. She states that over the past few months she has lost 30 lb without trying, current weight 209 lb. I called [facility] accepted the patient for fecal transplant. Accepting hospitalist is and GI is . Pending transfer to [facility]. Consulted hospice as per patient request 07/11/24: * MRA of brain showing acute infarct in the left frontoparietal lobe in the deep white matter * Left lower extremity weakness * PT and OT ordered * Continue atorvastatin, Plavix * Aspirin currently on hold as she is on Eliquis for DVT prophylaxis * A Neurology following 07/15 * continue Eliquis * neurology following 07/16 * No change 07/20 - Stable. On atorvastatin. Asa/plavix previously held. Apixaban resumed. (2) Seizure: Code(s): R56.9 - Unspecified convulsions Status: Acute Assessment and Plan: 07/11 * New onset * CT of the head was negative * MRI showing acute infarct in the left frontoparietal lobe in deep white matter * EEG findings abnormal read, cannot rule out seizure activity * Continue atorvastatin, Plavix * Will hold baby aspirin considering patient is on Eliquis * Continue Keppra * Continue seizure precautions * Cardiac telemetry stable, we will go ahead and discontinue continuous telemetry * Move out of IMU to regular med surge floor 07/15 * continue neuro checks * continue seizure precautions * continue Keppra, atorvastatin, Plavix * neurology following 07/16 * no change 07/18-07/20 - No new seizure activity. - Cont. keppra at 500mg bid. (3) C. difficile diarrhea: Code(s): A04.72 - Enterocolitis due to Clostridium difficile, not specified as recurrent Status: Acute Assessment and Plan: 07/11/24 * Continue vancomycin pulse dosing * Pulse taper vanc dose as follows: 125 mg orally 4 times daily for 10 to 14 days, then 125 mg orally twice daily for 7 days, then 125 mg orally once daily for 7 days, then 125 mg orally every 2 to 3 days for 2 to 8 weeks 07/15 * no change to current treatment plan 07/18 - Cont. current pulse/taper. Orders are in. 07/20: restarted Oral Vancomycin 07/21: patient completed 2 courses of fidaxomicin and Tapering dose of oral Vancomycin. Consulted GI for fecal microbiota transplantation Tested positive For C diff in November of 2021. Recent stool studies performed 06/21/2024 showed C diff positive. As per documentation patient received Dificid from 06/21-07/08. Started Vancomycin taper 07/08-07/19 and again started on Vancomycin taper on 07/20 [facility] accepted the patient for fecal transplant. Accepting hospitalist is and GI is Consulted hospice (4) Diverticulitis of intestine with perforation without abscess: Qualifiers: Diverticulitis site: large intestine Diverticulitis bleeding: without bleeding Qualified Code(s): K57.20 - Diverticulitis of large intestine with perforation and abscess without bleeding Code(s): K57.80 - Diverticulitis of intestine, part unspecified, with perforation and abscess without bleeding Status: Acute Assessment and Plan: 07/11/24 * Failed Dificid * Continue oral vancomycin 07/15 * continue oral vancomycin 07/16 * No change 07/18 - Stable, completing oral vancomycin pulse/taper. 07/20: completed oral vancomycin Tested positive For C diff in November of 2021. Recent stool studies performed 06/21/2024 showed C diff positive. As per documentation patient received Dificid from 06/21-07/08. Started Vancomycin taper 07/08-07/19 and again started on Vancomycin taper on 07/20 07/29: Patient had multiple episodes of vomiting today and performed abdominal CT shows Diverticulitis of descending colon with fistula to a worsened small abscess. Will notify surgery. (5) Anemia: Qualifiers: Anemia type: due to chronic kidney disease Chronic kidney disease stage: unspecified stage Qualified Code(s): N18.9 - Chronic kidney disease, unspecified; D63.1 - Anemia in chronic kidney disease Code(s): D64.9 - Anemia, unspecified Status: Acute Assessment and Plan: 07/11/24 * Continue to transfuse for hemoglobin less than 7 * Patient receive 1 unit of blood this admission * Currently on Eliquis, Plavix * Will hold aspirin * Continue to trend 07/15 * hemoglobin 7.5 * no change to current treatment plan 07/18 - S/P 2 units prbc overnight with improvement noted on overnight labs. - Resume anticoag. - GI had been consulted, not able to perform colonoscopy currently with diverticulitis, patient had previously refused as well. (6) Acute DVT (deep venous thrombosis): Code(s): I82.409 - Acute embolism and thrombosis of unspecified deep veins of unspecified lower extremity Status: Acute Assessment and Plan: 07/11/24 * Venous Doppler showing extensive right lower extremity DVT * Patient was started on Lovenox and then switched to heparin infusion on 07/09/2024. She later developed dark tarry stools and a drop in her hemoglobin requiring blood transfusion. Heparin drip was placed on hold for 24 hours and then she was restarted on Eliquis 10 mg daily x7 days--standard protocol * General surgery was consulted for IVC filter however she is not a candidate at this time due to her other comorbidities * Continue Eliquis as stated above 07/15 * continue Eliquis 07/16 * No change 07/18 - Eliquis held overnight d/t needing two units prbc. - Stable hgb resuming eliquis. 07/20: Resumed Eliquis. Will monitor H and H (7) Occult blood in stools: Code(s): R19.5 - Other fecal abnormalities Status: Acute Assessment and Plan: 07/11/24 * Patient was occult blood positive on 07/09/2024 * She was given 1 unit of blood * H&H is stable * GI recommending outpatient colonoscopy considering her comorbidities * Recently diagnosed with diverticulitis and C diff colitis S/p 2 units of pRBC Hb stable at 9.0 Eliquis resumes (8) Delirium: Code(s): R41.0 - Disorientation, unspecified Status: Acute Assessment and Plan: 07/15 * more confused today * continue neuro checks * encourage good sleep hygiene 07/16 * continue neuro checks * currently alert and oriented x3 07/18 - Drowsy this am but rousable and and answers questions. Improved later in the am. No focal deficits. - Cont. to monitor closely for developing infection - post influenza pna, UTI, etc. Check urine this am, pending. - Treating for pna. (9) Pneumonia: Code(s): J18.9 - Pneumonia, unspecified organism Status: Acute Assessment and Plan: 07/18 - Slightly less oriented than reported from day prior this morning, improving in the late morning, cxr shows infiltrate. Completed antibiotics (10) Upper respiratory infection: Code(s): J06.9 - Acute upper respiratory infection, unspecified Status: Acute Assessment and Plan: 07/11/24 * Patient reported cold-like symptoms with a nonproductive cough and wheezing * Will check for influenza a and B, RSV, COVID * Start DuoNebs q.6 hour * Will obtain chest x-ray * Incentive spirometry while awake * Pep therapy with cornet flutter valve 07/15 * no change to current treatment plan 07/17 * Chest x-ray ordered * Still coarse rhonchi * Patient finished course Tamiflu for influenza a * Continue incentive spirometry and pep therapy 07/18 - Completed tamiflu, breathing easily. Lungs diminished bilaterally with slightly coarse rales in the right. (11) Urinary retention: Code(s): R33.9 - Retention of urine, unspecified Status: Acute Assessment and Plan: 07/11/24: * Patient had acute urinary retention requiring Fitzpatrick on 07/03/24 * Urology was consulted * Patient failed voiding trial * Patient will keep catheter and repeat voiding trial in 1-2 weeks on an outpatient basis with Urology 07/15 * no change to current treatment plan 07/18 - Catheter in place, consider trial of voiding 07/25 at the two week kelly. (12) Hypokalemia: Code(s): E87.6 - Hypokalemia Status: Acute Assessment and Plan: K 3.7 today monitor (13) Hypothyroidism: Qualifiers: Hypothyroidism type: unspecified Qualified Code(s): E03.9 - Hypothyroidism, unspecified Code(s): E03.9 - Hypothyroidism, unspecified Status: Chronic Assessment and Plan: 07/11/24 * Continue Synthroid 07/15 * no change to current treatment plan 07/18 - Cont. current. (14) Hypertension: Qualifiers: Hypertension type: primary hypertension Qualified Code(s): I10 - Essential (primary) hypertension Code(s): I10 - Essential (primary) hypertension Status: Chronic Assessment and Plan: -Blood pressure ranging 105/ 81 to 146/73 - Continue metoprolol, Benicar and monitor. -no change to current treatment plan -BP generally 130-140, trending higher this am, consider uptitration if trend continues. (15) Dysphagia: Qualifiers: Dysphagia type: esophageal phase Qualified Code(s): R13.19 - Other dysphagia Code(s): R13.10 - Dysphagia, unspecified Status: Acute Assessment and Plan: Last EGD with dilation 05/15/2024 revealed a small hiatal hernia but no findings to explain symptoms. Following her EGD esophageal manometry was recommended to rule out achalasia but this was not arranged. Patient states that for the past 2 months she has been having postprandial nausea and vomiting. She is still having intermittent swallowing difficulty with solids, liquids, and pills. * esophagram ordered, if workup is unremarkable and symptoms persist we can arrange an esophageal manometry or endo flip as outpatient * continue supportive care with antiemetics (16) Hypernatremia: Code(s): E87.0 - Hyperosmolality and hypernatremia Status: Acute Assessment and Plan: Resolved Na 134 JORDAN Cr 1.24 from 0.87 started on IVF monitor Plan Melissa Tom is a 73 year old female hypertension, chronic obstructive pulmonary disease, obstructive sleep apnea intolerant to CPAP, hypothyroidism, gout, anxiety, and Clostridium difficile diarrhea who presented to the emergency department via EMS from [facility] for evaluation of altered mental status. Hospital course is complicated and initially presenting with AMS found to have CVA and seizure with failed o/p management of c.diff/diverticulitis. Complicated hospital course with acute CVA,acute VTE of the lower ext, anemia requiring transfusions, most recent 2 units on 07/17/24. She has developed urinary retention and fitzpatrick has been in place. Completed tamiflu for influenza A yesterday - a focal infiltrate is now noted and patient less oriented. Abx for pna have been started today, 07/18/24. -Tested positive For C diff in November of 2021. Recent stool studies performed 06/21/2024 showed C diff positive. As per documentation patient received Dificid from 06/21-07/08. Started Vancomycin taper 07/08-07/19 and again started on Vancomycin taper on 07/20 1)Patient was previously treated with Dificid which according to records she failed treatment. 2)She is currently on 2 nd time on vancomycin taper 125 mg orally 4 times daily for 10 to 14 days, 125 mg orally twice daily for 7 days, 125 mg orally once daily for 7 days, then 125 mg orally every 2 to 3 days for 2 to 8 weeks. 3) Patient states that she has been experiencing diarrhea for a few years but was worse recently but she was unable to provide any further details regarding bowel frequency. She states that over the past few months she has lost 30 lb without trying, current weight 209 lb. [facility]. Accepting hospitalist is and GI is Hospice to reach out to the son to discuss hospice further Subjective Date/time seen: 08/01/24 14:23 Interval history: Interval history:Melissa Tom is a 73 year old female hypertension, chronic obstructive pulmonary disease, obstructive sleep apnea intolerant to CPAP, hypothyroidism, gout, anxiety, and Clostridium difficile diarrhea who presented to the emergency department via EMS from [facility] for evaluation of altered mental status. Hospital course is complicated and initially presenting with AMS found to have CVA and seizure with failed o/p management of c.diff/diverticulitis. Complicated hospital course with acute CVA,acute VTE of the lower ext, anemia requiring transfusions, most recent 2 units on 07/17/24. She has developed urinary retention and fitzpatrick has been in place. Completed tamiflu for influenza A yesterday - a focal infiltrate is now noted and patient less oriented. Abx for pna have been started today, 07/18/24. -Tested positive For C diff in November of 2021. Recent stool studies performed 06/21/2024 showed C diff positive. As per documentation patient received Dificid from 06/21-07/08. Started Vancomycin taper 07/08-07/19 and again started on Vancomycin taper on 07/20 1)Patient was previously treated with Dificid which according to records she failed treatment. 2)She is currently on 2 nd time on vancomycin taper 125 mg orally 4 times daily for 10 to 14 days, 125 mg orally twice daily for 7 days, 125 mg orally once daily for 7 days, then 125 mg orally every 2 to 3 days for 2 to 8 weeks. 3) Patient states that she has been experiencing diarrhea for a few years but was worse recently but she was unable to provide any further details regarding bowel frequency. She states that over the past few months she has lost 30 lb without trying, current weight 209 lb. [facility] called [facility]. Accepting hospitalist is and GI is . Pending [facility] to [facility]. Consulted hospice as per patient request 07/29: Given K 60 meq. Increased her K from 10meq to 20 meq. Had a very long discussion with the patient. Patient reports she want to leave home. I explained that she was being accepted into [facility], which could fix some of her issues but not everything. She reported being tired of getting all the treatments. Then I explained to her the option of hospice, and she completely understood and wanted to go to hospice. I then brought TOMAS Atkins, to the room, and we both explained the option she has: either going to [facility] or hospice. The patient is AO x3. She insisted on going to the hospice. I will call her son and will try to get hold of him. Consulted hospice. Called her son but he didnt answer his phone.Of note patient had multiple episodes of vomiting today and performed abdominal CT shows Diverticulitis of descending colon with fistula to a worsened small abscess. Will notify surgery. 07/31/2024 Son unable to be reached to discussed hospice Still pending transfer to [facility] Review of Systems Review of Systems: All systems reviewed & are unremarkable except as noted in HPI and below Constitutional: Constitutional: Reports no additional constitutional complaints Eyes: Eyes: Reports no additional eye complaints ENT: Reports system reviewed and no additional complaints, except as documented Cardiovascular: Cardiovascular: Reports no additional cardiovascular complaints Respiratory: Respiratory: Reports no additional respiratory complaints Gastrointestinal: Gastrointestinal: Reports no additional gastrointestinal complaints and Reports diarrhea Genitourinary: Genitourinary: Reports no additional female genitourinary complaints Musculoskeletal: Musculoskeletal: Reports no additional musculoskeletal complaints Integumentary/Breasts: Skin/Breast: Reports system reviewed and no additional complaints, except as docu and Reports as per HPI Neurologic: Reports system reviewed and no additional complaints, except as documented Psychiatric: Psychiatric: Reports no additional psychiatric complaints and Reports as per HPI Endocrine: Endocrine: Reports no additional endocrine complaints and Reports as per HPI Hematologic/Lymphatic: Hematologic/Lymphatic: Reports no additional hematologic/lymphatic complaints and Reports as per HPI Allergic/Immunologic: Allergic/Immunologic: Reports no additional allergic/immunologic complaints and Reports as per HPI Exam Narrative: GENERAL APPEARANCE: Appears to be in no acute distress. HEAD: normocephalic atraumatic EYES: EOMI. ENT: Hearing grossly intact, no nasal discharge NECK: Neck supple, trachea midline. CARDIAC: Normal S1/S2. Rhythm is regular. No murmurs, rubs, or gallops. No cyanosis or pallor. Extremities are warm and well perfused. LUNGS: Clear to auscultation without rales, rhonchi, wheezing. Breath sounds are bilaterally diminished.. Respirations even and unlabored. ABDOMEN: BS positive x 4 quadrants. Soft, nondistended, nontender. No guarding or rebound. MSK: No joint tenderness/swelling, fair strength in all extremities. PERIPHERAL VASCULAR: Peripheral pulses palpable. Normal perfusion, cap refill <2 seconds. No edema. NEURO: Follows commands. No focal deficits.Drowsy this am but oriented to self and situation. SKIN: [place] without lesions or eruptions. PSYCH: Stable, Const: General: cooperative, no acute distress, alert, awake and obese Nutritional Appearance: obese Orientation/consciousness: oriented to person, oriented to place and oriented to time HENMT: Head: normal to inspection and normocephalic Eyes: General: appearance normal, both eyes and all related structures Neck: Neck: normal visual inspection, full ROM and no lymphadenopathy Chest: Chest palpation & inspection: normal inspection of the chest Resp: Effort & Inspection: normal respiratory effort, able to speak in complete sentences and Actively coughing Auscultation: clear to auscultation bilaterally and diminished lung sounds bilateral in the lower lung forbes Cardio: Jugular venous distension: no JVD Palpation: normal PMI Rate: regular rate Rhythm: regular rhythm Heart sounds: S1 normal heart sound present and S2 normal heart sound present GI: Inspection: normal to inspection Auscultation: High-pitched bowel sounds present and Hyperactive bowel sounds present Rectal Exam: other (rectal tube in place, liquid stool noted) Other: rectal tube in place and draining liquid stool Urinary Catheter: Urinary Catheter: patent and draining and urine clear Skin: General skin exam: normal color and no rashes or lesions noted Neuro: General: oriented to person, oriented to place, oriented to time, tone normal and moves all extremities Extrem: General: normal to inspection and full ROM Psych: Appearance: grossly normal Mental Status: mental status grossly normal Speech and movement: Normal speech and movement present Objective Data Vital Signs Vital Signs: Vital Signs - 24 hr 07/31/24 21:00 07/31/24 23:26 08/01/24 06:00 Temperature 98.8 F 98.7 F Pulse Rate 79 79 80 Respiratory Rate 16 16 Blood Pressure 102/53 L 120/59 L Pulse Oximetry 98 97 Oxygen Delivery 08/01/24 08:00 08/01/24 09:40 Temperature Pulse Rate 92 Respiratory Rate Blood Pressure Pulse Oximetry Oxygen Delivery Room Air Intake/Output Intake/Output: Intake & Output 07/29/24 07/30/24 07/31/24 08/01/24 23:59 23:59 23:59 23:59 Intake Total 0 1147 2464 457 Output Total 750 928 9311 300 Balance -916 184 9878 157 Meds/Results Medications: Active Medications Generic Name Dose Route Start Last Admin Trade Name Freq PRN Reason Stop Dose Admin Acetaminophen 1,000 mg 07/11/24 16:52 07/27/24 20:26 Acetaminophen 500 Mg Tablet PO 1,000 mg Q6H PRN Administration Mild Pain (1-3) or Fever Albuterol/Ipratropium 3 ml 07/19/24 17:28 Ipratropium 0.5 Mg/Albuterol Sulfate 2.5 Mg Ampul.Neb 3 Ml INHALATION Q6HRT PRN Wheezing Apixaban 5 mg 07/12/24 21:00 08/01/24 09:42 Apixaban 5 Mg Tablet PO 5 mg Q12HR SOLITARIO Administration Atorvastatin Calcium 80 mg 07/04/24 21:00 08/01/24 09:43 Atorvastatin 40 Mg Tablet PO 80 mg DAILY SOLITARIO Administration Calcium Carbonate 500 mg 07/14/24 08:00 08/01/24 09:42 Calcium Carbonate (Oscal) 500 Mg Tablet PO 500 mg BIDWM SOLITARIO Administration Cyanocobalamin 1,000 mcg 07/12/24 09:00 08/01/24 09:43 Cyanocobalamin 1,000 Mcg Tablet PO 1,000 mcg DAILY SOLITARIO Administration Dextrose 12.5 gm 07/20/24 16:44 07/30/24 04:03 Dextrose 50% 25 Gm/50 Ml Syringe IV PUSH 12.5 gm PRN PRN Administration Hypoglycemia Protocol Ferrous Sulfate 325 mg 07/15/24 09:00 08/01/24 09:43 Ferrous Sulfate [address] PO 325 mg DAILY SOLITARIO Administration Folic Acid 1 mg 07/03/24 09:00 08/01/24 09:43 Folic Acid 1 Mg Tablet PO 1 mg DAILY SOLITARIO Administration Glucagon 1 mg 07/20/24 16:44 Glucagon For Inj 1 Mg Vial IM PRN PRN Hypoglycemia Protocol Glucose 15 gm 07/20/24 16:44 07/20/24 17:02 Glucose Oral Gel 15 Gm Of Glucse In 37.5 Gm Tube PO 15 gm PRN PRN Administration Hypoglycemia Protocol Guaifenesin 1,200 mg 07/11/24 21:00 08/01/24 09:43 Guaifenesin 12 Hr 600 Mg Tabcr PO 1,200 mg Q12HR SOLITARIO Administration Dextrose 1,000 mls @ 100 mls/hr 07/20/24 16:44 Dextrose 5% 1,000 Ml IVPB PRN PRN Hypoglycemia Protocol Levetiracetam 500 mg 07/03/24 12:30 08/01/24 09:40 Levetiracetam 500 Mg Tablet PO 500 mg Q12HR SOLITARIO Administration Levothyroxine Sodium 75 mcg 07/03/24 06:30 08/01/24 06:17 Levothyroxine Sodium 75 Mcg Tablet PO 75 mcg DAILY@0630 SOLITARIO Administration Lidocaine 1 patch 07/12/24 09:00 08/01/24 09:44 Lidocaine 5% Patch TRANSDERM Not Given DAILY SOLITARIO Lorazepam 2 mg 07/28/24 17:44 07/28/24 17:57 Lorazepam Inj (*Crx) 2 Mg/Ml Vial IV PUSH 2 mg Q4H PRN Administration Seizures Magnesium Oxide 400 mg 07/06/24 17:00 08/01/24 09:42 Magnesium Oxide 400 Mg Tablet PO 400 mg BID SOLITARIO Administration Metoprolol Tartrate 50 mg 07/03/24 09:00 08/01/24 09:40 Metoprolol Tartrate 50 Mg Tab PO 50 mg Q12HR SOLITARIO Administration Miscellaneous Information 0 each 08/01/24 00:01 Please Renew Levetiracetam, 30 Day Auto Stop For Meds XX 08/31/24 00:00 CLARIFY SOLITARIO Montelukast Sodium 10 mg 08/01/24 21:00 Montelukast Sodium 10 Mg Tablet PO HS [facility] Olmesartan 40 mg 07/03/24 09:00 08/01/24 09:43 Olmesartan Medoxomil 20 Mg Tablet PO 40 mg DAILY SOLITARIO Administration Ondansetron HCl 4 mg 07/28/24 10:52 07/30/24 08:53 Ondansetron Inj 4 Mg/2 Ml Vial IV PUSH 4 mg Q4H PRN Administration Nausea And Vomiting Pantoprazole Sodium 40 mg 07/09/24 12:35 08/01/24 09:46 Pantoprazole Sodium Iv 40 Mg Vial IV PUSH 40 mg Q12HR SOLITARIO Administration Potassium Chloride 20 meq 07/30/24 09:00 08/01/24 09:58 Potassium Chloride 20 Meq Packet (For Liquid) PO Not Given DAILY SOLITARIO Saccharomyces Boulardii 250 mg 07/22/24 17:00 08/01/24 09:43 Saccharomyces Boulardii 250 Mg Capsule PO 250 mg BID SOLITARIO Administration Sodium Bicarbonate 650 mg 07/16/24 17:00 08/01/24 13:56 Sodium Bicarbonate Tab 650 Mg Tablet PO 650 mg TID SOLITARIO Administration Sodium Chloride 20 ml 07/04/24 16:15 07/24/24 05:49 Central Line Flush IV PUSH 20 ml PRN PRN Administration after blood draws Sodium Chloride 10 ml 07/04/24 16:15 Central Line Flush IV PUSH PRN PRN with TPN bag changes Sodium Chloride 10 ml 07/04/24 22:00 08/01/24 13:56 Central Line Flush IV PUSH 10 ml Q8HR SOLITARIO Administration Trazodone HCl 100 mg 07/11/24 21:00 07/31/24 21:15 Trazodone Hcl 50 Mg Tablet PO 100 mg HS SOLITAIRO Administration Radiology Results: ITS Impressions Brain MRI 07/04/24 11:30 IMPRESSION: 1. 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 2. 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 3. Diffuse pachymeningeal enhancement. This finding is most commonly secondary to prior lumbar puncture or spine procedure. ADDENDUM: 07/04/24 1216 The contrast volume was 20 mL MultiHance. Venous Doppler Study 07/05/24 14:17 IMPRESSION: 1. Extensive deep vein thrombosis in right lower limb. I called this result to Elsy Tao. Chest X-Ray 07/17/24 18:28 IMPRESSION: 1. Airspace opacities at left lung base, consistent with atelectasis versus pneumonia. 2. Small left pleural effusion. Modified Barium Swallow 07/24/24 14:55 IMPRESSION: 1. Flash laryngeal penetration. 2. Please refer to the speech therapy report for recommendations. Head CT 07/29/24 13:50 IMPRESSION: 1. Normal aging brain. Abdomen/Pelvis CT 07/29/24 13:52 IMPRESSION: 1. 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 2. Small pleural effusions. Labs Labs: Laboratory Results - last 24 hr 07/31/24 07/31/24 08/01/24 17:04 20:13 07:37 POC Capillary Glucose 71 73 78 08/01/24 11:24 POC Capillary Glucose 101 Quality VTE Prophylaxis VTE prophylaxis: pharmacologic ordered
[2024-08-01 16:33] LABS: Glucose Point of Care 94 mg/dl (65-105)
[2024-08-01 20:40] LABS: Glucose Point of Care 93 mg/dl (65-105)
[2024-08-01] MEDS: traZODone HCL 50 MG TABLET 100 MG PO (21:06)
[2024-08-01] MEDS: MONTELUKAST SODIUM 10 MG TABLET PO (21:07)
[2024-08-01 21:20] VITALS: PULSE 90
[2024-08-01 21:23] VITALS: BP 110/59; PULSE 90; RESP 18; TEMP 36.6; O2SAT 100
[2024-08-02 05:50] VITALS: BP 124/57; PULSE 86; RESP 18; TEMP 36.9; O2SAT 100
[2024-08-02] MEDS: CENTRAL LINE FLUSH 10 ML IV PUSH ×3 (06:59→22:20)
--- NOTE | 2024-08-02 07:46 | PC.NURSE ---
Pt only had 100ml output of urine overnight. Suyapa Geronimo the [employer] provider was verbally notified at 0636. I also told Juanpablo there are not any labs ordered on the pt this morning. Juanpablo said she would look at the pt's chart. I passed on this information the Pretty RN verbally in report.
[2024-08-02 07:57] LABS: Glucose Point of Care 77 mg/dl (65-105)
[2024-08-02] MEDS: CYANOCOBALAMIN 1,000 MCG TABLET 1000 MCG PO (09:52)
[2024-08-02] MEDS: guaiFENesin 12 HR 600 MG TABCR 1200 MG PO ×2 (09:52→22:20)
[2024-08-02] MEDS: SACCHAROMYCES BOULARDII 250 MG CAPSULE PO ×2 (09:53→17:45)
[2024-08-02] MEDS: APIXABAN 5 MG TABLET PO ×2 (09:53→22:19)
[2024-08-02] MEDS: SODIUM BICARBONATE TAB 650 MG TABLET PO ×3 (09:53→17:45)
[2024-08-02] MEDS: FERROUS SULFATE 325 MG TABLET DR PO (09:53)
[2024-08-02] MEDS: MAGNESIUM OXIDE 400 MG TABLET PO ×2 (09:53→17:45)
[2024-08-02] MEDS: ATORVASTATIN 40 MG TABLET 80 MG PO (09:53)
[2024-08-02] MEDS: levETIRAcetam 500 MG TABLET PO ×2 (09:53→22:19)
[2024-08-02] MEDS: CALCIUM CARBONATE (OSCAL) 500 MG TABLET PO ×2 (09:54→17:45)
[2024-08-02] MEDS: PANTOPRAZOLE SODIUM IV 40 MG VIAL IV PUSH ×2 (09:54→22:19)
[2024-08-02 12:00] LABS: Glucose Point of Care 77 mg/dl (65-105)
--- NOTE | 2024-08-02 12:41 | P.PNIM_ITS ---
Progress Note: A&P Assessment and Plan (1) CVA (cerebral vascular accident): Code(s): I63.9 - Cerebral infarction, unspecified Status: Acute Assessment and Plan: Interval history:Melissa Tom is a 73 year old female hypertension, chronic obstructive pulmonary disease, obstructive sleep apnea intolerant to CPAP, hypothyroidism, gout, anxiety, and Clostridium difficile diarrhea who presented to the emergency department via EMS from [facility] for evaluation of altered mental status. Hospital course is complicated and initially presenting with AMS found to have CVA and seizure with failed o/p management of c.diff/diverticulitis. Complicated hospital course with acute CVA,acute VTE of the lower ext, anemia requiring transfusions, most recent 2 units on 07/17/24. She has developed urinary retention and fitzpatrick has been in place. Completed tamiflu for influenza A yesterday - a focal infiltrate is now noted and patient less oriented. Abx for pna have been started today, 07/18/24. -Tested positive For C diff in November of 2021. Recent stool studies performed showed C diff positive. As per documentation patient received Dificid from 06/21-07/08. Started Vancomycin taper 07/08-07/19 and again started on Vancomycin taper on 07/20 1)Patient was previously treated with Dificid which according to records she failed treatment. 2)She is currently on 2 nd time on vancomycin taper 125 mg orally 4 times daily for 10 to 14 days, 125 mg orally twice daily for 7 days, 125 mg orally once daily for 7 days, then 125 mg orally every 2 to 3 days for 2 to 8 weeks. 3) Patient states that she has been experiencing diarrhea for a few years but was worse recently but she was unable to provide any further details regarding bowel frequency. She states that over the past few months she has lost 30 lb without trying, current weight 209 lb. I called [facility] accepted the patient for fecal transplant. Accepting hospitalist is and GI is . Pending transfer to [facility]. Consulted hospice as per patient request 07/11/24: * MRA of brain showing acute infarct in the left frontoparietal lobe in the deep white matter * Left lower extremity weakness * PT and OT ordered * Continue atorvastatin, Plavix * Aspirin currently on hold as she is on Eliquis for DVT prophylaxis * A Neurology following 07/15 * continue Eliquis * neurology following 07/16 * No change 07/20 - Stable. On atorvastatin. Asa/plavix previously held. Apixaban resumed. (2) Seizure: Code(s): R56.9 - Unspecified convulsions Status: Acute Assessment and Plan: 07/11 * New onset * CT of the head was negative * MRI showing acute infarct in the left frontoparietal lobe in deep white matter * EEG findings abnormal read, cannot rule out seizure activity * Continue atorvastatin, Plavix * Will hold baby aspirin considering patient is on Eliquis * Continue Keppra * Continue seizure precautions * Cardiac telemetry stable, we will go ahead and discontinue continuous telemetry * Move out of IMU to regular med surge floor 07/15 * continue neuro checks * continue seizure precautions * continue Keppra, atorvastatin, Plavix * neurology following 07/16 * no change 07/18-07/20 - No new seizure activity. - Cont. keppra at 500mg bid. (3) C. difficile diarrhea: Code(s): A04.72 - Enterocolitis due to Clostridium difficile, not specified as recurrent Status: Acute Assessment and Plan: 07/11/24 * Continue vancomycin pulse dosing * Pulse taper vanc dose as follows: 125 mg orally 4 times daily for 10 to 14 days, then 125 mg orally twice daily for 7 days, then 125 mg orally once daily for 7 days, then 125 mg orally every 2 to 3 days for 2 to 8 weeks 07/15 * no change to current treatment plan 07/18 - Cont. current pulse/taper. Orders are in. 07/20: restarted Oral Vancomycin 07/21: patient completed 2 courses of fidaxomicin and Tapering dose of oral Vancomycin. Consulted GI for fecal microbiota transplantation Tested positive For C diff in November of 2021. Recent stool studies performed 06/21/2024 showed C diff positive. As per documentation patient received Dificid from 06/21-07/08. Started Vancomycin taper 07/08-07/19 and again started on Vancomycin taper on 07/20 [facility] accepted the patient for fecal transplant. Accepting hospitalist is and GI is Consulted hospice (4) Diverticulitis of intestine with perforation without abscess: Qualifiers: Diverticulitis site: large intestine Diverticulitis bleeding: without bleeding Qualified Code(s): K57.20 - Diverticulitis of large intestine with perforation and abscess without bleeding Code(s): K57.80 - Diverticulitis of intestine, part unspecified, with perforation and abscess without bleeding Status: Acute Assessment and Plan: 07/11/24 * Failed Dificid * Continue oral vancomycin 07/15 * continue oral vancomycin 07/16 * No change 07/18 - Stable, completing oral vancomycin pulse/taper. 07/20: completed oral vancomycin Tested positive For C diff in November of 2021. Recent stool studies performed 06/21/2024 showed C diff positive. As per documentation patient received Dificid from 06/21-07/08. Started Vancomycin taper 07/08-07/19 and again started on Vancomycin taper on 07/20 07/29: Patient had multiple episodes of vomiting today and performed abdominal CT shows Diverticulitis of descending colon with fistula to a worsened small abscess. Will notify surgery. (5) Anemia: Qualifiers: Anemia type: due to chronic kidney disease Chronic kidney disease stage: unspecified stage Qualified Code(s): N18.9 - Chronic kidney disease, unspecified; D63.1 - Anemia in chronic kidney disease Code(s): D64.9 - Anemia, unspecified Status: Acute Assessment and Plan: 07/11/24 * Continue to transfuse for hemoglobin less than 7 * Patient receive 1 unit of blood this admission * Currently on Eliquis, Plavix * Will hold aspirin * Continue to trend 07/15 * hemoglobin 7.5 * no change to current treatment plan 07/18 - S/P 2 units prbc overnight with improvement noted on overnight labs. - Resume anticoag. - GI had been consulted, not able to perform colonoscopy currently with diverticulitis, patient had previously refused as well. (6) Acute DVT (deep venous thrombosis): Code(s): I82.409 - Acute embolism and thrombosis of unspecified deep veins of unspecified lower extremity Status: Acute Assessment and Plan: 07/11/24 * Venous Doppler showing extensive right lower extremity DVT * Patient was started on Lovenox and then switched to heparin infusion on 07/09/2024. She later developed dark tarry stools and a drop in her hemoglobin requiring blood transfusion. Heparin drip was placed on hold for 24 hours and then she was restarted on Eliquis 10 mg daily x7 days--standard protocol * General surgery was consulted for IVC filter however she is not a candidate at this time due to her other comorbidities * Continue Eliquis as stated above 07/15 * continue Eliquis 07/16 * No change 07/18 - Eliquis held overnight d/t needing two units prbc. - Stable hgb resuming eliquis. 07/20: Resumed Eliquis. Will monitor H and H (7) Occult blood in stools: Code(s): R19.5 - Other fecal abnormalities Status: Acute Assessment and Plan: 07/11/24 * Patient was occult blood positive on 07/09/2024 * She was given 1 unit of blood * H&H is stable * GI recommending outpatient colonoscopy considering her comorbidities * Recently diagnosed with diverticulitis and C diff colitis S/p 2 units of pRBC Hb stable at 9.0 Eliquis resumes (8) Delirium: Code(s): R41.0 - Disorientation, unspecified Status: Acute Assessment and Plan: 07/15 * more confused today * continue neuro checks * encourage good sleep hygiene 07/16 * continue neuro checks * currently alert and oriented x3 07/18 - Drowsy this am but rousable and and answers questions. Improved later in the am. No focal deficits. - Cont. to monitor closely for developing infection - post influenza pna, UTI, etc. Check urine this am, pending. - Treating for pna. (9) Pneumonia: Code(s): J18.9 - Pneumonia, unspecified organism Status: Acute Assessment and Plan: 07/18 - Slightly less oriented than reported from day prior this morning, improving in the late morning, cxr shows infiltrate. Completed antibiotics (10) Upper respiratory infection: Code(s): J06.9 - Acute upper respiratory infection, unspecified Status: Acute Assessment and Plan: 07/11/24 * Patient reported cold-like symptoms with a nonproductive cough and wheezing * Will check for influenza a and B, RSV, COVID * Start DuoNebs q.6 hour * Will obtain chest x-ray * Incentive spirometry while awake * Pep therapy with cornet flutter valve 07/15 * no change to current treatment plan 07/17 * Chest x-ray ordered * Still coarse rhonchi * Patient finished course Tamiflu for influenza a * Continue incentive spirometry and pep therapy 07/18 - Completed tamiflu, breathing easily. Lungs diminished bilaterally with slightly coarse rales in the right. (11) Urinary retention: Code(s): R33.9 - Retention of urine, unspecified Status: Acute Assessment and Plan: 07/11/24: * Patient had acute urinary retention requiring Fitzpatrick on 07/03/24 * Urology was consulted * Patient failed voiding trial * Patient will keep catheter and repeat voiding trial in 1-2 weeks on an outpatient basis with Urology 07/15 * no change to current treatment plan 07/18 - Catheter in place, consider trial of voiding 07/25 at the two week kelly. (12) Hypokalemia: Code(s): E87.6 - Hypokalemia Status: Acute Assessment and Plan: K 3.7 today monitor (13) Hypothyroidism: Qualifiers: Hypothyroidism type: unspecified Qualified Code(s): E03.9 - Hypothyroidism, unspecified Code(s): E03.9 - Hypothyroidism, unspecified Status: Chronic Assessment and Plan: 07/11/24 * Continue Synthroid 07/15 * no change to current treatment plan 07/18 - Cont. current. (14) Hypertension: Qualifiers: Hypertension type: primary hypertension Qualified Code(s): I10 - Essential (primary) hypertension Code(s): I10 - Essential (primary) hypertension Status: Chronic Assessment and Plan: -Blood pressure ranging 105/ 81 to 146/73 - Continue metoprolol, Benicar and monitor. -no change to current treatment plan -BP generally 130-140, trending higher this am, consider uptitration if trend continues. (15) Dysphagia: Qualifiers: Dysphagia type: esophageal phase Qualified Code(s): R13.19 - Other dysphagia Code(s): R13.10 - Dysphagia, unspecified Status: Acute Assessment and Plan: Last EGD with dilation 05/15/2024 revealed a small hiatal hernia but no findings to explain symptoms. Following her EGD esophageal manometry was recommended to rule out achalasia but this was not arranged. Patient states that for the past 2 months she has been having postprandial nausea and vomiting. She is still having intermittent swallowing difficulty with solids, liquids, and pills. * esophagram ordered, if workup is unremarkable and symptoms persist we can arrange an esophageal manometry or endo flip as outpatient * continue supportive care with antiemetics (16) Hypernatremia: Code(s): E87.0 - Hyperosmolality and hypernatremia Status: Acute Assessment and Plan: Resolved Na 134 JORDAN Cr 1.24 from 0.87 started on IVF monitor Plan Melissa Tom is a 73 year old female hypertension, chronic obstructive pulmonary disease, obstructive sleep apnea intolerant to CPAP, hypothyroidism, gout, anxiety, and Clostridium difficile diarrhea who presented to the emergency department via EMS from [facility] for evaluation of altered mental status. Hospital course is complicated and initially presenting with AMS found to have CVA and seizure with failed o/p management of c.diff/diverticulitis. Complicated hospital course with acute CVA,acute VTE of the lower ext, anemia requiring transfusions, most recent 2 units on 07/17/24. She has developed urinary retention and fitzpatrick has been in place. Completed tamiflu for influenza A yesterday - a focal infiltrate is now noted and patient less oriented. Abx for pna have been started today, 07/18/24. -Tested positive For C diff in November of 2021. Recent stool studies performed 06/21/2024 showed C diff positive. As per documentation patient received Dificid from 06/21-07/08. Started Vancomycin taper 07/08-07/19 and again started on Vancomycin taper on 07/20 1)Patient was previously treated with Dificid which according to records she failed treatment. 2)She is currently on 2 nd time on vancomycin taper 125 mg orally 4 times daily for 10 to 14 days, 125 mg orally twice daily for 7 days, 125 mg orally once daily for 7 days, then 125 mg orally every 2 to 3 days for 2 to 8 weeks. 3) Patient states that she has been experiencing diarrhea for a few years but was worse recently but she was unable to provide any further details regarding bowel frequency. She states that over the past few months she has lost 30 lb without trying, current weight 209 lb. [facility]. Accepting hospitalist is and GI is Hospice to reach out to the son to discuss hospice further Subjective Date/time seen: 08/02/24 12:41 Interval history: Interval history:Melissa Tom is a 73 year old female hypertension, chronic obstructive pulmonary disease, obstructive sleep apnea intolerant to CPAP, hypothyroidism, gout, anxiety, and Clostridium difficile diarrhea who presented to the emergency department via EMS from [facility] for evaluation of altered mental status. Hospital course is complicated and initially presenting with AMS found to have CVA and seizure with failed o/p management of c.diff/diverticulitis. Complicated hospital course with acute CVA,acute VTE of the lower ext, anemia requiring transfusions, most recent 2 units on 07/17/24. She has developed urinary retention and fitzpatrick has been in place. Completed tamiflu for influenza A yesterday - a focal infiltrate is now noted and patient less oriented. Abx for pna have been started today, 07/18/24. -Tested positive For C diff in November of 2021. Recent stool studies performed 06/21/2024 showed C diff positive. As per documentation patient received Dificid from 06/21-07/08. Started Vancomycin taper 07/08-07/19 and again started on Vancomycin taper on 07/20 1)Patient was previously treated with Dificid which according to records she failed treatment. 2)She is currently on 2 nd time on vancomycin taper 125 mg orally 4 times daily for 10 to 14 days, 125 mg orally twice daily for 7 days, 125 mg orally once daily for 7 days, then 125 mg orally every 2 to 3 days for 2 to 8 weeks. 3) Patient states that she has been experiencing diarrhea for a few years but was worse recently but she was unable to provide any further details regarding bowel frequency. She states that over the past few months she has lost 30 lb without trying, current weight 209 lb. [facility] called [facility]. Accepting hospitalist is and GI is . Pending [facility] to [facility]. Consulted hospice as per patient request 07/29: Given K 60 meq. Increased her K from 10meq to 20 meq. Had a very long discussion with the patient. Patient reports she want to leave home. I explained that she was being accepted into [facility], which could fix some of her issues but not everything. She reported being tired of getting all the treatments. Then I explained to her the option of hospice, and she completely understood and wanted to go to hospice. I then brought TOMAS Atkins, to the room, and we both explained the option she has: either going to [facility] or hospice. The patient is AO x3. She insisted on going to the hospice. I will call her son and will try to get hold of him. Consulted hospice. Called her son but he didnt answer his phone.Of note patient had multiple episodes of vomiting today and performed abdominal CT shows Diverticulitis of descending colon with fistula to a worsened small abscess. Will notify surgery. 07/31/2024 Son unable to be reached to discussed hospice Still pending transfer to [facility] Review of Systems Review of Systems: All systems reviewed & are unremarkable except as noted in HPI and below Constitutional: Constitutional: Reports no additional constitutional complaints Eyes: Eyes: Reports no additional eye complaints ENT: Reports system reviewed and no additional complaints, except as documented Cardiovascular: Cardiovascular: Reports no additional cardiovascular complaints Respiratory: Respiratory: Reports no additional respiratory complaints Gastrointestinal: Gastrointestinal: Reports no additional gastrointestinal complaints and Reports diarrhea Genitourinary: Genitourinary: Reports no additional female genitourinary complaints Musculoskeletal: Musculoskeletal: Reports no additional musculoskeletal complaints Integumentary/Breasts: Skin/Breast: Reports system reviewed and no additional complaints, except as docu and Reports as per HPI Neurologic: Reports system reviewed and no additional complaints, except as documented Psychiatric: Psychiatric: Reports no additional psychiatric complaints and Reports as per HPI Endocrine: Endocrine: Reports no additional endocrine complaints and Reports as per HPI Hematologic/Lymphatic: Hematologic/Lymphatic: Reports no additional hematologic/lymphatic complaints and Reports as per HPI Allergic/Immunologic: Allergic/Immunologic: Reports no additional allergic/immunologic complaints and Reports as per HPI Exam Narrative: GENERAL APPEARANCE: Appears to be in no acute distress. HEAD: normocephalic atraumatic EYES: EOMI. ENT: Hearing grossly intact, no nasal discharge NECK: Neck supple, trachea midline. CARDIAC: Normal S1/S2. Rhythm is regular. No murmurs, rubs, or gallops. No cyanosis or pallor. Extremities are warm and well perfused. LUNGS: Clear to auscultation without rales, rhonchi, wheezing. Breath sounds are bilaterally diminished.. Respirations even and unlabored. ABDOMEN: BS positive x 4 quadrants. Soft, nondistended, nontender. No guarding or rebound. MSK: No joint tenderness/swelling, fair strength in all extremities. PERIPHERAL VASCULAR: Peripheral pulses palpable. Normal perfusion, cap refill <2 seconds. No edema. NEURO: Follows commands. No focal deficits.Drowsy this am but oriented to self and situation. SKIN: [place] without lesions or eruptions. PSYCH: Stable, Const: General: cooperative, no acute distress, alert, awake and obese Nutritional Appearance: obese Orientation/consciousness: oriented to person, oriented to place and oriented to time HENMT: Head: normal to inspection and normocephalic Eyes: General: appearance normal, both eyes and all related structures Neck: Neck: normal visual inspection, full ROM and no lymphadenopathy Chest: Chest palpation & inspection: normal inspection of the chest Resp: Effort & Inspection: normal respiratory effort, able to speak in complete sentences and Actively coughing Auscultation: clear to auscultation bilaterally and diminished lung sounds bilateral in the lower lung forbes Cardio: Jugular venous distension: no JVD Palpation: normal PMI Rate: regular rate Rhythm: regular rhythm Heart sounds: S1 normal heart sound present and S2 normal heart sound present GI: Inspection: normal to inspection Auscultation: High-pitched bowel sounds present and Hyperactive bowel sounds present Rectal Exam: other (rectal tube in place, liquid stool noted) Other: rectal tube in place and draining liquid stool Urinary Catheter: Urinary Catheter: patent and draining and urine clear Skin: General skin exam: normal color and no rashes or lesions noted Neuro: General: oriented to person, oriented to place, oriented to time, tone normal and moves all extremities Extrem: General: normal to inspection and full ROM Psych: Appearance: grossly normal Mental Status: mental status grossly normal Speech and movement: Normal speech and movement present Objective Data Vital Signs Vital Signs: Vital Signs - 24 hr 08/01/24 14:00 08/01/24 21:20 08/01/24 21:23 Temperature 98.0 F 97.9 F Pulse Rate 89 90 90 Respiratory Rate 16 18 Blood Pressure 115/50 L 110/59 L Pulse Oximetry 100 100 Oxygen Delivery 08/02/24 05:50 08/02/24 10:00 Temperature 98.4 F Pulse Rate 86 Respiratory Rate 18 Blood Pressure 124/57 L Pulse Oximetry 100 Oxygen Delivery Room Air Intake/Output Intake/Output: Intake & Output 07/30/24 07/31/24 08/01/24 08/02/24 23:59 23:59 23:59 23:59 Intake Total 1149 2974 419 690 Output Total 500 1300 550 100 Balance 647 1164 -93 590 Meds/Results Medications: Active Medications Generic Name Dose Route Start Last Admin Trade Name Freq PRN Reason Stop Dose Admin Acetaminophen 1,000 mg 07/11/24 16:52 07/27/24 20:26 Acetaminophen 500 Mg Tablet PO 1,000 mg Q6H PRN Administration Mild Pain (1-3) or Fever Albuterol/Ipratropium 3 ml 07/19/24 17:28 Ipratropium 0.5 Mg/Albuterol Sulfate 2.5 Mg Ampul.Neb 3 Ml INHALATION Q6HRT PRN Wheezing Apixaban 5 mg 07/12/24 21:00 08/02/24 09:53 Apixaban 5 Mg Tablet PO 5 mg Q12HR SOLITARIO Administration Atorvastatin Calcium 80 mg 07/04/24 21:00 08/02/24 09:53 Atorvastatin 40 Mg Tablet PO 80 mg DAILY SOLITARIO Administration Calcium Carbonate 500 mg 07/14/24 08:00 08/02/24 09:54 Calcium Carbonate (Oscal) 500 Mg Tablet PO 500 mg BIDWM SOLITARIO Administration Cyanocobalamin 1,000 mcg 07/12/24 09:00 08/02/24 09:52 Cyanocobalamin 1,000 Mcg Tablet PO 1,000 mcg DAILY SOLITARIO Administration Dextrose 12.5 gm 07/20/24 16:44 07/30/24 04:03 Dextrose 50% 25 Gm/50 Ml Syringe IV PUSH 12.5 gm PRN PRN Administration Hypoglycemia Protocol Ferrous Sulfate 325 mg 07/15/24 09:00 08/02/24 09:53 Ferrous Sulfate [address] PO 325 mg DAILY SOLITARIO Administration Glucagon 1 mg 07/20/24 16:44 Glucagon For Inj 1 Mg Vial IM PRN PRN Hypoglycemia Protocol Glucose 15 gm 07/20/24 16:44 07/20/24 17:02 Glucose Oral Gel 15 Gm Of Glucse In 37.5 Gm Tube PO 15 gm PRN PRN Administration Hypoglycemia Protocol Guaifenesin 1,200 mg 07/11/24 21:00 08/02/24 09:52 Guaifenesin 12 Hr 600 Mg Tabcr PO 1,200 mg Q12HR SOLITARIO Administration Dextrose 1,000 mls @ 100 mls/hr 07/20/24 16:44 Dextrose 5% 1,000 Ml IVPB PRN PRN Hypoglycemia Protocol Levetiracetam 500 mg 07/03/24 12:30 08/02/24 09:53 Levetiracetam 500 Mg Tablet PO 500 mg Q12HR SOLITARIO Administration Levothyroxine Sodium 75 mcg 08/03/24 06:30 Levothyroxine Sodium 75 Mcg Tablet PO DAILY@0630 [facility] Lidocaine 1 patch 07/12/24 09:00 08/02/24 09:54 Lidocaine 5% Patch TRANSDERM Not Given DAILY SOLITARIO Lorazepam 2 mg 07/28/24 17:44 07/28/24 17:57 Lorazepam Inj (*Crx) 2 Mg/Ml Vial IV PUSH 2 mg Q4H PRN Administration Seizures Magnesium Oxide 400 mg 07/06/24 17:00 08/02/24 09:53 Magnesium Oxide 400 Mg Tablet PO 400 mg BID SOLITARIO Administration Miscellaneous Information 0 each 08/01/24 00:01 Please Renew Levetiracetam, 30 Day Auto Stop For Meds XX 08/31/24 00:00 CLARIFY SOLITARIO Montelukast Sodium 10 mg 08/01/24 21:00 08/01/24 21:07 Montelukast Sodium 10 Mg Tablet PO 10 mg HS SOLITARIO Administration Ondansetron HCl 4 mg 07/28/24 10:52 07/30/24 08:53 Ondansetron Inj 4 Mg/2 Ml Vial IV PUSH 4 mg Q4H PRN Administration Nausea And Vomiting Pantoprazole Sodium 40 mg 07/09/24 12:35 08/02/24 09:54 Pantoprazole Sodium Iv 40 Mg Vial IV PUSH 40 mg Q12HR SOLITARIO Administration Potassium Chloride 20 meq 07/30/24 09:00 08/02/24 10:02 Potassium Chloride 20 Meq Packet (For Liquid) PO Not Given DAILY SOLITARIO Saccharomyces Boulardii 250 mg 07/22/24 17:00 08/02/24 09:53 Saccharomyces Boulardii 250 Mg Capsule PO 250 mg BID SOLITARIO Administration Sodium Bicarbonate 650 mg 07/16/24 17:00 08/02/24 09:53 Sodium Bicarbonate Tab 650 Mg Tablet PO 650 mg TID SOLITARIO Administration Sodium Chloride 20 ml 07/04/24 16:15 07/24/24 05:49 Central Line Flush IV PUSH 20 ml PRN PRN Administration after blood draws Sodium Chloride 10 ml 07/04/24 16:15 Central Line Flush IV PUSH PRN PRN with TPN bag changes Sodium Chloride 10 ml 07/04/24 22:00 08/02/24 06:59 Central Line Flush IV PUSH 10 ml Q8HR SOLITARIO Administration Trazodone HCl 100 mg 07/11/24 21:00 08/01/24 21:06 Trazodone Hcl 50 Mg Tablet PO 100 mg HS SOLITARIO Administration Radiology Results: ITS Impressions Brain MRI 07/04/24 11:30 IMPRESSION: 1. 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 2. Subcortical increased T2-weighted signal intensity in the parietal and occi pital lobes, most likely posterior reversible encephalopathy syndrome (PRES). 3. Diffuse pachymeningeal enhancement. This finding is most commonly secondary to prior lumbar puncture or spine procedure. ADDENDUM: 07/04/24 1216 The contrast volume was 20 mL MultiHance. Venous Doppler Study 07/05/24 14:17 IMPRESSION: 1. Extensive deep vein thrombosis in right lower limb. I called this result to Elsy Tao. Chest X-Ray 07/17/24 18:28 IMPRESSION: 1. Airspace opacities at left lung base, consistent with atelectasis versus pneumonia. 2. Small left pleural effusion. Modified Barium Swallow 07/24/24 14:55 IMPRESSION: 1. Flash laryngeal penetration. 2. Please refer to the speech therapy report for recommendations. Head CT 07/29/24 13:50 IMPRESSION: 1. Normal aging brain. Abdomen/Pelvis CT 07/29/24 13:52 IMPRESSION: 1. 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 2. Small pleural effusions. Labs Labs: Laboratory Results - last 24 hr 08/01/24 08/01/24 08/02/24 16:30 20:34 07:55 POC Capillary Glucose 94 93 77 08/02/24 11:37 POC Capillary Glucose 77 Quality VTE Prophylaxis VTE prophylaxis: pharmacologic ordered
[2024-08-02 13:38] LABS: Hematocrit 33.6 % (37.0-47.0); Hemoglobin 10.3 g/dL (12.0-15.0); Mean Corpuscular HGB Conc 30.7 g/dl (32-36); Mean Corpuscular Hemoglobin 30.5 pg (26-34); Mean Corpuscular Volume 99.4 fl (80-100); Mean Platelet Volume 10.8 fl (7.4-10.4); Platelet Count Result 235 k/mm3 (150-375); Red Blood Count 3.38 M/mm3 (4.2-5.4); Red Cell Distribution Width 20.2 % (11.5-14.5); White Blood Count 12.2 K/mm3 (4.5-10.0)
[2024-08-02 13:51] LABS: Alanine Aminotransferase 17 U/L (6-35); Albumin Level 2.3 g/dL (3.5-5.1); Alkaline Phosphatase 154 U/L (38-126); Anion Gap 6 mmol/L (4-12); Aspartate Amino Transferase 25 U/L (14-36); Bilirubin,Total 0.8 mg/dL (0.2-1.3); Blood Urea Nitrogen 16 mg/dL (7-17); Carbon Dioxide 22 mmol/L (22-30); Chloride 109 mmol/L (98-107); Estimated CRCL calculation 49 ml/min; Estimated Glomerular Filt Rate 54; Glucose 106 mg/dL (65-110); Potassium 3.7 mmol/L (3.4-5.0); Sodium 137 mmol/L (137-145)
[2024-08-02] MEDS: ALBUMIN HUMAN 25% 25 GM/100 ML 100 ML IVPB (14:36)
[2024-08-02 14:46] VITALS: BP 130/64; PULSE 114; RESP 17; TEMP 36.7; O2SAT 100
[2024-08-02 17:08] LABS: Glucose Point of Care 85 mg/dl (65-105)
[2024-08-02 21:34] LABS: Glucose Point of Care 107 mg/dl (65-105)
[2024-08-02 21:38] VITALS: BP 131/65; PULSE 108; RESP 18; TEMP 36.6; O2SAT 100
[2024-08-02] MEDS: MONTELUKAST SODIUM 10 MG TABLET PO (22:19)
[2024-08-02] MEDS: traZODone HCL 50 MG TABLET 100 MG PO (22:19)
[2024-08-03 06:00] VITALS: BP 134/70; PULSE 102; RESP 18; TEMP 36.8; O2SAT 99
[2024-08-03] MEDS: CENTRAL LINE FLUSH 10 ML IV PUSH ×2 (06:02→14:52)
[2024-08-03] MEDS: LEVOTHYROXINE SODIUM 75 MCG TABLET PO (06:02)
[2024-08-03 06:39] LABS: Basophils Percent Auto 0.3 % (0.2-1.2); Eosinophils Absolute Auto 0.1 K/mm3 (0-0.3); Eosinophils Percent Auto 0.6 % (0-4.4); Hematocrit 27.5 % (37.0-47.0); Hemoglobin 8.8 g/dL (12.0-15.0); Immature Granulocyte Absolute 0.03 K/mm3 (0.00-0.031); Immature Granulocyte Percent A 0.4 % (0-0.5); Lymphocytes Absolute Auto 1.17 K/mm3 (0.9-3.2); Mean Corpuscular Hemoglobin 31.3 pg (26-34); Mean Corpuscular Volume 97.9 fl (80-100); Mean Platelet Volume 10.4 fl (7.4-10.4); Monocytes Absolute Auto 0.8 K/mm3 (0.1-0.6); Monocytes Percent Auto 10.4 % (2.6-8.5); Neutrophils Absolute Auto 5.7 K/mm3 (1.3-6.7); Neutrophils Percent Auto 73.3 % (45.5-73.1); Platelet Count Result 176 k/mm3 (150-375); Red Blood Count 2.81 M/mm3 (4.2-5.4); Red Cell Distribution Width 20.1 % (11.5-14.5); White Blood Count 7.8 K/mm3 (4.5-10.0)
[2024-08-03 07:02] LABS: Lactic Acid Reflex 0.7 mmol/L (0.7-2.0)
[2024-08-03 07:05] LABS: Alanine Aminotransferase 12 U/L (6-35); Albumin Level 2.3 g/dL (3.5-5.1); Alkaline Phosphatase 118 U/L (38-126); Anion Gap 6 mmol/L (4-12); Aspartate Amino Transferase 21 U/L (14-36); Bilirubin,Total 0.7 mg/dL (0.2-1.3); Blood Urea Nitrogen 15 mg/dL (7-17); Carbon Dioxide 25 mmol/L (22-30); Chloride 107 mmol/L (98-107); Estimated CRCL calculation 49 ml/min; Estimated Glomerular Filt Rate 54; Glucose 85 mg/dL (65-110); Magnesium 1.7 mg/dL (1.6-2.3); Potassium 3.5 mmol/L (3.4-5.0); Sodium 138 mmol/L (137-145)
[2024-08-03 08:09] LABS: Glucose Point of Care 84 mg/dl (65-105)
[2024-08-03] MEDS: ALBUMIN HUMAN 25% 25 GM/100 ML 100 ML IVPB (09:54)
[2024-08-03] MEDS: FERROUS SULFATE 325 MG TABLET DR PO (09:55)
[2024-08-03] MEDS: CALCIUM CARBONATE (OSCAL) 500 MG TABLET PO ×2 (09:55→18:28)
[2024-08-03] MEDS: CYANOCOBALAMIN 1,000 MCG TABLET 1000 MCG PO (09:55)
[2024-08-03] MEDS: SODIUM BICARBONATE TAB 650 MG TABLET PO ×3 (09:55→18:28)
[2024-08-03] MEDS: levETIRAcetam 500 MG TABLET PO (09:55)
[2024-08-03] MEDS: PANTOPRAZOLE SODIUM IV 40 MG VIAL IV PUSH (09:55)
[2024-08-03] MEDS: SACCHAROMYCES BOULARDII 250 MG CAPSULE PO ×2 (09:55→18:28)
[2024-08-03] MEDS: ATORVASTATIN 40 MG TABLET 80 MG PO (09:55)
[2024-08-03] MEDS: APIXABAN 5 MG TABLET PO (09:55)
[2024-08-03] MEDS: MAGNESIUM OXIDE 400 MG TABLET PO ×2 (09:56→18:28)
[2024-08-03] MEDS: guaiFENesin 12 HR 600 MG TABCR 1200 MG PO (09:56)
--- NOTE | 2024-08-03 10:51 | P.PNIM_ITS ---
Progress Note: A&P Assessment and Plan (1) CVA (cerebral vascular accident): Code(s): I63.9 - Cerebral infarction, unspecified Status: Acute Assessment and Plan: Interval history:Melissa Tom is a 73 year old female hypertension, chronic obstructive pulmonary disease, obstructive sleep apnea intolerant to CPAP, hypothyroidism, gout, anxiety, and Clostridium difficile diarrhea who presented to the emergency department via EMS from [facility] [place] for evaluation of altered mental status. Hospital course is complicated and initially presenting with AMS found to have CVA and seizure with failed o/p management of c.diff/diverticulitis. Complicated hospital course with acute CVA,acute VTE of the lower ext, anemia requiring transfusions, most recent 2 units on 07/17/24. She has developed urinary retention and fitzpatrick has been in place. Completed tamiflu for influenza A yesterday - a focal infiltrate is now noted and patient less oriented. Abx for pna have been started today, 07/18/24. -Tested positive For C diff in November of 2021. Recent stool studies performed showed C diff positive. As per documentation patient received Dificid from 06/21-07/08. Started Vancomycin taper 07/08-07/19 and again started on Vancomycin taper on 07/20 1)Patient was previously treated with Dificid which according to records she failed treatment. 2)She is currently on 2 nd time on vancomycin taper 125 mg orally 4 times daily for 10 to 14 days, 125 mg orally twice daily for 7 days, 125 mg orally once daily for 7 days, then 125 mg orally every 2 to 3 days for 2 to 8 weeks. 3) Patient states that she has been experiencing diarrhea for a few years but was worse recently but she was unable to provide any further details regarding bowel frequency. She states that over the past few months she has lost 30 lb without trying, current weight 209 lb. I called [facility] accepted the patient for fecal transplant. Accepting hospitalist is and GI is . Pending transfer to [facility]. Consulted hospice as per patient request 07/11/24: * MRA of brain showing acute infarct in the left frontoparietal lobe in the deep white matter * Left lower extremity weakness * PT and OT ordered * Continue atorvastatin, Plavix * Aspirin currently on hold as she is on Eliquis for DVT prophylaxis * A Neurology following 07/15 * continue Eliquis * neurology following 07/16 * No change 07/20 - Stable. On atorvastatin. Asa/plavix previously held. Apixaban resumed. (2) Seizure: Code(s): R56.9 - Unspecified convulsions Status: Acute Assessment and Plan: 07/11 * New onset * CT of the head was negative * MRI showing acute infarct in the left frontoparietal lobe in deep white matter * EEG findings abnormal read, cannot rule out seizure activity * Continue atorvastatin, Plavix * Will hold baby aspirin considering patient is on Eliquis * Continue Keppra * Continue seizure precautions * Cardiac telemetry stable, we will go ahead and discontinue continuous telemetry * Move out of IMU to regular med surge floor 07/15 * continue neuro checks * continue seizure precautions * continue Keppra, atorvastatin, Plavix * neurology following 07/16 * no change 07/18-07/20 - No new seizure activity. - Cont. keppra at 500mg bid. (3) C. difficile diarrhea: Code(s): A04.72 - Enterocolitis due to Clostridium difficile, not specified as recurrent Status: Acute Assessment and Plan: 07/11/24 * Continue vancomycin pulse dosing * Pulse taper vanc dose as follows: 125 mg orally 4 times daily for 10 to 14 days, then 125 mg orally twice daily for 7 days, then 125 mg orally once daily for 7 days, then 125 mg orally every 2 to 3 days for 2 to 8 weeks 07/15 * no change to current treatment plan 07/18 - Cont. current pulse/taper. Orders are in. 07/20: restarted Oral Vancomycin 07/21: patient completed 2 courses of fidaxomicin and Tapering dose of oral Vancomycin. Consulted GI for fecal microbiota transplantation Tested positive For C diff in November of 2021. Recent stool studies performed 06/21/2024 showed C diff positive. As per documentation patient received Dificid from 06/21-07/08. Started Vancomycin taper 07/08-07/19 and again started on Vancomycin taper on 07/20 [facility] accepted the patient for fecal transplant. Accepting hospitalist is and GI is Consulted hospice (4) Diverticulitis of intestine with perforation without abscess: Qualifiers: Diverticulitis site: large intestine Diverticulitis bleeding: without bleeding Qualified Code(s): K57.20 - Diverticulitis of large intestine with perforation and abscess without bleeding Code(s): K57.80 - Diverticulitis of intestine, part unspecified, with perforation and abscess without bleeding Status: Acute Assessment and Plan: 07/11/24 * Failed Dificid * Continue oral vancomycin 07/15 * continue oral vancomycin 07/16 * No change 07/18 - Stable, completing oral vancomycin pulse/taper. 07/20: completed oral vancomycin Tested positive For C diff in November of 2021. Recent stool studies performed 06/21/2024 showed C diff positive. As per documentation patient received Dificid from 06/21-07/08. Started Vancomycin taper 07/08-07/19 and again started on Vancomycin taper on 07/20 Surgery evaluated and noted that patient is not a candidate for surgery given active C diff, recommended continuing transfer to [facility] for feval transplant and to avoid antibiotics. (5) Anemia: Qualifiers: Anemia type: due to chronic kidney disease Chronic kidney disease stage: unspecified stage Qualified Code(s): N18.9 - Chronic kidney disease, unspecified; D63.1 - Anemia in chronic kidney disease Code(s): D64.9 - Anemia, unspecified Status: Acute Assessment and Plan: 07/11/24 * Continue to transfuse for hemoglobin less than 7 * Patient receive 1 unit of blood this admission * Currently on Eliquis, Plavix * Will hold aspirin * Continue to trend 07/15 * hemoglobin 7.5 * no change to current treatment plan 07/18 - S/P 2 units prbc overnight with improvement noted on overnight labs. - Resume anticoag. - GI had been consulted, not able to perform colonoscopy currently with diverticulitis, patient had previously refused as well. (6) Acute DVT (deep venous thrombosis): Code(s): I82.409 - Acute embolism and thrombosis of unspecified deep veins of unspecified lower extremity Status: Acute Assessment and Plan: 07/11/24 * Venous Doppler showing extensive right lower extremity DVT * Patient was started on Lovenox and then switched to heparin infusion on 07/09/2024. She later developed dark tarry stools and a drop in her hemoglobin requiring blood transfusion. Heparin drip was placed on hold for 24 hours and then she was restarted on Eliquis 10 mg daily x7 days--standard protocol * General surgery was consulted for IVC filter however she is not a candidate at this time due to her other comorbidities * Continue Eliquis as stated above 07/15 * continue Eliquis 07/16 * No change 07/18 - Eliquis held overnight d/t needing two units prbc. - Stable hgb resuming eliquis. 07/20: Resumed Eliquis. Will monitor H and H (7) Occult blood in stools: Code(s): R19.5 - Other fecal abnormalities Status: Acute Assessment and Plan: 07/11/24 * Patient was occult blood positive on 07/09/2024 * She was given 1 unit of blood * H&H is stable * GI recommending outpatient colonoscopy considering her comorbidities * Recently diagnosed with diverticulitis and C diff colitis S/p 2 units of pRBC Hb stable at 9.0 Eliquis resumes (8) Delirium: Code(s): R41.0 - Disorientation, unspecified Status: Acute Assessment and Plan: 07/15 * more confused today * continue neuro checks * encourage good sleep hygiene 07/16 * continue neuro checks * currently alert and oriented x3 07/18 - Drowsy this am but rousable and and answers questions. Improved later in the am. No focal deficits. - Cont. to monitor closely for developing infection - post influenza pna, UTI, etc. Check urine this am, pending. - Treating for pna. (9) Pneumonia: Code(s): J18.9 - Pneumonia, unspecified organism Status: Acute Assessment and Plan: 07/18 - Slightly less oriented than reported from day prior this morning, improving in the late morning, cxr shows infiltrate. Completed antibiotics (10) Upper respiratory infection: Code(s): J06.9 - Acute upper respiratory infection, unspecified Status: Acute Assessment and Plan: 07/11/24 * Patient reported cold-like symptoms with a nonproductive cough and wheezing * Will check for influenza a and B, RSV, COVID * Start DuoNebs q.6 hour * Will obtain chest x-ray * Incentive spirometry while awake * Pep therapy with cornet flutter valve 07/15 * no change to current treatment plan 07/17 * Chest x-ray ordered * Still coarse rhonchi * Patient finished course Tamiflu for influenza a * Continue incentive spirometry and pep therapy 07/18 - Completed tamiflu, breathing easily. Lungs diminished bilaterally with slightly coarse rales in the right. (11) Urinary retention: Code(s): R33.9 - Retention of urine, unspecified Status: Acute Assessment and Plan: 07/11/24: * Patient had acute urinary retention requiring Fitzpatrick on 07/03/24 * Urology was consulted * Patient failed voiding trial * Patient will keep catheter and repeat voiding trial in 1-2 weeks on an outpatient basis with Urology 07/15 * no change to current treatment plan 07/18 - Catheter in place, consider trial of voiding 07/25 at the two week kelly. (12) Hypokalemia: Code(s): E87.6 - Hypokalemia Status: Acute Assessment and Plan: K 3.7 today monitor (13) Hypothyroidism: Qualifiers: Hypothyroidism type: unspecified Qualified Code(s): E03.9 - Hypothyroidism, unspecified Code(s): E03.9 - Hypothyroidism, unspecified Status: Chronic Assessment and Plan: 07/11/24 * Continue Synthroid 07/15 * no change to current treatment plan 07/18 - Cont. current. (14) Hypertension: Qualifiers: Hypertension type: primary hypertension Qualified Code(s): I10 - Essential (primary) hypertension Code(s): I10 - Essential (primary) hypertension Status: Chronic Assessment and Plan: -Blood pressure ranging 105/ 81 to 146/73 - Continue metoprolol, Benicar and monitor. -no change to current treatment plan -BP generally 130-140, trending higher this am, consider uptitration if trend continues. (15) Dysphagia: Qualifiers: Dysphagia type: esophageal phase Qualified Code(s): R13.19 - Other dysphagia Code(s): R13.10 - Dysphagia, unspecified Status: Acute Assessment and Plan: Last EGD with dilation 05/15/2024 revealed a small hiatal hernia but no findings to explain symptoms. Following her EGD esophageal manometry was recommended to rule out achalasia but this was not arranged. Patient states that for the past 2 months she has been having postprandial nausea and vomiting. She is still having intermittent swallowing difficulty with solids, liquids, and pills. * esophagram ordered, if workup is unremarkable and symptoms persist we can arrange an esophageal manometry or endo flip as outpatient * continue supportive care with antiemetics (16) Hypernatremia: Code(s): E87.0 - Hyperosmolality and hypernatremia Status: Acute Assessment and Plan: Resolved Na 134 JORDAN Cr 1.24 from 0.87 started on IVF monitor Plan Melissa Tom is a 73 year old female hypertension, chronic obstructive pulmonary disease, obstructive sleep apnea intolerant to CPAP, hypothyroidism, gout, anxiety, and Clostridium difficile diarrhea who presented to the emergency department via EMS from [facility] [place] for evaluation of altered mental status. Hospital course is complicated and initially presenting with AMS found to have CVA and seizure with failed o/p management of c.diff/diverticulitis. Complica stefania hospital course with acute CVA,acute VTE of the lower ext, anemia requiring transfusions, most recent 2 units on 07/17/24. She has developed urinary retention and fitzpatrick has been in place. Completed tamiflu for influenza A yesterday - a focal infiltrate is now noted and patient less oriented. Abx for pna have been started today, 07/18/24. -Tested positive For C diff in November of 2021. Recent stool studies performed 06/21/2024 showed C diff positive. As per documentation patient received Dificid from 06/21-07/08. Started Vancomycin taper 07/08-07/19 and again started on Vancomycin taper on 07/20 1)Patient was previously treated with Dificid which according to records she failed treatment. 2)She is currently on 2 nd time on vancomycin taper 125 mg orally 4 times daily for 10 to 14 days, 125 mg orally twice daily for 7 days, 125 mg orally once daily for 7 days, then 125 mg orally every 2 to 3 days for 2 to 8 weeks. 3) Patient states that she has been experiencing diarrhea for a few years but was worse recently but she was unable to provide any further details regarding bowel frequency. She states that over the past few months she has lost 30 lb without trying, current weight 209 lb. [facility] accepted the patient for fecal transplant. Accepting hospitalist is and GI is has not been able to reach her son for goals of care discussion including hospice however i spoke with her niece this morning and she stated she will try to reach the son and discuss with broader members of the family. Subjective Date/time seen: 08/03/24 10:51 Interval history: Interval history:Melissa Tom is a 73 year old female hypertension, chronic obstructive pulmonary disease, obstructive sleep apnea intolerant to CPAP, hypothyroidism, gout, anxiety, and Clostridium difficile diarrhea who presented to the emergency department via EMS from [facility] [place] for evaluation of altered mental status. Hospital course is complicated and initially presenting with AMS found to have CVA and seizure with failed o/p management of c.diff/diverticulitis. Complicated hospital course with acute CVA,acute VTE of the lower ext, anemia requiring transfusions, most recent 2 units on 07/17/24. She has developed urinary retention and fitzpatrick has been in place. Completed tamiflu for influenza A yesterday - a focal infiltrate is now noted and patient less oriented. Abx for pna have been started today, 07/18/24. -Tested positive For C diff in November of 2021. Recent stool studies performed 06/21/2024 showed C diff positive. As per documentation patient received Dificid from 06/21-07/08. Started Vancomycin taper 07/08-07/19 and again started on Vancomycin taper on 07/20 1)Patient was previously treated with Dificid which according to records she failed treatment. 2)She is currently on 2 nd time on vancomycin taper 125 mg orally 4 times daily for 10 to 14 days, 125 mg orally twice daily for 7 days, 125 mg orally once daily for 7 days, then 125 mg orally every 2 to 3 days for 2 to 8 weeks. 3) Patient states that she has been experiencing diarrhea for a few years but was worse recently but she was unable to provide any further details regarding bowel frequency. She states that over the past few months she has lost 30 lb without trying, current weight 209 lb. I called [facility] accepted the patient for fecal transplant. Accepting hospitalist is and GI is . Pending transfer to [facility]. Consulted hospice as per patient request 07/29: Given K 60 meq. Increased her K from 10meq to 20 meq. Had a very long discussion with the patient. Patient reports she want to leave home. I explained that she was being accepted into [facility], which could fix some of her issues but not everything. She reported being tired of getting all the treatments. Then I explained to her the option of hospice, and she completely understood and wanted to go to hospice. I then brought TOMAS Atkins, to the room, and we both explained the option she has: either going to [facility] or hospice. The patient is AO x3. She insisted on going to the hospice. I will call her son and will try to get hold of him. Consulted hospice. Called her son but he didnt answ er his phone.Of note patient had multiple episodes of vomiting today and performed abdominal CT shows Diverticulitis of descending colon with fistula to a worsened small abscess. Will notify surgery. 07/31/2024 Son unable to be reached to discussed hospice Still pending transfer to [facility] 08/03/24 Unable to reach the son so far, i discussed with haleigh however who notd she will reach out to the family and make meaningful efforts to reach the her son. Review of Systems Review of Systems: All systems reviewed & are unremarkable except as noted in HPI and below Constitutional: Constitutional: Reports no additional constitutional complaints Eyes: Eyes: Reports no additional eye complaints ENT: Reports system reviewed and no additional complaints, except as documented Cardiovascular: Cardiovascular: Reports no additional cardiovascular complaints Respiratory: Respiratory: Reports no additional respiratory complaints Gastrointestinal: Gastrointestinal: Reports no additional gastrointestinal complaints and Reports diarrhea Genitourinary: Genitourinary: Reports no additional female genitourinary complaints Musculoskeletal: Musculoskeletal: Reports no additional musculoskeletal complaints Integumentary/Breasts: Skin/Breast: Reports system reviewed and no additional complaints, except as docu and Reports as per HPI Neurologic: Reports system reviewed and no additional complaints, except as documented Psychiatric: Psychiatric: Reports no additional psychiatric complaints and Reports as per HPI Endocrine: Endocrine: Reports no additional endocrine complaints and Reports as per HPI Hematologic/Lymphatic: Hematologic/Lymphatic: Reports no additional hematologic/lymphatic complaints and Reports as per HPI Allergic/Immunologic: Allergic/Immunologic: Reports no additional allergic/immunologic complaints and Reports as per HPI Exam Narrative: GENERAL APPEARANCE: Appears to be in no acute distress. HEAD: normocephalic atraumatic EYES: EOMI. ENT: Hearing grossly intact, no nasal discharge NECK: Neck supple, trachea midline. CARDIAC: Normal S1/S2. Rhythm is regular. No murmurs, rubs, or gallops. No cyanosis or pallor. Extremities are warm and well perfused. LUNGS: Clear to auscultation without rales, rhonchi, wheezing. Breath sounds are bilaterally diminished.. Respirations even and unlabored. ABDOMEN: BS positive x 4 quadrants. Soft, nondistended, nontender. No guarding or rebound. MSK: No joint tenderness/swelling, fair strength in all extremities. PERIPHERAL VASCULAR: Peripheral pulses palpable. Normal perfusion, cap refill <2 seconds. No edema. NEURO: Follows commands. No focal deficits.Drowsy this am but oriented to self and situation. SKIN: [place] without lesions or eruptions. PSYCH: Stable, Const: General: cooperative, no acute distress, alert, awake and obese Nutritional Appearance: obese Orientation/consciousness: oriented to person, oriented to place and oriented to time HENMT: Head: normal to inspection and normocephalic Eyes: General: appearance normal, both eyes and all related structures Neck: Neck: normal visual inspection, full ROM and no lymphadenopathy Chest: Chest palpation & inspection: normal inspection of the chest Resp: Effort & Inspection: normal respiratory effort, able to speak in complete sentences and Actively coughing Auscultation: clear to auscultation bilaterally and diminished lung sounds bilateral in the lower lung forbes Cardio: Jugular venous distension: no JVD Palpation: normal PMI Rate: regular rate Rhythm: regular rhythm Heart sounds: S1 normal heart sound present and S2 normal heart sound present GI: Inspection: normal to inspection Auscultation: High-pitched bowel sounds present and Hyperactive bowel sounds present Rectal Exam: other (rectal tube in place, liquid stool noted) Other: rectal tube in place and draining liquid stool Urinary Catheter: Urinary Catheter: patent and draining and urine clear Skin: General skin exam: normal color and no rashes or lesions noted Neuro: General: oriented to person, oriented to place, oriented to time, tone normal and moves all extremities Extrem: General: normal to inspection and full ROM Psych: Appearance: grossly normal Mental Status: mental status grossly normal Speech and movement: Normal speech and movement present Objective Data Vital Signs Vital Signs: Vital Signs - 24 hr 08/02/24 14:46 08/02/24 20:00 08/02/24 21:38 Temperature 98.1 F 97.8 F Pulse Rate 114 H 108 H Respiratory Rate 17 18 Blood Pressure 130/64 131/65 Pulse Oximetry 100 100 Oxygen Delivery Room Air 08/03/24 06:00 Temperature 98.2 F Pulse Rate 102 H Respiratory Rate 18 Blood Pressure 134/70 Pulse Oximetry 99 Oxygen Delivery Intake/Output Intake/Output: Intake & Output 07/31/24 08/01/24 08/02/2408/25 23:59 23:59 23:59 23:59 Intake Total 5951 228 930 380 Output Total 1300 550 250 200 Balance 1164 -93 777 180 Meds/Results Medications: Active Medications Generic Name Dose Route Start Last Admin Trade Name Freq PRN Reason Stop Dose Admin Acetaminophen 1,000 mg 07/11/24 16:52 07/27/24 20:26 Acetaminophen 500 Mg Tablet PO 1,000 mg Q6H PRN Administration Mild Pain (1-3) or Fever Albuterol/Ipratropium 3 ml 07/19/24 17:28 Ipratropium 0.5 Mg/Albuterol Sulfate 2.5 Mg Ampul.Neb 3 Ml INHALATION Q6HRT PRN Wheezing Apixaban 5 mg 07/12/24 21:00 08/03/24 09:55 Apixaban 5 Mg Tablet PO 5 mg Q12HR SOLITARIO Administration Atorvastatin Calcium 80 mg 07/04/24 21:00 08/03/24 09:55 Atorvastatin 40 Mg Tablet PO 80 mg DAILY SOLITARIO Administration Calcium Carbonate 500 mg 07/14/24 08:00 08/03/24 09:55 Calcium Carbonate (Oscal) 500 Mg Tablet PO 500 mg BIDWM SOLITARIO Administration Cyanocobalamin 1,000 mcg 07/12/24 09:00 08/03/24 09:55 Cyanocobalamin 1,000 Mcg Tablet PO 1,000 mcg DAILY SOLITARIO Administration Dextrose 12.5 gm 07/20/24 16:44 07/30/24 04:03 Dextrose 50% 25 Gm/50 Ml Syringe IV PUSH 12.5 gm PRN PRN Administration Hypoglycemia Protocol Ferrous Sulfate 325 mg 07/15/24 09:00 08/03/24 09:55 Ferrous Sulfate [address] PO 325 mg DAILY SOLITARIO Administration Glucagon 1 mg 07/20/24 16:44 Glucagon For Inj 1 Mg Vial IM PRN PRN Hypoglycemia Protocol Glucose 15 gm 07/20/24 16:44 07/20/24 17:02 Glucose Oral Gel 15 Gm Of Glucse In 37.5 Gm Tube PO 15 gm PRN PRN Administration Hypoglycemia Protocol Guaifenesin 1,200 mg 07/11/24 21:00 08/03/24 09:56 Guaifenesin 12 Hr 600 Mg Tabcr PO 1,200 mg Q12HR SOLITARIO Administration Dextrose 1,000 mls @ 100 mls/hr 07/20/24 16:44 Dextrose 5% 1,000 Ml IVPB PRN PRN Hypoglycemia Protocol Levetiracetam 500 mg 07/03/24 12:30 08/03/24 09:55 Levetiracetam 500 Mg Tablet PO 500 mg Q12HR SOLITARIO Administration Levothyroxine Sodium 75 mcg 08/03/24 06:30 08/03/24 06:02 Levothyroxine Sodium 75 Mcg Tablet PO 75 mcg DAILY@0630 SOLITARIO Administration Lidocaine 1 patch 07/12/24 09:00 08/03/24 09:55 Lidocaine 5% Patch TRANSDERM Not Given DAILY SOLITARIO Lorazepam 2 mg 07/28/24 17:44 07/28/24 17:57 Lorazepam Inj (*Crx) 2 Mg/Ml Vial IV PUSH 2 mg Q4H PRN Administration Seizures Magnesium Oxide 400 mg 07/06/24 17:00 08/03/24 09:56 Magnesium Oxide 400 Mg Tablet PO 400 mg BID SOLITARIO Administration Miscellaneous Information 0 each 08/01/24 00:01 Please Renew Levetiracetam, 30 Day Auto Stop For Meds XX 08/31/24 00:00 CLARIFY SOLITARIO Miscellaneous Information 0 each 08/02/24 22:25 Scheduled Central Line Ns Flush Is Set To . Please Renew. XX 09/01/24 22:24 CLARIFY SOLITARIO Montelukast Sodium 10 mg 08/01/24 21:00 08/02/24 22:19 Montelukast Sodium 10 Mg Tablet PO 10 mg HS SLOITARIO Administration Ondansetron HCl 4 mg 07/28/24 10:52 07/30/24 08:53 Ondansetron Inj 4 Mg/2 Ml Vial IV PUSH 4 mg Q4H PRN Administration Nausea And Vomiting Pantoprazole Sodium 40 mg 07/09/24 12:35 08/03/24 09:55 Pantoprazole Sodium Iv 40 Mg Vial IV PUSH 40 mg Q12HR SOLITARIO Administration Potassium Chloride 20 meq 07/30/24 09:00 08/03/24 09:58 Potassium Chloride 20 Meq Packet (For Liquid) PO Not Given DAILY SOLITARIO Saccharomyces Boulardii 250 mg 07/22/24 17:00 08/03/24 09:55 Saccharomyces Boulardii 250 Mg Capsule PO 250 mg BID SOLITARIO Administration Sodium Bicarbonate 650 mg 07/16/24 17:00 08/03/24 09:55 Sodium Bicarbonate Tab 650 Mg Tablet PO 650 mg TID SOLITARIO Administration Sodium Chloride 20 ml 07/04/24 16:15 07/24/24 05:49 Central Line Flush IV PUSH 20 ml PRN PRN Administration after blood draws Sodium Chloride 10 ml 07/04/24 16:15 Central Line Flush IV PUSH PRN PRN with TPN bag changes Sodium Chloride 10 ml 07/04/24 22:00 08/03/24 06:02 Central Line Flush IV PUSH 10 ml Q8HR SOLITARIO Administration Trazodone HCl 100 mg 07/11/24 21:00 08/02/24 22:19 Trazodone Hcl 50 Mg Tablet PO 100 mg HS SOLITARIO Administration Radiology Results: ITS Impressions Brain MRI 07/04/24 11:30 IMPRESSION: 1. 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 2. 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 3. Diffuse pachymeningeal enhancement. This finding is most commonly secondary to prior lumbar puncture or spine procedure. ADDENDUM: 07/04/24 1216 The contrast volume was 20 mL MultiHance. Venous Doppler Study 07/05/24 14:17 IMPRESSION: 1. Extensive deep vein thrombosis in right lower limb. I called this result to Elsy Tao. Chest X-Ray 07/17/24 18:28 IMPRESSION: 1. Airspace opacities at left lung base, consistent with atelectasis versus pneumonia. 2. Small left pleural effusion. Modified Barium Swallow 07/24/24 14:55 IMPRESSION: 1. Flash laryngeal penetration. 2. Please refer to the speech therapy report for recommendations. Head CT 07/29/24 13:50 IMPRESSION: 1. Normal aging brain. Abdomen/Pelvis CT 07/29/24 13:52 IMPRESSION: 1. 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 2. Small pleural effusions. Labs Labs: Laboratory Results - last 24 hr 08/02/24 08/02/24 08/02/24 11:37 13:22 16:50 WBC 12.2 H RBC 3.38 L Hgb 10.3 L Hct 33.6 L MCV 99.4 MCH 30.5 MCHC 30.7 L RDW 20.2 H Plt Count 235 MPV 10.8 H Immature Gran % (Auto) Neut % (Auto) Lymph % (Auto) Rush % (Auto) Eos % (Auto) Baso % (Auto) Lymph # (Auto) Rush # (Auto) Eos # (Auto) Baso # (Auto) Abs Immat Gran (auto) Absolute Neuts (auto) Absolute Nucleated RBC Nucleated RBC % Sodium 137 Potassium 3.7 Chloride 109 H Carbon Dioxide 22 Anion Gap 6 BUN 16 Creatinine 1.01 H Estim Creat Clear Calc 49 Estimated GFR 54 L Glucose 106 POC Capillary Glucose 77 85 Lactic Acid Calcium 8.0 L Magnesium Total Bilirubin 0.8 AST 25 ALT 17 Alkaline Phosphatase 154 H Total Protein 5.0 L Albumin 2.3 L 08/02/24 08/03/24 08/03/24 20:56 06:24 08:02 WBC 7.8 RBC 2.81 L Hgb 8.8 L Hct 27.5 L MCV 97.9 MCH 31.3 MCHC 32.0 RDW 20.1 H Plt Count 176 MPV 10.4 Immature Gran % (Auto) 0.4 Neut % (Auto) 73.3 H Lymph % (Auto) 15.0 L Rush % (Auto) 10.4 H Eos % (Auto) 0.6 Baso % (Auto) 0.3 Lymph # (Auto) 1.17 Rush # (Auto) 0.8 H Eos # (Auto) 0.1 Baso # (Auto) 0.0 Abs Immat Gran (auto) 0.03 Absolute Neuts (auto) 5.7 Absolute Nucleated RBC 0.000 Nucleated RBC % 0.0 Sodium 138 Potassium 3.5 Chloride 107 Carbon Dioxide 25 Anion Gap 6 BUN 15 Creatinine 1.01 H Estim Creat Clear Calc 49 Estimated GFR 54 L Glucose 85 POC Capillary Glucose 107 H 84 Lactic Acid 0.7 Calcium 8.0 L Magnesium 1.7 Total Bilirubin 0.7 AST 21 ALT 12 Alkaline Phosphatase 118 Total Protein 5.0 L Albumin 2.3 L Quality VTE Prophylaxis VTE prophylaxis: pharmacologic ordered
[2024-08-03 11:56] LABS: Glucose Point of Care 84 mg/dl (65-105)
[2024-08-03 14:00] VITALS: BP 148/66; PULSE 104; RESP 18; TEMP 36.9; O2SAT 99
[2024-08-03 16:20] LABS: Glucose Point of Care 81 mg/dl (65-105)
[2024-08-03] MEDS: AMINO ACIDS 5%/D15W/E-LYTES/CA 1,000 ML with MULTIVITAMINS-12 INJ VIAL 1 1.25 ML, MULTI... 40 ML IV CONT (18:27)
[2024-08-03] MEDS: FAT EMULSIONS IV 20% 250 ML 20.83 ML IVPB (18:28)
[2024-08-03 18:41] LABS: Basophils Percent Auto 0.2 % (0.2-1.2); Eosinophils Percent Auto 0.2 % (0-4.4); Hematocrit 26.6 % (37.0-47.0); Hemoglobin 8.6 g/dL (12.0-15.0); Immature Granulocyte Absolute 0.06 K/mm3 (0.00-0.031); Immature Granulocyte Percent A 0.6 % (0-0.5); Lymphocytes Absolute Auto 1.13 K/mm3 (0.9-3.2); Lymphocytes Percent Auto 10.8 % (18.3-44.2); Mean Corpuscular HGB Conc 32.3 g/dl (32-36); Mean Corpuscular Hemoglobin 31.3 pg (26-34); Mean Corpuscular Volume 96.7 fl (80-100); Mean Platelet Volume 10.6 fl (7.4-10.4); Monocytes Percent Auto 9.9 % (2.6-8.5); Neutrophils Absolute Auto 8.2 K/mm3 (1.3-6.7); Neutrophils Percent Auto 78.3 % (45.5-73.1); Platelet Count Result 161 k/mm3 (150-375); Red Blood Count 2.75 M/mm3 (4.2-5.4); Red Cell Distribution Width 20.2 % (11.5-14.5); White Blood Count 10.5 K/mm3 (4.5-10.0)
--- NOTE | 2024-08-03 18:47 | PC.NURSE ---
attempted to call report to [facility] @[phone]; this RN was told they would call back for report. Awaiting call back.
[2024-08-03 18:51] LABS: Iron 22 ug/dL (37-170)
[2024-08-03 18:52] LABS: Alanine Aminotransferase 11 U/L (6-35); Albumin Level 2.6 g/dL (3.5-5.1); Alkaline Phosphatase 106 U/L (38-126); Anion Gap 8 mmol/L (4-12); Aspartate Amino Transferase 18 U/L (14-36); Blood Urea Nitrogen 14 mg/dL (7-17); Calcium 8.3 mg/dL (8.4-10.2); Carbon Dioxide 22 mmol/L (22-30); Chloride 108 mmol/L (98-107); Estimated CRCL calculation 55 ml/min; Estimated Glomerular Filt Rate > 60; Glucose 81 mg/dL (65-110); Magnesium 1.8 mg/dL (1.6-2.3); Potassium 3.4 mmol/L (3.4-5.0); Sodium 138 mmol/L (137-145)
[2024-08-03 18:53] LABS: Partial Thromboplastin Time 20.6 Seconds (22.3-36.8)
[2024-08-03 19:04] LABS: Percent Iron Saturation 24 % (20-50)
[2024-08-03 19:26] LABS: Transferrin < 80 mg/dL (206-381)
--- NOTE | 2024-08-05 09:33 | PM.TDS ---
Transfer Discharge Sum: Prov Provider Date of admission: 07/03/24 10:46 Primary care physician: UNKNOWN,DOCTOR Admitting clinician: Patty Toledo MD Consults: 07/02/24 16:09 Consult to Physician Routine Comment: Consulting Provider: Atif Stone Reason for consultation: Seizure Has provider been notified: Yes 07/05/24 Care Coordination Consult Routine Reason for Consult:: Other Additional Comments: New CVA dx, concern will not be able to return home. PT/OT ordered. Consult to Physician Routine Comment: spoke with Jennifer in the office @[phone](,[place]) Consulting Provider: Silverio Xavier inbound call center representative/MD group to consult: Urology Reason for consultation: Urinary retention - Failed voiding trial after CVA Has provider been notified: Yes 07/10/24 Consult to Physician Routine Comment: Called office and notified them of consult Consulting Provider: Cody St Reason for consultation: IVC filter placement Has provider been notified: Yes 07/21/24 16:02 Consult to Physician Routine Comment: Spoke to 07/21 [phone] ([facility]) Consulting Provider: Morales Collins inbound call center representative/ group to consult: GI Reason for consultation: To consider fecal microbiota transplantation Has provider been notified: Yes 07/28/24 17:48 Consult to Physician Routine Comment: per MD notes, Dr. Stone already following Consulting Provider: Atif Stone inbound call center representative/ group to consult: Neurology Reason for consultation: Seizure Has provider been notified: Yes 07/29/24 Care Coordination Consult Routine Reason for Consult:: Hospice Referral 07/29/24 16:29 Consult to Physician Routine Comment: Spoke to office @0018 07/30 us Consulting Provider: Pratik Bunch inbound call center representative/ group to consult: Surgery Called exchange @[phone] they stated the only option to page the doctor is to page them that it is a medically emergent situation that requires the attention of a physician now Charge nurse and camera systems engineer decided to wait till 07/30/24 to call office since it is not a medically urgent situation. (,) Reason for consultation: Diverticulitis of descending colon with fistula to a worsened small absces Has provider been notified: Yes 08/03/24 15:23 Consult to Dietitian Routine Reason for Consult:: TPN DS: Admitting Diagnosis Discharge Date 08/03/24 Admitting Diagnosis Altered mental status. Transfer Discharge Sum: Med Medications Active and Home Medications: Home Medications esomeprazole magnesium 40 mg capsule,delayed release (Nexium) 1 cap PO 2XD 11/23/21 [History Confirmed 07/02/24] levothyroxine 75 mcg tablet (Synthroid) 1 tablet PO DAILY 11/23/21 [History Confirmed 07/02/24] metoprolol tartrate 50 mg tablet (Lopressor) 1 tablet PO BID 11/23/21 [History Confirmed 07/02/24] montelukast 10 mg tablet (Singulair) 1 tablet PO HS 11/23/21 [History Confirmed 07/02/24] trazodone 100 mg tablet 100 mg PO HS 11/23/21 [History Confirmed 07/02/24] meclizine 12.5 mg tablet 12.5 mg PO TID PRN dizziness #60 tabs 05/18/24 [Rx Confirmed 07/02/24] potassium chloride 10 mEq tablet,extended release (Klor-Con) 1 tablet PO DAILY #30 tabs 05/18/24 [Rx Confirmed 07/02/24] alprazolam 1 mg tablet 1 mg PO QID PRN anxiety #5 tabs 06/28/24 [Rx Confirmed 07/02/24] fidaxomicin 200 mg tablet (Dificid) 200 mg PO Q12HR #27 tabs 06/28/24 [Rx Confirmed 07/02/24] folic acid 1 mg tablet 1 mg PO DAILY #30 tabs 06/28/24 [Rx Confirmed 07/02/24] tramadol 50 mg tablet 50 mg PO DAILY PRN pain #5 tabs 06/28/24 [Rx Confirmed 07/02/24] tramadol 50 mg tablet 100 mg (2 x 50 mg) PO HS PRN pain #5 tabs 06/28/24 [Rx Confirmed 07/02/24] bisacodyl 10 mg rectal suppository 10 mg RECTAL DAILY PRN constipation 07/02/24 [History Confirmed 07/02/24] cyanocobalamin (vitamin B-12) 1,000 mcg tablet (Vitamin B-12) 1,000 mcg PO DAILY 07/02/24 [History Confirmed 07/02/24] levofloxacin 750 mg tablet 750 mg PO DAILY 07/02/24 [History Confirmed 07/02/24] magnesium citrate (Citrate of Magnesia oral) 296 ml PO DAILY PRN constipation 07/02/24 [History Confirmed 07/02/24] magnesium hydroxide 400 mg/5 mL oral suspension (Dulcolax (magnesium hydroxide)) 30 ml PO HS PRN constipation 07/02/24 [History Confirmed 07/02/24] metronidazole 500 mg tablet 500 mg PO TID 07/02/24 [History Confirmed 07/02/24] olmesartan 20 mg tablet (Benicar) 40 mg PO DAILY 07/02/24 [History Confirmed 07/02/24] sodium phosphates 19 gram-7 gram/118 mL enema (Enema) 118 ml RECTAL DAILY PRN constipation 07/02/24 [History Confirmed 07/02/24] vancomycin 125 mg capsule (Vancocin) 125 mg PO QID 07/02/24 [History Confirmed 07/02/24] Transfer Discharge Sum: Hosp Hospital Course Hospital course: This is a 73-year-old female with hypertension, chronic obstructive pulmonary disease, obstructive sleep apnea intolerant to CPAP, hypothyroidism, gout, anxiety, and Clostridium difficile diarrhea who presented to the emergency department via EMS from [facility] for evaluation of altered mental status. The patient is unable to provide history at this time due to her clinical condition of the following is obtained via a review of her EMR as well as information provided by her family members. She is known to the hospitalist service from a recent admission (06/18/2024 - 06/28/2024) at which time she presented with weakness and diarrhea. She was found to have diverticulitis with microperforation without abscess, E coli urinary tract infection, and C diff diarrhea. Overall she did well, was working with physical therapy, and was discharged to rehab. It is my understanding that she was in her usual state of health this morning ended about 11:30 she was found unresponsive and was only able to tell staff that she ?hurt all over.? At baseline she is alert and oriented x4 and there were no reports of fever or falls. In the ED she had a witnessed seizure for which she was given lorazepam 2 mg and levetiracetam 3000 mg loading dose. She is being admitted in this setting for close monitoring and further evaluation. She has no history of seizures. Patient was managed for recurrent C diff, due to multiple past episodes [facility] was contacted for Fecal transplant, patient was accepted and eventually transferred for fecal transplant. Also managed for Seizure neurology was consulted and patient was placed on Keppra 500mg bid and no more seizure episodes. CT AP showed abscess with fistula, discussed this findings with provided [facility] and patient transferred over for higher level of care. Patient was stable on transsfer. Conitnue care at [facility]. Time Spent with Patient Time attestation: Total time spent providing and/or coordinating transfer services:
== END 2024-08-03 08:30 | disposition short-term general hospital (02) | DRG 64 ==
LOC: ANHED 16:08 → ANHIMU 17:19 → ANH3MEDSUR 07-12 18:52
PROVIDERS: Family Medicine; General Practice; Nurse Practitioner Acute Care; Nurse Practitioner Adult Health; Nurse Practitioner Family; Admitting Provider Internal Medicine; Emergency Provider Preventive Medicine Aerospace Medicine; Visit Provider Internal Medicine
DX: I63.9 Cerebral infarction, unspecified (principal); J18.9 Pneumonia, unspecified organism; A04.71 Enterocolitis due to Clostridium difficile, recurrent; F05 Delirium due to known physiological condition; K57.20 Diverticulitis of large intestine with perforation and abscess without bleeding; I82.412 Acute embolism and thrombosis of left femoral vein; I82.432 Acute embolism and thrombosis of left popliteal vein; I82.452 Acute embolism and thrombosis of left peroneal vein; I82.442 Acute embolism and thrombosis of left tibial vein; K63.2 Fistula of intestine; R56.9 Unspecified convulsions; J44.9 Chronic obstructive pulmonary disease, unspecified; G47.33 Obstructive sleep apnea (adult) (pediatric); E03.9 Hypothyroidism, unspecified; F41.9 Anxiety disorder, unspecified; M10.9 Gout, unspecified; I12.9 Hypertensive chronic kidney disease with stage 1 through stage 4 chronic kidney disease, or unspecified chronic kidney disease; N18.32 Chronic kidney disease, stage 3b; D53.1 Other megaloblastic anemias, not elsewhere classified; K44.9 Diaphragmatic hernia without obstruction or gangrene; J10.1 Influenza due to other identified influenza virus with other respiratory manifestations; E86.0 Dehydration; R00.0 Tachycardia, unspecified; R19.5 Other fecal abnormalities; Z66 Do not resuscitate; R33.9 Retention of urine, unspecified; E87.6 Hypokalemia; Z90.711 Acquired absence of uterus with remaining cervical stump; Z90.49 Acquired absence of other specified parts of digestive tract; E66.9 Obesity, unspecified; Z68.34 Body mass index [BMI] 34.0-34.9, adult; D63.1 Anemia in chronic kidney disease; R13.10 Dysphagia, unspecified
CPT/HCPCS: 36415; 36430; 36569; 70450; 70553; 71045; 74176; 74177; 80048; 80053; 80143; 80179; 80307; 81001; 82077; 82140; 82274; 82607; 82728; 82948; 83540; 83550; 83605; 83735; 84100; 84132; 84145; 84466; 85014; 85018; 85025; 85027; 85610; 85730; 86850; 86900; 86901; 86923; 87040; 87086; 87637; 92611; 93005; 93306; 93970; 94640; 95816; 96361; 96365; 96366; 96367; 96368; 96375; 97110; 97162; 97166; 97530; 97535; 99285; A9270; A9577; C1751; G0378; J0456; J0692; J0696; J1644; J1650; J1940; J1953; J2003; J2060; J2405; J2470; J3370; J3475; J3480; J7030; J7040; J7050; J7070; P9016; P9047; Q9967